=== PATIENT | male | born 1960 | race African-American/Black ===

== ENCOUNTER 2018-07-14 10:05 | Inpatient (IN) | payer MEDICAID ==
[2018-07-14] VITALS: BP 113/48
[~2018-07-14] VITALS: Ht 182.9 cm; Wt 83.9 kg
[~2018-07-14 10:05] MED LIST: AMIN30LI2 GT; ATEN25TA GT; DOCU100C36 GT; FOLI0.8T23 GT; NUT.237L67 GT; TRAM50TA2 GT
--- NOTE | 2018-07-14 10:16 | NUR ---
SOB ONSET 30 MINUTES INTO HEMO DIALYSIS. PT NON VERBAL, EYES OPEN, TROUBLE BREATHING & USING ACCESSORY MUSCLES. PT SEEN & EVAL'D BY DR. DE LEON. CONNECTED TO VENT RIGHT AWAY BY RT. PLACED ON UNDERWEAR FINISHER, ST & WILL CONT TO MONITOR.
[2018-07-14 10:28] LABS: BASOPHILS # (AUTO) 0.1 /CMM (0.0-0.2); BASOPHILS % (AUTO) 0.3 % (0.0-2.0); HEMATOCRIT 30 % (39-51); HEMOGLOBIN 9.4 g/dL (13.5-17.5); LYMPHOCYTES # (AUTO) 0.7 /CMM (0.8-4.8); LYMPHOCYTES % (AUTO) 2.3 % (20.0-44.0); MEAN CORPUSCULAR HGB CONC 31 g/dl (31.0-36.0); MEAN CORPUSCULAR VOLUME 93 fL (80-96); MONOCYTES # (AUTO) 3.1 /CMM (0.1-1.30); MONOCYTES % (AUTO) 10.6 % (2.0-12.0); NEUTROPHILS # (AUTO) 25.4 /CMM (1.8-8.9); NEUTROPHILS % (AUTO) 86.8 % (43.0-81.0); PLATELET COUNT (AUTO) 362 /CMM (150-450); RED BLOOD CELL COUNT(AUTO) 3.24 MIL/uL (4.5-6.0); WHITE BLOOD COUNT (AUTO) 29.3 K/uL (4.3-11.0)
[2018-07-14] MEDS ORDERED: VANCOMYCIN 1 GM in IV D5W 250 ML IV ONE (10:30)
[2018-07-14] MEDS ORDERED: ACETAMINOPHEN 650 MG/SUPP.RECT RC ONE ×2 (10:30)
[2018-07-14] MEDS ORDERED: PIPERACILLIN /TAZOBACTAM 3.375 G in IV D5W 50 ML IV ONE (10:30)
[2018-07-14] MEDS ORDERED: ALBUTEROL FS 2.5 MG/3 ML VIAL.NEB CONTNEB ONE (10:30)
[2018-07-14] MEDS ORDERED: BENZOIN COMPOUND TINCT 60 ML BOTTLE ONE (10:32)
[2018-07-14 10:35] LABS: CALCIUM, SERUM 8.6 mg/dL (8.5-10.1); CARBON DIOXIDE 21 mmol/L (21-32); CHLORIDE 99 mmol/L (98-107); CREATININE 5.2 mg/dL (0.6-1.3); GLUCOSE 122 mg/dL (74-106); SODIUM SERUM 133 mmol/L (136-145); UREA NITROGEN, BLOOD 76 mg/dL (7-18)
[2018-07-14 10:39] VITALS: BP 129/67
[2018-07-14 10:42] LABS: ALANINE AMINOTRANSFERASE 40 U/L (12-78); ALBUMIN 2.4 g/dL (3.4-5.0); ALKALINE PHOSPHATASE 103 U/L (46-116); ASPARTATE AMINOTRANSFERASE 24 U/L (15-37); BILIRUBIN,DIRECT 0.1 mg/dL (0.0-0.2); BILIRUBIN,TOTAL 0.4 mg/dL (0.2-1.0); TOTAL PROTEIN, SERUM 7.7 g/dL (6.4-8.2)
--- NOTE | 2018-07-14 10:42 | NUR ---
PT REC'D TRACHED VIA PORTEX 8 ON BVM @ 15LPM, [facility] ON NOTED SETTINGS PER TRANSPORT RT. NO RESP DISTRESS OR SOB NOTED. SX'D FOR SCANT AMT OF CLEAR SECRETIONS. TRACH PATENT AND SECURED. ALARMS ARE SET AND AUDIBLE. VENT PLUGGED INTO RED OUTLET. AMBU BAG BEDSIDE. WILL CONTINUE TO MONITOR Addendum: 07/14/18 at 1046 by EFRAIN PATTERSON RT Amended: Links added.
--- NOTE | 2018-07-14 10:45 | NUR ---
PT GETTING BREATHING TX, PT HAYDEE WELL. NO RESP DISTRESS NOTED @ THIS TIME.
[2018-07-14] MEDS ORDERED: ALBUTEROL FS 2.5 MG/3 ML VIAL.NEB ONE (10:47)
--- NOTE | 2018-07-14 10:48 | NUR ---
XRAY AT BEDSIDE
--- NOTE | 2018-07-14 11:01 | NUR ---
PAGED RUBENS [phone]
--- NOTE | 2018-07-14 11:03 | NUR ---
DR DE LEON ON PHONE WITH DR ART FOR ADMISSION
--- NOTE | 2018-07-14 11:19 | NUR ---
PT GETTING TREATED FOR C. DIFF, NO DIARRHEA @ THIS TIME.
--- NOTE | 2018-07-14 11:26 | NUR ---
RM 118-1 TELE
[2018-07-14 11:35] VITALS: BP 120/72
[2018-07-14] MEDS ORDERED: BLOO-668 IN (11:37)
[2018-07-14] MEDS ORDERED: OMEP40CA37 GT (11:37)
[2018-07-14] MEDS ORDERED: SEVE0.8P3 GT (11:37)
[2018-07-14] MEDS ORDERED: SUCR1ORA GT (11:37)
[2018-07-14] MEDS ORDERED: POTA20LI4 GT (11:37)
[2018-07-14] MEDS ORDERED: HYDR-4075 PO (11:37)
[2018-07-14] MEDS ORDERED: IPRA3AMP23 IH ×2 (11:37)
[2018-07-14] MEDS ORDERED: ACET-868 GT (11:37)
[2018-07-14] MEDS ORDERED: ACID1TAB12 GT (11:37)
[2018-07-14] MEDS ORDERED: METO5SOL GT (11:37)
[2018-07-14] MEDS ORDERED: INSU100V3 SQ (11:37)
--- NOTE | 2018-07-14 11:47 | NUR ---
PT RESTING COMFORTABLY, RR EVEN & UNLABORED, NO RESP DISTRESS NOTED @ THIS TIME. WILL CONT TO MONITOR.
--- NOTE | 2018-07-14 12:12 | NUR ---
PAGED DR ART, DR LÓPEZ NURSE SUBSTANCE ABUSE
--- NOTE | 2018-07-14 12:30 | NUR ---
REPORT GIVEN TO LON SANDERS FOR CONT OF CARE.
[2018-07-14] MEDS ORDERED: FEE PK DOSING 1 MIN EA MC ONE (13:24)
[2018-07-14 13:30] VITALS: BP 105/60
--- NOTE | 2018-07-14 13:30 | NUR ---
RN NOTE PT ARRIVED TO [facility] ON BED, ON MECH VENT, ON TELEMETRY SINUS TACHYCARDIA, 98, NO VERBAL RESPONSE, OPENS EYES, DOES NOT TRACK, ABLE SQUEEZE WITH RIGHT HAND, LEFT SIDE IS FLACCID, TRACH PORTEX 8, IN PLACE, ON MECH VENT, G TUBE INTACT, R CHEST WALL HD CATHETER, IV IN R HAND, INTACT, CLEAN AND DRY. PT HAS WOUND ON SACRUM, AND L LATERAL FOOT DTI, SAFETY MEASURES AND ISOLATION PRECAUTIONS IN PLACE, CALL LIGHT WITHIN REACH, VS STABLE EXCEPT FOR FEVER 100.5. COOLING MEASURES INITIATED.
[2018-07-14] MEDS ORDERED: NEPRO 1,000 ML BOTTLE GT PRN (14:30)
[2018-07-14] MEDS ORDERED: IPRATROPIUM NEB FS 0.5 MG/2.5 ML AMPUL.NEB NEB PRN (15:00)
[2018-07-14] MEDS: VIT B CMPLX 3/FA/VIT C/BIOTIN 1 TAB TABLET GT SCH (15:14)
[2018-07-14] MEDS: ACETAMINOPHEN 650 MG/20.3 ML UDC GT PRN (15:14)
[2018-07-14 16:00] VITALS: BP 101/63
[2018-07-14] MEDS: ATENOLOL 25 MG TABLET GT SCH (17:00)
[2018-07-14] MEDS: DOCUSATE SODIUM LIQ 100 MG/10 ML UDC GT SCH (17:24)
[2018-07-14] MEDS: SEVELAMER CARBONATE 0.8 GM POWD.PACK GT SCH (17:24)
[2018-07-14] MEDS: TRAMADOL HCL 50 MG TABLET GT SCH (17:24)
[2018-07-14] MEDS: BLOOD SUGAR DIAGNOSTIC 1 EACH STRIP IN SCH (17:25)
[2018-07-14] MEDS: NEPRO 1,000 ML BOTTLE GT PRN (17:25)
[2018-07-14] MEDS: PROSTAT (PYXIS) 30 ML UDC GT SCH (17:30)
[2018-07-14] MEDS ORDERED: ALBUTEROL 2.5 MG/3 ML NEB PRN (19:30)
[2018-07-14 20:00] VITALS: BP 100/54
[2018-07-14] MEDS: IPRATROPIUM NEB FS 0.5 MG/2.5 ML AMPUL.NEB NEB SCH (20:31)
[2018-07-14] MEDS: ALBUTEROL FS 2.5 MG/3 ML VIAL.NEB NEB SCH (20:31)
[2018-07-14] MEDS ORDERED: PIPERACILLIN /TAZOBACTAM 2.25 G in IV D5W 50 ML IV SCH (21:00)
[2018-07-14] MEDS ORDERED: METOCLOPRAMIDE HCL 5 MG/5 ML UDC GT SCH (21:00)
--- NOTE | 2018-07-14 22:00 | NUR ---
sylvia rn notes pts was turned and reposition , routined care rendered , suction secretion done and prn will continue to monitor pts..
[2018-07-14] MEDS: ACIDOPHILUS/BULGARICUS 1 EACH TAB.CHEW GT SCH (22:12)
[2018-07-14] MEDS: SUCRALFATE 1 G/10 ML UDC GT SCH (22:12)
[2018-07-14] MEDS: MEROPENEM 500 MG in IV NS 0.9% 50 ML IV SCH (22:12)
[2018-07-14] MEDS: METRONIDAZOLE 500 MG TABLET PO SCH (22:13)
[2018-07-14] MEDS: PANTOPRAZOLE 40 MG/PACK PACK GT SCH (22:13)
[2018-07-14] MEDS ORDERED: METOCLOPRAMIDE HCL 10 MG/10 ML UDC ONE (22:41)
--- NOTE | 2018-07-14 22:51 | NUR ---
reglan 5mg unable to scan d/t reglan 5mg/5ml is out of stock in the onnicel override reglan 10mg/10ml , waste 5mg
[2018-07-15] VITALS: BP 113/48
--- NOTE | 2018-07-15 | NUR ---
sylvia rn notes blood sugar for 12mn is 112mg /dl no coverage given per sliding scale.
[2018-07-15] MEDS: BLOOD SUGAR DIAGNOSTIC 1 EACH STRIP IN SCH ×4 (00:21→22:57)
[2018-07-15] MEDS: INSULIN REGULAR, HUMAN 100 UNIT/ML 3 ML VIAL SQ PRN ×3 (00:23→12:49)
[2018-07-15] MEDS: ACETAMINOPHEN 650 MG/20.3 ML UDC GT PRN ×4 (01:34→22:41)
[2018-07-15] MEDS: IPRATROPIUM NEB FS 0.5 MG/2.5 ML AMPUL.NEB NEB SCH ×5 (02:03→19:57)
[2018-07-15] MEDS: ALBUTEROL FS 2.5 MG/3 ML VIAL.NEB NEB SCH ×5 (02:03→19:57)
--- NOTE | 2018-07-15 03:12 | NUR ---
sylvia rn notes received pts in bed with eye opening , on vent dependent with ac setting will tolerated , hob elevated for aspiration precaution .suction secretion done q 2hrs and prn no sob no distress noted , breathing even and unlabored, v/s stable afebrile ,due meds given as ordered , with gt feeding nephro at 50cc/hr no residual noted at this time, all due meds given as ordered, turned and repositioned q 2 hrs and prn v/s stable and afebrile. will continue to monitor -pts. kept pts clean dry and comfortable.
[2018-07-15 04:00] VITALS: BP 107/54
[2018-07-15] MEDS: METRONIDAZOLE 500 MG TABLET PO SCH ×3 (05:05→21:10)
--- NOTE | 2018-07-15 06:00 | NUR ---
sylvia rn notes blood sugar for 6am is 86mg/dl no coverage given per sliding scale.
--- NOTE | 2018-07-15 06:37 | NUR ---
sylvia rn notes pts in bed responsive remains on vent AC settings well tolerated by pts no sob no distress noted gt feeding well tolerated no residual noted v/s stable afebrile will endorse to rn day shift for continuity of care v/s stable afebrile pts is currenty on dialysis tx, hd nurse at bedside.
--- NOTE | 2018-07-15 07:15 | NUR ---
RIMMA RN AM NOTES PT IN BED, WITH PORTEX 8 TO MECHANICAL VENTILATION, SETTINGS ORDERED, O2 SAT 100%, BREATHING EVEN AND UNLABORED, ST WITH HR 114 ON MONITOR, NO SIGNS OF PAIN OR DISCOMFORT AT THIS TIME, RIGHT HAND G22 AND RIGHT CHEST LEILANI CATH, CDI DRESSING, BOTH SITES CLEAR, ONGOING HD, WITH NEPHRO 65ML/HR, GT PLACEMENT CHECKED, 0 RESIDUAL, BEDBOUND, NEEDS ASSIST IN TURNING AND REPOSITIONING Q2HRS, SEE NURSING FLOW SHEET FOR SKIN ISSUES, CALL LIGHT WITHIN REACH, BED LOCKED AND LOW, SRUX2, WILL CONTINUE TO MONITOR.
[2018-07-15 07:31] LABS: BASOPHILS % (AUTO) 0.2 % (0.0-2.0); HEMATOCRIT 28 % (39-51); HEMOGLOBIN 8.7 g/dL (13.5-17.5); LYMPHOCYTES % (AUTO) 4.1 % (20.0-44.0); MEAN CORPUSCULAR HGB CONC 32 g/dl (31.0-36.0); MEAN CORPUSCULAR VOLUME 91 fL (80-96); MONOCYTES # (AUTO) 3.4 /CMM (0.1-1.30); MONOCYTES % (AUTO) 13.5 % (2.0-12.0); NEUTROPHILS # (AUTO) 20.8 /CMM (1.8-8.9); NEUTROPHILS % (AUTO) 82.2 % (43.0-81.0); PLATELET COUNT (AUTO) 323 /CMM (150-450); RED BLOOD CELL COUNT(AUTO) 3.01 MIL/uL (4.5-6.0); WHITE BLOOD COUNT (AUTO) 25.2 K/uL (4.3-11.0)
[2018-07-15 08:00] VITALS: BP 112/59
[2018-07-15 08:02] LABS: CREATININE 5.3 mg/dL (0.6-1.3); POTASSIUM 3.6 mmol/L (3.5-5.1)
--- NOTE | 2018-07-15 08:10 | NUR ---
RT NOTE: RESPIRATORY TREATMENT DEFERRED DUE TO ELEVATED HR.
[2018-07-15] MEDS: SEVELAMER CARBONATE 0.8 GM POWD.PACK GT SCH ×3 (08:39→17:38)
[2018-07-15] MEDS: DOCUSATE SODIUM LIQ 100 MG/10 ML UDC GT SCH ×2 (08:39→17:00)
[2018-07-15] MEDS: ACIDOPHILUS/BULGARICUS 1 EACH TAB.CHEW GT SCH ×2 (08:39→21:09)
[2018-07-15] MEDS: MEROPENEM 500 MG in IV NS 0.9% 50 ML IV SCH ×2 (08:39→20:09)
[2018-07-15] MEDS: SUCRALFATE 1 G/10 ML UDC GT SCH ×2 (08:39→21:09)
[2018-07-15] MEDS: TRAMADOL HCL 50 MG TABLET GT SCH ×2 (08:40→17:38)
[2018-07-15] MEDS: PANTOPRAZOLE 40 MG/PACK PACK GT SCH ×2 (08:40→21:10)
[2018-07-15] MEDS ORDERED: METOCLOPRAMIDE HCL 10 MG/10 ML UDC GT SCH (09:00)
[2018-07-15] MEDS: PROSTAT (PYXIS) 30 ML UDC GT SCH ×2 (10:19→17:41)
[2018-07-15] MEDS: METOCLOPRAMIDE HCL 10 MG/10 ML UDC GT SCH ×2 (10:46→21:10)
--- NOTE | 2018-07-15 11:07 | NUR ---
RIMMA RN NOTES DR. RUTLEDGE NOTIFIED ABOUT BLOOD CULTURE POSITIVE FOR GRAM NEGATIVE RODS. ALSO ABOUT ELEVATED TEMPERATURE AT 102 DEG. PER MD TO APPLY COOLING MEASURES.
--- NOTE | 2018-07-15 11:30 | NUR ---
RIMMA RN NOTES ACCUCHECK DONE. BS 145 MG/DL, 2UNITS HUM R GIVEN PER SS.
[2018-07-15 12:00] VITALS: BP 91/49
[2018-07-15] MEDS ORDERED: IV NS 0.9% 250 ML BAG IV ONE (12:00)
[2018-07-15] MEDS ORDERED: DEXTROSE 50%-WATER 50 ML DISP.SYRIN IV PRN (12:30)
[2018-07-15] MEDS ORDERED: VANCOMYCIN 1 GM in IV D5W 250 ML IV ONE (13:00)
[2018-07-15] MEDS: POTASSIUM CHLORIDE 20 MEQ POWDER PACKET GT SCH (13:14)
[2018-07-15] MEDS: VIT B CMPLX 3/FA/VIT C/BIOTIN 1 TAB TABLET GT SCH (13:15)
[2018-07-15] MEDS: DAKINS QUARTER STRENGTH (0.125%) 480 ML BOTTLE TOP SCH ×2 (14:40→21:10)
[2018-07-15 16:00] VITALS: BP_SYST 108; BP_SYST 91; BP_DIAS 51; BP_DIAS 71
[2018-07-15] MEDS ORDERED: VANCOMYCIN 500 MG in IV D5W 100 ML IV PRN (16:00)
[2018-07-15] MEDS ORDERED: IV NS 0.9% 500 ML IV ONE (16:30)
[2018-07-15] MEDS: ATENOLOL 25 MG TABLET GT SCH (17:00)
--- NOTE | 2018-07-15 17:14 | NUR ---
[facility]IMMA RN NOTES ACCUCHECK DONE, BS 129 MG/DL, NO INSULIN COVERAGE GIVEN.
[2018-07-15] MEDS ORDERED: BLOOD SUGAR DIAGNOSTIC 1 EACH STRIP IN SCH ×2 (17:30→22:00)
--- NOTE | 2018-07-15 17:40 | NUR ---
PT RECEIVED ON MECHANICAL VENT. NO RESP DISTRESS OR SOB NOTED AT THIS TIME. SUCTIONED PT: MOD THICK SOMMER SECRETIONS. BREATHING TX GIVEN, NO ADVERSE REACTIONS NOTED. VENT IS PLUGGED INTO RED OUTLET. VENT ALARMS ARE ON AND AUDIBLE. AMBU BAG IS AT BEDSIDE. WILL CONT TO MONITOR PT. Addendum: 07/15/18 at 1741 by MICHELLE BLANCO RT Amended: Links added.
--- NOTE | 2018-07-15 18:43 | NUR ---
[facility] RN CLOSING NOTES PT IN BED, WITH PORTEX 8 TO MECHANICAL VENTILATION, SETTINGS ORDERED, O2 SAT 100%, BREATHING EVEN AND UNLABORED, ST WITH HR 106 ON MONITOR, NO SIGNS OF PAIN OR DISCOMFORT AT THIS TIME, RIGHT HAND G22 AND RIGHT CHEST LEILANI CATH, CDI DRESSING, BOTH SITES CLEAR, ONGOING HD, WITH NEPHRO 65ML/HR, GT PLACEMENT CHECKED, 0 RESIDUAL, BEDBOUND, TURNED AND REPOSITIONED Q2HRS, PM CARE DONE, CALL LIGHT WITHIN REACH, BED LOCKED AND LOW, SRUX2, WILL ENDORSE TO NEXT SHIFT FOR DENNIS.
--- NOTE | 2018-07-15 19:45 | NUR ---
RIMMA/TECHNICAL ARCHITECT RECEIVED REPORT FROM DAY NURSE. SEE FLOWSHEET FOR ASSESSMENT AND SKIN ISSUES WHICH ARE ADDRESSED HERE ALONG WITH THE INTERVENTIONS AND EXPECTED OUTCOMES. PT WAS TURNED AND REPOSITIONED FOR COMFORT AND CARE, WILL CONTINUE TO MONITOR THIS PT. NO ACUTE DISTRESS SEEN AT THIS TIME.
[2018-07-15 20:00] VITALS: BP 106/53
--- NOTE | 2018-07-15 22:00 | NUR ---
[facility]MA/ECONOMIC ANALYST FLACC SCALE RATED PAIN AT 4/10, GAVE TYLENOL VIA G/TUBE. PT WAS TURNED AND REPOSITIONED FOR COMFORT AND CARE. WILL CONTINUE TO MONITOR THIS PT.
[2018-07-15] MEDS: NEPRO 1,000 ML BOTTLE GT PRN (22:57)
--- NOTE | 2018-07-15 23:20 | NUR ---
[facility]/METAL PAINTER PT'S BLOOD SUGAR IS 112, THERE IS NO COVERAGE FOR THIS PER SLIDING SCALE AND MD ORDERS. WILL CONTINUE TO MONITOR THE SUGARS ORDERED BY MD. PT WAS THEN TURNED AND REPOSITIONED FOR COMFORT AND CARE. WILL CONTINUE TO MONITOR THIS PT.
[2018-07-16] VITALS: BP_SYST 111; BP_SYST 113; BP_DIAS 57; BP_DIAS 65
[2018-07-16] MEDS: ALBUTEROL FS 2.5 MG/3 ML VIAL.NEB NEB SCH ×4 (00:47→19:27)
[2018-07-16] MEDS: IPRATROPIUM NEB FS 0.5 MG/2.5 ML AMPUL.NEB NEB SCH ×4 (00:48→19:27)
--- NOTE | 2018-07-16 02:00 | NUR ---
[facility]/LEAD GENERATION REPRESENTATIVE PT WAS GIVEN AM CARE AT THIS TIME ALONG WITH ORAL CARE. PT REMAINS ON CURRENT VENT SETTINGS WITH SATURATION AT 98-100%. PT WAS TURNED AND REPOSITIONED FOR COMFORT AND CARE. WILL CONTINUE TO MONITOR THIS PT. PT APPEARS TO BE RESTING COMFORTABLE WITH NO ACUTE DISTRESS SEEN AT THIS TIME.
[2018-07-16 04:00] VITALS: BP 109/56
[2018-07-16] MEDS: METRONIDAZOLE 500 MG TABLET PO SCH ×3 (04:29→20:31)
[2018-07-16] MEDS: BLOOD SUGAR DIAGNOSTIC 1 EACH STRIP IN SCH ×4 (05:10→23:54)
--- NOTE | 2018-07-16 05:17 | NUR ---
[facility]/SALES AND MERCHANDISING ASSOCIATE PT'S BLOOD SUGAR IS 91, THERE IS NO COVERAGE GOT THIS PER SLIDING SCALE AND MD ORDERS. WILL CONTINUE TO MONITOR THE SUGARS ORDERED BY MD. PT WAS THEN TURNED AND REPOSITIONED FOR COMFORT AND CARE.
[2018-07-16] MEDS: ACETAMINOPHEN 650 MG/20.3 ML UDC GT PRN (06:44)
--- NOTE | 2018-07-16 06:45 | NUR ---
[facility]/INSURANCE MANAGER FLACC SCALE RATED PAIN AT 4/10, GAVE TYLENOL VIA G/TUBE. ALSO PT'S AM LABS WERE DRAWN, AWAIT FOR ANY ABNORMAL RESULTS. PT WAS TURNED AND REPOSITIONED FOR COMFORT AND CARE.
[2018-07-16 07:26] LABS: BASOPHILS % (AUTO) 0.1 % (0.0-2.0); EOSINOPHILS % (AUTO) 0.3 % (0.0-6.0); HEMATOCRIT 25 % (39-51); LYMPHOCYTES # (AUTO) 1.1 /CMM (0.8-4.8); LYMPHOCYTES % (AUTO) 5.5 % (20.0-44.0); MEAN CORPUSCULAR HGB CONC 32 g/dl (31.0-36.0); MEAN CORPUSCULAR VOLUME 92 fL (80-96); MONOCYTES % (AUTO) 15.2 % (2.0-12.0); NEUTROPHILS # (AUTO) 15.5 /CMM (1.8-8.9); NEUTROPHILS % (AUTO) 78.9 % (43.0-81.0); PLATELET COUNT (AUTO) 328 /CMM (150-450); RED BLOOD CELL COUNT(AUTO) 2.76 MIL/uL (4.5-6.0); WHITE BLOOD COUNT (AUTO) 19.6 K/uL (4.3-11.0)
--- NOTE | 2018-07-16 07:30 | NUR ---
[facility]IMMA RN AM NOTES PT IN BED, WITH PORTEX 8 TO MECHANICAL VENTILATION, SETTINGS ORDERED, O2 SAT 100%, BREATHING EVEN AND UNLABORED, ST WITH HR 114 ON MONITOR, NO SIGNS OF PAIN OR DISCOMFORT AT THIS TIME, RIGHT HAND G22 AND RIGHT CHEST LEILANI CATH, CDI DRESSING, BOTH SITES CLEAR, ONGOING HD, WITH NEPHRO 65ML/HR, GT PLACEMENT CHECKED, 0 RESIDUAL, BEDBOUND, NEEDS ASSIST IN TURNING AND REPOSITIONING Q2HRS, SEE NURSING FLOW SHEET FOR SKIN ISSUES, CALL LIGHT WITHIN REACH, BED LOCKED AND LOW, SRUX2, WILL CONTINUE TO MONITOR. Addendum: 07/16/18 at 0956 by LUCILA PATEL RN SR WITH HR 98 ON MONITOR, NEPRO AT 50 ML/HR.
[2018-07-16 07:33] LABS: ALBUMIN 2.1 g/dL (3.4-5.0); BILIRUBIN,TOTAL 0.4 mg/dL (0.2-1.0); CALCIUM, SERUM 9.2 mg/dL (8.5-10.1); CREATININE 6.1 mg/dL (0.6-1.3); MAGNESIUM 2.9 mg/dL (1.8-2.4); PHOSPHORUS 2.4 mg/dL (2.5-4.9); POTASSIUM 3.8 mmol/L (3.5-5.1); TOTAL PROTEIN, SERUM 7.3 g/dL (6.4-8.2)
[2018-07-16 08:00] VITALS: BP 98/59
[2018-07-16] MEDS: MEROPENEM 500 MG in IV NS 0.9% 50 ML IV SCH ×2 (08:15→23:10)
[2018-07-16] MEDS: SUCRALFATE 1 G/10 ML UDC GT SCH ×2 (08:38→20:31)
[2018-07-16] MEDS: METOCLOPRAMIDE HCL 10 MG/10 ML UDC GT SCH ×2 (08:38→20:31)
[2018-07-16] MEDS: PANTOPRAZOLE 40 MG/PACK PACK GT SCH ×2 (08:39→20:31)
[2018-07-16] MEDS: ACIDOPHILUS/BULGARICUS 1 EACH TAB.CHEW GT SCH ×2 (08:39→20:31)
[2018-07-16] MEDS: SEVELAMER CARBONATE 0.8 GM POWD.PACK GT SCH ×3 (08:39→16:46)
[2018-07-16] MEDS: TRAMADOL HCL 50 MG TABLET GT SCH ×2 (08:39→16:46)
[2018-07-16] MEDS: DOCUSATE SODIUM LIQ 100 MG/10 ML UDC GT SCH ×2 (08:39→16:51)
[2018-07-16] MEDS: PROSTAT (PYXIS) 30 ML UDC GT SCH ×2 (08:43→16:51)
[2018-07-16] MEDS: DAKINS QUARTER STRENGTH (0.125%) 480 ML BOTTLE TOP SCH ×2 (08:45→23:11)
--- NOTE | 2018-07-16 09:30 | NUR ---
RN NOTES DUE MEDS GIVEN. DR. RUTLEDGE AWARE OF BUN LEVEL 86. NNO. BP REMAINS TO BE FLUCTUATING AND LOW AT 98/59.
[2018-07-16 09:54] LABS: LYMPHOCYTES % (MANUAL) 7 % (16-48); MONOCYTES % (MANUAL) 11 % (0-11.0); NEUTROPHILS % (MANUAL) 82 (42-76)
[2018-07-16 12:00] VITALS: BP 92/63
[2018-07-16] MEDS ORDERED: EPOETIN ALFA (10,000 UNIT) 10,000 UNIT/ML VIAL IV ONE (12:00)
--- NOTE | 2018-07-16 12:00 | NUR ---
RIMMA RN NOTES ACCUCHECK DONE, BS 111 MG/DL, NO INSULIN COVERAGE GIVEN.
[2018-07-16] MEDS: VIT B CMPLX 3/FA/VIT C/BIOTIN 1 TAB TABLET GT SCH (13:07)
[2018-07-16] MEDS: POTASSIUM CHLORIDE 20 MEQ POWDER PACKET GT SCH (13:07)
[2018-07-16] MEDS ORDERED: NEUTRA PHOS 1 POWD.PACKET PO ONE (15:30)
[2018-07-16 16:00] VITALS: BP_SYST 105; BP_SYST 92; BP_DIAS 63; BP_DIAS 66
[2018-07-16] MEDS: ATENOLOL 25 MG TABLET GT SCH (16:46)
[2018-07-16] MEDS: NEPRO 1,000 ML BOTTLE GT PRN (16:50)
--- NOTE | 2018-07-16 17:02 | NUR ---
[facility] RN NOTES ACCUCHECK DONE, BS 114 MG/DL, NO INSULIN COVERAGE GIVEN.
--- NOTE | 2018-07-16 17:46 | NUR ---
RIMMA RN NOTES DR. RAMOS INFORMED THAT DR. MCFARLANE SPOKE WITH THE PT'S SON SIXTO EARLIER RE J TUBE PLACEMENT. HOWEVER, PATIENT'S SON STILL WISHES TO SPEAK TO HER. CASE MANAGEMENT CORAZON NEGRO AWARE THAT PT'S SON SPOKE WITH DR. MCFARLANE.
--- NOTE | 2018-07-16 18:39 | NUR ---
RIMMA RN CLOSING NOTES PT IN BED, WITH PORTEX 8 TO MECHANICAL VENTILATION, SETTINGS ORDERED, O2 SAT 100%, BREATHING EVEN AND UNLABORED, SR TO ST. ON MONITOR, NO SIGNS OF PAIN OR DISCOMFORT AT THIS TIME, RIGHT HAND G22 AND RIGHT CHEST LEILANI CATH, CDI DRESSING, BOTH SITES CLEAR, ONGOING HD, WITH NEPHRO 50ML/HR, GT PLACEMENT CHECKED, 0 RESIDUAL, BEDBOUND, TURNED AND REPOSITIONED Q2HRS, PM CARE AND PRESCRIBED WOUND TREATMENT DONE, FLEXISEAL IN PLACE. CALL LIGHT WITHIN REACH, BED LOCKED AND LOW, SRUX2, WILL ENDORSE TO NEXT SHIFT FOR DENNIS.
--- NOTE | 2018-07-16 19:10 | NUR ---
TD/RN INITIAL NOTES RECEIVED PT IN BED, OBTUNDED. WITH INTACT PORTEX #8, TOLERATING VENT SETTINGS: AC 14; TV 550, FIO2 40, PEEP 5. NO SOB NOTED. SR HR 90S ON TELEMONITOR. GTUBE INTACT AND IN PLACED, WITH ONGOING GTF NEPRO AT 50 ML/HR, TOLERATING WELL. HOB ELEVATED. (R)CHEST WALL HD CATH INTACT AND PATENT. (+) LAV SHUNT. WITH INTACT AND PATENT G22 HEPLOCK. FLEXISEAL IN PLACED. HD NURSE ON FLOOR, PER DEE DEE (HD NURSE) PT IS FOR HD TONIGHT. SAFETY MEASURES IN PLACED. WILL CONT TO MONITOR
[2018-07-16 20:00] VITALS: BP 126/74
--- NOTE | 2018-07-16 20:30 | NUR ---
RN NOTES PT ON HD, HD NURSE DEE DEE AT BEDSIDE. DUE 1999 MERREM WILL BE ADMINISTERED AFTER HD
--- NOTE | 2018-07-16 20:59 | NUR ---
RT NOTE RECEIVED PATIENT TRACH ON PB 840 WITH NOTED VENT SETTINGS.INLINE HHN TREATMENT WAS GIVEN, NO ADVERSE REACTION NOTED.PRN SUCTION WAS DONE.TRACH TUBE PATENT AND SECURED. ALARMS ON AND AUDIBLE. WILL CONTINUE TO MONITOR PATIENT. Addendum: 07/16/18 at 2101 by SOHAIL BAUTISTA RT Amended: Links added.
[2018-07-16 22:17] LABS: OCCULT BLOOD STOOL NEGATIVE (NEGATIVE)
[2018-07-16] MEDS ORDERED: VANCOMYCIN 1 GM VIAL ONE (23:56)
[2018-07-17] VITALS: BP 118/71
[2018-07-17] MEDS: ALBUTEROL FS 2.5 MG/3 ML VIAL.NEB NEB SCH ×4 (01:24→19:22)
[2018-07-17] MEDS: IPRATROPIUM NEB FS 0.5 MG/2.5 ML AMPUL.NEB NEB SCH ×4 (01:24→19:22)
[2018-07-17 04:00] VITALS: BP 119/73
[2018-07-17] MEDS: METRONIDAZOLE 500 MG TABLET PO SCH ×3 (05:11→20:19)
[2018-07-17] MEDS: BLOOD SUGAR DIAGNOSTIC 1 EACH STRIP IN SCH ×4 (06:31→23:19)
[2018-07-17 06:35] LABS: BASOPHILS % (AUTO) 0.4 % (0.0-2.0); EOSINOPHILS % (AUTO) 0.8 % (0.0-6.0); HEMATOCRIT 29 % (39-51); HEMOGLOBIN 8.9 g/dL (13.5-17.5); LYMPHOCYTES # (AUTO) 1.2 /CMM (0.8-4.8); LYMPHOCYTES % (AUTO) 9.9 % (20.0-44.0); MEAN CORPUSCULAR HGB CONC 31 g/dl (31.0-36.0); MEAN CORPUSCULAR VOLUME 91 fL (80-96); MONOCYTES # (AUTO) 1.6 /CMM (0.1-1.30); MONOCYTES % (AUTO) 13.7 % (2.0-12.0); NEUTROPHILS # (AUTO) 8.9 /CMM (1.8-8.9); NEUTROPHILS % (AUTO) 75.2 % (43.0-81.0); PLATELET COUNT (AUTO) 362 /CMM (150-450); RED BLOOD CELL COUNT(AUTO) 3.15 MIL/uL (4.5-6.0); WHITE BLOOD COUNT (AUTO) 11.8 K/uL (4.3-11.0)
[2018-07-17 06:51] LABS: CALCIUM, SERUM 9.2 mg/dL (8.5-10.1); POTASSIUM 4.1 mmol/L (3.5-5.1)
--- NOTE | 2018-07-17 07:05 | NUR ---
RN NOTES RECEIVED PT ON BED, OBTUNDED. VENT/ TRACH DEPENDENT , TOLERATING CURRENT VENT SETTING WELL, NO DISTRESS NOTED, PORTEX #8, TOLERATING VENT SETTINGS: AC 14; TV 550, FIO2 40, PEEP 5. ON TELE, ST HR IN 110' , FLEXISEAL DRAINING TO GRAVITY WITH LIGHT BROWN LOOSE STOOL , GTUBE INTACT AND IN PLACED, WITH ONGOING GTF NEPRO AT 50 ML/HR, TOLERATING WELL. HOB ELEVATED. (R)CHEST WALL HD CATH INTACT AND PATENT. L ARM AVS WITH (+) THRILL AND BRUIT, R HAND IV SITE G 22 CLEAN, DRY AND INTACT, SR UP X3, CALL LIGHT WITHIN EASY REACH, BED LOCKED AND IN LOWEST POSITION , SAFETY MEASURES IN PLACE. CONTINUE TO MONITOR.
--- NOTE | 2018-07-17 07:09 | NUR ---
RN NOTES PT IN STABLE CONDITION. NO ACUTE CHANGES THROUGHOUT SHIFT. NO SEIZURE EPISODE NOTED. SAFETY MEASURES AND ASPIRATION PRECAUTION MAINTAINED. ALL NEEDS ANTICIPATED. ENDORSED TO AM SHIFT RN FOR DENNIS
--- NOTE | 2018-07-17 07:45 | NUR ---
RN NOTES CALL RECEIVED FOR LAB REGRADING VANCO TROUGH 55 , PHARMACY NOTIFED .
--- NOTE | 2018-07-17 07:58 | NUR ---
RT NOTE RECEIVED PT MECHANICALLY VENTILATED VIA CUFFED PORTEX 8 TRACHEOSTOMY TUBE. CUFF INFLATED. TRACH TUBE MIDLINE AND SECURE. VENTILATOR SETTINGS PRESCRIBED. ALARMS SET PER PROTOCOL AND AUDIBLE. VENT PLUGGED IN TO RED OUTLET. AMBU BAG AT BED SIDE. NO DISTRESS NOTED. Addendum: 07/17/18 at 0800 by RADHA BAUTISTA RT Amended: Links added.
[2018-07-17 08:00] VITALS: BP 125/87
[2018-07-17] MEDS: MEROPENEM 500 MG in IV NS 0.9% 50 ML IV SCH ×2 (08:35→20:19)
[2018-07-17] MEDS: ACIDOPHILUS/BULGARICUS 1 EACH TAB.CHEW GT SCH ×2 (08:36→20:19)
[2018-07-17] MEDS: PANTOPRAZOLE 40 MG/PACK PACK GT SCH ×2 (08:36→20:19)
[2018-07-17] MEDS: SUCRALFATE 1 G/10 ML UDC GT SCH ×2 (08:36→20:19)
[2018-07-17] MEDS: TRAMADOL HCL 50 MG TABLET GT SCH ×2 (08:37→17:33)
[2018-07-17] MEDS: SEVELAMER CARBONATE 0.8 GM POWD.PACK GT SCH ×3 (08:37→17:33)
[2018-07-17] MEDS: DOCUSATE SODIUM LIQ 100 MG/10 ML UDC GT SCH ×3 (08:38→17:33)
[2018-07-17] MEDS: METOCLOPRAMIDE HCL 10 MG/10 ML UDC GT SCH ×2 (08:38→20:19)
[2018-07-17] MEDS: PROSTAT (PYXIS) 30 ML UDC GT SCH (08:42)
[2018-07-17] MEDS: DAKINS QUARTER STRENGTH (0.125%) 480 ML BOTTLE TOP SCH ×2 (08:43→20:21)
--- NOTE | 2018-07-17 08:48 | NUR ---
WOUND CARE CONSULT WOUND CARE RECEIVED CONSULT FOR SACRAL OPEN DEEP WOUND. WOUND CARE WILL DEFER CONSULT AND TREATMENT PLANS TO PLASTIC SURGICAL TEAM WHO ARE CURRENTLY FOLLOWING THIS PATIENT. PATIENT WITH LAMONTE AT 11, ALL PRESSURE ULCER PREVENTION MEASURES ARE NOTED TO BE IN PLACE. WILL SEE PRN.
[2018-07-17] MEDS ORDERED: EPOETIN ALFA (10,000 UNIT) 10,000 UNIT/ML VIAL IV SCH (10:30)
[2018-07-17 12:00] VITALS: BP 137/83
[2018-07-17] MEDS ORDERED: DOSE PER PHARMACY (MD SPECIFY MEDICATION) 1 EA XX PRN (12:00)
--- NOTE | 2018-07-17 12:00 | NUR ---
RN NOTES DR ART NOTIFED REGARDING VANCO TROUGH 49 , AND POSITIVE C-DIFF , NEW ORDER RECEIVED .
[2018-07-17] MEDS: VANCOMYCIN HCL 125 MG/2.5 ML ORAL.SUSP GT SCH ×3 (13:21→20:21)
[2018-07-17] MEDS ORDERED: VANCOMYCIN 1 GM in IV NS 0.9% 250 ML IV PRN (14:00)
[2018-07-17] MEDS: POTASSIUM CHLORIDE 20 MEQ POWDER PACKET GT SCH (14:14)
[2018-07-17] MEDS: VIT B CMPLX 3/FA/VIT C/BIOTIN 1 TAB TABLET GT SCH (14:15)
[2018-07-17 16:00] VITALS: BP 141/76
[2018-07-17] MEDS: ATENOLOL 25 MG TABLET GT SCH (17:32)
[2018-07-17] MEDS: NEPRO 1,000 ML BOTTLE GT PRN (17:50)
--- NOTE | 2018-07-17 18:00 | NUR ---
RN NOTES PT STABLE , TOLERATING TF WELL, NO SIGNIFICANT CHANGES NOTED ON THIS SHIFT, WILL ENDOSE TO SPANISH INTERPRETER/TRANSLATOR NURSE FOR CONTINUITY OF CARE.
--- NOTE | 2018-07-17 19:29 | NUR ---
RT PT RECEIVED TRACHED ON [facility] VENT ON CHARTED SETTINGS. NO SIGNS OF RESP DISTRESS NOTED AT THIS TIME. SITE LEASING AGENT CHECKED. PT SUCTIONED. PT GIVEN HHN TX. NO ADVERSE REACTIONS. ALARMS SET AND AUDIBLE. AMBUBAG AND BACK UP TRACH AT BEDSIDE. VENT CONNECTED TO RED OUTLET. WILL CONT TO MONITOR. Addendum: 07/17/18 at 1932 by KATIE ALEXANDER RT Amended: Links added.
[2018-07-17 20:00] VITALS: BP 103/58
--- NOTE | 2018-07-17 21:49 | NUR ---
TD RN NOTES RECEIVED PT ON BED. A/O X 1. ON MECH VENT SETTING SATURATING WELL. ON TELE MONITOR ST 100. ON FLEXISEAL DRAINING WELL. GTUBE FEEDING RUNNING @ 50CC/HR NO RESIDUAL NOTED. HEAD OF BED ELEVATED. SIDE RAILS UP. CALL LIGHT WITHIN REACH. BED ALARM ON. WILL CONTINUE TO MONITOR PT CLOSELY.
[2018-07-18] VITALS (7 sets, daily range): BP systolic 98–116; BP diastolic 58–74
[2018-07-18] MEDS: ALBUTEROL FS 2.5 MG/3 ML VIAL.NEB NEB SCH ×4 (02:02→19:18)
[2018-07-18] MEDS: IPRATROPIUM NEB FS 0.5 MG/2.5 ML AMPUL.NEB NEB SCH ×4 (02:03→19:18)
[2018-07-18] MEDS: BLOOD SUGAR DIAGNOSTIC 1 EACH STRIP IN SCH ×3 (05:19→18:21)
[2018-07-18] MEDS: METRONIDAZOLE 500 MG TABLET PO SCH ×3 (05:19→20:09)
[2018-07-18 06:45] LABS: CALCIUM, SERUM 9.5 mg/dL (8.5-10.1); CREATININE 4.9 mg/dL (0.6-1.3); POTASSIUM 4.7 mmol/L (3.5-5.1)
--- NOTE | 2018-07-18 07:08 | NUR ---
TD RN NOTES NO ACUTE CHANGES NOTED THROUGHOUT THE SHIFT. PROVIDED COMFORT AND SAFETY. DUE MEDS GIVEN. WILL ENDORSE TO THE AM NURSE FOR CONTINUITY OF CARE.
--- NOTE | 2018-07-18 07:45 | NUR ---
RIMMA RN NOTES PT IN BED, TRACH WITH VENT SETTING ORDERED, PT ALERTX1 OPENS EYES WHEN YOU CALL HIS NAME, ON TELE MONITOR SR WITH HR 90, PT HAS FLEXISEAL RECTAL TUBE WITH BROWN LIQUID STOOL NOTED, PT HAS GTUBE FEEDING AT 50CC PER HR, KEEP HOB ELEVATED, RCW LEILANI CATH IN PLACE, DEBBIE AV SHUNT WITH BRUIT SOUND, RH IV HEPLOCK INTACT, TRACH SUCTIONED, AMBUBAG AT BEDSIDE, BED LOCKED IN LOW POSITION, CALL LIGHT WITHIN REACH, WILL CONTINUE TO MONITOR.
[2018-07-18] MEDS: SEVELAMER CARBONATE 0.8 GM POWD.PACK GT SCH ×3 (08:46→17:50)
[2018-07-18] MEDS: SUCRALFATE 1 G/10 ML UDC GT SCH ×2 (08:46→20:09)
[2018-07-18] MEDS: METOCLOPRAMIDE HCL 10 MG/10 ML UDC GT SCH ×2 (08:46→20:08)
[2018-07-18] MEDS: MEROPENEM 500 MG in IV NS 0.9% 50 ML IV SCH ×2 (08:47→20:08)
[2018-07-18] MEDS: PANTOPRAZOLE 40 MG/PACK PACK GT SCH ×2 (08:47→20:11)
[2018-07-18] MEDS: VANCOMYCIN HCL 125 MG/2.5 ML ORAL.SUSP GT SCH ×4 (08:47→20:08)
[2018-07-18] MEDS: PROSOURCE / PROSTAT (PYXIS) 30 ML UDC GT SCH ×2 (08:53→17:27)
[2018-07-18] MEDS: DAKINS QUARTER STRENGTH (0.125%) 480 ML BOTTLE TOP SCH ×2 (09:01→20:09)
[2018-07-18] MEDS: TRAMADOL HCL 50 MG TABLET GT SCH ×2 (09:01→17:50)
[2018-07-18] MEDS: ACIDOPHILUS/BULGARICUS 1 EACH TAB.CHEW GT SCH ×2 (09:01→20:08)
--- NOTE | 2018-07-18 09:13 | NUR ---
sylvia rn note dr santos at bedside aware that patient still has trach secretion, will f\u
--- NOTE | 2018-07-18 09:31 | NUR ---
RIMMA RN NOTES HOLD COLACE AT THIS TIME PT HAS LOOSE STOOL
--- NOTE | 2018-07-18 11:24 | NUR ---
CHARGE NOTES TRANSFER TO TELE PER DR. CHILDERS
--- NOTE | 2018-07-18 12:12 | NUR ---
DRY ROOM ATTENDANT NOTES RT AT BEDSIDE, TX DONE, CHECKED AND FLUSHED FLEXISEAL RECTAL TUBE, HD WILL BE SOON
[2018-07-18] MEDS: POTASSIUM CHLORIDE 20 MEQ POWDER PACKET GT SCH (13:21)
[2018-07-18] MEDS: VIT B CMPLX 3/FA/VIT C/BIOTIN 1 TAB TABLET GT SCH (13:54)
--- NOTE | 2018-07-18 15:25 | NUR ---
HULL BUILDER NOTES DIALYSIS NURSE AT BEDSIDE, HD STARTED.
[2018-07-18] MEDS: DOCUSATE SODIUM LIQ 100 MG/10 ML UDC GT SCH (17:00)
[2018-07-18] MEDS: ATENOLOL 25 MG TABLET GT SCH (17:49)
--- NOTE | 2018-07-18 18:19 | NUR ---
TELE RNNNOTE HD COMPLETED 1LOF FLUIDS REMOVED BP 115/62 HR 93
--- NOTE | 2018-07-18 18:43 | NUR ---
PERSONAL COUNSELOR NOTES CONTINUE ON GTUBE FEEDING, CONTINUE TRACH VENT SETTING, TRACH SUCTION DONE, WILL CONTINUE TO MONITOR CLOSELY.
[2018-07-18] MEDS: NEPRO 1,000 ML BOTTLE GT PRN (18:46)
[2018-07-18] MEDS ORDERED: VANCOMYCIN 500 MG in IV D5W 100 ML IV PRN (20:00)
--- NOTE | 2018-07-18 21:18 | NUR ---
RT PATIENT REC'D TRACHED ON [facility] VENT WITH ORDERED SETTINGS HAYDEE WELL. VENT ALARMS CHECKED + AUDIBLE. CUFF PRESSURE CHECKED HEAT TREATMENT TECHNICIAN. TRACH SECURE AND IN PROPER POSITION. PATIENT AIRWAY SUCTIONED AND PATENT. SMALL AMT OF SOMMER SEMITHICK SECRETIONS. B/S DIM COARSE. AMBU BAG AT [facility]. Addendum: 07/18/18 at 2118 by RICARDO PHELPS RT Amended: Links added.
[2018-07-19] VITALS (9 sets, daily range): BP systolic 96–126; BP diastolic 61–75
[2018-07-19] MEDS: BLOOD SUGAR DIAGNOSTIC 1 EACH STRIP IN SCH ×5 (00:55→23:27)
[2018-07-19] MEDS: ALBUTEROL FS 2.5 MG/3 ML VIAL.NEB NEB SCH ×4 (01:12→19:50)
[2018-07-19] MEDS: IPRATROPIUM NEB FS 0.5 MG/2.5 ML AMPUL.NEB NEB SCH ×4 (01:12→19:50)
[2018-07-19] MEDS: METRONIDAZOLE 500 MG TABLET PO SCH ×3 (05:29→20:36)
--- NOTE | 2018-07-19 07:20 | NUR ---
report received from Manolo RN; pt remains on mechanical ventilator via trache with occasional , nonpurposeful movement of Right upper extremity; non-interactive and not following commands; TF ongoing; appears calm and comfortable
[2018-07-19 07:47] LABS: CALCIUM, SERUM 9.5 mg/dL (8.5-10.1); CREATININE 5.4 mg/dL (0.6-1.3); POTASSIUM 4.5 mmol/L (3.5-5.1)
[2018-07-19] MEDS: MEROPENEM 500 MG in IV NS 0.9% 50 ML IV SCH ×2 (08:33→19:46)
[2018-07-19] MEDS: ACIDOPHILUS/BULGARICUS 1 EACH TAB.CHEW GT SCH ×2 (08:33→20:36)
[2018-07-19] MEDS: DOCUSATE SODIUM LIQ 100 MG/10 ML UDC GT SCH ×2 (08:33→16:25)
[2018-07-19] MEDS: TRAMADOL HCL 50 MG TABLET GT SCH ×2 (08:33→16:26)
[2018-07-19] MEDS: VANCOMYCIN HCL 125 MG/2.5 ML ORAL.SUSP GT SCH ×4 (08:34→21:16)
[2018-07-19] MEDS: METOCLOPRAMIDE HCL 10 MG/10 ML UDC GT SCH ×2 (08:34→20:36)
[2018-07-19] MEDS: SEVELAMER CARBONATE 0.8 GM POWD.PACK GT SCH ×3 (08:34→16:24)
[2018-07-19] MEDS: PANTOPRAZOLE 40 MG/PACK PACK GT SCH ×2 (08:34→20:36)
[2018-07-19] MEDS: PROSOURCE / PROSTAT (PYXIS) 30 ML UDC GT SCH ×2 (08:35→16:27)
[2018-07-19] MEDS: DAKINS QUARTER STRENGTH (0.125%) 480 ML BOTTLE TOP SCH ×2 (08:35→20:37)
[2018-07-19] MEDS: SUCRALFATE 1 G/10 ML UDC GT SCH ×2 (08:36→20:36)
[2018-07-19] MEDS: VIT B CMPLX 3/FA/VIT C/BIOTIN 1 TAB TABLET GT SCH (13:13)
[2018-07-19] MEDS: POTASSIUM CHLORIDE 20 MEQ POWDER PACKET GT SCH (13:16)
[2018-07-19] MEDS: ATENOLOL 25 MG TABLET GT SCH (16:27)
--- NOTE | 2018-07-19 19:09 | NUR ---
report given to Estefany FORREST
--- NOTE | 2018-07-19 19:30 | NUR ---
RECEIVED PATIENT IN BED. PATIENT IS OBTUNDENT - MIKHAIL ORIENTATION, VENT DEPENDENT NO DISTRESS NOTED SATURATION 100%. VSS, AFEBRILE. PATIENT IS TURNED AND REPOSITIONED AT THIS TIME. CONTINUE TO MONITOR
[2018-07-19] MEDS: INSULIN REGULAR, HUMAN 100 UNIT/ML 3 ML VIAL SQ PRN (23:28)
[2018-07-20] VITALS (8 sets, daily range): BP systolic 90–110; BP diastolic 55–74
[2018-07-20] MEDS: IPRATROPIUM NEB FS 0.5 MG/2.5 ML AMPUL.NEB NEB SCH ×4 (01:37→19:56)
[2018-07-20] MEDS: ALBUTEROL FS 2.5 MG/3 ML VIAL.NEB NEB SCH ×4 (01:37→19:56)
[2018-07-20] MEDS: METRONIDAZOLE 500 MG TABLET PO SCH ×3 (05:46→20:12)
[2018-07-20] MEDS: BLOOD SUGAR DIAGNOSTIC 1 EACH STRIP IN SCH ×4 (05:49→23:17)
[2018-07-20] MEDS: INSULIN REGULAR, HUMAN 100 UNIT/ML 3 ML VIAL SQ PRN (05:49)
[2018-07-20 07:06] LABS: CALCIUM, SERUM 9.5 mg/dL (8.5-10.1); CREATININE 6.7 mg/dL (0.6-1.3); POTASSIUM 4.6 mmol/L (3.5-5.1)
--- NOTE | 2018-07-20 08:00 | NUR ---
telecom engineer note received patient in bed obtunded with trach to vent setting as ordered, on hd at this time , Ambu bag at hon at all time,on tele monitor sr ,on g tube feeding as ordered ,keep hob elevated at all time , no residual noted , rt hand iv hl intact venancio av fistula in place, bed in lowest and locked ,positing. will cont to monitor closely
[2018-07-20] MEDS: DOCUSATE SODIUM LIQ 100 MG/10 ML UDC GT SCH ×2 (09:00→17:00)
[2018-07-20] MEDS: METOCLOPRAMIDE HCL 10 MG/10 ML UDC GT SCH ×2 (09:27→20:13)
[2018-07-20] MEDS: ACIDOPHILUS/BULGARICUS 1 EACH TAB.CHEW GT SCH ×2 (09:27→20:12)
[2018-07-20] MEDS: SUCRALFATE 1 G/10 ML UDC GT SCH ×2 (09:27→20:11)
[2018-07-20] MEDS: TRAMADOL HCL 50 MG TABLET GT SCH ×2 (09:28→17:03)
[2018-07-20] MEDS: PANTOPRAZOLE 40 MG/PACK PACK GT SCH ×2 (09:28→20:11)
[2018-07-20] MEDS: SEVELAMER CARBONATE 0.8 GM POWD.PACK GT SCH ×3 (09:28→17:02)
[2018-07-20] MEDS: VANCOMYCIN HCL 125 MG/2.5 ML ORAL.SUSP GT SCH ×4 (09:29→20:12)
[2018-07-20] MEDS: MEROPENEM 500 MG in IV NS 0.9% 50 ML IV SCH ×2 (09:30→20:13)
[2018-07-20] MEDS: DAKINS QUARTER STRENGTH (0.125%) 480 ML BOTTLE TOP SCH ×2 (09:41→20:13)
[2018-07-20] MEDS: PROSOURCE / PROSTAT (PYXIS) 30 ML UDC GT SCH ×2 (09:53→17:02)
--- NOTE | 2018-07-20 09:53 | NUR ---
ENGINEERING PROGRAMMER NOTE HD COMPLETED NO FLUIDS OUT, BP 1066 ALSO ,REPORTED TO DR SEWELL PATIENT STILL HAS LOOSE STOOL OK TO HOLD COLACE AT THIS TIME, WILL CONT TO MONITOR
--- NOTE | 2018-07-20 10:42 | NUR ---
CHAIRMAN & CHIEF EXECUTIVE OFFICER NOTE ENDORSED CARE TO SKYLER FORREST
[2018-07-20] MEDS: POTASSIUM CHLORIDE 20 MEQ POWDER PACKET GT SCH (13:23)
[2018-07-20] MEDS: VIT B CMPLX 3/FA/VIT C/BIOTIN 1 TAB TABLET GT SCH (13:23)
[2018-07-20] MEDS: ATENOLOL 25 MG TABLET GT SCH (17:00)
[2018-07-20] MEDS: NEPRO 1,000 ML BOTTLE GT PRN (17:20)
--- NOTE | 2018-07-20 18:31 | NUR ---
RN Note: PATIENT REMANS OBTUNDED. ON VENT-TRAC, SETTINGS TOLERATING WELL. NO BREATHING DISTRESS NOTED. ASPIRATION PRECAUTIONS OBSERVED. G-TUBE FEEDING TOLERATING WELL. NO RESIDUAL NOTED. HD DONE TODAY, TOLERATED WELL. CONTINUE TO TURN & REPOSITION Q2H. WOUND CARE DONE ORDERED. NO SIGNIFICANT CHANGES NOTED DURING SHIFT. HD CATH FROM RIGHT CHEST WALL REMOVED BY DR. PRYOR AT BEDSIDE. PRESSURE DRESSING APPLIED. NO BLEEDING NOTED. LEFT UPPER ARM FISTULA IN USE FOR HD. CONTINUE TO MONITOR.
--- NOTE | 2018-07-20 19:30 | NUR ---
COMBAT SYSTEMS OPERATOR MINE WARFARE NOTE PT RECEIVED ASLEEP. ON MECH VENT WITH SETTINGS WELL TOLERATED AND SATURATING WELL. HOB ELEVATED AND ON ASPIRATION PRECAUTIONS. ISOLATION PRECAUTIONS OBSERVED. GT FEEDING WELL TOLERATED AND NO RESIDUALS NOTED. DEBBIE AV FISTULA IN PLACE, WRAPPED WITH NO BLEEDING NOTED. WILL MONITOR.
[2018-07-21] VITALS: BP 109/62
--- NOTE | 2018-07-21 00:15 | NUR ---
RN INITIAL NOTE RECEIVED PT FROM MARK NEVES. ON MECH VENT WITH SETTINGS WELL TOLERATED AND SATURATING WELL. HOB ELEVATED AND ON ASPIRATION PRECAUTIONS. ISOLATION PRECAUTIONS OBSERVED. GT FEEDING WELL TOLERATED AND NO RESIDUALS NOTED. DEBBIE AV FISTULA IN PLACE, WRAPPED WITH NO BLEEDING NOTED. WILL CONT TO MONITOR.
--- NOTE | 2018-07-21 00:42 | NUR ---
HOISTING MACHINE OPERATOR NOTE REPORT GIVEN TO SHELLIE FORREST FOR CONTINUITY OF CARE
[2018-07-21] MEDS: IPRATROPIUM NEB FS 0.5 MG/2.5 ML AMPUL.NEB NEB SCH ×4 (01:37→19:30)
[2018-07-21] MEDS: ALBUTEROL FS 2.5 MG/3 ML VIAL.NEB NEB SCH ×4 (01:37→19:30)
[2018-07-21 04:00] VITALS: BP 110/62
[2018-07-21] MEDS: BLOOD SUGAR DIAGNOSTIC 1 EACH STRIP IN SCH ×3 (05:35→17:48)
[2018-07-21] MEDS: METRONIDAZOLE 500 MG TABLET PO SCH ×2 (05:37→12:35)
--- NOTE | 2018-07-21 07:12 | NUR ---
RN CLOSING Note: NO SIGNIFICANT CHANGES NOTED DURING SHIFT. PATIENT REMANS OBTUNDED. ON VENT-TRAC, SETTINGS TOLERATING WELL. NO BREATHING DISTRESS NOTED. ASPIRATION PRECAUTIONS OBSERVED. G-TUBE FEEDING TOLERATING WELL. NO RESIDUAL NOTED. CONTINUE TO TURN & REPOSITION Q2H. WOUND CARE DONE ORDERED.WILL ENDORSE TO AM RN.
[2018-07-21 07:25] LABS: CALCIUM, SERUM 9.5 mg/dL (8.5-10.1); CREATININE 6.1 mg/dL (0.6-1.3); POTASSIUM 4.8 mmol/L (3.5-5.1)
[2018-07-21 08:00] VITALS: BP 108/64
[2018-07-21] MEDS: METOCLOPRAMIDE HCL 10 MG/10 ML UDC GT SCH ×2 (09:15→20:42)
[2018-07-21] MEDS: SUCRALFATE 1 G/10 ML UDC GT SCH ×2 (09:15→20:42)
[2018-07-21] MEDS: TRAMADOL HCL 50 MG TABLET GT SCH ×2 (09:16→17:47)
[2018-07-21] MEDS: SEVELAMER CARBONATE 0.8 GM POWD.PACK GT SCH ×3 (09:16→17:47)
[2018-07-21] MEDS: ACIDOPHILUS/BULGARICUS 1 EACH TAB.CHEW GT SCH ×2 (09:16→20:42)
[2018-07-21] MEDS: PANTOPRAZOLE 40 MG/PACK PACK GT SCH ×2 (09:16→20:42)
[2018-07-21] MEDS: VANCOMYCIN HCL 125 MG/2.5 ML ORAL.SUSP GT SCH ×4 (09:17→20:43)
[2018-07-21] MEDS: PROSOURCE / PROSTAT (PYXIS) 30 ML UDC GT SCH ×2 (09:18→17:47)
[2018-07-21] MEDS: DAKINS QUARTER STRENGTH (0.125%) 480 ML BOTTLE TOP SCH ×2 (09:19→20:43)
[2018-07-21] MEDS: MEROPENEM 500 MG in IV NS 0.9% 50 ML IV SCH (10:02)
[2018-07-21] MEDS: DOCUSATE SODIUM LIQ 100 MG/10 ML UDC GT SCH ×2 (10:02→17:47)
[2018-07-21 12:00] VITALS: BP 122/71
[2018-07-21] MEDS: POTASSIUM CHLORIDE 20 MEQ POWDER PACKET GT SCH (13:30)
[2018-07-21] MEDS: VIT B CMPLX 3/FA/VIT C/BIOTIN 1 TAB TABLET GT SCH (13:31)
[2018-07-21] MEDS: NEPRO 1,000 ML BOTTLE GT PRN (13:44)
[2018-07-21 16:00] VITALS: BP 118/71
[2018-07-21] MEDS: ATENOLOL 25 MG TABLET GT SCH (17:48)
--- NOTE | 2018-07-21 19:12 | NUR ---
rn note pt is to be discharged at 2030 today, discharge papers ready, signed, discharge instructions provided, exit care done, pictures taken. Report given to [facility] nurse Nicki, . iv to keep in place. according to records pt refuses pna vaccine. will endorse to shift boss nurse. safety measures in place.
--- NOTE | 2018-07-21 19:43 | NUR ---
RT PT RECEIVED TRACHED ON [facility] VENT ON CHARTED SETTINGS. NO SIGNS OF RESP DISTRESS NOTED AT THIS TIME. MUSCULOSKELETAL PHYSIOTHERAPIST CHECKED. PT SUCTIONED. PT GIVEN HHN TX. NO ADVERSE REACTIONS. ALARMS SET AND AUDIBLE. AMBUBAG AND BACK UP TRACH AT BEDSIDE. VENT CONNECTED TO RED OUTLET. WILL CONT TO MONITOR. Addendum: 07/21/18 at 1944 by KATIE ALEXANDER RT Amended: Links added.
[2018-07-21 20:00] VITALS: BP 130/70
--- NOTE | 2018-07-21 21:05 | NUR ---
RN NOTES Aleshia is here to transfer the patient to [facility]. Report given to [facility] nurse Nicki, . iv to keep in place for cont. of iv abx. wrist bend and landscape manager removed. patient is stable condition, B/P is 124/72, HR 86, spo2 100%, RR 18, no signs of distress or any pain at this time. patient left with Aleshia at 2105, all paperwork has been provided to Aleshia personal.
== END 2018-07-21 21:05 | DRG 711 ==
LOC: ER 10:06 → TELE-TD 11:28 → TELE1 07-18 11:05
PROVIDERS: ADMIT Internal Medicine Nephrology; ATTEND Internal Medicine Nephrology
PROC: 5A1955Z Respiratory Ventilation, Greater than 96 Consecutive Hours (ICD-10-PCS; principal; 2018-07-14)
PROC: 5A1D70Z Performance of Urinary Filtration, Intermittent, Less than 6 Hours Per Day (ICD-10-PCS; 2018-07-15)
PROC: 5A1D70Z Performance of Urinary Filtration, Intermittent, Less than 6 Hours Per Day (ICD-10-PCS; 2018-07-16)
PROC: 5A1D70Z Performance of Urinary Filtration, Intermittent, Less than 6 Hours Per Day (ICD-10-PCS; 2018-07-17)
PROC: 0QB10ZZ Excision of Sacrum, Open Approach (ICD-10-PCS; 2018-07-17)
PROC: 5A1D70Z Performance of Urinary Filtration, Intermittent, Less than 6 Hours Per Day (ICD-10-PCS; 2018-07-18)
PROC: 05PYX3Z Removal of Infusion Device from Upper Vein, External Approach (ICD-10-PCS; 2018-07-20)
PROC: 5A1D70Z Performance of Urinary Filtration, Intermittent, Less than 6 Hours Per Day (ICD-10-PCS; 2018-07-20)
PROC: 5A1D70Z Performance of Urinary Filtration, Intermittent, Less than 6 Hours Per Day (ICD-10-PCS; 2018-07-21)
DX: T80.211A Bloodstream infection due to central venous catheter, initial encounter (principal); A41.59 Other Gram-negative sepsis; G93.40 Encephalopathy, unspecified; J18.9 Pneumonia, unspecified organism; Z99.11 Dependence on respirator [ventilator] status; J96.11 Chronic respiratory failure with hypoxia; A04.71 Enterocolitis due to Clostridium difficile, recurrent; L89.154 Pressure ulcer of sacral region, stage 4; E11.22 Type 2 diabetes mellitus with diabetic chronic kidney disease; J44.0 Chronic obstructive pulmonary disease with (acute) lower respiratory infection; E87.2 Acidosis; I12.0 Hypertensive chronic kidney disease with stage 5 chronic kidney disease or end stage renal disease; N18.6 End stage renal disease; Y84.8 Other medical procedures as the cause of abnormal reaction of the patient, or of later complication, without mention of misadventure at the time of the procedure; Y92.129 Unspecified place in nursing home as the place of occurrence of the external cause; N40.0 Benign prostatic hyperplasia without lower urinary tract symptoms; I69.354 Hemiplegia and hemiparesis following cerebral infarction affecting left non-dominant side; D63.1 Anemia in chronic kidney disease; Z86.19 Personal history of other infectious and parasitic diseases; B96.1 Klebsiella pneumoniae [K. pneumoniae] as the cause of diseases classified elsewhere; Z16.12 Extended spectrum beta lactamase (ESBL) resistance; R13.10 Dysphagia, unspecified; Z99.2 Dependence on renal dialysis; Z86.718 Personal history of other venous thrombosis and embolism; Z86.711 Personal history of pulmonary embolism; Z93.1 Gastrostomy status
CPT/HCPCS: 31720; 36415; 71045-TC; 80048-TC; 80053-TC; 80076-TC; 80202-TC; 82272-TC; 82728-TC; 82962-TC; 83540-TC; 83605-TC; 83735-TC; 84100-TC; 84484-TC; 85025-TC; 85730-TC; 87040-TC; 87081-TC; 87186-TC; 90935-TC; 94002-TC; 94003-TC; 94760-TC; 94762-TC; 99082-TC; A4216; A6253; A6402; A6403; C1751; G0378; J0885; J1815; J2185; J2543; J3370; J7040; J7050; J7060; J8597

== ENCOUNTER 2019-02-12 13:57 | Inpatient (IN) | payer MEDICAID ==
[~2019-02-12] VITALS: Ht 182.9 cm; Wt 81.2 kg
[2019-02-12] VITALS: BP 102/71
[~2019-02-12 13:57] MED LIST changes: +ACET-868 GT; +ACID1TAB12 GT; +BLOO-668 IN; +INSU100V3 SQ; +IPRA3AMP23 IH; +METO5SOL GT; +OMEP40CA37 GT; +POTA20LI5 GT; +SEVE0.8P3 GT; +SUCR1ORA GT
--- NOTE | 2019-02-12 14:05 | NUR ---
JONATHAN, FROM [facility], CAME IN DUE TO TACHYCARDIA AND HIGH BP AFTER DIALYSIS. TO ER BED 5, HOOKED TO MONITOR, BP OF 128/76 HR OF 114 UPON ARRIVAL IN ED. RT AT BEDSIDE. PLACED ON VENT WITH SETTINGS OF AC 14 VT 550 O2 40% PEEP 5.0. DR BAUTISTA AT BEDSIDE.
[2019-02-12 14:32] LABS: BASOPHILS # (AUTO) 0.1 /CMM (0.0-0.2); BASOPHILS % (AUTO) 0.4 % (0.0-2.0); EOSINOPHILS % (AUTO) 1.5 % (0.0-6.0); HEMATOCRIT 34 % (39-51); HEMOGLOBIN 10.8 g/dL (13.5-17.5); LYMPHOCYTES % (AUTO) 7.3 % (20.0-44.0); MEAN CORPUSCULAR HGB CONC 32 g/dl (31.0-36.0); MEAN CORPUSCULAR VOLUME 88 fL (80-96); MONOCYTES # (AUTO) 1.9 /CMM (0.1-1.30); MONOCYTES % (AUTO) 13.7 % (2.0-12.0); NEUTROPHILS # (AUTO) 10.6 /CMM (1.8-8.9); NEUTROPHILS % (AUTO) 77.1 % (43.0-81.0); PLATELET COUNT (AUTO) 294 /CMM (150-450); RED BLOOD CELL COUNT(AUTO) 3.86 MIL/uL (4.5-6.0); WHITE BLOOD COUNT (AUTO) 13.7 K/uL (4.3-11.0)
[2019-02-12 14:39] LABS: CALCIUM, SERUM 8.9 mg/dL (8.5-10.1); CARBON DIOXIDE 25 mmol/L (21-32); CHLORIDE 103 mmol/L (98-107); CREATININE 4.5 mg/dL (0.6-1.3); GLUCOSE 113 mg/dL (74-106); POTASSIUM 3.6 mmol/L (3.5-5.1); SODIUM SERUM 139 mmol/L (136-145); UREA NITROGEN, BLOOD 32 mg/dL (7-18)
[2019-02-12 14:44] LABS: ALANINE AMINOTRANSFERASE 51 U/L (12-78); ALBUMIN 3.1 g/dL (3.4-5.0); ALKALINE PHOSPHATASE 157 U/L (46-116); ASPARTATE AMINOTRANSFERASE 42 U/L (15-37); BILIRUBIN,DIRECT 0.2 mg/dL (0.0-0.2); BILIRUBIN,TOTAL 0.6 mg/dL (0.2-1.0); TOTAL PROTEIN, SERUM 8.3 g/dL (6.4-8.2)
--- NOTE | 2019-02-12 15:44 | NUR ---
SUNITHA RT UNIT ETA 1707
--- NOTE | 2019-02-12 15:53 | NUR ---
REPORT GIVEN TO SAAD SPAR FINISHER OF [facility]
[2019-02-12] MEDS ORDERED: IV NS 0.9% 500 ML BAG IV ONE (16:00)
--- NOTE | 2019-02-12 16:50 | NUR ---
INFORMED DR BAUTISTA OF LATEST VS OF PATIENT, WILL BE ADMITTING PATIENT
[2019-02-12] MEDS ORDERED: CEFTRIAXONE 1GM BAG (ER ONLY) 50 ML IV ONE ×2 (17:07→17:30)
--- NOTE | 2019-02-12 17:19 | NUR ---
CALLED [facility] GURJ[facility] ART PAGED
--- NOTE | 2019-02-12 17:37 | NUR ---
CALLED NURSING SUP FOR TELE BED
--- NOTE | 2019-02-12 17:46 | NUR ---
CALLED [facility] GUR[facility] RUTLEDGE PAGED
[2019-02-12 18:45] LABS: APPEARANCE,URINE Slightly Cloudy (CLEAR); BILIRUBIN,URINE Negative (NEGATIVE); BLOOD, URINE Moderate Ery/uL (NEGATIVE); COLOR,URINE Orange (YELLOW); KETONES,URINE Negative (NEGATIVE); LEUKOCYTE ESTERASE ,URINE Small (NEGATIVE); NITRITE, URINE Negative (NEGATIVE); PH,URINE 5.5 (5.0-8.0); PROTEIN,URINE 100 mg/dl (NEGATIVE); UGLUCOSE Negative (NEGATIVE); UROBILINOGEN,URINE 0.2 EU/dL (0.2)
[2019-02-12 19:07] LABS: BACTERIA,URINE Few /HPF (None Seen); RBC,URINE 21-50 /HPF (0-2); SQUAMOUS EPITHELIAL CELL,UR Few /HPF (None Seen); URINE AMORPHOUS URATE Moderate /HPF (None Seen)
[2019-02-12 19:08] LABS: MUCUS,URINE Few /LPF (None Seen)
--- NOTE | 2019-02-12 19:20 | NUR ---
REPORT GIVEN TO SABINE FORREST FOR DENNIS
[2019-02-12] MEDS ORDERED: SUCR1ORA4 GT (19:45)
--- NOTE | 2019-02-12 19:58 | NUR ---
report given to radha arboleda for steve; pt will be transported to 1st floor via acls protocol
[2019-02-12 20:00] VITALS: BP 124/90
[2019-02-12 20:25] VITALS: BP 124/90
--- NOTE | 2019-02-12 20:30 | NUR ---
HAND TOOL FILER NOTES, AT 2024 RECEIVED 58 YEAR OLD MALE ADMITTED FROM EMERGENCY DEPARTMENT VIA STRETCHER IN COMPANY OF 2 NURSES AND RT, UNDER MEDICAL SERVICES OF DR GRULLON, WITH DX SEPSIS, VDRF WITH TRACH, TOLERATED SETTINGS WELL, A/O TO SELF, MOUNT WORDS, ON MECHANICAL VENTILATOR, NO SOB/ACUTE DISTRESS NOTED AT THIS TIME, H/O CVA WITH LEFT SIDED WEAKNESS, HTN, DYSPHAGIA WITH PEG, DM, OLD AV SHUNT, CONTRACTURES, WITH WOUND IN RIGHT FOOT, WITH RIGHT AC, LEFT HAND AND RFA IV ACCESS ALL PATENT AND INTACT, [facility] HD CATHETER IN PLACED, INTACT AND CLEAN, PATIENT TRANSFERRED FROM HD CENTER FOR TACHYCARDIA AND HIGH BLOOD PRESSURE, BED BATH AND TREATMENT FOR WOUNDS DONE UPON ADMISSION, PATIENT DRY AND CLEAN, BED LOCKED AND IN LOW POSITION, CALL LIGHT W/I REACH, WILL CONTINUE TO MONITOR CLOSELY, AND F/U WITH DR HDZ FOR ORDERS. VS 129/90, 18, 100, 100%, 97.6, 0/10.
[2019-02-12] MEDS ORDERED: MAG HYDROX/AL HYDROX/SIMETH 30 ML UDC PO PRN (22:00)
[2019-02-12] MEDS ORDERED: Z GUARD REMEDY 2 OZ OINT TP PRN (22:00)
[2019-02-12] MEDS ORDERED: ACETAMINOPHEN 325 MG TABLET PO PRN ×2 (22:00)
[2019-02-12] MEDS ORDERED: ZOLPIDEM TARTRATE 5 MG TABLET PO PRN (22:00)
[2019-02-12] MEDS ORDERED: Medication Not On Formulary EA (Ipratropium/Albuterol Sulfate (Duoneb 2.5-0.5 Mg/3 Ml So IH PRN (22:00)
[2019-02-12] MEDS ORDERED: DEXTROSE 50%-WATER 50 ML DISP.SYRIN IV PRN (22:00)
[2019-02-12] MEDS ORDERED: ONDANSETRON HCL/PF 4 MG/2 ML VIAL IVP PRN (22:00)
[2019-02-12] MEDS: NEPRO 1,000 ML BOTTLE GT PRN (22:29)
[2019-02-12] MEDS ORDERED: ALBUTEROL FS 2.5 MG/0.5 ML VIAL.NEB NEB PRN (22:30)
[2019-02-12] MEDS ORDERED: IPRATROPIUM NEB FS 0.5 MG/2.5 ML AMPUL.NEB IH PRN (22:30)
[2019-02-13] VITALS (7 sets, daily range): BP systolic 21–122; BP diastolic 63–100
[2019-02-13] MEDS ORDERED: BLOOD SUGAR DIAGNOSTIC 1 EACH STRIP IN SCH
[2019-02-13] MEDS: BLOOD SUGAR DIAGNOSTIC 1 EACH STRIP IN SCH ×5 (00:36→23:11)
[2019-02-13] MEDS: INSULIN REGULAR, HUMAN 100 UNIT/ML 3 ML VIAL SQ PRN (00:36)
[2019-02-13] MEDS: IPRATROPIUM NEB FS 0.5 MG/2.5 ML AMPUL.NEB IH SCH ×4 (01:24→19:51)
[2019-02-13] MEDS: ALBUTEROL FS 2.5 MG/0.5 ML VIAL.NEB NEB SCH ×4 (01:24→19:51)
[2019-02-13] MEDS ORDERED: Medication Not On Formulary EA (Ipratropium/Albuterol Sulfate (Duoneb 2.5-0.5 Mg/3 Ml So IH SCH (01:30)
--- NOTE | 2019-02-13 06:41 | NUR ---
RN NOTES, PATIENT WITH STABLE VITAL SIGNS, ON MECHANICAL VENTILATOR, TOLERATED SETTINGS WELL, NO SOB/ACUTE DISTRESS NOTED, DR RUTLEDGE AT THIS TIME ASSESSING PATIENT, WILL ENDORSE CONTINUITY OF CARE TO ONCOMING NURSE.
[2019-02-13 06:54] LABS: BASOPHILS # (AUTO) 0.1 /CMM (0.0-0.2); BASOPHILS % (AUTO) 0.7 % (0.0-2.0); EOSINOPHILS % (AUTO) 2.7 % (0.0-6.0); HEMATOCRIT 32 % (39-51); HEMOGLOBIN 10.1 g/dL (13.5-17.5); LYMPHOCYTES # (AUTO) 1.5 /CMM (0.8-4.8); LYMPHOCYTES % (AUTO) 11.5 % (20.0-44.0); MEAN CORPUSCULAR HGB CONC 32 g/dl (31.0-36.0); MEAN CORPUSCULAR VOLUME 88 fL (80-96); MONOCYTES # (AUTO) 1.8 /CMM (0.1-1.30); MONOCYTES % (AUTO) 13.3 % (2.0-12.0); NEUTROPHILS # (AUTO) 9.6 /CMM (1.8-8.9); NEUTROPHILS % (AUTO) 71.8 % (43.0-81.0); PLATELET COUNT (AUTO) 292 /CMM (150-450); RED BLOOD CELL COUNT(AUTO) 3.61 MIL/uL (4.5-6.0); WHITE BLOOD COUNT (AUTO) 13.4 K/uL (4.3-11.0)
[2019-02-13 07:19] LABS: CREATININE 5.9 mg/dL (0.6-1.3); MAGNESIUM 2.5 mg/dL (1.8-2.4); PHOSPHORUS 4.6 mg/dL (2.5-4.9); POTASSIUM 3.5 mmol/L (3.5-5.1)
--- NOTE | 2019-02-13 07:30 | NUR ---
ACCESS ANALYST NOTES RECEIVED PT IN BED. A/O X1. ON PORTEX 8 AC 14 TV 550 FIO2 40% PEEP 5, BREATHING EVEN AND UNLABORED, SR HR 97 ON TELE MONITOR. RUCHEST WALL HD CATH ACCESS, RT AC G 20 LEFT HAND G 20 FRA G 24 ALL FLUSHES WELL, ALL SITES CLEAR, GTUBE FEEDING ONGOING AT 60 ML/HR, NO RESIDUAL NOTED. HEAD OF BED ELEVATED. SIDE RAILS UP. SEE NURSING FLOWSHEET FOR SKIN ISSUES. CALL LIGHT WITHIN REACH, BED ALARM ON. WILL CONTINUE TO MONITOR PT CLOSELY.
--- NOTE | 2019-02-13 09:30 | NUR ---
STRESS TEST TECHNICIAN NOTES DUE MEDS GIVEN
[2019-02-13] MEDS: SUCRALFATE 1 G/10 ML UDC GT SCH ×2 (09:35→20:18)
[2019-02-13] MEDS: ACIDOPHILUS/BULGARICUS 1 EACH TAB.CHEW GT SCH ×2 (09:35→20:18)
[2019-02-13] MEDS: SEVELAMER CARBONATE 0.8 GM POWD.PACK GT SCH ×3 (09:35→17:15)
[2019-02-13] MEDS: DOCUSATE SODIUM 100 MG CAPSULE PO SCH ×2 (09:36→17:16)
[2019-02-13] MEDS: TRAMADOL HCL 50 MG TABLET GT SCH ×2 (09:36→17:16)
[2019-02-13] MEDS: PANTOPRAZOLE 40 MG/PACK PACK GT SCH ×2 (09:36→20:18)
[2019-02-13] MEDS: HYDROGEL DRESSING 90 GM TUBE TP SCH (17:14)
[2019-02-13] MEDS: ATENOLOL 25 MG TABLET GT SCH (17:17)
[2019-02-13] MEDS: CEFTRIAXONE 1 G in IV D5W 50 ML IV SCH ×2 (17:17→17:28)
[2019-02-13] MEDS: NEPRO 1,000 ML BOTTLE GT PRN (17:26)
--- NOTE | 2019-02-13 19:30 | NUR ---
MS RN NOTES ALL NEEDS MET. TURNED AND REPOSITIONED Q 2HOURS. PRESCRIBED WOUND TREATMENT DONE. PM CARE DONE. FOR WOUND DEBRIDEMENT TOMORROW. RT FOOT BY DR. BROWN. SACRUM BY KAMARI. ALL CONSENTS SIGNED. ENDORSED TO NEXT SHIFT FOR DENNIS.
--- NOTE | 2019-02-13 19:48 | NUR ---
MEAT BUTCHER NOTES RECEIVED PT ON BED. A/O X1. ON TELE MONITOR ST 110. [facility] SATUR[facility] WELL, NO RESPIRATORY DISTRESS NOTED. GTUBE FEEDING NO RESIDUAL NOTED. IV ACCESS ON RAC AND LEFT HAND G20 PATENT AND INTACT. HEAD OF BED ELEVATED. SIDE RAILS UP. CALL LIGHT WITHIN REACH, BED ALARM ON. WILL CONTINUE TO MONITOR PT CLOSELY.
[2019-02-14] VITALS: BP 118/74
[2019-02-14] MEDS: ALBUTEROL FS 2.5 MG/0.5 ML VIAL.NEB NEB SCH ×4 (01:54→19:42)
[2019-02-14] MEDS: IPRATROPIUM NEB FS 0.5 MG/2.5 ML AMPUL.NEB IH SCH ×4 (01:54→19:42)
[2019-02-14 04:00] VITALS: BP 117/81
[2019-02-14] MEDS: BLOOD SUGAR DIAGNOSTIC 1 EACH STRIP IN SCH ×4 (05:14→23:56)
--- NOTE | 2019-02-14 06:32 | NUR ---
PEDIATRIC DENTIST NOTES NO ACUTE CHANGES NOTED DURING THE SHIFT. PROVIDED COMFORT AND SAFETY. WILL ENDORSE TO THE AM NURSE FOR CONTINUITY OF CARE
[2019-02-14 07:20] LABS: BASOPHILS # (AUTO) 0.1 /CMM (0.0-0.2); EOSINOPHILS % (AUTO) 4.7 % (0.0-6.0); HEMATOCRIT 31 % (39-51); HEMOGLOBIN 9.7 g/dL (13.5-17.5); LYMPHOCYTES # (AUTO) 1.5 /CMM (0.8-4.8); LYMPHOCYTES % (AUTO) 12.8 % (20.0-44.0); MEAN CORPUSCULAR HGB CONC 31 g/dl (31.0-36.0); MEAN CORPUSCULAR VOLUME 88 fL (80-96); MONOCYTES # (AUTO) 1.5 /CMM (0.1-1.30); MONOCYTES % (AUTO) 12.7 % (2.0-12.0); NEUTROPHILS # (AUTO) 8.2 /CMM (1.8-8.9); NEUTROPHILS % (AUTO) 68.8 % (43.0-81.0); PLATELET COUNT (AUTO) 324 /CMM (150-450); RED BLOOD CELL COUNT(AUTO) 3.54 MIL/uL (4.5-6.0); WHITE BLOOD COUNT (AUTO) 11.9 K/uL (4.3-11.0)
--- NOTE | 2019-02-14 07:20 | NUR ---
TELE/RN OPENING NOTES RECEIVED PATIENT IN BED SLEEPING COMFORTABLY. PATIENT ABLE TO RESPOND TO TACTILE STIMULI. PATIENT IS ALERT AND ORIENTED X1. NO FACIAL GRIMACING OR ACUTE DISTRESS AT THIS TIME. RESPIRATION EVEN AND UNLABORED. SKIN IS DRY WARM TO TOUCH. PATIENT ON TELE WITH HR OF 78 AT THIS TIME. CONTINUES ON CURRENT MECHANICAL VENT SETTING SATURATING WELL. GTUBE FEEDING NO RESIDUAL NOTED. HOB ELEVATED AT ALL TIMES. IV ACCESS ON RAC AND LEFT HAND G20 PATENT AND INTACT. ALL NEEDS ANTICIPATED. CALL LIGHT WITHIN REACHED. SIDE RAILS UP. CALL LIGHT WITHIN REACH, BED ALARM ON. WILL CONTINUE TO MONITOR PT CLOSELY.
[2019-02-14 07:53] LABS: ALBUMIN 2.8 g/dL (3.4-5.0); BILIRUBIN,TOTAL 0.3 mg/dL (0.2-1.0); CALCIUM, SERUM 9.5 mg/dL (8.5-10.1); MAGNESIUM 2.9 mg/dL (1.8-2.4); POTASSIUM 3.5 mmol/L (3.5-5.1); TOTAL PROTEIN, SERUM 7.5 g/dL (6.4-8.2)
[2019-02-14 08:00] VITALS: BP 107/69
[2019-02-14 08:03] LABS: CREATININE 7.8 mg/dL (0.6-1.3)
[2019-02-14] MEDS: SUCRALFATE 1 G/10 ML UDC GT SCH ×2 (09:04→20:22)
[2019-02-14] MEDS: DOCUSATE SODIUM 100 MG CAPSULE PO SCH ×2 (09:04→16:52)
[2019-02-14] MEDS: ACIDOPHILUS/BULGARICUS 1 EACH TAB.CHEW GT SCH ×2 (09:05→20:22)
[2019-02-14] MEDS: SEVELAMER CARBONATE 0.8 GM POWD.PACK GT SCH ×3 (09:05→16:52)
[2019-02-14] MEDS: TRAMADOL HCL 50 MG TABLET GT SCH ×2 (09:05→16:52)
[2019-02-14] MEDS: PANTOPRAZOLE 40 MG/PACK PACK GT SCH ×2 (09:05→20:22)
[2019-02-14] MEDS: HYDROGEL DRESSING 90 GM TUBE TP SCH (09:09)
[2019-02-14] MEDS: DAKINS HALF STRENGTH (0.25%) 480 ML BOTTLE TOP SCH (09:09)
--- NOTE | 2019-02-14 12:05 | NUR ---
WOUND CARE CONSULT WOUND CARE RECEIVED CONSULT FOR RIGHT FOOT WOUND. WOUND CARE WILL DEFER CONSULT AND TREATMENT PLANS TO PLASTIC SURGICAL TEAM INCLUDING DPGisela BROWN WHO ARE ALL CURRENTLY FOLLOWING THIS PATIENT. PATIENT WITH LAMONTE AT12, ALL PRESSURE ULCER PREVENTION MEASURES ARE NOTED TO BE IN PLACE. WILL SEE PRN.
[2019-02-14] MEDS: NEPRO 1,000 ML BOTTLE GT PRN (13:30)
[2019-02-14 16:00] VITALS: BP 109/68
[2019-02-14] MEDS: ATENOLOL 25 MG TABLET GT SCH (16:47)
--- NOTE | 2019-02-14 16:48 | NUR ---
TELE/RN NOTES MEDICATION ATENOLOL WAS NOT GIVEN DUE TO B/P OF 109/68. PATIENT REMAINS IN STABLE CONDITION. WILL CONTINUE TO MONITOR CLOSELY.
[2019-02-14] MEDS: EPOETIN ALFA (10,000 UNIT) 10,000 UNIT/ML VIAL IV SCH (18:18)
--- NOTE | 2019-02-14 18:20 | NUR ---
TELE/RN NOTES MEDICATION EPOGEN WAS GIVEN TO DIALYSIS NURSE AUGUSTA TO BE GIVEN WITH HEMODIALYSIS. PATIENT CONTINUES TO REMAIN IN STABLE CONDITION. WILL CONTINUE TO MONITOR.
--- NOTE | 2019-02-14 18:36 | NUR ---
ADDENDUM TO IVPB ROCEPHIN IV GIVEN YESTERDAY,PRIMARY RN SCANNED ROCEPHIN TWICE BUT ACTUALLY GAVE ONE DOSE OF ROCEPHIN ANTIBIOTIC YESTERDAY,DISCUSSED WITH PHARMACIST ELISA MCLAIN CATCH UP WITH TIME FOR TODAYS DOSE.IMKHAIL ROGERS RN MADE AWARE.
--- NOTE | 2019-02-14 18:37 | NUR ---
TELE/RN NOTES PATIENT ON HEMODIALYSIS AT THE MOMENT. WILL ENDORSE TO NEXT SHIFT TO GIVE ROCEPHIN ATB DOSE AFTER THE HEMODIALYSIS.
--- NOTE | 2019-02-14 19:29 | NUR ---
TELE/RN CLOSING NOTES PATIENT CONTINUES TO REMAIN IN STABLE CONDITION. PROVIDED COMFORT AND SAFETY THROUGHOUT THE SHIFT. HEMODIALYSIS ON GOING AT THE MOMENT. NO FACIAL GRIMACING OR ACUTE DISTRESS AT THIS TIME. RESPIRATION EVEN AND UNLABORED. SKIN IS DRY WARM TO TOUCH. PATIENT ON TELE WITH HR OF 85 AT THIS TIME. CONTINUES ON CURRENT MECHANICAL VENT SETTING SATURATING WELL. GTUBE FEEDING NO RESIDUAL NOTED. HOB ELEVATED AT ALL TIMES. IV ACCESS ON RAC AND LEFT HAND G20 PATENT AND INTACT. ALL NEEDS ANTICIPATED. ENDORSED TO PM NURSE TO GIVE ROCEPHIN AFTER HEMODIALYSIS. CALL LIGHT WITHIN REACHED. SIDE RAILS UP. CALL LIGHT WITHIN REACH, BED ALARM ON. WILL CONTINUE TO MONITOR PT CLOSELY. ENDORSED TO PM NURSE FOR DENNIS.
[2019-02-14 20:00] VITALS: BP 110/73
[2019-02-14] MEDS ORDERED: CEFTRIAXONE 1 G in IV D5W 50 ML IV ONE (20:00)
--- NOTE | 2019-02-14 21:30 | NUR ---
POLISH COMPOUNDER NOTE: RECEIVED PT ON BED WITH NO APPARENT DISTRESS NOTED. ONGOING HD AT THIS TIME. NO FACIAL GRIMACING OR ANY SIGNS OF PAIN NOTED. [facility], SETTINGS ORDERED. SATURATING WELL. NO SOB NOTED. SINUS RHYTHM ON TELE MONITOR HR 91BPM. GT INTACT AND PATENT WITH NEPRO RUNNING AT 60ML/HR, NO RESIDUAL NOTED AT THIS TIME. KEPT CLEAN, DRY AND COMFORTABLE. SAFETY AND FALL PRECAUTIONS OBSERVED AND MAINTAINED. WILL CONTINUE TO MONITOR.
[2019-02-15] VITALS: BP 115/66
[2019-02-15] MEDS: ALBUTEROL FS 2.5 MG/0.5 ML VIAL.NEB NEB SCH ×4 (01:34→19:57)
[2019-02-15] MEDS: IPRATROPIUM NEB FS 0.5 MG/2.5 ML AMPUL.NEB IH SCH ×4 (01:34→19:57)
[2019-02-15 04:00] VITALS: BP 112/70
[2019-02-15] MEDS: NEPRO 1,000 ML BOTTLE GT PRN (05:53)
[2019-02-15] MEDS: BLOOD SUGAR DIAGNOSTIC 1 EACH STRIP IN SCH ×3 (06:06→17:00)
--- NOTE | 2019-02-15 06:36 | NUR ---
SOCIAL WORK FACULTY MEMBER NOTE: NO CHANGES NOTED THROUGHOUT THE SHIFT. NO APPARENT DISTRESS NOTED. NO FACIAL GRIMACING OR ANY SIGNS OF PAIN NOTED. ON [facility] VENT, SETTINGS ORDERED. ON TELE MONITOR SINUS RHYTHM HR 89BPM. GT INTACT AND PATENT, NO RESIDUAL NOTED. KEPT CLEAN, DRY AND COMFORTABLE. SAFETY AND FALL PRECAUTIONS OBSERVED AND MAINTAINED. WILL ENDORSE TO DAY SHIFT RN FOR CONTINUITY OF CARE.
[2019-02-15 06:53] LABS: BASOPHILS # (AUTO) 0.1 /CMM (0.0-0.2); BASOPHILS % (AUTO) 0.7 % (0.0-2.0); HEMATOCRIT 31 % (39-51); HEMOGLOBIN 9.9 g/dL (13.5-17.5); LYMPHOCYTES # (AUTO) 1.2 /CMM (0.8-4.8); LYMPHOCYTES % (AUTO) 8.7 % (20.0-44.0); MEAN CORPUSCULAR HGB CONC 32 g/dl (31.0-36.0); MEAN CORPUSCULAR VOLUME 87 fL (80-96); MONOCYTES # (AUTO) 1.5 /CMM (0.1-1.30); MONOCYTES % (AUTO) 10.7 % (2.0-12.0); NEUTROPHILS # (AUTO) 10.4 /CMM (1.8-8.9); NEUTROPHILS % (AUTO) 75.9 % (43.0-81.0); PLATELET COUNT (AUTO) 313 /CMM (150-450); RED BLOOD CELL COUNT(AUTO) 3.58 MIL/uL (4.5-6.0); WHITE BLOOD COUNT (AUTO) 13.7 K/uL (4.3-11.0)
[2019-02-15 07:05] LABS: ALBUMIN 2.8 g/dL (3.4-5.0); BILIRUBIN,TOTAL 0.3 mg/dL (0.2-1.0); CALCIUM, SERUM 9.3 mg/dL (8.5-10.1); CREATININE 5.7 mg/dL (0.6-1.3); MAGNESIUM 2.5 mg/dL (1.8-2.4); PHOSPHORUS 3.6 mg/dL (2.5-4.9); TOTAL PROTEIN, SERUM 7.5 g/dL (6.4-8.2)
[2019-02-15 08:00] VITALS: BP 113/74
[2019-02-15] MEDS: SUCRALFATE 1 G/10 ML UDC GT SCH ×2 (08:12→20:58)
[2019-02-15] MEDS: ACIDOPHILUS/BULGARICUS 1 EACH TAB.CHEW GT SCH ×2 (08:12→20:58)
[2019-02-15] MEDS: DOCUSATE SODIUM 100 MG CAPSULE PO SCH ×2 (08:12→16:17)
[2019-02-15] MEDS: HYDROGEL DRESSING 90 GM TUBE TP SCH (08:13)
[2019-02-15] MEDS: TRAMADOL HCL 50 MG TABLET GT SCH ×2 (08:13→16:17)
[2019-02-15] MEDS: DAKINS HALF STRENGTH (0.25%) 480 ML BOTTLE TOP SCH (08:13)
[2019-02-15] MEDS: PANTOPRAZOLE 40 MG/PACK PACK GT SCH ×2 (08:13→20:58)
[2019-02-15] MEDS: SEVELAMER CARBONATE 0.8 GM POWD.PACK GT SCH ×3 (08:13→16:16)
[2019-02-15 12:00] VITALS: BP 98/74
[2019-02-15 12:10] LABS: *SPE A/G RATIO 0.9 (0.7-1.7); *SPE ALBUMIN 3.1 g/dL (2.9-4.4); *SPE ALPHA-1-GLOBULIN 0.4 g/dL (0.0-0.4); *SPE ALPHA-2-GLOBULIN 0.8 g/dL (0.4-1.0); *SPE BETA GLOBULIN 0.9 g/dL (0.7-1.3); *SPE GLOBULIN, TOTAL 3.6 g/dL (2.2-3.9); *SPE M-SPIKE Not Observed g/dL (Not Observed); *SPEGAMMA GLOBULIN 1.4 g/dL (0.4-1.8)
[2019-02-15] MEDS ORDERED: FEE PK DOSING 1 MIN EA MC ONE (12:58)
[2019-02-15 14:07] LABS: PTH, INTACT 15 pg/mL (15-65)
[2019-02-15] MEDS ORDERED: VANCOMYCIN 1 GM in IV D5W 250 ML IV PRN (15:00)
[2019-02-15] MEDS: CEFEPIME 1 GM in IV D5W 50 ML IV SCH (15:51)
[2019-02-15 16:00] VITALS: BP 109/64
[2019-02-15] MEDS: ATENOLOL 25 MG TABLET GT SCH (16:17)
[2019-02-15 20:00] VITALS: BP 114/64
--- NOTE | 2019-02-15 20:00 | NUR ---
RN INITIAL NOTES RECEIVED PATIENT IN BED SLEEPING COMFORTABLY. PATIENT IS ALERT AND ORIENTED X1. NO FACIAL GRIMACING OR ACUTE DISTRESS AT THIS TIME. RESPIRATION EVEN AND UNLABORED. SKIN IS DRY WARM TO TOUCH. PATIENT ON TELE WITH HR OF 78 AT THIS TIME. CONTINUES ON CURRENT MECHANICAL VENT SETTING SATURATING WELL. GTUBE FEEDING NO RESIDUAL NOTED. HOB ELEVATED AT ALL TIMES. IV ACCESS ON RAC AND LEFT HAND G20 PATENT AND INTACT. ALL NEEDS ANTICIPATED. CALL LIGHT WITHIN REACHED. SIDE RAILS UP. CALL LIGHT WITHIN REACH, BED ALARM ON. WILL CONTINUE TO MONITOR PT CLOSELY.
[2019-02-16] VITALS: BP 107/66
[2019-02-16] MEDS: BLOOD SUGAR DIAGNOSTIC 1 EACH STRIP IN SCH ×4 (01:16→19:22)
[2019-02-16] MEDS: ALBUTEROL FS 2.5 MG/0.5 ML VIAL.NEB NEB SCH ×4 (01:19→19:23)
[2019-02-16] MEDS: IPRATROPIUM NEB FS 0.5 MG/2.5 ML AMPUL.NEB IH SCH ×4 (01:19→19:23)
[2019-02-16 04:00] VITALS: BP 100/71
--- NOTE | 2019-02-16 06:47 | NUR ---
RN CLOSING NOTES PATIENT CONTINUES TO REMAIN IN STABLE CONDITION. PROVIDED COMFORT AND SAFETY THROUGHOUT THE SHIFT. PATIENT ON TELE WITH HR OF 85 AT THIS TIME. CONTINUES ON CURRENT MECHANICAL VENT SETTING SATURATING WELL. G TUBE FEEDING NO RESIDUAL NOTED. HOB ELEVATED AT ALL TIMES. IV ACCESS ON RAC AND LEFT HAND G20 PATENT AND INTACT S/L. ALL NEEDS ANTICIPATED. CALL LIGHT WITHIN REACHED. SIDE RAILS UP. CALL LIGHT WITHIN REACH, BED ALARM ON. WILL CONTINUE TO MONITOR PT CLOSELY.WILL ENDORSE TO AM NURSE FOR DENNIS.
--- NOTE | 2019-02-16 07:25 | NUR ---
RN OPENING NOTES PT IS ASLEEP IN BED WITH G-TUBE FEEDING RUNNING AT 60ML/HR. PT APPEARS TO BE TOLERATING VENT SETTINGS. PT IS OBTUNDED AND DOES NOT ANSWER. A&OX1. REPORT RECEIVED FROM REGISTERED ROUTE ASSOCIATE RN. BED IS LOCKED AND IN LOWEST POSITION BED ALARM IS ON WILL CONTINUE TO MONITOR.
[2019-02-16 08:00] VITALS: BP 114/70
[2019-02-16 08:01] LABS: BASOPHILS # (AUTO) 0.1 /CMM (0.0-0.2); BASOPHILS % (AUTO) 0.5 % (0.0-2.0); EOSINOPHILS % (AUTO) 4.5 % (0.0-6.0); HEMATOCRIT 29 % (39-51); HEMOGLOBIN 9.5 g/dL (13.5-17.5); LYMPHOCYTES # (AUTO) 1.7 /CMM (0.8-4.8); LYMPHOCYTES % (AUTO) 12.7 % (20.0-44.0); MEAN CORPUSCULAR HGB CONC 32 g/dl (31.0-36.0); MEAN CORPUSCULAR VOLUME 86 fL (80-96); MONOCYTES # (AUTO) 1.4 /CMM (0.1-1.30); MONOCYTES % (AUTO) 10.7 % (2.0-12.0); NEUTROPHILS # (AUTO) 9.6 /CMM (1.8-8.9); NEUTROPHILS % (AUTO) 71.6 % (43.0-81.0); PLATELET COUNT (AUTO) 320 /CMM (150-450); RED BLOOD CELL COUNT(AUTO) 3.41 MIL/uL (4.5-6.0); WHITE BLOOD COUNT (AUTO) 13.3 K/uL (4.3-11.0)
[2019-02-16 08:47] LABS: ALBUMIN 2.7 g/dL (3.4-5.0); BILIRUBIN,TOTAL 0.4 mg/dL (0.2-1.0); CALCIUM, SERUM 9.5 mg/dL (8.5-10.1); MAGNESIUM 2.8 mg/dL (1.8-2.4); PHOSPHORUS 3.8 mg/dL (2.5-4.9); POTASSIUM 3.1 mmol/L (3.5-5.1); TOTAL PROTEIN, SERUM 7.3 g/dL (6.4-8.2)
[2019-02-16 08:51] LABS: CREATININE 7.5 mg/dL (0.6-1.3)
[2019-02-16] MEDS: ACIDOPHILUS/BULGARICUS 1 EACH TAB.CHEW GT SCH ×2 (09:17→21:39)
[2019-02-16] MEDS: SUCRALFATE 1 G/10 ML UDC GT SCH ×2 (09:17→21:39)
[2019-02-16] MEDS: SEVELAMER CARBONATE 0.8 GM POWD.PACK GT SCH ×3 (09:17→16:34)
[2019-02-16] MEDS: TRAMADOL HCL 50 MG TABLET GT SCH ×2 (09:18→16:34)
[2019-02-16] MEDS: PANTOPRAZOLE 40 MG/PACK PACK GT SCH ×2 (09:18→21:39)
[2019-02-16] MEDS: DAKINS HALF STRENGTH (0.25%) 480 ML BOTTLE TOP SCH (09:18)
[2019-02-16] MEDS: DOCUSATE SODIUM 100 MG CAPSULE PO SCH (09:18)
[2019-02-16] MEDS: HYDROGEL DRESSING 90 GM TUBE TP SCH (09:19)
[2019-02-16] MEDS: EPOETIN ALFA (10,000 UNIT) 10,000 UNIT/ML VIAL IV SCH (11:50)
[2019-02-16 12:00] VITALS: BP 119/65
[2019-02-16] MEDS ORDERED: VANCOMYCIN 500 MG in IV D5W 100 ML IV PRN (13:00)
[2019-02-16] MEDS ORDERED: VANCOMYCIN 1 GM in IV NS 0.9% 250 ML IV ONE (13:00)
[2019-02-16] MEDS: CEFEPIME 1 GM in IV D5W 50 ML IV SCH (14:32)
[2019-02-16 16:00] VITALS: BP 105/69
[2019-02-16] MEDS: DOCUSATE SODIUM LIQ 100 MG/10 ML UDC GT SCH (16:35)
[2019-02-16] MEDS: PROSOURCE / PROSTAT (PYXIS) 30 ML UDC GT SCH (16:35)
[2019-02-16] MEDS: ATENOLOL 25 MG TABLET GT SCH (16:36)
--- NOTE | 2019-02-16 19:15 | NUR ---
PATROL COMMANDER OPENING NOTES PATIENT IN BED, AWAKE, NONVERBAL. ON TELE MONITOR SR WITH HR 90S. ON MECHANICAL VENT TRACH SETTINGS ORDERED, NO SOB NOTED, RR EVEN AND UNLABORED, SATURATING 99%. PATIENT HAS RIGHT SOFT WRIST RESTRAINT NOTED, PER REPORT PATIENT TRIES TO REMOVE LINES, WILL CHECK PT PER PROTOCOL. G-TUBE NOTED, FEEDING RUNNING AT 60ML/HR, FLUSHING AND PATENT, NO RESIDUAL NOTED. IV SITE RIGHT AC 20G, FLUSHING AND PATENT, S/L. SAFETY MEASURES IN PLACE; BED IS LOCKED AND IN LOWEST POSITION, BED ALARM ON, SIDE RAILS UP X2, HOB ELEVATED AT ALL TIMES. WILL CONTINUE TO MONITOR PATIENT.
--- NOTE | 2019-02-16 19:33 | NUR ---
RN CLOSING NOTES PT IN BED SLEEPING PT VOMITED X2 DURING THE DAY. PT IS TOLERATING VENT SETTINGS. PT HAD ONE BOWEL MOVEMENT AND HAD DIALYSIS TODAY WITH 1000 ML OUTPUT. PT IS NOT ALERT. BED IS LOCKED AND IN LOWEST POSITION. ENDORSED CONTINUITY OF CARE TO MULTIGRAPHER RN.
[2019-02-16 20:00] VITALS: BP 119/77
[2019-02-17] VITALS: BP 106/69
[2019-02-17] MEDS: NEPRO 1,000 ML BOTTLE GT PRN ×2 (00:23→17:13)
[2019-02-17] MEDS: BLOOD SUGAR DIAGNOSTIC 1 EACH STRIP IN SCH ×4 (00:29→17:52)
[2019-02-17] MEDS: IPRATROPIUM NEB FS 0.5 MG/2.5 ML AMPUL.NEB IH SCH ×4 (01:33→19:55)
[2019-02-17] MEDS: ALBUTEROL FS 2.5 MG/0.5 ML VIAL.NEB NEB SCH ×4 (01:33→19:55)
[2019-02-17 04:00] VITALS: BP 114/74
--- NOTE | 2019-02-17 06:56 | NUR ---
MIDDLE SCHOOL PRINCIPAL CLOSING NOTES PATIENT IN BED, SLEEPING, BUT EASY TO AROUSE. PATIENT NONVERBAL, OPENS EYES. ON TELE MONITOR SR WITH HR 90S. ON MECHANICAL VENT TRACH SETTINGS ORDERED, NO SOB NOTED, RR EVEN AND UNLABORED, SATURATING 100%. PATIENT HAS RIGHT SOFT WRIST RESTRAINT FOR PATIENT SAFETY. CHECKED PULSES PER PROTOCOL. G-TUBE NOTED, FEEDING RUNNING AT 60ML/HR, FLUSHING AND PATENT, NO RESIDUAL NOTED. IV SITE RIGHT AC 20G, FLUSHING AND PATENT, S/L. SAFETY MEASURES IN PLACE; BED IS LOCKED AND IN LOWEST POSITION, BED ALARM ON, SIDE RAILS UP X2, HOB ELEVATED AT ALL TIMES. WILL CONTINUE TO MONITOR PATIENT. WILL ENDORSE TO AM RN FOR DENNIS.
--- NOTE | 2019-02-17 07:15 | NUR ---
RN INITIAL NOTE PATIENT IN BED, AWAKE OPENS EYES. NON VERBAL. ON TELE MONITOR, SR AT 90s. LAST HD 02/16 1000 OUT. HAS RIGHT SOFT WRIST RESTRAINT TO BE RENEWED TONIGHT AT 2300. ON NEPRO AT 60ML/HR. HAS RIGHT AC #20 SALINE LOCKED. AND RIGHT CW HD CATH. NO SIGNS OF ANY PAIN NOR SOB AT THIS TIME. BED LOCKED AND IN LOWEST POSITION. CALL LIGHT WITHIN REACH, WILL CONT TO MONITOR
[2019-02-17 08:00] VITALS: BP 118/68
[2019-02-17] MEDS: ACIDOPHILUS/BULGARICUS 1 EACH TAB.CHEW GT SCH ×2 (08:29→21:28)
[2019-02-17] MEDS: SEVELAMER CARBONATE 0.8 GM POWD.PACK GT SCH ×3 (08:29→16:58)
[2019-02-17] MEDS: SUCRALFATE 1 G/10 ML UDC GT SCH ×2 (08:30→21:27)
[2019-02-17] MEDS: DOCUSATE SODIUM LIQ 100 MG/10 ML UDC GT SCH ×2 (08:30→16:57)
[2019-02-17] MEDS: PANTOPRAZOLE 40 MG/PACK PACK GT SCH ×2 (08:30→21:27)
[2019-02-17] MEDS: TRAMADOL HCL 50 MG TABLET GT SCH ×2 (08:30→16:58)
[2019-02-17] MEDS: PROSOURCE / PROSTAT (PYXIS) 30 ML UDC GT SCH ×2 (09:04→17:12)
[2019-02-17] MEDS: DAKINS HALF STRENGTH (0.25%) 480 ML BOTTLE TOP SCH (09:06)
[2019-02-17 10:31] LABS: BASOPHILS # (AUTO) 0.1 /CMM (0.0-0.2); BASOPHILS % (AUTO) 0.6 % (0.0-2.0); EOSINOPHILS % (AUTO) 3.6 % (0.0-6.0); HEMATOCRIT 28 % (39-51); HEMOGLOBIN 9.1 g/dL (13.5-17.5); LYMPHOCYTES # (AUTO) 1.4 /CMM (0.8-4.8); LYMPHOCYTES % (AUTO) 8.9 % (20.0-44.0); MEAN CORPUSCULAR HGB CONC 32 g/dl (31.0-36.0); MEAN CORPUSCULAR VOLUME 87 fL (80-96); MONOCYTES # (AUTO) 2.1 /CMM (0.1-1.30); MONOCYTES % (AUTO) 13.3 % (2.0-12.0); NEUTROPHILS # (AUTO) 11.5 /CMM (1.8-8.9); NEUTROPHILS % (AUTO) 73.6 % (43.0-81.0); PLATELET COUNT (AUTO) 315 /CMM (150-450); RED BLOOD CELL COUNT(AUTO) 3.27 MIL/uL (4.5-6.0); WHITE BLOOD COUNT (AUTO) 15.6 K/uL (4.3-11.0)
[2019-02-17 10:46] LABS: ALBUMIN 2.5 g/dL (3.4-5.0); BILIRUBIN,TOTAL 0.4 mg/dL (0.2-1.0); CALCIUM, SERUM 9.3 mg/dL (8.5-10.1); CREATININE 6.3 mg/dL (0.6-1.3); MAGNESIUM 2.8 mg/dL (1.8-2.4); PHOSPHORUS 2.6 mg/dL (2.5-4.9); POTASSIUM 3.4 mmol/L (3.5-5.1)
[2019-02-17] MEDS: HYDROGEL DRESSING 90 GM TUBE TP SCH (11:58)
--- NOTE | 2019-02-17 11:58 | NUR ---
RN NOTE CALLED PHARMACY FOR A NEW CURASOL GEL. SCANNED LATE
[2019-02-17 12:00] VITALS: BP 110/64
[2019-02-17] MEDS: CEFEPIME 1 GM in IV D5W 50 ML IV SCH (14:18)
[2019-02-17 16:00] VITALS: BP 106/67
[2019-02-17] MEDS: ATENOLOL 25 MG TABLET GT SCH (16:58)
[2019-02-17] MEDS: MEROPENEM 500 MG in IV NS 0.9% 50 ML IV SCH (18:14)
--- NOTE | 2019-02-17 18:51 | NUR ---
RN CLOSING NOTE PATIENT IN BED, ON VENT SATING WELL 100%. NON VERBAL OPENS EYES. ON TELE MONITOR, SR. HAS RIGHT FOOT OPEN WOUNDS, AND SACRAL STAGE 4. WOUND CARE DONE. RIGHT SOFT WRIST RESTRAINT, TO BE RENEWED AT 2300. NEPRO RUNNING AT 60ML/HR. RIGHT AC #20 SL AND RIGHT CW HD CATH. NO INSULIN COVERAGE GIVEN. PER ID, CHANGE CEFEPIME TO MEROPENEM DUE TO INCREASE WBC. CONT OF CARE PER PRIMARY MD. BED LOCKED AND IN LOWEST POSITION. WILL ENDORSE TO NOC SHIFT FOR DENNIS
--- NOTE | 2019-02-17 19:45 | NUR ---
RN CLOSING NOTE PATIENT IN BED, ON VENT SATING WELL 100%. NON VERBAL OPENS EYES. ON TELE MONITOR, SR. HAS RIGHT FOOT OPEN WOUNDS, AND SACRAL STAGE 4. RIGHT SOFT WRIST RESTRAINT, TO BE RENEWED AT 2300. NEPRO RUNNING AT 60ML/HR. RIGHT AC #20 SL AND RIGHT CW HD CATH. BED LOCKED AND IN LOWEST POSITION. WILL CONTINUE TO MONITOR
[2019-02-17 20:00] VITALS: BP 106/71
[2019-02-18] VITALS: BP 109/69
[2019-02-18] MEDS: BLOOD SUGAR DIAGNOSTIC 1 EACH STRIP IN SCH ×5 (00:03→23:46)
[2019-02-18] MEDS: IPRATROPIUM NEB FS 0.5 MG/2.5 ML AMPUL.NEB IH SCH ×4 (01:30→19:10)
[2019-02-18] MEDS: ALBUTEROL FS 2.5 MG/0.5 ML VIAL.NEB NEB SCH ×4 (01:30→19:10)
[2019-02-18 04:00] VITALS: BP 136/88
--- NOTE | 2019-02-18 06:50 | NUR ---
SENIOR QA AUTOMATION ENGINEER NOTE, DUE TO DIALYSIS AT THIS TIME AND THE REQUEST OF VARNISH MAKER HELPER THE MEROPENEM WAS NOT ADMITTED UNTIL AFTER END OF DIALYSIS
[2019-02-18] MEDS: MEROPENEM 500 MG in IV NS 0.9% 50 ML IV SCH ×2 (06:51→18:14)
--- NOTE | 2019-02-18 07:26 | NUR ---
RN CLOSING NOTE PATIENT IN BED, ON VENT SATING WELL 100%. NON VERBAL OPENS EYES. ON TELE MONITOR, SR. HAS RIGHT FOOT OPEN WOUNDS, AND SACRAL STAGE 4. RIGHT SOFT WRIST RESTRAINT, RENEWED AT 2300. NEPRO RUNNING AT 60ML/HR. RIGHT AC #20 SL AND RIGHT CW HD CATH. BED LOCKED AND IN LOWEST POSITION. WILL ENDORSE TO AM RN FOR DENNIS.
[2019-02-18 07:34] LABS: BASOPHILS # (AUTO) 0.1 /CMM (0.0-0.2); BASOPHILS % (AUTO) 0.4 % (0.0-2.0); EOSINOPHILS % (AUTO) 2.9 % (0.0-6.0); HEMATOCRIT 30 % (39-51); HEMOGLOBIN 9.4 g/dL (13.5-17.5); LYMPHOCYTES # (AUTO) 1.4 /CMM (0.8-4.8); LYMPHOCYTES % (AUTO) 10.4 % (20.0-44.0); MEAN CORPUSCULAR HGB CONC 32 g/dl (31.0-36.0); MEAN CORPUSCULAR VOLUME 87 fL (80-96); MONOCYTES % (AUTO) 7.2 % (2.0-12.0); NEUTROPHILS # (AUTO) 10.6 /CMM (1.8-8.9); NEUTROPHILS % (AUTO) 79.1 % (43.0-81.0); PLATELET COUNT (AUTO) 317 /CMM (150-450); RED BLOOD CELL COUNT(AUTO) 3.43 MIL/uL (4.5-6.0); WHITE BLOOD COUNT (AUTO) 13.4 K/uL (4.3-11.0)
--- NOTE | 2019-02-18 07:50 | NUR ---
RN OPENING NOTES PATIENT IS RESTING IN BED COMFORTABLY AND IS RECEIVING HD. HE DOES NO SHOW S/SX OF DISTRESS AT THIS TIME. PATIENT IS ON VENT, PORTEX #8, AC 14, TV 550, FIO2 40%. HE IS NON-VERBAL BUT OPENS HIS EYES. HE HAS A R AC 20 G SL AND R CHEST WALL CATH. HE HAS NEPRO INFUSING AT 60 ML/HR, NO RESIDUAL AT THIS TIME. SOFT WRIST RESTRAINT ON R WRIST IS APPLIED, WILL REMOVE AND ASSESS ROUTINELY. SAFETY MEASURES HAVE BEEN IMPLEMENTED, CALL LIGHT IS WITHIN REACH, BED IN LOWEST AND LOCKED POSITION, SIDE RAILS UP X2, WILL MONITOR FOR ANY CHANGES.
[2019-02-18 08:00] VITALS: BP 166/84
[2019-02-18 08:12] LABS: ALBUMIN 2.7 g/dL (3.4-5.0); BILIRUBIN,TOTAL 0.4 mg/dL (0.2-1.0); CALCIUM, SERUM 9.7 mg/dL (8.5-10.1); CREATININE 5.8 mg/dL (0.6-1.3); MAGNESIUM 2.7 mg/dL (1.8-2.4); PHOSPHORUS 2.8 mg/dL (2.5-4.9); POTASSIUM 3.1 mmol/L (3.5-5.1); TOTAL PROTEIN, SERUM 7.5 g/dL (6.4-8.2)
[2019-02-18] MEDS: TRAMADOL HCL 50 MG TABLET GT SCH ×3 (09:14→17:24)
[2019-02-18] MEDS: SEVELAMER CARBONATE 0.8 GM POWD.PACK GT SCH ×3 (09:14→17:32)
[2019-02-18] MEDS: ACIDOPHILUS/BULGARICUS 1 EACH TAB.CHEW GT SCH ×2 (09:14→20:51)
[2019-02-18] MEDS: DOCUSATE SODIUM LIQ 100 MG/10 ML UDC GT SCH ×2 (09:14→17:24)
[2019-02-18] MEDS: SUCRALFATE 1 G/10 ML UDC GT SCH ×2 (09:14→20:51)
[2019-02-18] MEDS: PANTOPRAZOLE 40 MG/PACK PACK GT SCH ×2 (09:15→20:51)
[2019-02-18] MEDS: PROSOURCE / PROSTAT (PYXIS) 30 ML UDC GT SCH ×2 (09:16→17:32)
[2019-02-18] MEDS: DAKINS HALF STRENGTH (0.25%) 480 ML BOTTLE TOP SCH (09:17)
[2019-02-18] MEDS: HYDROGEL DRESSING 90 GM TUBE TP SCH (09:17)
[2019-02-18] MEDS ORDERED: EPOETIN ALFA (10,000 UNIT) 10,000 UNIT/ML VIAL IV SCH (10:00)
--- NOTE | 2019-02-18 11:11 | NUR ---
RECEIVED RESULTS FOR WOUND CULTURE OF RIGHT FOOT. PATIENT TESTED POSITIVE FOR MRSA, REPORT RECEIVED FROM TODD. WILL NOTIFY
[2019-02-18 12:00] VITALS: BP 105/69
[2019-02-18] MEDS: INSULIN REGULAR, HUMAN 100 UNIT/ML 3 ML VIAL SQ PRN (12:34)
[2019-02-18] MEDS: NEPRO 1,000 ML BOTTLE GT PRN (15:19)
[2019-02-18 16:00] VITALS: BP 123/78
[2019-02-18] MEDS: ATENOLOL 25 MG TABLET GT SCH (17:00)
--- NOTE | 2019-02-18 17:48 | NUR ---
WAITING FOR PHARMACY TO DELIVER VANCOMYCIN PRN POST HD.
--- NOTE | 2019-02-18 19:05 | NUR ---
RN CLOSING NOTES PATIENT IS RESTING IN BED COMFORTABLY, TOLERATING VENT SETTINGS WELL. PATIENT'S NEEDS HAVE BEEN MET. SAFETY MEASURES HAVE BEEN IMPLEMENTED, CALL LIGHT IS WITHIN REACH, BED IN LOWEST AND LOCKED POSITION, SIDE RAILS UP X2. PATIENT HAS BEEN ENDORSED TO NIGHTSHIFT NURSE
--- NOTE | 2019-02-18 19:15 | NUR ---
LOCKSTITCH COAT JOINER OPENING NOTES RECEIVED PATIENT IS BED SLEEPING, TOLERATING VENT SETTINGS WELL. NO SOB OR ACUTE DISTRESS NOTED AT THIS TIME. SAFETY MEASURES HAVE BEEN IMPLEMENTED, CALL LIGHT IS WITHIN REACH, BED IN LOWEST AND LOCKED POSITION, SIDE RAILS UP X2. WILL CONTINUE TO MONITOR.
[2019-02-18 20:00] VITALS: BP 116/78
[2019-02-19] VITALS: BP 120/66
[2019-02-19] MEDS: ALBUTEROL FS 2.5 MG/0.5 ML VIAL.NEB NEB SCH ×4 (01:15→19:46)
[2019-02-19] MEDS: IPRATROPIUM NEB FS 0.5 MG/2.5 ML AMPUL.NEB IH SCH ×4 (01:15→19:46)
[2019-02-19 04:00] VITALS: BP 110/61
[2019-02-19] MEDS: BLOOD SUGAR DIAGNOSTIC 1 EACH STRIP IN SCH ×3 (06:07→18:13)
[2019-02-19] MEDS: MEROPENEM 500 MG in IV NS 0.9% 50 ML IV SCH ×2 (06:09→17:02)
--- NOTE | 2019-02-19 07:11 | NUR ---
CAR VARNISHER CLOSING NOTES PATIENT IS BED SLEEPING, TOLERATING VENT SETTINGS WELL. NO SOB OR ACUTE DISTRESS NOTED AT THIS TIME. SAFETY MEASURES HAVE BEEN IMPLEMENTED, CALL LIGHT IS WITHIN REACH, BED IN LOWEST AND LOCKED POSITION, SIDE RAILS UP X2. WILL ENDORSE PATIENT TO AM RN FOR DENNIS.
--- NOTE | 2019-02-19 07:20 | NUR ---
RN OPENING NOTES RECEIVED REPORT AT BEDSIDE. PATIENT IS RESTING IN BED COMFORTABLY, A/OX1, NON VERBAL BUT OPEN HIS EYES WHEN CALLED BY HIS NAME. . NO SIGN OF RESPIRATORY DISTRESS OR SOB NOTED. PATIENT IS ON VENT, PORTEX #8, AC 14, TV 550, FIO2 40%. R AC 20 G TKO 3 ML/HR AND R CHEST WALL HD CATH. G-TUBE FEEDING NEPRO INFUSING AT 60 ML/HR, NO RESIDUAL AT THIS TIME. SOFT WRIST RESTRAINT ON R WRIST IS APPLIED, WILL REMOVE AND ASSESS ROUTINELY. SAFETY MEASURES HAVE BEEN IMPLEMENTED, CALL LIGHT IS WITHIN REACH, BED IN LOWEST AND LOCKED POSITION, SIDE RAILS UP X2, WILL MONITOR FOR ANY CHANGES.
[2019-02-19 08:00] VITALS: BP 124/80
[2019-02-19 08:07] LABS: CREATININE 6.7 mg/dL (0.6-1.3); POTASSIUM 3.2 mmol/L (3.5-5.1)
[2019-02-19] MEDS: DOCUSATE SODIUM LIQ 100 MG/10 ML UDC GT SCH ×2 (08:34→17:02)
[2019-02-19] MEDS: PANTOPRAZOLE 40 MG/PACK PACK GT SCH ×2 (08:34→21:08)
[2019-02-19] MEDS: SEVELAMER CARBONATE 0.8 GM POWD.PACK GT SCH ×3 (08:34→17:02)
[2019-02-19] MEDS: SUCRALFATE 1 G/10 ML UDC GT SCH ×2 (08:34→21:08)
[2019-02-19] MEDS: TRAMADOL HCL 50 MG TABLET GT SCH ×2 (08:36→09:36)
[2019-02-19] MEDS: ACIDOPHILUS/BULGARICUS 1 EACH TAB.CHEW GT SCH ×2 (08:36→21:08)
[2019-02-19] MEDS: DAKINS HALF STRENGTH (0.25%) 480 ML BOTTLE TOP SCH (08:38)
[2019-02-19] MEDS: HYDROGEL DRESSING 90 GM TUBE TP SCH (08:39)
[2019-02-19] MEDS: PROSOURCE / PROSTAT (PYXIS) 30 ML UDC GT SCH ×2 (08:40→17:04)
[2019-02-19 12:00] VITALS: BP_SYST 125; BP_SYST 126; BP_DIAS 85; BP_DIAS 88
[2019-02-19] MEDS ORDERED: POTASSIUM CHLORIDE 20 MEQ TAB.PRT.SR PO ONE (12:30)
[2019-02-19 16:00] VITALS: BP 126/88
--- NOTE | 2019-02-19 16:43 | NUR ---
PIGMENT PROCESSOR NOTE PUT THE FOLLOWING ORDER REQUESTED ON INTERVENTION AND LAB MADE AWARE: "SENSIS OF THE ACINETOBACTER TO MERREM AND FINAL SENSIS OF THE MRSA WELL ENTEROCOCCUS 1. ACINETOBACTER BAUMANNII/HAEMOL 2. E. COLI ESBL"
[2019-02-19] MEDS: ATENOLOL 25 MG TABLET GT SCH (17:03)
--- NOTE | 2019-02-19 19:26 | NUR ---
OCCUPATIONAL THERAPIST'S ASSISTANT CLOSING NOTE PATIENT IS RESTING IN BED COMFORTABLY, TOLERATING VENT SETTINGS WELL. NO SIGN OF RESPIRATORY/CARDIAC DISTRESS OR SOB NOTED AT THIS TIME. NO SIGNIFICANT CHANGE DURING THE SHIFT NOTED. ALL NEEDS ATTENDED. WOUND CARE DONE PER ORDER. SAFETY ANS ASPIRATION MEASURES HAVE BEEN IMPLEMENTED, CALL LIGHT IS WITHIN REACH, BED IN LOWEST AND LOCKED POSITION, SIDE RAILS UP X3, HOB ELEVATED. ENDORSED TO THE AIR ANALYST NURSE FOR DENNIS.
--- NOTE | 2019-02-19 19:30 | NUR ---
LAND LEASING EXAMINER OPENING NOTES RECEIVED PATIENT IS BED SLEEPING, TOLERATING VENT SETTINGS WELL. NO SOB OR ACUTE DISTRESS NOTED AT THIS TIME. HOB ELEVATED. SAFETY MEASURES HAVE BEEN IMPLEMENTED, CALL LIGHT IS WITHIN REACH, BED IN LOWEST AND LOCKED POSITION, SIDE RAILS UP X2. WILL CONTINUE TO MONITOR.
[2019-02-19 20:00] VITALS: BP 117/73
[2019-02-20] VITALS (8 sets, daily range): BP systolic 100–128; BP diastolic 64–88
[2019-02-20] MEDS: BLOOD SUGAR DIAGNOSTIC 1 EACH STRIP IN SCH ×4 (00:10→17:50)
[2019-02-20] MEDS: ALBUTEROL FS 2.5 MG/0.5 ML VIAL.NEB NEB SCH ×4 (01:52→19:16)
[2019-02-20] MEDS: IPRATROPIUM NEB FS 0.5 MG/2.5 ML AMPUL.NEB IH SCH ×4 (01:53→19:16)
[2019-02-20] MEDS: MEROPENEM 500 MG in IV NS 0.9% 50 ML IV SCH ×2 (05:16→17:50)
[2019-02-20 07:04] LABS: BASOPHILS # (AUTO) 0.2 /CMM (0.0-0.2); BASOPHILS % (AUTO) 1.2 % (0.0-2.0); EOSINOPHILS % (AUTO) 4.7 % (0.0-6.0); HEMATOCRIT 30 % (39-51); HEMOGLOBIN 9.4 g/dL (13.5-17.5); LYMPHOCYTES # (AUTO) 1.6 /CMM (0.8-4.8); LYMPHOCYTES % (AUTO) 11.5 % (20.0-44.0); MEAN CORPUSCULAR HGB CONC 31 g/dl (31.0-36.0); MEAN CORPUSCULAR VOLUME 87 fL (80-96); MONOCYTES # (AUTO) 1.8 /CMM (0.1-1.30); MONOCYTES % (AUTO) 12.6 % (2.0-12.0); NEUTROPHILS # (AUTO) 9.7 /CMM (1.8-8.9); PLATELET COUNT (AUTO) 333 /CMM (150-450); RED BLOOD CELL COUNT(AUTO) 3.47 MIL/uL (4.5-6.0); WHITE BLOOD COUNT (AUTO) 13.9 K/uL (4.3-11.0)
[2019-02-20 07:19] LABS: CALCIUM, SERUM 10.2 mg/dL (8.5-10.1); MAGNESIUM 3.3 mg/dL (1.8-2.4); PHOSPHORUS 2.7 mg/dL (2.5-4.9)
--- NOTE | 2019-02-20 07:25 | NUR ---
MARKETING SERVICES MANAGER CLOSING NOTE PATIENT IS RESTING IN BED COMFORTABLY, TOLERATING VENT SETTINGS WELL. NO SIGN OF RESPIRATORY/CARDIAC DISTRESS OR SOB NOTED AT THIS TIME. NO SIGNIFICANT CHANGE DURING THE SHIFT NOTED. ALL NEEDS ATTENDED. WOUND CARE DONE PER ORDER. SAFETY ANS ASPIRATION MEASURES HAVE BEEN IMPLEMENTED, CALL LIGHT IS WITHIN REACH, BED IN LOWEST AND LOCKED POSITION, SIDE RAILS UP X3, HOB ELEVATED. ENDORSED TO THE AM RN FOR DENNIS.
[2019-02-20 07:27] LABS: CREATININE 8.1 mg/dL (0.6-1.3)
--- NOTE | 2019-02-20 08:00 | NUR ---
RENTAL MANAGEMENT TRAINEE NOTE PATIENT IN BED ,AWAKE OPEN BOTH EYES, NEW HL ON RT HAND INSERTED WITH GOOD BLOOD RETURN, WITH TRACH TO VENT SETTING ORDERED , AMBU BAG AT HOB AT ALL TIME WITH GTUBE FEEDING ORDERED, KEEP HOB ELEVATED AT ALL TIME, NO RESIDUAL NOTED , RT CW HD CATH IN PLACE, BED IN LOWEST AND LOCKED POSITION ON [employer] FOR SKIN MANAGEMENT, WILL CONT TO MONITOR CLOSELY, ON TELE MONITOR SR HR 78,
[2019-02-20] MEDS: DAKINS HALF STRENGTH (0.25%) 480 ML BOTTLE TOP SCH (09:00)
[2019-02-20] MEDS: DOCUSATE SODIUM LIQ 100 MG/10 ML UDC GT SCH ×2 (09:23→16:35)
[2019-02-20] MEDS: PANTOPRAZOLE 40 MG/PACK PACK GT SCH (09:23)
[2019-02-20] MEDS: SUCRALFATE 1 G/10 ML UDC GT SCH (09:23)
[2019-02-20] MEDS: ACIDOPHILUS/BULGARICUS 1 EACH TAB.CHEW GT SCH (09:24)
[2019-02-20] MEDS: SEVELAMER CARBONATE 0.8 GM POWD.PACK GT SCH ×3 (09:25→16:34)
[2019-02-20] MEDS: TRAMADOL HCL 50 MG TABLET GT SCH ×2 (09:25→16:36)
[2019-02-20] MEDS: PROSOURCE / PROSTAT (PYXIS) 30 ML UDC GT SCH ×2 (09:25→16:45)
[2019-02-20] MEDS: HYDROGEL DRESSING 90 GM TUBE TP SCH (09:40)
[2019-02-20] MEDS: NEPRO 1,000 ML BOTTLE GT PRN (09:57)
[2019-02-20] MEDS ORDERED: MERO500V IV (10:40)
[2019-02-20] MEDS ORDERED: RXVAN XX (10:40)
--- NOTE | 2019-02-20 10:44 | NUR ---
SPECIAL DELIVERY MESSENGER NOTE CALLED TO PHARMACY X2 TO BRING DAKIN SOLUTION STATED THAT WILL BRING
--- NOTE | 2019-02-20 11:00 | NUR ---
telephone switchboard operator note spoke with daughter ,telephone consent obtained for picc line also aware that patient will be discharge to snf
--- NOTE | 2019-02-20 12:00 | NUR ---
tele grout sewer line repairer note on hd as ordered
--- NOTE | 2019-02-20 14:45 | NUR ---
teletypewriter installer note hd completed ,no fluids out [id number]
--- NOTE | 2019-02-20 15:45 | NUR ---
telemarketer note called to [facility] spoke with Noreen, report given
[2019-02-20] MEDS: ATENOLOL 25 MG TABLET GT SCH (16:38)
--- NOTE | 2019-02-20 18:21 | NUR ---
MACHINE LAY OUT WORKER NOTES PT IS ASLEEP COMFORTABLE NO SIGNS OF LABORED BREATHING. PICC LINE INTACT. PER DR ORDER NO CHEST X RAY NEEDED. ORAL CARE AND SUCTION PERFORMED. PT ACU CHECK DONE 109 MG/ DL. ALL SAFETY MEASURES DONE. PT BED IN LOWEST POSITION. SIDE RAILS UP X2.
--- NOTE | 2019-02-20 19:24 | NUR ---
TELE/RN NOTES RECEIVED PATIENT IN BED, RESTING COMFORTABLY AT THIS TIME, NO S/S OF ACUTE DISTRESS NOTED, RESPIRATION EVEN AND UNLABORED, NO SOB NOTED, PATIENT AWAKE, OPEN EYES, NO S/S OF PAIN NOTED AT THIS TIME, TRACH INTACT, PATENT, CONNECTED TO VENT WITH PRESCRIBED SETTINGS, G- TUBE IN PLACE, PATENT, CONNECTED TO FEEDING ORDERED, NO RESIDUAL NOTED AT THIS TIME. HOB ELEVATED, RIGHT AC [address], PATENT, LEFT ARM PICC LINE IN PLACE, NO S/S OF INFECTION NOTED AT THE SITES. SAFETY MAINTAINED, BED AT THE LOWEST, LOCKED POSITIONED. KEPT CLEAN AND DRY. BILATERAL SOFT WRIST RESTRAINT IN PLACE. CALL LIGHT WITHIN REACH. PATIENT IS PENDING DISCHARGE, WAITING FOR TRANSPORTATION, WILL CONTINUE TO MONITOR PATIENT CONDITION PER PLAN OF CARE.
--- NOTE | 2019-02-20 21:40 | NUR ---
PATIENT LEFT THE FACILITY IN STABLE CONDITION, ACCOMPANIED BY 2 EMT'S AND RT. NO S/S OF ACUTE DISTRESS NOTED UPON DISCHARGE, NO S/S OF PAIN NOTED, TRACH INTACT, PATENT, CONNECTED TO VENT WITH PRESCRIBED SETTINGS, PATIENT TOLERATING WELL, O2 SATURATION 98%. G-TUBE IN PLACE, CLAMPED AT THIS TIME. EWA WATTS MADE AWARE.
== END 2019-02-20 22:21 | DRG 710 ==
LOC: ER 14:01 → TELE1 19:43
PROVIDERS: ADMIT Internal Medicine; ATTEND Internal Medicine
PROC: 5A1955Z Respiratory Ventilation, Greater than 96 Consecutive Hours (ICD-10-PCS; 2019-02-12)
PROC: 0KBP0ZZ Excision of Left Hip Muscle, Open Approach (ICD-10-PCS; principal; 2019-02-14)
PROC: 0JBQ0ZZ Excision of Right Foot Subcutaneous Tissue and Fascia, Open Approach (ICD-10-PCS; principal; 2019-02-14)
PROC: 0QBL0ZZ Excision of Right Tarsal, Open Approach (ICD-10-PCS; principal; 2019-02-14)
PROC: 0KBN0ZZ Excision of Right Hip Muscle, Open Approach (ICD-10-PCS; principal; 2019-02-14)
PROC: 5A1D70Z Performance of Urinary Filtration, Intermittent, Less than 6 Hours Per Day (ICD-10-PCS; principal; 2019-02-14)
PROC: 02HV33Z Insertion of Infusion Device into Superior Vena Cava, Percutaneous Approach (ICD-10-PCS; 2019-02-20)
PROC: B548ZZA Ultrasonography of Superior Vena Cava, Guidance (ICD-10-PCS; 2019-02-20)
DX: A41.9 Sepsis, unspecified organism (principal); Z99.11 Dependence on respirator [ventilator] status; G93.40 Encephalopathy, unspecified; J96.10 Chronic respiratory failure, unspecified whether with hypoxia or hypercapnia; L89.154 Pressure ulcer of sacral region, stage 4; A04.72 Enterocolitis due to Clostridium difficile, not specified as recurrent; L89.894 Pressure ulcer of other site, stage 4; L89.893 Pressure ulcer of other site, stage 3; E11.22 Type 2 diabetes mellitus with diabetic chronic kidney disease; N18.6 End stage renal disease; E44.1 Mild protein-calorie malnutrition; R13.10 Dysphagia, unspecified; I69.354 Hemiplegia and hemiparesis following cerebral infarction affecting left non-dominant side; N39.0 Urinary tract infection, site not specified; Z99.2 Dependence on renal dialysis; M24.561 Contracture, right knee; M24.562 Contracture, left knee; Z74.01 Bed confinement status; N40.0 Benign prostatic hyperplasia without lower urinary tract symptoms; Z79.4 Long term (current) use of insulin; I12.0 Hypertensive chronic kidney disease with stage 5 chronic kidney disease or end stage renal disease; Z93.1 Gastrostomy status; Z68.24 Body mass index [BMI] 24.0-24.9, adult; E11.69 Type 2 diabetes mellitus with other specified complication; M86.8X7 Other osteomyelitis, ankle and foot; L98.8 Other specified disorders of the skin and subcutaneous tissue; D50.0 Iron deficiency anemia secondary to blood loss (chronic)
CPT/HCPCS: 31720; 36415; 36569; 36600; 71045-TC; 73630-TC; 80048-TC; 80053-TC; 80061-TC; 80076-TC; 80202-TC; 81000-TC; 82803-TC; 82962-TC; 83605-TC; 83735-TC; 83970; 84100-TC; 84155; 84165; 84484-TC; 85025-TC; 85652-TC; 86706; 87040-TC; 87070-TC; 87081-TC; 87086-TC; 87186-TC; 87340; 90935-TC; 94003-TC; 94760-TC; 94762-TC; A4216; A4217; A4623; A6248; A6253; A6403; C1751; G0378; J0692; J0696; J0885; J1815; J2185; J3370; J7040; J7050; J7060

== ENCOUNTER 2019-02-25 12:27 | Inpatient (IN) | payer MEDICAID ==
[~2019-02-25] VITALS: Ht 165.1 cm; Wt 83.5 kg
[~2019-02-25 12:27] MED LIST changes: +MERO500V IV; -METO5SOL GT; -POTA20LI5 GT; +RXVAN XX; -SUCR1ORA GT; +SUCR1ORA4 GT
--- NOTE | 2019-02-25 12:34 | NUR ---
RT PT CAME IN FOR SEPSIS RECD PT TRACHED ON PORTEX 8 WITH AC 14 550 40% +5 SX MODERATE PALE THICK BAG AND MASK AT HOB PLUGGED IN RED OUTLET WILL CONT TO MONITOR Addendum: 02/25/19 at 1405 by SIENA GARRETT RT Amended: Links added.
--- NOTE | 2019-02-25 12:41 | NUR ---
"[facility]ulance unit 41 From [facility] "trach/vent w/Coffee ground emesis x1 today. R Foot MRSA-Contact iso" PT AAOX0, OBTUNDED, PT ON MONITOR, MD AT BEDSIDE FOR EVAL
[2019-02-25] MEDS ORDERED: ONDANSETRON HCL/PF 4 MG/2 ML VIAL IV ONE (13:00)
[2019-02-25] MEDS ORDERED: ONDANSETRON HCL/PF 4 MG/2 ML VIAL ONE (13:00)
[2019-02-25 13:10] LABS: BASOPHILS # (AUTO) 0.1 /CMM (0.0-0.2); BASOPHILS % (AUTO) 0.4 % (0.0-2.0); EOSINOPHILS % (AUTO) 0.4 % (0.0-6.0); HEMATOCRIT 34 % (39-51); HEMOGLOBIN 10.5 g/dL (13.5-17.5); LYMPHOCYTES # (AUTO) 1.5 /CMM (0.8-4.8); LYMPHOCYTES % (AUTO) 6.7 % (20.0-44.0); MEAN CORPUSCULAR HGB CONC 31 g/dl (31.0-36.0); MEAN CORPUSCULAR VOLUME 88 fL (80-96); MONOCYTES # (AUTO) 1.6 /CMM (0.1-1.30); MONOCYTES % (AUTO) 7.3 % (2.0-12.0); NEUTROPHILS # (AUTO) 18.5 /CMM (1.8-8.9); NEUTROPHILS % (AUTO) 85.2 % (43.0-81.0); PLATELET COUNT (AUTO) 318 /CMM (150-450); RED BLOOD CELL COUNT(AUTO) 3.89 MIL/uL (4.5-6.0); WHITE BLOOD COUNT (AUTO) 21.7 K/uL (4.3-11.0)
[2019-02-25] MEDS ORDERED: PANTOPRAZOLE 40 MG VIAL ONE (13:14)
[2019-02-25 13:16] LABS: APPEARANCE,URINE Cloudy (CLEAR); BILIRUBIN,URINE MODERATE (NEGATIVE); BLOOD, URINE Trace-lysed Ery/uL (NEGATIVE); COLOR,URINE Dark (YELLOW); KETONES,URINE 15 (NEGATIVE); LEUKOCYTE ESTERASE ,URINE Trace (NEGATIVE); NITRITE, URINE Negative (NEGATIVE); PH,URINE 5.5 (5.0-8.0); PROTEIN,URINE 100 mg/dl (NEGATIVE); UGLUCOSE Negative (NEGATIVE); UROBILINOGEN,URINE 0.2 EU/dL (0.2)
[2019-02-25] MEDS ORDERED: CHLO473M5 MM (13:18)
[2019-02-25] MEDS ORDERED: ACET-868 PO (13:18)
[2019-02-25] MEDS ORDERED: MAGN400O6 PO (13:18)
[2019-02-25] MEDS ORDERED: NUT.237L67 GT (13:18)
[2019-02-25] MEDS ORDERED: ONDA4TAB5 GT (13:18)
[2019-02-25] MEDS ORDERED: BISA10SU11 RC (13:18)
[2019-02-25] MEDS ORDERED: NA P133E RC (13:18)
[2019-02-25 13:20] LABS: CALCIUM, SERUM 10.3 mg/dL (8.5-10.1); CARBON DIOXIDE 27 mmol/L (21-32); CHLORIDE 107 mmol/L (98-107); CREATININE 7.4 mg/dL (0.6-1.3); GLUCOSE 101 mg/dL (74-106); POTASSIUM 3.4 mmol/L (3.5-5.1); SODIUM SERUM 146 mmol/L (136-145); UREA NITROGEN, BLOOD 43 mg/dL (7-18)
[2019-02-25 13:24] LABS: ALANINE AMINOTRANSFERASE 24 U/L (12-78); ALBUMIN 2.9 g/dL (3.4-5.0); ALKALINE PHOSPHATASE 121 U/L (46-116); ASPARTATE AMINOTRANSFERASE 18 U/L (15-37); BILIRUBIN,DIRECT 0.1 mg/dL (0.0-0.2); BILIRUBIN,TOTAL 0.6 mg/dL (0.2-1.0); TOTAL PROTEIN, SERUM 7.8 g/dL (6.4-8.2)
[2019-02-25] MEDS ORDERED: PIPERACILLIN /TAZOBACTAM 3.375 G in IV D5W 50 ML IV ONE (13:30)
[2019-02-25] MEDS ORDERED: PANTOPRAZOLE 40 MG VIAL IV ONE (13:30)
[2019-02-25] MEDS ORDERED: VANCOMYCIN 1.25 GM in IV D5W 500 ML IV ONE (13:30)
[2019-02-25] MEDS ORDERED: IV NS 0.9% 500 ML BAG IV ONE (13:30)
[2019-02-25] MEDS ORDERED: VANCOMYCIN 1 GM in IV D5W 250 ML IV ONE (13:30)
[2019-02-25 13:35] LABS: BACTERIA,URINE 1+ /HPF (None Seen); SQUAMOUS EPITHELIAL CELL,UR Few /HPF (None Seen)
--- NOTE | 2019-02-25 13:36 | NUR ---
CALLED DR RUTLEDGE'S OFFICE REQUESTING A DR TO DR SOLOMON. AWAITING CALL BACK
--- NOTE | 2019-02-25 13:53 | NUR ---
CALLED HOUSE SUP FOR [facility]
--- NOTE | 2019-02-25 13:57 | NUR ---
[facility] BED 120-1 GIVEN
--- NOTE | 2019-02-25 14:47 | NUR ---
REPORT GIVEN TO TAWANA FORREST FOR DENNIS, PT WILL BE TRANSPORTED TO [facility] 1ST FLOOR VIA ACLS PROTOCL
[2019-02-25 14:55] VITALS: BP 110/72
--- NOTE | 2019-02-25 14:55 | NUR ---
[facility] RN NOTES RECEIVED PT FROM ER, DX GI BLEED BY DR. MASSIMO LÓPEZ, OBTUNDED, WITH PROTEX 8 TO MECHANICAL VENT, SETTINGS ORDERED, BREATHING EVEN AND UNLABORED, SR HR 77 ON TELE MONITOR, NO SIGNS OF PAIN OR DISCOMFORT, LEFT UPPER ARM PICC LINE 2 LUMEN, IN PLACE, ONLY 1 PORT WORKING, CDI DRESSING, GT IN PLACE, CLAMPED, NPO EXCEPT MEDS PER DR. LÓPEZ. PHOTOS OF SKIN ISSUES TAKEN AND PLACED INSIDE THE CHART, PATIENT MADE COMFORTABLE. DR. LÓPEZ AWRE OF ADMISSION, ALL ADMIT ORDERS CARRIED OUT. ISOLATION PRECAUTION OBSERVED, BED LOW LOCKED, CALL LIGHT WITHIN REACH. WILL CONT TO MONITOR.
[2019-02-25] MEDS ORDERED: FEE PK DOSING 1 MIN EA MC ONE (15:48)
[2019-02-25] MEDS ORDERED: DEXTROSE 50%-WATER 50 ML DISP.SYRIN IV PRN (16:00)
[2019-02-25] MEDS ORDERED: ONDANSETRON HCL/PF 4 MG/2 ML VIAL IV PRN (16:00)
[2019-02-25] MEDS ORDERED: BISACODYL SUPP (10 MG) 10 MG/SUPP.RECT SUPP.RECT RC PRN (16:30)
[2019-02-25] MEDS ORDERED: NA PHOS,M-B/NA PHOS,DI-BA 1 EA ENEMA RC PRN (16:30)
[2019-02-25] MEDS ORDERED: ACETAMINOPHEN 325 MG TABLET PO PRN (16:30)
[2019-02-25] MEDS ORDERED: MAGNESIUM HYDROXIDE 30 ML UDC PO PRN (16:30)
[2019-02-25] MEDS ORDERED: ALBUTEROL FS 2.5 MG/0.5 ML VIAL.NEB NEB PRN (16:30)
[2019-02-25] MEDS ORDERED: IV D5/ 0.9% NACL 1,000 ML IV SCH (17:00)
[2019-02-25] MEDS: COLISTIMETHATE SODIUM 100 MG in IV NS 0.9% 50 ML IV SCH (17:14)
[2019-02-25] MEDS: NEXIUM 40 MG VIAL IV SCH (17:15)
[2019-02-25] MEDS: DOCUSATE SODIUM LIQ 100 MG/10 ML UDC GT SCH (17:15)
[2019-02-25] MEDS: TRAMADOL HCL 50 MG TABLET GT SCH (17:15)
[2019-02-25] MEDS: BLOOD SUGAR DIAGNOSTIC 1 EACH STRIP IN SCH ×2 (17:20)
[2019-02-25] MEDS: ATENOLOL 25 MG TABLET GT SCH (17:23)
[2019-02-25] MEDS: MEROPENEM 500 MG in IV NS 0.9% 50 ML IV SCH (18:09)
[2019-02-25 18:40] LABS: HEMOGLOBIN 9.7 g/dL (13.5-17.5)
[2019-02-25] MEDS ORDERED: IPRATROPIUM NEB FS 0.5 MG/2.5 ML AMPUL.NEB NEB PRN (19:30)
--- NOTE | 2019-02-25 19:35 | NUR ---
[facility] RN NOTES ALL NEEDS MET. NO OTHER SIGNIFICANT CHANGE IN CONDITION. NOT IN ANY DISTRESS. RESTING COMFORTABLY. ENDORSED TO NEXT SHIFT FOR DENNIS.
[2019-02-25] MEDS: ALBUTEROL FS 2.5 MG/0.5 ML VIAL.NEB NEB SCH (19:37)
[2019-02-25] MEDS: IPRATROPIUM NEB FS 0.5 MG/2.5 ML AMPUL.NEB NEB SCH (19:38)
--- NOTE | 2019-02-25 19:38 | NUR ---
RT Notes Received PT trached on [facility] vent on charted settings. No signs of resp distress/SOB noted at this time. BUSINESS TRAINER done. HHN tx given. PT suctioned. Alarms set and audible. Vent connected to red outlet. Will cont to monitor. Addendum: 02/25/19 at 2039 by KATIE ALEXANDER RT Amended: Links added.
[2019-02-25] MEDS: ACIDOPHILUS/BULGARICUS 1 EACH TAB.CHEW GT SCH (21:17)
[2019-02-25] MEDS: SUCRALFATE 1 G/10 ML UDC GT SCH (21:17)
[2019-02-25] MEDS: METRONIDAZOLE 500 MG TABLET PO SCH (21:17)
[2019-02-26] VITALS: BP 105/68
[2019-02-26] MEDS: ALBUTEROL FS 2.5 MG/0.5 ML VIAL.NEB NEB SCH ×4 (00:56→19:18)
[2019-02-26] MEDS: IPRATROPIUM NEB FS 0.5 MG/2.5 ML AMPUL.NEB NEB SCH ×4 (00:56→19:18)
[2019-02-26 00:59] LABS: HEMOGLOBIN 9.7 g/dL (13.5-17.5)
[2019-02-26] MEDS: INSULIN REGULAR, HUMAN 100 UNIT/ML 3 ML VIAL SQ PRN ×4 (01:14→05:40)
[2019-02-26 04:00] VITALS: BP 115/70
[2019-02-26] MEDS: METRONIDAZOLE 500 MG TABLET PO SCH ×3 (05:38→21:27)
[2019-02-26] MEDS: BLOOD SUGAR DIAGNOSTIC 1 EACH STRIP IN SCH ×6 (05:38→18:46)
--- NOTE | 2019-02-26 06:42 | NUR ---
RN NOTES IN BED, WITH NO APPARENT DISTRESS. BREATHING EVEN AND UNLABORED. VENT SETTING WELL TOLERATED. NO SIGNIFICANT CHANGE OF CONDITION. NO PHYSICAL MANIFESTATION OF PAIN OR DISCOMFORT. KEPT CLEAN AND DRY. WILL ENDORSE TO NEXT SHIFT FOR CONTINUITY OF CARE.
[2019-02-26 07:25] LABS: CALCIUM, SERUM 9.8 mg/dL (8.5-10.1); PHOSPHORUS 4.4 mg/dL (2.5-4.9); POTASSIUM 3.6 mmol/L (3.5-5.1)
[2019-02-26 07:34] LABS: BASOPHILS # (AUTO) 0.1 /CMM (0.0-0.2); BASOPHILS % (AUTO) 0.9 % (0.0-2.0); EOSINOPHILS % (AUTO) 2.7 % (0.0-6.0); HEMATOCRIT 33 % (39-51); HEMOGLOBIN 10.1 g/dL (13.5-17.5); LYMPHOCYTES # (AUTO) 1.6 /CMM (0.8-4.8); MEAN CORPUSCULAR HGB CONC 31 g/dl (31.0-36.0); MEAN CORPUSCULAR VOLUME 88 fL (80-96); MONOCYTES # (AUTO) 1.6 /CMM (0.1-1.30); MONOCYTES % (AUTO) 10.6 % (2.0-12.0); NEUTROPHILS % (AUTO) 74.8 % (43.0-81.0); PLATELET COUNT (AUTO) 335 /CMM (150-450); RED BLOOD CELL COUNT(AUTO) 3.74 MIL/uL (4.5-6.0); WHITE BLOOD COUNT (AUTO) 14.7 K/uL (4.3-11.0)
--- NOTE | 2019-02-26 07:35 | NUR ---
RN NOTE: RECEIVED PATIENT IN BED AWAKE, CAN SPONTANEOUSLY OPEN HIS EYES AND NONVERBAL. RESPIRATION EVEN AND UNLABORED SATURATING 100% WITH CURRENT VENT SETTING. 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 TRACH CARE WAS PROVIDED. DRESSING WAS CHANGED. ON HARD METALS HAND ENGRAVER SR HR= 75. HOB ELEVATED. BED ALARMED AND LOCKED AT ALL TIMES. BED ON LOWEST POSITION. NPO EXCEPT MEDICATIONS. GT CLAMPED AND NO GASTRIC RESIDUAL NOTED. (L) UPPER ARM PICC LINE WITH 2 PORTS INTACT AND PATENT INFUSING D5NS @30ML/HR. CALL LIGHT WITHIN REACH. NEEDS ANTICIPATED. AWAITING FOR GI CONSULT FOR TODAY. NO COFFEE GROUND EMESIS NOTED.
--- NOTE | 2019-02-26 07:50 | NUR ---
RN NOTE: INFORMED CONSENT FOR HEMODIALYSIS WAS SIGNED BY DR. RUTLEDGE. PATIENT AGREED TO RECEIVE HD. ABLE TO NOD AND ANSWER SIMPLE QUESTION BY NODDING. (R) CHEST WALL PERMACATH WAS NOTED WITH DRY DRESSING IN PLACED. DRESSING INTACT AND DRY.
[2019-02-26 07:53] LABS: CREATININE 8.5 mg/dL (0.6-1.3)
[2019-02-26 08:00] VITALS: BP 101/62
[2019-02-26] MEDS: COLISTIMETHATE SODIUM 100 MG in IV NS 0.9% 50 ML IV SCH (08:29)
[2019-02-26] MEDS: SUCRALFATE 1 G/10 ML UDC GT SCH ×2 (08:29→21:27)
[2019-02-26] MEDS: NEXIUM 40 MG VIAL IV SCH ×2 (08:29→17:11)
[2019-02-26] MEDS: DOCUSATE SODIUM LIQ 100 MG/10 ML UDC GT SCH ×2 (08:29→17:10)
[2019-02-26] MEDS: ACIDOPHILUS/BULGARICUS 1 EACH TAB.CHEW GT SCH ×2 (08:30→21:27)
[2019-02-26] MEDS: TRAMADOL HCL 50 MG TABLET GT SCH ×2 (08:30→17:11)
[2019-02-26] MEDS: CHLORHEXIDINE GLUCONATE 15 ML UDC MM SCH (08:30)
--- NOTE | 2019-02-26 08:34 | NUR ---
RT Notes Received PT trached on [facility] vent on charted settings. No signs of respiratory distress/SOB noted at this time. MATERIAL LOADER done. HHN tx given. PT suctioned. Alarms set and audible. Vent connected to red outlet. Will continue to monitor. Addendum: 02/26/19 at 0835 by HAIM GODWIN RT Amended: Links added.
[2019-02-26] MEDS ORDERED: NEXIUM 40 MG VIAL IV SCH (09:00)
[2019-02-26] MEDS ORDERED: ALTEPLASE CATHFLO 2 MG/VIAL IV ONE (11:30)
[2019-02-26 12:00] VITALS: BP 95/64
[2019-02-26 12:46] LABS: HEMOGLOBIN 9.2 g/dL (13.5-17.5)
--- NOTE | 2019-02-26 14:11 | NUR ---
RN NOTE: DR. MCFARLANE (GI) ASSESSED THE PATIENT AND MADE HIM AWARE THAT PATIENT HAS NO EPISODE OF COFFEE GROUND EMESIS AT THIS TIME, BUT ON SERIAL H/H BLOOD DRAW. PER DR. MCFARLANE, OK TO START THE GT FEEDING FOR THE PATIENT. DR. RUTLEDGE WAS INFORMED ABOUT IT AND WITH ORDERS TO RESUME GT FEEDING AND DC THE D5NS IVF. ORDER NOTED AND CARRIED OUT.
[2019-02-26] MEDS: NEPRO 1,000 ML BOTTLE GT SCH (15:30)
[2019-02-26 16:00] VITALS: BP 104/67
[2019-02-26] MEDS: MEROPENEM 500 MG in IV NS 0.9% 50 ML IV SCH (17:11)
[2019-02-26] MEDS: Z GUARD REMEDY 2 OZ OINT TP SCH ×2 (17:12→21:27)
[2019-02-26] MEDS: ATENOLOL 25 MG TABLET GT SCH (18:00)
[2019-02-26 19:19] LABS: HEMOGLOBIN 9.2 g/dL (13.5-17.5)
--- NOTE | 2019-02-26 19:45 | NUR ---
RN NOTE: BEDSIDE REPORT WAS GIVEN TO PM SHIFT NURSE FOR CONTINUITY OF CARE. PATIENT REMAINED ON CONTACT ISOLATION FOR MRSA OF THE (R) FOOT WOUND. GT FEEDING OF NEPHRO @60ML/HR WITH NO GASTRIC RESIDUAL NOTED.
--- NOTE | 2019-02-26 19:46 | NUR ---
PT RECEIVED ON [facility] VENT ON THE FOLLOWING NOTED SETTINGS: AC 14, 550, 40%, +5. PT SX'D. NO RESP DISTRESS OR SOB NOTED AT THIS TIME. PT'S TRACH IS PATENT AND SECURE. BREATHING TX GIVEN, NO ADVERSE REACTIONS NOTED. VENT IS PLUGGED INTO RED OUTLET AND ALARMS ARE ON AND AUDIBLE. AMBU BAG AND SPARE TRACH ARE AT BEDSIDE. WILL CONT TO MONITOR PT. Addendum: 02/26/19 at 1947 by PAOLA LYONS RT Amended: Links added.
[2019-02-26 20:00] VITALS: BP 97/56
[2019-02-27] VITALS: BP 101/61
[2019-02-27 00:13] LABS: HEMOGLOBIN 9.1 g/dL (13.5-17.5)
[2019-02-27] MEDS: BLOOD SUGAR DIAGNOSTIC 1 EACH STRIP IN SCH ×4 (00:48→17:27)
[2019-02-27] MEDS: IPRATROPIUM NEB FS 0.5 MG/2.5 ML AMPUL.NEB NEB SCH ×4 (01:01→20:24)
[2019-02-27] MEDS: ALBUTEROL FS 2.5 MG/0.5 ML VIAL.NEB NEB SCH ×4 (01:01→20:24)
[2019-02-27 04:00] VITALS: BP 91/55
[2019-02-27] MEDS: METRONIDAZOLE 500 MG TABLET PO SCH ×3 (05:57→21:54)
--- NOTE | 2019-02-27 07:05 | NUR ---
RN NOTES RECEIVED PT ON BED, OPENS AT TIMES , NONVERBAL , VENT/TRACH DEPENDENT, ON TELE SR HR IN 70'S , NEPRO AT 60CC/ HR RUNNING VIA GT , TOLERATING WELL, NO RESIDUAL NOTED,LEFT UPPER CHEST WALL HD CATH SITE AND L UPPER ARM PICC LINE SITE , CLEAN, DRY AND INTACT, SR UP x3, CALL LIGHT WITHIN EASY REACH, BED LOCKED AND IN LOWEST POSITION, CONTINUE TO MONITOR
[2019-02-27 07:21] LABS: BASOPHILS # (AUTO) 0.1 /CMM (0.0-0.2); BASOPHILS % (AUTO) 0.6 % (0.0-2.0); HEMATOCRIT 28 % (39-51); HEMOGLOBIN 8.7 g/dL (13.5-17.5); LYMPHOCYTES # (AUTO) 1.4 /CMM (0.8-4.8); LYMPHOCYTES % (AUTO) 8.2 % (20.0-44.0); MEAN CORPUSCULAR HGB CONC 32 g/dl (31.0-36.0); MEAN CORPUSCULAR VOLUME 88 fL (80-96); MONOCYTES # (AUTO) 1.7 /CMM (0.1-1.30); MONOCYTES % (AUTO) 9.9 % (2.0-12.0); NEUTROPHILS # (AUTO) 13.4 /CMM (1.8-8.9); NEUTROPHILS % (AUTO) 78.3 % (43.0-81.0); PLATELET COUNT (AUTO) 288 /CMM (150-450); RED BLOOD CELL COUNT(AUTO) 3.15 MIL/uL (4.5-6.0); WHITE BLOOD COUNT (AUTO) 17.1 K/uL (4.3-11.0)
[2019-02-27 07:37] LABS: ALBUMIN 2.4 g/dL (3.4-5.0); BILIRUBIN,TOTAL 0.6 mg/dL (0.2-1.0); CALCIUM, SERUM 9.2 mg/dL (8.5-10.1); MAGNESIUM 2.6 mg/dL (1.8-2.4); PHOSPHORUS 4.2 mg/dL (2.5-4.9); POTASSIUM 3.4 mmol/L (3.5-5.1); TOTAL PROTEIN, SERUM 6.6 g/dL (6.4-8.2)
[2019-02-27 07:43] LABS: CREATININE 8.5 mg/dL (0.6-1.3)
[2019-02-27 08:00] VITALS: BP 95/54
[2019-02-27] MEDS: SUCRALFATE 1 G/10 ML UDC GT SCH ×2 (08:35→21:54)
[2019-02-27] MEDS: ACIDOPHILUS/BULGARICUS 1 EACH TAB.CHEW GT SCH ×2 (08:36→21:54)
[2019-02-27] MEDS: TRAMADOL HCL 50 MG TABLET GT SCH ×2 (08:36→17:22)
[2019-02-27] MEDS: DOCUSATE SODIUM LIQ 100 MG/10 ML UDC GT SCH ×2 (08:36→17:21)
[2019-02-27] MEDS: CHLORHEXIDINE GLUCONATE 15 ML UDC MM SCH (08:36)
[2019-02-27] MEDS: NEXIUM 40 MG VIAL IV SCH ×2 (08:39→17:22)
[2019-02-27] MEDS: Z GUARD REMEDY 2 OZ OINT TP SCH ×2 (08:42→21:56)
[2019-02-27] MEDS: COLISTIMETHATE SODIUM 100 MG in IV NS 0.9% 50 ML IV SCH (09:26)
[2019-02-27 12:00] VITALS: BP 95/48
--- NOTE | 2019-02-27 12:00 | NUR ---
RN NOTES VSS STABLE, TRACH CARE AND SUCTIONING DONE , TOLERATING TF AT 60 CC/HR WELL, CONTINUE TO MONITOR.
[2019-02-27] MEDS: NEPRO 1,000 ML BOTTLE GT SCH (12:14)
[2019-02-27 12:46] LABS: HEMOGLOBIN 8.8 g/dL (13.5-17.5)
[2019-02-27 16:00] VITALS: BP 96/63
[2019-02-27] MEDS: PROSOURCE / PROSTAT (PYXIS) 30 ML UDC GT SCH (17:22)
[2019-02-27] MEDS: ATENOLOL 25 MG TABLET GT SCH (17:23)
--- NOTE | 2019-02-27 18:00 | NUR ---
RN NOTES NO SIGNIFICANT CHANGES NOTED ON THIS SHIFT, LEE WILKERSON TO GONZALO SHIFT NURSE FOR CONTINUITY OF CARE .
[2019-02-27 18:21] LABS: HEMOGLOBIN 9.5 g/dL (13.5-17.5)
[2019-02-27 20:00] VITALS: BP_SYST 94; BP_SYST 95; BP_DIAS 59
--- NOTE | 2019-02-27 20:00 | NUR ---
EQUIPMENT HIRE MANAGER NOTE PT IN BED WITH EYES CLOSED. RESPONDS TO TACTTILE STIMULATION. ON VENT/TRACH TOLERATING THE SETTINGS WELL. KEPT HOB ELEVATED. NO DISTRESS OR DISCOMFORT NOTED. NO S/S OF PAIN NOTED. ON TELE SR HR 83. GTF NEPRO INFUSING AT 60 ML/HR, O ML RESIDUAL NOTED. NO S/S OF HYPO OR HYPERGLYCEMIA NOTED. KEPT HIM DRY AND CLEAN. REPOSITION HIM FOR SKIN MANAGEMENT. SIDE RAILS UP X 3 AND CALL LIGHT WITHIN REACH. VSS. CONTINUE TO MONITOR HIM.
[2019-02-28] VITALS: BP 94/56
[2019-02-28] MEDS: IPRATROPIUM NEB FS 0.5 MG/2.5 ML AMPUL.NEB NEB SCH ×4 (01:37→19:38)
[2019-02-28] MEDS: ALBUTEROL FS 2.5 MG/0.5 ML VIAL.NEB NEB SCH ×4 (01:37→19:38)
[2019-02-28 04:00] VITALS: BP 96/62
[2019-02-28] MEDS: METRONIDAZOLE 500 MG TABLET PO SCH ×3 (05:30→21:09)
[2019-02-28] MEDS: BLOOD SUGAR DIAGNOSTIC 1 EACH STRIP IN SCH ×4 (05:58→16:27)
--- NOTE | 2019-02-28 06:40 | NUR ---
HYBRID DERIVATIVES TRADER NOTE PT IN BED ASLEEP, AROUSABLE. NO DISTRESS OR DISCOMFORT NOTED. NO S/S OF PAIN NOTED. JPICC LINE INTACT AND PATENT. RT CW HD CATH INTACT. ON TELE SR .SIDE RAILS UP X 3 AND CALL LIGHT WITHIN REACH. WILL ENDORSE TO DAY SHIFT NURSE FOR CONTINUE TO CARE.
[2019-02-28 07:17] LABS: BASOPHILS # (AUTO) 0.1 /CMM (0.0-0.2); BASOPHILS % (AUTO) 0.8 % (0.0-2.0); EOSINOPHILS % (AUTO) 4.8 % (0.0-6.0); HEMATOCRIT 28 % (39-51); HEMOGLOBIN 8.7 g/dL (13.5-17.5); LYMPHOCYTES # (AUTO) 1.3 /CMM (0.8-4.8); LYMPHOCYTES % (AUTO) 9.8 % (20.0-44.0); MEAN CORPUSCULAR HGB CONC 32 g/dl (31.0-36.0); MEAN CORPUSCULAR VOLUME 88 fL (80-96); MONOCYTES # (AUTO) 1.8 /CMM (0.1-1.30); MONOCYTES % (AUTO) 13.5 % (2.0-12.0); NEUTROPHILS # (AUTO) 9.5 /CMM (1.8-8.9); NEUTROPHILS % (AUTO) 71.1 % (43.0-81.0); PLATELET COUNT (AUTO) 223 /CMM (150-450); RED BLOOD CELL COUNT(AUTO) 3.14 MIL/uL (4.5-6.0); WHITE BLOOD COUNT (AUTO) 13.4 K/uL (4.3-11.0)
[2019-02-28 07:36] LABS: ALBUMIN 2.2 g/dL (3.4-5.0); BILIRUBIN,TOTAL 0.5 mg/dL (0.2-1.0); CALCIUM, SERUM 8.9 mg/dL (8.5-10.1); MAGNESIUM 2.5 mg/dL (1.8-2.4); PHOSPHORUS 4.1 mg/dL (2.5-4.9); POTASSIUM 3.2 mmol/L (3.5-5.1); TOTAL PROTEIN, SERUM 6.2 g/dL (6.4-8.2)
[2019-02-28 07:39] LABS: CREATININE 7.6 mg/dL (0.6-1.3)
[2019-02-28 08:00] VITALS: BP 92/60
[2019-02-28] MEDS: DOCUSATE SODIUM LIQ 100 MG/10 ML UDC GT SCH ×2 (08:33→16:25)
[2019-02-28] MEDS: SUCRALFATE 1 G/10 ML UDC GT SCH ×2 (08:33→21:09)
[2019-02-28] MEDS: CHLORHEXIDINE GLUCONATE 15 ML UDC MM SCH (08:33)
[2019-02-28] MEDS: ACIDOPHILUS/BULGARICUS 1 EACH TAB.CHEW GT SCH ×2 (08:33→21:09)
[2019-02-28] MEDS: TRAMADOL HCL 50 MG TABLET GT SCH ×2 (08:34→16:25)
[2019-02-28] MEDS: DAKINS QUARTER STRENGTH (0.125%) 480 ML BOTTLE TOP SCH (08:34)
[2019-02-28] MEDS: PROSOURCE / PROSTAT (PYXIS) 30 ML UDC GT SCH ×3 (08:34→16:25)
[2019-02-28] MEDS: NEXIUM 40 MG VIAL IV SCH ×2 (09:00→16:25)
[2019-02-28] MEDS: COLISTIMETHATE SODIUM 100 MG in IV NS 0.9% 50 ML IV SCH (09:00)
[2019-02-28] MEDS: Z GUARD REMEDY 2 OZ OINT TP SCH ×2 (09:01→21:09)
--- NOTE | 2019-02-28 11:31 | NUR ---
non-verbal, secondary to trach, on vent. No sign of distress. Daughter, Ganga Silva, called, and informed of the procedure by Dr Chaudhry R FOOT SERIAL DEBRIDMENT, consent signed, in the presence of another witness, a rn on the floor.
[2019-02-28 12:00] VITALS: BP 91/55
[2019-02-28] MEDS ORDERED: EPOETIN ALFA (10,000 UNIT) 10,000 UNIT/ML VIAL IV SCH (15:00)
--- NOTE | 2019-02-28 15:17 | NUR ---
contracted, stiff, total care. Right lateral foot, and medial , dressing done today by wound care. No visitor noted during the shift.
[2019-02-28 16:00] VITALS: BP 83/60
[2019-02-28] MEDS: ATENOLOL 25 MG TABLET GT SCH (16:26)
--- NOTE | 2019-02-28 16:43 | NUR ---
bp at baseline all shifts, except , the one obtained at 5pm, in the 80's 83/60, with HR 93. Took liberties to hold ATENOLOL this evening, after discussing with on charge on rounds
--- NOTE | 2019-02-28 19:10 | NUR ---
FLOWER ARRANGER OPENING NOTES RECEIVED PATIENT IN BED, OPENS EYES/RESPONDS TO TACTILE STIMULATION. ON MECHANICAL VENT/TRACH TOLERATING THE SETTINGS WELL, SATURATION 100%. KEPT HOB ELEVATED. NO DISTRESS OR DISCOMFORT NOTED. ON TELE MONITOR SR-ST WITH HR 90S-100. GTF NEPRO INFUSING AT 60 ML/HR, O ML RESIDUAL NOTED. WILL KEEP PATIENT CLEAN AND DRY. SAFETY MEASURES IN PLACE; SIDE RAILS UPX3, BED LOCKED AND IN LOWEST POSITION, CALL LIGHT WITHIN REACH, SUCTION EQUIPMENTS AT BEDSIDE. WILL CONTINUE TO MONITOR PT. Addendum: 03/01/19 at 0733 by TEDDY SOMMER RN PER AM NURSE, NEW GTUBE FEEDING BOTTLE WAS HUNG BY HER BEFORE SHIFT CHANGE.
[2019-02-28 20:00] VITALS: BP 110/62
[2019-03-01] VITALS (7 sets, daily range): BP systolic 91–117; BP diastolic 53–73
[2019-03-01] MEDS: BLOOD SUGAR DIAGNOSTIC 1 EACH STRIP IN SCH ×5 (00:39→23:19)
[2019-03-01] MEDS: IPRATROPIUM NEB FS 0.5 MG/2.5 ML AMPUL.NEB NEB SCH ×4 (01:41→19:23)
[2019-03-01] MEDS: ALBUTEROL FS 2.5 MG/0.5 ML VIAL.NEB NEB SCH ×4 (01:41→19:23)
[2019-03-01] MEDS: METRONIDAZOLE 500 MG TABLET PO SCH ×3 (05:41→20:49)
--- NOTE | 2019-03-01 07:10 | NUR ---
HEMODIALYSIS RN OPENING RECEIVED PATIENT WITH EYES OPEN, UNABLE TO FOLLOW COMMAND. ATTACHED TO [facility] VENT, PULSE OX ATTACHED, ALARM AUDIBLE. NO ACUTE DISTRESS OR SOB NOTED. TELE MONITOR ATTACHED, SINUS RHYTHM 89. NO VOMITING AT THIS TIME, HEAD OF BED ELEVATED. L UA PICC C/D/I, PATENT. R CW HD CATH C/D/I, NO S/S BLEEDING NOTED. BED LOCKED, LOW, SIDE RAILS UPX2, BED ALARM ON, CALL LIGHT WITHIN REACH, WILL CONTINUE TO MONITOR.
[2019-03-01 07:23] LABS: CALCIUM, SERUM 9.2 mg/dL (8.5-10.1); POTASSIUM 3.8 mmol/L (3.5-5.1)
[2019-03-01 07:29] LABS: CREATININE 9.5 mg/dL (0.6-1.3)
--- NOTE | 2019-03-01 07:30 | NUR ---
SHEETER HELPER CLOSING NOTES PATIENT SLEEPING IN BED, BUT EASY TO AROUSE, OPENS EYES/RESPONDS TO TACTILE STIMULATION. ON MECHANICAL VENT/TRACH TOLERATING SETTINGS WELL, SATURATION 98%. KEPT HOB ELEVATED. NO DISTRESS OR DISCOMFORT NOTED. ON TELE MONITOR SR-ST WITH HR 90S-100. GT FLUSHING AND PATENT, MINIMAL RESIDUAL NOTED, SITE C/D/I, CLAMPED. KEPT PATIENT CLEAN AND DRY. REPOSITIONED Q2H. SAFETY MEASURES IN PLACE; SIDE RAILS UPX3, BED LOCKED AND IN LOWEST POSITION, CALL LIGHT WITHIN REACH, SUCTION EQUIPMENT AT BEDSIDE. ENDORSED TO AM RN FOR DENNIS.
--- NOTE | 2019-03-01 07:31 | NUR ---
RECEIVED CRITICAL RESULT FROM ELISA @LAB CREATININE
--- NOTE | 2019-03-01 08:00 | NUR ---
PATIENT SEEN BY DR. SEWELL. AWARE OF CRIT CREATININE LEVEL, NO DIALYSIS ORDERED. AWARE OF TEMP 100.1. ORDERS RECEIVED
[2019-03-01 09:44] LABS: BASOPHILS # (AUTO) 0.1 /CMM (0.0-0.2); BASOPHILS % (AUTO) 0.9 % (0.0-2.0); EOSINOPHILS % (AUTO) 5.3 % (0.0-6.0); HEMATOCRIT 30 % (39-51); HEMOGLOBIN 9.5 g/dL (13.5-17.5); LYMPHOCYTES # (AUTO) 1.4 /CMM (0.8-4.8); LYMPHOCYTES % (AUTO) 8.5 % (20.0-44.0); MEAN CORPUSCULAR HGB CONC 32 g/dl (31.0-36.0); MEAN CORPUSCULAR VOLUME 87 fL (80-96); MONOCYTES % (AUTO) 12.1 % (2.0-12.0); NEUTROPHILS % (AUTO) 73.2 % (43.0-81.0); PLATELET COUNT (AUTO) 279 /CMM (150-450); RED BLOOD CELL COUNT(AUTO) 3.47 MIL/uL (4.5-6.0); WHITE BLOOD COUNT (AUTO) 16.4 K/uL (4.3-11.0)
--- NOTE | 2019-03-01 09:51 | NUR ---
RESULTS FOR CXR - PICC LINE NURSE AND PODIATRY ASSISTANT CONTACTED, DR. SEWELL AWARE + ORDER OBTAINED, CONSENT RECEIVED VIA PHONE BY PATIENTS DAUGHTER FOR PICC LINE INSERTION
[2019-03-01] MEDS: PROSOURCE / PROSTAT (PYXIS) 30 ML UDC GT SCH ×3 (09:53→18:27)
[2019-03-01] MEDS: TRAMADOL HCL 50 MG TABLET GT SCH ×2 (09:53→18:21)
[2019-03-01] MEDS: CHLORHEXIDINE GLUCONATE 15 ML UDC MM SCH (09:53)
[2019-03-01] MEDS: DOCUSATE SODIUM LIQ 100 MG/10 ML UDC GT SCH ×2 (09:53→18:21)
[2019-03-01] MEDS: SUCRALFATE 1 G/10 ML UDC GT SCH ×2 (09:53→20:49)
[2019-03-01] MEDS: ACIDOPHILUS/BULGARICUS 1 EACH TAB.CHEW GT SCH ×2 (09:54→20:49)
[2019-03-01] MEDS: NEXIUM 40 MG VIAL IV SCH ×2 (09:54→18:20)
[2019-03-01] MEDS: DAKINS QUARTER STRENGTH (0.125%) 480 ML BOTTLE TOP SCH (09:55)
[2019-03-01] MEDS: ACETAMINOPHEN 325 MG TABLET PO PRN (09:56)
--- NOTE | 2019-03-01 11:10 | NUR ---
WOUND CARE CONSULT WOUND CARE RECEIVED CONSULT FOR R FOOT AND SACRUM WOUND. WOUND CARE WILL DEFER CONSULT AND TREATMENT PLANS TO PLASTIC SURGICAL TEAM WHO ARE CURRENTLY FOLLOWING THIS PATIENT. PATIENT WITH LAMONTE AT 11, ALL PRESSURE ULCER PREVENTION MEASURES ARE NOTED TO BE IN PLACE AT THIS TIME. WILL SEE PRN.
[2019-03-01] MEDS: COLISTIMETHATE SODIUM 100 MG in IV NS 0.9% 50 ML IV SCH (11:27)
[2019-03-01] MEDS: NEPRO 1,000 ML BOTTLE GT SCH (11:27)
[2019-03-01] MEDS: Z GUARD REMEDY 2 OZ OINT TP SCH ×2 (11:28→20:54)
[2019-03-01 11:51] LABS: OCCULT BLOOD STOOL NEGATIVE (NEGATIVE)
--- NOTE | 2019-03-01 13:20 | NUR ---
PICC LINE DIGITAL RESEARCH ANALYST AT BEDSIDE
[2019-03-01] MEDS: ATENOLOL 25 MG TABLET GT SCH (18:00)
--- NOTE | 2019-03-01 18:58 | NUR ---
RIG SITE ENGINEER CLOSING NO ACUTE DISTRESS OR SOB NOTED. ATTACHED TO TELE + PULSE OX. TEMP @1600 WNL. WOUND CARE COMPLETED. MEDS GIVEN ORDERED. WILL ENDORSE TO NOC RN FOR DENNIS
--- NOTE | 2019-03-01 20:00 | NUR ---
RN INITIAL NOTES RECEIVED REPORT FROM EVAN. RECEIVED PATIENT IN BED, A&OX1, OPENS EYES. ON [facility] VENT TOLERATING SETTINGS ORDERED. NO ACUTE DISTRESS OR SOB NOTED. SINUS RHYTHM 94 0N TELE. HEAD OF BED ELEVATED. L UA PICC C/D/I, PATENT, S/P PICC LINE REPLACED TODAY. R CW HD CATH C/D/I, NO S/S BLEEDING NOTED. BED LOCKED, LOW, SIDE RAILS UPX2, BED ALARM ON, CALL LIGHT WITHIN REACH, WILL CONTINUE TO MONITOR.
[2019-03-02] VITALS: BP 107/67
[2019-03-02] MEDS: ALBUTEROL FS 2.5 MG/0.5 ML VIAL.NEB NEB SCH ×4 (01:34→19:37)
[2019-03-02] MEDS: IPRATROPIUM NEB FS 0.5 MG/2.5 ML AMPUL.NEB NEB SCH ×4 (01:34→19:37)
[2019-03-02 04:00] VITALS: BP 107/71
[2019-03-02] MEDS: METRONIDAZOLE 500 MG TABLET PO SCH ×3 (05:19→20:46)
[2019-03-02] MEDS: BLOOD SUGAR DIAGNOSTIC 1 EACH STRIP IN SCH ×4 (05:21→23:48)
--- NOTE | 2019-03-02 07:25 | NUR ---
ICING MACHINE OPERATOR INITIAL NOTES RECEIVED REPORT AT BEDSIDE. A&OX1, OPENS EYES. ON [facility] V[facility] TOLERATING SETTINGS ORDERED. NO ACUTE DISTRESS OR SOB NOTED. ON CATHEAD WORKER SINUS RHYTHM 98. HEAD OF BED ELEVATED. ASPIRATION PRECAUTION MAINTAINED. WALL SUCTION SET UP. L UA PICC PATENT, INTACT, FLUSHED WELL. R CW HD NO S/S BLEEDING NOTED. BED LOCKED, LOW, SIDE RAILS UPX2, BED ALARM ON, CALL LIGHT WITHIN REACH, WILL CONTINUE TO MONITOR.
--- NOTE | 2019-03-02 07:28 | NUR ---
RN CLOSING NOTES NO SIGNIFICANT CHANGE IN PATIENT CONDITION. ALL NEEDS ANTICIPATED AND MET. WILL ENDORSE TO AM RN FOR DENNIS
[2019-03-02 08:00] VITALS: BP 99/66
[2019-03-02 08:13] LABS: ALBUMIN 2.3 g/dL (3.4-5.0); BILIRUBIN,TOTAL 0.5 mg/dL (0.2-1.0); CALCIUM, SERUM 9.5 mg/dL (8.5-10.1); MAGNESIUM 2.9 mg/dL (1.8-2.4); PHOSPHORUS 4.8 mg/dL (2.5-4.9); POTASSIUM 4.3 mmol/L (3.5-5.1); TOTAL PROTEIN, SERUM 6.6 g/dL (6.4-8.2)
[2019-03-02 08:15] LABS: CREATININE 11.4 mg/dL (0.6-1.3)
[2019-03-02] MEDS: DOCUSATE SODIUM LIQ 100 MG/10 ML UDC GT SCH ×2 (08:37→17:49)
[2019-03-02] MEDS: CHLORHEXIDINE GLUCONATE 15 ML UDC MM SCH (08:37)
[2019-03-02] MEDS: PROSOURCE / PROSTAT (PYXIS) 30 ML UDC GT SCH ×3 (08:37→17:50)
[2019-03-02] MEDS: SUCRALFATE 1 G/10 ML UDC GT SCH ×2 (08:37→20:46)
[2019-03-02] MEDS: ACIDOPHILUS/BULGARICUS 1 EACH TAB.CHEW GT SCH ×2 (08:37→20:46)
[2019-03-02] MEDS: NEXIUM 40 MG VIAL IV SCH ×2 (08:38→17:49)
[2019-03-02] MEDS: TRAMADOL HCL 50 MG TABLET GT SCH ×2 (08:38→17:49)
[2019-03-02] MEDS: DAKINS QUARTER STRENGTH (0.125%) 480 ML BOTTLE TOP SCH (08:39)
[2019-03-02] MEDS: Z GUARD REMEDY 2 OZ OINT TP SCH ×2 (08:40→20:47)
[2019-03-02 08:44] LABS: BASOPHILS # (AUTO) 0.1 /CMM (0.0-0.2); BASOPHILS % (AUTO) 0.5 % (0.0-2.0); EOSINOPHILS % (AUTO) 6.4 % (0.0-6.0); HEMATOCRIT 30 % (39-51); HEMOGLOBIN 9.1 g/dL (13.5-17.5); LYMPHOCYTES # (AUTO) 1.4 /CMM (0.8-4.8); LYMPHOCYTES % (AUTO) 9.5 % (20.0-44.0); MEAN CORPUSCULAR HGB CONC 31 g/dl (31.0-36.0); MEAN CORPUSCULAR VOLUME 88 fL (80-96); MONOCYTES # (AUTO) 1.9 /CMM (0.1-1.30); MONOCYTES % (AUTO) 12.6 % (2.0-12.0); NEUTROPHILS # (AUTO) 10.6 /CMM (1.8-8.9); PLATELET COUNT (AUTO) 258 /CMM (150-450); RED BLOOD CELL COUNT(AUTO) 3.36 MIL/uL (4.5-6.0); WHITE BLOOD COUNT (AUTO) 14.9 K/uL (4.3-11.0)
[2019-03-02] MEDS: COLISTIMETHATE SODIUM 100 MG in IV NS 0.9% 50 ML IV SCH (08:56)
--- NOTE | 2019-03-02 09:04 | NUR ---
RT PT RECEIVED ON TRACH'D WITH PORTEX #8 CUFFED ON [facility] VENT WITH SETTINGS PER MD ORDER. PERFORMANCE IMPROVEMENT DIRECTOR DONE. ALARMS ON AND AUDIBLE. SPARE TRACH AND AMBU BAG PLACED AT BEDSIDE. SUCTIONED SMALL AMOUNTS OF THICK, PALE YELLOW SECRETIONS. VENT PLUGGED INTO RED OUTLET. TX GIVEN ORDERED. NO ADVERSE REACTIONS OBSERVED. NO SOB OR SIGNS OF DISTRESS NOTED AT THIS TIME. WILL CONTINUE TO MONITOR CLOSELY. Addendum: 03/02/19 at 0959 by JAVID HART RT Amended: Links added.
[2019-03-02 12:00] VITALS: BP 99/70
--- NOTE | 2019-03-02 13:00 | NUR ---
PIN MACHINE OPERATOR NOTE HEMODIALYSIS DONE. 0 OUTPUT.
--- NOTE | 2019-03-02 13:30 | NUR ---
DIGITAL LEARNING PLATFORMS MANAGER NOTE HAD A CALL FROM LAB. PATIENT IS GRAM + COOCI IN CULTURE. DR. RUTLEDGE MADE AWARE.
[2019-03-02] MEDS: NEPRO 1,000 ML BOTTLE GT SCH (13:53)
[2019-03-02 16:00] VITALS: BP 113/69
[2019-03-02] MEDS: ATENOLOL 25 MG TABLET GT SCH (17:50)
--- NOTE | 2019-03-02 19:17 | NUR ---
RN CLOSING NOTES NO SIGNIFICANT CHANGE IN PATIENT CONDITION. PT RESTING COMFORTABLY. ON TAXI TRUCK DRIVER SR WITH HR 100. ALL NEEDS ATTENDANT AND MET. WILL ENDORSE TO PM RN FOR DENNIS
--- NOTE | 2019-03-02 19:25 | NUR ---
MICA PLATE LAYER HAND NOTE PATIENT IN BED SEMI FOWLERS OBTUNDED. PATIENT OPENS EYES TO PAINFUL STIMULI BUT NOT TO NAME OR LIGHT TOUCH, PATIENT BREATHING EVEN AND UNLABORED, TRACH MIDLINE. PATIENT TOLERATING VENT SETTINGS. PATIENT SR ON THE MONITOR. PATIENT TURNED AND REPOSITIONED. 40 ML RESIDUAL NOTED ON GTUBE FEEDING. RN WILL CONTINUE TO MONITOR FOR CHANGES. SAFETY AND ISOLATION PRECAUTIONS IN PLACE AND FOLLOWED. BED IN LOWEST LOCKED POSITION SIDE RAILS UP X 2.
--- NOTE | 2019-03-02 19:56 | NUR ---
RT NOTE PT RECEIVED ON [facility] VENT ON THE FOLLOWING NOTED SETTINGS. PT SX'D. NO RESP DISTRESS NOTED. BREATHING TX GIVEN, NO ADVERSE REACTIONS NOTED. VENT PLUGGED INTO RED OUTLET. ALARMS ARE ON AND AUDIBLE. AMBU BAG AND SPARE TRACH ARE AT BEDSIDE. WILL CONT TO MONITOR PT. Addendum: 03/02/19 at 1958 by PAOLA LYONS RT Amended: Links added.
[2019-03-02 20:00] VITALS: BP 93/58
[2019-03-03] VITALS: BP 79/46
--- NOTE | 2019-03-03 00:14 | NUR ---
PUMP ROOM OPERATOR NOTE PATIENT HYPOTENSIVE AND HR SLIGHTLY ELEVATED, PAGED AWAITING ORDERS, TUBE FEEDING STOPPED, HOB LOWERED FROM 30 TO 2O AND FEET ELEVATED TO PROMOTE VENOUS RETURN. PATIENT SKIN WARM AND DRY, APPEARS ASYMPTOMATIC AT THIS TIME. Addendum: 03/03/19 at 0020 by MICHAEL AMEZQUITA RN Amended: Links added.
--- NOTE | 2019-03-03 00:30 | NUR ---
BRANCH SPECIALIST NOTE AFTER POSITION CHANGES BP 95/56 MAP 67, ELEVATED HOB BACK TO 30 DEGREES TURNED ON FEEDING, KEEPING FEET ELEVATED NO MD CALL BACK OF YET. PATIENT BP STABLE ASYMPTOMATIC
[2019-03-03] MEDS: ALBUTEROL FS 2.5 MG/0.5 ML VIAL.NEB NEB SCH ×4 (01:07→19:23)
[2019-03-03] MEDS: IPRATROPIUM NEB FS 0.5 MG/2.5 ML AMPUL.NEB NEB SCH ×4 (01:08→19:23)
[2019-03-03 04:00] VITALS: BP 106/69
[2019-03-03] MEDS: METRONIDAZOLE 500 MG TABLET PO SCH ×3 (05:52→20:35)
[2019-03-03] MEDS: BLOOD SUGAR DIAGNOSTIC 1 EACH STRIP IN SCH ×4 (05:52→23:51)
[2019-03-03 06:45] LABS: BASOPHILS # (AUTO) 0.1 /CMM (0.0-0.2); BASOPHILS % (AUTO) 0.4 % (0.0-2.0); EOSINOPHILS % (AUTO) 5.7 % (0.0-6.0); HEMATOCRIT 29 % (39-51); HEMOGLOBIN 8.9 g/dL (13.5-17.5); LYMPHOCYTES # (AUTO) 1.7 /CMM (0.8-4.8); LYMPHOCYTES % (AUTO) 9.4 % (20.0-44.0); MEAN CORPUSCULAR HGB CONC 31 g/dl (31.0-36.0); MEAN CORPUSCULAR VOLUME 86 fL (80-96); MONOCYTES # (AUTO) 2.4 /CMM (0.1-1.30); MONOCYTES % (AUTO) 13.4 % (2.0-12.0); NEUTROPHILS # (AUTO) 12.6 /CMM (1.8-8.9); NEUTROPHILS % (AUTO) 71.1 % (43.0-81.0); PLATELET COUNT (AUTO) 193 /CMM (150-450); WHITE BLOOD COUNT (AUTO) 17.7 K/uL (4.3-11.0)
--- NOTE | 2019-03-03 07:10 | NUR ---
RN NOTE RECEIVED PT ON BED, OBTUNDED. PATIENT OPENS EYES TO PAINFUL STIMULI BUT NOT TO NAME OR LIGHT TOUCH, VENT/ TRACH DEPENDENT, TRACH SUCTIONING DONE, NO DISTRESS NOTED, TOLERATING VENT SETTING WELL, ON TELE SR HR IN 90'S , L UPPER ARM PICC LINE SITE CLEAN,DRY AND INTACT , PATIENT TURNED AND REPOSITIONED. . SAFETY AND ISOLATION PRECAUTIONS IN PLACE AND FOLLOWED. BED IN LOWEST LOCKED POSITION SIDE RAILS UP X3 , CONTINUE TO MONITOR .
[2019-03-03 07:13] LABS: CALCIUM, SERUM 9.4 mg/dL (8.5-10.1); POTASSIUM 3.8 mmol/L (3.5-5.1)
[2019-03-03 07:16] LABS: CREATININE 9.4 mg/dL (0.6-1.3)
--- NOTE | 2019-03-03 07:33 | NUR ---
STRINGED INSTRUMENT TUNER NOTE PATIENT TOLERATED THE REST OF THE NIGHT. NO MORE EPISODES OF HYPOTENSION NOTED. WOUND CARE GIVEN ORDERED. PATIENT TURNED Q 2 HOURS. PATIENT TOLERATING VENT SETTINGS NO S/S OF RESP DISTRESS. PATIENT SR ON THE MONITOR HR 87. RN ENDORSED POC TO AM FOR DENNIS.
[2019-03-03 08:00] VITALS: BP 100/67
[2019-03-03] MEDS: CHLORHEXIDINE GLUCONATE 15 ML UDC MM SCH (08:42)
[2019-03-03] MEDS: DOCUSATE SODIUM LIQ 100 MG/10 ML UDC GT SCH ×2 (08:42→16:48)
[2019-03-03] MEDS: ACIDOPHILUS/BULGARICUS 1 EACH TAB.CHEW GT SCH ×2 (08:42→20:35)
[2019-03-03] MEDS: SUCRALFATE 1 G/10 ML UDC GT SCH ×2 (08:42→20:35)
[2019-03-03] MEDS: COLISTIMETHATE SODIUM 100 MG in IV NS 0.9% 50 ML IV SCH (08:43)
[2019-03-03] MEDS: TRAMADOL HCL 50 MG TABLET GT SCH ×2 (08:43→16:48)
[2019-03-03] MEDS: NEXIUM 40 MG VIAL IV SCH ×2 (08:45→16:51)
[2019-03-03] MEDS: PROSOURCE / PROSTAT (PYXIS) 30 ML UDC GT SCH ×3 (08:45→16:48)
[2019-03-03] MEDS: DAKINS QUARTER STRENGTH (0.125%) 480 ML BOTTLE TOP SCH (08:46)
[2019-03-03] MEDS: Z GUARD REMEDY 2 OZ OINT TP SCH ×2 (08:47→20:35)
--- NOTE | 2019-03-03 11:00 | NUR ---
RN NOTES CALL RECEIVED FROM LAB REGARDING GRAM POSITIVE COCCI IN CLUSTERS IN THE , DR RUTLEDGE NOTIFED .
[2019-03-03 12:00] VITALS: BP_SYST 102; BP_SYST 105; BP_DIAS 41; BP_DIAS 59
[2019-03-03] MEDS: NEPRO 1,000 ML BOTTLE GT SCH (13:18)
--- NOTE | 2019-03-03 15:30 | NUR ---
PT RECEIVED TRACHED ON MECHANICAL VENT W/ NOTED SETTINGS. VENT IN RED OUTLET, AMBUBAG AT BEDSIDE, VENT ALARMS CHECKED AND AUDIBLE. PT SX'ED AND LAVAGED PRN. BREATH SOUNDS EQUAL, DIMINISHED. HHN MEDS GIVEN INLINE W/ NO ADVERSE REACTIONS. TRACH TUBE SECURED, CLEAN, DRY, PATENT. NO RESP DISTRESS NOTED. PLAN IS TO CONTINUE CARE UNDER CURRENT MD ORDERS AND MONITOR FOR CHANGES. Addendum: 03/03/19 at 1532 by MELIA LANG RT Amended: Links added.
[2019-03-03 16:00] VITALS: BP_SYST 126; BP_SYST 95; BP_DIAS 54; BP_DIAS 56
[2019-03-03] MEDS: ATENOLOL 25 MG TABLET GT SCH (17:15)
--- NOTE | 2019-03-03 18:00 | NUR ---
RN NOTES PT STABLE, NO SIGNIFICANT CHANGES NOTED ON THIS SHIFT, WILL ENDOSE TO MILANESE KNITTING MACHINE OPERATOR NURSE FOR CONTINUITY OF CARE .
[2019-03-03 20:00] VITALS: BP 119/79
[2019-03-04] VITALS: BP 115/73
[2019-03-04] MEDS: ALBUTEROL FS 2.5 MG/0.5 ML VIAL.NEB NEB SCH ×4 (01:09→19:35)
[2019-03-04] MEDS: IPRATROPIUM NEB FS 0.5 MG/2.5 ML AMPUL.NEB NEB SCH ×4 (01:09→19:35)
[2019-03-04 04:00] VITALS: BP 133/53
--- NOTE | 2019-03-04 04:38 | NUR ---
RT NOTES TRACH TUBE IN PLACE, PATENT, AND SECURED WITH TRACH TIE. ALARMS ON AND AUDIBLE. VENT PLUGGED INTO RED OUTLET. BACK UP TRACH AND AMBU BAG BY THE BEDSIDE. PT TOLERATE TX WELL. SX MODERATE THICK PALE YELLOW SECRETIONS. NO SIGNS OF ANY DISTRESS AT THIS TIME. Addendum: 03/04/19 at 0438 by JULIEN GOMEZ RT Amended: Links added.
[2019-03-04] MEDS: BLOOD SUGAR DIAGNOSTIC 1 EACH STRIP IN SCH ×3 (05:05→17:50)
[2019-03-04] MEDS: METRONIDAZOLE 500 MG TABLET PO SCH ×3 (05:07→21:20)
--- NOTE | 2019-03-04 07:30 | NUR ---
RN NOTE RECEIVED PT ON BED, OBTUNDED. PATIENT OPENS EYES TO PAINFUL STIMULI , VENT/ TRACH DEPENDENT, TRACH SUCTIONING DONE, NO DISTRESS NOTED, TOLERATING VENT SETTING WELL, ON TELE SR , L UPPER ARM PICC LINE SITE CLEAN,DRY AND INTACT , PATIENT TURNED AND REPOSITIONED. SAFETY AND ISOLATION PRECAUTIONS IN PLACE AND FOLLOWED. BED IN LOWEST LOCKED POSITION SIDE RAILS UP X3 , CONTINUE TO MONITOR .
[2019-03-04 08:00] VITALS: BP_SYST 91; BP_SYST 95; BP_DIAS 59; BP_DIAS 64
[2019-03-04] MEDS: COLISTIMETHATE SODIUM 100 MG in IV NS 0.9% 50 ML IV SCH (08:47)
[2019-03-04] MEDS: TRAMADOL HCL 50 MG TABLET GT SCH ×2 (08:48→16:06)
[2019-03-04] MEDS: CHLORHEXIDINE GLUCONATE 15 ML UDC MM SCH (08:48)
[2019-03-04] MEDS: DOCUSATE SODIUM LIQ 100 MG/10 ML UDC GT SCH ×2 (08:48→16:06)
[2019-03-04] MEDS: ACIDOPHILUS/BULGARICUS 1 EACH TAB.CHEW GT SCH ×2 (08:48→21:20)
[2019-03-04] MEDS: NEXIUM 40 MG VIAL IV SCH ×2 (08:50→16:06)
[2019-03-04] MEDS: SUCRALFATE 1 G/10 ML UDC GT SCH ×2 (08:50→21:20)
[2019-03-04] MEDS: Z GUARD REMEDY 2 OZ OINT TP SCH ×2 (08:51→21:20)
[2019-03-04] MEDS: DAKINS QUARTER STRENGTH (0.125%) 480 ML BOTTLE TOP SCH (08:52)
[2019-03-04] MEDS: PROSOURCE / PROSTAT (PYXIS) 30 ML UDC GT SCH ×3 (09:13→16:29)
[2019-03-04] MEDS ORDERED: EPOETIN ALFA (10,000 UNIT) 10,000 UNIT/ML VIAL IV SCH (10:00)
[2019-03-04 12:00] VITALS: BP 113/64
[2019-03-04] MEDS ORDERED: EPOETIN ALFA (10,000 UNIT) 10,000 UNIT/ML VIAL IV ONE (12:00)
[2019-03-04] MEDS: NEPRO 1,000 ML BOTTLE GT SCH (13:42)
--- NOTE | 2019-03-04 14:00 | NUR ---
RN NOTES TRACH CARE DONE , TOLERATING TF WELL, VSS STABLE , CONTINUE TO MONITOR .
[2019-03-04 16:00] VITALS: BP 109/60
[2019-03-04] MEDS: VORICONAZOLE 200 MG TABLET PO SCH ×2 (16:06→21:20)
[2019-03-04] MEDS: ATENOLOL 25 MG TABLET GT SCH (17:49)
--- NOTE | 2019-03-04 18:00 | NUR ---
RN NOTE NO SIGNIFICANT CHANGES NOTED ON THIS SHIFT, WILL ENDORSE TO MARKETING RESEARCH ANALYST NURSE FOR CONTINUITY OF CARE.
[2019-03-04 20:00] VITALS: BP_SYST 156; BP_SYST 97; BP_DIAS 56; BP_DIAS 73
[2019-03-05] VITALS: BP 102/53
[2019-03-05] MEDS: BLOOD SUGAR DIAGNOSTIC 1 EACH STRIP IN SCH ×5 (00:51→23:55)
--- NOTE | 2019-03-05 00:55 | NUR ---
RN NOTES, UPON CHECKING ON PATIENT NOTED THAT HE HAD REMOVED THE TIDE THAT HOLD THE TRACH TUBE FROM THE RIGHT SIDE AND ALMOST EXTUBATE HIMSELF, AND ALSO NOTED THAT HE REMOVED THE DRESSING FOR THE RCW HD CATHETER AND HE WAS TRYING TO PULL IT, REDIRECTION OF BEHAVIOR PROVIDED, AND REPORTED TO MD SALT LIFTER, AND RECEIVED A NEW ORDER FOR BILATERAL SOFT WRIST RESTRAINS, WILL CONTINUE TO MONITOR CLOSELY AND DO FREQUENT CIRCULATION CHECKS.
[2019-03-05] MEDS: ALBUTEROL FS 2.5 MG/0.5 ML VIAL.NEB NEB SCH ×4 (01:52→19:46)
[2019-03-05] MEDS: IPRATROPIUM NEB FS 0.5 MG/2.5 ML AMPUL.NEB NEB SCH ×4 (01:52→19:46)
[2019-03-05 04:00] VITALS: BP 129/41
[2019-03-05] MEDS: METRONIDAZOLE 500 MG TABLET PO SCH ×3 (05:07→21:10)
[2019-03-05 06:17] LABS: BASOPHILS # (AUTO) 0.1 /CMM (0.0-0.2); BASOPHILS % (AUTO) 0.8 % (0.0-2.0); EOSINOPHILS % (AUTO) 7.2 % (0.0-6.0); HEMATOCRIT 28 % (39-51); HEMOGLOBIN 8.8 g/dL (13.5-17.5); LYMPHOCYTES # (AUTO) 1.6 /CMM (0.8-4.8); LYMPHOCYTES % (AUTO) 10.9 % (20.0-44.0); MEAN CORPUSCULAR HGB CONC 32 g/dl (31.0-36.0); MEAN CORPUSCULAR VOLUME 86 fL (80-96); MONOCYTES # (AUTO) 1.9 /CMM (0.1-1.30); NEUTROPHILS # (AUTO) 9.7 /CMM (1.8-8.9); NEUTROPHILS % (AUTO) 68.1 % (43.0-81.0); PLATELET COUNT (AUTO) 224 /CMM (150-450); RED BLOOD CELL COUNT(AUTO) 3.28 MIL/uL (4.5-6.0); WHITE BLOOD COUNT (AUTO) 14.3 K/uL (4.3-11.0)
[2019-03-05 06:39] LABS: ALBUMIN 2.2 g/dL (3.4-5.0); BILIRUBIN,TOTAL 0.4 mg/dL (0.2-1.0); CALCIUM, SERUM 9.6 mg/dL (8.5-10.1); MAGNESIUM 2.5 mg/dL (1.8-2.4); PHOSPHORUS 3.1 mg/dL (2.5-4.9); POTASSIUM 3.8 mmol/L (3.5-5.1); TOTAL PROTEIN, SERUM 6.5 g/dL (6.4-8.2)
--- NOTE | 2019-03-05 07:02 | NUR ---
RN NOTES, PATIENT SLEEPING AT THIS TIME, BUT OPEN EYES TO VERBAL STIMULI, NO SIGNIFICANT CHANGE IN CONDITION DURING THE NIGHT, PATIENT REMAINED STABLE THROUGHOUT THE NIGHT,SINUS RHYTHM IN THE TELE MONITOR WITH HR IN 90-100S MOSTLY DURING THE NIGHT, ON MECHANICAL VENTILATOR TOLERATED SETTINGS WELL, GTF TOTAL DOSE DONE AT THIS TIME, REPOSITIONED Q2HRS AND PRN, TREATMENT DONE ORDERED, KEPT DRY AND CLEAN, CALL LIGHT W/I REACH, PICC LINE IN DEBBIE AND RCW HD CATH IN PLACED, INTACT, NO ABNORMALITY NOTED, WILL ENDORSE CONTINUITY OF CARE TO ONCOMING NURSE.
--- NOTE | 2019-03-05 07:30 | NUR ---
PSYCHOLOGISTS AM NOTES RECEIVED PT IN BED, OBTUNDED, WITH PORTEX 8 TO MECHANICAL VENT, SETTINGS ORDERED, BREATHING EVEN AND UNLABORED, SR HR 91 ON TELE MONITOR, NO SIGNS OF PAIN OR DISCOMFORT, LEFT UPPER ARM PICC LINE, FLUSHES WELL, CDI DRESSING, GT IN PLACE, CLAMPED AT THIS TIME, NEPRO AT 60 ML/HR ON AT 1400 OFF 0700. SEE NURSING FLOWSHEET FOR SKIN ISSUES. PATIENT MADE COMFORTABLE. ISOLATION PRECAUTION OBSERVED, BED LOW LOCKED, CALL LIGHT WITHIN REACH. WILL TURN AND REPOSITION Q 2HOURS. RESTRAINT IN PLACE, CHECKED FOR CIRCULATION AND PULSE.WILL CONT TO MONITOR.
[2019-03-05 08:00] VITALS: BP 101/64
--- NOTE | 2019-03-05 09:30 | NUR ---
STORE LOSS PREVENTION MANAGER NOTES DUE MEDS GIVEN
--- NOTE | 2019-03-05 09:45 | NUR ---
SUBWAREHOUSE SUPERVISOR NOTES KAMARI AT BEDSIDE EARLIER. WOUND CARE DONE TO RIGHT FOOT.
[2019-03-05] MEDS: DOCUSATE SODIUM LIQ 100 MG/10 ML UDC GT SCH ×2 (09:47→17:31)
[2019-03-05] MEDS: NEXIUM 40 MG VIAL IV SCH ×2 (09:47→17:31)
[2019-03-05] MEDS: CHLORHEXIDINE GLUCONATE 15 ML UDC MM SCH (09:47)
[2019-03-05] MEDS: TRAMADOL HCL 50 MG TABLET GT SCH ×2 (09:48→17:31)
[2019-03-05] MEDS: SUCRALFATE 1 G/10 ML UDC GT SCH ×2 (09:48→21:09)
[2019-03-05] MEDS: VORICONAZOLE 200 MG TABLET PO SCH ×2 (09:48→21:10)
[2019-03-05] MEDS: ACIDOPHILUS/BULGARICUS 1 EACH TAB.CHEW GT SCH ×2 (09:48→21:10)
[2019-03-05] MEDS: PROSOURCE / PROSTAT (PYXIS) 30 ML UDC GT SCH ×3 (09:49→17:22)
[2019-03-05] MEDS: COLISTIMETHATE SODIUM 100 MG in IV NS 0.9% 50 ML IV SCH (09:49)
[2019-03-05] MEDS: Z GUARD REMEDY 2 OZ OINT TP SCH ×2 (09:50→21:10)
[2019-03-05] MEDS: DAKINS QUARTER STRENGTH (0.125%) 480 ML BOTTLE TOP SCH (10:21)
[2019-03-05 12:00] VITALS: BP 95/62
--- NOTE | 2019-03-05 12:30 | NUR ---
PATTERNMAKER NOTES ACCUCHECK DONE. BS 70 MG/DL NO INSULIN COVERAGE GIVEN
[2019-03-05] MEDS: NEPRO 1,000 ML BOTTLE GT SCH (15:33)
[2019-03-05 16:00] VITALS: BP 97/64
--- NOTE | 2019-03-05 17:22 | NUR ---
CONSTRUCTION SUPERVISOR NOTES ACCUCHECK DONE. BS 83 MG/DL NO INSULIN COVERAGE GIVEN
[2019-03-05] MEDS: ATENOLOL 25 MG TABLET GT SCH (17:26)
--- NOTE | 2019-03-05 18:49 | NUR ---
ASSET MANAGEMENT LEAD NOTES ALL NEEDS MET. NO OTHER SIGNIFICANT CHANGE IN CONDITION. NOT IN ANY DISTRESS. RESTING COMFORTABLY. ENDORSED TO NEXT SHIFT FOR DENNIS.
[2019-03-05 20:00] VITALS: BP 118/66
[2019-03-06] VITALS: BP 111/68
[2019-03-06] MEDS: ALBUTEROL FS 2.5 MG/0.5 ML VIAL.NEB NEB SCH ×4 (00:54→19:20)
[2019-03-06] MEDS: IPRATROPIUM NEB FS 0.5 MG/2.5 ML AMPUL.NEB NEB SCH ×4 (00:54→19:20)
[2019-03-06 04:00] VITALS: BP 103/64
[2019-03-06] MEDS: METRONIDAZOLE 500 MG TABLET PO SCH ×3 (04:56→20:10)
[2019-03-06] MEDS: BLOOD SUGAR DIAGNOSTIC 1 EACH STRIP IN SCH ×3 (05:34→18:07)
[2019-03-06 06:58] LABS: BASOPHILS # (AUTO) 0.1 /CMM (0.0-0.2); BASOPHILS % (AUTO) 0.8 % (0.0-2.0); EOSINOPHILS % (AUTO) 7.8 % (0.0-6.0); HEMATOCRIT 28 % (39-51); HEMOGLOBIN 8.7 g/dL (13.5-17.5); LYMPHOCYTES # (AUTO) 1.6 /CMM (0.8-4.8); LYMPHOCYTES % (AUTO) 10.8 % (20.0-44.0); MEAN CORPUSCULAR HGB CONC 31 g/dl (31.0-36.0); MEAN CORPUSCULAR VOLUME 86 fL (80-96); MONOCYTES # (AUTO) 1.9 /CMM (0.1-1.30); MONOCYTES % (AUTO) 12.5 % (2.0-12.0); NEUTROPHILS # (AUTO) 10.4 /CMM (1.8-8.9); NEUTROPHILS % (AUTO) 68.1 % (43.0-81.0); PLATELET COUNT (AUTO) 262 /CMM (150-450); RED BLOOD CELL COUNT(AUTO) 3.25 MIL/uL (4.5-6.0); WHITE BLOOD COUNT (AUTO) 15.3 K/uL (4.3-11.0)
--- NOTE | 2019-03-06 06:59 | NUR ---
RN NOTES, PATIENT SLEEPING AT THIS TIME, BUT OPEN EYES TO VERBAL STIMULI, NO SIGNIFICANT CHANGE IN CONDITION DURING THE NIGHT, PATIENT REMAINED STABLE THROUGHOUT THE NIGHT,SINUS RHYTHM IN THE TELE MONITOR WITH HR IN 80-90S DURING THE NIGHT, ON MECHANICAL VENTILATOR TOLERATED SETTINGS WELL, REPOSITIONED Q2HRS AND PRN, TREATMENT DONE ORDERED, KEPT DRY AND CLEAN, BED LOCKED AND IN LOW POSITION WITH S/R UP, CALL LIGHT W/I REACH, WILL ENDORSE CONTINUITY OF CARE TO ONCOMING NURSE.
[2019-03-06 07:27] LABS: CALCIUM, SERUM 10.2 mg/dL (8.5-10.1); MAGNESIUM 2.9 mg/dL (1.8-2.4); PHOSPHORUS 3.7 mg/dL (2.5-4.9)
[2019-03-06 07:29] LABS: CREATININE 9.2 mg/dL (0.6-1.3)
--- NOTE | 2019-03-06 07:35 | NUR ---
RN NOTE: RECEIVED PATIENT IN BED ASLEEP, AROUSABLE WITH TACTILE STIMULI AND VERBAL CUES, BUT NONVERBAL. RESPIRATION EVEN AND UNLABORED SATURATING 100% WITH CURRENT VENT SETTING. 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 DIFF. TRACH CARE WAS PROVIDED. DRESSING WAS CHANGED. (R) CHEST PERMACATH WAS NOTED IN PLACED WITH TRANSPARENT DRESSING. ON METAL FABRICATOR SR HR= 80. HOB ELEVATED. BED ALARMED AND LOCKED AT ALL TIMES. BED ON LOWEST POSITION. RECEIVED PATIENT ON (B) SOFT WRIST RESTRAINTS FOR SAFETY PRECAUTION. PATIENT WAS NOTED PULLING HIS (R) CHEST PERMACATH AND TRACHEOSTOMY. PATIENT WAS RECEIVING GT FEEDING OF NEPHRO @60ML/HR WITH NO RESIDUAL. (L) UPPER ARM PICC LINE WITH 2 PORTS INTACT AND PATENT WITH TRANSPARENT DRESSING NOTED. CALL LIGHT WITHIN REACH. NEEDS ANTICIPATED. NO COFFEE GROUND EMESIS NOTED. PENDING HEMODIALYSIS FOR TODAY.
--- NOTE | 2019-03-06 07:58 | NUR ---
RT PATIENT REC'D TRACHED ON [facility] VENT WITH ORDERED SETTINGS. TRACH SECURE + IN PROPER POSITION. PATIENT SUCTIONED WITH SMALL AMT OF PALE SEMITHICK SECRETIONS. VENT ALARMS CHECKED + AUDIBLE. AMBU BAG AT [facility]. PATIENT APPEARS COMFORTABLE AND IN NO DISTRESS. Addendum: 03/06/19 at 0835 by SUKUMAR BERRY RT Amended: Links added.
[2019-03-06 08:00] VITALS: BP 91/55
[2019-03-06] MEDS: NEXIUM 40 MG VIAL IV SCH (08:43)
[2019-03-06] MEDS: PROSOURCE / PROSTAT (PYXIS) 30 ML UDC GT SCH ×3 (08:44→16:31)
[2019-03-06] MEDS: ACIDOPHILUS/BULGARICUS 1 EACH TAB.CHEW GT SCH ×2 (08:50→20:10)
[2019-03-06] MEDS: VORICONAZOLE 200 MG TABLET PO SCH ×2 (08:50→20:10)
[2019-03-06] MEDS: DOCUSATE SODIUM LIQ 100 MG/10 ML UDC GT SCH ×2 (08:50→16:31)
[2019-03-06] MEDS: SUCRALFATE 1 G/10 ML UDC GT SCH ×2 (08:50→20:10)
[2019-03-06] MEDS: CHLORHEXIDINE GLUCONATE 15 ML UDC MM SCH (08:51)
[2019-03-06] MEDS: TRAMADOL HCL 50 MG TABLET GT SCH ×2 (08:51→16:32)
[2019-03-06] MEDS: Z GUARD REMEDY 2 OZ OINT TP SCH ×2 (08:53→20:11)
[2019-03-06] MEDS: DAKINS QUARTER STRENGTH (0.125%) 480 ML BOTTLE TOP SCH (08:53)
[2019-03-06] MEDS: COLISTIMETHATE SODIUM 100 MG in IV NS 0.9% 50 ML IV SCH (09:11)
[2019-03-06 12:00] VITALS: BP 92/64
--- NOTE | 2019-03-06 12:10 | NUR ---
RN NOTE: PATIENT'S SON WAS VISITED THE PATIENT AND WAS GIVEN AN UPDATE REGARDING THE PATIENT'S CURRENT CONDITION. PATIENT WAS CURRENTLY RECEIVING HEMODIALYSIS AT THIS TIME.
--- NOTE | 2019-03-06 14:18 | NUR ---
RN NOTE: PATIENT WAS DIALYZED TODAY BY ZOHREH BASKET MENDER AND NO FLUID WAS REMOVED ONLY ULTRA FILTRATION. (R) CHEST PERMA CATH DRESSING WAS CHANGED BY HD NURSE.
[2019-03-06] MEDS: NEPRO 1,000 ML BOTTLE GT SCH (15:19)
[2019-03-06 16:00] VITALS: BP 112/57
[2019-03-06] MEDS: PANTOPRAZOLE 40 MG VIAL IV SCH (16:32)
[2019-03-06] MEDS: ATENOLOL 25 MG TABLET GT SCH (18:13)
--- NOTE | 2019-03-06 19:23 | NUR ---
RN NOTE: BEDSIDE REPORT WAS GIVEN TO PM SHIFT NURSE FOR CONTINUITY OF CARE. PATIENT REMAINED ON CONTACT ISOLATION FOR MRSA OF THE (R) FOOT WOUND AND HX OF C. DIFF. PROPER HANDWASHING WAS OBSERVED. BED ALARMED AND LOCKED AT ALL TIMES.
[2019-03-06 20:00] VITALS: BP 99/62
[2019-03-07] VITALS: BP 103/62
[2019-03-07] MEDS: ALBUTEROL FS 2.5 MG/0.5 ML VIAL.NEB NEB SCH ×4 (00:58→19:50)
[2019-03-07] MEDS: IPRATROPIUM NEB FS 0.5 MG/2.5 ML AMPUL.NEB NEB SCH ×4 (00:58→19:50)
[2019-03-07] MEDS: BLOOD SUGAR DIAGNOSTIC 1 EACH STRIP IN SCH ×4 (01:13→17:42)
[2019-03-07 04:00] VITALS: BP 106/70
[2019-03-07] MEDS: NEPRO 1,000 ML BOTTLE GT SCH (05:00)
[2019-03-07] MEDS: METRONIDAZOLE 500 MG TABLET PO SCH ×3 (05:20→21:13)
--- NOTE | 2019-03-07 07:50 | NUR ---
RN NOTE: RECEIVED PATIENT IN BED ASLEEP, AROUSABLE WITH TACTILE STIMULI AND VERBAL CUES, BUT NONVERBAL AND DROWSY. RESPIRATION EVEN AND UNLABORED SATURATING 100% WITH CURRENT VENT SETTING. 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 DIFF. TRACH CARE WAS PROVIDED. DRESSING WAS CHANGED. AFEBRILE. SKIN WARM TO TOUCH. (R) CHEST PERMACATH WAS NOTED IN PLACED WITH TRANSPARENT DRESSING. ON PARTS PULLER SR HR= 86. HOB ELEVATED. BED ALARMED AND LOCKED AT ALL TIMES. BED ON LOWEST POSITION. PATIENT WAS RECEIVING GT FEEDING OF NEPHRO @50ML/HR WITH NO RESIDUAL. (L) UPPER ARM PICC LINE WITH 2 PORTS INTACT AND PATENT WITH TRANSPARENT DRESSING NOTED, BUT NO BLOOD RETURN WAS NOTED. CALL LIGHT WITHIN REACH. NEEDS ANTICIPATED. NO COFFEE GROUND EMESIS NOTED.
[2019-03-07 08:00] VITALS: BP 87/57
[2019-03-07] MEDS: SUCRALFATE 1 G/10 ML UDC GT SCH ×2 (08:29→21:13)
[2019-03-07] MEDS: ACIDOPHILUS/BULGARICUS 1 EACH TAB.CHEW GT SCH ×2 (08:29→21:13)
[2019-03-07] MEDS: VORICONAZOLE 200 MG TABLET PO SCH ×2 (08:29→21:13)
[2019-03-07] MEDS: CHLORHEXIDINE GLUCONATE 15 ML UDC MM SCH (08:29)
[2019-03-07] MEDS: TRAMADOL HCL 50 MG TABLET GT SCH ×2 (08:29→16:54)
[2019-03-07] MEDS: PROSOURCE / PROSTAT (PYXIS) 30 ML UDC GT SCH ×3 (08:30→16:54)
[2019-03-07] MEDS: DOCUSATE SODIUM LIQ 100 MG/10 ML UDC GT SCH ×2 (08:31→16:50)
[2019-03-07] MEDS: Z GUARD REMEDY 2 OZ OINT TP SCH ×2 (08:31→21:24)
[2019-03-07] MEDS: DAKINS QUARTER STRENGTH (0.125%) 480 ML BOTTLE TOP SCH (08:31)
[2019-03-07] MEDS: PANTOPRAZOLE 40 MG VIAL IV SCH ×2 (08:34→16:54)
[2019-03-07] MEDS ORDERED: PANTOPRAZOLE 40 MG VIAL IV SCH (09:00)
[2019-03-07] MEDS: COLISTIMETHATE SODIUM 100 MG in IV NS 0.9% 50 ML IV SCH (09:41)
[2019-03-07 12:00] VITALS: BP 99/59
--- NOTE | 2019-03-07 12:33 | NUR ---
RN NOTE: CLARIFIED WITH DR. Jigna ART REGARDING THE ORDER FOR BLOOD CULTURE WITH HD TODAY FOR THE PATIENT. MD WAS INFORMED THAT PATIENT HAD A BLOOD CULTURE YESTERDAY AFTER HD. PER MD, HE STILL WANTED TO REPEAT THE BLOOD CULTURE BY TOMORROW WITH THE PATIENT'S HEMODIALYSIS.
[2019-03-07 16:00] VITALS: BP 90/48
[2019-03-07] MEDS: ATENOLOL 25 MG TABLET GT SCH (17:06)
--- NOTE | 2019-03-07 19:55 | NUR ---
RN NOTE: BEDSIDE REPORT WAS GIVEN TO LON DERAS FOR CONTINUITY OF CARE. PATIENT STILL ON CONTACT ISOLATION FOR MRSA OF THE (R) FOOT WOUND AND HX OF C. DIFF. GOOD HANDWASHING WAS OBSERVED. BED ALARMED AND LOCKED AT ALL TIMES. ENDORSED TO PM SHIFT NURSE TO ENDORSE TOMORROW ABOUT THE BLOOD CULTURES THAT NEEDED TO BE COLLECTED WITH HEMODIALYSIS PER DR. Jigna ART.
[2019-03-07 20:00] VITALS: BP 104/60
--- NOTE | 2019-03-07 20:00 | NUR ---
RN INITIAL TELE NOTE: RECEIVED PATIENT, AWAKE NONVERBAL. RESPIRATION EVEN AND UNLABORED SATURATING 100% WITH CURRENT VENT SETTING, NO OF DISTRESS. 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 DIFF, VS STABLE. SKIN WARM TO TOUCH. (R) CHEST PERMACATH WAS NOTED IN PLACED WITH TRANSPARENT DRESSING. ON PEDIATRIC DERMATOLOGIST SR, ST. HOB ELEVATED, FOR ASP' PRECAUTION.GT FEEDING OF NEPHRO @50ML/HR WITH NO RESIDUAL. (L) UPPER ARM PICC LINE WITH 2 PORTS INTACT AND PATENT WITH TRANSPARENT DRESSING NOTED, BUT NO BLOOD RETURN PER AM RN. CALL LIGHT WITHIN REACH. NEEDS ANTICIPATED. NO EPISODE OF COFFEE GROUND EMESIS NOTED.
--- NOTE | 2019-03-07 23:20 | NUR ---
PT RCVD TRACH'D ON MECHANICAL VENT WITH CHARTED SETTINGS. SX DONE. PT HAYDEE TX WELL. PT TRACH IS PATENT AND SECURE. VENT PLUGGED INTO RED OUTLET. VENT ALARMS ARE ON AND AUDIBLE. AMBU BAG AT BEDSIDE. Addendum: 03/07/19 at 2323 by PANKAJ NASH RT Amended: Links added.
[2019-03-08] VITALS (7 sets, daily range): BP systolic 91–115; BP diastolic 54–67
[2019-03-08] MEDS: BLOOD SUGAR DIAGNOSTIC 1 EACH STRIP IN SCH ×5 (00:20→23:12)
[2019-03-08] MEDS: IPRATROPIUM NEB FS 0.5 MG/2.5 ML AMPUL.NEB NEB SCH ×4 (00:53→19:57)
[2019-03-08] MEDS: ALBUTEROL FS 2.5 MG/0.5 ML VIAL.NEB NEB SCH ×4 (00:54→19:57)
[2019-03-08] MEDS: NEPRO 1,000 ML BOTTLE GT SCH (03:16)
[2019-03-08] MEDS: METRONIDAZOLE 500 MG TABLET PO SCH ×3 (05:36→20:52)
--- NOTE | 2019-03-08 06:26 | NUR ---
BEE RAISER CLOSING NOTE ENDORSED PT TO AM RN, ON VENT, NO EPISODE OF DISTRESS, WOUND CARE DONE ORDERED, KEPT CLEAN AND DRY, HD TODAY BLOOD CX WITH DIALYSIS.
[2019-03-08 06:48] LABS: BASOPHILS # (AUTO) 0.1 /CMM (0.0-0.2); BASOPHILS % (AUTO) 0.5 % (0.0-2.0); EOSINOPHILS % (AUTO) 5.7 % (0.0-6.0); HEMATOCRIT 25 % (39-51); HEMOGLOBIN 7.9 g/dL (13.5-17.5); LYMPHOCYTES # (AUTO) 1.8 /CMM (0.8-4.8); LYMPHOCYTES % (AUTO) 10.8 % (20.0-44.0); MEAN CORPUSCULAR HGB CONC 31 g/dl (31.0-36.0); MEAN CORPUSCULAR VOLUME 86 fL (80-96); MONOCYTES # (AUTO) 2.3 /CMM (0.1-1.30); MONOCYTES % (AUTO) 13.2 % (2.0-12.0); NEUTROPHILS # (AUTO) 11.9 /CMM (1.8-8.9); NEUTROPHILS % (AUTO) 69.8 % (43.0-81.0); PLATELET COUNT (AUTO) 311 /CMM (150-450); RED BLOOD CELL COUNT(AUTO) 2.95 MIL/uL (4.5-6.0)
[2019-03-08 06:59] LABS: CALCIUM, SERUM 10.2 mg/dL (8.5-10.1); PHOSPHORUS 4.7 mg/dL (2.5-4.9); POTASSIUM 4.1 mmol/L (3.5-5.1)
--- NOTE | 2019-03-08 07:30 | NUR ---
CLOTH PICKER INITIAL NOTE RECEIVED PATIENT, NON-VERBAL VENT DEPENDENT, OPENS EYES. NO S/S OF PAIN OR DISCOMFORT. NO RESPIRATORY DISTRESS NOTED. TOLERATING CURRENT VENT SETTINGS. NO TELE MONITOR SR. WITH PICC LINE PATENT, INTACT, TKO. ISOLATION PRECAUTIONS OBSERVED. HOB ELEVATED. TURNED AND REPOSITIONED. SIDE RAILS UP AND LOCKED. BED KEPT AT LOWEST POSITION. CALL LIGHT KEPT WITHIN EASY REACH. WILL CONTINUE TO MONITOR.
[2019-03-08] MEDS: SUCRALFATE 1 G/10 ML UDC GT SCH ×2 (09:00→20:50)
[2019-03-08] MEDS: PANTOPRAZOLE 40 MG VIAL IV SCH ×2 (09:00→18:11)
[2019-03-08] MEDS: DOCUSATE SODIUM LIQ 100 MG/10 ML UDC GT SCH ×2 (09:00→17:00)
[2019-03-08] MEDS: TRAMADOL HCL 50 MG TABLET GT SCH ×2 (09:00→17:00)
[2019-03-08] MEDS: ACIDOPHILUS/BULGARICUS 1 EACH TAB.CHEW GT SCH ×2 (09:00→20:51)
[2019-03-08] MEDS: CHLORHEXIDINE GLUCONATE 15 ML UDC MM SCH (09:00)
[2019-03-08] MEDS: COLISTIMETHATE SODIUM 100 MG in IV NS 0.9% 50 ML IV SCH (09:00)
[2019-03-08] MEDS: PROSOURCE / PROSTAT (PYXIS) 30 ML UDC GT SCH ×3 (09:01→18:11)
--- NOTE | 2019-03-08 09:04 | NUR ---
PT PIO ROBERTS'D ON MECHANICAL VENT WITH CHARTED SETTINGS. PT ARMANDO IS PATENT AND SECURE. VENT PLUGGED INTO RED OUTLET. VENT ALARMS ARE ON AND AUDIBLE. AMBU BAG AT BEDSIDE. WILL CONTINUE TO MONITOR. Addendum: 03/08/19 at 0905 by HAIM GODWIN RT Amended: Links added.
[2019-03-08] MEDS: DAKINS QUARTER STRENGTH (0.125%) 480 ML BOTTLE TOP SCH (09:08)
[2019-03-08] MEDS: Z GUARD REMEDY 2 OZ OINT TP SCH ×2 (09:09→20:56)
[2019-03-08] MEDS: VORICONAZOLE 200 MG TABLET PO SCH ×2 (09:37→20:51)
[2019-03-08] MEDS ORDERED: ALBUMIN 25% 12.5 GM in PREMIX 1 EA IV PRN (14:00)
[2019-03-08] MEDS ORDERED: ALBUMIN 25% 25 GM in PREMIX 1 EA IV PRN (14:00)
--- NOTE | 2019-03-08 14:30 | NUR ---
DENTAL HYGIENIST NOTE PATIENT COMPLETED HD, DID NOT TOLERATE. PER HD NURSE PATIENT HYPOTENSIVE, REQUESTED FOR ALBUMIN. WENT TO PHARMACY TO TOOLS ADMINISTRATOR ALBUMIN, BUT WHEN I RETURNED HD NURSE DID NOT NEED IT AND WAS PACKING UP. PER HD NURSE SHE DID NOT COLLECT BLOOD CULTURE, THEY CAN COLLECT IT NEXT TIME.
--- NOTE | 2019-03-08 15:30 | NUR ---
BOTTLE WASHING MACHINE OPERATOR NOTE INFORMED DR ART REGARDING BLOOD CULTURE NOT BEING COLLECTED BY HD NURSE. PER OK TO DRAW BLOOD CULTURE PERIPHERALLY. CLINICAL EDITOR INFORMED.
[2019-03-08] MEDS: ATENOLOL 25 MG TABLET GT SCH (18:00)
--- NOTE | 2019-03-08 19:25 | NUR ---
TELE/ RN NOTES PATIENT RECEIVED IN BED, RESTING COMFORTABLY AT THIS TIME, NO S/S OF ACUTE DISTRESS NOTED, RESPIRATION EVEN AND UNLABORED, NO SOB NOTED, TRACH INTACT, PATENT, CONNECTED TO VENT WITH PRESCRIBED SETTINGS, G-TUBE IN PLACE, PATENT CONNECTED TO FEEDING ORDERED, NO RESIDUAL NOTED AT THIS TIME. HOB ELEVATED AT ALL THE TIME, DEBBIE PICC LINE SITE NOTED WITH NO S/S OF INFECTION, DRESSING INTACT, RCW HD CATH SITE WITH NO S/S OF INFECTION, INTACT, PATIENT ON TELE MONITORING WITH SR. ISOLATION PRECAUTION MAINTAINED AND STRICTLY OBSERVED, KEPT CLEAN AND DRY. SAFETY MAINTAINED, BED AT THE LOWEST LOCKED POSITION, WILL CONTINUE TO MONITOR PER PLAN OF CARE.
--- NOTE | 2019-03-08 19:44 | NUR ---
STONE SANDBLASTER CLOSING NOTE NO SIGNIFICANT CHANGES NOTED. NO RESPIRATORY DISTRESS NOTED. TOLERATED GTF. KEPT CLEAN AND DRY. WOUND TX PROVIDED. HOB ELEVATED. SIDE RAILS UP AND LOCKED. BED KEPT AT LOWEST POSITION. CONTINUITY OF CARE ENDORSED TO PM NURSE.
[2019-03-09] VITALS (7 sets, daily range): BP systolic 95–111; BP diastolic 52–63
[2019-03-09] MEDS: NEPRO 1,000 ML BOTTLE GT SCH (00:03)
[2019-03-09] MEDS: ALBUTEROL FS 2.5 MG/0.5 ML VIAL.NEB NEB SCH ×5 (01:55→20:04)
[2019-03-09] MEDS: IPRATROPIUM NEB FS 0.5 MG/2.5 ML AMPUL.NEB NEB SCH ×5 (01:55→20:04)
--- NOTE | 2019-03-09 04:00 | NUR ---
BAGEL MAKER NOTE RECEIVED PATIENT FROM RN FOR DENNIS. PATIENT IS ALERT AND ORIENTED X1 IN A STABLE CONDITION. PATIENT IS ON TRACH AND TOLERATING WELL. TRACH IS PORTEX #8, AC 17, TV 550, [id number]% AND PEEP 5. NO SIGNS OF SOB. PATIENT HAS PICC LINE ON DEBBIE WITH TKO RUNNING AND A RIGHT CHEST WALL HD CATH. PATIENT HAS A G-TUBE WITH NEPRO RUNNING AT 50ML/HR AND NO SIGNS OF OCCLUSION. ALL SAFETY PRECAUTION ARE APPLIED BED ON LOW POSITION, SIDE RAILS UP X2, AND CALL LIGHT IN REACH. WILL CONTINUE TO MONITOR.
--- NOTE | 2019-03-09 04:02 | NUR ---
REPORT GIVEN TO ALLYSSA FOR DENNIS. PATIENT REMAINED IN STABLE CONDITION, NO SIGNIFICANT CHANGE IN CONDITION NOTED. NO S/S OF ACUTE DISTRESS NOTED, BREATHING EVEN AND UNLABORED.
[2019-03-09] MEDS: METRONIDAZOLE 500 MG TABLET PO SCH ×3 (05:04→20:18)
--- NOTE | 2019-03-09 05:30 | NUR ---
STUDIO DIRECTOR NOTE PATIENTS BLOOD SUGAR WAS 67 AND PROVIDED SUGAR WATER. WILL RE-CHECK BLOOD SUGAR IN 30MIN
[2019-03-09] MEDS: BLOOD SUGAR DIAGNOSTIC 1 EACH STRIP IN SCH ×3 (06:14→17:30)
--- NOTE | 2019-03-09 07:30 | NUR ---
ARTIFICIAL BREEDING TECHNICIAN OPENING NOTE PATIENT STABLE TOLERATING TRACH AND G-TUBE FEEDINGS. WITH NO SIGNS OF DISTRESS. ALL SAFETY PRECAUTIONS ARE APPLIED. ENDORSED PATIENT TO AM NURSE.
--- NOTE | 2019-03-09 07:30 | NUR ---
DISMANTLER INITIAL NOTES RECEIVED PT IN BED, ON VENT SETTINGS TO TRACH PER MD ORDER. VS STABLE. DEBBIE PICC LINE PATENT/FLUSHED NO S/SX OF INFECTION. PT IN RELAXED POSITION. ABLE TO FOLLOW COMMANDS. ON TELE SR. BLE OFFLOADED. SAFETY MEASURES MAINTAINED. CALL LIGHT IN REACH. WILL CONT TO MONITOR.
[2019-03-09] MEDS: CHLORHEXIDINE GLUCONATE 15 ML UDC MM SCH (08:18)
[2019-03-09] MEDS: ACIDOPHILUS/BULGARICUS 1 EACH TAB.CHEW GT SCH ×2 (08:18→20:18)
[2019-03-09] MEDS: SUCRALFATE 1 G/10 ML UDC GT SCH ×2 (08:18→20:18)
[2019-03-09] MEDS: VORICONAZOLE 200 MG TABLET PO SCH ×2 (08:18→20:18)
[2019-03-09] MEDS: DOCUSATE SODIUM LIQ 100 MG/10 ML UDC GT SCH ×2 (08:18→16:34)
[2019-03-09] MEDS: TRAMADOL HCL 50 MG TABLET GT SCH ×2 (08:19→16:34)
[2019-03-09] MEDS: PROSOURCE / PROSTAT (PYXIS) 30 ML UDC GT SCH ×3 (08:20→16:34)
[2019-03-09] MEDS: PANTOPRAZOLE 40 MG VIAL IV SCH ×2 (08:20→16:34)
[2019-03-09] MEDS: DAKINS QUARTER STRENGTH (0.125%) 480 ML BOTTLE TOP SCH (08:26)
[2019-03-09] MEDS: Z GUARD REMEDY 2 OZ OINT TP SCH ×2 (08:27→20:18)
--- NOTE | 2019-03-09 09:00 | NUR ---
CLINICAL LABORATORY MANAGER NOTES PER HD NURSE, HOLD COLISMETHATE UNTIL AFTER HD.
[2019-03-09] MEDS: COLISTIMETHATE SODIUM 100 MG in IV NS 0.9% 50 ML IV SCH ×2 (10:30→12:39)
[2019-03-09] MEDS: ATENOLOL 25 MG TABLET GT SCH (17:19)
--- NOTE | 2019-03-09 17:20 | NUR ---
RT Pt rc'd trach'd and on vent on ordered settings. Pt is stable. No respiratory distress noted t/o shift. Addendum: 03/09/19 at 1730 by DORITA CROSS RT Amended: Links added.
--- NOTE | 2019-03-09 18:39 | NUR ---
AUTO PORTER END OF SHIFT NOTES PT IN BED ASLEEP BUT EASILY AROUSABLE. IN RELAXED POSITION. VENT SETTINGS TO TRACH PER MD ORDER. PT TOLERATED TREATMENTS WELL. VS STABLE. SAFETY AND ISOLATION PRECAUTIONS MAINTAINED THROUGHOUT SHIFT. PT REMAINS AFEBRILE. WILL ENDORSE TO PM NURSE FOR DENNIS.
--- NOTE | 2019-03-09 23:40 | NUR ---
PATIENT NOTED WITH SHALLOW BREATHING, BREATHING AT THE RATE OF 27, TAKING SMALL BREATHS, PATIENT HARDLY AROUSABLE, OPEN EYES WITH STIMULATION, PUPIL EQUAL, RESPONSIVE TO LIGHT, VITAL SIGNS, BP141/81, HR77, R27, TEMP97.0, O2 SATURATION 98% ON 2LPM VIA NC. CALLED DR EVAN LANE AT THIS TIME, LEFT MESSAGE. Addendum: 03/10/19 at 0028 by BRIANDA VILLARREAL RN PLEASE DISREGARD CHARTED ON WRONG PATIENT
--- NOTE | 2019-03-09 23:45 | NUR ---
DR EVAN LANE CALLED BACK AT THIS TIME, RELAYED PATIENT CONDITION, AND VITAL SIGNS TO DR GORDON WITH NEW ORDER TO DO STAT ABG'S. NOTED AND CARRIED OUT. Addendum: 03/10/19 at 0029 by BRIANDA VILLARREAL RN PLEASE DISREGARD, CHARTED ON WRONG PATIENT
[2019-03-10] VITALS: BP 111/67
--- NOTE | 2019-03-10 00:11 | NUR ---
ABG'S RESULTS CAME BACK AT THIS TIME, PATIENT CO2 LEVELS NOTED ELEVATED, CALLED DR GORDON AT THIS TIME, RELAYED ABG'S RESULTS TO , WITH ORDER TO PUT PATIENT ON BIPAP WITH PRESCRIBED SETTINGS. ABG'S IN 2 HOURS. NOTED AND CARRIED OUT. Addendum: 03/10/19 at 0029 by BRIANDA VILLARREAL RN PLEASE DISREGARD, CHARTED ON WRONG PATIENT
[2019-03-10] MEDS: BLOOD SUGAR DIAGNOSTIC 1 EACH STRIP IN SCH ×5 (00:39→23:39)
[2019-03-10] MEDS: ALBUTEROL FS 2.5 MG/0.5 ML VIAL.NEB NEB SCH ×4 (01:53→19:27)
[2019-03-10] MEDS: IPRATROPIUM NEB FS 0.5 MG/2.5 ML AMPUL.NEB NEB SCH ×4 (01:53→19:27)
[2019-03-10] MEDS: NEPRO 1,000 ML BOTTLE GT SCH (03:25)
[2019-03-10 04:00] VITALS: BP 108/66
[2019-03-10] MEDS: METRONIDAZOLE 500 MG TABLET PO SCH ×3 (04:25→21:18)
[2019-03-10 07:07] LABS: BASOPHILS # (AUTO) 0.1 /CMM (0.0-0.2); BASOPHILS % (AUTO) 0.6 % (0.0-2.0); EOSINOPHILS % (AUTO) 8.4 % (0.0-6.0); HEMATOCRIT 23 % (39-51); HEMOGLOBIN 7.2 g/dL (13.5-17.5); LYMPHOCYTES # (AUTO) 1.8 /CMM (0.8-4.8); LYMPHOCYTES % (AUTO) 14.4 % (20.0-44.0); MEAN CORPUSCULAR HGB CONC 31 g/dl (31.0-36.0); MEAN CORPUSCULAR VOLUME 85 fL (80-96); MONOCYTES # (AUTO) 1.6 /CMM (0.1-1.30); MONOCYTES % (AUTO) 12.3 % (2.0-12.0); NEUTROPHILS # (AUTO) 8.1 /CMM (1.8-8.9); NEUTROPHILS % (AUTO) 64.3 % (43.0-81.0); PLATELET COUNT (AUTO) 295 /CMM (150-450); RED BLOOD CELL COUNT(AUTO) 2.72 MIL/uL (4.5-6.0); WHITE BLOOD COUNT (AUTO) 12.7 K/uL (4.3-11.0)
--- NOTE | 2019-03-10 07:07 | NUR ---
NO SIGNIFICANT CHANGE IN CONDITION NOTED, NO S/S OF ACUTE DISTRESS NOTED. KEPT CLEAN AND DRY. ALL DUE MEDS GIVEN ORDERED. TOLERATED WELL. SAFETY MAINTAINED, WILL ENDORSE TO AM SHIFT NURSE FOR DENNIS.
[2019-03-10 07:27] LABS: CALCIUM, SERUM 9.7 mg/dL (8.5-10.1); MAGNESIUM 2.6 mg/dL (1.8-2.4); PHOSPHORUS 3.5 mg/dL (2.5-4.9); POTASSIUM 4.1 mmol/L (3.5-5.1)
--- NOTE | 2019-03-10 07:30 | NUR ---
[employer] INITIAL NOTES RECEIVED PT IN BED, OPENS EYES. NON VERBAL ON VENT TO TRACH. SETTINGS MD ORDERED. NO S/SX OF RESP DISTRESS. ON TELE SR. RCW HD CATH IN PLACE. DEBBIE PICC LINE FLUSHED/PATENT/WITH BLOOD RETURN. NEPRO RUNNING AT 50CC/HR WITH NO RESIDUAL. VS STABLE. ACTIVE BOWEL SOUNDS. LUNG SOUNDS CLEAR. SAFETY/ISOLATION PRECAUTIONS MAINTAINED. CALL LIGHT IN REACH. WILL CONT TO MONITOR.
[2019-03-10 08:00] VITALS: BP 94/53
[2019-03-10] MEDS: CHLORHEXIDINE GLUCONATE 15 ML UDC MM SCH (08:34)
[2019-03-10] MEDS: SUCRALFATE 1 G/10 ML UDC GT SCH ×2 (08:34→21:18)
[2019-03-10] MEDS: ACIDOPHILUS/BULGARICUS 1 EACH TAB.CHEW GT SCH ×2 (08:34→21:18)
[2019-03-10] MEDS: DOCUSATE SODIUM LIQ 100 MG/10 ML UDC GT SCH ×2 (08:34→16:16)
[2019-03-10] MEDS: TRAMADOL HCL 50 MG TABLET GT SCH ×2 (08:35→16:21)
[2019-03-10] MEDS: VORICONAZOLE 200 MG TABLET PO SCH ×2 (08:35→21:18)
[2019-03-10] MEDS: PANTOPRAZOLE 40 MG VIAL IV SCH ×2 (08:35→16:20)
[2019-03-10] MEDS: PROSOURCE / PROSTAT (PYXIS) 30 ML UDC GT SCH ×3 (08:39→16:20)
[2019-03-10] MEDS: DAKINS QUARTER STRENGTH (0.125%) 480 ML BOTTLE TOP SCH (08:43)
[2019-03-10] MEDS: Z GUARD REMEDY 2 OZ OINT TP SCH ×2 (08:44→21:15)
[2019-03-10] MEDS: COLISTIMETHATE SODIUM 100 MG in IV NS 0.9% 50 ML IV SCH (10:21)
[2019-03-10 12:00] VITALS: BP 99/61
[2019-03-10 16:00] VITALS: BP 96/63
[2019-03-10] MEDS: ATENOLOL 25 MG TABLET GT SCH (17:50)
--- NOTE | 2019-03-10 18:51 | NUR ---
SKIVER HAND END OF SHIFT NOTES PT IN BED, EYES OPEN AND RESPONSIVE. STABLE ON VENTILATOR; TOLERATING SETTINGS WELL. ON TELE ST. PT TOLERATED PROCEDURES WELL; STABLE VS POST HD. SAFETY MEASURES IN PLACE. WILL ENDORSE TO PM NURSE FOR DENNIS.
[2019-03-10] MEDS: VANCOMYCIN 500 MG in IV D5W 100 ML IV PRN (19:01)
[2019-03-10 20:00] VITALS: BP 107/68
[2019-03-11] VITALS: BP 96/61
[2019-03-11] MEDS: NEPRO 1,000 ML BOTTLE GT SCH (01:18)
[2019-03-11] MEDS: IPRATROPIUM NEB FS 0.5 MG/2.5 ML AMPUL.NEB NEB SCH ×4 (01:54→19:48)
[2019-03-11] MEDS: ALBUTEROL FS 2.5 MG/0.5 ML VIAL.NEB NEB SCH ×4 (01:54→19:48)
[2019-03-11 04:00] VITALS: BP 97/61
[2019-03-11] MEDS: BLOOD SUGAR DIAGNOSTIC 1 EACH STRIP IN SCH ×3 (05:08→18:11)
[2019-03-11] MEDS: METRONIDAZOLE 500 MG TABLET PO SCH ×3 (05:09→20:18)
--- NOTE | 2019-03-11 05:39 | NUR ---
RT PATIENT WAS RECEIVED ON CONTINUOUS VENT SUPPORT ON NOTED VENT SETTINGS.PATIENT STABLE T/O THE SHIFT. AIRWAY PATENT AND SECURED. WILL CONTINUE TO MONITOR. Addendum: 03/11/19 at 0541 by SOHAIL BAUTISTA RT Amended: Links added.
--- NOTE | 2019-03-11 07:40 | NUR ---
RN NOTE: RECEIVED PATIENT IN BED ASLEEP, AROUSABLE WITH TACTILE STIMULI AND VERBAL CUES, BUT NONVERBAL. RESPIRATION EVEN AND UNLABORED SATURATING 100% WITH CURRENT VENT SETTING. 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 TRACH CARE WAS PROVIDED. DRESSING WAS CHANGED. AFEBRILE. SKIN WARM TOUCH. (R) CHEST PERMACATH WAS NOTED IN PLACED WITH TRANSPARENT DRESSING. ON OPEN END SPINNING OPERATOR ST HR= 103. HOB ELEVATED. BED ALARMED AND LOCKED AT ALL TIMES. BED ON LOWEST POSITION. PATIENT WAS RECEIVING GT FEEDING OF NEPHRO @50ML/HR WITH NO RESIDUAL. (L) UPPER ARM PICC LINE WITH 2 PORTS INTACT AND PATENT WITH TRANSPARENT DRESSING NOTED. CALL LIGHT WITHIN REACH. NEEDS ANTICIPATED. NO COFFEE GROUND EMESIS NOTED. PENDING HEMODIALYSIS FOR TODAY.
[2019-03-11 07:49] LABS: BASOPHILS # (AUTO) 0.2 /CMM (0.0-0.2); BASOPHILS % (AUTO) 1.5 % (0.0-2.0); EOSINOPHILS % (AUTO) 6.8 % (0.0-6.0); HEMATOCRIT 27 % (39-51); HEMOGLOBIN 8.4 g/dL (13.5-17.5); LYMPHOCYTES # (AUTO) 1.6 /CMM (0.8-4.8); LYMPHOCYTES % (AUTO) 10.2 % (20.0-44.0); MEAN CORPUSCULAR HGB CONC 31 g/dl (31.0-36.0); MEAN CORPUSCULAR VOLUME 86 fL (80-96); MONOCYTES # (AUTO) 1.2 /CMM (0.1-1.30); NEUTROPHILS # (AUTO) 11.3 /CMM (1.8-8.9); NEUTROPHILS % (AUTO) 73.5 % (43.0-81.0); PLATELET COUNT (AUTO) 289 /CMM (150-450); RED BLOOD CELL COUNT(AUTO) 3.13 MIL/uL (4.5-6.0); WHITE BLOOD COUNT (AUTO) 15.3 K/uL (4.3-11.0)
[2019-03-11 07:57] LABS: CALCIUM, SERUM 10.3 mg/dL (8.5-10.1); CREATININE 6.5 mg/dL (0.6-1.3); MAGNESIUM 2.7 mg/dL (1.8-2.4); PHOSPHORUS 3.3 mg/dL (2.5-4.9); POTASSIUM 4.8 mmol/L (3.5-5.1)
[2019-03-11 08:00] VITALS: BP 94/66
[2019-03-11] MEDS: VORICONAZOLE 200 MG TABLET PO SCH ×2 (08:37→20:18)
[2019-03-11] MEDS: COLISTIMETHATE SODIUM 100 MG in IV NS 0.9% 50 ML IV SCH (08:37)
[2019-03-11] MEDS: ACIDOPHILUS/BULGARICUS 1 EACH TAB.CHEW GT SCH ×2 (08:37→20:18)
[2019-03-11] MEDS: SUCRALFATE 1 G/10 ML UDC GT SCH ×2 (08:38→20:18)
[2019-03-11] MEDS: CHLORHEXIDINE GLUCONATE 15 ML UDC MM SCH (08:38)
[2019-03-11] MEDS: TRAMADOL HCL 50 MG TABLET GT SCH ×2 (08:38→16:28)
[2019-03-11] MEDS: PANTOPRAZOLE 40 MG VIAL IV SCH ×2 (08:39→16:28)
[2019-03-11] MEDS: Z GUARD REMEDY 2 OZ OINT TP SCH ×2 (08:59→20:19)
[2019-03-11] MEDS: DOCUSATE SODIUM LIQ 100 MG/10 ML UDC GT SCH ×2 (09:00→16:28)
[2019-03-11] MEDS: DAKINS QUARTER STRENGTH (0.125%) 480 ML BOTTLE TOP SCH (09:00)
[2019-03-11] MEDS: PROSOURCE / PROSTAT (PYXIS) 30 ML UDC GT SCH ×3 (09:26→16:28)
[2019-03-11 12:00] VITALS: BP 99/68
--- NOTE | 2019-03-11 14:00 | NUR ---
RN NOTE: DR. MASSIMO LÓPEZ WAS IN THE ROOM AND PER MD, SHE WILL ORDER HD FOR TODAY AND BLOOD CULTURES WITH HD. WILL INFORM HEMODIALYSIS NURSE ZOHREH.
[2019-03-11 16:00] VITALS: BP 98/65
[2019-03-11] MEDS: ATENOLOL 25 MG TABLET GT SCH (18:00)
--- NOTE | 2019-03-11 19:27 | NUR ---
RN NOTE: BEDSIDE REPORT GIVEN TO PM SHIFT NURSE FOR CONTINUITY OF CARE. PATIENT ON CONTINUOUS GT FEEDING OF NEPHRO @ 50ML/HR WITH NO RESIDUAL NOTED. PATIENT HAD 2 LOOSE BOWEL MOVEMENTS. PATIENT REMAINED ON CONTACT ISOLATION FOR MRSA OF THE (R) FOOT WOUND.
[2019-03-11 20:00] VITALS: BP 110/55
[2019-03-12] VITALS: BP 112/64
[2019-03-12] MEDS: BLOOD SUGAR DIAGNOSTIC 1 EACH STRIP IN SCH ×4 (00:47→18:08)
[2019-03-12] MEDS: ALBUTEROL FS 2.5 MG/0.5 ML VIAL.NEB NEB SCH ×4 (02:05→19:43)
[2019-03-12] MEDS: IPRATROPIUM NEB FS 0.5 MG/2.5 ML AMPUL.NEB NEB SCH ×4 (02:05→19:43)
[2019-03-12 04:00] VITALS: BP 111/60
[2019-03-12] MEDS: METRONIDAZOLE 500 MG TABLET PO SCH ×3 (05:58→21:38)
[2019-03-12] MEDS: NEPRO 1,000 ML BOTTLE GT SCH (05:59)
[2019-03-12 06:35] LABS: CALCIUM, SERUM 9.9 mg/dL (8.5-10.1); CREATININE 5.9 mg/dL (0.6-1.3); MAGNESIUM 2.5 mg/dL (1.8-2.4); PHOSPHORUS 3.4 mg/dL (2.5-4.9); POTASSIUM 4.4 mmol/L (3.5-5.1)
[2019-03-12 06:46] LABS: BASOPHILS # (AUTO) 0.2 /CMM (0.0-0.2); BASOPHILS % (AUTO) 1.2 % (0.0-2.0); EOSINOPHILS % (AUTO) 8.2 % (0.0-6.0); HEMATOCRIT 24 % (39-51); HEMOGLOBIN 7.5 g/dL (13.5-17.5); LYMPHOCYTES # (AUTO) 1.5 /CMM (0.8-4.8); MEAN CORPUSCULAR HGB CONC 31 g/dl (31.0-36.0); MEAN CORPUSCULAR VOLUME 84 fL (80-96); MONOCYTES # (AUTO) 1.7 /CMM (0.1-1.30); MONOCYTES % (AUTO) 12.1 % (2.0-12.0); NEUTROPHILS # (AUTO) 9.4 /CMM (1.8-8.9); NEUTROPHILS % (AUTO) 67.5 % (43.0-81.0); PLATELET COUNT (AUTO) 288 /CMM (150-450); RED BLOOD CELL COUNT(AUTO) 2.87 MIL/uL (4.5-6.0)
--- NOTE | 2019-03-12 07:30 | NUR ---
FUNERAL LOCATION MANAGER INITIAL NOTES RECEIVED PT IN BED, OPENS EYES. NON VERBAL ON VENT TO TRACH. SETTINGS MD ORDERED. NO S/SX OF RESP DISTRESS. ON TELE SR. RIGHT CHEST HD CATH IN PLACE. DEBBIE PICC LINE FLUSHED/PATENT/WITH BLOOD RETURN. NEPRO RUNNING AT 50CC/HR WITH NO RESIDUAL. VS STABLE. ACTIVE BOWEL SOUNDS. LUNG SOUNDS CLEAR. SAFETY/ISOLATION PRECAUTIONS MAINTAINED. CALL LIGHT IN REACH. WILL CONT TO MONITOR.
[2019-03-12 08:00] VITALS: BP 93/67
[2019-03-12] MEDS: DOCUSATE SODIUM LIQ 100 MG/10 ML UDC GT SCH ×2 (09:00→16:11)
[2019-03-12] MEDS: CHLORHEXIDINE GLUCONATE 15 ML UDC MM SCH (09:34)
[2019-03-12] MEDS: ACIDOPHILUS/BULGARICUS 1 EACH TAB.CHEW GT SCH ×2 (09:34→21:38)
[2019-03-12] MEDS: PROSOURCE / PROSTAT (PYXIS) 30 ML UDC GT SCH ×3 (09:35→17:18)
[2019-03-12] MEDS: SUCRALFATE 1 G/10 ML UDC GT SCH ×2 (09:35→21:38)
[2019-03-12] MEDS: VORICONAZOLE 200 MG TABLET PO SCH (09:35)
[2019-03-12] MEDS: TRAMADOL HCL 50 MG TABLET GT SCH ×2 (09:35→17:18)
[2019-03-12] MEDS: COLISTIMETHATE SODIUM 100 MG in IV NS 0.9% 50 ML IV SCH (09:37)
[2019-03-12] MEDS: DAKINS QUARTER STRENGTH (0.125%) 480 ML BOTTLE TOP SCH (09:38)
[2019-03-12] MEDS: Z GUARD REMEDY 2 OZ OINT TP SCH ×2 (09:38→21:38)
[2019-03-12] MEDS: PANTOPRAZOLE 40 MG VIAL IV SCH ×2 (10:13→17:18)
[2019-03-12 12:00] VITALS: BP 100/64
[2019-03-12 16:00] VITALS: BP 110/69
[2019-03-12] MEDS: VANCOMYCIN 500 MG in IV D5W 100 ML IV PRN (16:11)
[2019-03-12] MEDS: ATENOLOL 25 MG TABLET GT SCH (17:19)
--- NOTE | 2019-03-12 18:38 | NUR ---
RT END OF THE SHIFT REPORT, PT. 59 Y OLD MALE PT. RECEIVED @0700 AM TRACH'D PORTEX # 8 ON [facility]. VENT WITH NOTED AC MODE. NO VENT CHANGES DONE T/O DAY PT. REMAIN STABLE. PT SUX'D MINIMAL SOMMER SECRETIONS. B/S RHONCHI/ RALES BILATERALLY, EQUAL CHEST RISE NOTED. VENT IS PLUGGED INTO RED OUTLET. ALARMS ARE SET AND FUNCTIONAL. HME CHANGED, AMBU BAG AT BEDSIDE. TRACH CARE DONE, EXTRA TRACH AT THE BEDSIDE, WILL CONTINUE TO MONITOR. REPORT WILL PASS TO PM SHIFT. Addendum: 03/12/19 at 1838 by SHIRLEY REID RT Amended: Links added.
--- NOTE | 2019-03-12 19:40 | NUR ---
MANAGER OF FINANCIAL REPORTING INITIAL NOTES PT IN BED, OPENS EYES. NON VERBAL ON VENT TO TRACH. SETTINGS MD ORDERED. NO S/SX OF RESP DISTRESS. ON TELE SR. RCW HD CATH IN PLACE. DEBBIE PICC LINE FLUSHED/PATENT/WITH BLOOD RETURN. NEPRO RUNNING AT 50CC/HR WITH NO RESIDUAL. VS STABLE. ACTIVE BOWEL SOUNDS. LUNG SOUNDS CLEAR. SAFETY/ISOLATION PRECAUTIONS MAINTAINED. CALL LIGHT IN REACH.ENDORSED TO NEXT SHIFT FOR CONTINUITY OF CARE
--- NOTE | 2019-03-12 19:43 | NUR ---
RT NOTE: RECEIVED TRACH PT ON [facility] VENT ON NOTED SETTINGS PER MD ORDERS. TRACH IS PATENT AND SECURED. FAGOT MAKER DONE. Q6 BREATHING TX GIVEN WITH NO ADVERSE REACTION NOTED. SX DONE PRN. VENT PLUGGED INTO RED OUTLET. ALARMS ON AND AUDIBLE. RICKY BAG @ BEDSIDE. NO RESP DISTRESS AT THIS TIME. WILL CONT TO MONITOR PT. Addendum: 03/13/19 at 0630 by LULU ESTES RT Amended: Links added.
[2019-03-12 20:00] VITALS: BP 106/66
--- NOTE | 2019-03-12 20:15 | NUR ---
TRAIN INSPECTOR OPENING NOTES RECEIVED REPORT FROM AM RN. PATIENT A/A/O X1 TO NAME, NON-VERBAL BUT RESPONSIVE TO VERBAL & TACTILE STIMULI. BREATHING EVEN & UNLABORED W/ TRACH INTACT & TOLERATING VENT SETTINGS AC 16, TV 500, FIO2 30%, PEEP 5. NO RESPIRATORY DISTRESS NOTED. ON TELE W/ SINUS TACH, HR 120S. LEFT UPPER ARM PICC LINE INTACT & PATENT W/ DRESSING CDI, TKO. RIGHT CHEST WALL HD CATH W/ NO COMPLICATIONS NOTED. G-TUBE PATENT & FLUSHING WELL, NEPRO RUNNING @ 50 ML/HR. NO RESIDUAL NOTED @ THIS TIME. NO S/S OF PAIN OR DISCOMFORT @ THIS TIME. SAFETY MEASURES IN PLACE W/ SIDE RAILS UP & BED ALARM ON. HOB ELEVATED FOR ASPIRATION PRECAUTIONS. TURNED & REPOSITIONED FOR COMFORT. WILL CONTINUE TO MONITOR.
[2019-03-13] VITALS: BP 105/63
[2019-03-13] MEDS: IPRATROPIUM NEB FS 0.5 MG/2.5 ML AMPUL.NEB NEB SCH ×3 (00:58→15:43)
[2019-03-13] MEDS: ALBUTEROL FS 2.5 MG/0.5 ML VIAL.NEB NEB SCH ×3 (00:59→15:43)
[2019-03-13 04:00] VITALS: BP 114/77
--- NOTE | 2019-03-13 07:30 | NUR ---
radiotelegraphist initial notes received pt in bed, a/ox1 opens eyes, able to follow some commands. on tele pt st 116. trach to vent with settings as md ordered; tolerating. picc line tko. hd cath noted on rcw. gtube infusing at 50ml/hr. no residual noted. extremities offloaded. safety/isolation precautions in place. will cont to monitor.
[2019-03-13] MEDS: METRONIDAZOLE 500 MG TABLET PO SCH ×2 (07:39→13:47)
[2019-03-13] MEDS ORDERED: COLI150V12 IJ (07:52)
[2019-03-13] MEDS ORDERED: VANC500F2 IV (07:52)
[2019-03-13] MEDS ORDERED: METR500T PO (07:52)
[2019-03-13] MEDS ORDERED: RXVAN XX (07:52)
[2019-03-13 08:00] VITALS: BP 105/66
[2019-03-13] MEDS: PANTOPRAZOLE 40 MG VIAL IV SCH ×2 (08:22→18:17)
[2019-03-13] MEDS: ACIDOPHILUS/BULGARICUS 1 EACH TAB.CHEW GT SCH (08:22)
[2019-03-13] MEDS: DOCUSATE SODIUM LIQ 100 MG/10 ML UDC GT SCH ×2 (08:22→18:17)
[2019-03-13] MEDS: SUCRALFATE 1 G/10 ML UDC GT SCH (08:22)
[2019-03-13] MEDS: CHLORHEXIDINE GLUCONATE 15 ML UDC MM SCH (08:22)
[2019-03-13] MEDS: TRAMADOL HCL 50 MG TABLET GT SCH ×3 (08:23→17:30)
[2019-03-13] MEDS: PROSOURCE / PROSTAT (PYXIS) 30 ML UDC GT SCH ×3 (08:24→18:17)
[2019-03-13] MEDS: NEPRO 1,000 ML BOTTLE GT SCH (09:11)
[2019-03-13] MEDS: BLOOD SUGAR DIAGNOSTIC 1 EACH STRIP IN SCH ×4 (09:11→18:29)
[2019-03-13] MEDS: Z GUARD REMEDY 2 OZ OINT TP SCH (09:12)
[2019-03-13] MEDS: COLISTIMETHATE SODIUM 100 MG in IV NS 0.9% 50 ML IV SCH (10:47)
[2019-03-13] MEDS: DAKINS QUARTER STRENGTH (0.125%) 480 ML BOTTLE TOP SCH (10:48)
--- NOTE | 2019-03-13 11:50 | NUR ---
satellite television installer notes report given to tonie arboleda at [facility]
[2019-03-13 12:00] VITALS: BP 110/65
[2019-03-13 16:00] VITALS: BP 119/57
[2019-03-13 17:20] VITALS: BP 119/57
[2019-03-13] MEDS: ATENOLOL 25 MG TABLET GT SCH (17:20)
[2019-03-13] MEDS: ACETAMINOPHEN 325 MG TABLET PO PRN (18:20)
--- NOTE | 2019-03-13 18:45 | NUR ---
PRODUCTION WELDING SUPERVISOR NOTES PT LEFT WITH AMBULANCE. HR 106. BP TEMP WNL. MIGUEL ANGEL AND SAAD FORREST AT [facility] ACCEPTED PT WITH THIS HR. PT TRANSPORTED WITH RT ACCOMPANYING ON VENT. TELE BOX REMOVED. PICC LINE IN PLACE; DISCHARGE INSTRUCTIONS GIVEN TO AMBULANCE CREW. ALL NEEDS ATTENDED TO.
== END 2019-03-13 18:59 | DRG 711 ==
LOC: ER 12:30 → TELE-TD 14:11 → TELE1 02-27 11:00
PROVIDERS: ADMIT Internal Medicine; ATTEND Internal Medicine
DX: T80.211A Bloodstream infection due to central venous catheter, initial encounter (principal); Z99.11 Dependence on respirator [ventilator] status; G93.49 Other encephalopathy; J96.10 Chronic respiratory failure, unspecified whether with hypoxia or hypercapnia; L89.154 Pressure ulcer of sacral region, stage 4; E46 Unspecified protein-calorie malnutrition; A41.9 Sepsis, unspecified organism; L89.894 Pressure ulcer of other site, stage 4; L89.893 Pressure ulcer of other site, stage 3; E11.22 Type 2 diabetes mellitus with diabetic chronic kidney disease; Z93.0 Tracheostomy status; K92.2 Gastrointestinal hemorrhage, unspecified; I12.0 Hypertensive chronic kidney disease with stage 5 chronic kidney disease or end stage renal disease; I69.354 Hemiplegia and hemiparesis following cerebral infarction affecting left non-dominant side; N18.6 End stage renal disease; K21.9 Gastro-esophageal reflux disease without esophagitis; M24.561 Contracture, right knee; M24.562 Contracture, left knee; N40.0 Benign prostatic hyperplasia without lower urinary tract symptoms; L03.115 Cellulitis of right lower limb; R13.10 Dysphagia, unspecified; Y84.8 Other medical procedures as the cause of abnormal reaction of the patient, or of later complication, without mention of misadventure at the time of the procedure; Z74.01 Bed confinement status; Z93.1 Gastrostomy status; D64.9 Anemia, unspecified; B37.49 Other urogenital candidiasis; Z99.2 Dependence on renal dialysis; Y92.129 Unspecified place in nursing home as the place of occurrence of the external cause; Z86.19 Personal history of other infectious and parasitic diseases; M24.542 Contracture, left hand; M24.541 Contracture, right hand; Z68.30 Body mass index [BMI] 30.0-30.9, adult; Z79.4 Long term (current) use of insulin
CPT/HCPCS: 31720; 36415; 36569; 71045-TC; 80048-TC; 80053-TC; 80076-TC; 80202-TC; 81000-TC; 82272-TC; 82728-TC; 82962-TC; 83540-TC; 83605-TC; 83735-TC; 84100-TC; 84484-TC; 85025-TC; 85027-TC; 85730-TC; 86704; 86706; 87040-TC; 87070-TC; 87081-TC; 87086-TC; 87186-TC; 87340; 90935-TC; 94002-TC; 94003-TC; 94640-TC; 94760-TC; 94762-TC; 94799-TC; 99082-TC; A4216; A4217; A4623; A6253; A6403; A7526; C1751; C9113; G0378; J0770; J0885; J1815; J2185; J2405; J2543; J2997; J3370; J7042; J7050; J7060; P9047

== ENCOUNTER 2019-03-17 17:15 | Emergency (ER) | payer MEDICAID ==
[~2019-03-17] VITALS: Ht 175.3 cm; Wt 88.0 kg
[~2019-03-17 17:15] MED LIST changes: +ACET-868 PO; -AMIN30LI2 GT; +BISA10SU11 RC; +CHLO473M5 MM; +COLI150V12 IJ; -FOLI0.8T23 GT; +MAGN400O6 PO; -MERO500V IV; +METR500T PO; +NA P133E RC; -SEVE0.8P3 GT; +VANC500F2 IV
--- NOTE | 2019-03-17 17:34 | NUR ---
RT Pt brought into ER by ambulance, pt received with a portex 8 trached on mechanical ventilation. Pt switched over to hospital ventilator with noted settings by transport RT. Alarms are set and audible with BVM by bedside. MANAGER CAR cuff pressure noted. Vent is plugged into red outlet. No respiratory distress noted at this time. Addendum: 03/17/19 at 1827 by TYRESE ROWE RT Amended: Links added.
--- NOTE | 2019-03-17 17:51 | NUR ---
PT REC'D TO ER VIA EMS FROM [facility] HERE FOR PICC LINE INSERTION ON VENT TRACH RECTAL TEMP 98.1 LEGS CONTRACTED . PT RESPOND S TO STIMUITIAWAITING EVALUATION BY ER PROVIDER.
--- NOTE | 2019-03-17 18:01 | NUR ---
VENT 50% AC 14, PEEP 5.0 PEAK 18
--- NOTE | 2019-03-17 18:04 | NUR ---
SHIRLEY AT BEDSIDE . SHE WANTS TO TAKE ALL HER PILLS TO HOMELESS
--- NOTE | 2019-03-17 18:06 | NUR ---
PICC LINE ON LEFT ARM NOT WORKING
--- NOTE | 2019-03-17 18:53 | NUR ---
PT REPOSITIONED FOR COMFORT CONT TO MONITOR
--- NOTE | 2019-03-17 20:11 | NUR ---
PICC LINE NURSE WILL ARRIVE AT 2300
--- NOTE | 2019-03-17 20:40 | NUR ---
Patient is resting comfortably in bed with eyes closed. VSS. RR EVEN & UNLABORED. AWAITING PICC LINE RN. WILL CONT TO MONITOR.
--- NOTE | 2019-03-17 22:20 | NUR ---
Patient is resting comfortably in bed with eyes closed. VSS. RR EVEN & UNLABORED. AWAITING PICC LINE RN. WILL CONT TO MONITOR.
--- NOTE | 2019-03-18 00:54 | NUR ---
Aleshia called for RT transport. ETA 2-3 hrs. Trip#[id number]
--- NOTE | 2019-03-18 03:56 | NUR ---
Aleshia at bedside for transport.
[2019-03-18 03:58] VITALS: BP 101/68
[2019-03-26] MEDS ORDERED: RXGEN XX (12:43)
[2019-03-26] MEDS ORDERED: RXVAN XX (12:43)
[2019-03-26] MEDS ORDERED: MERO500V IV (12:43)
== END 2019-03-18 03:59 ==
LOC: ER 17:15
DX: Z45.2 Encounter for adjustment and management of vascular access device (principal); E11.22 Type 2 diabetes mellitus with diabetic chronic kidney disease; I12.0 Hypertensive chronic kidney disease with stage 5 chronic kidney disease or end stage renal disease; N18.6 End stage renal disease; K21.9 Gastro-esophageal reflux disease without esophagitis; R00.0 Tachycardia, unspecified; Z99.11 Dependence on respirator [ventilator] status; Z86.73 Personal history of transient ischemic attack (TIA), and cerebral infarction without residual deficits; Z98.890 Other specified postprocedural states; Z79.4 Long term (current) use of insulin
CPT/HCPCS: 31720; 71045-TC

== ENCOUNTER 2019-03-21 11:31 | Inpatient (IN) | payer MEDICAID ==
[~2019-03-21] VITALS: Ht 175.3 cm; Wt 86.2 kg
[2019-03-21] VITALS (26 sets, daily range): BP systolic 71–107; BP diastolic 40–76
[~2019-03-21 11:31] MED LIST changes: +OMEP40CA13 GT; -OMEP40CA37 GT
--- NOTE | 2019-03-21 11:32 | NUR ---
[id number], FROM HD, BECOME TACHYCARDIA DURING DIALYSIS PER EMS, TO ER BED 8, NOTED W MOIST SKIN, HOT TO TOUCH. HOOKED TO LABOR RELATIONS REPRESENTATIVE, TACHYCARDIC. RT AT BEDSIDE. PLACED IN VENT WITH SETTINGS OF: VT 550, A/C 14, O2 40% AND PEEP 5.0. DR LO AT BEDSIDE
[2019-03-21] MEDS ORDERED: PIPERACILLIN /TAZOBACTAM 3.375 G in IV D5W 50 ML IV ONE (12:00)
[2019-03-21] MEDS ORDERED: IV NS 0.9% 1,000 ML BAG IV ONE (12:00)
[2019-03-21] MEDS ORDERED: VANCOMYCIN 1 GM in IV D5W 250 ML IV ONE ×2 (12:00→20:00)
[2019-03-21] MEDS ORDERED: PIPERACILLIN /TAZOBACTAM 3.375 G VIAL IV ONE (12:04)
[2019-03-21] MEDS ORDERED: VANCOMYCIN 1 GM VIAL ONE (12:04)
[2019-03-21] MEDS ORDERED: ASCO500T9 GT (12:05)
[2019-03-21] MEDS ORDERED: ZINC220C8 GT (12:05)
[2019-03-21 12:39] LABS: CALCIUM, SERUM 9.5 mg/dL (8.5-10.1); CARBON DIOXIDE 26 mmol/L (21-32); CHLORIDE 97 mmol/L (98-107); CREATININE 5.2 mg/dL (0.6-1.3); GLUCOSE 82 mg/dL (74-106); POTASSIUM 3.9 mmol/L (3.5-5.1); SODIUM SERUM 136 mmol/L (136-145); UREA NITROGEN, BLOOD 46 mg/dL (7-18)
[2019-03-21 12:50] LABS: ALANINE AMINOTRANSFERASE 18 U/L (12-78); ALBUMIN 2.5 g/dL (3.4-5.0); ALKALINE PHOSPHATASE 94 U/L (46-116); ASPARTATE AMINOTRANSFERASE 38 U/L (15-37); BILIRUBIN,DIRECT 0.2 mg/dL (0.0-0.2); BILIRUBIN,TOTAL 0.6 mg/dL (0.2-1.0); TOTAL PROTEIN, SERUM 8.3 g/dL (6.4-8.2)
--- NOTE | 2019-03-21 13:40 | NUR ---
CALLED DR CARPIO OFFICE. CUSTOMER EXPERIENCE CONSULTANT WAS PAGED.
[2019-03-21 13:49] LABS: BASOPHILS # (AUTO) 0.3 /CMM (0.0-0.2); HEMATOCRIT 26 % (39-51); HEMOGLOBIN 8.1 g/dL (13.5-17.5); LYMPHOCYTES % (AUTO) 7.4 % (20.0-44.0); MEAN CORPUSCULAR HGB CONC 31 g/dl (31.0-36.0); MEAN CORPUSCULAR VOLUME 84 fL (80-96); MONOCYTES # (AUTO) 3.3 /CMM (0.1-1.30); MONOCYTES % (AUTO) 12.1 % (2.0-12.0); NEUTROPHILS # (AUTO) 20.9 /CMM (1.8-8.9); NEUTROPHILS % (AUTO) 76.5 % (43.0-81.0); PLATELET COUNT (AUTO) 439 /CMM (150-450); WHITE BLOOD COUNT (AUTO) 27.3 K/uL (4.3-11.0)
--- NOTE | 2019-03-21 14:10 | NUR ---
REPORT GIVEN TO GUSTAVO FORREST OF TELE UNIT
--- NOTE | 2019-03-21 14:28 | NUR ---
CALLED DR CARPIO OFFICE FOR FOLLOW UP. MUSHROOM CUTTER WAS PAGED
[2019-03-21] MEDS ORDERED: ACETAMINOPHEN 650 MG/SUPP.RECT RC ONE ×2 (14:30→14:43)
--- NOTE | 2019-03-21 14:51 | NUR ---
CALLED HOUSE SUP TO HAVE BED UPGRADED TO [facility]
--- NOTE | 2019-03-21 15:14 | NUR ---
CALLED DR PRINCE
--- NOTE | 2019-03-21 15:20 | NUR ---
PATIENT NOT ABLE TO SIGN FOR PICC LINE CONSENT, SIGNED BY URSZULA ADAN MD
--- NOTE | 2019-03-21 15:25 | NUR ---
PICC LINE NURSE AT BEDSIDE
--- NOTE | 2019-03-21 16:06 | NUR ---
REMOVED DEBBIE PICC LINE ASEPTICALLY, PATIENT TOLERATED REMOVAL WELL. PRESSURE AT SITE AFTER REMOVAL, NO NOTED BLEEDING.
--- NOTE | 2019-03-21 16:10 | NUR ---
TRANSFERRED TO [facility] WITH RT AND TECH.
--- NOTE | 2019-03-21 16:10 | NUR ---
CATHETER TIP SENT TO LAB.
--- NOTE | 2019-03-21 16:30 | NUR ---
RN NOTE: RECEIVED PATIENT FROM ER TRANSPORTED VIA GURNEY TO ROOM 114-1. PATIENT WAS OBTUNDED ON CHRONIC VENT-TRACH DEPENDENT SATURATING 100%. ATTACHED TO INSTRUCTIONAL MATERIALS DIRECTOR SR HR= 96. AFEBRILE. SKIN WARM TO TOUCH. COMPLETE BODY ASSESSMENT WAS DONE. TOOK PICTURES OF THE PATIENT'S SKIN ISSUES AND FILED TO PATIENT'S CHART. V/S WAS TAKEN AND PATIENT WAS NOTED HYPOTENSIVE WITH SBP ON THE 80'S. CALLED MARTHA NICOLAS AND RECHECKED PATIENT'S BP ON ALL EXTREMITIES WITH THE SAME BP. PAGED DR. GORDON ABOUT THE PATIENT'S BP AND THE 1L NS BOLUS GIVEN AT ER. AWAITING FOR MD'S RESPONSE. PM CARE WAS RENDERED TO THE PATIENT. NO BM NOTED. PATIENT WAS PLACED ON CONTACT ISOLATION FOR MRSA OF THE (R) FOOT WOUND AND HX OF C. DIFF. (R) UA PICC LINE WITH 3 PORTS NOTED INTACT AND PATENT WITH TRANSPARENT DRESSING. (R) CHEST WALL HD CATHETER WAS ALSO IN PLACED WITH CLEAN AND DRY DRESSING. GT WAS INTACT AND CLAMPED AT THIS TIME. BED ALARMED AND LOCKED AT ALL TIMES. CALL LIGHT WITHIN REACH. AWAITING FOR DR. GORDON'S RESPONSE.
--- NOTE | 2019-03-21 16:52 | NUR ---
PATIENT RECEIVED FROM ER SBP ON 80'S,DR. GORDON MADE AWARE ,WILL TRANSFER TO ICU FOR PRESSOR,NURSING SUP MADE AWARE,AWAITS ICU BED.
--- NOTE | 2019-03-21 16:56 | NUR ---
PER DR. GORDON HE WILL PUT IN ADMISSION ORDERS.
[2019-03-21] MEDS ORDERED: NOREPINEPHRINE 16 MG in IV D5W 500 ML IV PRN (17:00)
--- NOTE | 2019-03-21 17:07 | NUR ---
RN NOTE: CALLED AND SPOKE WITH MAC MCNEIL, DAUGHTER AND ACCORDING TO HER SHE AND HER BROTHER KAREY WERE DECIDING FULL CODE FOR THE PATIENT. PER NEFTALYI'S REQUEST, SHE WILL GATHER AND TALK TO THE REST OF HER FAMILY AND WILL CALL BACK IF THEY WILL HAVE ANY CHANGES ON THE CODE STATUS. DR. GORDON MADE AWARE.
[2019-03-21 17:12] LABS: APPEARANCE,URINE Cloudy (CLEAR); BILIRUBIN,URINE Negative (NEGATIVE); BLOOD, URINE Moderate Ery/uL (NEGATIVE); COLOR,URINE Yellow (YELLOW); KETONES,URINE Negative (NEGATIVE); LEUKOCYTE ESTERASE ,URINE Large (NEGATIVE); NITRITE, URINE Positive (NEGATIVE); PH,URINE 8.5 (5.0-8.0); PROTEIN,URINE >=300 mg/dl (NEGATIVE); UGLUCOSE Negative (NEGATIVE); UROBILINOGEN,URINE 0.2 EU/dL (0.2)
[2019-03-21 17:25] LABS: BACTERIA,URINE Many /HPF (None Seen); RBC,URINE TOO NUMEROUS TO COUN /HPF (0-2); SQUAMOUS EPITHELIAL CELL,UR Rare /HPF (None Seen); URINE AMORPHOUS URATE Moderate /HPF (None Seen); WBC,URINE TOO NUMEROUS TO COUN /HPF (0-3)
[2019-03-21] MEDS ORDERED: ACETAMINOPHEN 325 MG TABLET MC PRN (17:30)
[2019-03-21] MEDS ORDERED: BISACODYL SUPP (10 MG) 10 MG/SUPP.RECT SUPP.RECT RC PRN (17:30)
[2019-03-21] MEDS ORDERED: NEPRO VAN 237 ML CAN GT SCH (17:30)
[2019-03-21] MEDS ORDERED: FEE PK DOSING 1 MIN EA MC ONE ×3 (17:56→19:17)
[2019-03-21] MEDS ORDERED: DEXTROSE 50%-WATER 50 ML DISP.SYRIN IV PRN ×2 (18:00→19:00)
[2019-03-21] MEDS ORDERED: ZOLPIDEM TARTRATE 5 MG TABLET PO PRN (18:00)
[2019-03-21] MEDS ORDERED: *INSULIN REGULAR(HUMULIN R)HUM 100 UNIT/ML VIAL SQ PRN (18:00)
[2019-03-21] MEDS ORDERED: ONDANSETRON HCL/PF 4 MG/2 ML VIAL IVP PRN (18:00)
[2019-03-21] MEDS ORDERED: MAG HYDROX/AL HYDROX/SIMETH 30 ML UDC PO PRN (18:00)
[2019-03-21] MEDS ORDERED: MAGNESIUM HYDROXIDE 30 ML UDC PO PRN (18:00)
[2019-03-21] MEDS: IPRATROPIUM NEB FS 0.5 MG/2.5 ML AMPUL.NEB NEB SCH ×3 (18:00→22:46)
[2019-03-21] MEDS ORDERED: INSULIN REGULAR, HUMAN 100 UNIT/ML 3 ML VIAL SQ PRN (18:00)
[2019-03-21] MEDS: CHLORHEXIDINE GLUCONATE 15 ML UDC MM SCH (18:40)
--- NOTE | 2019-03-21 19:04 | NUR ---
RN NOTE: SEEN BY GRETCHEN RODRIGUEZ (INFECTIOUS DISEASE) AND SHE GAVE VERBAL ORDER TO DRAW BLOOD CULTURES X2 FROM THE HD CATHETER DURING HEMODIALYSIS. ORDER, NOTED AND CARRIED OUT. WILL RELAY THE MESSAGE TO THE PM SHIFT NURSE.
[2019-03-21] MEDS: ALBUTEROL FS 2.5 MG/0.5 ML VIAL.NEB NEB SCH ×2 (19:29→22:46)
--- NOTE | 2019-03-21 19:30 | NUR ---
RECEIVED PT TRACH PORTEX 8 ON VENT WITH NOTED SETTINGS. PT IS OBTUNDED. Q4 BREATHING TX GIVEN ORDERED. NO ADVERSE REACTION NOTED. SUCTION DONE. VENT ALARMS SET AND AUDIBLE. AMBU BAG AT BEDSIDE. WILL CONTINUE TO MONITOR.
--- NOTE | 2019-03-21 19:30 | NUR ---
RN NOTE: BEDSIDE REPORT WAS GIVEN TO PM SHIFT NURSE FOR CONTINUITY OF CARE. PATIENT REMAINED ON LEVOPHED 12MCG/MIN GIVEN THROUGH THE (R) UA PICC LINE. PATIENT REMAINED ON SUPINE POSITION. NO BM NOTED WITHIN THE SHIFT. RELAYED THE MESSAGE FROM GRETCHEN RODRIGUEZ (ID) REGARDING THE BLOOD CULTURES X2 TO BE DRAWN AT THE HD CATHETER IF PATIENT WILL GET HD. PATIENT ON CONTACT ISOLATION FOR MRSA (R) FOOT WOUND AND HX OF C. DIFF.
[2019-03-21] MEDS: BLOOD SUGAR DIAGNOSTIC 1 EACH STRIP IN SCH (19:59)
[2019-03-21] MEDS ORDERED: FLUCONAZOLE (100 MG) 100 MG TABLET PO SCH (20:00)
[2019-03-21] MEDS ORDERED: MEROPENEM 500 MG in IV NS 0.9% 50 ML IV ONE (20:00)
[2019-03-21] MEDS: ACETAMINOPHEN 325 MG TABLET PO PRN (20:03)
[2019-03-21] MEDS: ACIDOPHILUS/BULGARICUS 1 EACH TAB.CHEW GT SCH (20:03)
[2019-03-21] MEDS: SUCRALFATE 1 G/10 ML UDC GT SCH (20:04)
--- NOTE | 2019-03-21 20:50 | NUR ---
RN NOTE RECEIVED BEDSIDE REPORT FROM A NURSE, PATIENT IS OBTUNDED, LETHARGIC, DOES NOT FOLLOW COMMANDS, NO RESPIRATORY DISTRESS NOTED, IN FLAT POSITION DUE TO DECREASED BLOOD PRESSURE, ON CONTINUOUS LEVOPHED DRIPS, NO PAIN OR DISCOMFORT NOTED, TEMPERATURE OF 100.4F NOTED, COOLING MEASURES APPLIED, RIGHT UPPER ARM PICC LINE NOTED, NO S/S OF INFECTION/INFILTRATION NOTED, WILL CONTINUE TO MONITOR PATIENT
[2019-03-21] MEDS ORDERED: GENTAMICIN 100 MG in IV D5W 100 ML IV ONE (21:00)
[2019-03-21] MEDS ORDERED: PIPERACILLIN /TAZOBACTAM 2.25 G in IV D5W 50 ML IV SCH (21:00)
[2019-03-21] MEDS ORDERED: BLOOD SUGAR DIAGNOSTIC 1 EACH STRIP VI SCH (22:00)
[2019-03-22] VITALS (96 sets, daily range): BP systolic 77–121; BP diastolic 18–83
[2019-03-22] MEDS: BLOOD SUGAR DIAGNOSTIC 1 EACH STRIP IN SCH ×5 (00:02→23:50)
[2019-03-22] MEDS: ACETAMINOPHEN 325 MG TABLET PO PRN (02:57)
[2019-03-22] MEDS: IPRATROPIUM NEB FS 0.5 MG/2.5 ML AMPUL.NEB NEB SCH ×6 (03:22→23:52)
[2019-03-22] MEDS: ALBUTEROL FS 2.5 MG/0.5 ML VIAL.NEB NEB SCH ×6 (03:22→23:52)
[2019-03-22 04:23] LABS: BASOPHILS # (AUTO) 0.3 /CMM (0.0-0.2); BASOPHILS % (AUTO) 0.9 % (0.0-2.0); HEMATOCRIT 23 % (39-51); LYMPHOCYTES # (AUTO) 2.3 /CMM (0.8-4.8); LYMPHOCYTES % (AUTO) 7.8 % (20.0-44.0); MEAN CORPUSCULAR HGB CONC 31 g/dl (31.0-36.0); MEAN CORPUSCULAR VOLUME 84 fL (80-96); MONOCYTES # (AUTO) 3.8 /CMM (0.1-1.30); MONOCYTES % (AUTO) 13.1 % (2.0-12.0); NEUTROPHILS # (AUTO) 21.3 /CMM (1.8-8.9); NEUTROPHILS % (AUTO) 73.2 % (43.0-81.0); PLATELET COUNT (AUTO) 424 /CMM (150-450); RED BLOOD CELL COUNT(AUTO) 2.72 MIL/uL (4.5-6.0); WHITE BLOOD COUNT (AUTO) 29.1 K/uL (4.3-11.0)
[2019-03-22 04:40] LABS: CALCIUM, SERUM 8.8 mg/dL (8.5-10.1); CREATININE 5.9 mg/dL (0.6-1.3); MAGNESIUM 2.1 mg/dL (1.8-2.4); POTASSIUM 3.8 mmol/L (3.5-5.1)
[2019-03-22 05:18] LABS: EOSINOPHILS % (MANUAL) 4 % (0-4); LYMPHOCYTES % (MANUAL) 8 % (16-48); MONOCYTES % (MANUAL) 9 % (0-11.0); NEUTROPHILS % (MANUAL) 79 (42-76)
--- NOTE | 2019-03-22 05:45 | NUR ---
RN NOTE RECEIVED CALL FROM LAB, HEMOGLOBIN OF 6.6 AND PLATELETS 33, NOTIFIED DR TYLER, ORDER OF 1 UNIT OF PRBC GIVEN, LAB IS AWARE, PER PURA LAB TECHICIAN WILL BE READY IN 1 HOUR Addendum: 03/22/19 at 0639 by BRIGITTE SILVA RN WRONG PATIENT
--- NOTE | 2019-03-22 07:30 | NUR ---
TRIMMING MACHINE SET UP OPERATOR INITIAL NOTE RECEIVED PATIENT NON-VERBAL, VENT DEPENDENT. NO S/S OF PAIN OR DISCOMFORT. NO RESPIRATORY DISTRESS NOTED, WITH VENT SETTING AC 14, TV 550, FIO2 40%, PEEP 0. TRACH C/D/I. ON TELE MONITOR SR. GT PATENT, INTACT, IN PLACE, CLAMPED. ALEX PICC LINE PATENT AND INTACT WITH LEVO RUNNING. HOB ELEVATED. SIDE RAILS UP AND LOCKED. BED KEPT AT LOWEST POSITION. ISOLATION PRECAUTIONS. WILL CONTINUE TO MONITOR.
[2019-03-22] MEDS: CHLORHEXIDINE GLUCONATE 15 ML UDC MM SCH ×2 (08:56→17:58)
[2019-03-22] MEDS: ASCORBIC ACID 500 MG TABLET GT SCH ×2 (08:56→17:58)
[2019-03-22] MEDS: SUCRALFATE 1 G/10 ML UDC GT SCH ×2 (08:56→20:40)
[2019-03-22] MEDS: DOCUSATE SODIUM 100 MG CAPSULE PO SCH ×2 (08:56→17:58)
[2019-03-22] MEDS: TRAMADOL HCL 50 MG TABLET GT SCH ×2 (08:58→17:58)
[2019-03-22] MEDS: ACIDOPHILUS/BULGARICUS 1 EACH TAB.CHEW GT SCH ×2 (08:58→20:40)
[2019-03-22] MEDS: MEROPENEM 500 MG in IV NS 0.9% 50 ML IV SCH ×2 (08:58→19:47)
[2019-03-22] MEDS ORDERED: PANTOPRAZOLE 40 MG/PACK PACK GT SCH (09:00)
[2019-03-22] MEDS: ZINC SULFATE 220 MG CAPSULE GT SCH ×2 (09:18→18:12)
[2019-03-22] MEDS: ESOMEPRAZOLE MAGNESIUM 40 MG SUSPDR.PKT GT SCH (09:32)
[2019-03-22] MEDS ORDERED: NEPRO 1,000 ML BOTTLE GT PRN (10:00)
[2019-03-22] MEDS ORDERED: NOREPINEPHRINE 16 MG in IV D5W 500 ML IV PRN (11:00)
[2019-03-22] MEDS: NOREPINEPHRINE 16 MG in IV D5W 500 ML IV PRN (11:21)
--- NOTE | 2019-03-22 11:49 | NUR ---
CREATIVE ASSISTANT NOTE PATIENT COMPLETED DIALYSIS WITH NO COMPLICATIONS, ONE LITER WAS TAKEN OUT. NOTED.
[2019-03-22] MEDS ORDERED: EPOETIN ALFA (10,000 UNIT) 10,000 UNIT/ML VIAL IV ONE ×2 (12:00→15:00)
[2019-03-22] MEDS: GENTAMICIN 100 MG in IV D5W 50 ML IV PRN (12:35)
--- NOTE | 2019-03-22 17:34 | NUR ---
curriculum coach note s/p right foot wound debridement with no complications. dressing dry and intact. will continue to monitor.
[2019-03-22] MEDS ORDERED: VANCOMYCIN 500 MG in IV D5W 100 ML IV PRN (18:00)
[2019-03-22] MEDS: HYDROGEL DRESSING 90 GM TUBE TP SCH (18:14)
--- NOTE | 2019-03-22 18:22 | NUR ---
PRESETTER OPERATOR NOTE INFORMED DR. GORDON REGARDING POSITIVE MRSA CULTURE WITH ORDER FOR BACTROBAN NA BID FOR 5 DAYS. NOTED AND CARRIED OUT.
--- NOTE | 2019-03-22 19:30 | NUR ---
ENGAGEMENT MGR NOTE RECEIVED PT AWAKE AND ALERT. ABLE TO FOLLOW SOME COMMANDS. ON MECHANICAL VENT WITH SETTINGS WELL TOLERATED. ASPIRATION PRECAUTIONS AND HOB ELEVATED. ISOLATION PRECAUTIONS MAINTAINED. ON LEVO 6MCG/MIN. TELE- SINUS RHYTHM. WILL MONITOR.
--- NOTE | 2019-03-22 19:30 | NUR ---
INDUSTRIAL TRAINER NOTE NO SIGNIFICANT CHANGES OVERNIGHT. ISOLATION PRECAUTION FOR MRSA NARES. NO RESPIRATORY DISTRESS NOTED. TOLERATING VENT SETTINGS. TOLERATING GTF AT 20ML/HR, NO RESIDUAL NOTED ALEX PICC LINE PATENT AND INTACT, LEVO RUNNING AT 6MCG/KG/MIN. HOB ELEVATED. SIDE RAILS UP AND LOCKED. TURNED AND REPOSITIONED Q2 AND PRN. CONTINUITY OF CARE ENDORSED TO PM NURSE.
[2019-03-22] MEDS: MUPIROCIN OINT 2% 22 GM TUBE SCH (20:40)
[2019-03-23] VITALS (72 sets, daily range): BP systolic 98–129; BP diastolic 43–85
[2019-03-23] MEDS: IPRATROPIUM NEB FS 0.5 MG/2.5 ML AMPUL.NEB NEB SCH ×6 (02:48→23:25)
[2019-03-23] MEDS: ALBUTEROL FS 2.5 MG/0.5 ML VIAL.NEB NEB SCH ×6 (02:48→23:25)
[2019-03-23 04:46] LABS: CREATININE 5.4 mg/dL (0.6-1.3); POTASSIUM 3.8 mmol/L (3.5-5.1)
[2019-03-23] MEDS: BLOOD SUGAR DIAGNOSTIC 1 EACH STRIP IN SCH ×4 (06:18→23:33)
--- NOTE | 2019-03-23 07:05 | NUR ---
RN LATE ENTRY NOTE FOR 03/21/19: ADMITTED PATIENT AT [facility] ON 03/21/19 @1630 ROOM 114-1. PATIENT'S WOUNDS WERE UNABLE TO BE MEASURE UPON ADMISSION BECAUSE PATIENT WAS HEMODYNAMICALLY UNSTABLE. PATIENT WAS TRANSFERRED TO ICU ROOM [address] GORDON'S ORDER.
[2019-03-23 07:06] LABS: BASOPHILS # (AUTO) 0.1 /CMM (0.0-0.2); BASOPHILS % (AUTO) 0.5 % (0.0-2.0); EOSINOPHILS % (AUTO) 6.9 % (0.0-6.0); LYMPHOCYTES # (AUTO) 1.7 /CMM (0.8-4.8); LYMPHOCYTES % (AUTO) 9.9 % (20.0-44.0); MEAN CORPUSCULAR HGB CONC 31 g/dl (31.0-36.0); MEAN CORPUSCULAR VOLUME 83 fL (80-96); MONOCYTES # (AUTO) 2.5 /CMM (0.1-1.30); MONOCYTES % (AUTO) 14.3 % (2.0-12.0); NEUTROPHILS # (AUTO) 11.9 /CMM (1.8-8.9); NEUTROPHILS % (AUTO) 68.4 % (43.0-81.0); PLATELET COUNT (AUTO) 360 /CMM (150-450); RED BLOOD CELL COUNT(AUTO) 2.43 MIL/uL (4.5-6.0); WHITE BLOOD COUNT (AUTO) 17.4 K/uL (4.3-11.0)
[2019-03-23 07:09] LABS: HEMATOCRIT 20 % (39-51); HEMOGLOBIN 6.3 g/dL (13.5-17.5)
--- NOTE | 2019-03-23 07:22 | NUR ---
RADIOLOGY TECHNICIAN NOTE PT REMAINED STABLE DURING SHIFT. NO ACUTE DISTRESS NOTED. VENT SETTINGS WELL TOLERATED. ISOLATION PRECAUTIONS OBSERVED. ALL NEEDS ATTENDED TO PROMPTLY. CRITICAL LAB RECEIVED FOR H/H 6.09/13. WILL NOTIFY MD. WILL ENDORSE TO NEXT SHIFT FOR CONTINUITY OF CARE.
--- NOTE | 2019-03-23 07:30 | NUR ---
RN NOTES RECEIVED PATIENT IN BED, ASLEEP BUT EASILY AROUSED BY TACTILE STIMULI, OPENS EYES SPONTANEOUSLY BUT NONVERBAL, ABLE TO TRACK. TRACH AND VENT DEPENDENT, TOLERATING CURRENT VENT SETTINGS, BREATHING UNLABORED. NO INDICATION OF PAIN OR DISCOMFORT NOTED AT THIS TIME. PATIENT SINUS RHYTHM ON THE TELEMONITOR WITH HR ON THE 90'S. HD CATETHER NOTED ON THE R CHEST WALL, DRESSING C/D/I. PICC LINE ON THE ALEX IN PLACE AND INTACT, DRESSING IN PLACE, NO SIGNS OF INFECTION NOTED. WITH ONGOING LEVOPHED AT 6MCG/MIN. GTF OF NEPRO AT 20CC/HR- PENDING DIET CONSULT) GT PLACEMENT CONFIRMED BY ASPIRATING GASTRIC RESIDUAL, NO RESIDUAL TAKEN AT THIS TIME. HOB KEPT ELEVATED. SAFETY MEASURES OBSERVED AND MAINTAINED. CALL LIGHT PLACE WITHIN REACH. WILL CONTINUE TO MONITOR PATIENT AND ANTICIPATE NEEDS
[2019-03-23 07:47] LABS: BAND % (MANUAL) 1 % (0.0-5.0); EOSINOPHILS % (MANUAL) 7 % (0-4); LYMPHOCYTES % (MANUAL) 6 % (16-48); MONOCYTES % (MANUAL) 13 % (0-11.0); NEUTROPHILS % (MANUAL) 73 (42-76)
[2019-03-23] MEDS: ACIDOPHILUS/BULGARICUS 1 EACH TAB.CHEW GT SCH ×2 (08:48→20:19)
[2019-03-23] MEDS: ASCORBIC ACID 500 MG TABLET GT SCH ×2 (08:48→16:27)
[2019-03-23] MEDS: MEROPENEM 500 MG in IV NS 0.9% 50 ML IV SCH ×2 (08:48→20:19)
[2019-03-23] MEDS: ZINC SULFATE 220 MG CAPSULE GT SCH ×2 (08:48→16:27)
[2019-03-23] MEDS: SUCRALFATE 1 G/10 ML UDC GT SCH ×2 (08:48→20:19)
[2019-03-23] MEDS: TRAMADOL HCL 50 MG TABLET GT SCH ×2 (08:49→16:28)
[2019-03-23] MEDS: DOCUSATE SODIUM 100 MG CAPSULE PO SCH ×2 (08:49→16:27)
[2019-03-23] MEDS: MUPIROCIN OINT 2% 22 GM TUBE SCH ×2 (08:49→20:20)
[2019-03-23] MEDS: CHLORHEXIDINE GLUCONATE 15 ML UDC MM SCH ×2 (08:49→16:27)
[2019-03-23] MEDS: DAKINS QUARTER STRENGTH (0.125%) 480 ML BOTTLE TOP SCH ×2 (08:50)
[2019-03-23] MEDS: ESOMEPRAZOLE MAGNESIUM 40 MG SUSPDR.PKT GT SCH (08:50)
[2019-03-23] MEDS: HYDROGEL DRESSING 90 GM TUBE TP SCH (08:51)
[2019-03-23 09:02] LABS: ABG BASE EXCESS 4.5 mmol/L; ABG OXYGEN SATURATION 96.8 % (92.0-98.5); ABG PCO2 38.9 mmHg (35.0-45.0); ABG PH 7.481 (7.350-7.450); ABG PO2 95.4 mmHg (75.0-100.0); AaDO2 145.1 mmHg; COHb 0.5 % (0.5-1.5); MetHb 0.8 % (0.0-1.5); O2Hb 95.5 % (94.0-97.0); SITE, ABG Left Radial; VENT MODE, BG AC 14 550 40% +0
--- NOTE | 2019-03-23 10:30 | NUR ---
WOUND CARE CONSULT WOUND CARE RECEIVED CONSULT FOR MULTIPLE WOUNDS. WOUND CARE WILL DEFER CONSULT AND ALL TREATMENT PLANS TO PLASTIC SURGICAL TEAM INCLUDING DPM. PATIENT WITH LAMONTE AT 8, ALL PRESSURE ULCER PREVENTION MEASURES ARE NOTED TO BE IN PLACE AT THIS TIME. WILL SEE PRN. 1ST STEP LOW AIRLOSS MATTRESS IN PLACE.
--- NOTE | 2019-03-23 11:28 | NUR ---
RN NOTES CALLED SON BUT PHONE NUMBER IS NOT ACTIVE. CALLED MAC MCNEIL (DAUGHTER ) WAS ABLE TO OBTAINED CONSENT FOR BLOOD TRANSFUSION AFTER EXPLAINING THE SITUATION. CONSENT VERIFIED WITH LON MENDIOLA.
--- NOTE | 2019-03-23 13:45 | NUR ---
RN NOTES ENDORSED PATIENT TO LON HARRELL FOR CONTINUITY OF CARE. PATIENT NOT ON ANY FORM OF DISTRESS. BLOOD TRANSFUSION STILL ONGOING. HAND OFF
[2019-03-23] MEDS: NOREPINEPHRINE 16 MG in IV D5W 500 ML IV PRN (14:39)
--- NOTE | 2019-03-23 14:48 | NUR ---
RN NOTES 1400-ASSUMED CARE FROM RN. PATIENT OPENS EYES TO VOICE, FOLLOWS SIMPLE COMMANDS. LEVOPHED ONGOING FOR BP SUPPORT, BLOOD TRANSFUSION ONGOING WELL, NO IMMEDIATE ADVERSE REACTIONS NOTED.
--- NOTE | 2019-03-23 15:51 | NUR ---
rn notes 1535-blood transfusion completed, no immediate adverse reactions noted. patient remains on levophed drip for bp support.continue monitoring.
--- NOTE | 2019-03-23 19:05 | NUR ---
rn notes patient resting on bed.no sign of pain. report given to rn for further care
--- NOTE | 2019-03-23 19:31 | NUR ---
KELP OR SEAGRASS GATHERER OPENING NOTES RECEIVED REPORT FROM SHARRI FORREST. PATIENT A/A/O X1 TO NAME, NON-VERBAL BUT RESPONSIVE TO VERBAL & TACTILE STIMULI. UNABLE TO MAKE NEEDS KNOWN. BREATHING EVEN & UNLABORED W/ TRACH INTACT & TOLERATING VENT SETTINGS AC 14, TV 550, FIO2 40%, PEEP 0. NO S/S OF RESPIRATORY DISTRESS NOTED. ON TELE W/ SINUS RHYTHM, HR 90S. RIGHT UPPER ARM PICC LINE INTACT & PATENT W/ DRESSING CDI & LEVOPHED INFUSING WELL @ 4MCG/MIN FOR BP SUPPORT. RIGHT CHEST WALL HD CATH W/ NO COMPLICATIONS NOTED. G-TUBE PATENT & FLUSHING WELL, GTF NEPRO RUNNING @ 30ML/HR. NO RESIDUAL NOTED @ THIS TIME. NO S/S OF PAIN OR DISCOMFORT @ THIS TIME. SAFETY MEASURES IN PLACE W/ SIDE RAILS UP & BED ALARM ON. HOB ELEVATED FOR ASPIRATION PRECAUTIONS. WILL CONTINUE TO MONITOR CLOSELY.
[2019-03-23] MEDS: PROSOURCE / PROSTAT (PYXIS) 30 ML UDC GT SCH (20:20)
[2019-03-23] MEDS: INSULIN REGULAR, HUMAN 100 UNIT/ML 3 ML VIAL SQ PRN (23:34)
[2019-03-24] VITALS (82 sets, daily range): BP systolic 82–136; BP diastolic 53–89
[2019-03-24] MEDS: ALBUTEROL FS 2.5 MG/0.5 ML VIAL.NEB NEB SCH ×6 (03:34→23:42)
[2019-03-24] MEDS: IPRATROPIUM NEB FS 0.5 MG/2.5 ML AMPUL.NEB NEB SCH ×6 (03:34→23:42)
[2019-03-24 05:17] LABS: BASOPHILS # (AUTO) 0.1 /CMM (0.0-0.2); BASOPHILS % (AUTO) 0.9 % (0.0-2.0); EOSINOPHILS % (AUTO) 9.3 % (0.0-6.0); HEMATOCRIT 23 % (39-51); HEMOGLOBIN 7.5 g/dL (13.5-17.5); LYMPHOCYTES # (AUTO) 1.5 /CMM (0.8-4.8); LYMPHOCYTES % (AUTO) 11.2 % (20.0-44.0); MEAN CORPUSCULAR HGB CONC 32 g/dl (31.0-36.0); MEAN CORPUSCULAR VOLUME 81 fL (80-96); MONOCYTES # (AUTO) 1.9 /CMM (0.1-1.30); MONOCYTES % (AUTO) 14.5 % (2.0-12.0); NEUTROPHILS # (AUTO) 8.6 /CMM (1.8-8.9); NEUTROPHILS % (AUTO) 64.1 % (43.0-81.0); PLATELET COUNT (AUTO) 380 /CMM (150-450); RED BLOOD CELL COUNT(AUTO) 2.86 MIL/uL (4.5-6.0); WHITE BLOOD COUNT (AUTO) 13.4 K/uL (4.3-11.0)
--- NOTE | 2019-03-24 05:30 | NUR ---
SAUSAGE MACHINE OPERATOR NOTES PATIENT'S BP = 136/89, HR 101. DECREASED LEVOPHED FROM 4MCG TO 3MCG/MIN PER TITRATION PROTOCOL.
[2019-03-24] MEDS: PROSOURCE / PROSTAT (PYXIS) 30 ML UDC GT SCH ×3 (05:42→20:48)
[2019-03-24] MEDS: NEPRO 1,000 ML BOTTLE GT PRN (05:42)
[2019-03-24] MEDS: INSULIN REGULAR, HUMAN 100 UNIT/ML 3 ML VIAL SQ PRN ×3 (05:42→17:32)
[2019-03-24] MEDS: BLOOD SUGAR DIAGNOSTIC 1 EACH STRIP IN SCH ×3 (05:42→17:32)
[2019-03-24 05:49] LABS: CALCIUM, SERUM 9.6 mg/dL (8.5-10.1); CREATININE 6.9 mg/dL (0.6-1.3); POTASSIUM 4.5 mmol/L (3.5-5.1)
--- NOTE | 2019-03-24 06:58 | NUR ---
CONVEYOR BELT INSTALLER CLOSING NOTES PATIENT RESTING COMFORTABLY IN BED. PATIENT CARE DONE & ALL DUE MEDS GIVEN. NO SIGNIFICANT CHANGES THROUGHOUT THE NIGHT. STILL ON LEVOPHED DRIP @ 3 MCG/MIN. WILL ENDORSE DENNIS TO AM NURSE.
--- NOTE | 2019-03-24 07:12 | NUR ---
OFFSHORE WIND OPERATIONS MANAGER INITIAL NOTES Rec'd pt on bed, not in any distress, awake. On MV via trach, sating at 100%. SR on telemonitor. Has ALEX PICC line w/ Levophed drip x 3 mcg infusing well. Has GT w/ Nepro x 40 cc/hr infusing well, no high gastric residual upon checking. Has RCW HD cath in place. Safety precaution in place w/ bed in lowest & locked pos. Call light w/in reach but unable to utilize d/t condition - frequent rounding done. Will cont to monitor & attend pt needs.
[2019-03-24] MEDS: MEROPENEM 500 MG in IV NS 0.9% 50 ML IV SCH ×2 (07:49→19:55)
[2019-03-24] MEDS: CHLORHEXIDINE GLUCONATE 15 ML UDC MM SCH ×2 (08:34→16:21)
[2019-03-24] MEDS: ASCORBIC ACID 500 MG TABLET GT SCH ×2 (08:34→16:21)
[2019-03-24] MEDS: ESOMEPRAZOLE MAGNESIUM 40 MG SUSPDR.PKT GT SCH (08:35)
[2019-03-24] MEDS: DAKINS QUARTER STRENGTH (0.125%) 480 ML BOTTLE TOP SCH ×2 (08:35→08:36)
[2019-03-24] MEDS: MUPIROCIN OINT 2% 22 GM TUBE SCH ×2 (08:35→20:48)
[2019-03-24] MEDS: SUCRALFATE 1 G/10 ML UDC GT SCH ×2 (08:35→20:47)
[2019-03-24] MEDS: DOCUSATE SODIUM 100 MG CAPSULE PO SCH ×2 (08:35→16:21)
[2019-03-24] MEDS: ACIDOPHILUS/BULGARICUS 1 EACH TAB.CHEW GT SCH ×2 (08:35→20:47)
[2019-03-24] MEDS: HYDROGEL DRESSING 90 GM TUBE TP SCH (08:36)
[2019-03-24] MEDS: ZINC SULFATE 220 MG CAPSULE GT SCH ×2 (08:37→16:21)
[2019-03-24] MEDS: TRAMADOL HCL 50 MG TABLET GT SCH ×2 (08:37→16:21)
[2019-03-24] MEDS: Z GUARD REMEDY 2 OZ OINT TP PRN (08:37)
--- NOTE | 2019-03-24 08:45 | NUR ---
Pt seen & examined by Dr. Mathew, updated about pt condition.
--- NOTE | 2019-03-24 09:00 | NUR ---
Pt seen & examined by Dr. Crump.
[2019-03-24 11:34] LABS: GENTAMICIN,RANDOM 4.3 ug/ml (4.0-8.0)
[2019-03-24] MEDS: GENTAMICIN 100 MG in IV D5W 50 ML IV PRN (18:37)
--- NOTE | 2019-03-24 18:50 | NUR ---
[place] MARSHAL CLOSING NOTES Pt resting comfortably on bed, not in distress. Tolerated MV settings via trach, sating at 100%. Remains SR on telemonitor. ALEX PICC line kept patent & intact w/ no s/sx of infection/infiltration noted. GT in place tolerating Nepro x 50 cc/hr infusing well, no high gastric residual w/in shift. RCW HD cath kept in place - s/p HD c/o Ahmed w/ no fluids taken. Safety precaution kept in place w/ bed in lowest & locked pos. Call light w/in reach but unable to utilize d/t condition - frequent rounding done. Will endorse to PM RN for DENNIS. 1600 Called pharmacy, spoke w/ Sendy re: Gentamin level, post HD today. Per pharmacist, okay to give IV Abx.
--- NOTE | 2019-03-24 19:15 | NUR ---
WINE CONSULTANT NOTE PATIENT IN BED AWAKE AND ORIENTED X1. PATIENT ABLE TO TRACK WITH EYES AND FOLLOWS COMMANDS. ASKED PATIENT TO RAISE HIS RIGHT HAND IF HE IS IN PAIN. PATIENT ABLE TO RAISE HAND. PATIENT BREATHING EVEN AND UNLABORED NO S/S OF RESP DISTRESS. PATIENT REPOSITIONED. IV SITES PATENT AND INTACT NO S/S OF INFECTION OR INFILTRATION. CALL LIGHT WITHIN REACH. SAFETY PRECAUTIONS IN PLACE. PATIENT SR ON THE MACHINE. BED IN LOWEST LOCKED POSITION RN WILL CONTINUE TO MONITOR.
[2019-03-24] MEDS: ACETAMINOPHEN 325 MG TABLET PO PRN (20:47)
[2019-03-25] VITALS (35 sets, daily range): BP systolic 92–132; BP diastolic 50–104
--- NOTE | 2019-03-25 | NUR ---
WELT STITCH CLEANER NOTEE PATIENT REMAINS STABLE OFF THE LEVO RN WILL CONTINUE TO MONITOR.
[2019-03-25] MEDS: BLOOD SUGAR DIAGNOSTIC 1 EACH STRIP IN SCH ×4 (00:24→17:40)
[2019-03-25] MEDS: ALBUTEROL FS 2.5 MG/0.5 ML VIAL.NEB NEB SCH ×6 (02:47→22:53)
[2019-03-25] MEDS: IPRATROPIUM NEB FS 0.5 MG/2.5 ML AMPUL.NEB NEB SCH ×6 (02:47→22:53)
--- NOTE | 2019-03-25 04:00 | NUR ---
PER ASSESSMENT NURSE NOTE PATIENT GIVEN BED BATH AND COMPLETE LINEN CHANGE DONE.
[2019-03-25] MEDS: PROSOURCE / PROSTAT (PYXIS) 30 ML UDC GT SCH ×3 (05:01→21:52)
[2019-03-25 05:34] LABS: BASOPHILS # (AUTO) 0.1 /CMM (0.0-0.2); BASOPHILS % (AUTO) 1.2 % (0.0-2.0); EOSINOPHILS % (AUTO) 11.8 % (0.0-6.0); HEMATOCRIT 23 % (39-51); HEMOGLOBIN 7.4 g/dL (13.5-17.5); LYMPHOCYTES # (AUTO) 1.1 /CMM (0.8-4.8); MEAN CORPUSCULAR HGB CONC 33 g/dl (31.0-36.0); MEAN CORPUSCULAR VOLUME 83 fL (80-96); MONOCYTES # (AUTO) 1.5 /CMM (0.1-1.30); MONOCYTES % (AUTO) 16.1 % (2.0-12.0); NEUTROPHILS # (AUTO) 5.5 /CMM (1.8-8.9); NEUTROPHILS % (AUTO) 58.9 % (43.0-81.0); PLATELET COUNT (AUTO) 339 /CMM (150-450); RED BLOOD CELL COUNT(AUTO) 2.74 MIL/uL (4.5-6.0); WHITE BLOOD COUNT (AUTO) 9.4 K/uL (4.3-11.0)
[2019-03-25 05:44] LABS: CALCIUM, SERUM 9.2 mg/dL (8.5-10.1); POTASSIUM 3.9 mmol/L (3.5-5.1)
[2019-03-25] MEDS: NEPRO 1,000 ML BOTTLE GT PRN (06:17)
[2019-03-25] MEDS: MEROPENEM 500 MG in IV NS 0.9% 50 ML IV SCH ×2 (07:00→20:16)
--- NOTE | 2019-03-25 07:15 | NUR ---
AOC AADC OPERATIONS STAFF OFFICER INITIAL NOTES Rec'd pt on bed, not in any distress, awake. On MV via trach, sating at 100%. SR on telemonitor. Has ALEX PICC line patent & intact w/ no s/sx of infection/infiltration noted. Has GT w/ Nepro x 50 cc/hr infusing well, no high gastric residual upon checking. Has RCW HD cath in place. Safety precaution in place w/ bed in lowest & locked pos. Call light w/in reach but unable to utilize d/t condition - will do frequent rounding. Will cont to monitor & attend pt needs.
--- NOTE | 2019-03-25 08:29 | NUR ---
Pt seen & examined by Dr. Zuñiga, updated about pt status. Per MD may downgrade pt to either [facility] or Tele.
[2019-03-25] MEDS: ESOMEPRAZOLE MAGNESIUM 40 MG SUSPDR.PKT GT SCH (08:33)
[2019-03-25] MEDS: DOCUSATE SODIUM 100 MG CAPSULE PO SCH ×2 (08:33→17:14)
[2019-03-25] MEDS: SUCRALFATE 1 G/10 ML UDC GT SCH ×2 (08:33→20:51)
[2019-03-25] MEDS: CHLORHEXIDINE GLUCONATE 15 ML UDC MM SCH ×2 (08:33→17:14)
[2019-03-25] MEDS: TRAMADOL HCL 50 MG TABLET GT SCH ×2 (08:33→17:14)
[2019-03-25] MEDS: ACIDOPHILUS/BULGARICUS 1 EACH TAB.CHEW GT SCH ×2 (08:33→20:52)
[2019-03-25] MEDS: ZINC SULFATE 220 MG CAPSULE GT SCH ×2 (08:33→17:14)
[2019-03-25] MEDS: DAKINS QUARTER STRENGTH (0.125%) 480 ML BOTTLE TOP SCH ×2 (08:34)
[2019-03-25] MEDS: MUPIROCIN OINT 2% 22 GM TUBE SCH ×2 (08:34→20:53)
[2019-03-25] MEDS: HYDROGEL DRESSING 90 GM TUBE TP SCH (08:34)
[2019-03-25] MEDS: ASCORBIC ACID 500 MG TABLET GT SCH ×2 (08:34→17:14)
[2019-03-25] MEDS: Z GUARD REMEDY 2 OZ OINT TP PRN (08:35)
[2019-03-25] MEDS: INSULIN REGULAR, HUMAN 100 UNIT/ML 3 ML VIAL SQ PRN (12:12)
--- NOTE | 2019-03-25 13:30 | NUR ---
CONFIGURATION TECHNICIAN RECEIVED PATIENT ABLE TO OPEN EYES TO NAME AND FOLLOW COMMAND. TRACH/VENT, NO RESPIRATORY DISTRESS NOTED, TOLERATING SETTINGS WELL. TELE MONITOR ATTACHED, SINUS TACHY HR 101. GTF RUNNING@50mL/HR. NO S/S BLEEDING NOTED, NO RESIDUAL ASPIRATED. ALEX PICC LINE C/D/I, PATENT. RCW HD CATH. VSS, SEE DOCUMENTATION. PATIENT UNABLE TO MAKE NEEDS KNOWN. WILL CONT TO MONITOR
--- NOTE | 2019-03-25 13:45 | NUR ---
ICU TRANSFER NOTES: Pt transferred to Tele as ordered. Transferred via bed via ACLS protocol. Pt not in any distress. VS stable. Tolerating MV setting via trach, no SOB. Secretions suctioned prior to transfer. GT kept patent & intact, tolerating GTF well w/ no high gastric residuals. Bed bath & wound care done. All belongings sent w/ pt including IP meds. Safety precaution observed during transfer. No concerns/issues identified. Report given to Lorie FORREST for DENNIS.
--- NOTE | 2019-03-25 19:40 | NUR ---
BUCKET PUSHER OPENING NOTES, RECEIVED PATIENT SLEEPING, ABLE TO OPEN EYES TO NAME AND FOLLOW COMMAND. TRACH/VENT, NO RESPIRATORY DISTRESS NOTED, TOLERATING SETTINGS WELL. TELE MONITOR ATTACHED, SINUS TACHY HR 93. GTF RUNNING@50mL/HR. NO S/S BLEEDING NOTED, NO RESIDUAL ASPIRATED. ALEX PICC LINE C/D/I, PATENT. PATIENT UNABLE TO MAKE NEEDS KNOWN. BE LOW/ LOCKED. HOB ELEVATED. WILL CONT TO MONITOR
[2019-03-26 00:07] VITALS: BP 124/84
[2019-03-26] MEDS: BLOOD SUGAR DIAGNOSTIC 1 EACH STRIP IN SCH ×3 (01:41→11:52)
[2019-03-26] MEDS: NEPRO 1,000 ML BOTTLE GT PRN (01:42)
[2019-03-26 04:00] VITALS: BP 129/88
[2019-03-26] MEDS: ALBUTEROL FS 2.5 MG/0.5 ML VIAL.NEB NEB SCH ×4 (04:06→15:08)
[2019-03-26] MEDS: IPRATROPIUM NEB FS 0.5 MG/2.5 ML AMPUL.NEB NEB SCH ×4 (04:07→15:08)
[2019-03-26] MEDS: PROSOURCE / PROSTAT (PYXIS) 30 ML UDC GT SCH ×2 (05:32→12:55)
--- NOTE | 2019-03-26 07:14 | NUR ---
PAPER BAG MAKING MACHINIST CLOSING NOTES, PATIENT SLEEPING, ABLE TO OPEN EYES TO NAME AND FOLLOW COMMAND. TRACH/VENT, NO RESPIRATORY DISTRESS NOTED, TOLERATING SETTINGS WELL. TELE MONITOR ATTACHED, SINUS TACHY HR 93. GTF RUNNING@50mL/HR. NO S/S BLEEDING NOTED, NO RESIDUAL ASPIRATED. ALEX PICC LINE C/D/I, PATENT. PATIENT UNABLE TO MAKE NEEDS KNOWN. BED LOW/ LOCKED. HOB ELEVATED. WILL ENDORSE TO AM RN FOR DENNIS.
--- NOTE | 2019-03-26 07:41 | NUR ---
RN OPENING NOTES RECEIVED PATIENT AWAKE AND RESTING IN BED, TRACES WITH EYES. HE IS AOX0, NONVERBAL, AND BEDBOUND. HE IS ON A VENTILATORY, TOLERATING SETTINGS WELL. MODERATE AMOUNTS OF SPUTUM WAS SUCTIONED. HE DOES NOT SHOW ANY S/SX OF DISTRESS OR PAIN. HE HAS EDEMA ON UPPER EXTREMITIES. HE IS RECEIVING NEPRO AT 50 ML/HR, TOLERATING WELL, NO RESIDUAL NOTED. HE HAS A ALEX PICC LINE, PATENT, AND A R CHEST WALL HD CATH (TO BE DIALYZED TODAY) HE HAS MULTIPLE PRESSURE INJURIES, WILL PROVIDE WOUND CARE ORDERED. SAFETY MEASURES HAVE BEEN IMPLEMENTED, CALL LIGHT IS WITHIN REACH, BED IS IN LOWEST AND LOCKED POSITION, SIDE RIALS UP X2, WILL CONTINUE TO MONITOR FOR ANY CHANGES.
[2019-03-26 07:56] LABS: CREATININE 7.2 mg/dL (0.6-1.3); POTASSIUM 4.3 mmol/L (3.5-5.1)
[2019-03-26 08:00] VITALS: BP 123/82
[2019-03-26] MEDS: DOCUSATE SODIUM 100 MG CAPSULE PO SCH (08:04)
[2019-03-26] MEDS: MEROPENEM 500 MG in IV NS 0.9% 50 ML IV SCH (08:04)
[2019-03-26] MEDS: TRAMADOL HCL 50 MG TABLET GT SCH (08:04)
[2019-03-26] MEDS: CHLORHEXIDINE GLUCONATE 15 ML UDC MM SCH (08:04)
[2019-03-26] MEDS: ZINC SULFATE 220 MG CAPSULE GT SCH (08:04)
[2019-03-26] MEDS: ASCORBIC ACID 500 MG TABLET GT SCH (08:04)
[2019-03-26] MEDS: SUCRALFATE 1 G/10 ML UDC GT SCH (08:05)
[2019-03-26] MEDS: ACIDOPHILUS/BULGARICUS 1 EACH TAB.CHEW GT SCH (08:05)
[2019-03-26 08:28] LABS: BASOPHILS # (AUTO) 0.1 /CMM (0.0-0.2); EOSINOPHILS % (AUTO) 9.3 % (0.0-6.0); HEMATOCRIT 27 % (39-51); HEMOGLOBIN 8.5 g/dL (13.5-17.5); LYMPHOCYTES # (AUTO) 1.4 /CMM (0.8-4.8); LYMPHOCYTES % (AUTO) 13.1 % (20.0-44.0); MEAN CORPUSCULAR HGB CONC 32 g/dl (31.0-36.0); MEAN CORPUSCULAR VOLUME 84 fL (80-96); MONOCYTES # (AUTO) 1.3 /CMM (0.1-1.30); MONOCYTES % (AUTO) 12.2 % (2.0-12.0); NEUTROPHILS % (AUTO) 64.4 % (43.0-81.0); PLATELET COUNT (AUTO) 408 /CMM (150-450); RED BLOOD CELL COUNT(AUTO) 3.21 MIL/uL (4.5-6.0); WHITE BLOOD COUNT (AUTO) 10.8 K/uL (4.3-11.0)
[2019-03-26] MEDS: DAKINS QUARTER STRENGTH (0.125%) 480 ML BOTTLE TOP SCH ×2 (09:00→13:54)
[2019-03-26] MEDS: ESOMEPRAZOLE MAGNESIUM 40 MG SUSPDR.PKT GT SCH (09:53)
--- NOTE | 2019-03-26 10:59 | NUR ---
PT HAS BEEN DILAYZED, 1,200 ML OF FLUID WAS REMOVED. PT IS STABLE. SPOKE WITH PHARMACY REGARDING VANCOMYCIN AND GENTAMICIN POST HD, WAS TOLD TO NOT ADMIN VANCO BECAUSE TROUGH WAS TOO HIGH. WILL F/U ABOUT THE GENTAMICIN.
--- NOTE | 2019-03-26 11:33 | NUR ---
GENTAMICIN TROUGH AND RANDOM VANCOMYCIN RESULTS CAME BACK. SPOKE WITH PHARMACY AND BOTH MEDS ARE BEING HELD, WILL CONTINUE TO MONITOR
[2019-03-26 12:00] VITALS: BP 120/80
[2019-03-26] MEDS ORDERED: MERO500V21 IV (12:43)
[2019-03-26] MEDS ORDERED: RXVAN XX (12:43)
[2019-03-26] MEDS ORDERED: RXGEN XX (12:43)
[2019-03-26] MEDS: HYDROGEL DRESSING 90 GM TUBE TP SCH (13:54)
[2019-03-26] MEDS: MUPIROCIN OINT 2% 22 GM TUBE SCH (13:54)
--- NOTE | 2019-03-26 16:31 | NUR ---
PATIENT HAS BEEN DISCHARGED. HE LEFT THE UNIT VIA GURNEY WITH TERMITE TREATER HELPER AND RT FOR VENT SUPPORT. PT DRESSINGS WERE CHANGED PRIOR TO HIS DEPARTURE. TUBE FEEDING WAS HELD TO PREVENT ASPIRATION. EXIT CARE INSTRUCTIONS WERE PROVIDED TO THE melter supervisor electric arc furnace BECAUSE PT IS UNABLE TO COMPREHEND. PICC LINE WAS NOT REMOVED. NO PERIPHERAL IV SITES. PICTURES OF THE WOUNDS WERE TAKEN PRIOR TO DC. LAST SET OF VITALS WERE STABLE
--- NOTE | 2019-03-26 16:33 | NUR ---
TRANSFER REPORT GIVEN TO SAAD
[2019-05-01] MEDS ORDERED: IPRA0.2S9 NEB (07:52)
[2019-05-01] MEDS ORDERED: Hydrogel Dressing TP (07:52)
[2019-05-01] MEDS ORDERED: AMIK250V13 IJ (07:52)
[2019-05-01] MEDS ORDERED: SODI473S8 TOP (07:52)
[2019-05-01] MEDS ORDERED: Silver Sulfadiazine Cream TP (07:52)
[2019-05-01] MEDS ORDERED: SULF10VI2 IV (07:52)
[2019-05-01] MEDS ORDERED: ALLA266C2 TP (07:52)
== END 2019-03-26 16:20 | DRG 711 ==
LOC: ER 11:34 → TELE1 14:43 → ICU 17:23 → TELE1 03-25 13:25
PROVIDERS: ADMIT Internal Medicine; ATTEND Internal Medicine
PROC: B548ZZA Ultrasonography of Superior Vena Cava, Guidance (ICD-10-PCS; 2019-03-21)
PROC: 5A1955Z Respiratory Ventilation, Greater than 96 Consecutive Hours (ICD-10-PCS; 2019-03-21)
PROC: 02HV33Z Insertion of Infusion Device into Superior Vena Cava, Percutaneous Approach (ICD-10-PCS; 2019-03-21)
PROC: 0JBQ0ZZ Excision of Right Foot Subcutaneous Tissue and Fascia, Open Approach (ICD-10-PCS; principal; 2019-03-22)
PROC: 5A1D70Z Performance of Urinary Filtration, Intermittent, Less than 6 Hours Per Day (ICD-10-PCS; principal; 2019-03-22)
PROC: 0JB90ZZ Excision of Buttock Subcutaneous Tissue and Fascia, Open Approach (ICD-10-PCS; 2019-03-23)
PROC: 30233N1 Transfusion of Nonautologous Red Blood Cells into Peripheral Vein, Percutaneous Approach (ICD-10-PCS; 2019-03-23)
PROC: 0QB10ZZ Excision of Sacrum, Open Approach (ICD-10-PCS; 2019-03-23)
DX: T80.211A Bloodstream infection due to central venous catheter, initial encounter (principal); R65.21 Severe sepsis with septic shock; J96.21 Acute and chronic respiratory failure with hypoxia; E43 Unspecified severe protein-calorie malnutrition; G93.40 Encephalopathy, unspecified; Z99.11 Dependence on respirator [ventilator] status; A41.9 Sepsis, unspecified organism; L89.154 Pressure ulcer of sacral region, stage 4; R40.3 Persistent vegetative state; L89.893 Pressure ulcer of other site, stage 3; Y84.8 Other medical procedures as the cause of abnormal reaction of the patient, or of later complication, without mention of misadventure at the time of the procedure; D68.59 Other primary thrombophilia; L89.323 Pressure ulcer of left buttock, stage 3; L89.894 Pressure ulcer of other site, stage 4; E11.22 Type 2 diabetes mellitus with diabetic chronic kidney disease; R53.2 Functional quadriplegia; N39.0 Urinary tract infection, site not specified; N18.6 End stage renal disease; E11.621 Type 2 diabetes mellitus with foot ulcer; I12.0 Hypertensive chronic kidney disease with stage 5 chronic kidney disease or end stage renal disease; D63.8 Anemia in other chronic diseases classified elsewhere; E87.2 Acidosis; M24.562 Contracture, left knee; M24.561 Contracture, right knee; Z87.440 Personal history of urinary (tract) infections; Z86.73 Personal history of transient ischemic attack (TIA), and cerebral infarction without residual deficits; Z93.1 Gastrostomy status; Z93.0 Tracheostomy status; Z99.2 Dependence on renal dialysis; E11.69 Type 2 diabetes mellitus with other specified complication; M86.8X7 Other osteomyelitis, ankle and foot; E88.09 Other disorders of plasma-protein metabolism, not elsewhere classified; Z68.28 Body mass index [BMI] 28.0-28.9, adult; S90.821A Blister (nonthermal), right foot, initial encounter; X58.XXXA Exposure to other specified factors, initial encounter; Y93.9 Activity, unspecified; Y92.129 Unspecified place in nursing home as the place of occurrence of the external cause; E83.9 Disorder of mineral metabolism, unspecified; K21.9 Gastro-esophageal reflux disease without esophagitis; R13.10 Dysphagia, unspecified; Z79.4 Long term (current) use of insulin; Z86.19 Personal history of other infectious and parasitic diseases; N40.1 Benign prostatic hyperplasia with lower urinary tract symptoms
CPT/HCPCS: 31720; 36415; 36569; 36600; 71045-TC; 73630-TC; 80048-TC; 80076-TC; 80170-TC; 80202-TC; 81000-TC; 82803-TC; 82962-TC; 83605-TC; 83735-TC; 84100-TC; 84484-TC; 85025-TC; 85730-TC; 86706; 86850-TC; 86921-TC; 87040-TC; 87070-TC; 87081-TC; 87086-TC; 87186-TC; 87340; 90935-TC; 94002-TC; 94003-TC; 94760-TC; 94762-TC; 99082-TC; A4216; A4623; A6248; A6253; A6403; C1751; G0378; J0885; J1580; J1815; J2185; J2543; J3370; J7030; J7050; J7060; P9016-BL

== ENCOUNTER 2019-04-03 12:08 | Inpatient (IN) | payer MEDICAID ==
[2019-04-03] VITALS (17 sets, daily range): BP systolic 76–128; BP diastolic 45–81
[~2019-04-03] VITALS: Ht 167.6 cm; Wt 89.4 kg
[~2019-04-03 12:08] MED LIST changes: -ACET-868 PO; +ASCO500T9 GT; +MERO500V21 IV; -METR500T PO; +RXGEN XX; +ZINC220C8 GT
--- NOTE | 2019-04-03 12:15 | NUR ---
"LATOYA MARTINEZ [facility] FOR ELEVATED TEMPERATURE." PT VENT TRACHE DEPENDENT, PT [id number], PT ON MONITOR, PT TO BED 5, PENDING MD COPE
[2019-04-03] MEDS ORDERED: ACETAMINOPHEN 650 MG/SUPP.RECT RC ONE (12:30)
[2019-04-03] MEDS ORDERED: IV NS 0.9% 1,000 ML BAG IV ONE (12:30)
--- NOTE | 2019-04-03 12:32 | NUR ---
EPIC ON-CALL PAGED AGAIN
[2019-04-03] MEDS ORDERED: NA P133E RC (12:40)
[2019-04-03] MEDS ORDERED: VIT1TABL46 PO (12:40)
[2019-04-03] MEDS ORDERED: PROT946L GT (12:40)
[2019-04-03] MEDS ORDERED: VANC1PLA9 IV (12:40)
[2019-04-03] MEDS ORDERED: ARGI1POW13 PO (12:40)
[2019-04-03] MEDS ORDERED: ACET-73 PO (12:40)
[2019-04-03 12:45] LABS: BASOPHILS # (AUTO) 0.2 /CMM (0.0-0.2); BASOPHILS % (AUTO) 0.8 % (0.0-2.0); HEMATOCRIT 26 % (39-51); HEMOGLOBIN 7.9 g/dL (13.5-17.5); LYMPHOCYTES # (AUTO) 1.7 /CMM (0.8-4.8); LYMPHOCYTES % (AUTO) 7.5 % (20.0-44.0); MEAN CORPUSCULAR HGB CONC 31 g/dl (31.0-36.0); MEAN CORPUSCULAR VOLUME 82 fL (80-96); MONOCYTES # (AUTO) 3.3 /CMM (0.1-1.30); MONOCYTES % (AUTO) 14.4 % (2.0-12.0); NEUTROPHILS # (AUTO) 17.4 /CMM (1.8-8.9); NEUTROPHILS % (AUTO) 75.3 % (43.0-81.0); PLATELET COUNT (AUTO) 520 /CMM (150-450); RED BLOOD CELL COUNT(AUTO) 3.14 MIL/uL (4.5-6.0); WHITE BLOOD COUNT (AUTO) 23.1 K/uL (4.3-11.0)
[2019-04-03 12:55] LABS: CALCIUM, SERUM 9.8 mg/dL (8.5-10.1); POTASSIUM 3.9 mmol/L (3.5-5.1)
--- NOTE | 2019-04-03 13:01 | NUR ---
PAGED DR. ALICEA.
[2019-04-03 13:08] LABS: ALBUMIN 2.2 g/dL (3.4-5.0); BILIRUBIN,DIRECT 0.2 mg/dL (0.0-0.2); BILIRUBIN,TOTAL 0.6 mg/dL (0.2-1.0); TOTAL PROTEIN, SERUM 7.8 g/dL (6.4-8.2)
--- NOTE | 2019-04-03 13:11 | NUR ---
room 258
[2019-04-03 13:22] LABS: APPEARANCE,URINE Clear (CLEAR); BILIRUBIN,URINE SMALL (NEGATIVE); BLOOD, URINE Negative Ery/uL (NEGATIVE); COLOR,URINE Amber (YELLOW); KETONES,URINE Negative (NEGATIVE); LEUKOCYTE ESTERASE ,URINE Negative (NEGATIVE); NITRITE, URINE Negative (NEGATIVE); PH,URINE 7.5 (5.0-8.0); PROTEIN,URINE >=300 mg/dl (NEGATIVE); UGLUCOSE Negative (NEGATIVE); UROBILINOGEN,URINE 0.2 EU/dL (0.2)
[2019-04-03] MEDS ORDERED: VANCOMYCIN 1 GM in IV D5W 250 ML IV ONE (13:30)
[2019-04-03] MEDS ORDERED: PIPERACILLIN /TAZOBACTAM 3.375 G in IV D5W 50 ML IV ONE (13:30)
--- NOTE | 2019-04-03 13:55 | NUR ---
REPORT GIVEN TO CHARLIE FORREST FOR DENNIS PT [facility] BE [facility]
--- NOTE | 2019-04-03 14:25 | NUR ---
ICU/RN ADMITTING NOTES: PT TRANSFERRED TO 258 FROM ER VIA GURNEY. PT TRACH TO VENT WITH SETTINGS ORDERED BY MD. PORTEX #8 AC 14, TV 550, 40%, PEEP 5, TOLERATING WELL, NO DISTRESS NOTED. SINUS RHYTHM ON TELE/SINUS TACH. GTUBE IN PLACE, WILL START TUBE FEEDING PER MD ORDERS. RIGHT UPPER ARM PICC LINE, INTACT, ONE PORT NOT WORKING, RIGHT CHEST WALL PHONG CATH. PT ANURIC. ALL NEEDS WILL BE ATTENDED TO, SAFETY MEASURES TAKEN, BED IN LOW POSITION, SIDE RAILS UP, CALL LIGHT WITHIN REACH.
[2019-04-03] MEDS ORDERED: MAG HYDROX/AL HYDROX/SIMETH 30 ML UDC PO PRN (15:00)
[2019-04-03] MEDS ORDERED: NEPRO VAN 237 ML CAN GT SCH (15:00)
[2019-04-03] MEDS ORDERED: INSULIN REGULAR, HUMAN 100 UNIT/ML 3 ML VIAL SQ PRN (15:00)
[2019-04-03] MEDS ORDERED: ZOLPIDEM TARTRATE 5 MG TABLET PO PRN (15:00)
[2019-04-03] MEDS ORDERED: BISACODYL SUPP (10 MG) 10 MG/SUPP.RECT SUPP.RECT RC PRN (15:00)
[2019-04-03] MEDS ORDERED: NA PHOS,M-B/NA PHOS,DI-BA 1 EA ENEMA RC PRN ×2 (15:00)
[2019-04-03] MEDS ORDERED: MAGNESIUM HYDROXIDE 30 ML UDC PO PRN (15:00)
[2019-04-03] MEDS ORDERED: FEE PK DOSING 1 MIN EA MC ONE (15:20)
[2019-04-03] MEDS ORDERED: IPRATROPIUM NEB FS 0.5 MG/2.5 ML AMPUL.NEB NEB PRN (15:30)
[2019-04-03] MEDS: CHLORHEXIDINE GLUCONATE 15 ML UDC MM SCH ×2 (16:19→17:03)
[2019-04-03] MEDS: ZINC SULFATE 220 MG CAPSULE GT SCH (16:20)
[2019-04-03] MEDS: CEFEPIME 1 GM in IV D5W 50 ML IV SCH (16:20)
[2019-04-03] MEDS: TRAMADOL HCL 50 MG TABLET GT SCH (16:20)
[2019-04-03] MEDS: ASCORBIC ACID 500 MG TABLET GT SCH (16:20)
[2019-04-03] MEDS: DOCUSATE SODIUM 100 MG CAPSULE PO SCH (16:20)
--- NOTE | 2019-04-03 17:10 | NUR ---
ICU/RN: HEMODIALYSIS STARTED. VSS. WILL CONTINUE TO MONITOR AND ASSESS.
[2019-04-03] MEDS: ATENOLOL 25 MG TABLET GT SCH (17:32)
[2019-04-03] MEDS: BLOOD SUGAR DIAGNOSTIC 1 EACH STRIP IN SCH (17:33)
[2019-04-03] MEDS: ALBUMIN 25% 25 GM in PREMIX 1 EA IV PRN (18:04)
--- NOTE | 2019-04-03 18:34 | NUR ---
RT END OF THE SHIFT REPORT, PT. REC IN ER@1215 59 Y OLD MALE NON RESPONSIVE TRACH'D PORTEX # 8 PLACED ON VENT WITH NOTED ( AC 14, 550, 40% +5 )SETTINGS. PER TRANSPORT TEAM EQUAL CHEST RISE NOTED B/S BILATERALLY RALES SUX'D FOR MOD. AMT OF YELLOW THICK SECRETIONS, NO CHANGES NOR DISTRESS NOTED T/O DAY. TRANSFERRED TO ICU ROOM 258 HME, ROSA [place] CHANGED DELIVERY LEAD DONE. TRACH CARE DONE. PT. VENT PLUGGED INTO RED OUT LET. AMBU BAG/EXTRA TRACH AT BEDSIDE. WILL CONTINUE TO MONITOR. REPORT WILL PASS TO PM SHIFT. Addendum: 04/03/19 at 1837 by SHIRLEY REID RT Amended: Links added.
--- NOTE | 2019-04-03 19:08 | NUR ---
ICU/RN ENDING NOTES,AM REPORT ENDORSED TO NIGHT NURSE. HEMODIALYSIS ONGOING. VSS, ALL NEEDS ATTENDED TO, SAFETY MEASURES TAKEN. PT TRACH TO VENT, WITH SETTINGS ORDERED, NO DISTRESS. BED IN LOW POSITION, SIDE RAILS UP, CALL LIGHT WITHIN REACH, DENNIS.
--- NOTE | 2019-04-03 19:15 | NUR ---
RN OPENING NOTES, RECEIVED PATIENT IN BED, HEMODIALYSIS IN PROGRESS. VSS, PATIENT IS ON MECHANICAL VENT, WITH SETTINGS ORDERED, NO DISTRESS NOTED AT THIS TIME. BED IN LOW/LOCKED POSITION, SIDE RAILS UP, CALL LIGHT WITHIN REACH, WILL CONTINUE TO MONITOR.
[2019-04-03] MEDS ORDERED: ALBUTEROL FS 2.5 MG/0.5 ML VIAL.NEB NEB PRN (19:30)
--- NOTE | 2019-04-03 19:30 | NUR ---
RN NOTE, HEMODIALYSIS COMPLETED AT 1920. ULTRAFILTRATION ONLY. VSS. NO DISTRESS NOTED. WILL CONTINUE TO MONITOR.
[2019-04-03] MEDS: ACETAMINOPHEN 325 MG TABLET PO PRN (20:42)
--- NOTE | 2019-04-03 20:45 | NUR ---
RN NOTE, PATIENTS TEMP IS 103.2. PRN TYLENOL ADMINISTERED AND COOLING BLANKET APPLIED, VS WNL. WILL CONTINUE TO MONITOR.
[2019-04-03] MEDS: SUCRALFATE 1 G/10 ML UDC GT SCH (21:26)
--- NOTE | 2019-04-03 22:40 | NUR ---
RN NOTES, 2240 CALL PLACED TO [facility] REGARDING PATIENTS LOW BP, 76/47, ELISA MIGUEL DNP, WILL CALL BACK
--- NOTE | 2019-04-03 22:45 | NUR ---
RN NOTE, PATIENT WAS LEFT IN SUPINE POSITION DUE TO LOW BP
[2019-04-03] MEDS ORDERED: NOREPINEPHRINE 4 MG/4 ML AMPUL IV ONE (22:46)
[2019-04-03] MEDS ORDERED: IV NS 0.9% 500 ML BAG IV ONE (23:00)
--- NOTE | 2019-04-03 23:00 | NUR ---
RN NOTES, LOW BP, LEVO INCREASED BY 1-2 MCG/MIN EVERY 15 MIN UNTIL MIDNIGHT, SEE VS SHEET.
--- NOTE | 2019-04-03 23:00 | NUR ---
RN NOTE, ORDERS GIVEN BY ELISA MIGUEL AND CARRIED ON. NS 500 ML GIVEN BOLUS AT 250ML/HR. LEVOPHED DOUBLE STRENGTH STARTED 2 MCG/MIN. WILL CONTINUE TO MONITOR
[2019-04-03] MEDS: NOREPINEPHRINE 16 MG in IV D5W 500 ML IV PRN (23:03)
[2019-04-04] VITALS (77 sets, daily range): BP systolic 76–174; BP diastolic 49–108
--- NOTE | 2019-04-04 00:25 | NUR ---
RN NOTES, BS 56, CALLED ELISA MIGUEL DNP, D 50% 1 AMP GIVEN ORDERED. WILL CONTINUE TO MONITOR.
[2019-04-04] MEDS: BLOOD SUGAR DIAGNOSTIC 1 EACH STRIP IN SCH ×4 (00:30→18:12)
[2019-04-04] MEDS ORDERED: DEXTROSE 50%-WATER 50 ML DISP.SYRIN ONE (00:33)
[2019-04-04] MEDS ORDERED: DEXTROSE 50%-WATER 50 ML DISP.SYRIN IVP ONE (01:00)
--- NOTE | 2019-04-04 01:05 | NUR ---
RN NOTE, PATENT'S BS 104 AT 0105. WILL CONTINUE TO MONITOR.
--- NOTE | 2019-04-04 01:21 | NUR ---
RN NOTE, PATIENTS TEMP IS 102.2 PATIENT IS ON COOLING MEASURE INITIATED, WILL CONTINUE TO MONITOR.
[2019-04-04] MEDS: ACETAMINOPHEN 325 MG TABLET PO PRN ×2 (02:43→08:57)
--- NOTE | 2019-04-04 03:35 | NUR ---
RN NOTES, BP IS LOW AGAIN, LEVO INCREASED BY 1 MCG/MIN AT 0300 AND INCREASED BY 2 MCG/MIN AT 0330. WILL CONTINUE TO MONITOR. SEE VS SHEET.
--- NOTE | 2019-04-04 04:33 | NUR ---
RN NOTES, BP IS LOW 76/54, LEVO INCREASED BY 2 MCG/MIN AT 0430. WILL CONTINUE TO MONITOR. SEE VS SHEET.
--- NOTE | 2019-04-04 04:45 | NUR ---
RN NOTES, BP IS LOW, LEVO INCREASED BY 2 MCG/MIN AT 0445. SEE VS SHEET. WILL CONTINUE TO MONITOR. .
[2019-04-04 05:10] LABS: CALCIUM, SERUM 8.9 mg/dL (8.5-10.1); MAGNESIUM 2.1 mg/dL (1.8-2.4); PHOSPHORUS 3.2 mg/dL (2.5-4.9); POTASSIUM 4.2 mmol/L (3.5-5.1)
[2019-04-04 06:36] LABS: BASOPHILS # (AUTO) 0.2 /CMM (0.0-0.2); BASOPHILS % (AUTO) 0.7 % (0.0-2.0); EOSINOPHILS % (AUTO) 0.4 % (0.0-6.0); HEMATOCRIT 22 % (39-51); MEAN CORPUSCULAR HGB CONC 31 g/dl (31.0-36.0); MEAN CORPUSCULAR VOLUME 81 fL (80-96); MONOCYTES # (AUTO) 3.3 /CMM (0.1-1.30); MONOCYTES % (AUTO) 13.5 % (2.0-12.0); NEUTROPHILS # (AUTO) 19.8 /CMM (1.8-8.9); NEUTROPHILS % (AUTO) 81.4 % (43.0-81.0); PLATELET COUNT (AUTO) 343 /CMM (150-450); RED BLOOD CELL COUNT(AUTO) 2.66 MIL/uL (4.5-6.0); WHITE BLOOD COUNT (AUTO) 24.3 K/uL (4.3-11.0)
[2019-04-04 06:55] LABS: HEMOGLOBIN 6.7 g/dL (13.5-17.5)
--- NOTE | 2019-04-04 07:00 | NUR ---
RN NOTE, RECEIVED CRITICAL LAB VALUE FROM LAB, HGB 6.7, AND HCT 21.5. DR LÓPEZ MULLING MACHINE OPERATOR FOR DR RUTLEDGE AND WILL CALL PER EXCHANGE. PATIENT REMAINS ON LEVOPHED DRIP OF 15 MCG/MIN. BP 99/74. WILL ENDORSE TO AM RN FOR DENNIS.
--- NOTE | 2019-04-04 07:25 | NUR ---
CURRICULUM AND INSTRUCTION DIRECTOR OPENING NOTES RECEIVED REPORT FROM PM NURSE.PATIENT IN BED RESPONDS TO TACTILE STIMULI,OPEN EYES. VSS. ON MECHANICAL VENT.TOLERATING SETTINGS ORDERED. NO DISTRESS NOTED AT THIS TIME.ALEX PICCLINE WITH LEVO @15CMCG ONGOING.TEMP NOTED 100.3. BED IS IN LOW/LOCKED POSITION, SIDE RAILS UPX3. CALL LIGHT WITHIN REACH.BED ALARM ON. LOW H/H.WAITING FOR BLOOD TRANSFUSION.WILL CONTINUE TO MONITOR.
[2019-04-04 07:55] LABS: BAND % (MANUAL) 5 % (0.0-5.0); EOSINOPHILS % (MANUAL) 3 % (0-4); LYMPHOCYTES % (MANUAL) 4 % (16-48); MONOCYTES % (MANUAL) 14 % (0-11.0); NEUTROPHILS % (MANUAL) 74 (42-76)
[2019-04-04] MEDS: LACTOBACILLUS RHAMNOSUS GG 1 EACH CAP.SPRINK GT SCH ×2 (08:57→16:35)
[2019-04-04] MEDS: CHLORHEXIDINE GLUCONATE 15 ML UDC MM SCH ×2 (08:57→16:35)
[2019-04-04] MEDS: TRAMADOL HCL 50 MG TABLET GT SCH ×2 (08:57→16:36)
[2019-04-04] MEDS: DOCUSATE SODIUM 100 MG CAPSULE PO SCH ×2 (08:57→16:36)
[2019-04-04] MEDS: SUCRALFATE 1 G/10 ML UDC GT SCH ×2 (08:57→21:52)
[2019-04-04] MEDS: VIT B CMPLX 3/FA/VIT C/BIOTIN 1 TAB TABLET PO SCH (08:57)
[2019-04-04] MEDS: ZINC SULFATE 220 MG CAPSULE GT SCH ×2 (08:57→16:36)
[2019-04-04] MEDS: ASCORBIC ACID 500 MG TABLET GT SCH ×2 (08:57→16:36)
[2019-04-04] MEDS: PANTOPRAZOLE 40 MG/PACK PACK GT SCH (08:57)
--- NOTE | 2019-04-04 09:26 | NUR ---
REAL ESTATE BROKER NOTE SEEN BY UPDATED ABOUT PATIENT CONDITION WITH ELEVATED TEMP.GOT NEW ORDER FOR ID CONSULT.OK TO START FEEDING AFTER DIETARY CONSULT.
--- NOTE | 2019-04-04 10:50 | NUR ---
MUSHROOM CUTTER NOTE MADE AWARE THAT BLOOD IS READY BUT PATIENT TEMP STILL ELEVATED.HE TOLD TO HOLD BLOOD TRANSFUSION UNTIL TEMP GET STABILIZED.WILL CONTINUE TO MONITOR.
[2019-04-04] MEDS: NEPRO 1,000 ML BOTTLE GT PRN (13:59)
[2019-04-04] MEDS: PROSOURCE / PROSTAT (PYXIS) 30 ML UDC GT SCH ×2 (13:59→16:33)
--- NOTE | 2019-04-04 14:09 | NUR ---
POWER ENGINEER NOTE SEEN BY ,UPDATED ABOUT PATIENT CONDITION WITH ELEVATED TEMP.MADE AWARE PER HOLDING BLOOD TRANSFUSION BECAUSE OF ELEVATED TEMP. PER OK TO GIVE BLOOD TRANSFUSION,TO GIVE TYLENOL AND TRANSFUSE BLOOD.MADE AWARE CURRENT TEMP IS 101.5WILL CONTINUE TO MONITOR.
[2019-04-04] MEDS ORDERED: ACETAMINOPHEN 650 MG/20.3 ML UDC GT ONE (14:30)
[2019-04-04] MEDS ORDERED: DOSING PER PHARMACY-AMIKACI IV XX PRN (16:00)
[2019-04-04] MEDS ORDERED: FEE PK DOSING 1 MIN EA MC ONE (16:05)
[2019-04-04] MEDS: CEFEPIME 1 GM in IV D5W 50 ML IV SCH (16:33)
[2019-04-04] MEDS: NOREPINEPHRINE 16 MG in IV D5W 500 ML IV PRN (16:35)
[2019-04-04] MEDS ORDERED: AMIKACIN 450 MG in IV D5W 100 ML IV ONE (17:00)
[2019-04-04] MEDS: ATENOLOL 25 MG TABLET GT SCH (18:00)
[2019-04-04] MEDS: HYDROGEL DRESSING 90 GM TUBE TP SCH (18:11)
[2019-04-04] MEDS: DAKINS QUARTER STRENGTH (0.125%) 480 ML BOTTLE TOP SCH (18:11)
[2019-04-04] MEDS: ACETAMINOPHEN 650 MG/20.3 ML UDC GT PRN (18:17)
--- NOTE | 2019-04-04 18:29 | NUR ---
ETHANOL MAINTENANCE MECHANIC NOTE GOT CONSENT FOR SACRAL WOUND DEBRIDEMENT FROM DAUGHTER CLASSI.VERIFIED WITH 2 RN.HOLD BP MEDS.
--- NOTE | 2019-04-04 19:54 | NUR ---
PT RCVD TRACH PORTEX 8 ON VENT WITH NOTED SETTINGS. PT IS OBTUNDED. SUCTIONED SMALL AMOUNT OF WHITE THIN SECRETIONS . VENT ALARMS ARE SET AND AUDIBLE. AMBU BAG AT BEDSIDE. VENT PLUGGED INTO RED OUTLET. CUFF INFLATED. NO RESPIRATORY DISTRESS NOTED AT THIS TIME . WILL CONTINUE TO MONITOR THE PT FOR ANY CHANGES.
--- NOTE | 2019-04-04 20:18 | NUR ---
GRILL CHEF. INITIAL ASSESSMENT. RECEIVED THE PT REST ON THE BED. TRACH TO VENT CONNECTED. PT IS OBTUNDED. LOWER EXTREMITIES CONTRACTED, TRACH PORTEX#8.AC 14,TV 550,FIO2 40%, PEEP 5. SAT 98%. NO ACUTE DISTRESS NOTED, NIGHT CLERK SHOWING S TACH. AFEBRILE. COOLING BLANKET ON. HOB ELEVATED, GT INTACT, NEPHRO 50ML/H. IV RT UPPER ARM ICC LINE LEVOPHED 16MCG/MIN, MULTIPLE WOUND. RT CHEST WALL HD CATH. WILL CONTINUE TO MONITOR VITALS.
[2019-04-05] VITALS (83 sets, daily range): BP systolic 73–136; BP diastolic 48–87
[2019-04-05 04:03] LABS: BASOPHILS # (AUTO) 0.1 /CMM (0.0-0.2); BASOPHILS % (AUTO) 0.3 % (0.0-2.0); EOSINOPHILS % (AUTO) 0.6 % (0.0-6.0); HEMATOCRIT 25 % (39-51); LYMPHOCYTES # (AUTO) 0.8 /CMM (0.8-4.8); LYMPHOCYTES % (AUTO) 3.1 % (20.0-44.0); MEAN CORPUSCULAR HGB CONC 31 g/dl (31.0-36.0); MEAN CORPUSCULAR VOLUME 81 fL (80-96); MONOCYTES # (AUTO) 2.4 /CMM (0.1-1.30); MONOCYTES % (AUTO) 9.4 % (2.0-12.0); NEUTROPHILS # (AUTO) 22.5 /CMM (1.8-8.9); NEUTROPHILS % (AUTO) 86.6 % (43.0-81.0); PLATELET COUNT (AUTO) 310 /CMM (150-450); RED BLOOD CELL COUNT(AUTO) 3.16 MIL/uL (4.5-6.0)
--- NOTE | 2019-04-05 04:12 | NUR ---
HOME HEALTH ASSISTANT. AM CARE. ORAL CARE, BED BATH GIVEN. LINEN CHANGED REMAINING SAME VENT SETTING AND GT FEEDING TOLERATED WELL. SAT 98%, NO ACUTE DISTRESS NOTED, IGNITER ASSEMBLER SHOWING S TACH, TEMPERATURE AT THIS TIME 99.5, HOB ELEVATED, GT FEEDING TOLERATED WELL. LEVOPHED 20MCG/MIN. WOUND DRESSING DONE. TURN AND REPOSITION Q2H. WILL CONTINUE TO MONITOR VITALS.
[2019-04-05 04:18] LABS: CALCIUM, SERUM 9.1 mg/dL (8.5-10.1); CREATININE 6.4 mg/dL (0.6-1.3); MAGNESIUM 2.4 mg/dL (1.8-2.4); PHOSPHORUS 3.8 mg/dL (2.5-4.9); POTASSIUM 4.8 mmol/L (3.5-5.1)
[2019-04-05] MEDS: NOREPINEPHRINE 16 MG in IV D5W 500 ML IV PRN ×2 (04:58→16:58)
[2019-04-05] MEDS: BLOOD SUGAR DIAGNOSTIC 1 EACH STRIP IN SCH ×5 (06:00→23:27)
--- NOTE | 2019-04-05 08:10 | NUR ---
RN NOTE: PATIENT RECEIVED OBTUNDED, OPEN EYES TO PAINFUL & VERBAL TACTILE. ON VENT-TRAC, SETTINGS TOLERATING WELL. TUBE FEEDING RUNNING ORDERED, NO RESIDUAL NOTED. ASPIRATION PRECAUTIONS OBSERVED. S/P HD DONE TODAY, TOLERATED WELL WITH NO OUTPUT. BLOOD CULTURES DONE WITH HD. CONTINUE WITH LEVO GTT ORDERED. SAFETY MEASURES OBSERVED. CONTACT ISOLATION MAINTAINED ORDERED. CONTINUE TO MONITOR.
--- NOTE | 2019-04-05 08:30 | NUR ---
WOUND CARE CONSULT WOUND CARE RECEIVED CONSULT FOR PRESSURE ULCERS SACRAL AND BILATERAL FEET. WOUND CARE WILL DEFER CONSULT AND ALL TREATMENT PLANS TO PLASTIC SURGICAL TEAM INCLUDING DPGisela THAKKAR WHO ARE ALL CURRENTLY FOLLOWING THIS PATIENT. PATIENT WITH LAMONTE AT 6. ALL PRESSURE ULCER PREVENTION MEASURES ARE NOTED TO BE IN PLACE AT THIS TIME. WILL SEE PRN.
[2019-04-05] MEDS: DOCUSATE SODIUM 100 MG CAPSULE PO SCH ×2 (09:00→17:00)
[2019-04-05] MEDS: ZINC SULFATE 220 MG CAPSULE GT SCH ×2 (09:24→18:00)
[2019-04-05] MEDS: LACTOBACILLUS RHAMNOSUS GG 1 EACH CAP.SPRINK GT SCH ×2 (09:24→18:01)
[2019-04-05] MEDS: ASCORBIC ACID 500 MG TABLET GT SCH ×2 (09:24→18:00)
[2019-04-05] MEDS: TRAMADOL HCL 50 MG TABLET GT SCH ×2 (09:24→18:01)
[2019-04-05] MEDS: PANTOPRAZOLE 40 MG/PACK PACK GT SCH (09:25)
[2019-04-05] MEDS: VIT B CMPLX 3/FA/VIT C/BIOTIN 1 TAB TABLET PO SCH (09:25)
[2019-04-05] MEDS: SUCRALFATE 1 G/10 ML UDC GT SCH ×2 (09:25→21:00)
[2019-04-05] MEDS: CHLORHEXIDINE GLUCONATE 15 ML UDC MM SCH ×2 (09:25→18:00)
[2019-04-05] MEDS: SILVER SULFADIAZINE CREAM 25 GM TUBE TP SCH (09:26)
[2019-04-05] MEDS: HYDROGEL DRESSING 90 GM TUBE TP SCH (09:26)
[2019-04-05] MEDS: DAKINS QUARTER STRENGTH (0.125%) 480 ML BOTTLE TOP SCH (09:26)
[2019-04-05] MEDS: PROSOURCE / PROSTAT (PYXIS) 30 ML UDC GT SCH ×3 (09:27→18:01)
[2019-04-05] MEDS: ALBUMIN 25% 25 GM in PREMIX 1 EA IV PRN (09:43)
[2019-04-05 11:27] LABS: ABG OXYGEN SATURATION 97.9 % (92.0-98.5); ABG PCO2 39.7 mmHg (35.0-45.0); ABG PH 7.453 (7.350-7.450); ABG PO2 117.9 mmHg (75.0-100.0); AaDO2 121.6 mmHg; COHb 0.4 % (0.5-1.5); MetHb 0.9 % (0.0-1.5); O2Hb 96.6 % (94.0-97.0); SITE, ABG Right Radial
[2019-04-05] MEDS: NEPRO 1,000 ML BOTTLE GT PRN (12:31)
[2019-04-05] MEDS: CEFEPIME 1 GM in IV D5W 50 ML IV SCH (15:54)
[2019-04-05] MEDS: ATENOLOL 25 MG TABLET GT SCH (18:00)
--- NOTE | 2019-04-05 19:30 | NUR ---
Received report from day shift RN.Patient resting open eyes to verbal and tactile stimuli. Obtunded and nonverbal.Appears comfortable.ST 105 per tele monitoring.With Levophed gtt infusing for BP support and will titrate accordingly.Chronic VDRF tolerating prescribed vent settings well.SPO2 100%.GT feeding in progress no residual noted.HOB elevated. Will turn and reposition Q 2 hrs.Contact isolation precaution maintained.
[2019-04-05] MEDS: MUPIROCIN OINT 2% 22 GM TUBE SCH (21:00)
[2019-04-06] VITALS (95 sets, daily range): BP systolic 79–134; BP diastolic 45–90
[2019-04-06 05:05] LABS: CALCIUM, SERUM 9.3 mg/dL (8.5-10.1); CREATININE 5.7 mg/dL (0.6-1.3); POTASSIUM 3.8 mmol/L (3.5-5.1)
[2019-04-06] MEDS: BLOOD SUGAR DIAGNOSTIC 1 EACH STRIP IN SCH ×3 (05:55→18:18)
--- NOTE | 2019-04-06 06:20 | NUR ---
Patient resting no acute distress noted.SR/ST per monitor.Remains hemodynamically unstable with Levophed gtt infusing and titrated accordingly.Tolerating gt feeding. AM care done.Oral care and wound care done.Turned and repositioned.Anuric for HD today.FSBS WNL.Will endorse to next shift for steve.
--- NOTE | 2019-04-06 07:53 | NUR ---
AIRCONDITIONING PLANT OPERATOR: pt.is obtunded, no grimacing, rest, ST 100-120, on Levophed gtt 6mcg/m, continue titrate, SBP over 90 now, O2sat. over 95%, no SOB, suctioned well, anuric, GTF residual WNL, plan HD today
[2019-04-06] MEDS: PANTOPRAZOLE 40 MG/PACK PACK GT SCH (08:18)
[2019-04-06] MEDS: ASCORBIC ACID 500 MG TABLET GT SCH ×2 (08:18→16:48)
[2019-04-06] MEDS: ZINC SULFATE 220 MG CAPSULE GT SCH ×2 (08:18→16:48)
[2019-04-06] MEDS: DOCUSATE SODIUM 100 MG CAPSULE PO SCH ×2 (08:18→16:48)
[2019-04-06] MEDS: LACTOBACILLUS RHAMNOSUS GG 1 EACH CAP.SPRINK GT SCH ×2 (08:18→16:48)
[2019-04-06] MEDS: VIT B CMPLX 3/FA/VIT C/BIOTIN 1 TAB TABLET PO SCH (08:18)
[2019-04-06] MEDS: TRAMADOL HCL 50 MG TABLET GT SCH ×2 (08:19→16:47)
[2019-04-06] MEDS: SUCRALFATE 1 G/10 ML UDC GT SCH ×2 (08:19→21:02)
[2019-04-06] MEDS: CHLORHEXIDINE GLUCONATE 15 ML UDC MM SCH ×2 (08:19→16:50)
[2019-04-06] MEDS: DAKINS QUARTER STRENGTH (0.125%) 480 ML BOTTLE TOP SCH (08:20)
[2019-04-06] MEDS: HYDROGEL DRESSING 90 GM TUBE TP SCH (08:20)
[2019-04-06] MEDS: MUPIROCIN OINT 2% 22 GM TUBE SCH ×2 (08:21→21:03)
[2019-04-06] MEDS: Z GUARD REMEDY 2 OZ OINT TP PRN (08:21)
[2019-04-06] MEDS: PROSOURCE / PROSTAT (PYXIS) 30 ML UDC GT SCH ×3 (08:22→16:47)
[2019-04-06] MEDS: SILVER SULFADIAZINE CREAM 25 GM TUBE TP SCH (08:24)
[2019-04-06] MEDS: NOREPINEPHRINE 16 MG in IV D5W 500 ML IV PRN (08:26)
[2019-04-06] MEDS: ACETAMINOPHEN 650 MG/20.3 ML UDC GT PRN ×2 (08:38→18:01)
[2019-04-06] MEDS: NEPRO 1,000 ML BOTTLE GT PRN (08:51)
--- NOTE | 2019-04-06 09:30 | NUR ---
MANUFACTURING MAINTENANCE MANAGER: d/jolie HD today, HD tomorrow, pharmacy notified
--- NOTE | 2019-04-06 10:00 | NUR ---
SEROLOGY TEACHER: updated with pt.current condition, VS, O2sat., Levophed gtt, suction amount
--- NOTE | 2019-04-06 14:00 | NUR ---
SENIOR MERCHANDISER: continue titrate Levophed gtt, T below 99.0, PM/skin/wounds care done, DPM were in room before/checked wounds, see new orders
[2019-04-06] MEDS: HYDROCORTISONE SOD SUCCINATE 100 MG/2 ML VIAL IV SCH ×2 (15:04→20:00)
[2019-04-06] MEDS: CEFEPIME 1 GM in IV D5W 50 ML IV SCH (16:32)
[2019-04-06] MEDS: IV NS 0.9% 250 ML IV PRN (16:47)
--- NOTE | 2019-04-06 17:00 | NUR ---
WATER QUALITY TESTER: SEE Arguello STATION INSPECTOR is in room, updated with pt.current condition, VS, suction amount, Levophed gtt/unable to remove PICC now d/t pressor, said: repeat BC with next HD
--- NOTE | 2019-04-06 17:45 | NUR ---
SUPERINTENDENT CONCRETE MIXING PLANT: ST now 130-140, T 102.0 now, hypothermic measures implemented, pt.is diaphoretic, got Tylenol
[2019-04-06] MEDS: ATENOLOL 25 MG TABLET GT SCH (18:00)
--- NOTE | 2019-04-06 19:30 | NUR ---
Received patient open eyes spontaneously otherwise obtunded.Non verbal non interactive. Feverish and sweating and cooling blanket in place.Kept clean and dry.ST per monitor.Levophed gtt infusing for BP support and will titrate accordingly.Patient chronic VDRF with trach to vent with prescribed settings and well tolerated.GT feeding in progress no residual noted.HOB elevated. Will turn and reposition Q 2 hrs.Maintained on KCI mattress.No distress noted.Continue monitoring.
[2019-04-07] VITALS (72 sets, daily range): BP systolic 80–156; BP diastolic 51–96
[2019-04-07] MEDS: BLOOD SUGAR DIAGNOSTIC 1 EACH STRIP IN SCH ×5 (00:01→23:41)
--- NOTE | 2019-04-07 04:00 | NUR ---
Patient BP WNL.Levophed gtt titrated off.Afebrile.SR per monitor.Bathed and complete linens changed.Oral care done.Trach care done.Wound care done.Tolerating gt feeding.Turned and repositioned offloading pressure points.No distress noted.
[2019-04-07 05:20] LABS: BASOPHILS # (AUTO) 0.1 /CMM (0.0-0.2); BASOPHILS % (AUTO) 0.5 % (0.0-2.0); EOSINOPHILS % (AUTO) 0.1 % (0.0-6.0); HEMATOCRIT 22 % (39-51); LYMPHOCYTES # (AUTO) 0.9 /CMM (0.8-4.8); LYMPHOCYTES % (AUTO) 6.5 % (20.0-44.0); MEAN CORPUSCULAR HGB CONC 32 g/dl (31.0-36.0); MEAN CORPUSCULAR VOLUME 81 fL (80-96); MONOCYTES # (AUTO) 0.4 /CMM (0.1-1.30); MONOCYTES % (AUTO) 2.8 % (2.0-12.0); NEUTROPHILS # (AUTO) 12.3 /CMM (1.8-8.9); NEUTROPHILS % (AUTO) 90.1 % (43.0-81.0); PLATELET COUNT (AUTO) 218 /CMM (150-450); RED BLOOD CELL COUNT(AUTO) 2.71 MIL/uL (4.5-6.0); WHITE BLOOD COUNT (AUTO) 13.7 K/uL (4.3-11.0)
[2019-04-07 05:39] LABS: CALCIUM, SERUM 9.3 mg/dL (8.5-10.1); CREATININE 7.1 mg/dL (0.6-1.3); MAGNESIUM 2.8 mg/dL (1.8-2.4); PHOSPHORUS 1.3 mg/dL (2.5-4.9); POTASSIUM 4.1 mmol/L (3.5-5.1)
--- NOTE | 2019-04-07 07:10 | NUR ---
Patient resting in no acute distress.VSS.SR.AM labs resulted H/H 01/15.Paged Pat DACOSTA.Not responded yet.Endorsed to Roger Fernández RN for continuity of care.
--- NOTE | 2019-04-07 07:57 | NUR ---
MANAGER ASSURANCE: pt.is obtunded, rest, no SOB, O2sat. over 95%, suctioned well, SR/ST, Levophed is off since 399, GTF residual WNL, anuric, plan: HD today, added orders for Amikacin, Vanco level V before HD, H/H 7.0, MD was paged by night nurse, no ISS in eMAR/will s/w pharmacy,, Saundra AHUMADA wants to d/c PICC/will s/w her after HD, also order for BC with HD, no external bleeding events by report, WBC downs, T WNL
[2019-04-07] MEDS: SUCRALFATE 1 G/10 ML UDC GT SCH ×2 (08:16→21:12)
[2019-04-07] MEDS: VIT B CMPLX 3/FA/VIT C/BIOTIN 1 TAB TABLET PO SCH (08:16)
[2019-04-07] MEDS: LACTOBACILLUS RHAMNOSUS GG 1 EACH CAP.SPRINK GT SCH ×2 (08:16→16:46)
[2019-04-07] MEDS: PANTOPRAZOLE 40 MG/PACK PACK GT SCH (08:16)
[2019-04-07] MEDS: CHLORHEXIDINE GLUCONATE 15 ML UDC MM SCH ×2 (08:16→16:45)
[2019-04-07] MEDS: DOCUSATE SODIUM 100 MG CAPSULE PO SCH ×2 (08:17→16:46)
[2019-04-07] MEDS: HYDROCORTISONE SOD SUCCINATE 100 MG/2 ML VIAL IV SCH ×3 (08:17→16:46)
[2019-04-07] MEDS: ASCORBIC ACID 500 MG TABLET GT SCH ×2 (08:17→16:46)
[2019-04-07] MEDS: TRAMADOL HCL 50 MG TABLET GT SCH ×2 (08:17→16:46)
[2019-04-07] MEDS: ZINC SULFATE 220 MG CAPSULE GT SCH ×2 (08:17→16:46)
[2019-04-07] MEDS: NEPRO 1,000 ML BOTTLE GT PRN (08:46)
[2019-04-07] MEDS: PROSOURCE / PROSTAT (PYXIS) 30 ML UDC GT SCH ×3 (08:46→16:47)
[2019-04-07] MEDS: HYDROGEL DRESSING 90 GM TUBE TP SCH (08:48)
[2019-04-07] MEDS: DAKINS QUARTER STRENGTH (0.125%) 480 ML BOTTLE TOP SCH (08:48)
[2019-04-07] MEDS: MUPIROCIN OINT 2% 22 GM TUBE SCH ×2 (08:49→21:12)
[2019-04-07] MEDS: SILVER SULFADIAZINE CREAM 25 GM TUBE TP SCH (08:49)
[2019-04-07] MEDS: Z GUARD REMEDY 2 OZ OINT TP PRN (08:49)
--- NOTE | 2019-04-07 09:42 | NUR ---
YARD COORDINATOR: HD nurse updated with pt.VS, pressor off, labs, order for HD cath Cx, plan: remove PICC after HD if Levophed off and place new midline/PICC as needed, charge nurse is aware
[2019-04-07] MEDS ORDERED: DEXTROSE 50%-WATER 50 ML DISP.SYRIN IV PRN (11:30)
--- NOTE | 2019-04-07 11:30 | NUR ---
MACHINE QUILT STUFFER: is in room, updated with pt.current condition, HD is in process, VS, pressor off since 399, H/H, BS, Saundra, PERSONAL COMPUTER SPECIALIST order to remove PICC, ordered: transfuse one PRBC unit after HD over 3hrs, start mild ISS, ask Nera to be agreed to remove PICC, send tip for Cx and place new PICC/midline before removal d/t risk by restart pressor or wait
--- NOTE | 2019-04-07 11:45 | NUR ---
HELMET HAT BRIM CUTTER: HD is in process, SR/ST max 110, MAP 63-68, HD nurse is aware and ok, going to give Albumin
[2019-04-07] MEDS: ALBUMIN 25% 25 GM in PREMIX 1 EA IV PRN (11:57)
--- NOTE | 2019-04-07 12:00 | NUR ---
CREW TEAM MEMBER: Saundra was paged/answered: ok to remove old PICC with Tip Cx and place in new PICC/midline
--- NOTE | 2019-04-07 14:00 | NUR ---
MANUFACTURING COORDINATOR: R.PICC removed, no c/o, sent tip for cx, new L.PICC placed in by GRETCHEN Lazaro, ok to use
[2019-04-07] MEDS: CEFEPIME 1 GM in IV D5W 50 ML IV SCH (16:45)
[2019-04-07] MEDS: ATENOLOL 25 MG TABLET GT SCH (18:05)
[2019-04-07] MEDS: INSULIN REGULAR, HUMAN 100 UNIT/ML 3 ML VIAL SQ PRN (18:12)
--- NOTE | 2019-04-07 18:26 | NUR ---
KICKBOXING INSTRUCTOR: pt. is rest, obtunded, no SOB, SR, SBP over 100, O2sat. WNL, GTF residual WNL, suctioned well, PM/skin/all wounds care done, tolerated well for blood transfusion
[2019-04-07] MEDS: AMIKACIN 500 MG in IV D5W 100 ML IV PRN (19:16)
[2019-04-07] MEDS: IV NS 0.9% 250 ML IV PRN (19:52)
--- NOTE | 2019-04-07 20:00 | NUR ---
Received patient obtunded and nonverbal.Open eyes spontaneously but not following commands.Maintained on prescribed vent support.Settings well tolerated.SPO2 100%. H/H 7.0/22 1 UNIT PRBC transfused without adverse reaction noted.VSS.GT feeding infusing no residual noted.HOB elevated.Anuric patient on HD.Perma cath in place. PICC line to DEBBIE in place with good blood returned.Turned and repositioned.Continue monitoring.
[2019-04-08] VITALS (24 sets, daily range): BP systolic 105–149; BP diastolic 62–90
--- NOTE | 2019-04-08 01:30 | NUR ---
Patient complaining of bed very uncomfortable.Bed changed with low air loss mattress. Bathed and linens changed.Verbalized comfort.Placed on BIPAP by WILFREDO QUEZADA. Addendum: 04/08/19 at 0623 by WALE MARTÍNEZ RN please disregard above notes.Wrong entry.
[2019-04-08 04:57] LABS: BASOPHILS % (AUTO) 0.1 % (0.0-2.0); EOSINOPHILS % (AUTO) 0.1 % (0.0-6.0); HEMATOCRIT 24 % (39-51); HEMOGLOBIN 7.4 g/dL (13.5-17.5); LYMPHOCYTES # (AUTO) 1.1 /CMM (0.8-4.8); LYMPHOCYTES % (AUTO) 5.4 % (20.0-44.0); MEAN CORPUSCULAR HGB CONC 31 g/dl (31.0-36.0); MEAN CORPUSCULAR VOLUME 82 fL (80-96); MONOCYTES # (AUTO) 1.4 /CMM (0.1-1.30); MONOCYTES % (AUTO) 6.8 % (2.0-12.0); NEUTROPHILS # (AUTO) 17.4 /CMM (1.8-8.9); NEUTROPHILS % (AUTO) 87.6 % (43.0-81.0); PLATELET COUNT (AUTO) 210 /CMM (150-450); RED BLOOD CELL COUNT(AUTO) 2.89 MIL/uL (4.5-6.0); WHITE BLOOD COUNT (AUTO) 19.9 K/uL (4.3-11.0)
[2019-04-08 04:59] LABS: CALCIUM, SERUM 9.3 mg/dL (8.5-10.1); CREATININE 5.8 mg/dL (0.6-1.3); MAGNESIUM 2.9 mg/dL (1.8-2.4); PHOSPHORUS 1.3 mg/dL (2.5-4.9)
[2019-04-08] MEDS: BLOOD SUGAR DIAGNOSTIC 1 EACH STRIP IN SCH ×4 (05:37→23:58)
--- NOTE | 2019-04-08 06:00 | NUR ---
Patient status unchanged.VSS.SR per monitor.GT feeding well tolerated.AM care done. Wound care done.Mouth care and trach care done.Blood culture 2 sets preliminary results with Gram Negative Rods.Called to Brandon DACOSTA.No new orders received.No distress noted. Will endorse to day shift for steve.
--- NOTE | 2019-04-08 07:35 | NUR ---
RN NOTE: RECEIVED PATIENT, NONVERBAL AND CAN SPONTANEOUSLY OPEN HIS EYES. ON CHRONIC VENT/TRACH DEPENDENT SATURATING 97-100% WITH CURRENT VENT SETTING. (L) UA PICC LINE TRIPLE LUMEN WAS NOTED, INFUSING A NS @5ML/HR TKO. ALL 3 PORTS WERE FLUSHING WELL WITH GOOD BLOOD RETURN. HOB ELEVATED. GT FEEDING OF NEPHRO @ 50ML/HR WITH NO RESIDUAL NOTED. ON CONTACT ISOLATION FOR MRSA NARES. AFEBRILE. SKIN WARM TO TOUCH. (R) CHEST WALL HD CATHETER WAS NOTED INTACT AND WITH DRY DRESSING. BED ALARMED AND LOCKED AT ALL TIMES. BED ON LOWEST POSITION. NEEDS ANTICIPATED.
[2019-04-08] MEDS: NEPRO 1,000 ML BOTTLE GT PRN (08:18)
[2019-04-08] MEDS: VIT B CMPLX 3/FA/VIT C/BIOTIN 1 TAB TABLET PO SCH (09:25)
[2019-04-08] MEDS: DOCUSATE SODIUM 100 MG CAPSULE PO SCH ×2 (09:25→17:00)
[2019-04-08] MEDS: PANTOPRAZOLE 40 MG/PACK PACK GT SCH (09:25)
[2019-04-08] MEDS: SUCRALFATE 1 G/10 ML UDC GT SCH ×2 (09:26→22:16)
[2019-04-08] MEDS: PROSOURCE / PROSTAT (PYXIS) 30 ML UDC GT SCH ×3 (09:26→17:53)
[2019-04-08] MEDS: HYDROCORTISONE SOD SUCCINATE 100 MG/2 ML VIAL IV SCH ×3 (09:26→17:52)
[2019-04-08] MEDS: ASCORBIC ACID 500 MG TABLET GT SCH ×2 (09:26→17:52)
[2019-04-08] MEDS: ZINC SULFATE 220 MG CAPSULE GT SCH ×2 (09:26→17:52)
[2019-04-08] MEDS: LACTOBACILLUS RHAMNOSUS GG 1 EACH CAP.SPRINK GT SCH ×2 (09:26→17:52)
[2019-04-08] MEDS: TRAMADOL HCL 50 MG TABLET GT SCH ×2 (09:26→17:52)
[2019-04-08] MEDS: CHLORHEXIDINE GLUCONATE 15 ML UDC MM SCH ×2 (09:26→17:53)
[2019-04-08] MEDS: MUPIROCIN OINT 2% 22 GM TUBE SCH ×2 (09:39→22:17)
[2019-04-08] MEDS: SILVER SULFADIAZINE CREAM 25 GM TUBE TP SCH (09:40)
[2019-04-08] MEDS: HYDROGEL DRESSING 90 GM TUBE TP SCH (09:40)
[2019-04-08] MEDS: DAKINS QUARTER STRENGTH (0.125%) 480 ML BOTTLE TOP SCH (09:41)
[2019-04-08 09:52] LABS: ABG BASE EXCESS 1.5 mmol/L; ABG OXYGEN SATURATION 96.7 % (92.0-98.5); ABG PCO2 39.8 mmHg (35.0-45.0); ABG PH 7.431 (7.350-7.450); ABG PO2 94.3 mmHg (75.0-100.0); AaDO2 145.1 mmHg; MetHb 0.7 % (0.0-1.5); PEEP,BG 0 cm H2O; SITE, ABG Right Radial
[2019-04-08] MEDS ORDERED: NEUTRA PHOS 1 POWD.PACKET GT ONE (11:00)
--- NOTE | 2019-04-08 12:30 | NUR ---
RN NOTE: DR. MASSIMO LÓPEZ WAS IN THE UNIT AND WAS INFORMED OF THE CRE KLEBSIELLA PNEUMONIAE OF THE SACRAL WOUND. MD WITH NO NEW ORDER AT THIS TIME. INFECTIOUS DISEASE MD ON THE CASE ALREADY.
[2019-04-08] MEDS: CEFEPIME 1 GM in IV D5W 50 ML IV SCH (15:22)
[2019-04-08] MEDS: VANCOMYCIN 500 MG in IV D5W 100 ML IV PRN (15:33)
[2019-04-08] MEDS: ATENOLOL 25 MG TABLET GT SCH (18:40)
--- NOTE | 2019-04-08 19:27 | NUR ---
RN NOTE: BEDSIDE REPORT WAS GIVEN TO PM SHIFT NURSE FOR CONTINUITY OF CARE. PATIENT REMAINED ON CONTACT ISOLATION FOR MRSA NARES. VANCOMYCIN POST HD WAS ADMINISTERED.
--- NOTE | 2019-04-08 19:35 | NUR ---
TITLE I TEACHER, INITIAL ASSESSMENT. RECEIVED THE PT REST ON THE BED, NONVERBAL. OPEN EYES, DOES NOT FOLLOW COMMANDS. TRACH TO VENT CONNECTED, PORTEX#8,AC 14,TV 550,FIO2 40%. SAT 98%, NO ACUTE DISTRESS NOTED, CASHIER CREDIT SHOWING NSR, IV LT UPPER ARM PICC LINE RT CHEST WALL HD CATH. GT INTACT. NEPHRO 40ML/H. A FEBRILE. HOB ELEVATED. MULTIPLE WOUND. WILL CONTINUE TO MONITOR VITALS.
--- NOTE | 2019-04-08 20:19 | NUR ---
INCIDENT RESPONSE CONSULTANT. REPORT GIVEN TO PEDRO FORREST . TRANSFER THE PATIENT TO ROOM 120 BED #1, PT IS STABLE.
--- NOTE | 2019-04-08 20:35 | NUR ---
ESTHETICIAN/SKIN THERAPIST NOE REPORT RECEIVED FROM [facility] ICU NURSE REGARDING PT WHO CAME IN VIA BED FROM ICU. PT IS OBTUNDED. ON VENT/TRACH PORTEX #8 AC 14 TV 550 FIO2 40 PEEP O. PT TOLERATING THE SETTINGS WELL. NO DISTRESS OR DISCOMFORT NOTED. NO S/S OF PAIN NOTED. ON TELE MONITOR SR WITH INVERTED T WAVE HR 87. GTF NEPRO INFUSING AT 50 ML/HR, 0 ML RESIDUAL NOTED. BILATERAL FEET WITH WOUND DRESSING I/C/D. DEBBIE WITH NON FUNCTIONING AV SHUNT, RT SUBCLAVIAN HD CATH INTACT. KEPT HOB ELEVATED. SIDE RAILS UP X 3 AND CALL LIGHT WITHIN REACH. VSS REPOSITION HIM FOR SKIN MANAGEMENT. FLEX SEAL INTACT AND PATENT NO OUT PUT NOTED. CONTINUE TO MONITOR HIM.
[2019-04-08] MEDS: IV NS 0.9% 250 ML IV PRN (22:27)
[2019-04-08] MEDS: INSULIN REGULAR, HUMAN 100 UNIT/ML 3 ML VIAL SQ PRN (23:59)
[2019-04-09] VITALS: BP 131/77
--- NOTE | 2019-04-09 | NUR ---
TELE1 RN NOTE WOUND ASSESSMENT DONE. PICTURES TAKEN AND TX GIVEN ORDERED.
[2019-04-09 04:00] VITALS: BP 111/63
[2019-04-09] MEDS: NEPRO 1,000 ML BOTTLE GT PRN (06:30)
[2019-04-09] MEDS: BLOOD SUGAR DIAGNOSTIC 1 EACH STRIP IN SCH ×3 (06:42→17:42)
--- NOTE | 2019-04-09 06:52 | NUR ---
TELE 1 RN NOTE HD IN PROGRESS CIRAO T AND ALEX T LAB ORDERS RECEIVED. PT IN NO DISTRESS OR DISCOMFORT. NO S/S OF PAIN NOTED. GTF INFUSING WELL, FLEX SEAL INTACT AND PATENT DRAINING YELLOWISH LIQUIDY STOOL. ALL NEEDS ATTENDED. VSS. SIDE RAILS UP X 3 AND CALL LIGHT WITHIN REACH. WILL ENDORSE TO DAY SHIFT NURSE FOR CONTINUE TO CARE.
--- NOTE | 2019-04-09 07:10 | NUR ---
FLIGHT SURVEYOR OPENING NOTES RECEIVED PT LYING ON BED.OBTUNDED,CAN OPEN EYES.ON TELE HR IS 90 WITH NSR.MECHANICAL VENT AND TRACH DEPEND WITH AC 14,TV550 GAP297% PEEP0 AND WITH PORTEX #8.TOLERATING WELL.NO SOB AND ACUTE DISTRESS NOTED.HEMODIALYSIS IS GOING ON.G TUBE IS IN PLACE WITH NEPRO @50CC/HR IS RUNNING.MINIMAL GASTRIC RESIDUAL NOTED. IV LINE IS ON LEFT UA PICC LINE,RIGHT SUBCLAVIAN HD CATH PRESENT.SITE IS CLEAN DRY AND INTACT.NO INFILTRATION NOTED.SAFETY IS MAINTAINED AT ALL TIMES.BED IS IN LOW POSITION AND LOCKED.CALL LIGHT IS WITHIN REACH.WILL CONTINUE TO MONITOR THE PT CLOSELY.
[2019-04-09 07:33] LABS: BASOPHILS # (AUTO) 0.1 /CMM (0.0-0.2); BASOPHILS % (AUTO) 0.6 % (0.0-2.0); HEMATOCRIT 23 % (39-51); HEMOGLOBIN 7.4 g/dL (13.5-17.5); LYMPHOCYTES # (AUTO) 1.2 /CMM (0.8-4.8); LYMPHOCYTES % (AUTO) 5.2 % (20.0-44.0); MEAN CORPUSCULAR HGB CONC 32 g/dl (31.0-36.0); MEAN CORPUSCULAR VOLUME 81 fL (80-96); MONOCYTES # (AUTO) 1.7 /CMM (0.1-1.30); MONOCYTES % (AUTO) 7.5 % (2.0-12.0); NEUTROPHILS # (AUTO) 19.9 /CMM (1.8-8.9); NEUTROPHILS % (AUTO) 86.7 % (43.0-81.0); PLATELET COUNT (AUTO) 226 /CMM (150-450); RED BLOOD CELL COUNT(AUTO) 2.84 MIL/uL (4.5-6.0)
[2019-04-09 07:56] LABS: CREATININE 5.4 mg/dL (0.6-1.3); MAGNESIUM 2.6 mg/dL (1.8-2.4); PHOSPHORUS 1.2 mg/dL (2.5-4.9); POTASSIUM 3.7 mmol/L (3.5-5.1)
[2019-04-09 08:00] VITALS: BP 128/64
[2019-04-09] MEDS: SILVER SULFADIAZINE CREAM 25 GM TUBE TP SCH (09:15)
[2019-04-09] MEDS: DAKINS QUARTER STRENGTH (0.125%) 480 ML BOTTLE TOP SCH (09:15)
[2019-04-09] MEDS: HYDROGEL DRESSING 90 GM TUBE TP SCH (09:15)
[2019-04-09] MEDS: MUPIROCIN OINT 2% 22 GM TUBE SCH ×2 (09:16→21:34)
[2019-04-09] MEDS: VANCOMYCIN 500 MG in IV D5W 100 ML IV PRN (09:20)
[2019-04-09] MEDS: AMIKACIN 500 MG in IV D5W 100 ML IV PRN (09:20)
[2019-04-09] MEDS: HYDROCORTISONE SOD SUCCINATE 100 MG/2 ML VIAL IV SCH ×3 (09:21→17:12)
[2019-04-09] MEDS: DOCUSATE SODIUM 100 MG CAPSULE PO SCH ×2 (09:21→17:12)
[2019-04-09] MEDS: ZINC SULFATE 220 MG CAPSULE GT SCH ×2 (09:21→17:12)
[2019-04-09] MEDS: LACTOBACILLUS RHAMNOSUS GG 1 EACH CAP.SPRINK GT SCH ×2 (09:21→17:13)
[2019-04-09] MEDS: PANTOPRAZOLE 40 MG/PACK PACK GT SCH (09:21)
[2019-04-09] MEDS: TRAMADOL HCL 50 MG TABLET GT SCH ×2 (09:21→17:12)
[2019-04-09] MEDS: ASCORBIC ACID 500 MG TABLET GT SCH ×2 (09:22→17:12)
[2019-04-09] MEDS: SUCRALFATE 1 G/10 ML UDC GT SCH ×2 (09:22→21:33)
[2019-04-09] MEDS: CHLORHEXIDINE GLUCONATE 15 ML UDC MM SCH ×2 (09:22→17:12)
[2019-04-09] MEDS: VIT B CMPLX 3/FA/VIT C/BIOTIN 1 TAB TABLET PO SCH (09:27)
[2019-04-09] MEDS: PROSOURCE / PROSTAT (PYXIS) 30 ML UDC GT SCH ×3 (09:28→17:14)
--- NOTE | 2019-04-09 10:00 | NUR ---
CAMPUS SAFETY OFFICER NOTES HEMODIALYSIS HAS DONE AND 2L FLUID OUT.PT TOLERATED WELL
[2019-04-09] MEDS ORDERED: NEUTRA PHOS 1 POWD.PACKET NG ONE (11:00)
[2019-04-09 12:00] VITALS: BP 122/71
[2019-04-09] MEDS: INSULIN REGULAR, HUMAN 100 UNIT/ML 3 ML VIAL SQ PRN ×2 (12:05→17:42)
[2019-04-09] MEDS ORDERED: LIDOCAINE 1%-EPI 1:200,000 SDV 10 ML VIAL IJ STA (14:45)
[2019-04-09 16:00] VITALS: BP 126/64
[2019-04-09] MEDS: CEFEPIME 1 GM in IV D5W 50 ML IV SCH (17:00)
[2019-04-09] MEDS: ATENOLOL 25 MG TABLET GT SCH (17:13)
--- NOTE | 2019-04-09 18:43 | NUR ---
CABLEWAY OPERATOR CLOSING NOTES. PATIENT LYING ON BED, VENTILATOR AND TRACH DEPENDENT. PATIENT TOLERATING WELL. NO SOB, NO ACUTE DISTRESS NOTED. GTUBE IN PLACE. WITH FORMULA RUNNING. RESPIRATIONS EVEN AND UNLABORED. NORMAL SINUS RHYTHM. PICC LINE IN PLACE. NO SIGNIFICANT CHANGES NOTED IN THE SHIFT. WILL ENDORSE TO THE INCOMING SHIFT RN FOR EDNNIS.
[2019-04-09] MEDS ORDERED: FEE PK DOSING 1 MIN EA MC ONE (18:53)
[2019-04-09] MEDS ORDERED: GENTAMICIN 140 MG in IV D5W 50 ML IV ONE (19:00)
[2019-04-09 20:00] VITALS: BP 144/79
[2019-04-09] MEDS ORDERED: D5W IV ONE (20:00)
[2019-04-09] MEDS ORDERED: GENTAMICIN IV ONE (20:00)
--- NOTE | 2019-04-09 20:00 | NUR ---
RN OPENING NOTES RECEIVED PT RESTING IN BED COMFORTABLY, SHOWS NO S/SX OF RESP DISTRESS OR SOB, OBTUNDED, OPENS EYES, AND BED RIDDEN. PT HAS A PORTEX 8 TRACH AND IS CONNECTED TO VENTILATOR, TOLERATING SETTINGS WELL. HE IS RECEIVING NEPRO AT 50 ML/HR, TOLERATING WELL, NO RESIDUAL. RECTAL TUBE IS INTACT, DRAINING STOOL. PT HAS DEBBIE PICC LINE AND R SUBCLAVIAN HD CATH, INTACT. SAFETY MEASURES HAVE BEEN IMPLEMENTED, CALL LIGHT IS WITHIN REACH, BED IS IN LOWEST AND LOCKED POSITION, SIDE RAILS ARE UP X2, WILL ENDORSE TO AM RN FOR CUSTOMER EXPERIENCE RETAIL CLERK.
[2019-04-09] MEDS: LEVOFLOXACIN (250MG) 250 MG TABLET PO SCH (21:33)
[2019-04-09] MEDS: LINEZOLID 600 MG TABLET PO SCH (21:33)
[2019-04-10] VITALS (8 sets, daily range): BP systolic 124–136; BP diastolic 68–87
[2019-04-10] MEDS: BLOOD SUGAR DIAGNOSTIC 1 EACH STRIP IN SCH ×4 (06:08→18:13)
--- NOTE | 2019-04-10 07:16 | NUR ---
RN OPENING NOTES RECEIVED PT RESTING IN BED COMFORTABLY, SHOWS NO S/SX OF RESP DISTRESS OR SOB. HE IS OBTUNDED, OPENS EYES, AND IS BED RIDDEN. HE HAS A PORTEX 8 TRACH AND IS CONNECTED TO VENTILATOR, TOLERATING SETTINGS WELL. HE IS RECEIVING NEPRO AT 50 ML/HR, TOLERATING WELL, NO RESIDUAL. RECTAL TUBE IS INTACT, DRAINING STOOL. PT HAS DEBBIE PICC LINE AND R SUBCLAVIAN HD CATH, INTACT. EDEMA ON UPPER EXTREMITIES, LOWER EXTREMITIES CONTRACTED. SAFETY MEASURES HAVE BEEN IMPLEMENTED, CALL LIGHT IS WITHIN REACH, BED IS IN LOWEST AND LOCKED POSITION, SIDE RAILS ARE UP X2, WILL CONTINUE TO MONITOR FOR ANY CHANGES.
[2019-04-10 07:37] LABS: CALCIUM, SERUM 9.4 mg/dL (8.5-10.1); CREATININE 6.8 mg/dL (0.6-1.3); POTASSIUM 3.6 mmol/L (3.5-5.1)
[2019-04-10] MEDS: SUCRALFATE 1 G/10 ML UDC GT SCH ×2 (08:24→21:22)
[2019-04-10] MEDS: CHLORHEXIDINE GLUCONATE 15 ML UDC MM SCH ×2 (08:24→17:00)
[2019-04-10] MEDS: TRAMADOL HCL 50 MG TABLET GT SCH ×2 (08:28→17:00)
[2019-04-10] MEDS: VIT B CMPLX 3/FA/VIT C/BIOTIN 1 TAB TABLET PO SCH (08:28)
[2019-04-10] MEDS: LINEZOLID 600 MG TABLET PO SCH ×2 (08:29→21:22)
[2019-04-10] MEDS: ZINC SULFATE 220 MG CAPSULE GT SCH ×2 (08:29→17:00)
[2019-04-10] MEDS: DOCUSATE SODIUM 100 MG CAPSULE PO SCH ×2 (08:29→17:00)
[2019-04-10] MEDS: ASCORBIC ACID 500 MG TABLET GT SCH ×2 (08:30→17:00)
[2019-04-10] MEDS: LACTOBACILLUS RHAMNOSUS GG 1 EACH CAP.SPRINK GT SCH ×2 (08:30→17:00)
[2019-04-10] MEDS: MUPIROCIN OINT 2% 22 GM TUBE SCH ×2 (08:30→21:23)
[2019-04-10] MEDS: PROSOURCE / PROSTAT (PYXIS) 30 ML UDC GT SCH ×3 (08:30→17:00)
[2019-04-10] MEDS: HYDROCORTISONE SOD SUCCINATE 100 MG/2 ML VIAL IV SCH ×3 (08:30→17:00)
[2019-04-10] MEDS: SILVER SULFADIAZINE CREAM 25 GM TUBE TP SCH (08:32)
[2019-04-10] MEDS: PANTOPRAZOLE 40 MG/PACK PACK GT SCH (08:33)
--- NOTE | 2019-04-10 09:15 | NUR ---
PT IS NPO FOR REMOVAL OF HD CHEST CATH AND PLACEMENT OF TEMPORARY CATHETER, PER DR. EMMA BRIGHT
[2019-04-10] MEDS: DAKINS QUARTER STRENGTH (0.125%) 480 ML BOTTLE TOP SCH (09:23)
--- NOTE | 2019-04-10 10:55 | NUR ---
ATTEMPTED TO OBTAIN CONSENT FORM FROM PT DAUGHTER, PT WOULD LIKE TO SPEAK WITH DR EMMA QUICK. WILL FU WITH
[2019-04-10] MEDS ORDERED: FENTANYL PF 100MCG/2ML AMPUL ONE (14:46)
[2019-04-10] MEDS ORDERED: FAMOTIDINE/PF INJ 20 MG/2 ML VIAL IV ONE (14:46)
--- NOTE | 2019-04-10 14:50 | NUR ---
UNABLE TO CONTACT FAMILY TO OBTAIN CONSENT FOR PROCEDURE
--- NOTE | 2019-04-10 15:44 | NUR ---
PT HD SESSION HAS FINISHED. 2L REMOVED, VITALS STABLE. BP: 123/73 HR: 90 SPOKE WITH LORNA FORREST IN THE OR, CONSENT FORM HAS BEEN SIGNED BY THE DAUGHTER OVER THE PHONE.
[2019-04-10] MEDS ORDERED: HEPARIN SODIUM, PORCINE 1,000 UNIT/ML VIAL ONE (15:58)
[2019-04-10] MEDS ORDERED: LIDOCAINE HCL/PF 1% 30 ML SDV ONE (15:58)
--- NOTE | 2019-04-10 16:20 | NUR ---
PT HAS BEEN TRANSFERRED TO THE OR
--- NOTE | 2019-04-10 17:14 | NUR ---
UNABLE TO ADMIN 1700 MEDS, PT IS IN OR
--- NOTE | 2019-04-10 17:30 | NUR ---
PT RETURNED FROM OR IN STABLE CONDITION, CONTINUE PRE OP ORDERS
--- NOTE | 2019-04-10 17:32 | NUR ---
RT END OF THE SHIFT REPORT, PT. REC @0700 AM 59 Y OLD MALE NON RESPONSIVE TRACH'D PORTEX # 8 ON VENT WITH NOTED ( AC 14, 550, 40% +5 ) SETTINGS. EQUAL CHEST RISE NOTED B/S BILATERALLY RALES SUX'D FOR SMALL AMT OF WHITE THICK SECRETIONS, NO CHANGES NOR DISTRESS NOTED T/O DAY. TRANSFERRED TO OR AND BACK TO ROOM 101. PLACED ON SAME SETTINGS AND PT. STABLE. HME, CHIEF LIBRARIAN BRANCH OR DEPARTMENT DONE. TRACH CARE DONE. PT. VENT PLUGGED INTO RED OUT LET. AMBU BAG/EXTRA TRACH AT BEDSIDE. WILL CONTINUE TO MONITOR. REPORT WILL PASS TO PM SHIFT. Addendum: 04/10/19 at 1734 by SHIRLEY REID RT Amended: Links added.
[2019-04-10] MEDS: ATENOLOL 25 MG TABLET GT SCH (18:09)
--- NOTE | 2019-04-10 19:30 | NUR ---
PT, SUPINE, AWAKE, DAZED, BREATHING W TRACH/VENT, HEART RATE REGULAR, ANURIC, RECTAL TUBE DRAINING DARK GREEN LIQUID STOOL MINIMAL, G-TUBE W CONTINUOUS FEEDING, R NECK HD CATH SITE CLEAN AND DRY, DEBBIE PICC CLEAN, DRY, PATENT. PT W BILATERAL HEELS WOUND DRESSING, MINIMAL DRAINAGE NOTED. PT STABLE, DENIES PAIN. BED LOW, LOCKED POSITION W 2RAILS UP. REPOSITION PT FOR COMFORT, SKIN CARE PROVIDED.
--- NOTE | 2019-04-10 19:43 | NUR ---
RN CLOSING NOTES PT IS STABLE POST NEW HD CATH PLACEMENT. HE IS RESTING IN BED COMFORTABLY AT THIS TIME. NO ACUTE CHANGES OCCURRED THROUGHOUT THE SHIFT, VITAL SIGNS ARE STABLE, PT NEEDS HAVE BEEN MET. SAFETY MEASURES HAVE BEEN IMPLEMENTED, CALL LIGHT IS WITHIN REACH, BED IS IN LOWEST AND LOCKED POSITION, SIDE RAILS UP X2, PT HAS BEEN ENDORSED TO NIGHTSHIFT RN FOR CONTINUITY OF CARE.
[2019-04-11] VITALS (8 sets, daily range): BP systolic 122–144; BP diastolic 74–82
[2019-04-11] MEDS: BLOOD SUGAR DIAGNOSTIC 1 EACH STRIP IN SCH ×5 (00:29→23:03)
--- NOTE | 2019-04-11 06:45 | NUR ---
PT LAYING QUIETLY, CONTRACTURED IN ARMS AND LEGS, POSITION CHANGED FOR PRESSURE RELIEF. G-TUBE FEEDING CONTINUOUS, INTAKE WORKER ON, VENT SUPPORT PT RESPIRATION, PT TOLERATING WELL. RECTAL TUBE OUTPUT DARK BROWN PASTY STOOL COLLECTED. PT STABLE, NAD, DENIES PAIN. ORAL CARE DONE, BACK RUB PROVIDED, NEW LINEN AND GOWN APPLIED. PT RESTING QUIETLY, VS AT BASELINE.
[2019-04-11 06:59] LABS: CALCIUM, SERUM 9.2 mg/dL (8.5-10.1); CREATININE 5.4 mg/dL (0.6-1.3); POTASSIUM 3.4 mmol/L (3.5-5.1)
--- NOTE | 2019-04-11 07:18 | NUR ---
RN OPENING NOTES RECEIVED PATIENT RESTING IN BED COMFORTABLY, SHOWS NO S/SX OF RESP DISTRESS OR SOB. HE IS OBTUNDED, OPENS EYES, AND IS BED RIDDEN. HE IS ON MECHANICAL VENT WITH PORTEX 8 TRACH, TOLERATING VENT SETTINGS WELL. RECTAL TUBE IS INTACT AND DRAINING STOOL. PATIENT HAS MULTIPLE WOUNDS THROUGHOUT THE BODY, WILL ADDRESS ACCORDING TO WOUND CARE. NEPRO IS RUNNING AT 50 ML/HR, TOLERATING WELL, NO RESIDUAL. DEBBIE PICC LINE HAS BEEN FLUSHED AND IS PATENT, NEWLY PLACED TEMP HD CATH IS INTACT. SAFETY MEASURES HAVE BEEN IMPLEMENTED, SIDE RAILS UP X2, CALL LIGHT WITHIN REACH, BED IS IN LOWEST AND LOCKED POSITION, WILL CONTINUE TO MONITOR FOR ANY CHANGES
[2019-04-11] MEDS: LACTOBACILLUS RHAMNOSUS GG 1 EACH CAP.SPRINK GT SCH ×2 (08:21→16:30)
[2019-04-11] MEDS: SUCRALFATE 1 G/10 ML UDC GT SCH ×2 (08:22→20:00)
[2019-04-11] MEDS: ASCORBIC ACID 500 MG TABLET GT SCH ×2 (08:22→16:30)
[2019-04-11] MEDS: CHLORHEXIDINE GLUCONATE 15 ML UDC MM SCH ×2 (08:22→16:31)
[2019-04-11] MEDS: ZINC SULFATE 220 MG CAPSULE GT SCH ×2 (08:22→16:30)
[2019-04-11] MEDS: PANTOPRAZOLE 40 MG/PACK PACK GT SCH (08:22)
[2019-04-11] MEDS: VIT B CMPLX 3/FA/VIT C/BIOTIN 1 TAB TABLET PO SCH (08:22)
[2019-04-11] MEDS: LINEZOLID 600 MG TABLET PO SCH ×2 (08:22→20:00)
[2019-04-11] MEDS: SILVER SULFADIAZINE CREAM 25 GM TUBE TP SCH (08:23)
[2019-04-11] MEDS: TRAMADOL HCL 50 MG TABLET GT SCH ×3 (08:23→17:29)
[2019-04-11] MEDS: HYDROCORTISONE SOD SUCCINATE 100 MG/2 ML VIAL IV SCH ×3 (08:23→16:30)
[2019-04-11] MEDS: DAKINS QUARTER STRENGTH (0.125%) 480 ML BOTTLE TOP SCH (08:23)
[2019-04-11] MEDS: MUPIROCIN OINT 2% 22 GM TUBE SCH ×2 (08:24→20:00)
[2019-04-11] MEDS: PROSOURCE / PROSTAT (PYXIS) 30 ML UDC GT SCH ×3 (08:24→16:31)
[2019-04-11] MEDS: DOCUSATE SODIUM 100 MG CAPSULE PO SCH ×2 (08:24→16:30)
--- NOTE | 2019-04-11 11:50 | NUR ---
POTASSIUM LEVEL OF 3.4, SPOKE WITH DR. RUTLEDGE AND HE DOES NOT WANT TO REPLACE. NOTIFIED PHARMACY
[2019-04-11] MEDS: ATENOLOL 25 MG TABLET GT SCH (17:57)
[2019-04-11] MEDS: INSULIN REGULAR, HUMAN 100 UNIT/ML 3 ML VIAL SQ PRN (18:12)
--- NOTE | 2019-04-11 19:15 | NUR ---
RN CLOSING NOTES PATIENT IS RESTING IN BED COMFORTABLY AT THIS TIME. DOES NO SHOW ANY S/SX OF RESP DISTRESS OR PAIN. TOLERATING VENT SETTINGS WELL. NO ACUTE CHANGES OCCURRED THROUGHOUT THE DAY, VITAL SIGNS ARE STABLE, PT NEEDS HAVE BEEN MET. SAFETY MEASURES HAVE BEEN IMPLEMENTED, CALL LIGHT IS WITHIN REACH, BED IS IN LOWEST AND LOCKED POSITION, SIDE RAILS UP X2, PT HAS BEEN ENDORSED TO NIGHTSHIFT RN FOR CONTINUITY OF CARE.
--- NOTE | 2019-04-11 19:25 | NUR ---
TELE/RN notes, Patient in bed, resting comfortably at this time, No S/S of acute distress noted, respiration even and unlabored, No SOB noted. Trach intact, patent, connected to vent with prescribed settings, O2 saturation 98%. G-tube in place, patent connected to feeding as ordered, HOB elevated at all the time, No residual at this time, IV sites with no S/S of infections, Infiltrations. HD site with no s/s of bleeding/ infection, dressing intact. Rectal tube in place, Draining well. Kept clean and dry. Safety maintained, bed at the lowest locked position, Isolation precautions maintained, patient on tele monitoring with Sinus rhythm. Call light within Reach. Will continue to monitor patient as per plan of care.
[2019-04-11] MEDS: LEVOFLOXACIN (250MG) 250 MG TABLET PO SCH (19:59)
--- NOTE | 2019-04-11 20:19 | NUR ---
PT RECEIVED TRACH PORTEX 8 ON MECH VENT WITH NOTED SETTINGS. PT IS NON RESPONSIVE . SX'D AND LAVAGED NEEDED. INFRASTRUCTURE ADMINISTRATOR DONE. VENT ALARMS SET AND AUDIBLE. AMBU BAG AT BEDSIDE. TRACH SECURE. WILL CONTINUE TO MONITOR.
[2019-04-12] VITALS: BP 143/78
[2019-04-12 04:00] VITALS: BP 136/78
[2019-04-12] MEDS: BLOOD SUGAR DIAGNOSTIC 1 EACH STRIP IN SCH ×4 (05:38→23:36)
[2019-04-12 06:43] LABS: CALCIUM, SERUM 9.3 mg/dL (8.5-10.1); POTASSIUM 3.7 mmol/L (3.5-5.1)
[2019-04-12 06:50] LABS: GENTAMICIN,TROUGH 2.5 ug/ml (0.2-2.0)
--- NOTE | 2019-04-12 06:50 | NUR ---
LABS CALLED AT THIS TIME, RELAYED THAT PATIENT BUN IS CRITICALLY HIGH 144 AND GENTAMICIN TROUGH 2.5. CALLED BOO GARCIA, LEFT MESSAGE, WILL ENDORSE AM SHIFT NURSE TO FOLLOW UP. PATIENT IN NO ACUTE DISTRESS, PENDING HEMODIALYSIS,
--- NOTE | 2019-04-12 07:20 | NUR ---
TELE/RN OPENING NOTES RECEIVED PATIENT IN BED RESTING COMFORTABLY. NO PAIN OR ACUTE DISTRESS AT THIS TIME. RESPIRATION EVEN AND UNLABORED. PATIENT ABLE TO TOLERATE CURRENT VENT SETTINGS WELL. SKIN IS DRY WARM TO TOUCH. NOTED WITH RECTAL TUBE IS INTACT AND DRAINING STOOL. NEPRO IS RUNNING AT 50 ML/HR, TOLERATING WELL, NO RESIDUAL. DEBBIE PICC LINE HAS BEEN FLUSHED AND IS PATENT. NO S/S OF INFECTION OR INFILTRATION. HOB ELEVATED AT ALL TIMES. ALL NEEDS ANTICIPATED. CALL LIGHT WITHIN REACHED. SAFETY MAINTAINED. BED LOCKED AND IN LOWEST POSITION. REPOSITIONED Q2HRS. WILL CONTINUE TO MONITOR CLOSELY.
[2019-04-12 08:00] VITALS: BP 142/86
[2019-04-12] MEDS: CHLORHEXIDINE GLUCONATE 15 ML UDC MM SCH ×2 (08:08→17:03)
[2019-04-12] MEDS: HYDROCORTISONE SOD SUCCINATE 100 MG/2 ML VIAL IV SCH ×2 (08:08→17:03)
[2019-04-12] MEDS: SUCRALFATE 1 G/10 ML UDC GT SCH ×2 (08:08→20:56)
[2019-04-12] MEDS: ZINC SULFATE 220 MG CAPSULE GT SCH ×2 (08:08→17:03)
[2019-04-12] MEDS: DOCUSATE SODIUM 100 MG CAPSULE PO SCH ×2 (08:08→17:03)
[2019-04-12] MEDS: VIT B CMPLX 3/FA/VIT C/BIOTIN 1 TAB TABLET PO SCH (08:08)
[2019-04-12] MEDS: TRAMADOL HCL 50 MG TABLET GT SCH ×2 (08:09→17:04)
[2019-04-12] MEDS: PANTOPRAZOLE 40 MG/PACK PACK GT SCH (08:09)
[2019-04-12] MEDS: PROSOURCE / PROSTAT (PYXIS) 30 ML UDC GT SCH ×3 (08:09→17:04)
[2019-04-12] MEDS: LACTOBACILLUS RHAMNOSUS GG 1 EACH CAP.SPRINK GT SCH ×2 (08:09→17:03)
[2019-04-12] MEDS: LINEZOLID 600 MG TABLET PO SCH ×2 (08:09→20:56)
[2019-04-12] MEDS: ASCORBIC ACID 500 MG TABLET GT SCH ×2 (08:09→17:03)
[2019-04-12] MEDS: SILVER SULFADIAZINE CREAM 25 GM TUBE TP SCH (08:14)
[2019-04-12] MEDS: MUPIROCIN OINT 2% 22 GM TUBE SCH ×2 (08:15→20:56)
[2019-04-12] MEDS: DAKINS QUARTER STRENGTH (0.125%) 480 ML BOTTLE TOP SCH (08:16)
[2019-04-12] MEDS: IV NS 0.9% 250 ML IV PRN (08:49)
--- NOTE | 2019-04-12 10:41 | NUR ---
TELE/RN NOTES INFORMED DIALYSIS NURSE ON THE FLOOR IF PATIENT IS GOING TO HAVE DIALYSIS TODAY. ACCORDING TO HIM HE WILL FOLLOW UP WITH DR. SEWELL AND WILL LET ME KNOW SOON HE GETS A WORK FROM HIM. PATIENT CONTINUES TO REMAIN IN STABLE CONDITION. WILL CONTINUE TO MONITOR CLOSELY.
--- NOTE | 2019-04-12 11:14 | NUR ---
TELE/RN NOTES ACCORDING TO DIALYSIS NURSE DR. SEWELL IS AWARE OF THE CRITICAL LABS AND HE IS STILL DECIDING IF THE PATIENT WILL HAVE DIALYSIS TODAY. AWAITING FOR THE DECISION BEFORE ADMINISTERING GENTAMICIN. PATIENT CONTINUES TO REMAIN IN STABLE CONDITION. WILL CONTINUE TO MONITOR CLOSELY.
[2019-04-12 12:00] VITALS: BP 139/83
--- NOTE | 2019-04-12 13:21 | NUR ---
TELE/RN NOTES DR. SEWELL DECIDED PATIENT IS NOT GOING TO HAVE DIALYSIS TODAY. PATIENT CONTINUES TO REMAIN IN STABLE CONDITION WILL CONTINUE TO MONITOR CLOSELY.
--- NOTE | 2019-04-12 13:22 | NUR ---
TELE/RN NOTES CONFIRMED WITH PHARMACIST, PATIENT IS NOT GETTING GENTAMICIN TODAY. PATIENT CONTINUES TO REMAIN IN STABLE CONDITION. WILL CONTINUE TO MONITOR CLOSELY.
--- NOTE | 2019-04-12 14:05 | NUR ---
TELE/RN NOTES SPOKE TO [facility] PHARMACIST, ACCORDING TO HIM GIVE THE GENTAMICIN ORDER FOR TODAY. RECEIVED THE DOSE FROM [facility]. WILL ADMINISTER NOW.
[2019-04-12] MEDS: GENTAMICIN 80 MG in IV D5W 50 ML IV PRN (14:07)
[2019-04-12 16:00] VITALS: BP 121/73
[2019-04-12] MEDS: ATENOLOL 25 MG TABLET GT SCH (17:15)
--- NOTE | 2019-04-12 19:06 | NUR ---
TELE/RN CLOSING NOTES PATIENT CONTINUES TO REMAIN IN STABLE CONDITION THROUGHOUT THE SHIFT. PROVIDED COMFORT AND SAFETY. NO ACUTE DISTRESS AT THIS TIME. RESPIRATION EVEN AND UNLABORED. DEBBIE PICC LINE HAS BEEN FLUSHED AND IS PATENT. NO S/S OF INFECTION OR INFILTRATION. ALL TX WOUND TREATMENT WAS DONE. HOB ELEVATED AT ALL TIMES. ALL NEEDS ANTICIPATED. CALL LIGHT WITHIN REACHED. SAFETY MAINTAINED. BED LOCKED AND IN LOWEST POSITION. REPOSITIONED Q2HRS. WILL CONTINUE TO MONITOR CLOSELY. ENDORSED TO PM NURSE FOR DENNIS.
--- NOTE | 2019-04-12 19:25 | NUR ---
TELE/RN NOTES PATIENT IN BED, RESTING COMFORTABLY AT THIS TIME, NO S/S OF ACUTE DISTRESS NOTED, RESPIRATION EVEN AND UNLABORED, NO SOB NOTED, TRACH INTACT, PATENT, CONNECTED TO VENT WITH PRESCRIBED SETTINGS. G-TUBE IN PLACE, PATENT CONNECTED TO FEEDING ORDERED, HOB ELEVATED AT ALL THE TIME, NO RESIDUAL AT THIS TIME. DEBBIE PICC LINE, SITE WITH NO S/S OF INFECTION, INFILTRATION, DRESSING INTACT. RECTAL TUBE IN PLACE, PATENT, DRAINING WITH BROWN COLOR STOOLS. PATIENT ON TELE MONITORING WITH SINUS RHYTHM. SAFETY MAINTAINED, BED AT THE LOWEST LOCKED POSITION, ISOLATION PRECAUTIONS MAINTAINED. WILL CONTINUE TO MONITOR PATIENT PER PLAN OF CARE.
[2019-04-12] MEDS: NEPRO 1,000 ML BOTTLE GT PRN (19:38)
[2019-04-12 20:00] VITALS: BP 144/85
--- NOTE | 2019-04-12 20:28 | NUR ---
PT RECEIVED TRACH PORTEX 8 ON MECH VENT WITH NOTED SETTINGS. PT IS NON RESPONSIVE . SX'D AND LAVAGED NEEDED. LOADER MACHINE DONE. VENT ALARMS SET AND AUDIBLE. AMBU BAG AT BEDSIDE. TRACH SECURE. WILL CONTINUE TO MONITOR.
[2019-04-12] MEDS: INSULIN REGULAR, HUMAN 100 UNIT/ML 3 ML VIAL SQ PRN (23:46)
[2019-04-13] VITALS: BP 136/78
[2019-04-13 04:00] VITALS: BP 139/79
--- NOTE | 2019-04-13 05:30 | NUR ---
report given to [employer] for DENNIS.
[2019-04-13] MEDS: BLOOD SUGAR DIAGNOSTIC 1 EACH STRIP IN SCH ×4 (06:51→23:44)
--- NOTE | 2019-04-13 06:52 | NUR ---
TELE/RN NOTES PATIENT REMAINED IN BED, RESTING COMFORTABLY AT THIS TIME, NO S/S OF ACUTE DISTRESS NOTED, RESPIRATION EVEN AND UNLABORED, NO SOB NOTED, TRACH INTACT, PATENT, CONNECTED TO VENT WITH PRESCRIBED SETTINGS. G-TUBE IN PLACE, PATENT CONNECTED TO FEEDING ORDERED, HOB ELEVATED AT ALL THE TIME, NO RESIDUAL AT THIS TIME. DEBBIE PICC LINE, SITE WITH NO S/S OF INFECTION, INFILTRATION, DRESSING INTACT. RECTAL TUBE IN PLACE, PATENT, DRAINING WITH BROWN COLOR STOOLS. PATIENT ON TELE MONITORING WITH SINUS RHYTHM. ALL DUE MEDS GIVEN ORDERED, TREATMENTS RENDERED, PATIENT TOLERATED WELL. SAFETY MAINTAINED, BED AT THE LOWEST LOCKED POSITION, ISOLATION PRECAUTIONS MAINTAINED. WILL ENDORSE TO AM SHIFT NURSE FOR DENNIS
[2019-04-13 07:48] LABS: CALCIUM, SERUM 9.3 mg/dL (8.5-10.1); POTASSIUM 3.2 mmol/L (3.5-5.1)
[2019-04-13 08:00] VITALS: BP 134/82
[2019-04-13 08:01] LABS: CREATININE 8.2 mg/dL (0.6-1.3)
[2019-04-13] MEDS: SUCRALFATE 1 G/10 ML UDC GT SCH ×2 (09:14→20:29)
[2019-04-13] MEDS: PROSOURCE / PROSTAT (PYXIS) 30 ML UDC GT SCH ×3 (09:14→17:30)
[2019-04-13] MEDS: DOCUSATE SODIUM 100 MG CAPSULE PO SCH ×2 (09:14→17:30)
[2019-04-13] MEDS: VIT B CMPLX 3/FA/VIT C/BIOTIN 1 TAB TABLET PO SCH (09:14)
[2019-04-13] MEDS: LACTOBACILLUS RHAMNOSUS GG 1 EACH CAP.SPRINK GT SCH ×2 (09:14→17:30)
[2019-04-13] MEDS: ZINC SULFATE 220 MG CAPSULE GT SCH ×2 (09:14→17:30)
[2019-04-13] MEDS: PANTOPRAZOLE 40 MG/PACK PACK GT SCH (09:14)
[2019-04-13] MEDS: TRAMADOL HCL 50 MG TABLET GT SCH ×2 (09:15→17:27)
[2019-04-13] MEDS: ASCORBIC ACID 500 MG TABLET GT SCH ×2 (09:15→17:30)
[2019-04-13] MEDS: LINEZOLID 600 MG TABLET PO SCH ×2 (09:15→20:29)
[2019-04-13] MEDS: CHLORHEXIDINE GLUCONATE 15 ML UDC MM SCH ×2 (09:17→17:30)
[2019-04-13] MEDS: HYDROCORTISONE SOD SUCCINATE 100 MG/2 ML VIAL IV SCH ×2 (09:17→17:26)
[2019-04-13] MEDS: SILVER SULFADIAZINE CREAM 25 GM TUBE TP SCH (09:17)
[2019-04-13] MEDS: DAKINS QUARTER STRENGTH (0.125%) 480 ML BOTTLE TOP SCH (09:18)
[2019-04-13 12:00] VITALS: BP 145/91
[2019-04-13 16:00] VITALS: BP 124/76
[2019-04-13] MEDS: NEPRO 1,000 ML BOTTLE GT PRN (17:24)
[2019-04-13] MEDS: GENTAMICIN 80 MG in IV D5W 50 ML IV PRN (17:24)
[2019-04-13] MEDS: ATENOLOL 25 MG TABLET GT SCH (17:30)
--- NOTE | 2019-04-13 19:25 | NUR ---
TELE/RN NOTES PATIENT IN BED, RESTING COMFORTABLY AT THIS TIME, NO S/S OF ACUTE DISTRESS NOTED, RESPIRATION EVEN AND UNLABORED, NO SOB NOTED, TRACH INTACT, PATENT, CONNECTED TO VENT WITH PRESCRIBED SETTINGS. G-TUBE IN PLACE, PATENT CONNECTED TO FEEDING ORDERED, HOB ELEVATED AT ALL THE TIME, 20CC RESIDUAL AT THIS TIME. DEBBIE PICC LINE, SITE WITH NO S/S OF INFECTION, INFILTRATION, DRESSING INTACT. HD SITE ON RIGHT IJ AND OLD HD SITE ON RIGHT CHEST WALL WITH NO S/S OF INFECTION, DRESSING INTACT. RECTAL TUBE IN PLACE, PATENT, DRAINING WITH BROWN COLOR STOOLS. PATIENT ON TELE MONITORING WITH SINUS RHYTHM. PATIENT S/P HD TODAY WITH 2600CC OUT. SAFETY MAINTAINED, BED AT THE LOWEST LOCKED POSITION, ISOLATION PRECAUTIONS MAINTAINED. WILL CONTINUE TO MONITOR PATIENT PER PLAN OF CARE.
[2019-04-13 20:00] VITALS: BP_SYST 142; BP_DIAS 82; BP_DIAS 84
[2019-04-13] MEDS: LEVOFLOXACIN (250MG) 250 MG TABLET PO SCH (20:29)
[2019-04-13] MEDS: INSULIN REGULAR, HUMAN 100 UNIT/ML 3 ML VIAL SQ PRN (23:45)
[2019-04-14] VITALS: BP 128/77
[2019-04-14 04:00] VITALS: BP_SYST 136; BP_SYST 142; BP_DIAS 70
[2019-04-14] MEDS: BLOOD SUGAR DIAGNOSTIC 1 EACH STRIP IN SCH ×3 (05:48→18:52)
--- NOTE | 2019-04-14 06:45 | NUR ---
TELE/RN NOTES PATIENT REMAINED IN BED, RESTING COMFORTABLY AT THIS TIME, NO S/S OF ACUTE DISTRESS NOTED, RESPIRATION EVEN AND UNLABORED, NO SOB NOTED, TRACH INTACT, PATENT, CONNECTED TO VENT WITH PRESCRIBED SETTINGS. G-TUBE IN PLACE, PATENT CONNECTED TO FEEDING ORDERED, HOB ELEVATED AT ALL THE TIME, NO RESIDUAL AT THIS TIME. DEBBIE PICC LINE, SITE WITH NO S/S OF INFECTION, INFILTRATION, DRESSING INTACT. RECTAL TUBE IN PLACE, PATENT, DRAINING WITH BROWN COLOR STOOLS. PATIENT ON TELE MONITORING WITH SINUS RHYTHM. ALL DUE MEDS GIVEN ORDERED, TREATMENTS RENDERED, PATIENT TOLERATED WELL. SAFETY MAINTAINED, BED AT THE LOWEST LOCKED POSITION, ISOLATION PRECAUTIONS MAINTAINED. KEPT CLEAN AND DRY. WILL ENDORSE TO AM SHIFT NURSE FOR DENNIS
[2019-04-14 06:54] LABS: BASOPHILS # (AUTO) 0.1 /CMM (0.0-0.2); BASOPHILS % (AUTO) 0.3 % (0.0-2.0); EOSINOPHILS % (AUTO) 0.1 % (0.0-6.0); HEMATOCRIT 27 % (39-51); HEMOGLOBIN 8.4 g/dL (13.5-17.5); LYMPHOCYTES # (AUTO) 1.5 /CMM (0.8-4.8); MEAN CORPUSCULAR HGB CONC 32 g/dl (31.0-36.0); MEAN CORPUSCULAR VOLUME 83 fL (80-96); MONOCYTES # (AUTO) 1.4 /CMM (0.1-1.30); MONOCYTES % (AUTO) 5.4 % (2.0-12.0); NEUTROPHILS # (AUTO) 22.6 /CMM (1.8-8.9); NEUTROPHILS % (AUTO) 88.2 % (43.0-81.0); PLATELET COUNT (AUTO) 308 /CMM (150-450); WHITE BLOOD COUNT (AUTO) 25.6 K/uL (4.3-11.0)
--- NOTE | 2019-04-14 07:00 | NUR ---
TELE/RN OPENING NOTES RECEIVED REPORT AT BEDSIDE. PATIENT IN BED, RESTING COMFORTABLY AT THIS TIME, NO S/S OF ACUTE DISTRESS NOTED, RESPIRATION EVEN AND UNLABORED, NO SOB NOTED, TRACH INTACT, PATENT, CONNECTED TO VENT WITH PRESCRIBED SETTINGS. G-TUBE IN PLACE, PATENT CONNECTED TO FEEDING RUNNING 50 ML/HR, HOB ELEVATED. DEBBIE PICC LINE, SITE WITH NO S/S OF INFECTION, INFILTRATION, DRESSING INTACT. RIGHT IJ HD CATH. RECTAL TUBE IN PLACE, PATENT, DRAINING WITH BROWN COLOR STOOLS. PATIENT ON TELE MONITORING WITH SINUS RHYTHM HR 89. SAFETY MAINTAINED, BED AT THE LOWEST LOCKED POSITION, ISOLATION PRECAUTIONS MAINTAINED. WILL CONTINUE TO MONITOR PATIENT PER PLAN OF CARE.
[2019-04-14 07:24] LABS: ALBUMIN 2.3 g/dL (3.4-5.0); BILIRUBIN,TOTAL 0.4 mg/dL (0.2-1.0); CALCIUM, SERUM 8.5 mg/dL (8.5-10.1); CREATININE 6.5 mg/dL (0.6-1.3); MAGNESIUM 2.4 mg/dL (1.8-2.4); PHOSPHORUS 4.7 mg/dL (2.5-4.9); POTASSIUM 3.5 mmol/L (3.5-5.1); TOTAL PROTEIN, SERUM 5.9 g/dL (6.4-8.2)
--- NOTE | 2019-04-14 07:40 | NUR ---
RT Pt received trached on mechanical ventilation with noted settings. Pt is awake and responds to stimuli when suctioned. Vent is plugged into red outlet. No SOB or respiratory distress noted at this time. Addendum: 04/14/19 at 1043 by TYRESE ROWE RT Amended: Links added.
[2019-04-14 08:00] VITALS: BP 130/79
[2019-04-14] MEDS: ZINC SULFATE 220 MG CAPSULE GT SCH ×2 (08:32→17:34)
[2019-04-14] MEDS: TRAMADOL HCL 50 MG TABLET GT SCH ×2 (08:32→17:35)
[2019-04-14] MEDS: VIT B CMPLX 3/FA/VIT C/BIOTIN 1 TAB TABLET PO SCH (08:32)
[2019-04-14] MEDS: CHLORHEXIDINE GLUCONATE 15 ML UDC MM SCH ×2 (08:32→17:34)
[2019-04-14] MEDS: SUCRALFATE 1 G/10 ML UDC GT SCH ×2 (08:32→20:16)
[2019-04-14] MEDS: ASCORBIC ACID 500 MG TABLET GT SCH ×2 (08:33→17:35)
[2019-04-14] MEDS: LINEZOLID 600 MG TABLET PO SCH ×2 (08:33→20:16)
[2019-04-14] MEDS: PANTOPRAZOLE 40 MG/PACK PACK GT SCH (08:33)
[2019-04-14] MEDS: HYDROCORTISONE SOD SUCCINATE 100 MG/2 ML VIAL IV SCH ×2 (08:33→17:34)
[2019-04-14] MEDS: LACTOBACILLUS RHAMNOSUS GG 1 EACH CAP.SPRINK GT SCH ×2 (08:33→17:35)
[2019-04-14] MEDS: DOCUSATE SODIUM 100 MG CAPSULE PO SCH ×2 (08:33→17:34)
[2019-04-14] MEDS: DAKINS QUARTER STRENGTH (0.125%) 480 ML BOTTLE TOP SCH (08:34)
[2019-04-14] MEDS: SILVER SULFADIAZINE CREAM 25 GM TUBE TP SCH (08:34)
[2019-04-14] MEDS: PROSOURCE / PROSTAT (PYXIS) 30 ML UDC GT SCH ×3 (08:35→17:35)
--- NOTE | 2019-04-14 10:36 | NUR ---
FUDGER NOTE PER DR. ART PT WILL GET HD TOMORROW 04/15/19.
[2019-04-14 12:00] VITALS: BP 129/74
[2019-04-14 16:00] VITALS: BP 119/77
[2019-04-14] MEDS: ATENOLOL 25 MG TABLET GT SCH (17:35)
--- NOTE | 2019-04-14 19:24 | NUR ---
TELE/RN CLOSING NOTES PATIENT REMAINED IN BED, RESTING COMFORTABLY AT THIS TIME, NO S/S OF ACUTE DISTRESS NOTED, RESPIRATION EVEN AND UNLABORED, NO SOB NOTED, TRACH INTACT, PATENT, CONNECTED TO VENT WITH PRESCRIBED SETTINGS. G-TUBE IN PLACE, PATENT CONNECTED TO FEEDING ORDERED, NO RESIDUAL VOLUME. HOB ELEVATED AT ALL THE TIME. RECTAL TUBE IN PLACE, PATENT, DRAINING WITH BROWN COLOR STOOLS. PATIENT ON TELE MONITORING WITH SINUS RHYTHM. ALL DUE MEDS GIVEN ORDERED, WOUND TREATMENTS DONE. SAFETY MAINTAINED, BED AT THE LOWEST LOCKED POSITION, ISOLATION PRECAUTIONS MAINTAINED. KEPT CLEAN AND DRY. ENDORSED TO PM SHIFT NURSE FOR DENNIS
--- NOTE | 2019-04-14 19:25 | NUR ---
rn initial notes: received report from lor arboleda. pt on isolation, mrsa nares esbl wound, urine. ppe utilized. pt mech vent trache dependent, ambu bag at bed side, clinical alarms checked and audible. vent setting as follows: portex #8, ac 14, tv 550, fio2 40% peep 0. pt is obtunded, open eys spontaneously. pt has peg tube in placed. left upper arm picc line. right ij temporary hd access. s/p hd on 04/13 with 2600ml output. pt has rectal tube in placed. noted to be contracted ble. ble and bue offloaded on pillows. on tele monitoring sr hr 80. safety precautions for fall initiated, call light in reach, will continue monitoring pt.
--- NOTE | 2019-04-14 19:57 | NUR ---
rn notes/gtube: abdomen soft to touch, with active bowel sound heard upon auscultation. pt has gtube in placed, no residual obtained.above feeding completed, will administer a new feeding bag. aspiration precaution initiated, kept hob 30 degree. picc line: pt received with katty picc line with tlc. all port patent and flushing well, with good blood return noted. placed on hl. Addendum: 04/14/19 at 2000 by DEVONTE VÁZQUEZ RN correction of entry for picc line: left upper arm picc line, not katty picc line
[2019-04-14 20:00] VITALS: BP 147/83
--- NOTE | 2019-04-14 20:09 | NUR ---
RT PT RECEIVED ON [facility] VENT WITH NOTED SETTING. PT TOLERATING SETTING WELL. TRACH PATENT AND SECURE. NO SOB OR DISTRESS NOTED. VENT TO RED OUTLET. ALARMS SET AND AUDIBLE. DISCONNECT ALARM VERIFIED. CONTINUE CURRENT CARE PLAN AND MONITOR PT FOR ANY CHANGES. Addendum: 04/14/19 at 2012 by DELMA PATEL RT Amended: Links added.
[2019-04-14] MEDS: NEPRO 1,000 ML BOTTLE GT PRN (20:16)
[2019-04-15] VITALS: BP 145/82
[2019-04-15] MEDS: BLOOD SUGAR DIAGNOSTIC 1 EACH STRIP IN SCH ×4 (00:19→17:02)
[2019-04-15] MEDS: INSULIN REGULAR, HUMAN 100 UNIT/ML 3 ML VIAL SQ PRN ×2 (00:20→05:44)
[2019-04-15 04:00] VITALS: BP 141/81
--- NOTE | 2019-04-15 05:00 | NUR ---
RN NOTES: ASSISTED BLEACH PLANT OPERATOR IN PROVIDING BED BATH TO PT, ALL LINENS COMPLETELY CHANGE, WOUND CARE PERFORMED ORDERED
[2019-04-15 06:42] LABS: CALCIUM, SERUM 8.6 mg/dL (8.5-10.1); POTASSIUM 3.2 mmol/L (3.5-5.1)
--- NOTE | 2019-04-15 06:45 | NUR ---
RN CLOSING NOTES: PT IN BED, REMAINS OBTUNDED, TOLERATED VENT SETTING WELL. CLINICAL ALARMS REMAINS AUDIBLE. G-TUBE FEEDING REMAINS INFUSING WITH NEPHRO AT 50ML/HR. LEFT UPPER ARM PICC LINE REMAINS PATENT AND FLUSHING WELL, ON HL. ALL PORTS WITH GOOD BLOOD RETURN. FLEXI-SEAL REMAINS IN PLACED. VS REMAINS STABLE, NEEDS ATTENDED. PPE UTILIZED FOR ISOLATION. SAFETY PRECAUTIONS FOR FALL REMAINS ENGAGED, CALL LIGHT IN REACH, WILL ENDORSE TO DAY RN FOR CONTINUITY OF CARE.
[2019-04-15 06:52] LABS: CREATININE 7.7 mg/dL (0.6-1.3)
--- NOTE | 2019-04-15 07:52 | NUR ---
RT Pt rec'd trached on mechanical ventilation with charted settings. Pt is awake and responds to stimuli when suctioned. Vent is plugged into red outlet. bvm at [facility]. No SOB or respiratory distress noted at this time. will continue to monitor. Addendum: 04/15/19 at 0753 by HAIM GODWIN RT Amended: Links added.
[2019-04-15 08:00] VITALS: BP 139/80
[2019-04-15] MEDS: SILVER SULFADIAZINE CREAM 25 GM TUBE TP SCH (09:00)
[2019-04-15] MEDS: DAKINS QUARTER STRENGTH (0.125%) 480 ML BOTTLE TOP SCH (09:00)
[2019-04-15] MEDS: CHLORHEXIDINE GLUCONATE 15 ML UDC MM SCH ×2 (09:00→16:57)
[2019-04-15] MEDS: ASCORBIC ACID 500 MG TABLET GT SCH ×2 (11:51→16:56)
[2019-04-15] MEDS: LINEZOLID 600 MG TABLET PO SCH ×2 (11:51→20:55)
[2019-04-15] MEDS: VIT B CMPLX 3/FA/VIT C/BIOTIN 1 TAB TABLET PO SCH (11:51)
[2019-04-15] MEDS: LACTOBACILLUS RHAMNOSUS GG 1 EACH CAP.SPRINK GT SCH ×2 (11:52→16:56)
[2019-04-15] MEDS: SUCRALFATE 1 G/10 ML UDC GT SCH ×2 (11:52→20:54)
[2019-04-15] MEDS: ZINC SULFATE 220 MG CAPSULE GT SCH ×2 (11:52→16:55)
[2019-04-15] MEDS: DOCUSATE SODIUM 100 MG CAPSULE PO SCH ×2 (11:52→16:56)
[2019-04-15] MEDS: HYDROCORTISONE SOD SUCCINATE 100 MG/2 ML VIAL IV SCH ×2 (11:52→16:57)
[2019-04-15] MEDS: TRAMADOL HCL 50 MG TABLET GT SCH ×2 (11:52→16:56)
[2019-04-15] MEDS: PANTOPRAZOLE 40 MG/PACK PACK GT SCH (11:53)
[2019-04-15] MEDS: PROSOURCE / PROSTAT (PYXIS) 30 ML UDC GT SCH ×3 (11:54→16:55)
[2019-04-15 12:00] VITALS: BP 112/71
--- NOTE | 2019-04-15 12:00 | NUR ---
rn note morning meds given late because pt was having HD.
[2019-04-15 16:00] VITALS: BP 144/79
[2019-04-15] MEDS: NEPRO 1,000 ML BOTTLE GT PRN (16:57)
[2019-04-15] MEDS: ATENOLOL 25 MG TABLET GT SCH (17:00)
--- NOTE | 2019-04-15 18:42 | NUR ---
rn note gentamicin level 5.2, hold off dose for today. pt had HD today, 2L out, tolerated well.
--- NOTE | 2019-04-15 19:30 | NUR ---
CHEMICAL MILLING PROCESSOR OPENING NOTES RECEIVED PATIENT WITH NO DISTRESS AT THIS MOMENT. PATIENT IS ON VENT TOLERATING WELL. AC AT 14, TV 550, FI02 40% WITH NO PEEP. PATIENT HAS A LT PICC LINE. PATIENT WITH GTUBE ON NEPRO RUNNING AT 50ML/HR TOLERATING WELL. PATIENT HAS A RIGHT IJ HD CATHETER WITH NO SIGN OF COMPLICATIONS AT THE MOMENT. PATIENT HAS MULTIPLE WOUNDS WILL APPLY WOUND CARE. PATIENT NON NON VERBAL NON AMBULATORY. ALL SAFETY PRECAUTIONS ADMINISTERED. BED LOCKED IN LOW POSITION, SIDE RAILS UP X3 AND VENT OUTLETS PLUGGED IN RED OUTLETS. WILL CONTINUE TO MONITOR.
[2019-04-15 20:00] VITALS: BP 141/83
[2019-04-15] MEDS: LEVOFLOXACIN (250MG) 250 MG TABLET PO SCH (20:55)
[2019-04-16] VITALS: BP 120/78
[2019-04-16] MEDS: BLOOD SUGAR DIAGNOSTIC 1 EACH STRIP IN SCH ×5 (00:07→23:31)
[2019-04-16 04:00] VITALS: BP 135/77
--- NOTE | 2019-04-16 07:23 | NUR ---
HYDRAULIC MODELING ENGINEER CLOSING NOTE PATIENT IN BED WITH NO SIGNS OF DISTRESS, TOLERATION VENT WELL, AND GTUBE WITH LITTLE TO NO RESIDUAL. WOUND CARE HAS BEEN APPLIED. AND ALL SAFETY PRECAUTIONS APPLIED. ENDORSED PATIENT TO MORNING NURSE BOAZ.
--- NOTE | 2019-04-16 07:55 | NUR ---
RN OPENING NOTES PT TOLERATING VENT SETTINGS WELL. REPORT RECEIVED FROM BRAKE ADJUSTER RN. BED IS LOCKED AND IN LOWEST POSITION WITH HOB ELEVATED. G-TUBEW FEEDING RUNNING ORDERED. WILL CONTINUE TO MONITOR.
[2019-04-16 08:00] VITALS: BP 137/81
[2019-04-16] MEDS: LINEZOLID 600 MG TABLET PO SCH ×2 (09:36→22:03)
[2019-04-16] MEDS: VIT B CMPLX 3/FA/VIT C/BIOTIN 1 TAB TABLET PO SCH (09:36)
[2019-04-16] MEDS: SUCRALFATE 1 G/10 ML UDC GT SCH ×2 (09:36→22:03)
[2019-04-16] MEDS: HYDROCORTISONE SOD SUCCINATE 100 MG/2 ML VIAL IV SCH ×2 (09:36→16:54)
[2019-04-16] MEDS: LACTOBACILLUS RHAMNOSUS GG 1 EACH CAP.SPRINK GT SCH ×2 (09:36→16:54)
[2019-04-16] MEDS: TRAMADOL HCL 50 MG TABLET GT SCH ×2 (09:36→16:55)
[2019-04-16] MEDS: PANTOPRAZOLE 40 MG/PACK PACK GT SCH (09:36)
[2019-04-16] MEDS: DOCUSATE SODIUM 100 MG CAPSULE PO SCH ×2 (09:36→16:54)
[2019-04-16] MEDS: CHLORHEXIDINE GLUCONATE 15 ML UDC MM SCH ×2 (09:36→16:54)
[2019-04-16] MEDS: ZINC SULFATE 220 MG CAPSULE GT SCH ×2 (09:36→16:54)
[2019-04-16] MEDS: ASCORBIC ACID 500 MG TABLET GT SCH ×2 (09:36→16:54)
[2019-04-16] MEDS: PROSOURCE / PROSTAT (PYXIS) 30 ML UDC GT SCH ×3 (09:39→16:55)
[2019-04-16] MEDS: SILVER SULFADIAZINE CREAM 25 GM TUBE TP SCH (09:39)
[2019-04-16] MEDS: DAKINS QUARTER STRENGTH (0.125%) 480 ML BOTTLE TOP SCH (09:39)
[2019-04-16 12:00] VITALS: BP 120/66
[2019-04-16 16:00] VITALS: BP 131/77
[2019-04-16] MEDS: GENTAMICIN 80 MG in IV D5W 50 ML IV PRN (16:55)
[2019-04-16] MEDS: ATENOLOL 25 MG TABLET GT SCH (18:10)
[2019-04-16] MEDS: NEPRO 1,000 ML BOTTLE GT PRN (18:45)
--- NOTE | 2019-04-16 19:13 | NUR ---
RN CLOSING NOTES PT TOLERATING VENT SETTINGS WELL. REPORT GIVEN TO DROSS PULLER RN. BED IS LOCKED AND IN LOWEST POSITION WITH HOB ELEVATED. G-TUBE FEEDING RUNNING ORDERED NEPRO AT 50 MLS/HR NO RESIDUAL. WOUND TX DONE DURING SHIFT. WILL ENDORSE CONTINUATION OF CARE TO DROSS PULLER RN.
[2019-04-16 20:00] VITALS: BP 110/69
[2019-04-17] VITALS (8 sets, daily range): BP systolic 116–137; BP diastolic 68–77
--- NOTE | 2019-04-17 01:26 | NUR ---
RT Pt trach remains on [facility] vent t/o the night. No resp distress noted. Trach secure and patent. Addendum: 04/17/19 at 0128 by RICHY MADRIGAL RT Amended: Links added.
[2019-04-17] MEDS: BLOOD SUGAR DIAGNOSTIC 1 EACH STRIP IN SCH ×4 (06:17→23:49)
[2019-04-17 06:30] LABS: CALCIUM, SERUM 8.5 mg/dL (8.5-10.1); MAGNESIUM 2.2 mg/dL (1.8-2.4); PHOSPHORUS 4.8 mg/dL (2.5-4.9); POTASSIUM 3.5 mmol/L (3.5-5.1)
--- NOTE | 2019-04-17 07:30 | NUR ---
RN OPENING NOTES RECEIVED PATIENT IN BED RESTING. PATIENT IS OBTUNDED, VENT DEPENDENT, MAINTAINED VENT SETTINGS ORDERED. NOT IN NAY FORM OF DISTRESS. NO SOB. NO S/S OF PAIN OR DISCOMFORT AT THIS TIME.IV ACCESS INTACT AND PATENT. R IJ HD CATH NOTED WITH C/D/I DRESSING. GTUBE IN PLACE, FEEDING @ 50ML/HR. NOTED WITH FLEXISEAL, BROWN LIQUID STOOL. NEEDS ATTENDED. KEPT PATIENT SAFE AND COMFORTABLE. BED IN LOW/LOCKED POSTION SIDERAILS UP, BED ALARM ON. WILL MONIOTR ACCORDINGLY.
[2019-04-17 07:58] LABS: BASOPHILS # (AUTO) 0.1 /CMM (0.0-0.2); BASOPHILS % (AUTO) 0.4 % (0.0-2.0); EOSINOPHILS % (AUTO) 0.3 % (0.0-6.0); HEMATOCRIT 26 % (39-51); HEMOGLOBIN 7.8 g/dL (13.5-17.5); LYMPHOCYTES % (AUTO) 2.9 % (20.0-44.0); MEAN CORPUSCULAR HGB CONC 30 g/dl (31.0-36.0); MEAN CORPUSCULAR VOLUME 84 fL (80-96); NEUTROPHILS # (AUTO) 30.2 /CMM (1.8-8.9); NEUTROPHILS % (AUTO) 90.4 % (43.0-81.0); PLATELET COUNT (AUTO) 229 /CMM (150-450); RED BLOOD CELL COUNT(AUTO) 3.03 MIL/uL (4.5-6.0)
[2019-04-17 08:01] LABS: WHITE BLOOD COUNT (AUTO) 33.3 K/uL (4.3-11.0)
--- NOTE | 2019-04-17 08:24 | NUR ---
RN NOTES: WBC CRITICAL LAB RESULT WBC=33.3. DR RUTLEDGE MADE AWARE.
[2019-04-17] MEDS: TRAMADOL HCL 50 MG TABLET GT SCH ×2 (08:38→16:08)
[2019-04-17] MEDS: LACTOBACILLUS RHAMNOSUS GG 1 EACH CAP.SPRINK GT SCH ×2 (08:38→16:08)
[2019-04-17] MEDS: DOCUSATE SODIUM 100 MG CAPSULE PO SCH ×3 (08:39→17:00)
[2019-04-17] MEDS: ZINC SULFATE 220 MG CAPSULE GT SCH ×2 (08:39→16:08)
[2019-04-17] MEDS: VIT B CMPLX 3/FA/VIT C/BIOTIN 1 TAB TABLET PO SCH (08:39)
[2019-04-17] MEDS: ASCORBIC ACID 500 MG TABLET GT SCH ×2 (08:39→16:08)
[2019-04-17] MEDS: CHLORHEXIDINE GLUCONATE 15 ML UDC MM SCH ×2 (08:40→16:09)
[2019-04-17] MEDS: PANTOPRAZOLE 40 MG/PACK PACK GT SCH (08:40)
[2019-04-17] MEDS: SUCRALFATE 1 G/10 ML UDC GT SCH ×2 (08:40→20:14)
[2019-04-17] MEDS: LINEZOLID 600 MG TABLET PO SCH ×2 (08:40→20:14)
[2019-04-17] MEDS: HYDROCORTISONE SOD SUCCINATE 100 MG/2 ML VIAL IV SCH (08:41)
[2019-04-17] MEDS: PROSOURCE / PROSTAT (PYXIS) 30 ML UDC GT SCH ×3 (08:42→16:07)
[2019-04-17] MEDS: SILVER SULFADIAZINE CREAM 25 GM TUBE TP SCH (09:00)
[2019-04-17] MEDS: DAKINS QUARTER STRENGTH (0.125%) 480 ML BOTTLE TOP SCH (09:00)
[2019-04-17 09:15] LABS: LYMPHOCYTES % (MANUAL) 4 % (16-48); MONOCYTES % (MANUAL) 5 % (0-11.0); NEUTROPHILS % (MANUAL) 91 (42-76)
[2019-04-17] MEDS: ATENOLOL 25 MG TABLET GT SCH (17:09)
--- NOTE | 2019-04-17 18:35 | NUR ---
RT END OF THE SHIFT REPORT, PT. REC @0700 AM 59 Y OLD MALE NON RESPONSIVE TRACH'D PORTEX # 8 ON VENT WITH NOTED SETTINGS. EQUAL CHEST RISE NOTED B/S BILATERALLY RALES SUX'D FOR MINIMAL AMT OF WHITE THICK SECRETIONS, NO CHANGES T/O DAY. HME, COMMUNICATIONS REPRESENTATIVE DONE. TRACH CARE DONE. PT. VENT PLUGGED INTO RED OUT LET. AMBU BAG/EXTRA TRACH AT BEDSIDE. WILL CONTINUE TO MONITOR. REPORT WILL PASS TO PM SHIFT. Addendum: 04/17/19 at 1835 by SHIRLEY REID RT Amended: Links added.
--- NOTE | 2019-04-17 19:18 | NUR ---
RN CLOSING NOTES PATIENT IN STABLE CONDITION. ALL NEEDS ATTENDED AND PROVIDED. ALL DUE MEDS GIVEN ORDERED. TURNED AND REPOSITIONED PATIENT EVERY 2HRS NEEDED. WOUND CARE RENDERED. KEPT PATIENT SAFE AND COMFORTABLE. BED IN LOW/LOCKED POSITION, SIDERAILS UP, CALL LIGHT IN REACH. ENDORSED TO NIGHT RN FOR DENNIS.
--- NOTE | 2019-04-17 19:30 | NUR ---
CHIPPING MACHINE OPERATOR OPENING NOTES RECEIVED PATIENT A/O X1 OBTUNDED AND NON VERBAL. PATIENT IS ON VENT TOLERATING WELL. PORTEX #8, AC 14, TV 550, FI02 40% WITH NO PEEP. O2 SAT AT 100%. PATIENT IN THE MONITOR WITH SINUS RHYTHM HR OD 94. PATIENT HAS GTUBE PATENT WITH NEPRO RUNNING AT 50ML/HR WITH LITTLE TO NO RESIDUAL. PATIENT IS ANURIC WITH A RECTAL FELX SEAL WITH 100ML REPORTED IN BAG BEG OF SHIFT. PATIENT HAS , MULTIPLE WOUNDS AND WILL APPLY WOUND CARE ORDERED. PATIENT HAS A DEBBIE PICC LINE H/L AND A TEMPORARY IJ HD CATH. PATIENT IS RESTED IN BED NO SIGNS OF ANY DISTRESS. ALL SAFETY PRECAUTIONS APPLIED. BED LOCKED IN LOW POSITION, SIDE RAILS UP X2, AND VENT PLUGGED IN TO RED OUTLET. WILL CONTINUE TO MONITOR
[2019-04-17] MEDS: LEVOFLOXACIN (250MG) 250 MG TABLET PO SCH (20:14)
--- NOTE | 2019-04-17 20:14 | NUR ---
RT PT RECEIVED ON [facility] VENT WITH NOTED SETTING. PT TOLERATING SETTING WELL. NO SOB OR DISTRESS NOTED THIS TIME. TRACH PATENT AND SECURE. VENT TO RED OUTLET. ALARMS SET AND AUDIBLE. RICKY BHAKTA AT [facility]. WILL CONTINUE TO MONITOR. Addendum: 04/17/19 at 2016 by DELMA PATEL RT Amended: Links added.
[2019-04-17] MEDS: NEPRO 1,000 ML BOTTLE GT PRN (21:36)
[2019-04-18] VITALS: BP 115/70
[2019-04-18 04:00] VITALS: BP_SYST 115; BP_SYST 148; BP_SYST 98; BP_DIAS 69; BP_DIAS 70
[2019-04-18 06:53] LABS: BASOPHILS % (AUTO) 0.2 % (0.0-2.0); EOSINOPHILS % (AUTO) 2.9 % (0.0-6.0); HEMATOCRIT 24 % (39-51); HEMOGLOBIN 7.3 g/dL (13.5-17.5); LYMPHOCYTES # (AUTO) 1.3 /CMM (0.8-4.8); LYMPHOCYTES % (AUTO) 5.6 % (20.0-44.0); MEAN CORPUSCULAR HGB CONC 31 g/dl (31.0-36.0); MEAN CORPUSCULAR VOLUME 84 fL (80-96); MONOCYTES # (AUTO) 2.1 /CMM (0.1-1.30); MONOCYTES % (AUTO) 8.9 % (2.0-12.0); NEUTROPHILS # (AUTO) 19.6 /CMM (1.8-8.9); NEUTROPHILS % (AUTO) 82.4 % (43.0-81.0); PLATELET COUNT (AUTO) 219 /CMM (150-450); RED BLOOD CELL COUNT(AUTO) 2.83 MIL/uL (4.5-6.0); WHITE BLOOD COUNT (AUTO) 23.8 K/uL (4.3-11.0)
--- NOTE | 2019-04-18 07:15 | NUR ---
RN INITIAL NOTE PATIENT IN BED, OBTUNDED. ON VENT, SATING WELL AT 100%. ON TELE MONITOR, SR. HAS FLEXISEAL. ON NEPRO AT 50 ML/HR. HAS A LEFT UA PICC AND RIGHT IJ TEMPORARY CATH FOR HD. NO SIGNS OF ANY PAIN NOR SOB AT THIS TIME. BED LOCKED AND IN LOW POSITION. WILL CONTINUE TO MONITOR
[2019-04-18] MEDS: BLOOD SUGAR DIAGNOSTIC 1 EACH STRIP IN SCH ×3 (07:37→17:56)
--- NOTE | 2019-04-18 07:39 | NUR ---
RT Pt received trached on the vent with noted settings. Pt is awake and responds to stimuli when suctioned. Vent is plugged into red outlet. No SOB or respiratory distress noted at this time. Addendum: 04/18/19 at 0907 by TYRESE ROWE RT Amended: Links added.
--- NOTE | 2019-04-18 07:40 | NUR ---
TRANSITIONS MANAGER NOTE PATIENT ON VENT TOLERATING WELL, GTUBE FEEDINGS WITH NEPRO AT 50ML/CC WITH NO RESIDUAL. FLEXI SEAL INTACT. ALL SAFETY PRECAUTIONS APPLIED. VENT CONNECTED TO RED OUTLET. ENDORSED PATIENT TO MORNING SHIFT NURSE.
[2019-04-18 08:00] VITALS: BP 114/61
[2019-04-18] MEDS: LINEZOLID 600 MG TABLET PO SCH ×2 (08:19→21:47)
[2019-04-18] MEDS: VIT B CMPLX 3/FA/VIT C/BIOTIN 1 TAB TABLET PO SCH (08:19)
[2019-04-18] MEDS: LACTOBACILLUS RHAMNOSUS GG 1 EACH CAP.SPRINK GT SCH ×2 (08:19→17:34)
[2019-04-18] MEDS: ASCORBIC ACID 500 MG TABLET GT SCH ×2 (08:20→17:39)
[2019-04-18] MEDS: ZINC SULFATE 220 MG CAPSULE GT SCH ×2 (08:20→17:39)
[2019-04-18] MEDS: SUCRALFATE 1 G/10 ML UDC GT SCH ×2 (08:20→21:47)
[2019-04-18] MEDS: PROSOURCE / PROSTAT (PYXIS) 30 ML UDC GT SCH ×3 (08:20→17:40)
[2019-04-18] MEDS: TRAMADOL HCL 50 MG TABLET GT SCH ×2 (08:20→17:35)
[2019-04-18] MEDS: PANTOPRAZOLE 40 MG/PACK PACK GT SCH (08:20)
[2019-04-18] MEDS: DOCUSATE SODIUM 100 MG CAPSULE PO SCH ×2 (08:20→17:34)
[2019-04-18] MEDS: CHLORHEXIDINE GLUCONATE 15 ML UDC MM SCH ×2 (08:20→17:32)
[2019-04-18 09:15] LABS: CALCIUM, SERUM 8.6 mg/dL (8.5-10.1)
[2019-04-18 09:16] LABS: CREATININE 7.6 mg/dL (0.6-1.3)
[2019-04-18] MEDS: DAKINS QUARTER STRENGTH (0.125%) 480 ML BOTTLE TOP SCH (09:32)
[2019-04-18] MEDS: SILVER SULFADIAZINE CREAM 25 GM TUBE TP SCH (09:33)
[2019-04-18 12:00] VITALS: BP 125/72
--- NOTE | 2019-04-18 14:46 | NUR ---
RN NOTE PER PHARMACY, ADMINISTER GENTAMICIN AFTER HD. HD DONE, NO FLUIDS OUT. GENTAMICIN RANDOM LEVEL IS 5. OK TO ADMINISTER
[2019-04-18] MEDS: GENTAMICIN 80 MG in IV D5W 50 ML IV PRN (14:49)
[2019-04-18] MEDS: HYDROGEL DRESSING 90 GM TUBE TP SCH (14:50)
[2019-04-18 16:00] VITALS: BP 132/75
[2019-04-18] MEDS: ATENOLOL 25 MG TABLET GT SCH (17:34)
--- NOTE | 2019-04-18 19:03 | NUR ---
RN CLOSING NOTE PATIENT IN BED, OBTUNDED. ON VENT, SATING WELL AT 100%. ON TELE MONITOR, SR. HAS FLEXISEAL. HD TODAY NO FLUIDS OUT. ON NEPRO AT 50 ML/HR. NO RESIDUAL. HAS A LEFT UA PICC TKO. WOUND TX DONE. ALL MEDS GIVEN. ALL NEEDS MET. BED LOCKED AND IN LOWEST POSITION. WILL ENDORSE TO NOC SHIFT FOR DENNIS
--- NOTE | 2019-04-18 20:01 | NUR ---
RADIATION PHYSICIST INITIAL NOTE PATIENT OBTUNDED AND NON VERBAL. VDRF. P #8, AC 14, TV 550, FI02 40% WITH NO PEEP. O2 SAT AT 100%. SR-ST 119 [address] R[address]ING. GT IN PLACE, NEPRO @ 50ML/HR NO RESIDUAL. -GI ANURIC WITH A RECTAL FELX SEAL. SKIN ON GOING TX FOR MULTIPLE WOUNDS . IV SITE- DEBBIE PICC LINE H/L AND A TEMPORARY IJ HD CATH. ALL SAFETY PRECAUTIONS APPLIED. BED LOCKED IN LOW POSITION, SIDE RAILS UP X2, AND VENT PLUGGED IN TO RED OUTLET. WILL CONTINUE TO MONITOR
[2019-04-18 20:11] VITALS: BP 112/57
--- NOTE | 2019-04-18 21:01 | NUR ---
PT RCVD ARMANDO'D ON MECHANICAL VENT WITH CHARTED SETTINGS. SX DONE. PT ARMANDO IS PATENT AND SECURE. VENT ALARMS APPEAR TO BE FUNCTIONING PROPERLY. VENT PLUGGED INTO RED OUTLET. AMBU BAG AT BEDSIDE. Addendum: 04/18/19 at 2103 by PANKAJ NASH RT Amended: Links added.
[2019-04-18] MEDS: NEPRO 1,000 ML BOTTLE GT PRN (21:49)
[2019-04-19] MEDS: BLOOD SUGAR DIAGNOSTIC 1 EACH STRIP IN SCH ×4 (00:02→18:37)
[2019-04-19 00:03] VITALS: BP 110/58
[2019-04-19 04:32] VITALS: BP 136/58
--- NOTE | 2019-04-19 06:49 | NUR ---
ROLLWAY MAN CLOSING NOTE PATIENT OBTUNDED AND NON VERBAL. VDRF. P #8, AC 14, TV 550, FI02 40% WITH NO PEEP. O2 SAT AT 100%. SR-ST 119 AT ROUNDING. GT IN PLACE, NEPRO @ 50ML/HR NO RESIDUAL. -GI ANURIC WITH A RECTAL FELX SEAL. SKIN ON GOING TX FOR MULTIPLE WOUNDS . IV SITE- DEBBIE PICC LINE H/L AND A TEMPORARY IJ HD CATH. ALL SAFETY PRECAUTIONS APPLIED. BED LOCKED IN LOW POSITION, SIDE RAILS UP X2, AND VENT PLUGGED IN TO RED OUTLET. HD IN AM WILL CONTINUE TO MONITOR
[2019-04-19 06:55] LABS: CALCIUM, SERUM 8.1 mg/dL (8.5-10.1); CREATININE 5.6 mg/dL (0.6-1.3); POTASSIUM 3.8 mmol/L (3.5-5.1)
--- NOTE | 2019-04-19 07:15 | NUR ---
MS RN NOTES RECEIVED PT IN BED SLEEPING ABUSABLE WITH TOUCH AND NAME CALLED. NO SIGNS OF SOB AND DISCOMFORT NOTED. NO RESIDUAL NOTED AT THIS TIME FROM GT. BED LOCKED AT THE LOWEST POSITION, CALL LIGHT WITHIN REACH. WILL CONTINUE TO MONITOR PT.
[2019-04-19 08:00] VITALS: BP 109/53
[2019-04-19] MEDS: PROSOURCE / PROSTAT (PYXIS) 30 ML UDC GT SCH ×3 (10:06→17:15)
[2019-04-19] MEDS: SUCRALFATE 1 G/10 ML UDC GT SCH ×2 (10:09→20:00)
[2019-04-19] MEDS: CHLORHEXIDINE GLUCONATE 15 ML UDC MM SCH ×2 (10:31→17:15)
[2019-04-19] MEDS: VIT B CMPLX 3/FA/VIT C/BIOTIN 1 TAB TABLET PO SCH (10:31)
[2019-04-19] MEDS: DOCUSATE SODIUM LIQ 100 MG/10 ML UDC GT SCH ×2 (10:31→17:15)
[2019-04-19] MEDS: ZINC SULFATE 220 MG CAPSULE GT SCH ×2 (10:31→17:14)
[2019-04-19] MEDS: LINEZOLID 600 MG TABLET PO SCH ×2 (10:31→19:59)
[2019-04-19] MEDS: LACTOBACILLUS RHAMNOSUS GG 1 EACH CAP.SPRINK GT SCH ×2 (10:32→17:13)
[2019-04-19] MEDS: PANTOPRAZOLE 40 MG/PACK PACK GT SCH (10:32)
[2019-04-19] MEDS: TRAMADOL HCL 50 MG TABLET GT SCH ×2 (10:32→17:15)
[2019-04-19] MEDS: ASCORBIC ACID 500 MG TABLET GT SCH ×2 (10:32→17:14)
[2019-04-19] MEDS: DAKINS QUARTER STRENGTH (0.125%) 480 ML BOTTLE TOP SCH (10:46)
[2019-04-19] MEDS: SILVER SULFADIAZINE CREAM 25 GM TUBE TP SCH (10:46)
[2019-04-19] MEDS: HYDROGEL DRESSING 90 GM TUBE TP SCH (10:46)
--- NOTE | 2019-04-19 11:10 | NUR ---
MS TELE NOTES DIALYSIS NURSE IS AT THE BED SIDE AND PATIENT IS HAVING DIALYSIS.
[2019-04-19 12:00] VITALS: BP 119/55
--- NOTE | 2019-04-19 12:12 | NUR ---
MS TELE NOTES PATIENT COMPLETED THE DIALYSIS AND NO OUTPUT WAS NOTED BY DIALYSIS NURSE. PT IS STABLE.
[2019-04-19] MEDS: ACETAMINOPHEN 650 MG/20.3 ML UDC GT PRN (14:59)
[2019-04-19 16:00] VITALS: BP 107/63
[2019-04-19] MEDS: ATENOLOL 25 MG TABLET GT SCH (17:30)
[2019-04-19] MEDS ORDERED: FEE PK DOSING 1 MIN EA MC ONE (17:30)
[2019-04-19] MEDS ORDERED: DOSING PER PHARMACY-AMIKACI IV XX PRN (17:30)
[2019-04-19] MEDS ORDERED: AMIKACIN 450 MG in IV D5W 100 ML IV ONE (18:00)
--- NOTE | 2019-04-19 19:05 | NUR ---
CASKET ASSEMBLER METAL NOTES CLOSING PATIENT IN BED ABUSABLE WHEN NAME CALLED. ALL NEEDED ATTENDED. PATIENT`S TEMP IS WNL OF 99.8 F. NO SIGNS OF DISCOMFORT NOTED AT THIS TIME. SAFETY MEASURE IMPLEMENTED BED AT THE LOWEST POSITION AND LOCKED, CALL LIGHT WITHIN REACH. ENDORSED TO CAMPAIGN COORDINATOR NURSE FOR DENNIS.
--- NOTE | 2019-04-19 19:25 | NUR ---
patient blood pressure noted 83/42 at this time, other vitals pulse 101, Respiration 16, Temperature 97.8, o2 saturation 98% on prescribed vent settings. Patient awake, open eyes. Called Charles Watters at this time, Left message via [employer]. Waiting for call back.
--- NOTE | 2019-04-19 19:37 | NUR ---
Dr. Soto called back at this time, relayed patient current condition Vital signs to with new order to give patient IV NS 0.9% bolus x1 and monitor. Order noted and read back
[2019-04-19 20:00] VITALS: BP 93/49
[2019-04-19] MEDS: LEVOFLOXACIN (250MG) 250 MG TABLET PO SCH (20:00)
[2019-04-19] MEDS ORDERED: IV NS 0.9% 500 ML BAG IV ONE (20:00)
--- NOTE | 2019-04-19 20:05 | NUR ---
RT PT RECEIVED ON [facility] VENT WITH NOTED SETTING. PT TOLERATING SETTING WELL. NO SOB OR DISTRESS NOTED THIS TIME. TRACH PATENT AND SECURE. VENT TO RED OUTLET. ALARMS SET AND AUDIBLE. RICKY BHAKTA AT [facility]. WILL CONTINUE TO MONITOR. Addendum: 04/19/19 at 2004 by DELMA PATEL RT Amended: Links added.
[2019-04-19] MEDS: NEPRO 1,000 ML BOTTLE GT PRN (20:14)
[2019-04-20] VITALS: BP 96/52
[2019-04-20] MEDS: BLOOD SUGAR DIAGNOSTIC 1 EACH STRIP IN SCH ×5 (00:45→23:18)
[2019-04-20 04:00] VITALS: BP_SYST 102; BP_SYST 104; BP_DIAS 48; BP_DIAS 56
--- NOTE | 2019-04-20 07:25 | NUR ---
Tele/RN notes Patient remained in bed, trach to vent, in no acute distress, breathing even and unlabored on prescribed vent settings, no s/s of pain at this time. All due meds given as ordered, treatments rendered, tolerated well. Kept clean and dry. Safety maintained, bed at the lowest locked position, Isolation precautions maintained and strictly observed. Will endorse to am shift nurse for steve.
[2019-04-20 07:29] LABS: CALCIUM, SERUM 7.6 mg/dL (8.5-10.1); CREATININE 5.2 mg/dL (0.6-1.3); POTASSIUM 3.4 mmol/L (3.5-5.1)
[2019-04-20 08:00] VITALS: BP 90/48
[2019-04-20] MEDS: ACETAMINOPHEN 650 MG/20.3 ML UDC GT PRN ×2 (08:22→17:13)
[2019-04-20] MEDS: ZINC SULFATE 220 MG CAPSULE GT SCH ×2 (08:23→17:13)
[2019-04-20] MEDS: PANTOPRAZOLE 40 MG/PACK PACK GT SCH (08:23)
[2019-04-20] MEDS: LACTOBACILLUS RHAMNOSUS GG 1 EACH CAP.SPRINK GT SCH ×2 (08:23→17:13)
[2019-04-20] MEDS: LINEZOLID 600 MG TABLET PO SCH ×2 (08:23→20:17)
[2019-04-20] MEDS: DOCUSATE SODIUM LIQ 100 MG/10 ML UDC GT SCH ×2 (08:23→17:13)
[2019-04-20] MEDS: ASCORBIC ACID 500 MG TABLET GT SCH ×2 (08:23→17:13)
[2019-04-20] MEDS: CHLORHEXIDINE GLUCONATE 15 ML UDC MM SCH ×2 (08:23→17:13)
[2019-04-20] MEDS: SUCRALFATE 1 G/10 ML UDC GT SCH ×2 (08:23→20:17)
[2019-04-20] MEDS: VIT B CMPLX 3/FA/VIT C/BIOTIN 1 TAB TABLET PO SCH (08:23)
[2019-04-20] MEDS: PROSOURCE / PROSTAT (PYXIS) 30 ML UDC GT SCH ×3 (08:24→17:18)
[2019-04-20] MEDS: HYDROGEL DRESSING 90 GM TUBE TP SCH (08:25)
[2019-04-20] MEDS: DAKINS QUARTER STRENGTH (0.125%) 480 ML BOTTLE TOP SCH (08:25)
[2019-04-20] MEDS: SILVER SULFADIAZINE CREAM 25 GM TUBE TP SCH (08:25)
[2019-04-20] MEDS: TRAMADOL HCL 50 MG TABLET GT SCH ×2 (09:00→17:13)
[2019-04-20] MEDS: ALBUMIN 25% 25 GM in PREMIX 1 EA IV PRN (10:30)
[2019-04-20 12:00] VITALS: BP 99/52
--- NOTE | 2019-04-20 14:39 | NUR ---
RT NOTE Pt received trach and on [facility] vent on ordered settings. Vent is plugged into the red outlet w bmv and spare trach at hob. Airway is secure and patent. Pt sx'd w no adverse reactions. Pt is stable. Will pass on report to night shift manager. Addendum: 04/20/19 at 1542 by DORITA CROSS RT Amended: Links added.
[2019-04-20 16:00] VITALS: BP 102/69
[2019-04-20] MEDS: ATENOLOL 25 MG TABLET GT SCH (17:14)
--- NOTE | 2019-04-20 19:30 | NUR ---
REFRACTORY GRINDER OPERATOR NOTE: RECEIVED PT ON BED, OBTUNDED. NO APPARENT DISTRESS NOTED. NO FACIAL GRIMACING OR ANY SIGNS OF PAIN NOTED. [facility], SETTINGS ORDERED. NO SOB NOTED, SATURATING WELL. TEMP 100.1, COOLING BLANKET PROVIDED. SINUS TACHY ON TELE MONITOR HR 110 BPM. GT INTACT AND PATENT, NO RESIDUAL NOTED AT THIS TIME. FLEXISEAL INTACT AND DRAINING WELL. KEPT CLEAN, DRY AND COMFORTABLE. SAFETY AND FALL PRECAUTIONS OBSERVED AND MAINTAINED. WILL CONTINUE TO MONITOR PT.
[2019-04-20 20:00] VITALS: BP 94/53
--- NOTE | 2019-04-20 21:21 | NUR ---
RECEIVED PT TRACHED ON VENT. NO RESP DISTRESS. PT TOLERATING VENT SETTINGS. SX'D FOR MOD AMT OF THICK WHITE SECRETIONS. TRACH SECURE, CUFF PRE PLANNING ADVISOR. CONTINUE [facility] VENT SUPPORT. Addendum: 04/20/19 at 2123 by KYA JUAN RT Amended: Links added.
[2019-04-21] VITALS (16 sets, daily range): BP systolic 78–112; BP diastolic 49–71
[2019-04-21] MEDS: BLOOD SUGAR DIAGNOSTIC 1 EACH STRIP IN SCH ×3 (05:43→17:48)
[2019-04-21] MEDS: NEPRO 1,000 ML BOTTLE GT PRN (05:58)
--- NOTE | 2019-04-21 06:41 | NUR ---
HALL CLEANER NOTE: NO CHANGES NOTED THROUGHOUT THE SHIFT. NO APPARENT DISTRESS NOTED. NO FACIAL GRIMACING OR ANY SIGNS OF PAIN NOTED. SINUS RHYTHM ON TELE MONITOR HR 97 BPM. RIGHT UPPER ARM MIDLINE INTACT AND PATENT, FLUSHING WELL. FLEXISEAL INTACT, DRAINED 200 ML. KEPT CLEAN, DRY AND COMFORTABLE. SAFETY AND FALL PRECAUTIONS OBSERVED AND MAINTAINED. WILL ENDORSE TO DAY SHIFT RN FOR CONTINUITY OF CARE.
[2019-04-21 06:45] LABS: BASOPHILS # (AUTO) 0.1 /CMM (0.0-0.2); BASOPHILS % (AUTO) 0.3 % (0.0-2.0); EOSINOPHILS % (AUTO) 2.2 % (0.0-6.0); LYMPHOCYTES # (AUTO) 0.8 /CMM (0.8-4.8); MEAN CORPUSCULAR HGB CONC 31 g/dl (31.0-36.0); MEAN CORPUSCULAR VOLUME 85 fL (80-96); MONOCYTES # (AUTO) 2.6 /CMM (0.1-1.30); MONOCYTES % (AUTO) 15.9 % (2.0-12.0); NEUTROPHILS # (AUTO) 12.5 /CMM (1.8-8.9); NEUTROPHILS % (AUTO) 76.6 % (43.0-81.0); PLATELET COUNT (AUTO) 118 /CMM (150-450); WHITE BLOOD COUNT (AUTO) 16.3 K/uL (4.3-11.0)
[2019-04-21 06:56] LABS: CALCIUM, SERUM 8.7 mg/dL (8.5-10.1); HEMATOCRIT 19 % (39-51); HEMOGLOBIN 5.8 g/dL (13.5-17.5); MAGNESIUM 2.2 mg/dL (1.8-2.4); PHOSPHORUS 3.9 mg/dL (2.5-4.9); POTASSIUM 3.6 mmol/L (3.5-5.1)
--- NOTE | 2019-04-21 07:20 | NUR ---
TELE/RN OPENING NOTES RECEIVED PATIENT IN BED RESTING COMFORTABLY. NO PAIN OR ACUTE DISTRESS AT THIS TIME. RESPIRATION EVEN AND UNLABORED. SKIN IS DRY WARM TO TOUCH. [facility], TOLERATING CURRENT VENT SETTINGS WELL. ON TELE MONITORING, SINUS TACHY ON TELE MONITOR HR 105 BPM. PATIENT NOTED WITH GT INTACT AND PATENT, NO RESIDUAL NOTED AT THIS TIME. FLEXISEAL INTACT AND DRAINING WELL. ALL NEEDS ANTICIPATED. CALL LIGHT WITHIN REACHED. BED LOCKED AND IN LOWEST POSITION. SAFETY MAINTAINED. REPOSITIONED Q2HRS. WILL CONTINUE TO MONITOR CLOSELY.
[2019-04-21] MEDS: TRAMADOL HCL 50 MG TABLET GT SCH ×2 (08:33→16:37)
[2019-04-21] MEDS: VIT B CMPLX 3/FA/VIT C/BIOTIN 1 TAB TABLET PO SCH (08:33)
[2019-04-21] MEDS: PANTOPRAZOLE 40 MG/PACK PACK GT SCH (08:33)
[2019-04-21] MEDS: LACTOBACILLUS RHAMNOSUS GG 1 EACH CAP.SPRINK GT SCH ×2 (08:33→16:37)
[2019-04-21] MEDS: ASCORBIC ACID 500 MG TABLET GT SCH ×2 (08:33→16:37)
[2019-04-21] MEDS: LINEZOLID 600 MG TABLET PO SCH ×2 (08:33→21:18)
[2019-04-21] MEDS: SUCRALFATE 1 G/10 ML UDC GT SCH ×2 (08:33→21:17)
[2019-04-21] MEDS: CHLORHEXIDINE GLUCONATE 15 ML UDC MM SCH ×2 (08:33→16:37)
[2019-04-21] MEDS: ZINC SULFATE 220 MG CAPSULE GT SCH ×2 (08:33→16:37)
[2019-04-21] MEDS: DOCUSATE SODIUM LIQ 100 MG/10 ML UDC GT SCH ×2 (08:33→16:37)
[2019-04-21] MEDS: PROSOURCE / PROSTAT (PYXIS) 30 ML UDC GT SCH ×3 (08:34→16:37)
[2019-04-21] MEDS: HYDROGEL DRESSING 90 GM TUBE TP SCH (08:36)
[2019-04-21] MEDS: DAKINS QUARTER STRENGTH (0.125%) 480 ML BOTTLE TOP SCH (08:37)
[2019-04-21] MEDS: SILVER SULFADIAZINE CREAM 25 GM TUBE TP SCH (08:37)
[2019-04-21 09:26] LABS: EOSINOPHILS % (MANUAL) 1 % (0-4); LYMPHOCYTES % (MANUAL) 1 % (16-48); MONOCYTES % (MANUAL) 15 % (0-11.0); NEUTROPHILS % (MANUAL) 83 (42-76)
--- NOTE | 2019-04-21 11:46 | NUR ---
TEL NURSE. Left message to [phone] RE; HGB 5.8 HCT 19 waiting for returning call back
--- NOTE | 2019-04-21 11:59 | NUR ---
TEL NURSE , called back and orders given and carried out
--- NOTE | 2019-04-21 12:14 | NUR ---
TELE/RN NOTES RECEIVED ORDERS FROM DR. LÓPEZ ACCORDING TO CHARGE NURSE TO TRANSFUSE 2 UNITS OF BLOOD. HGB IS 5.8. NO ACTIVE BLEEDING. PATIENT CONTINUES TO REMAIN IN STABLE CONDITION. WILL CONTINUE TO MONITOR CLOSELY.
[2019-04-21] MEDS: ATENOLOL 25 MG TABLET GT SCH (18:00)
--- NOTE | 2019-04-21 18:10 | NUR ---
TELE/RN NOTES MEDICATION TENORMIN NOT GIVEN DUE TO LOW BP OF 94/58. PATIENT CONTINUES TO REMAIN IN STABLE CONDITION. WILL CONTINUE TO MONITOR CLOSELY.
--- NOTE | 2019-04-21 19:07 | NUR ---
TELE/RN CLOSING NOTES PATIENT CONTINUES TO REMAIN IN STABLE CONDITION THROUGHOUT THE SHIFT. PROVIDED COMFORT AND SAFETY. [facility], TOLERATING CURRENT VENT SETTINGS WELL. ON TELE MONITORING, SINUS T[place]Y ON TELE MONITOR HR 90 BPM. PATIENT NOTED WITH GT INTACT AND PATENT, NO RESIDUAL NOTED AT THIS TIME. FLEXISEAL INTACT AND DRAINING WELL. ALL NEEDS ANTICIPATED. CALL LIGHT WITHIN REACHED. BED LOCKED AND IN LOWEST POSITION. SAFETY MAINTAINED. REPOSITIONED Q2HRS. ENDORSED TO PM NURSE FOR DENNIS.
--- NOTE | 2019-04-21 19:30 | NUR ---
FINANCIAL ADVISOR NOTE: RECEIVED PT ON BED, OBTUNDED. NO APPARENT DISTRESS NOTED. NO FACIAL GRIMACING OR ANY SIGNS OF PAIN NOTED. ON [facility] VENT, SETTINGS ORDERED. NO SOB NOTED, SATURATING WELL. SINUS RHYTHM ON TELE MONITOR HR 93 BPM. GT INTACT AND PATENT, NO RESIDUAL NOTED AT THIS TIME. FLEXISEAL INTACT AND DRAINING WELL. KEPT CLEAN, DRY AND COMFORTABLE. SAFETY AND FALL PRECAUTIONS OBSERVED AND MAINTAINED. WILL CONTINUE TO MONITOR PT.
[2019-04-21] MEDS: LEVOFLOXACIN (250MG) 250 MG TABLET PO SCH (21:17)
[2019-04-22] VITALS: BP 104/67
[2019-04-22] MEDS: BLOOD SUGAR DIAGNOSTIC 1 EACH STRIP IN SCH ×4 (00:06→17:15)
[2019-04-22 04:00] VITALS: BP 111/69
[2019-04-22] MEDS: NEPRO 1,000 ML BOTTLE GT PRN (04:32)
--- NOTE | 2019-04-22 05:50 | NUR ---
RT Patient was received on continuous vent support on noted vent settings. Trach is patent and secured. Patient stable throughout the shift.Will continue to monitor. Addendum: 04/22/19 at 0553 by SOHAIL BAUTISTA RT Amended: Links added.
[2019-04-22 06:35] LABS: BASOPHILS # (AUTO) 0.1 /CMM (0.0-0.2); BASOPHILS % (AUTO) 0.5 % (0.0-2.0); EOSINOPHILS % (AUTO) 4.6 % (0.0-6.0); HEMATOCRIT 26 % (39-51); HEMOGLOBIN 8.3 g/dL (13.5-17.5); LYMPHOCYTES % (AUTO) 7.9 % (20.0-44.0); MEAN CORPUSCULAR HGB CONC 32 g/dl (31.0-36.0); MEAN CORPUSCULAR VOLUME 83 fL (80-96); MONOCYTES # (AUTO) 1.5 /CMM (0.1-1.30); MONOCYTES % (AUTO) 11.4 % (2.0-12.0); NEUTROPHILS # (AUTO) 9.9 /CMM (1.8-8.9); NEUTROPHILS % (AUTO) 75.6 % (43.0-81.0); PLATELET COUNT (AUTO) 124 /CMM (150-450); RED BLOOD CELL COUNT(AUTO) 3.12 MIL/uL (4.5-6.0)
--- NOTE | 2019-04-22 06:42 | NUR ---
SCREENER PERFUMER NOTE: NO CHANGES NOTED THROUGHOUT THE SHIFT. NO APPARENT DISTRESS NOTED. NO FACIAL GRIMACING OR ANY SIGNS OF PAIN NOTED. NO FEVER. SINUS RHYTHM ON TELE MONITOR HR 95 BPM. RIGHT UPPER ARM MIDLINE INTACT AND PATENT, FLUSHING WELL. FLEXISEAL INTACT, DRAINED 100 ML. KEPT CLEAN, DRY AND COMFORTABLE. SAFETY AND FALL PRECAUTIONS OBSERVED AND MAINTAINED. WILL ENDORSE TO DAY SHIFT RN FOR CONTINUITY OF CARE.
[2019-04-22 06:47] LABS: IRON, SERUM 80 ug/dl (50-175); TOTAL IRON BINDING CAPACITY 124 ug/dl (250-450)
--- NOTE | 2019-04-22 07:26 | NUR ---
TANKROOM TENDER NOTE: RECEIVED PT ON BED, OBTUNDED. NO APPARENT DISTRESS NOTED. NO FACIAL GRIMACING OR ANY SIGNS OF PAIN NOTED. WITH TRACH ON [facility] VENT, SETTINGS ORDERED. NO SOB NOTED, SATURATING WELL. SINUS RHYTHM ON TELE MONITOR GT INTACT AND PATENT, NO RESIDUAL NOTED AT THIS TIME. FLEXISEAL INTACT AND DRAINING WELL. KEPT CLEAN, DRY AND COMFORTABLE. SAFETY AND FALL PRECAUTIONS OBSERVED AND MAINTAINED. WILL CONTINUE TO MONITOR PT. RT UPPER ARM MID LINE IN PLACE ,BED IN LOWEST AND LOCKED POSITION
[2019-04-22 07:28] LABS: CALCIUM, SERUM 8.8 mg/dL (8.5-10.1); CREATININE 6.1 mg/dL (0.6-1.3); POTASSIUM 3.7 mmol/L (3.5-5.1)
[2019-04-22 08:00] VITALS: BP 97/64
[2019-04-22] MEDS: SUCRALFATE 1 G/10 ML UDC GT SCH ×2 (09:13→21:18)
[2019-04-22] MEDS: CHLORHEXIDINE GLUCONATE 15 ML UDC MM SCH ×2 (09:13→16:03)
[2019-04-22] MEDS: LACTOBACILLUS RHAMNOSUS GG 1 EACH CAP.SPRINK GT SCH ×2 (09:13→16:02)
[2019-04-22] MEDS: ASCORBIC ACID 500 MG TABLET GT SCH ×2 (09:13→16:02)
[2019-04-22] MEDS: DOCUSATE SODIUM LIQ 100 MG/10 ML UDC GT SCH ×2 (09:13→16:02)
[2019-04-22] MEDS: ZINC SULFATE 220 MG CAPSULE GT SCH ×2 (09:13→16:03)
[2019-04-22] MEDS: VIT B CMPLX 3/FA/VIT C/BIOTIN 1 TAB TABLET PO SCH (09:13)
[2019-04-22] MEDS: PANTOPRAZOLE 40 MG/PACK PACK GT SCH (09:13)
[2019-04-22] MEDS: LINEZOLID 600 MG TABLET PO SCH ×2 (09:14→21:18)
[2019-04-22] MEDS: TRAMADOL HCL 50 MG TABLET GT SCH ×2 (09:14→16:03)
[2019-04-22] MEDS: DAKINS QUARTER STRENGTH (0.125%) 480 ML BOTTLE TOP SCH (09:14)
[2019-04-22] MEDS: SILVER SULFADIAZINE CREAM 25 GM TUBE TP SCH (09:15)
[2019-04-22] MEDS: HYDROGEL DRESSING 90 GM TUBE TP SCH (09:15)
[2019-04-22] MEDS: PROSOURCE / PROSTAT (PYXIS) 30 ML UDC GT SCH ×3 (09:20→16:03)
--- NOTE | 2019-04-22 11:27 | NUR ---
mental telepathist note trach suction done , mod amt of white thick secretion obtained, will monitor
[2019-04-22 12:00] VITALS: BP 95/69
--- NOTE | 2019-04-22 14:22 | NUR ---
WOOD GLUER NOTE ON G TUBE FEEDING ORDERED WITH TRACH TO SUCTION ORDERED PRN ,KEEP CLEAN DRY
--- NOTE | 2019-04-22 15:34 | NUR ---
DOPE WORKER NOTE STOOL FOR OB COLLECTED ORDERED, KEEP CLEAN DRY
[2019-04-22 16:00] VITALS: BP 114/71
[2019-04-22] MEDS: ATENOLOL 25 MG TABLET GT SCH (17:15)
--- NOTE | 2019-04-22 18:19 | NUR ---
IOS ARCHITECT NOTE CONT ON G TUBE FEEDING ORDERED KEEP HOB ELEVATED AT ALL TIME ,NOT IN DISTRESS, WITH TRACH TO VENT SETTING , BED IN LOWEST AND LOCKED POSITION , WILL CONT TO MONITOR CLOSELY
[2019-04-22 18:23] LABS: OCCULT BLOOD STOOL NEGATIVE (NEGATIVE)
--- NOTE | 2019-04-22 18:57 | NUR ---
COMMUNICATION MANAGER NOTE SPOKE WITH NEIL RN OPERATING ROOM REGISTERED NURSE ID NOTIFIED THAT PRELIMINARY REPORT BLOOD CX GRAM NEGATIVE [place]
--- NOTE | 2019-04-22 19:30 | NUR ---
CATALOGUE LIBRARIAN OPENING NOTE RECEIVED PATIENT A/O X1. PATIENT IS VENT AND TOLERATING WELL. PATIENT IS OBTUNDED WITH MULTIPLE WOUNDS. HAS GTUBE FEEDINGS OF NEPRO RUNNING AT 50ML/HR. PATIENT IS SINUS RHYTHM ON THE MONITOR WITH NO ELEVATED TEMP. ALL SAFETY PRECAUTION APPLIED WILL CONTINUE TO MONITOR PATIENT.
[2019-04-22 20:00] VITALS: BP 121/77
--- NOTE | 2019-04-22 20:32 | NUR ---
patient recieved from another rn for further continued care
--- NOTE | 2019-04-22 20:35 | NUR ---
PROM BURN OFF OPERATOR NOTE ENDORSED PATIENT TO ANOTHER NURSE FOR DENNIS. PATIENT IN BED WITH NO SIGNS OF ANY DISTRESS.
[2019-04-23] VITALS: BP 118/76
[2019-04-23] MEDS: BLOOD SUGAR DIAGNOSTIC 1 EACH STRIP IN SCH ×4 (00:01→17:52)
--- NOTE | 2019-04-23 02:16 | NUR ---
picturess taken and dressing mto the wounds done as ordered, cleaned and kept dry.
[2019-04-23 04:00] VITALS: BP 137/87
--- NOTE | 2019-04-23 05:39 | NUR ---
RECEIVED PT TRACHED ON VENT. NO RESP DISTRESS THRU OUT THE NIGHT. SX'D AND LAVAGE FOR SML AMT OF THIN WHITE SECRETIONS. TRACH SECURE, CUFF HOTEL GENERAL MANAGER. VENT ALARMS SET AND AUDIBLE. AMBU BAG AT BEDSIDE. CONTINUE [facility] VENT SUPPORT. Addendum: 04/23/19 at 0541 by KYA JUAN RT Amended: Links added.
[2019-04-23 06:18] LABS: BASOPHILS # (AUTO) 0.1 /CMM (0.0-0.2); BASOPHILS % (AUTO) 0.6 % (0.0-2.0); EOSINOPHILS % (AUTO) 4.6 % (0.0-6.0); HEMATOCRIT 24 % (39-51); HEMOGLOBIN 7.8 g/dL (13.5-17.5); MEAN CORPUSCULAR HGB CONC 33 g/dl (31.0-36.0); MEAN CORPUSCULAR VOLUME 83 fL (80-96); MONOCYTES % (AUTO) 9.9 % (2.0-12.0); NEUTROPHILS % (AUTO) 75.9 % (43.0-81.0); PLATELET COUNT (AUTO) 129 /CMM (150-450); RED BLOOD CELL COUNT(AUTO) 2.83 MIL/uL (4.5-6.0); WHITE BLOOD COUNT (AUTO) 10.6 K/uL (4.3-11.0)
[2019-04-23 06:45] LABS: CALCIUM, SERUM 8.8 mg/dL (8.5-10.1); MAGNESIUM 2.5 mg/dL (1.8-2.4); PHOSPHORUS 3.7 mg/dL (2.5-4.9); POTASSIUM 3.9 mmol/L (3.5-5.1)
[2019-04-23 06:48] LABS: CREATININE 7.5 mg/dL (0.6-1.3)
[2019-04-23 08:00] VITALS: BP 103/56
--- NOTE | 2019-04-23 08:00 | NUR ---
TELE1/RN AM SHIFT INITIAL NOTES RECEIVED PT ASLEEP IN BED, PT OBTUNDED, OCCASIONALLY OPEN EYES, NO ACUTE DISTRESS, GRIMACING OR CHANGE OF CONDITION NOTED. ON VENTILATOR RATES SET PRESCRIBED, SATURATING @ 100%, RESPIRATIONS EVEN & UNLABORED, LUNG SOUNDS CLEAR, SUCTIONED FOR AIRWAY CLEARANCE. ON TELE MONITORING, SINUS RHYTHM, HR 84. PICC LINE ON TKO, PATENT WITH NO S/S OF INFECTION. GT FEEDING ON GOING @ 50CC/HR, NO GASTRIC RESIDUAL NOTED, FLUSHED, PATENT. RECTAL TUBE INTACT NOTED WITH BROWN LIQUID FECAL OUTPUT. PT IS COMFORTABLE, SCHEDULED AM MEDS TO BE GIVEN. CL WITHIN REACHED, SAFETY MAINTAINED AND ISOLATION OBSERVED. ON GOING MONITORING.
[2019-04-23] MEDS: PANTOPRAZOLE 40 MG/PACK PACK GT SCH (08:49)
[2019-04-23] MEDS: LACTOBACILLUS RHAMNOSUS GG 1 EACH CAP.SPRINK GT SCH ×2 (08:49→18:03)
[2019-04-23] MEDS: DOCUSATE SODIUM LIQ 100 MG/10 ML UDC GT SCH ×2 (08:49→18:03)
[2019-04-23] MEDS: CHLORHEXIDINE GLUCONATE 15 ML UDC MM SCH ×2 (08:49→18:02)
[2019-04-23] MEDS: LINEZOLID 600 MG TABLET PO SCH (08:49)
[2019-04-23] MEDS: SUCRALFATE 1 G/10 ML UDC GT SCH ×2 (08:49→20:50)
[2019-04-23] MEDS: TRAMADOL HCL 50 MG TABLET GT SCH ×2 (08:50→18:03)
[2019-04-23] MEDS: VIT B CMPLX 3/FA/VIT C/BIOTIN 1 TAB TABLET PO SCH (08:50)
[2019-04-23] MEDS: ASCORBIC ACID 500 MG TABLET GT SCH ×2 (08:50→18:03)
[2019-04-23] MEDS: ZINC SULFATE 220 MG CAPSULE GT SCH ×2 (08:51→18:03)
[2019-04-23] MEDS: HYDROGEL DRESSING 90 GM TUBE TP SCH (08:57)
[2019-04-23] MEDS: DAKINS QUARTER STRENGTH (0.125%) 480 ML BOTTLE TOP SCH (08:57)
[2019-04-23] MEDS: SILVER SULFADIAZINE CREAM 25 GM TUBE TP SCH (08:58)
--- NOTE | 2019-04-23 09:45 | NUR ---
TELE1/DYE PADDER OPERATOR DEBRIDEMENT PT SEEN BY EDUARD MARTINEZ. DEBRIDED LEFT BUTTOCK AND SACRAL WOUNDS. PT TOLERATED PROCEDURE. MONITORING CONTINUED.
[2019-04-23] MEDS: PROSOURCE / PROSTAT (PYXIS) 30 ML UDC GT SCH ×3 (11:32→18:02)
[2019-04-23 12:00] VITALS: BP 118/67
[2019-04-23 16:00] VITALS: BP 125/81
[2019-04-23] MEDS: ATENOLOL 25 MG TABLET GT SCH (18:03)
--- NOTE | 2019-04-23 19:30 | NUR ---
TELE1/RN AM SHIFT END NOTES ALL NEEDS MET. NO ACUTE CHANGE OF CONDITION NOTED DURING THE SHIFT. PT ENDORSED TO PM NURSE TO CONTINUE CARE. CL WITHIN REACHED, SAFETY MAINTAINED AND ISOLATION OBSERVED.
--- NOTE | 2019-04-23 19:48 | NUR ---
IT SECURITY SPECIALIST OPENING NOTE RECEIVED PATIENT A/O X 1. PATIENT IS NON-VERBAL AND OBTUNDED. ON VENT AND TOLERATING WELL. PORTEX #8, AC 14, TV550, FIO2 40%, WITH NO PEEP. IV ACCESS ON T MIDLINE S/L. PATIENT HAS A FLEXI SEAL PATENT WITH NO LEAKAGE. PATIENT HAS MULTIPLE WOUNDS WILL CONTINUE WITH WOUND CARE. PATIENT ON THE MONITOR SHOWN SINUS RHYTHM. MONITORING TEMP THROUGH RECTAL, TEMP IS WNL. ALL SAFETY PRECAUTIONS APPLIED. VENT EQUIPMENT PLUGGED INTO RED OUTLET. WILL CONTINUE TO MONITOR PATIENT.
[2019-04-23 20:00] VITALS: BP 137/85
[2019-04-23] MEDS: LEVOFLOXACIN (250MG) 250 MG TABLET PO SCH (20:50)
[2019-04-24] VITALS: BP 129/77
[2019-04-24] MEDS: NEPRO 1,000 ML BOTTLE GT PRN (00:13)
[2019-04-24] MEDS: BLOOD SUGAR DIAGNOSTIC 1 EACH STRIP IN SCH ×4 (00:21→18:37)
[2019-04-24 04:00] VITALS: BP 125/67
[2019-04-24] MEDS: IV NS 0.9% 250 ML IV PRN (05:22)
--- NOTE | 2019-04-24 07:17 | NUR ---
ADHESIVE BONDING MACHINE OPERATOR CLOSING PATIENT IN BED TOLERATING VENT WELL. NO SIGNS OF OBSTRUCTIONS. ALL SAFETY PRECAUTIONS APPLIED. ENDORSED PATIENT TO MORNING SHIFT NURSE
[2019-04-24 08:00] VITALS: BP_SYST 136; BP_DIAS 50; BP_DIAS 90
--- NOTE | 2019-04-24 08:00 | NUR ---
TELE1/RN AM SHIFT INITIAL NOTES RECEIVED PT ASLEEP IN BED, PT OBTUNDED, OCCASIONALLY OPEN EYES, NO GRIMACING OR CHANGE OF CONDITION NOTED. ON VENTILATOR RATES SET PRESCRIBED, SATURATING @ 100%, RESPIRATIONS EVEN & UNLABORED, LUNG SOUNDS CLEAR, SUCTIONED FOR AIRWAY CLEARANCE. ON TELE MONITORING, SINUS RHYTHM, HR 95. MID-LINE ON TKO, PATENT WITH NO S/S OF INFECTION. GT FEEDING ON GOING @ 50CC/HR, NO GASTRIC RESIDUAL NOTED, FLUSHED, PATENT. RECTAL TUBE INTACT NOTED WITH BROWN LIQUID FECAL OUTPUT. PT IS COMFORTABLE, SCHEDULED AM MEDS TO BE GIVEN. CL WITHIN REACHED, SAFETY MAINTAINED AND ISOLATION OBSERVED. ON GOING MONITORING.
[2019-04-24] MEDS: CHLORHEXIDINE GLUCONATE 15 ML UDC MM SCH ×2 (08:48→16:15)
[2019-04-24] MEDS: DOCUSATE SODIUM LIQ 100 MG/10 ML UDC GT SCH ×2 (08:48→16:15)
[2019-04-24] MEDS: PROSOURCE / PROSTAT (PYXIS) 30 ML UDC GT SCH ×3 (08:48→16:14)
[2019-04-24] MEDS: VIT B CMPLX 3/FA/VIT C/BIOTIN 1 TAB TABLET PO SCH (08:48)
[2019-04-24] MEDS: ZINC SULFATE 220 MG CAPSULE GT SCH ×2 (08:48→16:15)
[2019-04-24] MEDS: LACTOBACILLUS RHAMNOSUS GG 1 EACH CAP.SPRINK GT SCH ×2 (08:48→16:15)
[2019-04-24] MEDS: SUCRALFATE 1 G/10 ML UDC GT SCH ×2 (08:48→21:40)
[2019-04-24] MEDS: ASCORBIC ACID 500 MG TABLET GT SCH ×2 (08:49→16:15)
[2019-04-24] MEDS: PANTOPRAZOLE 40 MG/PACK PACK GT SCH (08:49)
[2019-04-24] MEDS: TRAMADOL HCL 50 MG TABLET GT SCH ×2 (08:49→16:15)
[2019-04-24] MEDS: HYDROGEL DRESSING 90 GM TUBE TP SCH (08:50)
[2019-04-24] MEDS: DAKINS QUARTER STRENGTH (0.125%) 480 ML BOTTLE TOP SCH (08:50)
[2019-04-24] MEDS: SILVER SULFADIAZINE CREAM 25 GM TUBE TP SCH (08:50)
[2019-04-24 12:00] VITALS: BP 138/82
--- NOTE | 2019-04-24 12:00 | NUR ---
TELE1/RN NOON ROUNDS NO CHANGE OF CONDITION. MONITORING CONTINUED.
[2019-04-24 16:00] VITALS: BP 99/72
[2019-04-24] MEDS: ATENOLOL 25 MG TABLET GT SCH (18:00)
--- NOTE | 2019-04-24 19:00 | NUR ---
RECEIVED PATIENT WITH TRACHEOSTOMY TO THE VENTILATOR ON AC MODE,OPENS EYES,WITHDRAWS/GRIMACES TO PAIN ,CONTRACTED EXTREMITIES.WITH MULTIPLE WOUNDS.FEEDING VIA G TUBE,TOLERATING GOAL .COMFORT CARE /PULMONARY TOILETING DONE.
--- NOTE | 2019-04-24 19:30 | NUR ---
TELE1/RN AM SHIFT END NOTES ALL NEEDS MET. NO CHANGE OF CONDITION NOTED DURING THE SHIFT. PT ENDORSED TO PM NURSE TO CONTINUE CARE. CL WITHIN REACHED, SAFETY MAINTAINED AND ISOLATION OBSERVED.
[2019-04-24 20:00] VITALS: BP 122/76
[2019-04-25] VITALS: BP 123/73
--- NOTE | 2019-04-25 | NUR ---
Status unchanged,stable,not in any distress.Continue comfort care, turn q 2 hrs.Pulmonary toileting.
[2019-04-25] MEDS: BLOOD SUGAR DIAGNOSTIC 1 EACH STRIP IN SCH ×5 (00:15→23:57)
[2019-04-25 04:00] VITALS: BP 139/76
--- NOTE | 2019-04-25 04:00 | NUR ---
Remains stable,wound care /AM bath done.
[2019-04-25] MEDS: NEPRO 1,000 ML BOTTLE GT PRN (05:46)
[2019-04-25 06:56] LABS: EOSINOPHILS % (AUTO) 5.9 % (0.0-6.0); HEMATOCRIT 23 % (39-51); HEMOGLOBIN 7.5 g/dL (13.5-17.5); LYMPHOCYTES % (AUTO) 9.9 % (20.0-44.0); MEAN CORPUSCULAR HGB CONC 33 g/dl (31.0-36.0); MEAN CORPUSCULAR VOLUME 84 fL (80-96); MONOCYTES % (AUTO) 8.7 % (2.0-12.0); NEUTROPHILS % (AUTO) 74.5 % (43.0-81.0); PLATELET COUNT (AUTO) 141 /CMM (150-450); RED BLOOD CELL COUNT(AUTO) 2.74 MIL/uL (4.5-6.0); WHITE BLOOD COUNT (AUTO) 10.3 K/uL (4.3-11.0)
[2019-04-25 06:57] LABS: BASOPHILS # (AUTO) 0.1 /CMM (0.0-0.2); MONOCYTES # (AUTO) 0.9 /CMM (0.1-1.30); NEUTROPHILS # (AUTO) 7.7 /CMM (1.8-8.9)
--- NOTE | 2019-04-25 07:00 | NUR ---
STABLE ALL NIGHT,NOT IN ANY DISTRESS.REPORT GIVEN TO SAM FORREST.
[2019-04-25 07:31] LABS: ALBUMIN 2.1 g/dL (3.4-5.0); BILIRUBIN,TOTAL 0.4 mg/dL (0.2-1.0); MAGNESIUM 2.9 mg/dL (1.8-2.4); PHOSPHORUS 3.6 mg/dL (2.5-4.9); POTASSIUM 4.3 mmol/L (3.5-5.1); TOTAL PROTEIN, SERUM 5.8 g/dL (6.4-8.2)
[2019-04-25 07:39] LABS: CREATININE 9.8 mg/dL (0.6-1.3)
[2019-04-25 08:00] VITALS: BP 126/80
[2019-04-25] MEDS: ZINC SULFATE 220 MG CAPSULE GT SCH ×2 (08:15→19:10)
[2019-04-25] MEDS: DOCUSATE SODIUM LIQ 100 MG/10 ML UDC GT SCH ×2 (08:16→19:11)
[2019-04-25] MEDS: VIT B CMPLX 3/FA/VIT C/BIOTIN 1 TAB TABLET PO SCH (08:16)
[2019-04-25] MEDS: PROSOURCE / PROSTAT (PYXIS) 30 ML UDC GT SCH ×3 (08:16→19:35)
[2019-04-25] MEDS: PANTOPRAZOLE 40 MG/PACK PACK GT SCH (08:16)
[2019-04-25] MEDS: SUCRALFATE 1 G/10 ML UDC GT SCH ×2 (08:16→21:44)
[2019-04-25] MEDS: CHLORHEXIDINE GLUCONATE 15 ML UDC MM SCH ×2 (08:16→19:11)
[2019-04-25] MEDS: ASCORBIC ACID 500 MG TABLET GT SCH ×2 (08:17→19:13)
[2019-04-25] MEDS: TRAMADOL HCL 50 MG TABLET GT SCH ×2 (08:17→19:11)
[2019-04-25] MEDS: HYDROGEL DRESSING 90 GM TUBE TP SCH (08:18)
[2019-04-25] MEDS: LACTOBACILLUS RHAMNOSUS GG 1 EACH CAP.SPRINK GT SCH ×2 (08:18→19:11)
[2019-04-25] MEDS: SILVER SULFADIAZINE CREAM 25 GM TUBE TP SCH (08:18)
[2019-04-25] MEDS: DAKINS QUARTER STRENGTH (0.125%) 480 ML BOTTLE TOP SCH (08:19)
--- NOTE | 2019-04-25 08:37 | NUR ---
TELE1/BENCH SCIENTIST OF CARE PT IN STABLE CONDITION. PT ENDORSED TO NURSE HEBER TO CONTINUE CARE.
--- NOTE | 2019-04-25 08:37 | NUR ---
HUMAN SERVICES SUPERVISOR NOTE RECEIVED PT IN BED A/OX1 ABLE TO OPEN EYES WHEN NAME CALLED. NO RESIDUAL NOTED @GT. CALLED DAUGHTER CLASSI TO OBTAIN CONSENT FOR NEW HEMODIALYSIS CATHETER INSERTION AND OBTAINED THE CONSENT. BED LOCKED AT THE LOWEST POSITION LOCKED CALL LIGHT WITHIN REACH. WILL CONTINUE TO MONITOR.
[2019-04-25 12:00] VITALS: BP 128/81
[2019-04-25] MEDS: INSULIN REGULAR, HUMAN 100 UNIT/ML 3 ML VIAL SQ PRN (12:20)
[2019-04-25 16:00] VITALS: BP 135/84
--- NOTE | 2019-04-25 19:00 | NUR ---
BROOM STITCHER NOTES PATIENT IN BED RESTING COMFORTABLY. RECTAL TUBE IS OUT AND PT HAS 50 ML STOOL OUT. NO SOB AND DISTRESS NOTED AT THIS TIME. ALL NEEDS ATTENDED, NO SIGNIFICANT CHANGES NOTED DURING DAY. CALL LIGHT WITHIN REACH , BED LOCKED AT THE LOWEST POSITION. IV SITE PATENT . WILL ENDORSE TO 1ST GRADE TEACHER NURSE FOR DENNIS.
[2019-04-25] MEDS: ATENOLOL 25 MG TABLET GT SCH (19:13)
[2019-04-25] MEDS: LEVOFLOXACIN (250MG) 250 MG TABLET PO SCH (20:32)
[2019-04-25 21:00] VITALS: BP 122/81
--- NOTE | 2019-04-25 21:25 | NUR ---
NEGATIVE RETOUCHER OF CARE 2124 RECEIVED PATIENT FROM LON BOLAND. PATIENT ON ISOLATION, MRSA NARES, ESBL WOUND, URINE. PPE UTILIZED. PATIENT IS MECHANICAL VENT DEPENDENT, AMBU BAG AT BED SIDE, CLINICAL ALARMS CHECKED AND AUDIBLE. PATIENT IS OBTUNDED, OPEN EYES SPONTANEOUSLY. PATIENT HAS GTUBE PLACED. LEFT UPPER ARM MIDLINE. NOTED TO BE CONTRACTED BLE. BLE AND BUE OFFLOADED ON PILLOWS. ON TELE MONITORING SR. SAFETY PRECAUTIONS FOR FALL IMPLEMENTED; CALL LIGHT WITHIN REACH, BED LOWEST POSITION, BED LOCKED, BILATERAL UPPER SIDE RAILS UP. WILL CONTINUE TO MONITOR PATIENT.
[2019-04-26] VITALS (12 sets, daily range): BP systolic 107–143; BP diastolic 70–82
--- NOTE | 2019-04-26 03:27 | NUR ---
RT Pt trach remains on [facility] vent on ordered settings. No resp distress noted. Trach secure and patent. Addendum: 04/26/19 at 0328 by RICHY MADRIGAL RT Amended: Links added.
[2019-04-26] MEDS: NEPRO 1,000 ML BOTTLE GT PRN (04:03)
[2019-04-26] MEDS: BLOOD SUGAR DIAGNOSTIC 1 EACH STRIP IN SCH ×3 (05:36→16:47)
--- NOTE | 2019-04-26 06:21 | NUR ---
RN CLOSING NOTES PATIENT IS IN BED, REMAINS OBTUNDED. TOLERATED VENT SETTINGS WELL. CLINICAL ALARMS REMAINS AUDIBLE. G-TUBE STILL PLACED NO RESIDUAL OBTAINED, SOUND HEARD UPON AUSCULTATION. LEFT UPPER ARM MIDLINE REMAINS PATENT AND FLUSHING WELL, RUNNING TKO 5ML/HR. ALL PORTS WITH GOOD BLOOD RETURN. VS REMAIN STABLE, NEEDS ATTENDED TO. ASSISTED BOX SEALING MACHINE OPERATOR IN PROVIDING BED BATH TO PT, ALL LINENS COMPLETELY CHANGED, WOUND CARE DONE ORDERED. PPE UTILIZED FOR ISOLATION. PATIENT TURNED EVERY 2 HOURS. SAFETY PRECAUTIONS FOR FALLS IMPLEMENTED; CALL LIGHT WITHIN REACH, BED LOWEST POSITION, BED LOCKED, BILATERAL UPPER SIDE RAILS UP. WILL ENDORSE TO DAYSHIFT NURSE FOR CONTINUITY OF CARE.
--- NOTE | 2019-04-26 08:00 | NUR ---
rn notes Received patient in the bed trachea/vent dependent. isolation. Patient has no acute respiratory distress, v/s wnl, G-tube intact residual, and placement checked infusing nephro 50 ml/hr intact, administered scheduled medication via g-tube, keep hob elevated for aspiration precaution. patient has a rectal thermometer T-98.4, incontinent using diaper, patient has a multiple wounds dressing changed, assist turn and reposition q 2 hr. vernon light within to reach, get call for critical lab hemoglobin 6.9, notified dr Ontiveros and get order for one unit transfusion, consent forms signed by daughter, cosign with co worker LON Phan. continued monitoring.
[2019-04-26 08:45] LABS: BASOPHILS # (AUTO) 0.1 /CMM (0.0-0.2); BASOPHILS % (AUTO) 0.6 % (0.0-2.0); EOSINOPHILS % (AUTO) 7.3 % (0.0-6.0); HEMATOCRIT 21 % (39-51); LYMPHOCYTES # (AUTO) 1.1 /CMM (0.8-4.8); MEAN CORPUSCULAR HGB CONC 33 g/dl (31.0-36.0); MEAN CORPUSCULAR VOLUME 84 fL (80-96); MONOCYTES # (AUTO) 0.7 /CMM (0.1-1.30); MONOCYTES % (AUTO) 8.5 % (2.0-12.0); NEUTROPHILS # (AUTO) 6.3 /CMM (1.8-8.9); NEUTROPHILS % (AUTO) 71.6 % (43.0-81.0); PLATELET COUNT (AUTO) 151 /CMM (150-450); RED BLOOD CELL COUNT(AUTO) 2.51 MIL/uL (4.5-6.0); WHITE BLOOD COUNT (AUTO) 8.8 K/uL (4.3-11.0)
--- NOTE | 2019-04-26 08:50 | NUR ---
RT NOTE RECEIVED PT MECHANICALLY VENTILATED VIA CUFFED TRACHEOSTOMY TUBE. CUFF INFLATED. TRACH TUBE MIDLINE AND SECURE. VENTILATOR SETTINGS PRESCRIBED. ALARMS SET PER PROTOCOL AND AUDIBLE. VENT PLUGGED IN TO RED OUTLET. AMBU BAG AND BACK UP TRACH AT BED SIDE. NO DISTRESS NOTED AT MOMENT. Addendum: 04/26/19 at 0853 by RADHA BAUTISTA RT Amended: Links added.
[2019-04-26 09:04] LABS: BILIRUBIN,TOTAL 0.4 mg/dL (0.2-1.0); CALCIUM, SERUM 9.2 mg/dL (8.5-10.1); POTASSIUM 4.3 mmol/L (3.5-5.1); TOTAL PROTEIN, SERUM 5.7 g/dL (6.4-8.2)
[2019-04-26 09:29] LABS: HEMOGLOBIN 6.9 g/dL (13.5-17.5)
[2019-04-26 09:59] LABS: EOSINOPHILS % (MANUAL) 5 % (0-4); LYMPHOCYTES % (MANUAL) 9 % (16-48); MONOCYTES % (MANUAL) 9 % (0-11.0); NEUTROPHILS % (MANUAL) 77 (42-76)
[2019-04-26] MEDS: CHLORHEXIDINE GLUCONATE 15 ML UDC MM SCH ×2 (10:49→17:02)
[2019-04-26] MEDS: DOCUSATE SODIUM LIQ 100 MG/10 ML UDC GT SCH ×2 (10:49→16:59)
[2019-04-26] MEDS: SUCRALFATE 1 G/10 ML UDC GT SCH ×2 (10:49→22:42)
[2019-04-26] MEDS: ZINC SULFATE 220 MG CAPSULE GT SCH ×2 (10:50→16:59)
[2019-04-26] MEDS: TRAMADOL HCL 50 MG TABLET GT SCH ×2 (10:50→17:00)
[2019-04-26] MEDS: LACTOBACILLUS RHAMNOSUS GG 1 EACH CAP.SPRINK GT SCH ×2 (10:50→16:59)
[2019-04-26] MEDS: PANTOPRAZOLE 40 MG/PACK PACK GT SCH (10:50)
[2019-04-26] MEDS: VIT B CMPLX 3/FA/VIT C/BIOTIN 1 TAB TABLET PO SCH (10:50)
[2019-04-26] MEDS: ASCORBIC ACID 500 MG TABLET GT SCH ×2 (10:50→17:00)
[2019-04-26] MEDS: DAKINS QUARTER STRENGTH (0.125%) 480 ML BOTTLE TOP SCH (10:51)
[2019-04-26] MEDS: PROSOURCE / PROSTAT (PYXIS) 30 ML UDC GT SCH ×3 (10:51→17:02)
[2019-04-26] MEDS: HYDROGEL DRESSING 90 GM TUBE TP SCH (10:52)
[2019-04-26] MEDS: SILVER SULFADIAZINE CREAM 25 GM TUBE TP SCH (10:53)
--- NOTE | 2019-04-26 12:00 | NUR ---
RN NOTES BS-82 MG/DL, STABLE TURN AND REPOSTION Q 2 HR, HOB KEEP ELEVATED, CALL LIGHT WITHIN TO REACH, PATIENT ON AIR MATTRESS. CONTINUED MONITORING.
[2019-04-26] MEDS: Z GUARD REMEDY 2 OZ OINT TP PRN (13:39)
--- NOTE | 2019-04-26 16:20 | NUR ---
rn notes started blood transfusion at this time one unit 289 ml. Patient stable v/s taken bp- 120/73, p-87, r-16, t-98.2, o2-100 trachea /vent patient. Patient has no acute respiratory distress, unlabored, no complaining of pain at this time. keep hob elevated on aspiration precaution, call light within to reach, safety precaution maintained all the time.
--- NOTE | 2019-04-26 16:40 | NUR ---
RN Notes Patient stable no s/s of bleed reaction, no acute respiratory distress, v/s taken bp-120/72, p-79, r-16, t-98, 02-100. increased infusion 75 ml/hr continued monitoring.
[2019-04-26] MEDS: ATENOLOL 25 MG TABLET GT SCH (17:11)
--- NOTE | 2019-04-26 17:30 | NUR ---
rn notes patient stable bs-97 mg/dl, no acute respiratory distress, no complaining of pain, administered scheduled medication via g-tube, no s/s of reaction. t-98 rectally, p-83, r-16, bp -125/78, o2-100, increase blood infusing 125 ml/hr intact, assist turn and reposition q 2 hr, call light within to reach. continued monitoring.
--- NOTE | 2019-04-26 18:30 | NUR ---
RN NOTES PATIENT STABLE V/S WNL T-98.2, P-87, R-16, BP-119/78, 02-100. CONTINUED INFUSION OF BLOOD NO S/S OF PAIN, NO PAIN. ASSIST TURN AND REPOSITION Q 2 HR, NO RESPIRATORY DISTRESS. CALL LIGHT WITHIN TO REACH. ENDORSED ONCOMING NURSE FOLLOW PLAN OF CARE.
--- NOTE | 2019-04-26 20:37 | NUR ---
TRAY DRIER OPERATOR INITIAL NOTE RECEIVED PATIENT IS NON-VERBAL AND OBTUNDED. ON VENT AND TOLERATING WELL. PORTEX #8, AC 14, TV550, FIO2 40%, WITH NO PEEP. IV ACCESS ON T MIDLINE S/L. PATIENT HAS A FLEXI SEAL PATENT WITH NO LEAKAGE. PATIENT HAS MULTIPLE WOUNDS WILL CONTINUE WITH WOUND CARE. PATIENT ON THE MONITOR SHOWN SINUS RHYTHM. MONITORING TEMP THROUGH RECTAL, TEMP IS WNL, S/P 1 UNIT PRBC, NO A/R NOTED. ALL SAFETY PRECAUTIONS APPLIED. VENT EQUIPMENT PLUGGED INTO RED OUTLET. WILL CONTINUE TO MONITOR PATIENT.
[2019-04-27] VITALS: BP 128/84
[2019-04-27] MEDS: BLOOD SUGAR DIAGNOSTIC 1 EACH STRIP IN SCH ×6 (01:06→23:43)
[2019-04-27] MEDS: NEPRO 1,000 ML BOTTLE GT PRN (03:08)
[2019-04-27 04:23] VITALS: BP 125/79
[2019-04-27 06:23] LABS: BASOPHILS % (AUTO) 0.3 % (0.0-2.0); EOSINOPHILS % (AUTO) 6.4 % (0.0-6.0); HEMATOCRIT 25 % (39-51); HEMOGLOBIN 8.2 g/dL (13.5-17.5); LYMPHOCYTES # (AUTO) 0.6 /CMM (0.8-4.8); LYMPHOCYTES % (AUTO) 6.6 % (20.0-44.0); MEAN CORPUSCULAR HGB CONC 33 g/dl (31.0-36.0); MEAN CORPUSCULAR VOLUME 85 fL (80-96); MONOCYTES # (AUTO) 0.8 /CMM (0.1-1.30); MONOCYTES % (AUTO) 8.1 % (2.0-12.0); NEUTROPHILS # (AUTO) 7.7 /CMM (1.8-8.9); NEUTROPHILS % (AUTO) 78.6 % (43.0-81.0); PLATELET COUNT (AUTO) 164 /CMM (150-450); RED BLOOD CELL COUNT(AUTO) 2.96 MIL/uL (4.5-6.0); WHITE BLOOD COUNT (AUTO) 9.7 K/uL (4.3-11.0)
--- NOTE | 2019-04-27 06:27 | NUR ---
ELECTROMECHANICAL TECHNOLOGIST CLOSING NOTE PATIENT IS NON-VERBAL AND OBTUNDED. ON VENT AND TOLERATING WELL. PORTEX #8, AC 14, TV550, FIO2 40%, WITH NO PEEP. IV ACCESS ON T MIDLINE S/L. PATIENT HAS MULTIPLE WOUNDS WILL CONTINUE WITH WOUND CARE. PATIENT ON THE MONITOR SHOWN SINUS RHYTHM. MONITORING TEMP THROUGH RECTAL, TEMP IS WNL, S/P 1 UNIT PRBC, NO A/R NOTED. ALL SAFETY PRECAUTIONS APPLIED. VENT EQUIPMENT PLUGGED INTO RED OUTLET, PT NPO FOR PER MACATH PLACEMENT, CONSENT DONE. WILL CONTINUE TO MONITOR PATIENT.
[2019-04-27 06:45] LABS: ALBUMIN 2.2 g/dL (3.4-5.0); BILIRUBIN,TOTAL 0.4 mg/dL (0.2-1.0); CALCIUM, SERUM 9.2 mg/dL (8.5-10.1); MAGNESIUM 3.1 mg/dL (1.8-2.4); PHOSPHORUS 4.3 mg/dL (2.5-4.9); POTASSIUM 4.6 mmol/L (3.5-5.1); TOTAL PROTEIN, SERUM 6.1 g/dL (6.4-8.2)
[2019-04-27 06:48] LABS: CREATININE 11.5 mg/dL (0.6-1.3)
--- NOTE | 2019-04-27 07:10 | NUR ---
DREDGE MASTER OPENING NOTE RECEIVED REPORT FROM [facility] SHIFT NURSE. PATIENT IS NON-VERBAL AND OBTUNDED. TOLERATING VENT SETTINGS WELL. IV ACCESS ON RIGHT UPPER ARM MIDLINE PATENT, INTACT. ON OPEN HEARTH FURNACE LABORER SINUS RHYTHM. MONITORING TEMP THROUGH RECTAL, TEMP IS WNL. BED IN LOW POSITION, LOCKED, CALL LIGHT WITHIN REACH. NPO STATUS IN PLACE FOR UPCOMING PROCEDURE, CONSENT SIGNED.
[2019-04-27 08:00] VITALS: BP 131/80
[2019-04-27] MEDS: CHLORHEXIDINE GLUCONATE 15 ML UDC MM SCH ×3 (08:29→17:49)
[2019-04-27] MEDS: VIT B CMPLX 3/FA/VIT C/BIOTIN 1 TAB TABLET PO SCH (08:30)
[2019-04-27] MEDS: ZINC SULFATE 220 MG CAPSULE GT SCH ×3 (08:30→17:51)
[2019-04-27] MEDS: TRAMADOL HCL 50 MG TABLET GT SCH ×3 (08:30→17:50)
[2019-04-27] MEDS: LACTOBACILLUS RHAMNOSUS GG 1 EACH CAP.SPRINK GT SCH ×3 (08:30→17:50)
[2019-04-27] MEDS: ASCORBIC ACID 500 MG TABLET GT SCH ×3 (08:30→17:50)
[2019-04-27] MEDS: HYDROGEL DRESSING 90 GM TUBE TP SCH (08:31)
[2019-04-27] MEDS: DAKINS QUARTER STRENGTH (0.125%) 480 ML BOTTLE TOP SCH (08:31)
[2019-04-27] MEDS: SILVER SULFADIAZINE CREAM 25 GM TUBE TP SCH (08:31)
[2019-04-27] MEDS: PANTOPRAZOLE 40 MG/PACK PACK GT SCH (08:33)
[2019-04-27] MEDS: SUCRALFATE 1 G/10 ML UDC GT SCH ×2 (08:33→22:41)
[2019-04-27] MEDS: DOCUSATE SODIUM LIQ 100 MG/10 ML UDC GT SCH ×3 (08:33→17:50)
[2019-04-27] MEDS: PROSOURCE / PROSTAT (PYXIS) 30 ML UDC GT SCH ×3 (09:00→17:00)
--- NOTE | 2019-04-27 11:37 | NUR ---
RT RECEIVED PT TRACH'D ON [facility] VENT WITH SETTINGS PER MD ORDER. DYNAMIC ETCHING PROCESSOR DONE. SPARE TRACH AND AMBU BAG AT HEAD OF BED. VENT PLUGGED INTO RED OUTLET. ALARMS ON AND FUNCTIONING PROPERLY. SUCTIONS SMALL AMOUNTS OF THICK, YELLOW SECRETIONS. NO SOB NOTED AT THIS TIME. WILL CONTINUE TO MONITOR THE PT FOR ANY CHANGES. Addendum: 04/27/19 at 1724 by JAVID HART RT Amended: Links added.
[2019-04-27] MEDS: ACETAMINOPHEN 650 MG/20.3 ML UDC GT PRN (11:49)
[2019-04-27 12:00] VITALS: BP 124/78
[2019-04-27] MEDS ORDERED: HEPARIN SODIUM, PORCINE 1,000 UNIT/ML VIAL ONE (14:53)
[2019-04-27] MEDS ORDERED: LIDOCAINE HCL/PF 1% 30 ML SDV ONE (14:53)
--- NOTE | 2019-04-27 15:45 | NUR ---
PT TAKEN TO SURGERY VIA GURNEY IN STABLE CONDITION
[2019-04-27 16:00] VITALS: BP 123/80
[2019-04-27] MEDS ORDERED: FENTANYL PF 100MCG/2ML AMPUL ONE ×2 (16:14→16:19)
[2019-04-27] MEDS ORDERED: IOHEXOL 240MG/ML 50 ML IV ONE (16:27)
--- NOTE | 2019-04-27 17:35 | NUR ---
pt returned from surgery in stable condition
[2019-04-27] MEDS: ATENOLOL 25 MG TABLET GT SCH (17:49)
--- NOTE | 2019-04-27 19:12 | NUR ---
RT NOTES: PT RECEIVED TRACHED ON [facility] VENT ON CHARTED SETTINGS. NO SIGNS OF RESP DISTRESS/SOB NOTED. AIRWAY AND SECURED. ADVANCED PRACTICE NURSE DONE. PT SUCTIONED. ALARMS SET AND AUDIBLE. AMBUBAG AND SPARE TRACH AT BEDSIDE. WILL CONT TO MONITOR. Addendum: 04/27/19 at 1959 by KATIE ALEXANDER RT Amended: Links added.
[2019-04-27 20:00] VITALS: BP 120/75
[2019-04-27] MEDS: SULFAMETHOXAZOLE/TRIMETHOPRIM 5 ML in IV D5W 250 ML IV SCH (22:42)
[2019-04-28] VITALS: BP 106/76
--- NOTE | 2019-04-28 00:10 | NUR ---
CONTINUOUS IMPROVEMENT DIRECTOR NOTE: RECEIVED BEDSIDE REPORT FROM LON BENNETT. PT OBTUNDED WITH NO ACUTE DISTRESS NOTED. NO FACIAL GRIMACING OR ANY SIGNS OF PAIN NOTED. ON [facility] VENT, SETTINGS ORDERED, SATURATING WELL. SINUS RHYTHM ON TELE MONITOR HR 77 BPM. RIGHT UPPER ARM MIDLINE INTACT AND PATENT, FLUSHING WELL. GT INTACT, NO RESIDUAL NOTED AT THIS TIME. KEPT CLEAN, DRY AND COMFORTABLE. SAFETY AND FALL PRECAUTIONS OBSERVED AND MAINTAINED. WILL CONTINUE TO MONITOR PT.
--- NOTE | 2019-04-28 00:10 | NUR ---
TICKETER NOTE: RECEIVED BEDSIDE REPORT FROM SABRINA FOURNIER RN. PT IS ALERT AND ORIENTED X3. ABLE TO MAKE NEEDS KNOWN. NO APPARENT DISTRESS NOTED. ON 2LPM NASAL CANNULA, NO SOB NOTED AT THIS TIME. DENIES PAIN AND DISCOMFORT. SINUS RHYTHM ON TELE MONITOR HR 63BPM. PER LON BENNETT INSULIN LANTUS AND SLIDING SCALE INSULIN NOT GIVEN DUE TO PATIENT'S HYPLOGYCEMIA EPISODE IN AM. VILLARREAL CATH INTACT AND DRAINING WELL. KEPT CLEAN, DRY AND COMFORTABLE. SAFETY AND FALL PRECAUTIONS OBSERVED AND MAINTAINED. WILL CONTINUE TO MONITOR PT. Addendum: 04/28/19 at 0105 by REMBERTO OBRIEN RN WRONG PT DOCUMENTATION
[2019-04-28 05:00] VITALS: BP 125/81
[2019-04-28] MEDS: SULFAMETHOXAZOLE/TRIMETHOPRIM 5 ML in IV D5W 250 ML IV SCH ×3 (05:47→20:42)
[2019-04-28] MEDS: BLOOD SUGAR DIAGNOSTIC 1 EACH STRIP IN SCH ×3 (05:48→17:32)
[2019-04-28] MEDS: NEPRO 1,000 ML BOTTLE GT PRN (05:48)
--- NOTE | 2019-04-28 06:54 | NUR ---
SUPERINTENDENT NOTE: NO CHANGES NOTED THROUGHOUT THE SHIFT. NO APPARENT DISTRESS NOTED. NO FACIAL GRIMACING OR ANY SIGNS OF PAIN NOTED. ON [facility] VENT, SETTINGS ORDERED. SATURATING WELL. GT INTACT AND PATENT, NO RESIDUAL NOTED AT THIS TIME. ON TELE MONITOR SINUS RHYTHM HR 89 BPM. RIGHT UPPER ARM MIDLINE INTACT AND PATENT, FLUSHING WELL. KEPT CLEAN, DRY AND COMFORTABLE. SAFETY AND FALL PRECAUTIONS OBSERVED AND MAINTAINED. WILL ENDORSE TO DAY SHIFT RN FOR CONTINUITY OF CARE
[2019-04-28 08:00] VITALS: BP 141/83
--- NOTE | 2019-04-28 08:18 | NUR ---
RN OPENING NOTES PT IN BED TOLERATING VENT. NO SIGNS OF SOB OR PAIN NOTED AT PRESENT TIME. REPORT RECEIVED FROM BUSINESS OPERATIONS DIRECTOR RN. WILL CONTINUE TO MONITOR.
[2019-04-28] MEDS: CHLORHEXIDINE GLUCONATE 15 ML UDC MM SCH ×2 (09:09→17:14)
[2019-04-28] MEDS: LACTOBACILLUS RHAMNOSUS GG 1 EACH CAP.SPRINK GT SCH ×2 (09:10→17:14)
[2019-04-28] MEDS: ASCORBIC ACID 500 MG TABLET GT SCH ×2 (09:10→17:14)
[2019-04-28] MEDS: ZINC SULFATE 220 MG CAPSULE GT SCH ×2 (09:10→17:14)
[2019-04-28] MEDS: VIT B CMPLX 3/FA/VIT C/BIOTIN 1 TAB TABLET PO SCH (09:10)
[2019-04-28] MEDS: TRAMADOL HCL 50 MG TABLET GT SCH ×3 (09:10→18:19)
[2019-04-28] MEDS: SUCRALFATE 1 G/10 ML UDC GT SCH ×2 (09:10→20:46)
[2019-04-28] MEDS: PANTOPRAZOLE 40 MG/PACK PACK GT SCH (09:10)
[2019-04-28] MEDS: DOCUSATE SODIUM LIQ 100 MG/10 ML UDC GT SCH ×2 (09:11→17:14)
[2019-04-28] MEDS: DAKINS QUARTER STRENGTH (0.125%) 480 ML BOTTLE TOP SCH (09:11)
[2019-04-28] MEDS: PROSOURCE / PROSTAT (PYXIS) 30 ML UDC GT SCH ×3 (09:11→17:16)
[2019-04-28] MEDS: HYDROGEL DRESSING 90 GM TUBE TP SCH (09:12)
[2019-04-28] MEDS: SILVER SULFADIAZINE CREAM 25 GM TUBE TP SCH (09:12)
--- NOTE | 2019-04-28 09:57 | NUR ---
PT HD. AMIKACIN RANDOM ORDERED AND OBTAINED FROM PT.
[2019-04-28 12:00] VITALS: BP 141/79
[2019-04-28 16:00] VITALS: BP 136/77
[2019-04-28] MEDS: ATENOLOL 25 MG TABLET GT SCH (17:15)
--- NOTE | 2019-04-28 18:23 | NUR ---
RT END OF THE SHIFT REPORT, PT. REC @0700 AM 59 Y OLD MALE NON RESPONSIVE TRACH'D PORTEX # 8 ON VENT WITH NOTED SETTINGS. EQUAL CHEST RISE NOTED B/S BILATERALLY RALES SUX'D FOR MINIMAL AMT OF WHITE THICK SECRETIONS, NO CHANGES T/O DAY. HME, MICROFILM MACHINE OPERATOR DONE. TRACH CARE DONE. PT. VENT PLUGGED INTO RED OUT LET. AMBU BAG/EXTRA TRACH AT BEDSIDE. WILL CONTINUE TO MONITOR. REPORT WILL PASS TO PM SHIFT. Addendum: 04/28/19 at 1824 by SHIRLEY REID RT Amended: Links added.
--- NOTE | 2019-04-28 18:41 | NUR ---
FOLLOWED UP WITH PENDING AMIKACIN LEVEL SPOKE WITH INFUSION NURSE WHO SAID SHE WILL FOLLOW UP WITH LAB Book&Table.
--- NOTE | 2019-04-28 18:43 | NUR ---
RN CLOSING NOTES PT IN BED TOLERATING VENT SETTINGS. PT TOLERATING G-TUBE FEDING AT 50 MLS/HR NO RESIDUAL. PT WOUND CARE DONE PER WOUND TX PLAN. PT REPOSITIONED Q2HRS. HOB ELEVATED. HD DONE 2.5 L OUTPUT PT SCHEDULED FOR HD TOMORROW WELL. BED IS LOCKED AND IN LOWEST POSITION. WILL ENDORSE DENNIS TO FLOATER OPERATOR NURSE.
[2019-04-28 20:00] VITALS: BP 132/84
[2019-04-28] MEDS: AMIKACIN 500 MG in IV D5W 100 ML IV PRN (20:06)
[2019-04-29] VITALS: BP 134/83
[2019-04-29] MEDS: BLOOD SUGAR DIAGNOSTIC 1 EACH STRIP IN SCH ×5 (00:40→23:39)
[2019-04-29] MEDS: NEPRO 1,000 ML BOTTLE GT PRN (03:49)
[2019-04-29 04:00] VITALS: BP 111/73
--- NOTE | 2019-04-29 05:40 | NUR ---
TELE-1/MAINTENANCE MACHINIST COMPLETE BED BATH GIVEN. PT HAD LARGE BM, NOTED WITH [place]MAN RED BLOOD. PHAM CARE RENDERED. ALL WOUND DRESSINGS CHANGED ORDERED. ALL LINENS CHANGED. WILL ENDORSE TO MONRNING SHIFT.
[2019-04-29] MEDS: SULFAMETHOXAZOLE/TRIMETHOPRIM 5 ML in IV D5W 250 ML IV SCH ×3 (05:45→21:07)
[2019-04-29 08:00] VITALS: BP 118/68
[2019-04-29] MEDS: CHLORHEXIDINE GLUCONATE 15 ML UDC MM SCH ×2 (08:53→17:29)
[2019-04-29] MEDS: PANTOPRAZOLE 40 MG/PACK PACK GT SCH (08:53)
[2019-04-29] MEDS: ZINC SULFATE 220 MG CAPSULE GT SCH ×2 (08:53→17:28)
[2019-04-29] MEDS: ASCORBIC ACID 500 MG TABLET GT SCH ×2 (08:53→17:28)
[2019-04-29] MEDS: VIT B CMPLX 3/FA/VIT C/BIOTIN 1 TAB TABLET PO SCH (08:54)
[2019-04-29] MEDS: LACTOBACILLUS RHAMNOSUS GG 1 EACH CAP.SPRINK GT SCH ×2 (08:55→17:28)
[2019-04-29] MEDS: TRAMADOL HCL 50 MG TABLET GT SCH ×2 (08:55→17:27)
[2019-04-29] MEDS: DOCUSATE SODIUM LIQ 100 MG/10 ML UDC GT SCH ×2 (08:57→17:28)
[2019-04-29] MEDS: PROSOURCE / PROSTAT (PYXIS) 30 ML UDC GT SCH ×3 (08:57→17:25)
[2019-04-29] MEDS: SUCRALFATE 1 G/10 ML UDC GT SCH ×2 (08:57→21:07)
[2019-04-29] MEDS: SILVER SULFADIAZINE CREAM 25 GM TUBE TP SCH (09:15)
[2019-04-29] MEDS: DAKINS QUARTER STRENGTH (0.125%) 480 ML BOTTLE TOP SCH (09:15)
[2019-04-29] MEDS: HYDROGEL DRESSING 90 GM TUBE TP SCH (09:16)
--- NOTE | 2019-04-29 10:13 | NUR ---
HEART SURGEON NOTES OPENING PATIENT IN BED NON VERBAL OPEN EYES WHEN NAME CALLED. NO SOB OR DISCOMFORT NOTED AT THIS TIME. NO RESIDUAL NOTED FROM GT. PT ON NEPHRO @50ML/H. BED AT THE LOWEST POSITION AND LOCKED , CALL LIGHT WITHIN REACH.
[2019-04-29 11:06] LABS: BASOPHILS # (AUTO) 0.1 /CMM (0.0-0.2); BASOPHILS % (AUTO) 0.9 % (0.0-2.0); EOSINOPHILS % (AUTO) 10.9 % (0.0-6.0); HEMATOCRIT 26 % (39-51); HEMOGLOBIN 8.2 g/dL (13.5-17.5); LYMPHOCYTES # (AUTO) 0.8 /CMM (0.8-4.8); LYMPHOCYTES % (AUTO) 9.8 % (20.0-44.0); MEAN CORPUSCULAR HGB CONC 32 g/dl (31.0-36.0); MEAN CORPUSCULAR VOLUME 86 fL (80-96); MONOCYTES # (AUTO) 0.9 /CMM (0.1-1.30); MONOCYTES % (AUTO) 10.9 % (2.0-12.0); NEUTROPHILS # (AUTO) 5.6 /CMM (1.8-8.9); NEUTROPHILS % (AUTO) 67.5 % (43.0-81.0); PLATELET COUNT (AUTO) 169 /CMM (150-450); RED BLOOD CELL COUNT(AUTO) 2.96 MIL/uL (4.5-6.0); WHITE BLOOD COUNT (AUTO) 8.2 K/uL (4.3-11.0)
[2019-04-29 12:00] VITALS: BP 127/80
[2019-04-29 12:10] LABS: ALBUMIN 2.3 g/dL (3.4-5.0); BILIRUBIN,TOTAL 0.3 mg/dL (0.2-1.0); MAGNESIUM 2.9 mg/dL (1.8-2.4); PHOSPHORUS 4.7 mg/dL (2.5-4.9); POTASSIUM 4.5 mmol/L (3.5-5.1); TOTAL PROTEIN, SERUM 6.5 g/dL (6.4-8.2)
[2019-04-29 12:13] LABS: CREATININE 9.5 mg/dL (0.6-1.3)
[2019-04-29 16:00] VITALS: BP 118/72
[2019-04-29] MEDS: ATENOLOL 25 MG TABLET GT SCH (17:28)
--- NOTE | 2019-04-29 17:31 | NUR ---
RT END OF THE SHIFT REPORT, PT. REC @0700 AM 59 Y OLD MALE NON RESPONSIVE TRACH'D PORTEX # 8 ON VENT WITH NOTED SETTINGS. EQUAL CHEST RISE NOTED B/S BILATERALLY RALES SUX'D FOR MINIMAL AMT OF WHITE THICK SECRETIONS, NO CHANGES T/O DAY. HME, CIRCUS RIDER DONE. INNER CANNULA CHANGED TRACH CARE DONE. PT. VENT PLUGGED INTO RED OUT LET. AMBU BAG/EXTRA TRACH AT BEDSIDE. WILL CONTINUE TO MONITOR. REPORT WILL PASS TO PM SHIFT. Addendum: 04/29/19 at 1733 by SHIRLEY REID RT Amended: Links added.
--- NOTE | 2019-04-29 19:05 | NUR ---
PHOTOGEOLOGIST NOTES PATIENT IN BED A/OX1 NON VERBAL, OPEN EYES WHEN NAME IS CALLED. NO MAJOR CHANGES DURING DAY. ALL NEEDS ATTENDED. BED AT THE LOWEST POSITION LOCKED, CALL LIGHT WITHIN REACH. THERE IS A SKIN TEAR ON LOWER BACK OF THE PATIENT , DOCUMENTED, WILL ORDER WOUND CONSULT, INFORMED THERAPEUTIC SPECIALIST NURSE FOR DENNIS.
--- NOTE | 2019-04-29 19:42 | NUR ---
report given by the day shift rn that the patient is supposed for discharge to a SNF today but held due to bloody stool last night, no bm this day shift, will collect stool sampkle for stool ob,and follow up labs in am
[2019-04-29 20:00] VITALS: BP_SYST 121; BP_SYST 126; BP_DIAS 85
[2019-04-30] VITALS (7 sets, daily range): BP systolic 108–144; BP diastolic 67–82
[2019-04-30] MEDS: SULFAMETHOXAZOLE/TRIMETHOPRIM 5 ML in IV D5W 250 ML IV SCH ×3 (04:26→23:16)
--- NOTE | 2019-04-30 04:35 | NUR ---
noted patient vomited a large amount of stomach content. feeding temporarily off and head ob bed elevated 45 degrees, will continue to minitor. no bm noted,
[2019-04-30] MEDS: IV NS 0.9% 250 ML IV PRN (04:38)
[2019-04-30] MEDS: NEPRO 1,000 ML BOTTLE GT PRN (04:48)
[2019-04-30] MEDS: BLOOD SUGAR DIAGNOSTIC 1 EACH STRIP IN SCH ×3 (06:13→18:24)
[2019-04-30 07:04] LABS: BASOPHILS # (AUTO) 0.1 /CMM (0.0-0.2); BASOPHILS % (AUTO) 0.6 % (0.0-2.0); EOSINOPHILS % (AUTO) 9.2 % (0.0-6.0); HEMATOCRIT 27 % (39-51); HEMOGLOBIN 8.7 g/dL (13.5-17.5); LYMPHOCYTES % (AUTO) 10.3 % (20.0-44.0); MEAN CORPUSCULAR HGB CONC 33 g/dl (31.0-36.0); MEAN CORPUSCULAR VOLUME 86 fL (80-96); MONOCYTES % (AUTO) 10.5 % (2.0-12.0); NEUTROPHILS # (AUTO) 6.7 /CMM (1.8-8.9); NEUTROPHILS % (AUTO) 69.4 % (43.0-81.0); PLATELET COUNT (AUTO) 172 /CMM (150-450); WHITE BLOOD COUNT (AUTO) 9.6 K/uL (4.3-11.0)
[2019-04-30 07:25] LABS: ALBUMIN 2.2 g/dL (3.4-5.0); BILIRUBIN,TOTAL 0.3 mg/dL (0.2-1.0); MAGNESIUM 2.9 mg/dL (1.8-2.4); PHOSPHORUS 4.6 mg/dL (2.5-4.9); POTASSIUM 4.3 mmol/L (3.5-5.1); TOTAL PROTEIN, SERUM 6.5 g/dL (6.4-8.2)
[2019-04-30 07:28] LABS: CREATININE 10.5 mg/dL (0.6-1.3)
--- NOTE | 2019-04-30 07:39 | NUR ---
RN OPENING NOTES RECEIVED PATIENT RESTING IN BED COMFORTABLY AT THIS TIME, SHOWS NO S/SX OF RESP DISTRESS OR PAIN. HE IS OBTUNDED, OPENS EYES, NON-VERBAL, BEDBOUND. HE HAS PORTEX 8 TRACH AND IS ON MECHANICAL VENTILATION, TOLERATING SETTINGS WELL. TELE MONITOR SHOWING SR. PT HAS GENERALIZED EDEMA. MULTIPLE SKIN WOUNDS THROUGHOUT BODY, WILL CHANGE DRESSINGS ACCORDING TO WOUND PLAN. HE IS RECEIVING NEPRO AT 50 CC/HR, TOLERATING WELL. ALEX MIDLINE IS INTACT, L CHEST WALL HD CATH IS INTACT. SAFETY MEASURES HAVE BEEN IMPLEMENTED, CALL LIGHT IS WITHIN REACH, BED IS IN LOWEST AND LOCKED POSITION, SIDE RIALS UP X2, WILL CONTINUE TO MONITOR FOR ANY CHANGES.
--- NOTE | 2019-04-30 07:39 | NUR ---
RT Pt received trached on mechanical ventilation with noted settings. Pt is awake and responds to stimuli when suctioned. Vent is plugged into red outlet. No SOB or respiratory distress noted at this time. Addendum: 04/30/19 at 0757 by TYRESE ROWE RT Amended: Links added.
[2019-04-30] MEDS: DOCUSATE SODIUM LIQ 100 MG/10 ML UDC GT SCH ×2 (09:00→16:31)
[2019-04-30] MEDS: VIT B CMPLX 3/FA/VIT C/BIOTIN 1 TAB TABLET PO SCH (09:38)
[2019-04-30] MEDS: CHLORHEXIDINE GLUCONATE 15 ML UDC MM SCH ×2 (09:38→16:31)
[2019-04-30] MEDS: ASCORBIC ACID 500 MG TABLET GT SCH ×2 (09:38→16:31)
[2019-04-30] MEDS: SUCRALFATE 1 G/10 ML UDC GT SCH ×2 (09:38→20:28)
[2019-04-30] MEDS: TRAMADOL HCL 50 MG TABLET GT SCH ×2 (09:38→16:31)
[2019-04-30] MEDS: PANTOPRAZOLE 40 MG/PACK PACK GT SCH (09:38)
[2019-04-30] MEDS: PROSOURCE / PROSTAT (PYXIS) 30 ML UDC GT SCH ×3 (09:38→16:32)
[2019-04-30] MEDS: ZINC SULFATE 220 MG CAPSULE GT SCH ×2 (09:38→16:31)
[2019-04-30] MEDS: LACTOBACILLUS RHAMNOSUS GG 1 EACH CAP.SPRINK GT SCH ×2 (09:38→16:31)
[2019-04-30] MEDS: SILVER SULFADIAZINE CREAM 25 GM TUBE TP SCH (09:48)
[2019-04-30] MEDS: HYDROGEL DRESSING 90 GM TUBE TP SCH (09:48)
[2019-04-30] MEDS: DAKINS QUARTER STRENGTH (0.125%) 480 ML BOTTLE TOP SCH (09:48)
--- NOTE | 2019-04-30 14:30 | NUR ---
PT TOLERATED HD WELL, VITAL SIGNS ARE STABLE. 2L WAS REMOVED. WAITING FOR AMIKACIN TROUGH TO ADMIN POST HD, WILL CONTINUE TO MONITOR
[2019-04-30] MEDS: ONDANSETRON HCL/PF 4 MG/2 ML VIAL IVP PRN (18:19)
[2019-04-30] MEDS: ATENOLOL 25 MG TABLET GT SCH (18:19)
--- NOTE | 2019-04-30 19:22 | NUR ---
RN CLOSING NOTES PATIENT IS RESTING COMFORTABLY IN BED AT THIS TIME, SHOWS NO S/SX OF RESP DISTRESS OR SOB. PT NEEDS HAVE BEEN MET, VITAL SIGNS ARE STABLE, NO ACUTE CHANGES OCCURRED THROUGHOUT THE SHIFT. PT TOLERATED HD WELL. SAFETY MEASURES HAVE BEEN IMPLEMENTED, CALL LIGHT IS WITHIN REACH, BED IS IN LOWEST AND LOCKED POSITION, SIDE RAILS UP X2, PT HAS BEEN ENDORSED TO NIGHTSHIFT RN FOR CONTINUITY OF CARE.
--- NOTE | 2019-04-30 19:53 | NUR ---
LEAN SIX SIGMA SENIOR SPECIALIST OPENING NOTE RECEIVED PATIENT WITH NO SIGNS OF ANY DISTRESS. PATIENT IS ON VENTILATOR AND TOLERATION WELL. PORTEX #8, AC 14, TV 550, FIO2 30%, AND NO PEEP. NO SIGNS OF OBSTRUCTION OF ANY SOB. PATIENT IS ON GTUBE FEEDINGS WERE HELD WHEN ARRIVED DUE TO SOME VOMITING. NO RESIDUAL IN GTUBE AND BEGAN THE NEPRO FEEDINGS AT 50ML/HR. PATIENT HAS MULTIPLE WOUNDS WILL APPLY WOUND CARE ORDERED. PATIENT HAS A ALEX MIDLINE PATENT AND FLUSHING WELL. ALL SAFETY PRECAUTIONS HAVE BEEN APPLIED. VENTILATOR IS PLUGGED IN RED OUTLET. BED IS IN LOCKED POSITION, SIDE RAILS UP X3. WILL CONTINUE TO MONITOR.
[2019-05-01] VITALS: BP 130/85
[2019-05-01] MEDS: BLOOD SUGAR DIAGNOSTIC 1 EACH STRIP IN SCH ×5 (00:29→23:07)
[2019-05-01] MEDS: ONDANSETRON HCL/PF 4 MG/2 ML VIAL IVP PRN ×2 (00:30→10:39)
[2019-05-01] MEDS: ACETAMINOPHEN 650 MG/20.3 ML UDC GT PRN (00:30)
[2019-05-01 04:00] VITALS: BP 122/77
[2019-05-01 06:39] LABS: CALCIUM, SERUM 8.5 mg/dL (8.5-10.1)
[2019-05-01 06:42] LABS: CREATININE 8.8 mg/dL (0.6-1.3)
--- NOTE | 2019-05-01 07:36 | NUR ---
WOUND CARE CONSULT: PT SEEN FOR RT SIDE OF NECK SLIGHT SKIN IRRITATION UNDER TRACH TIE. NO DRAINAGE OR REDNESS NOTED. NECK ASSESSED WITH RESPIRATORY THERAPIST AND TRACH TIE CHANGED, MEPILEX APPLIED TO AREA OF SKIN IRRITATION BY Annmarie WILL DISCUSS WITH SURGICAL TEAM CURRENTLY ON CASE. DEFER TO SURGICAL TEAM FOR WOUND TREATMENT PLAN. WILL SEE PRN. ALL SKIN PROTECTION MEASURES IN PLACE AND DISCUSSED WITH NURSING STAFF. Addendum: 05/01/19 at 0739 by ERLINDA ROBLERO WNDNU Amended: Links added.
--- NOTE | 2019-05-01 07:45 | NUR ---
RT RECEIVED PT TRACH'D ON [facility] VENT WITH SETTINGS PER MD ORDER. APPLICATION INTERNSHIP DONE. SPARE TRACH AND AMBU BAG AT BEDSIDE. VENT PLUGGED INTO RED OUTLET. SUCTIONED SMALL AMOUNTS OF THICK, YELLOW SECRETIONS. NO SOB NOTED AT THIS TIME. TRACH CARE DONE WITH ERLINDA (WOUND CARE NURSE AT BEDSIDE TO ASSIST). WILL CONTINUE TO MONITOR THE PT FOR ANY CHANGES. Addendum: 05/01/19 at 1705 by JAVID HART RT Amended: Links added.
--- NOTE | 2019-05-01 07:50 | NUR ---
RN OPENING NOTES RECEIVED REPORT FROM FILLER IN RN. PT IS IN BED TOLERATING VENT SETTINGS WELL. PT SHOWS NO SIGNS OF SOB OR PAIN AT PRESENT MOMENT. G-TUBE FEEDING RUNNING AT 40MLS/HR. PER REPORT PT HAD 1 EPISODE OF VOMITING. BED IS LOCKED AND IN LOWEST POSITION WITH SAFETY MEASURES IN PLACE. WILL CONTINUE TO MONITOR.
[2019-05-01] MEDS ORDERED: SULF10VI2 IV (07:52)
[2019-05-01] MEDS ORDERED: ALLA266C2 TP (07:52)
[2019-05-01] MEDS ORDERED: SODI473S8 TOP (07:52)
[2019-05-01] MEDS ORDERED: Hydrogel Dressing TP (07:52)
[2019-05-01] MEDS ORDERED: Silver Sulfadiazine Cream TP (07:52)
[2019-05-01] MEDS ORDERED: AMIK250V13 IJ (07:52)
[2019-05-01] MEDS ORDERED: IPRA0.2S9 NEB (07:52)
[2019-05-01 08:00] VITALS: BP 139/77
[2019-05-01] MEDS: SULFAMETHOXAZOLE/TRIMETHOPRIM 5 ML in IV D5W 250 ML IV SCH ×3 (08:08→22:30)
[2019-05-01] MEDS: VIT B CMPLX 3/FA/VIT C/BIOTIN 1 TAB TABLET PO SCH (08:39)
[2019-05-01] MEDS: SUCRALFATE 1 G/10 ML UDC GT SCH ×2 (08:39→21:23)
[2019-05-01] MEDS: LACTOBACILLUS RHAMNOSUS GG 1 EACH CAP.SPRINK GT SCH ×2 (08:39→17:06)
[2019-05-01] MEDS: ASCORBIC ACID 500 MG TABLET GT SCH ×2 (08:39→17:06)
[2019-05-01] MEDS: CHLORHEXIDINE GLUCONATE 15 ML UDC MM SCH ×2 (08:39→17:05)
[2019-05-01] MEDS: ZINC SULFATE 220 MG CAPSULE GT SCH ×2 (08:39→17:06)
[2019-05-01] MEDS: DOCUSATE SODIUM LIQ 100 MG/10 ML UDC GT SCH ×2 (08:39→17:05)
[2019-05-01] MEDS: TRAMADOL HCL 50 MG TABLET GT SCH ×2 (08:40→17:06)
[2019-05-01] MEDS: DAKINS QUARTER STRENGTH (0.125%) 480 ML BOTTLE TOP SCH (08:40)
[2019-05-01] MEDS: PANTOPRAZOLE 40 MG/PACK PACK GT SCH (08:40)
[2019-05-01] MEDS: HYDROGEL DRESSING 90 GM TUBE TP SCH (08:41)
[2019-05-01] MEDS: SILVER SULFADIAZINE CREAM 25 GM TUBE TP SCH (08:41)
[2019-05-01] MEDS: PROSOURCE / PROSTAT (PYXIS) 30 ML UDC GT SCH ×3 (09:14→17:06)
[2019-05-01] MEDS: NEPRO 1,000 ML BOTTLE GT PRN (10:21)
[2019-05-01 12:00] VITALS: BP_SYST 124; BP_SYST 138; BP_DIAS 73; BP_DIAS 78
[2019-05-01 16:00] VITALS: BP 124/78
--- NOTE | 2019-05-01 16:08 | NUR ---
DISCHARGE ORDERS WRITTEN. PT WAS NOT ABLE TO GO BACK TO [facility]ENTER [facility] DUE TO NO ISOLATION BED. CM AWARE AND LOOKING INTO DIFFERENT FACILITIES.
[2019-05-01] MEDS: ATENOLOL 25 MG TABLET GT SCH (17:05)
--- NOTE | 2019-05-01 19:08 | NUR ---
RN CLOSING NOTES REPORT GIVEN TO DISTRIBUTION CENTER ADMINISTRATOR RN. PT STABLE. REPORT GIVEN TO DISTRIBUTION CENTER ADMINISTRATOR RN FOR DENNIS.
--- NOTE | 2019-05-01 19:30 | NUR ---
BASEBALL SEWER HAND OPENING NOTES RECEIVED PATIENT OBTUNDED. PATIENT IS OBTUNDED AND VENTILATOR DEPENDENT. NO SIGNS OF ANY DISTRESS AND TOLERATING VENT WELL. PATIENT VENT PORTEX #8, AC 14, TV 550, FIO2 30%, AND NO PEEP. PATIENT ON THE MONITOR IS SINUS RHYTHM AND HR IN THE 90"S. PATIENT HAS ALEX MIDLINE PATENT AND FLUSHING WELL AND A LT IJ HS CATH WITH NO SIGNS OF COMPLICATIONS. GTUBE SITE HAS NO COMPLICATIONS WITH GTUBE FEEDING OF NEPRO OF 40ML/HR WITH LITTLE RESIDUAL. PATIENT WAS MULTIPLE WOUNDS WILL APPLY WOUND CARE ORDERED. ALL SAFETY PRECAUTIONS HAVE BEEN APPLIED. WILL CONTINUE TO MONITOR PATIENT.
--- NOTE | 2019-05-01 19:42 | NUR ---
PT RECEIVED TRACH PORTEX [facility] WITH NOTED SETTINGS. PT IS AWAKE, NON VERBAL, RESPONDS TO STIMULI WHEN SUCTIONED . SX'D AND LAVAGED NEEDED. WINDMILL MECHANIC DONE. VENT ALARMS SET AND AUDIBLE. AMBU BAG AT BEDSIDE. TRACH SECURE. WILL CONTINUE TO MONITOR.
[2019-05-01 20:00] VITALS: BP 116/76
[2019-05-02] VITALS: BP_SYST 112; BP_DIAS 65; BP_DIAS 80
[2019-05-02 04:00] VITALS: BP 135/67
[2019-05-02] MEDS: IV NS 0.9% 250 ML IV PRN (04:40)
[2019-05-02] MEDS: BLOOD SUGAR DIAGNOSTIC 1 EACH STRIP IN SCH ×3 (05:49→18:32)
--- NOTE | 2019-05-02 07:03 | NUR ---
TALENT ADVISOR CLOSING NOTES PATIENT IN BED NO SIGNS OF DISCOMFORT. TOLERATING VENT WELL. ALL SAFETY PRECAUTIONS APPLIED. VENT PLUGGED IN RED OUTLET. ENDORSED PATIENT TO MORNING SHIFT NURSE TO [facility].
[2019-05-02 07:07] LABS: CALCIUM, SERUM 8.6 mg/dL (8.5-10.1); POTASSIUM 4.2 mmol/L (3.5-5.1)
[2019-05-02 07:08] LABS: CREATININE 10.1 mg/dL (0.6-1.3)
--- NOTE | 2019-05-02 07:28 | NUR ---
RN OPENING NOTES RECEIVED PATIENT RESTING IN BED COMFORTABLY AT THIS TIME , SHOWS NO S/SX OF RESP DISTRESS OR SOB. HE IS OBTUNDED, NON-VERBAL, AND BED BOUND. HE HAS PORTEX 8 TRACH ON MECHANICAL VENTILATION, TOLERATING SETTINGS WELLS, CHEST RISES AND FALLS EVENLY. TELE MONITOR SHOWING SR, HR IN THE 80'S. SKIN IS NOT INTACT, WILL ADDRESS WOUNDS ACCORDING TO WOUND PLAN. HE IS RECEIVING NEPRO AT 45 ML/HR VIA GTUBE, NO RESIDUAL NOTED. ALEX MIDLINE IS INTACT, LEFT IJ HD CATH IS INTACT. SAFETY MEASURES HAVE BEEN IMPLEMENTED, CALL LIGHT IS WITHIN REACH, BED IS IN LOWEST AND LOCKED POSITION, SIDE RAILS UP X2, WILL CONTINUE TO MONITOR FOR ANY CHANGES.
--- NOTE | 2019-05-02 07:33 | NUR ---
RT Pt received trached on the vent with noted settings. Vent is plugged into red outlet. Pt is awake and responds to stimuli when suctioned. No SOB or respiratory distress ntoed. Addendum: 05/02/19 at 1132 by TYRESE ROWE RT Amended: Links added.
[2019-05-02 08:00] VITALS: BP 114/70
[2019-05-02] MEDS: PROSOURCE / PROSTAT (PYXIS) 30 ML UDC GT SCH ×3 (08:09→16:23)
[2019-05-02] MEDS: LACTOBACILLUS RHAMNOSUS GG 1 EACH CAP.SPRINK GT SCH ×2 (08:10→16:20)
[2019-05-02] MEDS: PANTOPRAZOLE 40 MG/PACK PACK GT SCH (08:10)
[2019-05-02] MEDS: DOCUSATE SODIUM LIQ 100 MG/10 ML UDC GT SCH ×2 (08:10→16:21)
[2019-05-02] MEDS: TRAMADOL HCL 50 MG TABLET GT SCH ×2 (08:10→16:21)
[2019-05-02] MEDS: SULFAMETHOXAZOLE/TRIMETHOPRIM 5 ML in IV D5W 250 ML IV SCH ×2 (08:10→15:17)
[2019-05-02] MEDS: SUCRALFATE 1 G/10 ML UDC GT SCH ×2 (08:10→22:36)
[2019-05-02] MEDS: HYDROGEL DRESSING 90 GM TUBE TP SCH (08:11)
[2019-05-02] MEDS: DAKINS QUARTER STRENGTH (0.125%) 480 ML BOTTLE TOP SCH (08:11)
[2019-05-02] MEDS: ZINC SULFATE 220 MG CAPSULE GT SCH ×2 (08:11→16:20)
[2019-05-02] MEDS: ASCORBIC ACID 500 MG TABLET GT SCH ×2 (08:11→16:20)
[2019-05-02] MEDS: CHLORHEXIDINE GLUCONATE 15 ML UDC MM SCH ×2 (08:11→16:20)
[2019-05-02] MEDS: VIT B CMPLX 3/FA/VIT C/BIOTIN 1 TAB TABLET PO SCH (08:11)
[2019-05-02] MEDS: SILVER SULFADIAZINE CREAM 25 GM TUBE TP SCH (08:12)
[2019-05-02 12:00] VITALS: BP 126/71
--- NOTE | 2019-05-02 12:48 | NUR ---
PT TOLERATED HD WELL, 2L REMOVED. VITAL SIGNS ARE STABLE.
[2019-05-02 16:00] VITALS: BP 125/66
[2019-05-02] MEDS: ATENOLOL 25 MG TABLET GT SCH (17:09)
[2019-05-02] MEDS: AMIKACIN 500 MG in IV D5W 100 ML IV PRN (17:09)
[2019-05-02] MEDS: NEPRO 1,000 ML BOTTLE GT PRN (17:10)
--- NOTE | 2019-05-02 18:56 | NUR ---
RN CLOSING NOTES PATIENT IS RESTING COMFORTABLY IN BED, SHOWS NO S/SX OF RESP DISTRESS OR SOB. NO ACUTE CHANGES OCCURRED THROUGHOUT THE SHIFT, VITAL SIGNS ARE STABLE, PT NEEDS HAVE BEEN MET. PT WAS DIALYZED TODAY, TOLERATED WELL. DC IS PENDING, WAITING FOR PLACEMENT. SAFETY MEASURES HAVE BEEN IMPLEMENTED, CALL LIGHT IS WITHIN REACH, BED IS IN LOWEST AND LOCKED POSITION, SIDE RAILS UP X2, WILL ENDORSE TO NIGHTSHIFT RN FOR CONTINUITY OF CARE.
[2019-05-02 20:00] VITALS: BP 135/78
--- NOTE | 2019-05-02 20:04 | NUR ---
MACHINE TESTER INITIAL NOTES RECEIVED PATIENT RESTING IN BED COMFORTABLY AT THIS TIME , SHOWS NO S/SX OF RESP DISTRESS OR SOB. HE IS OBTUNDED, NON-VERBAL, AND BED BOUND. HE HAS PORTEX 8 TRACH ON MECHANICAL VENTILATION, TOLERATING SETTINGS WELL. TELE MONITOR SR, HR IN THE 90'S. SKIN ISSUES, WILL ADDRESS WOUNDS ACCORDING TO WOUND PLAN. ON NEPRO AT 45 ML/HR VIA GTUBE, NO RESIDUAL NOTED. ALXE MIDLINE IS INTACT, LEFT IJ HD CATH IS INTACT. SAFETY MEASURES IN PLACE , CALL LIGHT IS WITHIN REACH, BED IS IN LOWEST AND LOCKED POSITION, SIDE RAILS UP X2, WILL CONTINUE TO MONITOR FOR ANY CHANGES.
[2019-05-03 00:15] VITALS: BP 125/78
[2019-05-03] MEDS: BLOOD SUGAR DIAGNOSTIC 1 EACH STRIP IN SCH ×5 (00:55→23:24)
[2019-05-03] MEDS: SULFAMETHOXAZOLE/TRIMETHOPRIM 5 ML in IV D5W 250 ML IV SCH ×4 (00:57→23:36)
[2019-05-03 04:00] VITALS: BP 111/75
--- NOTE | 2019-05-03 06:34 | NUR ---
ELECTRONIC WARFARE TECHNICIAN CLOSING NOTES PATIENT RESTING IN BED COMFORTABLY AT THIS TIME , SHOWS NO S/SX OF RESP DISTRESS OR SOB. HE IS OBTUNDED, NON-VERBAL, AND BED BOUND. HE HAS PORTEX 8 TRACH ON MECHANICAL VENTILATION, TOLERATING SETTINGS WELL. TELE MONITOR SR, HR IN THE 90'S. SKIN ISSUES, WILL ADDRESS WOUNDS ACCORDING TO WOUND PLAN. ON NEPRO AT 45 ML/HR VIA GTUBE, NO RESIDUAL NOTED. ALEX MIDLINE IS INTACT, LEFT IJ HD CATH IS INTACT. SAFETY MEASURES IN PLACE , CALL LIGHT IS WITHIN REACH, BED IS IN LOWEST AND LOCKED POSITION, SIDE RAILS UP X2, WILL CONTINUE TO MONITOR FOR ANY CHANGES.
[2019-05-03 06:57] LABS: CALCIUM, SERUM 8.4 mg/dL (8.5-10.1)
[2019-05-03 06:59] LABS: CREATININE 8.3 mg/dL (0.6-1.3)
--- NOTE | 2019-05-03 07:00 | NUR ---
RN NOTES RECEIVED PT ON BED,VENT/TRACH DEPENDENT, [place] VENT SETTING WELL, OBTUNDENT, NON VERBAL, TRACH CARE DONE, ON TELE SR HR IN 80' , NEPRO AT 50CC/HR RUNNING VIA GT ,TOLERATING WELL, NO RESIDUAL NOTED, R UPPER ARM MIDLINE SITE , CLEAN, DRY AND INTACT, SR UP x3, CALL LIGHT WITHIN EASY REACH, BED LOCKED AND IN LOWEST POSITION, CONTINUE TO MONITOR.
[2019-05-03 08:00] VITALS: BP 131/79
[2019-05-03] MEDS: DOCUSATE SODIUM LIQ 100 MG/10 ML UDC GT SCH ×2 (08:49→16:55)
[2019-05-03] MEDS: SUCRALFATE 1 G/10 ML UDC GT SCH ×2 (08:49→21:16)
[2019-05-03] MEDS: CHLORHEXIDINE GLUCONATE 15 ML UDC MM SCH ×2 (08:49→16:56)
[2019-05-03] MEDS: PANTOPRAZOLE 40 MG/PACK PACK GT SCH (08:50)
[2019-05-03] MEDS: VIT B CMPLX 3/FA/VIT C/BIOTIN 1 TAB TABLET PO SCH (08:50)
[2019-05-03] MEDS: TRAMADOL HCL 50 MG TABLET GT SCH ×2 (08:50→16:56)
[2019-05-03] MEDS: ZINC SULFATE 220 MG CAPSULE GT SCH ×2 (08:50→16:56)
[2019-05-03] MEDS: LACTOBACILLUS RHAMNOSUS GG 1 EACH CAP.SPRINK GT SCH ×2 (08:50→16:56)
[2019-05-03] MEDS: ASCORBIC ACID 500 MG TABLET GT SCH ×2 (08:50→16:56)
[2019-05-03] MEDS: DAKINS QUARTER STRENGTH (0.125%) 480 ML BOTTLE TOP SCH (08:51)
[2019-05-03] MEDS: SILVER SULFADIAZINE CREAM 25 GM TUBE TP SCH (08:51)
[2019-05-03] MEDS: HYDROGEL DRESSING 90 GM TUBE TP SCH (08:53)
[2019-05-03] MEDS: PROSOURCE / PROSTAT (PYXIS) 30 ML UDC GT SCH ×3 (08:55→17:53)
[2019-05-03 12:00] VITALS: BP 129/72
--- NOTE | 2019-05-03 12:00 | NUR ---
RN NOTES PT STABLE, TRACH SUCTIONING DONE , TOLERATING TF WELL, CONTINUE TO MONITOR.
[2019-05-03] MEDS: NEPRO 1,000 ML BOTTLE GT PRN (13:55)
[2019-05-03 16:00] VITALS: BP 132/80
[2019-05-03] MEDS: ATENOLOL 25 MG TABLET GT SCH (17:53)
--- NOTE | 2019-05-03 18:00 | NUR ---
RN NOTES NO SIGNIFICANT CHANGES NOTED ON THIS SHIFT, VSS STABLE, SR UPx3, CALL LIGHT WITHIN EASY REACH , WILL ENDOSE TO DOCTOR OF PODIATRIC MEDICINE NURSE FOR CONTINUITY OF CARE .
--- NOTE | 2019-05-03 19:47 | NUR ---
HOME HEALTH NURSE LICENSED PRACTICAL INITIAL NOTES RECEIVED PATIENT RESTING IN BED COMFORTABLY AT THIS TIME , SHOWS NO S/SX OF RESP DISTRESS OR SOB. HE IS OBTUNDED, NON-VERBAL, AND BED BOUND. HE HAS PORTEX 8 TRACH ON MECHANICAL VENTILATION, TOLERATING SETTINGS WELL. TELE MONITOR SR, HR IN THE 90'S. SKIN ISSUES, WILL ADDRESS WOUNDS ACCORDING TO WOUND PLAN. ON NEPRO AT 45 ML/HR VIA GTUBE, NO RESIDUAL NOTED. ALEX MIDLINE IS INTACT, LEFT IJ HD CATH IS INTACT. SAFETY MEASURES IN PLACE , CALL LIGHT IS WITHIN REACH, BED IS IN LOWEST AND LOCKED POSITION, SIDE RAILS UP X2, WILL CONTINUE TO MONITOR FOR ANY CHANGES.
[2019-05-03 20:00] VITALS: BP 131/78
--- NOTE | 2019-05-04 00:06 | NUR ---
RT NOTE Pt rec'd trached on [facility] vent on AC Mode. No resp distress or sob noted. Trach is patent and Secured. Sx'd for thick mod amt of pale yellow secretions. Alarms are set and audible. Vent plugged into red outlet. Ambu bag bedside. Will continue to monitor. Addendum: 05/04/19 at 0008 by EFRAIN PATTERSON RT Amended: Links added.
[2019-05-04 00:10] VITALS: BP 137/85
[2019-05-04 04:00] VITALS: BP 140/77
[2019-05-04] MEDS: BLOOD SUGAR DIAGNOSTIC 1 EACH STRIP IN SCH ×4 (06:04→23:41)
[2019-05-04 06:51] LABS: CALCIUM, SERUM 8.5 mg/dL (8.5-10.1); POTASSIUM 4.2 mmol/L (3.5-5.1)
[2019-05-04 06:52] LABS: CREATININE 9.1 mg/dL (0.6-1.3)
--- NOTE | 2019-05-04 07:10 | NUR ---
SAP ARIBA CONSULTANT OPENING NOTE: RECEIVED PATIENT IN BED. AWAKE, ABLE TO OPEN EYES. ON MECHANICAL VENTILATION WITH PORTEX 8 AND SETTINGS OF AC:14. TV:550, FIO2: 30, PEEP:5. NO SOB NOT ACUTE DISTRESS NOTED. TOLERATING SETTINGS WELL. ON CARDIAC MONITORING WITH SINUS RHYTHM OF 85 NOTED. GTUBE GTUBE, PATENT AND IN PLACE WITH NEPRO @ 50CC/HR AND TOLERATING WELL. LEFT HD CATHETER IN PLACE, DRESSING DRY, INTACT AND CLEAN. IV SITE IN ALEX MIDLINE PATENT, DRESSING DRY AND INTACT. MULTIPLE WOUND SITES NOTED. BED LOCKED, IN LOW POSITION, SEMI-FOWLERS. CALL LIGHT IN REACH. WILL CONTINUE TO MONITOR.
[2019-05-04 08:00] VITALS: BP 132/83
[2019-05-04] MEDS: SULFAMETHOXAZOLE/TRIMETHOPRIM 5 ML in IV D5W 250 ML IV SCH ×3 (08:50→23:40)
[2019-05-04] MEDS: CHLORHEXIDINE GLUCONATE 15 ML UDC MM SCH ×2 (08:50→16:28)
[2019-05-04] MEDS: SUCRALFATE 1 G/10 ML UDC GT SCH ×2 (08:50→20:57)
[2019-05-04] MEDS: DOCUSATE SODIUM LIQ 100 MG/10 ML UDC GT SCH ×2 (08:50→16:28)
[2019-05-04] MEDS: PANTOPRAZOLE 40 MG/PACK PACK GT SCH (08:51)
[2019-05-04] MEDS: TRAMADOL HCL 50 MG TABLET GT SCH ×2 (08:51→16:29)
[2019-05-04] MEDS: VIT B CMPLX 3/FA/VIT C/BIOTIN 1 TAB TABLET PO SCH (08:51)
[2019-05-04] MEDS: ZINC SULFATE 220 MG CAPSULE GT SCH ×2 (08:51→16:28)
[2019-05-04] MEDS: LACTOBACILLUS RHAMNOSUS GG 1 EACH CAP.SPRINK GT SCH ×2 (08:51→16:28)
[2019-05-04] MEDS: ASCORBIC ACID 500 MG TABLET GT SCH ×2 (08:51→16:28)
[2019-05-04] MEDS: PROSOURCE / PROSTAT (PYXIS) 30 ML UDC GT SCH ×3 (09:11→16:28)
[2019-05-04] MEDS: ONDANSETRON HCL/PF 4 MG/2 ML VIAL IVP PRN (11:57)
[2019-05-04 12:00] VITALS: BP 120/85
[2019-05-04] MEDS: DAKINS QUARTER STRENGTH (0.125%) 480 ML BOTTLE TOP SCH (15:56)
[2019-05-04] MEDS: HYDROGEL DRESSING 90 GM TUBE TP SCH (15:56)
[2019-05-04] MEDS: SILVER SULFADIAZINE CREAM 25 GM TUBE TP SCH (15:57)
[2019-05-04 16:00] VITALS: BP 145/83
[2019-05-04] MEDS: ATENOLOL 25 MG TABLET GT SCH (18:32)
--- NOTE | 2019-05-04 18:51 | NUR ---
WASTEWATER PROJECT ENGINEER CLOSING NOTE: PATIENT IN BED. AWAKE WITH EYE TRACKING. APPEARS COMFORTABLE, NO SOB, NO DISTRESS NOTED. TOLERATING MECHANICAL VENTILATION WELL. IV SITE AT ALEX MIDLINE PATENT, DRESSING CLEAN AND INTACT. GTUBE CONNECTED AND PATENT, CURRENTLY TOLERATING GTUBE FEEDING OF NEPRO AT 40CC/HR. NO CHANGES NOTED ON SHIFT. SAFETY ENSURED AND OBSERVED. BED IN LOCKED, LOW AND SEMI-PEÑA'S POSITION. WILL ENDORSE TO ONCOMING NURSE FOR CONTINUITY OF CARE.
[2019-05-04 20:12] VITALS: BP 128/78
--- NOTE | 2019-05-04 21:21 | NUR ---
RT NOTE PT RECEIVED TRACHED ON MECHANICAL VENTILATION. PORTEX [address] AMBU BAG/BACK UP TRACH @ BEDSIDE. SX DONE, TRACH SECURED AND PATENT. ALARMS ON AND AUDIBLE. VENT PLUGGED TO RED OUTLET. NO SOB NOTED AT THIS TIME. WILL MONITOR T/O SHIFT. CONT. PULSE OX CONNECTED. Addendum: 05/04/19 at 2121 by USAMA JOHSNON RT Amended: Links added.
[2019-05-05] VITALS (7 sets, daily range): BP systolic 118–144; BP diastolic 60–86
[2019-05-05] MEDS: BLOOD SUGAR DIAGNOSTIC 1 EACH STRIP IN SCH ×4 (05:40→23:52)
--- NOTE | 2019-05-05 06:21 | NUR ---
RN CLOSING NOTE PT DENNIS, FOR PENDING DC, AWAITING PLACEMENT.
--- NOTE | 2019-05-05 07:10 | NUR ---
RN INITIAL NOTE PATIENT IN BED, AWAKE ONLY OPENS EYES. ON VENT, SATING 100%. ON GTF, NEPRO AT 50 ML/HR ORDERED. ON TELE MONITOR, SR. HAS A RIGHT UA MIDLINE, TKO. HAS LEFT HD CATH. NO SIGNS OF ANY PAIN NOR SOB AT THIS TIME. BED LOCKED AND IN LOWEST POSITION. WILL CONTINUE TO MONITOR. PATIENT IS PENDING SNF PLACEMENT.
[2019-05-05 07:12] LABS: CALCIUM, SERUM 8.3 mg/dL (8.5-10.1); POTASSIUM 3.8 mmol/L (3.5-5.1)
[2019-05-05 07:24] LABS: CREATININE 7.6 mg/dL (0.6-1.3)
[2019-05-05] MEDS: SULFAMETHOXAZOLE/TRIMETHOPRIM 5 ML in IV D5W 250 ML IV SCH ×3 (08:20→23:33)
[2019-05-05] MEDS: PROSOURCE / PROSTAT (PYXIS) 30 ML UDC GT SCH ×3 (08:24→16:03)
[2019-05-05] MEDS: ZINC SULFATE 220 MG CAPSULE GT SCH ×2 (08:24→16:03)
[2019-05-05] MEDS: ASCORBIC ACID 500 MG TABLET GT SCH ×2 (08:24→16:03)
[2019-05-05] MEDS: LACTOBACILLUS RHAMNOSUS GG 1 EACH CAP.SPRINK GT SCH ×2 (08:24→16:03)
[2019-05-05] MEDS: DOCUSATE SODIUM LIQ 100 MG/10 ML UDC GT SCH ×2 (08:24→16:03)
[2019-05-05] MEDS: VIT B CMPLX 3/FA/VIT C/BIOTIN 1 TAB TABLET PO SCH (08:24)
[2019-05-05] MEDS: CHLORHEXIDINE GLUCONATE 15 ML UDC MM SCH ×2 (08:24→16:03)
[2019-05-05] MEDS: TRAMADOL HCL 50 MG TABLET GT SCH ×2 (08:24→16:03)
[2019-05-05] MEDS: SUCRALFATE 1 G/10 ML UDC GT SCH ×2 (08:24→20:36)
[2019-05-05] MEDS: PANTOPRAZOLE 40 MG/PACK PACK GT SCH (08:24)
[2019-05-05] MEDS: DAKINS QUARTER STRENGTH (0.125%) 480 ML BOTTLE TOP SCH (08:36)
[2019-05-05] MEDS: HYDROGEL DRESSING 90 GM TUBE TP SCH (08:37)
[2019-05-05] MEDS: SILVER SULFADIAZINE CREAM 25 GM TUBE TP SCH (08:37)
[2019-05-05] MEDS: NEPRO 1,000 ML BOTTLE GT PRN (10:42)
[2019-05-05] MEDS: ATENOLOL 25 MG TABLET GT SCH (18:17)
--- NOTE | 2019-05-05 18:50 | NUR ---
RN CLOSING NOTE PATIENT IN BED, AWAKE AND ALERTX1, NON VERBAL. ALL MEDS GIVEN, ALL NEEDS MET. WOUND TX ORDERED. REPOSITIONED PER PROTOCOL. PATIENT HAS NO SIGNS OF ANY DISTRESS NOR PAIN AT THIS TIME. PENDING SNF PLACEMENT. HD SCHEDULED FOR TOMORROW. BED LOCKED AND IN LOWEST POSITION. WILL ENDORSE TO NOC SHIFT FOR DENNIS
--- NOTE | 2019-05-05 19:40 | NUR ---
RN NOTES RECEIVED PATIENT IN BED, AWAKE ONLY OPENS EYES. ON VENT, SATING 100%. ON GTF, NEPRO AT 50 ML/HR ORDERED. ON TELE MONITOR, SR. HAS A RIGHT UA MIDLINE, TKO. HAS LEFT HD CATH. NO SIGNS OF ANY PAIN NOR SOB AT THIS TIME.NO FACIAL GRIMACING NOTED. SAFETY MEASURES IN PLACED, BED LOCKED AND IN LOWEST POSITION. WILL CONTINUE TO MONITOR ACCORDINGLY. PATIENT IS PENDING SNF PLACEMENT.
--- NOTE | 2019-05-05 22:35 | NUR ---
RN NOTES ALL NEEDS ATTENDED, SAFETY MEASURES IN PLACED, VENT SETTINGS TOLERATING WELL, GT INTACT AND PATENT, FEEDING TOLERATING WELL, ENDORSED TO LON LIMA, FOR CONTINUITY OF CARE.
--- NOTE | 2019-05-05 22:35 | NUR ---
RN NOTES RECEIVED PATIENT FROM LON HANNAH FOR CONTINUATION OF CARE, PATIENT IN BED ASLEEP, BUT OPEN EYES SPONTANEOUSLY, ON MECHANICAL VENTILATOR, WITH 100% O2 SAT LEVEL, NO SOB/ACUTE DISTRESS NOTED AT THIS TIME, GT IN PLACED, ON GTF NEPRO AT 50 ML/HR INFUSING WELL AND PATIENT TOLERATED WELL NSR ON THE TELE MONITOR AT THIS TIME WITH HR IN 80S, RIGHT UA MIDLINE TKO, LEFT HD CATH IN PLACED, SAFETY MEASURES IN PLACED, BED LOCKED AND IN LOWEST POSITION, WILL CONTINUE TO MONITOR CLOSELY.
[2019-05-05] MEDS: INSULIN REGULAR, HUMAN 100 UNIT/ML 3 ML VIAL SQ PRN (23:52)
[2019-05-06] VITALS: BP 148/89
[2019-05-06 04:00] VITALS: BP 148/93
--- NOTE | 2019-05-06 05:23 | NUR ---
RT NOTE PT RECEIVED ON [facility] VENT ON THE FOLLOWING SETTINGS: AC 14, 550, 40%, +0. PT SX'D. NO RESP DISTRESS OR SOB NOTED AT THIS TIME. NO BREATHING TX SCHEDULED. VENT IS PLUGGED INTO RED OUTLET AND ALARMS ARE ON AND AUDIBLE. SPARE TRACH AND AMBU BAG ARE AT BEDSIDE. WILL CONT TO MONITOR PT THROUGH OUT SHIFT. Addendum: 05/06/19 at 0525 by PAOLA LYONS RT Amended: Links added.
[2019-05-06] MEDS: INSULIN REGULAR, HUMAN 100 UNIT/ML 3 ML VIAL SQ PRN (06:05)
[2019-05-06] MEDS: BLOOD SUGAR DIAGNOSTIC 1 EACH STRIP IN SCH ×3 (06:05→17:28)
[2019-05-06 06:24] LABS: BASOPHILS # (AUTO) 0.1 /CMM (0.0-0.2); BASOPHILS % (AUTO) 0.8 % (0.0-2.0); EOSINOPHILS % (AUTO) 7.3 % (0.0-6.0); HEMATOCRIT 22 % (39-51); HEMOGLOBIN 7.2 g/dL (13.5-17.5); LYMPHOCYTES # (AUTO) 1.1 /CMM (0.8-4.8); LYMPHOCYTES % (AUTO) 13.3 % (20.0-44.0); MEAN CORPUSCULAR HGB CONC 33 g/dl (31.0-36.0); MEAN CORPUSCULAR VOLUME 86 fL (80-96); MONOCYTES # (AUTO) 1.1 /CMM (0.1-1.30); MONOCYTES % (AUTO) 14.4 % (2.0-12.0); NEUTROPHILS # (AUTO) 5.1 /CMM (1.8-8.9); NEUTROPHILS % (AUTO) 64.2 % (43.0-81.0); PLATELET COUNT (AUTO) 295 /CMM (150-450); RED BLOOD CELL COUNT(AUTO) 2.56 MIL/uL (4.5-6.0); WHITE BLOOD COUNT (AUTO) 7.9 K/uL (4.3-11.0)
[2019-05-06 06:39] LABS: CALCIUM, SERUM 8.7 mg/dL (8.5-10.1); MAGNESIUM 2.5 mg/dL (1.8-2.4); PHOSPHORUS 4.4 mg/dL (2.5-4.9); POTASSIUM 4.3 mmol/L (3.5-5.1)
[2019-05-06 06:42] LABS: CREATININE 8.5 mg/dL (0.6-1.3)
--- NOTE | 2019-05-06 06:58 | NUR ---
RN NOTES RECEIVED PATIENT IN BED ASLEEP, BUT OPEN EYES SPONTANEOUSLY, ON MECHANICAL VENTILATOR, WITH 97-100% O2 SAT LEVEL, NO SOB/ACUTE DISTRESS NOTED AT THIS TIME DURING THE NIGHT, NSR IN TELE MONITOR WITH HR 80S AT THIS TIME, , GT IN PLACED, ON GTF NEPRO AT 50 ML/HR INFUSING WELL AND PATIENT TOLERATED WELL, RIGHT UA MIDLINE TKO, LEFT HD CATH IN PLACED, WOUND TREATMENT DONE, AND ALL MEDS DUE GIVEN, SAFETY MEASURES IN PLACED, BED LOCKED AND IN LOWEST POSITION, NO SIGNIFICANT CHANGE IN CONDITION DURING THE NIGHT, WILL ENDORSE CONTINUITY OF CARE TO ONCOMING NURSE.
--- NOTE | 2019-05-06 07:50 | NUR ---
RAFTER CUTTING MACHINE OPERATOR NOTES RECEIVED PATIENT IN BED ASLEEP, BUT OPEN EYES SPONTANEOUSLY, ON MECHANICAL VENTILATOR, WITH 97-100% O2 SAT LEVEL, NO SOB/ACUTE DISTRESS AT THIS TIME NOTED AT THIS TIME , , GT IN PLACED, ON GTF NEPRO AT 50 ML/HR INFUSING WELL AND PATIENT TOLERATED WELL, RIGHT UA MIDLINE TKO, LEFT HD CATH IN PLACED, ,SAFETY MEASURES IN PLACED, BED LOCKED AND IN LOWEST POSITION, WITH TRACH TO VENT SETTING ORDERED ,AMBU BAG AT HON AT ALL TIME , BOTH ARM WITH EDEMA KEEP ELEVATED ON PILLOW TOLERATED , WILL MONITOR
[2019-05-06 08:00] VITALS: BP 124/75
[2019-05-06] MEDS: SUCRALFATE 1 G/10 ML UDC GT SCH ×2 (08:08→21:12)
[2019-05-06] MEDS: PANTOPRAZOLE 40 MG/PACK PACK GT SCH (08:08)
[2019-05-06] MEDS: ASCORBIC ACID 500 MG TABLET GT SCH ×2 (08:09→16:35)
[2019-05-06] MEDS: LACTOBACILLUS RHAMNOSUS GG 1 EACH CAP.SPRINK GT SCH ×2 (08:09→16:35)
[2019-05-06] MEDS: DOCUSATE SODIUM LIQ 100 MG/10 ML UDC GT SCH ×2 (08:09→16:35)
[2019-05-06] MEDS: VIT B CMPLX 3/FA/VIT C/BIOTIN 1 TAB TABLET PO SCH (08:09)
[2019-05-06] MEDS: ZINC SULFATE 220 MG CAPSULE GT SCH ×2 (08:09→16:35)
[2019-05-06] MEDS: TRAMADOL HCL 50 MG TABLET GT SCH ×2 (08:09→16:35)
[2019-05-06] MEDS: DAKINS QUARTER STRENGTH (0.125%) 480 ML BOTTLE TOP SCH (08:10)
[2019-05-06] MEDS: PROSOURCE / PROSTAT (PYXIS) 30 ML UDC GT SCH ×3 (08:10→16:35)
[2019-05-06] MEDS: CHLORHEXIDINE GLUCONATE 15 ML UDC MM SCH ×2 (08:10→16:34)
[2019-05-06] MEDS: HYDROGEL DRESSING 90 GM TUBE TP SCH (08:11)
[2019-05-06] MEDS: SILVER SULFADIAZINE CREAM 25 GM TUBE TP SCH (08:11)
[2019-05-06] MEDS: NEPRO 1,000 ML BOTTLE GT PRN (08:21)
[2019-05-06] MEDS: SULFAMETHOXAZOLE/TRIMETHOPRIM 5 ML in IV D5W 250 ML IV SCH ×2 (08:31→16:25)
--- NOTE | 2019-05-06 10:43 | NUR ---
television agent note hd started as ordered, turn reposition done as ordered, keep clean dry
[2019-05-06 12:00] VITALS: BP 145/75
--- NOTE | 2019-05-06 12:54 | NUR ---
director telemetry note hd completed .2l of fluids removed [id number] p 82
--- NOTE | 2019-05-06 13:13 | NUR ---
MOTOR VEHICLES SUPERVISOR NOTE AMIKACIN LEVEL 10.7 OK TO HOLD DOSE FOR NOW SPOKE WITH PHARMACIST ELISA
[2019-05-06] MEDS ORDERED: EPOETIN ALFA (10,000 UNIT) 10,000 UNIT/ML VIAL SQ ONE (15:00)
[2019-05-06 16:00] VITALS: BP 131/70
[2019-05-06] MEDS: ATENOLOL 25 MG TABLET GT SCH (17:28)
--- NOTE | 2019-05-06 18:36 | NUR ---
E COMMERCE MERCHANT NOTE ALL NEEDS ATTENDED, WITH TRACH TO VENT SETTING ORDERED ,KEEP CLEAN DRY TURN REPOSITION , ON G TUBE FEEDING ORDERED, WILL CONT TO MONITOR
--- NOTE | 2019-05-06 19:30 | NUR ---
RN NOTES RECEIVED PATIENT IN BED ASLEEP, BUT OPEN EYES SPONTANEOUSLY, ON MECHANICAL VENTILATOR, WITH 100% O2 SAT LEVEL AT THIS TIME, NO SOB/ACUTE DISTRESS NOTED AT THIS TIME, NSR IN TELE MONITOR WITH HR 80S AT THIS TIME, , GT IN PLACED, ON GTF NEPRO AT 50 ML/HR INFUSING WELL AND PATIENT TOLERATED WELL, RIGHT UA MIDLINE TKO, LEFT HD CATH IN PLACED, SAFETY MEASURES IN PLACED, BED LOCKED AND IN LOWEST POSITION, ON CONTACT ISOLATION, WILL CONTINUE TO MONITOR CLOSELY.
--- NOTE | 2019-05-06 19:40 | NUR ---
RN NOTES, ENDORSED PATIENT IN STABLE CONDITION TO LON RAMIREZ FOR CONTINUATION OF CARE.
[2019-05-06 20:00] VITALS: BP 131/74
[2019-05-07] VITALS: BP_SYST 111; BP_SYST 131; BP_DIAS 69; BP_DIAS 74
[2019-05-07] MEDS: SULFAMETHOXAZOLE/TRIMETHOPRIM 5 ML in IV D5W 250 ML IV SCH ×2 (00:28→09:09)
[2019-05-07] MEDS: INSULIN REGULAR, HUMAN 100 UNIT/ML 3 ML VIAL SQ PRN ×2 (00:48→06:29)
[2019-05-07] MEDS: BLOOD SUGAR DIAGNOSTIC 1 EACH STRIP IN SCH ×3 (00:49→12:12)
[2019-05-07 04:00] VITALS: BP 112/77
--- NOTE | 2019-05-07 07:15 | NUR ---
RN INITIAL NOTE PATIENT ASLEEP, BUT EASILY AROUSABLE TO NAME AND TOUCH. ALERT AND ORIENTED X1. NON VERBAL. ON VENT, SATING WELL AT 100%. ON TELE MONITOR, SR. ON GTF NEPRO AT 50 ML/HR. HAS A RIGHT UA MIDLINE, TKO. STILL PENDING SNF PLACEMENT. NO COMPLAINS OF ANY PAIN NOR SOB AT THIS TIME. PATIENT ON A SCHEDULED ULTRAM. BED LOCKED AND IN LOWEST POSITION. WILL CONTINUE TO MONITOR
[2019-05-07 08:00] VITALS: BP 131/74
[2019-05-07] MEDS: CHLORHEXIDINE GLUCONATE 15 ML UDC MM SCH (08:13)
[2019-05-07] MEDS: PANTOPRAZOLE 40 MG/PACK PACK GT SCH (08:13)
[2019-05-07] MEDS: LACTOBACILLUS RHAMNOSUS GG 1 EACH CAP.SPRINK GT SCH (08:13)
[2019-05-07] MEDS: SUCRALFATE 1 G/10 ML UDC GT SCH (08:13)
[2019-05-07] MEDS: ASCORBIC ACID 500 MG TABLET GT SCH (08:13)
[2019-05-07] MEDS: DOCUSATE SODIUM LIQ 100 MG/10 ML UDC GT SCH (08:13)
[2019-05-07] MEDS: ZINC SULFATE 220 MG CAPSULE GT SCH (08:13)
[2019-05-07] MEDS: VIT B CMPLX 3/FA/VIT C/BIOTIN 1 TAB TABLET PO SCH (08:13)
[2019-05-07] MEDS: TRAMADOL HCL 50 MG TABLET GT SCH (08:14)
[2019-05-07] MEDS: PROSOURCE / PROSTAT (PYXIS) 30 ML UDC GT SCH ×2 (08:15→12:16)
[2019-05-07] MEDS: Z GUARD REMEDY 2 OZ OINT TP PRN (08:28)
[2019-05-07] MEDS: SILVER SULFADIAZINE CREAM 25 GM TUBE TP SCH (08:28)
[2019-05-07 08:48] LABS: ALBUMIN 1.9 g/dL (3.4-5.0); BILIRUBIN,TOTAL 0.2 mg/dL (0.2-1.0); CALCIUM, SERUM 8.3 mg/dL (8.5-10.1); MAGNESIUM 2.4 mg/dL (1.8-2.4); PHOSPHORUS 3.9 mg/dL (2.5-4.9); POTASSIUM 3.9 mmol/L (3.5-5.1); TOTAL PROTEIN, SERUM 5.6 g/dL (6.4-8.2)
[2019-05-07 08:49] LABS: CREATININE 7.5 mg/dL (0.6-1.3)
[2019-05-07] MEDS: HYDROGEL DRESSING 90 GM TUBE TP SCH (09:09)
[2019-05-07 09:35] LABS: BASOPHILS # (AUTO) 0.1 /CMM (0.0-0.2); EOSINOPHILS % (AUTO) 5.9 % (0.0-6.0); HEMATOCRIT 23 % (39-51); HEMOGLOBIN 7.3 g/dL (13.5-17.5); LYMPHOCYTES # (AUTO) 0.9 /CMM (0.8-4.8); LYMPHOCYTES % (AUTO) 11.1 % (20.0-44.0); MEAN CORPUSCULAR HGB CONC 33 g/dl (31.0-36.0); MEAN CORPUSCULAR VOLUME 87 fL (80-96); MONOCYTES # (AUTO) 1.2 /CMM (0.1-1.30); NEUTROPHILS # (AUTO) 5.3 /CMM (1.8-8.9); PLATELET COUNT (AUTO) 263 /CMM (150-450); RED BLOOD CELL COUNT(AUTO) 2.59 MIL/uL (4.5-6.0); WHITE BLOOD COUNT (AUTO) 7.9 K/uL (4.3-11.0)
--- NOTE | 2019-05-07 11:28 | NUR ---
RN NOTE REPORT GIVEN TO KENNY, TALKED TO PAU FORREST FOR DENNIS AT THE SNF. WINDOW MAKER TIME AT 1300 PER DIGITAL AD TRAFFICKER
--- NOTE | 2019-05-07 11:31 | NUR ---
RN NOTE TRIED CALLING PATIENT'S SON RONALD, NO ANSWER. CALLED THE PATIENT'S DAUGHTER MAC. SHE ANSWERED AND IS AWARE OF THE PATIENT'S DISCHARGE TODAY AT 1300
[2019-05-07 12:00] VITALS: BP 140/71
--- NOTE | 2019-05-07 15:45 | NUR ---
RN NOTES RECEIVED HAND OFF REPORT FROM NATALIA FORREST, FOR CONTINUITY OF CARE.
--- NOTE | 2019-05-07 16:06 | NUR ---
PATIENT HAS BEEN DISCHARGED TO [facility]. EXIT CARE WAS UTILIZED DURING DC. TRANSFER REPORT GIVEN TO PAU FORREST. FAMILY MADE AWARE.
== END 2019-05-07 16:05 | DRG 711 ==
LOC: ER 12:13 → ICU 14:08 → TELE1 04-08 20:29
PROVIDERS: ADMIT Internal Medicine; ATTEND Internal Medicine
PROC: 5A1955Z Respiratory Ventilation, Greater than 96 Consecutive Hours (ICD-10-PCS; 2019-04-03)
PROC: 5A1D70Z Performance of Urinary Filtration, Intermittent, Less than 6 Hours Per Day (ICD-10-PCS; 2019-04-03)
PROC: 30233N1 Transfusion of Nonautologous Red Blood Cells into Peripheral Vein, Percutaneous Approach (ICD-10-PCS; principal; 2019-04-04)
PROC: 0QB10ZZ Excision of Sacrum, Open Approach (ICD-10-PCS; principal; 2019-04-04)
PROC: B548ZZA Ultrasonography of Superior Vena Cava, Guidance (ICD-10-PCS; 2019-04-07)
PROC: 02HV33Z Insertion of Infusion Device into Superior Vena Cava, Percutaneous Approach (ICD-10-PCS; 2019-04-07)
PROC: 0JB90ZZ Excision of Buttock Subcutaneous Tissue and Fascia, Open Approach (ICD-10-PCS; 2019-04-09)
PROC: 0QB10ZZ Excision of Sacrum, Open Approach (ICD-10-PCS; 2019-04-09)
PROC: B518YZA Fluoroscopy of Superior Vena Cava using Other Contrast, Guidance (ICD-10-PCS; 2019-04-10)
PROC: 02HV33Z Insertion of Infusion Device into Superior Vena Cava, Percutaneous Approach (ICD-10-PCS; 2019-04-10)
PROC: 05PYX3Z Removal of Infusion Device from Upper Vein, External Approach (ICD-10-PCS; 2019-04-10)
PROC: 0JB90ZZ Excision of Buttock Subcutaneous Tissue and Fascia, Open Approach (ICD-10-PCS; 2019-04-11)
PROC: B546ZZA Ultrasonography of Right Subclavian Vein, Guidance (ICD-10-PCS; 2019-04-20)
PROC: 05H533Z Insertion of Infusion Device into Right Subclavian Vein, Percutaneous Approach (ICD-10-PCS; 2019-04-20)
PROC: 0QB10ZZ Excision of Sacrum, Open Approach (ICD-10-PCS; 2019-04-23)
PROC: 0JB90ZZ Excision of Buttock Subcutaneous Tissue and Fascia, Open Approach (ICD-10-PCS; 2019-04-23)
PROC: B518YZA Fluoroscopy of Superior Vena Cava using Other Contrast, Guidance (ICD-10-PCS; 2019-04-27)
PROC: 02HV33Z Insertion of Infusion Device into Superior Vena Cava, Percutaneous Approach (ICD-10-PCS; 2019-04-27)
PROC: 0QB10ZZ Excision of Sacrum, Open Approach (ICD-10-PCS; 2019-05-01)
PROC: 0JB90ZZ Excision of Buttock Subcutaneous Tissue and Fascia, Open Approach (ICD-10-PCS; 2019-05-01)
DX: T80.211A Bloodstream infection due to central venous catheter, initial encounter (principal); R65.21 Severe sepsis with septic shock; E43 Unspecified severe protein-calorie malnutrition; G93.49 Other encephalopathy; Z99.11 Dependence on respirator [ventilator] status; J18.9 Pneumonia, unspecified organism; R40.3 Persistent vegetative state; L89.154 Pressure ulcer of sacral region, stage 4; A41.9 Sepsis, unspecified organism; J96.10 Chronic respiratory failure, unspecified whether with hypoxia or hypercapnia; L89.894 Pressure ulcer of other site, stage 4; L89.323 Pressure ulcer of left buttock, stage 3; R53.2 Functional quadriplegia; I12.0 Hypertensive chronic kidney disease with stage 5 chronic kidney disease or end stage renal disease; N18.6 End stage renal disease; Z99.2 Dependence on renal dialysis; Y84.8 Other medical procedures as the cause of abnormal reaction of the patient, or of later complication, without mention of misadventure at the time of the procedure; E11.22 Type 2 diabetes mellitus with diabetic chronic kidney disease; B96.89 Other specified bacterial agents as the cause of diseases classified elsewhere; M24.562 Contracture, left knee; M24.561 Contracture, right knee; R13.10 Dysphagia, unspecified; Z74.01 Bed confinement status; D63.8 Anemia in other chronic diseases classified elsewhere; E27.40 Unspecified adrenocortical insufficiency; Z22.322 Carrier or suspected carrier of Methicillin resistant Staphylococcus aureus; E11.69 Type 2 diabetes mellitus with other specified complication; M86.8X7 Other osteomyelitis, ankle and foot; K21.9 Gastro-esophageal reflux disease without esophagitis; E88.09 Other disorders of plasma-protein metabolism, not elsewhere classified; L89.612 Pressure ulcer of right heel, stage 2; Z93.1 Gastrostomy status; M24.542 Contracture, left hand; M24.541 Contracture, right hand; S90.821A Blister (nonthermal), right foot, initial encounter; X58.XXXA Exposure to other specified factors, initial encounter; Y93.9 Activity, unspecified; Y92.129 Unspecified place in nursing home as the place of occurrence of the external cause; Z93.0 Tracheostomy status; Q78.9 Osteochondrodysplasia, unspecified; Z68.30 Body mass index [BMI] 30.0-30.9, adult; B96.1 Klebsiella pneumoniae [K. pneumoniae] as the cause of diseases classified elsewhere; I69.354 Hemiplegia and hemiparesis following cerebral infarction affecting left non-dominant side; Z79.4 Long term (current) use of insulin; Z87.01 Personal history of pneumonia (recurrent); K62.5 Hemorrhage of anus and rectum; S31.010A Laceration without foreign body of lower back and pelvis without penetration into retroperitoneum, initial encounter
CPT/HCPCS: 31720; 36415; 36569; 36600; 71045-TC; 73630-TC; 80048-TC; 80053-TC; 80061-TC; 80074; 80076-TC; 80150; 80170-TC; 80202-TC; 81000-TC; 82272-TC; 82533; 82803-TC; 82962-TC; 83540-TC; 83605-TC; 83735-TC; 84100-TC; 84484-TC; 85025-TC; 85610-TC; 85730-TC; 86706; 86850-TC; 86921-TC; 87040-TC; 87070-TC; 87081-TC; 87086-TC; 87186-TC; 87340; 90935-TC; 94002-TC; 94003-TC; 94760-TC; 94762-TC; 94799-TC; 99082-TC; A4216; A4217; A4623; A6248; A6253; A6403; A7526; C1750; C1751; C1769; G0378; J0278; J0690; J0692; J0885; J1580; J1644; J1720; J1815; J2405; J2543; J2704; J2765; J3010; J3370; J3490; J7040; J7050; J7060; P9016-BL; P9047; Q9966

== ENCOUNTER 2019-05-18 23:36 | Emergency (ER) | payer MEDICAID ==
[~2019-05-18] VITALS: Ht 175.3 cm; Wt 88.9 kg
[~2019-05-18 23:36] MED LIST changes: +ALLA266C2 TP; +AMIK250V13 IJ; +ARGI1POW13 PO; -COLI150V12 IJ; +Hydrogel Dressing TP; +IPRA0.2S9 NEB; -MAGN400O6 PO; -MERO500V21 IV; -NA P133E RC; +PROT946L GT; -RXGEN XX; -RXVAN XX; +SODI473S8 TOP; +SULF10VI2 IV; +Silver Sulfadiazine Cream TP; -TRAM50TA2 GT; -VANC500F2 IV; +VIT1TABL46 PO
--- NOTE | 2019-05-18 23:50 | NUR ---
BIB PRIVATE AMBULANCE. WAS TOLD PT NEEDED PICC LINE REINSERTION. ALSO, PT MISSED HIS SANTIAGO SULFATE DOSE @2100. PLACED ON MONITOR AND PULSE OX. NO ACUTE DISTESS NOTED.
--- NOTE | 2019-05-19 00:25 | NUR ---
CALLED MAC MCNEIL (DAUGHTER) [phone], VOICEMAIL LEFT.
--- NOTE | 2019-05-19 00:25 | NUR ---
RT AT BEDSIDE
--- NOTE | 2019-05-19 00:25 | NUR ---
Yovany martinez in ED - 05/19/19 at 0035 by ANUJ SPOKE TO MAC MCNEIL (DAUGHTER) [phone], VOICEPETROS [place].
--- NOTE | 2019-05-19 00:34 | NUR ---
CALLED MAC MCNEIL (DAUGHTER) [phone], VOICEMAIL LEFT.
--- NOTE | 2019-05-19 00:40 | NUR ---
PICC LINE NURSE AT BEDSIDE
--- NOTE | 2019-05-19 00:44 | NUR ---
SPOKE TO DAUGHTER MAC MCNEIL, VERBAL CONSENT TO INSERT PICC INSERTION. VERIFIED BY 2ND CARPET TECHNICIAN.
--- NOTE | 2019-05-19 02:12 | NUR ---
CALLED [facility] FOR TRANSPORT AND WAS TOLD THERE ARE NO RT'S ARE AVAILABLE AT THIS TIME AND TO CALL BACK AT 6:30 FOR TRANSPORT ETA.
--- NOTE | 2019-05-19 06:32 | NUR ---
CALLED [facility] [phone], SPOKE TO EUGENE, AVAILABLE RT FOR TRANSPORT WILL BE AFTER 11:30AM.
--- NOTE | 2019-05-19 06:40 | NUR ---
[facility] [phone] SPOKE TO [facility]/ BLS TRANSPORT ETA 9:45AM TRIP [phone]
--- NOTE | 2019-05-19 07:06 | NUR ---
REPORT GIVEN TO LON ZARCO FOR CONTINUITY OF CARE.
--- NOTE | 2019-05-19 07:19 | NUR ---
NEW ETA FOR BED 5 1105H.
--- NOTE | 2019-05-19 08:39 | NUR ---
REPORT GIVEN TO EMT FOR PT TRANSFER BACK TO FACILITY.
--- NOTE | 2019-05-19 08:40 | NUR ---
Patient discharged to home in stable condition. Written and verbal after care instructions given to EMT verbalizes understanding of instruction.
[2019-05-19 08:42] VITALS: BP 138/71
== END 2019-05-19 08:42 ==
LOC: ER 23:38
DX: Z45.2 Encounter for adjustment and management of vascular access device (principal); K21.9 Gastro-esophageal reflux disease without esophagitis; E11.22 Type 2 diabetes mellitus with diabetic chronic kidney disease; I12.0 Hypertensive chronic kidney disease with stage 5 chronic kidney disease or end stage renal disease; N18.6 End stage renal disease; Z86.73 Personal history of transient ischemic attack (TIA), and cerebral infarction without residual deficits; Z98.890 Other specified postprocedural states; Z79.899 Other long term (current) drug therapy; Z79.4 Long term (current) use of insulin
CPT/HCPCS: 36569; 99285; C1751

== ENCOUNTER 2019-05-22 19:13 | Emergency (ER) | payer MEDICAID ==
[~2019-05-22] VITALS: Ht 172.7 cm; Wt 84.4 kg
--- NOTE | 2019-05-22 19:30 | NUR ---
PT IS VENT DEP. PORTEX 8 TV 550 PEEP 0 AC 14 FIO2-30
--- NOTE | 2019-05-22 19:30 | NUR ---
PT AAOX3. bib pa [facility] for accidental picc line dislodgement. placed on awake overnight monitor and pulse ox. md at bedside. pt non verbal.
--- NOTE | 2019-05-22 19:35 | NUR ---
RT AT BEDSIDE
--- NOTE | 2019-05-22 20:24 | NUR ---
CALLED MAC MCNEIL (DAUGHTER OF PT) FOR VERBAL CONSENT. TELEPHONE CONSENT GIVEN.
--- NOTE | 2019-05-22 20:35 | NUR ---
Patient is resting comfortably in bed. Easily aroused. VSS
--- NOTE | 2019-05-22 21:49 | NUR ---
AT BEDSIDE FOR PICCLINE INSERTION
--- NOTE | 2019-05-22 22:11 | NUR ---
CALLED [facility] FOR RT BLS TRANSPORT. 3HRS ETA TRIP#[id number]
--- NOTE | 2019-05-22 22:31 | NUR ---
Patient is resting comfortably in bed. Easily aroused. VSS.
--- NOTE | 2019-05-22 23:05 | NUR ---
Patient is resting comfortably in bed. Easily aroused. VSS.
--- NOTE | 2019-05-23 00:45 | NUR ---
[facility] ETA [id number]
--- NOTE | 2019-05-23 00:53 | NUR ---
Patient is resting comfortably in bed with eyes closed. Easily aroused. VSS.
--- NOTE | 2019-05-23 02:25 | NUR ---
PT RESTING COMFORTABLLY. VSS
--- NOTE | 2019-05-23 03:41 | NUR ---
Patient is resting comfortably in bed. Easily aroused. vss
--- NOTE | 2019-05-23 04:17 | NUR ---
PT AWAKE BLANKETS PROVIDED.
--- NOTE | 2019-05-23 05:49 | NUR ---
Pt resting comfortably. vss
--- NOTE | 2019-05-23 07:22 | NUR ---
GAVE REPORT TO SOPHY TREVINO FROM [facility].
--- NOTE | 2019-05-23 07:27 | NUR ---
CALLED FACILITY TO LET THEM KNOW PT IS COMING AND HAD PICC LINE INSERTED.
--- NOTE | 2019-05-23 07:39 | NUR ---
PT being transfered to facility. Patient discharged to in stable condition. Written and verbal after care instructions given.
[2019-05-23 07:40] VITALS: BP 115/73
== END 2019-05-23 07:41 | disposition home or self-care (01) ==
LOC: ER 19:14
DX: T82.524A Displacement of infusion catheter, initial encounter (principal); E11.22 Type 2 diabetes mellitus with diabetic chronic kidney disease; I12.0 Hypertensive chronic kidney disease with stage 5 chronic kidney disease or end stage renal disease; N18.6 End stage renal disease; K21.9 Gastro-esophageal reflux disease without esophagitis; Z99.2 Dependence on renal dialysis; Z86.73 Personal history of transient ischemic attack (TIA), and cerebral infarction without residual deficits; Z93.0 Tracheostomy status; Z93.1 Gastrostomy status; Z98.890 Other specified postprocedural states; Z79.899 Other long term (current) drug therapy
CPT/HCPCS: 36569; 71045; 99285; C1751

== ENCOUNTER 2019-07-05 18:32 | Inpatient (IN) | payer MEDICAID ==
[~2019-07-05] VITALS: Ht 180.3 cm; Wt 77.6 kg
[~2019-07-05 18:32] MED LIST changes: +ARGI1POW13 GT; -ARGI1POW13 PO; +VIT1TABL46 GT; -VIT1TABL46 PO; +ZINC1CAP3 GT; -ZINC220C8 GT
--- NOTE | 2019-07-05 18:40 | NUR ---
LATOYA PHAM FROM [facility]IS [facility] AFTER COMPLETING HIS TREATMENT FOR ZK=510. PATIENT NON-VERBAL, EXTREMITIES CONTRACTED. ON MECHANICAL VENT TOLERATING CURRENT SETTINGS. PATIENT FEELS WARM TO TOUCH, ATTACHED TO THE MILLING MACHINIST.
[2019-07-05] MEDS ORDERED: CEFEPIME 1 GM in IV NS 0.9% 50 ML IV STA (18:41)
[2019-07-05] MEDS ORDERED: VANCOMYCIN 1 GM in IV D5W 250 ML IV STA (18:41)
[2019-07-05 19:00] LABS: BASOPHILS # (AUTO) 0.1 /CMM (0.0-0.2); BASOPHILS % (AUTO) 0.6 % (0.0-2.0); HEMATOCRIT 29 % (39-51); HEMOGLOBIN 8.9 g/dL (13.5-17.5); MEAN CORPUSCULAR HGB CONC 31 g/dl (31.0-36.0); MEAN CORPUSCULAR VOLUME 89 fL (80-96); MONOCYTES % (AUTO) 6.2 % (2.0-12.0); NEUTROPHILS % (AUTO) 85.2 % (43.0-81.0); PLATELET COUNT (AUTO) 323 /CMM (150-450); RED BLOOD CELL COUNT(AUTO) 3.27 MIL/uL (4.5-6.0); WHITE BLOOD COUNT (AUTO) 16.4 K/uL (4.3-11.0)
[2019-07-05] MEDS ORDERED: IV NS 0.9% 1,000 ML BAG IV ONE ×2 (19:00→19:30)
--- NOTE | 2019-07-05 19:00 | NUR ---
CLARIFIED WITH RE: FLUIDS, PATIENT IS A HEMODIALYSIS PATIENT. PER MD CANCEL 2,400ML, AND GAVE ORDER TO GIVE 1L OF NS ONLY. ORDER NOTED AND CARRIED OUT.
[2019-07-05 19:13] LABS: ALANINE AMINOTRANSFERASE 151 U/L (12-78); ALBUMIN 2.7 g/dL (3.4-5.0); ALKALINE PHOSPHATASE 112 U/L (46-116); ASPARTATE AMINOTRANSFERASE 92 U/L (15-37); BILIRUBIN,DIRECT 0.1 mg/dL (0.0-0.2); BILIRUBIN,TOTAL 0.4 mg/dL (0.2-1.0); CARBON DIOXIDE 34 mmol/L (21-32); CHLORIDE 97 mmol/L (98-107); CREATININE 3.6 mg/dL (0.6-1.3); GLUCOSE 97 mg/dL (74-106); SODIUM SERUM 142 mmol/L (136-145); TOTAL PROTEIN, SERUM 8.2 g/dL (6.4-8.2); UREA NITROGEN, BLOOD 27 mg/dL (7-18)
[2019-07-05 19:17] LABS: POTASSIUM 2.7 mmol/L (3.5-5.1)
[2019-07-05 19:23] LABS: APPEARANCE,URINE Cloudy (CLEAR); BILIRUBIN,URINE SMALL (NEGATIVE); BLOOD, URINE Small Ery/uL (NEGATIVE); COLOR,URINE Yellow (YELLOW); KETONES,URINE Negative (NEGATIVE); LEUKOCYTE ESTERASE ,URINE Moderate (NEGATIVE); NITRITE, URINE Negative (NEGATIVE); PH,URINE 8.5 (5.0-8.0); PROTEIN,URINE >=300 mg/dl (NEGATIVE); UGLUCOSE Negative (NEGATIVE); UROBILINOGEN,URINE 0.2 EU/dL (0.2)
--- NOTE | 2019-07-05 19:23 | NUR ---
URINE SAMPLE OBTAINED VIA STRAIGHT CATHETER AND SENT TO LAB.
--- NOTE | 2019-07-05 19:25 | NUR ---
ENDORSED TO JOSÉ ANTONIO CARBALLO FOR DENNIS
--- NOTE | 2019-07-05 19:25 | NUR ---
PT APPEARS TO BE RESTING COMFORTABLY WITH WITH NO S/S OF PAIN OR DISTRESS. PT HAS A TRACH AND IS VENTED WITH THE FOLLOWING SETTINGS: AC14, TV 550, FIO2 40%, PEEP 5.
[2019-07-05] MEDS ORDERED: SULF1TAB48 GT (19:26)
[2019-07-05] MEDS ORDERED: ACET-2605 GT (19:26)
[2019-07-05] MEDS ORDERED: ONDA4TAB5 GT (19:26)
[2019-07-05] MEDS ORDERED: NA P133E RC (19:26)
[2019-07-05] MEDS ORDERED: AMIN30LI2 GT (19:26)
[2019-07-05] MEDS ORDERED: TRAM50TA2 GT (19:26)
[2019-07-05] MEDS ORDERED: ACET-868 GT (19:26)
[2019-07-05] MEDS ORDERED: MAGN400O6 GT (19:26)
[2019-07-05 19:38] LABS: BACTERIA,URINE 2+ /HPF (None Seen); MUCUS,URINE Moderate /LPF (None Seen); WBC,URINE 21-50 /HPF (0-3)
--- NOTE | 2019-07-05 19:55 | NUR ---
Dr Levin paged per Dr Steel.
--- NOTE | 2019-07-05 20:35 | NUR ---
PT IS GOING TO TELE 116-2
--- NOTE | 2019-07-05 20:36 | NUR ---
REPORT GIVEN TO LON RICK
--- NOTE | 2019-07-05 21:36 | NUR ---
CALLED RT FOR TRANSPORT.
[2019-07-05 21:48] VITALS: BP 109/73
--- NOTE | 2019-07-05 21:48 | NUR ---
PSYCHIATRIC TECHNICIAN ASSISTANT ADMITTING NOTES RECEIVED PT FROM ER VIA [facility] IN STABLE CONDITION. PT NON VERBAL. RESPIRATIONS EVEN AND UNLABORED WITH NO S/S OF ACUTE DISTRESS OR SOB NOTED. NO S/S OF PAIN AT THIS TIME. PT NOTED WITH GTUBE, PATENT AND INTACT. PT ALSO NOTED WITH LHAND @20G PATENT AND INTACT AND SL. PT NOTED WITH LUCHEST JOSE CATH. PT NOTED WITH WOUNDS ON FEET, HEELS, SACRUM, LBUTTOCKS, AND SCROTUM. PT ON VENT TOLERATING WELL. PT ON TELE MONITORING WITH SR 90S. SAFETY MEASURES IN PLACE WITH BED IN LOWEST LOCKED POSITION WITH SIDE RAILS UP X2. CALL LIGHT WITHIN REACH. WILL CONTINUE TO MONITOR.
[2019-07-05] MEDS ORDERED: NEPRO 1,000 ML BOTTLE GT PRN (22:00)
[2019-07-05] MEDS ORDERED: POTASSIUM CHLORIDE 20 MEQ POWDER PACKET GT ONE (23:00)
[2019-07-06] VITALS: BP 102/60
[2019-07-06 04:00] VITALS: BP 101/64
[2019-07-06] MEDS ORDERED: DEXTROSE 50%-WATER 50 ML DISP.SYRIN IV PRN (07:00)
[2019-07-06] MEDS ORDERED: BISACODYL SUPP (10 MG) 10 MG/SUPP.RECT SUPP.RECT RC PRN (07:00)
--- NOTE | 2019-07-06 07:04 | NUR ---
DELI BAKERY CLERK NOTES PT IN BED RESTING COMFORTABLY. PT NON VERBAL. RESPIRATIONS EVEN AND UNLABORED WITH NO S/S OF ACUTE DISTRESS OR SOB NOTED THROUGHOUT SHIFT. NO S/S OF PAIN AT THIS TIME. PT NOTED WITH GTUBE, PATENT AND INTACT INFUSING NEPRO 50CC/HR. PT ALSO NOTED WITH LHAND @20G PATENT AND INTACT AND SL. PT NOTED WITH LUCHEST JOSE CATH. PT NOTED WITH WOUNDS ON FEET, HEELS, SACRUM, LBUTTOCKS, AND SCROTUM. PT ON VENT TOLERATING WELL. PT ON TELE MONITORING WITH SR 90S. PT KEPT CLEAN, DRY, AND COMFORTABLE. PT TURNED Q2 HOURS THROUGHOUT SHIFT. SAFETY MEASURES IN PLACE WITH BED IN LOWEST LOCKED POSITION WITH SIDE RAILS UP X2. CALL LIGHT WITHIN REACH. WILL ENDORSE TO ONCOMING NURSE FOR DENNIS.
[2019-07-06 07:06] LABS: BASOPHILS # (AUTO) 0.1 /CMM (0.0-0.2); BASOPHILS % (AUTO) 0.4 % (0.0-2.0); EOSINOPHILS % (AUTO) 2.7 % (0.0-6.0); HEMATOCRIT 24 % (39-51); HEMOGLOBIN 7.6 g/dL (13.5-17.5); LYMPHOCYTES # (AUTO) 1.6 /CMM (0.8-4.8); LYMPHOCYTES % (AUTO) 9.8 % (20.0-44.0); MEAN CORPUSCULAR HGB CONC 32 g/dl (31.0-36.0); MEAN CORPUSCULAR VOLUME 88 fL (80-96); MONOCYTES # (AUTO) 1.4 /CMM (0.1-1.30); MONOCYTES % (AUTO) 8.4 % (2.0-12.0); NEUTROPHILS # (AUTO) 13.1 /CMM (1.8-8.9); NEUTROPHILS % (AUTO) 78.7 % (43.0-81.0); PLATELET COUNT (AUTO) 311 /CMM (150-450); RED BLOOD CELL COUNT(AUTO) 2.72 MIL/uL (4.5-6.0); WHITE BLOOD COUNT (AUTO) 16.7 K/uL (4.3-11.0)
[2019-07-06 07:28] LABS: ALBUMIN 2.3 g/dL (3.4-5.0); BILIRUBIN,TOTAL 0.3 mg/dL (0.2-1.0); CALCIUM, SERUM 9.6 mg/dL (8.5-10.1); CREATININE 4.6 mg/dL (0.6-1.3); MAGNESIUM 2.2 mg/dL (1.8-2.4); PHOSPHORUS 2.1 mg/dL (2.5-4.9); POTASSIUM 3.4 mmol/L (3.5-5.1); TOTAL PROTEIN, SERUM 6.9 g/dL (6.4-8.2)
--- NOTE | 2019-07-06 07:36 | NUR ---
INITIAL PT IN BED RESTING COMFORTABLY. PT NON VERBAL. RESPIRATIONS EVEN AND UNLABORED WITH NO S/S OF ACUTE DISTRESS OR SOB NOTED THROUGHOUT SHIFT. NO S/S OF PAIN AT THIS TIME. PT NOTED WITH G-TUBE, PATENT AND INTACT INFUSING NEPRO 50CC/HR. PT ALSO NOTED WITH LEFT HAND @20G PATENT AND INTACT AND SL. PT NOTED WITH COMPA CHEST JOSE CATH. PT NOTED WITH WOUNDS ON FEET, HEELS, SACRUM, LEFT BUTTOCKS, AND SCROTUM. PT ON VENT TOLERATING WELL. PT ON TELE MONITORING WITH ST 101. PT KEPT CLEAN, DRY, AND COMFORTABLE. PT TURNED Q2 HOURS THROUGHOUT SHIFT. WILL CONTINUE TO MONITOR
[2019-07-06] MEDS ORDERED: FEE PK DOSING 1 MIN EA MC ONE (07:50)
[2019-07-06] MEDS ORDERED: VANCOMYCIN 500 MG in IV D5W 100 ML IV PRN (08:00)
[2019-07-06] MEDS: VIT B CMPLX 3/FA/VIT C/BIOTIN 1 TAB TABLET GT SCH (09:29)
[2019-07-06] MEDS: ZINC SULFATE 220 MG CAPSULE GT SCH (09:29)
[2019-07-06] MEDS: ASCORBIC ACID 500 MG TABLET GT SCH (09:29)
[2019-07-06] MEDS: PANTOPRAZOLE 40 MG/PACK PACK GT SCH (09:30)
[2019-07-06] MEDS: ATENOLOL 25 MG TABLET GT SCH (09:30)
[2019-07-06] MEDS: ACIDOPHILUS/BULGARICUS 1 EACH TAB.CHEW GT SCH ×2 (09:30→21:18)
--- NOTE | 2019-07-06 10:40 | NUR ---
WOUND CARE CONSULT: PT FOLLOWED BY PLASTIC SURGERY AND PODIATRY TEAMS FOR WOUNDS. DEFER TO SURGICAL TEAMS FOR WOUND TREATMENT PLAN. WILL SEE PRN. DISCUSSED SKIN PROTECTION WITH NURSING STAFF. CURRENT LAMONTE SCORE IS 10. PT ON ABELARDO ISOFLEX LOW AIRLOSS BED.
--- NOTE | 2019-07-06 11:21 | NUR ---
CONSENT OBTAINED TELEPHONE CONSENT FROM DAUGHTER JIMBO FOR SERIAL DEBRIDEMENT OF SCROTUM AND LEFT BUTTOCKS TURNED OFF FEEDINGS ZERO RESIDUAL
[2019-07-06] MEDS ORDERED: LIDOCAINE 1%-EPI 1:100,000 20 ML VIAL TP STA (12:07)
[2019-07-06] MEDS: BLOOD SUGAR DIAGNOSTIC 1 EACH STRIP IN SCH ×2 (12:22→18:11)
[2019-07-06] MEDS: INSULIN REGULAR, HUMAN 100 UNIT/ML 3 ML VIAL SQ PRN ×2 (12:22→18:11)
[2019-07-06] MEDS ORDERED: SILVER NITRATE APPLICATOR 1 EA BOX TP ONE (12:30)
[2019-07-06] MEDS ORDERED: NEUTRA PHOS 1 POWD.PACKET GT ONE (14:00)
--- NOTE | 2019-07-06 14:01 | NUR ---
CULTURE WOUND CULTURE SENT TO LAB AFTER DEBRIDEMENT
[2019-07-06] MEDS: ALBUTEROL FS 2.5 MG/0.5 ML VIAL.NEB NEB SCH ×2 (14:20→20:30)
[2019-07-06] MEDS: IPRATROPIUM NEB FS 0.5 MG/2.5 ML AMPUL.NEB NEB SCH ×2 (14:20→20:30)
[2019-07-06] MEDS ORDERED: EPOETIN ALFA (10,000 UNIT) 10,000 UNIT/ML VIAL IV ONE (15:00)
--- NOTE | 2019-07-06 15:24 | NUR ---
MD MD KEBEDE TEXTED BACK WANTS MD PEACOCK CONTACTED. TEXTED MADONNA WAITING FOR RESPONSE.
[2019-07-06] MEDS ORDERED: CEFEPIME 1 GM VIAL IM SCH (17:00)
--- NOTE | 2019-07-06 17:25 | NUR ---
Patient is trach/vent dependent, resides at Center @ [facility] [phone]. He is totally dependent with adl's and bedfast. Receives hemodialysis every MWF 8:45am @ [facility] [phone] transportation provided by [employer]. Current dc plan is to return to [facility] with bedhold x7days. Addendum: 07/06/19 at 1726 by WALE HUANG RN Amended: Links added.
[2019-07-06] MEDS: DAKINS QUARTER STRENGTH (0.125%) 480 ML BOTTLE TOP SCH (18:10)
[2019-07-06] MEDS: HYDROGEL DRESSING 90 GM TUBE TP SCH (18:11)
[2019-07-06] MEDS: ACETAMINOPHEN 650 MG/20.3 ML UDC GT PRN (18:17)
--- NOTE | 2019-07-06 18:29 | NUR ---
CLOSING PT REMAINS ON VENTILATOR WITH G-TUBE FEEDINGS STOPPED AT 12 NOON TO RESTART AT MID-NIGHT PT GIVEN ALL MEDICATIONS. WILL GIVE REPORT TO PM SHIFT RN FOR CONTINUITY OF CARE.ALL MEDICATIONS GIVEN
[2019-07-06 20:00] VITALS: BP 104/67
--- NOTE | 2019-07-06 21:03 | NUR ---
PT RECEIVE STABLE ON MV, SETTINGS ARE AC 14 550 +5 @ 40% FIO2, TRACH PATENT AND SECURED, AMBU BAG IS AT BEDSIDE, VENT IS PLUG IN AT RED OUTLET, ALARMS ARE ON AND AUDIBLE, WILL CONTINUE O MONITOR Addendum: 07/06/19 at 2105 by RICHY BARTLETT RT Amended: Links added.
[2019-07-06] MEDS: CEFEPIME 1 GM in IV D5W 50 ML IV SCH (21:18)
[2019-07-07] MEDS: INSULIN REGULAR, HUMAN 100 UNIT/ML 3 ML VIAL SQ PRN ×2 (00:24→06:08)
--- NOTE | 2019-07-07 00:25 | NUR ---
BLOOD SUGAR FINGERSTICK=97, NO INSULIN GIVEN PER SLIDING SCALE. G-TUBE FEEDING NEPRO STARTED WITH NEW TUBING SET.
[2019-07-07 01:25] VITALS: BP 109/61
[2019-07-07] MEDS: ALBUTEROL FS 2.5 MG/0.5 ML VIAL.NEB NEB SCH ×4 (02:07→18:50)
[2019-07-07] MEDS: IPRATROPIUM NEB FS 0.5 MG/2.5 ML AMPUL.NEB NEB SCH ×4 (02:07→18:50)
[2019-07-07 04:51] VITALS: BP 102/61
[2019-07-07] MEDS: BLOOD SUGAR DIAGNOSTIC 1 EACH STRIP IN SCH ×4 (06:00→18:00)
--- NOTE | 2019-07-07 06:14 | NUR ---
RN CLOSING NOTES: PATIENT IN BED. OPEN EYES WHEN CALLED HIS NAME. NO ACUTE EVENTS OVERNIGHT. BLOOD SUGAR FINGERSTICK THIS MORNING IS 104, NO INSULIN COVERAGE GIVEN. VITALS STABLE. GOOD O2 SAT. TOLERATING G-TUBE FEEDING RUNNING AT 50ML/HR, NO RESIDUAL. HOB ELEVATED AT ALL TIMES. G- TUBE SITE IS CLEAN AND DRY,AND NO SKIN REDNESS NOTED ON THE G-TUBE SITE. BED ALARM ON. BED IN LOWEST AND LOCKED POSITION. ISOLATION PRECAUTION OBSERVED.
[2019-07-07 06:53] LABS: BASOPHILS # (AUTO) 0.1 /CMM (0.0-0.2); BASOPHILS % (AUTO) 0.4 % (0.0-2.0); EOSINOPHILS % (AUTO) 1.2 % (0.0-6.0); HEMATOCRIT 24 % (39-51); HEMOGLOBIN 7.5 g/dL (13.5-17.5); LYMPHOCYTES # (AUTO) 1.5 /CMM (0.8-4.8); MEAN CORPUSCULAR HGB CONC 32 g/dl (31.0-36.0); MEAN CORPUSCULAR VOLUME 90 fL (80-96); MONOCYTES # (AUTO) 1.5 /CMM (0.1-1.30); NEUTROPHILS % (AUTO) 82.4 % (43.0-81.0); PLATELET COUNT (AUTO) 283 /CMM (150-450); RED BLOOD CELL COUNT(AUTO) 2.65 MIL/uL (4.5-6.0); WHITE BLOOD COUNT (AUTO) 19.4 K/uL (4.3-11.0)
[2019-07-07 06:57] LABS: ALBUMIN 2.3 g/dL (3.4-5.0); BILIRUBIN,TOTAL 0.4 mg/dL (0.2-1.0); CALCIUM, SERUM 9.9 mg/dL (8.5-10.1); CREATININE 5.2 mg/dL (0.6-1.3); MAGNESIUM 2.4 mg/dL (1.8-2.4); PHOSPHORUS 2.2 mg/dL (2.5-4.9); POTASSIUM 3.3 mmol/L (3.5-5.1)
--- NOTE | 2019-07-07 07:10 | NUR ---
WAREHOUSE SUPERVISOR 3RD SHIFT NOTES RECEIVED PATIENT IN BED A/OX1 NONVERBAL ABLE TO OPEN EYES WHEN NAME CALLED. ON NEPHRO 50ML/H. NO RESIDUAL NOTED FROM GTUBE. ON ISOLATION MRSA WOUND. CALL LIGHT WITHIN REACH. BED AT THE LOWEST POSITION LOCKED. WILL CONTINUE TO MONITOR PATIENT.
--- NOTE | 2019-07-07 07:27 | NUR ---
PATIENT HAD BM, YELLOWISH, MODERATE AMOUNT, SOFT, PATIENT CLEANED AND CHANGED DIAPER,BED BATH GIVEN AND KEPT DRY. DRESSINGS ON THE SACRAL AND LEFT BUTTOCK AND SCROTAL AREAS SMEARED WITH FEW STOOL,CHANGED. HOB ELEVATED AND FEEDING RESUMED. PATIENT TOLERATED. DRESSINGS ON THE TRACH SITE AND G-TUBE SITE CHANGED.
[2019-07-07 08:00] VITALS: BP 94/57
[2019-07-07] MEDS: ATENOLOL 25 MG TABLET GT SCH (09:00)
[2019-07-07] MEDS: DAKINS QUARTER STRENGTH (0.125%) 480 ML BOTTLE TOP SCH (09:46)
[2019-07-07] MEDS: VIT B CMPLX 3/FA/VIT C/BIOTIN 1 TAB TABLET GT SCH (09:47)
[2019-07-07] MEDS: ASCORBIC ACID 500 MG TABLET GT SCH (09:47)
[2019-07-07] MEDS: PANTOPRAZOLE 40 MG/PACK PACK GT SCH (09:47)
[2019-07-07] MEDS: ZINC SULFATE 220 MG CAPSULE GT SCH (09:47)
[2019-07-07] MEDS: ACIDOPHILUS/BULGARICUS 1 EACH TAB.CHEW GT SCH ×2 (09:47→20:33)
--- NOTE | 2019-07-07 09:48 | NUR ---
ROLAND FORREST NOTES ATENOLOL NOT ADMINISTRATED DUE TO LOW BP 94/57 HR 86. Addendum: 07/07/19 at 1004 by HEBER NAYLOR RN medication was crushed, wasted in bin.
[2019-07-07] MEDS: HYDROGEL DRESSING 90 GM TUBE TP SCH ×2 (09:50)
[2019-07-07] MEDS: SILVER SULFADIAZINE 50 GM JAR TP SCH (09:51)
--- NOTE | 2019-07-07 10:27 | NUR ---
SPREADER BOX OPERATOR NOTES RECEIVED A CALL FROM THE PHARMACY REGARDING LOW POTASSIUM OF 3.3. THEY STATED THEY CANT REPLACE THE K BECAUSE PATIENT IS A DIALYSIS PATIENT. INFORM DR RUTLEDGE.
[2019-07-07 12:00] VITALS: BP 136/73
--- NOTE | 2019-07-07 12:23 | NUR ---
WINDER HELPER NOTES BLOOD GLUCOSE LEVEL 109MG/DL NO INSULIN GIVEN.
--- NOTE | 2019-07-07 14:37 | NUR ---
KNIFE CHANGER NOTES RECEIVED A CALL FROM LAB OF POSITIVE MRSA.
--- NOTE | 2019-07-07 15:00 | NUR ---
PORT DRIER NOTES GTUBE FEEDING STOPPED AT 1500 PER MD ORDER.
[2019-07-07] MEDS ORDERED: VANCOMYCIN 1 GM in IV D5W 250ml IV ONE (18:00)
--- NOTE | 2019-07-07 18:02 | NUR ---
ACCOUNT MANAGEMENT ASSISTANT NOTES BLOOD GLUCOSE LEVEL 106 MG/DL NO INSULIN GIVEN PER SLIDING SCALE.
--- NOTE | 2019-07-07 19:15 | NUR ---
RN OPENING NOTES Received patient A/O x1, non-verbal, opens eyes to stimuli. On Vent with setting noted, no respiratory distress noted at this time. No s/sx of discomfort noted at this time. On contact isolation for MRSA wound, observe by all HCPs. With GTF, PEG in place, to resume feeding at midnight as scheduled. Kept on bed clean, dry and comfortable. On fall and aspiration precautions. Will continue to monitor accordingly.
--- NOTE | 2019-07-07 19:16 | NUR ---
RN NOTES On tele monitor with NSR noted.
--- NOTE | 2019-07-07 19:34 | NUR ---
SENIOR TRAINING SPECIALIST NOTES PATIENT IN BED A/OX1, ABLE TO OPEN EYES WHEN NAME CALLED. ALL NEEDS ATTENDED, MEDICATIONS ADMINISTRATED. PATIENT TEMPERATURE WAS ELEVATED TO 100.1 , ICE PACK PROVIDED FOR PATIENT AND RECHECKED THE TEMPERATURE AND IT WENT DOWN TO 98.1F. NO SOB OR DISCOMFORT NOTED AT THIS TIME. CALL LIGHT WITHIN REACH, BED AT THE LOWEST POSITION LOCKED. ENDORSED TO MOBILE PLANT OPERATORS NURSE FOR DENNIS.
[2019-07-07 20:00] VITALS: BP 110/72
[2019-07-07] MEDS: CEFEPIME 1 GM in IV D5W 50 ML IV SCH (20:33)
[2019-07-08] VITALS (10 sets, daily range): BP systolic 105–121; BP diastolic 59–75
[2019-07-08] MEDS: BLOOD SUGAR DIAGNOSTIC 1 EACH STRIP IN SCH ×5 (00:08→23:51)
[2019-07-08] MEDS: INSULIN REGULAR, HUMAN 100 UNIT/ML 3 ML VIAL SQ PRN (00:09)
[2019-07-08] MEDS: ALBUTEROL FS 2.5 MG/0.5 ML VIAL.NEB NEB SCH ×4 (00:37→19:25)
[2019-07-08] MEDS: IPRATROPIUM NEB FS 0.5 MG/2.5 ML AMPUL.NEB NEB SCH ×4 (00:37→19:25)
--- NOTE | 2019-07-08 03:52 | NUR ---
PATIENT RECEIVED ON TRACH TO VENT WITH SETTINGS OF AC 14, 550 VT, 40%, +5. SUCTIONED WITH LAVAGE FOR MINIMAL, THIN, WHITE SECRETIONS. GIVEN IN-LINE TREATMENTS WITH NO ADVERSE REACTIONS. AMBU BAG AT BEDSIDE. VENT AND PULSE OXIMETER ALARMS AUDIBLE AND VISIBLE. VENT PLUGGED INTO RED OUTLET. INNER CANNULA CHANGED. Addendum: 07/08/19 at 0354 by STACI DOYLE RT Amended: Links added.
[2019-07-08] MEDS ORDERED: VANCOMYCIN 500 MG in IV D5W 100 ML IV PRN (06:00)
--- NOTE | 2019-07-08 06:18 | NUR ---
RN CLOSING NOTES Patient on bed on vent, setting noted. No respiratory distress noted. All due meds given as ordered. No new unusualities noted. Kept on bed clean, dry and comfortable. Endorsed to the next shift.
[2019-07-08] MEDS: PANTOPRAZOLE 40 MG/PACK PACK GT SCH (08:39)
[2019-07-08] MEDS: VIT B CMPLX 3/FA/VIT C/BIOTIN 1 TAB TABLET GT SCH (08:39)
[2019-07-08] MEDS: ACIDOPHILUS/BULGARICUS 1 EACH TAB.CHEW GT SCH ×2 (08:39→21:18)
[2019-07-08] MEDS: ASCORBIC ACID 500 MG TABLET GT SCH (08:39)
[2019-07-08] MEDS: ZINC SULFATE 220 MG CAPSULE GT SCH (08:39)
[2019-07-08] MEDS: ATENOLOL 25 MG TABLET GT SCH (08:40)
[2019-07-08] MEDS: DAKINS QUARTER STRENGTH (0.125%) 480 ML BOTTLE TOP SCH (09:00)
[2019-07-08] MEDS: HYDROGEL DRESSING 90 GM TUBE TP SCH ×2 (09:00)
[2019-07-08] MEDS: MUPIROCIN OINT 2% 22 GM TUBE SCH ×2 (09:00→21:18)
[2019-07-08] MEDS: SILVER SULFADIAZINE 50 GM JAR TP SCH (09:00)
[2019-07-08 12:55] LABS: ALBUMIN 2.1 g/dL (3.4-5.0); BILIRUBIN,TOTAL 0.3 mg/dL (0.2-1.0); MAGNESIUM 2.1 mg/dL (1.8-2.4); PHOSPHORUS 1.3 mg/dL (2.5-4.9); POTASSIUM 3.3 mmol/L (3.5-5.1); TOTAL PROTEIN, SERUM 6.7 g/dL (6.4-8.2)
[2019-07-08 12:59] LABS: BASOPHILS # (AUTO) 0.2 /CMM (0.0-0.2); BASOPHILS % (AUTO) 1.2 % (0.0-2.0); EOSINOPHILS % (AUTO) 1.7 % (0.0-6.0); HEMATOCRIT 22 % (39-51); LYMPHOCYTES # (AUTO) 1.4 /CMM (0.8-4.8); MEAN CORPUSCULAR HGB CONC 31 g/dl (31.0-36.0); MEAN CORPUSCULAR VOLUME 89 fL (80-96); MONOCYTES # (AUTO) 1.8 /CMM (0.1-1.30); MONOCYTES % (AUTO) 8.9 % (2.0-12.0); NEUTROPHILS # (AUTO) 16.3 /CMM (1.8-8.9); NEUTROPHILS % (AUTO) 81.2 % (43.0-81.0); PLATELET COUNT (AUTO) 282 /CMM (150-450); RED BLOOD CELL COUNT(AUTO) 2.51 MIL/uL (4.5-6.0); WHITE BLOOD COUNT (AUTO) 20.1 K/uL (4.3-11.0)
[2019-07-08 13:51] LABS: EOSINOPHILS % (MANUAL) 1 % (0-4); LYMPHOCYTES % (MANUAL) 10 % (16-48); MONOCYTES % (MANUAL) 9 % (0-11.0); NEUTROPHILS % (MANUAL) 80 (42-76)
[2019-07-08 17:43] LABS: VANCOMYCIN,RANDOM 13 ug/ml (18-26); VANCOMYCIN,TROUGH 13 ug/ml (12-20)
[2019-07-08] MEDS: MEROPENEM 500 MG in IV NS 0.9% 50 ML IV SCH (17:43)
[2019-07-08] MEDS ORDERED: VANCOMYCIN 1 GM in IV D5W 250ml IV ONE (18:00)
[2019-07-08] MEDS ORDERED: NEPRO 1,000 ML BOTTLE GT PRN (18:27)
--- NOTE | 2019-07-08 19:16 | NUR ---
FOLDER OPERATOR CLOSING Patient opened eyes and tracked this shift, able to nod yes or no to questions. Attached to [facility] vent, tolerating settings, no SOB or distress throughout shift. Tele monitor attached, sinus rhythm, HR WNL. Dialyzed today. Wound care completed. R FA IV & HD site C/D/I. Dr. Grace notified of Hgb level. Endorsed to NOC RN
--- NOTE | 2019-07-08 19:40 | NUR ---
CENTER MAKER HAND NOTE: PATIENT RESTING IN BED, NO ACUTE DISTRESS NOTED. BREATHING EVEN AND UNLABORED, NO SOB NOTE. VENT SETTING IN PLACE. IV TO RFA IN PLACE. LEFT CHEST PERMACATH IN PLACE, NO BLEEDING NOTED. TELE READING SR 74. ISOLATION PRECAUTIONS OBSERVED. BED LOCKED AND IN LOWEST POSITION, CALL LIGHT IN REACH WILL CONTINUE TO MONITOR.
--- NOTE | 2019-07-08 23:52 | NUR ---
CONSUMER RELATIONS COMPLAINT CLERK NOTE: PATIENT BLOOD SUGAR LEVEL 84MG/DL, NO INSULIN NEEDED. TO START PATIENT ON G-TUBE FEEDING OF NEPHRO AT 50ML/HR. HOB ELEVATED. WILL CONTINUE TO MONITOR.
[2019-07-09 00:20] VITALS: BP 108/64
[2019-07-09] MEDS: IPRATROPIUM NEB FS 0.5 MG/2.5 ML AMPUL.NEB NEB SCH ×4 (01:26→20:31)
[2019-07-09] MEDS: ALBUTEROL FS 2.5 MG/0.5 ML VIAL.NEB NEB SCH ×4 (01:27→20:31)
[2019-07-09 04:10] VITALS: BP 107/65
[2019-07-09] MEDS: MEROPENEM 500 MG in IV NS 0.9% 50 ML IV SCH ×2 (04:37→17:12)
[2019-07-09] MEDS: BLOOD SUGAR DIAGNOSTIC 1 EACH STRIP IN SCH ×4 (06:15→23:30)
--- NOTE | 2019-07-09 06:20 | NUR ---
BODS DEVELOPER NOTE: PATIENT RESTING IN BED, NO ACUTE DISTRESS NOTED. BREATHING EVEN AND UNLABORED, NO SOB NOTE. VENT SETTING IN PLACE. IV TO RFA IN PLACE. LEFT CHEST PERMACATH IN PLACE, NO BLEEDING NOTED. TELE READING SR 70. ISOLATION PRECAUTIONS OBSERVED. BED LOCKED AND IN LOWEST POSITION, CALL LIGHT IN REACH. WILL ENDORSE TO DAY NURSE TO CONTINUE WITH PLAN OF CARE.
[2019-07-09] MEDS ORDERED: LIDOCAINE 1%-EPI 1:100,000 20 ML VIAL TP ONE (07:00)
--- NOTE | 2019-07-09 07:30 | NUR ---
BURNING SUPERVISOR OPENING NOTES RECEIVED PATIENT RESTING IN BED, NO ACUTE DISTRESS NOTED. PATIENT IS NON VERBAL, OPENS EYES. PATIENT IS ON VENTILATOR. TOLERATING SETTINGS WELL, NO SOB NOTED. BREATHING IS EVEN AND UNLABORED. ON TELE MONITOR, SINUS RHYTHM AT 83BPM. PATIENT HAS AN IV ON RFA #22 GAUGE, PATENT, INTACT, AND FLUSHED WELL. ISOLATION PRECAUTION OBSERVED. SAFETY MAINTAINED. CALL LIGHT WITHIN REACH. WILL CONTINUE TO MONITOR.
[2019-07-09 08:00] VITALS: BP 110/59
[2019-07-09] MEDS: ACIDOPHILUS/BULGARICUS 1 EACH TAB.CHEW GT SCH ×2 (09:42→20:48)
[2019-07-09] MEDS: PANTOPRAZOLE 40 MG/PACK PACK GT SCH (09:42)
[2019-07-09] MEDS: ZINC SULFATE 220 MG CAPSULE GT SCH (09:42)
[2019-07-09] MEDS: ASCORBIC ACID 500 MG TABLET GT SCH (09:42)
[2019-07-09] MEDS: VIT B CMPLX 3/FA/VIT C/BIOTIN 1 TAB TABLET GT SCH (09:42)
[2019-07-09] MEDS: ATENOLOL 25 MG TABLET GT SCH (09:43)
[2019-07-09] MEDS: MUPIROCIN OINT 2% 22 GM TUBE SCH ×2 (09:50→20:53)
[2019-07-09] MEDS: HYDROGEL DRESSING 90 GM TUBE TP SCH ×2 (09:50→09:51)
[2019-07-09] MEDS: DAKINS QUARTER STRENGTH (0.125%) 480 ML BOTTLE TOP SCH (09:51)
[2019-07-09] MEDS: SILVER SULFADIAZINE 50 GM JAR TP SCH (09:51)
[2019-07-09 12:00] VITALS: BP 108/64
[2019-07-09 16:00] VITALS: BP 116/64
[2019-07-09] MEDS: PROSOURCE / PROSTAT (PYXIS) 30 ML UDC GT SCH (17:00)
--- NOTE | 2019-07-09 18:17 | NUR ---
SALES ROUTE DRIVER HELPER NOTE CALLED KITCHEN 3X TIMES REGARDING PROSTAT AVAILABILITY ON THE FLOOR, GOT NO ANSWER. UNABLE TO ADMINISTER PROSTAT 30ML BECAUSE IT IS NOT AVAILABLE
--- NOTE | 2019-07-09 19:15 | NUR ---
RN OPENING NOTE RECEIVED PATIENT IN BED WITH HOB ELEVATED. OBTUNDED. ON VENT. ON GTF. IN NO APPARENT DISTRESS NOTED AT THIS TIME. WILL CONTINUE TO MONITOR.
--- NOTE | 2019-07-09 19:18 | NUR ---
MIXING SUPERVISOR CLOSING NOTES NO ACUTE CHANGE TO PATIENT CONDITION DURING MY SHIFT. PATIENT IN STABLE CONDITION. ALL NEEDS MET. PATIENT IS ON G TUBE FEEDING RUNNING AT 50MLS/HR X 24HRS. NO RESIDUAL NOTED DURING MY SHIFT. TOLERATING DIET WELL. PATIENT KEPT CLEAN AND DRY. SAFETY WAS MAINTAINED. CALL LIGHT WITHIN REACH. ENDORSED TO CLOTH CLASSER NURSE TO CONTINUE CARE.
[2019-07-09 20:00] VITALS: BP 113/66
[2019-07-10] VITALS: BP 123/78
[2019-07-10] MEDS: NEPRO 1,000 ML BOTTLE GT PRN ×2 (00:44→21:02)
[2019-07-10] MEDS: IPRATROPIUM NEB FS 0.5 MG/2.5 ML AMPUL.NEB NEB SCH ×4 (00:58→20:09)
[2019-07-10] MEDS: ALBUTEROL FS 2.5 MG/0.5 ML VIAL.NEB NEB SCH ×4 (00:58→20:09)
[2019-07-10 04:00] VITALS: BP 113/74
[2019-07-10] MEDS: MEROPENEM 500 MG in IV NS 0.9% 50 ML IV SCH ×2 (04:17→17:38)
[2019-07-10] MEDS: BLOOD SUGAR DIAGNOSTIC 1 EACH STRIP IN SCH ×3 (06:29→17:38)
--- NOTE | 2019-07-10 07:06 | NUR ---
RN CLOSING NOTE PATIENT IS IN BED RESTING WITH HOB ELEVATED. OBTUNDED, ON VENT, ON GTF. GTF ON RUNNING AND KEPT PATENT. ALL DUE MEDS GIVEN AND TOLERATED WELL. IN NO APPARENT DISTRESS NOTED AT THIS TIME. PATIENT IS KEPT CLEAN, DRY, AND COMFORTABLE. WILL ENDORSE TO AM SHIFT RN.
--- NOTE | 2019-07-10 07:30 | NUR ---
HOIST CYLINDER LOADER OPENING NOTE RECEIVED PATIENT FROM ASSISTANT ASSOCIATE PROFESSOR NURSE. PATIENT IS RESTING COMFORTABLY IN BED, NO ACUTE DISTRESS NOTED. PATIENT IS NON VERBAL. OPENS EYES TO STIMULI. ON MECHANICAL VENTILATOR, TOLERATING SETTINGS WELL. NO SOB NOTED, BREATHING IS EVEN AND UNLABORED. SINUS RHYTHM ON THE MONITOR AT 84BPM. IV ON RFA #22, INTACT, PATENT, AND FLUSHED WELL. NO SIGNS AND SYMPTOMS OF INFECTION NOTED. ISOLATION PRECAUTION IS OBSERVED. G TUBE FEEDING CONTINUOS @50 MLS/HR. TOLERATING WELL NO RESIDUAL NOTED. SAFETY MAINTAINED. CALL LIGHT WITHIN REACH. WILL CONTINUE TO MONITOR.
[2019-07-10 08:00] VITALS: BP 120/79
[2019-07-10] MEDS: ZINC SULFATE 220 MG CAPSULE GT SCH (08:13)
[2019-07-10] MEDS: ACIDOPHILUS/BULGARICUS 1 EACH TAB.CHEW GT SCH ×2 (08:14→20:41)
[2019-07-10] MEDS: ATENOLOL 25 MG TABLET GT SCH (08:14)
[2019-07-10] MEDS: PANTOPRAZOLE 40 MG/PACK PACK GT SCH (08:14)
[2019-07-10] MEDS: VIT B CMPLX 3/FA/VIT C/BIOTIN 1 TAB TABLET GT SCH (08:14)
[2019-07-10] MEDS: ASCORBIC ACID 500 MG TABLET GT SCH (08:14)
[2019-07-10] MEDS: MUPIROCIN OINT 2% 22 GM TUBE SCH ×2 (08:24→20:50)
[2019-07-10] MEDS: DAKINS QUARTER STRENGTH (0.125%) 480 ML BOTTLE TOP SCH (08:24)
[2019-07-10] MEDS: HYDROGEL DRESSING 90 GM TUBE TP SCH ×2 (08:24)
[2019-07-10] MEDS: SILVER SULFADIAZINE 50 GM JAR TP SCH (08:25)
[2019-07-10] MEDS: PROSOURCE / PROSTAT (PYXIS) 30 ML UDC GT SCH ×3 (10:43→17:38)
[2019-07-10 12:00] VITALS: BP 108/70
--- NOTE | 2019-07-10 15:00 | NUR ---
ROUNDED WITH ABDIRASHID. DEBRIDEMENT DONE OF THE WOUND ON THE BUTTOCK. LIDOCAINE WAS ADMINISTERED BY ABDIRASHID. ASSISTED WITH THE PROCEDURE.
[2019-07-10 16:00] VITALS: BP 97/62
--- NOTE | 2019-07-10 17:39 | NUR ---
RT REPORT, Pt. rec. IN RIMMA nonverbal 59 year old male trach portex # 8 on ventilator with noted settings. Vent alarms are set and audible with Ambu bag by bedside. MITIGATION SUPERVISOR cuff pressure done, Vent is plugged into red outlet. bilaterally rales B/S noted and sux'd for minimal amount of white secretions, q6 inline tx's given no adverse reaction noted. Equal chest rise noted. pt. stable and continue to monitor. Report will pass to PM shift. Addendum: 07/10/19 at 1742 by SHIRLEY REID RT Amended: Links added.
--- NOTE | 2019-07-10 19:30 | NUR ---
EXTRACTION SUPERVISOR CLOSING NOTES PT IN STABLE CONDITION. NO ACUTE CHANGES TO PT CONDITION DURING MY SHIFT. OBTUNDED, ON VENT TOLERATING SETTINGS WELL, NO DISTRESS NOTED, NO SOB. CONTINUOUS G TUBE FEEDING RUNNING ORDERED, TOLERATING WELL, NO RESIDUAL. IN NO APPARENT DISTRESS, KEPT CLEAN AND DRY. SAFETY MAINTAINED. CALL LIGHT WITHIN REACH. ENDORSED TO HYDROELECTRIC PLANT ELECTRICIAN NURSE TO CONTINUE CARE.
[2019-07-10 20:00] VITALS: BP 87/57
--- NOTE | 2019-07-10 20:00 | NUR ---
TELE/RN OPENING NOTES PATIENT HOB ELEVATED, ASLEEP BUT AROUSES, SKIN WARM TO TOUCH, ON MECHANICAL AMBAR WITH PRESCRIBED SETTING, OBTUNDED WITH MULTIPLE SKIN ISSUES, KEPT COMFORTABLE, SUCTION NEEDED, GTUBE AT 50 CC/HR. AT SINU SRTHYM, IV ON RFA GAUGE 22 PATENT AND WITH LEFT CHEST WALL PORTHA CATH.
--- NOTE | 2019-07-10 20:00 | NUR ---
TELE/RN OPENING NOTES TELE RYTHM AT WITH MECHANICAL VENT ON PRESCRIBED SETTING, ON GTUBE FEEDING, OBTUNDED, NON VERBAL, INCONTINENT, EXTENSIVE ASSISTANCE WITH MULTIPLE WOUNFD WILL MONITOR, BED LOCKED,
--- NOTE | 2019-07-10 20:25 | NUR ---
RT NOTE Pt rec[facility] on AC mode. No resp distress or sob noted. Pt sx'd for thick mod amt of pale yellow secretions. Trach is patent and secured. Alarms are set and audible. Vent plugged into red outlet. Ambu bag bedside. Will continue to monitor. Addendum: 07/10/19 at 2025 by EFRAIN PATTERSON RT Amended: Links added.
[2019-07-11] VITALS: BP 99/64
[2019-07-11] MEDS: BLOOD SUGAR DIAGNOSTIC 1 EACH STRIP IN SCH ×4 (00:12→18:06)
[2019-07-11] MEDS: ALBUTEROL FS 2.5 MG/0.5 ML VIAL.NEB NEB SCH ×4 (02:03→20:22)
[2019-07-11] MEDS: IPRATROPIUM NEB FS 0.5 MG/2.5 ML AMPUL.NEB NEB SCH ×4 (02:03→20:22)
[2019-07-11] MEDS: MEROPENEM 500 MG in IV NS 0.9% 50 ML IV SCH ×2 (04:28→16:24)
[2019-07-11 06:00] VITALS: BP 98/62
[2019-07-11 07:11] LABS: BASOPHILS # (AUTO) 0.1 /CMM (0.0-0.2); BASOPHILS % (AUTO) 0.7 % (0.0-2.0); EOSINOPHILS % (AUTO) 2.1 % (0.0-6.0); HEMATOCRIT 23 % (39-51); HEMOGLOBIN 7.1 g/dL (13.5-17.5); LYMPHOCYTES # (AUTO) 1.8 /CMM (0.8-4.8); LYMPHOCYTES % (AUTO) 12.6 % (20.0-44.0); MEAN CORPUSCULAR HGB CONC 31 g/dl (31.0-36.0); MEAN CORPUSCULAR VOLUME 90 fL (80-96); MONOCYTES # (AUTO) 1.4 /CMM (0.1-1.30); MONOCYTES % (AUTO) 10.1 % (2.0-12.0); NEUTROPHILS # (AUTO) 10.5 /CMM (1.8-8.9); NEUTROPHILS % (AUTO) 74.5 % (43.0-81.0); PLATELET COUNT (AUTO) 285 /CMM (150-450); RED BLOOD CELL COUNT(AUTO) 2.51 MIL/uL (4.5-6.0); WHITE BLOOD COUNT (AUTO) 14.1 K/uL (4.3-11.0)
--- NOTE | 2019-07-11 07:38 | NUR ---
TELE/RN CLOSING NOTES HOB ELEVATED, ALL NEEDS ATTENDED, ENDORSE TO AM RN FOR DENNIS.
[2019-07-11 07:40] LABS: ALBUMIN 2.1 g/dL (3.4-5.0); BILIRUBIN,TOTAL 0.3 mg/dL (0.2-1.0); CALCIUM, SERUM 9.7 mg/dL (8.5-10.1); MAGNESIUM 2.5 mg/dL (1.8-2.4); PHOSPHORUS 2.5 mg/dL (2.5-4.9); POTASSIUM 3.9 mmol/L (3.5-5.1); TOTAL PROTEIN, SERUM 6.6 g/dL (6.4-8.2)
[2019-07-11 07:42] LABS: CREATININE 7.6 mg/dL (0.6-1.3)
[2019-07-11 08:00] VITALS: BP 109/66
[2019-07-11] MEDS: PANTOPRAZOLE 40 MG/PACK PACK GT SCH (09:08)
[2019-07-11] MEDS: ASCORBIC ACID 500 MG TABLET GT SCH (09:08)
[2019-07-11] MEDS: ACIDOPHILUS/BULGARICUS 1 EACH TAB.CHEW GT SCH ×2 (09:08→21:46)
[2019-07-11] MEDS: VIT B CMPLX 3/FA/VIT C/BIOTIN 1 TAB TABLET GT SCH (09:08)
[2019-07-11] MEDS: ZINC SULFATE 220 MG CAPSULE GT SCH (09:08)
[2019-07-11] MEDS: ATENOLOL 25 MG TABLET GT SCH (09:09)
[2019-07-11] MEDS: SILVER SULFADIAZINE CREAM 25 GM TUBE TP SCH (09:11)
[2019-07-11] MEDS: HYDROGEL DRESSING 90 GM TUBE TP SCH ×2 (09:11→09:12)
[2019-07-11] MEDS: DAKINS QUARTER STRENGTH (0.125%) 480 ML BOTTLE TOP SCH (09:11)
[2019-07-11] MEDS: PROSOURCE / PROSTAT (PYXIS) 30 ML UDC GT SCH ×3 (09:11→17:00)
[2019-07-11] MEDS: MUPIROCIN OINT 2% 22 GM TUBE SCH ×2 (09:11→22:02)
[2019-07-11 12:00] VITALS: BP 103/72
[2019-07-11 16:00] VITALS: BP 114/72
--- NOTE | 2019-07-11 19:30 | NUR ---
RN OPENING NOTES: PATIENT ON VENT TRACH, TOLERATING WELL. NO RESPIRATORY DISTRESS. NO S/S OF PAIN. ON SENIOR PROJECT CONTROLS SPECIALIST, SINUS RHYTHM. HD CATH ON LEFT UPPER CHEST INTACT. ON GTF, NEPRO AT 50 MLS/HR, TOLERATING WELL WITH NO RESIDUALS. HOB ELEVATED. SAFETY PRECAUTIONS IMPLEMENTED. BED LOCKED, ALARM ON, AND IN LOWEST POSITION. CALL LIGHT PLACED WITHIN REACH. WILL CONT. TO MONITOR FOR CHANGES.
[2019-07-11 20:00] VITALS: BP 109/70
--- NOTE | 2019-07-11 23:00 | NUR ---
RN NOTE: IV ACCESS ON (R) FA G22 LEAKING. REMOVED OLD IV LINE. NEW IV LINE INSERTED BY CHARGE NURSE. INTACT, PATENT, AND FLUSHING WELL WITH GOOD BLOOD RETURN.
[2019-07-12] VITALS: BP 131/70
[2019-07-12] MEDS: BLOOD SUGAR DIAGNOSTIC 1 EACH STRIP IN SCH ×4 (00:50→18:14)
[2019-07-12] MEDS: ALBUTEROL FS 2.5 MG/0.5 ML VIAL.NEB NEB SCH ×4 (01:37→19:57)
[2019-07-12] MEDS: IPRATROPIUM NEB FS 0.5 MG/2.5 ML AMPUL.NEB NEB SCH ×4 (01:37→19:57)
[2019-07-12 04:00] VITALS: BP 126/70
[2019-07-12] MEDS: MEROPENEM 500 MG in IV NS 0.9% 50 ML IV SCH ×2 (05:14→17:42)
--- NOTE | 2019-07-12 07:25 | NUR ---
RN CLOSING NOTES: PATIENT IN BED, ASLEEP, BUT RESPONSIVE TO TACTILE AND VERBAL STIMULI WITH EYES OPEN. ON VENT TRACH, TOLERATING WELL. NO RESPIRATORY DISTRESS. PATIENT IN STABLE CONDITION THROUGHOUT THE SHIFT. NO ACTIVE BLEEDING. SAFETY PRECAUTIONS HAVE BEEN IMPLEMENTED. BED LOCKED, ALARM ON, AND IN LOWEST POSITION. CALL LIGHT PLACED WITHIN REACH. ENDORSED TO AM SHIFT NURSE FOR CONTINUITY OF CARE.
--- NOTE | 2019-07-12 07:53 | NUR ---
EDUCATION TEACHER NOTES RECEIVED PATIENT IN BED A/OX 1 , OPEN EYES WHEN NAME CALLED. ON NEPRO GTUBE FEEDING, NO RESIDUAL NOTED AT THIS TIME. PATIENT ON MRSA WOUND ISOLATION. NO SOB OR DISTRESS NOTED AT THIS TIME. CALL LIGHT WITHIN REACH, BED AT THE LOWEST POSITION LOCKED. WILL CONTINUE TO MONITOR PATIENT.
[2019-07-12 08:00] VITALS: BP 117/69
[2019-07-12] MEDS: PANTOPRAZOLE 40 MG/PACK PACK GT SCH ×2 (09:00→14:13)
[2019-07-12] MEDS: ACIDOPHILUS/BULGARICUS 1 EACH TAB.CHEW GT SCH ×3 (09:00→20:39)
[2019-07-12] MEDS: VIT B CMPLX 3/FA/VIT C/BIOTIN 1 TAB TABLET GT SCH ×2 (09:00→14:12)
[2019-07-12] MEDS: ZINC SULFATE 220 MG CAPSULE GT SCH ×2 (09:00→14:12)
[2019-07-12] MEDS: ASCORBIC ACID 500 MG TABLET GT SCH ×2 (09:00→14:12)
[2019-07-12] MEDS: ATENOLOL 25 MG TABLET GT SCH ×2 (09:00→14:13)
[2019-07-12] MEDS: HYDROGEL DRESSING 90 GM TUBE TP SCH ×2 (09:59)
[2019-07-12] MEDS: MUPIROCIN OINT 2% 22 GM TUBE SCH ×2 (10:13→20:40)
[2019-07-12] MEDS: SILVER SULFADIAZINE CREAM 25 GM TUBE TP SCH (10:14)
[2019-07-12] MEDS: DAKINS QUARTER STRENGTH (0.125%) 480 ML BOTTLE TOP SCH (10:14)
--- NOTE | 2019-07-12 10:25 | NUR ---
VIDEO PHOTOGRAPHER NOTES HELD AM MEDS DUE TO DIALYSIS.
[2019-07-12 12:00] VITALS: BP 137/73
[2019-07-12] MEDS: PROSOURCE / PROSTAT (PYXIS) 30 ML UDC GT SCH ×3 (14:13→17:40)
[2019-07-12] MEDS: NEPRO 1,000 ML BOTTLE GT PRN (14:16)
[2019-07-12 16:00] VITALS: BP 137/73
[2019-07-12] MEDS: Z GUARD REMEDY 2 OZ OINT TP SCH ×2 (17:41→20:41)
--- NOTE | 2019-07-12 19:30 | NUR ---
RN OPEN NOTES RECEIVED PATIENT RESTING COMFORTABLY IN BED. OBTUNDED. NO SIGNS OF DISTRESS OR DISCOMFORT. BREATHING EVEN AND UNLABORED. ON MECH VENT WITH SETTINGS ORDERED. ON TELE MONITORING WITH SR 100 NOTED. IV ACCESS IN RFA, PATENT AND INTACT, NO SIGNS OF REDNESS OR INFILTRATION. HAS GTUBE INTACT WITH FEEDING RUNNING, PATIENT TOLERATING WELL. BED IN LOW LOCKED POSITION WITH SIDE RAILS X2. CALL LIGHT WITHIN REACH. WILL CONTINUE TO MONITOR.
[2019-07-12 20:00] VITALS: BP 139/71
[2019-07-12] MEDS: ACETAMINOPHEN 650 MG/20.3 ML UDC GT PRN (20:39)
--- NOTE | 2019-07-12 20:57 | NUR ---
PT RCVD TRACH'D ON MECHANICAL VENT WITH CHARTED SETTINGS. PT HAYDEE TX WELL. SX DONE. PT TRACH IS PATENT AND SECURE. VENT ALARMS APPEAR TO BE FUNCTIONING PROPERLY. VENT PLUGGED INTO RED OUTLET. AMBU BAG AT BEDSIDE. NO SOB NOTED. Addendum: 07/12/19 at 2057 by PANKAJ NASH RT Amended: Links added.
[2019-07-13] VITALS: BP 118/72
[2019-07-13] MEDS: BLOOD SUGAR DIAGNOSTIC 1 EACH STRIP IN SCH ×3 (01:11→12:32)
[2019-07-13] MEDS: IPRATROPIUM NEB FS 0.5 MG/2.5 ML AMPUL.NEB NEB SCH ×3 (01:31→13:50)
[2019-07-13] MEDS: ALBUTEROL FS 2.5 MG/0.5 ML VIAL.NEB NEB SCH ×3 (01:31→13:50)
[2019-07-13 04:00] VITALS: BP 132/71
[2019-07-13] MEDS: MEROPENEM 500 MG in IV NS 0.9% 50 ML IV SCH ×2 (05:47→17:10)
--- NOTE | 2019-07-13 06:46 | NUR ---
RN CLOSING NOTES PATIENT RESTING COMFORTABLY IN BED. OBTUNDED. NO SIGNS OF DISTRESS OR DISCOMFORT. BREATHING EVEN AND UNLABORED. [facility] WITH SETTINGS ORDERED. ON TELE MONITORING WITH SR 84 NOTED. IV ACCESS IN RFA, PATENT AND INTACT, NO SIGNS OF REDNESS OR INFILTRATION. HAS GTUBE INTACT WITH FEEDING RUNNING, PATIENT TOLERATING WELL, WITH NO RESIDUAL NOTED THROUGHOUT SHIFT. DRESSING C/D/I. PATIENT KEPT CLEAN DRY AND COMFORTABLE. REPOSITIONED Q2H. NO SIGNIFICANT CHANGES THROUGH THE NIGHT. BED IN LOW LOCKED POSITION WITH SIDE RAILS X2. CALL LIGHT WITHIN REACH. WILL ENDORSE TO AM SHIFT FOR DENNIS.
[2019-07-13 08:00] VITALS: BP 130/72
[2019-07-13] MEDS: ASCORBIC ACID 500 MG TABLET GT SCH (08:38)
[2019-07-13] MEDS: PANTOPRAZOLE 40 MG/PACK PACK GT SCH (08:39)
[2019-07-13] MEDS: ZINC SULFATE 220 MG CAPSULE GT SCH (08:39)
[2019-07-13] MEDS: ATENOLOL 25 MG TABLET GT SCH (08:39)
[2019-07-13] MEDS: HYDROGEL DRESSING 90 GM TUBE TP SCH ×2 (08:39→08:44)
[2019-07-13] MEDS: ACIDOPHILUS/BULGARICUS 1 EACH TAB.CHEW GT SCH (08:39)
[2019-07-13] MEDS: VIT B CMPLX 3/FA/VIT C/BIOTIN 1 TAB TABLET GT SCH (08:39)
[2019-07-13] MEDS: DAKINS QUARTER STRENGTH (0.125%) 480 ML BOTTLE TOP SCH (08:41)
[2019-07-13] MEDS: SILVER SULFADIAZINE CREAM 25 GM TUBE TP SCH (08:42)
[2019-07-13] MEDS: MUPIROCIN OINT 2% 22 GM TUBE SCH (08:42)
[2019-07-13] MEDS: PROSOURCE / PROSTAT (PYXIS) 30 ML UDC GT SCH ×3 (08:44→17:25)
[2019-07-13] MEDS: NEPRO 1,000 ML BOTTLE GT PRN (08:44)
[2019-07-13] MEDS: Z GUARD REMEDY 2 OZ OINT TP SCH (08:44)
--- NOTE | 2019-07-13 10:30 | NUR ---
Wound care as ordered and dressing changed , d/c pictures taken
[2019-07-13 12:00] VITALS: BP 130/72
--- NOTE | 2019-07-13 13:50 | NUR ---
Report called to Ann FORREST ( [facility] )
[2019-07-13 16:00] VITALS: BP 120/70
--- NOTE | 2019-07-13 17:53 | NUR ---
Patient cleared for d/c to SNF by MD. All needs attended prior discharge. Patient vent depended with stable VS at baseline and BS 108, obtunded. non-verbal. HD access to the Left chest , dressing clean and intact , changed yesterday after HD. IV line removed. Patient on tube feeding with no residual. Multiple wounds and d/c pictures taken and placed in the chart. Med recon provided for facility. Wound care instructions provided for facility. D/C papers sighed by 2 nurses due to patient's condition. Patient has no belongings. Patient picked up by ambulance.
== END 2019-07-13 17:55 | DRG 710 ==
LOC: ER 18:35 → TELE1 21:15
PROVIDERS: ADMIT Internal Medicine; ATTEND Internal Medicine Nephrology
PROC: 5A1955Z Respiratory Ventilation, Greater than 96 Consecutive Hours (ICD-10-PCS; 2019-07-05)
PROC: 0KBN0ZZ Excision of Right Hip Muscle, Open Approach (ICD-10-PCS; principal; 2019-07-06)
PROC: 5A1D70Z Performance of Urinary Filtration, Intermittent, Less than 6 Hours Per Day (ICD-10-PCS; principal; 2019-07-06)
PROC: 0KBP0ZZ Excision of Left Hip Muscle, Open Approach (ICD-10-PCS; principal; 2019-07-06)
PROC: 0KBP0ZZ Excision of Left Hip Muscle, Open Approach (ICD-10-PCS; 2019-07-10)
DX: A41.9 Sepsis, unspecified organism (principal); Z99.11 Dependence on respirator [ventilator] status; G93.40 Encephalopathy, unspecified; L89.154 Pressure ulcer of sacral region, stage 4; J96.10 Chronic respiratory failure, unspecified whether with hypoxia or hypercapnia; E46 Unspecified protein-calorie malnutrition; R40.3 Persistent vegetative state; L89.324 Pressure ulcer of left buttock, stage 4; E11.22 Type 2 diabetes mellitus with diabetic chronic kidney disease; R53.2 Functional quadriplegia; E11.51 Type 2 diabetes mellitus with diabetic peripheral angiopathy without gangrene; I12.0 Hypertensive chronic kidney disease with stage 5 chronic kidney disease or end stage renal disease; N18.6 End stage renal disease; Z99.2 Dependence on renal dialysis; E11.621 Type 2 diabetes mellitus with foot ulcer; L97.419 Non-pressure chronic ulcer of right heel and midfoot with unspecified severity; N39.0 Urinary tract infection, site not specified; I69.354 Hemiplegia and hemiparesis following cerebral infarction affecting left non-dominant side; M24.542 Contracture, left hand; M24.541 Contracture, right hand; M24.562 Contracture, left knee; M24.561 Contracture, right knee; L97.429 Non-pressure chronic ulcer of left heel and midfoot with unspecified severity; D64.9 Anemia, unspecified; S31.30XA Unspecified open wound of scrotum and testes, initial encounter; X58.XXXA Exposure to other specified factors, initial encounter; Y93.9 Activity, unspecified; Z79.4 Long term (current) use of insulin; Z93.0 Tracheostomy status; Z93.1 Gastrostomy status; Z22.322 Carrier or suspected carrier of Methicillin resistant Staphylococcus aureus; Z68.23 Body mass index [BMI] 23.0-23.9, adult; Y92.129 Unspecified place in nursing home as the place of occurrence of the external cause; N25.0 Renal osteodystrophy
CPT/HCPCS: 31720; 36415; 71045-TC; 76700-TC; 80048-TC; 80053-TC; 80076-TC; 80202-TC; 81000-TC; 82962-TC; 83605-TC; 83735-TC; 84100-TC; 84484-TC; 85025-TC; 85730-TC; 86706; 87040-TC; 87070-TC; 87081-TC; 87086-TC; 87186-TC; 87340; 90935-TC; 94002-TC; 94003-TC; 94760-TC; 94762-TC; 94799-TC; 99082-TC; A4216; A4623; A6248; A6253; A6403; G0378; J0692; J0885; J1815; J2185; J3370; J3490; J7030; J7060

== ENCOUNTER 2019-08-07 14:28 | Inpatient (IN) | payer MEDICAID ==
[~2019-08-07] VITALS: Ht 172.7 cm; Wt 75.7 kg
[2019-08-07] VITALS (17 sets, daily range): BP systolic 71–101; BP diastolic 45–63
[~2019-08-07 14:28] MED LIST changes: +ACET-2605 GT; -ALLA266C2 TP; -AMIK250V13 IJ; +AMIN30LI2 GT; -IPRA0.2S9 NEB; +MAGN400O6 GT; +NA P133E RC; +ONDA4TAB5 GT; -PROT946L GT; -SUCR1ORA4 GT; -SULF10VI2 IV; +SULF1TAB48 GT; +TRAM50TA2 GT
--- NOTE | 2019-08-07 14:32 | NUR ---
PT HAS LEFT CHEST DIALYSIS CATH AND G TUBE.
--- NOTE | 2019-08-07 14:32 | NUR ---
PT FEET CONTRACTED.
--- NOTE | 2019-08-07 14:32 | NUR ---
PT BIB PA FROM DIALYSIS CENTER, UNABLE TO DO TREATMENT DUE TO LOW BP (SBP=80"S) PER PA BP WAS 89/59 AND HR 95 AT DIALYSIS.
--- NOTE | 2019-08-07 14:43 | NUR ---
RT AT BEDSIDE 14 550 40%
--- NOTE | 2019-08-07 14:55 | NUR ---
LINE ESTABLISHED. LABS COLLECTED
--- NOTE | 2019-08-07 14:55 | NUR ---
HR 90 109/67 100 O2
--- NOTE | 2019-08-07 14:56 | NUR ---
RT REPORT, PT. 59 Y OLD MALE REC. IN ER FOR HYPOTENSION AWAKE, BUT NOT VERBAL @1450 PM PLACED ON VENT WITH NOTES SETTINGS TRACH PORTEX # 8 ,ALARMS ARE SET AND FUNCTIONAL. EQUAL CHEST RISE NOTED AND BILATERALLY RHONCHI B/S AND SUX'D FOR SMALL AMT OF WHITE SECRETIONS, NO DISTRESS NOTED PT. REMAIN STABLE. VENT PLUGGED INTO RED OUT LET & AMBU BAG AT THE BEDSIDE. CONTINUE TO MONITOR. Addendum: 08/07/19 at 1500 by SHIRLEY REID RT Amended: Links added.
--- NOTE | 2019-08-07 15:10 | NUR ---
EMT AT BEDSIDE FOR ECG
[2019-08-07] MEDS ORDERED: ZINC1CAP2 GT (15:21)
[2019-08-07] MEDS ORDERED: IPRA3AMP23 IH (15:21)
--- NOTE | 2019-08-07 15:24 | NUR ---
PIC LINE CONSENT SIGNED
[2019-08-07 15:30] LABS: BASOPHILS # (AUTO) 0.1 /CMM (0.0-0.2); BASOPHILS % (AUTO) 0.8 % (0.0-2.0); HEMATOCRIT 24 % (39-51); HEMOGLOBIN 7.7 g/dL (13.5-17.5); LYMPHOCYTES # (AUTO) 1.9 /CMM (0.8-4.8); LYMPHOCYTES % (AUTO) 12.4 % (20.0-44.0); MEAN CORPUSCULAR HGB CONC 32 g/dl (31.0-36.0); MEAN CORPUSCULAR VOLUME 93 fL (80-96); MONOCYTES # (AUTO) 1.7 /CMM (0.1-1.30); NEUTROPHILS # (AUTO) 11.1 /CMM (1.8-8.9); NEUTROPHILS % (AUTO) 73.8 % (43.0-81.0); PLATELET COUNT (AUTO) 395 /CMM (150-450); RED BLOOD CELL COUNT(AUTO) 2.64 MIL/uL (4.5-6.0); WHITE BLOOD COUNT (AUTO) 15.1 K/uL (4.3-11.0)
--- NOTE | 2019-08-07 15:30 | NUR ---
PIC LINE NURSE AT BEDSIDE
[2019-08-07 15:36] LABS: APPEARANCE,URINE Slightly Cloudy (CLEAR); BILIRUBIN,URINE SMALL (NEGATIVE); BLOOD, URINE Small Ery/uL (NEGATIVE); COLOR,URINE Dark (YELLOW); KETONES,URINE Negative (NEGATIVE); LEUKOCYTE ESTERASE ,URINE Small (NEGATIVE); NITRITE, URINE Positive (NEGATIVE); PH,URINE 8.5 (5.0-8.0); PROTEIN,URINE >=300 mg/dl (NEGATIVE); UGLUCOSE Negative (NEGATIVE); UROBILINOGEN,URINE 0.2 EU/dL (0.2)
[2019-08-07 15:37] LABS: ABG OXYGEN SATURATION 98.2 % (92.0-98.5); ABG PCO2 32.8 mmHg (35.0-45.0); ABG PH 7.557 (7.350-7.450); ABG PO2 117.6 mmHg (75.0-100.0); AaDO2 129.9 mmHg; COHb 0.2 % (0.5-1.5); MetHb 0.4 % (0.0-1.5); O2Hb 97.6 % (94.0-97.0); PEEP,BG 5 cm H2O; SITE, ABG Left Radial; VT, ABG 550 mL
--- NOTE | 2019-08-07 15:40 | NUR ---
MOVE SHEET SUBMITTED AND CALLED FOR BED
--- NOTE | 2019-08-07 15:43 | NUR ---
OK TO STAY PER ADMITTING
--- NOTE | 2019-08-07 15:45 | NUR ---
VENT CHANGES DONE POST ABG PER ER Gisela ZIEGLER ORDER Addendum: 08/07/19 at 1546 by SHIRLEY REID RT Amended: Links added.
[2019-08-07 15:49] LABS: ALANINE AMINOTRANSFERASE 44 U/L (12-78); ALBUMIN 2.7 g/dL (3.4-5.0); ALKALINE PHOSPHATASE 127 U/L (46-116); ASPARTATE AMINOTRANSFERASE 29 U/L (15-37); BILIRUBIN,DIRECT 0.1 mg/dL (0.0-0.2); BILIRUBIN,TOTAL 0.5 mg/dL (0.2-1.0); CALCIUM, SERUM 10.4 mg/dL (8.5-10.1); CARBON DIOXIDE 32 mmol/L (21-32); CHLORIDE 97 mmol/L (98-107); GLUCOSE 104 mg/dL (74-106); POTASSIUM 3.3 mmol/L (3.5-5.1); SODIUM SERUM 142 mmol/L (136-145); TOTAL PROTEIN, SERUM 7.9 g/dL (6.4-8.2)
[2019-08-07 15:50] LABS: UREA NITROGEN, BLOOD 91 mg/dL (7-18)
[2019-08-07 15:51] LABS: CREATININE 9.6 mg/dL (0.6-1.3)
[2019-08-07 15:54] LABS: BACTERIA,URINE Moderate /HPF (None Seen); SQUAMOUS EPITHELIAL CELL,UR Few /HPF (None Seen)
[2019-08-07] MEDS ORDERED: PIPERACILLIN /TAZOBACTAM 2.25 G in IV D5W 50 ML IV ONE (16:00)
[2019-08-07] MEDS ORDERED: VANCOMYCIN 1 GM in IV D5W 250 ML IV ONE (16:00)
--- NOTE | 2019-08-07 16:10 | NUR ---
CALLED [facility]
--- NOTE | 2019-08-07 16:10 | NUR ---
PIC LINE NURSE UNABLE TO INSERT PIC LINE DUE TO PT HAVING CHEST DIALYSIS CATH. AWARE.
--- NOTE | 2019-08-07 16:27 | NUR ---
PIC CATH IN MIDLINE 14CM R BRACHIAL
[2019-08-07] MEDS ORDERED: IPRATROPIUM NEB FS 0.5 MG/2.5 ML AMPUL.NEB ONE (16:40)
[2019-08-07] MEDS: IPRATROPIUM NEB FS 0.5 MG/2.5 ML AMPUL.NEB NEB SCH ×2 (16:45→20:22)
--- NOTE | 2019-08-07 16:49 | NUR ---
RT AT BEDSIDE FOR BREATHING TREATMENT
--- NOTE | 2019-08-07 16:49 | NUR ---
PER RT VENT SETTING CHANGED AC 12 VT 500 02 40 PEEP 0
[2019-08-07] MEDS ORDERED: IV D5/ 0.9% NACL 1,000 ML IV ONE (17:00)
--- NOTE | 2019-08-07 17:07 | NUR ---
PICC LINE NURSE AT BEDSIDE FOR FEMORAL LINE
--- NOTE | 2019-08-07 18:01 | NUR ---
R FEMORAL PIC LINE INSERTED. DULL LUMEN 40CM IVC
[2019-08-07 18:02] LABS: ABG BASE EXCESS 4.1 mmol/L; ABG PCO2 38.5 mmHg (35.0-45.0); ABG PH 7.478 (7.350-7.450); ABG PO2 125.9 mmHg (75.0-100.0); COHb 0.5 % (0.5-1.5); MetHb 0.6 % (0.0-1.5); O2Hb 96.9 % (94.0-97.0); PEEP,BG 0 cm H2O; SITE, ABG Left Radial; VT, ABG 500 mL
--- NOTE | 2019-08-07 19:18 | NUR ---
REPORT GIVEN TO ANA FORREST FOR DENNIS
--- NOTE | 2019-08-07 19:38 | NUR ---
PT TRANSFERED PER ACLS PROTOCOL
--- NOTE | 2019-08-07 19:40 | NUR ---
TRANSITIONAL LIVING SPECIALIST: RECEIVED PT FROM ED FOR SEPSIS/HYPOTENSION. VENT DEPENDENT WT SETTINGS ORDERED. ALERT AND AWAKE, ABLE TO FOLLOW SIMPLE COMMANDS SUCH BLINKING OF EYES AND OPENING OF MOUTH WHEN TOLD TO DO SO. NO ACUTE DISTRESS, NO EVIDENCE OF DISCOMFORT. SR WT OCCASIONAL PVCs ON AXMINSTER RUG SETTER. AFEBRILE. BODY ASSESSMENT DONE WT MULTIPLE WOUNDS. ALEX MIDLINE, RIGHT FEMORAL DOUBLE LUMEN CATH. AND LEFT SUBCLAV. HD CATH INTACT WT NO S/S OF COMPLICATIONS. HOB AT 35 DEGREES, BED IN LOWEST POSITION AND LOCKED, SIDE RAILS UP X3. AWAITING ADMISSION ORDERS.
--- NOTE | 2019-08-07 20:45 | NUR ---
LOADING UNIT OPERATOR SEATING: CALLED AND NOTIFIED DR. OLIVARES FOR ADMISSION ORDERS AND SAID HE'S WORKING ON IT.
[2019-08-07] MEDS ORDERED: NEPRO VAN 237 ML CAN GT SCH (21:30)
[2019-08-07] MEDS ORDERED: BISACODYL SUPP (10 MG) 10 MG/SUPP.RECT SUPP.RECT RC PRN (21:30)
[2019-08-07] MEDS ORDERED: Medication Not On Formulary EA (Ipratropium/Albuterol Sulfate (Duoneb 2.5-0.5 Mg/3 Ml So IH PRN (21:30)
[2019-08-07] MEDS ORDERED: IV NS 0.9% 1,000 ML BAG IV ONE (22:00)
[2019-08-07] MEDS ORDERED: DEXTROSE 50%-WATER 50 ML DISP.SYRIN IV PRN (22:00)
[2019-08-07] MEDS: ENOXAPARIN SODIUM 30 MG/0.3 ML DISP.SYRIN SQ SCH (22:30)
[2019-08-07] MEDS ORDERED: ALBUTEROL FS 2.5 MG/3 ML VIAL.NEB NEB PRN (22:30)
[2019-08-07] MEDS ORDERED: IPRATROPIUM NEB FS 0.5 MG/2.5 ML AMPUL.NEB NEB PRN (22:30)
--- NOTE | 2019-08-07 23:20 | NUR ---
C D AREA SUPERVISOR: NS BOLUS 1L ADMINISTERED. WILL CONTINUE TO MONITOR BP AND WILL START LEVOPHED NEEDED.
[2019-08-08] VITALS (88 sets, daily range): BP systolic 82–129; BP diastolic 59–89
[2019-08-08] MEDS ORDERED: Medication Not On Formulary EA (Ipratropium/Albuterol Sulfate (Duoneb 2.5-0.5 Mg/3 Ml So IH SCH
[2019-08-08] MEDS: BLOOD SUGAR DIAGNOSTIC 1 EACH STRIP IN SCH ×5 (00:17→23:43)
[2019-08-08] MEDS ORDERED: NEPRO 1,000 ML BOTTLE GT PRN ×2 (00:30)
[2019-08-08] MEDS ORDERED: NOREPINEPHRINE 4 MG/4 ML AMPUL IV ONE (01:10)
[2019-08-08] MEDS: IPRATROPIUM NEB FS 0.5 MG/2.5 ML AMPUL.NEB NEB SCH ×4 (01:22→19:44)
[2019-08-08] MEDS: ALBUTEROL FS 2.5 MG/3 ML VIAL.NEB NEB SCH ×4 (01:22→19:44)
[2019-08-08] MEDS: NOREPINEPHRINE 16 MG in IV D5W 500 ML IV PRN ×2 (03:38→15:07)
--- NOTE | 2019-08-08 03:40 | NUR ---
SHEET METAL TECHNICIAN: LEVOPHED STARTED FOR BP SUPPORT. PT REMAINS AWAKE. ABLE TO FOLLOW SIMPLE COMMANDS. NO ACUTE DISTRESS. NO EVIDENCE OF DISCOMFORT. WILL CONTINUE TO MONITOR.
--- NOTE | 2019-08-08 06:50 | NUR ---
BRAND PLANNER: GTF TOLERATING WELL WT NO RESIDUAL. STILL ON LEVOPHED AT 3MCG/MIN FOR BP SUPPORT. WILL CONTINUE TO MONITOR.
--- NOTE | 2019-08-08 07:30 | NUR ---
RN NOTE: Received patient in bed, asleep, but arousable to name and tactile stimuli. Respiration even and unlabored saturating 100% with current ventilator setting. HOB elevated. 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 GT feeding of Nephro @50ml/hr with 5 ml of residual noted. Patient was warm to touch. Bed on lowest position and locked at all times. awaiting for wound, dietitian and podiatry consult. Needs anticipated.
--- NOTE | 2019-08-08 07:35 | NUR ---
RT RECEIVED PT TRACH'D ON [facility] VENT WITH SETTINGS PER MD ORDER. CLINICAL APPLICATION MANAGER DONE. SPARE TRACH AND AMBU BAG AT BEDSIDE. VENT ALARMS ON AND WORKING PROPERLY. SUCTIONED SMALL AMOUNTS OF PALE YELLOW SECRETIONS. TX GIVEN ORDERED. NO ADVERSE REACTIONS OBSERVED. NO SIGNS OF DISTRESS NOTED. WILL CONTINUE TO MONITOR FOR ANY CHANGES. Addendum: 08/08/19 at 1715 by JAVID HART RT Amended: Links added.
[2019-08-08 08:05] LABS: BASOPHILS # (AUTO) 0.1 /CMM (0.0-0.2); BASOPHILS % (AUTO) 0.7 % (0.0-2.0); EOSINOPHILS % (AUTO) 2.8 % (0.0-6.0); HEMATOCRIT 21 % (39-51); LYMPHOCYTES # (AUTO) 1.6 /CMM (0.8-4.8); LYMPHOCYTES % (AUTO) 13.8 % (20.0-44.0); MEAN CORPUSCULAR HGB CONC 31 g/dl (31.0-36.0); MEAN CORPUSCULAR VOLUME 93 fL (80-96); MONOCYTES # (AUTO) 1.1 /CMM (0.1-1.30); MONOCYTES % (AUTO) 9.5 % (2.0-12.0); NEUTROPHILS # (AUTO) 8.4 /CMM (1.8-8.9); NEUTROPHILS % (AUTO) 73.2 % (43.0-81.0); PLATELET COUNT (AUTO) 330 /CMM (150-450); RED BLOOD CELL COUNT(AUTO) 2.25 MIL/uL (4.5-6.0); WHITE BLOOD COUNT (AUTO) 11.5 K/uL (4.3-11.0)
[2019-08-08 08:25] LABS: HEMOGLOBIN 6.5 g/dL (13.5-17.5)
[2019-08-08] MEDS: CHLORHEXIDINE GLUCONATE 15 ML UDC MM SCH ×2 (08:48→21:08)
[2019-08-08] MEDS: DOCUSATE SODIUM 100 MG CAPSULE PO SCH ×2 (08:48→16:42)
[2019-08-08] MEDS: ZINC SULFATE 220 MG CAPSULE GT SCH (08:48)
[2019-08-08] MEDS: VIT B CMPLX 3/FA/VIT C/BIOTIN 1 TAB TABLET GT SCH (08:49)
[2019-08-08] MEDS: ASCORBIC ACID 500 MG TABLET GT SCH (08:49)
[2019-08-08 08:50] LABS: CALCIUM, SERUM 9.6 mg/dL (8.5-10.1); MAGNESIUM 3.2 mg/dL (1.8-2.4); POTASSIUM 3.1 mmol/L (3.5-5.1)
--- NOTE | 2019-08-08 08:52 | NUR ---
RN NOTE: Reported to Dr. Mathew the H/H of 6.5 and he gave order, noted and carried out.
[2019-08-08] MEDS ORDERED: CHLORHEXIDINE GLUCONATE 473 ML BOTTLE MM SCH (09:00)
[2019-08-08] MEDS ORDERED: PREVACID (NF) 30 MG TAB GT SCH (09:00)
[2019-08-08 09:01] LABS: LYMPHOCYTES % (MANUAL) 13 % (16-48); MONOCYTES % (MANUAL) 7 % (0-11.0); MYELOCYTES % 1 % (0-0); NEUTROPHILS % (MANUAL) 79 (42-76)
--- NOTE | 2019-08-08 09:05 | NUR ---
RN NOTE: Telephone consent for blood tranfusion and hemodialysis was provided by Ricardo Schuler, daughter.
[2019-08-08] MEDS: PANTOPRAZOLE 40 MG/PACK PACK GT SCH (09:15)
[2019-08-08] MEDS ORDERED: LIDOCAINE 1%-EPI 1:100,000 20 ML VIAL TP ONE (10:30)
[2019-08-08] MEDS ORDERED: SILVER NITRATE APPLICATOR 1 EA BOX TP SCH (10:30)
--- NOTE | 2019-08-08 10:55 | NUR ---
RN NOTE: Patient was dialyzed today and HD nurse José removed 1L of fluid. Still pending with the blood from blood bank. 1 unit PRBC was still unavailable at this time.
--- NOTE | 2019-08-08 10:55 | NUR ---
RN NOTE: Telephone consent was provided by Ricardo Schuler, daughter regarding the serial debridement of (L) buttock and sacrum. Signed and filed on patient's chart.
[2019-08-08] MEDS: INSULIN REGULAR, HUMAN 100 UNIT/ML 3 ML VIAL SQ PRN ×2 (12:10→18:37)
[2019-08-08] MEDS: NEPRO 1,000 ML BOTTLE GT PRN (12:41)
[2019-08-08] MEDS: ACETAMINOPHEN 650 MG/20.3 ML UDC GT PRN (12:43)
[2019-08-08] MEDS: HYDROGEL DRESSING 90 GM TUBE TP SCH (15:11)
[2019-08-08] MEDS: DAKINS QUARTER STRENGTH (0.125%) 480 ML BOTTLE TOP SCH (15:12)
[2019-08-08 17:34] LABS: OCCULT BLOOD STOOL NEGATIVE (NEGATIVE)
--- NOTE | 2019-08-08 19:20 | NUR ---
ICU/RN NOTES PATIENT RECEIVED IN BED, AWAKE, ALERT AND ORIENTED X 1. IN NO ACUTE DISTRESS. BREATHING EVEN AND UNLABORED. NO SHORTNESS OF BREATH NOTED. NO S/S OF PAIN NOTED. NO FACIAL GRIMACING. TRACH TO VENT WITH PRESCRIBED SETTINGS. TRACH INTACT, PATENT. G-TUBE IN PLACE, PATENT, CONNECTED TO FEEDING ORDERED, WITH NO RESIDUAL. LCW HD CATH IN PLACE, ALEX PICC LINE, AND RIGHT FEMORAL DOUBLE LUMEN IN PLACE, PATENT, DRESSING INTACT. LEVOPHED RUNNING AT 3MCG/MIN. BLOOD PRESSURE STABLE. SINUS RHYTHM ON THE MONITOR. SAFETY MAINTAINED. BED AT THE LOWEST LOCKED POSITION. CALL LIGHT WITHIN REACH. ISOLATION PRECAUTIONS MAINTAINED. GOOD HAND WASHING DONE. WILL CONTINUE TO MONITOR PER PLAN OF CARE.
--- NOTE | 2019-08-08 19:39 | NUR ---
RN NOTE: Bedside report was given to LON Edwards for continuity of care. Patient on GT feeding of Nephro @55ml/hr tolerated well. HOB elevated. 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 HD was done today with 1L of fluid removed. Patient remained on Levophed 3mcg/min to keep SBP >90mmHg. Cooling measures were provided.
--- NOTE | 2019-08-08 19:44 | NUR ---
RECEIVED PT TRACH'D PORTEX 8 ON [facility] VENT WITH NOTED SETTINGS PER MD ORDER. FINANCIAL COMPLIANCE OFFICER DONE. SPARE TRACH AND AMBU BAG AT BEDSIDE. VENT ALARMS ON AND AUDIBLE. SUCTIONED DONE PRN. BREATHING TX GIVEN ORDERED. NO ADVERSE REACTIONS NOTED. NO RESPIRATORY DISTRESS NOTED AT THIS TIME. WILL CONTINUE TO MONITOR THE PT T/O SHIFT
[2019-08-08] MEDS: ENOXAPARIN SODIUM 30 MG/0.3 ML DISP.SYRIN SQ SCH (20:41)
--- NOTE | 2019-08-08 20:42 | NUR ---
Patient HGB was 6.5, HCT was 21 today, patient was given 1 unit of PRBC. Patient has Lovenox 30mg order for 2099. Called [facility], relayed the situation with new order to Hold the dose for today. Noted and carried out
[2019-08-09] VITALS (62 sets, daily range): BP systolic 83–123; BP diastolic 58–87
[2019-08-09] MEDS: IPRATROPIUM NEB FS 0.5 MG/2.5 ML AMPUL.NEB NEB SCH ×4 (00:57→19:57)
[2019-08-09] MEDS: ALBUTEROL FS 2.5 MG/3 ML VIAL.NEB NEB SCH ×4 (00:57→19:57)
[2019-08-09 04:30] LABS: BASOPHILS # (AUTO) 0.1 /CMM (0.0-0.2); BASOPHILS % (AUTO) 0.6 % (0.0-2.0); EOSINOPHILS % (AUTO) 3.3 % (0.0-6.0); HEMATOCRIT 25 % (39-51); HEMOGLOBIN 7.9 g/dL (13.5-17.5); LYMPHOCYTES # (AUTO) 1.6 /CMM (0.8-4.8); LYMPHOCYTES % (AUTO) 12.5 % (20.0-44.0); MEAN CORPUSCULAR HGB CONC 32 g/dl (31.0-36.0); MEAN CORPUSCULAR VOLUME 93 fL (80-96); MONOCYTES # (AUTO) 1.5 /CMM (0.1-1.30); MONOCYTES % (AUTO) 11.7 % (2.0-12.0); NEUTROPHILS # (AUTO) 9.1 /CMM (1.8-8.9); NEUTROPHILS % (AUTO) 71.9 % (43.0-81.0); PLATELET COUNT (AUTO) 343 /CMM (150-450); RED BLOOD CELL COUNT(AUTO) 2.66 MIL/uL (4.5-6.0); WHITE BLOOD COUNT (AUTO) 12.6 K/uL (4.3-11.0)
[2019-08-09 04:47] LABS: CALCIUM, SERUM 9.7 mg/dL (8.5-10.1); CREATININE 7.4 mg/dL (0.6-1.3); MAGNESIUM 2.9 mg/dL (1.8-2.4); PHOSPHORUS 3.3 mg/dL (2.5-4.9)
[2019-08-09] MEDS: BLOOD SUGAR DIAGNOSTIC 1 EACH STRIP IN SCH ×3 (06:08→17:42)
--- NOTE | 2019-08-09 07:14 | NUR ---
ICU/RN NOTES PATIENT REMAINED IN BED, AWAKE, ALERT AND ORIENTED X 1. IN NO ACUTE DISTRESS. BREATHING EVEN AND UNLABORED. NO SHORTNESS OF BREATH NOTED. NO S/S OF PAIN NOTED. NO FACIAL GRIMACING. TRACH TO VENT WITH PRESCRIBED SETTINGS. TRACH INTACT, PATENT. G-TUBE IN PLACE, PATENT, CONNECTED TO FEEDING ORDERED, WITH NO RESIDUAL. LCW HD CATH IN PLACE, ALEX PICC LINE, AND RIGHT FEMORAL DOUBLE LUMEN IN PLACE, PATENT, DRESSING INTACT. LEVOPHED RUNNING AT 5MCG/MIN. BLOOD PRESSURE STABLE. SINUS RHYTHM ON THE MONITOR. DUE MEDS GIVEN ORDERED. TOLERATED WELL. TREATMENT RENDERED. SAFETY MAINTAINED. BED AT THE LOWEST LOCKED POSITION. CALL LIGHT WITHIN REACH. ISOLATION PRECAUTIONS MAINTAINED. GOOD HAND WASHING DONE. ENDORSE TO AM SHIFT NURSE FOR DENNIS.
[2019-08-09] MEDS: CHLORHEXIDINE GLUCONATE 15 ML UDC MM SCH ×2 (08:38→21:15)
[2019-08-09] MEDS: ASCORBIC ACID 500 MG TABLET GT SCH (08:38)
[2019-08-09] MEDS: VIT B CMPLX 3/FA/VIT C/BIOTIN 1 TAB TABLET GT SCH (08:38)
[2019-08-09] MEDS: ZINC SULFATE 220 MG CAPSULE GT SCH (08:38)
[2019-08-09] MEDS: PANTOPRAZOLE 40 MG/PACK PACK GT SCH (08:38)
[2019-08-09] MEDS: DOCUSATE SODIUM 100 MG CAPSULE PO SCH (08:38)
[2019-08-09] MEDS: HYDROGEL DRESSING 90 GM TUBE TP SCH (08:39)
[2019-08-09] MEDS: DAKINS QUARTER STRENGTH (0.125%) 480 ML BOTTLE TOP SCH ×2 (08:39→08:40)
[2019-08-09] MEDS: SILVER SULFADIAZINE 50 GM JAR TP SCH (08:59)
--- NOTE | 2019-08-09 09:00 | NUR ---
ICU/RN: Discussed abn labs with Dr Dimas. For HD tomorrow. Will replace electrolytes as ordered.
[2019-08-09] MEDS ORDERED: POTASSIUM CHLORIDE 10 MEQ TABLET.SA PO ONE (09:30)
[2019-08-09] MEDS ORDERED: POTASSIUM CHLORIDE 20 MEQ POWDER PACKET GT ONE (10:30)
--- NOTE | 2019-08-09 13:00 | NUR ---
ICU/RN: S/P R heel debridement, pt tolerated well. Foot dressings changed by DPM.
[2019-08-09] MEDS: NOREPINEPHRINE 16 MG in IV D5W 500 ML IV PRN (14:19)
[2019-08-09] MEDS: NEPRO 1,000 ML BOTTLE GT PRN (14:19)
--- NOTE | 2019-08-09 15:45 | NUR ---
ICU/RN: Followed up cortisol levels drawn on 08/[address] Conte. Per lab, test is a send out and the results are still pending. Lab to call once results are available.
--- NOTE | 2019-08-09 16:00 | NUR ---
ICU/RN: Bed bath, wound care rendered. KCI mattress applied. No bleeding noted from R heel s/p debridement. Tolerated well.
[2019-08-09] MEDS: DOCUSATE SODIUM LIQ 100 MG/10 ML UDC GT SCH (17:42)
[2019-08-09] MEDS: HYDROCORTISONE SOD SUCCINATE 100 MG/2 ML VIAL IV SCH (17:42)
--- NOTE | 2019-08-09 18:00 | NUR ---
ICU/RN: Unable to titrate levophed dose throughout the day; pt with SBP in 80's from 100's during titration.
--- NOTE | 2019-08-09 19:30 | NUR ---
SENIOR HRIS ANALYST RCD PT W/DX SEPSIS; PT IS AWAKE BUT DOES NOT FOLLOW COMMANDS. NSR ON MONITOR. LEVOPHED AT 5 MCG/MIN TO MAINTAIN SBP >90. PORTEX 8 W/VENT SETTINGS AC 12 500 40%; RENDERED ORAL CARE. NEPRO @ 55 ML/HR NO RESIDUAL AT THIS TIME. CONTINUE TO MONITOR.
[2019-08-09] MEDS: ENOXAPARIN SODIUM 30 MG/0.3 ML DISP.SYRIN SQ SCH (21:15)
[2019-08-10] VITALS (77 sets, daily range): BP systolic 85–114; BP diastolic 56–80
[2019-08-10] MEDS: BLOOD SUGAR DIAGNOSTIC 1 EACH STRIP IN SCH ×5 (00:33→23:49)
[2019-08-10] MEDS: INSULIN REGULAR, HUMAN 100 UNIT/ML 3 ML VIAL SQ PRN ×3 (01:00→23:59)
[2019-08-10] MEDS: ALBUTEROL FS 2.5 MG/3 ML VIAL.NEB NEB SCH ×4 (01:45→19:20)
[2019-08-10] MEDS: IPRATROPIUM NEB FS 0.5 MG/2.5 ML AMPUL.NEB NEB SCH ×4 (01:45→19:20)
[2019-08-10 04:42] LABS: BASOPHILS % (AUTO) 0.4 % (0.0-2.0); HEMATOCRIT 25 % (39-51); HEMOGLOBIN 7.8 g/dL (13.5-17.5); LYMPHOCYTES # (AUTO) 1.2 /CMM (0.8-4.8); LYMPHOCYTES % (AUTO) 9.3 % (20.0-44.0); MEAN CORPUSCULAR HGB CONC 32 g/dl (31.0-36.0); MEAN CORPUSCULAR VOLUME 93 fL (80-96); MONOCYTES # (AUTO) 0.7 /CMM (0.1-1.30); MONOCYTES % (AUTO) 5.5 % (2.0-12.0); NEUTROPHILS # (AUTO) 10.8 /CMM (1.8-8.9); NEUTROPHILS % (AUTO) 84.8 % (43.0-81.0); PLATELET COUNT (AUTO) 391 /CMM (150-450); RED BLOOD CELL COUNT(AUTO) 2.65 MIL/uL (4.5-6.0); WHITE BLOOD COUNT (AUTO) 12.8 K/uL (4.3-11.0)
[2019-08-10 04:54] LABS: CALCIUM, SERUM 10.4 mg/dL (8.5-10.1); MAGNESIUM 3.5 mg/dL (1.8-2.4); PHOSPHORUS 2.6 mg/dL (2.5-4.9); POTASSIUM 3.8 mmol/L (3.5-5.1)
[2019-08-10 04:55] LABS: CREATININE 9.1 mg/dL (0.6-1.3)
--- NOTE | 2019-08-10 06:00 | NUR ---
PERMIT REVIEW ASSISTANT TITRATED LEVOPHED TO 1 MCG/MIN; CONTINUE TO MONITOR SBP.
--- NOTE | 2019-08-10 07:41 | NUR ---
DELIVER DRIVER: pt.is obtunded, with open eyes, rest, no grimacing, no eyes contact, unable to follow commands, L.weakness/s/p CVA, legs are rigid, R.arm activity+, SR, On LEvophed gtt, 1 mcg/m now, continue titrate, SBP over 90 now, HD today, O2sat, over 95%, no SOB, GTF residual 10ml, keep HOB over 40, w/c done by report, no critical labs values, suctioned well, T 97.8
[2019-08-10] MEDS: DAKINS QUARTER STRENGTH (0.125%) 480 ML BOTTLE TOP SCH ×2 (07:57→07:59)
[2019-08-10] MEDS: SILVER SULFADIAZINE 50 GM JAR TP SCH (07:57)
[2019-08-10] MEDS: HYDROGEL DRESSING 90 GM TUBE TP SCH (07:59)
[2019-08-10] MEDS: VIT B CMPLX 3/FA/VIT C/BIOTIN 1 TAB TABLET GT SCH (08:04)
[2019-08-10] MEDS: ASCORBIC ACID 500 MG TABLET GT SCH (08:04)
[2019-08-10] MEDS: HYDROCORTISONE SOD SUCCINATE 100 MG/2 ML VIAL IV SCH ×3 (08:04→17:33)
[2019-08-10] MEDS: ZINC SULFATE 220 MG CAPSULE GT SCH (08:04)
[2019-08-10] MEDS: CHLORHEXIDINE GLUCONATE 15 ML UDC MM SCH ×2 (08:04→21:42)
[2019-08-10] MEDS: PANTOPRAZOLE 40 MG/PACK PACK GT SCH (08:04)
[2019-08-10] MEDS: DOCUSATE SODIUM LIQ 100 MG/10 ML UDC GT SCH ×2 (08:04→17:33)
--- NOTE | 2019-08-10 08:45 | NUR ---
SALES SOLUTIONS ASSOCIATE: , were in room, updated with pt.current condition, VS, Levophed gtt(low dose now), HD today, I/O, GTF, H/H, labs, suction amount, was updated before by charge nurse
--- NOTE | 2019-08-10 08:51 | NUR ---
EMBEDDED SOFTWARE PROGRAMMER: SBP 100-110, MAP over 70, SR, stopped Levophed gtt
--- NOTE | 2019-08-10 12:00 | NUR ---
INTERIOR DESIGN PROGRAM CHAIR: sacral, R.hip wounds debridement done by MICHELLE Antonio, see new order, all wounds care done, dressings are changed
--- NOTE | 2019-08-10 12:30 | NUR ---
ADMINISTRATIVE FELLOW: HD nurse updated with pt.VS, labs
--- NOTE | 2019-08-10 13:00 | NUR ---
PRACTICING DERMATOLOGIST: SBP 85-90 now, SR, getting HD, Levophed gtt restarted
[2019-08-10] MEDS: NEPRO 1,000 ML BOTTLE GT PRN (13:55)
--- NOTE | 2019-08-10 19:15 | NUR ---
AUTOMOTIVE FLEET SUPERVISOR RCD PT W/DX SEPSIS; PT IS AWAKE BUT DOES NOT FOLLOW COMMANDS. NSR ON MONITOR. PORTEX 8 W/VENT SETTINGS AC 12 500 40%; RENDERED ORAL CARE. NEPRO @ 55 ML/HR NO RESIDUAL AT THIS TIME. CONTINUE TO MONITOR.
--- NOTE | 2019-08-10 19:20 | NUR ---
RECEIVED PT ARMANDO'D PORTEX 8 ON [facility] VENT WITH NOTED SETTINGS PER MD ORDER. MOLASSES COLORING OPERATOR DONE. AMBU BAG AT BEDSIDE. VENT ALARMS ON AND AUDIBLE. SUCTIONED DONE PRN. BREATHING TX GIVEN ORDERED. NO ADVERSE REACTIONS NOTED. NO RESPIRATORY DISTRESS NOTED AT THIS TIME. WILL CONTINUE TO MONITOR THE PT T/O SHIFT
[2019-08-10] MEDS: ENOXAPARIN SODIUM 30 MG/0.3 ML DISP.SYRIN SQ SCH (21:42)
[2019-08-10] MEDS: ACETAMINOPHEN 650 MG/20.3 ML UDC GT PRN (23:49)
[2019-08-11] VITALS (29 sets, daily range): BP systolic 84–123; BP diastolic 54–83
--- NOTE | 2019-08-11 | NUR ---
GLASS CUTTER HELPER TEMP 100.1 RENDERED COOLING MEASURES AND ADMINISTERED TYLENOL. CONTINUE TO MONITOR.
[2019-08-11] MEDS: ALBUTEROL FS 2.5 MG/3 ML VIAL.NEB NEB SCH ×4 (01:37→20:11)
[2019-08-11] MEDS: IPRATROPIUM NEB FS 0.5 MG/2.5 ML AMPUL.NEB NEB SCH ×4 (01:37→20:11)
--- NOTE | 2019-08-11 02:00 | NUR ---
BOTANY PROFESSOR RENDERED COMPLETE BED BATH AND ORAL CARE. ECG LEADS REPLACED. PT HAD LARGE LOOSE BROWN BOWEL MOVEMENT. WOUND TREATMENT DONE. PT TOLERATED WELL. CONTINUE TO MONITOR.
[2019-08-11 04:53] LABS: BASOPHILS % (AUTO) 0.1 % (0.0-2.0); HEMATOCRIT 24 % (39-51); HEMOGLOBIN 7.5 g/dL (13.5-17.5); LYMPHOCYTES # (AUTO) 1.8 /CMM (0.8-4.8); LYMPHOCYTES % (AUTO) 10.6 % (20.0-44.0); MEAN CORPUSCULAR HGB CONC 31 g/dl (31.0-36.0); MEAN CORPUSCULAR VOLUME 93 fL (80-96); MONOCYTES # (AUTO) 1.3 /CMM (0.1-1.30); MONOCYTES % (AUTO) 7.8 % (2.0-12.0); NEUTROPHILS # (AUTO) 13.6 /CMM (1.8-8.9); NEUTROPHILS % (AUTO) 81.5 % (43.0-81.0); PLATELET COUNT (AUTO) 353 /CMM (150-450); RED BLOOD CELL COUNT(AUTO) 2.58 MIL/uL (4.5-6.0); WHITE BLOOD COUNT (AUTO) 16.7 K/uL (4.3-11.0)
[2019-08-11 05:07] LABS: CALCIUM, SERUM 10.5 mg/dL (8.5-10.1); POTASSIUM 4.2 mmol/L (3.5-5.1)
[2019-08-11 05:16] LABS: CREATININE 10.7 mg/dL (0.6-1.3)
[2019-08-11] MEDS: BLOOD SUGAR DIAGNOSTIC 1 EACH STRIP IN SCH ×4 (05:51→23:13)
--- NOTE | 2019-08-11 06:25 | NUR ---
MAINTAINER CENTRAL OFFICE PT REMAINED OFF PRESSORS. CONTINUE TO MONITOR.
--- NOTE | 2019-08-11 08:10 | NUR ---
HOG ROOM SUPERVISOR: pt is obtunded, can open eyes by touch, rest, short eyes contact, no tracking, unable to follow commands, no grimacing, contacted. L.site weakness, R.arm activity+, SR, Levophed is off, O2sat. over 94%, suctioned well, no SOB, wounds care done by report, GTF residual WNL, Tmax 100.1 over night, , are in unit/updated, see new orders
[2019-08-11] MEDS: CHLORHEXIDINE GLUCONATE 15 ML UDC MM SCH ×2 (08:39→20:02)
[2019-08-11] MEDS: DAKINS QUARTER STRENGTH (0.125%) 480 ML BOTTLE TOP SCH (08:39)
[2019-08-11] MEDS: ASCORBIC ACID 500 MG TABLET GT SCH (08:39)
[2019-08-11] MEDS: HYDROCORTISONE SOD SUCCINATE 100 MG/2 ML VIAL IV SCH ×3 (08:39→16:47)
[2019-08-11] MEDS: DOCUSATE SODIUM LIQ 100 MG/10 ML UDC GT SCH ×2 (08:39→16:46)
[2019-08-11] MEDS: PANTOPRAZOLE 40 MG/PACK PACK GT SCH (08:39)
[2019-08-11] MEDS: VIT B CMPLX 3/FA/VIT C/BIOTIN 1 TAB TABLET GT SCH (08:39)
[2019-08-11] MEDS: ZINC SULFATE 220 MG CAPSULE GT SCH (08:39)
[2019-08-11] MEDS: HYDROGEL DRESSING 90 GM TUBE TP SCH (08:40)
[2019-08-11] MEDS: SILVER SULFADIAZINE 50 GM JAR TP SCH (08:41)
[2019-08-11] MEDS: NEPRO 1,000 ML BOTTLE GT PRN (11:42)
--- NOTE | 2019-08-11 15:00 | NUR ---
SOAP DRIER OPERATOR: all wounds/PM/Skin care done
--- NOTE | 2019-08-11 15:43 | NUR ---
PERINATAL TECH: pt is transferred to MS, full report was given for LON King included isolation info, standing order
--- NOTE | 2019-08-11 15:45 | NUR ---
MS/RN NOTES RECEIVED REPORT FROM ICU.
--- NOTE | 2019-08-11 18:14 | NUR ---
MS/RN NOTES BS 123MG/DL 0 COVERAGE
--- NOTE | 2019-08-11 18:31 | NUR ---
pt. transferred from 308-1 to 314-1. pt. used same mech vent, connected to emergency outlet with ambubag@ bedside. Addendum: 08/11/19 at 1832 by EDYTA CLEVELAND RT Amended: Links added.
--- NOTE | 2019-08-11 19:05 | NUR ---
locks inspector opening notes Pt is resting in bed comfortably, obtunded, and able to open eyes. Respiration is normal in [facility]. vent. No SOB. No S/S of distress noted. R upperarm midline is clean, intact and SL. R femoral double lumen cath is clean, intact and patent. L subclavian HD cath is clean, intact amd patent. G-tube feeding is clean, intact and running nephro 1.8 vernon at 55 ml/hr with 0 residual. Tele monitor showed SR HR at 88. Safety precautions is maintained. Bed at low position, brakes locked, side rails upX3 and call light is within reach. Will continue to monitor.
--- NOTE | 2019-08-11 19:18 | NUR ---
MS/RN CLOSING NOTES pt is obtunded, can open eyes by touch, rest, short eyes contact, no tracking, unable to follow commands, no grimacing, contacted. L.site weakness, O2sat. over 94%, suctioned well, no SOB, will endorsed to shift production associate.
[2019-08-11] MEDS: ENOXAPARIN SODIUM 30 MG/0.3 ML DISP.SYRIN SQ SCH (20:04)
[2019-08-11] MEDS: INSULIN REGULAR, HUMAN 100 UNIT/ML 3 ML VIAL SQ PRN (23:16)
[2019-08-12] VITALS: BP 101/69
[2019-08-12] MEDS: ALBUTEROL FS 2.5 MG/3 ML VIAL.NEB NEB SCH ×4 (01:59→19:13)
[2019-08-12] MEDS: IPRATROPIUM NEB FS 0.5 MG/2.5 ML AMPUL.NEB NEB SCH ×4 (01:59→19:13)
--- NOTE | 2019-08-12 03:00 | NUR ---
datawarehouse developer notes Ski care and wound care provided as ordered. Pt tolerated activity well. Addendum: 08/12/19 at 0337 by ASHLEY FERNANDEZ RN Skin care
[2019-08-12 04:00] VITALS: BP_SYST 108; BP_SYST 109; BP_DIAS 61; BP_DIAS 69
[2019-08-12] MEDS: BLOOD SUGAR DIAGNOSTIC 1 EACH STRIP IN SCH ×4 (05:08→23:12)
[2019-08-12] MEDS: NEPRO 1,000 ML BOTTLE GT PRN (05:22)
[2019-08-12 06:26] LABS: BASOPHILS % (AUTO) 0.1 % (0.0-2.0); HEMATOCRIT 24 % (39-51); HEMOGLOBIN 7.5 g/dL (13.5-17.5); LYMPHOCYTES % (AUTO) 13.4 % (20.0-44.0); MEAN CORPUSCULAR HGB CONC 32 g/dl (31.0-36.0); MEAN CORPUSCULAR VOLUME 92 fL (80-96); MONOCYTES # (AUTO) 1.1 /CMM (0.1-1.30); NEUTROPHILS % (AUTO) 79.5 % (43.0-81.0); PLATELET COUNT (AUTO) 371 /CMM (150-450); RED BLOOD CELL COUNT(AUTO) 2.59 MIL/uL (4.5-6.0); WHITE BLOOD COUNT (AUTO) 15.1 K/uL (4.3-11.0)
--- NOTE | 2019-08-12 06:43 | NUR ---
printing machine mechanic closing notes Pt is resting in bed comfortably. Respiration is normal in [facility].ventilator. No SOB. No S/S of distress noted. R upperarm midline is clean, intact and SL. R femoral double lumen cath is clean, intact and patent. L subclavian HD cath is clean, intact and patent. G-tube feeding is clean, intact and running nephro 1.8 vernon at 55 ml/hr with 5 ml residual. Tele monitor showed SR HR at 93. Wound care and skin care provided as ordered. Routine meds were given as ordered. Suctioned well. Turned and repositioned Q 2 hr. Safety precautions is maintained. Bed at low position, brakes locked, side rails upX3 and call light is within reach. Will endorse to morning nurse for DENNIS.
[2019-08-12 06:44] LABS: CALCIUM, SERUM 10.2 mg/dL (8.5-10.1); POTASSIUM 3.9 mmol/L (3.5-5.1)
--- NOTE | 2019-08-12 07:02 | NUR ---
financial aid coordinator notes Received a phone call from Bibi negron regarding critical lab: BUN 123, CREATININE 11.5. Will endorse to morning nurse.
[2019-08-12 07:03] LABS: CREATININE 11.5 mg/dL (0.6-1.3)
[2019-08-12 08:00] VITALS: BP 112/65
--- NOTE | 2019-08-12 08:00 | NUR ---
CAUL PULLER OPENING NOTES Received Patient asleep and resting in bed. Obtunded. VS stable with no acute distress. Breathing even and unlabored on trachea and vent with no respiratory distress. No signs and symptoms of pain. Telemonitor in place and patent reading SR with HR-84. ALEX Midline clean, intact, patent and flushing well. Right Femoral Double Lumen clean and intact. Left Chest Subclavian HD Cath clean and intact. Gtube in place and patent with Nephro infusing at 55ml/hr. Safety precautions in place. Bed locked and set to lowest position with side rails x 2 up. All needs rendered at this time. Call light within reach. Will continue to monitor.
--- NOTE | 2019-08-12 08:14 | NUR ---
SUPERVISOR TAN ROOM NOTES Notified Rama GARCIA of critical lab results. BUN-143 Creat-11.5. Per , he will order hemodialysis for today. Otherwise NNO at this time. Patient in stable condition. Will continue to monitor.
[2019-08-12] MEDS: ASCORBIC ACID 500 MG TABLET GT SCH (09:56)
[2019-08-12] MEDS: PANTOPRAZOLE 40 MG/PACK PACK GT SCH (09:56)
[2019-08-12] MEDS: DOCUSATE SODIUM LIQ 100 MG/10 ML UDC GT SCH ×2 (09:56→16:42)
[2019-08-12] MEDS: VIT B CMPLX 3/FA/VIT C/BIOTIN 1 TAB TABLET GT SCH (09:56)
[2019-08-12] MEDS: ZINC SULFATE 220 MG CAPSULE GT SCH (09:58)
[2019-08-12] MEDS: CHLORHEXIDINE GLUCONATE 15 ML UDC MM SCH ×2 (09:58→20:47)
[2019-08-12] MEDS: HYDROCORTISONE SOD SUCCINATE 100 MG/2 ML VIAL IV SCH ×3 (09:58→16:42)
[2019-08-12] MEDS: DAKINS QUARTER STRENGTH (0.125%) 480 ML BOTTLE TOP SCH (10:23)
[2019-08-12] MEDS: SILVER SULFADIAZINE 50 GM JAR TP SCH (10:24)
[2019-08-12] MEDS: HYDROGEL DRESSING 90 GM TUBE TP SCH (10:24)
[2019-08-12 16:00] VITALS: BP 104/67
--- NOTE | 2019-08-12 19:04 | NUR ---
DOWEL POINTER CLOSING NOTES Patient asleep and resting in bed. Obtunded. VS stable with no acute distress. Breathing even and unlabored on trachea and vent with no respiratory distress. No signs and symptoms of pain. Telemonitor in place and patent reading SR with HR-79. ALEX Midline clean, intact, patent and flushing well. Right Femoral Double Lumen clean and intact. Left Chest Subclavian HD Cath clean and intact. Gtube in place and patent with Nephro infusing at 55ml/hr. Safety precautions in place. Bed locked and set to lowest position with side rails x 2 up. All needs rendered at this time. Call light within reach. Will endorse plan of care to oncoming shift.
--- NOTE | 2019-08-12 19:10 | NUR ---
dry cleaning supervisor opening notes Received Pt from morning nurse. Pt is resting in bed comfortably, obtunded, and able to open eyes. Respiration is normal in [facility]. vent. No SOB. No S/S of distress noted. R upperarm midline is clean, intact and SL. R femoral double lumen cath is clean, intact and patent. L subclavian HD cath is clean, intact and patent. G-tube feeding is intact, patent and running nephro 1.8 veronn at 55 ml/hr. Tele monitor showed SR HR at 76. Safety precautions is maintained. Contact precautions is maintained. Bed at low position, brakes locked, side rails upX3 and call light is within reach. Will continue to monitor.
[2019-08-12 20:00] VITALS: BP 130/79
[2019-08-12] MEDS: ENOXAPARIN SODIUM 30 MG/0.3 ML DISP.SYRIN SQ SCH (20:51)
[2019-08-13] VITALS: BP 124/82
[2019-08-13] MEDS: ALBUTEROL FS 2.5 MG/3 ML VIAL.NEB NEB SCH ×3 (00:51→14:30)
[2019-08-13] MEDS: IPRATROPIUM NEB FS 0.5 MG/2.5 ML AMPUL.NEB NEB SCH ×3 (00:52→14:30)
[2019-08-13 04:00] VITALS: BP 138/84
[2019-08-13] MEDS: NEPRO 1,000 ML BOTTLE GT PRN (05:17)
[2019-08-13] MEDS: BLOOD SUGAR DIAGNOSTIC 1 EACH STRIP IN SCH ×3 (05:36→17:45)
--- NOTE | 2019-08-13 07:00 | NUR ---
cash grain farmer closing notes Pt is resting in bed comfortably. Respiration is normal in [facility].ventilator. No SOB. No S/S of distress noted. VS is table. R upperarm midline is clean, intact and SL. R femoral double lumen cath is clean, intact and patent. L subclavian HD cath is clean, intact and patent. G-tube feeding is clean, intact and running nephro 1.8 vernon at 55 ml/hr. Tele monitor showed SR HR at 96. Wound care and skin care provided as ordered. Routine meds were given as ordered. Suctioned well. Turned and repositioned Q 2 hr. Safety precautions is maintained. Bed at low position, brakes locked, side rails upX3 and call light is within reach. Will endorse to morning nurse for DENNIS.
[2019-08-13 07:55] VITALS: BP 127/81
--- NOTE | 2019-08-13 08:00 | NUR ---
SHOP FIRER/FIREMAN OPENING NOTES RECEIVED PT IN BED, ASLEEP. RESTING COMFORTABLY IN BED. NO CARDIAC OR RESPIRATORY DISTRESS NOTED. RESP EVEN AND UNLABORED. PT O MECH VENT. FI02 40%, OPORTEX 8, PEEP 0.0, VENT SETTING 500ML. O2 SAT AT 99%. ON CARDIAC TELE MONITORING. WITH NSR. PT IS ON HEMODIALYSIS Q T--S. LAST DIALYSIS DONE WAS YESTERDAY PER NIGHT NURSE. PT ON GTUBE FEEDING ON NEPHRO 1.78 AT 55ML/HR. GTUBE INTACT AND PATENT. FLUSHING WELL. NO GASTRIC RESIDUAL NOTED. PICC LINE NOTED ON R UPPER ARM AND L FEMORAL WITH A L SUBCLAVIAN A HD PORT. NO S/S OF INFECTION ON CENTRAL LINES NOTED. NO BLEEDING NOTED. DRESSING INTACT. PICC LINES ARE PATENT AND FLUSHING WELL. SAFETY PRECAUTIONS IN PLACE. BED LOCKED AND IN LOW POSITION. CALL LIGHT WITHIN REACH. SIDE RAILS UP. WILL COPNTINUE TO MONITOR.
[2019-08-13] MEDS: CHLORHEXIDINE GLUCONATE 15 ML UDC MM SCH (08:10)
[2019-08-13] MEDS: ASCORBIC ACID 500 MG TABLET GT SCH (08:11)
[2019-08-13] MEDS: ZINC SULFATE 220 MG CAPSULE GT SCH (08:11)
[2019-08-13] MEDS: PANTOPRAZOLE 40 MG/PACK PACK GT SCH (08:11)
[2019-08-13] MEDS: HYDROCORTISONE SOD SUCCINATE 100 MG/2 ML VIAL IV SCH (08:11)
[2019-08-13] MEDS: VIT B CMPLX 3/FA/VIT C/BIOTIN 1 TAB TABLET GT SCH (08:11)
[2019-08-13] MEDS: DOCUSATE SODIUM LIQ 100 MG/10 ML UDC GT SCH ×2 (08:11→16:31)
[2019-08-13] MEDS: DAKINS QUARTER STRENGTH (0.125%) 480 ML BOTTLE TOP SCH (08:12)
[2019-08-13] MEDS: SILVER SULFADIAZINE 50 GM JAR TP SCH (08:14)
[2019-08-13] MEDS: HYDROGEL DRESSING 90 GM TUBE TP SCH (08:14)
[2019-08-13 08:19] LABS: BASOPHILS % (AUTO) 0.2 % (0.0-2.0); EOSINOPHILS % (AUTO) 0.3 % (0.0-6.0); HEMATOCRIT 25 % (39-51); HEMOGLOBIN 7.7 g/dL (13.5-17.5); LYMPHOCYTES # (AUTO) 2.3 /CMM (0.8-4.8); LYMPHOCYTES % (AUTO) 15.3 % (20.0-44.0); MEAN CORPUSCULAR HGB CONC 31 g/dl (31.0-36.0); MEAN CORPUSCULAR VOLUME 93 fL (80-96); MONOCYTES # (AUTO) 1.5 /CMM (0.1-1.30); MONOCYTES % (AUTO) 10.1 % (2.0-12.0); NEUTROPHILS # (AUTO) 11.2 /CMM (1.8-8.9); NEUTROPHILS % (AUTO) 74.1 % (43.0-81.0); PLATELET COUNT (AUTO) 363 /CMM (150-450); RED BLOOD CELL COUNT(AUTO) 2.65 MIL/uL (4.5-6.0); WHITE BLOOD COUNT (AUTO) 15.1 K/uL (4.3-11.0)
[2019-08-13 08:35] LABS: CALCIUM, SERUM 10.3 mg/dL (8.5-10.1); POTASSIUM 3.8 mmol/L (3.5-5.1)
[2019-08-13 08:39] LABS: CREATININE 8.8 mg/dL (0.6-1.3)
--- NOTE | 2019-08-13 12:30 | NUR ---
REPORT GIVEN TO SNF RN REPORT GIVEN TO SNF RN SAAD.
[2019-08-13] MEDS ORDERED: HYDROCORTISONE SOD SUCCINATE 100 MG/2 ML VIAL IV SCH ×2 (16:00→17:00)
--- NOTE | 2019-08-13 17:48 | NUR ---
PENDING D/C AMBULANCE CALLED US AND STATED THAT THEY ARE RUNNING LATE.
--- NOTE | 2019-08-13 18:23 | NUR ---
D/C TO APRIL CAMPUZANO PT PICKED UP BY 2 PLACEMENT SPECIALIST AND AN RT IN STABLE CONDITION. R UPPER ARM PICC AND R FEMORAL PICC REMOVED. PT WILL NOT BE ON ANY IVS AT THE SNF/SUBACUTE. R FEMORAL 40CM IN LENGTH. R BRACHIAL. 14 CM IN LENTH REMOVED. PRESSURE DRESSING APPLIED. PT LEFT IN STABLE CONDITION. REPORT WAS ALREADY GIVEN TO SNF TO SAAD FORREST. WOUND TX WERE DONE. REPORT WAS ALSO GIVEN TO EMT AND RT.
[2019-08-13] MEDS ORDERED: HEPARIN SODIUM, PORCINE 5000 UNITS/1 ML VIAL SQ SCH (21:00)
== END 2019-08-13 18:30 | DRG 710 ==
LOC: ER 14:36 → ICU 18:42 → TELE 08-11 16:06
PROVIDERS: ADMIT Internal Medicine; ATTEND Internal Medicine
PROC: 5A1955Z Respiratory Ventilation, Greater than 96 Consecutive Hours (ICD-10-PCS; principal; 2019-08-07)
PROC: 06H033Z Insertion of Infusion Device into Inferior Vena Cava, Percutaneous Approach (ICD-10-PCS; principal; 2019-08-07)
PROC: 05HY33Z Insertion of Infusion Device into Upper Vein, Percutaneous Approach (ICD-10-PCS; principal; 2019-08-07)
PROC: B549ZZA Ultrasonography of Inferior Vena Cava, Guidance (ICD-10-PCS; principal; 2019-08-07)
PROC: 30233N1 Transfusion of Nonautologous Red Blood Cells into Peripheral Vein, Percutaneous Approach (ICD-10-PCS; 2019-08-08)
PROC: 5A1D70Z Performance of Urinary Filtration, Intermittent, Less than 6 Hours Per Day (ICD-10-PCS; 2019-08-08)
PROC: 0LBV0ZZ Excision of Right Foot Tendon, Open Approach (ICD-10-PCS; 2019-08-09)
PROC: 0QBL0ZZ Excision of Right Tarsal, Open Approach (ICD-10-PCS; 2019-08-09)
PROC: 0QB10ZZ Excision of Sacrum, Open Approach (ICD-10-PCS; 2019-08-10)
PROC: 0KBP0ZZ Excision of Left Hip Muscle, Open Approach (ICD-10-PCS; 2019-08-10)
DX: A41.9 Sepsis, unspecified organism (principal); J96.21 Acute and chronic respiratory failure with hypoxia; Z99.11 Dependence on respirator [ventilator] status; E43 Unspecified severe protein-calorie malnutrition; G93.41 Metabolic encephalopathy; R65.21 Severe sepsis with septic shock; R57.1 Hypovolemic shock; L89.154 Pressure ulcer of sacral region, stage 4; D68.69 Other thrombophilia; Z93.0 Tracheostomy status; L89.324 Pressure ulcer of left buttock, stage 4; E11.22 Type 2 diabetes mellitus with diabetic chronic kidney disease; E83.52 Hypercalcemia; N18.6 End stage renal disease; F03.90 Unspecified dementia, unspecified severity, without behavioral disturbance, psychotic disturbance, mood disturbance, and anxiety; R53.2 Functional quadriplegia; D63.8 Anemia in other chronic diseases classified elsewhere; I69.354 Hemiplegia and hemiparesis following cerebral infarction affecting left non-dominant side; Z99.2 Dependence on renal dialysis; Z79.4 Long term (current) use of insulin; Z93.1 Gastrostomy status; E88.09 Other disorders of plasma-protein metabolism, not elsewhere classified; Z68.25 Body mass index [BMI] 25.0-25.9, adult; M24.562 Contracture, left knee; M24.561 Contracture, right knee; M24.542 Contracture, left hand; M24.541 Contracture, right hand; S31.30XA Unspecified open wound of scrotum and testes, initial encounter; S31.819A Unspecified open wound of right buttock, initial encounter; X58.XXXA Exposure to other specified factors, initial encounter; Y93.9 Activity, unspecified; Y92.129 Unspecified place in nursing home as the place of occurrence of the external cause; E11.621 Type 2 diabetes mellitus with foot ulcer; L97.419 Non-pressure chronic ulcer of right heel and midfoot with unspecified severity; L97.429 Non-pressure chronic ulcer of left heel and midfoot with unspecified severity; E11.51 Type 2 diabetes mellitus with diabetic peripheral angiopathy without gangrene; I12.0 Hypertensive chronic kidney disease with stage 5 chronic kidney disease or end stage renal disease; R13.10 Dysphagia, unspecified
CPT/HCPCS: 31720; 36410; 36415; 36569; 36600; 71045-TC; 74018; 80048-TC; 80076-TC; 81000-TC; 82272-TC; 82533; 82803-TC; 82962-TC; 83605-TC; 83735-TC; 84100-TC; 84484-TC; 85025-TC; 85730-TC; 86706; 86850-TC; 86921-TC; 87040-TC; 87081-TC; 87086-TC; 87340; 90935-TC; 94003-TC; 94762-TC; A4217; A4623; A6248; A6253; A6403; C1751; G0378; J1650; J1720; J1815; J2543; J3370; J3490; J7030; J7040; J7042; J7050; J7060; P9016-BL

== ENCOUNTER 2019-08-21 15:55 | Inpatient (IN) | payer MEDICAID ==
[~2019-08-21] VITALS: Ht 165.1 cm; Wt 77.1 kg
[~2019-08-21 15:55] MED LIST changes: -ARGI1POW13 GT; -Hydrogel Dressing TP; -ONDA4TAB5 GT; -SODI473S8 TOP; -SULF1TAB48 GT; -Silver Sulfadiazine Cream TP; -TRAM50TA2 GT; +ZINC1CAP2 GT; -ZINC1CAP3 GT
--- NOTE | 2019-08-21 16:23 | NUR ---
PT BIB PA FROM [facility], C/O LOW BP AFTER DIALYSIS, PT IS AAOX0, ON VENT VIA TRACH, HOOKED TO NUT SIFTER, KEPT RESTED AND COMFORTABLE, WILL CONTINUE TO MONITOR.
--- NOTE | 2019-08-21 16:30 | NUR ---
RT REPORT, PT. 59 Y OLD MALE REC. IN ER @ 1624 PT. AWAKE, BUT NONE VERBAL CC LOW B/P PT. TRACH'D PORTEX # 8 ON PLACED ON VENT WITH NOTED SETTINGS, ALARMS ARE SET AND FUNCTIONAL, B/S BILATERALLY RALES SUX'S FOR SMALL AMT CLEAR THIN SECRETIONS, BUSINESS UNIT LEADER DONE NO DISTRESS EQUAL CHEST RISE NOTED, AMBU BAG AT THE BEDSIDE. VENT PLUGGED INTO RED OUTLET. CONTINUE TO MONITOR CLOSELY. Addendum: 08/21/19 at 1641 by SHIRLEY REID RT Amended: Links added.
--- NOTE | 2019-08-21 16:30 | NUR ---
PT SEEN AND EXAMINED BY .
--- NOTE | 2019-08-21 16:50 | NUR ---
ER PHLEB AT BEDSIDE FOR BLOOD DRAW.
--- NOTE | 2019-08-21 16:57 | NUR ---
MATERIALS BUYER AT BEDSIDE FOR XRAY.
[2019-08-21 16:58] LABS: BASOPHILS # (AUTO) 0.1 /CMM (0.0-0.2); BASOPHILS % (AUTO) 0.8 % (0.0-2.0); EOSINOPHILS % (AUTO) 1.7 % (0.0-6.0); HEMATOCRIT 30 % (39-51); HEMOGLOBIN 9.5 g/dL (13.5-17.5); LYMPHOCYTES # (AUTO) 1.2 /CMM (0.8-4.8); LYMPHOCYTES % (AUTO) 8.4 % (20.0-44.0); MEAN CORPUSCULAR HGB CONC 32 g/dl (31.0-36.0); MEAN CORPUSCULAR VOLUME 92 fL (80-96); MONOCYTES # (AUTO) 1.8 /CMM (0.1-1.30); NEUTROPHILS # (AUTO) 10.9 /CMM (1.8-8.9); NEUTROPHILS % (AUTO) 76.1 % (43.0-81.0); PLATELET COUNT (AUTO) 278 /CMM (150-450); RED BLOOD CELL COUNT(AUTO) 3.26 MIL/uL (4.5-6.0); WHITE BLOOD COUNT (AUTO) 14.3 K/uL (4.3-11.0)
--- NOTE | 2019-08-21 17:00 | NUR ---
UNABLE TO ESTABLISHED, IV LINE, AWARE. PER PT NEEDS PICC LINE.
[2019-08-21 17:03] LABS: CALCIUM, SERUM 8.3 mg/dL (8.5-10.1); CARBON DIOXIDE 31 mmol/L (21-32); CHLORIDE 96 mmol/L (98-107); CREATININE 3.4 mg/dL (0.6-1.3); GLUCOSE 100 mg/dL (74-106); POTASSIUM 3.4 mmol/L (3.5-5.1); SODIUM SERUM 135 mmol/L (136-145); UREA NITROGEN, BLOOD 25 mg/dL (7-18)
[2019-08-21 17:16] LABS: ALANINE AMINOTRANSFERASE 45 U/L (12-78); ALBUMIN 2.3 g/dL (3.4-5.0); ALKALINE PHOSPHATASE 107 U/L (46-116); ASPARTATE AMINOTRANSFERASE 52 U/L (15-37); BILIRUBIN,DIRECT 0.1 mg/dL (0.0-0.2); BILIRUBIN,TOTAL 0.6 mg/dL (0.2-1.0); TOTAL PROTEIN, SERUM 7.2 g/dL (6.4-8.2)
[2019-08-21] MEDS ORDERED: MULT-447 GT (17:28)
[2019-08-21] MEDS ORDERED: ARGI1PAC GT (17:28)
--- NOTE | 2019-08-21 18:10 | NUR ---
PICC LINE NURSE AT BEDSIDE FOR EVAL
--- NOTE | 2019-08-21 19:13 | NUR ---
REPORT GIVEN TO LON TRAN FOR DENNIS.
[2019-08-21 19:52] LABS: APPEARANCE,URINE TURBID (CLEAR); COLOR,URINE YELLOW (YELLOW); LEUKOCYTE ESTERASE ,URINE 3+ (NEGATIVE)
[2019-08-21 19:53] LABS: NITRITE, URINE NEGATIVE (NEGATIVE); UGLUCOSE NEGATIVE (NEGATIVE); UROBILINOGEN,URINE 0.2 EU/dL (0.2)
[2019-08-21 19:54] LABS: BILIRUBIN,URINE SMALL (NEGATIVE); KETONES,URINE NEGATIVE (NEGATIVE); PH,URINE 7.5 (5.0-8.0)
[2019-08-21 19:55] LABS: BLOOD, URINE 3+ Ery/uL (NEGATIVE); PROTEIN,URINE 3+ mg/dl (NEGATIVE)
[2019-08-21 20:02] LABS: BACTERIA,URINE 2+ /HPF (None Seen); MUCUS,URINE Many /LPF (None Seen); RBC,URINE TOO NUMEROUS TO COUN /HPF (0-2); SQUAMOUS EPITHELIAL CELL,UR None Seen /HPF (None Seen); WBC,URINE TOO NUMEROUS TO COUN /HPF (0-3)
[2019-08-21] MEDS ORDERED: MEROPENEM 500 MG in IV NS 0.9% 50 ML IV ONE (20:30)
--- NOTE | 2019-08-21 20:31 | NUR ---
BED ASSIGNMENT 322-2
[2019-08-21] MEDS ORDERED: MEROPENEM 500 MG VIAL IV ONE (20:32)
--- NOTE | 2019-08-21 21:10 | NUR ---
REPORT GIVEN TO EHSAN FORREST FOR DENNIS.
[2019-08-21 21:20] VITALS: BP 101/68
--- NOTE | 2019-08-21 21:20 | NUR ---
DAMPPROOFER ADMISSION OPENING NOTES RECEIVED PATIENT FROM ER WITH RT PRESENT, SAFELY TRANSFERRED TO BED, MECHANICAL VENTILATOR DONE BY RT ORDERED, PLUGGED INTO RED EMERGENCY PLUG , AMBU BAG AT BEDSIDE, ALARMS AUDILE, SUCTION EQUIPMENT IN PLACE. PATIENT OBTUNDED, EYES OPEN. TRACH IN PLACE WITH NECK COLLAR, DRESSING CHANGED, CONTINUOUS PULSE OX AT BEDSIDE O2 SAT WNL. PLACED ON JIRA DEVELOPER SR 67. GTUBE IN PLACE. NO RESIDUALS, AUSCULTATED GTUBE GURGLING SOUND AUDIBLE. DRESSING CHANGED, MULTIPLE PRESSURE ULCERS NOTED, ALL SITES CLEANSED AND COVERED WITH NEW DRESSING, PENDING WOUND CARE CONSULT, VILLARREAL CATHETER INTACT URINE YELLOW/PITO COLOR, HEAD OF BED ELEVATED FOR ASPIRATION PRECAUTIONS, LEFT CHEST HD SITE, DRESSING IS CLEAN AND INTACT, RIGHT FEMORAL PICC LINE CLEAN DRY AND INTACT. BELONGINGS LIST DONE, ALL NEEDS ATTENDED WILL CONTINUE TO MONITOR AND FOLLOW MD ORDERS, AT THIS TIME REMAINS COMFORTABLE.
--- NOTE | 2019-08-21 22:25 | NUR ---
pattern weaver notes called and spoke to dr. clemente for admitting orders. per md will put input orders into system.will await.
[2019-08-21] MEDS ORDERED: MAG HYDROX/AL HYDROX/SIMETH 30 ML UDC PO PRN (23:00)
[2019-08-21] MEDS ORDERED: ONDANSETRON HCL/PF 4 MG/2 ML VIAL IVP PRN (23:00)
[2019-08-21] MEDS ORDERED: NEPRO VAN 237 ML CAN GT SCH (23:00)
[2019-08-21] MEDS ORDERED: HYDROCODONE/APAP 5/325MG 1 EACH TABLET PO PRN (23:00)
[2019-08-21] MEDS ORDERED: Z GUARD REMEDY 2 OZ OINT TP PRN (23:00)
[2019-08-21] MEDS ORDERED: Medication Not On Formulary EA (Ipratropium/Albuterol Sulfate (Duoneb 2.5-0.5 Mg/3 Ml So IH PRN (23:00)
[2019-08-21] MEDS ORDERED: MAGNESIUM HYDROXIDE 30 ML UDC PO PRN (23:00)
[2019-08-21] MEDS ORDERED: BISACODYL SUPP (10 MG) 10 MG/SUPP.RECT SUPP.RECT RC PRN (23:00)
[2019-08-21] MEDS ORDERED: ZOLPIDEM TARTRATE 5 MG TABLET PO PRN (23:00)
--- NOTE | 2019-08-21 23:20 | NUR ---
RT NOTES PT RECEIVED TRACHED ON [facility] VENT ON CHARTED SETTINGS. NO SIGNS OF DISTRESS. AIRWAY PATENT AND SECURED. PROGRAM OR PROJECT ADMINISTRATOR DONE. PT SUCTIONED. ALARMS SET AND AUDIBLE. AMBUBAG AND SPARE TRACH AT BEDSIDE. VENT CONNECTED TO RED OUTLET. WILL CONT TO MONITOR. Addendum: 08/22/19 at 0554 by KATIE ALEXANDER RT Amended: Links added.
[2019-08-21] MEDS ORDERED: VANCOMYCIN 1.5 GM in IV D5W 500ml IV ONE (23:30)
[2019-08-21] MEDS ORDERED: ALBUTEROL FS 2.5 MG/3 ML VIAL.NEB NEB PRN (23:30)
[2019-08-21] MEDS ORDERED: IPRATROPIUM NEB FS 0.5 MG/2.5 ML AMPUL.NEB NEB PRN (23:30)
[2019-08-22] VITALS (7 sets, daily range): BP systolic 94–140; BP diastolic 59–75
[2019-08-22] MEDS ORDERED: Medication Not On Formulary EA (Ipratropium/Albuterol Sulfate (Duoneb 2.5-0.5 Mg/3 Ml So IH SCH
[2019-08-22] MEDS ORDERED: NEPRO 1,000 ML BOTTLE GT SCH (00:30)
[2019-08-22] MEDS ORDERED: VANCOMYCIN 500 MG VIAL ONE (00:39)
[2019-08-22] MEDS ORDERED: VANCOMYCIN 1 GM VIAL ONE (00:57)
[2019-08-22] MEDS: ALBUTEROL FS 2.5 MG/3 ML VIAL.NEB NEB SCH ×4 (02:00→19:52)
[2019-08-22] MEDS: IPRATROPIUM NEB FS 0.5 MG/2.5 ML AMPUL.NEB NEB SCH ×4 (02:00→19:52)
--- NOTE | 2019-08-22 06:43 | NUR ---
HIGH SCHOOL PROFESSIONAL CLOSING NOTES PATIENT IN BED MECHANICAL VENTILATOR ORDERED, SUCTION EQUIPMENT IN PLACE. PATIENT OBTUNDED, EYES OPEN. TRACH IN PLACE WITH NECK COLLAR, DRESSING REMAINS CLEAN, CONTINUOUS PULSE OX AT BEDSIDE O2 SAT WNL 100%. ON SEAFOOD SERVICE TEAM MEMBER SR 95. GTUBE IN PLACE. NO RESIDUALS, TOLERATING FEEDING WELL MULTIPLE PRESSURE ULCERS NOTED, ALL SITES CLEANSED AND COVERED WITH NEW DRESSING, PENDING WOUND CARE CONSULT, VILLARREAL CATHETER INTACT URINE YELLOW/PITO COLOR, TOTAL OUTPUT 10ML,HEAD OF BED ELEVATED FOR ASPIRATION PRECAUTIONS, LEFT CHEST HD SITE, DRESSING IS CLEAN AND INTACT, RIGHT FEMORAL PICC LINE CLEAN DRY AND INTACT. ALL NEEDS ATTENDED AT THIS TIME. REMAINS CLEAN , REPOSITIONING DONE Q2HR TO OFFLOAD AFFECTED SITES. LOW AIR LOSS MATTRESS ORDER PENDING, CENTRAL SUPPLY AWARE PER STAFF REQUEST WAS MADE MOST LIKELY TO DELIVER THIS AM.NO FURTHER CHANGES NOTED SINCE ADMISSION, ALL DUE MEDS GIVEN NO ADVERSE REACTIONS, AT THIS TIME REMAINS COMFORTABLE WILL ENDORSE TO NEXT SHIFT FOR CONTINUITY OF CARE.REMAINS STABLE
[2019-08-22 07:09] LABS: BASOPHILS % (AUTO) 0.4 % (0.0-2.0); EOSINOPHILS % (AUTO) 1.7 % (0.0-6.0); HEMATOCRIT 27 % (39-51); HEMOGLOBIN 8.5 g/dL (13.5-17.5); LYMPHOCYTES # (AUTO) 1.1 /CMM (0.8-4.8); MEAN CORPUSCULAR HGB CONC 31 g/dl (31.0-36.0); MEAN CORPUSCULAR VOLUME 92 fL (80-96); MONOCYTES # (AUTO) 1.7 /CMM (0.1-1.30); MONOCYTES % (AUTO) 13.4 % (2.0-12.0); NEUTROPHILS # (AUTO) 9.4 /CMM (1.8-8.9); NEUTROPHILS % (AUTO) 75.5 % (43.0-81.0); PLATELET COUNT (AUTO) 333 /CMM (150-450); RED BLOOD CELL COUNT(AUTO) 2.94 MIL/uL (4.5-6.0); WHITE BLOOD COUNT (AUTO) 12.4 K/uL (4.3-11.0)
--- NOTE | 2019-08-22 07:22 | NUR ---
STUDENT ADMISSIONS CLERK OPENING NOTES RECEIVED PT IN BED IN NO ACUTE SIGNS OF DISTRESS. HOB ELEVATED. OBTUNDED AND EYES OPEN. PT WITH TRACH CONNECTED TO VENT AT PRESCRIBED PARAMETERS, TOLERATING SETTINGS WELL WITH NO SOB NOTED, SP02 100% AT THIS TIME. ON TELE MONITOR WITH CURRENT READING OF SR WITH OCCASIONAL PVC'S AND HR ON THE 90'S. TRIPLE LUMEN RIGHT FEMORAL PICC LINE C/D/I. G-TUBE IN PLACE WITH FEEDING OF NEPRO @ 50 ML/HR IN PROGRESS, TOLERATING WELL. ASPIRATION PRECAUTIONS MAINTAINED. VILLARREAL CATHETER IN PLACE AND NOTED WITH SMALL AMOUNT OF CLEAR YELLOWISH URINE. SAFETY MEASURES IN PLACE: BED IN LOWEST LOCKED POSITION WITH SR UP X3. CALL LIGHT WITHIN REACH. WILL CONTINUE TO MONITOR.
[2019-08-22] MEDS: ZINC SULFATE 220 MG CAPSULE GT SCH (08:25)
[2019-08-22] MEDS: DOCUSATE SODIUM 100 MG CAPSULE PO SCH ×2 (08:25→16:44)
[2019-08-22] MEDS: VIT B CMPLX 3/FA/VIT C/BIOTIN 1 TAB TABLET GT SCH (08:25)
[2019-08-22] MEDS: PANTOPRAZOLE 40 MG TABLET.DR PO SCH ×2 (08:25→16:44)
[2019-08-22] MEDS: CHLORHEXIDINE GLUCONATE 15 ML UDC MM SCH ×2 (08:25→20:55)
[2019-08-22] MEDS ORDERED: VANCOMYCIN 500 MG in IV D5W 100 ML IV PRN (08:30)
[2019-08-22 08:32] LABS: CREATININE 4.7 mg/dL (0.6-1.3); MAGNESIUM 2.5 mg/dL (1.8-2.4); PHOSPHORUS 3.6 mg/dL (2.5-4.9); POTASSIUM 2.9 mmol/L (3.5-5.1)
[2019-08-22] MEDS ORDERED: FEE PK DOSING 1 MIN EA MC ONE (08:34)
[2019-08-22] MEDS ORDERED: MEROPENEM 500 MG in IV NS 0.9% 50 ML IV SCH (09:00)
[2019-08-22] MEDS: BLOOD SUGAR DIAGNOSTIC 1 EACH STRIP IN SCH ×2 (09:19→20:55)
[2019-08-22] MEDS: MEROPENEM 500 MG in IV NS 0.9% 50 ML IV SCH ×2 (09:22→20:55)
[2019-08-22 09:48] LABS: ABG BASE EXCESS 6.5 mmol/L; ABG OXYGEN SATURATION 95.3 % (92.0-98.5); ABG PCO2 38.5 mmHg (35.0-45.0); ABG PH 7.509 (7.350-7.450); ABG PO2 77.9 mmHg (75.0-100.0); COHb 0.5 % (0.5-1.5); MetHb 0.6 % (0.0-1.5); O2Hb 94.3 % (94.0-97.0); PEEP,BG 5 cm H2O; SITE, ABG Right Radial; VT, ABG 550 mL
--- NOTE | 2019-08-22 11:20 | NUR ---
RN NOTES ABG RESULTS SHOWS ELEVATED PH 7.509 [address] PEACOCK MADE AWARE WITH ORDER TO DECREASE TIDAL VOLUME TO 500. RT CAME AND LOWER DOWN TV TO 500 IN THE VENT MACHINE. WILL CONTINUE TO MONITOR
[2019-08-22] MEDS ORDERED: SILVER NITRATE APPLICATOR 1 EA BOX TP ONE (11:30)
[2019-08-22] MEDS ORDERED: LIDOCAINE 1%-EPI 1:100,000 20 ML VIAL TP ONE (11:30)
[2019-08-22] MEDS ORDERED: SILVER SULFADIAZINE 50 GM JAR TP SCH (12:23)
--- NOTE | 2019-08-22 12:23 | NUR ---
RN NOTES PT ON ONGOING HEMODIALYSIS RIGHT NOW. PRE-HD V/S: BP 106/63, HR 63, R 18 AND T 99F. WILL CONTINUE TO MONITOR
--- NOTE | 2019-08-22 12:25 | NUR ---
RN NOTES PT SEEN AND EVALUATED FOR HIS WOUNDS BY GRETCHEN LEE AND PODIATRY CONSULT BY DR LAM. SERIAL DEBRIDEMENT OF SACRUM, LEFT BUTTOCK AND B/L FOOT WOUNDS. CALLED DAUGHTER MAC MCNEIL AT [facility] # [phone] AND OBTAINED CONSENTS. CONSENTS SIGNED AND FILED IN PT'S CHART. WILL CONTINUE TO MONITOR.
--- NOTE | 2019-08-22 13:41 | NUR ---
RN NOTES HEMO-DIALYSIS JUST FINISHED WITH OUTPUT OF 1000ML. S/P HD V/S : BP 104/63, P 99. R 18 AND T 98.7F. DRESSING TO LEFT UPPER CHEST HD CATH C/D/I. WILL CONTINUE TO MONITOR.
[2019-08-22] MEDS: DAKINS QUARTER STRENGTH (0.125%) 480 ML BOTTLE TOP SCH ×2 (14:59→15:00)
[2019-08-22] MEDS: HYDROGEL DRESSING 90 GM TUBE TP SCH (15:00)
--- NOTE | 2019-08-22 15:32 | NUR ---
RN NOTES CALLED DR ART OFFICE, SPOKE TO SENIOR STAFF PSYCHOLOGIST AND LEFT MESSAGE REGARDING PT'S LOW LEVEL POTASSIUM 2.9 TODAY. AWAITING FOR RESPONSE.
--- NOTE | 2019-08-22 17:10 | NUR ---
RT NOTE Pt received trach'd and on [facility] vent. Vent is plugged into red outlet w [facility] @ [facility]. Alarms are set and audible. Pt is stable. No resp distress noted t/o shift. Addendum: 08/22/19 at 1823 by DORITA CROSS RT Amended: Links added.
--- NOTE | 2019-08-22 18:47 | NUR ---
RECONNAISSANCE CREWMEMBER CLOSING NOTES PT IN BED LYING AT MODERATE HIGH BACKREST POSITION,.OBTUNDED AND EYES OPEN. PT WITH TRACH CONNECTED TO VENT AT PRESCRIBED PARAMETERS, TOLERATING SETTINGS WELL WITH NO SOB NOTED . ON TELE MONITOR WITH CURRENT READING OF SR WITH OCCASIONAL PVC'S AND HR OF 100-110 AT THIS TIME. TRIPLE LUMEN RIGHT FEMORAL PICC LINE IN PLACE WITH DRESSING C/D/I. G-TUBE IN PLACE WITH FEEDING OF NEPRO @ 50 ML/HR IN PROGRESS, TOLERATING WELL. ASPIRATION PRECAUTIONS MAINTAINED. VILLARREAL CATHETER IN PLACE AND NOTED WITH 10 ML DARK YELLOWISH URINE OUTPUT THIS SHIFT. VILLARREAL CARE DONE. PT TURNED AND REPOSITIONED Q 2HRS AND PRN. WOUND TREATMENTS DONE ORDERED., ALL DRESSINGS C/D/I. SAFETY MEASURES IN PLACE: BED IN LOWEST LOCKED POSITION WITH SR UP X3. CALL LIGHT WITHIN REACH. ALL NEEDS AND CARE PROVIDED WELL. WILL ENDORSE TO CREDIT COLLECTIONS ANALYST NURSE FOR DENNIS.
--- NOTE | 2019-08-22 19:53 | NUR ---
RT NOTE PT RECEIVED IN STABLE CONDITION ON MECHANICAL VENT. PATIENT IS TOLERATING CURRENT ORDERED SETTINGS. NO SIGNS OF RESPIRATORY DISTRESS NOTED. TRACH IS PATIENT AND SECURE. ALARMS ARE SET AND AUDIBLE. EMERGENCY EQUIPMENT AT BEDSIDE. WILL CONTINUE TO MONITOR. Addendum: 08/22/19 at 2015 by SIERRA LIZAMA RT Amended: Links added.
[2019-08-22] MEDS: ACETAMINOPHEN 325 MG TABLET PO PRN (20:55)
[2019-08-23] VITALS: BP 118/76
[2019-08-23] MEDS: ALBUTEROL FS 2.5 MG/3 ML VIAL.NEB NEB SCH ×4 (00:33→19:35)
[2019-08-23] MEDS: IPRATROPIUM NEB FS 0.5 MG/2.5 ML AMPUL.NEB NEB SCH ×4 (00:33→19:35)
[2019-08-23 04:00] VITALS: BP 135/59
[2019-08-23] MEDS: NEPRO 1,000 ML BOTTLE GT SCH (04:51)
--- NOTE | 2019-08-23 06:16 | NUR ---
NIGHT ORDER SELECTOR NOTES AWAKE & ALERT. NON VERBAL WITH SAME VENT SETTINGS. NOT IN ANY DISTRESS. NO SOB NOTED. NO S/SX OF ANY PAIN OR DISCOMFORT AT THIS TIME. ON TELE ST @ 107 WITH IV-HL PATENT & INTACT. WITH GTF INFUSING WELL. AM CARE DONE. MONITORED ACCORDINGLY. CALL LIGHT WITHIN REACH. BED IN LOWEST POSITION. SR UP X 3 WITH BED ALARM ON FOR SAFETY. WILL ENDORSE TO NEXT SHIFT.
--- NOTE | 2019-08-23 06:26 | NUR ---
WOUND CARE CONSULT WOUND CARE RECEIVED CONSULT FOR MULTIPLE PRESSURE ULCERS. WOUND CARE WILL DEFER CONSULT AND TREATMENT PLANS TO PLASTIC SURGICAL TEAM INCLUDING DPGisela LAM WHO ARE ALL CURRENTLY FOLLOWING THIS PATIENT. PATIENT WITH LAMONTE AT 11, ALL PRESSURE ULCER PREVENTION MEASURES ARE NOTED TO BE IN PLACE. PATIENT ON ABELARDO ISOFLEX JANNA SPECIALTY BED. WILL SEE PRN.
--- NOTE | 2019-08-23 07:35 | NUR ---
rn opening notes Patient received on a ventilator, portex 8. No sob noted, shows no s/s of pain at this time. Franco cath present and is draining at this time. Nepro @ 50 ml per hour. R femoral PICC line and L CW perma cath present. Bed at the lowest setting, call light within reach, side rails up x2.
[2019-08-23 08:00] VITALS: BP 110/63
[2019-08-23] MEDS: CHLORHEXIDINE GLUCONATE 15 ML UDC MM SCH ×2 (08:02→21:20)
[2019-08-23] MEDS: HYDROGEL DRESSING 90 GM TUBE TP SCH (08:02)
[2019-08-23] MEDS: ZINC SULFATE 220 MG CAPSULE GT SCH (08:02)
[2019-08-23] MEDS: DAKINS QUARTER STRENGTH (0.125%) 480 ML BOTTLE TOP SCH ×2 (08:02)
[2019-08-23] MEDS: BLOOD SUGAR DIAGNOSTIC 1 EACH STRIP IN SCH ×2 (08:02→21:11)
[2019-08-23] MEDS: DOCUSATE SODIUM 100 MG CAPSULE PO SCH ×2 (08:02→16:35)
[2019-08-23] MEDS: VIT B CMPLX 3/FA/VIT C/BIOTIN 1 TAB TABLET GT SCH (08:02)
[2019-08-23] MEDS: PANTOPRAZOLE 40 MG TABLET.DR PO SCH ×2 (08:02→16:35)
[2019-08-23] MEDS: MEROPENEM 500 MG in IV NS 0.9% 50 ML IV SCH ×2 (08:02→21:10)
[2019-08-23] MEDS: SILVER SULFADIAZINE CREAM 25 GM TUBE TP SCH ×2 (08:03)
[2019-08-23 08:13] LABS: BASOPHILS # (AUTO) 0.1 /CMM (0.0-0.2); BASOPHILS % (AUTO) 0.4 % (0.0-2.0); EOSINOPHILS % (AUTO) 1.8 % (0.0-6.0); HEMATOCRIT 25 % (39-51); LYMPHOCYTES # (AUTO) 0.9 /CMM (0.8-4.8); LYMPHOCYTES % (AUTO) 6.3 % (20.0-44.0); MEAN CORPUSCULAR HGB CONC 32 g/dl (31.0-36.0); MEAN CORPUSCULAR VOLUME 92 fL (80-96); MONOCYTES # (AUTO) 1.7 /CMM (0.1-1.30); MONOCYTES % (AUTO) 12.1 % (2.0-12.0); NEUTROPHILS # (AUTO) 11.2 /CMM (1.8-8.9); NEUTROPHILS % (AUTO) 79.4 % (43.0-81.0); PLATELET COUNT (AUTO) 314 /CMM (150-450); RED BLOOD CELL COUNT(AUTO) 2.74 MIL/uL (4.5-6.0); WHITE BLOOD COUNT (AUTO) 14.1 K/uL (4.3-11.0)
[2019-08-23 08:22] LABS: CALCIUM, SERUM 9.2 mg/dL (8.5-10.1); MAGNESIUM 2.5 mg/dL (1.8-2.4); PHOSPHORUS 3.6 mg/dL (2.5-4.9); POTASSIUM 3.4 mmol/L (3.5-5.1)
[2019-08-23] MEDS ORDERED: DAKINS QUARTER STRENGTH (0.125%) 480 ML BOTTLE TOP SCH (09:00)
[2019-08-23] MEDS ORDERED: SILVER SULFADIAZINE 50 GM JAR TP SCH (09:00)
--- NOTE | 2019-08-23 15:12 | NUR ---
rn notes Dietary called and is asking for an order for the GTUBE feeding to be at 24 hours and a BID prostat. Dr Hung Chacon made aware via text.
[2019-08-23 16:00] VITALS: BP 115/70
--- NOTE | 2019-08-23 16:33 | NUR ---
rn notes feeding to be increased to [address] Chacon aware and is agreeing with the order.
[2019-08-23] MEDS: PROSOURCE / PROSTAT (PYXIS) 30 ML UDC GT SCH (17:00)
--- NOTE | 2019-08-23 17:42 | NUR ---
rn closing notes Patient remains on a ventilator, no sob noted, patient shows no s/s of pain at this time. Franco cath remains in place and is draining. Nepro @ 50 ml per hour to be run for 24 hours. Minimal residuals noted. MD aware of the changes and is agreeing. HD scheduled tomorrow. Bed at the lowest setting, call light within reach, side rails up x2. Will give report to RUBEN RN for DENNIS bedside.
[2019-08-23 20:29] VITALS: BP 110/69
[2019-08-24] VITALS: BP 114/70
[2019-08-24] MEDS: ALBUTEROL FS 2.5 MG/3 ML VIAL.NEB NEB SCH ×4 (00:57→19:09)
[2019-08-24] MEDS: IPRATROPIUM NEB FS 0.5 MG/2.5 ML AMPUL.NEB NEB SCH ×4 (00:57→19:09)
[2019-08-24 04:27] VITALS: BP 108/70
[2019-08-24] MEDS: NEPRO 1,000 ML BOTTLE GT SCH (06:03)
--- NOTE | 2019-08-24 06:28 | NUR ---
SALES REPRESENTATIVE BUSINESS COURSES NOTES AWAKE & ALERT. NON VERBAL WITH SAME VENT SETTINGS. NOT IN ANY DISTRESS. NO SOB NOTED. NO S/SX OF ANY PAIN OR DISCOMFORT AT THIS TIME. ON TELE SR @ 98 WITH IV-HL PATENT & INTACT. WITH GTF INFUSING WELL. AM CARE DONE. MONITORED ACCORDINGLY. CALL LIGHT WITHIN REACH. BED IN LOWEST POSITION. SR UP X 3 WITH BED ALARM ON FOR SAFETY. WILL ENDORSE TO NEXT SHIFT.
--- NOTE | 2019-08-24 07:28 | NUR ---
SWIMMING POOL INSTALLER NOTES RECEIVED PATIENT IN BED RESTING COMFORTABLY IN MODERATE HIGH BACK REST. NON VERBAL WITH SAME VENT SETTINGS. NOT IN ANY DISTRESS NOTED AT THIS TIME. ON TELE MONITORING WITH CURRENT READING OF SR @ 90'S WITH IV-HL PATENT & INTACT. NOTED WITH GTF OF NEPHRO @50ML/HR, INFUSING WELL. CURRENTLY DOING HD, DIALYSIS NURSE AT BED SIDE. SAFETY MEASURES IN PLACE. CALL LIGHT WITHIN REACH. BED IN LOWEST POSITION. SR UP X 3 WITH BED ALARM ON FOR SAFETY. WILL CONTINUE TO MONITOR.
[2019-08-24] MEDS: ZINC SULFATE 220 MG CAPSULE GT SCH (09:16)
[2019-08-24] MEDS: CHLORHEXIDINE GLUCONATE 15 ML UDC MM SCH ×2 (09:16→21:03)
[2019-08-24] MEDS: PROSOURCE / PROSTAT (PYXIS) 30 ML UDC GT SCH ×2 (09:16→16:14)
[2019-08-24] MEDS: DOCUSATE SODIUM 100 MG CAPSULE PO SCH ×2 (09:16→16:14)
[2019-08-24] MEDS: VIT B CMPLX 3/FA/VIT C/BIOTIN 1 TAB TABLET GT SCH (09:16)
[2019-08-24] MEDS: MEROPENEM 500 MG in IV NS 0.9% 50 ML IV SCH ×2 (09:16→21:03)
[2019-08-24] MEDS: PANTOPRAZOLE 40 MG TABLET.DR PO SCH ×2 (09:16→16:14)
[2019-08-24] MEDS: SILVER SULFADIAZINE CREAM 25 GM TUBE TP SCH ×2 (09:21→09:23)
[2019-08-24] MEDS: HYDROGEL DRESSING 90 GM TUBE TP SCH (09:21)
[2019-08-24] MEDS: DAKINS QUARTER STRENGTH (0.125%) 480 ML BOTTLE TOP SCH ×2 (09:21→09:23)
--- NOTE | 2019-08-24 09:30 | NUR ---
RN NOTES S/P HD, 1L OUTPUT. NO SIGNS OF DISTRESS NOTED. WILL CONTINUE TO MONITOR.
[2019-08-24] MEDS: BLOOD SUGAR DIAGNOSTIC 1 EACH STRIP IN SCH ×2 (09:48→21:04)
--- NOTE | 2019-08-24 13:40 | NUR ---
RN NOTES SEEN AND EXAMINED BY MARILY LAM. S/P DEBRIDEMENT ON RIGHT FOOT. WOUND CARE DONE. WILL CONTINUE TO MONITOR.
[2019-08-24 16:00] VITALS: BP 108/72
--- NOTE | 2019-08-24 17:22 | NUR ---
RT NOTE RECEIVED PATIENT ON MECHANICAL VENT WITH ORDERED SETTINGS. ALARMS ON AND AUDIBLE WITH VENT PLUGGED IN TO RED OUTLET. AMBU BAG AND BACK UP TRACH BY THE BEDSIDE. TRACH TUBE IN PLACE, PATENT, AND SECURED WITH TRACH TIE. NO DISTRESS AT THIS TIME.
--- NOTE | 2019-08-24 18:37 | NUR ---
COOK HOUSE SUPERVISOR NOTES PATIENT IN BED RESTING COMFORTABLY IN MODERATE HIGH BACK REST. NON VERBAL WITH SAME VENT SETTINGS. NOT IN ANY DISTRESs. ON TELE MONITORING WITH CURRENT READING OF SR @ 90'S WITH IV-HL PATENT & INTACT. NOTED WITH GTF OF NEPHRO @50ML/HR, INFUSING WELL. SAFETY MEASURES IN PLACE. CALL LIGHT WITHIN REACH. BED IN LOWEST POSITION. SR UP X 3 WITH BED ALARM ON FOR SAFETY. WILL ENDORSE TO HEALTH INSURANCE ADJUSTER NURSE FOR DENNIS.
--- NOTE | 2019-08-24 19:14 | NUR ---
STOCK DIGGER NOTES PATIENT IN BED, NONVERBAL, RESTING COMFORTABLE. VENT SETTING PORTEX 8 TV 500 FIO2 40 AND PEEP 0. TELE MONITOR SR/ ST WITH PVC. FC IS CLEAN, DRY AND INTACT. RUNNING CLEAR YELLOW URINE. HD TODAY 1L OUT. GT RUNNING NEPRO 50ML/HR, GT IS FLUSHING WELL AND INTACT. R FEMORAL PICC CLEAN DRY AND INTACT. SHOWS NO SIGNS OF INFILTRATION, NO REDNESS. SAFETY PRECAUTIONS IN PLACE. BED IN LOWEST POSITION, LOCKED, AND CALL LIGHT KEPT WITHIN REACH. WILL CONTINUE TO MONITOR.
[2019-08-24 20:06] VITALS: BP 104/66
[2019-08-24 20:25] VITALS: BP 104/66
[2019-08-25 00:41] VITALS: BP 100/59
[2019-08-25] MEDS: ALBUTEROL FS 2.5 MG/3 ML VIAL.NEB NEB SCH ×4 (00:41→19:30)
[2019-08-25] MEDS: IPRATROPIUM NEB FS 0.5 MG/2.5 ML AMPUL.NEB NEB SCH ×5 (00:42→19:30)
[2019-08-25 04:00] VITALS: BP 100/61
--- NOTE | 2019-08-25 06:42 | NUR ---
DIRECTOR ALUMNI RELATIONS NOTES PATIENT IN BED, NONVERBAL, RESTING COMFORTABLE. VENT SETTING PORTEX 8 TV 500 FIO2 40 AND PEEP 0. TELE MONITOR SR/ ST WITH PVC. FC IS CLEAN, DRY AND INTACT. RUNNING CLEAR YELLOW URINE. RUNNING NEPRO 50ML/HR, GT IS FLUSHING WELL AND INTACT. R FEMORAL PICC CLEAN DRY AND INTACT. SHOWS NO SIGNS OF INFILTRATION, NO REDNESS. ALL DUE MEDICATIONS GIVEN. SAFETY PRECAUTIONS IN PLACE. BED IN LOWEST POSITION, LOCKED, AND CALL LIGHT KEPT WITHIN REACH. WILL ENDORSE TO ONCOMING NURSE.
--- NOTE | 2019-08-25 07:10 | NUR ---
KENNEL HAND NOTES RECEIVED PATIENT IN BED, ASLEEP. RESPONSIVE TO VERBAL AND TACTILE STIMULI. HOB ELEVATED. NO SOB OBSERVED HAYDEE MECHANICAL VENTILATION WELL ORDERED. NO EVIDENCE OF PAIN NOR DISCOMFORT AT THIS TIME. GT INTACT AND PATENT HAYDEE FEEDING WELL OF NEPRO @ 50ML/HR. NO RESIDUAL NOTED. LEFT FEMORAL TRIPLE LUMEN IV ACCES INTACT AND PATENT. BED IN LOWEST POSITION, LOCKED. BED ALARM ON. CALL LIGHT WITHIN REACH, TV ON FOR STIMULATION.
[2019-08-25 08:00] VITALS: BP 103/63
[2019-08-25] MEDS: CHLORHEXIDINE GLUCONATE 15 ML UDC MM SCH ×2 (08:56→21:16)
[2019-08-25] MEDS: ZINC SULFATE 220 MG CAPSULE GT SCH (08:56)
[2019-08-25] MEDS: DOCUSATE SODIUM 100 MG CAPSULE PO SCH ×2 (08:56→16:51)
[2019-08-25] MEDS: PROSOURCE / PROSTAT (PYXIS) 30 ML UDC GT SCH ×2 (08:57→16:51)
[2019-08-25] MEDS: PANTOPRAZOLE 40 MG TABLET.DR PO SCH ×2 (08:57→16:51)
[2019-08-25] MEDS: VIT B CMPLX 3/FA/VIT C/BIOTIN 1 TAB TABLET GT SCH (08:58)
[2019-08-25] MEDS: MEROPENEM 500 MG in IV NS 0.9% 50 ML IV SCH ×2 (08:58→21:16)
[2019-08-25] MEDS: DAKINS QUARTER STRENGTH (0.125%) 480 ML BOTTLE TOP SCH ×2 (08:58→08:59)
[2019-08-25] MEDS: HYDROGEL DRESSING 90 GM TUBE TP SCH (08:59)
[2019-08-25] MEDS: SILVER SULFADIAZINE CREAM 25 GM TUBE TP SCH ×2 (09:00)
[2019-08-25] MEDS: BLOOD SUGAR DIAGNOSTIC 1 EACH STRIP IN SCH ×2 (09:00→21:16)
[2019-08-25] MEDS: NEPRO 1,000 ML BOTTLE GT SCH ×2 (12:56→23:42)
[2019-08-25 16:00] VITALS: BP 102/63
--- NOTE | 2019-08-25 16:51 | NUR ---
PARAMEDIC SUPERVISOR NOTES HELD COLACE, PATIENT WITH LOOSE BM
--- NOTE | 2019-08-25 18:53 | NUR ---
ANDROID FRAMEWORK DEVELOPER NOTES PATIENT RESTING COMFORTABLY IN BED. HOB ELEVATED. NO S/S OF RESPIRATORY DISTRESS. HAYDEE MECHANICAL VENTILATION WELL ORDERED AC 12, TV 500, FIO2 OF 40% WITH PORTEX # 8 INTACT. SUCTIONED PATIENT AND OBTAINED SMALL THIN AMOUNT OF SECRETIONS. WOUND CARE DONE HAYDEE WELL. NO EVIDENCE OF PAIN NOR DISCOMFORT AT THIS TIME. GT INTACT AND PATENT HAYDEE FEEDING WELL, NEPRO @ 50ML/HR, NO RESIDUAL NOTED. LEFT FEMORAL TRIPLE LUMEN IV ACCES INTACT AND PATENT. LEFT UPPER CHEST PERMACATH INTACT WITH DRESSING INTACT. BED IN LOWEST POSITION, LOCKED. BED ALARM ON. CALL LIGHT WITHIN REACH. IN NO APPARENT DISTRESS.
--- NOTE | 2019-08-25 20:20 | NUR ---
MS/RN PATIENT APPEARS SLEEPING, APPEAR COMFORTABLE, NO SIGNS OF DISTRESS NOTE, MECH VENT WORKING WELL, G TUBE FEEDING INFUSING, NO RESIDUAL NOTED, HOB ELEVATED, WILL MONITOR.
[2019-08-25 20:24] VITALS: BP 129/83
[2019-08-26] VITALS: BP 108/72
[2019-08-26] MEDS: IPRATROPIUM NEB FS 0.5 MG/2.5 ML AMPUL.NEB NEB SCH ×4 (01:28→19:21)
[2019-08-26] MEDS: ALBUTEROL FS 2.5 MG/3 ML VIAL.NEB NEB SCH ×4 (01:29→19:21)
[2019-08-26 04:00] VITALS: BP 103/62
--- NOTE | 2019-08-26 04:56 | NUR ---
MS/RN MORNING CARE DONE, LARGE BM NOTED, SACRA/BUTTOCKS DRESSING WAS CHANGED IT GOT DIRTY WITH STOOL, TRACH DRESSING WAS CHANGED USING ASEPTIC TECHNIQUE, PATIENT TOLERATED WELL, BED BATH DONE, REPOSITIONED TO COMFORT. HOB ELEVATED, WILL CONTINUE TO MONITOR.
--- NOTE | 2019-08-26 06:37 | NUR ---
MS/RN PATIENT IS SLEEPING, APPEAR COMFORTABLE, NO DISTRESS NOTED, HOB ELEVATED, GT FEEDING INFUSING, MECH VENT WORKING WELL, ALL NEEDS ATTENDED AT TIS TIME, WILL CONTINUE TO MONITOR.
--- NOTE | 2019-08-26 07:40 | NUR ---
TELE/RN OPENING NOTES RECEIVED PATIENT SLEEPING ON BED COMFORTABLY. NO SOB NOTED. NO RESPIRATORY DISTRESS NOTED. PATIENT IS ON VENT AC 12 FIO2 40% TV 500 . TELE MONITOR IN PLACED SINUS TACHY 111. HP RIGHT GROIN PICC LINE, LEFT HDCATH PATENT AND INTACT. WILL CONTINUE TO MONITOR.
[2019-08-26 07:58] LABS: CALCIUM, SERUM 9.1 mg/dL (8.5-10.1); POTASSIUM 3.3 mmol/L (3.5-5.1)
[2019-08-26 08:00] VITALS: BP 102/69
[2019-08-26 08:12] LABS: CREATININE 7.6 mg/dL (0.6-1.3)
[2019-08-26] MEDS: CHLORHEXIDINE GLUCONATE 15 ML UDC MM SCH ×2 (08:22→20:31)
[2019-08-26] MEDS: DOCUSATE SODIUM 100 MG CAPSULE PO SCH (08:22)
[2019-08-26] MEDS: PANTOPRAZOLE 40 MG TABLET.DR PO SCH ×2 (08:22→16:35)
[2019-08-26] MEDS: ZINC SULFATE 220 MG CAPSULE GT SCH (08:22)
[2019-08-26] MEDS: VIT B CMPLX 3/FA/VIT C/BIOTIN 1 TAB TABLET GT SCH (08:22)
[2019-08-26] MEDS: DAKINS QUARTER STRENGTH (0.125%) 480 ML BOTTLE TOP SCH ×2 (08:31→09:41)
[2019-08-26] MEDS: MEROPENEM 500 MG in IV NS 0.9% 50 ML IV SCH ×2 (08:32→20:31)
[2019-08-26] MEDS: SILVER SULFADIAZINE CREAM 25 GM TUBE TP SCH ×2 (08:33→09:41)
[2019-08-26] MEDS: HYDROGEL DRESSING 90 GM TUBE TP SCH (08:34)
[2019-08-26] MEDS: PROSOURCE / PROSTAT (PYXIS) 30 ML UDC GT SCH ×2 (09:30→16:35)
[2019-08-26] MEDS: BLOOD SUGAR DIAGNOSTIC 1 EACH STRIP IN SCH ×2 (09:30→20:33)
--- NOTE | 2019-08-26 09:47 | NUR ---
TELE/RN NOTES CREATININE 7.6 MD AND CHARGE NURSE IS AWARE. WILL CONTINUE MONITOR.
[2019-08-26 12:00] VITALS: BP 115/57
--- NOTE | 2019-08-26 12:35 | NUR ---
TELE/RN NOTES HEMODIALYSIS WAS DONE 1L OF WATER REMOVED. BP 115/57 P 115 RR 12 T 99 O2SAT 100%. WILL CONTINUE TO MONITOR.
[2019-08-26] MEDS ORDERED: VANCOMYCIN 1 GM in IV D5W 250 ML IV ONE (13:00)
--- NOTE | 2019-08-26 13:30 | NUR ---
TELE/RN NOTED POTASSIUM 3.3 MD IS AWARE.
--- NOTE | 2019-08-26 13:50 | NUR ---
TELE/RN NOTES CALLED THE PHARMACY THIS MORNING ASKING IF THEY CAN REPLACE THE POTASSIUM 3.3 BUT SAID STILL WORKING ON IT. FOLLOW UP AFTER 1HOUR STILL WORKING ON IT. AT 1340 FOLLOW UP AGAIN PHARMACY SAID THEY CANNOT REPLACED IT BECAUSE ITS A HEMODIALYSIS PATIENT AND NEED TO RELAY THE RESULT TO MD.
[2019-08-26] MEDS: NEPRO 1,000 ML BOTTLE GT SCH ×2 (15:47→21:52)
[2019-08-26 16:00] VITALS: BP 121/73
[2019-08-26] MEDS: DOCUSATE SODIUM LIQ 100 MG/10 ML UDC PO SCH (16:36)
--- NOTE | 2019-08-26 18:34 | NUR ---
TELE/RN CLOSING NOTES PATIENT IS LYING ON THE BED COMFORTABLY ALERT AND ORIENTED X1. DENIES PAIN AT THIS TIME. NO RESPIRATORY DISTRESS AND NO SOB NOTED. STILL ON TELE MONITOR SINUS RHYTHM 92B/MIN. PATIENT IS ON VENT PORTEX #8 AC 12 FIO2 240% TV 500. HEMODIALYSIS WAS DONE AND REMOVED 1L OF WATER.SEEN AND EXAMINED BY MD WITH ORDER MADE AND CARRIED OUT. ALL DUE MEDS WAS ADMINISTERED. KEPT PATIENT DRY AND COMFORTABLE THE WHOLE SHIFT. TURNED AND REPOSITION PATIENT EVERY 2 HOURS. SAFETY PRECAUTION WAS IN PLACE BED IN LOWEST POSITION, SIDE RAILS UP X2. CALL LIGHT WITHIN REACH. WILL ENDORSED TO FOOD SAFETY SCIENTIST FOR DENNIS.
--- NOTE | 2019-08-26 19:28 | NUR ---
TELE/RN OPENING NOTES RECEIVED PATIENT IN BED, RESTING IN BED, ON VENTILATOR WITH PRESCRIBED SETTING WITH PEEP AT 0, TV AT 500, R- 12, 40% OXYGENATION . RT PROVIDING BREATHING TREATMENT, SUCTIONING NEEDS, WITH MULTIPLE SKIN ISSUES ON SACRAL AREA AND RIGHT FOOT. WITH SKIN TREATMENT ORDER, RECEIVED ENDORSEMENT FROM AM RN FOR DENNIS, PATIENT CAN OPEN EYES, NON VERBAL, ON VILLARREAL DRAINING SOME URINE, HAD HEMODIALYSIS TODAY, ON ANTIBIOTIC THERAPY, AND ON CONTACT ISOLATION FOR ESBL WOUND AND MRSA OF BLOOD. ON TUBE FEEDING OF NEPHRO AT 50 ML /HR, WITH RIGHT GROIN PICC LINE AND LCW HD CATHETER, BED LOCKED, CALL LIGHTS WITHIN REACH. WILL MONITOR.
--- NOTE | 2019-08-26 19:45 | NUR ---
PT RECEIVED TRACHED ON [facility] VENT ON CHARTED SETTINGS. NO SIGNS OF RESP DISTRESS NOTED AT THIS TIME. AIRWAY PATENT AND SECURED. LABORER MINE DONE. PT SUCTIONED. ALARMS SET AND AUDIBLE. AMBUBAG AND SPARE TRACH AT BEDSIDE. VENT CONNECTED TO RED OUTLET. WILL CONT TO MONITOR. Addendum: 08/26/19 at 1946 by JOSE GONZALEZ RT Amended: Links added.
[2019-08-26 20:00] VITALS: BP 114/57
--- NOTE | 2019-08-26 22:30 | NUR ---
TELE/RN NOTES MONITORED AND SUCTIONED NEEDED, OFF LOAD AND REPOSITIONED. WOUND TREATMENT PROVIDED, TOLERATED PROCEDURE,
[2019-08-27] VITALS (10 sets, daily range): BP systolic 98–138; BP diastolic 56–94
[2019-08-27] MEDS: IPRATROPIUM NEB FS 0.5 MG/2.5 ML AMPUL.NEB NEB SCH ×4 (00:45→20:17)
[2019-08-27] MEDS: ALBUTEROL FS 2.5 MG/3 ML VIAL.NEB NEB SCH ×4 (00:45→20:17)
--- NOTE | 2019-08-27 04:28 | NUR ---
TELE/RN NOTES PATIENT RESPIRATION GOES HIGH TO 36 AND BASELINE AT 26 RT WAS CONTACTED. ON TELE AT ST OF 102.
[2019-08-27] MEDS: ACETAMINOPHEN 325 MG TABLET PO PRN (04:35)
--- NOTE | 2019-08-27 04:35 | NUR ---
TELE/RN NOTES TYKENOL 650 VIA GTUBE ADMINISTERED.
--- NOTE | 2019-08-27 05:07 | NUR ---
TELE/RN NOTES RECHECKED RESPIRATION AT 19 AFTER TYLENOL 650 MG VIA GTUBE GIVEN.
--- NOTE | 2019-08-27 06:22 | NUR ---
322-2 TELE/RN CLOSING NOTES PATIENT ABLE TO SLEEP DURING THE NIGHT, WITH NEEDED SUCTION AND BREATHING THEAPY. WOUND CARE PROVIDED, LEPT DRESSING DRY AND INTACT, REPOSITIONED AND OFF LOAD. BED LOCKED. MONITORED FOR ANY CHANGES, IV ANTIBIOTIC INFUSED WITH NO S/S OF ADVERSE REACTION. WILL ENDORSE TO AM RN FOR DENNIS.
[2019-08-27 06:37] LABS: BASOPHILS # (AUTO) 0.1 /CMM (0.0-0.2); BASOPHILS % (AUTO) 0.9 % (0.0-2.0); EOSINOPHILS % (AUTO) 4.4 % (0.0-6.0); HEMATOCRIT 21 % (39-51); LYMPHOCYTES # (AUTO) 1.3 /CMM (0.8-4.8); MEAN CORPUSCULAR HGB CONC 32 g/dl (31.0-36.0); MEAN CORPUSCULAR VOLUME 91 fL (80-96); MONOCYTES # (AUTO) 1.1 /CMM (0.1-1.30); MONOCYTES % (AUTO) 12.3 % (2.0-12.0); NEUTROPHILS # (AUTO) 6.1 /CMM (1.8-8.9); NEUTROPHILS % (AUTO) 68.4 % (43.0-81.0); PLATELET COUNT (AUTO) 281 /CMM (150-450); RED BLOOD CELL COUNT(AUTO) 2.34 MIL/uL (4.5-6.0); WHITE BLOOD COUNT (AUTO) 8.9 K/uL (4.3-11.0)
[2019-08-27 06:49] LABS: HEMOGLOBIN 6.9 g/dL (13.5-17.5)
--- NOTE | 2019-08-27 06:53 | NUR ---
TELE/RN NOTES RECEIVED CRITICAL HGB LEVEL FROM LATEST LAB DRAW AT 6.9. MD HDZ MADE AWARE AND REPORTED WILL DO ORDER WITH DIALYSIS AND MADE AWARE ABOUT CRITICAL LAB LEVEL.
[2019-08-27 07:09] LABS: CALCIUM, SERUM 9.4 mg/dL (8.5-10.1); CREATININE 6.2 mg/dL (0.6-1.3); MAGNESIUM 2.6 mg/dL (1.8-2.4); PHOSPHORUS 3.6 mg/dL (2.5-4.9); POTASSIUM 3.4 mmol/L (3.5-5.1)
[2019-08-27 07:10] LABS: EOSINOPHILS % (MANUAL) 5 % (0-4); LYMPHOCYTES % (MANUAL) 13 % (16-48); MONOCYTES % (MANUAL) 12 % (0-11.0); NEUTROPHILS % (MANUAL) 70 (42-76)
--- NOTE | 2019-08-27 07:26 | NUR ---
TELE/RN NOTES PATIENT FAMILY WAS CONTACTED/LEFT MESSAGE FOR SOME NEEDED PROCEDURE AND REQUIRE CONSENT FOR HGB CRITICAL LAB CONTACTED NO [phone]. LEFT MESSAGE AND LEFT 3WEST CONTACT NO.TO ENDORSE TO AM RN FOR DENNIS.
--- NOTE | 2019-08-27 07:37 | NUR ---
DRAFTING LAYOUT WORKER OPENING NOTES RECEIVED PT IN BED IN NO ACUTE SIGNS OF DISTRESS. HOB ELEVATED. OBTUNDED AND EYES OPEN. PT WITH TRACH CONNECTED TO VENT AT PRESCRIBED PARAMETERS, TOLERATING SETTINGS WELL WITH NO SOB NOTED, SP02 100% AT THIS TIME. ON TELE MONITOR WITH CURRENT READING OF ST WITH HR OF 102. TRIPLE LUMEN RIGHT FEMORAL PICC LINE C/D/I. G-TUBE IN PLACE WITH FEEDING OF NEPRO @ 50 ML/HR IN PROGRESS, TOLERATING WELL. ASPIRATION PRECAUTIONS MAINTAINED. VILLARREAL CATHETER IN PLACE AND NOTED WITH SMALL AMOUNT OF CLEAR DARK YELLOWISH URINE OUTPUT. SAFETY MEASURES IN PLACE: BED IN LOWEST LOCKED POSITION WITH SR UP X3. CALL LIGHT WITHIN REACH. WILL CONTINUE TO MONITOR.
[2019-08-27] MEDS: DOCUSATE SODIUM LIQ 100 MG/10 ML UDC PO SCH ×2 (08:36→16:36)
[2019-08-27] MEDS: ZINC SULFATE 220 MG CAPSULE GT SCH (08:36)
[2019-08-27] MEDS: VIT B CMPLX 3/FA/VIT C/BIOTIN 1 TAB TABLET GT SCH (08:36)
[2019-08-27] MEDS: PANTOPRAZOLE 40 MG TABLET.DR PO SCH ×2 (08:36→16:37)
[2019-08-27] MEDS: PROSOURCE / PROSTAT (PYXIS) 30 ML UDC GT SCH ×2 (08:36→16:37)
[2019-08-27] MEDS: CHLORHEXIDINE GLUCONATE 15 ML UDC MM SCH ×2 (08:36→21:44)
[2019-08-27] MEDS: BLOOD SUGAR DIAGNOSTIC 1 EACH STRIP IN SCH ×2 (09:15→21:49)
[2019-08-27] MEDS: DAKINS QUARTER STRENGTH (0.125%) 480 ML BOTTLE TOP SCH ×2 (09:20→09:22)
[2019-08-27] MEDS: SILVER SULFADIAZINE CREAM 25 GM TUBE TP SCH ×2 (09:21)
[2019-08-27] MEDS: HYDROGEL DRESSING 90 GM TUBE TP SCH (09:23)
[2019-08-27] MEDS: MEROPENEM 500 MG in IV NS 0.9% 50 ML IV SCH ×2 (09:49→21:01)
--- NOTE | 2019-08-27 10:39 | NUR ---
RN NOTES PT FOR BLOOD TRANSFUSION TODAY DUE TO LOW HGB 6.9. CALLED FAMILY ( DAUGHTER AND SON) 2X BUT NO ANSWER AND LEFT MESSAGE. DR LOPEZ ON UNIT AND MADE AWARE. HE SIGNED BLOOD TRANSFUSION CONSENT TOGETHER WITH DIRECTOR OF CARDIOLOGY SERVICE LINE CLAUDIA MOBLEY. AFTER SIGNED CONSENT, RECEIVED CALL FROM PT'S DAUGHTER MAC MCNEIL AND OBTAINED CONSENT FOR BLOOD TRANSFUSION WELL AND VERIFIED BY ANOTHER RN ([facility]).
--- NOTE | 2019-08-27 10:43 | NUR ---
RN NOTES PT STARTED ON HEMODIALYSIS TOGETHER WITH BLOOD TRANSFUSION X1 BAG. V/S CHECKED; BP 105/65, RP 107, R 16, T 98.3F. WILL CONTINUE TO MONITOR
--- NOTE | 2019-08-27 11:00 | NUR ---
RN NOTES PT ON ONGOING HD AND BLOOD TRANSFUSION TOGETHER. NO ALLERGIC REACTIONS NOTED AFTER 15 MINUTES OF BLOOD TRANSFUSION. WILL CONTINUE TO MONITOR.
--- NOTE | 2019-08-27 12:05 | NUR ---
RN NOTES PT JUST FINISHED BLOOD TRANSFUSION AND HD WITH NO OUTPUT NOTED. NO ALLERGIC/ADVERSE REACTIONS NOTED. S/P HD VITAL SIGNS BP 116/56, P 104, RR 16, T 98.1f. WILL CONTINUE TO MONITOR
--- NOTE | 2019-08-27 14:38 | NUR ---
RN NOTES PT HAD HEMODIALYSIS TODAY. VANCOMYCIN RANDOM NOTED AT 22. CALLED POP OF PHARMACY AND SAID NOT TO ADMINISTER VANCOMYCIN IV PRN POST DIALYSIS. WILL CONTINUE TO MONITOR.
[2019-08-27] MEDS: NEPRO 1,000 ML BOTTLE GT SCH (17:50)
--- NOTE | 2019-08-27 18:48 | NUR ---
PT RCVD TRACH'D ON MECHANICAL VENT WITH CHARTED SETTINGS. PT HAYDEE TX WELL. SX DONE. PT TRACH IS PATENT AND SECURE. VENT ALARMS ARE SET, ON, AND AUDIBLE. VENT PLUGGED INTO RED OUTLET. AMBU BAG AT BEDSIDE. NO SOB NOTED. Addendum: 08/27/19 at 1849 by PANKAJ NASH RT Amended: Links added.
--- NOTE | 2019-08-27 19:04 | NUR ---
MACHINE DYER CLOSING NOTES PT IN BED LYING AT MODERATE HIGH BACKREST POSITION,.OBTUNDED AND EYES OPEN. PT WITH TRACH CONNECTED TO VENT AT PRESCRIBED PARAMETERS, TOLERATING SETTINGS WELL WITH NO SOB NOTED . ON TELE MONITOR WITH CURRENT READING OF SR WITH OCCASIONAL PVC'S AND HR OF 100-110 AT THIS TIME. TRIPLE LUMEN RIGHT FEMORAL PICC LINE IN PLACE WITH DRESSING C/D/I. G-TUBE IN PLACE WITH FEEDING OF NEPRO @ 50 ML/HR IN PROGRESS, TOLERATING WELL. ASPIRATION PRECAUTIONS MAINTAINED. VILLARREAL CATHETER IN PLACE AND NOTED WITH 10 ML DARK YELLOWISH URINE OUTPUT THIS SHIFT. VILLARREAL CARE DONE. PT TURNED AND REPOSITIONED Q 2HRS AND PRN. WOUND TREATMENTS DONE ORDERED., ALL DRESSINGS C/D/I. SAFETY MEASURES IN PLACE: BED IN LOWEST LOCKED POSITION WITH SR UP X3. CALL LIGHT WITHIN REACH. ALL NEEDS AND CARE PROVIDED WELL. WILL ENDORSE TO SHELTER ADVOCATE NURSE FOR DENNIS. Addendum: 08/27/19 at 1905 by MARY JO SPICER RN CORRECTIONS; TELEMONITOR READING IS ST WITH HR ON 100-105 AT THIS TIME AND NOT SR WITH OCCASIONAL PVC'S.
--- NOTE | 2019-08-27 19:20 | NUR ---
MERGERS AND ACQUISITIONS CONSULTANT NOTES: RECEIVED PATIENT Patient in bed, eyes closed, non verbal. Sinus Tach in the Tele monitor, Trach intact, on Mechanical vent. Gtube feeding at 50ml/hr, Aspiration precaution. Hgb 6.9 s/p blood transfusion 1 unit PRBC today per report. Contact isolation, PPE utilized. Maintained safety.
[2019-08-28] VITALS (7 sets, daily range): BP systolic 106–118; BP diastolic 54–71
[2019-08-28] MEDS: ALBUTEROL FS 2.5 MG/3 ML VIAL.NEB NEB SCH ×4 (01:44→20:05)
[2019-08-28] MEDS: IPRATROPIUM NEB FS 0.5 MG/2.5 ML AMPUL.NEB NEB SCH ×4 (01:44→20:05)
--- NOTE | 2019-08-28 06:21 | NUR ---
MACHINE CHOCOLATE MOLDER NOTES: END OF SHIFT REPORT Patient in bed, vent settings remains the same. Sinus rhythm in the Tele monitor. IV antibiotic, afebrile overnight. Dressing changed to wounds: sacrum, michelle buttocks, left foot, left heel, right heel. Repositioned with 2 person assist. Contact isolation, PPE utilized.
--- NOTE | 2019-08-28 07:30 | NUR ---
rn opening notes Patient received on ventilaotr, no sob noted, portex 8 placement and is in place. Bilateral breath sounds, ventilator plugged in the wall. SR rhythm at this time, duncan in place and is draining. NEPRO 50 ml per hour to be run for 24 hours. L subcalvian perma cath present, R femoral triple lumen present as well.
[2019-08-28 07:34] LABS: CALCIUM, SERUM 9.4 mg/dL (8.5-10.1); CREATININE 5.4 mg/dL (0.6-1.3); POTASSIUM 3.5 mmol/L (3.5-5.1)
[2019-08-28] MEDS: PROSOURCE / PROSTAT (PYXIS) 30 ML UDC GT SCH ×2 (08:36→16:38)
[2019-08-28] MEDS: PANTOPRAZOLE 40 MG TABLET.DR PO SCH ×2 (08:36→16:37)
[2019-08-28] MEDS: ZINC SULFATE 220 MG CAPSULE GT SCH (08:36)
[2019-08-28] MEDS: VIT B CMPLX 3/FA/VIT C/BIOTIN 1 TAB TABLET GT SCH (08:36)
[2019-08-28] MEDS: DOCUSATE SODIUM LIQ 100 MG/10 ML UDC PO SCH ×2 (08:36→16:38)
[2019-08-28] MEDS: CHLORHEXIDINE GLUCONATE 15 ML UDC MM SCH ×2 (08:36→21:50)
[2019-08-28] MEDS: DAKINS QUARTER STRENGTH (0.125%) 480 ML BOTTLE TOP SCH ×2 (08:37)
[2019-08-28] MEDS: SILVER SULFADIAZINE CREAM 25 GM TUBE TP SCH ×2 (08:37→08:38)
[2019-08-28] MEDS: HYDROGEL DRESSING 90 GM TUBE TP SCH (08:38)
[2019-08-28] MEDS: MEROPENEM 500 MG in IV NS 0.9% 50 ML IV SCH ×2 (09:28→21:51)
[2019-08-28] MEDS: BLOOD SUGAR DIAGNOSTIC 1 EACH STRIP IN SCH ×2 (09:57→21:51)
[2019-08-28 10:47] LABS: BASOPHILS # (AUTO) 0.1 /CMM (0.0-0.2); BASOPHILS % (AUTO) 0.6 % (0.0-2.0); EOSINOPHILS % (AUTO) 3.7 % (0.0-6.0); HEMATOCRIT 25 % (39-51); HEMOGLOBIN 7.6 g/dL (13.5-17.5); LYMPHOCYTES # (AUTO) 1.1 /CMM (0.8-4.8); LYMPHOCYTES % (AUTO) 10.1 % (20.0-44.0); MEAN CORPUSCULAR HGB CONC 31 g/dl (31.0-36.0); MEAN CORPUSCULAR VOLUME 91 fL (80-96); MONOCYTES # (AUTO) 1.3 /CMM (0.1-1.30); MONOCYTES % (AUTO) 11.3 % (2.0-12.0); NEUTROPHILS # (AUTO) 8.3 /CMM (1.8-8.9); NEUTROPHILS % (AUTO) 74.3 % (43.0-81.0); PLATELET COUNT (AUTO) 263 /CMM (150-450); RED BLOOD CELL COUNT(AUTO) 2.72 MIL/uL (4.5-6.0); WHITE BLOOD COUNT (AUTO) 11.2 K/uL (4.3-11.0)
[2019-08-28 10:54] LABS: MAGNESIUM 2.6 mg/dL (1.8-2.4); PHOSPHORUS 3.8 mg/dL (2.5-4.9)
--- NOTE | 2019-08-28 14:35 | NUR ---
PT RECEIVED TRACHED ON MECHANICAL VENT W/ NOTED SETTINGS PER MD. VENT ALARMS CHECKED, VENT IN RED OUTLET, AMBUBAG AT BEDSIDE; PT SX'ED AND LAVAGED PRN TO SMALL AMOUNTS OF WHITE THICK SECRETIONS; TRACH TUBE SECURED, CLEAN AND PATENT; MEDS GIVEN INLINE PER MD ORDER. Addendum: 08/28/19 at 1442 by MELIA LANG RT Amended: Links added.
--- NOTE | 2019-08-28 18:10 | NUR ---
rn closing notes Patient remains on ventilator, no sob noted, Franco remains in place and is getting NEPRO 50 ml per hour to be on for 24 hours. Remains to be on ventilator. Bed at the lowest setting, call light within reach, side rails up x2. Will continue to monitor patient.
--- NOTE | 2019-08-28 20:00 | NUR ---
RN NOTES RECEIVED PATIENT ALERT AND AWAKE, NON VERBAL, VENTILATOR DEPENDENT, NO SOB, SPO2 100%, TACHYCARDIA, GT INFUSING WELL, NO N/V, ABDOMEN SOFT AND NON TENDER, VILLARREAL CATHETER DRAINING OF YELLOW URINE, CHANGED DIAPER, SOFT, YELLOW STOOL, WOUND CARE PERFORMED, REINFORCED DRESSING OF BILATERAL FOOT WOUND, ASPIRATION PRECAUTION, CONTACT ISOLATION MAINTAINED, WILL CONTINUE TO MONITOR
[2019-08-28] MEDS: NEPRO 1,000 ML BOTTLE GT SCH (21:51)
[2019-08-29] VITALS: BP 125/75
[2019-08-29 00:28] VITALS: BP 125/75
[2019-08-29] MEDS: ALBUTEROL FS 2.5 MG/3 ML VIAL.NEB NEB SCH ×4 (01:11→19:25)
[2019-08-29] MEDS: IPRATROPIUM NEB FS 0.5 MG/2.5 ML AMPUL.NEB NEB SCH ×4 (01:11→19:25)
[2019-08-29 04:00] VITALS: BP 106/63
[2019-08-29 06:49] LABS: BASOPHILS # (AUTO) 0.1 /CMM (0.0-0.2); BASOPHILS % (AUTO) 0.8 % (0.0-2.0); EOSINOPHILS % (AUTO) 4.7 % (0.0-6.0); HEMATOCRIT 26 % (39-51); HEMOGLOBIN 8.2 g/dL (13.5-17.5); LYMPHOCYTES # (AUTO) 1.4 /CMM (0.8-4.8); MEAN CORPUSCULAR HGB CONC 32 g/dl (31.0-36.0); MEAN CORPUSCULAR VOLUME 89 fL (80-96); MONOCYTES # (AUTO) 1.1 /CMM (0.1-1.30); MONOCYTES % (AUTO) 10.4 % (2.0-12.0); NEUTROPHILS # (AUTO) 7.5 /CMM (1.8-8.9); NEUTROPHILS % (AUTO) 71.1 % (43.0-81.0); PLATELET COUNT (AUTO) 301 /CMM (150-450); RED BLOOD CELL COUNT(AUTO) 2.86 MIL/uL (4.5-6.0); WHITE BLOOD COUNT (AUTO) 10.5 K/uL (4.3-11.0)
[2019-08-29 07:05] LABS: CALCIUM, SERUM 9.9 mg/dL (8.5-10.1); CREATININE 6.9 mg/dL (0.6-1.3); POTASSIUM 3.4 mmol/L (3.5-5.1)
--- NOTE | 2019-08-29 07:18 | NUR ---
RN NOTES AWAKE, NON VERBAL, TRACH DEPENDENT, NO SOB, NO PAIN, NO RESTLESSNESS, WOUND CARE PERFORMED, TURNING AND REPOSITIONING, CONTINUE WOUND CARE, SUPPORTIVE CARE, MERREM Q12 HOURS, VANCO PRN AFTER HD
[2019-08-29 08:00] VITALS: BP 108/64
--- NOTE | 2019-08-29 08:00 | NUR ---
ms rn received on bed, awake,vent dependent w/ g tube feeding.not in any form of distress, respirations even and unlabored,no sob noted,all needs attended.
[2019-08-29] MEDS: SILVER SULFADIAZINE CREAM 25 GM TUBE TP SCH ×3 (09:00→19:03)
[2019-08-29] MEDS: DAKINS QUARTER STRENGTH (0.125%) 480 ML BOTTLE TOP SCH ×2 (09:00→19:02)
--- NOTE | 2019-08-29 09:40 | NUR ---
ms nkechi due meds given via g tube,tolerated well.
[2019-08-29] MEDS: PANTOPRAZOLE 40 MG TABLET.DR PO SCH ×2 (09:56→18:28)
[2019-08-29] MEDS: DOCUSATE SODIUM LIQ 100 MG/10 ML UDC PO SCH ×2 (09:56→18:28)
[2019-08-29] MEDS: ZINC SULFATE 220 MG CAPSULE GT SCH (09:56)
[2019-08-29] MEDS: VIT B CMPLX 3/FA/VIT C/BIOTIN 1 TAB TABLET GT SCH (09:56)
[2019-08-29] MEDS: CHLORHEXIDINE GLUCONATE 15 ML UDC MM SCH ×2 (09:56→21:55)
[2019-08-29] MEDS: BLOOD SUGAR DIAGNOSTIC 1 EACH STRIP IN SCH ×2 (09:57→21:53)
[2019-08-29] MEDS: MEROPENEM 500 MG in IV NS 0.9% 50 ML IV SCH ×2 (09:59→21:57)
[2019-08-29] MEDS: PROSOURCE / PROSTAT (PYXIS) 30 ML UDC GT SCH ×2 (09:59→18:29)
[2019-08-29] MEDS ORDERED: RXVAN IV (15:00)
[2019-08-29] MEDS ORDERED: MERO500V21 IV (15:00)
[2019-08-29] MEDS ORDERED: VANC500F2 IV (15:00)
--- NOTE | 2019-08-29 15:00 | NUR ---
ms rn, on bed, no distress noted.
[2019-08-29 16:00] VITALS: BP 127/74
--- NOTE | 2019-08-29 17:00 | NUR ---
ms rn finished dialysis w/1 liter out.
--- NOTE | 2019-08-29 17:28 | NUR ---
ms rn for d/c today.
[2019-08-29] MEDS: HYDROGEL DRESSING 90 GM TUBE TP SCH (19:01)
[2019-08-29 20:00] VITALS: BP 135/85
--- NOTE | 2019-08-29 20:00 | NUR ---
tele advertising executive initial notes received report from am nurse Shayla and seen pt in bed resting at this time with g-tube feeding at 50ml/hr no aspiration noted ,flushed with some water and noted patent and intact. wound dressing dry and intact done by am shift and photo taken as well. Pt on bed with ventilator set up by RT as ordered. No signs of any acute distress noted. kept him warm and comfortable at all times. Tele sinus tach per monitor. Called Ronan and gave report to nurse Peraza . Patient chart copied . will continue monitoring.
--- NOTE | 2019-08-29 22:00 | NUR ---
ms md urologist closing notes pt pickling grader by [facility]. gave report and hand held copy of pt charts. pt awake not in any acute distress noted.
== END 2019-08-29 22:20 | DRG 951 ==
LOC: ER 16:00 → TELE 20:41
PROVIDERS: ADMIT Internal Medicine; ATTEND Internal Medicine
PROC: 06H033Z Insertion of Infusion Device into Inferior Vena Cava, Percutaneous Approach (ICD-10-PCS; 2019-08-21)
PROC: B549ZZA Ultrasonography of Inferior Vena Cava, Guidance (ICD-10-PCS; 2019-08-21)
PROC: 5A1955Z Respiratory Ventilation, Greater than 96 Consecutive Hours (ICD-10-PCS; 2019-08-21)
PROC: 5A1D70Z Performance of Urinary Filtration, Intermittent, Less than 6 Hours Per Day (ICD-10-PCS; 2019-08-22)
PROC: 0QB10ZZ Excision of Sacrum, Open Approach (ICD-10-PCS; 2019-08-23)
PROC: 0KBN0ZZ Excision of Right Hip Muscle, Open Approach (ICD-10-PCS; 2019-08-23)
PROC: 0KBP0ZZ Excision of Left Hip Muscle, Open Approach (ICD-10-PCS; 2019-08-23)
PROC: 0KBV0ZZ Excision of Right Foot Muscle, Open Approach (ICD-10-PCS; principal; 2019-08-24)
PROC: 0LBV0ZZ Excision of Right Foot Tendon, Open Approach (ICD-10-PCS; principal; 2019-08-24)
PROC: 30233N1 Transfusion of Nonautologous Red Blood Cells into Peripheral Vein, Percutaneous Approach (ICD-10-PCS; 2019-08-27)
DX: T85.71XA Infection and inflammatory reaction due to peritoneal dialysis catheter, initial encounter (principal); A41.9 Sepsis, unspecified organism; G93.40 Encephalopathy, unspecified; Z99.11 Dependence on respirator [ventilator] status; J96.11 Chronic respiratory failure with hypoxia; E46 Unspecified protein-calorie malnutrition; L89.154 Pressure ulcer of sacral region, stage 4; L89.324 Pressure ulcer of left buttock, stage 4; E11.22 Type 2 diabetes mellitus with diabetic chronic kidney disease; L89.310 Pressure ulcer of right buttock, unstageable; R53.2 Functional quadriplegia; I12.0 Hypertensive chronic kidney disease with stage 5 chronic kidney disease or end stage renal disease; N18.6 End stage renal disease; E11.621 Type 2 diabetes mellitus with foot ulcer; E11.51 Type 2 diabetes mellitus with diabetic peripheral angiopathy without gangrene; R13.10 Dysphagia, unspecified; Z79.4 Long term (current) use of insulin; Z87.440 Personal history of urinary (tract) infections; Z93.1 Gastrostomy status; Z99.2 Dependence on renal dialysis; I69.354 Hemiplegia and hemiparesis following cerebral infarction affecting left non-dominant side; F03.90 Unspecified dementia, unspecified severity, without behavioral disturbance, psychotic disturbance, mood disturbance, and anxiety; M24.562 Contracture, left knee; M24.561 Contracture, right knee; M24.542 Contracture, left hand; M24.541 Contracture, right hand; S31.30XA Unspecified open wound of scrotum and testes, initial encounter; X58.XXXA Exposure to other specified factors, initial encounter; Y93.9 Activity, unspecified; Y92.129 Unspecified place in nursing home as the place of occurrence of the external cause; L97.429 Non-pressure chronic ulcer of left heel and midfoot with unspecified severity; L97.419 Non-pressure chronic ulcer of right heel and midfoot with unspecified severity; B37.49 Other urogenital candidiasis; D50.0 Iron deficiency anemia secondary to blood loss (chronic); Z95.828 Presence of other vascular implants and grafts
CPT/HCPCS: 31720; 36415; 36569; 36600; 38221; 71045-TC; 74018; 80048-TC; 80061-TC; 80076-TC; 80202-TC; 81000-TC; 82803-TC; 82962-TC; 83605-TC; 83735-TC; 84100-TC; 84484-TC; 85025-TC; 85730-TC; 86850-TC; 86921-TC; 87040-TC; 87070-TC; 87086-TC; 87186-TC; 90935-TC; 94003-TC; 94760-TC; 94762-TC; 94799-TC; A4216; A4623; A6248; A6253; A6403; A6407; A7526; G0378; J2185; J3370; J3490; J7030; J7050; J7060; P9016-BL

== ENCOUNTER 2019-10-27 13:42 | Inpatient (IN) | payer MEDICAID ==
[~2019-10-27] VITALS: Ht 165.1 cm; Wt 87.5 kg
[~2019-10-27 13:42] MED LIST changes: +ARGI1PAC GT; +ASCO-352 GT; -ASCO500T9 GT; +MERO500V21 IV; +MULT-447 GT; +RXVAN IV; +VANC500F2 IV
--- NOTE | 2019-10-27 14:18 | NUR ---
PT REC'D TO ER VIA EMS FROM SNF WAS GONNA GET DIALYSIS AND BP LOW . ARRIVED PUT ON MONITORS 103/65 . RT A T BEDSIDE . PT TRACH AND VENT . GTUBE PTRESENT AWAITING EVALUATION BY ER PROVIDER.
--- NOTE | 2019-10-27 15:07 | NUR ---
IV STARTED 20 RT AC LABS AND CULTURES
[2019-10-27 15:14] LABS: BASOPHILS # (AUTO) 0.2 /CMM (0.0-0.2); BASOPHILS % (AUTO) 1.2 % (0.0-2.0); EOSINOPHILS % (AUTO) 2.2 % (0.0-6.0); HEMATOCRIT 33 % (39-51); HEMOGLOBIN 10.1 g/dL (13.5-17.5); LYMPHOCYTES # (AUTO) 1.7 /CMM (0.8-4.8); MEAN CORPUSCULAR HGB CONC 30 g/dl (31.0-36.0); MEAN CORPUSCULAR VOLUME 91 fL (80-96); MONOCYTES # (AUTO) 1.6 /CMM (0.1-1.30); MONOCYTES % (AUTO) 10.2 % (2.0-12.0); NEUTROPHILS # (AUTO) 11.8 /CMM (1.8-8.9); NEUTROPHILS % (AUTO) 75.4 % (43.0-81.0); PLATELET COUNT (AUTO) 294 /CMM (150-450); RED BLOOD CELL COUNT(AUTO) 3.68 MIL/uL (4.5-6.0); WHITE BLOOD COUNT (AUTO) 15.7 K/uL (4.3-11.0)
[2019-10-27 15:20] LABS: CALCIUM, SERUM 9.8 mg/dL (8.5-10.1); CARBON DIOXIDE 25 mmol/L (21-32); CHLORIDE 99 mmol/L (98-107); GLUCOSE 100 mg/dL (74-106); POTASSIUM 3.5 mmol/L (3.5-5.1); SODIUM SERUM 137 mmol/L (136-145)
[2019-10-27 15:21] LABS: UREA NITROGEN, BLOOD 80 mg/dL (7-18)
[2019-10-27 15:22] LABS: CREATININE 8.1 mg/dL (0.6-1.3)
[2019-10-27 15:28] LABS: ALANINE AMINOTRANSFERASE 72 U/L (12-78); ALBUMIN 2.7 g/dL (3.4-5.0); ALKALINE PHOSPHATASE 147 U/L (46-116); ASPARTATE AMINOTRANSFERASE 25 U/L (15-37); BILIRUBIN,DIRECT 0.1 mg/dL (0.0-0.2); BILIRUBIN,TOTAL 0.4 mg/dL (0.2-1.0); TOTAL PROTEIN, SERUM 7.5 g/dL (6.4-8.2)
[2019-10-27] MEDS ORDERED: PIPERACILLIN /TAZOBACTAM 3.375 G in IV D5W 50 ML IV ONE (16:00)
[2019-10-27] MEDS ORDERED: VANCOMYCIN HCL 1 GM in IV D5W 260 ML IV ONE (16:00)
--- NOTE | 2019-10-27 16:15 | NUR ---
ZOYSN GIVEN PER MD ORDER
--- NOTE | 2019-10-27 16:26 | NUR ---
CIRAO GIVEN NOW 1GM END TIME 1736
--- NOTE | 2019-10-27 16:44 | NUR ---
PAGED VIP NEPHRO
[2019-10-27] MEDS ORDERED: IV NS 0.9% 500 ML BAG IV ONE (17:00)
--- NOTE | 2019-10-27 18:07 | NUR ---
COVID TEST DONE MRSA DONE MEDS GIVEN PER MD ORDER RT AT BEDSIDE
--- NOTE | 2019-10-27 18:55 | NUR ---
RN NOTES CALLED PHARMACY AND SPOKE TO POP, VERIFIED THEY RECEIVED ORDER FAXED BY DR. MASSIMO LÓPEZ. WILL ENDORSE TO INCOMING NIGHT NURSE WELL.
--- NOTE | 2019-10-27 18:57 | NUR ---
RN NOTES RECEIVED PT FROM ER VIA MATTHEW WITH RN AND 2RTS AT BEDSIDE, ARRIVED AT THE UNIT AT 1850. PT AWAKE. PT HAS TRACH PORTEX 8, CURRENT VENT SETTING WITH SATURATION OF 100%. VS BP 101/68, T 99.0, RR16. HOOKED TO TELEMONITORING WITH NSR HR OF 77. LCW HD ACCESS NOTED WELL. PIV TO RFA G20, FLUSHED WITH NS, INTACT AND OPERATIONAL. FC IN PLACE WITH URINE IN THE BAG. HOB ELEVATED. PT KEPT COMFORTABLE IN BED. PT'S IN LOWEST, LOCKED, POSITION WITH SR X3. WILL ENDORSED TO INCOMING NIGHT NURSE FOR DENNIS.
[2019-10-27] MEDS ORDERED: FEE PK DOSING 1 MIN EA MC ONE (19:06)
[2019-10-27] MEDS ORDERED: INSULIN REGULAR, HUMAN 100 UNIT/ML 3 ML VIAL SQ PRN (19:30)
[2019-10-27] MEDS ORDERED: DEXTROSE 50%-WATER 50 ML DISP.SYRIN IV PRN (19:30)
[2019-10-27] MEDS: NEPRO 1,000 ML BOTTLE GT PRN ×2 (19:59→20:02)
[2019-10-27 20:00] VITALS: BP 103/66
[2019-10-27] MEDS: IV NS 0.9% 1,000 ML IV PRN (20:07)
[2019-10-28] VITALS (8 sets, daily range): BP systolic 95–145; BP diastolic 50–85
[2019-10-28] MEDS: BLOOD SUGAR DIAGNOSTIC 1 EACH STRIP IN SCH ×4 (00:14→18:04)
[2019-10-28] MEDS: PIPERACILLIN /TAZOBACTAM 2.25 G in IV D5W 50 ML IV SCH ×3 (00:26→16:05)
[2019-10-28 06:38] LABS: BASOPHILS # (AUTO) 0.1 /CMM (0.0-0.2); BASOPHILS % (AUTO) 0.7 % (0.0-2.0); EOSINOPHILS % (AUTO) 2.9 % (0.0-6.0); HEMATOCRIT 30 % (39-51); HEMOGLOBIN 9.2 g/dL (13.5-17.5); LYMPHOCYTES # (AUTO) 1.3 /CMM (0.8-4.8); LYMPHOCYTES % (AUTO) 11.8 % (20.0-44.0); MEAN CORPUSCULAR HGB CONC 31 g/dl (31.0-36.0); MEAN CORPUSCULAR VOLUME 89 fL (80-96); MONOCYTES # (AUTO) 1.2 /CMM (0.1-1.30); MONOCYTES % (AUTO) 10.8 % (2.0-12.0); NEUTROPHILS # (AUTO) 8.4 /CMM (1.8-8.9); NEUTROPHILS % (AUTO) 73.8 % (43.0-81.0); PLATELET COUNT (AUTO) 274 /CMM (150-450); RED BLOOD CELL COUNT(AUTO) 3.31 MIL/uL (4.5-6.0); WHITE BLOOD COUNT (AUTO) 11.4 K/uL (4.3-11.0)
[2019-10-28 06:54] LABS: CALCIUM, SERUM 9.2 mg/dL (8.5-10.1); MAGNESIUM 3.3 mg/dL (1.8-2.4); PHOSPHORUS 5.5 mg/dL (2.5-4.9); POTASSIUM 3.5 mmol/L (3.5-5.1)
--- NOTE | 2019-10-28 07:04 | NUR ---
RN CLOSING NOTE NO ACUTE CHANGES OBSERVED OVERNIGHT. PT ON MECHANICAL VENTILATOR AND TOLERATING SETTINGS WELL. CALL LIGHT WITHIN REACH, SAFETY MEASURES IN PLACE, WILL ENDORSE TO MORNING RN FOR CONTINUATION OF CARE.
[2019-10-28] MEDS ORDERED: DEXTROSE 50%-WATER 50 ML DISP.SYRIN IV PRN (07:30)
[2019-10-28] MEDS ORDERED: BISACODYL SUPP (10 MG) 10 MG/SUPP.RECT SUPP.RECT RC PRN (07:30)
--- NOTE | 2019-10-28 08:00 | NUR ---
RN OPENING NOTE RECEIVED PATIENT IN BED. PT. WITH A TRACHEOSTOMY, VENT SETTING ORDERED. OPEN EYES, BUT NOT FOLLOW ANY COMMAND. SKIN WARM AND DRY TO TOUCH. LOWER EXTREMITIES SEVERELY CONTRACTED. G TUBE FEEDING AT 50CC PER HOUR RUNNING, KEEP HOB ELEVATED, NO RESIDUAL NOTED. ON TELE MONITOR, SR NOTED. PT. HAS R FOREARM HEPLOCK INTACT, FLUSHED WELL, ON IV FLUID ORDERED. VILLARREAL CATHETER, NO URINE OUTPUT NOTED. PT. BED LOCKED, AND IN LOWEST POSITION. PLAN OF CARE DISCUSSED WITH PATIENT. ON ISOLATION TO RULE OUT COVID PER HOSPITAL PROTOCOL. WILL CONTINUE TO MONITOR.
[2019-10-28] MEDS: PANTOPRAZOLE 40 MG/PACK PACK GT SCH (09:31)
[2019-10-28] MEDS: VIT B CMPLX 3/FA/VIT C/BIOTIN 1 TAB TABLET GT SCH (09:31)
[2019-10-28] MEDS: ACIDOPHILUS/BULGARICUS 1 EACH TAB.CHEW GT SCH ×2 (09:31→21:58)
[2019-10-28] MEDS: ASCORBIC ACID 500 MG TABLET GT SCH (09:31)
[2019-10-28] MEDS: ZINC SULFATE 220 MG CAPSULE GT SCH (09:31)
[2019-10-28] MEDS: CHLORHEXIDINE GLUCONATE 15 ML UDC MM SCH ×2 (09:32→21:59)
[2019-10-28] MEDS: DOCUSATE SODIUM 100 MG CAPSULE PO SCH ×2 (09:32→16:05)
[2019-10-28] MEDS: MULTIVITAMINS,THERAGRAN 1 UDTAB TABLET GT SCH (09:32)
--- NOTE | 2019-10-28 12:00 | NUR ---
telesales manager note per tariq ok to get ua and remove duncan cath order carried out
--- NOTE | 2019-10-28 13:26 | NUR ---
outbound telemarketing representative note ua collected and Franco cath is removed as ordered
--- NOTE | 2019-10-28 14:00 | NUR ---
INTERNATIONAL ACCOUNT REPRESENTATIVE NOTE HD COMPLETED 1L OF FLUID OUT
[2019-10-28] MEDS: VANCOMYCIN 500 MG in IV D5W 100 ML IV PRN (16:47)
[2019-10-28 17:36] LABS: APPEARANCE,URINE CLOUDY (CLEAR); BILIRUBIN,URINE SMALL (NEGATIVE); BLOOD, URINE SMALL Ery/uL (NEGATIVE); COLOR,URINE BROWN (YELLOW); KETONES,URINE NEGATIVE (NEGATIVE); LEUKOCYTE ESTERASE ,URINE LARGE (NEGATIVE); NITRITE, URINE POSITIVE (NEGATIVE); PH,URINE 8.5 (5.0-8.0); PROTEIN,URINE >=300 mg/dl (NEGATIVE); UGLUCOSE NEGATIVE (NEGATIVE); UROBILINOGEN,URINE 0.2 EU/dL (0.2)
[2019-10-28 17:54] LABS: BACTERIA,URINE 4+ /HPF (None Seen); SQUAMOUS EPITHELIAL CELL,UR 0-2 /HPF (None Seen); TRIPLE PHOSPHATE CRYSTAL,UR Few /HPF (None Seen)
[2019-10-28 17:55] LABS: URINE AMORPHOUS PHOSPHATES Many /HPF (None Seen)
--- NOTE | 2019-10-28 18:25 | NUR ---
RN NOTE CALLED DR. SEWELL. NOTIFIED THAT BLOOD SUGAR WENT FROM 86 THIS AFTERNOON TO 76 AT 1800. ORDERED D5W AT 20CC/HR. ORDER CARRIED OUT. Addendum: 10/28/19 at 1839 by KEITH ORTIZ RN CORRECTION. D10W AT 20CC/HR
[2019-10-28] MEDS ORDERED: DEXTROSE 10% IN WATER 250 ML BAG IV PRN (19:00)
[2019-10-28] MEDS: IV NS 0.9% 1,000 ML IV PRN (22:02)
[2019-10-29] VITALS: BP 141/83
[2019-10-29] MEDS: BLOOD SUGAR DIAGNOSTIC 1 EACH STRIP IN SCH ×4 (01:22→17:32)
[2019-10-29] MEDS: INSULIN REGULAR, HUMAN 100 UNIT/ML 3 ML VIAL SQ PRN (01:23)
[2019-10-29] MEDS: PIPERACILLIN /TAZOBACTAM 2.25 G in IV D5W 50 ML IV SCH ×4 (01:24→23:44)
[2019-10-29 04:00] VITALS: BP 91/57
--- NOTE | 2019-10-29 05:21 | NUR ---
RT NOTES PT RECEIVED TRACHED ON [facility] VENT ON CHARTED SETTINGS. NO SIGNS OF RESP DISTRESS NOTED THROUGHOUT SHIFT. AIRWAY PATENT AND SECURED. MACHINERY MECHANIC DONE. PT SUCTIONED. HME CHANGED. ALARMS SET AND AUDIBLE. VENT PLUGGED INTO TO RED OUTLET. AMBUBAG AT BEDSIDE. Addendum: 10/29/19 at 0528 by KATIE ALEXANDER RT Amended: Links added.
[2019-10-29 07:01] LABS: BASOPHILS # (AUTO) 0.1 /CMM (0.0-0.2); BASOPHILS % (AUTO) 1.2 % (0.0-2.0); EOSINOPHILS % (AUTO) 4.2 % (0.0-6.0); HEMATOCRIT 31 % (39-51); HEMOGLOBIN 9.9 g/dL (13.5-17.5); LYMPHOCYTES # (AUTO) 1.2 /CMM (0.8-4.8); LYMPHOCYTES % (AUTO) 12.5 % (20.0-44.0); MEAN CORPUSCULAR HGB CONC 32 g/dl (31.0-36.0); MEAN CORPUSCULAR VOLUME 90 fL (80-96); MONOCYTES # (AUTO) 1.2 /CMM (0.1-1.30); MONOCYTES % (AUTO) 12.1 % (2.0-12.0); NEUTROPHILS # (AUTO) 6.9 /CMM (1.8-8.9); PLATELET COUNT (AUTO) 279 /CMM (150-450); RED BLOOD CELL COUNT(AUTO) 3.42 MIL/uL (4.5-6.0); WHITE BLOOD COUNT (AUTO) 9.8 K/uL (4.3-11.0)
[2019-10-29 07:11] LABS: ALBUMIN 2.4 g/dL (3.4-5.0); BILIRUBIN,TOTAL 0.5 mg/dL (0.2-1.0); CALCIUM, SERUM 9.1 mg/dL (8.5-10.1); CREATININE 7.2 mg/dL (0.6-1.3); MAGNESIUM 2.9 mg/dL (1.8-2.4); PHOSPHORUS 4.2 mg/dL (2.5-4.9); POTASSIUM 3.2 mmol/L (3.5-5.1); TOTAL PROTEIN, SERUM 6.7 g/dL (6.4-8.2)
[2019-10-29 08:00] VITALS: BP 102/43
[2019-10-29] MEDS: MULTIVITAMINS,THERAGRAN 1 UDTAB TABLET GT SCH (08:36)
[2019-10-29] MEDS: ZINC SULFATE 220 MG CAPSULE GT SCH (08:36)
[2019-10-29] MEDS: ACIDOPHILUS/BULGARICUS 1 EACH TAB.CHEW GT SCH ×2 (08:36→22:17)
[2019-10-29] MEDS: VIT B CMPLX 3/FA/VIT C/BIOTIN 1 TAB TABLET GT SCH (08:36)
[2019-10-29] MEDS: PANTOPRAZOLE 40 MG/PACK PACK GT SCH (08:36)
[2019-10-29] MEDS: CHLORHEXIDINE GLUCONATE 15 ML UDC MM SCH ×2 (08:36→22:17)
[2019-10-29] MEDS: DOCUSATE SODIUM 100 MG CAPSULE PO SCH ×2 (08:36→16:46)
[2019-10-29] MEDS: ASCORBIC ACID 500 MG TABLET GT SCH (08:36)
[2019-10-29 12:00] VITALS: BP 88/57
[2019-10-29] MEDS ORDERED: POTASSIUM CHLORIDE 20 MEQ POWDER PACKET NG SCH (12:30)
[2019-10-29] MEDS: POTASSIUM CHLORIDE 20 MEQ POWDER PACKET GT SCH (14:02)
[2019-10-29 16:00] VITALS: BP 78/55
[2019-10-29] MEDS: DAKINS QUARTER STRENGTH (0.125%) 480 ML BOTTLE TOP SCH (18:56)
--- NOTE | 2019-10-29 19:42 | NUR ---
Handoff with night team, LON Ribeiro. John Gamble RN
[2019-10-29 20:00] VITALS: BP_SYST 102; BP_SYST 94; BP_DIAS 55
[2019-10-29] MEDS: IV NS 0.9% 1,000 ML IV PRN (22:12)
[2019-10-30] VITALS (8 sets, daily range): BP systolic 94–125; BP diastolic 49–78
[2019-10-30] MEDS: BLOOD SUGAR DIAGNOSTIC 1 EACH STRIP IN SCH ×4 (00:22→17:04)
[2019-10-30] MEDS: INSULIN REGULAR, HUMAN 100 UNIT/ML 3 ML VIAL SQ PRN ×2 (00:23→07:07)
[2019-10-30 07:39] LABS: CALCIUM, SERUM 9.2 mg/dL (8.5-10.1); POTASSIUM 3.8 mmol/L (3.5-5.1)
[2019-10-30 07:49] LABS: CREATININE 8.2 mg/dL (0.6-1.3)
--- NOTE | 2019-10-30 08:00 | NUR ---
Tele/RN - Assessment Patient is obtunded, open eyes spontaneously, on vent dependent, setting as follows: AC 14, TV 500, FiO2 40% PEEP 0, no s/s of pain, tele shows SR. Patient just had HD treatment today 1.5 liters removed, RIJ HD cath intact. GTF Nepro at 50 ml/hr tolerated well, no residual seen. IVF NS at 50 ml/hr infusing well on the right leg with no signs of infiltration. Patient has multiple skin breakdown, will do wound care as ordered. Fall and aspiration precautions maintained. Contact precautions for MRSA nares initiated. Will continue with current medical management.
[2019-10-30] MEDS: PIPERACILLIN /TAZOBACTAM 2.25 G in IV D5W 50 ML IV SCH ×2 (08:01→16:10)
[2019-10-30] MEDS: ZINC SULFATE 220 MG CAPSULE GT SCH (08:12)
[2019-10-30] MEDS: CHLORHEXIDINE GLUCONATE 15 ML UDC MM SCH ×2 (08:12→21:56)
[2019-10-30] MEDS: MULTIVITAMINS,THERAGRAN 1 UDTAB TABLET GT SCH (08:12)
[2019-10-30] MEDS: ASCORBIC ACID 500 MG TABLET GT SCH (08:12)
[2019-10-30] MEDS: POTASSIUM CHLORIDE 20 MEQ POWDER PACKET GT SCH (08:12)
[2019-10-30] MEDS: VIT B CMPLX 3/FA/VIT C/BIOTIN 1 TAB TABLET GT SCH (08:13)
[2019-10-30] MEDS: PANTOPRAZOLE 40 MG/PACK PACK GT SCH (08:13)
[2019-10-30] MEDS: ACIDOPHILUS/BULGARICUS 1 EACH TAB.CHEW GT SCH ×2 (08:13→21:56)
[2019-10-30] MEDS: DOCUSATE SODIUM 100 MG CAPSULE PO SCH ×2 (08:13→16:09)
[2019-10-30] MEDS: MUPIROCIN OINT 2% 22 GM TUBE SCH ×2 (09:49→21:56)
[2019-10-30] MEDS: DAKINS QUARTER STRENGTH (0.125%) 480 ML BOTTLE TOP SCH (09:51)
[2019-10-30] MEDS: SILVER SULFADIAZINE 50 GM JAR TP SCH (09:53)
--- NOTE | 2019-10-30 09:55 | NUR ---
WOUND CARE CONSULT: PT FOLLOWED BY SURGICAL AND PODIATRY TEAMS FOR WOUND CARE. DEFER TO SURGICAL TEAMS FOR WOUND TREATMENT PLAN. PT ON FIRST STEP LOW AIRLOSS MATTRESS. ALL SKIN PROTECTION MEASURES IN PLACE AND DISCUSSED WITH NURSING STAFF. WILL SEE PRN.
[2019-10-30] MEDS ORDERED: Z GUARD REMEDY 2 OZ OINT TP PRN (10:00)
[2019-10-30] MEDS: Z GUARD REMEDY 2 OZ OINT TP SCH (10:26)
[2019-10-30] MEDS: VANCOMYCIN 500 MG in IV D5W 100 ML IV PRN (12:25)
[2019-10-30] MEDS: IV NS 0.9% 1,000 ML IV PRN (17:59)
--- NOTE | 2019-10-30 18:25 | NUR ---
Tele/RN - End of shift summary No significant change in condition, remain afebrile, without distress on the ventilator, tolerating tube feeding well, no residual noted. Will endorse to night RN accordingly.
[2019-10-30] MEDS: NEPRO 1,000 ML BOTTLE GT PRN (18:40)
[2019-10-31] VITALS: BP 105/71
[2019-10-31] MEDS: PIPERACILLIN /TAZOBACTAM 2.25 G in IV D5W 50 ML IV SCH ×4 (00:59→23:34)
[2019-10-31] MEDS: BLOOD SUGAR DIAGNOSTIC 1 EACH STRIP IN SCH ×5 (00:59→23:33)
--- NOTE | 2019-10-31 03:24 | NUR ---
RT NOTE Pt rec'd trached on [facility] vent on AC mode. Pt shows no signs of resp distress or sob. Trach is patent and secured. Sx'd for thick mod amt of pale yellow secretions. Alarms are set and audible . Vent Plugged into red outlet. Ambu bag bedside. Will continue to monitor. Addendum: 10/31/19 at 0325 by EFRAIN PATTERSON RT Amended: Links added.
[2019-10-31 04:00] VITALS: BP 106/71
--- NOTE | 2019-10-31 05:34 | NUR ---
REPORT GIVEN TO JOSE FORREST IN [facility] PATIENT TO BE TRANSFERRED TO RM. 319 WITH RESPIRATORY THERAPIST.
--- NOTE | 2019-10-31 06:00 | NUR ---
TELE/RN NOTES: BS FOR 0600 IS 95. NO INSULIN GIVEN PER SLIDING SCALE.
--- NOTE | 2019-10-31 06:10 | NUR ---
TELE/RN NOTES: REPORT GIVEN BY YAKOV FORREST. PATIENT WAS A TRANSFER FROM [facility] TO ROOM 319. ARRIVED TO THE UNIT AT 0610 VIA GURNEY WITH ACLS PROTOCOL. HE IS NON VERBAL, OBTUNDED AND OPEN EYES. NO SOB NOTED. BREATHING EVEN AND UNLABORED. ON VENT SETTINGS, PORTEX 8, AC/SIMV:14, TV:500. FIO2:40%. SATURATING AT 100%. INITIAL VITAL TAKEN. WNL. BP: 103/69. HR:110. TEMP:98.4 ON GTUBE FEEDING NEPRO RUNNING AT 50MLS/HR. IV ON THE RIGHT LEG #20G, AND RIGHT FA #20G WITH NS RUNNING AT 50MLS/HR. WOUND TREATMENT DONE. PER DIMENSION SPECIFICATION INSPECTOR RN YAKOV, THERE IS A WOUND ON THE PENIS DUE TO LONG USE OF VILLARREAL CATH. PICTURE NEEDS TO BE TAKEN. ENDORSED TO DAY SHIFT TO TAKE A PICTURE. BELONGINGS CHECKED. SAFETY MEASURES IN PLACE. BED IN LOW, LOCKED POSITION WITH SR UP X2. WILL ENDORSE TO DAY SHIFT FOR DENNIS.
[2019-10-31] MEDS: INSULIN REGULAR, HUMAN 100 UNIT/ML 3 ML VIAL SQ PRN ×2 (06:30→17:57)
[2019-10-31 06:46] LABS: CALCIUM, SERUM 9.4 mg/dL (8.5-10.1); POTASSIUM 3.9 mmol/L (3.5-5.1)
[2019-10-31 07:00] LABS: CREATININE 7.7 mg/dL (0.6-1.3)
--- NOTE | 2019-10-31 07:56 | NUR ---
TELE/RN OPENING NOTES RECEIVED PATIENT ON BED. PATIENT IS NON VERBAL, OBTUNDED AND OPEN EYES. NO SOB NOTED. BREATHING EVEN AND UNLABORED. ON VENT SETTINGS, PORTEX 8, AC/SIMV:14, TV:500. FIO2:40%. SATURATING AT 100%. PATIENT IS ON GTUBE FEEDING NEPRO RUNNING AT 50MLS/HR. IV ON THE RIGHT LEG #20G, AND RIGHT FA #20G WITH NS RUNNING AT 50MLS/HR. SAFETY MEASURES IN PLACE. BED IN LOW, LOCKED POSITION WITH SR UP X2. CALL LIGHT WITHIN REACH. WILL CONTINUE TO MONITOR.
[2019-10-31 08:00] VITALS: BP 111/75
[2019-10-31] MEDS: PANTOPRAZOLE 40 MG/PACK PACK GT SCH (09:09)
[2019-10-31] MEDS: VIT B CMPLX 3/FA/VIT C/BIOTIN 1 TAB TABLET GT SCH (09:10)
[2019-10-31] MEDS: ASCORBIC ACID 500 MG TABLET GT SCH (09:11)
[2019-10-31] MEDS: MULTIVITAMINS,THERAGRAN 1 UDTAB TABLET GT SCH (09:15)
[2019-10-31] MEDS: ZINC SULFATE 220 MG CAPSULE GT SCH (09:15)
[2019-10-31] MEDS: DOCUSATE SODIUM 100 MG CAPSULE PO SCH ×2 (09:16→16:30)
[2019-10-31] MEDS: POTASSIUM CHLORIDE 20 MEQ POWDER PACKET GT SCH (09:16)
[2019-10-31] MEDS: CHLORHEXIDINE GLUCONATE 15 ML UDC MM SCH ×2 (09:31→20:48)
[2019-10-31] MEDS: SILVER SULFADIAZINE 50 GM JAR TP SCH (09:32)
[2019-10-31] MEDS: Z GUARD REMEDY 2 OZ OINT TP SCH (09:32)
[2019-10-31] MEDS: ACIDOPHILUS/BULGARICUS 1 EACH TAB.CHEW GT SCH ×2 (09:32→20:48)
[2019-10-31] MEDS: MUPIROCIN OINT 2% 22 GM TUBE SCH ×2 (09:33→20:51)
[2019-10-31] MEDS: DAKINS QUARTER STRENGTH (0.125%) 480 ML BOTTLE TOP SCH (09:33)
[2019-10-31] MEDS: HYDROCORTISONE SOD SUCCINATE 100 MG/2 ML VIAL IV SCH ×3 (09:53→16:30)
--- NOTE | 2019-10-31 11:48 | NUR ---
TELE/RN NOTES BS 89 MG/DL 0 COVERAGE
[2019-10-31 16:00] VITALS: BP 103/71
[2019-10-31] MEDS: IV NS 0.9% 1,000 ML IV PRN (16:31)
[2019-10-31] MEDS: PROSOURCE / PROSTAT (PYXIS) 30 ML UDC GT SCH (16:32)
[2019-10-31] MEDS: NEPRO 1,000 ML BOTTLE GT PRN (18:22)
--- NOTE | 2019-10-31 19:20 | NUR ---
TELE/RN OPENING NOTE WRITTEN REPORT RECIEVED FROM KRYSTAL FORREST. PATIENT IS SCHEDULED FOR SERIAL DEBRIDEMENT OF BILATERAL BUTOCKS AND CONSENT IS NEEDED. PATIENT IS OBTUNDED, NON VERBAL AND OPEN EYES TO TOUCH. NO APPARENT RESPIRATORY DISTRESS NOTED. PATIENT IS ON VENTILATOR AT THE PRESCRIBED SETTING WITH A RATE OF 14. IV ACCESS RIGHT FOREARM # 20G PATENT AND INTACT. IVF OF NSRUNNING AT 50 ML/HR ON AND INFUSING NO S/S OF INFILTRATION. PATIENT IN NO APPARENT PAIN OR DISCOMFORT. PATIENT ON AIR MATTRESS AND SKIN PROTECTION PROTOCOL TO BE TURNED EVERY 2 HOURS. BED LOWEST POSITION AND LOCKED. CALL LIGHT PLACED WITH IN REACH, ALL ALARMS CHECKED AND FUNCTIONAL TELE MONITORING HEART AT 100 ST. NEPRO INFUSING AT 50 ML PER HOUR ORDERED. WILL CONT TO MONITOR.
--- NOTE | 2019-10-31 19:38 | NUR ---
TELE/RN CLOSING NOTES PATIENT IS ON BED. PATIENT IS OBTUNDED, NON VERBAL AND OPEN EYES. NO APPARENT RESPIRATORY DISTRESS NOTED. PATIENT IS ON VENTILATOR AT THE PRESCRIBED SETTING. IV ACCESS RIGHT FOREARM # 20G PATENT AND INTACT. IVF OF NS 1L AT 50 ML/HR ON AND INFUSING WELL. NO S/S OF PAIN/DISCOMFORT AT THIS TIME. SEEN AND EXAMINED BY MD WITH ORDERS AND NOTED. ALL DUE MEDS WAS GIVEN. KEPT PATIENT CLEAN AND DRY THE WHOLE SHIFT. CHECKED AND TURNED PATIENT EVERY 2 HOURS. BED LOWEST POSITION AND LOCKED. CALL LIGHT WITHIN REACH. WILL ENDORSED TO PLANT ENGINEERING SUPERVISOR FOR DENNIS.
[2019-10-31 20:00] VITALS: BP 118/85
--- NOTE | 2019-10-31 20:10 | NUR ---
CONSENT FOR DEBRIDEMENT OF BILATERAL BUTTOCKS SPOKE WITH CLASSI MCNEIL PTS DAUGHTER REGUARDING DOCTORS INTENTION TO PERFORM SERIAL DEBRIDEMNT OF WOUNDS BILATERAL BUTTOCKS WITH FOTIADIS CONSENT GIVEN. CONSENT CONFIRMED WITH NURSE RAYMOND CARBALLO.
[2019-11-01] VITALS: BP 126/72
[2019-11-01 04:00] VITALS: BP 127/82
--- NOTE | 2019-11-01 06:30 | NUR ---
rn pm closing note pt still in no apparent distress. vs stable wnl. bed down locked. pat still on mech vent. bed down locked wound care rendered as ordered. tube feeding runing at 50 ml per hour no residual noted. alll alarms audible spo2 reading 100% cardiac cath lab radiology technologist reads. 106.
[2019-11-01] MEDS: BLOOD SUGAR DIAGNOSTIC 1 EACH STRIP IN SCH ×3 (06:58→17:33)
[2019-11-01] MEDS: INSULIN REGULAR, HUMAN 100 UNIT/ML 3 ML VIAL SQ PRN (06:59)
[2019-11-01 08:00] VITALS: BP 124/80
[2019-11-01] MEDS: DOCUSATE SODIUM 100 MG CAPSULE PO SCH ×2 (08:23→16:02)
[2019-11-01] MEDS: CHLORHEXIDINE GLUCONATE 15 ML UDC MM SCH ×2 (08:23→21:19)
[2019-11-01] MEDS: MULTIVITAMINS,THERAGRAN 1 UDTAB TABLET GT SCH (08:23)
[2019-11-01] MEDS: ASCORBIC ACID 500 MG TABLET GT SCH (08:23)
[2019-11-01] MEDS: POTASSIUM CHLORIDE 20 MEQ POWDER PACKET GT SCH (08:23)
[2019-11-01] MEDS: PANTOPRAZOLE 40 MG/PACK PACK GT SCH (08:23)
[2019-11-01] MEDS: ACIDOPHILUS/BULGARICUS 1 EACH TAB.CHEW GT SCH ×2 (08:23→10:28)
[2019-11-01] MEDS: ZINC SULFATE 220 MG CAPSULE GT SCH (08:23)
[2019-11-01] MEDS: HYDROCORTISONE SOD SUCCINATE 100 MG/2 ML VIAL IV SCH ×3 (08:23→16:02)
[2019-11-01] MEDS: PIPERACILLIN /TAZOBACTAM 2.25 G in IV D5W 50 ML IV SCH (08:24)
[2019-11-01] MEDS: DAKINS QUARTER STRENGTH (0.125%) 480 ML BOTTLE TOP SCH (08:25)
[2019-11-01] MEDS: SILVER SULFADIAZINE 50 GM JAR TP SCH (08:25)
[2019-11-01] MEDS: Z GUARD REMEDY 2 OZ OINT TP SCH (08:26)
[2019-11-01] MEDS: PROSOURCE / PROSTAT (PYXIS) 30 ML UDC GT SCH ×3 (08:26→16:03)
[2019-11-01] MEDS: MUPIROCIN OINT 2% 22 GM TUBE SCH ×2 (08:26→21:19)
[2019-11-01] MEDS: VIT B CMPLX 3/FA/VIT C/BIOTIN 1 TAB TABLET GT SCH (09:00)
--- NOTE | 2019-11-01 09:38 | NUR ---
RN NOTES PT RECEIVING HD. PRE-DIALYSIS VANCO TROUGH AT 22. NO VANCOMYCIN TO BE GIVEN FOLLOWING HD.
[2019-11-01 10:27] LABS: CALCIUM, SERUM 9.2 mg/dL (8.5-10.1); CREATININE 7.4 mg/dL (0.6-1.3); POTASSIUM 3.9 mmol/L (3.5-5.1)
[2019-11-01 12:00] VITALS: BP 128/88
[2019-11-01] MEDS ORDERED: CEFEPIME 1 GM in IV D5W 50 ML IV SCH (15:00)
[2019-11-01 16:00] VITALS: BP 131/83
--- NOTE | 2019-11-01 19:30 | NUR ---
TOW BAR DRIVER OPENING NOTE RECEIVED PATIENT IN BED. NONVERBAL, OPENS EYES. ON MECHANICAL VENTILATOR, PORTEX 8, AC 14, TV 400 FIO2 40%. NO S/S PAIN AT THIS ITME. EXTERNAL TELE READS SR HR 93. IN NO APPARENT DISTRESS. IV ACCESS IN LFA #20 RUNNING NS50ML/HR. LEFT SUBCLAVIAN HD CATH NOTED. GTUBE IS PRESENT, RESIDUAL 10ML, FLUSHED WITH 60ML NO RESISTANCE, TUBE FEEDING RUNNING NEPRO @50ML/HR. BED IS LOW AND LOCKED, HOB ELEVATED IN SEMI FOWLERS, SIDE RAILS UP X2, ON KCI MATTRASS, EXTREMETIES OFFLOADED, DAIN LIGHT WITHIN REACH. WILL CONTINUE TO MONITOR.
[2019-11-01 20:00] VITALS: BP 124/50
[2019-11-01] MEDS: VANCOMYCIN 500 MG in IV D5W 100 ML IV PRN (21:16)
[2019-11-01] MEDS: NEPRO 1,000 ML BOTTLE GT PRN (21:17)
[2019-11-01] MEDS: IV NS 0.9% 1,000 ML IV PRN (21:17)
--- NOTE | 2019-11-01 21:29 | NUR ---
RESTAURANT FRONT MANAGER NOTE ADMINISTERED VANCO DOSE PER PHARMACY D/T HD DONE TODAY.
[2019-11-02] VITALS: BP 141/78
--- NOTE | 2019-11-02 00:05 | NUR ---
RT NOTE PT RECEIVED TRACHED ON MECHANICAL VENTILATION. CUFF CHECKED VIA CARTON MAKER. SX DONE, TRACH SECURED AND PATENT. ALARMS ON AND AUDIBLE. VENT PLUGGED TO RED OUTLET. PT CONNECTED TO CONT. PULSE OX. NO DISTRESS NOTED. WILL MONITOR T/O SHIFT. Addendum: 11/02/19 at 0006 by USAMA JOHNSON RT Amended: Links added.
[2019-11-02] MEDS: BLOOD SUGAR DIAGNOSTIC 1 EACH STRIP IN SCH ×4 (00:20→17:50)
[2019-11-02 03:46] VITALS: BP 140/91
--- NOTE | 2019-11-02 06:44 | NUR ---
BLANKET FOLDER CLOSING NOTE PATIENT IN BED. NONVERBAL, OPENS EYES. ON MECHANICAL VENTILATOR, PORTEX 8, AC 14, TV 400 FIO2 40%. NO S/S PAIN. EXTERNAL TELE READS SR HR 93. NO DISTRESS NOTED. IV ACCESS MAINTAINED IN LFA #20 RUNNING NS50ML/HR. LEFT SUBCLAVIAN HD CATH NOTED. GTUBE IS MAINTAINED RUNNING NEPRO @50ML/HR. BED REMAINS LOW AND LOCKED, HOB ELEVATED IN SEMI FOWLERS, SIDE RAILS UP X2, ON KCI MATTRESS, EXTREMITIES OFFLOADED, CALL LIGHT WITHIN REACH. WILL ENDORSE TO NEXT SHIFT
--- NOTE | 2019-11-02 07:30 | NUR ---
Tele/RN Opening note Received patient in bed, non verbal, obtunded, able to responds physical stimuli. Pt does no appears pain or any discomfort. Skin is warm to touch, kept clean/dry, intact IV site. Pt on ventilator, no respiratory distress observed, respiratory even and unlabored. Keep low position of the bed with locked wheel and head of bed for secure airway. Call light within reach, will continue to monitor.
[2019-11-02 08:00] VITALS: BP 121/74
[2019-11-02] MEDS: CHLORHEXIDINE GLUCONATE 15 ML UDC MM SCH ×2 (08:10→22:30)
[2019-11-02] MEDS: ACIDOPHILUS/BULGARICUS 1 EACH TAB.CHEW GT SCH ×2 (08:10→22:30)
[2019-11-02] MEDS: DOCUSATE SODIUM 100 MG CAPSULE PO SCH ×2 (08:10→17:50)
[2019-11-02] MEDS: ASCORBIC ACID 500 MG TABLET GT SCH (08:10)
[2019-11-02] MEDS: PROSOURCE / PROSTAT (PYXIS) 30 ML UDC GT SCH ×3 (08:10→17:50)
[2019-11-02] MEDS: VIT B CMPLX 3/FA/VIT C/BIOTIN 1 TAB TABLET GT SCH (08:11)
[2019-11-02] MEDS: POTASSIUM CHLORIDE 20 MEQ POWDER PACKET GT SCH (08:11)
[2019-11-02] MEDS: HYDROCORTISONE SOD SUCCINATE 100 MG/2 ML VIAL IV SCH ×3 (08:11→17:50)
[2019-11-02] MEDS: ZINC SULFATE 220 MG CAPSULE GT SCH (08:11)
[2019-11-02] MEDS: MULTIVITAMINS,THERAGRAN 1 UDTAB TABLET GT SCH (08:11)
[2019-11-02] MEDS: PANTOPRAZOLE 40 MG/PACK PACK GT SCH (08:11)
[2019-11-02] MEDS: Z GUARD REMEDY 2 OZ OINT TP SCH (08:12)
[2019-11-02] MEDS: MUPIROCIN OINT 2% 22 GM TUBE SCH ×2 (08:12→22:30)
[2019-11-02] MEDS: SILVER SULFADIAZINE 50 GM JAR TP SCH (08:13)
[2019-11-02] MEDS: DAKINS QUARTER STRENGTH (0.125%) 480 ML BOTTLE TOP SCH (08:13)
[2019-11-02 08:15] LABS: CALCIUM, SERUM 9.5 mg/dL (8.5-10.1); CREATININE 7.3 mg/dL (0.6-1.3); POTASSIUM 4.3 mmol/L (3.5-5.1)
[2019-11-02 12:00] VITALS: BP 128/78
--- NOTE | 2019-11-02 12:00 | NUR ---
Right foot wound debridement done by Dr. Harper.
--- NOTE | 2019-11-02 13:33 | NUR ---
RT NOTE PT RCVD TRACH'D ON MECHANICAL VENT WITH CHARTED SETTINGS. SX DONE. PT TRACH IS PATENT AND SECURE. VENT ALARMS ARE ON AND AUDIBLE. VENT PLUGGED INTO RED OUTLET. AMBU BAG AT BEDSIDE. NO SOB NOTED. Addendum: 11/02/19 at 1334 by PANKAJ NASH RT Amended: Links added.
[2019-11-02] MEDS: NEPRO 1,000 ML BOTTLE GT PRN (14:27)
[2019-11-02 16:00] VITALS: BP 127/81
[2019-11-02] MEDS: CEFEPIME 0.5 GM in IV D5W 50 ML IV SCH (16:35)
--- NOTE | 2019-11-02 18:30 | NUR ---
MS/RN Closing note Patient is on bed, comfortably, does no appears pain or any discomfort. Skin is warm to touch, kept clean/dry, intact new IV site, dressing change provided. Respiratory even and unlabored on vent machine, no distress observed. Keep low position of the bed with locked wheel and elevated HOB for secure airway. Call light within reach, will continue to monitor.
[2019-11-02 20:00] VITALS: BP 122/76
[2019-11-02] MEDS: IV NS 0.9% 1,000 ML IV PRN (21:24)
--- NOTE | 2019-11-02 22:59 | NUR ---
RT NOTE PT RECEIVED TRACHED ON MECHANICAL VENTILATION. CUFF CHECKED VIA PET COUNSELOR. SX DONE, TRACH SECURED AND PATENT. ALARMS ON AND AUDIBLE. VENT PLUGGED TO RED OUTLET. PT CONNECTED TO CONT. PULSE OX. NO DISTRESS NOTED. WILL MONITOR T/O SHIFT. Addendum: 11/02/19 at 2300 by USAMA JOHNSON RT Amended: Links added.
[2019-11-03 00:08] VITALS: BP 138/78
[2019-11-03] MEDS: BLOOD SUGAR DIAGNOSTIC 1 EACH STRIP IN SCH ×4 (00:19→17:35)
[2019-11-03 04:01] VITALS: BP 109/66
--- NOTE | 2019-11-03 05:46 | NUR ---
MS/TELE/RN MORNING CARE WAS DONE, TOTAL LINEN CHANGE RENDERED, ORAL CARE, WOUND CARE OF THE SACRUM AND RT. BUTTOCK WOUNDS WERE PROVIDED, REPOSITIONED TO COMFORT, HOB ELEVATED, WILL CONTINUE TO MONITOR.
--- NOTE | 2019-11-03 06:19 | NUR ---
MS/TELE/RN PATIENT APPEAR SLEEPING, APPEAR COMFORTABLE, NO DISTRESS NOTED, HOB ELEVATED,GT FEEDING INFUSING, ALL NEEDS ATTENDED AT THIS TIME, WILL CONTINUE TO MONITOR.
--- NOTE | 2019-11-03 07:30 | NUR ---
PT RECEIVED RESTING COMFORTABLY IN BED WITH EYES CLOSED. NO S/S OR C/O PAIN OR DISTRESS NOTED. SIDE RAILS UP X2, CALL LIGHT LEFT WITHIN REACH. WILL CONTINUE PLAN OF CARE.
[2019-11-03 08:00] VITALS: BP 131/71
[2019-11-03] MEDS: VIT B CMPLX 3/FA/VIT C/BIOTIN 1 TAB TABLET GT SCH (09:00)
[2019-11-03] MEDS: POTASSIUM CHLORIDE 20 MEQ POWDER PACKET GT SCH (09:00)
[2019-11-03] MEDS: DOCUSATE SODIUM 100 MG CAPSULE PO SCH ×2 (09:00→17:35)
[2019-11-03] MEDS: PANTOPRAZOLE 40 MG/PACK PACK GT SCH (09:00)
[2019-11-03] MEDS: ASCORBIC ACID 500 MG TABLET GT SCH (09:00)
[2019-11-03] MEDS: CHLORHEXIDINE GLUCONATE 15 ML UDC MM SCH ×2 (09:00→21:56)
[2019-11-03] MEDS: MULTIVITAMINS,THERAGRAN 1 UDTAB TABLET GT SCH (09:00)
[2019-11-03] MEDS: ACIDOPHILUS/BULGARICUS 1 EACH TAB.CHEW GT SCH ×2 (09:00→21:57)
[2019-11-03] MEDS: ZINC SULFATE 220 MG CAPSULE GT SCH (09:00)
[2019-11-03] MEDS: HYDROCORTISONE SOD SUCCINATE 100 MG/2 ML VIAL IV SCH ×3 (09:01→17:35)
[2019-11-03] MEDS: PROSOURCE / PROSTAT (PYXIS) 30 ML UDC GT SCH ×3 (09:16→17:35)
[2019-11-03] MEDS: MUPIROCIN OINT 2% 22 GM TUBE SCH ×2 (09:16→22:05)
[2019-11-03] MEDS: DAKINS QUARTER STRENGTH (0.125%) 480 ML BOTTLE TOP SCH (09:16)
[2019-11-03] MEDS: Z GUARD REMEDY 2 OZ OINT TP SCH (09:16)
[2019-11-03] MEDS: SILVER SULFADIAZINE 50 GM JAR TP SCH (09:17)
[2019-11-03] MEDS: CEFEPIME 0.5 GM in IV D5W 50 ML IV SCH (15:36)
[2019-11-03 16:00] VITALS: BP 137/82
--- NOTE | 2019-11-03 18:50 | NUR ---
CHANGE OF SHIFT REPORT PT RESTING COMFORTABLY IN BED. NO S/S OR C/O PAIN OR DISTRESS NOTED. SIDE RAILS UP X2, CALL LIGHT LEFT WITHIN REACH. PT KEPT CLEAN, DRY, AND COMFORTABLE. NO SIGNIFICANT CHANGES SINCE PREVIOUS SHIFT. WILL GIVE REPORT TO RUBEN FORREST.
[2019-11-03] MEDS: IV NS 0.9% 1,000 ML IV PRN (19:38)
--- NOTE | 2019-11-03 19:45 | NUR ---
RT NOTE PT RECEIVED TRACHED ON MECHANICAL VENTILATION. CUFF CHECKED VIA ICE GUARD INSPECTOR. AMBU BAG @ BEDSIDE. SX DONE, TRACH SECURED AND PATENT. ALARMS ON AND AUDIBLE. NO DISTRESS NOTED. WILL MONITOR T/O SHIFT. Addendum: 11/03/19 at 1945 by JOSE GONZALEZ RT Amended: Links added.
--- NOTE | 2019-11-03 19:59 | NUR ---
MS/TELE/RN PATIENT IS AWAKE, NON VERBAL, MECHANICAL VENTILATOR WORKING WELL, IVF/GT FEEDING INFUSING WELL, HOB ELEVATED, CALL LIGHT IN REACH. WILL MONITOR.
[2019-11-03 20:37] VITALS: BP 140/86
[2019-11-03] MEDS: VANCOMYCIN 500 MG in IV D5W 100 ML IV PRN (21:46)
[2019-11-04] VITALS: BP 97/50
[2019-11-04] MEDS: BLOOD SUGAR DIAGNOSTIC 1 EACH STRIP IN SCH ×4 (00:41→17:21)
[2019-11-04 04:03] VITALS: BP 118/57
--- NOTE | 2019-11-04 05:13 | NUR ---
MS/YONI/RN MORNING CARE WAS DONE, WOUND CARE WAS DONE ORDERED, TOTAL LINEN CHANGED RENDERED. REPOSITIONED TO COMFORT, HOB ELEVATED. WILL CONTINUE TO MONITOR.
--- NOTE | 2019-11-04 06:28 | NUR ---
MS/TELE/RN PATIENT IS AWAKE, COMFORTABLE, NO SIGNS OF DISTRESS NOTED, HOB ELEVATED, GTUBE FEEDING INFUSING, MECH VENT WORKING WELL, ALL NEEDS ATTENDED AT THIS TIME, WILL CONTINUE TO MONITOR.
--- NOTE | 2019-11-04 07:30 | NUR ---
WATER FILTER CLEANER NOTES PT IN BED, AWAKE, NON VERBAL, NO SIGN OF PAIN, NOT IN DISTRESS, IV FLUIDS INFUSING WELL, KEPT WARM AND COMFORTABLE IN BED.
[2019-11-04 08:00] VITALS: BP 145/89
[2019-11-04] MEDS: MUPIROCIN OINT 2% 22 GM TUBE SCH ×2 (08:52→21:14)
[2019-11-04] MEDS: PROSOURCE / PROSTAT (PYXIS) 30 ML UDC GT SCH ×3 (08:52→16:03)
[2019-11-04] MEDS: CHLORHEXIDINE GLUCONATE 15 ML UDC MM SCH ×2 (08:52→21:08)
[2019-11-04] MEDS: PANTOPRAZOLE 40 MG/PACK PACK GT SCH (08:52)
[2019-11-04] MEDS: ZINC SULFATE 220 MG CAPSULE GT SCH (08:53)
[2019-11-04] MEDS: ASCORBIC ACID 500 MG TABLET GT SCH (08:53)
[2019-11-04] MEDS: POTASSIUM CHLORIDE 20 MEQ POWDER PACKET GT SCH (08:53)
[2019-11-04] MEDS: ACIDOPHILUS/BULGARICUS 1 EACH TAB.CHEW GT SCH ×2 (08:53→21:08)
[2019-11-04] MEDS: MULTIVITAMINS,THERAGRAN 1 UDTAB TABLET GT SCH (08:53)
[2019-11-04] MEDS: HYDROCORTISONE SOD SUCCINATE 100 MG/2 ML VIAL IV SCH ×3 (08:53→16:03)
[2019-11-04] MEDS: VIT B CMPLX 3/FA/VIT C/BIOTIN 1 TAB TABLET GT SCH (08:53)
[2019-11-04] MEDS: DOCUSATE SODIUM 100 MG CAPSULE PO SCH ×2 (08:53→16:03)
[2019-11-04] MEDS: DAKINS QUARTER STRENGTH (0.125%) 480 ML BOTTLE TOP SCH (08:54)
[2019-11-04] MEDS: Z GUARD REMEDY 2 OZ OINT TP SCH (08:54)
[2019-11-04] MEDS: SILVER SULFADIAZINE 50 GM JAR TP SCH (08:56)
[2019-11-04] MEDS: NEPRO 1,000 ML BOTTLE GT PRN (11:13)
[2019-11-04 12:00] VITALS: BP 138/86
--- NOTE | 2019-11-04 12:41 | NUR ---
LINEN ROOM WORKER NOTES PT IN BED, RESTING, NO SIGN OF PAIN, NOT IN DISTRESS, GT FEEDING INFUSING, TOLERATING WELL, DUE MEDS GIVEN, SEEN BY DR. PEACOCK.
[2019-11-04] MEDS: CEFEPIME 0.5 GM in IV D5W 50 ML IV SCH (14:02)
[2019-11-04 16:00] VITALS: BP 146/87
[2019-11-04] MEDS: IV NS 0.9% 1,000 ML IV PRN (17:30)
--- NOTE | 2019-11-04 18:37 | NUR ---
FITNESS SUPERVISOR NOTES PT IN BED, RESTING, NON VERBAL, NO SIGN OF PAIN, NO FACIAL GRIMACING, NOT IN DISTRESS, GT FEEDING INFUSING WELL, TURNED AND REPOSITIONED FOR COMFORT, WOUND TREATMENTS AND DRESSING CHANGE DONE, PM CARE PROVIDED, PM MEDS GIVEN.
[2019-11-05 00:10] VITALS: BP 139/82
[2019-11-05] MEDS: BLOOD SUGAR DIAGNOSTIC 1 EACH STRIP IN SCH ×4 (00:51→17:37)
[2019-11-05 04:00] VITALS: BP 152/93
--- NOTE | 2019-11-05 07:00 | NUR ---
BASIN FINISH OPERATOR TIG WELDER OPENING NOTE RECEIVED PT IN BED WITH HOB ELEVATED TO SEMI FOWLERS POSITION. NONVERBAL, OPENS EYES. PT ON MECHANICAL VENTILATOR, PORTEX 8, AC 14, TV 500 FIO2 40%. NO S/S PAIN AT THIS TIME. EXTERNAL TELEMETRY MEAT INSPECTOR READS SR HR 77. NO S/S OF ANY APPARENT DISTRESS NOTED. IV ACCESS IN LHAND G#22, INTACT, PATENT AND RUNNING NS @50ML/HR. LEFT SUBCLAVIAN HD CATH NOTED. G-TUBE IN PLACE, NO RESIDUAL NOTED, G-TUBE FEEDING RUNNING NEPRO @50ML/HR. PT ON KCI MATTRESS, EXTREMITIES OFF-LOADED. BED IN LOWEST LOCKED POSITION, BED ALARM ON, SIDE RAILS UP, , CALL LIGHT WITHIN REACH. WILL CONTINUE TO MONITOR.
--- NOTE | 2019-11-05 07:28 | NUR ---
JEWELSMITH CLOSING NOTES PT IN BED, RESTING, NON VERBAL, NO SIGN OF PAIN, NO FACIAL GRIMACING, NOT IN DISTRESS, GT FEEDING INFUSING WELL AT 50 ML PER HOUR, TURNED AND REPOSITIONED PER PROTOCOL WOUND TREATMENTS AND DRESSING CHANGE DONE AND NEW PICTURES TAKEN, PM CARE PROVIDED WILL ENDORSE TO ONCOMING SHIFT. TELE SR, VENT SETTINGS ORDERED PT IN NO APPARENT DISTRESS. SAT 99%
[2019-11-05] MEDS: PROSOURCE / PROSTAT (PYXIS) 30 ML UDC GT SCH ×3 (07:48→16:55)
[2019-11-05 08:24] VITALS: BP 138/74
[2019-11-05] MEDS: HYDROCORTISONE SOD SUCCINATE 100 MG/2 ML VIAL IV SCH ×3 (09:26→16:55)
[2019-11-05] MEDS: ASCORBIC ACID 500 MG TABLET GT SCH (09:27)
[2019-11-05] MEDS: ACIDOPHILUS/BULGARICUS 1 EACH TAB.CHEW GT SCH (09:27)
[2019-11-05] MEDS: ZINC SULFATE 220 MG CAPSULE GT SCH (09:27)
[2019-11-05] MEDS: DOCUSATE SODIUM 100 MG CAPSULE PO SCH ×2 (09:27→16:55)
[2019-11-05] MEDS: VIT B CMPLX 3/FA/VIT C/BIOTIN 1 TAB TABLET GT SCH (09:27)
[2019-11-05] MEDS: PANTOPRAZOLE 40 MG/PACK PACK GT SCH (09:27)
[2019-11-05] MEDS: CHLORHEXIDINE GLUCONATE 15 ML UDC MM SCH (09:27)
[2019-11-05] MEDS: POTASSIUM CHLORIDE 20 MEQ POWDER PACKET GT SCH (09:27)
[2019-11-05] MEDS: MULTIVITAMINS,THERAGRAN 1 UDTAB TABLET GT SCH (09:27)
[2019-11-05] MEDS: DAKINS QUARTER STRENGTH (0.125%) 480 ML BOTTLE TOP SCH (09:28)
[2019-11-05] MEDS: Z GUARD REMEDY 2 OZ OINT TP SCH (09:30)
[2019-11-05] MEDS: SILVER SULFADIAZINE 50 GM JAR TP SCH (09:31)
[2019-11-05] MEDS: MUPIROCIN OINT 2% 22 GM TUBE SCH (09:32)
--- NOTE | 2019-11-05 09:57 | NUR ---
RT NOTE PT RCVD TRACH'D ON MECHANICAL VENT WITH CHARTED SETTINGS. SX DONE. PT TRACH IS PATENT AND SECURE. VENT ALARMS ARE ON AND AUDIBLE. VENT PLUGGED INTO RED OUTLET. AMBU BAG AT BEDSIDE. NO SOB NOTED. Addendum: 11/05/19 at 0957 by PANKAJ NASH RT Amended: Links added.
[2019-11-05] MEDS ORDERED: ALLA266C2 TP (12:06)
[2019-11-05] MEDS ORDERED: Silver Sulfadiazine TP (12:06)
[2019-11-05] MEDS ORDERED: CEFE1PIG3 IV (12:06)
[2019-11-05] MEDS ORDERED: METH4TAB17 PO (12:06)
[2019-11-05] MEDS: CEFEPIME 0.5 GM in IV D5W 50 ML IV SCH (14:37)
[2019-11-05 16:10] VITALS: BP 137/48
--- NOTE | 2019-11-05 19:00 | NUR ---
CUSTOMER BUSINESS MANAGER CLOSING NOTE PT IN BED WITH HOB ELEVATED TO SEMI FOWLERS POSITION. NONVERBAL, OPENS EYES. PT REMAINED STABLE THROUGHOUT SHIFT. HEMODIALYSIS DONE TODAY WITH 2L OUTPUT. NO S/S PAIN AT THIS TIME. NO S/S OF ANY APPARENT DISTRESS NOTED. IV ACCESS IN LHAND G#22, INTACT, PATENT AND RUNNING NS @50ML/HR. LEFT SUBCLAVIAN HD CATH NOTED. G-TUBE IN PLACE, NO RESIDUAL NOTED, G-TUBE FEEDING RUNNING NEPRO @50ML/HR. SUCTIONING DONE NEEDED. WOUND CARE TREATMENT DONE PER ORDER. PT KEPT CLEAN AND DRY. PT ON KCI MATTRESS, EXTREMITIES OFF-LOADED. ALL NEEDS ATTENDED TO ANTICIPATED. BED IN LOWEST LOCKED POSITION, BED ALARM ON, SIDE RAILS UP, , CALL LIGHT WITHIN REACH. WILL CONTINUE TO MONITOR.
--- NOTE | 2019-11-05 19:46 | NUR ---
RN NOTES RECEIVED PATIENT WITH TATIANNA EMT AT BEDSIDE, DISCHARGE PAPER WORK ALL PREPARED BY AM NURSE. ALL NEEDS ATTENDED. IV ACCESS KEPT TO CONTINUE ANTIBIOTIC TREATMENT TO CENTER AT [facility]. ALL NEEDS ATTENDED. PATIENT LEFT THE UNIT AT 1930 IN A STABLE CONDITION. CHARGE NURSE AWARE OF DISCHARGE.
== END 2019-11-05 19:40 | DRG 711 ==
LOC: ER 13:46 → TELE1 18:01 → TELE-TD 10-28 01:11 → TELE1 10-28 07:46 → TELE-TD 10-28 18:24 → TELE1 10-29 07:54 → TELE 10-31 06:00
PROVIDERS: ADMIT Internal Medicine Nephrology; ATTEND Internal Medicine
DX: T80.211A Bloodstream infection due to central venous catheter, initial encounter (principal); R65.21 Severe sepsis with septic shock; G93.40 Encephalopathy, unspecified; L89.154 Pressure ulcer of sacral region, stage 4; Z99.11 Dependence on respirator [ventilator] status; A41.9 Sepsis, unspecified organism; J96.10 Chronic respiratory failure, unspecified whether with hypoxia or hypercapnia; L89.314 Pressure ulcer of right buttock, stage 4; L89.324 Pressure ulcer of left buttock, stage 4; E11.22 Type 2 diabetes mellitus with diabetic chronic kidney disease; I95.3 Hypotension of hemodialysis; R53.2 Functional quadriplegia; Z93.0 Tracheostomy status; E11.51 Type 2 diabetes mellitus with diabetic peripheral angiopathy without gangrene; I12.0 Hypertensive chronic kidney disease with stage 5 chronic kidney disease or end stage renal disease; R13.10 Dysphagia, unspecified; I69.354 Hemiplegia and hemiparesis following cerebral infarction affecting left non-dominant side; N18.6 End stage renal disease; N39.0 Urinary tract infection, site not specified; Z99.2 Dependence on renal dialysis; Z93.1 Gastrostomy status; Z79.4 Long term (current) use of insulin; K21.9 Gastro-esophageal reflux disease without esophagitis; Z79.51 Long term (current) use of inhaled steroids; Z79.899 Other long term (current) drug therapy; F03.90 Unspecified dementia, unspecified severity, without behavioral disturbance, psychotic disturbance, mood disturbance, and anxiety; E11.622 Type 2 diabetes mellitus with other skin ulcer; E11.621 Type 2 diabetes mellitus with foot ulcer; D64.9 Anemia, unspecified; E11.69 Type 2 diabetes mellitus with other specified complication; M86.671 Other chronic osteomyelitis, right ankle and foot; L97.419 Non-pressure chronic ulcer of right heel and midfoot with unspecified severity; L97.429 Non-pressure chronic ulcer of left heel and midfoot with unspecified severity; N48.5 Ulcer of penis; L98.9 Disorder of the skin and subcutaneous tissue, unspecified; Z74.09 Other reduced mobility; Y95 Nosocomial condition; S70.312A Abrasion, left thigh, initial encounter; X58.XXXA Exposure to other specified factors, initial encounter; Y92.9 Unspecified place or not applicable; M62.462 Contracture of muscle, left lower leg; M62.461 Contracture of muscle, right lower leg
CPT/HCPCS: 31720; 36415; 71045-TC; 80048-TC; 80053-TC; 80076-TC; 80202-TC; 81000-TC; 82533; 82962-TC; 83605-TC; 83735-TC; 84100-TC; 84484-TC; 85025-TC; 85730-TC; 86706; 87040-TC; 87081-TC; 87086-TC; 87186-TC; 87340; 90935-TC; 94003-TC; 94760-TC; 94762-TC; A4217; A6253; A6403; A6407; G0378; J0692; J1720; J1815; J2543; J3370; J3490; J7030; J7040; J7050; J7060

== ENCOUNTER 2019-12-13 12:48 | Inpatient (IN) | payer MEDICAID ==
[~2019-12-13] VITALS: Ht 172.7 cm; Wt 70.3 kg
[~2019-12-13 12:48] MED LIST changes: -ACET-2605 GT; +ALLA266C2 TP; -ATEN25TA GT; +CEFE1PIG3 IV; -MERO500V21 IV; +METH4TAB17 PO; +Silver Sulfadiazine TP
--- NOTE | 2019-12-13 12:48 | NUR ---
PT JONATHAN FROM [facility] FOR LOW BP AROUND 90S, PT IS AAOX0, ON MECHANICAL VENT VIA TRACH, HOOKED TO ACADEMIC SUPPORT ASSISTANT, KEPT RESTED AND COMFORTABLE, WILL CONTINUE TO MONITOR.
--- NOTE | 2019-12-13 12:50 | NUR ---
IV LINE ESTABLISHED BLOOD DRAWN AND SENT TO LAB.
--- NOTE | 2019-12-13 13:00 | NUR ---
RT AT BEDSIDE FOR VENT SET UP.
--- NOTE | 2019-12-13 13:06 | NUR ---
AT BEDSIDE FOR EVAL.
[2019-12-13 13:21] LABS: BASOPHILS # (AUTO) 0.1 /CMM (0.0-0.2); BASOPHILS % (AUTO) 0.8 % (0.0-2.0); EOSINOPHILS % (AUTO) 0.6 % (0.0-6.0); HEMATOCRIT 44 % (39-51); HEMOGLOBIN 13.7 g/dL (13.5-17.5); LYMPHOCYTES # (AUTO) 1.4 /CMM (0.8-4.8); LYMPHOCYTES % (AUTO) 8.5 % (20.0-44.0); MEAN CORPUSCULAR HGB CONC 31 g/dl (31.0-36.0); MEAN CORPUSCULAR VOLUME 94 fL (80-96); MONOCYTES # (AUTO) 1.9 /CMM (0.1-1.30); MONOCYTES % (AUTO) 11.2 % (2.0-12.0); NEUTROPHILS # (AUTO) 13.1 /CMM (1.8-8.9); NEUTROPHILS % (AUTO) 78.9 % (43.0-81.0); PLATELET COUNT (AUTO) 276 /CMM (150-450); RED BLOOD CELL COUNT(AUTO) 4.69 MIL/uL (4.5-6.0); WHITE BLOOD COUNT (AUTO) 16.6 K/uL (4.3-11.0)
[2019-12-13] MEDS ORDERED: IV NS 0.9% 500 ML BAG IV ONE (13:30)
[2019-12-13] MEDS ORDERED: ATEN25TA GT (13:37)
[2019-12-13] MEDS ORDERED: MIDO10TA PO (13:37)
[2019-12-13] MEDS ORDERED: TYL2T GT (13:37)
[2019-12-13] MEDS ORDERED: METH4TAB17 GT (13:37)
[2019-12-13] MEDS ORDERED: ACET-2605 GT (13:37)
[2019-12-13] MEDS ORDERED: ACET-868 GT (13:37)
--- NOTE | 2019-12-13 13:44 | NUR ---
CALLED MAIN LAB FOR COVID SWAB KIT.
[2019-12-13] MEDS ORDERED: ACETAMINOPHEN 650 MG/SUPP.RECT RC ONE ×2 (13:47→14:00)
--- NOTE | 2019-12-13 13:48 | NUR ---
rt note pt rec'd on mechanical vent, setting per transport RT from facility. pt awake and unable to follow commands, trach tube patent and secure. bvm at [facility]. no respiratory distress noted at this time. vent alarms on and audible. vent plugged in red outlet. will continue to monitor. Addendum: 12/13/19 at 1350 by HAIM GODWIN RT Amended: Links added.
[2019-12-13 13:53] LABS: ALANINE AMINOTRANSFERASE 227 U/L (12-78); ALBUMIN 3.1 g/dL (3.4-5.0); ALKALINE PHOSPHATASE 184 U/L (46-116); ASPARTATE AMINOTRANSFERASE 81 U/L (15-37); BILIRUBIN,DIRECT 0.1 mg/dL (0.0-0.2); BILIRUBIN,TOTAL 0.4 mg/dL (0.2-1.0); CALCIUM, SERUM 9.8 mg/dL (8.5-10.1); CARBON DIOXIDE 22 mmol/L (21-32); CHLORIDE 98 mmol/L (98-107); GLUCOSE 105 mg/dL (74-106); POTASSIUM 3.6 mmol/L (3.5-5.1); SODIUM SERUM 137 mmol/L (136-145)
[2019-12-13 13:55] LABS: CREATININE 9.5 mg/dL (0.6-1.3); UREA NITROGEN, BLOOD 120 mg/dL (7-18)
--- NOTE | 2019-12-13 13:55 | NUR ---
COVID SWAB DONE AND SENT TO LAB
[2019-12-13] MEDS ORDERED: CEFTRIAXONE 1GM BAG (ER ONLY) 50 ML IV ONE ×2 (13:58→14:00)
--- NOTE | 2019-12-13 13:59 | NUR ---
NURSING SUP GAVE TELE BED 106.
--- NOTE | 2019-12-13 14:02 | NUR ---
CORRECTION, PT WILL MAGGI GOING TO ROOM 116-1 PER NURSING SUP.
--- NOTE | 2019-12-13 14:10 | NUR ---
REPORT GIVEN TO LON PARKER FOR DENNIS.
[2019-12-13] MEDS ORDERED: MAG HYDROX/AL HYDROX/SIMETH 30 ML UDC PO PRN (14:30)
[2019-12-13] MEDS ORDERED: ONDANSETRON HCL/PF 4 MG/2 ML VIAL IVP PRN (14:30)
[2019-12-13] MEDS ORDERED: ZOLPIDEM TARTRATE 5 MG TABLET PO PRN (14:30)
[2019-12-13] MEDS ORDERED: MAGNESIUM HYDROXIDE 30 ML UDC PO PRN (14:30)
[2019-12-13] MEDS ORDERED: ACETAMINOPHEN 325 MG TABLET PO PRN ×2 (14:30→15:00)
[2019-12-13 15:00] VITALS: BP 107/77
[2019-12-13] MEDS ORDERED: BISACODYL SUPP (10 MG) 10 MG/SUPP.RECT SUPP.RECT RC PRN (15:00)
[2019-12-13] MEDS ORDERED: MIDODRINE HCL (5MG) 5 MG TABLET PO PRN (15:00)
[2019-12-13] MEDS ORDERED: Medication Not On Formulary EA (Ipratropium/Albuterol Sulfate (Duoneb 2.5-0.5 Mg/3 Ml So IH PRN (15:00)
[2019-12-13] MEDS ORDERED: DEXTROSE 50%-WATER 50 ML DISP.SYRIN IV PRN (15:00)
[2019-12-13] MEDS ORDERED: MAGNESIUM HYDROXIDE 30 ML UDC GT PRN (15:15)
[2019-12-13] MEDS ORDERED: ZOLPIDEM TARTRATE 5 MG TABLET GT PRN (15:30)
[2019-12-13] MEDS ORDERED: MIDODRINE HCL (5MG) 5 MG TABLET GT PRN (15:30)
[2019-12-13] MEDS ORDERED: IPRATROPIUM NEB FS 0.5 MG/2.5 ML AMPUL.NEB NEB PRN (15:30)
[2019-12-13] MEDS ORDERED: MAG HYDROX/AL HYDROX/SIMETH 30 ML UDC GT PRN (15:30)
[2019-12-13] MEDS ORDERED: ALBUTEROL FS 2.5 MG/0.5 ML VIAL.NEB NEB PRN (15:30)
[2019-12-13] MEDS ORDERED: DOCUSATE SODIUM 100 MG CAPSULE PO SCH (17:00)
[2019-12-13 17:44] VITALS: BP 107/77
[2019-12-13] MEDS: BLOOD SUGAR DIAGNOSTIC 1 EACH STRIP IN SCH ×2 (18:00→23:56)
[2019-12-13] MEDS ORDERED: Medication Not On Formulary EA (Ipratropium/Albuterol Sulfate (Duoneb 2.5-0.5 Mg/3 Ml So IH SCH (18:00)
[2019-12-13] MEDS: DOCUSATE SODIUM LIQ 100 MG/10 ML UDC GT SCH (18:29)
[2019-12-13] MEDS: PIPERACILLIN /TAZOBACTAM 2.25 G in IV D5W 50 ML IV SCH (18:30)
--- NOTE | 2019-12-13 19:00 | NUR ---
RN CLOSING NOTES PT. IN BED. PT. A&OX1, AROUSABLE TO TOUCH. PT. ON MECHANICAL VENT, TV OF 500, FIO2 40%, PEEP OF 5. PT. ON TELE MONITOR, SR NOTED. PT. G-TUBE IN PLACE, INTACT, PATENT. PT. R. AC #18, INTACT, PATENT, FLUSHED WELL. PT. SAFETY MAINTAINED. CALL LIGHT WITHIN REACH. WILL ENDORSE PLAN OF CARE TO ONCOMING NURSE
[2019-12-13] MEDS ORDERED: IPRATROPIUM NEB FS 0.5 MG/2.5 ML AMPUL.NEB NEB SCH (19:30)
[2019-12-13] MEDS ORDERED: ALBUTEROL FS 2.5 MG/0.5 ML VIAL.NEB NEB SCH (19:30)
[2019-12-13] MEDS: NEPRO 1,000 ML BOTTLE GT PRN (19:44)
[2019-12-13 19:55] VITALS: BP 112/72
[2019-12-13 20:00] VITALS: BP 112/72
--- NOTE | 2019-12-13 20:04 | NUR ---
RT NOTE PT RECEIVED TRACHED ON MECHANICAL VENTILATION. CUFF CHECKED VIA CARPET CLEANER. PORTEX [address] TX NOT GIVEN DUE TO CDC GUIDELINES, PENDING RESULTS. RN JEWEL AWARE TO CHANGE TX TO MDI. SX DONE, TRACH SECURED AND PATENT. ALARMS ON AND AUDIBLE. NO DISTRESS NOTED AT THIS TIME. VENT PLUGGED TO RED OUTLET. WILL MONITOR T/O SHIFT. Addendum: 12/13/19 at 2005 by USAMA JOHNSON RT Amended: Links added.
[2019-12-13] MEDS ORDERED: IPRATROPIUM BROMIDE 14 GM INHALER (or 12.9 GM) INH SCH (20:22)
[2019-12-13] MEDS ORDERED: ALBUTEROL SULFATE 8 GM HFA.AER.AD IH PRN ×2 (20:30→21:30)
[2019-12-13] MEDS: ALBUTEROL SULFATE 8 GM HFA.AER.AD IH SCH (21:18)
[2019-12-13] MEDS: VIT B CMPLX 3/FA/VIT C/BIOTIN 1 TAB TABLET GT SCH (21:18)
[2019-12-13] MEDS: IPRATROPIUM BROMIDE 14 GM INHALER (or 12.9 GM) INH SCH (21:18)
[2019-12-13] MEDS ORDERED: IPRATROPIUM BROMIDE 14 GM INHALER (or 12.9 GM) IH PRN (21:30)
[2019-12-14] VITALS (8 sets, daily range): BP systolic 94–124; BP diastolic 41–86
[2019-12-14] MEDS: PIPERACILLIN /TAZOBACTAM 2.25 G in IV D5W 50 ML IV SCH ×2 (01:23→10:00)
[2019-12-14] MEDS: IPRATROPIUM BROMIDE 14 GM INHALER (or 12.9 GM) INH SCH ×3 (01:24→19:45)
[2019-12-14] MEDS: ALBUTEROL SULFATE 8 GM HFA.AER.AD IH SCH ×3 (01:24→19:45)
--- NOTE | 2019-12-14 05:00 | NUR ---
RN NOTE PT NOTED TO HAVE VOMITED ABOUT 50ML OF EMESIS. NOTED WITH 20ML OF GASTRIC RESIDUAL. TUBE FEEDING PAUSED.
[2019-12-14] MEDS: BLOOD SUGAR DIAGNOSTIC 1 EACH STRIP IN SCH ×3 (05:49→17:40)
--- NOTE | 2019-12-14 06:00 | NUR ---
RN NOTE TUBE FEEDING RESUMED AND LOWERED TO 25ML/ HOUR. WILL MONITOR TOLERANCE.
[2019-12-14 06:14] LABS: BASOPHILS % (AUTO) 0.2 % (0.0-2.0); EOSINOPHILS % (AUTO) 0.2 % (0.0-6.0); HEMATOCRIT 46 % (39-51); HEMOGLOBIN 14.4 g/dL (13.5-17.5); LYMPHOCYTES % (AUTO) 4.5 % (20.0-44.0); MEAN CORPUSCULAR HGB CONC 32 g/dl (31.0-36.0); MEAN CORPUSCULAR VOLUME 92 fL (80-96); MONOCYTES % (AUTO) 8.7 % (2.0-12.0); NEUTROPHILS # (AUTO) 19.7 /CMM (1.8-8.9); NEUTROPHILS % (AUTO) 86.4 % (43.0-81.0); PLATELET COUNT (AUTO) 266 /CMM (150-450); RED BLOOD CELL COUNT(AUTO) 4.94 MIL/uL (4.5-6.0); WHITE BLOOD COUNT (AUTO) 22.8 K/uL (4.3-11.0)
[2019-12-14 06:26] LABS: PHOSPHORUS 5.2 mg/dL (2.5-4.9)
[2019-12-14 06:30] LABS: ALBUMIN 3.1 g/dL (3.4-5.0); BILIRUBIN,TOTAL 0.5 mg/dL (0.2-1.0); POTASSIUM 3.5 mmol/L (3.5-5.1); TOTAL PROTEIN, SERUM 8.2 g/dL (6.4-8.2)
[2019-12-14 06:33] LABS: CREATININE 10.7 mg/dL (0.6-1.3)
[2019-12-14 06:34] LABS: MAGNESIUM 4.1 mg/dL (1.8-2.4)
--- NOTE | 2019-12-14 06:41 | NUR ---
RN NOTE RECEIVED ALERTS FOR CRITICAL LABS: BUN 131. CREATININE 10.7. AND MAGNESIUM 4.1. NOTIFIED DR. RUTLEDGE AT BEDSIDE.
[2019-12-14] MEDS: Z GUARD REMEDY 2 OZ OINT TP SCH (08:08)
[2019-12-14] MEDS: methylPREDNISolone (4MG) 4 MG TABLET GT SCH (08:08)
[2019-12-14] MEDS: ASCORBIC ACID 500 MG TABLET GT SCH (08:08)
[2019-12-14] MEDS: DOCUSATE SODIUM LIQ 100 MG/10 ML UDC GT SCH ×2 (08:08→17:40)
[2019-12-14] MEDS: PANTOPRAZOLE 40 MG/PACK PACK GT SCH (08:08)
[2019-12-14] MEDS: ATENOLOL 25 MG TABLET GT SCH (08:10)
--- NOTE | 2019-12-14 18:17 | NUR ---
RT NOTE RECEIVED PATIENT ON VENT WITH ORDERED SETTINGS. ALARMS ON AND AUDIBLE. VENT PLUGGED IN TO RED OUTLET. TRACH TUBE IN PLACE, PATENT, AND SECURED WITH TRACH TIE. AMBU BAG BY THE BEDSIDE. PEEP TO 0 PER MD ORDERS, TITRATE O2 TO KEEP SPO2 ABOVE 94%.
--- NOTE | 2019-12-14 19:30 | NUR ---
RN OPENING NOTES Received the patient resting in bed. Patient is on ventilator. VS WNL. The patient is on external telemonitor. SR, HR 79. the patient has a FC, draining well. Gastric tube running on nepro at 40 cc/hr. IV site flushing well, RAC. wounds on sacral, B- buttocks, B- feet. Will provide wound care as ordered.All safety mechanisms are in place at this time. Bed locked in the lowest position, call light within reach. Will continue to monitor.
[2019-12-14] MEDS: DAKINS QUARTER STRENGTH (0.125%) 480 ML BOTTLE TOP SCH (20:42)
--- NOTE | 2019-12-14 21:16 | NUR ---
called the next to kin to get consent for wound debridement at 9:10pm, there was no response. Will call back later if possible.
--- NOTE | 2019-12-14 21:45 | NUR ---
consent for wound debridement has been provided by Ricardo Schuler ( Daughter of the patient).
--- NOTE | 2019-12-14 22:00 | NUR ---
Before giving Heparin to the patient the charge nurse was asked if it would be okay to give if the patient will probably have wound debridement the next shift, Charge nurse Roopa suggest to give the heparin dose.
[2019-12-14] MEDS: VIT B CMPLX 3/FA/VIT C/BIOTIN 1 TAB TABLET GT SCH (22:15)
[2019-12-14] MEDS: CEFEPIME 1 GM in IV D5W 50 ML IV SCH (22:15)
[2019-12-14] MEDS: HEPARIN SODIUM, PORCINE 5000 UNITS/1 ML VIAL SQ SCH (22:46)
[2019-12-14] MEDS: NEPRO 1,000 ML BOTTLE GT PRN (23:59)
[2019-12-15] VITALS: BP 104/64
[2019-12-15] MEDS: BLOOD SUGAR DIAGNOSTIC 1 EACH STRIP IN SCH ×4 (00:06→18:09)
[2019-12-15] MEDS: ALBUTEROL SULFATE 8 GM HFA.AER.AD IH SCH ×4 (01:28→19:33)
[2019-12-15] MEDS: IPRATROPIUM BROMIDE 14 GM INHALER (or 12.9 GM) INH SCH ×4 (01:28→19:33)
--- NOTE | 2019-12-15 01:30 | NUR ---
wound care performed as indicated by instructions. B buttocks; B feet, and Sacral.
[2019-12-15 04:00] VITALS: BP 98/65
[2019-12-15 05:14] LABS: APPEARANCE,URINE CLOUDY (CLEAR); BILIRUBIN,URINE NEGATIVE (NEGATIVE); BLOOD, URINE LARGE Ery/uL (NEGATIVE); COLOR,URINE YELLOW (YELLOW); KETONES,URINE NEGATIVE (NEGATIVE); LEUKOCYTE ESTERASE ,URINE LARGE (NEGATIVE); NITRITE, URINE NEGATIVE (NEGATIVE); PROTEIN,URINE >=300 mg/dl (NEGATIVE); UGLUCOSE NEGATIVE (NEGATIVE); UROBILINOGEN,URINE 0.2 EU/dL (0.2)
[2019-12-15 05:20] LABS: BACTERIA,URINE Many /HPF (None Seen); RBC,URINE 21-50 /HPF (0-2); SQUAMOUS EPITHELIAL CELL,UR Rare /HPF (None Seen); WBC,URINE 51-80 /HPF (0-3)
--- NOTE | 2019-12-15 06:50 | NUR ---
RN CLOSING Patient is on ventilator. VS WNL. The patient is on external telemonitor. SR, HR 79. the patient has a FC, draining well. Gastric tube running on Nepro at 40 cc/hr. IV site flushing well, RAC. wounds on sacral, B- buttocks, B- feet. Wound care was performed according to order. All safety mechanisms are in place at this time. Bed locked in the lowest position, call light within reach. Will endorse the incoming shift.
--- NOTE | 2019-12-15 07:09 | NUR ---
RN NOTES RECEIVED PT ON BED, TRACH/ VENT DEPENDENT, TOLERATING CURRENT VENT SETTING WELL, PT IS NONVERBAL, EYES ARE OPEN, DOES NOT FOLLOW COMMAND, ON TELE SR HR IN 80'S NEPRO AT 40CC/ HR VIA GT , NO RESIDUAL NOTED, R AC IV SITE CLEAN, DRY AND INTACT, SR UP x3, CALL LIGHT WITHIN EASY REACH, BED LOCKED AND IN LOWEST POSITION, CONTINUE TO MONITOR .
[2019-12-15 08:00] VITALS: BP 90/64
[2019-12-15] MEDS: ATENOLOL 25 MG TABLET GT SCH (08:25)
[2019-12-15] MEDS: methylPREDNISolone (4MG) 4 MG TABLET GT SCH (08:26)
[2019-12-15] MEDS: DOCUSATE SODIUM LIQ 100 MG/10 ML UDC GT SCH ×2 (08:26→17:03)
[2019-12-15] MEDS: PANTOPRAZOLE 40 MG/PACK PACK GT SCH (08:26)
[2019-12-15] MEDS: ASCORBIC ACID 500 MG TABLET GT SCH (08:26)
[2019-12-15] MEDS: HEPARIN SODIUM, PORCINE 5000 UNITS/1 ML VIAL SQ SCH ×2 (08:28→21:18)
[2019-12-15] MEDS: DAKINS QUARTER STRENGTH (0.125%) 480 ML BOTTLE TOP SCH (08:29)
[2019-12-15] MEDS: Z GUARD REMEDY 2 OZ OINT TP SCH (08:29)
[2019-12-15] MEDS: SILVER SULFADIAZINE 50 GM JAR TP SCH (08:30)
[2019-12-15 12:00] VITALS: BP_SYST 99; BP_DIAS 65; BP_DIAS 66
--- NOTE | 2019-12-15 12:00 | NUR ---
RN NOTES TRACH SUCTIONING DONE , CONTINUE TO MONITOR.
[2019-12-15 16:00] VITALS: BP_SYST 84; BP_SYST 91; BP_DIAS 68; BP_DIAS 89
--- NOTE | 2019-12-15 18:18 | NUR ---
RN NOTES TRACH CARE DONE, PT STABLE, NO SIGNIFICANT CHANGES NOTED ON THIS SHIFT, TF AT 40CC/HR RUNNING , NO RESIDUAL NOTED, SR UP x3, CALL LIGHT WITHIN EASY REACH, BED LOCKED AND IN LOWEST POSITION, WILL ENDOSE TO BURLING AND JOINING SUPERVISOR NURSE FOR CONTINUITY OF CARE .
[2019-12-15 20:00] VITALS: BP 98/70
[2019-12-15] MEDS: CEFEPIME 1 GM in IV D5W 50 ML IV SCH (21:11)
[2019-12-15] MEDS: VIT B CMPLX 3/FA/VIT C/BIOTIN 1 TAB TABLET GT SCH (21:25)
--- NOTE | 2019-12-15 22:12 | NUR ---
Found the patient with a IV line pulled out. A new IV line has been inserted on the LFA 22G.
--- NOTE | 2019-12-15 23:51 | NUR ---
RN OPENING NOTES Received the patient resting in bed. Patient is on ventilator. VS WNL. The patient is on external telemonitor. SR, HR 70'S. the patient has a FC, draining well. Gastric tube running on nepro at 40 cc/hr. IV site flushing well, LFA. Wounds on sacral, B- buttocks, B- feet. Will provide wound care as ordered.All safety mechanisms are in place at this time. Bed locked in the lowest position, call light within reach. Will continue to monitor
[2019-12-16] VITALS: BP_SYST 104; BP_DIAS 48; BP_DIAS 66
[2019-12-16] MEDS: BLOOD SUGAR DIAGNOSTIC 1 EACH STRIP IN SCH ×4 (00:39→17:47)
[2019-12-16] MEDS: ALBUTEROL SULFATE 8 GM HFA.AER.AD IH SCH ×4 (01:19→19:28)
[2019-12-16] MEDS: IPRATROPIUM BROMIDE 14 GM INHALER (or 12.9 GM) INH SCH ×4 (01:19→19:29)
[2019-12-16] MEDS: NEPRO 1,000 ML BOTTLE GT PRN (01:54)
[2019-12-16 04:00] VITALS: BP 104/69
[2019-12-16 06:29] LABS: BASOPHILS % (AUTO) 0.3 % (0.0-2.0); EOSINOPHILS % (AUTO) 1.8 % (0.0-6.0); HEMATOCRIT 40 % (39-51); HEMOGLOBIN 12.6 g/dL (13.5-17.5); LYMPHOCYTES # (AUTO) 1.3 /CMM (0.8-4.8); LYMPHOCYTES % (AUTO) 8.7 % (20.0-44.0); MEAN CORPUSCULAR HGB CONC 31 g/dl (31.0-36.0); MEAN CORPUSCULAR VOLUME 94 fL (80-96); MONOCYTES # (AUTO) 1.9 /CMM (0.1-1.30); NEUTROPHILS % (AUTO) 76.2 % (43.0-81.0); PLATELET COUNT (AUTO) 194 /CMM (150-450); RED BLOOD CELL COUNT(AUTO) 4.26 MIL/uL (4.5-6.0); WHITE BLOOD COUNT (AUTO) 14.4 K/uL (4.3-11.0)
--- NOTE | 2019-12-16 06:37 | NUR ---
RN CLOSING NOTES Patient resting in bed. Patient is on ventilator. VS WNL. The patient is on external telemonitor. SR, HR 70'S. the patient has a FC, draining well. Gastric tube running on nepro at 40 cc/hr. IV site flushing well, LFA. Wounds on sacral, B- buttocks, B- feet. Will provide wound care as ordered.All safety mechanisms are in place at this time. Bed locked in the lowest position, call light within reach. Will endorse the next shift..
--- NOTE | 2019-12-16 07:30 | NUR ---
rn notes received patient asleep, awaken by touch. non verbal, trach tube in midline, on mechanical vent. tolerating current vent settings. sating fine with breathing unlabored. not on any form of distress. no indication of pain noted. sinus rhythm on the monitor with hr on the 60s. iv access on the r hand, in place with clean and dry dressing, saline locked. patient looked comfortable in bed at this time. with gtf infusing at desired rate, no residual taken at this time. gt placement confirmed by aspiration and auscultation. hob kept elevated. safety measures observed and maintained. srx2 raised. bed in low and lock position. will continue to monitor patient accordingly
[2019-12-16 08:00] VITALS: BP 133/78
[2019-12-16] MEDS: PANTOPRAZOLE 40 MG/PACK PACK GT SCH (09:07)
[2019-12-16] MEDS: methylPREDNISolone (4MG) 4 MG TABLET GT SCH (09:07)
[2019-12-16] MEDS: DOCUSATE SODIUM LIQ 100 MG/10 ML UDC GT SCH ×2 (09:07→17:47)
[2019-12-16] MEDS: ATENOLOL 25 MG TABLET GT SCH (09:08)
[2019-12-16] MEDS: ASCORBIC ACID 500 MG TABLET GT SCH (09:08)
[2019-12-16] MEDS: HEPARIN SODIUM, PORCINE 5000 UNITS/1 ML VIAL SQ SCH ×2 (09:10→21:15)
[2019-12-16] MEDS: Z GUARD REMEDY 2 OZ OINT TP SCH (09:11)
[2019-12-16] MEDS: DAKINS QUARTER STRENGTH (0.125%) 480 ML BOTTLE TOP SCH (09:11)
[2019-12-16] MEDS: SILVER SULFADIAZINE 50 GM JAR TP SCH (09:11)
[2019-12-16 12:00] VITALS: BP 100/67
--- NOTE | 2019-12-16 13:30 | NUR ---
rn notes dialysis done at this time. 500ml off the patient. patient able to tolerate the procedure well
[2019-12-16 16:00] VITALS: BP 118/72
[2019-12-16 20:00] VITALS: BP 137/95
[2019-12-16] MEDS: VIT B CMPLX 3/FA/VIT C/BIOTIN 1 TAB TABLET GT SCH (21:14)
[2019-12-16] MEDS: CEFEPIME 1 GM in IV D5W 50 ML IV SCH (21:14)
[2019-12-17] VITALS (7 sets, daily range): BP systolic 98–148; BP diastolic 62–89
[2019-12-17] MEDS: BLOOD SUGAR DIAGNOSTIC 1 EACH STRIP IN SCH ×4 (00:36→17:51)
[2019-12-17] MEDS: IPRATROPIUM BROMIDE 14 GM INHALER (or 12.9 GM) INH SCH ×4 (02:05→19:40)
[2019-12-17] MEDS: ALBUTEROL SULFATE 8 GM HFA.AER.AD IH SCH ×4 (02:05→19:40)
[2019-12-17 06:28] LABS: BASOPHILS % (AUTO) 0.3 % (0.0-2.0); EOSINOPHILS % (AUTO) 1.2 % (0.0-6.0); HEMATOCRIT 43 % (39-51); HEMOGLOBIN 13.2 g/dL (13.5-17.5); LYMPHOCYTES % (AUTO) 7.1 % (20.0-44.0); MEAN CORPUSCULAR HGB CONC 31 g/dl (31.0-36.0); MEAN CORPUSCULAR VOLUME 96 fL (80-96); MONOCYTES # (AUTO) 1.6 /CMM (0.1-1.30); MONOCYTES % (AUTO) 11.1 % (2.0-12.0); NEUTROPHILS # (AUTO) 11.5 /CMM (1.8-8.9); NEUTROPHILS % (AUTO) 80.3 % (43.0-81.0); PLATELET COUNT (AUTO) 174 /CMM (150-450); WHITE BLOOD COUNT (AUTO) 14.3 K/uL (4.3-11.0)
--- NOTE | 2019-12-17 07:30 | NUR ---
CONFERENCE SERVICES MANAGER AM NOTES RECEIVED PT IN BED, OBTUNDED, WITH PORTEX 8 TO MECHANICAL VENT, SETTINGS ORDERED, BREATHING EVEN AND UNLABORED, SR HR 90 ON TELE MONITOR, NO SIGNS OF PAIN OR DISCOMFORT, LEFT HAND G 22, FLUSHES WELL, LEFT SUBCLAVIAN PERMACATH CDI DRESSINGS., GT IN PLACE, NEPRO AT 40 ML/HR, 0 RSIDUAL. SEE NURSING FLOWSHEET FOR SKIN ISSUES. PATIENT MADE COMFORTABLE. BED LOW LOCKED, CALL LIGHT WITHIN REACH. WILL TURN AND REPOSITION Q 2HOURS. WILL PERFORM PRESCRIBED WOUND TREATMENT PRERNA FEW, WILL CONT TO MONITOR.
--- NOTE | 2019-12-17 09:15 | NUR ---
WOUND CARE CONSULT: PT FOLLOWED BY SURGICAL AND PODIATRY TEAMS FOR MULTIPLE WOUNDS, PRESENT ON ADMISSION. RECOMMENDATIONS MADE FOR SKIN PROTECTION. DISCUSSED WITH NURSING STAFF. DEFER TO SURGICAL TEAMS FOR WOUND TREATMENT PLAN. PT IS ON ABELARDO ISOFLEX LOW AIRLOSS BED. WILL SEE PRN.
[2019-12-17] MEDS: PANTOPRAZOLE 40 MG/PACK PACK GT SCH (09:20)
[2019-12-17] MEDS: methylPREDNISolone (4MG) 4 MG TABLET GT SCH (09:20)
[2019-12-17] MEDS: ASCORBIC ACID 500 MG TABLET GT SCH (09:20)
[2019-12-17] MEDS: DOCUSATE SODIUM LIQ 100 MG/10 ML UDC GT SCH ×2 (09:20→16:30)
[2019-12-17] MEDS: ATENOLOL 25 MG TABLET GT SCH (09:21)
[2019-12-17] MEDS: HEPARIN SODIUM, PORCINE 5000 UNITS/1 ML VIAL SQ SCH ×2 (09:21→21:52)
[2019-12-17] MEDS: DAKINS QUARTER STRENGTH (0.125%) 480 ML BOTTLE TOP SCH (09:22)
[2019-12-17] MEDS: SILVER SULFADIAZINE 50 GM JAR TP SCH (09:22)
[2019-12-17] MEDS: Z GUARD REMEDY 2 OZ OINT TP SCH (09:22)
--- NOTE | 2019-12-17 09:30 | NUR ---
ENERGY ANALYST NOTES DUE MEDS GIVEN
--- NOTE | 2019-12-17 12:18 | NUR ---
RECEIVED PATIENT FROM LUCILA PATEL
[2019-12-17] MEDS: PROSOURCE / PROSTAT (PYXIS) 30 ML UDC GT SCH ×2 (12:33→16:30)
--- NOTE | 2019-12-17 14:01 | NUR ---
1230 Wound Consult done by Marisela debridement done tolerated well.
[2019-12-17] MEDS: HYDROGEL DRESSING 90 GM TUBE TP SCH (17:39)
--- NOTE | 2019-12-17 19:25 | NUR ---
RN CLOSING NOTE Patient in bed calm and relaxed. On vent no signs of distress. All due meds given. Vital signs within normal limits. No signs of pain or discomfort. Cont on hospitalization. Kept clean and dry wound dressing done. Assisted with hygiene. GT feeding tolerating well. Safety measures reinforced. Call light within reach. Bed locked and on lowest position. Endorsed to shiftman nurse for steve.
--- NOTE | 2019-12-17 19:45 | NUR ---
RN OPENING NOTE Received the patient resting in bed, non verbal. Patient is on ventilator. VS WNL. The patient is on external telemonitor. SR, HR 88. Noted FC connected to urine bag, intach and draining to a clear yellow urine. Gastric tube running on nepro at 40 cc/hr. IV site noted at left hand, patent and flushing well. Noted left subclavian permacath, no sign of infection. Safety measures implemented per protocol. Bed alarm on, HOB elevated, bed locked, and at lowest position, with side rails upx2, call light within reach of patient. Will continue to monitor and reassess for any change in condition.
[2019-12-17] MEDS: CEFEPIME 1 GM in IV D5W 50 ML IV SCH (21:48)
[2019-12-17] MEDS: VIT B CMPLX 3/FA/VIT C/BIOTIN 1 TAB TABLET GT SCH (21:48)
[2019-12-18] VITALS (7 sets, daily range): BP systolic 102–135; BP diastolic 58–84
[2019-12-18] MEDS: INSULIN REGULAR, HUMAN 100 UNIT/ML 3 ML VIAL SQ PRN ×2 (00:25→05:58)
[2019-12-18] MEDS: BLOOD SUGAR DIAGNOSTIC 1 EACH STRIP IN SCH ×4 (00:25→18:26)
[2019-12-18] MEDS: ALBUTEROL SULFATE 8 GM HFA.AER.AD IH SCH ×4 (01:33→20:01)
[2019-12-18] MEDS: IPRATROPIUM BROMIDE 14 GM INHALER (or 12.9 GM) INH SCH ×4 (01:33→20:01)
--- NOTE | 2019-12-18 06:40 | NUR ---
RN NOTES VILLARREAL CATHETER CHANGED ASEPTICALLY PER ORDER FROM DR JOSE ON 12/17/2019 0705.
--- NOTE | 2019-12-18 06:55 | NUR ---
RN CLOSING NOTE PATIENT REMAINS IN ROOM. NO SIGNS OF RESPIRATORY DISTRESS. SAFETY MEASURES IMPLEMENTED PER PROTOCOL, BED IN LOWEST POSITION, LOCKED, SIDE RAILS UP, CALL LIGHT WITHIN REACH. ENDORSED TO INCOMING SHIFT RN FOR CONTINUITY OF CARE.
--- NOTE | 2019-12-18 07:15 | NUR ---
DIRECTOR BUSINESS INTELLIGENCE NOTES PATIENT IN BED OBTUNDED. NO ISOLATION ON VILLARREAL , NO URINE NOTED AT THE VILLARREAL. NO RESIDUAL NOTED AT THE GTUBE SITE. IV SITE PATENT. WILL CONTINUE TO MONITOR THE PATIENT.
[2019-12-18 07:32] LABS: BASOPHILS # (AUTO) 0.1 /CMM (0.0-0.2); BASOPHILS % (AUTO) 0.5 % (0.0-2.0); EOSINOPHILS % (AUTO) 2.7 % (0.0-6.0); HEMATOCRIT 44 % (39-51); HEMOGLOBIN 13.5 g/dL (13.5-17.5); LYMPHOCYTES # (AUTO) 1.7 /CMM (0.8-4.8); LYMPHOCYTES % (AUTO) 10.7 % (20.0-44.0); MEAN CORPUSCULAR HGB CONC 31 g/dl (31.0-36.0); MEAN CORPUSCULAR VOLUME 96 fL (80-96); MONOCYTES # (AUTO) 2.1 /CMM (0.1-1.30); MONOCYTES % (AUTO) 13.4 % (2.0-12.0); NEUTROPHILS # (AUTO) 11.3 /CMM (1.8-8.9); NEUTROPHILS % (AUTO) 72.7 % (43.0-81.0); WHITE BLOOD COUNT (AUTO) 15.5 K/uL (4.3-11.0)
[2019-12-18 07:48] LABS: CALCIUM, SERUM 10.2 mg/dL (8.5-10.1)
--- NOTE | 2019-12-18 08:15 | NUR ---
EDUCATIONAL RESOURCE CENTER TEACHER NOTES RECEIVED A CRITICAL LAB FROM LAB BUN 98 AND CR 10.0 INFORMED GRETCHEN JACK.
[2019-12-18 08:19] LABS: PLATELET COUNT (AUTO) 216 /CMM (150-450)
[2019-12-18] MEDS: ATENOLOL 25 MG TABLET GT SCH (08:47)
[2019-12-18] MEDS: ASCORBIC ACID 500 MG TABLET GT SCH (08:47)
[2019-12-18] MEDS: DOCUSATE SODIUM LIQ 100 MG/10 ML UDC GT SCH ×2 (08:48→17:22)
[2019-12-18] MEDS: PANTOPRAZOLE 40 MG/PACK PACK GT SCH (08:48)
[2019-12-18] MEDS: ACETAMINOPHEN 650 MG/20.3 ML UDC GT PRN (08:48)
[2019-12-18] MEDS: HEPARIN SODIUM, PORCINE 5000 UNITS/1 ML VIAL SQ SCH ×2 (08:51→21:24)
[2019-12-18] MEDS: methylPREDNISolone (4MG) 4 MG TABLET GT SCH (08:53)
[2019-12-18] MEDS: PROSOURCE / PROSTAT (PYXIS) 30 ML UDC GT SCH ×3 (08:53→17:23)
[2019-12-18] MEDS: DAKINS QUARTER STRENGTH (0.125%) 480 ML BOTTLE TOP SCH (08:53)
[2019-12-18] MEDS: Z GUARD REMEDY 2 OZ OINT TP SCH (08:54)
[2019-12-18] MEDS: SILVER SULFADIAZINE 50 GM JAR TP SCH (08:54)
[2019-12-18] MEDS: HYDROGEL DRESSING 90 GM TUBE TP SCH (08:54)
[2019-12-18 09:03] LABS: EOSINOPHILS % (MANUAL) 6 % (0-4); LYMPHOCYTES % (MANUAL) 9 % (16-48); MONOCYTES % (MANUAL) 8 % (0-11.0); NEUTROPHILS % (MANUAL) 77 (42-76)
--- NOTE | 2019-12-18 09:11 | NUR ---
WEB UI DESIGNER NOTES APPLIED COOLING MEASURES FOR TEMPERATURE OF 100.6 TYLENOL GIVEN. NOTED RED FRESH BLOOD ON PT VILLARREAL CATHETER.
--- NOTE | 2019-12-18 10:30 | NUR ---
BLISTER RUST ERADICATOR NOTES DIALYSIS NURSE AT BED SIDE, COMPLETED HEMODIALYSIS AND 2 L OUT.
[2019-12-18] MEDS: NEPRO 1,000 ML BOTTLE GT PRN (11:10)
--- NOTE | 2019-12-18 11:57 | NUR ---
CENTERLESS GRINDING MACHINE ADJUSTER NOTES NO INSULIN WAS ADMINISTRATED PER SLIDING SCALE. 128MG/DL.
--- NOTE | 2019-12-18 13:45 | NUR ---
QA AUTOMATION DEVELOPER NOTES PER HOSPITALIST GUERO IT IS OK TO REMOVE THE VILLARREAL CATHETER.
--- NOTE | 2019-12-18 14:48 | NUR ---
TAXICAB DISPATCHER NOTES PATIENT`S VILLARREAL REMOVED AND NOTED BLOOD CLOTH AND BLEEDING FROM THE PENIS. 50 ML. THE DRAINAGE IS BRIGHT RED.
--- NOTE | 2019-12-18 14:56 | NUR ---
BASKET MENDER NOTES RECEIVED CRITICAL BLOOD PLASMA REPORT FROM LAB FOR PROCALCITONIN 2.16 INFORMED HOSPITALIST GUERO.
[2019-12-18] MEDS ORDERED: DOSING PER PHARMACY-AMIKACI IV XX PRN (16:00)
[2019-12-18] MEDS ORDERED: FEE PK DOSING 1 MIN EA MC ONE (16:16)
[2019-12-18] MEDS: CEFTRIAXONE 1 G in IV D5W 50 ML IV SCH (17:22)
--- NOTE | 2019-12-18 17:49 | NUR ---
AGED OR DISABLED CARER NOTES no insulin administrated per sliding scalae bg 106 mg/dl.
--- NOTE | 2019-12-18 19:25 | NUR ---
NDT INSPECTOR NOTES PATIENT IN BED. NO SOB OR DISCOMFORT NOTED AT THIS TIME. NO RESIDUAL FROM GTUBE SITE PATIENT IS TOLERATING THE FEEDING WELL. CALL LIGHT WITHIN REACH. ALL INTERVENTION ATTENDED. REPORT GIVEN TO LINE DANCER NURSE FOR DENNIS.
[2019-12-18] MEDS: VIT B CMPLX 3/FA/VIT C/BIOTIN 1 TAB TABLET GT SCH (21:25)
[2019-12-19] VITALS (7 sets, daily range): BP systolic 93–131; BP diastolic 47–78
[2019-12-19] MEDS: BLOOD SUGAR DIAGNOSTIC 1 EACH STRIP IN SCH ×4 (00:41→18:37)
[2019-12-19] MEDS: IPRATROPIUM BROMIDE 14 GM INHALER (or 12.9 GM) INH SCH ×4 (01:50→19:39)
[2019-12-19] MEDS: ALBUTEROL SULFATE 8 GM HFA.AER.AD IH SCH ×4 (01:50→19:40)
[2019-12-19 06:43] LABS: CALCIUM, SERUM 9.6 mg/dL (8.5-10.1); POTASSIUM 3.7 mmol/L (3.5-5.1)
[2019-12-19 06:44] LABS: CREATININE 7.8 mg/dL (0.6-1.3)
--- NOTE | 2019-12-19 07:20 | NUR ---
RN opening note: Received patient in bed and obtunded. No pain noted on patient. On mechanical ventilation and tolerating settings well. Saturation @ 100%, no SOB and no respiratory distress. IV site clean, dry, patent and intact. No pain noted. GTube patent and in place with Nepro @ 40mls/hr being tolerated well. Call light in reach. Bed locked, low and at semi-dunn's position. Side rails up x3. Safety ensured and observed. Will continue to monitor.
[2019-12-19] MEDS: PANTOPRAZOLE 40 MG/PACK PACK GT SCH (09:28)
[2019-12-19] MEDS: ASCORBIC ACID 500 MG TABLET GT SCH (09:28)
[2019-12-19] MEDS: methylPREDNISolone (4MG) 4 MG TABLET GT SCH (09:28)
[2019-12-19] MEDS: DOCUSATE SODIUM LIQ 100 MG/10 ML UDC GT SCH ×2 (09:28→18:37)
[2019-12-19] MEDS: HYDROGEL DRESSING 90 GM TUBE TP SCH (09:29)
[2019-12-19] MEDS: Z GUARD REMEDY 2 OZ OINT TP SCH (09:29)
[2019-12-19] MEDS: DAKINS QUARTER STRENGTH (0.125%) 480 ML BOTTLE TOP SCH (09:29)
[2019-12-19] MEDS: PROSOURCE / PROSTAT (PYXIS) 30 ML UDC GT SCH ×3 (09:29→18:37)
[2019-12-19] MEDS: SILVER SULFADIAZINE 50 GM JAR TP SCH (09:30)
[2019-12-19] MEDS: ATENOLOL 25 MG TABLET GT SCH (09:51)
[2019-12-19] MEDS: HEPARIN SODIUM, PORCINE 5000 UNITS/1 ML VIAL SQ SCH ×2 (09:53→21:17)
[2019-12-19] MEDS: AMIKACIN 450 MG in IV D5W 100 ML IV PRN (14:00)
[2019-12-19] MEDS: NEPRO 1,000 ML BOTTLE GT PRN (18:36)
[2019-12-19] MEDS: CEFTRIAXONE 1 G in IV D5W 50 ML IV SCH (18:37)
--- NOTE | 2019-12-19 19:23 | NUR ---
RN closing note: No acute changes noted on shift. Patient remains in bed and obtunded. No pain noted on patient. On mechanical ventilation and tolerating settings well. Saturation @ 100%, no SOB and no respiratory distress. IV site clean, dry, patent and intact. No pain noted. GTube patent and in place with Nepro @ 40mls/hr being tolerated well. Isolation precaution in place for CRE urine. Was seen by Stella Loza DNP earlier on shift. Call light in reach. Bed locked, low and at semi-dunn's position. Side rails up x3. Safety ensured and observed. Due medications given. Treatment given as ordered.
--- NOTE | 2019-12-19 21:09 | NUR ---
RT NOTE PT RECEIVED TRACHED ON MECHANICAL VENTILATION. CUFF CHECKED VIA SCRAPER OPERATOR. AMBU BAG @ HOB. PORTEX [address] MDI TX GIVEN, NO ADVERSE REACTIONS NOTED. SX DONE, TRACH SECURED AND PATENT. ALARMS ON AND AUDIBLE. VENT PLUGGED TO RED OUTLET. NO DISTRESS NOTED. CONT. PULSE OX CONNECTED. WILL CONTINUE TO MONITOR CLOSELY. Addendum: 12/19/19 at 2109 by USAMA JOHNSON RT Amended: Links added.
[2019-12-19] MEDS: VIT B CMPLX 3/FA/VIT C/BIOTIN 1 TAB TABLET GT SCH (21:17)
[2019-12-20] VITALS (7 sets, daily range): BP systolic 105–132; BP diastolic 70–80
[2019-12-20] MEDS: BLOOD SUGAR DIAGNOSTIC 1 EACH STRIP IN SCH ×5 (00:14→23:35)
[2019-12-20] MEDS: ALBUTEROL SULFATE 8 GM HFA.AER.AD IH SCH ×3 (01:02→19:53)
[2019-12-20] MEDS: IPRATROPIUM BROMIDE 14 GM INHALER (or 12.9 GM) INH SCH ×3 (01:03→19:55)
[2019-12-20 06:30] LABS: BASOPHILS # (AUTO) 0.1 /CMM (0.0-0.2); BASOPHILS % (AUTO) 0.6 % (0.0-2.0); EOSINOPHILS % (AUTO) 1.5 % (0.0-6.0); HEMATOCRIT 41 % (39-51); LYMPHOCYTES # (AUTO) 1.9 /CMM (0.8-4.8); LYMPHOCYTES % (AUTO) 13.3 % (20.0-44.0); MEAN CORPUSCULAR HGB CONC 30 g/dl (31.0-36.0); MEAN CORPUSCULAR VOLUME 99 fL (80-96); MONOCYTES # (AUTO) 1.6 /CMM (0.1-1.30); MONOCYTES % (AUTO) 10.9 % (2.0-12.0); NEUTROPHILS # (AUTO) 10.6 /CMM (1.8-8.9); NEUTROPHILS % (AUTO) 73.7 % (43.0-81.0); PLATELET COUNT (AUTO) 218 /CMM (150-450); RED BLOOD CELL COUNT(AUTO) 4.11 MIL/uL (4.5-6.0); WHITE BLOOD COUNT (AUTO) 14.4 K/uL (4.3-11.0)
[2019-12-20 07:17] LABS: POTASSIUM 3.9 mmol/L (3.5-5.1)
--- NOTE | 2019-12-20 07:30 | NUR ---
RN OPENING NOTE Patient is in bed, obtunded, showing no signs of acute distress or SOB, stable on mechanical vent TV 500 FiO2 40% AC 14 PEEP 0. Tele monitor SR 90s. IV line in the left hand #24g is clean and patent s/l. left subclavian perma-cath noted. G-tube feeding noted with 20cc residual, flushign well, running Nephro @40cc/hr. Bed is in lowest position, side rails x3 in upright position, fall safety and aspiration precautions enforced. Will continue with plan of care.
[2019-12-20 07:35] LABS: CREATININE 9.9 mg/dL (0.6-1.3)
[2019-12-20] MEDS: methylPREDNISolone (4MG) 4 MG TABLET GT SCH (08:33)
[2019-12-20] MEDS: PANTOPRAZOLE 40 MG/PACK PACK GT SCH (08:33)
[2019-12-20] MEDS: DOCUSATE SODIUM LIQ 100 MG/10 ML UDC GT SCH ×2 (08:33→16:17)
[2019-12-20] MEDS: ATENOLOL 25 MG TABLET GT SCH (08:34)
[2019-12-20] MEDS: ASCORBIC ACID 500 MG TABLET GT SCH (08:34)
[2019-12-20] MEDS: HEPARIN SODIUM, PORCINE 5000 UNITS/1 ML VIAL SQ SCH ×2 (08:36→20:56)
[2019-12-20] MEDS: DAKINS QUARTER STRENGTH (0.125%) 480 ML BOTTLE TOP SCH (08:42)
[2019-12-20] MEDS: SILVER SULFADIAZINE 50 GM JAR TP SCH (08:42)
[2019-12-20] MEDS: Z GUARD REMEDY 2 OZ OINT TP SCH (08:43)
[2019-12-20] MEDS: HYDROGEL DRESSING 90 GM TUBE TP SCH (08:43)
[2019-12-20] MEDS: PROSOURCE / PROSTAT (PYXIS) 30 ML UDC GT SCH ×3 (11:43→16:17)
[2019-12-20] MEDS: INSULIN REGULAR, HUMAN 100 UNIT/ML 3 ML VIAL SQ PRN ×3 (12:29→23:34)
--- NOTE | 2019-12-20 12:29 | NUR ---
RN NOTE NON-ADMIN insulin per sliding scale. BS 114.
--- NOTE | 2019-12-20 14:39 | NUR ---
RN NOTE Ok per pharmacy to hold Amikacin today due to trough level of 22.5
[2019-12-20] MEDS: CEFTRIAXONE 1 G in IV D5W 50 ML IV SCH (16:17)
[2019-12-20] MEDS: NEPRO 1,000 ML BOTTLE GT PRN (16:29)
--- NOTE | 2019-12-20 17:32 | NUR ---
RN NOTE NON-ADMIN insulin per sliding scale. BS 116.
--- NOTE | 2019-12-20 17:41 | NUR ---
RN NOTE HD completed 1000cc out. Patient remains stable. VS stable.
--- NOTE | 2019-12-20 18:41 | NUR ---
RN CLOSING NOTE Patient is in bed, obtunded, showing no signs of acute distress or SOB, stable on mechanical vent TV 500 FiO2 40% AC 14 PEEP 0. Tele monitor SR 80s-90s. IV line in the left hand #24g is clean and patent running TKO. left subclavian perma-cath noted. G-tube feeding noted with 10cc residual, flushing well, running Nephro @40cc/hr. All patient needs met, all due medications given, patient kept clean and dry throughout shift. Wound care done as ordered, patient turned [id number]. Bed is in lowest position, side rails x3 in upright position, fall safety and aspiration precautions enforced. Will endorse to cage shift manager.
[2019-12-20] MEDS: VIT B CMPLX 3/FA/VIT C/BIOTIN 1 TAB TABLET GT SCH (21:22)
--- NOTE | 2019-12-20 22:59 | NUR ---
RN opening note: Received patient in bed and obtunded. On mechanical ventilation and Ac setting well tolerated, Sating @ 100%, no SOB and no respiratory distress. IV site clean, dry, patent and intact. No pain noted. GTube patent and in place with Nepro @ 40mls/hr being tolerated well.no residual noted, turned and repositioned.suction secretion prn. all due meds given as ordered v/s stable afebrile . Call light in reach. Bed locked, low and at semi-dunn's position. Side rails up x3. Safety ensured and observed. Will continue to monitor.
--- NOTE | 2019-12-20 23:37 | NUR ---
telephone operator notes blood sugar for 12mn is 94mg/dl no coverage given per sliding scale pts on gt feeding will check blood sugar again in am.
[2019-12-21] VITALS (7 sets, daily range): BP systolic 95–129; BP diastolic 58–76
--- NOTE | 2019-12-21 00:30 | NUR ---
RN OPENING NOTE RECEIVED PATIENT IN BED RESTING CONFUSED NONVERBAL ON VENERATOR,HEMODIALYSIS, ON G-TUBE FEEDING,NO SOB NOT ACUTE DISTRESS NOTED,CONTINUE TO MONITOR
--- NOTE | 2019-12-21 00:56 | NUR ---
rn notes Report given to jessica for continuity of care.
[2019-12-21] MEDS: IPRATROPIUM BROMIDE 14 GM INHALER (or 12.9 GM) INH SCH ×4 (02:17→19:34)
[2019-12-21] MEDS: ALBUTEROL SULFATE 8 GM HFA.AER.AD IH SCH ×4 (02:18→19:34)
[2019-12-21] MEDS: BLOOD SUGAR DIAGNOSTIC 1 EACH STRIP IN SCH ×3 (05:55→17:40)
[2019-12-21 06:49] LABS: BASOPHILS # (AUTO) 0.1 /CMM (0.0-0.2); BASOPHILS % (AUTO) 0.6 % (0.0-2.0); EOSINOPHILS % (AUTO) 1.8 % (0.0-6.0); HEMATOCRIT 41 % (39-51); HEMOGLOBIN 12.3 g/dL (13.5-17.5); LYMPHOCYTES # (AUTO) 1.9 /CMM (0.8-4.8); LYMPHOCYTES % (AUTO) 15.3 % (20.0-44.0); MEAN CORPUSCULAR HGB CONC 30 g/dl (31.0-36.0); MEAN CORPUSCULAR VOLUME 100 fL (80-96); MONOCYTES # (AUTO) 1.2 /CMM (0.1-1.30); MONOCYTES % (AUTO) 9.4 % (2.0-12.0); NEUTROPHILS # (AUTO) 9.1 /CMM (1.8-8.9); NEUTROPHILS % (AUTO) 72.9 % (43.0-81.0); PLATELET COUNT (AUTO) 197 /CMM (150-450); RED BLOOD CELL COUNT(AUTO) 4.16 MIL/uL (4.5-6.0); WHITE BLOOD COUNT (AUTO) 12.5 K/uL (4.3-11.0)
[2019-12-21 07:04] LABS: CALCIUM, SERUM 9.8 mg/dL (8.5-10.1); POTASSIUM 4.4 mmol/L (3.5-5.1)
--- NOTE | 2019-12-21 07:06 | NUR ---
RN CLOSING NOTE PATIENT REMAINS IN STABLE CONDITION,NO PAIN NO DISCOMFORT NOTED,ALL DUE MEDS GIVEN VIA G-TUBE FEEDING,HE TOLERATED WELL,KEPT CLEAN AND DRY ALL THE TIME,ENDORSE NEXT SHIFT FOR CONTINUATION OF CARE.
[2019-12-21 07:16] LABS: CREATININE 9.6 mg/dL (0.6-1.3)
--- NOTE | 2019-12-21 07:20 | NUR ---
RN OPENING NOTE RECEIVED PATIENT IN BED RESTING. PATIENT NONVERBAL AND COONFUSED. PATIENT ON VENTILATOR. PATIENT RECEIVING HEMODIALYSIS, ON G-TUBE FEEDING,NO SOB NOT ACUTE DISTRESS NOTED,CONTINUE TO MONITOR
[2019-12-21] MEDS: DOCUSATE SODIUM LIQ 100 MG/10 ML UDC GT SCH ×2 (09:45→16:03)
[2019-12-21] MEDS: PANTOPRAZOLE 40 MG/PACK PACK GT SCH (09:46)
[2019-12-21] MEDS: ASCORBIC ACID 500 MG TABLET GT SCH (09:46)
[2019-12-21] MEDS: methylPREDNISolone (4MG) 4 MG TABLET GT SCH (09:47)
[2019-12-21] MEDS: HEPARIN SODIUM, PORCINE 5000 UNITS/1 ML VIAL SQ SCH (09:49)
[2019-12-21] MEDS: PROSOURCE / PROSTAT (PYXIS) 30 ML UDC GT SCH ×3 (09:55→16:00)
[2019-12-21] MEDS: ATENOLOL 25 MG TABLET GT SCH (09:55)
[2019-12-21] MEDS: Z GUARD REMEDY 2 OZ OINT TP SCH (09:56)
[2019-12-21] MEDS: DAKINS QUARTER STRENGTH (0.125%) 480 ML BOTTLE TOP SCH (09:56)
[2019-12-21] MEDS: HYDROGEL DRESSING 90 GM TUBE TP SCH (09:56)
[2019-12-21] MEDS: SILVER SULFADIAZINE 50 GM JAR TP SCH (09:58)
[2019-12-21] MEDS: CEFTRIAXONE 1 G in IV D5W 50 ML IV SCH (16:01)
--- NOTE | 2019-12-21 16:25 | NUR ---
RN NOTES RANDOM AMIKACIN LEVEL IS 13.3 PRIOR TO HD THIS AM. AMIKACIN DOSE POST HD HAS BEEN HELD BC RANDOM AMIKACIN LEVEL IS GREATER THAN 10
--- NOTE | 2019-12-21 19:10 | NUR ---
STRAINER TENDER OPENING NOTES: RECEIVED PATIENT IN BED, NO SOB NOTED, NOT IN PAIN. HOB ELEVATED AT 35 DEGREES AT ALL TIMES. PATIENT IS OBTUNDED.NON-VERBAL. WITH GT NEPHRO FEEDING RUNNING AT 40ML/HOUR. BED ALARM ON. BED IN LOWEST AND LOCKED POSITION. WITH O2 SAT AT 100%.
--- NOTE | 2019-12-21 19:21 | NUR ---
RN CLOSING NOTE WILL ENDORSE TO PM NURSE.PT IS IN BED COMFORTABLE. NO SIGNS OF RESPIRATORY DISTRESS. SAFETY MEASURES IMPLEMENTED, BED IN LOWEST POSITION, LOCKED, SIDE RAILS UP, CALL LIGHT WITHIN REACH. ALL NEEDS AND ORDERS ADDRESSED DURING THE SHIFT.
[2019-12-21] MEDS: VIT B CMPLX 3/FA/VIT C/BIOTIN 1 TAB TABLET GT SCH (22:40)
--- NOTE | 2019-12-21 22:59 | NUR ---
NO GT RESIDUAL NOTED. GT DRESSING CHANGED. NO SKIN IRRITATIONS NOTED. NO LEAKING.
[2019-12-22] MEDS: ACETAMINOPHEN 650 MG/20.3 ML UDC GT PRN (00:20)
--- NOTE | 2019-12-22 00:42 | NUR ---
BLOOD SUGAR FINGERSTICK=81,NO INSULIN GIVEN.
--- NOTE | 2019-12-22 00:54 | NUR ---
RIGHT HAND G24 INSERTED BY MARTHA SPIVEY. LEFT HAND G24 INFILTRATED, REMOVED WITH TIP INTACT,NO BLEEDING NOTED.
[2019-12-22] MEDS: ALBUTEROL SULFATE 8 GM HFA.AER.AD IH SCH ×4 (01:21→19:32)
[2019-12-22] MEDS: IPRATROPIUM BROMIDE 14 GM INHALER (or 12.9 GM) INH SCH ×4 (01:22→19:32)
[2019-12-22 04:00] VITALS: BP 99/61
[2019-12-22] MEDS: DAKINS QUARTER STRENGTH (0.125%) 480 ML BOTTLE TOP SCH (05:50)
[2019-12-22] MEDS: BLOOD SUGAR DIAGNOSTIC 1 EACH STRIP IN SCH ×6 (06:00→23:38)
--- NOTE | 2019-12-22 06:00 | NUR ---
MINING HELPER CLOSING NOTES: PATIENT IN BED, AWAKE, OBTUNDED, NON- VERBAL. HOB ELEVATED AT ALL TIMES. BED IN LOWEST AND LOCKED POSITION. BED ALARM ON. CONTRACTED. WOUND TREATMENTS DONE, SACRAL AREA- CLEANSED WITH NS AND PAT DRIED, PACKED WITH DAKIN'S SOLUTION WITH MOISTENED KERLIX AND COVERED WITH MEPILEX DRESSING. ON THE LEFT BUTTOCK WOUND- CLEANSED WITH NS AND PAT DRIED, AND APPLIED HYDROGEL TO THE WOUND BED AND COVERED WITH MEPILEX DRESSING. ON THE RIGHT BUTTOCK WOUND- CLEANSED WITH NS AND PAT DRIED, AND PACKED WITH 1/2 INCH IODOFORM PACKING STRIPS AND COVERED WITH MEPILEX DRESSING. BOTH HEELS OFFLOADED, TURNED TO SIDES DURING THE SHIFT.
--- NOTE | 2019-12-22 06:33 | NUR ---
BLOOD SUGAR FINGERSTICK= 71, NO INSULIN GIVEN.
[2019-12-22 07:05] LABS: CALCIUM, SERUM 9.7 mg/dL (8.5-10.1); POTASSIUM 4.2 mmol/L (3.5-5.1)
[2019-12-22 07:06] LABS: CREATININE 7.7 mg/dL (0.6-1.3)
--- NOTE | 2019-12-22 07:17 | NUR ---
RN OPENING NOTES RECEIVED PATIENT SLEEPING IN BED COMFORTABLY, AWAKENS TO PHYSICAL STIMULI. PT IS OBTUNDED, NON-VERBAL, AND BEDBOUND. HE IS ON MECH VENT, VIA PORTEX 8 TRACH, TOLERATING SETTINGS WELL. TELE MONITOR SHOWING SR. MULTIPLE WOUNDS PRESENT THROUGHOUT, WILL ADDRESS PER WOUND CARE PLAN. IV SITE ON RHAND 24 G IS PATENT AND INTACT, L SUBCLAVIAN PERMA CATH IS PATENT AND INTACT. GTUBE PATENT AND INTACT, INFUSING NEPRO AT 40 ML/HR, NO RESIDUAL. SAFETY MEASURES HAVE BEEN IMPLEMENTED, CALL LIGHT IS WITHIN REACH, BED IS IN LOWEST AND LOCKED POSITION, SIDE RAILS UP X2, WILL CONTINUE TO MONITOR FOR ANY CHANGES
[2019-12-22 08:00] VITALS: BP 99/71
[2019-12-22] MEDS: PANTOPRAZOLE 40 MG/PACK PACK GT SCH (08:29)
[2019-12-22] MEDS: DOCUSATE SODIUM LIQ 100 MG/10 ML UDC GT SCH ×2 (08:29→17:42)
[2019-12-22] MEDS: ASCORBIC ACID 500 MG TABLET GT SCH (08:29)
[2019-12-22] MEDS: methylPREDNISolone (4MG) 4 MG TABLET GT SCH (08:29)
[2019-12-22] MEDS: PROSOURCE / PROSTAT (PYXIS) 30 ML UDC GT SCH ×3 (08:30→17:41)
[2019-12-22] MEDS: ATENOLOL 25 MG TABLET GT SCH (08:30)
[2019-12-22] MEDS: HYDROGEL DRESSING 90 GM TUBE TP SCH (08:32)
[2019-12-22] MEDS: Z GUARD REMEDY 2 OZ OINT TP SCH (08:33)
[2019-12-22] MEDS: SILVER SULFADIAZINE 50 GM JAR TP SCH (08:34)
[2019-12-22] MEDS: NEPRO 1,000 ML BOTTLE GT PRN (08:44)
[2019-12-22 12:00] VITALS: BP 112/64
--- NOTE | 2019-12-22 13:45 | NUR ---
RECEIVED PT TRANSFER FROM RIMMA AND RECEIVED REPORT FROM,LON WRAY. RECEIVED PATIENT SLEEPING IN BED COMFORTABLY, AWAKENS TO PHYSICAL STIMULI. PT IS OBTUNDED, NON-VERBAL, AND BEDBOUND. HE IS ON MECH VENT, VIA PORTEX 8 TRACH, TOLERATING SETTINGS WELL. TELE MONITOR SHOWING SR. MULTIPLE WOUNDS PRESENT BILATERAL FEET, SACRAL, BILATERAL BUTTOCKS WITH TX ORDERS DONE ORDERED. IV SITE ON RHAND 24 G IS PATENT AND INTACT, L SUBCLAVIAN PERMA CATH IS PATENT AND INTACT. GTUBE PATENT AND INTACT, INFUSING NEPRO AT 40 ML/HR, NO RESIDUAL. SAFETY MEASURES HAVE BEEN IMPLEMENTED, CALL LIGHT IS WITHIN REACH, BED IS IN LOWEST AND LOCKED POSITION, SIDE RAILS UP X2, WILL CONTINUE TO MONITOR FOR ANY CHANGES
--- NOTE | 2019-12-22 13:49 | NUR ---
LON NOTES PT TRANFERRED TO ROOM 313-1, REPORT GIVEN TO LUANNE FORREST FOR DENNIS Addendum: 12/22/19 at 1350 by BAUDILIO JAMESON RN ENDORSED TO RN TO ADMIN AMIKACIN PER RX.
--- NOTE | 2019-12-22 14:25 | NUR ---
NOTIFIED PHARMACIST,PHIL THAT PT HAS NO HEMODIALYSIS TODAY AND PHIL STATED ITS OK TO ADMINISTER THE AMIKACIN SINCE THE PT HASN'T RECEIVED IT YESTERDAY POST HD.AMIKACIN LEVEL TODAY IS 7.2 AND THE AMIKACIN LEVEL YESTERDAY WAS 13 WHICH IS THE REASON WHY RIMMA WRAY RN HELD IN ADMINISTERING THE AMIKACIN IV POST HD YESTERDAY EXPLAINED BY RIMMA WRAY RN.
[2019-12-22] MEDS: AMIKACIN 450 MG in IV D5W 100 ML IV PRN (15:38)
--- NOTE | 2019-12-22 15:39 | NUR ---
ADMINISTERED AMIKACIN IV .AMIKACIN LEVEL IS 7.2 LEVEL.
[2019-12-22 16:00] VITALS: BP 105/67
[2019-12-22] MEDS: CEFTRIAXONE 1 G in IV D5W 50 ML IV SCH (17:42)
--- NOTE | 2019-12-22 19:30 | NUR ---
TELE/RN NOTES RECEIVED PATIENT SLEEPING IN BED COMFORTABLY, AWAKENS TO PHYSICAL STIMULI. PT IS OBTUNDED, NON-VERBAL, AND BEDBOUND. PATIENT ON MECH VENT, VIA PORTEX 8 TRACH, TOLERATING SETTINGS WELL. TELE MONITOR SHOWING SR 80. IV SITE ON RIGHT HAND #24 G IS PATENT AND INTACT FLUSHING WITH NO RESISTANT, LEFT SUBCLAVIAN PERMA CATH IS PATENT AND INTACT. PATINETS G-TUBE IS PATENT AND INTACT, DRESSING CLEAN AND DRY, INFUSING NEPRO AT 40 ML/HR, NO RESIDUAL NOTED. SAFETY MEASURES ARE IN PLACE, CALL LIGHT IS WITHIN REACH, BED IS IN LOWEST AND LOCKED POSITION, SIDE RAILS UP X2, WILL CONTINUE TO MONITOR THROUGHOUT SHIFT.
--- NOTE | 2019-12-22 19:32 | NUR ---
PT RESTING IN BED WITH HOB ELEVATED WITH ONGOING GT FEEDING NEPRO AT 40 ML/HR.NO S/S OF HYPO/HYPERGLYCEMIA. NO S/S OF PAIN OR DISTRESS.TURNED EVERY TWO HRS.NEEDS ANTICIPATED AND ATTENDED.
[2019-12-22 20:16] VITALS: BP 105/68
[2019-12-22] MEDS: VIT B CMPLX 3/FA/VIT C/BIOTIN 1 TAB TABLET GT SCH (21:07)
[2019-12-23] VITALS: BP 110/71
[2019-12-23] MEDS: IPRATROPIUM BROMIDE 14 GM INHALER (or 12.9 GM) INH SCH ×4 (01:38→19:01)
[2019-12-23] MEDS: ALBUTEROL SULFATE 8 GM HFA.AER.AD IH SCH ×4 (01:38→19:01)
[2019-12-23 04:40] VITALS: BP 110/72
[2019-12-23] MEDS: BLOOD SUGAR DIAGNOSTIC 1 EACH STRIP IN SCH ×3 (05:56→17:08)
--- NOTE | 2019-12-23 06:30 | NUR ---
TELE/RN CLOSING NOTES PATIENT IS SLEEPING IN BED. PATIENT IS ALERT AND ORIENTED X 1, OBTUNDED, NON-VERBAL. PATIENT ON MECH VENT, VIA PORTEX 8 TRACH, TOLERATING SETTINGS WELL. TELE MONITOR SHOWING SR 80-81. IV SITE ON RIGHT HAND #24 G IS PATENT AND INTACT FLUSHING WITH NO RESISTANT, LEFT SUBCLAVIAN PERMA CATH IS PATENT AND INTACT.G-TUBE IS PATENT AND INTACT, DRESSING CLEAN AND DRY, INFUSING NEPRO AT 40 ML/HR, NO RESIDUAL NOTED. SAFETY MEASURES ARE IN PLACE, CALL LIGHT IS WITHIN REACH, BED IS IN LOWEST AND LOCKED POSITION, SIDE RAILS UP X3, WILL ENDORSE CARE OF PATIENT TO DAY SHIFT.
[2019-12-23 06:46] LABS: CALCIUM, SERUM 8.9 mg/dL (8.5-10.1); POTASSIUM 4.2 mmol/L (3.5-5.1)
[2019-12-23 06:51] LABS: CREATININE 9.2 mg/dL (0.6-1.3)
--- NOTE | 2019-12-23 07:43 | NUR ---
OFFSET PRESS OPERATOR HELPER OPENING NOTE PATIENT IN BED RESTING COMFORTABLY.PATIENT ON MECHANICAL VENT AND TOLERATING VENT SETTINGS WELL. PATIENT IS ALERT AND ORIENTED X1, NONVERBAL, AND OBTUNDED. PATIENT IN NO ACUTE DISTRESS. NO SOB NOTED. PATIENT BREATHING IS EVEN AND UNLABORED. PATIENT ON CARDIAC MONITORING READING SINUS RHYTHM HR 79. PATIENT GTUBE PATENT AND INTACT. PATIENT BED ALARM IS ON. PATIENT SAFETY PRECAUTIONS IN PLACE. PATIENT BED IS LOCKED AND IN LOWEST POSITION. CALL LIGHT WITHIN REACH. WILL CONTINUE TO MONITOR.
[2019-12-23 08:00] VITALS: BP 96/63
[2019-12-23] MEDS: ATENOLOL 25 MG TABLET GT SCH (09:00)
[2019-12-23] MEDS: DOCUSATE SODIUM LIQ 100 MG/10 ML UDC GT SCH ×2 (09:17→16:04)
[2019-12-23] MEDS: ASCORBIC ACID 500 MG TABLET GT SCH (09:18)
[2019-12-23] MEDS: PANTOPRAZOLE 40 MG/PACK PACK GT SCH (09:18)
[2019-12-23] MEDS: methylPREDNISolone (4MG) 4 MG TABLET GT SCH (09:18)
[2019-12-23] MEDS: DAKINS QUARTER STRENGTH (0.125%) 480 ML BOTTLE TOP SCH (09:19)
[2019-12-23] MEDS: HYDROGEL DRESSING 90 GM TUBE TP SCH (09:19)
[2019-12-23] MEDS: Z GUARD REMEDY 2 OZ OINT TP SCH (09:19)
[2019-12-23] MEDS: SILVER SULFADIAZINE 50 GM JAR TP SCH (09:20)
[2019-12-23] MEDS: PROSOURCE / PROSTAT (PYXIS) 30 ML UDC GT SCH ×3 (09:21→16:04)
--- NOTE | 2019-12-23 12:23 | NUR ---
ENGLISH PROFESSOR NOTE PATIENT BLOOD SUGAR IS 89. NO INSULIN COVERAGE NEEDED PER PROTOCOL.
--- NOTE | 2019-12-23 15:16 | NUR ---
SALESPERSON TOY TRAINS AND ACCESSORIES NOTE ORDER FOR KLEBSIELLA IN URINE TO BE TESTED AGAINST COLISTIN, DORIPENEM, AVYCAZ, ZERBAXA. CALLED TO [facility] AND SPOKE WITH KAMALA. PER KAMALA PRIOR URINE THAT WAS SENT FOR TESTING HAS BEEN THROWN AWAY SINCE IT HAD BEEN A WEEK SINCE ORDERED. PER KAMALA PROVIDE NEW SPECIMEN AND SEND TO LAB. URINE WAS PROVIDED BY STRAIGHT CATHETER. ONLY MINIMAL URINE WAS PROVIDED DURING CATHETERIZATION AND SENT TO LAB.
[2019-12-23] MEDS: NEPRO 1,000 ML BOTTLE GT PRN (15:24)
[2019-12-23 16:00] VITALS: BP 97/66
[2019-12-23] MEDS: CEFTRIAXONE 1 G in IV D5W 50 ML IV SCH (16:04)
--- NOTE | 2019-12-23 17:08 | NUR ---
SENIOR WEB SERVICES DEVELOPER NOTE PATIENT BLOOD SUGAR IS 102. NO INSULIN COVERAGE NEEDED PER PROTOCOL.
--- NOTE | 2019-12-23 18:00 | NUR ---
PLASTICS FITTER NOTE PATIENT HAD DIALYSIS IN THE AFTERNOON. AFTER COMPLETION OF DIALYSIS I MADE AWARE TO POP IN PHARMACY TO OBTAIN AMIKACIN IV BAG DOSE FOR POST DIALYSIS DOSE ORDERED. PER POP HE HAD TO OBTAIN AMIKACIN LEVEL BEFORE ADMINISTRATION. PER LAB AMIKACIN LEVEL WAS SENT OUT TO LAB [facility] FOR REVIEW AND WILL NOT BE RESULTED TODAY. I INFORMED POP AMIKACIN LEVEL WILL NOT BE AVAILABLE TODAY FOR RESULTS. PER POP FROM PHARMACY WILL NOT BE ABLE TO GIVE AMIKACIN IV BAG DOSE TODAY WITHOUT LEVEL. PER POP IT IS OKAY NOT TO ADMINISTER DOSE TODAY.
[2019-12-23] MEDS: AMIKACIN 450 MG in IV D5W 100 ML IV PRN (18:29)
--- NOTE | 2019-12-23 18:30 | NUR ---
SURVEILLANCE OFFICER NOTE PATIENT ON CARDIAC MONITORING READING SINUS RHYTHM HR 85.
--- NOTE | 2019-12-23 18:52 | NUR ---
HOSPICE SUPERINTENDENT CLOSING NOTE PATIENT IN BED RESTING COMFORTABLY. PATIENT ON MECHANICAL VENT, TOLERATING VENT SETTINGS WELL. PATIENT IN NO ACUTE DISTRESS. NO SOB NOTED. PATIENT BREATHING IS EVEN AND UNLABORED. PATIENT KEPT CLEAN, DRY, AND COMFORTABLE THROUGHOUT SHIFT. PATIENT NEEDS AND CONCERNS ADDRESSED. WOUND CARE PROVIDED ORDERED. PATIENT TURNED AND REPOSITIONED Q2H. GTUBE PATENT AND INTACT. PATIENT BED ALARM IS ON. SAFETY PRECAUTIONS IN PLACE. PATIENT BED IS LOCKED AND IN LOWEST POSITION. CALL LIGHT WITHIN REACH. WILL ENDORSE CARE TO PM SHIFT FOR DENNIS.
[2019-12-23 20:00] VITALS: BP 102/69
--- NOTE | 2019-12-23 20:00 | NUR ---
FLIGHT DECK OFFICER OPENING NOTE: Received patient in bed, sleeping comfortably. Patient shows no signs of pain or discomfort. Patient is in no acute distress. Patient on mechanical ventilator and tolerating settings; O2 sat 100. No SOB. IV site on right hand, 22 gauge. IV site patent, no redness or infiltration. Patient on cardiac monitoring; normal sinus rhythm with HR at 83. Safety precaution is in place; bed alarm on, bed in lowest position, side rails x2 are up, bed is locked, and call light is within reach.
[2019-12-23] MEDS: VIT B CMPLX 3/FA/VIT C/BIOTIN 1 TAB TABLET GT SCH (23:08)
[2019-12-24] VITALS: BP 96/63
[2019-12-24] MEDS: BLOOD SUGAR DIAGNOSTIC 1 EACH STRIP IN SCH ×4 (00:21→17:18)
[2019-12-24] MEDS: ALBUTEROL SULFATE 8 GM HFA.AER.AD IH SCH ×4 (01:19→20:06)
[2019-12-24] MEDS: IPRATROPIUM BROMIDE 14 GM INHALER (or 12.9 GM) INH SCH ×4 (01:19→20:06)
[2019-12-24 04:00] VITALS: BP 104/65
--- NOTE | 2019-12-24 05:34 | NUR ---
PATIENT RECEIVED ON TRACH TO VENT WITH SETTINGS OF AC 14, 500 Vt, 40%, +0. SUCTIONED FOR MINIMAL, THIN, WHITE SECRETIONS. GIVEN MDI TREATMENTS WITH NO ADVERSE REACTIONS. AMBU BAG AT BEDSIDE. VENT AND PULSE OXIMETER ALARMS AUDIBLE AND VISIBLE. VENT PLUGGED INTO RED OUTLET. Addendum: 12/24/19 at 0534 by STACI DOYLE RT Amended: Links added.
[2019-12-24] MEDS: INSULIN REGULAR, HUMAN 100 UNIT/ML 3 ML VIAL SQ PRN (05:38)
--- NOTE | 2019-12-24 06:40 | NUR ---
FARMER VEGETABLE CLOSING NOTE: Patient in bed sleeping comfortably. Patient shows no signs of pain or discomfort. Patient is in no acute distress. Patient on mechanical ventilator and tolerating settings; O2 sat 100. No SOB. Patient on cardiac monitoring; normal sinus rhythim with HR at 89. Safety precaution is in place; bed alarm on, bed in lowest pisition, side rails x2 are up, bed is locked, and call light is within reach. Will endorse to next shift.
[2019-12-24 07:17] LABS: BASOPHILS # (AUTO) 0.1 /CMM (0.0-0.2); BASOPHILS % (AUTO) 0.5 % (0.0-2.0); EOSINOPHILS % (AUTO) 2.8 % (0.0-6.0); HEMATOCRIT 35 % (39-51); HEMOGLOBIN 10.7 g/dL (13.5-17.5); LYMPHOCYTES # (AUTO) 1.7 /CMM (0.8-4.8); LYMPHOCYTES % (AUTO) 12.4 % (20.0-44.0); MEAN CORPUSCULAR HGB CONC 31 g/dl (31.0-36.0); MEAN CORPUSCULAR VOLUME 97 fL (80-96); MONOCYTES # (AUTO) 1.2 /CMM (0.1-1.30); MONOCYTES % (AUTO) 8.8 % (2.0-12.0); NEUTROPHILS # (AUTO) 10.4 /CMM (1.8-8.9); NEUTROPHILS % (AUTO) 75.5 % (43.0-81.0); PLATELET COUNT (AUTO) 169 /CMM (150-450); RED BLOOD CELL COUNT(AUTO) 3.63 MIL/uL (4.5-6.0); WHITE BLOOD COUNT (AUTO) 13.8 K/uL (4.3-11.0)
[2019-12-24 07:19] LABS: IRON, SERUM 86 ug/dl (50-175); TOTAL IRON BINDING CAPACITY 128 ug/dl (250-450)
--- NOTE | 2019-12-24 07:25 | NUR ---
RN OPENING NOTES PATIENT IN BED RESTING COMFORTABLY.PATIENT ON MECHANICAL VENT AND TOLERATING VENT SETTINGS WELL. PATIENT IS NONVERBAL, AND OBTUNDED. NO S/S OF PAIN OR DISCOMFORT AT THIS TIME. PATIENT IN NO ACUTE DISTRESS. NO SOB NOTED. PATIENT BREATHING IS EVEN AND UNLABORED. PATIENT ON CARDIAC MONITORING READING SINUS RHYTHM HR 86. PATIENT GTUBE PATENT AND INTACT. PATIENT BED ALARM IS ON. PATIENT SAFETY PRECAUTIONS IN PLACE. PATIENT BED IS LOCKED AND IN LOWEST POSITION. CALL LIGHT WITHIN REACH. WILL CONTINUE TO MONITOR ACCORDINGLY.
[2019-12-24 07:30] VITALS: BP 101/67
[2019-12-24 07:36] LABS: CALCIUM, SERUM 9.5 mg/dL (8.5-10.1); CREATININE 7.2 mg/dL (0.6-1.3); POTASSIUM 4.8 mmol/L (3.5-5.1)
[2019-12-24 08:09] LABS: FERRITIN 2930 ng/mL (8-388)
[2019-12-24] MEDS: DOCUSATE SODIUM LIQ 100 MG/10 ML UDC GT SCH ×2 (08:48→17:17)
[2019-12-24] MEDS: ASCORBIC ACID 500 MG TABLET GT SCH (08:49)
[2019-12-24] MEDS: methylPREDNISolone (4MG) 4 MG TABLET GT SCH (08:49)
[2019-12-24] MEDS: ATENOLOL 25 MG TABLET GT SCH (09:00)
[2019-12-24] MEDS: PROSOURCE / PROSTAT (PYXIS) 30 ML UDC GT SCH ×3 (09:06→17:18)
[2019-12-24] MEDS: PANTOPRAZOLE 40 MG/PACK PACK GT SCH (09:06)
[2019-12-24] MEDS: DAKINS QUARTER STRENGTH (0.125%) 480 ML BOTTLE TOP SCH (09:08)
[2019-12-24] MEDS: HYDROGEL DRESSING 90 GM TUBE TP SCH (09:08)
[2019-12-24] MEDS: Z GUARD REMEDY 2 OZ OINT TP SCH (09:09)
[2019-12-24] MEDS: SILVER SULFADIAZINE 50 GM JAR TP SCH (09:10)
[2019-12-24 12:00] VITALS: BP 114/73
[2019-12-24] MEDS: CEFTRIAXONE 1 G in IV D5W 50 ML IV SCH (17:19)
--- NOTE | 2019-12-24 18:49 | NUR ---
RN CLOSING NOTES PATIENT IN STABLE CONDITION. ALL NEEDS ATTENDED AND PROVIDED. ALL DUE MEDS GIVEN ORDERED. TURNED AND REPOSITIONED PATIENT EVERY 2HRS AND NEEDED. WOUND CARE RENDERED. KEPT PATIENT SAFE AND COMFORTABLE. BED IN LOW/LOCKED POSITION. SIDERAILS UP, CALL LIGHT IN REACH. WILL ENDORSE TO NIGHT RN ACCORDINGLY.
--- NOTE | 2019-12-24 19:16 | NUR ---
telephoner opening note received patient on isolation for vre urine. patient in bed. patient is obtunded. on mechanical ventilator. respirations are even and unlabored. no s/s sob noted. no resp distress noted. no s/s pain at this time. external tele monitor reads sinus rhythm hr 89. in no apparent distress. iv access in right hand#24 patent and saline locked. left subclavian permacath noted. gtube is present, residual, flushed with no resistance, running nepro@40ml/hr. . bed is low and locked, hob elevated in semi fowlers. side rial sup x2, call light within reach.w ill continue to monitor.
[2019-12-24 20:00] VITALS: BP 104/64
[2019-12-24] MEDS: NEPRO 1,000 ML BOTTLE GT PRN (21:45)
[2019-12-24] MEDS: VIT B CMPLX 3/FA/VIT C/BIOTIN 1 TAB TABLET GT SCH (21:45)
[2019-12-25] VITALS: BP 110/76
[2019-12-25] MEDS: BLOOD SUGAR DIAGNOSTIC 1 EACH STRIP IN SCH ×5 (00:07→23:51)
[2019-12-25] MEDS: INSULIN REGULAR, HUMAN 100 UNIT/ML 3 ML VIAL SQ PRN (00:14)
[2019-12-25] MEDS: ALBUTEROL SULFATE 8 GM HFA.AER.AD IH SCH ×4 (01:00→20:26)
[2019-12-25] MEDS: IPRATROPIUM BROMIDE 14 GM INHALER (or 12.9 GM) INH SCH ×4 (01:00→20:27)
[2019-12-25 04:00] VITALS: BP 109/71
[2019-12-25 05:07] LABS: OCCULT BLOOD STOOL NEGATIVE (NEGATIVE)
--- NOTE | 2019-12-25 06:08 | NUR ---
telephoto installer closing note on isolation for vre urine. patient in bed, obtunded. on mechanical ventilator: portex#8, ac 14, tv 500, fio2 40%, peep 0. respirations are even and unlabored. no sob noted. no resp distress noted. no pain noted. external tele monitor reads sinus rhythm. no distress noted. iv access maintained in right hand#24 patent and saline locked. left subclavian permacath maintained. gtube is running nepro@40ml/hr. bed remains low and locked, hob elevated in semi fowlers, side rial sup x2, call light within reach. will endorse to next shift.
[2019-12-25 08:00] VITALS: BP 110/72
--- NOTE | 2019-12-25 08:00 | NUR ---
SOFTWARE ENGINEER SALES OPENING NOTES RECEIVED PATIENT IN BED RESTING COMFORTABLY. NON VERBAL. BUT OPENS EYES HOWEVER, UNABLE TO FOLLOW SIMPLE COMMANDS. NO CARDIAC OR RESPIRATORY DISTRESS NOTED. NO SOB NOTED. SATURATING AT 96%. PATIENT ON MECHANICAL VENT, VENT SETTINGS FOLLOWS: PORTEX 8, AC 14, TV 500, FIO2 40%, PEEP 0. TOLERATING VENT SETTINGS WELL. NO S/S OF PAIN OR DISCOMFORT AT THIS TIME. PATIENT BREATHING IS EVEN AND UNLABORED. PATIENT ON CARDIAC MONITORING READING SINUS RHYTHM HR 90. GTUBE PATENT AND INTACT. FLUSHED WITH H20. AUSCULTATED. NO GASTRIC RESIDUALS NOTED. IV ACCESS NOTED ON R HAND G24. INTACT AND PATENT AND FLUSHING WELL. NO S/S OF INFECTION OF INFILTRATION NOTED. PT ALSO HAS A L SUBCLAVIAN PERMACATH FO DIALYSIS. PER REPORT, PT WAS LAST DIALYZED ON 12/22. SAFETY PRECAUTIONS IN PLACE. BED LOCKED AND IN LOW POSITION. SIDE RAILS UP X2. BED ALALRM ON. CALL LIGHT WITHIN REACH. WILL CONT TO MONITOR.
[2019-12-25] MEDS: PANTOPRAZOLE 40 MG/PACK PACK GT SCH (08:54)
[2019-12-25] MEDS: ASCORBIC ACID 500 MG TABLET GT SCH (08:54)
[2019-12-25] MEDS: DOCUSATE SODIUM LIQ 100 MG/10 ML UDC GT SCH ×2 (08:54→17:25)
[2019-12-25] MEDS: PROSOURCE / PROSTAT (PYXIS) 30 ML UDC GT SCH ×3 (08:55→17:25)
[2019-12-25] MEDS: ATENOLOL 25 MG TABLET GT SCH (08:55)
[2019-12-25] MEDS: Z GUARD REMEDY 2 OZ OINT TP SCH (08:55)
[2019-12-25] MEDS: methylPREDNISolone (4MG) 4 MG TABLET GT SCH (08:57)
[2019-12-25] MEDS: DAKINS QUARTER STRENGTH (0.125%) 480 ML BOTTLE TOP SCH (09:00)
[2019-12-25] MEDS: HYDROGEL DRESSING 90 GM TUBE TP SCH (09:00)
--- NOTE | 2019-12-25 09:00 | NUR ---
DIALYSIS DIALYSIS NURSE CURRENT BY BEDSIDE PT GETTING DIALYZED AT THIS TIME.
[2019-12-25] MEDS: SILVER SULFADIAZINE 50 GM JAR TP SCH (09:01)
--- NOTE | 2019-12-25 12:00 | NUR ---
S/P DIALYSIS PT DIALYZED TODAY. 2L WAS TAKEN OUT.
[2019-12-25 16:00] VITALS: BP 108/73
--- NOTE | 2019-12-25 18:00 | NUR ---
IV RE-INSERTION IV RE-INSERTED ON THE L HAND G24. INTACT AND PATENT AND FLUSHING WELL. NO S/S OF INFILTRATION NOTED.
--- NOTE | 2019-12-25 18:41 | NUR ---
COMPUTER ENGINEERING TECHNICIAN CLOSING NOTES PATIENT IN BED RESTING COMFORTABLY. ASLEEP. NON VERBAL. BUT OPENS EYES HOWEVER, UNABLE TO FOLLOW SIMPLE COMMANDS. NO CARDIAC OR RESPIRATORY DISTRESS NOTED. NO SOB NOTED. SATURATING AT 96%. PATIENT ON MECHANICAL VENT, VENT SETTINGS FOLLOWS: PORTEX 8, AC 14, TV 500, FIO2 40%, PEEP 0. TOLERATING VENT SETTINGS WELL. NO S/S OF PAIN OR DISCOMFORT AT THIS TIME. PT WAS DIALYZED TODAY, 2L WAS TAKEN OUT. WOUND CARE TX DONE. ON CARDIAC MONITORING READING SINUS RHYTHM HR 90. GTUBE PATENT AND INTACT. FLUSHED WITH H20. AUSCULTATED. NO GASTRIC RESIDUALS NOTED. IV ACCESS RE-INSERTED ON THE L HAND G24. INTACT AND PATENT AND FLUSHING WELL. NO S/S OF INFECTION OF INFILTRATION NOTED. PT ALSO HAS A L SUBCLAVIAN PERMACATH FOR DIALYSIS. PER REPORT, PT WAS LAST DIALYZED ON 12/22. SAFETY PRECAUTIONS IN PLACE. BED LOCKED AND IN LOW POSITION. SIDE RAILS UP X2. BED ALARM ON. CALL LIGHT WITHIN REACH. WILL ENDORSE TO NEXT SHIFT
--- NOTE | 2019-12-25 19:32 | NUR ---
PRODUCTION HARDENER OPENING NOTES PATIENT OBTUNDED AND VENT DEPENDENT. TOLERATING VENT SETTINGS WELL; SPO2 100%; BREATHING IS EVEN AND UNLABORED. TELE MONITOR READING NSR, HEART RATE 83. G-TUBE FEEDING PRESENT WITH NEPHRO RUNNING AT 40 ML/HR; TOLERATING WELL. IV PRESENT ON LEFT HAND, SIZE 24, INTACT AND PATENT, HEP LOCKED. CONTACT PRECAUTIONS IN PLACE FOR VRE URINE. SAFETY MEASURES IN PLACE AND PATIENT'S NEEDS MET. BED LOCKED, ALARM ON, SIDE RAILS X3, HOB ELEVATED. WILL CONTINUE TO MONITOR.
[2019-12-25 20:00] VITALS: BP 104/72
[2019-12-25] MEDS: VIT B CMPLX 3/FA/VIT C/BIOTIN 1 TAB TABLET GT SCH (22:02)
[2019-12-26] VITALS: BP 135/77
--- NOTE | 2019-12-26 00:13 | NUR ---
RT NOTE Pt rec'd trached on [facility] vent on AC mode. Pt shows no signs of resp distress or sob. trach is patent and secured. pt sx'd for thick mod amt of pale yellow secretions. Alarms are set and audible. Vent plugged into red outlet. Ambu bag bedside. Will continue to monitor. Addendum: 12/26/19 at 0015 by EFRAIN PATTERSON RT Amended: Links added.
[2019-12-26] MEDS: IPRATROPIUM BROMIDE 14 GM INHALER (or 12.9 GM) INH SCH ×4 (02:11→20:08)
[2019-12-26] MEDS: ALBUTEROL SULFATE 8 GM HFA.AER.AD IH SCH ×4 (02:11→20:08)
[2019-12-26 03:52] VITALS: BP 117/71
[2019-12-26] MEDS: ACETAMINOPHEN 650 MG/20.3 ML UDC GT PRN (03:53)
--- NOTE | 2019-12-26 03:53 | NUR ---
SECTION LEADER AND MACHINE SETTER NOTES PATIENT'S TEMP 100.7. PROVIDED COOLING MEASURES AND ADMINISTERED PRN TYLENOL 650 MG VIA GTUBE. TELE MONITOR READING NSR, HEART RATE 89. WILL CONTINUE TO MONITOR.
[2019-12-26 04:00] VITALS: BP 117/71
--- NOTE | 2019-12-26 04:57 | NUR ---
TRANSFER OPERATOR NOTES WOUND CARE TREATMENT PROVIDED
[2019-12-26] MEDS: BLOOD SUGAR DIAGNOSTIC 1 EACH STRIP IN SCH ×4 (06:02→23:40)
--- NOTE | 2019-12-26 06:04 | NUR ---
MS RN NOTES PATIENT'S TEMP 99.3
--- NOTE | 2019-12-26 06:31 | NUR ---
EDGE POLISHER CLOSING NOTES PATIENT SLEEPING; OBTUNDED AND VENT DEPENDENT; TOLERATING VENT SETTINGS WELL; ABLE TO OPEN EYES. TELE MONITOR READING NSR, HEART RATE 86. G-TUBE FEEDING WITH NEPHRO RUNNING AT 40 ML/HR; TOLERATING WELL; NO RESIDUALS NOTED. IV PRESENT ON LEFT HAND, SIZE 24, INTACT AND PATENT, HEP LOCKED. SAFETY MEASURES IN PLACE AND PATIENT'S NEEDS MET. BED LOCKED, ALARM ON, SIDE RAILS X3, HOB ELEVATED. WILL ENDORSE TO DAY SHIFT NURSE PLAN OF CARE.
[2019-12-26] MEDS: Z GUARD REMEDY 2 OZ OINT TP SCH (08:00)
--- NOTE | 2019-12-26 08:00 | NUR ---
Tele/RN - Assessment Patient is obtunded, no s/s of pain, afebrile, not in any form of distress, trached and vent dependent with Portex 8 secured and intact, tolerating vent settings AC14, TV500, FiO2 40%, PEEP 5. Tele shows SR. GTF Nepro at 40 ml/hr, tolerating it well, no residual seen. Patient with multiple wounds, will do treatment as ordered, repositioned per protocol. No labs today. Contact precautions maintained. Patient was accepted at [facility], awaiting [place] from insurance. Will continue with current medical management.
[2019-12-26] MEDS: ATENOLOL 25 MG TABLET GT SCH (08:03)
[2019-12-26] MEDS: PANTOPRAZOLE 40 MG/PACK PACK GT SCH (08:03)
[2019-12-26] MEDS: methylPREDNISolone (4MG) 4 MG TABLET GT SCH (08:03)
[2019-12-26] MEDS: ASCORBIC ACID 500 MG TABLET GT SCH (08:03)
[2019-12-26] MEDS: DOCUSATE SODIUM LIQ 100 MG/10 ML UDC GT SCH ×2 (08:03→17:43)
[2019-12-26] MEDS: HYDROGEL DRESSING 90 GM TUBE TP SCH (08:07)
[2019-12-26] MEDS: SILVER SULFADIAZINE 50 GM JAR TP SCH (08:08)
[2019-12-26] MEDS: DAKINS QUARTER STRENGTH (0.125%) 480 ML BOTTLE TOP SCH (08:08)
[2019-12-26] MEDS: PROSOURCE / PROSTAT (PYXIS) 30 ML UDC GT SCH ×3 (08:09→17:43)
[2019-12-26 08:21] VITALS: BP 121/74
[2019-12-26 16:09] VITALS: BP 103/69
--- NOTE | 2019-12-26 18:35 | NUR ---
MS RN CLOSING NOTES Patient is obtunded. No signs of pain. Heart sound S1S2. Breath sounds diminished. No SOB or distress. Afebrile. Trached and vent dependent. Vent settings: AC 14, PEEP 5, TV 500, Portex 8, FiO2 40%. Normal sinus rhythm. GTF @ 40 ml/hr. Patient tolerating well, no residuals. Mepilex dressing changed on right and left buttock and sacrum. Contact precautions maintained.
[2019-12-26] MEDS: NEPRO 1,000 ML BOTTLE GT PRN (19:15)
--- NOTE | 2019-12-26 19:30 | NUR ---
TELE/RN OPENING NOTES RECEIVED PATIENT IS BED RESTING ALERT AND ORIENTED X 1, OBTUNDED. PATIENT SHOWS NO SIGNS OF DISTRESS AT THE MOMENT. TRACH AND VENT DEPENDENT, VENT SETTING: AC 14, PEEP 5, TV 500, PORTEX 8, FiO2 40%. TELE MONIOTR READ NORMAL SR 81-82 BPM. G- TUBE FEEDING RUNNING AT 40ML/HR TOLERATING WELL, NO RESIDUAL. HD CATH LEFT CHEST PERMA CATH INTACT, AND LEFT HAND #24 G INTACT SL. SAFTEY MEASURES ARE IN PLACE, BED LOCKED AND IN LOW POSITION, SIDE RAILS UP X 3. WILL CONTINUE TO MONITOR PATIENT THROUGH OUT SHIFT. Addendum: 12/27/19 at 0317 by GALEN LEMON RN PATIENT VENT SETTING IS A PEEP 0.
[2019-12-26 20:00] VITALS: BP 132/64
[2019-12-26] MEDS: VIT B CMPLX 3/FA/VIT C/BIOTIN 1 TAB TABLET GT SCH (21:38)
[2019-12-27] VITALS: BP 102/71
[2019-12-27] MEDS: ALBUTEROL SULFATE 8 GM HFA.AER.AD IH SCH ×4 (01:18→19:20)
[2019-12-27] MEDS: IPRATROPIUM BROMIDE 14 GM INHALER (or 12.9 GM) INH SCH ×4 (01:18→19:21)
[2019-12-27 04:00] VITALS: BP 106/65
--- NOTE | 2019-12-27 06:05 | NUR ---
TELE/RN CLOSING NOTES NOTES RECEIVED PATIENT IS BED RESTING ALERT AND ORIENTED X 1, OBTUNDED. PATIENT SHOWS NO SIGNS OF DISTRESS AT THE MOMENT. TRACH AND VENT DEPENDENT, VENT SETTING: AC 14, PEEP 0, TV 500, PORTEX 8, FiO2 40%. TELE MONITOR READING NORMAL SR 82 BPM. G- TUBE FEEDING RUNNING AT 40ML/HR TOLERATING WELL, NO RESIDUAL. HD CATH LEFT CHEST PERMA CATH INTACT, AND LEFT HAND #24 G INTACT SL. PATIENTS DRESSING ON SACRUM, BUTTOCKS AND RIGHT FOOT HAVE BEEN CLEANED AND CHANGED. SAFETY MEASURES ARE IN PLACE, BED LOCKED AND IN LOW POSITION, SIDE RAILS UP X 3. WILL ENDORSE CARE TO DAY SHIFT NURSE.
[2019-12-27] MEDS: BLOOD SUGAR DIAGNOSTIC 1 EACH STRIP IN SCH ×3 (06:17→17:09)
[2019-12-27 08:00] VITALS: BP 124/80
--- NOTE | 2019-12-27 08:00 | NUR ---
BRUSH SANDER OPENING NOTE Patient is obtund. No signs of SOB or distress. VSS. No JVD. Heart sounds S1S2. Pulses 2+. No edema. Trach and vent dependent. Vent settings: AC 14, TV 500, Portex 8, FiO2 40%. Normal sinus rhythm, rate in 80s. GTF @ 40 ml/hr. Patient tolerated well, no residual. Left chest permacath clean, dry, intact. IV site LH 24g is patent and intact, no signs of infiltration. Bed in low position, wheels locked, side rails up x2, call light within reach.
[2019-12-27] MEDS: DOCUSATE SODIUM LIQ 100 MG/10 ML UDC GT SCH ×2 (09:20→16:09)
[2019-12-27] MEDS: PANTOPRAZOLE 40 MG/PACK PACK GT SCH (09:21)
[2019-12-27] MEDS: ATENOLOL 25 MG TABLET GT SCH (09:21)
[2019-12-27] MEDS: ASCORBIC ACID 500 MG TABLET GT SCH (09:21)
[2019-12-27] MEDS: methylPREDNISolone (4MG) 4 MG TABLET GT SCH (09:40)
[2019-12-27] MEDS: PROSOURCE / PROSTAT (PYXIS) 30 ML UDC GT SCH ×3 (09:40→16:09)
[2019-12-27] MEDS: DAKINS QUARTER STRENGTH (0.125%) 480 ML BOTTLE TOP SCH (09:45)
[2019-12-27] MEDS: HYDROGEL DRESSING 90 GM TUBE TP SCH (09:45)
[2019-12-27] MEDS: Z GUARD REMEDY 2 OZ OINT TP PRN (09:48)
[2019-12-27] MEDS: SILVER SULFADIAZINE 50 GM JAR TP SCH (09:48)
[2019-12-27] MEDS: Z GUARD REMEDY 2 OZ OINT TP SCH (09:57)
[2019-12-27 10:17] VITALS: BP 124/80
[2019-12-27 16:00] VITALS: BP 100/64
[2019-12-27] MEDS: NEPRO 1,000 ML BOTTLE GT PRN (17:10)
--- NOTE | 2019-12-27 18:16 | NUR ---
MACHINE I CUTTER CLOSING NOTE Patient asleep in bed. Obtund with eyes open to stimuli. No respiratory distress or SOB. Pt is trach and vent dependent. Vent settings: AC 14, PEEP 0, TV 500, PORTEX 8, FiO2 40%. Normal sinus rhythm. GTF @ 40ml/hr. Pt tolerating well with no residuals. Bed in low position, wheels locked, side rails up x2, call light within reach.
--- NOTE | 2019-12-27 19:23 | NUR ---
RT NOTE Pt rec'd trached on [facility] vent on AC mode. Pt shows no signs of resp distress or sob. trach is patent and secured. pt sx'd for thick mod amt of pale yellow secretions. Alarms are set and audible. Vent plugged into red outlet. Ambu bag bedside. Will continue to monitor. Addendum: 12/27/19 at 1923 by JOSE GONZALEZ RT Amended: Links added.
--- NOTE | 2019-12-27 19:30 | NUR ---
TELE/RN OPENING NOTES NOTES RECEIVED PATIENT IS BED RESTING ALERT AND ORIENTED X 1, OBTUNDED. PATIENT SHOWS NO SIGNS OF DISTRESS AT THE MOMENT. TRACH AND VENT DEPENDENT, VENT SETTING: AC 14, PEEP 0, TV 500, PORTEX 8, FiO2 40%. TELE MONITOR READING NORMAL SR 80 BPM. G- TUBE FEEDING RUNNING AT 40ML/HR TOLERATING WELL, NO RESIDUAL. HD CATH LEFT CHEST PERMA CATH INTACT, AND LEFT HAND #24 G INTACT SL. SAFETY MEASURES ARE IN PLACE, BED LOCKED AND IN LOW POSITION, SIDE RAILS UP X 3. WILL CONTINUE TO MONITOR DURING SHIFT.
[2019-12-27 20:00] VITALS: BP 105/61
[2019-12-27] MEDS: ACETAMINOPHEN 650 MG/20.3 ML UDC GT PRN (22:07)
[2019-12-27] MEDS: VIT B CMPLX 3/FA/VIT C/BIOTIN 1 TAB TABLET GT SCH (22:07)
--- NOTE | 2019-12-27 22:10 | NUR ---
TELE/RN NOTES PATIENT TEMP AT 99.8, TYLENOL 650 SUSP. WAS GIVEN VIA G-TUBE. WILL CONTINUE TO MONITOR PATIENT.
--- NOTE | 2019-12-27 23:10 | NUR ---
TELE/RN NOTES PATIENT TEMP IS TRENDING DOWN, TEMP AT 98.3. WILL CONTINUE TO MONITOR.
[2019-12-28] VITALS: BP 102/55
[2019-12-28] MEDS: IPRATROPIUM BROMIDE 14 GM INHALER (or 12.9 GM) INH SCH ×4 (00:37→19:55)
[2019-12-28] MEDS: ALBUTEROL SULFATE 8 GM HFA.AER.AD IH SCH ×4 (00:38→19:55)
[2019-12-28] MEDS: BLOOD SUGAR DIAGNOSTIC 1 EACH STRIP IN SCH ×4 (00:53→17:18)
[2019-12-28 04:00] VITALS: BP 121/70
--- NOTE | 2019-12-28 06:35 | NUR ---
TELE/RN CLOSING NOTES NOTES PATIENT IN BED RESTING ALERT AND ORIENTED X 1, OBTUNDED. PATIENT SHOWS NO SIGNS OF DISTRESS. TRACH AND VENT DEPENDENT, VENT SETTING: AC 14, PEEP 0, TV 500, PORTEX 8, FiO2 40%. TELE MONITOR READING NORMAL SR 81 BPM. PATIENT SACRAL AND BUTTOCKS DRESSING HAVE BEEN CHANGED, LOWER EXTREMITY DRESSING STILL INTACT. G-TUBE FEEDING RUNNING AT 40ML/HR TOLERATING WELL, NO RESIDUAL. HD CATH LEFT CHEST PERMA CATH INTACT, AND LEFT HAND #24 G INTACT SL. METS NEEDS HAVE BEEN MET DURING SHIFT. SAFETY MEASURES ARE IN PLACE, BED LOCKED AND IN LOW POSITION, SIDE RAILS UP X 3.
--- NOTE | 2019-12-28 08:00 | NUR ---
NON DESTRUCTIVE TESTING SUPERVISOR OPENING NOTE Patient asleep in bed. Obtund, eyes open with stimuli. Breath sounds diminished, even, unlabored. Tele monitor normal sinus rhythm. No signs of SOB or acute distress. No JVD. Wound dressing to sacrum, left and right buttock intact. Wound dressing on bilateral heels dry, intact. Skin color appropriate for ethnicity, warm and dry. IV site LH 24g SL patent. No signs of infiltration. Bowel sounds normoactive. Bed in low position, wheels locked, side rails up x2, call light within reach.
[2019-12-28 08:14] VITALS: BP 113/68
[2019-12-28] MEDS: DOCUSATE SODIUM LIQ 100 MG/10 ML UDC GT SCH ×2 (09:36→17:13)
[2019-12-28] MEDS: ATENOLOL 25 MG TABLET GT SCH (09:36)
[2019-12-28] MEDS: PANTOPRAZOLE 40 MG/PACK PACK GT SCH (09:36)
[2019-12-28] MEDS: ASCORBIC ACID 500 MG TABLET GT SCH (09:36)
[2019-12-28] MEDS: PROSOURCE / PROSTAT (PYXIS) 30 ML UDC GT SCH ×3 (09:37→17:13)
[2019-12-28] MEDS: methylPREDNISolone (4MG) 4 MG TABLET GT SCH (09:38)
[2019-12-28] MEDS: DAKINS QUARTER STRENGTH (0.125%) 480 ML BOTTLE TOP SCH (09:53)
[2019-12-28] MEDS: Z GUARD REMEDY 2 OZ OINT TP PRN (09:53)
[2019-12-28] MEDS: SILVER SULFADIAZINE 50 GM JAR TP SCH (09:54)
[2019-12-28] MEDS: Z GUARD REMEDY 2 OZ OINT TP SCH (09:55)
[2019-12-28] MEDS: HYDROGEL DRESSING 90 GM TUBE TP SCH (09:55)
[2019-12-28 10:09] VITALS: BP 113/68
[2019-12-28 16:16] VITALS: BP 106/52
--- NOTE | 2019-12-28 17:32 | NUR ---
RT NOTE: RECEIVED TRACH PT ON ORDERED NOTED VENT SETTINGS. NO RESPIRATORY DISTRESS NOTED. TRACH CHECKED SECURE AND PATENT. SXD AND LAVAGE Q ROUND AND NEEDED. MDI'S GIVEN WITH NO ADVERSE EFFECTS NOTED. TRACH CARE DONE. EMERGENCY EQUIPMENT @ BEDSIDE. ALARMS ON CHECKED AND AUDIBLE. VENT PLUGGED INTO RED OUTLET.
--- NOTE | 2019-12-28 17:58 | NUR ---
TEACHER KINDERGARTEN CLOSING NOTE Pt is awake in bed. Obtund with eyes open to stimuli. Skin warm, pink, and dry. No signs of SOB or acute distress. No N/V/C. Vent settings: TV 500, Portex 8, AC 14, FiO2 40%. Wound dressing changed on BL foot and sacrum. GTF @ 40 ml/hour. Pt tolerating well, no residual. Left chest permacath intact. IV site left hand 24g patent and intact, SL. Bed in low position, wheels locked, side rails up x2, call light within reach. Will endorse to night nurse.
--- NOTE | 2019-12-28 19:05 | NUR ---
VETERINARY TECHNICIAN INSTRUCTOR CLOSING NOTE Pt in bed resting. pt obtund, eyes open to stimuli. No signs of SOB or acute distress. Pt with Vent settings: TV 500, Portex 8, AC 14, FiO2 40%. Pt with GTF @ 40 ml/hour. Pt tolerating well, no residual. Pt with Left chest permacath intact. IV site left hand 24g patent and intact, SL. Safety measures in place with bed in lowest locked position with side rails up x2. call light within reach. will continue to monitor. Addendum: 12/28/19 at 2357 by MERLINE BEASLEY RN OPENING NOTE
[2019-12-28 20:00] VITALS: BP 124/74
[2019-12-28] MEDS: VIT B CMPLX 3/FA/VIT C/BIOTIN 1 TAB TABLET GT SCH (21:05)
--- NOTE | 2019-12-28 21:30 | NUR ---
RT NOTE PT RECEIVED TRACHED ON MECHANICAL VENTILATION. AMBU BAG @ BEDSIDE. MDI TX GIVEN, NO ADVERSE REACTIONS NOTED. SX DONE, TRACH SECURED AND PATENT. ALARMS ON AND AUDIBLE. NO DISTRESS NOTED. CONT. PULSE OX CONNECTED. WILL MONITOR T/O SHIFT. Addendum: 12/28/19 at 2130 by USAMA JOHNSON RT Amended: Links added.
[2019-12-29] VITALS: BP 123/74
--- NOTE | 2019-12-29 | NUR ---
rn notes: received report form anna arboleda. pt on mech vent trache dependent. ambu bag at bed side, clinical alarms check and audible. peg in placed, receiving nepro at 40ml/hr. pt connected to continuos pulse oximetry, suction set up secured. iv access patent and flushing well, on hl. ble offloaded, on kci mattress. aspiration precaution followed. safety precautions for fall engaged, call light in reach, will continue monitoring pt.
[2019-12-29 00:05] VITALS: BP 123/74
[2019-12-29] MEDS: NEPRO 1,000 ML BOTTLE GT PRN (00:23)
[2019-12-29] MEDS: INSULIN REGULAR, HUMAN 100 UNIT/ML 3 ML VIAL SQ PRN ×2 (00:31→05:48)
[2019-12-29] MEDS: BLOOD SUGAR DIAGNOSTIC 1 EACH STRIP IN SCH ×4 (00:31→17:13)
[2019-12-29] MEDS: ALBUTEROL SULFATE 8 GM HFA.AER.AD IH SCH ×4 (00:43→19:55)
[2019-12-29] MEDS: IPRATROPIUM BROMIDE 14 GM INHALER (or 12.9 GM) INH SCH ×4 (00:43→19:55)
[2019-12-29 04:00] VITALS: BP 103/69
--- NOTE | 2019-12-29 05:49 | NUR ---
accu check 72: blood glucose check performed result is 72, pt on gtube feeding nepro at 40ml/hr.
--- NOTE | 2019-12-29 06:50 | NUR ---
end of shift report: pt tolerated [facility] vent settings well. iv access remains patent and flushing well, on hl, no s/s of iv infiltration noted. remains on gtube feeding, nepro at 40ml/hr. wound care, am care and complete linen change provided to pt. ble kept offloaded. PLAN OF CARE: Pending placement. vs remains stable, needs attended. safety precautions for fall remains engaged, call light in reach, will endorse to day rn for continuity of care.
--- NOTE | 2019-12-29 07:30 | NUR ---
LAW FIRM CONSULTANT OPENING NOTES RECEIVED PATIENT IN BED RESTING COMFORTABLY. NON VERBAL. BUT OPENS EYES HOWEVER, UNABLE TO FOLLOW SIMPLE COMMANDS. NO CARDIAC OR RESPIRATORY DISTRESS NOTED. NO SOB NOTED. SATURATING AT 100%. PATIENT ON MECHANICAL VENT, VENT SETTINGS FOLLOWS: PORTEX 8, AC 14, TV 500, FIO2 40%, PEEP 0. TOLERATING VENT SETTINGS WELL. NO S/S OF PAIN OR DISCOMFORT AT THIS TIME. PATIENT BREATHING IS EVEN AND UNLABORED. PATIENT ON CARDIAC MONITORING READING SINUS RHYTHM HR 86. GTUBE IS PATENT AND INTACT. FLUSHED WITH H20. AUSCULTATED. NO GASTRIC RESIDUALS NOTED. IV ACCESS NOTED ON L HAND G24. INTACT AND PATENT AND FLUSHING WELL. NO S/S OF INFECTION OF INFILTRATION NOTED. PT ALSO HAS A L SUBCLAVIAN PERMACATH FOR DIALYSIS. SAFETY PRECAUTIONS IN PLACE. BED LOCKED AND IN LOW POSITION. SIDE RAILS UP X2. BED ALARM ON. CALL LIGHT WITHIN REACH. WILL CONT TO MONITOR.
[2019-12-29] MEDS: methylPREDNISolone (4MG) 4 MG TABLET GT SCH (08:14)
[2019-12-29] MEDS: DOCUSATE SODIUM LIQ 100 MG/10 ML UDC GT SCH ×2 (08:14→17:12)
[2019-12-29] MEDS: ATENOLOL 25 MG TABLET GT SCH (08:15)
[2019-12-29] MEDS: PROSOURCE / PROSTAT (PYXIS) 30 ML UDC GT SCH ×3 (08:15→17:13)
[2019-12-29] MEDS: PANTOPRAZOLE 40 MG/PACK PACK GT SCH (08:15)
[2019-12-29] MEDS: Z GUARD REMEDY 2 OZ OINT TP SCH (08:15)
[2019-12-29] MEDS: ASCORBIC ACID 500 MG TABLET GT SCH (08:15)
[2019-12-29 08:16] VITALS: BP 109/70
[2019-12-29] MEDS: HYDROGEL DRESSING 90 GM TUBE TP SCH (08:19)
[2019-12-29] MEDS: SILVER SULFADIAZINE 50 GM JAR TP SCH (08:19)
[2019-12-29] MEDS: DAKINS QUARTER STRENGTH (0.125%) 480 ML BOTTLE TOP SCH (08:20)
--- NOTE | 2019-12-29 14:30 | NUR ---
DIALYSIS DIALYSIS NURSE CURRENTLY IN PTS ROOM. PT BEING DIALYZED AT THIS MOMENT.
[2019-12-29 16:00] VITALS: BP 100/66
--- NOTE | 2019-12-29 17:00 | NUR ---
DIALYSIS PT IS S/P HEMODIALYSIS TODAY, PER DIALYSIS NURSE TOOK OUT 1600ML. TOLERATED PROCEDURE WELL.
--- NOTE | 2019-12-29 18:28 | NUR ---
RETAIL INVENTORY CONTROL CLERK CLOSING NOTES PATIENT IN BED RESTING COMFORTABLY. NON VERBAL. BUT OPENS EYES HOWEVER, UNABLE TO FOLLOW SIMPLE COMMANDS. NO CARDIAC OR RESPIRATORY DISTRESS NOTED. NO SOB NOTED. SATURATING AT 100%. PT S/P HEMODIALYSIS TODAY. TOOK OUT 1600ML PER DIALYSIS NURSE. WOUND CARE TX DONE. TOLERATED WELL. PATIENT ON MECHANICAL VENT, VENT SETTINGS FOLLOWS: PORTEX 8, AC 14, TV 500, FIO2 40%, PEEP 0. TOLERATING VENT SETTINGS WELL. NO S/S OF PAIN OR DISCOMFORT AT THIS TIME. PATIENT BREATHING IS EVEN AND UNLABORED. PATIENT ON CARDIAC MONITORING READING SINUS RHYTHM HR 80S. GTUBE IS PATENT AND INTACT. FLUSHED WITH H20. AUSCULTATED. NO GASTRIC RESIDUALS NOTED. IV ACCESS NOTED ON L HAND G24. INTACT AND PATENT AND FLUSHING WELL. NO S/S OF INFECTION OF INFILTRATION NOTED. PT ALSO HAS A L SUBCLAVIAN PERMACATH FOR DIALYSIS. SAFETY PRECAUTIONS IN PLACE. BED LOCKED AND IN LOW POSITION. SIDE RAILS UP X2. BED ALARM ON. CALL LIGHT WITHIN REACH. WILL ENDORSE TO NEXT SHIFT
[2019-12-29 20:45] VITALS: BP 102/69
[2019-12-29] MEDS: VIT B CMPLX 3/FA/VIT C/BIOTIN 1 TAB TABLET GT SCH (21:18)
[2019-12-30] VITALS: BP 105/69
[2019-12-30] MEDS: IPRATROPIUM BROMIDE 14 GM INHALER (or 12.9 GM) INH SCH ×4 (01:59→19:30)
[2019-12-30] MEDS: ALBUTEROL SULFATE 8 GM HFA.AER.AD IH SCH ×4 (01:59→19:30)
[2019-12-30 04:00] VITALS: BP 102/62
[2019-12-30] MEDS: BLOOD SUGAR DIAGNOSTIC 1 EACH STRIP IN SCH ×6 (05:14→23:29)
[2019-12-30 06:27] LABS: BASOPHILS # (AUTO) 0.1 /CMM (0.0-0.2); BASOPHILS % (AUTO) 0.7 % (0.0-2.0); EOSINOPHILS % (AUTO) 4.2 % (0.0-6.0); HEMATOCRIT 30 % (39-51); HEMOGLOBIN 9.3 g/dL (13.5-17.5); LYMPHOCYTES # (AUTO) 1.3 /CMM (0.8-4.8); MEAN CORPUSCULAR HGB CONC 31 g/dl (31.0-36.0); MEAN CORPUSCULAR VOLUME 97 fL (80-96); MONOCYTES # (AUTO) 1.4 /CMM (0.1-1.30); MONOCYTES % (AUTO) 15.1 % (2.0-12.0); NEUTROPHILS # (AUTO) 6.1 /CMM (1.8-8.9); PLATELET COUNT (AUTO) 277 /CMM (150-450); RED BLOOD CELL COUNT(AUTO) 3.11 MIL/uL (4.5-6.0); WHITE BLOOD COUNT (AUTO) 9.3 K/uL (4.3-11.0)
--- NOTE | 2019-12-30 06:30 | NUR ---
MS RN NOTES AWAKE & NON VERBAL. NOT IN ANY DISTRESS. NO SOB NOTED. NO S/SX OF ANY PAIN OR DISCOMFORT AT THIS TIME. WITH SAME VENT SETTINGS. WITH GTF INFUSING WELL. WITH IV-HL PATENT & INTACT. AM CARE DONE. MONITORED ACCORDINGLY. CALL LIGHT WITHIN REACH. BED IN LOWEST POSITION. SR UP X 3 WITH BED ALARM ON FOR SAFETY. WILL ENDORSE TO NEXT SHIFT. Addendum: 12/30/19 at 0714 by MATTIE TOLEDO RN ON TELE SR @ 80
[2019-12-30 06:55] LABS: CREATININE 6.5 mg/dL (0.6-1.3); MAGNESIUM 3.1 mg/dL (1.8-2.4); PHOSPHORUS 4.6 mg/dL (2.5-4.9); POTASSIUM 4.6 mmol/L (3.5-5.1)
--- NOTE | 2019-12-30 07:50 | NUR ---
DIE SET UP WORKER OPENING NOTES RECEIVED PT ON BED, OBTUNDED, ON MECHANICAL VENTILATOR. NOT IN ACUTE RESPIRATORY DISTRESS. NO S/SX OF PAIN AND DISCOMFORT. SKIN WARM TO TOUCH AND DRY. ABD SOFT AND NON DISTENDED WITH ACTIVE BOWEL SOUNDS. ON ISOLATION DUE TO VRE WOUNDS. IV SITE AT LEFT HAND #24 H/L PATENT IN FLUSHING.L, LEFT CHEST PERMA CATH DRESSING CLEAN AND DRY. ON NEPHRO @40 ML/HR X 24 HOURS, G-TUBE FLUSHING, IN PLACE PER AUSCULTATION, RESIDUAL 5 ML, HOB KEPT ELEVATED. ON TELE MONITOR SINUS RHYTHM 81. BED IN LOW LOCKED POSITION, [id number] FOR SAFETY, NEAR NURSING STATION.WILL CONTINUE PLAN OF CARE.
[2019-12-30 08:00] VITALS: BP 98/65
[2019-12-30 08:00] LABS: EOSINOPHILS % (MANUAL) 5 % (0-4); LYMPHOCYTES % (MANUAL) 15 % (16-48); MONOCYTES % (MANUAL) 17 % (0-11.0); NEUTROPHILS % (MANUAL) 63 (42-76)
[2019-12-30] MEDS: PROSOURCE / PROSTAT (PYXIS) 30 ML UDC GT SCH ×3 (08:50→16:47)
[2019-12-30] MEDS: NEPRO 1,000 ML BOTTLE GT PRN (08:50)
[2019-12-30] MEDS: DOCUSATE SODIUM LIQ 100 MG/10 ML UDC GT SCH ×2 (08:50→16:47)
[2019-12-30] MEDS: methylPREDNISolone (4MG) 4 MG TABLET GT SCH (08:50)
[2019-12-30] MEDS: ASCORBIC ACID 500 MG TABLET GT SCH (08:50)
[2019-12-30] MEDS: PANTOPRAZOLE 40 MG/PACK PACK GT SCH (08:50)
[2019-12-30] MEDS: ATENOLOL 25 MG TABLET GT SCH (08:51)
--- NOTE | 2019-12-30 08:51 | NUR ---
TRACTOR DRILL OPERATOR NOTES ATENOLOL 25 MG TAB PO AT 89AM DUE TO GIVEN DUE TO LOW BP. 1ST CHECKED: BP 98/65, HR 83, 2ND CHECKED BP 95/58, HR 94, 3RD CHECKED BP 102/63 HR 92, 4TH CHECKED BP 97/66 HR 90
[2019-12-30] MEDS: DAKINS QUARTER STRENGTH (0.125%) 480 ML BOTTLE TOP SCH (08:57)
[2019-12-30] MEDS: Z GUARD REMEDY 2 OZ OINT TP SCH (08:57)
[2019-12-30] MEDS: HYDROGEL DRESSING 90 GM TUBE TP SCH (08:57)
[2019-12-30] MEDS: SILVER SULFADIAZINE 50 GM JAR TP SCH (08:58)
--- NOTE | 2019-12-30 11:04 | NUR ---
KOSHER BUTCHER NOTES PT SEEN AND EVALUATED BY BOO QUEZADA DNP, NO NEW ORDERS. WAITING FOR PLACEMENT
[2019-12-30 12:00] VITALS: BP 86/57
[2019-12-30 16:00] VITALS: BP 92/57
--- NOTE | 2019-12-30 16:30 | NUR ---
INSPECTOR CANNED FOOD RECONDITIONING NOTES BED BATH PROVIDED. WOUND TREATMENT RENDERED ORDERED, HAYDEE WELL.
--- NOTE | 2019-12-30 18:27 | NUR ---
SKILL TRAINING PROGRAM COORDINATOR CLOSING NOTES PT OBTUNDED, ONLY OPEN EYES, ON MECHANICAL VENTILATOR WITH NO ACUTE RESPIRATORY DISTRESS. NO S/SX OF PAIN AND DISCOMFORT. SKIN WARM TO TOUCH AND DRY. ABD SOFT AND NON DISTENDED, NO BM TODAY. ON ISOLATION DUE TO VRE WOUNDS/CRE URINE. IV SITE AT LEFT HAND #24 H/L PATENT IN FLUSHING.L, LEFT CHEST PERMA CATH DRESSING CLEAN AND DRY. ON NEPHRO @40 ML/HR X 24 HOURS, HAYDEE WELL. G-TUBE REMAINED INTACT, IN PLACE PER AUSCULTATION, RESIDUAL 5 ML SHIFT, HOB KEPT ELEVATED. ON TELE MONITOR SINUS RHYTHM 74. BED IN LOW LOCKED POSITION, [id number] FOR SAFETY. DC PLANNING ALREADY, AWAITING FOR PLACEMENT. ENDORSED PT CARE TO NEXT SHIFT
--- NOTE | 2019-12-30 19:30 | NUR ---
SURVEILLANCE SYSTEM MONITOR OPENING NOTE RECEIVED PATIENT IN BED. PATIENT IS OBTUNDED. ON MECHANICAL VENTILATOR SETTINGS INCLUDE PORTEX #8, AC 14, TV 500 FIO2 40% PEEP 0. NO S/S RESPIRATORY DISTRESS. NO S/S PAIN AT THIS TIME. EXTERNAL TELE MONITOR READS SINUS RHYTHM HR 76. IN NO APPARENT DISTRESS. IV ACCESS IN LEFT HAND #24 PATENT AND SALINE LOCKED, GTUBE IS PRESENT, RESIDUAL 0, FLUSHED WITH NO RESISTANCE, FEEDING RUINING NEPRO$@40ML/HR. BED IS LOW AND LOCKED, HOB ELEVATED IN SEMI FOWLERS, SIDE RIALS UP X2. CALL LIGHT WITHIN REACH. WILL CONTINUE TO MONITOR.
[2019-12-30 20:00] VITALS: BP 121/77
[2019-12-30] MEDS: VIT B CMPLX 3/FA/VIT C/BIOTIN 1 TAB TABLET GT SCH (21:17)
[2019-12-31] VITALS: BP 119/79
[2019-12-31] MEDS: ALBUTEROL SULFATE 8 GM HFA.AER.AD IH SCH ×4 (01:30→20:05)
[2019-12-31] MEDS: IPRATROPIUM BROMIDE 14 GM INHALER (or 12.9 GM) INH SCH ×4 (01:30→20:06)
[2019-12-31 04:00] VITALS: BP 117/69
[2019-12-31] MEDS: BLOOD SUGAR DIAGNOSTIC 1 EACH STRIP IN SCH ×3 (05:27→17:44)
--- NOTE | 2019-12-31 06:06 | NUR ---
DISTILLATION OPERATOR HELPER CLOSING NOTE PATIENT IN BED. OBTUNDED. ON MECHANICAL VENTILATOR SETTINGS INCLUDE PORTEX #8, AC 14, TV 500 FIO2 40% PEEP 0. NO RESPIRATORY DISTRESS. NO S/S PAIN NOTED. EXTERNAL TELE MONITOR READS SINUS RHYTHM. NO DISTRESS. IV ACCESS MAINTAINED IN LEFT HAND #24 PATENT AND SALINE LOCKED, GTUBE IS MAINTAINED, FEEDING RUINING NEPRO@40ML/HR. BED REMAINS LOW AND LOCKED, HOB ELEVATED IN SEMI FOWLERS, SIDE RIALS UP X3. CALL LIGHT WITHIN REACH. WILL ENDORSE TO NEXT SHIFT
[2019-12-31 06:57] LABS: BASOPHILS # (AUTO) 0.1 /CMM (0.0-0.2); BASOPHILS % (AUTO) 0.9 % (0.0-2.0); HEMATOCRIT 29 % (39-51); HEMOGLOBIN 9.2 g/dL (13.5-17.5); LYMPHOCYTES # (AUTO) 1.5 /CMM (0.8-4.8); LYMPHOCYTES % (AUTO) 17.1 % (20.0-44.0); MEAN CORPUSCULAR HGB CONC 31 g/dl (31.0-36.0); MEAN CORPUSCULAR VOLUME 96 fL (80-96); MONOCYTES # (AUTO) 1.3 /CMM (0.1-1.30); MONOCYTES % (AUTO) 14.7 % (2.0-12.0); NEUTROPHILS # (AUTO) 5.6 /CMM (1.8-8.9); NEUTROPHILS % (AUTO) 63.3 % (43.0-81.0); PLATELET COUNT (AUTO) 301 /CMM (150-450); RED BLOOD CELL COUNT(AUTO) 3.04 MIL/uL (4.5-6.0); WHITE BLOOD COUNT (AUTO) 8.8 K/uL (4.3-11.0)
--- NOTE | 2019-12-31 07:10 | NUR ---
BUSINESS CHANGE MANAGER OPENING NOTE RECEIVED PATIENT IN BED AT THIS TIME, OBTUNDED. PT IS ON MECHANICAL VENTILATOR, PORTEX #8, AC 14, TV 500 FIO2 40% PEEP 0. NO S/S OF ANY ACUTE DISTRESS NOTED. NO C/O PAIN AT THIS TIME. EXTERNAL TELE MONITOR READS SR 89. IV ACCESS IN LEFT HAND G#24 AND LEFT SUBCLAVIAN PERMACATH, BOTH INTACT AND PATENT. G-TUBE IS PRESENT, NO RESIDUAL NOTED, FLUSHING WELL WITH NO RESISTANCE, FEEDING RUINING NEPRO@40ML/HR. SAFETY PRECAUTIONS IN PLACE. BED IN LOWEST LOCKED POSITION, HOB ELEVATED, SIDE RAILS UP X2, CALL LIGHT WITHIN REACH. WILL CONTINUE TO MONITOR.
[2019-12-31 07:22] LABS: ALBUMIN 2.1 g/dL (3.4-5.0); BILIRUBIN,TOTAL 0.4 mg/dL (0.2-1.0); CALCIUM, SERUM 9.4 mg/dL (8.5-10.1); MAGNESIUM 3.4 mg/dL (1.8-2.4); PHOSPHORUS 5.1 mg/dL (2.5-4.9); POTASSIUM 4.6 mmol/L (3.5-5.1); TOTAL PROTEIN, SERUM 6.7 g/dL (6.4-8.2)
[2019-12-31 07:41] LABS: CREATININE 7.6 mg/dL (0.6-1.3)
--- NOTE | 2019-12-31 07:58 | NUR ---
FARRUKH, VETERINARY LIVESTOCK INSPECTOR REPORTED CRITICAL LAB VALUES. BUN 95, CREATININE 7.6, REPORT READ BACK. OLESYA QUEZADA MADE AWARE. NO NEW ORDERS AT THIS TIME, WILL CONTINUE TO MONITOR
[2019-12-31 08:00] VITALS: BP 116/64
[2019-12-31] MEDS: ATENOLOL 25 MG TABLET GT SCH (09:29)
[2019-12-31] MEDS: PANTOPRAZOLE 40 MG/PACK PACK GT SCH (09:29)
[2019-12-31] MEDS: methylPREDNISolone (4MG) 4 MG TABLET GT SCH (09:29)
[2019-12-31] MEDS: ASCORBIC ACID 500 MG TABLET GT SCH (09:29)
[2019-12-31] MEDS: DOCUSATE SODIUM LIQ 100 MG/10 ML UDC GT SCH ×2 (09:29→16:54)
[2019-12-31] MEDS: PROSOURCE / PROSTAT (PYXIS) 30 ML UDC GT SCH ×3 (09:30→16:54)
[2019-12-31] MEDS: DAKINS QUARTER STRENGTH (0.125%) 480 ML BOTTLE TOP SCH (09:31)
[2019-12-31] MEDS: SILVER SULFADIAZINE 50 GM JAR TP SCH (09:31)
[2019-12-31] MEDS: Z GUARD REMEDY 2 OZ OINT TP SCH (09:31)
[2019-12-31] MEDS: HYDROGEL DRESSING 90 GM TUBE TP SCH (09:32)
[2019-12-31] MEDS: NEPRO 1,000 ML BOTTLE GT PRN (10:20)
[2019-12-31 12:00] VITALS: BP 102/65
[2019-12-31 16:00] VITALS: BP 102/64
--- NOTE | 2019-12-31 19:10 | NUR ---
RN CLOSING NOTES PATIENT IN BED, EYES OPEN AT THIS TIME. PT REMAINED STABLE THROUGHOUT SHIFT. PT KEPT CLEAN AND DRY. ALL CARE, NEEDS, WOUND CARE/TREATMENT AND MEDICATIONS ADMINISTERED ANTICIPATED PER ORDER. PT REPOSITIONED Q2HRS, PRN AND PER PROTOCOL. PATIENT SUCTION PRN AND TOLERATED. TRACH CARE PROVIDED/TRACH TIE CHANGED. ASPIRATION AND SAFETY PRECAUTIONS IN PLACE. BED IN LOWEST LOCKED POSITION, HOB ELEVATED, SIDE RAILS UP X2, CALL LIGHT WITHIN REACH. WILL ENDORSE TO WIRE TEMPERER NURSE FOR DENNIS
--- NOTE | 2019-12-31 19:29 | NUR ---
CALENDAR CONTROL CLERK BLOOD BANK NOTES PATIENT RECEIVED IN BED, RESTING COMFORTABLY. PATIENT RESPONDS TO LIGHT TOUCH, OBTUNDED. PATIENT ON VENTILATOR, TOLERATING SETTINGS WITH SPO2 AT 100%, NO RESPIRATORY DISTRESS AT TIME. ON BRIDGE WORKER APPRENTICE, 80'S. G-TUBE FEEDING INTACT, NO LEAKAGE OR DRAINAGE, NO RESIDUAL. IV ACCESS INTACT AND PATENT. PATIENT PRESENTS NO PAIN OR DISCOMFORT AT THIS TIME. SAFETY PRECAUTIONS IMPLEMENTED WITH BED LOCKED, BED IN THE LOWEST POSITION, BILATERAL SIDE RAILS UP, BED ALARM ON, HEAD OF THE BED ELEVATED AND CALL LIGHT WITHIN EASY REACH OF PATIENT. WILL CONTINUE TO MONITOR PATIENT.
[2019-12-31 20:00] VITALS: BP 120/77
[2019-12-31] MEDS: VIT B CMPLX 3/FA/VIT C/BIOTIN 1 TAB TABLET GT SCH (21:04)
[2020-01-01] MEDS: BLOOD SUGAR DIAGNOSTIC 1 EACH STRIP IN SCH ×4 (00:16→19:34)
[2020-01-01] MEDS: ALBUTEROL SULFATE 8 GM HFA.AER.AD IH SCH ×4 (01:45→20:39)
[2020-01-01] MEDS: IPRATROPIUM BROMIDE 14 GM INHALER (or 12.9 GM) INH SCH ×4 (01:46→20:39)
--- NOTE | 2020-01-01 06:42 | NUR ---
BARLEY STEEPER CLOSING NOTE PATIENT IN BED, RESTING COMFORTABLY. ON MECHANICAL VENTILATOR, TOLERATING SETTINGS WITH SPO2 100%, NO RESPIRATORY DISTRESS AT THIS TIME. PATIENT PRESENTS NO PAIN OR DISCOMFORT. ON PARI MUTUEL CLERK SINUS RHYTHM, 90'S. NO DISTRESS NOTED. IV ACCESS MAINTAINED IN LEFT HAND #24 PATENT AND SALINE LOCKED, G-TUBE IS MAINTAINED, FEEDING RUINING NEPRO@45ml/HR, NO RESIDUAL. ALL NEEDS OF PATIENT'S MET. SAFETY PRECAUTIONS IMPLEMENTED WITH BED LOCKED,BED IN THE LOWEST POSITION, BED ALARM ON, BILATERAL SIDE RAILS UP, AND CALL LIGHT WITHIN EASY REACH OF THE PATIENT. WILL ENDORSE PLAN OF CARE TO UPCOMING DAYSHIFT NURSE.
[2020-01-01] MEDS: NEPRO 1,000 ML BOTTLE GT PRN ×2 (07:21→14:15)
--- NOTE | 2020-01-01 07:30 | NUR ---
RN OPENING NOTES PATIENT IN BED RESTING COMFORTABLY.PATIENT ON MECHANICAL VENT AND TOLERATING VENT SETTINGS WELL. PATIENT IS NONVERBAL, AND OBTUNDED. NO S/S OF PAIN OR DISCOMFORT AT THIS TIME. PATIENT IN NO ACUTE DISTRESS. NO SOB NOTED. PATIENT BREATHING IS EVEN AND UNLABORED. PATIENT ON CARDIAC MONITORING READING SINUS RHYTHM HR 90. PATIENT GTUBE PATENT AND INTACT. PATIENT BED ALARM IS ON. PATIENT SAFETY PRECAUTIONS IN PLACE. PATIENT BED IS LOCKED AND IN LOWEST POSITION. CALL LIGHT WITHIN REACH. WILL CONTINUE TO MONITOR ACCORDINGLY.
[2020-01-01 08:00] VITALS: BP 120/66
[2020-01-01] MEDS: ASCORBIC ACID 500 MG TABLET GT SCH (08:57)
[2020-01-01] MEDS: PANTOPRAZOLE 40 MG/PACK PACK GT SCH (08:59)
[2020-01-01] MEDS: DOCUSATE SODIUM LIQ 100 MG/10 ML UDC GT SCH ×2 (08:59→16:27)
[2020-01-01] MEDS: ATENOLOL 25 MG TABLET GT SCH (08:59)
[2020-01-01] MEDS: PROSOURCE / PROSTAT (PYXIS) 30 ML UDC GT SCH ×3 (09:02→16:27)
[2020-01-01] MEDS: methylPREDNISolone (4MG) 4 MG TABLET GT SCH (09:04)
[2020-01-01] MEDS: HYDROGEL DRESSING 90 GM TUBE TP SCH (09:05)
[2020-01-01] MEDS: DAKINS QUARTER STRENGTH (0.125%) 480 ML BOTTLE TOP SCH (09:05)
[2020-01-01] MEDS: SILVER SULFADIAZINE 50 GM JAR TP SCH (09:06)
[2020-01-01] MEDS: Z GUARD REMEDY 2 OZ OINT TP SCH (09:06)
[2020-01-01 16:00] VITALS: BP 111/70
--- NOTE | 2020-01-01 16:39 | NUR ---
RT NOTE Pt received trach'd on mechanical ventilation. Alarms are set and audible w bvm @ hob. Pt sx'd and MDI txs given w no adverse reactions. Pt is stable. No respiratory distress noted t/o shift. Addendum: 01/01/20 at 1716 by DORITA CROSS RT Amended: Links added.
--- NOTE | 2020-01-01 19:30 | NUR ---
RN CLOSING NOTES PATIENT IN STABLE CONDITION. ALL NEEDS ATTENDED AND PROVIDED. ALL DUE MEDS GIVEN ORDERED. TURNED AND REPOSITIONED PATIENT EVERY 2HRS AND NEEDED. WOUND CARE RENDERED. KEPT PATIENT SAFE AND COMFORTABLE. BED IN LOW/LOCKED POSITION. SIDERAILS UP, CALL LIGHT IN REACH. ENDORSED TO NIGHT RN ACCORDINGLY.
--- NOTE | 2020-01-01 20:00 | NUR ---
LATHING SUPERVISOR NOTES PATIENT RECEIVED FROM NIGHTSHIFT NURSES, ESME. PATIENT IN BED RESTING COMFORTABLY. ON INSURANCE CLAIMS SPECIALIST SINUS RHYTHM, 79. TOLERATING MECHANICAL VENTILATOR SETTINGS WITH SPO2 99%, PATIENT PRESENTS NO RESPIRATORY DISTRESS AT THIS TIME, NON-LABORED BREATHING, AND NO SOB NOTED. IV ACCESS INTACT AND PATENT. TOLERATING G-TUBE FEEDING INFUSING NEPRO AT 45ml/hr, NO RESIDUAL NOTED. SKIN WARM AND DRY TO TOUCH. PATIENT PRESENTS NO SIGNS OF PAIN OR DISCOMFORT. SAFETY PRECAUTIONS IMPLEMENTED WITH BED LOCKED, BED ALARM ON, HOB IN SEMI FOWLERS POSITION, BILATERAL SIDE RAILS UP, AND CALL LIGHT WITHIN EASY REACH OF THE PATIENT. WILL CONTINUE TO MONITOR PATIENT.
[2020-01-01] MEDS: VIT B CMPLX 3/FA/VIT C/BIOTIN 1 TAB TABLET GT SCH (21:13)
[2020-01-02] VITALS: BP 121/77
[2020-01-02] MEDS: BLOOD SUGAR DIAGNOSTIC 1 EACH STRIP IN SCH ×4 (00:28→17:18)
[2020-01-02] MEDS: ALBUTEROL SULFATE 8 GM HFA.AER.AD IH SCH ×4 (02:10→20:06)
[2020-01-02] MEDS: IPRATROPIUM BROMIDE 14 GM INHALER (or 12.9 GM) INH SCH ×4 (02:10→20:06)
--- NOTE | 2020-01-02 06:32 | NUR ---
MS RN NOTES PATIENT IN BED RESTING COMFORTABLY, PRESENTS NO SIGNS OF PAIN OR DISCOMFORT. TOLERATING MECHANICAL VENTILATOR SETTINGS WITH SPO2 100%, NO RESPIRATORY DISTRESS AT THIS TIME AND WITH EVEN NON-LABORED BREATHING. PATIENT SKIN KEPT CLEAN AND DRY. WOUND CARE TREATMENTS DONE ORDERED. IV ACCESS INTACT AND PATENT. G-TUBE FEEDING IN PLACE, INTACT, AND NO LEAKAGE, INFUSING 45ml/hr OF NEPRO. SAFETY PRECAUTIONS IMPLEMENTED WITH BED LOCKED, BED IN THE LOWEST POSITION, BILATERAL SIDE RAILS UP, HEAD OF THE BED ELEVATED, AND CALL LIGHT WITHIN EASY REACH OF PATIENT. WILL ENDORSE PLAN OF CARE TO UPCOMING DAYSHIFT NURSE. Addendum: 01/02/20 at 0636 by DARLENE BAUER RN PASTEURIZING MACHINE OPERATOR NOTES PATIENT ON BUSINESS PROPOSAL REP, SINUS RHYTHM, 78.
--- NOTE | 2020-01-02 07:30 | NUR ---
RN OPENING NOTES PATIENT IN BED RESTING COMFORTABLY.PATIENT ON MECHANICAL VENT AND TOLERATING VENT SETTINGS WELL. PATIENT IS NONVERBAL, AND OBTUNDED. NO S/S OF PAIN OR DISCOMFORT AT THIS TIME. PATIENT IN NO ACUTE DISTRESS. NO SOB NOTED. PATIENT BREATHING IS EVEN AND UNLABORED. PATIENT ON CARDIAC MONITORING READING SINUS RHYTHM HR 79. PATIENT GTUBE IN PLACE RUNNING GTF, TOLERATING WELL. PATIENT BED ALARM IS ON. PATIENT SAFETY PRECAUTIONS IN PLACE. PATIENT BED IS LOCKED AND IN LOWEST POSITION. SEMIFOWLERS POSITION. CALL LIGHT WITHIN REACH. WILL CONTINUE TO MONITOR ACCORDINGLY.
[2020-01-02 08:00] VITALS: BP 114/72
[2020-01-02 08:10] LABS: CALCIUM, SERUM 9.3 mg/dL (8.5-10.1); CREATININE 7.3 mg/dL (0.6-1.3); POTASSIUM 4.7 mmol/L (3.5-5.1)
[2020-01-02 08:25] LABS: BASOPHILS # (AUTO) 0.1 /CMM (0.0-0.2); BASOPHILS % (AUTO) 0.6 % (0.0-2.0); EOSINOPHILS % (AUTO) 3.8 % (0.0-6.0); HEMATOCRIT 29 % (39-51); LYMPHOCYTES # (AUTO) 1.5 /CMM (0.8-4.8); LYMPHOCYTES % (AUTO) 15.8 % (20.0-44.0); MEAN CORPUSCULAR HGB CONC 31 g/dl (31.0-36.0); MEAN CORPUSCULAR VOLUME 98 fL (80-96); MONOCYTES # (AUTO) 1.2 /CMM (0.1-1.30); MONOCYTES % (AUTO) 12.5 % (2.0-12.0); NEUTROPHILS # (AUTO) 6.2 /CMM (1.8-8.9); NEUTROPHILS % (AUTO) 67.3 % (43.0-81.0); PLATELET COUNT (AUTO) 266 /CMM (150-450); RED BLOOD CELL COUNT(AUTO) 2.97 MIL/uL (4.5-6.0); WHITE BLOOD COUNT (AUTO) 9.2 K/uL (4.3-11.0)
[2020-01-02] MEDS: PANTOPRAZOLE 40 MG/PACK PACK GT SCH (08:55)
[2020-01-02] MEDS: ASCORBIC ACID 500 MG TABLET GT SCH (08:55)
[2020-01-02] MEDS: ATENOLOL 25 MG TABLET GT SCH (08:56)
[2020-01-02] MEDS: PROSOURCE / PROSTAT (PYXIS) 30 ML UDC GT SCH ×3 (08:58→17:18)
[2020-01-02] MEDS: methylPREDNISolone (4MG) 4 MG TABLET GT SCH (09:01)
[2020-01-02] MEDS: DOCUSATE SODIUM LIQ 100 MG/10 ML UDC GT SCH ×2 (09:02→17:18)
[2020-01-02] MEDS: DAKINS QUARTER STRENGTH (0.125%) 480 ML BOTTLE TOP SCH (09:11)
[2020-01-02] MEDS: HYDROGEL DRESSING 90 GM TUBE TP SCH (09:12)
[2020-01-02] MEDS: SILVER SULFADIAZINE 50 GM JAR TP SCH (09:12)
[2020-01-02] MEDS: Z GUARD REMEDY 2 OZ OINT TP SCH (09:12)
[2020-01-02 12:00] VITALS: BP 113/72
[2020-01-02] MEDS ORDERED: EPOETIN ALFA (10,000 UNIT) 10,000 UNIT/ML VIAL IV SCH (15:00)
[2020-01-02 16:00] VITALS: BP 113/70
--- NOTE | 2020-01-02 19:40 | NUR ---
tele horticultural agent initial notes received report from am nurse and seen pt in bed awake non-verbal, on mechanical vent portex #8, AC 14, TV 500 ,FI02 40 % and PEEP 0. PT on Tele SR . heart rate 70 on tele monitor. No signs of any acute distress noted. pt also on g-tube feeding at 45 ml./hr. no residual noted at this time. kept pt HOB elevated at all times side rails x2 up and bed in low and lock in position . Kept pt warm and comfortable at al times. will continue monitoring.
[2020-01-02 20:00] VITALS: BP 114/67
[2020-01-02] MEDS: VIT B CMPLX 3/FA/VIT C/BIOTIN 1 TAB TABLET GT SCH (22:33)
--- NOTE | 2020-01-02 22:56 | NUR ---
wireless manager notes routine meds given nathalie GT , no aspiration noted.reposition pt for comfort. will continue monitoring.
[2020-01-03] VITALS (7 sets, daily range): BP systolic 105–121; BP diastolic 67–82
[2020-01-03] MEDS: BLOOD SUGAR DIAGNOSTIC 1 EACH STRIP IN SCH ×4 (00:46→17:11)
[2020-01-03] MEDS: INSULIN REGULAR, HUMAN 100 UNIT/ML 3 ML VIAL SQ PRN ×2 (00:47→05:44)
--- NOTE | 2020-01-03 00:47 | NUR ---
telel domestic housekeeper notes blood sugar checked done, 84, ni insulin due at this time. no signs of hypo glycemia noted. will continue monitoring.
[2020-01-03] MEDS: ALBUTEROL SULFATE 8 GM HFA.AER.AD IH SCH ×4 (01:17→19:18)
[2020-01-03] MEDS: IPRATROPIUM BROMIDE 14 GM INHALER (or 12.9 GM) INH SCH ×4 (01:18→19:18)
[2020-01-03] MEDS: HYDROGEL DRESSING 90 GM TUBE TP SCH ×2 (05:00→09:07)
[2020-01-03] MEDS: Z GUARD REMEDY 2 OZ OINT TP SCH ×2 (05:00→09:08)
[2020-01-03] MEDS: SILVER SULFADIAZINE 50 GM JAR TP SCH ×2 (05:00→09:08)
[2020-01-03] MEDS: DAKINS QUARTER STRENGTH (0.125%) 480 ML BOTTLE TOP SCH ×2 (05:00→09:07)
[2020-01-03] MEDS: NEPRO 1,000 ML BOTTLE GT PRN (06:18)
[2020-01-03 06:28] LABS: BASOPHILS # (AUTO) 0.1 /CMM (0.0-0.2); BASOPHILS % (AUTO) 0.7 % (0.0-2.0); EOSINOPHILS % (AUTO) 2.9 % (0.0-6.0); HEMATOCRIT 30 % (39-51); HEMOGLOBIN 9.2 g/dL (13.5-17.5); LYMPHOCYTES # (AUTO) 1.6 /CMM (0.8-4.8); LYMPHOCYTES % (AUTO) 14.6 % (20.0-44.0); MEAN CORPUSCULAR HGB CONC 31 g/dl (31.0-36.0); MEAN CORPUSCULAR VOLUME 97 fL (80-96); MONOCYTES # (AUTO) 1.5 /CMM (0.1-1.30); MONOCYTES % (AUTO) 13.3 % (2.0-12.0); NEUTROPHILS # (AUTO) 7.7 /CMM (1.8-8.9); NEUTROPHILS % (AUTO) 68.5 % (43.0-81.0); PLATELET COUNT (AUTO) 250 /CMM (150-450); RED BLOOD CELL COUNT(AUTO) 3.03 MIL/uL (4.5-6.0); WHITE BLOOD COUNT (AUTO) 11.3 K/uL (4.3-11.0)
--- NOTE | 2020-01-03 06:41 | NUR ---
tele home performance consultant closing notes pt resting at this time after morning care done as well wound care treatment on his sacrum area. stable throughout the night . G-tube feeding tolerated well no aspiration noted. Sinus Rhythm on tele monitor. all due meds given a. blood sugar checked done 78, apple juice given nathalie g-tube. no signs of hypo glycemia noted. kept him warm and comfortable at all times. will continue monitoring. will endorse to incoming nurse for continuity of care.
[2020-01-03 06:56] LABS: OCCULT BLOOD STOOL NEGATIVE (NEGATIVE)
[2020-01-03 07:16] LABS: IRON, SERUM 80 ug/dl (50-175); TOTAL IRON BINDING CAPACITY 141 ug/dl (250-450)
[2020-01-03 07:42] LABS: FERRITIN 2187 ng/mL (8-388)
[2020-01-03] MEDS: methylPREDNISolone (4MG) 4 MG TABLET GT SCH (09:05)
[2020-01-03] MEDS: PROSOURCE / PROSTAT (PYXIS) 30 ML UDC GT SCH ×3 (09:05→17:11)
[2020-01-03] MEDS: DOCUSATE SODIUM LIQ 100 MG/10 ML UDC GT SCH ×2 (09:05→17:11)
[2020-01-03] MEDS: ATENOLOL 25 MG TABLET GT SCH (09:05)
[2020-01-03] MEDS: PANTOPRAZOLE 40 MG/PACK PACK GT SCH (09:05)
[2020-01-03] MEDS: ASCORBIC ACID 500 MG TABLET GT SCH (09:05)
--- NOTE | 2020-01-03 18:08 | NUR ---
LITIGATION SERVICES MANAGER END OF SHIFT SUMMARY PT IS OBTUNDED, SPONTANEOUS EYE OPENING. CARDIAC MONITORED, NSR. [facility], TOLERATING VENT SETTINGS. NOT IN ANY ACUTE DISTRESS NOTED. ON GTF NEPRO @45CC/HR, TOLERATING WELL W/ NO RESIDUALS. BOWEL SOUNDS ARE PRESENT IN ALL 4 QUADRANTS UPON AUSCULTATION. NO BM DURING SHIFT. PT IS ANURIC. ON HD W/ LEFT SUBCLAVIAN ACCESS. DRESSING CHANGES DONE ORDERED TO SACRAL, BUTTOCKS AND BOTH FEET. PIV TO LEFT HAND INTACT, FLUSHED. DRESSING CDI. REPOSITIONED Q2HRS. SAFETY MEASURES ARE IN PLACE. WILL MONITOR AND CONTINUE POC.
--- NOTE | 2020-01-03 19:40 | NUR ---
RT NOTE Pt received trach'd on mechanical ventilation. Alarms are set and audible w ambubag @ hob. Pt sx'd and MDI txs given w no adverse reactions. Pt is stable. No respiratory distress noted t/o shift. Addendum: 01/03/20 at 1940 by JOSE GONZALEZ RT Amended: Links added.
--- NOTE | 2020-01-03 19:55 | NUR ---
RN OPENING NOTES RECEIVED REPORT FROM DIETER LEWIS RN. FOUND Pt IN BED. Pt IS OBTUNDED, ON [facility] VENT. VENT SETTING AT: TV 500, FIO2 40%, PEEP 0, AC 14. PORTEX #8. ON TELE MONITOR, WITH READING OF SR. GTF WITH NEPRO @45ML/HR, CONTINUOUS. IV ACCESS ON LHAND #24G, SL & L SUBCLAVIAN HD CATH. PER REPORT LAST HD WAS ON 01/01 WITH 1L OUT. SAFETY MEASURES IN PLACE. BED LOW, LOCKED, HOB ELEVATED, SIDE RAILS UP, AND BED ALARM ON FOR SAFETY. WILL CONTINUE TO MONITOR Pt's CONDITION AND SAFETY THROUGHOUT THE NIGHT. Addendum: 01/03/20 at 2023 by NICK SMITH RN PER REPORT Pt IS PENDING DC TO [facility] W/HD.
[2020-01-03] MEDS: VIT B CMPLX 3/FA/VIT C/BIOTIN 1 TAB TABLET GT SCH (21:55)
[2020-01-04] MEDS: BLOOD SUGAR DIAGNOSTIC 1 EACH STRIP IN SCH ×5 (00:49→23:55)
--- NOTE | 2020-01-04 00:52 | NUR ---
RN NOTES ACCUCHECK BG 96. NO INSULIN COVERAGE NEEDED AT THIS TIME. ON CONTINUOUS GTF.
[2020-01-04] MEDS: ALBUTEROL SULFATE 8 GM HFA.AER.AD IH SCH ×4 (01:08→20:04)
[2020-01-04] MEDS: IPRATROPIUM BROMIDE 14 GM INHALER (or 12.9 GM) INH SCH ×4 (01:08→20:04)
[2020-01-04 05:04] VITALS: BP 116/75
--- NOTE | 2020-01-04 05:51 | NUR ---
RN NOTES bg accucheck: 85. no insulin coverage needed at this time. on continuous gtf.
--- NOTE | 2020-01-04 06:39 | NUR ---
RN CLOSING NOTES NO SIGNIFICANT CHANGES IN Pt's CONDITION DURING THE NIGHT. ALL NEEDS MET AND ATTENDED TO. Pt IS RESTING IN BED. NO S/S OF ACUTE DISTRESS OR SOB NOTED. SAFETY MEASURES IN PLACE. TELE READING SR 90s. ON [facility] VENT O2 @98-100%/ WILL ENDORSE TO DAYSHIFT RN FOR Pt's DENNIS.
--- NOTE | 2020-01-04 07:15 | NUR ---
RN NOTES PATIENT IN BED AWAKE. NO ACUTE DISTRESS NOTED. BREATHING UNLABORED. NO SOB NOTED. ON MECHANICAL VENTILATOR SET ON ORDERED SETTING. GTUBE FEEDING INTACT WITH NEPHRO RUNNING AT 45 MLS/HR .IV ACCESS PATENT AND INTACT. NO REDNESS, NO SWELLING NOTED. HEAD OF BED ELEVATED. SAFETY MEASURES IN PLACE. CALL LIGHT WITHIN REACH. DIALYSIS ON GOING AT THIS TIME. WILL CONTINUE TO MONITOR ACCORDINGLY.
[2020-01-04] MEDS: ATENOLOL 25 MG TABLET GT SCH (09:00)
--- NOTE | 2020-01-04 09:08 | NUR ---
TELEPHONE REPAIRER NOTES DIALYSIS DONE BY DIALYSIS NURSE MEGAN, 1 LITER OUT, VITAL SIGNS STABLE , NO ACUTE DISTRESS NOTED . WILL CONTINUE TO MONITOR PATIENT.
[2020-01-04 09:19] VITALS: BP 116/75
[2020-01-04] MEDS: PANTOPRAZOLE 40 MG/PACK PACK GT SCH (09:24)
[2020-01-04] MEDS: ASCORBIC ACID 500 MG TABLET GT SCH (09:24)
[2020-01-04] MEDS: methylPREDNISolone (4MG) 4 MG TABLET GT SCH (09:24)
[2020-01-04] MEDS: DOCUSATE SODIUM LIQ 100 MG/10 ML UDC GT SCH ×2 (09:24→17:39)
[2020-01-04] MEDS: PROSOURCE / PROSTAT (PYXIS) 30 ML UDC GT SCH ×3 (09:25→17:39)
[2020-01-04] MEDS: DAKINS QUARTER STRENGTH (0.125%) 480 ML BOTTLE TOP SCH (09:25)
[2020-01-04] MEDS: SILVER SULFADIAZINE 50 GM JAR TP SCH (09:26)
[2020-01-04] MEDS: HYDROGEL DRESSING 90 GM TUBE TP SCH (09:26)
[2020-01-04] MEDS: Z GUARD REMEDY 2 OZ OINT TP SCH (09:27)
[2020-01-04] MEDS: NEPRO 1,000 ML BOTTLE GT PRN (10:08)
[2020-01-04 17:43] VITALS: BP 112/72
--- NOTE | 2020-01-04 18:46 | NUR ---
RN CLOSING NOTES PATIENT IN BED AWAKE. NO ACUTE DISTRESS NOTED. BREATHING UNLABORED. NO SOB NOTED. ON MECHANICAL VENTILATOR SET ON ORDERED SETTING. GTUBE FEEDING INTACT WITH NEPHRO RUNNING AT 45 MLS/HR .IV ACCESS PATENT AND INTACT. NO REDNESS, NO SWELLING NOTED. HEAD OF BED ELEVATED. NEEDS ATTENDED AND ANTICIPATED. KEPT CLEAN DRY AND COMFORTABLE.SAFETY MEASURES IN PLACE. TURN AND REPOSITION EVERY 2 HOURS AND NEEDED. CALL LIGHT WITHIN REACH. WILL ENDORSE TO NIGHT NURSE FOR CONTINUITY OF CARE.
[2020-01-04 20:00] VITALS: BP 113/68
--- NOTE | 2020-01-04 20:00 | NUR ---
CLASS 1 OWNER OPERATOR OPENING NOTE: Received patient in bed, awake and obtunded. On Mechanical Ventilation with Portex #8; settings TV 500, FiO2 40%, Peep 0, and AC 14. Patient tolerating settings well. O2 Sat 100%. On tele monitoring; reading sinus rhythmn. GT is patent, feeding Nepro at 45ML/hr. Noted right subclavian HD cath. IV access on left hand #24 gauge. IV access flushes well; patent, no redness, no infiltration. Safety precaution in place, bed in lowest positin, brakes are on, alarm is on, side rails x 2 are up, and call light is within reach. Will continue plan of care.
[2020-01-04] MEDS: VIT B CMPLX 3/FA/VIT C/BIOTIN 1 TAB TABLET GT SCH (21:19)
[2020-01-04] MEDS: INSULIN REGULAR, HUMAN 100 UNIT/ML 3 ML VIAL SQ PRN (23:58)
[2020-01-05] VITALS: BP 110/64
[2020-01-05] MEDS: ALBUTEROL SULFATE 8 GM HFA.AER.AD IH SCH ×4 (01:57→19:40)
[2020-01-05] MEDS: IPRATROPIUM BROMIDE 14 GM INHALER (or 12.9 GM) INH SCH ×4 (01:57→19:39)
[2020-01-05 04:00] VITALS: BP 114/71
[2020-01-05] MEDS: BLOOD SUGAR DIAGNOSTIC 1 EACH STRIP IN SCH ×3 (05:14→17:48)
[2020-01-05] MEDS: INSULIN REGULAR, HUMAN 100 UNIT/ML 3 ML VIAL SQ PRN ×2 (05:15→23:58)
--- NOTE | 2020-01-05 06:39 | NUR ---
SADDLE AND HARNESS MAKER CLOSING NOTE: Patient in bed sleeping comfortably. Shows no signs of pain or discomfort. Breathing equal and unlabored. No SOB or distress. Tele monitoring; sinus rhythm. Safety precaution in place, bed in lowest positing, brakes are on, alarm is on, side rails x 2 are up, and call light is within reach. Will endorse to next shift.
--- NOTE | 2020-01-05 07:50 | NUR ---
TELE/MS RN OPENING NOTE: Patient in bed sleeping comfortably. Shows no signs of pain or discomfort. Breathing equal and unlabored on vent support tolerated settings well. No SOB or distress . Tele monitoring; sinus rhythm. GT feeding in place with Nephro at 45 ml /hr tolerated well. Safety precaution in place, bed in lowest positing, brakes are on, alarm is on, side rails x 2 are up, and call light is within reach. Will continue to monitor.
[2020-01-05 08:00] VITALS: BP 112/72
[2020-01-05] MEDS: DOCUSATE SODIUM LIQ 100 MG/10 ML UDC GT SCH ×2 (09:11→16:35)
[2020-01-05] MEDS: methylPREDNISolone (4MG) 4 MG TABLET GT SCH (09:11)
[2020-01-05] MEDS: PANTOPRAZOLE 40 MG/PACK PACK GT SCH (09:11)
[2020-01-05] MEDS: ASCORBIC ACID 500 MG TABLET GT SCH (09:11)
[2020-01-05] MEDS: SILVER SULFADIAZINE 50 GM JAR TP SCH (09:12)
[2020-01-05] MEDS: ATENOLOL 25 MG TABLET GT SCH (09:12)
[2020-01-05] MEDS: DAKINS QUARTER STRENGTH (0.125%) 480 ML BOTTLE TOP SCH (09:16)
[2020-01-05] MEDS: PROSOURCE / PROSTAT (PYXIS) 30 ML UDC GT SCH ×3 (09:19→16:35)
[2020-01-05] MEDS: HYDROGEL DRESSING 90 GM TUBE TP SCH (09:21)
[2020-01-05] MEDS: Z GUARD REMEDY 2 OZ OINT TP SCH (09:22)
[2020-01-05] MEDS: NEPRO 1,000 ML BOTTLE GT PRN (11:52)
[2020-01-05 16:00] VITALS: BP 130/84
--- NOTE | 2020-01-05 17:54 | NUR ---
MS/STRAIGHT KNIFE CUTTER MACHINE CLOSING NOTES PATIENT IN BED AWAKE. NO ACUTE DISTRESS NOTED. BREATHING UNLABORED. NO SOB NOTED. ON MECHANICAL VENTILATOR SET ON AC TV500 14 PEEP 0 FIO2 30% ORDERED . GTUBE FEEDING INTACT WITH NEPHRO RUNNING AT 45 MLS/HR .IV ACCESS PATENT AND INTACT. NO REDNESS, NO SWELLING NOTED. HEAD OF BED ELEVATED. NEEDS ATTENDED AND ANTICIPATED WOUND TX DONE ORDER. KEPT CLEAN DRY AND COMFORTABLE.SAFETY MEASURES IN PLACE. TURN AND REPOSITION EVERY 2 HOURS AND NEEDED. CALL LIGHT WITHIN REACH. WILL ENDORSE TO NIGHT NURSE FOR CONTINUITY OF CARE.
--- NOTE | 2020-01-05 19:05 | NUR ---
RN OPENING NOTES Received patient, nonverbal, on vent, with current settings tolerated well, saturating 98-100%. No s/sx of discomfort/distress noted. With GFT Nephro @ 45ml/hr as ordered, tolerating well, no abdominal distention noted. Kept on bed clean, dry and comfortable. On fall and aspiration precautions. Will continue to monitor accordingly.
[2020-01-05 20:00] VITALS: BP 122/87
[2020-01-05] MEDS: VIT B CMPLX 3/FA/VIT C/BIOTIN 1 TAB TABLET GT SCH (21:50)
[2020-01-06] VITALS: BP 122/79
[2020-01-06] MEDS: BLOOD SUGAR DIAGNOSTIC 1 EACH STRIP IN SCH ×5 (00:02→23:43)
--- NOTE | 2020-01-06 01:04 | NUR ---
RN NOTES Pt endorsed to LON Chavarria for DENNIS.
--- NOTE | 2020-01-06 01:05 | NUR ---
COLLISION REPAIRER NOTES RECEIVED PT FOR DENNIS.
[2020-01-06] MEDS: IPRATROPIUM BROMIDE 14 GM INHALER (or 12.9 GM) INH SCH ×4 (01:57→19:50)
[2020-01-06] MEDS: ALBUTEROL SULFATE 8 GM HFA.AER.AD IH SCH ×4 (01:57→19:49)
[2020-01-06 03:55] VITALS: BP 128/81
--- NOTE | 2020-01-06 06:58 | NUR ---
CUTTING AND SPLICING SUPERVISOR NOTES patient in bed nonverbal, on vent, with current settings tolerated well, saturating 98-100%. No s/sx of discomfort/distress noted throughout shift. With GFT Nephro @ 45ml/hr as ordered, tolerating well, no abdominal distention noted. Pt kept clean, dry, and comfortable. safety measurers in place with bed in lowest locked position with side rails up x2. call light within reach. will endorse to oncoming nurse for steve.
[2020-01-06 08:00] VITALS: BP 120/77
--- NOTE | 2020-01-06 08:15 | NUR ---
RIMMA RN OPENING NOTES PATIENT IS RESTING IN BED. BREATHING UNLABORED. NO SOB NOTED. ON MECHANICAL VENTILATOR SET ON AC TV500 14 PEEP 0 FIO2 30% ORDERED . GTUBE FEEDING INTACT WITH NEPHRO RUNNING AT 45 MLS/HR .IV ACCESS PATENT AND INTACT. NO REDNESS, NO SWELLING NOTED. HEAD OF BED ELEVATED.SAFETY MEASURES IN PLACE. CALL LIGHT WITHIN REACH. WILL CONTINUE TO MONITOR
[2020-01-06] MEDS: ATENOLOL 25 MG TABLET GT SCH (09:38)
[2020-01-06] MEDS: PANTOPRAZOLE 40 MG/PACK PACK GT SCH (09:39)
[2020-01-06] MEDS: DOCUSATE SODIUM LIQ 100 MG/10 ML UDC GT SCH ×2 (09:39→16:10)
[2020-01-06] MEDS: ASCORBIC ACID 500 MG TABLET GT SCH (09:39)
[2020-01-06] MEDS: HYDROGEL DRESSING 90 GM TUBE TP SCH (09:40)
[2020-01-06] MEDS: DAKINS QUARTER STRENGTH (0.125%) 480 ML BOTTLE TOP SCH (09:40)
[2020-01-06] MEDS: SILVER SULFADIAZINE 50 GM JAR TP SCH (09:41)
[2020-01-06] MEDS: Z GUARD REMEDY 2 OZ OINT TP SCH (09:41)
[2020-01-06] MEDS: PROSOURCE / PROSTAT (PYXIS) 30 ML UDC GT SCH ×3 (09:54→16:11)
[2020-01-06] MEDS ORDERED: methylPREDNISolone SOD SUCC 40 MG/ML VIAL ONE (10:31)
[2020-01-06] MEDS: methylPREDNISolone (4MG) 4 MG TABLET GT SCH (10:36)
[2020-01-06] MEDS: NEPRO 1,000 ML BOTTLE GT PRN (11:12)
[2020-01-06 12:00] VITALS: BP 115/77
--- NOTE | 2020-01-06 13:34 | NUR ---
RIMMA RN NOTES DIALYSIS NURSE DEE DEE ON THE BED SITE.
--- NOTE | 2020-01-06 16:03 | NUR ---
RIMMA RN NOTES DIALYSIS IS DONE BY DEE DEE 1000 ML IS OUT. PT TOLERATED WELL. BP IS STABLE
--- NOTE | 2020-01-06 18:29 | NUR ---
RIMMA RN CLOSING NOTES PATIENT IS RESTING IN BED. BREATHING UNLABORED. NO SOB NOTED. ON MECHANICAL VENTILATOR SET ON AC TV500 14 PEEP 0 FIO2 30% ORDERED . GTUBE FEEDING INTACT WITH NEPHRO RUNNING AT 45 MLS/HR .IV ACCESS PATENT AND INTACT. NO REDNESS, NO SWELLING NOTED. HEAD OF BED ELEVATED.SAFETY MEASURES IN PLACE. CALL LIGHT WITHIN REACH. WOUND TREATMENT IS IMPLEMENTED. ALL MEDS ARE GIVEN. PT IS DRY AND CLEAN. WILL ENDORSE TO NIGHTSHIFT NURSE FOR DENNIS.
--- NOTE | 2020-01-06 19:43 | NUR ---
CODING QUALITY ANALYST OPENING NOTES PATIENT RECEIVED RESTING IN BED COMFORTABLY; AWAKE, NON-VERBAL; OPENS EYES; PATIENT TOLERATING CURRENT VENT SETTINGS AT THIS TIME; BREATHING EVEN AND UNLABORED; NO SOB NOTED; TELE MONITOR ATTACHED, READS NSR 83BPM; LFA # 22 INTACT AND PATENT; FLUSHING WELL, NO S/S OF REDNESS OR INFILTRATION NOTED; PATIENT HAS GTUBE IN PLACE, TUBE FEEDING INFUSING NEPHRO @ 45ML/HR, PATIENT TOLERATING FEEDING WELL WITH LOW RESIDUALS; L SUBCLAVIAN HD CATH NOTED FOR HEMODIALYSIS USE; SAFETY PRECAUTIONS IMPLEMENTED; BED LOCKED IN LOW POSITION; SIDE RAILS X2; WILL CONT TO MONITOR
[2020-01-06 20:00] VITALS: BP 139/83
[2020-01-06] MEDS: VIT B CMPLX 3/FA/VIT C/BIOTIN 1 TAB TABLET GT SCH (22:00)
[2020-01-07] VITALS (7 sets, daily range): BP systolic 109–135; BP diastolic 71–78
[2020-01-07] MEDS: ALBUTEROL SULFATE 8 GM HFA.AER.AD IH SCH ×4 (03:17→19:57)
[2020-01-07] MEDS: IPRATROPIUM BROMIDE 14 GM INHALER (or 12.9 GM) INH SCH ×4 (03:18→19:56)
[2020-01-07] MEDS: BLOOD SUGAR DIAGNOSTIC 1 EACH STRIP IN SCH ×3 (06:18→18:43)
[2020-01-07 07:22] LABS: BASOPHILS # (AUTO) 0.1 /CMM (0.0-0.2); BASOPHILS % (AUTO) 0.5 % (0.0-2.0); EOSINOPHILS % (AUTO) 1.1 % (0.0-6.0); HEMATOCRIT 30 % (39-51); LYMPHOCYTES # (AUTO) 1.4 /CMM (0.8-4.8); LYMPHOCYTES % (AUTO) 14.4 % (20.0-44.0); MEAN CORPUSCULAR HGB CONC 30 g/dl (31.0-36.0); MEAN CORPUSCULAR VOLUME 103 fL (80-96); MONOCYTES # (AUTO) 1.2 /CMM (0.1-1.30); MONOCYTES % (AUTO) 11.9 % (2.0-12.0); NEUTROPHILS # (AUTO) 7.2 /CMM (1.8-8.9); NEUTROPHILS % (AUTO) 72.1 % (43.0-81.0); PLATELET COUNT (AUTO) 215 /CMM (150-450); RED BLOOD CELL COUNT(AUTO) 2.92 MIL/uL (4.5-6.0); WHITE BLOOD COUNT (AUTO) 10.1 K/uL (4.3-11.0)
--- NOTE | 2020-01-07 07:39 | NUR ---
PLASTERER SPRAY GUN CLOSING NOTES PATIENT RESTING IN BED COMFORTABLY; BREATHING EVEN AND UNLABORED; NO CHANGES IN VENT SETTINGS AT THIS TIME; PATIENT TOLERATING VENT SETTINGS WELL; TELE MONITOR READS NSR; ALL NEEDS RENDERED; BED LOCKED IN LOW POSITION; SIDE RAILS X2; WILL ENDORSE DENNIS TO ONCOMING SHIFT
--- NOTE | 2020-01-07 07:44 | NUR ---
MS/RN Opening note Patient received from casino cage manager. Non verbal, obtunded, trach to vent. Vent settings: -AC 14 -TV 500 -FIO2 30% Stable on current vent settings, saturation 100%. Vital signs recorded, no fevers noted. GT feeding @45ml/hr, no residual noted. Heplock to left hand flushing well, no signs of infiltration. HDX catheter to left subclavian, dressing dry and intact. Will be turned and repositioned every 2-3 hours to prevent skin breakdown. Will continue to monitor and ensure safety.
[2020-01-07 07:52] LABS: CALCIUM, SERUM 9.3 mg/dL (8.5-10.1); POTASSIUM 4.3 mmol/L (3.5-5.1)
[2020-01-07 07:57] LABS: CREATININE 7.5 mg/dL (0.6-1.3)
[2020-01-07] MEDS: ASCORBIC ACID 500 MG TABLET GT SCH (08:07)
[2020-01-07] MEDS: DOCUSATE SODIUM LIQ 100 MG/10 ML UDC GT SCH ×2 (08:07→16:37)
[2020-01-07] MEDS: PROSOURCE / PROSTAT (PYXIS) 30 ML UDC GT SCH ×3 (08:08→16:37)
[2020-01-07] MEDS: PANTOPRAZOLE 40 MG/PACK PACK GT SCH (08:08)
[2020-01-07] MEDS: methylPREDNISolone (4MG) 4 MG TABLET GT SCH (08:08)
[2020-01-07] MEDS: DAKINS QUARTER STRENGTH (0.125%) 480 ML BOTTLE TOP SCH (08:09)
[2020-01-07] MEDS: ATENOLOL 25 MG TABLET GT SCH (08:10)
[2020-01-07] MEDS: HYDROGEL DRESSING 90 GM TUBE TP SCH (08:10)
--- NOTE | 2020-01-07 08:22 | NUR ---
MS/RN Medications Morning medications administered via GT as ordered.
[2020-01-07] MEDS: Z GUARD REMEDY 2 OZ OINT TP SCH (09:11)
[2020-01-07] MEDS: SILVER SULFADIAZINE 50 GM JAR TP SCH (09:11)
--- NOTE | 2020-01-07 12:00 | NUR ---
MS/RN Blood sugar Blood sugar at noon 103, no coverage needed.
[2020-01-07] MEDS: NEPRO 1,000 ML BOTTLE GT PRN (12:06)
--- NOTE | 2020-01-07 12:55 | NUR ---
MS/child care nurse Wound care as ordered, trach tie changed.
--- NOTE | 2020-01-07 17:57 | NUR ---
MS/RN Trach care Trach care and trach tie changed.
--- NOTE | 2020-01-07 18:08 | NUR ---
Pt received trach'd on mechanical ventilation. Alarms are set and audible w ambubag @ hob. Pt sx'd and MDI txs given w no adverse reactions. Pt is stable. No respiratory distress noted t/o shift. Addendum: 01/07/20 at 1808 by RADHA BAUTISTA RT Amended: Links added.
--- NOTE | 2020-01-07 18:32 | NUR ---
MS/RN End note Patient remains in stable condition, awaiting placement.
--- NOTE | 2020-01-07 19:42 | NUR ---
MANAGER AUDIT OPENING NOTES PATIENT RECEIVED RESTING IN BED COMFORTABLY; NON-VERBAL, TRACH PATIENT; PATIENT TOLERATING CURRENT VENT SETTINGS AT THIS TIME; TELE MONITOR READS NSR; L HAND #24 SL INTACT AND PATENT; L SUBCLAVIAN HD CATH IN PLACE; G TUBE IN PLACE; NEPHRO TUBE FEEDING RUNNING AT 45ML/HR; TOLERATING FEEDING WELL WITH LOW RESIDUALS; SAFETY PRECAUTIONS IMPLEMENTED; BED LOCKED IN LOW POSITION; SIDE RAILS X2; WILL CONT TO MONITOR; PER AM SHIFT, AWAITING D/C TO SNF WHEN BED IS AVAILABLE
[2020-01-07] MEDS: VIT B CMPLX 3/FA/VIT C/BIOTIN 1 TAB TABLET GT SCH (21:29)
[2020-01-08] VITALS: BP 133/78
[2020-01-08] MEDS: BLOOD SUGAR DIAGNOSTIC 1 EACH STRIP IN SCH ×3 (00:02→11:43)
[2020-01-08] MEDS: IPRATROPIUM BROMIDE 14 GM INHALER (or 12.9 GM) INH SCH ×3 (02:04→13:30)
[2020-01-08] MEDS: ALBUTEROL SULFATE 8 GM HFA.AER.AD IH SCH ×3 (02:04→13:30)
[2020-01-08 04:00] VITALS: BP 134/79
[2020-01-08] MEDS: ACETAMINOPHEN 650 MG/20.3 ML UDC GT PRN (04:51)
--- NOTE | 2020-01-08 05:06 | NUR ---
POST OFFICE CLERK NOTES PATIENT 0400 VITAL SIGN TEMP: 99.2F, TYLENOL GIVEN, COOLING MEASURES STARTED; WILL CONT TO MONITOR
--- NOTE | 2020-01-08 06:43 | NUR ---
[facility] HOSPITALIST CLOSING NOTES PATIENT RESTING IN BED COMFORTABLY; BREATHING EVEN AND UNLABORED; NO CHANGES IN VENT SETTINGS AT THIS TIME; PATIENT TOLERATING VENT SETTINGS WELL; TELE MONITOR READS NSR; GTUBE FEEDING RUNNING AT 45ML/HR; PATIENT TOLERATING GTUBE FEEDING WELL WITH LOW RESIDUALS; ALL NEEDS RENDERED; BED LOCKED IN LOW POSITION; SIDE RAILS X2; WILL ENDORSE DENNIS TO ONCOMING SHIFT
--- NOTE | 2020-01-08 07:34 | NUR ---
MS/RN Opening note Patient received from hotel night auditor. Vent to trach, no change to settings, saturation 100%. GT tube feeding infusing at 45ml/hr no residual at this time. Heplock to right arm, no signs of infiltration, flushing well with saline.. Safety measures in place, bed in low setting, side rails X3 in upright position. Will continue to monitor and ensure safety.
[2020-01-08 08:00] VITALS: BP 136/78
[2020-01-08] MEDS: PANTOPRAZOLE 40 MG/PACK PACK GT SCH (08:25)
[2020-01-08] MEDS: ATENOLOL 25 MG TABLET GT SCH (08:25)
[2020-01-08] MEDS: Z GUARD REMEDY 2 OZ OINT TP SCH (08:25)
[2020-01-08] MEDS: DOCUSATE SODIUM LIQ 100 MG/10 ML UDC GT SCH ×2 (08:25→16:51)
[2020-01-08] MEDS: ASCORBIC ACID 500 MG TABLET GT SCH (08:25)
[2020-01-08] MEDS: DAKINS QUARTER STRENGTH (0.125%) 480 ML BOTTLE TOP SCH (08:25)
[2020-01-08] MEDS: SILVER SULFADIAZINE 50 GM JAR TP SCH (08:26)
[2020-01-08] MEDS: HYDROGEL DRESSING 90 GM TUBE TP SCH (08:27)
--- NOTE | 2020-01-08 08:30 | NUR ---
MS/RN Medications Morning medications administered via GT.
[2020-01-08] MEDS: methylPREDNISolone (4MG) 4 MG TABLET GT SCH (08:35)
[2020-01-08] MEDS: PROSOURCE / PROSTAT (PYXIS) 30 ML UDC GT SCH ×3 (09:17→16:51)
--- NOTE | 2020-01-08 09:17 | NUR ---
MS/RN S/B Dr Martinez Seen by MD - no new orders, awaitng placement.
[2020-01-08] MEDS: NEPRO 1,000 ML BOTTLE GT PRN (10:43)
--- NOTE | 2020-01-08 13:00 | NUR ---
MS/RN COVID swab Rapid covid swab colleted as per corrections caseworker. Sub acute willing to take patient back once swab is resulted as negative.
--- NOTE | 2020-01-08 14:31 | NUR ---
MS/RN COVID result COVID swab resulted at negative.
[2020-01-08 16:00] VITALS: BP_SYST 140; BP_DIAS 82; BP_DIAS 92
--- NOTE | 2020-01-08 16:00 | NUR ---
MS/patient care technician instructor Wound care carried out, pictures taken as patient to be discharged to SNF later today.
--- NOTE | 2020-01-08 16:30 | NUR ---
MS/location and measurement technician order Per bilingual patient support caseworker Sandra, patient to be be picked up at 6p, going to [facility]. All medications to be continued.
--- NOTE | 2020-01-08 17:07 | NUR ---
MS/RN Report Report called to Noreen at [facility] , patient will be going to room 7A. fuel system maintenance supervisor arranged for 6p.
--- NOTE | 2020-01-08 19:17 | NUR ---
MS/oil inspector Patient discharged to [facility] in stable condition. Report given to paramedics. GT flushed before clamping, heplock already removed. No personal belongings, tele removed along with name bands.
== END 2020-01-08 19:17 | DRG 710 ==
LOC: ER 12:50 → TELE1 14:36 → TELE 12-22 13:34
PROVIDERS: ADMIT Internal Medicine; ATTEND Internal Medicine
PROC: 5A1955Z Respiratory Ventilation, Greater than 96 Consecutive Hours (ICD-10-PCS; principal; 2019-12-13)
PROC: 5A1D70Z Performance of Urinary Filtration, Intermittent, Less than 6 Hours Per Day (ICD-10-PCS; 2019-12-14)
PROC: 0KBN0ZZ Excision of Right Hip Muscle, Open Approach (ICD-10-PCS; 2019-12-17)
PROC: 0QB10ZZ Excision of Sacrum, Open Approach (ICD-10-PCS; 2019-12-17)
PROC: 0JB90ZZ Excision of Buttock Subcutaneous Tissue and Fascia, Open Approach (ICD-10-PCS; 2019-12-17)
PROC: 0QB10ZZ Excision of Sacrum, Open Approach (ICD-10-PCS; 2019-12-26)
PROC: 0JBM0ZZ Excision of Left Upper Leg Subcutaneous Tissue and Fascia, Open Approach (ICD-10-PCS; 2019-12-26)
PROC: 0KBN0ZZ Excision of Right Hip Muscle, Open Approach (ICD-10-PCS; 2019-12-26)
DX: A41.9 Sepsis, unspecified organism (principal); R65.21 Severe sepsis with septic shock; G93.1 Anoxic brain damage, not elsewhere classified; Z99.11 Dependence on respirator [ventilator] status; G93.40 Encephalopathy, unspecified; J96.10 Chronic respiratory failure, unspecified whether with hypoxia or hypercapnia; B49 Unspecified mycosis; L89.154 Pressure ulcer of sacral region, stage 4; L89.324 Pressure ulcer of left buttock, stage 4; E11.22 Type 2 diabetes mellitus with diabetic chronic kidney disease; L89.314 Pressure ulcer of right buttock, stage 4; Z93.0 Tracheostomy status; J44.9 Chronic obstructive pulmonary disease, unspecified; I12.0 Hypertensive chronic kidney disease with stage 5 chronic kidney disease or end stage renal disease; D63.8 Anemia in other chronic diseases classified elsewhere; Z99.2 Dependence on renal dialysis; Z93.1 Gastrostomy status; N39.0 Urinary tract infection, site not specified; N18.6 End stage renal disease; E11.621 Type 2 diabetes mellitus with foot ulcer; E11.649 Type 2 diabetes mellitus with hypoglycemia without coma; E11.51 Type 2 diabetes mellitus with diabetic peripheral angiopathy without gangrene; F03.90 Unspecified dementia, unspecified severity, without behavioral disturbance, psychotic disturbance, mood disturbance, and anxiety; I69.354 Hemiplegia and hemiparesis following cerebral infarction affecting left non-dominant side; K21.9 Gastro-esophageal reflux disease without esophagitis; R13.10 Dysphagia, unspecified; Z79.4 Long term (current) use of insulin; Z86.14 Personal history of Methicillin resistant Staphylococcus aureus infection; Z79.51 Long term (current) use of inhaled steroids; L97.419 Non-pressure chronic ulcer of right heel and midfoot with unspecified severity; L97.429 Non-pressure chronic ulcer of left heel and midfoot with unspecified severity; Z79.899 Other long term (current) drug therapy; E11.69 Type 2 diabetes mellitus with other specified complication; M86.9 Osteomyelitis, unspecified; N25.0 Renal osteodystrophy; Z74.01 Bed confinement status; E11.622 Type 2 diabetes mellitus with other skin ulcer; D68.59 Other primary thrombophilia; D63.1 Anemia in chronic kidney disease; N48.5 Ulcer of penis; M62.462 Contracture of muscle, left lower leg; M62.461 Contracture of muscle, right lower leg; M62.422 Contracture of muscle, left upper arm; M62.421 Contracture of muscle, right upper arm; B96.89 Other specified bacterial agents as the cause of diseases classified elsewhere; Z74.09 Other reduced mobility; B37.9 Candidiasis, unspecified; M62.40 Contracture of muscle, unspecified site; Z16.24 Resistance to multiple antibiotics
CPT/HCPCS: 31720; 36415; 71045-TC; 80048-TC; 80053-TC; 80061-TC; 80076-TC; 80150; 81000-TC; 82272-TC; 82728-TC; 82962-TC; 83540-TC; 83605-TC; 83735-TC; 84100-TC; 84484-TC; 85025-TC; 85730-TC; 86706; 87040-TC; 87070-TC; 87081-TC; 87086-TC; 87186-TC; 87340; 90935-TC; 94002-TC; 94003-TC; 94640; 94664; 94760-TC; 94762-TC; 94799-TC; A4623; A6248; A6253; A6403; A6407; A7526; G0378; J0278; J0692; J0696; J0885; J1644; J1815; J2405; J2543; J2920; J7030; J7040; J7050; J7060; J7509; U0003-CS

== ENCOUNTER 2020-02-12 14:22 | Inpatient (IN) | payer MEDICAID ==
[~2020-02-12] VITALS: Ht 172.7 cm; Wt 62.6 kg
[~2020-02-12 14:22] MED LIST changes: +ACET-2605 GT; +ATEN25TA GT; -CEFE1PIG3 IV; +METH4TAB17 GT; -METH4TAB17 PO; +MIDO10TA PO; -MULT-447 GT; -RXVAN IV; -Silver Sulfadiazine TP; +TYL2T GT; -VANC500F2 IV; -ZINC1CAP2 GT
--- NOTE | 2020-02-12 14:22 | NUR ---
PT JONATHAN FROM [facility]IS [facility] FOR LOW BP. PT IS AAOX0, ON MECH VENT VIA TRACH, HOOKED TO BLOOD DONOR UNIT ASSISTANT, KEPT RESTED AND COMFORTABLE. WILL CONTINUE TO MONITOR.
--- NOTE | 2020-02-12 14:53 | NUR ---
SEEN AND EXAMINED BY .
[2020-02-12] MEDS ORDERED: PIPERACILLIN /TAZOBACTAM 3.375 G in IV D5W 50 ML IV ONE (15:00)
[2020-02-12] MEDS ORDERED: VANCOMYCIN HCL 1 GM in IV D5W 260 ML IV ONE (15:00)
--- NOTE | 2020-02-12 15:10 | NUR ---
IV LINE ESTABLISHED BLOOD DRAWN AND SENT TO LAB.
--- NOTE | 2020-02-12 15:23 | NUR ---
CALLED PHARMACY FOR IV ANTIBIOTIC.
[2020-02-12 15:25] LABS: BASOPHILS % (AUTO) 0.2 % (0.0-2.0); EOSINOPHILS % (AUTO) 0.1 % (0.0-6.0); HEMATOCRIT 37 % (39-51); HEMOGLOBIN 11.7 g/dL (13.5-17.5); LYMPHOCYTES # (AUTO) 1.3 /CMM (0.8-4.8); MEAN CORPUSCULAR HGB CONC 31 g/dl (31.0-36.0); MEAN CORPUSCULAR VOLUME 104 fL (80-96); MONOCYTES # (AUTO) 2.1 /CMM (0.1-1.30); MONOCYTES % (AUTO) 10.1 % (2.0-12.0); NEUTROPHILS # (AUTO) 17.6 /CMM (1.8-8.9); NEUTROPHILS % (AUTO) 83.6 % (43.0-81.0); PLATELET COUNT (AUTO) 416 /CMM (150-450)
--- NOTE | 2020-02-12 15:25 | NUR ---
CALLED [facility]
[2020-02-12 15:45] LABS: ALBUMIN 2.8 g/dL (3.4-5.0); BILIRUBIN,DIRECT 0.2 mg/dL (0.0-0.2); BILIRUBIN,TOTAL 0.5 mg/dL (0.2-1.0); CALCIUM, SERUM 10.5 mg/dL (8.5-10.1); TOTAL PROTEIN, SERUM 8.9 g/dL (6.4-8.2)
[2020-02-12] MEDS ORDERED: IV NS 0.9% 500 ML BAG IV ONE (16:30)
--- NOTE | 2020-02-12 16:33 | NUR ---
REPORT GIVEN TO WALESKA. PT AWAITING TRANSFER TO FLOOR.
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
[2020-02-12 17:05] VITALS: BP 106/68
--- NOTE | 2020-02-12 18:32 | NUR ---
telegraph mechanic note called to dr reynolds for admission ordered stated that will place soon, will f\u
--- NOTE | 2020-02-12 19:30 | NUR ---
SANIPRACTIC PHYSICIAN OPEN NOTES PATIENT IS SLEEPING IN BED. NONVERBAL. ON VENT TOLERATING WELL, NO SOB/ ACUTE RESPIRATORY DISTRESS NOTED. APPEARS COMFORTABLE, SHOWS NO SIGNS OF PAIN. BED IS IN LOWEST LOCKED POSITION WITH SIDE RAILS UP X3, SEMI FOWLERS. CALL LIGHT IS WITHIN REACH. WILL CONTINUE TO MONITOR.
[2020-02-12] MEDS ORDERED: HYDROCODONE/APAP 5/325MG TABLET PO PRN (20:30)
[2020-02-12] MEDS ORDERED: ZOLPIDEM TARTRATE 5 MG TABLET PO PRN (20:30)
[2020-02-12] MEDS ORDERED: Z GUARD REMEDY 2 OZ OINT TP PRN (20:30)
[2020-02-12] MEDS ORDERED: ONDANSETRON HCL/PF 4 MG/2 ML VIAL IVP PRN (20:30)
[2020-02-12] MEDS ORDERED: BISACODYL SUPP (10 MG) 10 MG/SUPP.RECT SUPP.RECT RC PRN (20:30)
[2020-02-12] MEDS ORDERED: DEXTROSE 50%-WATER 50 ML DISP.SYRIN IV PRN (21:00)
[2020-02-12] MEDS ORDERED: GENTAMICIN 100 MG in IV D5W 100 ML IV ONE (21:00)
[2020-02-12] MEDS ORDERED: GENTAMICIN 80 MG in IV D5W 50 ML IV PRN (21:00)
[2020-02-12] MEDS: VIT B CMPLX 3/FA/VIT C/BIOTIN 1 TAB TABLET GT SCH (21:33)
[2020-02-12] MEDS: ACIDOPHILUS/BULGARICUS 1 EACH TAB.CHEW GT SCH (21:33)
[2020-02-12] MEDS: HYDROCORTISONE SOD SUCCINATE 100 MG/2 ML VIAL IV SCH (21:34)
[2020-02-12] MEDS: NEPRO 1,000 ML BOTTLE GT SCH (21:36)
[2020-02-12] MEDS: HEPARIN SODIUM, PORCINE 5000 UNITS/1 ML VIAL SQ SCH (21:36)
[2020-02-12] MEDS: BLOOD SUGAR DIAGNOSTIC 1 EACH STRIP IN SCH (23:06)
[2020-02-13] MEDS ORDERED: Medication Not On Formulary EA (Ipratropium/Albuterol Sulfate (Duoneb 2.5-0.5 Mg/3 Ml So IH SCH
[2020-02-13] MEDS: ACETAMINOPHEN 325 MG TABLET PO PRN (02:14)
[2020-02-13] MEDS: HYDROCORTISONE SOD SUCCINATE 100 MG/2 ML VIAL IV SCH ×3 (04:48→21:10)
[2020-02-13] MEDS: BLOOD SUGAR DIAGNOSTIC 1 EACH STRIP IN SCH ×3 (05:09→18:12)
[2020-02-13] MEDS: INSULIN REGULAR, HUMAN 100 UNIT/ML 3 ML VIAL SQ PRN ×3 (05:15→18:16)
--- NOTE | 2020-02-13 06:19 | NUR ---
PIN DRAFTING MACHINE OPERATOR CLOSE NOTES PATIENT IS LAYING IN BED. NONVERBAL. ON MECH VENT TOLERATING WELL, NO SOB/ ACUTE RESPIRATORY DISTRESS NOTED. IV IN R HAND #18G IS PATENT AND INTACT. SHOWS NO SIGNS OF PAIN. ALL DUE MEDICATIONS GIVEN. ALL ACCUCHECKS DONE. GTUBE IN PLACE RECEIVING FEEDING @ 60ML/HR. BED IS IN LOWEST LOCKED POSITION WITH SIDE RAILS UP X3, SEMI FOWLERS. CALL LIGHT IS WITHIN REACH. WILL ENDORSE TO AM NURSE.
[2020-02-13 07:10] LABS: HEMATOCRIT 34 % (39-51); HEMOGLOBIN 10.8 g/dL (13.5-17.5); MEAN CORPUSCULAR VOLUME 103 fL (80-96); RED BLOOD CELL COUNT(AUTO) 3.31 MIL/uL (4.5-6.0); WHITE BLOOD COUNT (AUTO) 21.7 K/uL (4.3-11.0)
[2020-02-13 07:11] LABS: BASOPHILS % (AUTO) 0.1 % (0.0-2.0); LYMPHOCYTES # (AUTO) 1.4 /CMM (0.8-4.8); LYMPHOCYTES % (AUTO) 6.2 % (20.0-44.0); MEAN CORPUSCULAR HGB CONC 32 g/dl (31.0-36.0); MONOCYTES # (AUTO) 1.7 /CMM (0.1-1.30); MONOCYTES % (AUTO) 7.9 % (2.0-12.0); NEUTROPHILS # (AUTO) 18.6 /CMM (1.8-8.9); NEUTROPHILS % (AUTO) 85.8 % (43.0-81.0); PLATELET COUNT (AUTO) 380 /CMM (150-450)
[2020-02-13 07:27] LABS: POTASSIUM 4.4 mmol/L (3.5-5.1)
[2020-02-13 07:35] LABS: CREATININE 10.9 mg/dL (0.6-1.3)
[2020-02-13 07:37] LABS: MAGNESIUM 4.1 mg/dL (1.8-2.4)
--- NOTE | 2020-02-13 07:51 | NUR ---
WOUND CARE CONSULT: PT ADMITTED WITH MULTIPLE WOUNDS, PRESENT ON ADMISSION. REVIEWED CHART, NURSING DOCUMENTATION. PT FOLLOWED BY SURGICAL AND PODIATRY TEAMS FOR WOUNDS. DR MARIEE AND DR LAM NOTIFIED OF PT ADMISSION. RECOMMENDATIONS MADE FOR SKIN PROTECTION. DISCUSSED WITH NURSING STAFF. DEFER TO SURGICAL TEAMS FOR WOUND TREATMENT PLAN. PT IS ON ABELARDO ISOFLEX LOW AIRLOSS BED. MD IN AGREEMENT WITH PLAN OF CARE.
--- NOTE | 2020-02-13 08:10 | NUR ---
VP GLOBAL MARKETING [employer]/[facility] OPENING NOTE RECEIVED PT IN BED AWAKE AND ALERT. PT IS NON VERBAL WITH A VENT WITH ORDERED SETTING. RT AT BEDSIDE. NO SOB OR ACUTE DISTRESS NOTED AT THIS TIME. PT IS ON TELE MONITORING WITH ST HR 106 AT THIS TIME. PT HAS A G-TUBE THAT IS INTACT, PATENT WITH NEPHRO @ 60ML/HR. PT HAS A RIGHT FOREARM 22' INTACT AND FLUSHED WELL AND LEFT HD CATH IN PLACE. PT IS IN STABLE CONDITION AT THIS MOMENT. HOB ELEVATED TOLERATED. PT IS CLEAN, DRY AND COMFORTABLE. CALL LIGHT WITHIN REACH AND FUNCTIONING. BED LOCKED AND IN LOWEST POSITION. WILL CONTINUE TO MONITOR AND ASSESS PT.
[2020-02-13] MEDS ORDERED: BLOOD SUGAR DIAGNOSTIC 1 EACH STRIP IN SCH (09:00)
[2020-02-13] MEDS: PANTOPRAZOLE 40 MG/PACK PACK GT SCH (09:09)
[2020-02-13] MEDS: DOCUSATE SODIUM LIQ 100 MG/10 ML UDC GT SCH ×2 (09:09→16:44)
[2020-02-13] MEDS: ASCORBIC ACID 500 MG TABLET GT SCH (09:10)
[2020-02-13] MEDS: ACIDOPHILUS/BULGARICUS 1 EACH TAB.CHEW GT SCH ×2 (09:10→21:10)
[2020-02-13] MEDS: HEPARIN SODIUM, PORCINE 5000 UNITS/1 ML VIAL SQ SCH ×2 (09:20→21:13)
[2020-02-13] MEDS: methylPREDNISolone (4MG) 4 MG TABLET GT SCH (09:21)
[2020-02-13] MEDS: ALBUTEROL SULFATE 8 GM HFA.AER.AD IH SCH ×2 (12:56→17:33)
[2020-02-13] MEDS: IPRATROPIUM BROMIDE 14 GM INHALER (or 12.9 GM) IH SCH ×2 (12:57→17:33)
[2020-02-13] MEDS: VANCOMYCIN 500 MG in IV D5W 100 ML IV PRN (17:31)
[2020-02-13] MEDS: THERAHONEY GEL 1.5 OZ TUBE TP SCH (17:32)
[2020-02-13] MEDS: DAKINS QUARTER STRENGTH (0.125%) 480 ML BOTTLE TOP SCH (17:32)
--- NOTE | 2020-02-13 19:10 | NUR ---
lace burn out tender opening notes received patient in bed head of bed elevated for aspiration precautions, non verbal open eyes, responsive to tactile stimuli, on cardiac tele monitor st 108, no distress present, on mech vent toelrating well, alarms audible, sp02 at bedside, 02 sat 100%, mech vent plugged in to red emergency plug. iv site to right fa #22 g intact and patent, no redness, no infiltration present, lcw hd cath in place, with dsg c/d/i. noted with bilateral lower ext contractures and floated with pillows, all needs attended at this time , remains comfortable will continue to monitor.
--- NOTE | 2020-02-13 19:11 | NUR ---
music industry intern notes tolerating gtube feeding well, residuals 0cc.
--- NOTE | 2020-02-13 19:23 | NUR ---
CHILD LIFE ASSISTANT [facility]/TELE CLOSING NOTE PT IS CURRENTLY IN BED AWAKE AND ALERT. PT IS NON VERBAL. NO ACUTE DISTRESS, SOB, OR FACE GRIMACING NOTED THROUGH OUT SHIFT. PT IS VENT DEPENDENT ON SETTING ORDERED. PT'S G-TUBE INTACT AND PATENT. NO SIGNS OR SYMPTOMS OF INFECTION NOTED OF G-TUBE SITE. PT IS ON TELE MONITORING WITH ST HR 105 NOTED CURRENTLY. PT'S RIGHT FOREARM 22' INTACT AND FLUSHED WELL. ALL SCHEDULED MEDS GIVEN AND TOLERATED WELL. PT RECEIVED DIALYSIS TODAY WITH 1L REMOVED ACCORDING TO DIALYSIS NURSE. PT IS IN STABLE CONDITION. PT TURNED Q2 HOURS. PT KEPT CLEAN, DRY AND COMFORTABLE. BED LOCKED AND IN LOWEST POSITION. WILL ENDORSE TO NEXT SHIFT NURSE FOR DENNIS.
[2020-02-13 20:00] VITALS: BP 96/69
[2020-02-13] MEDS: VIT B CMPLX 3/FA/VIT C/BIOTIN 1 TAB TABLET GT SCH (21:11)
[2020-02-14] MEDS: NEPRO 1,000 ML BOTTLE GT SCH (00:03)
[2020-02-14] MEDS: ALBUTEROL SULFATE 8 GM HFA.AER.AD IH SCH ×4 (00:08→17:34)
[2020-02-14] MEDS: IPRATROPIUM BROMIDE 14 GM INHALER (or 12.9 GM) IH SCH ×4 (00:08→17:34)
--- NOTE | 2020-02-14 00:16 | NUR ---
rn compliance notes upon assessment, provided patient care and attempting to reposition noted facial grimacing noted increase in heart rate 150-160's . noted discomfort norco prn given for pain and prior to wound care. will continue to monitor.
[2020-02-14] MEDS: BLOOD SUGAR DIAGNOSTIC 1 EACH STRIP IN SCH ×4 (00:26→17:47)
[2020-02-14] MEDS: INSULIN REGULAR, HUMAN 100 UNIT/ML 3 ML VIAL SQ PRN ×3 (00:26→12:17)
--- NOTE | 2020-02-14 01:00 | NUR ---
nurse charge rn notes noted norco effective, heart rate decreased to 112. patient tolerated repositioning.
[2020-02-14 01:07] VITALS: BP 107/73
[2020-02-14 04:30] VITALS: BP 90/62
[2020-02-14] MEDS: MIDODRINE HCL (5MG) 5 MG TABLET PO PRN ×2 (04:38→08:22)
--- NOTE | 2020-02-14 04:38 | NUR ---
RETAIL WAREHOUSE ASSOCIATE NOTES MIDODRINE ORN GIVEN FOR DECREASED B/P OF 90/62, HR 106. NO DISTRESS PRESENT REMAINS COMFORTABLE WILL CONTINUE TO MONITOR.
[2020-02-14] MEDS: HYDROCORTISONE SOD SUCCINATE 100 MG/2 ML VIAL IV SCH ×3 (04:41→21:23)
--- NOTE | 2020-02-14 05:28 | NUR ---
psych arnp notes noted bp increase 91/70 no distress present
--- NOTE | 2020-02-14 06:32 | NUR ---
furnace worker closing notes patient in bed head of bed elevated for aspiration precautions, non verbal open eyes, responsive to tactile stimuli, on cardiac tele monitor st 88, no distress present, on mech vent tolerating well, alarms audible, sp02 at bedside, 02 sat 100%, mech vent plugged in to red emergency plug. iv site to right fa #22 g intact and patent, no redness, no infiltration present, lcw hd cath in place, with dsg c/d/i. noted with bilateral lower ext contractures and floated with pillows, wound care done as ordered, all needs attended at this time , remains comfortable will continue to monitor and endorse to next shift, remains comfortable.
[2020-02-14 08:00] VITALS: BP 80/56
--- NOTE | 2020-02-14 08:00 | NUR ---
BATTER DEPOSITOR/[facility] OPENING NOTE RECEIVED PT IN BED SLEEPING . PT IS NON VERBAL WITH A VENT SET UP FOR PORTEX #8 AC OF 14 TV 500 PEEP 5. NO SOB OR ACUTE DISTRESS NOTED AT THIS TIME. PT IS ON TELE MONITORING WITH ST HR 108 AT THIS TIME. PT HAS A G-TUBE WITH NEPHRO @ 60ML/HR. PT HAS A RIGHT FOREARM 22' INTACT AND FLUSHED WELL AND LEFT HD CATH IN PLACE. PT IS IN STABLE CONDITION AT THIS MOMENT. HOB ELEVATED TOLERATED. CALL LIGHT WITHIN REACH. BED LOCKED AND IN LOWEST POSITION. WILL CONTINUE TO MONITOR
[2020-02-14] MEDS: DOCUSATE SODIUM LIQ 100 MG/10 ML UDC GT SCH ×2 (08:21→17:34)
[2020-02-14] MEDS: methylPREDNISolone (4MG) 4 MG TABLET GT SCH (08:22)
[2020-02-14] MEDS: ACIDOPHILUS/BULGARICUS 1 EACH TAB.CHEW GT SCH ×2 (08:22→21:23)
[2020-02-14] MEDS: ASCORBIC ACID 500 MG TABLET GT SCH (08:22)
[2020-02-14] MEDS: PANTOPRAZOLE 40 MG/PACK PACK GT SCH (08:22)
[2020-02-14] MEDS: HEPARIN SODIUM, PORCINE 5000 UNITS/1 ML VIAL SQ SCH ×2 (08:25→21:24)
[2020-02-14] MEDS: SILVER SULFADIAZINE 50 GM JAR TP SCH (08:27)
[2020-02-14] MEDS: THERAHONEY GEL 1.5 OZ TUBE TP SCH (08:27)
[2020-02-14] MEDS: DAKINS QUARTER STRENGTH (0.125%) 480 ML BOTTLE TOP SCH (09:08)
--- NOTE | 2020-02-14 10:30 | NUR ---
[facility] RN NOTES DIALYSIS NURSE MEGAN NEXT TO THE PT BED.NOT DIALYSIS BUT ELECTROLYTE BALANCING
[2020-02-14 12:00] VITALS: BP 94/66
[2020-02-14] MEDS: PROSOURCE / PROSTAT (PYXIS) 30 ML UDC GT SCH ×2 (12:18→17:34)
--- NOTE | 2020-02-14 14:34 | NUR ---
Gentamicin level was 2.7 Pharmacy was notified
--- NOTE | 2020-02-14 15:23 | NUR ---
[facility] CAREER PLACEMENT SPECIALIST NOTES Gentamicin level was 2.7 Pharmacy LEFT ME A NOTE
--- NOTE | 2020-02-14 16:06 | NUR ---
Patient transferred from [facility] reported by Libia RN, Gentamicin level is 2.[address] Ryan.
--- NOTE | 2020-02-14 16:43 | NUR ---
[facility] RN NOTES TRANSFERRED WITH RT BECAUSE PT ON MECHANICAL VENTILATION. TO 307#2 WITH RT, MEGAN, AND GAVE REPORT TO FOREIGN. PT IS IN STABLE CONDITION. PT'S VS WNL. TRANSFERRED TO [facility] [address] FLOOR.
--- NOTE | 2020-02-14 18:40 | NUR ---
RN Closing note Patient in bed does no appears pain or distress, skin is warm to touch, kept clean/dry, intact IV g tube formula running 60ml/hr, no s/s of over fluid observed. Respiratory even and unlabored on room air O2sat 100% with vent machine, provided oral care. Keep bed in locked with elevated HOB for ensure airway and elevated HOB. Call light within reach, will endorse overnight babysitter.
[2020-02-14 20:00] VITALS: BP 105/72
--- NOTE | 2020-02-14 20:00 | NUR ---
RN NOTE RECEIVED PT IN BED. PT OPEN EYES TO TOUCH. PT IS ON VENT SATING 100% VIA TRECH. PT HAS PERMA CATH ON LEFT CHEST. TELE MONITOR SHOWING HR OF 84 SR.22 G IV ON R FOREARM S/L FLUSHES WELL. SAFETY MEASURES IN PLACE BED AT LOWEST POSITION, LOCKED, SIDE RAILS UP X2, CALL LIGHT IN REACH.
[2020-02-14] MEDS: VIT B CMPLX 3/FA/VIT C/BIOTIN 1 TAB TABLET GT SCH (21:22)
--- NOTE | 2020-02-14 22:07 | NUR ---
RT NOTE PT RECEIVED TRACHED ON MECHANICAL VENTILATION. CUFF CHECKED VIA STEEL ESTIMATOR. SX DONE, TRACH SECURED AND PATENT. VENT PLUGGED TO RED OUTLET. ALARMS ON AND AUDIBLE. NO DISTRESS NOTED AT THIS TIME. WILL MONITOR T/O SHIFT. CONT. PULSE OX CONNECTED. Addendum: 02/14/20 at 2208 by USAMA JOHNSON RT Amended: Links added.
[2020-02-15] VITALS: BP 119/76
[2020-02-15] MEDS: BLOOD SUGAR DIAGNOSTIC 1 EACH STRIP IN SCH ×5 (00:08→23:18)
[2020-02-15] MEDS: NEPRO 1,000 ML BOTTLE GT SCH (00:08)
[2020-02-15] MEDS: IPRATROPIUM BROMIDE 14 GM INHALER (or 12.9 GM) IH SCH ×4 (01:14→19:49)
[2020-02-15] MEDS: ALBUTEROL SULFATE 8 GM HFA.AER.AD IH SCH ×4 (01:14→19:50)
[2020-02-15 04:00] VITALS: BP_SYST 114; BP_SYST 75; BP_DIAS 114; BP_DIAS 75
[2020-02-15] MEDS: ACETAMINOPHEN 325 MG TABLET PO PRN (04:12)
[2020-02-15] MEDS: HYDROCORTISONE SOD SUCCINATE 100 MG/2 ML VIAL IV SCH ×3 (06:08→20:53)
[2020-02-15 06:28] LABS: BASOPHILS % (AUTO) 0.2 % (0.0-2.0); HEMATOCRIT 33 % (39-51); HEMOGLOBIN 10.2 g/dL (13.5-17.5); LYMPHOCYTES # (AUTO) 1.3 /CMM (0.8-4.8); LYMPHOCYTES % (AUTO) 6.5 % (20.0-44.0); MEAN CORPUSCULAR HGB CONC 31 g/dl (31.0-36.0); MEAN CORPUSCULAR VOLUME 104 fL (80-96); MONOCYTES # (AUTO) 1.7 /CMM (0.1-1.30); MONOCYTES % (AUTO) 8.6 % (2.0-12.0); NEUTROPHILS # (AUTO) 17.1 /CMM (1.8-8.9); NEUTROPHILS % (AUTO) 84.7 % (43.0-81.0); PLATELET COUNT (AUTO) 322 /CMM (150-450); RED BLOOD CELL COUNT(AUTO) 3.14 MIL/uL (4.5-6.0); WHITE BLOOD COUNT (AUTO) 20.2 K/uL (4.3-11.0)
[2020-02-15 06:33] LABS: ALBUMIN 2.6 g/dL (3.4-5.0); BILIRUBIN,TOTAL 0.4 mg/dL (0.2-1.0); CALCIUM, SERUM 9.8 mg/dL (8.5-10.1); CREATININE 6.3 mg/dL (0.6-1.3); MAGNESIUM 3.2 mg/dL (1.8-2.4); PHOSPHORUS 3.2 mg/dL (2.5-4.9); POTASSIUM 3.9 mmol/L (3.5-5.1); TOTAL PROTEIN, SERUM 7.5 g/dL (6.4-8.2)
--- NOTE | 2020-02-15 07:21 | NUR ---
RN CLOSING NOTE PT REMAINED STABLE. NO ACUTE CHANGES DURING MY SHIFT. REPORT GIVEN TO INCOMING SHIFT FOR DENNIS.
--- NOTE | 2020-02-15 07:30 | NUR ---
RN OPENING NOTE Received patient in bed, non verbal, on ventilator, with settings portex #8 AC of 14, TV 500,PEEP 5,tolerating well with SPO2 of 100%, no SOB, or respiratory distress noted. Tele monitor readings shows SR HR 93. G-Tube noted; running Nephro @ 60cc/hr, intact, flushed and patent, Iv on R FA noted, intact and patent, L HD cath in place, intact,. Safety measures implemented, call light in reach, bed in lowest position, HOB elevated, will cont to monitor closely
[2020-02-15 08:00] VITALS: BP 112/78
[2020-02-15] MEDS: PANTOPRAZOLE 40 MG/PACK PACK GT SCH (08:28)
[2020-02-15] MEDS: ACIDOPHILUS/BULGARICUS 1 EACH TAB.CHEW GT SCH ×2 (08:28→20:53)
[2020-02-15] MEDS: DOCUSATE SODIUM LIQ 100 MG/10 ML UDC GT SCH ×2 (08:28→17:22)
[2020-02-15] MEDS: ASCORBIC ACID 500 MG TABLET GT SCH (08:28)
[2020-02-15] MEDS: DAKINS QUARTER STRENGTH (0.125%) 480 ML BOTTLE TOP SCH (08:29)
[2020-02-15] MEDS: THERAHONEY GEL 1.5 OZ TUBE TP SCH (08:30)
[2020-02-15] MEDS: SILVER SULFADIAZINE 50 GM JAR TP SCH (08:30)
[2020-02-15] MEDS: HEPARIN SODIUM, PORCINE 5000 UNITS/1 ML VIAL SQ SCH ×2 (08:33→20:54)
[2020-02-15] MEDS: PROSOURCE / PROSTAT (PYXIS) 30 ML UDC GT SCH ×3 (08:35→17:22)
[2020-02-15] MEDS: methylPREDNISolone (4MG) 4 MG TABLET GT SCH (08:39)
[2020-02-15] MEDS: INSULIN REGULAR, HUMAN 100 UNIT/ML 3 ML VIAL SQ PRN ×3 (12:08→23:20)
--- NOTE | 2020-02-15 13:39 | NUR ---
RN note Contacted patient daughter Clifford to obtain consent for wound debridement on bilat foots
[2020-02-15 16:00] VITALS: BP 96/68
--- NOTE | 2020-02-15 19:00 | NUR ---
communications director opening notes Received Pt from morning nurse. Pt is resting in bed comfortably, non verbal and able to open eyes. Pt is on [facility] ventilator with O2 sat is 100%. No SOB. No S/s of distress noted. Tele monitor showed Sr Hr at 79 bpm. L upper chest HD cath is in placed, clean, and intact. RFA# 22 is clean, intact and flush without resistance. G-tube is clean and intact. Per am nurse gtube nephro stop at 1800 and will starts again at 0000. Keep Pt clean, dry and comfortable. Safety precautions is maintained. Bed at low position, brakes locked, side rails upX3 and call light is within reach. Will continue to monitor.
--- NOTE | 2020-02-15 19:26 | NUR ---
RN CLOSING NOTES Patient remains in bed, tolerating settings well, no s/sx of resp distress noted, all meds given, comfort need met, IV line intact and patent, safety measures implemented, bed in lowest position, HOB elevated, call light in reach, will endorse to PM shift RN for DENNIS
[2020-02-15 20:00] VITALS: BP 114/72
[2020-02-15] MEDS: VIT B CMPLX 3/FA/VIT C/BIOTIN 1 TAB TABLET GT SCH (21:52)
[2020-02-16] VITALS: BP 129/78
--- NOTE | 2020-02-16 00:02 | NUR ---
pt rec'd trached on [facility] vent on AC mode settings as charted. pt shows no signs of resp distress or sob. pt sx'd for thick mod amt of pale yellow secretions. Trach is patent and secured. Alarms are set and audible. Ambu bag bedside. Vent plugged into red outlet. Will continue to monitor closely. Addendum: 02/16/20 at 0003 by EFRAIN PATTERSON RT Amended: Links added.
[2020-02-16] MEDS: NEPRO 1,000 ML BOTTLE GT SCH (00:20)
[2020-02-16] MEDS: IPRATROPIUM BROMIDE 14 GM INHALER (or 12.9 GM) IH SCH ×4 (01:59→19:50)
[2020-02-16] MEDS: ALBUTEROL SULFATE 8 GM HFA.AER.AD IH SCH ×4 (02:00→19:50)
[2020-02-16 04:00] VITALS: BP 119/73
[2020-02-16] MEDS: HYDROCORTISONE SOD SUCCINATE 100 MG/2 ML VIAL IV SCH (04:01)
[2020-02-16] MEDS: BLOOD SUGAR DIAGNOSTIC 1 EACH STRIP IN SCH ×3 (05:32→17:27)
[2020-02-16] MEDS: INSULIN REGULAR, HUMAN 100 UNIT/ML 3 ML VIAL SQ PRN ×2 (05:41→17:14)
[2020-02-16 06:23] LABS: BASOPHILS % (AUTO) 0.1 % (0.0-2.0); HEMATOCRIT 29 % (39-51); HEMOGLOBIN 9.3 g/dL (13.5-17.5); LYMPHOCYTES # (AUTO) 1.2 /CMM (0.8-4.8); LYMPHOCYTES % (AUTO) 6.7 % (20.0-44.0); MEAN CORPUSCULAR HGB CONC 32 g/dl (31.0-36.0); MEAN CORPUSCULAR VOLUME 103 fL (80-96); MONOCYTES # (AUTO) 1.3 /CMM (0.1-1.30); MONOCYTES % (AUTO) 7.3 % (2.0-12.0); NEUTROPHILS # (AUTO) 14.8 /CMM (1.8-8.9); NEUTROPHILS % (AUTO) 85.9 % (43.0-81.0); PLATELET COUNT (AUTO) 313 /CMM (150-450); RED BLOOD CELL COUNT(AUTO) 2.86 MIL/uL (4.5-6.0); WHITE BLOOD COUNT (AUTO) 17.2 K/uL (4.3-11.0)
[2020-02-16 06:45] LABS: CALCIUM, SERUM 9.6 mg/dL (8.5-10.1)
--- NOTE | 2020-02-16 06:50 | NUR ---
senior clinical data analyst closing notes Pt is resting in bed comfortably, non verbal and able to open eyes. Pt is on [facility] ventilator with O2 sat is 100%. No SOB. No S/S of distress noted. VS is stable. Afebrile. Routine meds were given as ordered. L upper chest HD cath is in placed, clean, and intact. RFA# 22 is clean, intact and flush without resistance. On going Gtube Nephro @ 60 mlx18 hrs. Pt tolerated well. Kept Pt clean, dry and comfortable. Wound care provided as ordered. All needs met and attended. Safety precautions is maintained. Bed at low position, brakes locked, side rails upX3 and call light is within reach. Will endorse to morning nurse for DENNIS.
[2020-02-16 06:51] LABS: CREATININE 7.9 mg/dL (0.6-1.3)
[2020-02-16 07:01] LABS: GENTAMICIN,RANDOM 2.1 ug/ml (4.0-8.0)
[2020-02-16 08:00] VITALS: BP_SYST 102; BP_SYST 116; BP_DIAS 63; BP_DIAS 80
[2020-02-16] MEDS: DOCUSATE SODIUM LIQ 100 MG/10 ML UDC GT SCH ×2 (09:02→16:17)
[2020-02-16] MEDS: methylPREDNISolone (4MG) 4 MG TABLET GT SCH (09:03)
[2020-02-16] MEDS: ACIDOPHILUS/BULGARICUS 1 EACH TAB.CHEW GT SCH ×2 (09:03→21:24)
[2020-02-16] MEDS: PANTOPRAZOLE 40 MG/PACK PACK GT SCH (09:03)
[2020-02-16] MEDS: ASCORBIC ACID 500 MG TABLET GT SCH (09:03)
[2020-02-16] MEDS: HEPARIN SODIUM, PORCINE 5000 UNITS/1 ML VIAL SQ SCH ×2 (09:05→21:25)
[2020-02-16] MEDS: PROSOURCE / PROSTAT (PYXIS) 30 ML UDC GT SCH ×3 (09:06→16:17)
[2020-02-16] MEDS: THERAHONEY GEL 1.5 OZ TUBE TP SCH (09:06)
[2020-02-16] MEDS: DAKINS QUARTER STRENGTH (0.125%) 480 ML BOTTLE TOP SCH (09:06)
[2020-02-16] MEDS: SILVER SULFADIAZINE 50 GM JAR TP SCH (09:06)
--- NOTE | 2020-02-16 09:23 | NUR ---
rn notes patient received on a ventilator, no sob noted, a/o x0 and is obtunded. duncan cath present and is working. L chest HD cath present RFA 22 present. G tube/nephro 60 ml per hour. Plan is to have HD today. Bed at the lowest setting, call light within reach, side rails up x2.
[2020-02-16] MEDS: VANCOMYCIN 500 MG in IV D5W 100 ML IV PRN (14:25)
[2020-02-16 16:00] VITALS: BP 118/79
--- NOTE | 2020-02-16 17:22 | NUR ---
rn notes patient remains on a ventilator, no sob noted, a/o x0 and is obtunded. duncan cath present and is working. L chest HD cath present RFA 22 present. G tube/nephro 60 ml per hour, to be off 2200 and on again at 0600. HD done today. Bed at the lowest setting, call light within reach, side rails up x2.
--- NOTE | 2020-02-16 19:00 | NUR ---
applications intern opening notes received patient in bed head of bed elevated for aspiration precautions, non verbal open eyes, responsive to tactile stimuli, on cardiac tele monitor sr 93, no distress present, on mech vent tolerating well, alarms audible, sp02 at bedside, 02 sat 100%, mech vent plugged in to red emergency plug. iv site to right fa #22 g intact and patent, no redness, no infiltration present, lcw hd cath in place, with dsg c/d/i. noted with bilateral lower ext contractures and floated with pillows, all needs attended at this time , remains comfortable will continue to monitor.
[2020-02-16 20:00] VITALS: BP 130/77
[2020-02-16] MEDS: VIT B CMPLX 3/FA/VIT C/BIOTIN 1 TAB TABLET GT SCH (21:24)
[2020-02-17] VITALS (7 sets, daily range): BP systolic 105–128; BP diastolic 73–85
[2020-02-17] MEDS: ALBUTEROL SULFATE 8 GM HFA.AER.AD IH SCH ×5 (00:11→23:12)
[2020-02-17] MEDS: IPRATROPIUM BROMIDE 14 GM INHALER (or 12.9 GM) IH SCH ×5 (00:11→23:12)
[2020-02-17] MEDS: BLOOD SUGAR DIAGNOSTIC 1 EACH STRIP IN SCH ×5 (00:40→23:55)
[2020-02-17] MEDS: INSULIN REGULAR, HUMAN 100 UNIT/ML 3 ML VIAL SQ PRN ×2 (00:40→05:18)
[2020-02-17] MEDS: NEPRO 1,000 ML BOTTLE GT SCH (04:07)
--- NOTE | 2020-02-17 06:12 | NUR ---
ornamenter closing notes patient in bed head of bed elevated for aspiration precautions, non verbal open eyes, responsive to tactile stimuli, on cardiac tele monitor st103, no distress present, on mech vent tolerating well, alarms audible, sp02 at bedside, 02 sat 100%, mech vent plugged in to red emergency plug. iv site to right fa #22 g intact and patent, no redness, no infiltration present, lcw hd cath in place, with dsg c/d/i. noted with bilateral lower ext contractures with wounds. wound care done as ordered and floated with pillows, all needs attended at this time , remains comfortable will continue to monitor and endorse to next shift, wound care done as ordered and patient repositioned.
[2020-02-17 06:26] LABS: BASOPHILS % (AUTO) 0.1 % (0.0-2.0); EOSINOPHILS % (AUTO) 0.3 % (0.0-6.0); HEMATOCRIT 32 % (39-51); HEMOGLOBIN 9.9 g/dL (13.5-17.5); LYMPHOCYTES # (AUTO) 2.8 /CMM (0.8-4.8); MEAN CORPUSCULAR HGB CONC 31 g/dl (31.0-36.0); MEAN CORPUSCULAR VOLUME 104 fL (80-96); MONOCYTES # (AUTO) 1.5 /CMM (0.1-1.30); MONOCYTES % (AUTO) 8.5 % (2.0-12.0); NEUTROPHILS # (AUTO) 13.1 /CMM (1.8-8.9); NEUTROPHILS % (AUTO) 75.1 % (43.0-81.0); PLATELET COUNT (AUTO) 256 /CMM (150-450); WHITE BLOOD COUNT (AUTO) 17.4 K/uL (4.3-11.0)
[2020-02-17 07:03] LABS: CALCIUM, SERUM 9.6 mg/dL (8.5-10.1); CREATININE 6.4 mg/dL (0.6-1.3); POTASSIUM 3.6 mmol/L (3.5-5.1)
--- NOTE | 2020-02-17 07:49 | NUR ---
rn notes patient received on a ventilator, obtunded, GT nephro running for 18 hours a day. Patient was in and out cath last night with no urine output. Bed at the lowest setting, call light within reach, side rails up x2.
[2020-02-17] MEDS: ASCORBIC ACID 500 MG TABLET GT SCH (08:58)
[2020-02-17] MEDS: DOCUSATE SODIUM LIQ 100 MG/10 ML UDC GT SCH ×2 (08:58→16:41)
[2020-02-17] MEDS: ACIDOPHILUS/BULGARICUS 1 EACH TAB.CHEW GT SCH ×2 (08:58→21:05)
[2020-02-17] MEDS: HYDROCORTISONE SOD SUCCINATE 100 MG/2 ML VIAL IV SCH (08:58)
[2020-02-17] MEDS: PANTOPRAZOLE 40 MG/PACK PACK GT SCH (08:58)
[2020-02-17] MEDS: PROSOURCE / PROSTAT (PYXIS) 30 ML UDC GT SCH ×3 (08:59→16:41)
[2020-02-17] MEDS: THERAHONEY GEL 1.5 OZ TUBE TP SCH (08:59)
[2020-02-17] MEDS: SILVER SULFADIAZINE 50 GM JAR TP SCH (08:59)
[2020-02-17] MEDS: DAKINS QUARTER STRENGTH (0.125%) 480 ML BOTTLE TOP SCH (08:59)
[2020-02-17] MEDS: HEPARIN SODIUM, PORCINE 5000 UNITS/1 ML VIAL SQ SCH ×2 (09:00→21:08)
[2020-02-17] MEDS: methylPREDNISolone (4MG) 4 MG TABLET GT SCH (09:06)
[2020-02-17 12:23] LABS: GENTAMICIN,RANDOM 1.4 ug/ml (4.0-8.0)
[2020-02-17] MEDS ORDERED: AMIKACIN 350 MG in IV D5W 100 ML IV ONE (18:00)
[2020-02-17] MEDS ORDERED: DOSING PER PHARMACY-AMIKACI IV XX PRN (18:00)
[2020-02-17] MEDS ORDERED: AMIKACIN 350 MG in IV D5W 100 ML IV PRN (18:00)
[2020-02-17] MEDS: FLUCONAZOLE (100 MG) 100 MG TABLET PO SCH (18:44)
--- NOTE | 2020-02-17 18:56 | NUR ---
rn notes patient remains on a ventilator, obtunded, GT nephro running for 18 hours a day. Patient was in and out cath last night with no urine output. Bed at the lowest setting, call light within reach, side rails up x2.
[2020-02-17] MEDS: VIT B CMPLX 3/FA/VIT C/BIOTIN 1 TAB TABLET GT SCH (21:05)
--- NOTE | 2020-02-17 21:48 | NUR ---
NO GT RESIDUAL NOTED. DRESSING ON THE GT SITE CLEAN DRY AND INTACT, SKIN IS WNL.HOB ELEVATED AT ALL TIMES. GT FLUSHED WITH WATER.
--- NOTE | 2020-02-17 23:55 | NUR ---
BLOOD SUGAR CHECKED= 110. NO INSULIN GIVEN. GT FEEDING STOPPED AT 2200 TONIGHT.
[2020-02-18] VITALS: BP 114/82
--- NOTE | 2020-02-18 02:45 | NUR ---
GT SITE DRESSING CHANGED, NO EXUDATE NOTED, NO SKIN IRRITATION. HOB ELEVATED AT ALL TIMES.
[2020-02-18] MEDS: NEPRO 1,000 ML BOTTLE GT SCH (03:50)
--- NOTE | 2020-02-18 03:55 | NUR ---
GT FEEDING NEPRO STARTED AT 60ML/HOUR. HOB ELEVATED AT ALL TIMES.
[2020-02-18 04:00] VITALS: BP_SYST 123; BP_SYST 128; BP_DIAS 85
[2020-02-18] MEDS: BLOOD SUGAR DIAGNOSTIC 1 EACH STRIP IN SCH ×4 (06:00→23:08)
--- NOTE | 2020-02-18 06:21 | NUR ---
ALUMINIZER NOTES: PATIENT IN BED, AWAKE, OBTUNDED,NO SOB NOTED. NOT IN PAIN. WITH GT FEEDING AT 60ML/HOUR. HOB ELEVATED AT ALL TIMES. BED IN LOWEST AND LOCKED POSITION. BLOOD SUGAR THIS MORNING IS 95, NO INSULIN GIVEN.
[2020-02-18] MEDS: IPRATROPIUM BROMIDE 14 GM INHALER (or 12.9 GM) IH SCH ×3 (07:31→17:09)
[2020-02-18] MEDS: ALBUTEROL SULFATE 8 GM HFA.AER.AD IH SCH ×3 (07:31→17:08)
[2020-02-18 08:12] VITALS: BP 123/80
[2020-02-18 08:42] LABS: BASOPHILS % (AUTO) 0.2 % (0.0-2.0); EOSINOPHILS % (AUTO) 0.7 % (0.0-6.0); HEMATOCRIT 29 % (39-51); HEMOGLOBIN 9.1 g/dL (13.5-17.5); LYMPHOCYTES # (AUTO) 1.6 /CMM (0.8-4.8); LYMPHOCYTES % (AUTO) 9.2 % (20.0-44.0); MEAN CORPUSCULAR HGB CONC 31 g/dl (31.0-36.0); MEAN CORPUSCULAR VOLUME 104 fL (80-96); MONOCYTES # (AUTO) 1.4 /CMM (0.1-1.30); MONOCYTES % (AUTO) 8.2 % (2.0-12.0); NEUTROPHILS # (AUTO) 14.5 /CMM (1.8-8.9); NEUTROPHILS % (AUTO) 81.7 % (43.0-81.0); PLATELET COUNT (AUTO) 249 /CMM (150-450); RED BLOOD CELL COUNT(AUTO) 2.82 MIL/uL (4.5-6.0); WHITE BLOOD COUNT (AUTO) 17.7 K/uL (4.3-11.0)
[2020-02-18 09:27] LABS: CALCIUM, SERUM 9.5 mg/dL (8.5-10.1)
[2020-02-18] MEDS: DOCUSATE SODIUM LIQ 100 MG/10 ML UDC GT SCH ×2 (09:31→16:34)
[2020-02-18] MEDS: PANTOPRAZOLE 40 MG/PACK PACK GT SCH (09:33)
[2020-02-18] MEDS: ACIDOPHILUS/BULGARICUS 1 EACH TAB.CHEW GT SCH ×2 (09:33→21:30)
[2020-02-18] MEDS: FLUCONAZOLE (100 MG) 100 MG TABLET PO SCH (09:33)
[2020-02-18] MEDS: ASCORBIC ACID 500 MG TABLET GT SCH (09:33)
[2020-02-18] MEDS: HYDROCORTISONE SOD SUCCINATE 100 MG/2 ML VIAL IV SCH (09:33)
[2020-02-18] MEDS: HEPARIN SODIUM, PORCINE 5000 UNITS/1 ML VIAL SQ SCH ×2 (09:34→21:29)
[2020-02-18] MEDS: SILVER SULFADIAZINE 50 GM JAR TP SCH (09:34)
[2020-02-18] MEDS: DAKINS QUARTER STRENGTH (0.125%) 480 ML BOTTLE TOP SCH (09:34)
[2020-02-18] MEDS: methylPREDNISolone (4MG) 4 MG TABLET GT SCH (09:47)
[2020-02-18] MEDS: PROSOURCE / PROSTAT (PYXIS) 30 ML UDC GT SCH ×3 (09:47→16:34)
[2020-02-18] MEDS: THERAHONEY GEL 1.5 OZ TUBE TP SCH (09:57)
[2020-02-18] MEDS: VANCOMYCIN 500 MG in IV D5W 100 ML IV PRN (14:13)
[2020-02-18 16:48] VITALS: BP_SYST 91; BP_SYST 94; BP_DIAS 59; BP_DIAS 62
--- NOTE | 2020-02-18 18:01 | NUR ---
rn notes patient remains on a ventilator, a/o x0 and is obtunded. no sob noted, tolerating the ventilator well. Incontinent, anuric at this time, US bladder was done earlier, zero urine residuals. Addendum: 02/18/20 at 1811 by YAMILKA REAGAN RN patient remains on a ventilator, a/o x0 and is obtunded. no sob noted, tolerating the ventilator well. Incontinent, anuric at this time, US bladder was done earlier, zero urine residuals. Remains on 2L nasal cannula. Blood culture 2 sets pending at this time. bed at the lowest setting, call light within reach, side rails up x2
[2020-02-18 20:00] VITALS: BP 128/65
--- NOTE | 2020-02-18 20:00 | NUR ---
TELE/TN OPENING NOTES RECEIVED PATIENT IN BED, OBTUNDED, NON VERBAL ON MECHANICAL VENT WITH PRESCRIBED SETTING, RT WAS AT BEDSIDE, PATIENT CAN OPEN EYES. SKIN WARM TO KAMRAN. PATIENT WITH MULTIPLE WOUNDS CH, WITH NO URINE, HAD DIALYSIS TODAY REPORTED BY AM RN ON TUBE FEEDING TO END AT 2200 AND START AT 0400, TO CONTINUE CARE, BED LOCKED, MONITORED FOR ANY CHANGES, IV SITE IN RFA GAUGE 22, WITH HD CATHETER/.
[2020-02-18 20:06] VITALS: BP 107/69
[2020-02-18] MEDS: VIT B CMPLX 3/FA/VIT C/BIOTIN 1 TAB TABLET GT SCH (21:30)
[2020-02-19] VITALS (7 sets, daily range): BP systolic 103–138; BP diastolic 70–79
[2020-02-19] MEDS: ALBUTEROL SULFATE 8 GM HFA.AER.AD IH SCH ×5 (00:57→23:45)
[2020-02-19] MEDS: IPRATROPIUM BROMIDE 14 GM INHALER (or 12.9 GM) IH SCH ×5 (00:57→23:46)
[2020-02-19] MEDS: NEPRO 1,000 ML BOTTLE GT SCH (03:20)
--- NOTE | 2020-02-19 03:55 | NUR ---
TELE/RN NOTES PATIENT GTUBE FEEDING STARTED ORDERED WITH NEPHRO AT 60ML, PATENTCY CHECKED. IV SITE PATENT,OFF LOAD EXTREMITIES.
[2020-02-19] MEDS: BLOOD SUGAR DIAGNOSTIC 1 EACH STRIP IN SCH ×3 (05:04→17:38)
--- NOTE | 2020-02-19 05:10 | NUR ---
BLOOD SUGAR CHECK AT 109.
[2020-02-19 06:20] LABS: CALCIUM, SERUM 9.3 mg/dL (8.5-10.1); CREATININE 5.9 mg/dL (0.6-1.3)
[2020-02-19 06:44] LABS: BASOPHILS % (AUTO) 0.1 % (0.0-2.0); EOSINOPHILS % (AUTO) 1.7 % (0.0-6.0); HEMATOCRIT 29 % (39-51); HEMOGLOBIN 8.6 g/dL (13.5-17.5); LYMPHOCYTES # (AUTO) 1.2 /CMM (0.8-4.8); LYMPHOCYTES % (AUTO) 8.6 % (20.0-44.0); MEAN CORPUSCULAR HGB CONC 30 g/dl (31.0-36.0); MEAN CORPUSCULAR VOLUME 110 fL (80-96); MONOCYTES # (AUTO) 1.2 /CMM (0.1-1.30); MONOCYTES % (AUTO) 8.8 % (2.0-12.0); NEUTROPHILS # (AUTO) 10.9 /CMM (1.8-8.9); NEUTROPHILS % (AUTO) 80.8 % (43.0-81.0); PLATELET COUNT (AUTO) 142 /CMM (150-450); RED BLOOD CELL COUNT(AUTO) 2.63 MIL/uL (4.5-6.0); WHITE BLOOD COUNT (AUTO) 13.4 K/uL (4.3-11.0)
--- NOTE | 2020-02-19 07:24 | NUR ---
307-1 TELE/RN NOTES ON SR, OBTUNDED AND NO VERBAL, WITH PRESCRIBED VENT SETTING, GTUBEPATENT, IV SITE ON LEFT HAND PATENT, TUBE FEEDING STARTED AT 4AM, MONITORED HYPO/HYPERGLYCEMIA IN AM, REPOSITIONED AND TURNED, ROUTINE BREATHING TX PROVIDED BY RT. WILL ENDORSE TO AM RN FOR DENNIS, BED LOCKED,
--- NOTE | 2020-02-19 07:30 | NUR ---
FRICTION PAINT MACHINE TENDER NOTES PT IN BED, RESTING, NO SIGN OF PAIN OR DISTRESS, NO FACIAL GRIMACING, GT FEEDING INFUSING WELL, KEPT COMFORTABLE AND ACADEMIC REGISTRAR BED, REPOSITIONED FOR COMFORT.
[2020-02-19] MEDS: HEPARIN SODIUM, PORCINE 5000 UNITS/1 ML VIAL SQ SCH (09:00)
[2020-02-19] MEDS: DOCUSATE SODIUM LIQ 100 MG/10 ML UDC GT SCH ×2 (09:04→16:42)
[2020-02-19] MEDS: HYDROCORTISONE SOD SUCCINATE 100 MG/2 ML VIAL IV SCH (09:06)
[2020-02-19] MEDS: PANTOPRAZOLE 40 MG/PACK PACK GT SCH (09:06)
[2020-02-19] MEDS: ASCORBIC ACID 500 MG TABLET GT SCH (09:06)
[2020-02-19] MEDS: FLUCONAZOLE (100 MG) 100 MG TABLET PO SCH (09:06)
[2020-02-19] MEDS: ACIDOPHILUS/BULGARICUS 1 EACH TAB.CHEW GT SCH ×2 (09:06→21:36)
[2020-02-19] MEDS: SILVER SULFADIAZINE 50 GM JAR TP SCH (09:08)
[2020-02-19] MEDS: THERAHONEY GEL 1.5 OZ TUBE TP SCH (09:08)
[2020-02-19] MEDS: methylPREDNISolone (4MG) 4 MG TABLET GT SCH (09:17)
[2020-02-19] MEDS: PROSOURCE / PROSTAT (PYXIS) 30 ML UDC GT SCH ×3 (09:18→16:42)
[2020-02-19] MEDS: DAKINS QUARTER STRENGTH (0.125%) 480 ML BOTTLE TOP SCH (11:45)
[2020-02-19] MEDS: INSULIN REGULAR, HUMAN 100 UNIT/ML 3 ML VIAL SQ PRN (17:37)
--- NOTE | 2020-02-19 18:10 | NUR ---
HOT CAR OPERATOR NOTES PT IN BED, RESTING, NON VERBAL, NO SIGN OF PAIN OR DISTRESS, PM MEDS GIVEN ORDERED, PM CARE PROVIDED, TURNED AND REPOSITIONED Q2 HOURS, WOUND TREATMENT DONE, ALL NEEDS ATTENDED.
--- NOTE | 2020-02-19 19:35 | NUR ---
TELERN AWAKE, VENT DEPENDENT, NO RESPIRATORY DISTRESS. STABLE FOR OW. GT FEEDINGS TOLERATED NO RESIDUALS. POSITIONED FOR COMFORT
[2020-02-19] MEDS: VIT B CMPLX 3/FA/VIT C/BIOTIN 1 TAB TABLET GT SCH (21:36)
--- NOTE | 2020-02-19 22:45 | NUR ---
HYDROELECTRIC POWERPLANT SUPERVISOR REMAINS SR ON THE MONITOR. BEDBATHED , ANURIC, SMEARS STOOLS ONLY. REPOSITIONED, KEPT DRY CLEAN AND COMFORTABLE. V/S STABLE. FEEDINGS COMPLETED TO BE RESTARTED ROCK AM. DUE MEDS ADMINISTERED.
[2020-02-20] VITALS (9 sets, daily range): BP systolic 112–125; BP diastolic 74–83
--- NOTE | 2020-02-20 07:00 | NUR ---
TELERN REMAINS SR ON THE MONITOR, FEEDINGS TOLERATED, NO RESIDUALS. POSTIONED FOR COMFORT.
[2020-02-20] MEDS: BLOOD SUGAR DIAGNOSTIC 1 EACH STRIP IN SCH ×5 (07:19→23:14)
--- NOTE | 2020-02-20 07:30 | NUR ---
LATHE TURNER NOTES PT IN BED, AWAKE, NON VERBAL, NO SIGN OF PAIN OR DISTRESS, ON VENT/TRACH, GT FEEDING INFUSING WELL, TOLERATING WELL, REPOSITIONED FOR COMFORT, KEPT WARM AND COMFORTABLE IN BED.
[2020-02-20] MEDS: IPRATROPIUM BROMIDE 14 GM INHALER (or 12.9 GM) IH SCH ×3 (07:45→19:42)
[2020-02-20] MEDS: ALBUTEROL SULFATE 8 GM HFA.AER.AD IH SCH ×3 (07:46→19:42)
[2020-02-20] MEDS: ACIDOPHILUS/BULGARICUS 1 EACH TAB.CHEW GT SCH ×2 (08:11→21:03)
[2020-02-20] MEDS: ASCORBIC ACID 500 MG TABLET GT SCH (08:11)
[2020-02-20] MEDS: FLUCONAZOLE (100 MG) 100 MG TABLET PO SCH (08:11)
[2020-02-20] MEDS: DOCUSATE SODIUM LIQ 100 MG/10 ML UDC GT SCH ×2 (08:11→17:08)
[2020-02-20] MEDS: PANTOPRAZOLE 40 MG/PACK PACK GT SCH (08:11)
[2020-02-20] MEDS: PROSOURCE / PROSTAT (PYXIS) 30 ML UDC GT SCH ×3 (08:17→17:08)
[2020-02-20] MEDS: methylPREDNISolone (4MG) 4 MG TABLET GT SCH (08:17)
[2020-02-20] MEDS: SILVER SULFADIAZINE 50 GM JAR TP SCH (08:27)
[2020-02-20] MEDS: THERAHONEY GEL 1.5 OZ TUBE TP SCH (08:27)
[2020-02-20] MEDS: DAKINS QUARTER STRENGTH (0.125%) 480 ML BOTTLE TOP SCH (08:27)
--- NOTE | 2020-02-20 08:45 | NUR ---
PRESSURE DISPATCHER NOTES PT SEEN AND EXAMINED BY DR. GORDON.
[2020-02-20 09:08] LABS: BASOPHILS # (AUTO) 0.1 /CMM (0.0-0.2); BASOPHILS % (AUTO) 0.6 % (0.0-2.0); EOSINOPHILS % (AUTO) 1.4 % (0.0-6.0); HEMATOCRIT 29 % (39-51); HEMOGLOBIN 8.8 g/dL (13.5-17.5); LYMPHOCYTES # (AUTO) 1.3 /CMM (0.8-4.8); LYMPHOCYTES % (AUTO) 9.4 % (20.0-44.0); MEAN CORPUSCULAR HGB CONC 31 g/dl (31.0-36.0); MEAN CORPUSCULAR VOLUME 105 fL (80-96); MONOCYTES # (AUTO) 1.3 /CMM (0.1-1.30); MONOCYTES % (AUTO) 9.7 % (2.0-12.0); NEUTROPHILS # (AUTO) 10.6 /CMM (1.8-8.9); NEUTROPHILS % (AUTO) 78.9 % (43.0-81.0); PLATELET COUNT (AUTO) 212 /CMM (150-450); RED BLOOD CELL COUNT(AUTO) 2.75 MIL/uL (4.5-6.0); WHITE BLOOD COUNT (AUTO) 13.4 K/uL (4.3-11.0)
[2020-02-20 09:14] LABS: CALCIUM, SERUM 9.6 mg/dL (8.5-10.1); CREATININE 7.4 mg/dL (0.6-1.3); POTASSIUM 4.4 mmol/L (3.5-5.1)
[2020-02-20] MEDS: ACETAMINOPHEN 325 MG TABLET PO PRN (12:31)
--- NOTE | 2020-02-20 13:48 | NUR ---
DIGITAL RECRUITER NOTES PT IN BED, NO SIGN OF PAIN OR DISTRESS, GT FEEDING INFUSING WELL, PT WITH ONGOING DIALYSIS.
[2020-02-20] MEDS: VANCOMYCIN 500 MG in IV D5W 100 ML IV PRN (15:40)
--- NOTE | 2020-02-20 18:19 | NUR ---
MANAGER SUPPORT NOTES PT IN BED, ASLEEP, EASY TO AROUSE, NON VERBAL, NO FACIAL GRIMACING OR MOANING, RESPIRATIONS NORMAL, GT FEEDING INFUSING WELL, TOLERATING WELL, PM MEDS GIVEN ORDERED, PM CARE PROVIDED, REPOSITIONED FOR COMFORT, KEPT CLEAN AND DRY.
--- NOTE | 2020-02-20 19:30 | NUR ---
COMPUTER TECHNICAL SPECIALIST OPEN NOTES PATIENT IS LAYING IN BED. OBTUNDED. [facility] TOL[facility]. NO SOB/ ACUTE RESPIRATORY DISTRESS NOTED. RECEIVING TUBE FEEDING @ 60MLS/HR. BED IS IN LOWEST LOCKED POSITION WITH SIDE RAILS UP X3, SEMI FOWLERS. CALL LIGHT IS WITHIN REACH. WILL CONTINUE TO MONITOR.
[2020-02-20] MEDS: NEPRO 1,000 ML BOTTLE GT SCH (21:03)
[2020-02-20] MEDS: VIT B CMPLX 3/FA/VIT C/BIOTIN 1 TAB TABLET GT SCH (21:03)
[2020-02-21] VITALS: BP 121/80
[2020-02-21] MEDS: ALBUTEROL SULFATE 8 GM HFA.AER.AD IH SCH ×3 (00:01→11:46)
[2020-02-21] MEDS: IPRATROPIUM BROMIDE 14 GM INHALER (or 12.9 GM) IH SCH ×3 (00:01→11:46)
[2020-02-21 04:00] VITALS: BP 125/79
[2020-02-21] MEDS: BLOOD SUGAR DIAGNOSTIC 1 EACH STRIP IN SCH ×3 (05:50→17:37)
--- NOTE | 2020-02-21 06:22 | NUR ---
COACH DRIVER CLOSE NOTES PATIENT IS LAYING IN BED. OBTUNDED, ABLE TO OPEN EYES. [facility] V[facility] TOLERATING WELL. NO SOB/ ACUTE RESPIRATORY DISTRESS NOTED. G TUBE IN PLACE, RECEIVING NEPRO @ 60MLS/HR TOLERATING WELL. IV IN LEFT HAND #22G IS PATENT AND INTACT. APPEARS COMFORTABLE/ SHOWS NO SIGNS OF PAIN. BED IS IN LOWEST LOCKED POSITION WITH SIDE RAILS UP X3, SEMI FOWLERS. CALL LIGHT IS WITHIN REACH. WILL ENDORSE TO AM NURSE.
[2020-02-21 06:25] LABS: BASOPHILS # (AUTO) 0.1 /CMM (0.0-0.2); BASOPHILS % (AUTO) 0.5 % (0.0-2.0); EOSINOPHILS % (AUTO) 2.1 % (0.0-6.0); HEMATOCRIT 29 % (39-51); HEMOGLOBIN 8.8 g/dL (13.5-17.5); LYMPHOCYTES # (AUTO) 1.3 /CMM (0.8-4.8); LYMPHOCYTES % (AUTO) 9.3 % (20.0-44.0); MEAN CORPUSCULAR HGB CONC 31 g/dl (31.0-36.0); MEAN CORPUSCULAR VOLUME 106 fL (80-96); MONOCYTES # (AUTO) 1.4 /CMM (0.1-1.30); MONOCYTES % (AUTO) 10.5 % (2.0-12.0); NEUTROPHILS # (AUTO) 10.7 /CMM (1.8-8.9); NEUTROPHILS % (AUTO) 77.6 % (43.0-81.0); PLATELET COUNT (AUTO) 181 /CMM (150-450); WHITE BLOOD COUNT (AUTO) 13.7 K/uL (4.3-11.0)
[2020-02-21 06:53] LABS: CALCIUM, SERUM 9.3 mg/dL (8.5-10.1); CREATININE 5.9 mg/dL (0.6-1.3); POTASSIUM 4.7 mmol/L (3.5-5.1)
--- NOTE | 2020-02-21 07:31 | NUR ---
CLERICAL PROOFREADER OPENING NOTE PATIENT IN BED RESTING COMFORTABLY. PATIENT ON VENT, TOLERATING VENT SETTINGS WELL. PATIENT IN NO ACUTE DISTRESS. NO SOB NOTED. PATIENT BREATHING IS EVEN AND UNLABORED. PATIENT ON CARDIAC MONITORING READING SINUS TACHYCARDIA HR 102. SAFETY PRECAUTIONS IN PLACE. BED ALARM IS ON. HOB IS ELEVATED. PATIENT BED IS LOCKED AND IN LOWEST POSITION. CALL LIGHT WITHIN REACH. WILL CONTINUE TO MONITOR.
[2020-02-21 08:10] VITALS: BP 125/75
[2020-02-21] MEDS: DAKINS QUARTER STRENGTH (0.125%) 480 ML BOTTLE TOP SCH (08:56)
[2020-02-21] MEDS: THERAHONEY GEL 1.5 OZ TUBE TP SCH (08:56)
[2020-02-21] MEDS: SILVER SULFADIAZINE 50 GM JAR TP SCH (08:56)
[2020-02-21] MEDS: PROSOURCE / PROSTAT (PYXIS) 30 ML UDC GT SCH ×3 (08:58→16:55)
[2020-02-21] MEDS: DOCUSATE SODIUM LIQ 100 MG/10 ML UDC GT SCH ×2 (09:00→16:55)
[2020-02-21] MEDS: PANTOPRAZOLE 40 MG/PACK PACK GT SCH (09:00)
[2020-02-21] MEDS: ACIDOPHILUS/BULGARICUS 1 EACH TAB.CHEW GT SCH (09:02)
[2020-02-21] MEDS: FLUCONAZOLE (100 MG) 100 MG TABLET PO SCH (09:02)
[2020-02-21] MEDS: ASCORBIC ACID 500 MG TABLET GT SCH (09:02)
[2020-02-21] MEDS: methylPREDNISolone (4MG) 4 MG TABLET GT SCH (09:03)
--- NOTE | 2020-02-21 12:00 | NUR ---
MS RN NOTE PATIENT BLOOD SUGAR IS 122. NO INSULIN COVERAGE NEEDED PER PROTOCOL.
[2020-02-21 16:00] VITALS: BP 112/77
--- NOTE | 2020-02-21 17:38 | NUR ---
MS RN NOTE PATIENT BLOOD SUGAR IS 96. NO INSULIN COVERAGE NEEDED PER PROTOCOL.
--- NOTE | 2020-02-21 18:55 | NUR ---
NATURAL RESOURCES INSTRUCTOR NOTE PATIENT MEDICALLY STABLE FOR DISCHARGE. PATIENT ON VENT, TOLERATING VENT SETTINGS WELL. PATIENT IN NO ACUTE DISTRESS. NO SOB NOTED. PATIENT BREATHING IS EVEN AND UNLABORED. DC INSTRUCTIONS PROVIDED, PATIENT UNABLE TO COMPREHEND. TWO NURSES SIGNED DC PAPERWORK AND BELONGINGS LIST SIGNED. PATIENT ID BAND REMOVED. PATIENT KEPT CLEAN, DRY, AND COMFORTABLE THROUGHOUT SHIFT. WOUND CARE PROVIDED ORDERED. PATIENT TURNED AND REPOSITIONED Q2H. GTUBE PATENT AND INTACT. ID BAND REMOVED. REPORT GIVE TO [place] FORREST AT [facility]. PATIENT GOING WITH AMBULANCE ALS WITH 2 LINK TRAINER MAINTENANCE MAN AND RT. MD AWARE OF DISCHARGE.
--- NOTE | 2020-02-21 19:16 | NUR ---
HIGH SCHOOL BAND DIRECTOR NOTE PATIENT MEDICALLY STABLE FOR DISCHARGE. PATIENT ON VENT, TOLERATING VENT SETTINGS WELL. PATIENT IN NO ACUTE DISTRESS. NO SOB NOTED. PATIENT BREATHING IS EVEN AND UNLABORED. DC INSTRUCTIONS PROVIDED, PATIENT UNABLE TO COMPREHEND. TWO NURSES SIGNED DC PAPERWORK AND BELONGINGS LIST. PATIENT ID BAND REMOVED. PATIENT KEPT CLEAN, DRY, AND COMFORTABLE THROUGHOUT SHIFT. WOUND CARE PROVIDED ORDERED. PATIENT TURNED AND REPOSITIONED Q2H. GTUBE PATENT AND INTACT. REPORT GIVE TO [place] FORREST AT [facility]. PATIENT GOING WITH AMBULANCE ALS WITH 2 HIDE SORTER AND RT. MD AWARE OF DISCHARGE.
== END 2020-02-21 18:35 | DRG 711 ==
LOC: ER 14:25 → TELE1 16:54 → TELE 02-14 15:56
PROVIDERS: ADMIT Internal Medicine; ATTEND Internal Medicine
PROC: 5A1955Z Respiratory Ventilation, Greater than 96 Consecutive Hours (ICD-10-PCS; principal; 2020-02-12)
PROC: 0LBV0ZZ Excision of Right Foot Tendon, Open Approach (ICD-10-PCS; 2020-02-15)
PROC: 0JBQ0ZZ Excision of Right Foot Subcutaneous Tissue and Fascia, Open Approach (ICD-10-PCS; 2020-02-15)
PROC: 0JBR0ZZ Excision of Left Foot Subcutaneous Tissue and Fascia, Open Approach (ICD-10-PCS; 2020-02-15)
PROC: 0QB10ZZ Excision of Sacrum, Open Approach (ICD-10-PCS; 2020-02-15)
PROC: 0KBQ0ZZ Excision of Right Upper Leg Muscle, Open Approach (ICD-10-PCS; 2020-02-15)
PROC: 0JB90ZZ Excision of Buttock Subcutaneous Tissue and Fascia, Open Approach (ICD-10-PCS; 2020-02-15)
DX: T80.211A Bloodstream infection due to central venous catheter, initial encounter (principal); A41.9 Sepsis, unspecified organism; I12.0 Hypertensive chronic kidney disease with stage 5 chronic kidney disease or end stage renal disease; G93.41 Metabolic encephalopathy; E86.1 Hypovolemia; E11.22 Type 2 diabetes mellitus with diabetic chronic kidney disease; N18.6 End stage renal disease; R65.21 Severe sepsis with septic shock; Z99.11 Dependence on respirator [ventilator] status; Z99.2 Dependence on renal dialysis; Z87.820 Personal history of traumatic brain injury; Z79.4 Long term (current) use of insulin; K21.9 Gastro-esophageal reflux disease without esophagitis; E11.51 Type 2 diabetes mellitus with diabetic peripheral angiopathy without gangrene; E11.621 Type 2 diabetes mellitus with foot ulcer; R13.10 Dysphagia, unspecified; Z93.0 Tracheostomy status; Z93.1 Gastrostomy status; I69.354 Hemiplegia and hemiparesis following cerebral infarction affecting left non-dominant side; Z79.51 Long term (current) use of inhaled steroids; Z79.899 Other long term (current) drug therapy; J96.10 Chronic respiratory failure, unspecified whether with hypoxia or hypercapnia; Z74.01 Bed confinement status; L97.519 Non-pressure chronic ulcer of other part of right foot with unspecified severity; G93.1 Anoxic brain damage, not elsewhere classified; D68.59 Other primary thrombophilia; D64.9 Anemia, unspecified; E83.52 Hypercalcemia; N48.5 Ulcer of penis; M62.40 Contracture of muscle, unspecified site; F09 Unspecified mental disorder due to known physiological condition; Z74.09 Other reduced mobility; L97.429 Non-pressure chronic ulcer of left heel and midfoot with unspecified severity; L97.419 Non-pressure chronic ulcer of right heel and midfoot with unspecified severity; L89.324 Pressure ulcer of left buttock, stage 4; L89.314 Pressure ulcer of right buttock, stage 4; L89.154 Pressure ulcer of sacral region, stage 4; M62.422 Contracture of muscle, left upper arm; M62.421 Contracture of muscle, right upper arm
CPT/HCPCS: 31720; 36415; 71045-TC; 76856-TC; 80048-TC; 80053-TC; 80061-TC; 80076-TC; 80150; 80170-TC; 80202-TC; 82962-TC; 83605-TC; 83735-TC; 84100-TC; 84484-TC; 85025-TC; 87040-TC; 87081-TC; 90935-TC; 94002-TC; 94003-TC; 94640; 94760-TC; 94762-TC; 94799-TC; 99082-TC; A4623; A6253; A6403; A6407; G0378; J0278; J1580; J1644; J1720; J1815; J2543; J3370; J7030; J7040; J7060; J7509; U0003-CS

== ENCOUNTER 2020-05-13 13:03 | Inpatient (IN) | payer MEDICAID ==
[~2020-05-13] VITALS: Ht 170.2 cm; Wt 69.4 kg
[2020-05-13] VITALS (7 sets, daily range): BP systolic 102–123; BP diastolic 57–87
--- NOTE | 2020-05-13 13:20 | NUR ---
JONATHAN, SENT BY PMD FOR RIGHT FOOT EVALUATION, POSSIBLE AMPUTATION. VS CHECKED. RT BY BEDSIDE. PT ON [facility] VENT.
--- NOTE | 2020-05-13 14:08 | NUR ---
RT RECD PT VIA TRANSPORT FOR INFECTED WOUND POSSIBLE SEPSIS TRACHED WITH PORTEX 8 INTACT SECURED ON MECH VENT AC 14 500 +0 40% SX THICK PINK TINGLE YELLOW SECRETIONS BAG MASK AND SPARE TRACH AT HOB NO SOB WILL CONT TO MONITOR Addendum: 05/13/20 at 1413 by SIENA GARRETT RT Amended: Links added.
[2020-05-13] MEDS ORDERED: PIPERACILLIN /TAZOBACTAM 3.375 G in IV D5W 50 ML IV ONE (14:30)
[2020-05-13] MEDS ORDERED: VANCOMYCIN 1 GM in IV D5W 250 ML IV ONE (14:30)
[2020-05-13] MEDS ORDERED: IV NS 0.9% 1,000 ML BAG IV ONE (14:30)
[2020-05-13] MEDS ORDERED: CALC667C6 GT (14:46)
[2020-05-13] MEDS ORDERED: VANC1VIA4 IV (14:46)
[2020-05-13 14:47] LABS: BASOPHILS # (AUTO) 0.1 /CMM (0.0-0.2); BASOPHILS % (AUTO) 0.9 % (0.0-2.0); EOSINOPHILS % (AUTO) 1.1 % (0.0-6.0); HEMATOCRIT 38 % (39-51); HEMOGLOBIN 12.4 g/dL (13.5-17.5); LYMPHOCYTES % (AUTO) 7.3 % (20.0-44.0); MEAN CORPUSCULAR HGB CONC 33 g/dl (31.0-36.0); MEAN CORPUSCULAR VOLUME 98 fL (80-96); MONOCYTES % (AUTO) 7.4 % (2.0-12.0); NEUTROPHILS % (AUTO) 83.3 % (43.0-81.0); PLATELET COUNT (AUTO) 203 /CMM (150-450); RED BLOOD CELL COUNT(AUTO) 3.89 MIL/uL (4.5-6.0); WHITE BLOOD COUNT (AUTO) 13.2 K/uL (4.3-11.0)
--- NOTE | 2020-05-13 15:00 | NUR ---
COVID SWAB DONE SENT TO LAB
[2020-05-13 15:16] LABS: CALCIUM, SERUM 9.5 mg/dL (8.5-10.1); CARBON DIOXIDE 22 mmol/L (21-32); CHLORIDE 94 mmol/L (98-107); CREATININE 6.6 mg/dL (0.6-1.3); GLUCOSE 99 mg/dL (74-106); POTASSIUM 3.8 mmol/L (3.5-5.1); SODIUM SERUM 130 mmol/L (136-145); UREA NITROGEN, BLOOD 71 mg/dL (7-18)
[2020-05-13 15:23] LABS: ALANINE AMINOTRANSFERASE 56 U/L (12-78); ALBUMIN 2.7 g/dL (3.4-5.0); ALKALINE PHOSPHATASE 198 U/L (46-116); ASPARTATE AMINOTRANSFERASE 29 U/L (15-37); BILIRUBIN,DIRECT 0.1 mg/dL (0.0-0.2); BILIRUBIN,TOTAL 0.4 mg/dL (0.2-1.0)
--- NOTE | 2020-05-13 15:49 | NUR ---
CALLED DR. ALICEA
--- NOTE | 2020-05-13 16:30 | NUR ---
REPORT GIVEN TO NICKOLAS FORREST AT ICU
--- NOTE | 2020-05-13 16:45 | NUR ---
PT TRASNFERRED TO ICU IN STABLE CONDITION.
--- NOTE | 2020-05-13 17:00 | NUR ---
ICU/RN PT ADMITTED FROM ER.CHRONIC TRACH ON THE VENT AC MODE.FIO2-40%.SAT O2-100%.V/S STABLE,AFEBRILE.NO PAIN REPORTED AT THIS TIME.LEFT FA IV HL. LEFT CHEST HD CATH.ANURIC ON HD.PT IS POST CVA .LEFT SIDE WEAKNESS.CONTRACTED .G-TUBE CLAMPED.MULTIPLY WOUNDS NOTED ALL OVER THE BODY.PHOTO TAKEN WOUND DRESSING DONE ,WOUND CONSULT ORDERED.[facility]RASS ORDERED.SUCTION PROVIDED.PT HAS PINK SECRETION.REPOSITION FOR COMFORT.CONTINUE MONITORING.
[2020-05-13] MEDS: BLOOD SUGAR DIAGNOSTIC 1 EACH STRIP IN SCH ×2 (17:52→23:19)
[2020-05-13] MEDS ORDERED: INSULIN REGULAR, HUMAN 100 UNIT/ML 3 ML VIAL SQ PRN (18:00)
[2020-05-13] MEDS ORDERED: DEXTROSE 50%-WATER 50 ML DISP.SYRIN IV PRN (18:00)
--- NOTE | 2020-05-13 18:30 | NUR ---
ICU/RN BS-69. MD NOTIFIED.G TUBE FEEDING ORDERED.
--- NOTE | 2020-05-13 19:56 | NUR ---
RT received pt on current vent settings. trached, portex 8. vent plugged in to red outlet. ambu bag at [facility]. alarms on and audible. no sob, no resp distress. small thin pink tinged secrections suctioned via trach. will continue to monitor pt.
[2020-05-13] MEDS: NEPRO 1,000 ML BOTTLE GT PRN (20:00)
--- NOTE | 2020-05-13 20:45 | NUR ---
RN NOTE PT ENDORSED TO PHILIP FORREST FOR DENNIS
--- NOTE | 2020-05-13 22:00 | NUR ---
RN NOTES RECEIVED PATIENT ON BED WITH TRACH PORTEX 8 CONNECTED TO VENT SETTING AC 14 TV 500 FIO2 40% NO PEEP TOLERATED WELL. OPENS EYES ABLE TO FOLLOW COMMAND, PATIENT IS NON VERBAL. NO ACUTE RESPIRATORY DISTRESS. DENIES PAIN. WITH GTF NEPHRO @ 30 ML.HR INTACT AND PATENT WITH NO RESIDUAL. HOB KEPT ELEVATED. IVSITE ON LFA G 18 AND RIGHT FINGER INTACT AND PATENT/ LEFT CHEST HD CATH WITH CLEAN AND DRY DRESSING. MULTIPLE WOUNDS NOTED ON THE BOTH FOOR. PT IS AFEBRILE. TURN AND REPOSITION FOR SKIN SAFETY. KEPT PT CLEAN AND DRY. WILL CONTINUE TO MONITOR.
[2020-05-13] MEDS: Z GUARD REMEDY 2 OZ OINT TP SCH (23:19)
[2020-05-14] VITALS (20 sets, daily range): BP systolic 96–134; BP diastolic 56–76
--- NOTE | 2020-05-14 04:30 | NUR ---
RN NOTES BEDBATH DONE TOLERATED WELL WITH BMX1. TURN AND REPOSITION, WOUND DRESSING CHANGED. PATIENT KEPT CLEAN AND DRY.
[2020-05-14] MEDS: BLOOD SUGAR DIAGNOSTIC 1 EACH STRIP IN SCH ×4 (06:04→23:50)
--- NOTE | 2020-05-14 06:50 | NUR ---
RN NOTES NO SIGNIFICANT CHANGES. TRACH AND VENT SETTING TOLERATED WELL. AFEBRILE. VSS. PATIETN FOLLOWS COMMAND. NO RESPIRATORY DISTRESS. INCONTINENT CARE RENDERED , BEDBATH, TURNING AND REPOSITIONING Q2H AND PRN. KEPT PT CLEAN AND DRY. PATIENT WITH POSS. AMPUTATION PER MD. ENDORSED CONTINUITY OF CARE TO AM NURSE.
--- NOTE | 2020-05-14 07:15 | NUR ---
TYPING SECRETARY NOTES RECEIVED PATIENT OPENS EYES ABLE TO FOLLOW SIMPLE COMMANDS , NOT IN ACUTE DISTRESS ,RESPIRATIONS EVEN AND UNLABORED WITH SPO2 OF 100% VIA MECHANICAL VENTILATOR SETTINGS ORDERED , SR 60 ON BEDSIDE MONITOR , GT PATENT AND INTACT WITH NEPHRO @ 30ML/HR WITH NO RESIDUALS NOTED , LF # 18 PATENT AND INTACT SL ,L CHEST WALL HD CATH CLEAN DRY AND INTACT , ALL NEEDS ATTENDED , WILL CONTINUE TO MONITOR
[2020-05-14] MEDS ORDERED: IV NS 0.9% 1,000 ML IV PRN (08:00)
--- NOTE | 2020-05-14 08:14 | NUR ---
WOUND CARE CONSULT: REVIEWED CHART, NURSING DOCUMENTATION AND PHOTOS WHICH INDICATE MULTIPLE WOUNDS PRESENT ON ADMISSION INCLUDING LOWER EXTREMITIES. RECOMMEND SURGICAL AND DPM CONSULTS. DR MARIEE AND DR LAM NOTIFIED OF CONSULT REQUESTS. RECOMMENDATIONS MADE FOR SKIN PROTECTION. DISCUSSED WITH NURSING STAFF. FIRST STEP LOW AIRLOSS MATTRESS IS ON ORDER. MD IN AGREEMENT WITH PLAN OF CARE.
--- NOTE | 2020-05-14 08:20 | NUR ---
RT PATIENT REC'D TRACHED ON [facility] VENT WITH ORDERED SETTINGS HAYDEE WELL. ALARMS CHECKED + AUDIBLE. TRACH SECURE AND IN PROPER POSITION. AIRWAY CHECKED AND SUCTIONED. PATIENT APPEARS COMFORTABLE AND IN NO DISTRESS. AMBU BAG AT HOB. Addendum: 05/14/20 at 0959 by SUKUMAR BERRY RT Amended: Links added.
[2020-05-14] MEDS: Z GUARD REMEDY 2 OZ OINT TP SCH ×2 (08:39→20:02)
[2020-05-14] MEDS ORDERED: HYDROCODONE/APAP 5/325MG TABLET PO PRN (10:30)
[2020-05-14] MEDS ORDERED: ZOLPIDEM TARTRATE 5 MG TABLET PO PRN (10:30)
[2020-05-14] MEDS ORDERED: ACETAMINOPHEN 325 MG TABLET PO PRN (10:30)
[2020-05-14] MEDS ORDERED: NEPRO VAN 237 ML CAN GT SCH (10:30)
[2020-05-14] MEDS ORDERED: ONDANSETRON HCL/PF 4 MG/2 ML VIAL IVP PRN (10:30)
[2020-05-14] MEDS ORDERED: PIPERACILLIN /TAZOBACTAM 2.25 G in IV D5W 50 ML IV SCH (11:00)
[2020-05-14] MEDS ORDERED: VANCOMYCIN 500 MG in IV D5W 100 ML IV PRN (11:00)
[2020-05-14] MEDS ORDERED: VANCOMYCIN 1 GM in IV D5W 250 ML IV ONE (11:30)
--- NOTE | 2020-05-14 12:11 | NUR ---
ASL INTERPRETER NOTES HD STARTED , PT STABLE AT THIS TIME , WILL CONTINUE TO MONITOR .
[2020-05-14] MEDS: CALCIUM ACETATE 667 MG TABLET PO SCH ×2 (14:44→17:00)
--- NOTE | 2020-05-14 15:00 | NUR ---
HUMAN RESOURCES OPERATIONS SPECIALIST NOTES PT STABLE S/P HD , 1L OUT , VSS , WILL ADMIN VANCO , ZOSYN IV AND PHOSLO GT ,
[2020-05-14] MEDS ORDERED: SILVER SULFADIAZINE CREAM 25 GM TUBE TP PRN (16:30)
[2020-05-14] MEDS: NEPRO 1,000 ML BOTTLE GT PRN (16:58)
--- NOTE | 2020-05-14 17:16 | NUR ---
HOT MILL SHEARER NOTES SACRAL AND RIGHT FOOT WOUND SWABBED FOR CULTURE , LABELED AND SENT TO LAB ,
--- NOTE | 2020-05-14 17:39 | NUR ---
TELECOMMUNICATIONS CLERK NOTES NOTIFIED DR BENITES THAT SACRAL WOUND HAS NO ORDERS , PER MD SHE WILL PUT ORDERS LATER ,
--- NOTE | 2020-05-14 18:14 | NUR ---
patient transported to [facility]. vent alarms checke d+ audible. ambu bag at [facility].
--- NOTE | 2020-05-14 18:15 | NUR ---
RECEIVED PATIENT IN BED. NO ACUTE DISTRESS NOTED. PATIENT OPENS EYES, FOLLOWS COMMAND. PATIENT ON FURNITURE UPHOLSTERER, NORMAL SINUS RHYTHM NOTED. PATIENT ONMECHANICAL VENTILATOR, TOLERATING SETTINGS WELL WITH O2 SATURATION OF 100%. PATIENT G-TUBE IN PLACE, CLOGGED. CALLED CENTRAL FOR DECLOGGER, AWAITING ANSWER. PATIENT RIGHT AC IV ACCESS INTACT, FLUSHED WELL. PATIENT SAFETY MEASURES MAINTAINED. CALL LIGHT WITHIN REACH. WILL CONTINUE TO MONITOR. VITAL SIGNS- TEMPERATURE 98.2, PULSE 66, RESPIRATIONS 16, O2 SATURATION 100%, 120/68 BLOOD PRESSURE
--- NOTE | 2020-05-14 18:15 | NUR ---
FINANCE OFFICER NOTES PATIENT STABLE AT THIS TIME , TRANSFERED PT TO ROOM 102 VIA ACLS PROTOCOL , MONITOR ATTACHED , @1810 PATIENT OPENS EYES ABLE TO FOLLOW SIMPLE COMMANDS , NOT IN ACUTE DISTRESS ,RESPIRATIONS EVEN AND UNLABORED WITH SPO2 OF 100% VIA MECHANICAL VENTILATOR SETTINGS ORDERED , SR 61 TELE MONITOR , GT PATENT AND INTACT WITH NEPHRO @ 30ML/HR WITH NO RESIDUALS NOTED , RAC # 20 PATENT AND INTACT WTIH NS @TKO ,L CHEST WALL HD CATH CLEAN DRY AND INTACT , ALL NEEDS ATTENDED , REPORT GIVEN TO ASHLEY FORREST FOR CONTINUITY OF CARE
--- NOTE | 2020-05-14 18:37 | NUR ---
RN TELE1 PATIENT IN BED, NO S/S OF DISTRESS, TRACH PORTEX 8, AC 14, TV 500, FIO2 40%, PEEP 0 BECAUSE HE WAS EXPERIENCING LOW BLOOD PRESSURE, A/O X1, OPENS EYES/ FOLLOWS COMMANDS, TELE MONITOR IN PLACE SINUS FUNMI WHEN SLEEPING, SINUS RHYTHM WHEN AWAKE, G TUBE RUNNING NEPRO @ 30ML/HR, TOLERATING WELL, ANURIC, DIALYSIS IS SCHEDULED, HD TODAY 1L OUT, NO BOWEL MOVEMENT TODAY, RT AND LEFT HEEL WOUND, SACRAL WOUND, BUTTOCK WOUND, LOWER BACK WOUND, WOUND CARE PROVIDED ORDERED, CLEAN DRY AND INTACT NOW, R FOOT X RAY SHOWS OSTEOMYELITIS, NONE IN LEFT FOOT X RAY, BILATERAL SOFT WRIST RESTRAINTS TO BE RENEWED AT 1500, L CHEST HD CATHETER, R AC #20 GAUGE, L ARM FISTULA WITH NO BRUIT SO IT IS NO LONGER IN USE FOR HEMODIALYSIS, NS RUNNING TKO 10ML/HR IN RAC CLEAN DRY AND INTACT, ACCU CHECK Q6H, LAST BG WAS 83, SACRAL WOUDN AND R FOOT CULTURE PENDING, WOUND CONSULT COMPLETE, VANCOMYCIN TROUGH @ 0600, PLAN FOR POSSIBLE FOOT AMPUTATION DEPENDED ON R FOOT X RAY, BED IN LOWEST LOCKED POSITION, SAFETY MEASURES IN PLACE, WILL ENDORSE TO CAR LUBRICATOR.
--- NOTE | 2020-05-14 19:30 | NUR ---
RN NOTE RECEIVED PATIENT IN BED, A/O X1, OPENS EYES ON TELE MONITOR IN PLACE CURRENTL SINUS RHYTHM. TOLERATING CURRENT VENT SETTINGS, NO S/S OF RESPIRATORY DISTRESS, BREATHING EVEN AND UNLABORED. G TUBE RUNNING NEPRO @ 30ML/HR, PT ANURIC, BILATERAL SOFT WRIST RESTRAINTS IN PLACE. CHEST HD CATHETER INTACT, IV TO RAC #20 GAUG PATENT INTACT AND FLUSHING WELL. L ARM FISTULA WITH NO BRUIT SO IT IS NO LONGER IN USE FOR HEMODIALYSIS, NS RUNNING TKO 10ML /HR, BED LOCKED AND IN THE LOWEST POSITION, SAFETY MEASURES IN PLACE WILL CONT. TO MONITOR PT
[2020-05-14] MEDS: THERAHONEY GEL 1.5 OZ TUBE TP SCH (19:34)
[2020-05-14] MEDS: DAKINS QUARTER STRENGTH (0.125%) 480 ML BOTTLE TOP SCH (19:35)
[2020-05-14] MEDS: PIPERACILLIN /TAZOBACTAM 2.25 G in IV D5W 50 ML IV SCH (20:01)
[2020-05-15] VITALS: BP 122/68
--- NOTE | 2020-05-15 02:01 | NUR ---
RT NOTE Pt rec'd trached on [facility] vent on AC mode. Pt shows no signs of resp distress or sob. Trach is patent and secured. sx'd for thick mod amt of pale yellow secretions. Alarms are set and audible. vent plugged into red outlet. ambu bag bedside. Will continue to monitor closely. Addendum: 05/15/20 at 0203 by EFRAIN PATTERSON RT Amended: Links added.
[2020-05-15 04:00] VITALS: BP 130/73
[2020-05-15] MEDS: PIPERACILLIN /TAZOBACTAM 2.25 G in IV D5W 50 ML IV SCH ×3 (05:06→21:04)
[2020-05-15 06:06] LABS: BASOPHILS # (AUTO) 0.1 /CMM (0.0-0.2); BASOPHILS % (AUTO) 1.3 % (0.0-2.0); CALCIUM, SERUM 8.7 mg/dL (8.5-10.1); CREATININE 6.4 mg/dL (0.6-1.3); EOSINOPHILS % (AUTO) 4.8 % (0.0-6.0); HEMATOCRIT 34 % (39-51); HEMOGLOBIN 11.1 g/dL (13.5-17.5); LYMPHOCYTES # (AUTO) 1.1 /CMM (0.8-4.8); LYMPHOCYTES % (AUTO) 13.5 % (20.0-44.0); MAGNESIUM 3.2 mg/dL (1.8-2.4); MEAN CORPUSCULAR HGB CONC 33 g/dl (31.0-36.0); MEAN CORPUSCULAR VOLUME 98 fL (80-96); MONOCYTES % (AUTO) 11.9 % (2.0-12.0); NEUTROPHILS # (AUTO) 5.8 /CMM (1.8-8.9); NEUTROPHILS % (AUTO) 68.5 % (43.0-81.0); PHOSPHORUS 3.5 mg/dL (2.5-4.9); PLATELET COUNT (AUTO) 198 /CMM (150-450); POTASSIUM 3.7 mmol/L (3.5-5.1); RED BLOOD CELL COUNT(AUTO) 3.42 MIL/uL (4.5-6.0); WHITE BLOOD COUNT (AUTO) 8.4 K/uL (4.3-11.0)
[2020-05-15] MEDS: BLOOD SUGAR DIAGNOSTIC 1 EACH STRIP IN SCH ×3 (06:15→17:33)
[2020-05-15 06:21] LABS: THYROID STIMULATING HORMONE 1.497 uIU/mL (0.358-3.74)
--- NOTE | 2020-05-15 07:00 | NUR ---
LABORER OPERATOR 1 RECEIVED PATIENT IN BED, PATIENT OPEN EYES, NONVERBAL.ON VENTILATOR, PORTEX 8 AC, TV 500, F102 40 %. NO RESPIRATORY DISTRESS NOTED. GTUBE FEEDING NEPRO AT 30ML/HR TOLERATING WELL, MINIMAL RESIDUALS NOTED. HEAD OF THE BED ELEVATED. WITH BILATERAL HAND SOFT RESTRAINTS. NO SIGNS OF SKIN BREAKDOWN NOTED. WITH MULTIPLE WOUNDS, DRESSINGS CLEAN AND DRY. WITH LEFT CHEST HD CATHETER, INTACT. NO BLEEDING NOTED .SIDE RAILS UP X2 BED AT LOWEST POSITION. ALL SAFETY MEASURES IMPLEMENTED PER PROTOCOL.
--- NOTE | 2020-05-15 07:20 | NUR ---
RN NOTE PT REMAIN STABLE NO CHANGES DURING SHIFT. ALL MEDS GIVEN WOUND CARE COMPLETED. = ENDORSED TO AM RN FOR DENNIS
[2020-05-15 08:00] VITALS: BP 124/73
[2020-05-15] MEDS ORDERED: PANTOPRAZOLE 40 MG VIAL IV SCH (09:00)
[2020-05-15] MEDS: CALCIUM ACETATE 667 MG TABLET PO SCH ×3 (09:54→17:32)
[2020-05-15] MEDS: DAKINS QUARTER STRENGTH (0.125%) 480 ML BOTTLE TOP SCH (09:55)
[2020-05-15] MEDS: Z GUARD REMEDY 2 OZ OINT TP SCH ×2 (09:55→21:24)
[2020-05-15] MEDS: THERAHONEY GEL 1.5 OZ TUBE TP SCH (09:55)
[2020-05-15 12:00] VITALS: BP 124/52
[2020-05-15 16:00] VITALS: BP 123/80
--- NOTE | 2020-05-15 18:32 | NUR ---
SUPERINTENDENT CAR CONSTRUCTION 1 PATIENT IN BED, NON VERBAL. OPEN HIS EYES. ON VENTILATOR PORTEX 8 AC TV 500 FI02 40%. NOT IN ANY ACUTE DISTRESS. ON EXTERNAL MONITOR, SR AT THIS TIME. LEFT CHEST DIALYSIS SITE DRY AND INTACT. NO SIGNS OF INFECTION. GTUBE FEEDING OF NEPRO @ 30 ML/HR TOLERATING WELL WITH MINIMAL RESIDUALS. HEAD OF THE BED ELEVATED, NO SIGNS AND SYMPTOMS OF ASPIRATION NOTED. WITH RIGHT AC 20 G PATENT AND INTACT. PATIENT ANURIC, NO BM. LAST HD 05/14 WITH 1L OUT. PATIENT WITH RIGHT AND LEFT HEEL AND SACRUM WOUND, TURN Q2H, WOUND TX COMPLETED. BED LOCKS, LOWEST POSITION. SIDE RAILS UP X2. CALL LIGHT WITHIN REACH, ALL SAFETY MEASURES IMPLEMENTED PER PROTOCOL
--- NOTE | 2020-05-15 19:10 | NUR ---
RN OPENING NOTES RECEIVED PT RESTING IN BED. PT IS ABLE TO OPEN EYES BUT NONVERBAL. PT IS TRACH TO VENT SETTINGS ORDERED. CURRENTLY ON TELE MONITORING NSR AT THIS TIME. HR OF PORTEX 8 AC 14 TV 500 FIO2 40% AND PEEP OF 0. PT TOLERATING WELL NO S/S OF RESP DISTRESS OR SOB OR DIFFICULTY NOTED AT THIS TIME. PT IS STILL ON RESTRAINTS. CIRCULATION CHECKED, SKIN CHECKED WILL CONTINUOUSLY FOLLOW UP WITH RESTRAINT NEED. IV SITE FLUSHED, RIGHT AC #20, PT TENDS TO PULL AWAY FROM CARE. REORIENTATION AND REDIRECTION USED PT RESPONSIVE. GTUBE PRESENT RESIDUAL LESS THAN 10 CC, AUSCULTATED TO CONFIRM PLACEMENT. TUBE FEEDING RUNNING AT 30ML/HR TOLERATING WELL. LINE FLUSHED. PATENT. BED IS LOCKED IN LOWEST POSITION WITH BED ALARM ON. HOB RAISED TO 40 DEGREES. CALL LIGHT WITHIN REACH.
[2020-05-15 20:00] VITALS: BP 138/83
--- NOTE | 2020-05-15 23:15 | NUR ---
OBTAINED TELEPHONE CONSENT VIA CLASSI/DAUGHTER WHO IS PRIMARY CONTACT FOR THIS PT. OBTAINED CONSENT FOR SERIAL DEBRIDEMENT OF THE SACRUM AND BUTTOCKS WITH WITNESS OSBALDO FORREST,
[2020-05-16] VITALS: BP 127/75
[2020-05-16] MEDS: BLOOD SUGAR DIAGNOSTIC 1 EACH STRIP IN SCH ×4 (00:12→17:58)
[2020-05-16] MEDS: NEPRO 1,000 ML BOTTLE GT PRN (00:12)
--- NOTE | 2020-05-16 02:25 | NUR ---
PT IS RESTING ASLEEP, SKIN CIRCULATION CHECKED WILL CONTINUE TO MONITOR. RESTRAINT STILL IN PLACE.
[2020-05-16 04:00] VITALS: BP 104/59
[2020-05-16] MEDS: PIPERACILLIN /TAZOBACTAM 2.25 G in IV D5W 50 ML IV SCH ×3 (05:17→21:03)
--- NOTE | 2020-05-16 05:45 | NUR ---
NEW IV PLACED ON LEFT HAND DUE TO RIGHT AC BEING PULLED OUT
--- NOTE | 2020-05-16 06:42 | NUR ---
RN CLOSING NOTES NO SIGNIFICANT CHANGES. STILL ON VENT SETTINGS ORDERED. NO SHORTNESS OF BREATHING OR RESP DISTRESS NOTED AT THIS TIME. PT SUCTIONED NEEDED. TRACH DRESSING CHANGED WITH RT. PT HAD NO BM. PT HAD NEW IV PLACED. ON LEFT HAND. FLUSHES WELL, TKO RUNNING. RESIDUALS LESS THAN 15CC AT THIS TIME. STILL RECEIVING NEPRO AT 30ML/HR. SAFETY MEASURES IN PLACE. PT BED LOCKED IN LOWEST POSITION WITH BED ALARM ON. HOB ELEVATED. CONSENT SIGNED IN CHART. CALL LIGHT WITHIN REACH. WILL ENDORSE TO AM NURSE FOR DENNIS.
[2020-05-16 06:47] LABS: BASOPHILS % (AUTO) 0.6 % (0.0-2.0); EOSINOPHILS % (AUTO) 5.3 % (0.0-6.0); HEMATOCRIT 36 % (39-51); HEMOGLOBIN 11.6 g/dL (13.5-17.5); LYMPHOCYTES # (AUTO) 1.2 /CMM (0.8-4.8); LYMPHOCYTES % (AUTO) 14.2 % (20.0-44.0); MEAN CORPUSCULAR HGB CONC 32 g/dl (31.0-36.0); MEAN CORPUSCULAR VOLUME 98 fL (80-96); MONOCYTES # (AUTO) 1.1 /CMM (0.1-1.30); MONOCYTES % (AUTO) 12.7 % (2.0-12.0); NEUTROPHILS # (AUTO) 5.7 /CMM (1.8-8.9); NEUTROPHILS % (AUTO) 67.2 % (43.0-81.0); PLATELET COUNT (AUTO) 223 /CMM (150-450); RED BLOOD CELL COUNT(AUTO) 3.64 MIL/uL (4.5-6.0); WHITE BLOOD COUNT (AUTO) 8.5 K/uL (4.3-11.0)
[2020-05-16 07:44] LABS: CALCIUM, SERUM 9.2 mg/dL (8.5-10.1); CREATININE 7.4 mg/dL (0.6-1.3); MAGNESIUM 3.3 mg/dL (1.8-2.4); PHOSPHORUS 3.8 mg/dL (2.5-4.9); POTASSIUM 3.7 mmol/L (3.5-5.1)
[2020-05-16 08:00] VITALS: BP 131/81
[2020-05-16] MEDS: PANTOPRAZOLE 40 MG/PACK PACK GT SCH (09:04)
[2020-05-16] MEDS: DAKINS QUARTER STRENGTH (0.125%) 480 ML BOTTLE TOP SCH (09:04)
[2020-05-16] MEDS: CALCIUM ACETATE 667 MG TABLET PO SCH ×3 (09:04→17:58)
[2020-05-16] MEDS: THERAHONEY GEL 1.5 OZ TUBE TP SCH (09:05)
[2020-05-16] MEDS: Z GUARD REMEDY 2 OZ OINT TP SCH ×2 (09:05→21:04)
[2020-05-16 12:00] VITALS: BP 147/80
[2020-05-16 16:00] VITALS: BP 129/76
--- NOTE | 2020-05-16 18:42 | NUR ---
CANDY CATCHER 1 PATIENT IN BED, NON VERBAL. OPEN HIS EYES. ON VENTILATOR PORTEX 8 AC TV 500 FI02 40%. NOT IN ANY ACUTE DISTRESS. ON EXTERNAL MONITOR, SR AT THIS TIME. LEFT CHEST DIALYSIS SITE DRY AND INTACT. NO SIGNS OF INFECTION. GTUBE FEEDING OF NEPRO @ 30 ML/HR TOLERATING WELL WITH MINIMAL RESIDUALS. HEAD OF THE BED ELEVATED, NO SIGNS AND SYMPTOMS OF ASPIRATION NOTED. WITH RIGHT HAND 20 G PATENT AND INTACT WITH TKO RUNNNG . PATIENT ANURIC, NO BM. LAST HD 05/16 WITH 2400ML OUT. PATIENT WITH RIGHT AND LEFT HEEL AND SACRUM WOUND, TURN Q2H, WOUND TX COMPLETED. BED LOCKS, LOWEST POSITION. SIDE RAILS UP X2. CALL LIGHT WITHIN REACH, ALL SAFETY MEASURES IMPLEMENTED PER PROTOCOL
[2020-05-16 20:00] VITALS: BP 123/73
[2020-05-17] VITALS: BP 125/77
[2020-05-17] MEDS: BLOOD SUGAR DIAGNOSTIC 1 EACH STRIP IN SCH ×5 (00:04→23:30)
[2020-05-17 04:00] VITALS: BP 125/63
[2020-05-17] MEDS: PIPERACILLIN /TAZOBACTAM 2.25 G in IV D5W 50 ML IV SCH ×3 (05:22→21:10)
[2020-05-17 06:48] LABS: BASOPHILS # (AUTO) 0.1 /CMM (0.0-0.2); BASOPHILS % (AUTO) 0.9 % (0.0-2.0); EOSINOPHILS % (AUTO) 5.4 % (0.0-6.0); HEMATOCRIT 34 % (39-51); HEMOGLOBIN 11.1 g/dL (13.5-17.5); LYMPHOCYTES # (AUTO) 1.3 /CMM (0.8-4.8); LYMPHOCYTES % (AUTO) 17.3 % (20.0-44.0); MEAN CORPUSCULAR HGB CONC 32 g/dl (31.0-36.0); MEAN CORPUSCULAR VOLUME 99 fL (80-96); MONOCYTES # (AUTO) 1.1 /CMM (0.1-1.30); MONOCYTES % (AUTO) 14.1 % (2.0-12.0); NEUTROPHILS # (AUTO) 4.8 /CMM (1.8-8.9); NEUTROPHILS % (AUTO) 62.3 % (43.0-81.0); PLATELET COUNT (AUTO) 216 /CMM (150-450); RED BLOOD CELL COUNT(AUTO) 3.47 MIL/uL (4.5-6.0); WHITE BLOOD COUNT (AUTO) 7.7 K/uL (4.3-11.0)
[2020-05-17 07:07] LABS: CALCIUM, SERUM 9.3 mg/dL (8.5-10.1); CREATININE 6.2 mg/dL (0.6-1.3); MAGNESIUM 3.2 mg/dL (1.8-2.4); PHOSPHORUS 3.8 mg/dL (2.5-4.9); POTASSIUM 3.9 mmol/L (3.5-5.1)
--- NOTE | 2020-05-17 07:53 | NUR ---
radio television announcer note patient in bed awake both eyes open able to follow simple command, with trach to vent setting as ordered , on telemonitor sr hr 67, on g tube feeding as ordered ,keep hob elevated at , all time , no residual noted, lt subclavian hd in pace, lt hand hl note hand is swollen , keep elevated at this time, will ask dr to order mod line ,bed in lowest and locked position, will cont to monitor
[2020-05-17 08:00] VITALS: BP 126/78
[2020-05-17] MEDS: CALCIUM ACETATE 667 MG TABLET PO SCH ×3 (08:07→17:09)
[2020-05-17] MEDS: DAKINS QUARTER STRENGTH (0.125%) 480 ML BOTTLE TOP SCH (08:08)
[2020-05-17] MEDS: PANTOPRAZOLE 40 MG/PACK PACK GT SCH (08:08)
[2020-05-17] MEDS: THERAHONEY GEL 1.5 OZ TUBE TP SCH (08:08)
[2020-05-17] MEDS: Z GUARD REMEDY 2 OZ OINT TP PRN ×2 (08:09→21:13)
[2020-05-17] MEDS: Z GUARD REMEDY 2 OZ OINT TP SCH ×2 (08:12→21:00)
--- NOTE | 2020-05-17 11:00 | NUR ---
telecommunications field technician note cont on g tube feeding, not in distress, seen by dr Gupta
[2020-05-17] MEDS: NEPRO 1,000 ML BOTTLE GT PRN (11:51)
[2020-05-17 12:00] VITALS: BP 126/78
--- NOTE | 2020-05-17 13:45 | NUR ---
telephone plant power operator note mid line nurse at bedside inserting mid line will f\u
--- NOTE | 2020-05-17 15:00 | NUR ---
TRAINMASTER NOTE TURN REPOSITION , ALL NEEDS ATTENDED TRACH CARE DONE , WOUND CARE DONE SAFETY MEASURE OBSERVED, WILL CONT TO MONITOR
[2020-05-17 16:00] VITALS: BP 110/47
--- NOTE | 2020-05-17 18:24 | NUR ---
telephone solicitor supervisor note patient in bed ,with trach to vent setting as ordered, with g tube feeding as ordered,keep hob elevated at all time ,not in distress
[2020-05-17 20:00] VITALS: BP 134/73
--- NOTE | 2020-05-17 20:03 | NUR ---
RT pt received on vent with current settings. trached, portex 8, cuffed. vent plugged in to red outlet. alarms on and audible. moderate thick yellow secretions suctioned via trach. no new orders at this time. will continue to monitor
--- NOTE | 2020-05-17 20:30 | NUR ---
RN NOTES: RECEIVED ENDORSEMENT FROM ALLYSSA/LON,PATIENT IS ON VENTILATOR,PORTEX SIZE #8, SPO2-100%,NON VERBAL, WITH LEFT HEMIPLEGIA, ON SR-80'S, VILLARREAL CATH ON SITE, ANURIC, RIGHT BRACHIAL MIDLINE PATENT WITH IVF ON KVO, PEG TUBE INTATC, WITH FEEDING OF NEPHRO ONGOING VIA FEEDING PUMP AT 30 ML/HR, ON CLOSE WATCH, HIS RESTRAIN WAS REMOVE, HE DO NOT PULL TAKE OUT HIS TUBINGS. Addendum: 05/18/20 at 0550 by GALLO BLANKENSHIP RN CORRECTION ON TH ABOVE NOTES: PATIENT IS NOT ON VILLARREAL CATH, WRONG ENTRY OF INFORMATION.
--- NOTE | 2020-05-17 23:31 | NUR ---
RN NOTES: -TURN AND REPOSITIONING DONE, BLOOD SUGAR=68, GIVEN WATER VIA PEG AND SOME ORANGE JUICE,WILL CONTINUE TO MONITOR FOR SIGN OF HYPER/HYPOGLYCEMIA.
[2020-05-18] VITALS: BP 138/68
--- NOTE | 2020-05-18 02:33 | NUR ---
RN NOTES: BED BATH RENDERED, HAD BM, CLEAN AND CHANGE, DRESSING DONE ON SACROCOCCYX AREA. REPOSITIONED, OFF LOADING DONE, FEEDING CONTINUED.
[2020-05-18 04:00] VITALS: BP 130/61
[2020-05-18] MEDS: PIPERACILLIN /TAZOBACTAM 2.25 G in IV D5W 50 ML IV SCH ×3 (04:05→20:12)
[2020-05-18] MEDS: BLOOD SUGAR DIAGNOSTIC 1 EACH STRIP IN SCH ×3 (05:16→17:50)
--- NOTE | 2020-05-18 05:16 | NUR ---
RN NOTES: BLOOD SUGAR CHECKED-61, CN MADE AWARE, GIVEN APPLE JUICE, WILL CONTINUE TO MONITOR FOR ANY SIGN OF HYPOGLYCEMIA, TURNED AND REPOSITION.
[2020-05-18 06:20] LABS: CALCIUM, SERUM 9.5 mg/dL (8.5-10.1); CREATININE 7.4 mg/dL (0.6-1.3)
[2020-05-18 06:23] LABS: BASOPHILS # (AUTO) 0.1 /CMM (0.0-0.2); BASOPHILS % (AUTO) 1.4 % (0.0-2.0); EOSINOPHILS % (AUTO) 5.7 % (0.0-6.0); HEMATOCRIT 32 % (39-51); HEMOGLOBIN 10.7 g/dL (13.5-17.5); LYMPHOCYTES # (AUTO) 1.6 /CMM (0.8-4.8); LYMPHOCYTES % (AUTO) 21.9 % (20.0-44.0); MEAN CORPUSCULAR HGB CONC 33 g/dl (31.0-36.0); MEAN CORPUSCULAR VOLUME 99 fL (80-96); MONOCYTES # (AUTO) 0.9 /CMM (0.1-1.30); MONOCYTES % (AUTO) 11.6 % (2.0-12.0); NEUTROPHILS # (AUTO) 4.4 /CMM (1.8-8.9); NEUTROPHILS % (AUTO) 59.4 % (43.0-81.0); PLATELET COUNT (AUTO) 201 /CMM (150-450); RED BLOOD CELL COUNT(AUTO) 3.28 MIL/uL (4.5-6.0); WHITE BLOOD COUNT (AUTO) 7.5 K/uL (4.3-11.0)
--- NOTE | 2020-05-18 06:50 | NUR ---
RN NOTES: TURNED AND REPOSITION LATEST SPO2-99% W[place]-65, TO RE-CHECK BLOOD SUGAR,LATEST WEIGHT-156, HAD 1 BOWEL MOVEMENT, ANURIA,REMAINS STABLE, NON LABORED BREATHING NO SIGN OF RESPIRATORY DISTRESS, NO RESTLESSNESS NOTED THE ENTIRE SHIFT. ENDORSED FOR CONTINUITY OF CARE.
--- NOTE | 2020-05-18 07:30 | NUR ---
RN OPENING NOTES RECEIVED PATIENT IN BED OBTUNDED WITH PORTEX 8 TO MECHANICAL VENT WITH SETTING ORDERED. AC 14 TV 500 FIO2 40% PEEP 0 , BREATHING EVEN AND UNLABORED. SINUS RHYTHM ON MONITOR. NO SIGNS OF PAIN OR DISCOMFORT, NO GRIMACING. L SUBCLAVIAN HD CATH CDI DRESSING. LEFT HAND 20G AND R BRACHIAL MIDLINE 18G. BOTH FLUSHES WELL AND BOTH SITES CLEAR. SEE NURSING FLOWSHEET FOR SKIN ISSUES. ON GTUBE FEEDING WITH NEPHRO 30ML/HR. 0 RESIDUAL. RESTRAINT REMOVED AT THIS TIME. CIRCULATIONS CHECKED. WILL PERFORM PRESCRIBED WOUND TREATMENT IN WHILE. WILL TURN AND REPOSITION Q 2HOURS. SUCTION PRN, SAFETY MEASURES IN PLACE. CALL LIGHT WITHIN REACH. WILL CONTINUE TO MONITOR.
[2020-05-18 08:00] VITALS: BP 131/54
[2020-05-18] MEDS: PANTOPRAZOLE 40 MG/PACK PACK GT SCH (08:47)
[2020-05-18] MEDS: CALCIUM ACETATE 667 MG TABLET PO SCH ×3 (08:47→17:50)
[2020-05-18] MEDS: DAKINS QUARTER STRENGTH (0.125%) 480 ML BOTTLE TOP SCH (08:51)
[2020-05-18] MEDS: Z GUARD REMEDY 2 OZ OINT TP SCH ×2 (08:51→20:12)
[2020-05-18] MEDS: SILVER SULFADIAZINE CREAM 25 GM TUBE TP SCH (08:52)
[2020-05-18] MEDS: THERAHONEY GEL 1.5 OZ TUBE TP SCH (08:56)
--- NOTE | 2020-05-18 09:30 | NUR ---
RN NOTES DUE MEDS GIVEN.
[2020-05-18 12:00] VITALS: BP 130/75
--- NOTE | 2020-05-18 13:55 | NUR ---
RN OTES PM CARE DONE. PERFORMED PRESCRIBED WOUND TREATMENTS
[2020-05-18] MEDS: NEPRO 1,000 ML BOTTLE GT PRN (15:06)
[2020-05-18 16:00] VITALS: BP 135/69
--- NOTE | 2020-05-18 18:16 | NUR ---
RN CLOSING NOTE PATIENT IN BED RESTING. NONVERBAL. CONTINUES ON VENTILATOR PRTEX 8 AC TV 500 FI02 40% NO S/S OF ACUTE DISTRESS AT THIS TIME. ON EXTERNAL MONITOR, SINUS RHYTHM AT THIS TIME. GTUBE FEEDING OF NEPRO @ 30 ML/HR TOLERATING WELL WITH MINIMAL RESIDUALS. HEAD OF THE BED ELEVATED, NO SIGNS AND SYMPTOMS OF ASPIRATION NOTED. WITH RIGHT HAND 20 G PATENT AND INTACT. PATIENT ANURIC, NO BM. HD DONE TODAY WITH 1000ML OUT. PATIENT WITH RIGHT AND LEFT HEEL AND SACRUM WOUND, TURN Q2H, WOUND TX COMPLETED. BED LOCKS, LOWEST POSITION. SIDE RAILS UP X2. CALL LIGHT WITHIN REACH, ALL SAFETY MEASURES IMPLEMENTED PER PROTOCOL. WILL ENDORSE TO NEXT SHIFT.
[2020-05-18 20:00] VITALS: BP 129/79
--- NOTE | 2020-05-18 20:00 | NUR ---
ms rn opening note received pt in bed. nonverbal. Breathing even and unlabored in mechanical vent. No sob or acute distress noted. Right upper arm midline patent and intact. gtube patent and intact. gtf infusing well. left chest hd cath intact. repositioned. kept clean and dry. all needs rendered. bed in lowest position. call light within reach. will continue to monitor.
[2020-05-19] VITALS: BP 149/85
[2020-05-19] MEDS: BLOOD SUGAR DIAGNOSTIC 1 EACH STRIP IN SCH ×4 (00:06→18:02)
[2020-05-19 04:00] VITALS: BP 150/84
[2020-05-19] MEDS: PIPERACILLIN /TAZOBACTAM 2.25 G in IV D5W 50 ML IV SCH ×2 (04:54→13:13)
[2020-05-19 05:44] LABS: BASOPHILS # (AUTO) 0.1 /CMM (0.0-0.2); EOSINOPHILS % (AUTO) 4.8 % (0.0-6.0); HEMATOCRIT 35 % (39-51); HEMOGLOBIN 11.3 g/dL (13.5-17.5); LYMPHOCYTES # (AUTO) 1.5 /CMM (0.8-4.8); LYMPHOCYTES % (AUTO) 17.1 % (20.0-44.0); MEAN CORPUSCULAR HGB CONC 33 g/dl (31.0-36.0); MEAN CORPUSCULAR VOLUME 99 fL (80-96); MONOCYTES # (AUTO) 0.9 /CMM (0.1-1.30); MONOCYTES % (AUTO) 10.3 % (2.0-12.0); NEUTROPHILS # (AUTO) 5.9 /CMM (1.8-8.9); NEUTROPHILS % (AUTO) 66.8 % (43.0-81.0); PLATELET COUNT (AUTO) 199 /CMM (150-450); RED BLOOD CELL COUNT(AUTO) 3.49 MIL/uL (4.5-6.0); WHITE BLOOD COUNT (AUTO) 8.8 K/uL (4.3-11.0)
[2020-05-19 06:08] LABS: CALCIUM, SERUM 9.4 mg/dL (8.5-10.1); CREATININE 6.3 mg/dL (0.6-1.3); PHOSPHORUS 3.5 mg/dL (2.5-4.9); POTASSIUM 4.2 mmol/L (3.5-5.1)
--- NOTE | 2020-05-19 06:46 | NUR ---
management accounts manager note Pt in bed, breathing even and unlabored with no sob or acute distress noted. No sob or acute distress noted. katty midline patent and intact. Left subaclavian HD cath intact. dressing clean and dry. All needs rendered. Repositioned q2h. Kept clean and dry . Call light within reach.
--- NOTE | 2020-05-19 07:30 | NUR ---
RN OPENING NOTE RECEIVED PATIENT IN BED OBTUNDED WITH PORTEX 8 TO MECHANICAL VENT WITH SETTING ORDERED. AC 14 TV 500 FIO2 40% PEEP 0 , BREATHING EVEN AND UNLABORED. SINUS RHYTHM ON MONITOR. NO SIGNS OF PAIN OR DISCOMFORT, NO GRIMACING. L SUBCLAVIAN HD CATH CDI DRESSING. LEFT HAND 20G AND R BRACHIAL MIDLINE 18G. BOTH FLUSHES WELL AND BOTH SITES CLEAR. ON GTUBE FEEDING WITH NEPHRO 30ML/HR. 0 RESIDUAL. WILL PERFORM PRESCRIBED WOUND TREATMENT IN WHILE. WILL TURN AND REPOSITION Q 2HOURS. SUCTION PRN, SAFETY MEASURES IN PLACE. CALL LIGHT WITHIN REACH. WILL CONTINUE TO MONITOR.
[2020-05-19 08:00] VITALS: BP 125/87
[2020-05-19] MEDS: CALCIUM ACETATE 667 MG TABLET PO SCH ×3 (08:43→17:28)
[2020-05-19] MEDS: PANTOPRAZOLE 40 MG/PACK PACK GT SCH (08:43)
[2020-05-19] MEDS: DAKINS QUARTER STRENGTH (0.125%) 480 ML BOTTLE TOP SCH (08:44)
[2020-05-19] MEDS: Z GUARD REMEDY 2 OZ OINT TP SCH (08:44)
[2020-05-19] MEDS: SILVER SULFADIAZINE CREAM 25 GM TUBE TP SCH (08:44)
[2020-05-19] MEDS: THERAHONEY GEL 1.5 OZ TUBE TP SCH (08:45)
[2020-05-19] MEDS ORDERED: NEPRO 1,000 ML BOTTLE GT PRN (10:30)
--- NOTE | 2020-05-19 10:30 | NUR ---
RN NOTES NEPHRO TUBE FEEDING INCREASED FROM 30 TO 45 ML/HR ORDERED.
[2020-05-19] MEDS: PROSOURCE / PROSTAT (PYXIS) 30 ML UDC GT SCH ×3 (10:50→17:28)
[2020-05-19 12:00] VITALS: BP 142/84
[2020-05-19 16:00] VITALS: BP 140/69
--- NOTE | 2020-05-19 16:55 | NUR ---
RN NOTE CALL PLACED TO [facility], REPORT FOR PATIENT DISCHARGE GIVEN TO NURSE SAAD.
--- NOTE | 2020-05-19 19:02 | NUR ---
RN CLOSING NOTE PATIENT CURRENT IN BED SLEEPING, PENDING DISCHARGE. AMBULANCE RESEARCH NEUROPSYCHOLOGIST SCHEDULED FOR 18:30, HOWEVER, AMBULANCE INFORMED THAT THEY WILL BE 45 MINUTES LATE. PATIENT'S IV REMOVED. NO EXCESSIVE BLEEDING NOTED. ALL DISCHARGE DOCUMENTS COMPLETED. WILL ENDORSE TO DESIGN/ANIMATION INSTRUCTOR FOR DISCHARGE.
[2020-05-19 20:00] VITALS: BP 136/72
--- NOTE | 2020-05-19 20:09 | NUR ---
ms rn opening /discharge note received patient in bed. nonverbal, opens eyes to name. on mechanical vent portex #8, 14, tv 500 fio2 40, no resp distress. no s/s pain noted. external tele monitor reads sinus rhythm/ sinus jazmyne. removed tele monitor. in no apparent distress. no iv access, removed from day shift rn. gtube feeding running nepro @45ml/hr flushed and clamped. exit care given to compensation vice president, report given. patient is leaving to [facility] in stable condition. vs temp 98.5 bp 131/77 hr 68 rr 14 o2 sat 98%.
== END 2020-05-19 20:14 | DRG 710 ==
LOC: ER 13:10 → ICU 15:15 → TELE1 05-14 18:16 → MEDSG1 05-16 09:18 → TELE1 05-16 18:56
PROC: 5A1D70Z Performance of Urinary Filtration, Intermittent, Less than 6 Hours Per Day (ICD-10-PCS; 2020-05-14)
PROC: 5A1955Z Respiratory Ventilation, Greater than 96 Consecutive Hours (ICD-10-PCS; principal; 2020-05-16)
PROC: 0KBP0ZZ Excision of Left Hip Muscle, Open Approach (ICD-10-PCS; 2020-05-16)
PROC: 0KBN0ZZ Excision of Right Hip Muscle, Open Approach (ICD-10-PCS; 2020-05-16)
PROC: 05H533Z Insertion of Infusion Device into Right Subclavian Vein, Percutaneous Approach (ICD-10-PCS; 2020-05-17)
PROC: B546ZZA Ultrasonography of Right Subclavian Vein, Guidance (ICD-10-PCS; 2020-05-17)
DX: A41.9 Sepsis, unspecified organism (principal); J96.10 Chronic respiratory failure, unspecified whether with hypoxia or hypercapnia; N18.6 End stage renal disease; I12.0 Hypertensive chronic kidney disease with stage 5 chronic kidney disease or end stage renal disease; Z79.4 Long term (current) use of insulin; E87.1 Hypo-osmolality and hyponatremia; R40.3 Persistent vegetative state; I69.354 Hemiplegia and hemiparesis following cerebral infarction affecting left non-dominant side; E11.69 Type 2 diabetes mellitus with other specified complication; Z99.2 Dependence on renal dialysis; Z99.11 Dependence on respirator [ventilator] status; E11.621 Type 2 diabetes mellitus with foot ulcer; Z87.440 Personal history of urinary (tract) infections; E11.22 Type 2 diabetes mellitus with diabetic chronic kidney disease; Z93.1 Gastrostomy status; D63.1 Anemia in chronic kidney disease; R13.10 Dysphagia, unspecified; D68.69 Other thrombophilia; L89.216 Pressure-induced deep tissue damage of right hip; L89.324 Pressure ulcer of left buttock, stage 4; L89.314 Pressure ulcer of right buttock, stage 4; L89.154 Pressure ulcer of sacral region, stage 4; M24.562 Contracture, left knee; M24.561 Contracture, right knee; E46 Unspecified protein-calorie malnutrition; Z68.24 Body mass index [BMI] 24.0-24.9, adult; N25.0 Renal osteodystrophy; L97.419 Non-pressure chronic ulcer of right heel and midfoot with unspecified severity; L97.429 Non-pressure chronic ulcer of left heel and midfoot with unspecified severity; E11.51 Type 2 diabetes mellitus with diabetic peripheral angiopathy without gangrene; M86.672 Other chronic osteomyelitis, left ankle and foot; M86.671 Other chronic osteomyelitis, right ankle and foot; T83.091A Other mechanical complication of indwelling urethral catheter, initial encounter; Y84.8 Other medical procedures as the cause of abnormal reaction of the patient, or of later complication, without mention of misadventure at the time of the procedure; Y92.129 Unspecified place in nursing home as the place of occurrence of the external cause; N48.5 Ulcer of penis; Z74.01 Bed confinement status; Z86.14 Personal history of Methicillin resistant Staphylococcus aureus infection; I95.89 Other hypotension; G93.40 Encephalopathy, unspecified; Z93.0 Tracheostomy status
CPT/HCPCS: 31720; 36415; 71045-TC; 80048-TC; 80061-TC; 80076-TC; 80202-TC; 82962-TC; 83605-TC; 83735-TC; 84100-TC; 84443-TC; 84484-TC; 85025-TC; 85730-TC; 86706; 87040-TC; 87070-TC; 87081-TC; 87186-TC; 90935-TC; 93307-TC; 93926-TC; 94002-TC; 94003-TC; 94760-TC; 94762-TC; 94799-TC; 99082-TC; A6253; A6403; C9113; G0378; J1815; J2543; J3370; J7030; J7050; J7060; U0003

== ENCOUNTER 2020-08-02 16:47 | Inpatient (IN) | payer MEDICAID ==
[~2020-08-02] VITALS: Ht 172.7 cm; Wt 68.5 kg
[~2020-08-02 16:47] MED LIST changes: +ACETAMINOPHEN 650 MG/20.3 ML UDC GT PRN; +ACETAMINOPHEN 650 MG/SUPP.RECT RC PRN; -ARGI1PAC GT; -ASCO-352 GT; +CALC667C6 GT; -MAGN400O6 GT; -METH4TAB17 GT
--- NOTE | 2020-08-02 16:50 | NUR ---
JONATHAN FROM DIALYSIS CENTER (PATIENT FROM [facility]) C/O DIALYSIS ACCESS MALFUNCTION. MISSED DIALYSIS TUESDAY AND TODAY. TO ER BED 8, HOOKED TO MONITOR, PATIENT NOTED TO HAVE L UPPER CHEST PERMACATH, WITH TRACHEOSTOMY HOOKED TO VENTILATOR WITH SETTINGS AC 14, VT 500, O2 AT 40% AND PEEP OF 5.0. CHANGED TO HOSP GOWN, WARM BLANKET PROVIDED. PATIENT AAO x 0, PATIENT NOTED TO HAVE BUE AND BLE CONTRACTURES. NAD NOTED. DR CLEMENTE AT BEDSIDE
--- NOTE | 2020-08-02 17:06 | NUR ---
RT Pt brought into ER trached on mechanical ventilation with noted settings. Pt placed on hospital ventilator, alarms are set and audible with BVM by bedside. No SOB or respiratory distress noted. Addendum: 08/02/20 at 1719 by TYRESE ROWE RT Amended: Links added.
[2020-08-02 17:09] LABS: BASOPHILS # (AUTO) 0.1 /CMM (0.0-0.2); BASOPHILS % (AUTO) 0.9 % (0.0-2.0); EOSINOPHILS % (AUTO) 2.3 % (0.0-6.0); HEMATOCRIT 36 % (39-51); HEMOGLOBIN 11.6 g/dL (13.5-17.5); LYMPHOCYTES # (AUTO) 1.8 /CMM (0.8-4.8); LYMPHOCYTES % (AUTO) 11.6 % (20.0-44.0); MEAN CORPUSCULAR HGB CONC 33 g/dl (31.0-36.0); MEAN CORPUSCULAR VOLUME 102 fL (80-96); MONOCYTES # (AUTO) 1.5 /CMM (0.1-1.30); MONOCYTES % (AUTO) 10.2 % (2.0-12.0); NEUTROPHILS # (AUTO) 11.4 /CMM (1.8-8.9); PLATELET COUNT (AUTO) 232 /CMM (150-450); RED BLOOD CELL COUNT(AUTO) 3.49 MIL/uL (4.5-6.0); WHITE BLOOD COUNT (AUTO) 15.2 K/uL (4.3-11.0)
--- NOTE | 2020-08-02 17:17 | NUR ---
COMPOSITOR APPRENTICE AT BEDSIDE FOR XRAY
--- NOTE | 2020-08-02 17:31 | NUR ---
RAPID AND PCR COVID SWAB DONE AND SENT TO LAB
[2020-08-02 17:33] LABS: CALCIUM, SERUM 11.5 mg/dL (8.5-10.1); POTASSIUM 4.3 mmol/L (3.5-5.1)
[2020-08-02 17:36] LABS: CREATININE 12.8 mg/dL (0.6-1.3)
--- NOTE | 2020-08-02 19:03 | NUR ---
REPORT GIVEN TO MIYA FORREST FOR DENNIS
--- NOTE | 2020-08-02 19:19 | NUR ---
PT APPEARS TO BE COMFORTABLE AND NOT IN RESPIRATORY DISTRESS. VSS. PT CONNECTED TO THE MONITOR AND POX. WILL CONTINUE TO MONITOR PT.
--- NOTE | 2020-08-02 20:51 | NUR ---
RT pt received on mechanical vent with current settings. trached, shiley 8 cuffed. vent plugged in to red outlet. trach secure. spare trach at bedside. ambu bag at hob. alarms on and audible. small yellow thick secretions suctioned via trach. no sob, no resp distress at this time. will continue to monitor.
[2020-08-02] MEDS ORDERED: NEPRO VAN 237 ML CAN GT SCH (22:00)
[2020-08-02] MEDS ORDERED: ALBUTEROL SULFATE 8 GM HFA.AER.AD IH PRN (22:00)
[2020-08-02] MEDS ORDERED: BISACODYL SUPP (10 MG) 10 MG/SUPP.RECT SUPP.RECT RC PRN (22:00)
[2020-08-02] MEDS ORDERED: VIT B CMPLX 3/FA/VIT C/BIOTIN 1 TAB TABLET ONE (22:14)
[2020-08-02] MEDS: VIT B CMPLX 3/FA/VIT C/BIOTIN 1 TAB TABLET GT SCH (22:22)
[2020-08-02] MEDS ORDERED: VANCOMYCIN 1 GM in IV D5W 250ml IV ONE (22:30)
--- NOTE | 2020-08-02 23:50 | NUR ---
PT RESTING COMFORTABLY IN BED. VSS. WILL CONTINUE TO MONITOR PT.
[2020-08-02] MEDS ORDERED: ACETAMINOPHEN 325 MG TABLET ONE (23:58)
[2020-08-02] MEDS ORDERED: PIPERACILLIN /TAZOBACTAM 3.375 G VIAL IV ONE (23:59)
[2020-08-03] MEDS ORDERED: PIPERACILLIN /TAZOBACTAM 3.375 G in IV D5W 50 ML IV SCH ×2
[2020-08-03] MEDS ORDERED: ZOSYN IVPB 3.375 G in IV D5W 50ml IV SCH ×2
[2020-08-03] MEDS: BLOOD SUGAR DIAGNOSTIC 1 EACH STRIP IN SCH ×4 (00:11→17:22)
[2020-08-03] MEDS ORDERED: MIDODRINE HCL (5MG) 5 MG TABLET PO PRN (00:30)
--- NOTE | 2020-08-03 03:11 | NUR ---
PT TURNED TO R SIDE FOR COMFORT. WILL CONTINUE TO MONITOR
[2020-08-03 04:17] LABS: BASOPHILS # (AUTO) 0.1 /CMM (0.0-0.2); BASOPHILS % (AUTO) 1.1 % (0.0-2.0); EOSINOPHILS % (AUTO) 2.7 % (0.0-6.0); HEMATOCRIT 34 % (39-51); HEMOGLOBIN 11.3 g/dL (13.5-17.5); LYMPHOCYTES # (AUTO) 1.8 /CMM (0.8-4.8); LYMPHOCYTES % (AUTO) 13.3 % (20.0-44.0); MEAN CORPUSCULAR HGB CONC 33 g/dl (31.0-36.0); MEAN CORPUSCULAR VOLUME 101 fL (80-96); MONOCYTES # (AUTO) 1.3 /CMM (0.1-1.30); NEUTROPHILS # (AUTO) 9.7 /CMM (1.8-8.9); NEUTROPHILS % (AUTO) 72.9 % (43.0-81.0); PLATELET COUNT (AUTO) 219 /CMM (150-450); RED BLOOD CELL COUNT(AUTO) 3.37 MIL/uL (4.5-6.0); WHITE BLOOD COUNT (AUTO) 13.3 K/uL (4.3-11.0)
[2020-08-03 04:45] LABS: ALBUMIN 3.1 g/dL (3.4-5.0); BILIRUBIN,TOTAL 0.6 mg/dL (0.2-1.0); CALCIUM, SERUM 11.1 mg/dL (8.5-10.1); POTASSIUM 4.6 mmol/L (3.5-5.1); TOTAL PROTEIN, SERUM 7.9 g/dL (6.4-8.2)
[2020-08-03 05:03] LABS: CREATININE 13.4 mg/dL (0.6-1.3)
[2020-08-03 05:04] LABS: C-REACTIVE PROTEIN 3.8 mg/dL (0.0-0.9)
[2020-08-03 06:54] LABS: BILIRUBIN,DIRECT 0.2 mg/dL (0.0-0.2)
--- NOTE | 2020-08-03 07:25 | NUR ---
REPORT GIVEN TO LON DAVIS FOR DENNIS
[2020-08-03] MEDS ORDERED: PANTOPRAZOLE 40 MG/PACK PACK ONE (08:03)
[2020-08-03] MEDS ORDERED: DOCUSATE SODIUM LIQ 100 MG/10 ML UDC ONE (08:03)
[2020-08-03] MEDS: PIPERACILLIN /TAZOBACTAM 2.25 G in IV D5W 50 ML IV SCH ×2 (08:15→15:19)
[2020-08-03] MEDS ORDERED: PREVACID (NF) 30 MG TAB GT SCH (09:00)
[2020-08-03] MEDS: ATENOLOL 25 MG TABLET GT SCH (09:00)
[2020-08-03] MEDS: ACIDOPHILUS/BULGARICUS 1 EACH TAB.CHEW GT SCH ×2 (09:05→21:01)
[2020-08-03] MEDS: DOCUSATE SODIUM LIQ 100 MG/10 ML UDC GT SCH ×2 (09:05→17:24)
[2020-08-03] MEDS: CALCIUM ACETATE 667 MG TABLET GT SCH ×3 (09:05→17:24)
[2020-08-03] MEDS: PANTOPRAZOLE 40 MG/PACK PACK GT SCH (09:06)
--- NOTE | 2020-08-03 10:08 | NUR ---
NURSING SUP GAVE 113-1 TELE.
--- NOTE | 2020-08-03 10:26 | NUR ---
REPORT GIVEN TO DANIEL FORREST OF TELE UNIT
--- NOTE | 2020-08-03 11:55 | NUR ---
RECEIVED PATENT FROM ER NURSE AT [address]. PATIENT IS VENT DEPENDENT WITH PORTEX 8, AC 14, TV 500, FIO2 40 %, AND PEEP 5. PATIENT G-TUBE INTACT AND NO RESIDUAL. PATIENT WAS ADMITTED FOR HD CATHETER MALFUNCTION AND DX OF SEPSIS. LAST DIALYSIS WAS Tuesday07-29-20 WITH SCHEDULE OF S. LEFT HAND #20 G INTACT AND PATENT. PATIENT IS BED BOUND WITH BILATERAL HEEL WOUNDS, SACRAL WOUND, AND RIGHT 3RD TOE WOUND. SAFETY PRECAUTIONS IMPLEMENTED, BED LOCKED IN LOWEST POSITION, SIDE RAILS UP X2, CALL LIGHT WITHIN REACH. WILL CONTINUE TO MONITOR AND PROVIDE CARE THROUGHOUT SHIFT.
[2020-08-03 12:00] VITALS: BP 102/68
[2020-08-03 13:00] VITALS: BP 102/68
[2020-08-03 16:00] VITALS: BP 97/66
[2020-08-03 17:00] VITALS: BP 97/66
[2020-08-03] MEDS: NEPRO 1,000 ML BOTTLE GT PRN (17:41)
--- NOTE | 2020-08-03 19:02 | NUR ---
RN CLOSING NOTE PATENT IN BED RESTING COMFORTABLY. PATIENT IS VENT DEPENDENT WITH PORTEX 8, AC 14, TV 500, FIO2 40 %, AND PEEP 5. PATIENT G-TUBE INTACT AND NO RESIDUAL. PATIENT WAS ADMITTED FOR HD CATHETER MALFUNCTION AND DX OF SEPSIS. LAST DIALYSIS WAS Tuesday07-29-20 WITH SCHEDULE OF . LEFT HAND #20 G INTACT AND PATENT. PATIENT IS BED BOUND WITH BILATERAL HEEL WOUNDS, SACRAL WOUND, AND RIGHT 3RD TOE WOUND. SAFETY PRECAUTIONS IMPLEMENTED, BED LOCKED IN LOWEST POSITION, SIDE RAILS UP X2, CALL LIGHT WITHIN REACH. WILL ENDORSE CARE TO UPCOMING SHIFT.
--- NOTE | 2020-08-03 19:40 | NUR ---
RN OPENING NOTES RECEIVED PT IN BED AWAKE, TRACH TO VENT, PORTEX 8 AC 14 TV 500 FIO2 30% PEEP 5. TOLERATING WELL. NO RESP DISTRESS OR SOB AT THIS TIME. PT BREATHING IS EVEN AND UNLABORED. PT ON TELE MONITOR IS NSR. HR 80S. IV SITE FLUSHED. PT IS AFEBRILE AT THIS TIME. ISOLATION PRECAUTIONS IN PLACE. SAFETY MEASURES IN PLACE. HOB ELEVATED TOLERATED. SIDE RAILS UP X2. BED IS LOCKED IN LOWEST POSITION. CALL LIGHT WITHIN REACH. WILL CONT TO MONITOR.
--- NOTE | 2020-08-03 19:52 | NUR ---
RT pt received on mechanical vent with current settings. trached, shiley 8 cuffed. vent plugged in to red outlet. trach secure. airway patent. spare trach at bedside. ambu bag at [facility]. alarms on and audible. small yellow thick secretions suctioned via trach. no sob, no resp distress at this time. will continue to monitor.
[2020-08-03 21:00] VITALS: BP 96/61
[2020-08-03] MEDS: VIT B CMPLX 3/FA/VIT C/BIOTIN 1 TAB TABLET GT SCH (21:02)
--- NOTE | 2020-08-03 22:00 | NUR ---
UPON ROUNDS, PT NOTED TO HAVE PULLED OUT IV. WILL ATTEMPT REINSERTION.
[2020-08-04] VITALS: BP 90/59
[2020-08-04] MEDS: BLOOD SUGAR DIAGNOSTIC 1 EACH STRIP IN SCH ×4 (00:11→18:11)
--- NOTE | 2020-08-04 02:01 | NUR ---
UNABLE TO PLACE NEW IV SITE, MULTIPLE RN WITH MULTIPLE IV ATTEMPTS. NURSING SUP INFORMED. DELINQUENCY PREVENTION SOCIAL WORKER [facility] INFORMED OF LACK OF IV SITE AND PT MISSING [phone] ZOSYN ABX. ORDER FOR MIDLINE PLACED, WILL [id number] TO AM SHIFT. WILL CONT TO MONITOR AT THIS TIME.
[2020-08-04 04:00] VITALS: BP 105/70
[2020-08-04] MEDS: NEPRO 1,000 ML BOTTLE GT PRN (06:12)
--- NOTE | 2020-08-04 07:29 | NUR ---
RN CLOSING NOTES PT REMAINS STABLE, STILL ON SAME ORDERED VENT SETTINGS. NO SOB NO RESP DISTRESS. PT IS AFEBRILE, NO S/S OF PAIN. NO IV ACCESS AWAITING MIDLINE. [employer]AURANT MANAGING PARTNER MADE AWARE, AM SHIFT NURSE MADE AWARE. SAFETY MEASURES IN PLACE. HOB ELEVATED. SIDE RAILS UP X2, BED LOCKED LOWEST POSITION. ENDORSED TO LIZABETH FOR CONTINUATION OF CARE.
--- NOTE | 2020-08-04 07:30 | NUR ---
RN OPENING NOTE PATIENT IS IN BED WITH HOB AT SEMIFOWLER'S POSITION. PATIENT IS NONVERBAL WITH SPONTANEOUS OPENING OF THE EYES. TRACHEOSTOMY IS IN PLACE. RESPIRATIONS ARE UNLABORED. SACRAL ULCER, RIGHT 3RD TOE, R HEEL, L HEEL, AND MULTIPLE DIABETIC ULCERS BILATERALLY ON FEET HAVE BEEN NOTED. L CAR PERMA CATH HAS BEEN NOTED. GTUBE IS IN PLACE. BED IS LOCKED IN THE LOWEST POSITION, CALL COATES WITHIN REACH, 3 GUARD RAILS RAISED, AND ALL HOSPITAL SAFETY PRECAUTIONS ARE BEING FOLLOWED. WILL CONTINUE TO MONITOR THROUGHOUT SHIFT.
[2020-08-04 07:36] LABS: CALCIUM, SERUM 11.5 mg/dL (8.5-10.1); POTASSIUM 4.8 mmol/L (3.5-5.1)
[2020-08-04 08:00] VITALS: BP 99/68
--- NOTE | 2020-08-04 08:00 | NUR ---
FAMILY DAY CARE PROVIDER NOTE PATIENT IS AWAITING MIDLINE INSERTION TODAY AT 1999. NICOLASA ASH.
[2020-08-04 08:04] LABS: CREATININE 14.6 mg/dL (0.6-1.3)
[2020-08-04] MEDS: PANTOPRAZOLE 40 MG/PACK PACK GT SCH (09:00)
[2020-08-04] MEDS: ATENOLOL 25 MG TABLET GT SCH (09:00)
[2020-08-04] MEDS: CALCIUM ACETATE 667 MG TABLET GT SCH ×3 (09:00→16:31)
[2020-08-04] MEDS: ACIDOPHILUS/BULGARICUS 1 EACH TAB.CHEW GT SCH ×2 (09:00→21:06)
[2020-08-04] MEDS: DOCUSATE SODIUM LIQ 100 MG/10 ML UDC GT SCH ×2 (09:00→16:31)
--- NOTE | 2020-08-04 09:02 | NUR ---
SHOP FIRER/FIREMAN NOTE ATENOLOL HELD FOR BP OF 99/68. WILL CONTINUE TO MONITOR.
[2020-08-04 12:00] VITALS: BP 101/72
--- NOTE | 2020-08-04 12:00 | NUR ---
PLUSH DRESSER NOTE TUBE FEEDING HAS BEEN STOPPED. WILL RESUME AGAIN AT 1800.
[2020-08-04 16:00] VITALS: BP 107/75
--- NOTE | 2020-08-04 16:00 | NUR ---
JAIL KEEPER NOTE PATIENT IS AWAITING MIDLINE INSERTION TODAY AT 1999. NICOLASA ASH.
--- NOTE | 2020-08-04 19:20 | NUR ---
RN OPENING NOTE RECEIVED PATIENT IN BED RESTING NONVERBAL OPEN EYES, ON MECHANICAL VENT WITH SETTING TRACH PORTEX #8 AC 14 TV 500 FIO2 30% PEEP 8 O2:100% ON FEEDING TUBE NEPHRO 70CC/HR CHECKED PLACEMENT IN PLACE NO RESIDUAL NOTED,HEAD OF THE BED ELEVATED,NO IV SITE NOTED LEFT PERM-CATH FOR DIALYSIS MALFUNCTIONED,PATIENT HAS MULTIPLIES WOUND ON HEELS AND SACRAL AREA,SAFETY MEASURE IMPLEMENT CONTINUE TO MONITOR.
--- NOTE | 2020-08-04 19:38 | NUR ---
RT pt received on mechanical vent with current settings. trached, shiley 8 cuffed. vent plugged in to red outlet. trach secure. airway patent. spare trach at bedside. ambu bag at [facility]. alarms on and audible. small yellow thick secretions suctioned via trach. no sob, no resp distress at this time. will continue to monitor.
--- NOTE | 2020-08-04 19:46 | NUR ---
RN CLOSING NOTE PATIENT IS IN BED WITH HOB AT SEMI FOWLERS POSITION. PATIENT'S BREATHING PATTERN IS UNLABORED WITH APPROPRIATE O2 SATURATION. PATIENT IS NONVERBAL WITH SPONTANEOUS OPENING OF THE EYES. TRACHEOSTOMY IS IN PLACE. SACRAL ULCER, RIGHT 3RD TOE, R HEEL, L HEEL, AND MULTIPLE DIABETIC ULCERS BILATERALLY ON FEET HAVE BEEN NOTED. GTUBE IS IN PLACE. BED IS LOCKED IN THE LOWEST POSITION, CALL COATES WITHIN REACH, 3 GUARD RAILS RAISED, AND ALL HOSPITAL SAFETY PRECAUTIONS ARE BEING FOLLOWED. ENDORSED TO FOOT PRESS OPERATOR RN MARÍA ELENA FOR CONTINUUM OF CARE.
[2020-08-04 20:00] VITALS: BP 108/66
--- NOTE | 2020-08-04 20:00 | NUR ---
RN NOTE INSERTED MIDLINE ON RIGHT UPPER ARM #18 CONTINUE TO MONITOR.
[2020-08-04] MEDS: PIPERACILLIN /TAZOBACTAM 2.25 G in IV D5W 50 ML IV SCH ×3 (20:18)
[2020-08-04] MEDS: VIT B CMPLX 3/FA/VIT C/BIOTIN 1 TAB TABLET GT SCH (21:08)
[2020-08-05] VITALS (7 sets, daily range): BP systolic 98–125; BP diastolic 67–71
[2020-08-05] MEDS: BLOOD SUGAR DIAGNOSTIC 1 EACH STRIP IN SCH ×5 (00:06→23:50)
[2020-08-05] MEDS: INSULIN REGULAR, HUMAN 100 UNIT/ML 3 ML VIAL SQ PRN ×2 (00:07→23:50)
[2020-08-05] MEDS: PIPERACILLIN /TAZOBACTAM 2.25 G in IV D5W 50 ML IV SCH ×3 (04:10→21:35)
--- NOTE | 2020-08-05 06:46 | NUR ---
RN CLOSING NOTE PATIENT REMAINS ON ALERT NON VERBAL OPEN EYES,ON MECHANICAL VENT SETTING THE SAME NO CHANGES NOTED,NO SOB NO ACUTE DISTRESS NOTED,IV SITE IS ON RIGHT UPPER ARM MIDLINE INTACT PATENT ALL DUE MEDS GIVEN MD ORDERED KEPT CLEAN AND DRY ALL THE TIME,HEAD OF THE BED ELEVATED,ENDORSE NEXT COMING SHIFT FOR CONTINUATION OF CARE.
[2020-08-05 07:46] LABS: BASOPHILS % (AUTO) 0.4 % (0.0-2.0); EOSINOPHILS % (AUTO) 3.5 % (0.0-6.0); HEMATOCRIT 29 % (39-51); HEMOGLOBIN 9.8 g/dL (13.5-17.5); LYMPHOCYTES # (AUTO) 1.7 /CMM (0.8-4.8); LYMPHOCYTES % (AUTO) 14.5 % (20.0-44.0); MEAN CORPUSCULAR HGB CONC 33 g/dl (31.0-36.0); MEAN CORPUSCULAR VOLUME 101 fL (80-96); MONOCYTES # (AUTO) 1.3 /CMM (0.1-1.30); MONOCYTES % (AUTO) 10.7 % (2.0-12.0); NEUTROPHILS # (AUTO) 8.3 /CMM (1.8-8.9); NEUTROPHILS % (AUTO) 70.9 % (43.0-81.0); PLATELET COUNT (AUTO) 184 /CMM (150-450); WHITE BLOOD COUNT (AUTO) 11.7 K/uL (4.3-11.0)
[2020-08-05 08:31] LABS: ALBUMIN 2.7 g/dL (3.4-5.0); BILIRUBIN,TOTAL 0.6 mg/dL (0.2-1.0); CALCIUM, SERUM 11.7 mg/dL (8.5-10.1); PHOSPHORUS 3.1 mg/dL (2.5-4.9); POTASSIUM 4.7 mmol/L (3.5-5.1); TOTAL PROTEIN, SERUM 7.1 g/dL (6.4-8.2)
[2020-08-05] MEDS: DOCUSATE SODIUM LIQ 100 MG/10 ML UDC GT SCH ×2 (09:00→17:00)
[2020-08-05] MEDS: ACIDOPHILUS/BULGARICUS 1 EACH TAB.CHEW GT SCH ×2 (09:00→21:36)
[2020-08-05] MEDS: ATENOLOL 25 MG TABLET GT SCH (09:00)
[2020-08-05] MEDS: CALCIUM ACETATE 667 MG TABLET GT SCH ×3 (09:00→17:00)
[2020-08-05] MEDS: PANTOPRAZOLE 40 MG/PACK PACK GT SCH (09:00)
--- NOTE | 2020-08-05 09:00 | NUR ---
PT TRANSFERRED TO 3W RN ROOM 319
--- NOTE | 2020-08-05 09:00 | NUR ---
UKRAINIAN FOLK ARTS INSTRUCTOR NOTES RECEIVED PT FROM RIMMA LON MUNOZ VIA BED, PT IS AWAKE, NON VERBAL, NO SIGN OF PAIN OR DISTRESS, ON VENT/TRACH, GT IN PLACE, KEPT NPO FOR HD CATH REPLACEMENT TODAY, NSR ON THE MONITOR, KEPT WARM AND COMFORTABLE, VITALS TAKEN AND RECORDED.
[2020-08-05 09:45] LABS: CREATININE 15.8 mg/dL (0.6-1.3); MAGNESIUM 4.9 mg/dL (1.8-2.4)
--- NOTE | 2020-08-05 10:28 | NUR ---
WOUND CARE CONSULT: PT RESTING AT THIS TIME. REVIEWED CHART, NURSING DOCUMENTATION AND PHOTOS WHICH INDICATE NECROTIC SACRAL WOUND AND LOWER EXTREMITY WOUNDS, PRESENT ON ADMISSION. RECOMMEND SURGICAL AND DPM CONSULTS. DR MARIEE AND DR LAM NOTIFIED OF CONSULT REQUESTS. DISCUSSED SKIN PROTECTION WITH NURSING STAFF. MD IN AGREEMENT WITH PLAN OF CARE. PT IS ON [facility]FLEX LOW AIRLOSS BED.
[2020-08-05] MEDS ORDERED: Z GUARD REMEDY 2 OZ OINT TP PRN (10:30)
[2020-08-05] MEDS: Z GUARD REMEDY 2 OZ OINT TP SCH (11:15)
[2020-08-05] MEDS ORDERED: ANESTHESIA TRAY IN PYXIS 1 EA TRAY MC ONE (14:05)
[2020-08-05] MEDS ORDERED: BUPIVACAINE 0.5 % PF 150 MG/30 ML VIAL ONE (16:30)
[2020-08-05] MEDS ORDERED: HEPARIN SODIUM, PORCINE 1,000 UNIT/ML VIAL ONE (16:30)
[2020-08-05] MEDS ORDERED: BUPIVACAINE 0.25% 75 MG/30 ML VIAL ONE (16:30)
[2020-08-05] MEDS ORDERED: LIDOCAINE 1% INJ 50 ML MDV IJ ONE (16:31)
[2020-08-05] MEDS ORDERED: IOHEXOL 240MG/ML 0 ML IV ONE (16:31)
--- NOTE | 2020-08-05 17:15 | NUR ---
PATIENT'S LIBRARIAN NOTES PT PICKED UP BY O.R. STAFF FOR PERMACATH PLACEMENT, VIA BED, NO SIGN OF PAIN OR DISTRESS, FAMILY AWARE, CONSENTS GIVEN.
--- NOTE | 2020-08-05 18:30 | NUR ---
POULTRY HELPER NOTES PT BACK FROM O.R. VIA BED, S/P PERMACATH PLACEMENT BY DR. Laura ART, PT SLEEPY, NOT IN DISTRESS, VITALS STABLE, O.R. NURSE AT BEDSIDE, AWAITING POST OP ORDERS FROM .
--- NOTE | 2020-08-05 19:08 | NUR ---
RN CLOSING NOTE PT IS NONVERBAL, AROUSABLE TO LIGHT PAIN. CURRENTLY ON TRACH WITH NO RESPIRATORY DISTRESS PRESENT. O2 SAT HIGH 90'S TO 100. NORMAL SINUS RHYTHM VIA EXTERNAL MONITOR. PT IS CURRENTLY ON BED REST. ULCERS PRESENT ON FEET BILATERALLY AND ON THE SACRUM. CURRENTLY ON BED REST. G TUBE PRESENT. NEPHRO RUNNING AT 70 CC/HW. MIDLINE PRESENT IN RIGHT UPPER ARM. HD PERMACATH IN L CHEST WALL. SAFETY MEASURES IN PLACE. SIDE RAILS RAISED. BED LOWERED. CALL LIGHT WITHIN REACH. ROUTINE MEDS GIVEN. REPORT GIVEN TO NIGHT NURSE.
[2020-08-05] MEDS: NEPRO 1,000 ML BOTTLE GT PRN (19:28)
--- NOTE | 2020-08-05 20:18 | NUR ---
KNIFE SHARPENER OPENING NOTES PATIENT A/O X0; NONVERBAL; OPENS EYES TO LIGHT TOUCH. ON VENT AND TOLERATING SETTINGS WELL WITH O2SAT 100%. ON EXTERNAL CARDIAC TELE MONITORING; READS SINUS FUNMI AT 59. MIDLINE ON ALEX PATENT AND INTACT. S/P PROCEDURE ON L UPPER CHEST PERMATH REPLACEMENT; PATENT AND INTACT; DRESSING C/D/I. GTUBE PEG PATENT AND INTACT; NEPHRO @ 70 ML/HR; TOLERATING WELL. SAFETY MEASURES IN PLACE; BED IN LOWEST LOCKED POSITION; SIDE RAILS UP X2; CALL LIGHT WITHIN REACH, BED ALARMS ON. WILL CONTINUE PLAN OF CARE.
[2020-08-05] MEDS: VIT B CMPLX 3/FA/VIT C/BIOTIN 1 TAB TABLET GT SCH (21:35)
[2020-08-06] VITALS (7 sets, daily range): BP systolic 108–134; BP diastolic 58–83
--- NOTE | 2020-08-06 01:27 | NUR ---
[employer] WEBSPHERE PORTAL DEVELOPER NOTES RENEWED ACUTE BILATERAL SOFT RESTRAINT ORDERS FOR SAFETY PRECAUTIONS. BILATERAL SOFT RESTRAINT ON; NO SKIN BREAK DOWN; GOOD CIRCULATION NOTED. WILL CONTINUE TO ASSESS PATIENT.
--- NOTE | 2020-08-06 04:29 | NUR ---
RT NOTE Pt rec'd trached on [facility] vent on AC mode settings as charted. pt shows no signs of resp distress or sob. Pt sx'd for small amt of clear secretions. Alarms are set and audible. Vent plugged into red outlet. Ambu bag bedside. Will continue to monitor. Addendum: 08/06/20 at 0431 by EFRAIN PATTERSON RT Amended: Links added.
[2020-08-06] MEDS: PIPERACILLIN /TAZOBACTAM 2.25 G in IV D5W 50 ML IV SCH ×3 (05:42→21:47)
[2020-08-06] MEDS: INSULIN REGULAR, HUMAN 100 UNIT/ML 3 ML VIAL SQ PRN (05:56)
[2020-08-06] MEDS: BLOOD SUGAR DIAGNOSTIC 1 EACH STRIP IN SCH ×4 (05:56→23:27)
--- NOTE | 2020-08-06 07:30 | NUR ---
HEAD KILN OPERATOR NOTES PT IN BED, RESTING, NO SIGN OF PAIN OR DISTRESS, GT FEEDING INFUSING WELL, ON VENT/TRACH, NO SOB, KEPT WARM AND COMFORTABLE IN BED.
--- NOTE | 2020-08-06 07:51 | NUR ---
RAIL DETECTOR CAR OPERATOR CLOSING NOTES PATIENT A/O X0; NONVERBAL; OPENS EYES TO LIGHT TOUCH. ON VENT AND TOLERATING SETTINGS WELL WITH O2SAT 100%. ON EXTERNAL CARDIAC TELE MONITORING; READS SINUS RHYTHM AT 60'S. MIDLINE ON ALEX PATENT AND INTACT. S/P PROCEDURE ON L UPPER CHEST PERMATH REPLACEMENT; PATENT AND INTACT; DRESSING C/D/I. GTUBE PEG PATENT AND INTACT; NEPHRO @ 70 ML/HR; TOLERATING WELL. SAFETY MEASURES IN PLACE; BED IN LOWEST LOCKED POSITION; SIDE RAILS UP X2; CALL LIGHT WITHIN REACH, BED ALARMS ON. ENDORSES DENNIS TO ONCOMING RN
[2020-08-06 08:35] LABS: CALCIUM, SERUM 10.9 mg/dL (8.5-10.1); POTASSIUM 4.8 mmol/L (3.5-5.1)
[2020-08-06] MEDS: ACIDOPHILUS/BULGARICUS 1 EACH TAB.CHEW GT SCH ×2 (08:58→21:45)
[2020-08-06] MEDS: DOCUSATE SODIUM LIQ 100 MG/10 ML UDC GT SCH ×2 (08:58→16:08)
[2020-08-06] MEDS: PANTOPRAZOLE 40 MG/PACK PACK GT SCH (08:59)
[2020-08-06] MEDS: CALCIUM ACETATE 667 MG TABLET GT SCH ×3 (08:59→16:08)
[2020-08-06] MEDS: ATENOLOL 25 MG TABLET GT SCH (08:59)
[2020-08-06] MEDS: Z GUARD REMEDY 2 OZ OINT TP SCH (09:03)
[2020-08-06] MEDS: THERAHONEY GEL 1.5 OZ TUBE TP SCH (09:03)
[2020-08-06] MEDS: NEPRO 1,000 ML BOTTLE GT PRN (09:05)
[2020-08-06] MEDS ORDERED: ALBUMIN 25% 50 GM in PREMIX 1 EA IV PRN (10:00)
[2020-08-06] MEDS: ALBUMIN 25% 25 GM in PREMIX 1 EA IV PRN (10:20)
[2020-08-06] MEDS: VANCOMYCIN 500 MG in IV D5W 100 ML IV PRN (15:31)
--- NOTE | 2020-08-06 16:52 | NUR ---
FIRE HOSE CURER NOTES NOTED WITH BLEEDING ON NEW PERMACATH INSERTION SITE, VINAYAK METAL DRILL OPERATOR FOR DR. KEITH ART INFORMED, DRESSING CHANGE DONE, WILL CONTINUE TO MONITOR.
--- NOTE | 2020-08-06 18:51 | NUR ---
BAND LOG MILL AND CARRIAGE OPERATOR NOTES PT IN BED, RESTING, NO SIGN OF PAIN OR DISTRESS, GT FEEDING INFUSING WELL, STILL WITH BLEEDING TO NEW PERMACATH SITE, DRESSING CHANGE DONE BY VINAYAK MANAGER OF BROADCAST CONTENT, PM CARE PROVIDED, PM MEDS GIVEN ORDERED, COMPLETED HEMODIALYSIS TODAY WITH 900ML OUTPUT, SACRAL AND BILATERAL HEEL WOUND DEBRIDEMENT DONE TODAY, TOLERATED WELL, KEPT STAMP MACHINE SERVICER BED.
--- NOTE | 2020-08-06 19:30 | NUR ---
DREDGE LEVER OPERATOR OPENING NOTES PATIENT A/O X0, NON-VERBAL, OPENS EYES TO LIGHT AND TOUCH. ON VENT AND TOLERATING SETTINGS WELL WITH O2 SAT 100%. ON EXTERNAL CARDIAC TELE MONITORING, READS SR. MIDLINE ON ALEX PATENT AND INTACT. TURNED AND REPOSITIONED FOR WOUND MANAGEMENT. GT PEG PATENT AND INTACT, ON NEPHRO @ 70 ML/HR, TOLERATING WELL. HOB ELEVATED AT ALL TIMES. SAFETY MEASURES IN PLACE, BED IN LOWEST LOCKED POSITION; SIDE RAILS UP X2, CALL LIGHT WITHIN REACH. WILL CONTINUE PLAN OF CARE. Addendum: 08/07/20 at 0235 by PAO PATEL RN STILL NOTED WITH BLEEDING TO NEW PERMA CATH SITE. AMBULETTE DRIVER AWARE
[2020-08-06] MEDS: ONDANSETRON HCL/PF 4 MG/2 ML VIAL IVP PRN (20:02)
--- NOTE | 2020-08-06 20:02 | NUR ---
TELE-RN NOTES: ADMINISTERED ZOFRAN 4MG IV FOR NAUSEA/VOMITING X1. HOB ELEVATED AT ALL TIMES. ORAL CARE RENDERED. WILL CONTINUE TO MONITOR.
[2020-08-06] MEDS: VIT B CMPLX 3/FA/VIT C/BIOTIN 1 TAB TABLET GT SCH (21:45)
[2020-08-07] VITALS: BP 133/76
[2020-08-07 04:00] VITALS: BP 125/75
[2020-08-07] MEDS: PIPERACILLIN /TAZOBACTAM 2.25 G in IV D5W 50 ML IV SCH ×3 (04:00→21:39)
[2020-08-07] MEDS: BLOOD SUGAR DIAGNOSTIC 1 EACH STRIP IN SCH ×3 (05:19→17:32)
--- NOTE | 2020-08-07 06:20 | NUR ---
REMOTE SENSING ANALYST CLOSING NOTES: PATIENT IS A/OX0, NON-VERBAL, OPENS EYES TO TOUCH. ON MECHANICAL VENT TOLERATING WELL. ON EXTERNAL CARDIAC TELE MONITORING, READS SR 80. MIDLINE ON ALEX PATENT AND INTACT. TURNED AND REPOSITIONED FOR WOUND MANAGEMENT. WILL CONTINUE TO MONITOR FOR BLEEDING ON IJ AREA FOR S/P REPLACEMENT OF PERMA CATH. BLEEDING STILL NOTED. DRESSING INTACT, MD AWARE. PEG TUBE PATENT AND INTACT. ON NEPHRO @ 70ML/HR, TOLERATING WELL. HOB ELEVATED AT ALL TIMES. SAFETY MEASURES IN PLACE, BED IN LOWEST POSITION. BRAKES LOCKED, SIDE RAILS UP X2, CALL LIGHT WITHIN REACH. WILL ENDORSE TO DAY SHIFT NURSE FOR CONTINUITY OF CARE.
--- NOTE | 2020-08-07 07:30 | NUR ---
RN OPENING NOTES PATIENT IS NON-VERBAL, OPENS EYES TO TOUCH. ON MECHANICAL VENT TOLERATING WELL. MIDLINE ON ALEX PATENT AND INTACT. WILL CONTINUE TO MONITOR FOR BLEEDING ON LEFT UPPER CHEST AREA FOR S/P REPLACEMENT OF PERMA CATH. BLEEDING STILL NOTED. DRESSING INTACT, MD AWARE. PEG TUBE PATENT AND INTACT. ON NEPHRO @ 70ML/HR, TOLERATING WELL. HOB ELEVATED AT ALL TIMES. SAFETY PRECAUTION IMPLEMENTED. BED LOCKED IN LOWEST POSITION, SIDE RAILS UP X2, CALL LIGHT WITHIN REACH. WILL CONTINUE TO MONITOR AND PROVIDE CARE THROUGHOUT SHIFT.
[2020-08-07] MEDS: NEPRO 1,000 ML BOTTLE GT PRN (07:31)
[2020-08-07 08:02] LABS: BASOPHILS # (AUTO) 0.1 /CMM (0.0-0.2); BASOPHILS % (AUTO) 0.3 % (0.0-2.0); EOSINOPHILS % (AUTO) 2.2 % (0.0-6.0); HEMATOCRIT 27 % (39-51); HEMOGLOBIN 8.9 g/dL (13.5-17.5); LYMPHOCYTES # (AUTO) 1.4 /CMM (0.8-4.8); LYMPHOCYTES % (AUTO) 8.8 % (20.0-44.0); MEAN CORPUSCULAR HGB CONC 33 g/dl (31.0-36.0); MEAN CORPUSCULAR VOLUME 102 fL (80-96); MONOCYTES # (AUTO) 1.1 /CMM (0.1-1.30); NEUTROPHILS # (AUTO) 13.2 /CMM (1.8-8.9); NEUTROPHILS % (AUTO) 81.7 % (43.0-81.0); PLATELET COUNT (AUTO) 171 /CMM (150-450); RED BLOOD CELL COUNT(AUTO) 2.67 MIL/uL (4.5-6.0); WHITE BLOOD COUNT (AUTO) 16.2 K/uL (4.3-11.0)
[2020-08-07 08:29] LABS: ALBUMIN 3.3 g/dL (3.4-5.0); BILIRUBIN,TOTAL 0.7 mg/dL (0.2-1.0); CALCIUM, SERUM 10.6 mg/dL (8.5-10.1); PHOSPHORUS 3.6 mg/dL (2.5-4.9); POTASSIUM 5.1 mmol/L (3.5-5.1); TOTAL PROTEIN, SERUM 7.6 g/dL (6.4-8.2)
[2020-08-07 08:37] VITALS: BP 101/78
[2020-08-07 08:44] LABS: CREATININE 13.4 mg/dL (0.6-1.3)
[2020-08-07 08:45] LABS: MAGNESIUM 4.3 mg/dL (1.8-2.4)
[2020-08-07] MEDS: ATENOLOL 25 MG TABLET GT SCH (09:00)
[2020-08-07] MEDS: THERAHONEY GEL 1.5 OZ TUBE TP SCH (09:00)
[2020-08-07] MEDS: Z GUARD REMEDY 2 OZ OINT TP SCH (09:00)
[2020-08-07] MEDS ORDERED: CELLULOSE,OXIDIZED 1 EA PACK MC ONE (09:50)
[2020-08-07] MEDS: DOCUSATE SODIUM LIQ 100 MG/10 ML UDC GT SCH ×2 (09:59→17:25)
[2020-08-07] MEDS: PANTOPRAZOLE 40 MG/PACK PACK GT SCH (09:59)
[2020-08-07] MEDS: CALCIUM ACETATE 667 MG TABLET GT SCH ×3 (09:59→17:24)
[2020-08-07] MEDS: ACIDOPHILUS/BULGARICUS 1 EACH TAB.CHEW GT SCH ×2 (09:59→21:38)
[2020-08-07] MEDS: ALBUMIN 25% 25 GM in PREMIX 1 EA IV PRN ×2 (10:04→10:21)
[2020-08-07] MEDS ORDERED: POTASSIUM CHLORIDE 20 MEQ POWDER PACKET GT ONE (10:30)
[2020-08-07 16:03] VITALS: BP 114/67
[2020-08-07] MEDS: INSULIN REGULAR, HUMAN 100 UNIT/ML 3 ML VIAL SQ PRN (17:34)
--- NOTE | 2020-08-07 19:32 | NUR ---
RN OPENING NOTES PATIENT RECEIVED BEDSIDE. PATIENT IS ALERT AND ORIENTED X0. PATIENT IS NON-VERBAL, OPENS EYES TO TOUCH. ON MECHANICAL VENT TOLERATING WELL. MIDLINE ON ALEX PATENT AND INTACT. WILL CONTINUE TO MONITOR FOR BLEEDING ON LEFT UPPER CHEST AREA FOR S/P REPLACEMENT OF PERMA CATH. DRESSING INTACT, MD AWARE. DRESSING WAS CHANGED BY SHELF DRIER OPERATOR IN THE MORNING SHIFT. PEG TUBE PATENT AND INTACT. ON NEPHRO @ 70ML/HR, TOLERATING WELL. NEED FOR CONSENT FOR WOUND DEBRIDEMENT IN AM SHIFT TOMORROW. WILL CONTACT FAMILY FOR FOLLOW UP. HOB ELEVATED AT ALL TIMES. SAFETY PRECAUTION IMPLEMENTED. BED LOCKED IN LOWEST POSITION, SIDE RAILS UP X2, CALL LIGHT WITHIN REACH. WILL CONTINUE TO MONITOR AND PROVIDE CARE THROUGHOUT SHIFT.
[2020-08-07 20:00] VITALS: BP 112/54
[2020-08-07] MEDS: VIT B CMPLX 3/FA/VIT C/BIOTIN 1 TAB TABLET GT SCH (21:38)
[2020-08-08] VITALS (10 sets, daily range): BP systolic 105–124; BP diastolic 59–83
[2020-08-08] MEDS: BLOOD SUGAR DIAGNOSTIC 1 EACH STRIP IN SCH ×4 (00:29→18:12)
[2020-08-08] MEDS: DEXTROSE 50%-WATER 50 ML DISP.SYRIN IV PRN ×2 (00:44→07:01)
--- NOTE | 2020-08-08 02:27 | NUR ---
RN NOTE- BLOOD SUGAR PT VOMITED EARLIER IN THE SHIFT AT 0000 BLOOD SUGAR WAS 51. ADMIN DEXTROSE 50% SYRINGE. REASSESSED BLOOD SUGAR WAS 66. ADMIN ORANGE JUICE THROUGH G TUBE. WILL REASSESS BLOOD SUGAR.
[2020-08-08] MEDS: PIPERACILLIN /TAZOBACTAM 2.25 G in IV D5W 50 ML IV SCH ×3 (06:28→21:39)
--- NOTE | 2020-08-08 07:59 | NUR ---
FEDERAL AIR MARSHAL CLOSING NOTE PATIENT IS IN BED RESTING. PATIENT IS IN NO ACUTE DISTRESS. PATIENT IS ON 15L NON-REBREATHER MASK. NO SOB NOTED. PATIENT IS ON TELE MONITOR READING SR 83. SAFETY PRECAUTIONS ARE IN PLACE. BED IN THE LOWEST POSITION, SIDE RAILS ARE UP. CALL LIGHT WITHIN REACH. WILL CONTINUE TO MONITOR CLOSELY. WILL ENDORSE TO UPCOMING SHIFT.
--- NOTE | 2020-08-08 08:00 | NUR ---
WAREHOUSE CLERK OPENING NOTES PATIENT IN BED. NON VERBAL, OPENS EYES. TRACH WITH VENT SETTINGS AC 14 TV 500 FIO2 30% PEEP 6. GTF NEPRO @ 70 ML/HR. IV ACCESS ON ALEX MIDLINE. LCW PERMA CATH. SAFETY MEASURES MAINTAINED. BED IN LOWEST POSITION, BRAKES LOCKED. SIDE RAILS UP X2. CALL LIGHT WITHIN REACH. WILL CONTINUE PLAN OF CARE.
[2020-08-08] MEDS: INSULIN REGULAR, HUMAN 100 UNIT/ML 3 ML VIAL SQ PRN (08:21)
[2020-08-08 08:23] LABS: CALCIUM, SERUM 9.4 mg/dL (8.5-10.1); POTASSIUM 4.4 mmol/L (3.5-5.1)
[2020-08-08 08:25] LABS: CREATININE 9.6 mg/dL (0.6-1.3)
[2020-08-08] MEDS: ATENOLOL 25 MG TABLET GT SCH (09:00)
[2020-08-08 09:08] LABS: ALBUMIN 3.1 g/dL (3.4-5.0); BILIRUBIN,DIRECT 0.2 mg/dL (0.0-0.2); BILIRUBIN,TOTAL 0.7 mg/dL (0.2-1.0); MAGNESIUM 3.2 mg/dL (1.8-2.4); PHOSPHORUS 2.5 mg/dL (2.5-4.9); TOTAL PROTEIN, SERUM 6.3 g/dL (6.4-8.2)
[2020-08-08] MEDS: Z GUARD REMEDY 2 OZ OINT TP SCH (09:51)
[2020-08-08] MEDS: THERAHONEY GEL 1.5 OZ TUBE TP SCH (09:51)
[2020-08-08] MEDS: ACIDOPHILUS/BULGARICUS 1 EACH TAB.CHEW GT SCH ×2 (09:53→21:39)
[2020-08-08] MEDS: CALCIUM ACETATE 667 MG TABLET GT SCH ×3 (09:53→18:10)
[2020-08-08] MEDS: DOCUSATE SODIUM LIQ 100 MG/10 ML UDC GT SCH ×2 (09:53→18:10)
[2020-08-08] MEDS: PANTOPRAZOLE 40 MG/PACK PACK GT SCH (09:53)
[2020-08-08 10:05] LABS: BASOPHILS # (AUTO) 0.1 /CMM (0.0-0.2); BASOPHILS % (AUTO) 0.5 % (0.0-2.0); LYMPHOCYTES # (AUTO) 1.9 /CMM (0.8-4.8); LYMPHOCYTES % (AUTO) 11.2 % (20.0-44.0); MEAN CORPUSCULAR HGB CONC 33 g/dl (31.0-36.0); MEAN CORPUSCULAR VOLUME 102 fL (80-96); MONOCYTES # (AUTO) 1.5 /CMM (0.1-1.30); NEUTROPHILS # (AUTO) 12.8 /CMM (1.8-8.9); NEUTROPHILS % (AUTO) 76.3 % (43.0-81.0); PLATELET COUNT (AUTO) 131 /CMM (150-450); WHITE BLOOD COUNT (AUTO) 16.8 K/uL (4.3-11.0)
[2020-08-08 10:07] LABS: RED BLOOD CELL COUNT(AUTO) 1.73 MIL/uL (4.5-6.0)
--- NOTE | 2020-08-08 10:15 | NUR ---
LAB SCIENTIST NOTES LAB CALLED REGARDING CRITICAL LAB VALUE OF HGB 5.[address] TRISH ART'S NUMBER BUT NO ANSWER, JUST LEFT A VOICE MESSAGE. WILL CONTINUE TO MONITOR AND FOLLOW UP. SPOKE WITH AUGUSTA
[2020-08-08 10:16] LABS: HEMATOCRIT 18 % (39-51); HEMOGLOBIN 5.7 g/dL (13.5-17.5)
--- NOTE | 2020-08-08 11:30 | NUR ---
COMBAT SYSTEMS OFFICER NOTES DID A FOLLOW UP WITH DR ART. HE SAID HE'S DOESN'T HAVE THE PT. VERIFIED WITH THE CHARGE NURSE. SPOKE WITH DR. RUTLEDGE, INFORMED ABOUT THE HGB AND HCT RESULT AND HE ORDERED 2 UNITS OF PRBC.
[2020-08-08 13:09] LABS: EOSINOPHILS % (MANUAL) 1 % (0-4); LYMPHOCYTES % (MANUAL) 11 % (16-48); MONOCYTES % (MANUAL) 4 % (0-11.0); NEUTROPHILS % (MANUAL) 84 (42-76)
[2020-08-08] MEDS: ONDANSETRON HCL/PF 4 MG/2 ML VIAL IVP PRN (13:51)
--- NOTE | 2020-08-08 18:00 | NUR ---
DIRECTOR STUDENT UNION NOTES TRANSFUSION DONE, 2 UNITS OF PRBC GIVEN BY HEMODIALYSIS NURSE. POST VS BP 109/78 TEMP 97.9 IL 86 RR 17. NO TRANSFUSION REACTION.
--- NOTE | 2020-08-08 18:49 | NUR ---
EMT CLOSING NOTES PATIENT IN BED. NON VERBAL, OPENS EYES. TRACH WITH VENT SETTINGS AC 14 TV 500 FIO2 30% PEEP 6. GTF NEPRO @ 70 ML/HR X 18 HRS, ON HOLD FOR NOW. IV ACCESS ON ALEX MIDLINE. LCW PERMA CATH. ROUTINE MEDS WERE GIVEN ORDERED. SAFETY MEASURES MAINTAINED. BED IN LOWEST POSITION, BRAKES LOCKED. SIDE RAILS UP X2. CALL LIGHT WITHIN REACH. WILL ENDORSE TO WASHER REPAIRMAN FOR DENNIS.
[2020-08-08] MEDS: VIT B CMPLX 3/FA/VIT C/BIOTIN 1 TAB TABLET GT SCH (21:39)
[2020-08-09] VITALS: BP_SYST 129; BP_SYST 81; BP_DIAS 52; BP_DIAS 75
[2020-08-09] MEDS: NEPRO 1,000 ML BOTTLE GT PRN ×2 (02:25→16:26)
[2020-08-09 04:00] VITALS: BP_SYST 132; BP_DIAS 70; BP_DIAS 71
[2020-08-09] MEDS: PIPERACILLIN /TAZOBACTAM 2.25 G in IV D5W 50 ML IV SCH ×3 (05:07→21:20)
[2020-08-09] MEDS: BLOOD SUGAR DIAGNOSTIC 1 EACH STRIP IN SCH ×5 (06:13→23:49)
[2020-08-09 07:14] LABS: BASOPHILS # (AUTO) 0.1 /CMM (0.0-0.2); BASOPHILS % (AUTO) 0.5 % (0.0-2.0); EOSINOPHILS % (AUTO) 3.7 % (0.0-6.0); HEMATOCRIT 26 % (39-51); HEMOGLOBIN 8.9 g/dL (13.5-17.5); LYMPHOCYTES # (AUTO) 1.8 /CMM (0.8-4.8); LYMPHOCYTES % (AUTO) 14.1 % (20.0-44.0); MEAN CORPUSCULAR HGB CONC 34 g/dl (31.0-36.0); MEAN CORPUSCULAR VOLUME 98 fL (80-96); MONOCYTES # (AUTO) 1.2 /CMM (0.1-1.30); MONOCYTES % (AUTO) 9.3 % (2.0-12.0); NEUTROPHILS # (AUTO) 9.4 /CMM (1.8-8.9); NEUTROPHILS % (AUTO) 72.4 % (43.0-81.0); PLATELET COUNT (AUTO) 130 /CMM (150-450); RED BLOOD CELL COUNT(AUTO) 2.67 MIL/uL (4.5-6.0)
--- NOTE | 2020-08-09 07:35 | NUR ---
CANVAS SHRINKER OPENING NOTES RECEIVED PATIENT IN BED. NON VERBAL, OPENS EYES. TRACH WITH VENT SETTINGS AC 14 TV 500 FIO2 30% PEEP 6. GTF NEPRO ONGOING @ 70 ML/HR. IV ACCESS ON ALEX MIDLINE. LCW PERMA CATH. SAFETY MEASURES MAINTAINED. BED IN LOWEST POSITION, BRAKES LOCKED. SIDE RAILS UP X2. CALL LIGHT WITHIN REACH. WILL CONTINUE POC.
[2020-08-09 08:00] VITALS: BP 145/85
[2020-08-09] MEDS: CALCIUM ACETATE 667 MG TABLET GT SCH ×3 (09:01→16:12)
[2020-08-09] MEDS: ACIDOPHILUS/BULGARICUS 1 EACH TAB.CHEW GT SCH ×2 (09:01→21:20)
[2020-08-09] MEDS: THERAHONEY GEL 1.5 OZ TUBE TP SCH (09:02)
[2020-08-09] MEDS: ATENOLOL 25 MG TABLET GT SCH (09:02)
[2020-08-09] MEDS: PANTOPRAZOLE 40 MG/PACK PACK GT SCH (09:02)
[2020-08-09] MEDS: Z GUARD REMEDY 2 OZ OINT TP SCH (09:02)
[2020-08-09] MEDS: DOCUSATE SODIUM LIQ 100 MG/10 ML UDC GT SCH ×2 (09:03→16:12)
[2020-08-09 12:21] LABS: ALBUMIN 3.4 g/dL (3.4-5.0); CALCIUM, SERUM 9.6 mg/dL (8.5-10.1); MAGNESIUM 3.1 mg/dL (1.8-2.4); PHOSPHORUS 2.9 mg/dL (2.5-4.9); POTASSIUM 5.1 mmol/L (3.5-5.1); TOTAL PROTEIN, SERUM 7.2 g/dL (6.4-8.2)
[2020-08-09] MEDS: VANCOMYCIN 500 MG in IV D5W 100 ML IV PRN (13:23)
[2020-08-09 16:00] VITALS: BP 111/58
--- NOTE | 2020-08-09 16:10 | NUR ---
BOX STACKER NOTES S/P HD 1.5 L OUT. POST VS BP 111/58 NV 90 RR 16 TEMP 98.2 SAO2 100%
--- NOTE | 2020-08-09 16:36 | NUR ---
CEMENT RUBBER NOTES SUCTIONED NEEDED.
--- NOTE | 2020-08-09 18:07 | NUR ---
CONSULTING BUSINESS DEVELOPER CLOSING NOTES PATIENT IN BED. NON VERBAL, OPENS EYES. TRACH WITH VENT SETTINGS AC 14 TV 500 FIO2 30% PEEP 6. GTF NEPRO ONGOING @ 70 ML/HR. IV ACCESS ON ALEX MIDLINE, INTACT AND PATENT. LCW PERMA CATH. ROUTINE MEDS WERE GIVEN ORDERED. SAFETY MEASURES MAINTAINED. BED IN LOWEST POSITION, BRAKES LOCKED. SIDE RAILS UP X2. CALL LIGHT WITHIN REACH. WILL ENDORSE TO FIELD SERVICES DIRECTOR FOR DENNIS.
[2020-08-09 20:00] VITALS: BP 135/73
--- NOTE | 2020-08-09 20:00 | NUR ---
RN NOTES PATIENT AWAKE, NON VERBAL, MECHANICAL VENTILATOR DEPENDENT, NOTED LEFT CHEST WALL HD CATH DRESSING SOAKED WITH BLOOD, FOUND BLEEDING, WITH BLOOD CLOTS, PRESSURE DRESSING APPLIED, STILL BLEEDING.
[2020-08-09] MEDS: VIT B CMPLX 3/FA/VIT C/BIOTIN 1 TAB TABLET GT SCH (21:20)
--- NOTE | 2020-08-09 21:30 | NUR ---
RN NOTES MONITORING HD CATH BLEEDING, DRESSING SOAKED, BLOOD DRIPPING ON THE SIDES OF THE DRESSING, ICE APPLIED AND SAND BAG, STILL BLEEDING, WILL CONTINUE TO MONITOR.
[2020-08-09] MEDS: INSULIN REGULAR, HUMAN 100 UNIT/ML 3 ML VIAL SQ PRN (23:50)
--- NOTE | 2020-08-09 23:50 | NUR ---
BG 94 mg/dl, no insulin coverage
[2020-08-10] VITALS: BP 124/74
[2020-08-10 04:00] VITALS: BP 125/71
[2020-08-10] MEDS: PIPERACILLIN /TAZOBACTAM 2.25 G in IV D5W 50 ML IV SCH ×3 (05:21→22:01)
[2020-08-10] MEDS: BLOOD SUGAR DIAGNOSTIC 1 EACH STRIP IN SCH ×3 (05:55→17:59)
[2020-08-10] MEDS: INSULIN REGULAR, HUMAN 100 UNIT/ML 3 ML VIAL SQ PRN (05:56)
[2020-08-10 06:05] LABS: BASOPHILS # (AUTO) 0.1 /CMM (0.0-0.2); BASOPHILS % (AUTO) 0.5 % (0.0-2.0); EOSINOPHILS % (AUTO) 3.6 % (0.0-6.0); HEMATOCRIT 25 % (39-51); HEMOGLOBIN 8.1 g/dL (13.5-17.5); LYMPHOCYTES # (AUTO) 1.9 /CMM (0.8-4.8); LYMPHOCYTES % (AUTO) 10.6 % (20.0-44.0); MEAN CORPUSCULAR HGB CONC 33 g/dl (31.0-36.0); MEAN CORPUSCULAR VOLUME 99 fL (80-96); MONOCYTES # (AUTO) 1.7 /CMM (0.1-1.30); MONOCYTES % (AUTO) 9.1 % (2.0-12.0); NEUTROPHILS # (AUTO) 13.8 /CMM (1.8-8.9); NEUTROPHILS % (AUTO) 76.2 % (43.0-81.0); PLATELET COUNT (AUTO) 146 /CMM (150-450); RED BLOOD CELL COUNT(AUTO) 2.49 MIL/uL (4.5-6.0); WHITE BLOOD COUNT (AUTO) 18.2 K/uL (4.3-11.0)
--- NOTE | 2020-08-10 07:42 | NUR ---
RN NOTES AWAKE, OPEN EYES, VENTILATOR DEPENDENT, SPO2 94-99%, NOT IN APPARENT DISTRESS, LEFT CHEST WALL HD CATH BLEEDING, CONTROLLED BY SAND BAG, CBC IN AM SHOWS HGB 8.1, VS STABLE, MONITOR FOR BLEEDING, MONITOR H/H
--- NOTE | 2020-08-10 07:45 | NUR ---
PATTERN CHANGER OPENING NOTES RECEIVED PATIENT IN BED. NON VERBAL, OPENS EYES. TRACH WITH VENT SETTINGS AC 14 TV 500 FIO2 30% PEEP 6. NO S/S OF RESPIRATORY DISTRESS. 97% O2 SATURATION. GTF NEPRO ONGOING @ 70 ML/HR X 18 HRS. IV ACCESS ON ALEX MIDLINE, INTACT. LCW PERMA CATH WITH SIGNS OF BLEEDING, SAND BAG ON THE SITE FOR PRESSURE. SAFETY MEASURES MAINTAINED. BED IN LOWEST POSITION, BRAKES LOCKED. SIDE RAILS UP X2. CALL LIGHT WITHIN REACH. WILL CONTINUE POC.
[2020-08-10 08:00] VITALS: BP 112/64
[2020-08-10] MEDS: DOCUSATE SODIUM LIQ 100 MG/10 ML UDC GT SCH ×2 (08:45→16:14)
[2020-08-10] MEDS: PANTOPRAZOLE 40 MG/PACK PACK GT SCH (08:45)
[2020-08-10] MEDS: CALCIUM ACETATE 667 MG TABLET GT SCH ×3 (08:46→16:14)
[2020-08-10] MEDS: ATENOLOL 25 MG TABLET GT SCH (08:46)
[2020-08-10] MEDS: ACIDOPHILUS/BULGARICUS 1 EACH TAB.CHEW GT SCH ×2 (08:46→22:01)
[2020-08-10] MEDS: THERAHONEY GEL 1.5 OZ TUBE TP SCH (08:46)
[2020-08-10] MEDS: Z GUARD REMEDY 2 OZ OINT TP SCH (08:46)
--- NOTE | 2020-08-10 11:11 | NUR ---
COSTUME RENTAL CLERK NOTES BLEEDING ON LCW PERMA CATH. BP OF 68/49. INFORMED CHARGE NURSE. CALLED HEMODIALYSIS NURSE. ORDERED FOR H&H LEVEL COUNT. WILL CONTINUE TO MONITOR.
--- NOTE | 2020-08-10 11:25 | NUR ---
TIRE BUFFER NOTES HD NURSE CAME TO SEE PATIENT, ADVISED TO CONTINUE PUTTING PRESSURE ON THE HD SITE AND TO CALL DR. RUTLEDGE.
--- NOTE | 2020-08-10 11:44 | NUR ---
new order received from dr. Casillas to apply surgacel dressing to bleeding area.
--- NOTE | 2020-08-10 11:45 | NUR ---
ELECTRIC METER SETTER NOTES RECHECKED BP 75/53. SA02 98% RI 86 WILL CONTINUE TO MONITOR THROUGHOUT THE SHIFT.
[2020-08-10 11:53] VITALS: BP 75/53
[2020-08-10] MEDS ORDERED: CELLULOSE,OXIDIZED 1 EACH EACH MC ONE (12:00)
--- NOTE | 2020-08-10 12:00 | NUR ---
TRADE MARK EXAMINER NOTES RECHECKED BP 81/61
[2020-08-10 12:05] LABS: HEMOGLOBIN 7.6 g/dL (13.5-17.5)
[2020-08-10] MEDS: NEPRO 1,000 ML BOTTLE GT PRN (12:07)
--- NOTE | 2020-08-10 12:25 | NUR ---
FILES SUPERVISOR NOTES CHANGED THE HD DRESSING SITE WITH MARTHA GOMEZ. WILL CONTINUE TO MONITOR THROUGHOUT SHIFT.
[2020-08-10] MEDS ORDERED: GELATIN SPONGE,ABSORBABLE 1 SPONGE SPONGE TP ONE (15:00)
--- NOTE | 2020-08-10 15:13 | NUR ---
FURNITURE REMOVALIST'S ASSISTANT NOTES DR RUTLEDGE ORDERED GELFOAM. HD NURSE CAME TO SEE AND CHECK AGAIN THE PT. PUT A MANUAL PRESSURE ON THE SITE FOR ABOUT 10 MINS. APPLIED GELFOAM AND PRESSURE DRESSING. SO FAR BLEEDING HAS STOP. VS BP 88/64 NE 107 RR 15 TEMP 97.9 SA02 95% WILL CONTINUE TO MONITOR FOR ANY SIGNS OF BLEEDING.
[2020-08-10 16:00] VITALS: BP 88/64
--- NOTE | 2020-08-10 16:43 | NUR ---
LINING STRAP CLOSER NOTES BP 67/45. PROAMATINE GIVEN.
--- NOTE | 2020-08-10 18:20 | NUR ---
FIELD LOGISTICS COORDINATOR NOTES BP IS STILL LOW AFTER GIVING MIDODRINE. BP 72/48 AK 94 RR 15 TEMP 97.8 SA02 95% INFORMED DR. RUTLEDGE ABOUT THE CONDITION OF THE PT.
--- NOTE | 2020-08-10 18:38 | NUR ---
CHANNEL EXECUTIVE CLOSING NOTES PATIENT IN BED. NON VERBAL, OPENS EYES. TRACH WITH VENT SETTINGS AC 14 TV 500 FIO2 30% PEEP 6. IN NO APPARENT DISTRESS. GTF NEPRO ONGOING @ 70 ML/HR X 18 HRS. IV ACCESS ON ALEX MIDLINE, INTACT AND PATENT. LCW PERMA CATH, INTACT, BLEEDING HAS BEEN CONTROLLED. ROUTINE MEDS WERE GIVEN ORDERED. SAFETY MEASURES MAINTAINED. BED IN LOWEST POSITION, BRAKES LOCKED. SIDE RAILS UP X2. CALL LIGHT WITHIN REACH. WILL ENDROSE TO MANAGER ENT FOR DENNIS.
--- NOTE | 2020-08-10 19:30 | NUR ---
TELE/RN OPENING NOTES RECEIVED PATIENT IN BED RESTING. PATIENT IS ALERT AND ORIENTED TO OPEN EYES. PATIENT IS TOLERATING VENT SETTING WELL. PATIENT HAS IV ACCESS RIGHT UA FLUSHING WELL INTACT. LEFT CW HD CATH WITH SURGICAL DRESSING INTACT, CLEAN AND DRY, NO SIGNS OF ACTIVE BLEEDING WILL CONTINUE TO MONITOR SITE. SAFETY MEASURES ARE IN PLACE, BED LOCK, IN LOW POSITION, SIDE RAILS UP X 3, CALL LIGHT WITHIN REACH. WILL CONTINUE TO MONITOR DURING SHIFT. V/S: BP 78/53 HR 101 O2 96%
--- NOTE | 2020-08-10 19:45 | NUR ---
TELE/RN NOTES PATIENT HAD ONE EPISODE OF VOMITING LARGE AMOUNT. ASPIRATION PRECAUTIONS IN PLACE. PATIENT IS STABLE. PATIENT CLEANED. WILL CONTINUE TO MONITOR.
[2020-08-10 20:00] VITALS: BP 81/52
[2020-08-10] MEDS: VIT B CMPLX 3/FA/VIT C/BIOTIN 1 TAB TABLET GT SCH (22:01)
[2020-08-11] VITALS: BP_SYST 92; BP_DIAS 52; BP_DIAS 58
--- NOTE | 2020-08-11 | NUR ---
TELE/RN NOTES PATIENT LEFT CW HD CATH SURGICAL DRESSING INTACT, CLEAN, DRY. NO SIGNS OF ACTIVE BLEEDING NOTED. PATIENT IN NO SIGNS OF DISTRESS. WILL CONTINUE TO MONITOR.
[2020-08-11] MEDS: BLOOD SUGAR DIAGNOSTIC 1 EACH STRIP IN SCH ×5 (00:15→23:06)
[2020-08-11 04:00] VITALS: BP 88/56
[2020-08-11] MEDS: PIPERACILLIN /TAZOBACTAM 2.25 G in IV D5W 50 ML IV SCH ×3 (04:49→22:19)
--- NOTE | 2020-08-11 07:30 | NUR ---
TELE/RN CLOSING NOTES PATIENT IN BED RESTING. PATIENT IS ALERT AND ORIENTED TO OPEN EYES. PATIENT IS TOLERATING VENT SETTING WELL. PATIENT HAS IV ACCESS RIGHT UA FLUSHING WELL INTACT. LEFT CW HD CATH WITH SURGICAL DRESSING INTACT, CLEAN AND DRY, NO SIGNS OF ACTIVE BLEEDING. ALL NEEDS MET. SAFETY MEASURES ARE IN PLACE, BED LOCK, IN LOW POSITION, SIDE RAILS UP X 3, CALL LIGHT WITHIN REACH. WILL ENDORSE TO DAY SHIFT.
[2020-08-11 07:59] VITALS: BP 84/51
--- NOTE | 2020-08-11 08:05 | NUR ---
CHOIR LEADER OPENING NOTE PATIENT IS IN BED RESTING, PATIENT IS IN NO ACUTE DISTRESS. PATIENT IS ON VENT. PATIENT IS ON TELE MONITOR READING SR 84. PATIENT IS ON RESTRAINS. SAFETY PRECAUTIONS ARE ON. BED IN THE LOWEST POSITION. SIDE RAILS ARE UP, CALL LIGHT WITHIN REACH WILL CONTINUE TO MONITOR CLOSELY THROUGH OUT THE SHIFT.
[2020-08-11] MEDS: ATENOLOL 25 MG TABLET GT SCH (08:37)
[2020-08-11] MEDS: ACIDOPHILUS/BULGARICUS 1 EACH TAB.CHEW GT SCH ×2 (08:38→20:48)
[2020-08-11] MEDS: CALCIUM ACETATE 667 MG TABLET GT SCH ×3 (08:38→18:05)
[2020-08-11] MEDS: PANTOPRAZOLE 40 MG/PACK PACK GT SCH (08:38)
[2020-08-11] MEDS: Z GUARD REMEDY 2 OZ OINT TP SCH (08:40)
[2020-08-11] MEDS: THERAHONEY GEL 1.5 OZ TUBE TP SCH (08:40)
[2020-08-11] MEDS: DOCUSATE SODIUM LIQ 100 MG/10 ML UDC GT SCH ×2 (08:40→18:06)
[2020-08-11 12:07] VITALS: BP 82/55
[2020-08-11 12:37] LABS: ALBUMIN 3.7 g/dL (3.4-5.0); BILIRUBIN,TOTAL 1.5 mg/dL (0.2-1.0); MAGNESIUM 3.6 mg/dL (1.8-2.4); PHOSPHORUS 3.6 mg/dL (2.5-4.9); POTASSIUM 5.3 mmol/L (3.5-5.1); TOTAL PROTEIN, SERUM 7.8 g/dL (6.4-8.2)
[2020-08-11 13:10] LABS: CREATININE 8.8 mg/dL (0.6-1.3)
[2020-08-11] MEDS: DEXTROSE 50%-WATER 50 ML DISP.SYRIN IV PRN (18:06)
--- NOTE | 2020-08-11 18:43 | NUR ---
LITHOGRAPH PRINTER NOTE PATIENTS BLOOD SUGAR WAS 51, DEXTROSE 50 WAS GIVEN, AFTER RECHECKING PATIENTS BLOOD SUGAR IT WENT UP TO 170.
--- NOTE | 2020-08-11 19:30 | NUR ---
PROTECTION MGR OPENING NOTE RECEIVED PATIENT IN BED. NONVERBAL, OPENS EYES. ON [facility] VENT AC 15 TV 500 FIO2 30% PEEP 6. REPARATIONS ARE EVEN AND UNLABORED. NO S/S SOB NOTED. NO S/S PAIN AT THIS TIME. EXTERNAL TELE MONITOR READ SINUS RHYTHM HR 85. N NO APPARENT DISTRESS. IV ACCESS IN ALEX MIDLINE PATENT AND SALINE LOCKED. DIRECTOR CLIENT AT BEDSIDE, RIGHT CHEST WALL PERMACATH, NO BLEEDING AT SITE. GTUBE IS PRESENT, NO RESIDUAL, FEEDING RUNNING AT NEPRO @@70ML/HR.BED IS LOW AND LOCKED, HOB ELEVATED IN SEMI FOWLERS, SIDE RAILS UP X3. CALL LIGHT WITHIN REACH. WILL CONTINUE TO MONITOR THROUGHOUT SHIFT. Addendum: 08/11/20 at 2058 by LORI SEXTON RN BILATERAL SOFT RIST RESTRAINTS PRESENT, NO REDNESS NOTED, GOOD CIRCULATION.
[2020-08-11 19:36] LABS: BASOPHILS # (AUTO) 0.1 /CMM (0.0-0.2); BASOPHILS % (AUTO) 0.4 % (0.0-2.0); EOSINOPHILS % (AUTO) 2.8 % (0.0-6.0); LYMPHOCYTES # (AUTO) 1.9 /CMM (0.8-4.8); LYMPHOCYTES % (AUTO) 9.4 % (20.0-44.0); MEAN CORPUSCULAR HGB CONC 33 g/dl (31.0-36.0); MEAN CORPUSCULAR VOLUME 101 fL (80-96); MONOCYTES # (AUTO) 0.9 /CMM (0.1-1.30); MONOCYTES % (AUTO) 4.6 % (2.0-12.0); NEUTROPHILS # (AUTO) 16.9 /CMM (1.8-8.9); NEUTROPHILS % (AUTO) 82.8 % (43.0-81.0); PLATELET COUNT (AUTO) 163 /CMM (150-450); WHITE BLOOD COUNT (AUTO) 20.5 K/uL (4.3-11.0)
[2020-08-11 19:38] LABS: RED BLOOD CELL COUNT(AUTO) 1.55 MIL/uL (4.5-6.0)
[2020-08-11 19:41] LABS: HEMATOCRIT 16 % (39-51); HEMOGLOBIN 5.2 g/dL (13.5-17.5)
--- NOTE | 2020-08-11 19:57 | NUR ---
AUTOMATIC COIL MACHINE OPERATOR CLOSING NOTE PATIENT IS IN BED RESTING, PATIENT IS IN NO ACUTE DISTRESS. PATIENT IS ON VENT SATURATING 96%. PATIENT IS ON TELE MONITOR READING SR 80S. PATIENT IS ON RESTRAINS. SAFETY PRECAUTIONS ARE ON. BED IN THE LOWEST POSITION. SIDE RAILS ARE UP, CALL LIGHT WITHIN REACH. ENDORSE PATIENT TO ULTRASOUND SONOGRAPHER NURSE FOR DENNIS.
[2020-08-11 20:00] VITALS: BP 78/48
[2020-08-11 20:27] LABS: BAND % (MANUAL) 1 % (0.0-5.0); EOSINOPHILS % (MANUAL) 2 % (0-4); LYMPHOCYTES % (MANUAL) 14 % (16-48); MONOCYTES % (MANUAL) 2 % (0-11.0); NEUTROPHILS % (MANUAL) 81 (42-76)
[2020-08-11] MEDS: ALBUMIN 25% 25 GM in PREMIX 1 EA IV PRN (20:30)
[2020-08-11] MEDS: NEPRO 1,000 ML BOTTLE GT PRN (20:48)
[2020-08-11 20:58] LABS: MEAN CORPUSCULAR HGB CONC 33 g/dl (31.0-36.0); MEAN CORPUSCULAR VOLUME 101 fL (80-96); PLATELET COUNT (AUTO) 126 /CMM (150-450); WHITE BLOOD COUNT (AUTO) 18.7 K/uL (4.3-11.0)
[2020-08-11 20:59] LABS: RED BLOOD CELL COUNT(AUTO) 1.42 MIL/uL (4.5-6.0)
[2020-08-11 21:01] LABS: HEMATOCRIT 14 % (39-51); HEMOGLOBIN 4.7 g/dL (13.5-17.5)
[2020-08-11] MEDS: VIT B CMPLX 3/FA/VIT C/BIOTIN 1 TAB TABLET GT SCH (21:08)
--- NOTE | 2020-08-11 21:40 | NUR ---
TRANSFER TABLE OPERATOR NOTE 1942 RECEIVED CRITICAL LAB FOR HBG/HCT 5.08/12. VICE PRESIDENT OF INSTRUCTION INFORMED D/T PATIENT SCHEDULED FOR DISCHARGE. PATIENT HAS HISTORY OF BLEEDING FROM DIALYSIS SITE IN THE PAST FEW DAYS. NO BLEEDING NOTED AT THIS TIME. STAT H/H DRAWN AGAIN. 2101 CRITICAL LAB FOR H/H 4.01/07. DR. HDZ CALLED TELEPHONE ORDERED 2 UNIT PRBC STAT. ALSO INFORMED HIM HD RN NOTIFIED ME BP WENT TO 50S, TELEPHONE ORDER FOR 500 NS BOLUS ONE TIME NOW. ALSO AN ORDER TO OBTAIN CBC AFTER BLOOD TRANSFUSIONS. INFORMED MD PATIENT HAS AN ORDER FOR DC. MD TELEPHONE ORDER HOLD DC. ORDERS READ BACK , NOTED AND CARRIED OUT.
[2020-08-11] MEDS ORDERED: IV NS 0.9% 500 ML BAG IV ONE (22:00)
[2020-08-11] MEDS: VANCOMYCIN 500 MG in IV D5W 100 ML IV PRN (22:59)
[2020-08-12] VITALS (30 sets, daily range): BP systolic 74–103; BP diastolic 42–64
[2020-08-12] MEDS: BLOOD SUGAR DIAGNOSTIC 1 EACH STRIP IN SCH ×4 (06:47→23:52)
[2020-08-12] MEDS: PIPERACILLIN /TAZOBACTAM 2.25 G in IV D5W 50 ML IV SCH ×3 (06:51→21:04)
--- NOTE | 2020-08-12 07:20 | NUR ---
DEBURRING TECHNICIAN OPENING NOTES RECEIVED PATIENT IN BED WITH VS BP 79/54 UT 83 RR 17 SA02 100% NON VERBAL, OPENS EYES. TRACH WITH VENT SETTINGS AC 14 TV 500 FIO2 30% PEEP 6. NO S/S OF RESPIRATORY DISTRESS. BREATHING IS EVEN AND UNLABORED. GTF NEPRO @ 70 ML/HR X 18 HRS. IV ACCESS ON ALEX MIDLINE, INTACT, FLUSHING WELL. LCW PERMA CATH WITH SURGICAL DRESSING, NO SIGNS OF BLEEDING AT THIS TIME. SAFETY MEASURES MAINTAINED. BED IN LOWEST POSITION, BRAKES LOCKED. SIDE RAILS UP X2. CALL LIGHT WITHIN REACH. WILL CONTINUE PLAN OF CARE.
--- NOTE | 2020-08-12 07:53 | NUR ---
FRUIT SORTER CLOSING NOTE PATIENT RESTING IN BED. NONVERBAL. REMAINS ON MECH VENT, NO CHANGES IN SETTING. NO RESP DISTRESS. NO S/S PAIN. TELE MONITOR READ SINUS RHYTHM. NO DISTRESS. IV ACCESS MAINTAINED IN ALEX MIDLINE. NOTHING TAKEN OUT WITH HD. GTUBE IS MAINTAINED RUNNING AT NEPRO @70ML/HR BILATERAL SOFT WRIST MAINTAINED, GOOD CAP REFILL, NO REDNESS NOTED. BED REMAINS LOW AND LOCKED, HOB ELEVATED IN SEMI FOWLERS, SIDE RAILS UP X3. CALL LIGHT WITHIN REACH. WILL ENDORSE TO ONCOMING SHIFT.
[2020-08-12] MEDS: ATENOLOL 25 MG TABLET GT SCH (08:59)
[2020-08-12] MEDS: Z GUARD REMEDY 2 OZ OINT TP SCH (09:00)
[2020-08-12] MEDS: CALCIUM ACETATE 667 MG TABLET GT SCH ×3 (09:00→16:49)
[2020-08-12] MEDS: ACIDOPHILUS/BULGARICUS 1 EACH TAB.CHEW GT SCH ×2 (09:00→21:04)
[2020-08-12] MEDS: THERAHONEY GEL 1.5 OZ TUBE TP SCH (09:00)
[2020-08-12] MEDS: PANTOPRAZOLE 40 MG/PACK PACK GT SCH (09:00)
[2020-08-12] MEDS: DOCUSATE SODIUM LIQ 100 MG/10 ML UDC GT SCH ×2 (09:00→16:49)
[2020-08-12 09:23] LABS: BASOPHILS # (AUTO) 0.1 /CMM (0.0-0.2); BASOPHILS % (AUTO) 0.3 % (0.0-2.0); EOSINOPHILS % (AUTO) 3.4 % (0.0-6.0); HEMATOCRIT 21 % (39-51); LYMPHOCYTES # (AUTO) 1.6 /CMM (0.8-4.8); MEAN CORPUSCULAR HGB CONC 34 g/dl (31.0-36.0); MEAN CORPUSCULAR VOLUME 93 fL (80-96); MONOCYTES # (AUTO) 1.7 /CMM (0.1-1.30); MONOCYTES % (AUTO) 9.6 % (2.0-12.0); NEUTROPHILS # (AUTO) 13.8 /CMM (1.8-8.9); NEUTROPHILS % (AUTO) 77.7 % (43.0-81.0); PLATELET COUNT (AUTO) 124 /CMM (150-450); RED BLOOD CELL COUNT(AUTO) 2.22 MIL/uL (4.5-6.0); WHITE BLOOD COUNT (AUTO) 17.8 K/uL (4.3-11.0)
[2020-08-12 09:40] LABS: BILIRUBIN,TOTAL 0.9 mg/dL (0.2-1.0); CALCIUM, SERUM 9.1 mg/dL (8.5-10.1); PHOSPHORUS 3.2 mg/dL (2.5-4.9); POTASSIUM 4.2 mmol/L (3.5-5.1)
[2020-08-12 09:58] LABS: CREATININE 7.6 mg/dL (0.6-1.3)
[2020-08-12 10:50] LABS: HEMOGLOBIN 6.9 g/dL (13.5-17.5)
--- NOTE | 2020-08-12 10:54 | NUR ---
ASSEMBLER UNIT NOTES LAB CALLED FOR A CRITICAL LAB VALUE H/H 6.03/17. MD RUTLEDGE IS MADE AWARE. ORDERED TO TRANSFUSE 1 UNIT OF [facility].
[2020-08-12] MEDS: NEPRO 1,000 ML BOTTLE GT PRN (12:14)
[2020-08-12] MEDS ORDERED: DESMOPRESSIN 20 MCG in IV NS 0.9% 50 ML IV ONE (15:00)
--- NOTE | 2020-08-12 17:03 | NUR ---
ICE SCULPTOR NOTES 1 UNIT OF [facility] TRANSFUSED. POST V/S BP 92/61 CO 80 TEMP 98.7. NO HEMOLYTIC REACTION.
--- NOTE | 2020-08-12 18:33 | NUR ---
READERS' ADVISORY SERVICE LIBRARIAN CLOSING NOTES PATIENT IN BED. NON VERBAL, OPENS EYES. TRACH WITH VENT SETTINGS AC 14 TV 500 FIO2 30% PEEP 6. NO SOB NOTED. NO S/S OF RESPIRATORY DISTRESS. GTF NEPRO ONGOING @ 70 ML/HR X 18 HRS. IV ACCESS ON ALEX MIDLINE, INTACT AND PATENT, FLUSHING WELL. LCW PERMA CATH, INTACT, NO SIGNS OF BLEEDING NOTED. BOTH WRIST ON SOFT RESTRAINTS, IN PLACE, CHECKED REGULARLY. ROUTINE MEDS WERE GIVEN ORDERED. SAFETY MEASURES MAINTAINED. BED IN LOWEST POSITION, BRAKES LOCKED. SIDE RAILS UP X2. CALL LIGHT WITHIN REACH. WILL ENDORSE TO CHILD ADVOCATE FOR CONTINUITY OF CARE.
--- NOTE | 2020-08-12 19:30 | NUR ---
EXCELLENCE SPECIALIST OPENING NOTE RECEIVED PATIENT IN BED. NONVERBAL, OPENS EYES. ON [facility] VENT AC 15 TV 500 FIO2 30% PEEP 6. REPARATIONS ARE EVEN AND UNLABORED. NO S/S SOB NOTED. NO S/S PAIN AT THIS TIME. EXTERNAL TELE MONITOR READ SINUS RHYTHM HR78. IN NO APPARENT DISTRESS. IV ACCESS IN ALEX MIDLINE PATENT AND SALINE LOCKED. LEFT CHEST WALL PERMA CATH NO BLEEDING NOTED. GTUBE IS PRESENT, NO RESIDUAL, FEEDING RUNNING AT NEPRO @70ML/HR.BILATERAL SOFT WRIST RESTRAINTS PRESENT, NO REDNESS NOTED, GOOD CIRCULATION. BED IS LOW AND LOCKED, HOB ELEVATED IN SEMI FOWLERS, SIDE RAILS UP X3. CALL LIGHT WITHIN REACH. WILL CONTINUE TO MONITOR THROUGHOUT SHIFT.
[2020-08-12] MEDS: VIT B CMPLX 3/FA/VIT C/BIOTIN 1 TAB TABLET GT SCH (21:04)
[2020-08-13] VITALS: BP 92/57
[2020-08-13 00:26] VITALS: BP 92/57
[2020-08-13] MEDS: ONDANSETRON HCL/PF 4 MG/2 ML VIAL IVP PRN (03:04)
[2020-08-13 04:00] VITALS: BP 101/77
[2020-08-13] MEDS: PIPERACILLIN /TAZOBACTAM 2.25 G in IV D5W 50 ML IV SCH ×2 (04:23→12:47)
[2020-08-13 05:00] VITALS: BP 101/77
[2020-08-13] MEDS: BLOOD SUGAR DIAGNOSTIC 1 EACH STRIP IN SCH ×3 (06:21→18:09)
--- NOTE | 2020-08-13 07:10 | NUR ---
SURFACE MOUNT TECHNOLOGY OPERATOR OPENING NOTES RECEIVED PATIENT IN BED. NON VERBAL. VS BP 96/64 KS 75 RR 15 TEMP 98.6 SA02 100% TRACH WITH VENT SETTINGS AC 14 TV 500 FIO2 30% PEEP 6. NO S/S OF RESPIRATORY DISTRESS. BREATHING IS EVEN AND UNLABORED. GTF NEPRO RUNNING @ 70 ML/HR X 18 HRS. IV ACCESS ON ALEX MIDLINE, INTACT AND PATENT, FLUSHING WELL. LCW PERMA CATH WITH SURGICAL DRESSING, INTACT, NO SIGNS OF BLEEDING AT THIS TIME. BILATERAL SOFT RESTRAINT ON THE WRIST, WITH GOOD CIRCULATION. SAFETY MEASURES MAINTAINED. BED IN LOWEST POSITION, BRAKES LOCKED. SIDE RAILS UP X2. CALL LIGHT WITHIN REACH. WILL CONTINUE PLAN OF CARE.
--- NOTE | 2020-08-13 07:12 | NUR ---
[employer] FLATBED TRUCK DRIVER CLOSING NOTE PATIENT RESTING IN BED. NONVERBAL, OPENS EYES. [facility] NO CH[facility] IN SETTINGS. NO RESP DISTRESS NOTED. NO S/S PAIN THROUGHOUT SHIFT. TELE MONITOR READ SINUS RHYTHM. PATIENT DID HAVE AN EPISODE OF EMESIS AFTER CHANGING AND SUCTIONING, ZOFRAN GIVEN, NO OTHER EPISODES. IV ACCESS MAINTAINED IN ALEX MIDLINE. LEFT CHEST WALL PERMA CATH HAS NO SIGNS OF BLEEDING. GTUBE RUNNING AT NEPRO @70ML/HR.BILATERAL SOFT WRIST RESTRAINTS, GOOD CAP REFILL. BED REMAINS LOW AND LOCKED, HOB ELEVATED IN HIGH FOWLERS, SIDE RAILS UP X3. CALL LIGHT WITHIN REACH. WILL ENDORSE TO NEXT SHIFT.
[2020-08-13 08:00] VITALS: BP 100/58
[2020-08-13] MEDS: PANTOPRAZOLE 40 MG/PACK PACK GT SCH (08:43)
[2020-08-13] MEDS: DOCUSATE SODIUM LIQ 100 MG/10 ML UDC GT SCH ×2 (08:43→16:42)
[2020-08-13] MEDS: CALCIUM ACETATE 667 MG TABLET GT SCH ×3 (08:43→16:42)
[2020-08-13] MEDS: ATENOLOL 25 MG TABLET GT SCH (08:44)
[2020-08-13] MEDS: ACIDOPHILUS/BULGARICUS 1 EACH TAB.CHEW GT SCH (08:44)
[2020-08-13] MEDS: Z GUARD REMEDY 2 OZ OINT TP SCH (08:45)
[2020-08-13] MEDS: THERAHONEY GEL 1.5 OZ TUBE TP SCH (08:45)
[2020-08-13] MEDS: NEPRO 1,000 ML BOTTLE GT PRN (08:51)
[2020-08-13 13:07] LABS: BASOPHILS % (AUTO) 0.3 % (0.0-2.0); HEMATOCRIT 23 % (39-51); HEMOGLOBIN 7.7 g/dL (13.5-17.5); LYMPHOCYTES # (AUTO) 0.8 /CMM (0.8-4.8); LYMPHOCYTES % (AUTO) 10.1 % (20.0-44.0); MEAN CORPUSCULAR HGB CONC 34 g/dl (31.0-36.0); MEAN CORPUSCULAR VOLUME 93 fL (80-96); MONOCYTES # (AUTO) 0.4 /CMM (0.1-1.30); MONOCYTES % (AUTO) 4.8 % (2.0-12.0); NEUTROPHILS # (AUTO) 6.4 /CMM (1.8-8.9); NEUTROPHILS % (AUTO) 79.8 % (43.0-81.0); PLATELET COUNT (AUTO) 104 /CMM (150-450); RED BLOOD CELL COUNT(AUTO) 2.41 MIL/uL (4.5-6.0)
[2020-08-13] MEDS ORDERED: VANCOMYCIN 1 GM in IV D5W 250 ML IV ONE (16:00)
--- NOTE | 2020-08-13 18:19 | NUR ---
DIRECTOR PAYMENT CLOSING NOTES PATIENT IN BED. NON VERBAL, OPENS EYES. TRACH WITH VENT SETTINGS AC 14 TV 500 FIO2 30% PEEP 6. NO SOB NOTED. IN NO APPARENT DISTRESS. GTF NEPRO ONGOING @ 70 ML/HR X 18 HRS. IV ACCESS ON ALEX MIDLINE, INTACT AND PATENT, FLUSHING WELL. LCW PERMA CATH, INTACT, NO SIGNS OF BLEEDING NOTED. BOTH WRIST ON SOFT RESTRAINTS, IN PLACE, CHECKED REGULARLY. ROUTINE MEDS WERE GIVEN ORDERED. SAFETY MEASURES MAINTAINED. BED IN LOWEST POSITION, BRAKES LOCKED. SIDE RAILS UP X2. CALL LIGHT WITHIN REACH. PATIENT IS FOR DISCHARGE ON [facility]. WAITING FOR AMBULANCE RESIDENTIAL MONITOR. REPORT GIVEN TO SAAD FROM [facility] @ 3563.
--- NOTE | 2020-08-13 20:10 | NUR ---
FACILITIES SUPERVISOR NOTES PATIENT IS DISCHARGED. ACCOMPANIED BY 3 EMT'S VIA MATTHEW, GAVE REPORT TO LOVE. ALSO CALLED THE SNF AND GAVE REPORT TO SAAD. PATIENT IS STABLE, VS 112/83 CT 86 RR 14 TEMP 97.5 SA02 98% LEFT THE IV ACCESS PER SNF.
[2020-08-14] MEDS ORDERED: VANCOMYCIN 500 MG in IV D5W 100 ML IV PRN (06:00)
== END 2020-08-13 20:10 | DRG 711 ==
LOC: ER 16:50 → TRANSITION 21:41 → TELE1 08-03 10:14 → TELE 08-05 08:35
PROVIDERS: ADMIT Internal Medicine Nephrology; ATTEND Internal Medicine
PROC: 5A1955Z Respiratory Ventilation, Greater than 96 Consecutive Hours (ICD-10-PCS; principal; 2020-08-02)
PROC: 05H533Z Insertion of Infusion Device into Right Subclavian Vein, Percutaneous Approach (ICD-10-PCS; 2020-08-04)
PROC: B546ZZA Ultrasonography of Right Subclavian Vein, Guidance (ICD-10-PCS; 2020-08-04)
PROC: 0J2SXYZ Change Other Device in Head and Neck Subcutaneous Tissue and Fascia, External Approach (ICD-10-PCS; 2020-08-05)
PROC: 0QB10ZZ Excision of Sacrum, Open Approach (ICD-10-PCS; 2020-08-06)
PROC: 0JBQ0ZZ Excision of Right Foot Subcutaneous Tissue and Fascia, Open Approach (ICD-10-PCS; 2020-08-06)
PROC: 0JBR0ZZ Excision of Left Foot Subcutaneous Tissue and Fascia, Open Approach (ICD-10-PCS; 2020-08-06)
PROC: 5A1D70Z Performance of Urinary Filtration, Intermittent, Less than 6 Hours Per Day (ICD-10-PCS; 2020-08-06)
PROC: 30233N1 Transfusion of Nonautologous Red Blood Cells into Peripheral Vein, Percutaneous Approach (ICD-10-PCS; 2020-08-08)
PROC: 0JBQ0ZZ Excision of Right Foot Subcutaneous Tissue and Fascia, Open Approach (ICD-10-PCS; 2020-08-13)
PROC: 0JBR0ZZ Excision of Left Foot Subcutaneous Tissue and Fascia, Open Approach (ICD-10-PCS; 2020-08-13)
DX: T80.211A Bloodstream infection due to central venous catheter, initial encounter (principal); T82.41XA Breakdown (mechanical) of vascular dialysis catheter, initial encounter; A41.9 Sepsis, unspecified organism; I12.0 Hypertensive chronic kidney disease with stage 5 chronic kidney disease or end stage renal disease; G93.1 Anoxic brain damage, not elsewhere classified; J96.10 Chronic respiratory failure, unspecified whether with hypoxia or hypercapnia; Z99.2 Dependence on renal dialysis; Z99.11 Dependence on respirator [ventilator] status; N18.6 End stage renal disease; D68.69 Other thrombophilia; E11.22 Type 2 diabetes mellitus with diabetic chronic kidney disease; D63.8 Anemia in other chronic diseases classified elsewhere; L89.154 Pressure ulcer of sacral region, stage 4; E11.40 Type 2 diabetes mellitus with diabetic neuropathy, unspecified; Y71.2 Prosthetic and other implants, materials and accessory cardiovascular devices associated with adverse incidents; E78.5 Hyperlipidemia, unspecified; E83.52 Hypercalcemia; T82.838A Hemorrhage due to vascular prosthetic devices, implants and grafts, initial encounter; Y84.1 Kidney dialysis as the cause of abnormal reaction of the patient, or of later complication, without mention of misadventure at the time of the procedure; Y84.8 Other medical procedures as the cause of abnormal reaction of the patient, or of later complication, without mention of misadventure at the time of the procedure; Z20.822 Contact with and (suspected) exposure to COVID-19; Z74.01 Bed confinement status; Z79.4 Long term (current) use of insulin; R13.10 Dysphagia, unspecified; I69.354 Hemiplegia and hemiparesis following cerebral infarction affecting left non-dominant side; E11.621 Type 2 diabetes mellitus with foot ulcer; L97.419 Non-pressure chronic ulcer of right heel and midfoot with unspecified severity; L97.519 Non-pressure chronic ulcer of other part of right foot with unspecified severity; L97.429 Non-pressure chronic ulcer of left heel and midfoot with unspecified severity; E11.51 Type 2 diabetes mellitus with diabetic peripheral angiopathy without gangrene; M86.671 Other chronic osteomyelitis, right ankle and foot; E11.69 Type 2 diabetes mellitus with other specified complication; E46 Unspecified protein-calorie malnutrition; Z68.23 Body mass index [BMI] 23.0-23.9, adult; Z93.1 Gastrostomy status
CPT/HCPCS: 31720; 36415; 71045-TC; 80048-TC; 80053-TC; 80076-TC; 80202-TC; 82248-TC; 82306; 82652; 82728-TC; 82962-TC; 83605-TC; 83615-TC; 83735-TC; 83970; 84100-TC; 85025-TC; 85027-TC; 85730-TC; 86140-TC; 86850-TC; 90935-TC; 94003-TC; 94760-TC; 94762-TC; 94799-TC; 99082-TC; A4216; A4217; A4623; A6253; A6403; A6407; A7526; C1750; C9803; G0378; J1644; J2405; J2543; J2597; J3370; J3490; J7030; J7040; J7050; J7060; P9016-BL; P9047; Q9966; U0003

== ENCOUNTER 2020-08-20 16:04 | Inpatient (IN) | payer MEDICAID ==
[~2020-08-20] VITALS: Ht 172.7 cm; Wt 70.8 kg
[~2020-08-20 16:04] MED LIST changes: -ACETAMINOPHEN 650 MG/20.3 ML UDC GT PRN; -ACETAMINOPHEN 650 MG/SUPP.RECT RC PRN
--- NOTE | 2020-08-20 16:13 | NUR ---
called , no answer
--- NOTE | 2020-08-20 16:20 | NUR ---
RT NOTE PT RECEIVED FROM [facility]. PERMACATH WAS REPORTED TO BE DISPLACED. PT IS TRACH'D VIA PORTEX 8 CUFFED. VENT SETTINGS ARE AC 14, 500, 40% +5 GIVEN BY TRANSPORT RT. VENT IS PLUGGED INTO RED OUTLET. ALARMS ARE SET AND AUDIBLE. BMV @ [employer]. ARMANDO IS SECURE AND PATENT. Addendum: 08/20/20 at 1728 by DORITA CROSS RT Amended: Links added.
--- NOTE | 2020-08-20 16:27 | NUR ---
JONATHAN FROM [facility] [place] FOR L CHEST PERMA CATHETER DISLODGEMENT, LAST DIALYSIS WAS YESTERDAY. TO ER BED 8, HOOKED TO MONITOR, CHANGED TO HOSP GOWN, RT AT BEDSIDE, NOTED W TRACHEOSTOMY, W VENT SETTINGS OF AC 14, VT 500, O2 40% AND PEEP OF 5.0. WARM BLANKET PROVIDED, AAO x 0. NAD NOTED. AWAITING MD COPE
--- NOTE | 2020-08-20 17:04 | NUR ---
DR ACKERMAN AT BEDSIDE
[2020-08-20 17:17] LABS: BASOPHILS # (AUTO) 0.1 /CMM (0.0-0.2); EOSINOPHILS % (AUTO) 5.7 % (0.0-6.0); HEMOGLOBIN 7.2 g/dL (13.5-17.5); LYMPHOCYTES # (AUTO) 1.5 /CMM (0.8-4.8); MONOCYTES # (AUTO) 1.2 /CMM (0.1-1.30)
[2020-08-20 17:20] LABS: BASOPHILS % (AUTO) 0.9 % (0.0-2.0); HEMATOCRIT 21 % (39-51); LYMPHOCYTES % (AUTO) 14.3 % (20.0-44.0); MEAN CORPUSCULAR HGB CONC 34 g/dl (31.0-36.0); MEAN CORPUSCULAR VOLUME 99 fL (80-96); MONOCYTES % (AUTO) 11.4 % (2.0-12.0); NEUTROPHILS # (AUTO) 7.2 /CMM (1.8-8.9); NEUTROPHILS % (AUTO) 67.7 % (43.0-81.0); PLATELET COUNT (AUTO) 249 /CMM (150-450); RED BLOOD CELL COUNT(AUTO) 2.13 MIL/uL (4.5-6.0); WHITE BLOOD COUNT (AUTO) 10.6 K/uL (4.3-11.0)
[2020-08-20 17:37] LABS: CALCIUM, SERUM 9.5 mg/dL (8.5-10.1); CARBON DIOXIDE 28 mmol/L (21-32); CHLORIDE 95 mmol/L (98-107); GLUCOSE 83 mg/dL (74-106); POTASSIUM 4.5 mmol/L (3.5-5.1); SODIUM SERUM 133 mmol/L (136-145)
--- NOTE | 2020-08-20 17:37 | NUR ---
ANTIONETTE LO AT BEDSIDE FOR EKG
[2020-08-20 17:41] LABS: CREATININE 9.9 mg/dL (0.6-1.3); UREA NITROGEN, BLOOD 108 mg/dL (7-18)
--- NOTE | 2020-08-20 18:16 | NUR ---
CALLED DR. ALICEA LEFT MSG.
--- NOTE | 2020-08-20 18:48 | NUR ---
RAPID AND PCR COVID SWAB DONE AND SENT TO LAB
--- NOTE | 2020-08-20 19:16 | NUR ---
REPORT GIVEN TO OLIVIER FORREST FOR DENNIS
--- NOTE | 2020-08-20 19:48 | NUR ---
PAGED VIP DR. AAMIR LICONA AUTOMOTIVE POWER ELECTRONICS ENGINEER
--- NOTE | 2020-08-20 19:50 | NUR ---
DR. ACKERMAN SPEAKING WITH DR. RUTLEDGE
--- NOTE | 2020-08-20 20:17 | NUR ---
TELE 102
--- NOTE | 2020-08-20 20:33 | NUR ---
REPORT GIVEN TO RICHARD FORREST FOR DENNIS
--- NOTE | 2020-08-20 20:58 | NUR ---
PT TRANSFERED PER ACLS PROTOCOL
[2020-08-20 21:10] VITALS: BP 111/72
--- NOTE | 2020-08-20 21:33 | NUR ---
RN NOTE PT ARRIVED TO THE UNIT VIA GURNEY, NON VERBAL, ON VENT VIA TRACH FIO2 40%, SATING 100% PT HAS UNLABORED BREATHING, ON TELE MONITOR SHOWING SR HR IN 70s. PT HAS G TUBE CLAMPED CHECKED FOR REPLACEMENT. SAFETY MEASURES IN PLACE.
[2020-08-20] MEDS ORDERED: Medication Not On Formulary EA (Ipratropium/Albuterol Sulfate (Duoneb 2.5-0.5 Mg/3 Ml So IH PRN (23:00)
[2020-08-20] MEDS ORDERED: NA PHOS,M-B/NA PHOS,DI-BA 1 EA ENEMA RC PRN (23:00)
[2020-08-20] MEDS ORDERED: ACETAMINOPHEN 325 MG TABLET PO PRN ×3 (23:00)
[2020-08-20] MEDS ORDERED: Z GUARD REMEDY 2 OZ OINT TP PRN (23:00)
[2020-08-20] MEDS ORDERED: HYDROCODONE/APAP 5/325MG TABLET PO PRN (23:00)
[2020-08-20] MEDS ORDERED: DEXTROSE 50%-WATER 50 ML DISP.SYRIN IV PRN (23:00)
[2020-08-20] MEDS ORDERED: ONDANSETRON HCL/PF 4 MG/2 ML VIAL IVP PRN (23:00)
[2020-08-20] MEDS ORDERED: BISACODYL SUPP (10 MG) 10 MG/SUPP.RECT SUPP.RECT RC PRN (23:00)
[2020-08-20] MEDS ORDERED: NEPRO VAN 237 ML CAN GT SCH (23:00)
[2020-08-20] MEDS ORDERED: ZOLPIDEM TARTRATE 5 MG TABLET PO PRN (23:00)
[2020-08-20] MEDS ORDERED: MISCELLANEOUS MED 1 EA EA GT PRN (23:00)
[2020-08-20] MEDS ORDERED: MIDODRINE HCL (5MG) 5 MG TABLET PO PRN (23:30)
[2020-08-20] MEDS ORDERED: ALBUTEROL FS 2.5 MG/3 ML VIAL.NEB NEB PRN (23:30)
[2020-08-20] MEDS ORDERED: IPRATROPIUM NEB FS 0.5 MG/2.5 ML AMPUL.NEB NEB PRN (23:30)
[2020-08-20] MEDS: NEPRO 1,000 ML BOTTLE GT PRN (23:42)
[2020-08-21] VITALS: BP 112/72
[2020-08-21] MEDS ORDERED: Medication Not On Formulary EA (Ipratropium/Albuterol Sulfate (Duoneb 2.5-0.5 Mg/3 Ml So IH SCH
[2020-08-21] MEDS: BLOOD SUGAR DIAGNOSTIC 1 EACH STRIP IN SCH ×4 (00:04→17:50)
[2020-08-21] MEDS: IPRATROPIUM NEB FS 0.5 MG/2.5 ML AMPUL.NEB NEB SCH ×4 (01:30→19:30)
[2020-08-21] MEDS: ALBUTEROL FS 2.5 MG/3 ML VIAL.NEB NEB SCH ×4 (01:30→19:30)
[2020-08-21 04:00] VITALS: BP 109/69
[2020-08-21 06:40] LABS: BASOPHILS # (AUTO) 0.1 /CMM (0.0-0.2); EOSINOPHILS % (AUTO) 5.9 % (0.0-6.0); HEMATOCRIT 24 % (39-51); HEMOGLOBIN 7.8 g/dL (13.5-17.5); LYMPHOCYTES # (AUTO) 1.3 /CMM (0.8-4.8); LYMPHOCYTES % (AUTO) 14.6 % (20.0-44.0); MEAN CORPUSCULAR HGB CONC 33 g/dl (31.0-36.0); MEAN CORPUSCULAR VOLUME 99 fL (80-96); MONOCYTES % (AUTO) 10.9 % (2.0-12.0); NEUTROPHILS # (AUTO) 6.1 /CMM (1.8-8.9); NEUTROPHILS % (AUTO) 67.6 % (43.0-81.0); PLATELET COUNT (AUTO) 257 /CMM (150-450); RED BLOOD CELL COUNT(AUTO) 2.38 MIL/uL (4.5-6.0)
[2020-08-21 06:52] LABS: CALCIUM, SERUM 9.4 mg/dL (8.5-10.1); MAGNESIUM 3.3 mg/dL (1.8-2.4); PHOSPHORUS 4.2 mg/dL (2.5-4.9); POTASSIUM 4.4 mmol/L (3.5-5.1)
[2020-08-21 06:55] LABS: CREATININE 10.5 mg/dL (0.6-1.3)
--- NOTE | 2020-08-21 07:23 | NUR ---
RN NOTE PT REMAINED STABLE DURING MY SHIFT REPORT GIVEN TO INCOMING NURSE WITH PLAN OF CARE SHIFT FOR DENNIS.
[2020-08-21] MEDS ORDERED: MIDODRINE HCL (5MG) 5 MG TABLET GT PRN (07:51)
[2020-08-21] MEDS ORDERED: HYDROCODONE/APAP 5/325MG TABLET GT PRN (07:52)
[2020-08-21] MEDS ORDERED: ZOLPIDEM TARTRATE 5 MG TABLET GT PRN (07:53)
[2020-08-21 08:00] VITALS: BP 125/68
[2020-08-21] MEDS: DOCUSATE SODIUM LIQ 100 MG/10 ML UDC GT SCH ×2 (08:11→16:41)
[2020-08-21] MEDS: CALCIUM ACETATE 667 MG TABLET GT SCH ×3 (08:11→16:41)
[2020-08-21] MEDS: PANTOPRAZOLE 40 MG/PACK PACK GT SCH (08:11)
[2020-08-21] MEDS: ACIDOPHILUS/BULGARICUS 1 EACH TAB.CHEW GT SCH ×2 (08:11→21:18)
[2020-08-21] MEDS: ATENOLOL 25 MG TABLET GT SCH (08:12)
[2020-08-21] MEDS: FIXODENT DENTURE ADHESIVE TUBE MM SCH ×2 (08:12→21:18)
[2020-08-21] MEDS: INSULIN REGULAR, HUMAN 100 UNIT/ML 3 ML VIAL SQ PRN ×2 (11:56→17:50)
[2020-08-21 12:00] VITALS: BP 106/55
[2020-08-21 16:00] VITALS: BP 110/65
--- NOTE | 2020-08-21 16:18 | NUR ---
RT NOTE PT RECEIVED ON VENTILATOR ON AC 14, VT 500, PEEP 5 40% FIO2. NO RESPIRATORY DISTRESS NOTED AT THIS TIME. VITAL SIGNS STABLE AT THIS TIME, AMBU BAG AT HEAD OF BED, EXTRA TRACH AT BED SIDE. VENT PLUGGED INTO RED OUTLET, ALARMS ON AND AUDIBLE. CONTINUE TO MONITOR PT THROUGHOUT SHIFT. Addendum: 08/21/20 at 1621 by NORMAN CLARK RT Amended: Links added.
--- NOTE | 2020-08-21 19:16 | NUR ---
RN NOTE RECEIVED PT NON VERBAL IN BED BUT RESPONSIVE TO TACTILE STIMULI. IN SEMI PEÑA'S POSITION. WITH TRACH CONNECTED TO VENT AND TOLERATING SETTINGS. TRACH MIDLINE AND IN PLACE, NO SIGNS OF RESPIRATORY DISTRESS, PAIN OR DISCOMFORT, NSR ON THE FITNESS CENTER ATTENDANT, GT PATENT AND IN PLACE VERIFIED BY AUSCULTATION. GT FLUSHED AND CLAMPED AT THIS TIME. TUBE FEEDING TO BE RESUMED AT 0000. RIGHT AC 20G IV PATENT AND WITHOUT COMPLICATIONS NOTED. ALARMS ON AND AUDIBLE, AMBU BAG AT BEDSIDE, VENT PLUGGED INTO RED OUTLET, SAFETY MEASURES IN PLACE PER PROTOCOL, BED LOCKED AND IN LOW POSITION, SIDE RAILS UP X 2, WILL MONITOR PATIENT AND CARRY OUT ACTIVE MD ORDERS.
--- NOTE | 2020-08-21 19:53 | NUR ---
RT pt received on mechanical vent with current settings. trached, portex 8 cuffed. vent plugged in to red outlet. alarms on and audible. ambu bag at hob. spare trach at bedside. thick yellow secretions suctioned via trach. no sob, no resp distress noted. trach secure and patent. neb tx not given at this time due to pending lab results. glenis rn, notified. will continue to monitor.
--- NOTE | 2020-08-21 19:55 | NUR ---
RN NOTE PT NOTED WITH NON FUNCTIONING LEFT SUBCLAVIAN HD PERMACATH. TAPED AND SECURED WITH DRESSING.
[2020-08-21 20:00] VITALS: BP 103/64
[2020-08-21] MEDS: VIT B CMPLX 3/FA/VIT C/BIOTIN 1 TAB TABLET GT SCH (21:18)
[2020-08-22] VITALS: BP 111/69
--- NOTE | 2020-08-22 | NUR ---
RN NOTE RESUMED GT FEEDING AT 70CC.HOUR ORDERED.
[2020-08-22] MEDS: BLOOD SUGAR DIAGNOSTIC 1 EACH STRIP IN SCH ×4 (00:04→17:37)
[2020-08-22] MEDS: NEPRO 1,000 ML BOTTLE GT PRN (01:15)
[2020-08-22] MEDS: ALBUTEROL FS 2.5 MG/3 ML VIAL.NEB NEB SCH ×4 (01:16→19:25)
[2020-08-22] MEDS: IPRATROPIUM NEB FS 0.5 MG/2.5 ML AMPUL.NEB NEB SCH ×4 (01:16→19:25)
--- NOTE | 2020-08-22 02:00 | NUR ---
RN NOTE COMPLETE BED BATH/AM CARE COMPLETED. PT TOLERATED WELL. GT PATENCY CONFIRMED BEFORE RESUMPTION OF TUBE FEEDING ORDERED, WILL CONTINUE TO MONITOR
[2020-08-22 04:00] VITALS: BP 109/70
--- NOTE | 2020-08-22 06:29 | NUR ---
RN NOTE NO ACUTE CHANGES OBSERVED OVERNIGHT. PT REMAINS NON VERBAL IN BED BUT RESPONSIVE TO VERBAL AND TACTILE STIMULI. IN SEMI PEÑA'S POSITION. WITH TRACH CONNECTED TO VENT AND TOLERATING SETTINGS ORDERED. TRACH MIDLINE AND IN PLACE, NO SIGNS OF RESPIRATORY DISTRESS, NO SIGNS OF PAIN OR DISCOMFORT, NSR ON THE LOOM BLOWER, GT PATENT AND IN PLACE VERIFIED BY AUSCULTATION AND ASPIRATION. TUBE FEEDING RUNNING ORDERED WITHOUT RESIDUAL NOTED. RIGHT AC 20G IV PATENT AND WITHOUT COMPLICATIONS NOTED. ALARMS ON AND AUDIBLE, AMBU BAG AT BEDSIDE, VENT PLUGGED INTO RED OUTLET, SPARE TRACH AT BEDSIDE, SAFETY MEASURES IN PLACE PER PROTOCOL, BED LOCKED AND IN LOW POSITION, SIDE RAILS UP X 2, WILL ENDORSE TO MORNING RN FOR DENNIS.
[2020-08-22 07:23] LABS: BASOPHILS # (AUTO) 0.1 /CMM (0.0-0.2); EOSINOPHILS % (AUTO) 5.5 % (0.0-6.0); HEMATOCRIT 23 % (39-51); HEMOGLOBIN 7.5 g/dL (13.5-17.5); LYMPHOCYTES # (AUTO) 1.5 /CMM (0.8-4.8); LYMPHOCYTES % (AUTO) 14.3 % (20.0-44.0); MEAN CORPUSCULAR HGB CONC 34 g/dl (31.0-36.0); MEAN CORPUSCULAR VOLUME 100 fL (80-96); MONOCYTES # (AUTO) 1.2 /CMM (0.1-1.30); MONOCYTES % (AUTO) 11.1 % (2.0-12.0); NEUTROPHILS # (AUTO) 7.2 /CMM (1.8-8.9); NEUTROPHILS % (AUTO) 68.1 % (43.0-81.0); PLATELET COUNT (AUTO) 273 /CMM (150-450); RED BLOOD CELL COUNT(AUTO) 2.25 MIL/uL (4.5-6.0); WHITE BLOOD COUNT (AUTO) 10.6 K/uL (4.3-11.0)
[2020-08-22 07:31] LABS: CALCIUM, SERUM 9.9 mg/dL (8.5-10.1); POTASSIUM 4.8 mmol/L (3.5-5.1)
[2020-08-22 07:33] LABS: CREATININE 12.1 mg/dL (0.6-1.3)
--- NOTE | 2020-08-22 07:56 | NUR ---
WOUND CARE CONSULT: PT FOLLOWED BY SURGICAL AND PODIATRY TEAMS FOR WOUND CARE. DEFER TO SURGICAL TEAMS FOR WOUND TREATMENT PLAN. RECOMMENDATIONS MADE FOR SKIN PROTECTION. DISCUSSED WITH NURSING STAFF. [place] [facility] [place] [facility] B[facility]. IN AGREEMENT WITH PLAN OF CARE.
[2020-08-22 08:00] VITALS: BP 105/59
[2020-08-22] MEDS: CALCIUM ACETATE 667 MG TABLET GT SCH ×3 (08:34→16:48)
[2020-08-22] MEDS: ACIDOPHILUS/BULGARICUS 1 EACH TAB.CHEW GT SCH ×2 (08:34→21:30)
[2020-08-22] MEDS: PANTOPRAZOLE 40 MG/PACK PACK GT SCH (08:34)
[2020-08-22] MEDS: DAKINS QUARTER STRENGTH (0.125%) 480 ML BOTTLE TOP SCH (08:35)
[2020-08-22] MEDS: ATENOLOL 25 MG TABLET GT SCH (08:35)
[2020-08-22] MEDS: DOCUSATE SODIUM LIQ 100 MG/10 ML UDC GT SCH ×2 (08:35→16:48)
[2020-08-22] MEDS: FIXODENT DENTURE ADHESIVE TUBE MM SCH ×2 (08:36→21:30)
[2020-08-22] MEDS: THERAHONEY GEL 1.5 OZ TUBE TP SCH (08:38)
[2020-08-22 12:00] VITALS: BP_SYST 104; BP_SYST 79; BP_DIAS 45; BP_DIAS 62
--- NOTE | 2020-08-22 14:30 | NUR ---
tele dental assistant medical assistant: notes wound tx to michelle heel, left hip, buttock, and sacral done as ordered. turned and repositioned. kept comfortable. hob elevated. pt tolerating g-tube feeding. will continue to monitor.
[2020-08-22 16:00] VITALS: BP 108/70
--- NOTE | 2020-08-22 16:10 | NUR ---
tele retail account representative: notes Obtained consent from daughter (classi) via phone with another nurse as a witnessed for <[employer] Surgical Debridement of left hip stage 3 with surrounding, DTI, right buttock stage 3 pressure ulcer and sacral stage 4 pressure, ulcer.
--- NOTE | 2020-08-22 17:00 | NUR ---
tele english adjunct faculty: notes noted left subclavian permacath completely out with no active bleeding noted. cn made aware. dr. an notified and made aware with no new order. dressing applied to site. will continue to monitor.
--- NOTE | 2020-08-22 18:30 | NUR ---
tele poultry eviscerator: notes dr. zelaya called and aware that his old permacath is out as stated with order to obtain consent for placement of the new dialysis catheter, bmp in am, and npo after midnight.
--- NOTE | 2020-08-22 18:40 | NUR ---
tele agricultural adviser: notes gamal will (daughter) notified and made aware that pt to have a procedure for placement of the new dialysis catheter and provided consents over the phone with another nurse as a witnessed.
--- NOTE | 2020-08-22 19:15 | NUR ---
m/s inside sales manager: notes report given to glenis (rn) for continuity of care.
--- NOTE | 2020-08-22 19:20 | NUR ---
RN NOTE RECEIVED PT NON VERBAL IN BED BUT RESPONSIVE TO VERBAL AND TACTILE STIMULI. IN SEMI PEÑA'S POSITION. WITH TRACH CONNECTED TO VENT AND TOLERATING SETTINGS ORDERED. TRACH MIDLINE AND IN PLACE, NO SIGNS OF RESPIRATORY DISTRESS, NO SIGNS OF PAIN OR DISCOMFORT, NSR ON THE PROFESSOR OF SOCIOLOGY, GT CLAMPED. NPO AFTER MIDNIGHT STATUS MAINTAINED FOR INSERTION OF HEMODIALYSIS CATHETER TOMORROW. NOTED WITH SIGNED CONSENT IN CHART. RIGHT AC 20G IV PATENT AND WITHOUT COMPLICATIONS NOTED. PT PENDING WOUND DEBRIDEMENT TOMORROW. SIGNED CONSENT IN CHART. ALARMS ON AND AUDIBLE, AMBU BAG AT BEDSIDE, VENT PLUGGED INTO RED OUTLET, SPARE TRACH AT BEDSIDE, SAFETY MEASURES IN PLACE PER PROTOCOL, BED LOCKED AND IN LOW POSITION, SIDE RAILS UP X 2, WILL MONITOR PATIENT AND CARRY OUT ACTIVE MD ORDERS.
[2020-08-22 20:00] VITALS: BP 103/61
[2020-08-22] MEDS: VIT B CMPLX 3/FA/VIT C/BIOTIN 1 TAB TABLET GT SCH (21:30)
[2020-08-23] VITALS: BP 96/63
[2020-08-23] MEDS: BLOOD SUGAR DIAGNOSTIC 1 EACH STRIP IN SCH ×4 (00:21→18:21)
[2020-08-23] MEDS: ALBUTEROL FS 2.5 MG/3 ML VIAL.NEB NEB SCH ×4 (01:41→19:34)
[2020-08-23] MEDS: IPRATROPIUM NEB FS 0.5 MG/2.5 ML AMPUL.NEB NEB SCH ×4 (01:41→19:34)
[2020-08-23 04:00] VITALS: BP 102/58
--- NOTE | 2020-08-23 06:34 | NUR ---
RN NOTE NO ACHRECEIVED PT NON VERBAL IN BED BUT RESPONSIVE TO VERBAL AND TACTILE STIMULI. IN SEMI PEÑA'S POSITION. WITH TRACH CONNECTED TO VENT AND TOLERATING SETTINGS ORDERED. TRACH MIDLINE AND IN PLACE, NO SIGNS OF RESPIRATORY DISTRESS, NO SIGNS OF PAIN OR DISCOMFORT, NSR ON THE HIGH PRESSURE CLEANER, GT CLAMPED. NPO AFTER MIDNIGHT STATUS MAINTAINED FOR INSERTION OF HEMODIALYSIS CATHETER TOMORROW. NOTED WITH SIGNED CONSENT IN CHART. RIGHT AC 20G IV PATENT AND WITHOUT COMPLICATIONS NOTED. PT PENDING WOUND DEBRIDEMENT TOMORROW. SIGNED CONSENT IN CHART. ALARMS ON AND AUDIBLE, AMBU BAG AT BEDSIDE, VENT PLUGGED INTO RED OUTLET, SPARE TRACH AT BEDSIDE, SAFETY MEASURES IN PLACE PER PROTOCOL, BED LOCKED AND IN LOW POSITION, SIDE RAILS UP X 2, WILL MONITOR PATIENT AND CARRY OUT ACTIVE MD ORDERS. Addendum: 08/23/20 at 0638 by JEWEL MARIE RN ERROR. NO CHANGES OBSERVED THROUGHOUT SHIFT. PT REMAINS NONVERBAL BUT PHYSICALLY RESPONSIVE TO VERBAL AND TACTILE STIMULI. PT REPOSITIONED FOR COMFORT. IN SEMI PEÑA'S POSITION. TRACH MIDLINE AND IN PLACE, RESPIRATIONS EVEN AND UNLABORED WHILE CURRENT VENT SETTINGS. NO SIGNS OF PAIN OR DISCOMFORT. NSR VIA TELE MONITOR, GT CLAMPED. NPO STATUS MAINTAINED FOR PROCEDURE TODAY. CONSENT SIGNED IN CHART. ALARMS ON AND AUDIBLE, AMBU BAG AT BEDSIDE, VENT PLUGGED INTO RED OUTLET, SPARE TRACH AT BEDSIDE, SAFETY MEASURES IN PLACE, WILL ENDORSE TO MORNING RN FOR DENNIS.
[2020-08-23 06:58] LABS: CALCIUM, SERUM 10.3 mg/dL (8.5-10.1); POTASSIUM 4.8 mmol/L (3.5-5.1)
--- NOTE | 2020-08-23 07:00 | NUR ---
RN OPENING NOTE RECEIVED PT IN BED NON VERBAL. WITH TRACH CONNECTED TO VENT, TOLERATING SETTINGS WELL. NO SOB OR ANY SIGNS OF RESPIRATORY DISTRESS. SATURATING @100%. NO SIGNS OF PAIN OR DISCOMFORT. SR ON TELE MONITOR. GT CLAMPED. NPO SINCE MIDNIGHT. FOR HD CATH INSERTION TODAY. CONSENT SIGNED. IV ACCESS ON RAC #20 INTACT AND PATENT. FOR WOUND DEBRIDEMENT TODAY. CONSENT SIGNED. SAFETY MEASURES IN PLACE. CALL LIGHT WITHIN REACH. BED LOCKED AND IN LOWEST POSITION WITH SIDE RAILS UP X2. WILL CONTINUE TO MONITOR.
[2020-08-23 08:00] VITALS: BP 110/60
[2020-08-23] MEDS: PANTOPRAZOLE 40 MG/PACK PACK GT SCH (09:00)
[2020-08-23] MEDS: DOCUSATE SODIUM LIQ 100 MG/10 ML UDC GT SCH ×2 (09:00→16:32)
[2020-08-23] MEDS: ATENOLOL 25 MG TABLET GT SCH (09:00)
[2020-08-23] MEDS: ACIDOPHILUS/BULGARICUS 1 EACH TAB.CHEW GT SCH ×2 (09:00→21:15)
[2020-08-23] MEDS: CALCIUM ACETATE 667 MG TABLET GT SCH ×3 (09:00→16:32)
[2020-08-23] MEDS: THERAHONEY GEL 1.5 OZ TUBE TP SCH (09:34)
[2020-08-23] MEDS: DAKINS QUARTER STRENGTH (0.125%) 480 ML BOTTLE TOP SCH (09:34)
[2020-08-23] MEDS: FIXODENT DENTURE ADHESIVE TUBE MM SCH ×2 (09:34→21:16)
[2020-08-23] MEDS ORDERED: LIDOCAINE HCL/MPF 1% 30 ML VIAL IJ ONE (09:37)
[2020-08-23] MEDS ORDERED: IOHEXOL 240MG/ML 50 ML IV ONE (09:37)
[2020-08-23] MEDS ORDERED: ANESTHESIA TRAY IN PYXIS 1 EA TRAY MC ONE (09:37)
[2020-08-23] MEDS ORDERED: HEPARIN SODIUM, PORCINE 1,000 UNIT/ML VIAL ONE (09:38)
[2020-08-23] MEDS ORDERED: MINERAL OIL 133 ML (PYXIS) 1 EA ENEMA RC PRN (10:00)
--- NOTE | 2020-08-23 10:45 | NUR ---
RT Pt transported to OR for procedure.
[2020-08-23 12:00] VITALS: BP 110/71
[2020-08-23] MEDS: NEPRO 1,000 ML BOTTLE GT PRN (13:14)
--- NOTE | 2020-08-23 14:30 | NUR ---
RN NOTES PT FOR HD. LEFT CHEST WALL HD IN PLACE. VS STABLE.
[2020-08-23 16:00] VITALS: BP 111/60
--- NOTE | 2020-08-23 16:30 | NUR ---
RN NOTES HD DONE. 1L OUTPUT. BP 101/60
--- NOTE | 2020-08-23 19:11 | NUR ---
RN CLOSING NOTE PT RESTING IN BED NON VERBAL. WITH TRACH CONNECTED TO VENT, TOLERATING SETTINGS WELL. NO SOB OR ANY SIGNS OF RESPIRATORY DISTRESS. SATURATING @100%. NO SIGNS OF PAIN OR DISCOMFORT. SR ON TELE MONITOR. GT FEEDING OF NEPRO @70CC/HR, NO RESIDUAL. IV ACCESS INTACT AND PATENT. LCW HD CATH IN PLACE, HD DONE, 1L OUTPUT. SAFETY MEASURES IN PLACE. CALL LIGHT WITHIN REACH. BED LOCKED AND IN LOWEST POSITION WITH SIDE RAILS UP X2. WILL ENDORSE TO NIGHT NURSE FOR DENNIS.
--- NOTE | 2020-08-23 19:20 | NUR ---
RN NOTE RECEIVED PT NON VERBAL IN BED IN SEMI PEÑA'S POSITION. WITH TRACH CONNECTED TO VENT AND TOLERATING SETTINGS. TRACH MIDLINE AND IN PLACE, NO SIGNS OF RESPIRATORY DISTRESS, NO SIGNS OF PAIN OR DISCOMFORT, NSR ON THE FORK LIFT TECHNICIAN, GT PLACEMENT CONFIRMED. NO RESIDUAL. WITH TUBE FEEDING RUNNING ORDERED AND TOLERATING WELL. PT IS S/P HD CATHETER INSERTION. RIGHT AC 20G IV PATENT AND WITHOUT COMPLICATIONS NOTED. PT PENDING WOUND DEBRIDEMENT. SIGNED CONSENT IN CHART. ALARMS ON AND AUDIBLE, AMBU BAG AT BEDSIDE, VENT PLUGGED INTO RED OUTLET, SPARE TRACH AT BEDSIDE, SAFETY MEASURES IN PLACE PER PROTOCOL, BED LOCKED AND IN LOW POSITION, SIDE RAILS UP X 2, WILL MONITOR PATIENT AND CARRY OUT ACTIVE MD ORDERS.
[2020-08-23 20:00] VITALS: BP 118/72
[2020-08-23] MEDS: VIT B CMPLX 3/FA/VIT C/BIOTIN 1 TAB TABLET GT SCH (21:15)
[2020-08-24] VITALS: BP 121/75
[2020-08-24] MEDS: ALBUTEROL FS 2.5 MG/3 ML VIAL.NEB NEB SCH ×4 (00:57→19:44)
[2020-08-24] MEDS: IPRATROPIUM NEB FS 0.5 MG/2.5 ML AMPUL.NEB NEB SCH ×4 (00:57→19:44)
[2020-08-24] MEDS: BLOOD SUGAR DIAGNOSTIC 1 EACH STRIP IN SCH ×4 (00:59→18:28)
[2020-08-24] MEDS: ACETAMINOPHEN 650 MG/20.3 ML UDC GT PRN ×2 (00:59→11:58)
[2020-08-24 04:00] VITALS: BP 104/56
--- NOTE | 2020-08-24 06:33 | NUR ---
RN NOTE NO ACUTE CHANGES OBSERVED THROUGHOUT THE NIGHT. REMAINS NON VERBAL IN BED IN SEMI PEÑA'S POSITION. TOLERATING VENT SETTINGS WELL. TRACHEA MIDLINE AND IN PLACE, NO SIGNS OF PAIN OR DISCOMFORT, NSR ON THE VP CLINICAL, GT PLACEMENT CONFIRMED VIA AUSCULTATION. NO RESIDUAL. WITH TUBE FEEDING RUNNING ORDERED AND TOLERATING WELL. LEFT CHEST WALL HD CATHETER INTACT WITHOUT BLEEDING NOTED AT SITE. RIGHT AC 20G IV PATENT AND WITHOUT COMPLICATIONS NOTED. PT PENDING WOUND DEBRIDEMENT. SIGNED CONSENT LOCATED IN CHART. ALARMS ON AND AUDIBLE, AMBU BAG AT BEDSIDE, VENT PLUGGED INTO RED OUTLET, SPARE TRACH AT BEDSIDE, SAFETY MEASURES IN PLACE PER PROTOCOL, BED LOCKED AND IN LOW POSITION, SIDE RAILS UP X 2, WILL ENDORSE TO MORNING RN FOR DENNIS.
--- NOTE | 2020-08-24 07:00 | NUR ---
RN OPENING NOTE RECEIVED PT IN BED NON VERBAL. WITH TRACH CONNECTED TO VENT, TOLERATING SETTINGS WELL. NO SOB OR ANY SIGNS OF RESPIRATORY DISTRESS. SATURATING @100%. NO SIGNS OF PAIN OR DISCOMFORT. SR ON TELE MONITOR. GT POSITIVE PLACEMENT CHECKED BY AUSCULTATION. FEEDING OF NEPRO @70CC/HR X18HRS. FEEDING OFF, WILL RESUME @1300. NO RESIDUAL. LCW HD CATH IN PLACE. IV ACCESS ON RAC #20 INTACT AND PATENT. SAFETY MEASURES IN PLACE. CALL LIGHT WITHIN REACH. BED LOCKED AND IN LOWEST POSITION WITH SIDE RAILS UP X2. WILL CONTINUE TO MONITOR.
[2020-08-24 08:00] VITALS: BP 97/63
[2020-08-24] MEDS: PANTOPRAZOLE 40 MG/PACK PACK GT SCH (08:44)
[2020-08-24] MEDS: THERAHONEY GEL 1.5 OZ TUBE TP SCH (08:44)
[2020-08-24] MEDS: DOCUSATE SODIUM LIQ 100 MG/10 ML UDC GT SCH ×2 (08:44→16:21)
[2020-08-24] MEDS: CALCIUM ACETATE 667 MG TABLET GT SCH ×3 (08:44→16:21)
[2020-08-24] MEDS: ACIDOPHILUS/BULGARICUS 1 EACH TAB.CHEW GT SCH (08:44)
[2020-08-24] MEDS: FIXODENT DENTURE ADHESIVE TUBE MM SCH (08:44)
[2020-08-24] MEDS: DAKINS QUARTER STRENGTH (0.125%) 480 ML BOTTLE TOP SCH (08:44)
[2020-08-24] MEDS: ATENOLOL 25 MG TABLET GT SCH (09:00)
--- NOTE | 2020-08-24 09:00 | NUR ---
RN NOTES BP OF 108/60, TENORMIN ON HOLD.
[2020-08-24] MEDS ORDERED: Nepro GT (11:38)
[2020-08-24 12:00] VITALS: BP 111/65
[2020-08-24] MEDS: INSULIN REGULAR, HUMAN 100 UNIT/ML 3 ML VIAL SQ PRN (12:14)
--- NOTE | 2020-08-24 12:14 | NUR ---
RN NOTES BLOOD SUGAR OF 81, NO INSULIN COVERAGE. TEMP OF 99.8, TYLENOL GIVEN. COOLING MEASURES PROVIDED.
[2020-08-24 15:57] VITALS: BP 98/56
[2020-08-24 16:00] VITALS: BP 98/56
[2020-08-24] MEDS: NEPRO 1,000 ML BOTTLE GT PRN (16:21)
--- NOTE | 2020-08-24 18:00 | NUR ---
RN NOTES BS OF 91, NO INSULIN COVERAGE.
--- NOTE | 2020-08-24 18:33 | NUR ---
RN CLOSING NOTES PT FOR DISCHARGE TO [facility]. REPORT GIVEN TO MARIELOS FORREST. WOUND CARE TREATMENT DONE. WOUND PICTURES TAKEN AND PLACED IN THE CHART. VACCINATION RECORD IS UP TO DATE. VS STABLE. PT NOT IN ANY DISTRESS. CHAINSTITCH HEMMER TIME AT 2100. WILL ENDORSE TO NIGHT NURSE.
[2020-08-24] MEDS ORDERED: ALBUMIN 25% 25 GM in PREMIX 1 EA IV SCH (19:30)
--- NOTE | 2020-08-24 20:25 | NUR ---
CRATE REPAIRER NOTE PT IN BED AWAKE. ON VENT/TRACH TOLERATING THE SETTINGS WELL. HD IN PROGRESS VSS. NO DISTRESS OR DISCOMFORT NOTED. NO S/S OF PAIN NOTED. PT IS NON VERBAL. GTF NEPRO INFUSING AT 70 ML/HR. DC'D SL RAC #20 G, SECURED THE SITE WITH 2X2 GAUZE. AMBULANCE PERSONAL ARRIVED TO TRANSFER THE PT TO [facility]. DAY SHIFT GAVE THE REPORT TO [facility] NURSE. REPORT GIVEN TO AMBULANCE PERSONAL. AFTER HD PT IS READY TO BE DISCHARGED. SIDE RAILS UP X 3 AND CALL LIGHT WITHIN REACH. WILL CONTINUE TO FOLLOW UP ONCE HD FINISHED.
--- NOTE | 2020-08-24 20:59 | NUR ---
UMBRELLA REPAIRER NOTE HD FINISHED NO OUTPUT. VSS. NO DISTRESS OR DISCOMFORT NOTED.
--- NOTE | 2020-08-24 21:24 | NUR ---
PLATE PAINTER APPRENTICE NOTE PT LEFT THE ROOM VIA [facility] WITH AMBULANCE PERSONAL. EXIT CARE AND PICTURES WERE DONE BY DAY SHIFT NURSE. PT IN STABLE CONDITION.
== END 2020-08-24 21:25 | DRG 466 ==
LOC: ER 16:12 → TELE1 20:32
PROVIDERS: ADMIT Internal Medicine; ATTEND Internal Medicine
PROC: 5A1955Z Respiratory Ventilation, Greater than 96 Consecutive Hours (ICD-10-PCS; principal; 2020-08-20)
PROC: 0JBR0ZZ Excision of Left Foot Subcutaneous Tissue and Fascia, Open Approach (ICD-10-PCS; 2020-08-22)
PROC: 0JBQ0ZZ Excision of Right Foot Subcutaneous Tissue and Fascia, Open Approach (ICD-10-PCS; 2020-08-22)
PROC: 0JH63XZ Insertion of Tunneled Vascular Access Device into Chest Subcutaneous Tissue and Fascia, Percutaneous Approach (ICD-10-PCS; 2020-08-23)
PROC: 02H633Z Insertion of Infusion Device into Right Atrium, Percutaneous Approach (ICD-10-PCS; 2020-08-23)
PROC: B518YZA Fluoroscopy of Superior Vena Cava using Other Contrast, Guidance (ICD-10-PCS; 2020-08-23)
PROC: 5A1D70Z Performance of Urinary Filtration, Intermittent, Less than 6 Hours Per Day (ICD-10-PCS; 2020-08-23)
DX: T82.42XA Displacement of vascular dialysis catheter, initial encounter (principal); I12.0 Hypertensive chronic kidney disease with stage 5 chronic kidney disease or end stage renal disease; N18.6 End stage renal disease; Z93.0 Tracheostomy status; Z99.11 Dependence on respirator [ventilator] status; G93.1 Anoxic brain damage, not elsewhere classified; J96.10 Chronic respiratory failure, unspecified whether with hypoxia or hypercapnia; L89.223 Pressure ulcer of left hip, stage 3; L89.313 Pressure ulcer of right buttock, stage 3; L89.154 Pressure ulcer of sacral region, stage 4; Y84.8 Other medical procedures as the cause of abnormal reaction of the patient, or of later complication, without mention of misadventure at the time of the procedure; E11.22 Type 2 diabetes mellitus with diabetic chronic kidney disease; E11.40 Type 2 diabetes mellitus with diabetic neuropathy, unspecified; Z99.2 Dependence on renal dialysis; E11.621 Type 2 diabetes mellitus with foot ulcer; K21.9 Gastro-esophageal reflux disease without esophagitis; R13.10 Dysphagia, unspecified; Z93.1 Gastrostomy status; Z79.4 Long term (current) use of insulin; Z20.822 Contact with and (suspected) exposure to COVID-19; L97.418 Non-pressure chronic ulcer of right heel and midfoot with other specified severity; L97.428 Non-pressure chronic ulcer of left heel and midfoot with other specified severity; E11.51 Type 2 diabetes mellitus with diabetic peripheral angiopathy without gangrene; I69.354 Hemiplegia and hemiparesis following cerebral infarction affecting left non-dominant side; D64.9 Anemia, unspecified; Y71.2 Prosthetic and other implants, materials and accessory cardiovascular devices associated with adverse incidents; Y92.129 Unspecified place in nursing home as the place of occurrence of the external cause
CPT/HCPCS: 31720; 36415; 71045-TC; 80048-TC; 80061-TC; 82728-TC; 82962-TC; 83540-TC; 83735-TC; 84100-TC; 84484-TC; 85025-TC; 85730-TC; 86850-TC; 87081-TC; 90935-TC; 94003-TC; 94760-TC; 94762-TC; 94799-TC; 99082-TC; A4216; A4623; A6253; A6403; A7526; C1750; C1757; C1769; C1894; C9803; G0378; J0690; J1644; J1815; J2704; J3490; P9047; Q9966; U0003

== ENCOUNTER 2020-08-29 14:39 | Inpatient (IN) | payer MEDICAID ==
[~2020-08-29] VITALS: Ht 172.7 cm; Wt 70.3 kg
[~2020-08-29 14:39] MED LIST changes: -ALLA266C2 TP; -BLOO-668 IN; -INSU100V3 SQ; +MIDO10TA GT; -MIDO10TA PO; +Nepro GT
--- NOTE | 2020-08-29 14:45 | NUR ---
The patient is BIB PA from SNF for episodes of vomitting (coffee ground). The patient and trach dependent. Not alert or oriented. Patient covered with a warm blanket and made him comfortable. Monitor attached. Will continue to monitor.
[2020-08-29] MEDS ORDERED: PANTOPRAZOLE 40 MG VIAL IV ONE (15:00)
[2020-08-29] MEDS ORDERED: PANTOPRAZOLE 40 MG VIAL ONE (15:15)
[2020-08-29 15:30] LABS: BASOPHILS % (AUTO) 0.1 % (0.0-2.0); EOSINOPHILS % (AUTO) 0.1 % (0.0-6.0); HEMATOCRIT 24 % (39-51); HEMOGLOBIN 7.8 g/dL (13.5-17.5); LYMPHOCYTES # (AUTO) 1.1 /CMM (0.8-4.8); LYMPHOCYTES % (AUTO) 5.8 % (20.0-44.0); MEAN CORPUSCULAR HGB CONC 33 g/dl (31.0-36.0); MEAN CORPUSCULAR VOLUME 99 fL (80-96); MONOCYTES # (AUTO) 1.6 /CMM (0.1-1.30); MONOCYTES % (AUTO) 8.4 % (2.0-12.0); NEUTROPHILS # (AUTO) 15.9 /CMM (1.8-8.9); NEUTROPHILS % (AUTO) 85.6 % (43.0-81.0); PLATELET COUNT (AUTO) 355 /CMM (150-450); RED BLOOD CELL COUNT(AUTO) 2.42 MIL/uL (4.5-6.0); WHITE BLOOD COUNT (AUTO) 18.6 K/uL (4.3-11.0)
--- NOTE | 2020-08-29 15:34 | NUR ---
covid swabs done and taken to the lab.
[2020-08-29 15:53] LABS: ALANINE AMINOTRANSFERASE 9 U/L (12-78); ALBUMIN 3.3 g/dL (3.4-5.0); ALKALINE PHOSPHATASE 120 U/L (46-116); ASPARTATE AMINOTRANSFERASE 34 U/L (15-37); BILIRUBIN,DIRECT 0.3 mg/dL (0.0-0.2); BILIRUBIN,TOTAL 0.9 mg/dL (0.2-1.0); CALCIUM, SERUM 10.1 mg/dL (8.5-10.1); CARBON DIOXIDE 34 mmol/L (21-32); CHLORIDE 98 mmol/L (98-107); CREATININE 7.2 mg/dL (0.6-1.3); GLUCOSE 115 mg/dL (74-106); LIPASE 89 U/L (73-393); POTASSIUM 3.5 mmol/L (3.5-5.1); SODIUM SERUM 142 mmol/L (136-145); TOTAL PROTEIN, SERUM 8.2 g/dL (6.4-8.2); UREA NITROGEN, BLOOD 59 mg/dL (7-18)
[2020-08-29 16:13] LABS: LYMPHOCYTES % (MANUAL) 10 % (16-48); MONOCYTES % (MANUAL) 6 % (0-11.0); NEUTROPHILS % (MANUAL) 84 (42-76)
[2020-08-29] MEDS ORDERED: PIPERACILLIN /TAZOBACTAM 3.375 G in IV D5W 50 ML IV ONE (16:30)
--- NOTE | 2020-08-29 16:30 | NUR ---
RT Received patient in ER from transport RT @3773. Pt placed on AC RR 14/VT 500/+5/35% per MD orders with Portex 8 cuffed trach. Ambu bag and back up trach at bedside. No SOB noted. Will continue to monitor
--- NOTE | 2020-08-29 16:43 | NUR ---
NURSING SUP GAVE RIMMA BED 101.
--- NOTE | 2020-08-29 16:46 | NUR ---
CORRECTION, NURSING SUP GAVE 120 RIMMA.
[2020-08-29] MEDS ORDERED: VANCOMYCIN 1 GM in IV D5W 250 ML IV ONE (17:00)
--- NOTE | 2020-08-29 18:08 | NUR ---
Transfered the patient to room 120-1 per ACLS protocol and with RT. The patient left the ER in stable condition.
[2020-08-29] MEDS ORDERED: Z GUARD REMEDY 2 OZ OINT TP PRN (18:30)
[2020-08-29] MEDS ORDERED: ACETAMINOPHEN 650 MG/SUPP.RECT RC PRN (18:30)
[2020-08-29] MEDS ORDERED: ONDANSETRON HCL/PF 4 MG/2 ML VIAL IVP PRN (18:30)
[2020-08-29] MEDS ORDERED: IV D5/0.45 NACL 1,000 ML IV PRN (18:30)
--- NOTE | 2020-08-29 18:45 | NUR ---
RN NOTES RECEIVED PT FROM ER. REPORT GIVEN BY CRISSY FORREST. PT AWAKE, NON VERBAL. ON MECH VENT, TOLERATING VENT SETTINGS WELL. SR ON TELE MONITOR. SACRAL WOUND AND BOTH HEELS NOTED. IV ACCESS ON ALEX #20 INTACT AND PATENT WITH ONGOING IV VANCO. LCW HD CATH IN PLACE. GT CLAMPED. NPO STATUS. NO BELONGINGS. PLACED IN BED. BED LOCKED AND AT LOWEST POSITION WITH SIDE RAILS UP X2. SAFETY MEASURES MAINTAINED. WILL ENDORSE TO NIGHT NURSE FOR DENNIS.
[2020-08-29] MEDS ORDERED: VANCOMYCIN 500 MG in IV D5W 100 ML IV PRN (19:00)
--- NOTE | 2020-08-29 19:30 | NUR ---
RN OPENING NOTES: RECEIVED NON VERBAL PT IN BED RESTING COMFORTABLY. PATIENT IN NO S/SX OF ACUTE DISTRESS AT THIS TIME. NO SOB NOTED. PATIENT'S BREATHING IS EVEN AND UNLABORED. PATIENT ON TRACH AND ON MECHANICAL VENT SUPPORT ; SETTINGS PRESCRIBED; PT TOLERATED WELL. AMBU BAG AT BED SIDE ALARMS SET PER PROTOCOL AND AUDIBLE. VENT PLUGGED IN TO RED OUTLET. NO DISTRESS NOTED. PATIENT ON TELE MONITORING READING SINUS RHYTHM HR IS @84 AT THE TIME OF RECEIVED. PATIENT HAS G TUBE CLAMPED AT THIS TIME. NO RESIDUAL TAKEN AT THIS TIME; SITE CLEAN DRY. PATIENT ON NPO AT THIS TIME. NOTED IV SITE ON R UA MIDLINE #18;PATENT, INTACT AND FLUSHING WELL; NO S/S OF INFECTION OR INFILTRATION.RIGHT WRIST SOFT RESTRAINTS IN PLACED, ASSESSED PER PROTOCOL. SAFETY MEASURES HAVE BEEN PROVIDED AND IMPLEMENTED. PATIENT BED ALARM IS ON. HEAD OF BED ELEVATED. BED IS LOCKED, IN LOWEST POSITION AND SIDE RAILS UP. CALL LIGHT WITHIN REACH OF THE PATIENT. APPLICABLE ISOLATION PRECAUTIONS IN PLACE. WILL CONTINUE TO MONITOR AND REASSESS FOR ANY CHANGES AND WILL CARRY OUT ANY ADMISSION AND ACTIVE MD ORDER.
[2020-08-29 20:00] VITALS: BP 102/72
[2020-08-29] MEDS ORDERED: CEFEPIME 1 GM in IV D5W 50 ML IV SCH (22:00)
--- NOTE | 2020-08-29 22:00 | NUR ---
RN NOTES REGULAR SUCTIONING AND TURNING DONE, PATIENT TOLERATED WELL. AUTOCAD DETAILER MADE AWARE. WILL CONTINUE TO MONITOR AND ASSESS THROUGHOUT THE SHIFT.
--- NOTE | 2020-08-29 22:45 | NUR ---
RN NOTES CALLED MAC MCNEIL( DAUGHTER OF PATIENT) CONFIRMED FOR CODE STATUS OF PATIENT FULL CODE , ALSO OBTAINED VERBAL CONSENT FOR HEMODIALYSIS OF PATIENT WITNESSED BY BUSINESS PERFORMANCE SPECIALIST. CONSENT SECURED.
--- NOTE | 2020-08-29 23:00 | NUR ---
RN NOTES PATIENT REMAINS IN NO ACUTE RESPIRATORY DISTRESS AT THIS TIME, NO CHANGES TO CONDITION/STATUS. RESTRICTIVE PREPARATION OPERATOR WELL AWARE. WILL CONTINUE TO MONITOR AND REASSESS FOR ANY CHANGES THROUGHOUT THE SHIFT
[2020-08-30 01:00] VITALS: BP 101/59
--- NOTE | 2020-08-30 02:00 | NUR ---
RN NOTES REGULAR SUCTIONING AND TURNING DONE, PATIENT TOLERATED WELL. FUNERAL PRE ARRANGEMENT SPECIALIST MADE AWARE. WILL CONTINUE TO MONITOR AND ASSESS THROUGHOUT THE SHIFT.
--- NOTE | 2020-08-30 03:00 | NUR ---
RN NOTES NO CHANGES IN PATIENT CONDITION AT THIS TIME PATIENT VITALS STABLE, NO SIGNS OF ACUTE RESPIRATORY DISTRESS. PATIENT STILL IN BED SLEEPING COMFORTABLY. NO COMPLAINTS OF PAIN OR ANY DISCOMFORT AT THIS TIME. WILL CONTINUE TO MONITOR AND REASSESS FOR ANY CHANGES THROUGHOUT THE SHIFT.
--- NOTE | 2020-08-30 03:48 | NUR ---
RT NOTE Received Pt on AC RR 14 500 35% +5 per MD orders with Portex 8 cuffed trach. Plugged into red outlet and alarms on and audible Ambu bag and back up trach at bedside. Will continue to monitor t/o shift
[2020-08-30 04:00] VITALS: BP 102/70
--- NOTE | 2020-08-30 06:00 | NUR ---
RN NOTES REGULAR SUCTIONING AND TURNING DONE, PATIENT TOLERATED WELL. COMPUTER SYSTEMS SUPPORT SPECIALIST MADE AWARE. WILL CONTINUE TO MONITOR AND ASSESS THROUGHOUT THE SHIFT.
[2020-08-30 06:56] LABS: BASOPHILS # (AUTO) 0.1 /CMM (0.0-0.2); BASOPHILS % (AUTO) 0.7 % (0.0-2.0); EOSINOPHILS % (AUTO) 1.1 % (0.0-6.0); HEMATOCRIT 25 % (39-51); HEMOGLOBIN 8.2 g/dL (13.5-17.5); LYMPHOCYTES # (AUTO) 1.9 /CMM (0.8-4.8); LYMPHOCYTES % (AUTO) 11.4 % (20.0-44.0); MEAN CORPUSCULAR HGB CONC 33 g/dl (31.0-36.0); MEAN CORPUSCULAR VOLUME 98 fL (80-96); MONOCYTES # (AUTO) 1.9 /CMM (0.1-1.30); MONOCYTES % (AUTO) 11.6 % (2.0-12.0); NEUTROPHILS # (AUTO) 12.4 /CMM (1.8-8.9); NEUTROPHILS % (AUTO) 75.2 % (43.0-81.0); PLATELET COUNT (AUTO) 366 /CMM (150-450); RED BLOOD CELL COUNT(AUTO) 2.56 MIL/uL (4.5-6.0); WHITE BLOOD COUNT (AUTO) 16.5 K/uL (4.3-11.0)
--- NOTE | 2020-08-30 07:00 | NUR ---
RN CLOSING NOTE: PATIENT REMAINS IN ROOM IN NO SIGNS OF RESPIRATORY DISTRESS; STILL ON VENT SETTING PER ORDERED. SAFETY MEASURES IMPLEMENTED, BED IN LOWEST POSITION, LOCKED, SIDE RAILS UP, CALL LIGHT WITHIN REACH. ALL NEEDS AND ORDERS ADDRESSED DURING THE SHIFT. IV ACCESS MAINTAINED INTACT, SECURED AND FLUSHING WELL. SKIN CARE AND WOUND CARE DONE PART OF PATIENT CARE.ALL DUE MEDS GIVEN ORDERED & SCHEDULED ; PATIENT TOLERATED WELL. PATIENT KEPT CLEAN AND COMFORTABLE WITHIN THE SHIFT. PATIENT ENDORSED TO INCOMING SHIFT RN WITH STABLE VITAL SIGN AND FOR CONTINUITY OF CARE.
[2020-08-30 07:28] LABS: CALCIUM, SERUM 9.9 mg/dL (8.5-10.1); MAGNESIUM 2.9 mg/dL (1.8-2.4); PHOSPHORUS 3.6 mg/dL (2.5-4.9); POTASSIUM 3.5 mmol/L (3.5-5.1)
--- NOTE | 2020-08-30 07:30 | NUR ---
RN OPENING NOTE PATIENT PRESENT IN BED, NON-VERBAL, ON VENT SETTINGS, TOLERATING WELL, SPO2 IS 99-100%, NO SOB OR DISTRESS NOTED, NSR ON MONITOR, HD CATH ON L SUBCLAVIAN AREA, RIGHT POSTURE NOTED, NPO STATUS NOTED, G-TUBE PRESENT IN CLUMPED, HYPOACTIVE BOWEL SOUNDS PRESENT IN 4 QUADRANTS,
--- NOTE | 2020-08-30 07:35 | NUR ---
RN OPENING NOTES CONT BED IS LOCKED, SIDE RAILS UP, R UA MIDLINE INTACT AND PATENT, SAFETY MEASURES IMPLEMENTED, WILL CONT TO MONITOR
[2020-08-30 07:40] LABS: CREATININE 8.5 mg/dL (0.6-1.3)
[2020-08-30 08:00] VITALS: BP 106/84
[2020-08-30] MEDS: PANTOPRAZOLE 40 MG VIAL IV SCH (08:30)
[2020-08-30] MEDS ORDERED: COLL30OI TP (08:52)
[2020-08-30] MEDS ORDERED: ONDA4TAB5 GT (08:52)
[2020-08-30] MEDS ORDERED: ZINC1CAP2 GT (08:52)
[2020-08-30] MEDS ORDERED: INSU100V3 SQ (08:52)
[2020-08-30] MEDS ORDERED: ACET-868 GT (08:52)
[2020-08-30 12:00] VITALS: BP 107/71
--- NOTE | 2020-08-30 14:16 | NUR ---
consent for EGD obtained from pt's daughter Classi via phone
[2020-08-30 16:00] VITALS: BP 128/75
--- NOTE | 2020-08-30 17:50 | NUR ---
patient financial specialist at bed site, procedure initiated, BP 117/68, HR 100
--- NOTE | 2020-08-30 18:30 | NUR ---
RN CLOSING NOTES PATIENT MOVED TO [facility], RECEIVING DIALYSES AT THIS MOMENT, NO ACUTE CHANGES THROUGH THE SHIFT IN CONDITION OR SETTINGS, NPO STATUS, EGD WILL BE TOMORROW AT 3PM, CONSENT OBTAINED, COMFORT NEEDS ATTENDED, REPOSITIONING AND WOUND CARE DONE, WILL ENDORSE TO PM SHIFT RN FOR DENNIS
--- NOTE | 2020-08-30 19:10 | NUR ---
RN NOTES: RECEIVED LYING ON BED, SEMI FOWLERS POSITION,ON TELE MONITOR SR-98,NON VERBAL , WITH TRACH#8,AC-14, TV-500 FiO2-35 PEEP-5 O2-SAT-100%, INCONTINENT BOTH BOWEL AND BLADDER, ON NPO, G-TUBE CLUMPED,FOR EGD-08/31/2020 AT 1530, ALEX-MIDLINE G#18 WITH NS@TKO,WHILE DOING ENDORSEMENT, PATIENT WAS ABOUT TO FINISHED DIALYSIS SESSION FOR TUESDAY. PER DIALYSIS NURSE/KHUSHI UNABLE TO DO DIALYSIS, OUTPUT=0 BECAUSE PATIENT HAS PERIODS OF HYPOTENSION BP70/40 NOT TOLERATED, DURING ENDORSEMENT TIME HIS BP IMPROVED A LITTLE BP-115/77.FALL,SAFETY AND ASPIRATION PRECAUTION OBSERVED, HE HAS SOFT RESTRAINT ON THE RIGHT HAND, MONITOR FOR CIRCULATION.NO REDNESS NOR SIGN OF IMPAIRED CIRCULATION.KEPT ON CLOSE WATCH.
[2020-08-30 20:00] VITALS: BP 111/77
--- NOTE | 2020-08-30 20:05 | NUR ---
RN NOTES: -DURING ROUNDS HE WAS ASLEEP, BP-117/77 NJ-100. -CUSTOMER CONTACT REPRESENTATIVE FOR INFECTIOUS DISEASE STEVIE ON HIM, NOTIFIED PATIENT DID NOT HAVE HIS DIALYSIS FOR TODAY DUE TO LOW BP BUT RIGHT NOW HE IS IMPROVING BP-116/74, ON EDGE INKER HEELS.NO NEW ORDER.
[2020-08-30] MEDS ORDERED: MEROPENEM 500 MG VIAL IV ONE (20:56)
--- NOTE | 2020-08-30 20:58 | NUR ---
RN NOTES: -DUE FOR MERREM 500 MG AT 100ML/HR, RN/CHARGE NURSE NOTIFIED, TAKEN FROM [facility],MANUALLY ENTERED BAR CODE.IV/ANTIBIOTIC GIVEN.
[2020-08-30] MEDS ORDERED: MEROPENEM 500 MG in IV NS 0.9% 50 ML IV SCH (21:00)
[2020-08-30] MEDS ORDERED: MEROPENEM 500 MG in IV NS 0.9% 50 ML IV ONE (21:30)
[2020-08-31] VITALS (7 sets, daily range): BP systolic 96–112; BP diastolic 53–74
--- NOTE | 2020-08-31 01:24 | NUR ---
RN NOTES: -BP-95/60, IVF D5%1/2NS AT 50ML/HR STARTED , KEPT ON CLOSE WATCH.IVF TOLERATED.
--- NOTE | 2020-08-31 02:20 | NUR ---
RN NOTES: MORNING CARE DONE, SPONGE BATH RENDERED, DRESSING DONE ON THE RIGHT AND LEFT HEEL, ON THE BUTTOCKS, SACRUM AND BOTH FOOT,KEPT COMFORTABLE IN BED.
--- NOTE | 2020-08-31 05:12 | NUR ---
RN NOTES: TURNING AND REPOSITIONING DONE,OFF LOADING OBSERVED. BP-114/73, NEEDS ATTENDED.
[2020-08-31 05:52] LABS: BASOPHILS # (AUTO) 0.1 /CMM (0.0-0.2); BASOPHILS % (AUTO) 0.6 % (0.0-2.0); EOSINOPHILS % (AUTO) 1.6 % (0.0-6.0); HEMATOCRIT 24 % (39-51); HEMOGLOBIN 7.7 g/dL (13.5-17.5); LYMPHOCYTES # (AUTO) 1.3 /CMM (0.8-4.8); LYMPHOCYTES % (AUTO) 9.3 % (20.0-44.0); MEAN CORPUSCULAR HGB CONC 32 g/dl (31.0-36.0); MEAN CORPUSCULAR VOLUME 101 fL (80-96); MONOCYTES # (AUTO) 1.7 /CMM (0.1-1.30); MONOCYTES % (AUTO) 12.5 % (2.0-12.0); NEUTROPHILS # (AUTO) 10.5 /CMM (1.8-8.9); PLATELET COUNT (AUTO) 318 /CMM (150-450); RED BLOOD CELL COUNT(AUTO) 2.35 MIL/uL (4.5-6.0); WHITE BLOOD COUNT (AUTO) 13.7 K/uL (4.3-11.0)
[2020-08-31] MEDS ORDERED: MEROPENEM 500 MG in IV NS 0.9% 50 ML IV SCH (06:24)
[2020-08-31 06:25] LABS: PHOSPHORUS 4.1 mg/dL (2.5-4.9); POTASSIUM 3.7 mmol/L (3.5-5.1)
[2020-08-31 06:38] LABS: CREATININE 8.7 mg/dL (0.6-1.3)
--- NOTE | 2020-08-31 06:39 | NUR ---
RN NOTES: -HAD LABS IN THE MORNING, KEPT NPO, PEG CLUMPED, FOR EGD THIS AFTERNOON, PRE-OP CHECKLIST STARTED, TO OBTAIN REMAINING CONSENT FOR EGD(BT CONSENT PENDING),ASPIRATION PRECAUTION OBSERVED, MONITORED RIGHT HAND ON SOFT RESTRAINED, LEFT HAND NO RESTRAINT, MORE COOPERATIVE, NOT RESTLESS NOR AGGRESSIVE, NO ATTEMPTS TO PULL OUT HIS IV TUBINGS AND VENTILATOR TUBING.ON CLOSE VISUAL CHECK, LATEST BP-103/72 [place]-88 SPO2-99%, NON LABORED BREATHING.ENDORSED FOR CONTINUITY OF CARE.
[2020-08-31] MEDS: MEROPENEM 500 MG in IV NS 0.9% 50 ML IV SCH ×2 (08:20→20:37)
[2020-08-31] MEDS: PANTOPRAZOLE 40 MG VIAL IV SCH (08:21)
[2020-08-31] MEDS ORDERED: MEROPENEM 500 MG in IV NS 0.9% 100 ML IV SCH (09:00)
[2020-08-31] MEDS ORDERED: MIDAZOLAM HCL 2 MG/2ML VIAL ONE (14:21)
[2020-08-31] MEDS: NEPRO 1,000 ML BOTTLE GT PRN ×2 (17:29→18:33)
[2020-08-31] MEDS ORDERED: Medication Not On Formulary EA (Ipratropium/Albuterol Sulfate (Duoneb 2.5-0.5 Mg/3 Ml So IH PRN (17:30)
[2020-08-31] MEDS ORDERED: BISACODYL SUPP (10 MG) 10 MG/SUPP.RECT SUPP.RECT RC PRN (17:30)
[2020-08-31] MEDS ORDERED: ALBUTEROL FS 2.5 MG/0.5 ML VIAL.NEB NEB PRN (18:00)
[2020-08-31] MEDS ORDERED: MIDODRINE HCL (5MG) 5 MG TABLET GT PRN (18:00)
[2020-08-31] MEDS ORDERED: IPRATROPIUM NEB FS 0.5 MG/2.5 ML AMPUL.NEB NEB PRN (18:00)
--- NOTE | 2020-08-31 19:32 | NUR ---
RN NOTES PATIENT IN BED WITH HEAD OF BED ELEVATED. OBT[facility]DED. [facility], TOLERATING SETTINGS WELL. TELE MONITOR ON, SR 80'S. WITH RIGHT HAND RESTRAINTS, CIRCULATION AND SKIN CHECKED. NO S/S OF SKIN BREAKDOWN. G-TUBE PATENT AND INTACT, RUNNING NEPRO 30ML/HR. IV ACCESS ON LEFT HAND #20 PATENT AND INTACT. BED LOCKED AND IN LOWEST POSITION. SIDE RAILS UP X2. CALL LIGHT WITHIN REACH. WILL CONTINUE TO MONITOR.
--- NOTE | 2020-08-31 20:18 | NUR ---
RT pt received on mechanical vent with current settings. trached portex 8. vent plugged in to red outlet. ambu bag at hob. hob at 45 degrees. small thick white secretions suctioned via trach. no sob, no resp distress at this time. pt alert. will continue to monitor.
[2020-08-31] MEDS: VIT B CMPLX 3/FA/VIT C/BIOTIN 1 TAB TABLET GT SCH (21:05)
[2020-08-31] MEDS: ACIDOPHILUS/BULGARICUS 1 EACH TAB.CHEW GT SCH (21:05)
[2020-09-01] VITALS: BP 99/72
[2020-09-01 04:00] VITALS: BP 93/74
--- NOTE | 2020-09-01 06:47 | NUR ---
RN NOTE PATIENT IN BED WITH HEAD OF BED ELEVATED. OBTUNDED. ON [facility], TOLERATING SETTINGS WELL. TELE MONITOR ON, SR 90'S. WITH RIGHT HAND RESTRAINTS, CIRCULATION AND SKIN CHECKED. NO S/S OF SKIN BREAKDOWN. G-TUBE PATENT AND INTACT, RUNNING NEPRO 40ML/HR, NO RESIDUAL NOTED. IV ACCESS ON LEFT HAND #20 PATENT AND INTACT. KEPT CLEAN AND DRY. ALL DUE MEDS GIVEN ORDERED. BED LOCKED AND IN LOWEST POSITION. SIDE RAILS UP X2. CALL LIGHT WITHIN REACH. WILL ENDORSE TO ONCOMING SHIFT.
[2020-09-01 06:52] LABS: BASOPHILS # (AUTO) 0.1 /CMM (0.0-0.2); EOSINOPHILS % (AUTO) 3.1 % (0.0-6.0); HEMATOCRIT 23 % (39-51); HEMOGLOBIN 7.6 g/dL (13.5-17.5); LYMPHOCYTES # (AUTO) 1.5 /CMM (0.8-4.8); LYMPHOCYTES % (AUTO) 11.4 % (20.0-44.0); MEAN CORPUSCULAR HGB CONC 33 g/dl (31.0-36.0); MEAN CORPUSCULAR VOLUME 100 fL (80-96); MONOCYTES # (AUTO) 1.8 /CMM (0.1-1.30); MONOCYTES % (AUTO) 13.5 % (2.0-12.0); NEUTROPHILS # (AUTO) 9.5 /CMM (1.8-8.9); PLATELET COUNT (AUTO) 329 /CMM (150-450); RED BLOOD CELL COUNT(AUTO) 2.35 MIL/uL (4.5-6.0); WHITE BLOOD COUNT (AUTO) 13.4 K/uL (4.3-11.0)
[2020-09-01 07:07] LABS: CALCIUM, SERUM 10.1 mg/dL (8.5-10.1); MAGNESIUM 3.1 mg/dL (1.8-2.4); PHOSPHORUS 4.8 mg/dL (2.5-4.9); POTASSIUM 3.8 mmol/L (3.5-5.1)
[2020-09-01 07:09] LABS: CREATININE 10.1 mg/dL (0.6-1.3)
--- NOTE | 2020-09-01 07:24 | NUR ---
RECEIVED PATIENT IN BED. NO ACUTE DISTRESS NOTED. PATIENT NONVERBAL, OBTUNDED, BUT PATIENT OPENS EYES. PATIENT TRACH'D, ON MECHANICAL VENTILATOR, TOLERATING SETTINGS WELL. PATIENT ON ENTERPRISE APPLICATION ADMINISTRATOR, NSR NOTED. PATIENT G-TUBE IN PLACE, INTACT, PATENT. PATIENT L HAND IV ACCESS INTACT, PATENT. PATIENT R HAND SOFT WRIST RESTRAINTS IN PLACE. PATIENT SAFETY MEASURES MAINTAINED. WILL CONTINUE TO MONITOR.
[2020-09-01 08:00] VITALS: BP 97/70
[2020-09-01] MEDS: CALCIUM ACETATE 667 MG TABLET GT SCH ×3 (08:48→16:10)
[2020-09-01] MEDS: MEROPENEM 500 MG in IV NS 0.9% 50 ML IV SCH ×2 (08:48→20:39)
[2020-09-01] MEDS: PANTOPRAZOLE 40 MG VIAL IV SCH (08:48)
[2020-09-01] MEDS: ATENOLOL 25 MG TABLET GT SCH (08:49)
[2020-09-01] MEDS: ZINC SULFATE 220 MG CAPSULE GT SCH (08:49)
[2020-09-01] MEDS: ACIDOPHILUS/BULGARICUS 1 EACH TAB.CHEW GT SCH ×2 (08:49→20:39)
[2020-09-01] MEDS: PROSOURCE / PROSTAT (PYXIS) 30 ML UDC GT SCH ×2 (08:50→16:10)
[2020-09-01] MEDS ORDERED: THERAHONEY GEL 1.5 OZ TUBE TP SCH (09:00)
[2020-09-01] MEDS ORDERED: COLLAGENASE 30 GM TUBE TP SCH (09:00)
--- NOTE | 2020-09-01 09:14 | NUR ---
WOUND CARE CONSULT: REVIEWED CHART, NURSING DOCUMENTATION AND PHOTOS WHICH INDICATE MULTIPLE WOUNDS, PRESENT ON ADMISSION. DR MARIEE AND DR LAM NOTIFIED OF SURGICAL AND DPM CONSULT REQUESTS. PT IS ON FIRST STEP [facility] AIRSS MATTRESS. RECOMMENDATIONS MADE FOR SKIN PROTECTION. DISCUSSED WITH NURSING STAFF. MD IN AGREEMENT WITH PLAN OF CARE.
[2020-09-01] MEDS: FIXODENT DENTURE ADHESIVE TUBE MM SCH ×2 (09:21→20:59)
[2020-09-01] MEDS ORDERED: THERAHONEY GEL 1.5 OZ TUBE TP PRN (10:30)
[2020-09-01 12:00] VITALS: BP 107/76
[2020-09-01 16:00] VITALS: BP 126/91
--- NOTE | 2020-09-01 18:44 | NUR ---
PATIENT IN BED. NO ACUTE DISTRESS NOTED. PATIENT NONVERBAL, OBTUNDED, BUT PATIENT OPENS EYES. PATIENT TRACH'D, ON MECHANICAL VENTILATOR, TOLERATING SETTINGS WELL. PATIENT ON COMMISSIONS MANAGER, NSR NOTED. PATIENT G-TUBE IN PLACE, INTACT, PATENT. PATIENT L HAND IV ACCESS INTACT, PATENT. PATIENT R HAND SOFT WRIST RESTRAINTS IN PLACE. PATIENT SAFETY MEASURES MAINTAINED. WILL ENDORSE PLAN OF CARE TO ONCOMING SHIFT
[2020-09-01 20:00] VITALS: BP 124/80
--- NOTE | 2020-09-01 20:35 | NUR ---
RN OPENING NOTE RECEIVED PATIENT IN BED RESTING OBTUNDED NON VERBAL ON MECHANICAL VENT ON SETTING TRACH PORTEX #8 AC 14TV 500 FIO2:35% PEEP 5 O2;100%.ON G-TUBE FEEDING NEPRO 40CC/HR GOAL IS [address] NO RESIDUAL IV SITE IS LEFT UPPER CHEST PERM-CATH AND LEFT HAND INTACT PATENT BED IN LOW POSITON AND LOCKED HEAD OF THE BED ELEVATED,SAFETY MEASURE IMPLEMENT CONTINUE TO MONITOR.
[2020-09-01] MEDS: VIT B CMPLX 3/FA/VIT C/BIOTIN 1 TAB TABLET GT SCH (21:02)
[2020-09-02] VITALS: BP 123/79
[2020-09-02 04:00] VITALS: BP 112/76
--- NOTE | 2020-09-02 06:27 | NUR ---
RN CLOSING NOTE PATIENT REMAINS ON OBTUNDED ON MECHANICAL VENT SETTING TRACH PORTEX #8 AC 14 FIO2:30% PEEP 5 O2:100% IV SITE IS LEFT UPPER CHEST PERM-CATH DRESSING INTACT PATENT,LEFT HAND INTACT PATENT ALL DUE MEDS GIVEN MD ORDERED KEPT CLEAN AND DRY ALL THE TIME,KEPT COMFORTABLE HEAD OF THE BED ELEVATED ALL THE TIME,ON G-TUBE FEEDING,NEPRO 40CC/HR CHECKED PLACEMENT IN PLACE,NO RESIDUAL,SAFETY MEASURE IMPLEMENTED, ALL NEEDS MET ENDORSE NEXT COMING SHIFT FOR CONTINUATION OF CARE
[2020-09-02 06:41] LABS: BASOPHILS # (AUTO) 0.1 /CMM (0.0-0.2); BASOPHILS % (AUTO) 0.8 % (0.0-2.0); EOSINOPHILS % (AUTO) 3.6 % (0.0-6.0); HEMATOCRIT 24 % (39-51); HEMOGLOBIN 7.6 g/dL (13.5-17.5); LYMPHOCYTES # (AUTO) 1.5 /CMM (0.8-4.8); LYMPHOCYTES % (AUTO) 13.2 % (20.0-44.0); MEAN CORPUSCULAR HGB CONC 32 g/dl (31.0-36.0); MEAN CORPUSCULAR VOLUME 101 fL (80-96); MONOCYTES # (AUTO) 1.7 /CMM (0.1-1.30); MONOCYTES % (AUTO) 15.2 % (2.0-12.0); NEUTROPHILS # (AUTO) 7.6 /CMM (1.8-8.9); NEUTROPHILS % (AUTO) 67.2 % (43.0-81.0); PLATELET COUNT (AUTO) 320 /CMM (150-450); RED BLOOD CELL COUNT(AUTO) 2.32 MIL/uL (4.5-6.0); WHITE BLOOD COUNT (AUTO) 11.3 K/uL (4.3-11.0)
[2020-09-02 08:00] VITALS: BP 112/71
--- NOTE | 2020-09-02 08:00 | NUR ---
PATIENT RECEIVED IN BED ON PRESCRIBED VENT/TRACH SETTINGS: PORTEX 8, AC 14, TV 500, FIO2 30%, PEEP 5. NO RESPIRATORY DISTRESS O2 SAT 100%. PATIENT IS OBTUNDED, OPENS EYES SPONTANEOUSLY. PT MONITOR SHOWING SR 80-90. PT HAS RIGHT WRIST IV, APPEARS INFILTRATED. PATIENT HAS G-TUBE RUNNIGN NEPRO AT 40 ML/HR. NO RESIDUALS. ALL SAFETY MEASURES IN PLACE . WILL CONTINUE TO MONITOR CLOSELY
[2020-09-02 08:03] LABS: CALCIUM, SERUM 9.9 mg/dL (8.5-10.1); PHOSPHORUS 4.3 mg/dL (2.5-4.9)
[2020-09-02 08:07] LABS: CREATININE 9.5 mg/dL (0.6-1.3)
[2020-09-02] MEDS: CALCIUM ACETATE 667 MG TABLET GT SCH ×3 (08:17→16:15)
[2020-09-02] MEDS: ACIDOPHILUS/BULGARICUS 1 EACH TAB.CHEW GT SCH ×2 (08:17→20:17)
[2020-09-02] MEDS: PROSOURCE / PROSTAT (PYXIS) 30 ML UDC GT SCH ×2 (08:18→16:15)
[2020-09-02] MEDS: ZINC SULFATE 220 MG CAPSULE GT SCH (08:18)
[2020-09-02] MEDS: ATENOLOL 25 MG TABLET GT SCH (08:18)
[2020-09-02] MEDS: PANTOPRAZOLE 40 MG VIAL IV SCH (08:19)
[2020-09-02 08:39] LABS: MAGNESIUM 2.8 mg/dL (1.8-2.4)
[2020-09-02] MEDS: SILVER SULFADIAZINE CREAM 25 GM TUBE TP SCH (09:41)
[2020-09-02] MEDS: FIXODENT DENTURE ADHESIVE TUBE MM SCH ×2 (09:41→20:18)
[2020-09-02] MEDS: MEROPENEM 500 MG in IV NS 0.9% 50 ML IV SCH ×2 (09:41→20:17)
[2020-09-02 12:00] VITALS: BP 112/64
--- NOTE | 2020-09-02 15:00 | NUR ---
SERIAL DEBRIDEMENT FOR BILATERAL LOWER EXTREMITIES AND SACRAL WOUNDS COMPLETED AT BEDSIDE.
[2020-09-02] MEDS: NEPRO 1,000 ML BOTTLE GT PRN (15:49)
[2020-09-02 16:00] VITALS: BP 117/73
--- NOTE | 2020-09-02 18:29 | NUR ---
PATIENT REMAINS IN BED, NO ACUTE CHANGES BESIDES THE COMPLETED DEBRIDEMENT. ALL SAFETY MEASURES IN PLACE. WILL ENDORSE ALL NEEDS TO ONCOMING RN
[2020-09-02 20:00] VITALS: BP 106/72
[2020-09-02] MEDS: VIT B CMPLX 3/FA/VIT C/BIOTIN 1 TAB TABLET GT SCH (21:12)
[2020-09-03] VITALS: BP 106/66
[2020-09-03 04:00] VITALS: BP 107/67
[2020-09-03 06:51] LABS: BASOPHILS # (AUTO) 0.1 /CMM (0.0-0.2); BASOPHILS % (AUTO) 0.6 % (0.0-2.0); CALCIUM, SERUM 10.2 mg/dL (8.5-10.1); EOSINOPHILS % (AUTO) 3.7 % (0.0-6.0); HEMATOCRIT 24 % (39-51); HEMOGLOBIN 7.7 g/dL (13.5-17.5); LYMPHOCYTES # (AUTO) 1.5 /CMM (0.8-4.8); MEAN CORPUSCULAR HGB CONC 32 g/dl (31.0-36.0); MEAN CORPUSCULAR VOLUME 104 fL (80-96); MONOCYTES # (AUTO) 1.3 /CMM (0.1-1.30); MONOCYTES % (AUTO) 11.9 % (2.0-12.0); NEUTROPHILS # (AUTO) 7.7 /CMM (1.8-8.9); NEUTROPHILS % (AUTO) 69.8 % (43.0-81.0); PHOSPHORUS 4.3 mg/dL (2.5-4.9); PLATELET COUNT (AUTO) 305 /CMM (150-450); POTASSIUM 4.5 mmol/L (3.5-5.1)
[2020-09-03 06:53] LABS: CREATININE 10.8 mg/dL (0.6-1.3)
--- NOTE | 2020-09-03 07:30 | NUR ---
RN OPENING NOTE PATIENT PRESENT IN BED, NON-VERBAL, ON VENT SETTINGS, TOLERATING WELL, SPO2 IS 99-100%, NO SOB OR DISTRESS NOTED, NSR ON MONITOR, HD CATH ON L SUBCLAVIAN AREA, G-TUBE PRESENT no residual noted, running feeding @ 40 cc/hr, tolerating well, flushes well, ACTIVE BOWEL SOUNDS PRESENT IN 4 QUADRANTS, IV line on LHAND PATENT AND INTACT, SAFETY MEASURES IN PLACE, ALARMS IS ON, WILL CONT TO MONITOR
[2020-09-03] MEDS: ZINC SULFATE 220 MG CAPSULE GT SCH (08:17)
[2020-09-03] MEDS: ACIDOPHILUS/BULGARICUS 1 EACH TAB.CHEW GT SCH ×2 (08:17→20:34)
[2020-09-03] MEDS: SILVER SULFADIAZINE CREAM 25 GM TUBE TP SCH (08:17)
[2020-09-03] MEDS: PANTOPRAZOLE 40 MG VIAL IV SCH (08:17)
[2020-09-03] MEDS: CALCIUM ACETATE 667 MG TABLET GT SCH ×3 (08:17→17:13)
[2020-09-03] MEDS: MEROPENEM 500 MG in IV NS 0.9% 50 ML IV SCH ×2 (08:17→20:34)
[2020-09-03] MEDS: PROSOURCE / PROSTAT (PYXIS) 30 ML UDC GT SCH ×2 (08:18→17:13)
[2020-09-03] MEDS: ATENOLOL 25 MG TABLET GT SCH (08:22)
[2020-09-03 11:26] VITALS: BP 108/72
[2020-09-03 12:00] VITALS: BP 106/63
[2020-09-03] MEDS: CHLORHEXIDINE GLUCONATE 15 ML UDC MM SCH ×2 (12:41→20:34)
[2020-09-03 16:00] VITALS: BP 109/68
[2020-09-03] MEDS: NEPRO 1,000 ML BOTTLE GT PRN (17:10)
--- NOTE | 2020-09-03 18:25 | NUR ---
RN CLOSING NOTES NO ACUTE CHANGES THROUGH THE SHIFT IN CONDITION TOLERATING SETTINGS WELL, INCREASED FEEDING TO 50 CC/HR COMFORT NEEDS ATTENDED, REPOSITIONING AND WOUND CARE DONE, WILL ENDORSE TO PM SHIFT RN FOR DENNIS
[2020-09-03 20:13] VITALS: BP 106/65
[2020-09-03] MEDS: VIT B CMPLX 3/FA/VIT C/BIOTIN 1 TAB TABLET GT SCH (21:19)
[2020-09-04] VITALS: BP 107/64
[2020-09-04 04:00] VITALS: BP 110/70
[2020-09-04 06:36] LABS: BASOPHILS # (AUTO) 0.1 /CMM (0.0-0.2); BASOPHILS % (AUTO) 0.5 % (0.0-2.0); EOSINOPHILS % (AUTO) 3.7 % (0.0-6.0); HEMATOCRIT 23 % (39-51); HEMOGLOBIN 7.6 g/dL (13.5-17.5); LYMPHOCYTES # (AUTO) 1.6 /CMM (0.8-4.8); LYMPHOCYTES % (AUTO) 11.1 % (20.0-44.0); MEAN CORPUSCULAR HGB CONC 33 g/dl (31.0-36.0); MEAN CORPUSCULAR VOLUME 102 fL (80-96); MONOCYTES # (AUTO) 1.6 /CMM (0.1-1.30); MONOCYTES % (AUTO) 11.5 % (2.0-12.0); NEUTROPHILS # (AUTO) 10.4 /CMM (1.8-8.9); NEUTROPHILS % (AUTO) 73.2 % (43.0-81.0); PLATELET COUNT (AUTO) 300 /CMM (150-450); RED BLOOD CELL COUNT(AUTO) 2.25 MIL/uL (4.5-6.0); WHITE BLOOD COUNT (AUTO) 14.3 K/uL (4.3-11.0)
[2020-09-04 07:22] LABS: CALCIUM, SERUM 10.6 mg/dL (8.5-10.1); PHOSPHORUS 4.4 mg/dL (2.5-4.9); POTASSIUM 4.5 mmol/L (3.5-5.1)
[2020-09-04 07:26] LABS: CREATININE 11.7 mg/dL (0.6-1.3)
--- NOTE | 2020-09-04 07:30 | NUR ---
RN OPENING NOTE PATIENT PRESENT IN BED, NON-VERBAL, TOLERATING VENT SETTINGS WELL, SPO2 IS 99-100%TRACH DRESSING INTACT, NO SOB OR DISTRESS NOTED, NSR ON MONITOR, HD CATH ON L SUBCLAVIAN AREA, G-TUBE PRESENT G-TUBE IN PLACE, PATENT, FLUSHED, TOLERATING FEEDING WELL, NO RESIDUAL NOTED, ACTIVE BOWEL SOUNDS PRESENT IN 4 QUADRANTS, IV line on L HAND PATENT AND INTACT, BLE HEELS DRESSINGS INTACT, OFFLOADED FOR POSITIONING, HOB ELEVATED, SAFETY MEASURES IN PLACE, ALARMS IS ON, WILL CONT TO MONITOR
[2020-09-04 08:00] VITALS: BP 121/75
--- NOTE | 2020-09-04 08:24 | NUR ---
Patient is scheduled for dialyses today, will hold BP meds, Hospitalist is aware
[2020-09-04] MEDS: ZINC SULFATE 220 MG CAPSULE GT SCH (08:28)
[2020-09-04] MEDS: MEROPENEM 500 MG in IV NS 0.9% 50 ML IV SCH ×2 (08:28→21:04)
[2020-09-04] MEDS: CALCIUM ACETATE 667 MG TABLET GT SCH ×3 (08:28→17:02)
[2020-09-04] MEDS: CHLORHEXIDINE GLUCONATE 15 ML UDC MM SCH ×2 (08:28→21:04)
[2020-09-04] MEDS: ACIDOPHILUS/BULGARICUS 1 EACH TAB.CHEW GT SCH ×2 (08:28→21:03)
[2020-09-04] MEDS: PANTOPRAZOLE 40 MG VIAL IV SCH (08:29)
[2020-09-04] MEDS: ATENOLOL 25 MG TABLET GT SCH (08:29)
[2020-09-04] MEDS: PROSOURCE / PROSTAT (PYXIS) 30 ML UDC GT SCH ×2 (08:30→17:02)
[2020-09-04] MEDS: SILVER SULFADIAZINE CREAM 25 GM TUBE TP SCH (08:59)
--- NOTE | 2020-09-04 10:56 | NUR ---
DIALYSES RN AT BED SITE
[2020-09-04 12:00] VITALS: BP 113/70
--- NOTE | 2020-09-04 15:48 | NUR ---
remains in bed, wound care completed, tolerated well, no acute changes, cont to monitor
[2020-09-04 16:00] VITALS: BP 109/66
[2020-09-04] MEDS: NEPRO 1,000 ML BOTTLE GT PRN (16:56)
--- NOTE | 2020-09-04 18:35 | NUR ---
RN CLOSING NOTES NO ACUTE CHANGES THROUGH THE SHIFT IN CONDITION TOLERATING SETTINGS WELL, INCREASED FEEDING TO 70 CC/HR COMFORT NEEDS ATTENDED, REPOSITIONING AND WOUND CARE DONE, WILL ENDORSE TO PM SHIFT RN FOR DENNIS
[2020-09-04 20:00] VITALS: BP 93/55
--- NOTE | 2020-09-04 20:00 | NUR ---
RN OPENING NOTE PATIENT IN BED, NON-VERBAL, ON VENT SETTINGS, TOLERATING WELL, SPO2 IS 99-100%, NO SOB OR DISTRESS NOTED, NSR ON MONITOR, HD CATH ON L SUBCLAVIAN AREA, G-TUBE PRESENT ,NO RESIDUAL NOTED RATE @ 70cc/hr, TOLERATING WELL ACTIVE BOWEL SOUNDS PRESENT IN 4 QUADRANTS, IV line on LHAND AND LEFT FOREARM PATENT AND INTACT, SAFETY MEASURES IN PLACE, V/S STABLE AFEBRILE, SUCTION SECRETION DONE Q2HRS AND PRN, TURN AND REPOSITION .WILL CONT TO MONITOR.
[2020-09-04] MEDS: VIT B CMPLX 3/FA/VIT C/BIOTIN 1 TAB TABLET GT SCH (21:06)
[2020-09-05] VITALS: BP 97/55
[2020-09-05 04:00] VITALS: BP 105/67
--- NOTE | 2020-09-05 06:24 | NUR ---
RN CLOSING NOTES PTS REMAINS ON VENT ,NO ACUTE CHANGES THROUGH THE SHIFT IN CONDITION TOLERATING SETTINGS WELL, GT FEEDING NEPHRO TO 70CC CC/HR NO RESIDUAL NOTED ,ALL NEEDS ATTENDED, REPOSITIONING AND WOUND CARE DONE, WILL ENDORSE TO RN DAY SHIFT FOR CONTINUITY OF CARE.
--- NOTE | 2020-09-05 07:43 | NUR ---
LAUNDRY SUPERVISOR NOTE PATIENT IN BED OBTUNDED, WITH OPEN BOTH EYES , WITH TRACH TO VENT SETTING ORDERED, ON TELE MONITOR SE HR 70 , WITH G TUBE FEEDING ORDERED ,NO RESIDUAL NOTED , KEEP HOB ELEVATED AT ALL TIME , LT CW HD CATH IN PLACED BED IN LOWEST AND LOCKED POSITION
[2020-09-05 08:00] VITALS: BP 137/62
[2020-09-05] MEDS: ZINC SULFATE 220 MG CAPSULE GT SCH (08:11)
[2020-09-05] MEDS: MEROPENEM 500 MG in IV NS 0.9% 50 ML IV SCH (08:11)
[2020-09-05] MEDS: PANTOPRAZOLE 40 MG VIAL IV SCH (08:11)
[2020-09-05] MEDS: CALCIUM ACETATE 667 MG TABLET GT SCH ×3 (08:11→16:27)
[2020-09-05] MEDS: ATENOLOL 25 MG TABLET GT SCH (08:12)
[2020-09-05] MEDS: ACIDOPHILUS/BULGARICUS 1 EACH TAB.CHEW GT SCH (08:12)
[2020-09-05] MEDS: CHLORHEXIDINE GLUCONATE 15 ML UDC MM SCH (08:12)
[2020-09-05] MEDS: NEPRO 1,000 ML BOTTLE GT PRN ×2 (08:13→08:26)
[2020-09-05] MEDS: PROSOURCE / PROSTAT (PYXIS) 30 ML UDC GT SCH ×2 (08:24→16:27)
[2020-09-05] MEDS: SILVER SULFADIAZINE CREAM 25 GM TUBE TP SCH (08:25)
--- NOTE | 2020-09-05 10:56 | NUR ---
SOLUTION PROFESSIONAL NOTE TURN REPOSITION Q HOUR
[2020-09-05 12:00] VITALS: BP 103/62
--- NOTE | 2020-09-05 13:57 | NUR ---
CORPORATE TRAINING MANAGER NOTE PER TANK DNP OK TO PLACE MID LINE [facility] HAS ATB FOR DISCHARGE TO SNF, CALLED TO SNF FOR REPORT SPOKE WITH BRIDGETTE FORREST, PER TANK FORREST INTERNATIONAL MARKETING EXECUTIVE OK TO D\[facility] ,DAUGHTER KARL NOTIFIED
--- NOTE | 2020-09-05 14:00 | NUR ---
SYRUP SHED SUPERVISOR NOTE WOUND CARE DONE ,ALL NEEDS ATTENDED, KEEP CLEAN DRY ,WILL CONT TO MONITOR, TRACH SUCTION DONE
--- NOTE | 2020-09-05 15:17 | NUR ---
PROFESSOR OF RELIGIOUS STUDIES NOTE PICC LINE AT BEDSIDE MID LINE INSERTED ORDERED ON LT UPPER ARM Addendum: 09/05/20 at 1848 by WALESKA WELLINGTON RN CORRECTION PICC LINE NURSE AT BEDSIDE MID LINE INSERTED ORDERED
[2020-09-05 16:00] VITALS: BP 103/66
--- NOTE | 2020-09-05 16:30 | NUR ---
director telecommunications note called to continuous pillowcase cutter notified that ambulance not arrived yet stated will come at 1730 will f\u
--- NOTE | 2020-09-05 17:00 | NUR ---
PUMP HOUSE TECHNICIAN NOTE BP 97/ MIDODRINE PRN GIVEN , WILL F\U
[2020-09-05 17:02] VITALS: BP 97/59
--- NOTE | 2020-09-05 18:05 | NUR ---
TERMINAL BLOCK ASSEMBLER NOTE BP 125/78 SATURATION 100%, AMBULANCE ARRIVED REPORT GIVEN ,NO BELONGING AT DISCHARGE ,MID LINE AND LT FA HL INTACT AND FLASHED ,WELL OK TO LAVE FOR CONT ATB AT SNF
--- NOTE | 2020-09-05 18:30 | NUR ---
ALCOHOL STILL OPERATOR NOTE AMBULANCE AT BEDSIDE TAKEN PATIENT TO SNF , TELE REMOVED WENT TO SNF WITH STABLE CONDITION
== END 2020-09-05 18:20 | DRG 710 ==
LOC: ER 14:41 → TELE1 17:14 → TELE-TD 20:26 → TELE1 08-30 08:08
PROVIDERS: ADMIT Nurse Practitioner Family; ATTEND Nurse Practitioner Acute Care
PROC: 5A1955Z Respiratory Ventilation, Greater than 96 Consecutive Hours (ICD-10-PCS; principal; 2020-08-29)
PROC: 5A1D70Z Performance of Urinary Filtration, Intermittent, Less than 6 Hours Per Day (ICD-10-PCS; 2020-08-30)
PROC: 0DB58ZX Excision of Esophagus, Via Natural or Artificial Opening Endoscopic, Diagnostic (ICD-10-PCS; 2020-08-31)
PROC: 0JBR0ZZ Excision of Left Foot Subcutaneous Tissue and Fascia, Open Approach (ICD-10-PCS; 2020-09-02)
PROC: 0JBQ0ZZ Excision of Right Foot Subcutaneous Tissue and Fascia, Open Approach (ICD-10-PCS; 2020-09-02)
PROC: 0KBP0ZZ Excision of Left Hip Muscle, Open Approach (ICD-10-PCS; 2020-09-02)
PROC: 0KBN0ZZ Excision of Right Hip Muscle, Open Approach (ICD-10-PCS; 2020-09-02)
PROC: 0JB90ZZ Excision of Buttock Subcutaneous Tissue and Fascia, Open Approach (ICD-10-PCS; 2020-09-02)
PROC: 05H633Z Insertion of Infusion Device into Left Subclavian Vein, Percutaneous Approach (ICD-10-PCS; 2020-09-05)
PROC: B547ZZA Ultrasonography of Left Subclavian Vein, Guidance (ICD-10-PCS; 2020-09-05)
DX: A41.9 Sepsis, unspecified organism (principal); E11.22 Type 2 diabetes mellitus with diabetic chronic kidney disease; I12.0 Hypertensive chronic kidney disease with stage 5 chronic kidney disease or end stage renal disease; G93.40 Encephalopathy, unspecified; J96.10 Chronic respiratory failure, unspecified whether with hypoxia or hypercapnia; K29.70 Gastritis, unspecified, without bleeding; E11.621 Type 2 diabetes mellitus with foot ulcer; I69.354 Hemiplegia and hemiparesis following cerebral infarction affecting left non-dominant side; N18.6 End stage renal disease; Z99.11 Dependence on respirator [ventilator] status; Z93.0 Tracheostomy status; Z93.1 Gastrostomy status; Z99.2 Dependence on renal dialysis; L89.323 Pressure ulcer of left buttock, stage 3; L89.313 Pressure ulcer of right buttock, stage 3; D63.8 Anemia in other chronic diseases classified elsewhere; E11.40 Type 2 diabetes mellitus with diabetic neuropathy, unspecified; E44.1 Mild protein-calorie malnutrition; E11.69 Type 2 diabetes mellitus with other specified complication; M46.28 Osteomyelitis of vertebra, sacral and sacrococcygeal region; L89.154 Pressure ulcer of sacral region, stage 4; L97.419 Non-pressure chronic ulcer of right heel and midfoot with unspecified severity; L97.529 Non-pressure chronic ulcer of other part of left foot with unspecified severity; L97.429 Non-pressure chronic ulcer of left heel and midfoot with unspecified severity; E11.51 Type 2 diabetes mellitus with diabetic peripheral angiopathy without gangrene; Z68.23 Body mass index [BMI] 23.0-23.9, adult; K22.11 Ulcer of esophagus with bleeding; K21.01 Gastro-esophageal reflux disease with esophagitis, with bleeding; Z79.4 Long term (current) use of insulin
CPT/HCPCS: 31720; 36415; 71045-TC; 80048-TC; 80076-TC; 80202-TC; 82962-TC; 83605-TC; 83690-TC; 83735-TC; 84100-TC; 84484-TC; 85025-TC; 85730-TC; 86850-TC; 87040-TC; 87081-TC; 88305-TC; 88312-TC; 90935-TC; 93971-TC; 94002-TC; 94003-TC; 94760-TC; 94762-TC; 94799-TC; A4623; A6253; A6403; A7526; C9113; C9803; G0378; J0692; J2185; J2250; J2543; J2704; J3370; J3490; J7030; J7050; J7060; U0003

== ENCOUNTER 2020-09-09 17:29 | Inpatient (IN) | payer MEDICAID ==
[2020-09-09] VITALS: BP 119/59
[~2020-09-09] VITALS: Ht 167.6 cm; Wt 68.9 kg
[~2020-09-09 17:29] MED LIST changes: +COLL30OI TP; +INSU100V3 SQ; -Nepro GT; +ONDA4TAB5 GT; +ZINC1CAP2 GT
--- NOTE | 2020-09-09 17:32 | NUR ---
JONATHAN FROM [facility] (PATIENT FROM [facility]) , BROUGHT FOR LOW HGB AT 6.7. TO ER BED 11, HOOKED TO MONITOR, WARM BLANKET PROVIDED, RT AT BEDSIDE FOR TRACHEOSTOMY-VENTILATOR WITH SETTINGS OF AC 14, VT 500, PEEP 5.0 AND O2 40%. AWAITING MD COPE
--- NOTE | 2020-09-09 18:04 | NUR ---
DR FOFANA AT BEDSIDE
[2020-09-09 18:26] LABS: BASOPHILS # (AUTO) 0.1 /CMM (0.0-0.2); BASOPHILS % (AUTO) 0.5 % (0.0-2.0); EOSINOPHILS % (AUTO) 0.6 % (0.0-6.0); HEMATOCRIT 21 % (39-51); LYMPHOCYTES # (AUTO) 1.2 /CMM (0.8-4.8); LYMPHOCYTES % (AUTO) 4.6 % (20.0-44.0); MEAN CORPUSCULAR HGB CONC 33 g/dl (31.0-36.0); MEAN CORPUSCULAR VOLUME 103 fL (80-96); MONOCYTES % (AUTO) 7.5 % (2.0-12.0); NEUTROPHILS # (AUTO) 23.4 /CMM (1.8-8.9); NEUTROPHILS % (AUTO) 86.8 % (43.0-81.0); PLATELET COUNT (AUTO) 291 /CMM (150-450); RED BLOOD CELL COUNT(AUTO) 2.01 MIL/uL (4.5-6.0)
[2020-09-09 18:40] LABS: HEMOGLOBIN 6.8 g/dL (13.5-17.5)
--- NOTE | 2020-09-09 19:14 | NUR ---
PCR COVID SWAB DONE AND SENT TO LAB
[2020-09-09 19:17] LABS: CALCIUM, SERUM 9.1 mg/dL (8.5-10.1); CARBON DIOXIDE 24 mmol/L (21-32); CHLORIDE 99 mmol/L (98-107); CREATININE 5.5 mg/dL (0.6-1.3); GLUCOSE 95 mg/dL (74-106); POTASSIUM 3.5 mmol/L (3.5-5.1); SODIUM SERUM 137 mmol/L (136-145); UREA NITROGEN, BLOOD 51 mg/dL (7-18)
[2020-09-09 19:18] LABS: BAND % (MANUAL) 2 % (0.0-5.0); LYMPHOCYTES % (MANUAL) 2 % (16-48); MONOCYTES % (MANUAL) 6 % (0-11.0); NEUTROPHILS % (MANUAL) 90 (42-76)
--- NOTE | 2020-09-09 19:20 | NUR ---
REC'D REPORT FROM LON DAVIS FOR DENNIS. PT RESTING COMFORTABLY IN BED. VITAL SIGNS STABLE. NO ACUTE DISTRESS NOTED AT THIS TIME.
[2020-09-09 19:21] LABS: ALANINE AMINOTRANSFERASE 72 U/L (12-78); ALKALINE PHOSPHATASE 137 U/L (46-116); ASPARTATE AMINOTRANSFERASE 76 U/L (15-37); BILIRUBIN,DIRECT 0.2 mg/dL (0.0-0.2); BILIRUBIN,TOTAL 0.8 mg/dL (0.2-1.0); LIPASE 168 U/L (73-393); TOTAL PROTEIN, SERUM 7.8 g/dL (6.4-8.2)
[2020-09-09] MEDS ORDERED: MEROPENEM 500 MG in IV NS 0.9% 50 ML IV STA (20:04)
--- NOTE | 2020-09-09 20:16 | NUR ---
REPORT GIVEN TO LON ESTEVEZ FOR DENNIS
[2020-09-09] MEDS ORDERED: HYDROCODONE/APAP 10/325MG TABLET GT PRN (20:30)
[2020-09-09] MEDS ORDERED: HYDROCODONE/APAP 5/325MG TABLET PO PRN (20:30)
[2020-09-09] MEDS ORDERED: ACETAMINOPHEN 650 MG/SUPP.RECT RC PRN (20:30)
[2020-09-09] MEDS ORDERED: Z GUARD REMEDY 2 OZ OINT TP PRN (20:30)
[2020-09-09] MEDS ORDERED: ALBUTEROL FS 2.5 MG/3 ML VIAL.NEB NEB PRN (20:30)
[2020-09-09] MEDS ORDERED: ONDANSETRON HCL/PF 4 MG/2 ML VIAL IVP PRN (20:30)
[2020-09-09] MEDS ORDERED: MORPHINE SULFATE INJ 2 MG/ML DISP.SYRIN IV PRN (20:30)
--- NOTE | 2020-09-09 20:38 | NUR ---
VILLARREAL CATH INSERTED, NO URINE OUTPUT. MD OCASIO
--- NOTE | 2020-09-09 20:56 | NUR ---
PT TRANSFERRED PER ACLS PROTOCOL
[2020-09-09] MEDS ORDERED: DEXTROSE 50%-WATER 50 ML DISP.SYRIN IV PRN (21:00)
[2020-09-09] MEDS ORDERED: VANCOMYCIN 500 MG in IV D5W 100 ML IV PRN (21:00)
--- NOTE | 2020-09-09 21:30 | NUR ---
RN NOTE RECEIVED PT FROM ER AT 2054. NO RESP DISTRESS NOTED. PT WITH TRACH ON VENT, RT AT BEDSIDE. ADMITTED FOR LOW HGB AND HCT, PT FOR BLOOD TRANSFUSION. HOOKED UP TO MONITOR, READING SR. ASSESSMENT DONE, WOUNDS NOTED ON SACRUM, RIGHT BUTTOCKS AND BILATERAL HEELS. INITIAL TREATMENT DONE. GT PATENT AND INTACT, NO RESIDUALS NOTED. WITH LFA 20G IV, FLUSHED, NO SIGNS OF INFILTRATION NOTED. WITH HD CATH ON LEFT CHEST, DRESSING CLEAN DRY AND INTACT, NO BLEEDING NOTED. ALL SAFETY MEASURES IMPLEMENTED PER PROTOCOL. BP 95/59 RR 20 P 88 T 98.7 O2SAT 100%. WILL CONTINUE TO MONITOR.
[2020-09-09] MEDS: HEPARIN SODIUM, PORCINE 5000 UNITS/1 ML VIAL SQ SCH (22:00)
[2020-09-09] MEDS: PANTOPRAZOLE 40 MG VIAL IV SCH (22:24)
--- NOTE | 2020-09-09 22:27 | NUR ---
RN NOTE HEPARIN NOT GIVEN DUE TO LOW HGB 6.8
[2020-09-09] MEDS: MEROPENEM 500 MG in IV NS 0.9% 50 ML IV SCH (22:34)
[2020-09-09] MEDS ORDERED: NEPRO 1,000 ML BOTTLE GT PRN (23:30)
[2020-09-10] VITALS (13 sets, daily range): BP systolic 102–128; BP diastolic 37–71
--- NOTE | 2020-09-10 00:46 | NUR ---
RN NOTE BLOOD TRANSFUSION STARTED. VS BP 112/51 HR 74 R 18 T 98.6. WILL CONTINUE TO MONITOR.
[2020-09-10] MEDS: BLOOD SUGAR DIAGNOSTIC 1 EACH STRIP IN SCH ×5 (00:53→23:10)
--- NOTE | 2020-09-10 01:01 | NUR ---
RN NOTE BLOOD TRANSFUSION ONGOING, NO REACTION NOTED. NOT IN ANY DISTRESS. VS STABLE.
[2020-09-10] MEDS: NEPRO 1,000 ML BOTTLE GT PRN (01:05)
--- NOTE | 2020-09-10 04:20 | NUR ---
RN NOTE 1UNIT OF PRBC DONE TRANSFUSING. NO ADVERSE REACTIONS NOTED. NO DISTRESS NOTED. T 98.7 RR 20 HR 82 BP 121/51.
[2020-09-10 06:27] LABS: BASOPHILS # (AUTO) 0.2 /CMM (0.0-0.2); BASOPHILS % (AUTO) 0.9 % (0.0-2.0); EOSINOPHILS % (AUTO) 2.2 % (0.0-6.0); HEMATOCRIT 22 % (39-51); HEMOGLOBIN 7.3 g/dL (13.5-17.5); LYMPHOCYTES # (AUTO) 1.7 /CMM (0.8-4.8); MEAN CORPUSCULAR HGB CONC 33 g/dl (31.0-36.0); MEAN CORPUSCULAR VOLUME 97 fL (80-96); MONOCYTES # (AUTO) 1.9 /CMM (0.1-1.30); MONOCYTES % (AUTO) 9.2 % (2.0-12.0); NEUTROPHILS # (AUTO) 16.7 /CMM (1.8-8.9); NEUTROPHILS % (AUTO) 79.7 % (43.0-81.0); PLATELET COUNT (AUTO) 261 /CMM (150-450); RED BLOOD CELL COUNT(AUTO) 2.29 MIL/uL (4.5-6.0)
[2020-09-10] MEDS: INSULIN REGULAR, HUMAN 100 UNIT/ML 3 ML VIAL SQ PRN ×3 (06:33→18:18)
--- NOTE | 2020-09-10 06:33 | NUR ---
RN NOTE PT REMAIN IN BED, TOLERATING VENT SETTINGS. NO RESP DISTRESS NOTED. SUCTIONED NEEDED. KEPT HOB ELEVATED. PT TOLERATING GT FEEDING OF NEPRO, NO SIGNS OF ASPIRATION NOTED. PT FSBS AT 89. NO INSULIN COVERAGE GIVEN. ALL SAFETY MEASURES MAINTAINED. WILL ENDORSE TO NEXT SHIFT NURSE FOR DENNIS.
[2020-09-10 06:55] LABS: CALCIUM, SERUM 8.7 mg/dL (8.5-10.1); MAGNESIUM 2.7 mg/dL (1.8-2.4); PHOSPHORUS 3.8 mg/dL (2.5-4.9); POTASSIUM 3.8 mmol/L (3.5-5.1)
--- NOTE | 2020-09-10 07:30 | NUR ---
RN OPENING NOTES PATIENT PRESENT IN IN BED, A/OX1. NON-VERBAL, ON MECH VENT WITH TRACH, TOLERATING SETTING WELL, SPO2 100%, NO DISTRESS NOTED, NSR ON TELEMONITOR HR 80, TUBE FEEDING RUNNING @ 70 CC/HR, TOLERATING WELL, NO RESIDUAL NOTED, BOWEL SOUNDS ACTIVE IN 4 QUADRANTS, L FA IV LINE PATENT, AND INTACT, L UPPER CHEST HD CATH IN PLACE, DRESSING INTACT, SAFETY MEASURES IN PLACE, BED IS LOCKED, HOB ELEVATED, BED ALARNM IS ON, WILL CONT TO MONITOR
[2020-09-10] MEDS: HEPARIN SODIUM, PORCINE 5000 UNITS/1 ML VIAL SQ SCH (08:46)
[2020-09-10] MEDS: PANTOPRAZOLE 40 MG VIAL IV SCH ×2 (08:46→20:28)
--- NOTE | 2020-09-10 09:56 | NUR ---
WOUND CARE CONSULT: REVIEWED CHART, NURSING DOCUMENTATION AND PHOTOS WHICH INDICATE MULTIPLE WOUNDS, PRESENT ON ADMISSION. DR MARIEE AND DR LAM NOTIFIED OF SURGICAL AND DPM CONSULTS. RECOMMENDATIONS MADE FOR SKIN PROTECTION. DISCUSSED WITH NURSING STAFF. MD IN AGREEMENT WITH PLAN OF CARE.
--- NOTE | 2020-09-10 12:00 | NUR ---
Report given to Faisal RN for DENNIS
--- NOTE | 2020-09-10 12:15 | NUR ---
Received report from nurse to provide continuity of care. Patient currently in stable condition. HOB kept elevated. Will monitor. Bed is in lowest position.
[2020-09-10] MEDS: MEROPENEM 500 MG in IV NS 0.9% 50 ML IV SCH (20:28)
[2020-09-10] MEDS ORDERED: ACETAMINOPHEN 650 MG/20.3 ML UDC GT PRN (21:00)
[2020-09-11] VITALS: BP 118/63
[2020-09-11 04:00] VITALS: BP 117/78
[2020-09-11] MEDS: BLOOD SUGAR DIAGNOSTIC 1 EACH STRIP IN SCH ×3 (05:46→18:03)
[2020-09-11 06:26] LABS: BASOPHILS # (AUTO) 0.1 /CMM (0.0-0.2); EOSINOPHILS % (AUTO) 4.4 % (0.0-6.0); HEMATOCRIT 24 % (39-51); HEMOGLOBIN 7.5 g/dL (13.5-17.5); LYMPHOCYTES # (AUTO) 1.6 /CMM (0.8-4.8); MEAN CORPUSCULAR HGB CONC 32 g/dl (31.0-36.0); MEAN CORPUSCULAR VOLUME 102 fL (80-96); MONOCYTES # (AUTO) 1.8 /CMM (0.1-1.30); MONOCYTES % (AUTO) 13.4 % (2.0-12.0); NEUTROPHILS # (AUTO) 9.5 /CMM (1.8-8.9); NEUTROPHILS % (AUTO) 69.2 % (43.0-81.0); PLATELET COUNT (AUTO) 221 /CMM (150-450); RED BLOOD CELL COUNT(AUTO) 2.33 MIL/uL (4.5-6.0); WHITE BLOOD COUNT (AUTO) 13.7 K/uL (4.3-11.0)
[2020-09-11 07:05] LABS: CALCIUM, SERUM 9.4 mg/dL (8.5-10.1); CREATININE 6.2 mg/dL (0.6-1.3); MAGNESIUM 2.8 mg/dL (1.8-2.4); PHOSPHORUS 4.3 mg/dL (2.5-4.9); POTASSIUM 4.3 mmol/L (3.5-5.1)
--- NOTE | 2020-09-11 07:39 | NUR ---
MS/RN OPENING NOTES RECEIVED PATIENT ON BED OBTUNDED. PATIENT IS ON TRACHEOSTOMY AND VENT DEPENDENT SATURATION 98%. NO SIGN AND SYMPTOM OF PAIN NOTED AT THIS TIME. TELE MONITOR READING SINUS RHYTHM 73BPM. WILL CONTINUE TO MONITOR.
[2020-09-11 08:00] VITALS: BP 118/61
[2020-09-11] MEDS: PANTOPRAZOLE 40 MG VIAL IV SCH ×2 (08:13→22:23)
[2020-09-11] MEDS: SILVER SULFADIAZINE CREAM 25 GM TUBE MC SCH (08:20)
--- NOTE | 2020-09-11 09:38 | NUR ---
TELE/RN NOTES CALLED ENEDINA DAUGHTER TO GET CONSENT FOR SERIAL SHARP SURGICAL DEBRIDEMENT OF SACRUM, HIP AND BUTTOCK WOUND, NOBODY ANSWER THE CALL, LEAVED THE MESSAGE, WILL FOLLOW UP.
[2020-09-11 12:00] VITALS: BP 135/56
--- NOTE | 2020-09-11 12:44 | NUR ---
TELE/RN NOTES BLOOD SUGAR 68MG/DL AT 1133 ORANGE JUICE 250 ML GTUBE WAS GIVEN. LATEST BLOOD SUGAR 87MG/DL NO COVERAGE. WILL CONTINUE TO MONITOR.
[2020-09-11] MEDS: NEPRO 1,000 ML BOTTLE GT PRN (14:51)
[2020-09-11 16:00] VITALS: BP 110/64
--- NOTE | 2020-09-11 18:45 | NUR ---
TELE/RN CLOSING NOTES PATIENT IS ON BED AWAKE, OBTUNDED OPEN EYES. PATIENT IS ON TRACH AND VENT DEPENDENT AT THE PRESCRIBED SETTINGS SATURATION 100%. NO SIGN AND SYMPTOM OF PAIN NOTED AT THIS TIME. IV ACCESS AT LEFT HAND #22G AND LEFT SUBCLAVIAN HEMODIALYSIS CATHETER PATENT AND INTACT. SEEN AND EXAMINED BY MD WITH ORDERS MADE AND CARRIED OUT. ALL DUE MEDICATIONS WAS GIVEN. SAFETY PRECAUTIONS WAS IN PLACED. LOWEST POSITION AND LOCKED. SIDE RAILS UP X2. WOUND DEBRIDEMENT ON BILATERAL LOWER EXTREMITY WAS DONE BY DR. CLANCY. CONSENT FOR DEBRIDEMENT SACRUM, HIP AND BUTTOCK WOUND WAS SIGNED AND ATTACH TO THE CHART. WILL ENDORSED TO [employer] SPECIALTIES COOK FOR DENNIS.
--- NOTE | 2020-09-11 19:05 | NUR ---
PHARMACY TECHNICIAN INFUSION OPENING NOTES: RECEIVED PATIENT IN BED, OBTUNDED. NO S/S OF DISTRESS NOTED. HOB ELEVATED. BED IN LOWEST AND LOCKED POSITION. BED ALARM ON. WITH GT FEEDING NEPRO AT 70ML/HOUR. WITH TRACH, DRESSING IS CLEAN,DRY AND INTACT, CONNECTED TO THE VENT. WITH AIR MATTRESS ON.
--- NOTE | 2020-09-11 19:55 | NUR ---
RT pt received on mechanical vent with current settings. trached, portex 8 cuffed. vent plugged in to red outlet. alarms on and audible. ambu bag at bedside. spare trach at bedside. minimal clear secretions suctioned via trach. no sob, no resp distress. will continue to monitor
[2020-09-11 20:00] VITALS: BP 119/65
--- NOTE | 2020-09-11 20:11 | NUR ---
GT FEEDING RESIDUAL CHECKED=NONE. FLUSHED GT WITH WATER, NO CLOG.
[2020-09-11] MEDS: MEROPENEM 500 MG in IV NS 0.9% 50 ML IV SCH (21:36)
[2020-09-12] VITALS: BP 114/66
--- NOTE | 2020-09-12 00:14 | NUR ---
BLOOD SUGAR CHECKED=94, NO INSULIN COVERAGE NEEDED.
[2020-09-12 04:00] VITALS: BP 118/64
--- NOTE | 2020-09-12 04:22 | NUR ---
No therahoney gel available,charge nurse made aware,will endorse to nazario RN for follow up with MD.
[2020-09-12] MEDS: BLOOD SUGAR DIAGNOSTIC 1 EACH STRIP IN SCH ×4 (06:00→17:35)
--- NOTE | 2020-09-12 06:39 | NUR ---
blood sugar checked=68, no insulin coverage needed. Addendum: 09/12/20 at 0641 by EDSON SOLIMAN RN blood sugar=62
[2020-09-12 06:59] LABS: BASOPHILS # (AUTO) 0.1 /CMM (0.0-0.2); EOSINOPHILS % (AUTO) 5.3 % (0.0-6.0); HEMATOCRIT 24 % (39-51); LYMPHOCYTES # (AUTO) 1.6 /CMM (0.8-4.8); LYMPHOCYTES % (AUTO) 13.2 % (20.0-44.0); MEAN CORPUSCULAR HGB CONC 33 g/dl (31.0-36.0); MEAN CORPUSCULAR VOLUME 99 fL (80-96); MONOCYTES # (AUTO) 1.7 /CMM (0.1-1.30); MONOCYTES % (AUTO) 13.6 % (2.0-12.0); NEUTROPHILS # (AUTO) 8.2 /CMM (1.8-8.9); NEUTROPHILS % (AUTO) 66.9 % (43.0-81.0); PLATELET COUNT (AUTO) 242 /CMM (150-450); RED BLOOD CELL COUNT(AUTO) 2.46 MIL/uL (4.5-6.0); WHITE BLOOD COUNT (AUTO) 12.2 K/uL (4.3-11.0)
--- NOTE | 2020-09-12 07:04 | NUR ---
blood sugar rechecked=92.
[2020-09-12 07:17] LABS: CALCIUM, SERUM 9.8 mg/dL (8.5-10.1); POTASSIUM 4.1 mmol/L (3.5-5.1)
--- NOTE | 2020-09-12 07:30 | NUR ---
RN OPENING NOTES Patient is responsive to verbal and physical stimuli. Patient did not show any s.s of respiratory distress. Patient on mechanical vent setting AC 14 TV 500 FI02 400 AND PEEP OF 5 with 02 saturation of 98%. Patient noted with g tube feeding of Nepro. Tube patency and placement checked. Head of the bed kept elevated. Will continue to monitor. Call light with in reach.
[2020-09-12 07:51] LABS: CREATININE 7.6 mg/dL (0.6-1.3)
[2020-09-12 08:00] VITALS: BP_SYST 110; BP_SYST 116; BP_DIAS 73; BP_DIAS 78
[2020-09-12] MEDS: PANTOPRAZOLE 40 MG VIAL IV SCH (08:02)
[2020-09-12] MEDS: SILVER SULFADIAZINE CREAM 25 GM TUBE MC SCH (08:03)
[2020-09-12] MEDS ORDERED: NEPRO 1,000 ML BOTTLE GT SCH (09:30)
[2020-09-12] MEDS ORDERED: PROSOURCE / PROSTAT (PYXIS) 30 ML UDC GT SCH (09:30)
[2020-09-12] MEDS: PROSOURCE / PROSTAT (PYXIS) 30 ML UDC GT SCH ×2 (11:29→17:34)
[2020-09-12 12:00] VITALS: BP_SYST 110; BP_SYST 114; BP_DIAS 72; BP_DIAS 78
--- NOTE | 2020-09-12 12:00 | NUR ---
Debridement done of sacral and right buttock by PA
[2020-09-12] MEDS: INSULIN REGULAR, HUMAN 100 UNIT/ML 3 ML VIAL SQ PRN ×2 (12:04→17:35)
[2020-09-12] MEDS ORDERED: ACET650S11 RC (14:57)
[2020-09-12] MEDS ORDERED: Silver Sulfadiazine Cream MC (14:57)
[2020-09-12] MEDS ORDERED: RXVAN XX (14:57)
[2020-09-12] MEDS ORDERED: ACET650S26 GT (14:57)
[2020-09-12] MEDS ORDERED: MERO500V23 IV (14:57)
[2020-09-12] MEDS ORDERED: Nepro GT (14:57)
[2020-09-12] MEDS ORDERED: VANC500F2 IV (14:57)
[2020-09-12] MEDS ORDERED: VANCOMYCIN 1 GM in IV D5W 250ml IV ONE (15:00)
[2020-09-12 16:00] VITALS: BP 108/62
--- NOTE | 2020-09-12 16:00 | NUR ---
Patient had HD done with output of 1 liter , IV vanco given per pharmacy protocol.
--- NOTE | 2020-09-12 19:07 | NUR ---
RN CLOSING NOTES Patient is responsive to verbal and physical stimuli. Patient did not show any s.s of respiratory distress. Patient on mechanical vent setting AC 14 TV 500 FI02 400 AND PEEP OF 5 with 02 saturation of 100%. Patient noted with g tube feeding of Nepro running at 70 cc/hour for 18 hours. Waiting for transportation for discharge to Center [facility]. Report already given to Elle FORREST. Head of the bed kept elevated. Will endorse to next shift to follow up with discharge.
--- NOTE | 2020-09-12 20:00 | NUR ---
rn note Pt discharge back to snf, picked up by 2 resident engineer with rt by [facility]. pt in stable condition. No distress noted.
--- NOTE | 2020-09-12 20:01 | NUR ---
BP 124/71 R18 P78 T98 O2SAT 100 %.
[2020-09-13] MEDS ORDERED: VANCOMYCIN 500 MG in IV D5W 100 ML IV PRN (06:00)
== END 2020-09-12 19:58 | DRG 951 ==
LOC: ER 17:37 → TELE1 19:46
PROVIDERS: ADMIT Nurse Practitioner Acute Care; ATTEND Nurse Practitioner Acute Care
PROC: 5A1945Z Respiratory Ventilation, 24-96 Consecutive Hours (ICD-10-PCS; principal; 2020-09-10)
PROC: 30233N1 Transfusion of Nonautologous Red Blood Cells into Peripheral Vein, Percutaneous Approach (ICD-10-PCS; 2020-09-10)
PROC: 5A1D70Z Performance of Urinary Filtration, Intermittent, Less than 6 Hours Per Day (ICD-10-PCS; 2020-09-10)
PROC: 0JBR0ZZ Excision of Left Foot Subcutaneous Tissue and Fascia, Open Approach (ICD-10-PCS; 2020-09-11)
PROC: 0JBQ0ZZ Excision of Right Foot Subcutaneous Tissue and Fascia, Open Approach (ICD-10-PCS; 2020-09-11)
PROC: 0KBP0ZZ Excision of Left Hip Muscle, Open Approach (ICD-10-PCS; 2020-09-12)
PROC: 0KBN0ZZ Excision of Right Hip Muscle, Open Approach (ICD-10-PCS; 2020-09-12)
PROC: 0JB90ZZ Excision of Buttock Subcutaneous Tissue and Fascia, Open Approach (ICD-10-PCS; 2020-09-12)
DX: I12.0 Hypertensive chronic kidney disease with stage 5 chronic kidney disease or end stage renal disease (principal); E43 Unspecified severe protein-calorie malnutrition; N18.6 End stage renal disease; A41.9 Sepsis, unspecified organism; Z99.11 Dependence on respirator [ventilator] status; Z99.2 Dependence on renal dialysis; J96.20 Acute and chronic respiratory failure, unspecified whether with hypoxia or hypercapnia; K21.00 Gastro-esophageal reflux disease with esophagitis, without bleeding; D63.8 Anemia in other chronic diseases classified elsewhere; Z20.822 Contact with and (suspected) exposure to COVID-19; D68.59 Other primary thrombophilia; Z79.4 Long term (current) use of insulin; E11.22 Type 2 diabetes mellitus with diabetic chronic kidney disease; E11.40 Type 2 diabetes mellitus with diabetic neuropathy, unspecified; E78.5 Hyperlipidemia, unspecified; L89.313 Pressure ulcer of right buttock, stage 3; R13.10 Dysphagia, unspecified; Z74.01 Bed confinement status; E11.69 Type 2 diabetes mellitus with other specified complication; M46.28 Osteomyelitis of vertebra, sacral and sacrococcygeal region; K29.70 Gastritis, unspecified, without bleeding; I69.354 Hemiplegia and hemiparesis following cerebral infarction affecting left non-dominant side; G93.49 Other encephalopathy; E11.621 Type 2 diabetes mellitus with foot ulcer; L97.419 Non-pressure chronic ulcer of right heel and midfoot with unspecified severity; L97.529 Non-pressure chronic ulcer of other part of left foot with unspecified severity; L97.429 Non-pressure chronic ulcer of left heel and midfoot with unspecified severity; L89.154 Pressure ulcer of sacral region, stage 4; L89.223 Pressure ulcer of left hip, stage 3; D63.1 Anemia in chronic kidney disease; Z68.24 Body mass index [BMI] 24.0-24.9, adult; E11.51 Type 2 diabetes mellitus with diabetic peripheral angiopathy without gangrene; D53.9 Nutritional anemia, unspecified
CPT/HCPCS: 31720; 36415; 71045-TC; 80048-TC; 80076-TC; 80202-TC; 82962-TC; 83690-TC; 83735-TC; 84100-TC; 84484-TC; 85025-TC; 85730-TC; 86850-TC; 87040-TC; 87081-TC; 90935-TC; 94002-TC; 94003-TC; 94760-TC; 94762-TC; 94799-TC; 99082-TC; A4623; A6403; A7526; C9113; G0378; J1644; J1815; J2185; J3370; J7050; J7060; P9016-BL; U0003

== ENCOUNTER 2020-10-03 13:56 | Inpatient (IN) | payer MEDICAID ==
[~2020-10-03] VITALS: Ht 165.1 cm; Wt 66.7 kg
--- NOTE | 2020-10-03 03:00 | NUR ---
RN NOTES NO CHANGE IN PATIENT CONDITION AT THIS TIME PATIENT VITALS STABLE, NO SIGNS OF ACUTE RESPIRATORY DISTRESS. HEAT TREAT TECHNICIAN MADE AWARE. WILL CONTINUE TO MONITOR AND REASSESS FOR ANY CHANGES THROUGHOUT THE SHIFT. Addendum: 10/04/20 at 0324 by AMY BOCANEGRA RN CORRECTION WRONG TIME OF ENTRY
[~2020-10-03 13:56] MED LIST changes: -ACET-2605 GT; +ACET650S11 RC; +ACET650S26 GT; +MERO500V23 IV; +Nepro GT; +RXVAN XX; +Silver Sulfadiazine Cream MC; +VANC500F2 IV
--- NOTE | 2020-10-03 14:05 | NUR ---
FIGUEROA from [facility] Coffee ground emesis since yesterday. Patient a/ox0, opens eyes, no distress noted. trache/vent setting tolerating well. Noted with sacral and michelle. heels dry dressing. Dr. King at bedside for eval.
[2020-10-03] MEDS ORDERED: PANTOPRAZOLE 40 MG VIAL IV ONE (14:30)
[2020-10-03] MEDS ORDERED: PANTOPRAZOLE 40 MG VIAL ONE (14:34)
[2020-10-03 14:41] LABS: BASOPHILS # (AUTO) 0.1 /CMM (0.0-0.2); BASOPHILS % (AUTO) 0.7 % (0.0-2.0); EOSINOPHILS % (AUTO) 3.2 % (0.0-6.0); HEMATOCRIT 34 % (39-51); HEMOGLOBIN 10.9 g/dL (13.5-17.5); LYMPHOCYTES # (AUTO) 1.6 /CMM (0.8-4.8); LYMPHOCYTES % (AUTO) 12.3 % (20.0-44.0); MEAN CORPUSCULAR HGB CONC 32 g/dl (31.0-36.0); MEAN CORPUSCULAR VOLUME 97 fL (80-96); MONOCYTES % (AUTO) 15.1 % (2.0-12.0); NEUTROPHILS % (AUTO) 68.7 % (43.0-81.0); PLATELET COUNT (AUTO) 299 /CMM (150-450); RED BLOOD CELL COUNT(AUTO) 3.55 MIL/uL (4.5-6.0); WHITE BLOOD COUNT (AUTO) 13.1 K/uL (4.3-11.0)
[2020-10-03 14:57] LABS: CALCIUM, SERUM 9.9 mg/dL (8.5-10.1); CARBON DIOXIDE 24 mmol/L (21-32); CHLORIDE 101 mmol/L (98-107); CREATININE 7.1 mg/dL (0.6-1.3); GLUCOSE 100 mg/dL (74-106); POTASSIUM 3.6 mmol/L (3.5-5.1); SODIUM SERUM 141 mmol/L (136-145)
--- NOTE | 2020-10-03 15:00 | NUR ---
VILLARREAL CATHETER INSERTED. NO URINE OUTPUT AT THIS TIME.
[2020-10-03 15:02] LABS: ALANINE AMINOTRANSFERASE 86 U/L (12-78); ALBUMIN 3.2 g/dL (3.4-5.0); ALKALINE PHOSPHATASE 196 U/L (46-116); ASPARTATE AMINOTRANSFERASE 50 U/L (15-37); BILIRUBIN,DIRECT 0.2 mg/dL (0.0-0.2); BILIRUBIN,TOTAL 0.5 mg/dL (0.2-1.0); TOTAL PROTEIN, SERUM 8.1 g/dL (6.4-8.2)
[2020-10-03 15:05] LABS: UREA NITROGEN, BLOOD 92 mg/dL (7-18)
--- NOTE | 2020-10-03 15:23 | NUR ---
PAGED DR. NIXON VILLANUEVA.
--- NOTE | 2020-10-03 15:23 | NUR ---
NURSING SUP GAVE RIMMA BED 101.
[2020-10-03 15:35] LABS: OCCULT BLOOD STOOL NEGATIVE (NEGATIVE)
--- NOTE | 2020-10-03 15:45 | NUR ---
TRUCK RENTAL MANAGER NURSE RECEIVED REPORT FROM [facility] ER STAFF FOR THIS PATIENT. COMPLAINT OF COFFEE GROUND EMESIS. DX GI BLEED. REPORT RELAYED TO DANIEL FORREST.
--- NOTE | 2020-10-03 16:00 | NUR ---
REPORT GIVEN TO TAWANA FORREST FOR DENNIS.
[2020-10-03] MEDS ORDERED: HOME MED MISCELLANEOUS XX SCH ×3 (17:00)
[2020-10-03] MEDS ORDERED: BISACODYL SUPP (10 MG) 10 MG/SUPP.RECT SUPP.RECT RC PRN (17:00)
[2020-10-03] MEDS ORDERED: Z GUARD REMEDY 2 OZ OINT TP PRN (17:00)
[2020-10-03] MEDS ORDERED: DEXTROSE 50%-WATER 50 ML DISP.SYRIN IV PRN (17:00)
[2020-10-03] MEDS ORDERED: NA PHOS,M-B/NA PHOS,DI-BA 1 EA ENEMA RC PRN (17:00)
[2020-10-03] MEDS ORDERED: ACETAMINOPHEN 325 MG TABLET MC PRN ×3 (17:00)
[2020-10-03] MEDS ORDERED: ONDANSETRON HCL/PF 4 MG/2 ML VIAL IVP PRN (17:00)
--- NOTE | 2020-10-03 17:23 | NUR ---
RT Received patient on vent settings provided by transport RT (AC 14, Vt 500, +5, 40%). Patient tolerating current settings. Patient has Portex 8 cuffed trach. Suctioned for small amount of thin pink tinged secretions. Backup trach and ambu bag at bedside. Will continue to monitor
[2020-10-03] MEDS ORDERED: ALBUTEROL FS 2.5 MG/0.5 ML VIAL.NEB NEB PRN (18:00)
[2020-10-03] MEDS ORDERED: IPRATROPIUM NEB FS 0.5 MG/2.5 ML AMPUL.NEB NEB PRN (18:00)
[2020-10-03] MEDS: BLOOD SUGAR DIAGNOSTIC 1 EACH STRIP IN SCH (18:00)
[2020-10-03] MEDS: CALCIUM ACETATE 667 MG TABLET GT SCH (18:00)
--- NOTE | 2020-10-03 18:16 | NUR ---
PATIENT TRANSFERRED TO ROOM 101 IN STABLE CONDITION. NO DISTRESS NOTED. ENDORSED TO TAWANA PATEL RN.
[2020-10-03] MEDS: ALBUTEROL FS 2.5 MG/0.5 ML VIAL.NEB NEB SCH (19:30)
[2020-10-03] MEDS: IPRATROPIUM NEB FS 0.5 MG/2.5 ML AMPUL.NEB NEB SCH (19:30)
--- NOTE | 2020-10-03 19:30 | NUR ---
RN OPENING NOTES RECEIVED VENT-TRACH PT IN BED RESTING COMFORTABLY. PATIENT IN NO S/SX OF ACUTE DISTRESS AT THIS TIME. NO SOB NOTED. PATIENT'S BREATHING IS EVEN AND UNLABORED. PATIENT ON MECHANICAL VENT; SETTINGS PRESCRIBED; PT TOLERATED WELL. AMBU BAG AT BED SIDE ALARMS SET PER PROTOCOL AND AUDIBLE. VENT PLUGGED IN TO RED OUTLET. NO DISTRESS NOTED. PATIENT ON TELE MONITORING READING SINUS TACHY HR IS @100S AT THE TIME OF RECEIVED. NOTED G TUBE FLUSHING AND PATENT; SITE CLEAN DRY AND INTACT; NO RESIDUAL NOTED AT THIS TIME; NO SIGNS OF BLEEDING; CLAMPED. PATIENT WILL BE ON TUBE FEEDING (NEPRO @70CC/HR);WILL MONITOR FOR SIGNS OF BLEEDING BEFORE STARTING FEEDING. NOTED IV SITE ON R HAND #20; PATENT, INTACT AND FLUSHING WELL; NO S/S OF INFECTION OR INFILTRATION. PT ALSO HAS L CW PORT A CATH SECURED AND INTACT. VILLARREAL CATH IN PLACE, MINIMAL URINE OUTPUT NOTED. COMPREHENSIVE PHYSICAL ASSESSMENT AND PATIENT CARE DONE. CALL LIGHT WITHIN REACH, SAFETY MEASURES AND ISOLATION PRECAUTION IN PLACE, WILL CONTINUE MONITOR AND ASSESS THROUGHOUT THE SHIFT. WILL CARRY OUT MD ORDERS ACCORDINGLY.
--- NOTE | 2020-10-03 19:38 | NUR ---
RN NOTES RECEIVED CALL FROM DR. MCFARLANE, PROVIDED PERTINENT INFO ABOUT PT, MD SAID START PROTONIX 40MG BID, RN ACKNOWLEDGED. HE ALSO ADDED MAY START FEEDING IF NO NOTED GI BLEEDING UPON ASPIRATION FROM G TUBE AND NO NOTED FECAL BLOOD. RN ACKNOWLEDGED. HE KHOA TO CALL AND INFORM HIM FOR ANY CHANGES AND IF THERES ANY QUESTION. RN ACKNOWLEDGED. WILL CONTINUE TO MONITOR AND ASSESS THROUGHOUT THE SHIFT. MOLD YARD CRANE OPERATOR MADE AWARE.
--- NOTE | 2020-10-03 19:49 | NUR ---
received patient from er. relayed info to upcoming shift for admission. vital signs taken.
[2020-10-03 20:00] VITALS: BP 125/79
--- NOTE | 2020-10-03 20:03 | NUR ---
RN NOTES RT COORDINATED WITH PRIMARY RN THAT BREATHING TX IS ON HOLD PT'S COVID PCR IS STILL PENDING. RN ACKNOWLEDGED. HAZARDOUS WASTE TECHNICIAN MADE AWARE. WILL CONTINUE TO MONITOR AND ASSESS THROUGHOUT THE SHIFT.
--- NOTE | 2020-10-03 20:04 | NUR ---
RT neb tx not given to due to pending covid lab resulte. nkechi block, notified.
[2020-10-03] MEDS: PANTOPRAZOLE 40 MG VIAL IV SCH (20:56)
[2020-10-03] MEDS: CHLORHEXIDINE GLUCONATE 15 ML UDC MM SCH (20:56)
[2020-10-03] MEDS: DOCUSATE SODIUM LIQ 100 MG/10 ML UDC GT SCH (20:56)
[2020-10-03] MEDS: ACIDOPHILUS/BULGARICUS 1 EACH TAB.CHEW GT SCH (20:57)
[2020-10-03] MEDS: VIT B CMPLX 3/FA/VIT C/BIOTIN 1 TAB TABLET GT SCH (21:55)
--- NOTE | 2020-10-03 23:00 | NUR ---
RN NOTES PATIENT REMAINS IN NO ACUTE RESPIRATORY DISTRESS AT THIS TIME, NO CHANGES TO CONDITION/STATUS. SVP WELL AWARE. WILL CONTINUE TO MONITOR AND REASSESS FOR ANY CHANGES THROUGHOUT THE SHIFT
--- NOTE | 2020-10-03 23:39 | NUR ---
RT pt received on mechanical vent. trached, portex 8. vent plugged in to red outlet. trach patent and secure. ambu bag at hob. spare trach at bedside. minimal secretions suctioned via trach. no sob, no resp distress. alarms on and audible. will continue to monitor
[2020-10-04] VITALS (8 sets, daily range): BP systolic 79–118; BP diastolic 50–81
[2020-10-04 00:37] LABS: BASOPHILS # (AUTO) 0.1 /CMM (0.0-0.2); BASOPHILS % (AUTO) 0.8 % (0.0-2.0); EOSINOPHILS % (AUTO) 2.7 % (0.0-6.0); HEMATOCRIT 35 % (39-51); HEMOGLOBIN 10.9 g/dL (13.5-17.5); LYMPHOCYTES # (AUTO) 1.8 /CMM (0.8-4.8); LYMPHOCYTES % (AUTO) 13.5 % (20.0-44.0); MEAN CORPUSCULAR HGB CONC 32 g/dl (31.0-36.0); MEAN CORPUSCULAR VOLUME 98 fL (80-96); MONOCYTES # (AUTO) 1.7 /CMM (0.1-1.30); MONOCYTES % (AUTO) 12.3 % (2.0-12.0); NEUTROPHILS # (AUTO) 9.5 /CMM (1.8-8.9); NEUTROPHILS % (AUTO) 70.7 % (43.0-81.0); PLATELET COUNT (AUTO) 291 /CMM (150-450); RED BLOOD CELL COUNT(AUTO) 3.52 MIL/uL (4.5-6.0); WHITE BLOOD COUNT (AUTO) 13.4 K/uL (4.3-11.0)
[2020-10-04] MEDS: BLOOD SUGAR DIAGNOSTIC 1 EACH STRIP IN SCH ×5 (00:52→23:17)
[2020-10-04] MEDS: INSULIN REGULAR, HUMAN 100 UNIT/ML 3 ML VIAL SQ PRN ×3 (00:53→23:16)
[2020-10-04] MEDS: IPRATROPIUM NEB FS 0.5 MG/2.5 ML AMPUL.NEB NEB SCH ×4 (01:23→19:30)
[2020-10-04] MEDS: ALBUTEROL FS 2.5 MG/0.5 ML VIAL.NEB NEB SCH ×4 (01:23→19:30)
[2020-10-04] MEDS: NEPRO 1,000 ML BOTTLE GT PRN ×2 (02:40→17:18)
--- NOTE | 2020-10-04 02:45 | NUR ---
RN NOTES RN ABOUT TO START FEEDING, SUPPLIES PREPARED. GTUBE PATENCY ASSESSMENT DONE; RESIDUAL TAKEN; 10CC BLOODY COFFEE GROUND. FEEDING POSTPONED, MADE AWARE. WILL ENDORSE TO AM SHIFT RN FOR FOLLOW THROUGH. WILL CONTINUE TO ASSESS AND MONITOR THROUGHOUT THE SHIFT.
--- NOTE | 2020-10-04 03:00 | NUR ---
RN NOTES NO CHANGE IN PATIENT CONDITION AT THIS TIME PATIENT VITALS STABLE, NO SIGNS OF ACUTE RESPIRATORY DISTRESS. LUMBER PILER MADE AWARE. WILL CONTINUE TO MONITOR AND REASSESS FOR ANY CHANGES THROUGHOUT THE SHIFT.
[2020-10-04 06:37] LABS: BASOPHILS # (AUTO) 0.1 /CMM (0.0-0.2); EOSINOPHILS % (AUTO) 2.7 % (0.0-6.0); HEMATOCRIT 33 % (39-51); HEMOGLOBIN 10.4 g/dL (13.5-17.5); LYMPHOCYTES % (AUTO) 13.4 % (20.0-44.0); MEAN CORPUSCULAR HGB CONC 32 g/dl (31.0-36.0); MEAN CORPUSCULAR VOLUME 97 fL (80-96); MONOCYTES # (AUTO) 1.8 /CMM (0.1-1.30); MONOCYTES % (AUTO) 12.2 % (2.0-12.0); NEUTROPHILS # (AUTO) 10.4 /CMM (1.8-8.9); NEUTROPHILS % (AUTO) 70.7 % (43.0-81.0); PLATELET COUNT (AUTO) 302 /CMM (150-450); RED BLOOD CELL COUNT(AUTO) 3.36 MIL/uL (4.5-6.0); WHITE BLOOD COUNT (AUTO) 14.7 K/uL (4.3-11.0)
--- NOTE | 2020-10-04 06:46 | NUR ---
RN CLOSING NOTE: PATIENT REMAINS IN ROOM IN NO SIGNS OF RESPIRATORY DISTRESS; STILL ON VENT SETTING PER ORDERED. SAFETY MEASURES IMPLEMENTED, BED IN LOWEST POSITION, LOCKED, SIDE RAILS UP, CALL LIGHT WITHIN REACH. ALL NEEDS AND ORDERS ADDRESSED DURING THE SHIFT. IV ACCESS MAINTAINED INTACT, SECURED AND FLUSHING WELL. ALL DUE MEDS GIVEN ORDERED & SCHEDULED ; PATIENT TOLERATED WELL. PATIENT KEPT CLEAN AND COMFORTABLE WITHIN THE SHIFT. PATIENT ENDORSED TO INCOMING SHIFT RN WITH STABLE VITAL SIGN AND FOR CONTINUITY OF CARE.
[2020-10-04 07:08] LABS: CALCIUM, SERUM 9.4 mg/dL (8.5-10.1); MAGNESIUM 3.5 mg/dL (1.8-2.4); PHOSPHORUS 6.1 mg/dL (2.5-4.9); POTASSIUM 4.6 mmol/L (3.5-5.1)
[2020-10-04 07:13] LABS: CREATININE 8.4 mg/dL (0.6-1.3)
[2020-10-04] MEDS: CALCIUM ACETATE 667 MG TABLET GT SCH ×3 (08:00→17:51)
[2020-10-04] MEDS: ACIDOPHILUS/BULGARICUS 1 EACH TAB.CHEW GT SCH ×2 (08:29→20:28)
[2020-10-04] MEDS: CHLORHEXIDINE GLUCONATE 15 ML UDC MM SCH ×2 (08:29→20:27)
[2020-10-04] MEDS: PANTOPRAZOLE 40 MG VIAL IV SCH ×2 (08:29→20:26)
[2020-10-04] MEDS: ZINC SULFATE 220 MG CAPSULE GT SCH (08:29)
[2020-10-04] MEDS: ATENOLOL 25 MG TABLET GT SCH (08:30)
[2020-10-04] MEDS: DOCUSATE SODIUM LIQ 100 MG/10 ML UDC GT SCH ×2 (08:30→20:26)
[2020-10-04] MEDS: PROSTAT (PYXIS) 30 ML UDC GT SCH ×2 (08:31→17:00)
[2020-10-04] MEDS: THERAHONEY GEL 1.5 OZ TUBE TP SCH (09:00)
[2020-10-04] MEDS ORDERED: VANCOMYCIN 1 GM in IV D5W 250 ML IV ONE (11:00)
--- NOTE | 2020-10-04 18:19 | NUR ---
RN Note: Pt received awake, open eyes spontaneously. Vent-trac settings, tolerating well. Aspiration precautions observed. G-Tube on hold due to residual red-brownish color. F/C intact with no urine output. Safety measures observed. Continue to monitor. Addendum: 10/04/20 at 1823 by THEO ESPINOZA RN Addendum time 0800. Initial note.
--- NOTE | 2020-10-04 18:23 | NUR ---
RN note: Beginning of HD, noted SBP decreased to 70s, Dr. Ojeda was notified by HD RN. Ok to hold dialysis today. Reassess BP after 30minutes is 95/59. G-Tube feeding started due to no residual noted. Aspiration precautions observed. Safety measures observed. Continue to monitor.
--- NOTE | 2020-10-04 19:48 | NUR ---
RT NOTE TX NOT ADMINISTERED DUE TO PENDING COVID RESULTS. NO DISTRESS NOTED AT THIS TIME. CONT. PULSE OX CONNECTED. WILL MONITOR CLOSELY.
[2020-10-04] MEDS: VIT B CMPLX 3/FA/VIT C/BIOTIN 1 TAB TABLET GT SCH (23:09)
[2020-10-05] VITALS: BP 116/73
[2020-10-05] MEDS: ALBUTEROL FS 2.5 MG/0.5 ML VIAL.NEB NEB SCH ×4 (01:30→19:30)
[2020-10-05] MEDS: IPRATROPIUM NEB FS 0.5 MG/2.5 ML AMPUL.NEB NEB SCH ×4 (01:30→19:30)
[2020-10-05 04:00] VITALS: BP 99/67
[2020-10-05 06:01] LABS: BASOPHILS # (AUTO) 0.1 /CMM (0.0-0.2); BASOPHILS % (AUTO) 0.5 % (0.0-2.0); EOSINOPHILS % (AUTO) 1.2 % (0.0-6.0); HEMATOCRIT 29 % (39-51); HEMOGLOBIN 9.1 g/dL (13.5-17.5); LYMPHOCYTES # (AUTO) 2.5 /CMM (0.8-4.8); LYMPHOCYTES % (AUTO) 11.3 % (20.0-44.0); MEAN CORPUSCULAR HGB CONC 31 g/dl (31.0-36.0); MEAN CORPUSCULAR VOLUME 98 fL (80-96); MONOCYTES # (AUTO) 2.5 /CMM (0.1-1.30); MONOCYTES % (AUTO) 11.2 % (2.0-12.0); NEUTROPHILS # (AUTO) 16.6 /CMM (1.8-8.9); NEUTROPHILS % (AUTO) 75.8 % (43.0-81.0); PLATELET COUNT (AUTO) 341 /CMM (150-450); RED BLOOD CELL COUNT(AUTO) 3.01 MIL/uL (4.5-6.0); WHITE BLOOD COUNT (AUTO) 21.9 K/uL (4.3-11.0)
[2020-10-05 06:08] LABS: CALCIUM, SERUM 9.8 mg/dL (8.5-10.1); POTASSIUM 4.7 mmol/L (3.5-5.1)
[2020-10-05] MEDS: BLOOD SUGAR DIAGNOSTIC 1 EACH STRIP IN SCH ×3 (06:45→17:47)
[2020-10-05] MEDS: INSULIN REGULAR, HUMAN 100 UNIT/ML 3 ML VIAL SQ PRN ×3 (06:46→17:48)
--- NOTE | 2020-10-05 07:03 | NUR ---
RN notes In bed resting comfortably with no respiratory distress, on vent setting well tolerated. No physical manifestation of pain or discomfort. Anuric. No significant change of condition. Vital signs wnl. Kept clean and dry. Will endorse to next shift for continuity of care.
--- NOTE | 2020-10-05 07:15 | NUR ---
RN OPENING NOTES RECEIVED PT IN BED. ON TRACH/MECH VENT, TOLERATING SETTINGS WELL. NO SOB OR ANY SIGNS OF RESPIRATORY DISTRESS. O2 SAT @100%. IV ACCESS AT R HAND #20 INTACT, PATENT AND FLUSHED. GT CHECKED FOR POSITIVE PLACEMENT. TUBE FEEDING RUNNING @70ML/HR TOLERATING FEEDING WELL. NO RESIDUAL. SAFETY MEASURES IMPLEMENTED. CALL LIGHT WITHIN REACH. BED LOCKED AND IN LOWEST POSITION WITH SIDE RAILS UP X2. WILL CONTINUE TO MONITOR.
[2020-10-05 07:40] LABS: CREATININE 10.3 mg/dL (0.6-1.3)
[2020-10-05 08:00] VITALS: BP 90/59
[2020-10-05] MEDS: ZINC SULFATE 220 MG CAPSULE GT SCH (08:52)
[2020-10-05] MEDS: PANTOPRAZOLE 40 MG VIAL IV SCH ×2 (08:52→20:19)
[2020-10-05] MEDS: DOCUSATE SODIUM LIQ 100 MG/10 ML UDC GT SCH ×2 (08:52→20:19)
[2020-10-05] MEDS: ACIDOPHILUS/BULGARICUS 1 EACH TAB.CHEW GT SCH ×2 (08:52→20:19)
[2020-10-05] MEDS: CALCIUM ACETATE 667 MG TABLET GT SCH ×3 (08:52→17:39)
[2020-10-05] MEDS: CHLORHEXIDINE GLUCONATE 15 ML UDC MM SCH ×2 (08:52→20:19)
[2020-10-05] MEDS: ATENOLOL 25 MG TABLET GT SCH (08:53)
[2020-10-05] MEDS: PROSTAT (PYXIS) 30 ML UDC GT SCH ×2 (08:53→16:40)
[2020-10-05] MEDS: THERAHONEY GEL 1.5 OZ TUBE TP SCH (09:00)
--- NOTE | 2020-10-05 09:57 | NUR ---
RN NOTES BP OF 90/59. TENORMIN NOT GIVEN.
[2020-10-05] MEDS: MIDODRINE HCL (5MG) 5 MG TABLET GT PRN ×2 (10:10→15:44)
[2020-10-05] MEDS ORDERED: VANCOMYCIN 500 MG in IV D5W 100 ML IV PRN (11:00)
[2020-10-05 12:00] VITALS: BP 93/60
--- NOTE | 2020-10-05 12:09 | NUR ---
RN NOTES BS OF 104, NO INSULIN COVERAGE.
[2020-10-05] MEDS ORDERED: ALBUMIN 25% 25 GM in PREMIX 1 EA IV PRN (15:00)
[2020-10-05 16:00] VITALS: BP 83/58
--- NOTE | 2020-10-05 17:48 | NUR ---
RN NOTES BS OF 93, NO INSULIN COVERAGE. STARTED HD. VS STABLE. NOT IN DISTRESS.
--- NOTE | 2020-10-05 18:40 | NUR ---
RN CLOSING NOTES NO SIGNIFICANT CHANGES THROUGHOUT THE SHIFT. NOT IN DISTRESS. TOLERATING VENT SETTINGS WELL. ONGOING HD. SAFETY MEASURES STILL IN PLACE. WILL ENDORSE TO NIGHT RN FOR DENNIS.
--- NOTE | 2020-10-05 19:20 | NUR ---
RN OPENING NOTE RECEIVED PATIENT IN BED RESTING OBTUNDED OPEN EYES CONTACTED,ON MECHANICAL VENT O2:100%ON G-TUBE FEEING NEPRO 70CC/HR CHECKED PLACEMENT IN PLACE NO RESIDUAL NOTED,HEAD OF THE BED ELEVATED,HD CATH ON LEFT UPPER CHEST DRESSING INTACT,IV SITE IS ON RIGHT UPPER ARM MIDLINE INTACT PATENT,VILLARREAL CATHETER IN PLACE SMALL AMOUNT OF URINE,YELLOW AND CLEAR,SAFETY MEASURE IMPLEMENT,BED IN LOW POSITION AND LOCKED,CONTINUE TO MONITOR.
--- NOTE | 2020-10-05 19:43 | NUR ---
RT NOTE HHN TX NOT GIVEN DUE TO PENDING COVID RESULTS. NO DISTRESS NOTED AT THIS TIME. WILL MONITOR CLOSELY. CONT. PULSE OX CONNECTED.
[2020-10-05 20:00] VITALS: BP 105/61
[2020-10-05] MEDS: NEPRO 1,000 ML BOTTLE GT PRN (22:01)
[2020-10-05] MEDS: VIT B CMPLX 3/FA/VIT C/BIOTIN 1 TAB TABLET GT SCH (22:03)
[2020-10-06] VITALS: BP 120/76
--- NOTE | 2020-10-06 | NUR ---
RN NOTE BLOOD SUGAR IS 126 INSULIN NOT REQUIRED PER SLIDING SCALE CONTINUE TO MONITOR.
[2020-10-06] MEDS: BLOOD SUGAR DIAGNOSTIC 1 EACH STRIP IN SCH ×5 (00:05→23:53)
[2020-10-06] MEDS: INSULIN REGULAR, HUMAN 100 UNIT/ML 3 ML VIAL SQ PRN ×5 (00:08→23:54)
[2020-10-06] MEDS: IPRATROPIUM NEB FS 0.5 MG/2.5 ML AMPUL.NEB NEB SCH ×4 (01:30→19:52)
[2020-10-06] MEDS: ALBUTEROL FS 2.5 MG/0.5 ML VIAL.NEB NEB SCH ×4 (01:30→19:52)
[2020-10-06 04:00] VITALS: BP 114/40
--- NOTE | 2020-10-06 05:58 | NUR ---
RN NOTE BLOOD SUGAR IS 123 INSULIN NOT REQUIRED PER SLIDING SCALE CONTINUE TO MONITOR.
[2020-10-06 06:15] LABS: ALBUMIN 3.5 g/dL (3.4-5.0); BILIRUBIN,TOTAL 0.6 mg/dL (0.2-1.0); CALCIUM, SERUM 9.5 mg/dL (8.5-10.1); MAGNESIUM 3.7 mg/dL (1.8-2.4); PHOSPHORUS 4.8 mg/dL (2.5-4.9); POTASSIUM 4.2 mmol/L (3.5-5.1); TOTAL PROTEIN, SERUM 7.6 g/dL (6.4-8.2)
[2020-10-06 06:20] LABS: BASOPHILS # (AUTO) 0.1 /CMM (0.0-0.2); BASOPHILS % (AUTO) 0.6 % (0.0-2.0); EOSINOPHILS % (AUTO) 1.6 % (0.0-6.0); HEMATOCRIT 27 % (39-51); HEMOGLOBIN 8.6 g/dL (13.5-17.5); LYMPHOCYTES # (AUTO) 1.8 /CMM (0.8-4.8); LYMPHOCYTES % (AUTO) 8.6 % (20.0-44.0); MEAN CORPUSCULAR HGB CONC 32 g/dl (31.0-36.0); MEAN CORPUSCULAR VOLUME 96 fL (80-96); MONOCYTES # (AUTO) 1.9 /CMM (0.1-1.30); MONOCYTES % (AUTO) 9.2 % (2.0-12.0); NEUTROPHILS # (AUTO) 16.2 /CMM (1.8-8.9); PLATELET COUNT (AUTO) 241 /CMM (150-450); RED BLOOD CELL COUNT(AUTO) 2.81 MIL/uL (4.5-6.0); WHITE BLOOD COUNT (AUTO) 20.3 K/uL (4.3-11.0)
[2020-10-06 06:21] LABS: CREATININE 9.7 mg/dL (0.6-1.3)
--- NOTE | 2020-10-06 06:47 | NUR ---
RN CLOSING NOTE PATIENT REMAINS ON ALERT OBTUNDED CONTRACTED,ON MECHANICAL VENT O2:99% ON G-TUBE FEEDING CHECKED PLACEMENT IN PLACE,VILLARREAL CATHETER IN PLACE,NO URINE,ALL DUE MED GIVEN MD ORDERED WOUND TREATMENT DONE, HEAD OF BED ELEVATED ALL THE TIME,IMPLEMENTED SAFETY MEASURE,KEPT CLEAN AND DRY ALL THE TIME,ALL NEEDS MET.ENDORSE NEXT COMING SHIFT FOR CONTUNUATION FO CARE
--- NOTE | 2020-10-06 07:35 | NUR ---
Received patient with no s/s of respiratory distress. On mechanical vent setting sary well with 02 sat of 98%. Patient on g tube feeding sary well . will continue to monitor. Bed is in lowest and locked position. Call light with in reach.
[2020-10-06 08:00] VITALS: BP 102/43
[2020-10-06] MEDS: PANTOPRAZOLE 40 MG VIAL IV SCH ×2 (08:28→20:11)
[2020-10-06] MEDS: CHLORHEXIDINE GLUCONATE 15 ML UDC MM SCH ×2 (08:28→20:11)
[2020-10-06] MEDS: ZINC SULFATE 220 MG CAPSULE GT SCH (08:28)
[2020-10-06] MEDS: CALCIUM ACETATE 667 MG TABLET GT SCH ×3 (08:28→17:06)
[2020-10-06] MEDS: ATENOLOL 25 MG TABLET GT SCH (08:29)
[2020-10-06] MEDS: DOCUSATE SODIUM LIQ 100 MG/10 ML UDC GT SCH ×2 (08:30→20:11)
[2020-10-06] MEDS: ACIDOPHILUS/BULGARICUS 1 EACH TAB.CHEW GT SCH ×2 (08:30→20:11)
[2020-10-06] MEDS: PROSTAT (PYXIS) 30 ML UDC GT SCH ×2 (08:41→17:00)
--- NOTE | 2020-10-06 10:00 | NUR ---
Patient noted with righter upper arm midline dislodged. Informed MD Kerr. Multiple attempts of peripheral but to no avail. Per MD Peter to insert picc line. Order noted and carrried out.Consent obtained. Nurse aware but she was unable to place picc lline. Mid line placed using 5 s luxembourgish picc line catheter. No s/s of active bleeding.
[2020-10-06] MEDS: THERAHONEY GEL 1.5 OZ TUBE TP SCH (10:04)
[2020-10-06] MEDS ORDERED: THERAHONEY GEL 1.5 OZ TUBE TP PRN (10:30)
--- NOTE | 2020-10-06 10:31 | NUR ---
WOUND CARE CONSULT: REVIEWED CHART, NURSING DOCUMENTATION AND PHOTOS WHICH INDICATE MULTIPLE WOUNDS, PRESENT ON ADMISSION. SURGICAL AND DPM CONSULTS CALLED TO DR MARIEE AND DR LAM. RECOMMENDATIONS MADE FOR SKIN PROTECTION. DISCUSSED WITH NURSING STAFF. FIRST STEP LOW AIRLOSS MATTRESS IS ON ORDER. MD IN AGREEMENT WITH PLAN OF CARE.
[2020-10-06 12:00] VITALS: BP 102/47
[2020-10-06] MEDS: MEROPENEM 500 MG in IV NS 0.9% 50 ML IV SCH (12:11)
[2020-10-06 16:00] VITALS: BP 95/47
--- NOTE | 2020-10-06 18:25 | NUR ---
RN CLOSING NOTES Patient currently in bed and on mechanical vent trach setting at AC 14, TV 500 Fi02 of 40% and Peep of 5. Patient opens eyes to physical stimuli. Breathing even and unlabored. Patient with a new right upper arm mid line , flushed well. Wound care provided as ordered. Turned and repositioned q2h and prn. Gtube's placement noted . Will endorse to next shift for DENNIS. Patient had one small black tarry bm during shift. Bed is in lowest and locked position.
--- NOTE | 2020-10-06 19:30 | NUR ---
RN OPENING NOTE RECEIVED PATIENT IN BED RESTING OBTUNDED CONTACTED,ON MECHANICAL VENT OPEN EYES ON G TUBE FEEDING NEPRO 70CC/HR CHECKED PLACEMENT IN PLACE,NO RESIDUAL,IV SITE IS RIGHT UPPER ARM MIDLINE INTACT PATENT HEAD OF BED ELEVATED,VILLARREAL IN PLACE NO URINE,SAFETY MEASURE IMPLEMENT BED IN LOW POSITION AND LOCKED CONTINUE TO MONITOR.
[2020-10-06 20:00] VITALS: BP 92/60
[2020-10-06] MEDS: VIT B CMPLX 3/FA/VIT C/BIOTIN 1 TAB TABLET GT SCH (21:19)
[2020-10-06] MEDS: METRONIDAZOLE 500 MG TABLET PO SCH (22:03)
[2020-10-06] MEDS: NEPRO 1,000 ML BOTTLE GT PRN (22:14)
[2020-10-06] MEDS: MIDODRINE HCL (5MG) 5 MG TABLET GT PRN (23:43)
--- NOTE | 2020-10-06 23:56 | NUR ---
RN NOTE BLOOD PRESSURE IN 86/46 MIDODRINE 5MG 2 TAB GIVEN FOR LOW BP,ALSO PATIENT IS BLOOD SUGAR IS 109 NOT REQUIRES INSULIN PER SLIDING SCALE,CONTINUE TO MONITOR.
[2020-10-07] VITALS (7 sets, daily range): BP systolic 84–118; BP diastolic 48–71
[2020-10-07] MEDS: IPRATROPIUM NEB FS 0.5 MG/2.5 ML AMPUL.NEB NEB SCH ×4 (01:16→20:34)
[2020-10-07] MEDS: ALBUTEROL FS 2.5 MG/0.5 ML VIAL.NEB NEB SCH ×4 (01:16→20:34)
[2020-10-07] MEDS: METRONIDAZOLE 500 MG TABLET PO SCH ×3 (04:15→21:17)
[2020-10-07] MEDS: MIDODRINE HCL (5MG) 5 MG TABLET GT PRN ×2 (04:15→11:19)
[2020-10-07] MEDS: BLOOD SUGAR DIAGNOSTIC 1 EACH STRIP IN SCH ×4 (06:04→22:11)
[2020-10-07] MEDS: INSULIN REGULAR, HUMAN 100 UNIT/ML 3 ML VIAL SQ PRN (06:06)
--- NOTE | 2020-10-07 06:06 | NUR ---
RN NOTE BLOOD SUGAR IS 97 NOT REQUIRED INSULIN SLIDING SCALE CONTINUE TO MONITOR.
[2020-10-07 06:37] LABS: CALCIUM, SERUM 9.8 mg/dL (8.5-10.1); POTASSIUM 4.3 mmol/L (3.5-5.1)
--- NOTE | 2020-10-07 06:42 | NUR ---
RN NOTE BLOOD PRESSURE IS NOW 96/69 CONTINUE TO MONITOR.
--- NOTE | 2020-10-07 06:49 | NUR ---
RN NOTE RECEIVED CRITICAL LAB RESULTS BUN 167 AND CREATININE 11 PATIENT IS ON DIALYSIS CONTINUE TO MONITOR.
--- NOTE | 2020-10-07 06:51 | NUR ---
RN CLOSING NOTE PATIENT REMAINS ON ALERT OBTUNDED CONTRACTED,ON MECHANICAL VENT ON G-TUBE FEEDING ON VILLARREAL CATHETER NO URINE,BLOOD PRESSURE IS STABLE,ALL DUE MEDS GIVEN MD ORDERED KEPT CLEAN AND DRY ALL THE TIME,KEPT COMFORTABLE,HEAD OF BED ELEVATED,KEPT COMFORTABLE ENDORSE NEXT COMING SHIFT FOR CONTINUATION OF CARE.
--- NOTE | 2020-10-07 07:00 | NUR ---
RN NOTE RECEIVED PATIENT ON BED, VENT/TRACH DEPENDENT, OBTUNDED, CONTRACTED, ON TELE SR HR IN 70'S ,TF AT 70CC/RUNNING , NO RESIDUAL, NOTED, HOB ELEVATED, IV SITE ON RIGHT UPPER ARM MIDLINE INTACT PATENT , VILLARREAL IN PLACE, NO URINE OUTPUT NOTED, SR UP x3, CALL LIGHT WITHIN EASY REACH, BED LOCKED AND IN LOWEST POSITION, CONTINUE TO MONITOR.
--- NOTE | 2020-10-07 08:01 | NUR ---
RT Pt received trached on mechanical ventilation with noted settings. Pt has spare tracheostomy tube and BVM by bedside. Vent is plugged into red, vent alarms are set and audible. No SOB or respiratory distress noted at this time. Addendum: 10/07/20 at 0802 by TYRESE ROWE RT Amended: Links added.
[2020-10-07] MEDS: PANTOPRAZOLE 40 MG VIAL IV SCH ×2 (08:12→21:20)
[2020-10-07] MEDS: ZINC SULFATE 220 MG CAPSULE GT SCH (08:12)
[2020-10-07] MEDS: CHLORHEXIDINE GLUCONATE 15 ML UDC MM SCH ×2 (08:12→21:16)
[2020-10-07] MEDS: FLUCONAZOLE (100 MG) 100 MG TABLET PO SCH (08:12)
[2020-10-07] MEDS: CALCIUM ACETATE 667 MG TABLET GT SCH ×3 (08:12→17:07)
[2020-10-07] MEDS: ACIDOPHILUS/BULGARICUS 1 EACH TAB.CHEW GT SCH ×2 (08:12→21:17)
[2020-10-07] MEDS: DOCUSATE SODIUM LIQ 100 MG/10 ML UDC GT SCH ×2 (08:13→21:16)
[2020-10-07] MEDS: SILVER SULFADIAZINE 50 GM JAR TP SCH (08:29)
[2020-10-07] MEDS: ATENOLOL 25 MG TABLET GT SCH (09:00)
[2020-10-07] MEDS: MEROPENEM 500 MG in IV NS 0.9% 50 ML IV SCH (09:03)
[2020-10-07] MEDS: PROSOURCE / PROSTAT (PYXIS) 30 ML UDC GT SCH ×2 (09:10→16:27)
[2020-10-07 10:11] LABS: BASOPHILS # (AUTO) 0.1 /CMM (0.0-0.2); BASOPHILS % (AUTO) 0.5 % (0.0-2.0); EOSINOPHILS % (AUTO) 1.9 % (0.0-6.0); HEMATOCRIT 28 % (39-51); HEMOGLOBIN 8.6 g/dL (13.5-17.5); LYMPHOCYTES # (AUTO) 2.1 /CMM (0.8-4.8); LYMPHOCYTES % (AUTO) 10.5 % (20.0-44.0); MEAN CORPUSCULAR HGB CONC 31 g/dl (31.0-36.0); MEAN CORPUSCULAR VOLUME 99 fL (80-96); MONOCYTES % (AUTO) 10.3 % (2.0-12.0); NEUTROPHILS # (AUTO) 15.2 /CMM (1.8-8.9); NEUTROPHILS % (AUTO) 76.8 % (43.0-81.0); PLATELET COUNT (AUTO) 235 /CMM (150-450); WHITE BLOOD COUNT (AUTO) 19.8 K/uL (4.3-11.0)
--- NOTE | 2020-10-07 15:00 | NUR ---
RN NOTES PT RECEIVED HD , TOLERATED WELL , CONTINUE TO MONITOR.
[2020-10-07] MEDS: NEPRO 1,000 ML BOTTLE GT PRN (15:14)
--- NOTE | 2020-10-07 18:14 | NUR ---
RN NOTES NO SIGNIFICANT CHANGES NOTED ON THIS SHIFT, VSS STABEL, TRACH CARE DONE NEEDED, TOLERATING TF AT 70CC/HR WELL, SR UP x3, CALL LIGHT WITHIN EASY REACH, BED LOCKED AND IN LOWEST POSITION, WILL ENDORSE TO REAL ESTATE DIRECTOR NURSE FOR CONTINUITY OF CARE.
--- NOTE | 2020-10-07 19:30 | NUR ---
sylvia/artificial flowers dyer received report from day nurse. see flowsheet for assessment.
[2020-10-07] MEDS: VIT B CMPLX 3/FA/VIT C/BIOTIN 1 TAB TABLET GT SCH (21:17)
[2020-10-08] VITALS: BP 111/65
[2020-10-08] MEDS: IPRATROPIUM NEB FS 0.5 MG/2.5 ML AMPUL.NEB NEB SCH ×4 (02:07→19:56)
[2020-10-08] MEDS: ALBUTEROL FS 2.5 MG/0.5 ML VIAL.NEB NEB SCH ×4 (02:07→19:55)
--- NOTE | 2020-10-08 02:21 | NUR ---
RT NOTE Pt rec'd trached on [facility] vent on AC mode settings as charted. pt shows no signs of resp distress or sob. Trach is patent and secured. pt sx'd for small amt of pale yellow secretions. Alarms are set and audible. ambu bag bedside. vent plugged into red outlet. will continue to monitor closely. Addendum: 10/08/20 at 0223 by EFRAIN PATTERSON RT Amended: Links added.
[2020-10-08 04:00] VITALS: BP 114/60
[2020-10-08] MEDS: METRONIDAZOLE 500 MG TABLET PO SCH ×3 (04:13→21:01)
[2020-10-08] MEDS: BLOOD SUGAR DIAGNOSTIC 1 EACH STRIP IN SCH ×3 (05:21→17:10)
[2020-10-08 06:17] LABS: CALCIUM, SERUM 10.1 mg/dL (8.5-10.1); POTASSIUM 4.4 mmol/L (3.5-5.1)
[2020-10-08 06:55] LABS: CREATININE 9.4 mg/dL (0.6-1.3)
--- NOTE | 2020-10-08 07:30 | NUR ---
RN OPENING NOTE PATIENT IS IN BED WITH HOB AT SEMI FOWLERS POSITION. PATIENT IS CURRENTLY ON TRACH/VENT WITH NO SIGNS OF LABORED BREATHING. PATIENT IS OBTUNDED. VILLARREAL CATHETER IS IN PLACE. GTUBE IS IN PLACE. SACRAL AND BILATERAL HEEL WOUNDS ARE NOTED. ALEX MIDLINE IS IN PLACE. BED IS LOCKED IN THE LOWEST POSITION, 3 GUARD RAILS RAISED, AND ALL HOSPITAL SAFETY PRECAUTIONS ARE BEING FOLLOWED. WILL CONTINUE TO MONITOR THROUGHOUT SHIFT.
[2020-10-08 08:00] VITALS: BP 122/49
[2020-10-08] MEDS: FLUCONAZOLE (100 MG) 100 MG TABLET PO SCH (08:53)
[2020-10-08] MEDS: CALCIUM ACETATE 667 MG TABLET GT SCH ×3 (08:54→17:00)
[2020-10-08] MEDS: DOCUSATE SODIUM LIQ 100 MG/10 ML UDC GT SCH ×2 (08:54→21:00)
[2020-10-08] MEDS: ZINC SULFATE 220 MG CAPSULE GT SCH (08:54)
[2020-10-08] MEDS: CHLORHEXIDINE GLUCONATE 15 ML UDC MM SCH ×2 (08:54→21:01)
[2020-10-08] MEDS: ATENOLOL 25 MG TABLET GT SCH (08:54)
[2020-10-08] MEDS: ACIDOPHILUS/BULGARICUS 1 EACH TAB.CHEW GT SCH ×2 (08:54→21:01)
[2020-10-08] MEDS: PANTOPRAZOLE 40 MG VIAL IV SCH ×2 (08:54→21:01)
[2020-10-08] MEDS: PROSOURCE / PROSTAT (PYXIS) 30 ML UDC GT SCH ×2 (09:03→17:00)
[2020-10-08] MEDS: MEROPENEM 500 MG in IV NS 0.9% 50 ML IV SCH (09:04)
[2020-10-08] MEDS: MIDODRINE HCL (5MG) 5 MG TABLET GT PRN (10:53)
[2020-10-08 12:00] VITALS: BP 95/62
[2020-10-08] MEDS: NEPRO 1,000 ML BOTTLE GT PRN (13:12)
[2020-10-08] MEDS: SILVER SULFADIAZINE 50 GM JAR TP SCH (15:40)
[2020-10-08 16:00] VITALS: BP 100/56
--- NOTE | 2020-10-08 18:44 | NUR ---
RN CLOSING NOTE PATIENT IS IN BED WITH HOB AT SEMI FOWLERS POSITION. PATIENT IS CURRENTLY ON TRACH/VENT WITH NO SIGNS OF LABORED BREATHING. PATIENT IS OBTUNDED. VILLARREAL CATHETER IS IN PLACE. GTUBE IS IN PLACE. SACRAL AND BILATERAL HEEL WOUNDS HAD APPROPRIATE WOUND CARE APPLIED DURING SHIFT. ALEX PICC IS IN PLACE. BED IS LOCKED IN THE LOWEST POSITION, 3 GUARD RAILS RAISED, AND ALL HOSPITAL SAFETY PRECAUTIONS ARE BEING FOLLOWED. ALL DUE MEDS WERE GIVEN AND PATIENT REMAINED STABLE THROUGHOUT SHIFT. WILL ENDORSE TO VP CARDIOVASCULAR SERVICE LINE RN.
--- NOTE | 2020-10-08 19:30 | NUR ---
RN OPENING NOTES: RECEIVED VENT-TRACH PT IN BED RESTING COMFORTABLY. PATIENT IN NO S/SX OF ACUTE DISTRESS AT THIS TIME. NO SOB NOTED. PATIENT'S BREATHING IS EVEN AND UNLABORED. PATIENT ON MECHANICAL VENT; SETTINGS PRESCRIBED; PT TOLERATED WELL. AMBU BAG AT BED SIDE ALARMS SET PER PROTOCOL AND AUDIBLE. VENT PLUGGED IN TO RED OUTLET. NO DISTRESS NOTED. PATIENT ON TELE MONITORING READING SINUS RHYTHM HR IS @70s AT THE TIME OF RECEIVED. G TUBE FLUSHING AND PATENT; SITE CLEAN DRY AND INTACT; NO RESIDUAL NOTED; CONNECTED WITH TUBE FEEDING OF NEPRO@70ML/HR; PT TOLERATES WELL. NOTED IV SITE ON R UA PICC LINE; PATENT, INTACT AND FLUSHING WELL; NO S/S OF INFECTION OR INFILTRATION. PT ALSO HAS L CW HD CATH SECURED AND INTACT. WITH IV FLUID VILLARREAL CATH IN PLACE, MINIMAL URINE OUTPUT NOTED . PT HAS R WRIST SOFT WRIST RESTRAINT IN PLACE, ASSESSED PER PROTOCOL. SAFETY MEASURES HAVE BEEN PROVIDED AND IMPLEMENTED. PATIENT BED ALARM IS ON. HEAD OF BED ELEVATED. BED IS LOCKED, IN LOWEST POSITION AND SIDE RAILS UP. CALL LIGHT WITHIN REACH OF THE PATIENT. APPLICABLE ISOLATION PRECAUTIONS IN PLACE. WILL CONTINUE TO MONITOR AND REASSESS FOR ANY CHANGES AND WILL CARRY OUT ANY ONGOING AND ACTIVE MD ORDER.
[2020-10-08 20:00] VITALS: BP 102/65
[2020-10-08] MEDS: VIT B CMPLX 3/FA/VIT C/BIOTIN 1 TAB TABLET GT SCH (21:00)
--- NOTE | 2020-10-08 23:00 | NUR ---
RN NOTES NO CHANGE IN PATIENT CONDITION AT THIS TIME PATIENT VITALS STABLE, NO SIGNS OF ACUTE RESPIRATORY DISTRESS. PAPETERIE TABLE ASSEMBLER MADE AWARE. WILL CONTINUE TO MONITOR AND REASSESS FOR ANY CHANGES THROUGHOUT THE SHIFT.
[2020-10-09] VITALS: BP 110/70
[2020-10-09] MEDS: INSULIN REGULAR, HUMAN 100 UNIT/ML 3 ML VIAL SQ PRN ×2 (00:45→05:49)
[2020-10-09] MEDS: BLOOD SUGAR DIAGNOSTIC 1 EACH STRIP IN SCH ×3 (00:45→11:51)
[2020-10-09] MEDS: ALBUTEROL FS 2.5 MG/0.5 ML VIAL.NEB NEB SCH ×3 (01:03→13:22)
[2020-10-09] MEDS: IPRATROPIUM NEB FS 0.5 MG/2.5 ML AMPUL.NEB NEB SCH ×3 (01:03→13:22)
--- NOTE | 2020-10-09 03:30 | NUR ---
RN NOTES PATIENT REMAINS IN NO ACUTE RESPIRATORY DISTRESS AT THIS TIME, NO CHANGES TO CONDITION/STATUS. AM PATIENT CARE DONE. ROTARY DRUM DYER WELL AWARE. WILL CONTINUE TO MONITOR AND REASSESS FOR ANY CHANGES THROUGHOUT THE SHIFT
[2020-10-09 04:00] VITALS: BP 90/60
[2020-10-09] MEDS: METRONIDAZOLE 500 MG TABLET PO SCH ×2 (05:37→12:17)
[2020-10-09 06:08] LABS: CALCIUM, SERUM 9.9 mg/dL (8.5-10.1); CREATININE 7.1 mg/dL (0.6-1.3); POTASSIUM 4.4 mmol/L (3.5-5.1)
--- NOTE | 2020-10-09 06:54 | NUR ---
RN CLOSING NOTE: PATIENT REMAINS IN ROOM IN NO SIGNS OF RESPIRATORY DISTRESS, PATIENT STILL ON SAME VENT SETTINGS;TOLERATING WELL SATURATING @ >95% SP02. SAFETY MEASURES IMPLEMENTED, BED IN LOWEST POSITION, LOCKED, SIDE RAILS UP, CALL LIGHT WITHIN REACH. ALL NEEDS AND ORDERS ADDRESSED DURING THE SHIFT. IV ACCESS MAINTAINED INTACT, SECURED AND FLUSHING WELL. ALL DUE MEDS GIVEN ORDERED & SCHEDULED ; PATIENT TOLERATED WELL. PATIENT KEPT CLEAN AND COMFORTABLE WITHIN THE SHIFT. PATIENT ENDORSED TO INCOMING SHIFT RN WITH STABLE VITAL SIGN AND FOR CONTINUITY OF CARE.
--- NOTE | 2020-10-09 07:23 | NUR ---
RECEIVED PATIENT IN BED. NO ACUTE DISTRESS NOTED. PATIENT OPENS EYES, UNABLE TO COMMUNICATE. PATIENT TRACH'D ON MECHANICAL VENTILATOR, SATURATING 100%. PATIENT ON FINISHING FRAME RUNNER, NSR NOTED. PATIENT FC INTACT, DRAINING TO GRAVITY. PATIENT ALEX PICC INTACT, PATENT. PATIENT G-TUBE INTACT, PATENT. PATIENT RIGHT SOFT WRIST RESTRAINT IN PLACE. PATIENT SAFETY MEASURES MAINTAINED. WILL CONTINUE TO MONITOR.
[2020-10-09 08:00] VITALS: BP 106/44
[2020-10-09] MEDS: CHLORHEXIDINE GLUCONATE 15 ML UDC MM SCH (08:41)
[2020-10-09] MEDS: DOCUSATE SODIUM LIQ 100 MG/10 ML UDC GT SCH (08:41)
[2020-10-09] MEDS: CALCIUM ACETATE 667 MG TABLET GT SCH ×2 (08:41→12:17)
[2020-10-09] MEDS: PANTOPRAZOLE 40 MG VIAL IV SCH (08:42)
[2020-10-09] MEDS: FLUCONAZOLE (100 MG) 100 MG TABLET PO SCH (08:42)
[2020-10-09] MEDS: ACIDOPHILUS/BULGARICUS 1 EACH TAB.CHEW GT SCH (08:42)
[2020-10-09] MEDS: ATENOLOL 25 MG TABLET GT SCH (08:42)
[2020-10-09] MEDS: SILVER SULFADIAZINE 50 GM JAR TP SCH (08:43)
[2020-10-09] MEDS: ZINC SULFATE 220 MG CAPSULE GT SCH (08:43)
[2020-10-09] MEDS: PROSOURCE / PROSTAT (PYXIS) 30 ML UDC GT SCH (08:43)
[2020-10-09 09:22] LABS: BASOPHILS # (AUTO) 0.1 /CMM (0.0-0.2); BASOPHILS % (AUTO) 0.5 % (0.0-2.0); EOSINOPHILS % (AUTO) 2.6 % (0.0-6.0); HEMATOCRIT 25 % (39-51); HEMOGLOBIN 7.6 g/dL (13.5-17.5); LYMPHOCYTES # (AUTO) 1.3 /CMM (0.8-4.8); LYMPHOCYTES % (AUTO) 11.1 % (20.0-44.0); MEAN CORPUSCULAR HGB CONC 30 g/dl (31.0-36.0); MEAN CORPUSCULAR VOLUME 103 fL (80-96); MONOCYTES # (AUTO) 1.1 /CMM (0.1-1.30); MONOCYTES % (AUTO) 9.5 % (2.0-12.0); NEUTROPHILS # (AUTO) 9.2 /CMM (1.8-8.9); NEUTROPHILS % (AUTO) 76.3 % (43.0-81.0); PLATELET COUNT (AUTO) 183 /CMM (150-450); RED BLOOD CELL COUNT(AUTO) 2.47 MIL/uL (4.5-6.0)
[2020-10-09] MEDS: MEROPENEM 500 MG in IV NS 0.9% 50 ML IV SCH (09:28)
[2020-10-09 12:00] VITALS: BP 109/37
--- NOTE | 2020-10-09 15:17 | NUR ---
PATIENT DISCHARGED IN STABLE CONDITION. PATIENT TAKEN BY AMBULANCE AND STAFF TO [facility]. PATIENT TELEMETRY BOX REMOVED. REPORT GIVEN TO LON BAKER. PATIENT BELONGINGS AND PAPERWORK GIVEN TO AMBULANCE STAFF.
== END 2020-10-09 15:24 | DRG 720 ==
LOC: ER 14:03 → TELE-TD 17:24 → TELE1 10-04 01:03
PROVIDERS: ADMIT Nurse Practitioner Acute Care; ATTEND Internal Medicine
PROC: 5A1955Z Respiratory Ventilation, Greater than 96 Consecutive Hours (ICD-10-PCS; principal; 2020-10-03)
PROC: 5A1D70Z Performance of Urinary Filtration, Intermittent, Less than 6 Hours Per Day (ICD-10-PCS; 2020-10-04)
PROC: 05H533Z Insertion of Infusion Device into Right Subclavian Vein, Percutaneous Approach (ICD-10-PCS; 2020-10-05)
PROC: B546ZZA Ultrasonography of Right Subclavian Vein, Guidance (ICD-10-PCS; 2020-10-05)
PROC: 05H633Z Insertion of Infusion Device into Left Subclavian Vein, Percutaneous Approach (ICD-10-PCS; 2020-10-06)
PROC: B547ZZA Ultrasonography of Left Subclavian Vein, Guidance (ICD-10-PCS; 2020-10-06)
PROC: 0JBR0ZZ Excision of Left Foot Subcutaneous Tissue and Fascia, Open Approach (ICD-10-PCS; 2020-10-07)
PROC: 0JBQ0ZZ Excision of Right Foot Subcutaneous Tissue and Fascia, Open Approach (ICD-10-PCS; 2020-10-07)
DX: A41.9 Sepsis, unspecified organism (principal); J96.21 Acute and chronic respiratory failure with hypoxia; E43 Unspecified severe protein-calorie malnutrition; Z99.11 Dependence on respirator [ventilator] status; G93.41 Metabolic encephalopathy; L89.154 Pressure ulcer of sacral region, stage 4; L89.313 Pressure ulcer of right buttock, stage 3; E11.22 Type 2 diabetes mellitus with diabetic chronic kidney disease; D68.69 Other thrombophilia; K92.2 Gastrointestinal hemorrhage, unspecified; L89.223 Pressure ulcer of left hip, stage 3; E11.69 Type 2 diabetes mellitus with other specified complication; I12.0 Hypertensive chronic kidney disease with stage 5 chronic kidney disease or end stage renal disease; N18.6 End stage renal disease; Z99.2 Dependence on renal dialysis; K21.00 Gastro-esophageal reflux disease with esophagitis, without bleeding; E11.621 Type 2 diabetes mellitus with foot ulcer; D62 Acute posthemorrhagic anemia; M46.28 Osteomyelitis of vertebra, sacral and sacrococcygeal region; E11.40 Type 2 diabetes mellitus with diabetic neuropathy, unspecified; I69.354 Hemiplegia and hemiparesis following cerebral infarction affecting left non-dominant side; L97.419 Non-pressure chronic ulcer of right heel and midfoot with unspecified severity; L97.429 Non-pressure chronic ulcer of left heel and midfoot with unspecified severity; Z74.09 Other reduced mobility; E83.9 Disorder of mineral metabolism, unspecified; Z93.1 Gastrostomy status; L97.519 Non-pressure chronic ulcer of other part of right foot with unspecified severity; L89.226 Pressure-induced deep tissue damage of left hip; R13.10 Dysphagia, unspecified; Z20.822 Contact with and (suspected) exposure to COVID-19; Z74.01 Bed confinement status; Z79.4 Long term (current) use of insulin
CPT/HCPCS: 31720; 36410; 36415; 71045-TC; 80048-TC; 80053-TC; 80076-TC; 80202-TC; 82272-TC; 82962-TC; 83605-TC; 83735-TC; 84100-TC; 84484-TC; 85025-TC; 85730-TC; 86850-TC; 87040-TC; 87070-TC; 87081-TC; 87086-TC; 87186-TC; 90935-TC; 94002-TC; 94003-TC; 94760-TC; 94761-TC; 94762-TC; 94799-TC; A4216; A4217; A6253; A6403; A7526; C1751; C9113; G0378; J1815; J2185; J3370; J7050; J7060; P9047; U0003

== ENCOUNTER 2021-01-06 17:31 | Inpatient (IN) | payer MEDICAID ==
[~2021-01-06] VITALS: Ht 165.1 cm; Wt 76.7 kg
[~2021-01-06 17:31] MED LIST changes: -ACET650S11 RC; -ACET650S26 GT; -MERO500V23 IV; -OMEP40CA13 GT; +OMEP40CA21 GT; -RXVAN XX; -Silver Sulfadiazine Cream MC; -VANC500F2 IV
--- NOTE | 2021-01-06 17:37 | NUR ---
PT [facility] FROM [facility] FOR [facility] ACCESS POSSIBLE MULFUNCTION, PER EMS PT DID FINISHED HIS DIALYSIS TODAY. STABLE VITALS NOTED. NO DISTRESS RAYON TESTER. AWAITING MD COPE.
--- NOTE | 2021-01-06 17:54 | NUR ---
DR FOFANA AT BEDSIDE FOR EVAL.
--- NOTE | 2021-01-06 18:00 | NUR ---
MOVE SHEET SUBMITTED AND CALLED FOR BED.
[2021-01-06] MEDS ORDERED: SEVE0.8P3 GT (18:09)
[2021-01-06] MEDS ORDERED: LACT1CAP61 GT (18:09)
[2021-01-06] MEDS ORDERED: MAGN24002 GT (18:09)
[2021-01-06 18:17] LABS: BASOPHILS # (AUTO) 0.1 K/uL (0.0-0.2); BASOPHILS % (AUTO) 0.7 % (0.0-2.0); EOSINOPHILS % (AUTO) 6.3 % (0.0-6.0); HEMATOCRIT 43 % (39-51); LYMPHOCYTES # (AUTO) 0.7 K/uL (0.8-4.8); LYMPHOCYTES % (AUTO) 8.9 % (20.0-44.0); MEAN CORPUSCULAR HGB CONC 32 g/dl (31.0-36.0); MEAN CORPUSCULAR VOLUME 87 fL (80-96); MONOCYTES # (AUTO) 1.1 K/uL (0.1-1.30); MONOCYTES % (AUTO) 12.7 % (2.0-12.0); NEUTROPHILS # (AUTO) 5.9 K/uL (1.8-8.9); NEUTROPHILS % (AUTO) 71.4 % (43.0-81.0); PLATELET COUNT (AUTO) 122 K/uL (150-450); RED BLOOD CELL COUNT(AUTO) 4.99 MIL/uL (4.5-6.0); WHITE BLOOD COUNT (AUTO) 8.3 K/uL (4.3-11.0)
--- NOTE | 2021-01-06 18:17 | NUR ---
RT NOTE, PT. 60 Y OLD , REC. IN ER @ 1740 TRACH PORT[place] # 8 CUFFED, PLACED ON VENT WITH NOTED VENT SETTINGS, (PER ER MD) ALARMS ARE SET AND FUNCTIONAL, B/S RALES BILATERALLY AND SUCTIONED FOR MINIMAL AMT WHITE SECRETIONS, EQUAL CHEST RISE NOTED, AMBU BAG AT THE BEDSIDE. VENT PLUGGED INTO RED OUTLET. CONTINUE TO MONITOR. PT. STABLE REPORT WILL PASS TO PM SHIFT Addendum: 01/06/21 at 1818 by SHIRLEY REID RT Amended: Links added.
[2021-01-06 18:25] LABS: CALCIUM, SERUM 8.5 mg/dL (8.5-10.1); CREATININE 5.2 mg/dL (0.6-1.3); POTASSIUM 4.9 mmol/L (3.5-5.1)
[2021-01-06] MEDS ORDERED: ALTEPLASE CATHFLO 2 MG/VIAL XX ONE ×2 (19:30→22:00)
[2021-01-06] MEDS ORDERED: WATER FOR INJECTION,STERILE 10 ML ONE (21:35)
--- NOTE | 2021-01-06 21:53 | NUR ---
GOT BED 329
[2021-01-06] MEDS ORDERED: ALTEPLASE CATHFLO 2 MG/VIAL ONE (21:54)
--- NOTE | 2021-01-06 22:11 | NUR ---
pt was seen by anthony ravi np w/ a new order for cathflo activase 2mg per hd cath. called after hour pharmacy a verified the order. recomended dose per pharmacy: 1-2 mg per port. no to exceed 4 mg. medication given with the supervision and a second rn withness. pt remained on continus monitoring.
--- NOTE | 2021-01-06 22:40 | NUR ---
UNABLE TO RE DRAW THE CATHFLO ACTIVASE INSTRUCTED BY MELIDA SUN. ELECTRIC CLOCK MECHANIC MADE AWARE. PER HIM TO WAIT ANOTHER HALF AN HOUR AND REPEAT THE PROCEDURE.
[2021-01-06] MEDS ORDERED: BISACODYL SUPP (10 MG) 10 MG/SUPP.RECT SUPP.RECT RC PRN (23:00)
[2021-01-06] MEDS ORDERED: Z GUARD REMEDY 2 OZ OINT TP PRN (23:00)
[2021-01-06] MEDS ORDERED: ONDANSETRON HCL/PF 4 MG/2 ML VIAL IVP PRN (23:00)
[2021-01-06] MEDS ORDERED: ACETAMINOPHEN 650 MG/20.3 ML UDC GT PRN (23:00)
--- NOTE | 2021-01-06 23:02 | NUR ---
REPORT GIVEN TO OLN ONEILL
--- NOTE | 2021-01-06 23:09 | NUR ---
CATHFLOW ACTIVASE WAS PARTIALY ASPIRATED FROM THE HD CATHETERS. 0.8ML FROM THE BLUE CATH AND 1ML FROM THE RED CATH WAS DRAWN BACK. GRETCHEN MONTEZ MADE AWARE
--- NOTE | 2021-01-06 23:16 | NUR ---
PT WAS TRANSFERRED TO 329 UNDER ACLS
[2021-01-06 23:30] VITALS: BP 139/74
[2021-01-06] MEDS ORDERED: INSULIN REGULAR, HUMAN 100 UNIT/ML 3 ML VIAL SQ PRN (23:30)
[2021-01-07] VITALS: BP 111/72
[2021-01-07] MEDS: BLOOD SUGAR DIAGNOSTIC 1 EACH STRIP IN SCH ×4 (01:06→18:05)
--- NOTE | 2021-01-07 01:53 | NUR ---
Patient arrived to unit at 2315 in stable condition accompanied by EMT, RN and RT. Patient on ventilator, has G-tube, multiple wounds as documented. No signs of pain. Admitted d/t malfunctioning IJ cath. Will have procedure in AM, NPO overnight. BLE paralyzed, LUE paralyzed, able to move RUE. RAC #18G patentt and flushed. DVT machibnes applied, tele monitor applied. Turn q2h and offload bony prominences. Wound care consult and low air loss mattress ordered. Will call facility for consents for procedure in AM.
[2021-01-07 04:00] VITALS: BP 114/78
[2021-01-07] MEDS: DEXTROSE 50%-WATER 50 ML DISP.SYRIN IV PRN ×2 (05:10→12:11)
--- NOTE | 2021-01-07 05:10 | NUR ---
MS RN NOTES Patient BG 61 patient is NPO and will be for several more hours. IV dextrose given as per PRN order. Will reasses BG levels.
[2021-01-07 06:40] LABS: BASOPHILS # (AUTO) 0.1 K/uL (0.0-0.2); BASOPHILS % (AUTO) 0.6 % (0.0-2.0); HEMATOCRIT 41 % (39-51); HEMOGLOBIN 13.4 g/dL (13.5-17.5); LYMPHOCYTES # (AUTO) 1.2 K/uL (0.8-4.8); LYMPHOCYTES % (AUTO) 13.8 % (20.0-44.0); MEAN CORPUSCULAR HGB CONC 33 g/dl (31.0-36.0); MEAN CORPUSCULAR VOLUME 87 fL (80-96); MONOCYTES # (AUTO) 1.2 K/uL (0.1-1.30); MONOCYTES % (AUTO) 12.9 % (2.0-12.0); NEUTROPHILS % (AUTO) 66.7 % (43.0-81.0); PLATELET COUNT (AUTO) 115 K/uL (150-450); RED BLOOD CELL COUNT(AUTO) 4.72 MIL/uL (4.5-6.0)
--- NOTE | 2021-01-07 06:51 | NUR ---
MS RN NOTES Patient is Alert but not oriented, only blinks and moves R hand to scratch head or withdraw from pain. Patient BS was 61 because feeding held due to NPO status for procedure in AM. IV dextrose given with effect. Follow up blood sugar 111. Called daughter who is patients decision maker, confirming that he is still full code as says in his paperwork from dialysis clinic and consent was obtained for insertion of new dialysis catheter. Scheduled for placement later today.
[2021-01-07 07:19] LABS: CALCIUM, SERUM 9.3 mg/dL (8.5-10.1); CREATININE 6.6 mg/dL (0.6-1.3); MAGNESIUM 3.2 mg/dL (1.8-2.4); PHOSPHORUS 4.7 mg/dL (2.5-4.9); POTASSIUM 4.8 mmol/L (3.5-5.1)
--- NOTE | 2021-01-07 07:25 | NUR ---
RN OPENING NOTE RECEIVED PATIENT IN BED. NON VERBAL, OPENS EYES, NODS. ON [facility] VENT WITH SETTING AC 14 TV 500 FI02 40% PEEP 5. NO SOB NOTED. NO S/S OF RESPIRATORY DISTRESS. TELE READING SHOWS SR 71. IV ACCESS ON R AC #18G, INTACT AND PATENT. LCW HD C/D/I. SAFETY MEASURES MAINTAINED. BED IN LOWEST POSITION, BRAKES LOCKED. SIDE RAILS UP X2. CALL LIGHT WITHIN REACH. WILL CONTINUE PLAN OF CARE.
--- NOTE | 2021-01-07 07:58 | NUR ---
WOUND CARE CONSULT: PT PRESENTS WITH MULTIPLE WOUNDS AND SCARS WELL SEVERELY CONTRACTED LOWER EXTREMITIES IN WHICH FEET ARE AGAINST BUTTOCKS, PRESENT ON ADMISSION. DR MARIEE AND DR LAM NOTIFIED OF SURGICAL AND DPM CONSULT REQUESTS. RECOMMENDATIONS MADE FOR SKIN PROTECTION. DISCUSSED WITH NURSING STAFF. PT IS ON ABELARDO ISOFLEX LOW AIRLOSS BED. MD IN AGREEMENT WITH PLAN OF CARE.
[2021-01-07 08:00] VITALS: BP 120/73
[2021-01-07] MEDS: HEPARIN SODIUM, PORCINE 5000 UNITS/1 ML VIAL SQ SCH ×2 (08:52→21:00)
[2021-01-07] MEDS: ATENOLOL 25 MG TABLET GT SCH (08:55)
[2021-01-07] MEDS: ACIDOPHILUS/BULGARICUS 1 EACH TAB.CHEW GT SCH ×2 (08:55→22:32)
[2021-01-07] MEDS: PANTOPRAZOLE 40 MG/PACK PACK GT SCH (08:55)
[2021-01-07] MEDS: CHLORHEXIDINE GLUCONATE 15 ML UDC MM SCH ×2 (08:56→22:32)
[2021-01-07] MEDS: SEVELAMER CARBONATE 800 MG POWD.PACK GT SCH ×3 (08:56→16:19)
[2021-01-07] MEDS: ZINC SULFATE 220 MG CAPSULE GT SCH (08:56)
--- NOTE | 2021-01-07 08:56 | NUR ---
RN NOTE HELD HEPARIN. PATIENT IS SCHEDULED FOR PERMA CATH INSERTION THIS AFTERNOON.
[2021-01-07] MEDS ORDERED: FIXODENT DENTURE ADHESIVE TUBE MM SCH (09:00)
[2021-01-07] MEDS ORDERED: PREVACID (NF) 30 MG TAB GT SCH (09:00)
[2021-01-07] MEDS ORDERED: COLLAGENASE 30 GM TUBE TP SCH (09:00)
[2021-01-07] MEDS ORDERED: Medication Not On Formulary EA (Lactobacillus Acidophilus (Acidophilus) 1 EACH) GT SCH (09:00)
--- NOTE | 2021-01-07 09:45 | NUR ---
RN NOTE OBTAINED TELEPHONE CONSENT FROM [facility] (DTR) FOR ACUTE HEMODIALYSIS. GABRIELLE FORREST, SIGNED A WITNESS.
--- NOTE | 2021-01-07 11:57 | NUR ---
RN NOTE BLOOD SUGAR OF 54. RECHECKED IT AGAIN, RESULT IS 68. INFORMED DR. WATSON AND ORDER DEXTROSE 50 IVP ONCE. ORDER CARRIED OUT.
[2021-01-07 12:00] VITALS: BP 131/72
[2021-01-07] MEDS ORDERED: DEXTROSE 50%-WATER 50 ML DISP.SYRIN IVP ONE (12:00)
--- NOTE | 2021-01-07 12:59 | NUR ---
RN NOTE REASSESSED GLUCOSE AFTER AN HOUR, RESULT IS 113. WILL CONTINUE TO MONITOR THROUGHOUT THE SHIFT.
[2021-01-07] MEDS ORDERED: ANESTHESIA TRAY IN PYXIS 1 EA TRAY MC ONE (15:13)
--- NOTE | 2021-01-07 15:55 | NUR ---
RN NOTE OBTAINED TELEPHONE CONSENT FROM [facility] ([facility]) FOR SERIAL EXCISIONAL WOUND DEBRIDEMENT OF BOTH LOWER EXTREMITIES. NELLI FORREST, SIGNED A WITNESS.
[2021-01-07 16:00] VITALS: BP 102/63
[2021-01-07] MEDS ORDERED: LIDOCAINE 1% INJ 50 ML MDV IJ ONE (16:30)
[2021-01-07] MEDS ORDERED: HEPARIN SODIUM, PORCINE 1,000 UNIT/ML VIAL ONE (16:30)
--- NOTE | 2021-01-07 19:15 | NUR ---
TELE/RN OPENING NOTE RECEIVED PATIENT RESTING IN BED. NON-VERBAL AT BASELINE. ABLE TO NOD HEAD. NO S/SX OF PAIN NOTED. CONTINUES ON MECHANICAL VENT WITH NO S/SX OF RESPIRATORY DISTRESS NOTED. TOLERATING SETTINGS WELL. CONTINUES ON NPO STATUS FOR PLANNED PROCEDURE TODAY. IV ACCESS TO RIGHT AC #18G INTACT, PATENT AND SALINE LOCKED. CALL LIGHT WITHIN REACH. ASPIRATION, FALL AND SAFETY PRECAUTIONS MAINTAINED. WILL CONTINUE TO MONITOR.
[2021-01-07 20:00] VITALS: BP 108/76
[2021-01-07] MEDS ORDERED: MIDAZOLAM HCL 2 MG/2ML VIAL ONE (20:16)
[2021-01-07] MEDS ORDERED: BACITRACIN OPHTH OINT 3.5 GM TUBE ONE (21:00)
--- NOTE | 2021-01-07 21:30 | NUR ---
TELE/RN NOTE PATIENT ARRIVED BACK FROM OR AT APPROX. 21:30. LEFT IJ PERMACATH IN PLACE. DRESSING IS INTACT - SMALL AMOUNT OF BLOODY DRAINAGE NOTED. PRESSURE DRESSING IN PLACE. VS: BP 108/76 HR 77 RR 17 T 98.0 O2 SAT 100% ON MECH. VENT. ORDERS FROM DR. CARTER TO RESUME ALL PRE-OP ORDERS. STAT XR OBTAINED AND TAKEN. PER DR. CARTER OK TO USE NEW IJ LINE FOR DIALYSIS. ORDERS INPUTTED AND CARRIED OUT. CONTINUES ON TELE MONITOR WHICH READS SR. FREQUENT SAFETY CHECKS MADE. ASPIRATION, FALL AND SAFETY PRECAUTIONS MAINTAINED. WILL CONTINUE TO MONITOR.
[2021-01-07] MEDS: VIT B CMPLX 3/FA/VIT C/BIOTIN 1 TAB TABLET GT SCH (22:32)
--- NOTE | 2021-01-07 22:33 | NUR ---
TELE/RN NOTE HOLDING DOSE OF HEPARIN TONIGHT D/T PATIENT POST-SURGERY FOR PLACEMENT OF IJ DIALYSIS CATHETER. SURGICAL SITE WITH SMALL AMOUNT OF BLOODY DRAINAGE. PRESSURE DRESSING INTACT. WILL CONTINUE TO MONITOR.
[2021-01-07] MEDS ORDERED: NEPRO 1,000 ML BOTTLE GT PRN (23:00)
[2021-01-08] VITALS: BP 113/77
[2021-01-08] MEDS: BLOOD SUGAR DIAGNOSTIC 1 EACH STRIP IN SCH ×4 (01:13→17:17)
[2021-01-08 04:00] VITALS: BP 124/79
--- NOTE | 2021-01-08 05:45 | NUR ---
TELE/RN NOTE PATIENT CURRENTLY RECEIVING DIALYSIS.
--- NOTE | 2021-01-08 06:00 | NUR ---
TELE/RN NOTE PATIENTS WEIGHT IS 172 THIS AM. INCREASE OF 8LBS IN 24HRS. PATIENT CURRENTLY RECEIVING DIALYSIS. WILL ENDORSE TO ONCOMING RN.
--- NOTE | 2021-01-08 06:10 | NUR ---
TELE/RN CLOSING NOTE PATIENT CURRENTLY RESTING IN BED. NON-VERBAL AT BASELINE. ABLE TO NOD HEAD. NO S/SX OF PAIN NOTED. CONTINUES ON MECHANICAL VENT WITH NO S/SX OF RESPIRATORY DISTRESS NOTED. TOLERATING SETTINGS WELL. CONTINUES ON GT TUBE FEED WITH NO RESIDUAL NOTED. IV ACCESS TO RIGHT AC #18G INTACT, PATENT AND SALINE LOCKED. PATIENT CURRENTLY RECEIVING DIALYSIS. LEFT IJ SURGICAL SITE DRESSING C/D/I. CALL LIGHT WITHIN REACH. ASPIRATION, FALL AND SAFETY PRECAUTIONS MAINTAINED. WILL ENDORSE PLAN OF CARE TO ONCOMING SHIFT.
[2021-01-08 07:21] LABS: ALBUMIN 3.2 g/dL (3.4-5.0); BILIRUBIN,TOTAL 0.4 mg/dL (0.2-1.0); CALCIUM, SERUM 9.1 mg/dL (8.5-10.1); MAGNESIUM 2.5 mg/dL (1.8-2.4); PHOSPHORUS 3.6 mg/dL (2.5-4.9); POTASSIUM 5.2 mmol/L (3.5-5.1); TOTAL PROTEIN, SERUM 7.6 g/dL (6.4-8.2)
[2021-01-08 08:00] VITALS: BP 118/66
--- NOTE | 2021-01-08 08:00 | NUR ---
RN OPENING NOTE PT IS AWAKE IN BED. ON VENT TRACH. SETTINGS CHECKED. NONVERBAL BUT ABLE TO RESPOND TO QUESTIONS. ON GREY IRON MOLDER. NO EDEMA PRESENT. ON BED REST WITH DIAPER. SKIN PROBLEMS PRESENT AND WOUND CARE ORDERED. G TUBE PRESENT WITH NEPHRO RUNNING AT 20 ML/HR. DIETY CONSULT ORDERED. IV PRESENT ON R AC 18G SL. IJ PERMACATH PRESENT. DIALYSIS DONE TODAY WITH 2.5L REMOVED. LABS AND ORDERS REVIEWED. SAFETY MEASURES IN PLACE. SIDE RAILS RAISED. BED LOWERED. CALL LIGHT WITHIN REACH. WILL CONTINUE TO MONITOR.
[2021-01-08] MEDS: SEVELAMER CARBONATE 800 MG POWD.PACK GT SCH ×3 (09:22→16:25)
[2021-01-08] MEDS: CHLORHEXIDINE GLUCONATE 15 ML UDC MM SCH ×2 (09:23→21:28)
[2021-01-08] MEDS: ACIDOPHILUS/BULGARICUS 1 EACH TAB.CHEW GT SCH ×2 (09:23→21:28)
[2021-01-08] MEDS: ATENOLOL 25 MG TABLET GT SCH (09:23)
[2021-01-08] MEDS: PANTOPRAZOLE 40 MG/PACK PACK GT SCH (09:23)
[2021-01-08] MEDS: ZINC SULFATE 220 MG CAPSULE GT SCH (09:23)
[2021-01-08] MEDS: SILVER SULFADIAZINE 50 GM JAR TP SCH (09:24)
[2021-01-08] MEDS: HEPARIN SODIUM, PORCINE 5000 UNITS/1 ML VIAL SQ SCH ×2 (09:25→21:28)
[2021-01-08 12:00] VITALS: BP 122/77
[2021-01-08 16:00] VITALS: BP 112/77
--- NOTE | 2021-01-08 17:38 | NUR ---
RN CLOSING NOTE PT IS AWAKE IN BED. ON VENT TRACH. SETTINGS CHECKED. NONVERBAL BUT ABLE TO RESPOND TO QUESTIONS. NO S/S OF PAIN OR NAUSEA PRESENT. ON TRANSFER DRIVER. NO EDEMA PRESENT. ON BED REST WITH DIAPER. SKIN PROBLEMS PRESENT AND WOUND CARE ORDERED. G TUBE PRESENT WITH NEPHRO RUNNING AT 35 ML/HR. IV PRESENT ON R AC 18G SL. IJ PERMACATH PRESENT. DIALYSIS DONE TODAY WITH 2.5L REMOVED. LABS AND ORDERS REVIEWED. ROUTINE MEDS GIVEN. SAFETY MEASURES IN PLACE. SIDE RAILS RAISED. BED LOWERED. CALL LIGHT WITHIN REACH. REPORT TO BE GIVEN TO NIGHT NURSE FOR DENNIS.
[2021-01-08 20:00] VITALS: BP 108/74
[2021-01-08] MEDS: VIT B CMPLX 3/FA/VIT C/BIOTIN 1 TAB TABLET GT SCH (21:28)
[2021-01-09] VITALS: BP_SYST 111; BP_DIAS 75; BP_DIAS 78
[2021-01-09] MEDS: BLOOD SUGAR DIAGNOSTIC 1 EACH STRIP IN SCH ×3 (00:19→11:32)
[2021-01-09] MEDS ORDERED: INSULIN REGULAR, HUMAN 100 UNIT/ML 10 ML VIAL ONE (01:47)
[2021-01-09 04:00] VITALS: BP 116/68
--- NOTE | 2021-01-09 06:34 | NUR ---
BRIM CUTTER NOTES PT AWAKE. NON VERBAL. NOT IN ANY DISTRESS. NO SOB NOTED. NO S/SX OF ANY PAIN OR DISCOMFORT AT THIS TIME. WITH SAME VENT SETTINGS. ON TELE SR @ 67 WITH IV-HL PATENT & INTACT. GTF INFUSING TOLERATED WELL. AM CARE DONE. MONITORED ACCORDINGLY. CALL LIGHT WITHIN REACH. BED IN LOWEST POSITION. SR UP X 3 WITH BED ALARM ON FOR SAFETY. WILL ENDORSE TO NEXT SHIFT.
--- NOTE | 2021-01-09 08:00 | NUR ---
tele java support engineer: initial assessment received pt in bed with eyes open, non-verbal. vent dependent. tracheostomy intact and secured at midline. on g-tube feeding, sary. well. hob elevated. no residual obtained. will continue to monitor.
[2021-01-09] MEDS: HEPARIN SODIUM, PORCINE 5000 UNITS/1 ML VIAL SQ SCH (08:36)
[2021-01-09] MEDS: CHLORHEXIDINE GLUCONATE 15 ML UDC MM SCH (08:36)
[2021-01-09 08:37] VITALS: BP 114/76
[2021-01-09] MEDS: ZINC SULFATE 220 MG CAPSULE GT SCH (08:37)
[2021-01-09] MEDS: PANTOPRAZOLE 40 MG/PACK PACK GT SCH (08:37)
[2021-01-09] MEDS: ACIDOPHILUS/BULGARICUS 1 EACH TAB.CHEW GT SCH (08:37)
[2021-01-09] MEDS: SEVELAMER CARBONATE 800 MG POWD.PACK GT SCH (08:37)
[2021-01-09] MEDS: ATENOLOL 25 MG TABLET GT SCH (08:37)
--- NOTE | 2021-01-09 09:00 | NUR ---
tele stubber: md visit seen by dr. WATSON with order to discharge back to [facility]. order acknowledged. cm to make arrangement.
--- NOTE | 2021-01-09 11:15 | NUR ---
tele venue attendant: notes masoud (osbaldo) called and informed me that pt is going back to center at [facility] at 1300. cathy (daughter) notified and made aware, spoke to her over the phone. all questions and concerns answered.
--- NOTE | 2021-01-09 11:45 | NUR ---
tele shoe cutter: notes wound tx done as ordered and photos taken and place them in chart. incontinent care of bowel rendered. kept clean and dry. good pericare rendered. pt unable to sign discharge papers due to cognitive impairment. 2 licensed staff singed all d'c papers. eta at 1300.
--- NOTE | 2021-01-09 12:25 | NUR ---
tele senior tax specialist: keren beltrán (rn) at [facility] notified and report given for continuity of care.
[2021-01-09] MEDS: SILVER SULFADIAZINE 50 GM JAR TP SCH (12:40)
--- NOTE | 2021-01-09 13:00 | NUR ---
tele network internship: notes emt and 1 r.t. here and report given to one of the crew. h/l and tele removed. vss. needs attended.
--- NOTE | 2021-01-09 13:12 | NUR ---
tele finish specialist: notes discharge to snf in stable condition accompanied by 2 emt and 1 r.t. via niko.
== END 2021-01-09 13:15 | DRG 466 ==
LOC: ER 17:40 → MED 22:11 → TELE 23:57
PROVIDERS: ADMIT Nurse Practitioner Family; ATTEND Internal Medicine
PROC: 5A1945Z Respiratory Ventilation, 24-96 Consecutive Hours (ICD-10-PCS; principal; 2021-01-06)
PROC: 02H633Z Insertion of Infusion Device into Right Atrium, Percutaneous Approach (ICD-10-PCS; 2021-01-07)
PROC: 05PY33Z Removal of Infusion Device from Upper Vein, Percutaneous Approach (ICD-10-PCS; 2021-01-07)
PROC: B518YZA Fluoroscopy of Superior Vena Cava using Other Contrast, Guidance (ICD-10-PCS; 2021-01-07)
PROC: 5A1D70Z Performance of Urinary Filtration, Intermittent, Less than 6 Hours Per Day (ICD-10-PCS; 2021-01-07)
PROC: 5A1D70Z Performance of Urinary Filtration, Intermittent, Less than 6 Hours Per Day (ICD-10-PCS; 2021-01-08)
DX: T82.41XA Breakdown (mechanical) of vascular dialysis catheter, initial encounter (principal); I12.0 Hypertensive chronic kidney disease with stage 5 chronic kidney disease or end stage renal disease; Z99.11 Dependence on respirator [ventilator] status; G93.41 Metabolic encephalopathy; G93.49 Other encephalopathy; J96.10 Chronic respiratory failure, unspecified whether with hypoxia or hypercapnia; E46 Unspecified protein-calorie malnutrition; L89.154 Pressure ulcer of sacral region, stage 4; D68.59 Other primary thrombophilia; R13.10 Dysphagia, unspecified; E11.22 Type 2 diabetes mellitus with diabetic chronic kidney disease; N18.6 End stage renal disease; Y71.2 Prosthetic and other implants, materials and accessory cardiovascular devices associated with adverse incidents; Z99.2 Dependence on renal dialysis; Y92.129 Unspecified place in nursing home as the place of occurrence of the external cause; L97.419 Non-pressure chronic ulcer of right heel and midfoot with unspecified severity; L97.429 Non-pressure chronic ulcer of left heel and midfoot with unspecified severity; M89.9 Disorder of bone, unspecified; E11.40 Type 2 diabetes mellitus with diabetic neuropathy, unspecified; E11.51 Type 2 diabetes mellitus with diabetic peripheral angiopathy without gangrene; E11.621 Type 2 diabetes mellitus with foot ulcer; I69.298 Other sequelae of other nontraumatic intracranial hemorrhage; I25.10 Atherosclerotic heart disease of native coronary artery without angina pectoris; I69.354 Hemiplegia and hemiparesis following cerebral infarction affecting left non-dominant side; Z79.4 Long term (current) use of insulin; Z93.1 Gastrostomy status; Z93.0 Tracheostomy status; K21.9 Gastro-esophageal reflux disease without esophagitis; Z20.822 Contact with and (suspected) exposure to COVID-19; Z74.01 Bed confinement status; D64.9 Anemia, unspecified; L89.329 Pressure ulcer of left buttock, unspecified stage; L89.319 Pressure ulcer of right buttock, unspecified stage; M24.562 Contracture, left knee; M24.561 Contracture, right knee
CPT/HCPCS: 31720; 36415; 71045-TC; 80048-TC; 80053-TC; 82962-TC; 83540-TC; 83735-TC; 83970; 84100-TC; 85025-TC; 87081-TC; 90935-TC; 94002-TC; 94003-TC; 94760-TC; 94762-TC; 94799-TC; 99082-TC; A6253; A6403; C1750; C1757; C1769; C1894; C9803; G0378; J0690; J1644; J1815; J2250; J2997; J3490

== ENCOUNTER 2021-01-15 14:53 | Inpatient (IN) | payer MEDICAID ==
[~2021-01-15] VITALS: Ht 177.8 cm; Wt 80.7 kg
[~2021-01-15 14:53] MED LIST changes: -AMIN30LI2 GT; -CALC667C6 GT; +LACT1CAP61 GT; +MAGN24002 GT; -NA P133E RC; -NUT.237L67 GT; +SEVE0.8P3 GT
--- NOTE | 2021-01-15 14:58 | NUR ---
ASSUME PT CARE. IN ED BED 05. [facility] FROM [facility] FOR NOTED HYPOTENSION AND TACHYCARDIA 20 MINS INTO DIALYSIS. PT'S SBP IN THE 70'S CORRECTIONAL LIEUTENANT. VENT PATIENT W/ CURRENT SETTING; AC 14 TV 500 FI02 40% PEEP 5. PLACED ON MONITOR. AWAITING MD COPE.
--- NOTE | 2021-01-15 15:11 | NUR ---
DR BAUTISTA AT BEDSIDE FOR EVAL.
--- NOTE | 2021-01-15 15:17 | NUR ---
RADIOLOGY AT BEDSIDE FOR CHEST XRAY.
[2021-01-15] MEDS ORDERED: IV NS 0.9% 500 ML BAG IV ONE (15:30)
--- NOTE | 2021-01-15 15:44 | NUR ---
IV LINE STARTED BLOOD DRAWN AND SENT TO LAB.
[2021-01-15 16:03] LABS: BASOPHILS # (AUTO) 0.1 K/uL (0.0-0.2); BASOPHILS % (AUTO) 0.3 % (0.0-2.0); EOSINOPHILS % (AUTO) 0.4 % (0.0-6.0); HEMATOCRIT 28 % (39-51); HEMOGLOBIN 8.7 g/dL (13.5-17.5); LYMPHOCYTES % (AUTO) 4.8 % (20.0-44.0); MEAN CORPUSCULAR HGB CONC 31 g/dl (31.0-36.0); MEAN CORPUSCULAR VOLUME 88 fL (80-96); MONOCYTES # (AUTO) 2.8 K/uL (0.1-1.30); MONOCYTES % (AUTO) 12.8 % (2.0-12.0); NEUTROPHILS # (AUTO) 17.6 K/uL (1.8-8.9); NEUTROPHILS % (AUTO) 81.7 % (43.0-81.0); PLATELET COUNT (AUTO) 166 K/uL (150-450); RED BLOOD CELL COUNT(AUTO) 3.16 MIL/uL (4.5-6.0); WHITE BLOOD COUNT (AUTO) 21.5 K/uL (4.3-11.0)
[2021-01-15 16:29] LABS: CALCIUM, SERUM 8.9 mg/dL (8.5-10.1); CARBON DIOXIDE 26 mmol/L (21-32); CHLORIDE 100 mmol/L (98-107); GLUCOSE 134 mg/dL (74-106); POTASSIUM 4.4 mmol/L (3.5-5.1); SODIUM SERUM 140 mmol/L (136-145)
[2021-01-15 16:30] LABS: CREATININE 7.9 mg/dL (0.6-1.3); UREA NITROGEN, BLOOD 151 mg/dL (7-18)
[2021-01-15 16:36] LABS: ALANINE AMINOTRANSFERASE 10 U/L (12-78); ALBUMIN 2.8 g/dL (3.4-5.0); ALKALINE PHOSPHATASE 150 U/L (46-116); ASPARTATE AMINOTRANSFERASE 19 U/L (15-37); BILIRUBIN,DIRECT 0.1 mg/dL (0.0-0.2); BILIRUBIN,TOTAL 0.4 mg/dL (0.2-1.0)
[2021-01-15 16:37] LABS: TOTAL PROTEIN, SERUM 6.6 g/dL (6.4-8.2)
[2021-01-15] MEDS ORDERED: VANCOMYCIN 1 GM in IV D5W 250 ML IV ONE (17:00)
[2021-01-15] MEDS ORDERED: PIPERACILLIN /TAZOBACTAM 3.375 G in IV D5W 50 ML IV ONE (17:00)
--- NOTE | 2021-01-15 19:21 | NUR ---
REPORT TO SATYA FORREST FOR DENNIS.
--- NOTE | 2021-01-15 19:32 | NUR ---
PCR SWAB SENT TO LAB
--- NOTE | 2021-01-15 20:05 | NUR ---
RIMMA 101-1
--- NOTE | 2021-01-15 20:18 | NUR ---
RN NOTES RECEIVED ER ADMISSION REPORT FROM ED,RN. ALL PERTINENT ADMISSION INFO REGARDING PT NOTED. WILL WAIT FOR PT TO BE TRANSFERRED TO UNIT AND ADDRESS NEEDS ACCORDINGLY. UTILIZATION COORDINATOR MADE AWARE.
--- NOTE | 2021-01-15 20:20 | NUR ---
REPORT CALLED TO RIMMA LON JACKSON. WILL TRANSPORT PT VIA ACLS PROTOCOL.
[2021-01-15] MEDS ORDERED: Z GUARD REMEDY 2 OZ OINT TP PRN (20:30)
[2021-01-15] MEDS ORDERED: MAG HYDROX/AL HYDROX/SIMETH 30 ML UDC PO PRN (20:30)
[2021-01-15] MEDS ORDERED: ONDANSETRON HCL/PF 4 MG/2 ML VIAL IVP PRN (20:30)
[2021-01-15] MEDS ORDERED: ENOXAPARIN SODIUM 40 MG/0.4 ML DISP.SYRIN SQ SCH (20:30)
[2021-01-15] MEDS ORDERED: MIDODRINE HCL (5MG) 5 MG TABLET GT PRN (20:30)
[2021-01-15] MEDS ORDERED: ACETAMINOPHEN 325 MG TABLET PO PRN (20:30)
[2021-01-15] MEDS ORDERED: MAGNESIUM HYDROXIDE 30 ML UDC PO PRN (20:30)
[2021-01-15] MEDS ORDERED: BISACODYL SUPP (10 MG) 10 MG/SUPP.RECT SUPP.RECT RC PRN (20:30)
[2021-01-15] MEDS ORDERED: IV NS 0.9% 1,000 ML IV PRN (20:30)
[2021-01-15] MEDS ORDERED: MAGNESIUM HYDROXIDE 30 ML UDC GT PRN (20:30)
--- NOTE | 2021-01-15 20:50 | NUR ---
RN NOTES RECEIVED PT FROM ER VIA BOOMRYELENA ACCOMPANIED BY 1 ER STAFF, 2 RTs AND TRANSFERRED TO BED VIA 2-3 PERSON ASSIST. PT IS NON VERBAL; PT ON MECHANICAL VENT; SETTINGS PRESCRIBED WITH RESPIRATIONS EVEN AND UNLABORED. COMPREHENSIVE PHYSICAL ASSESSMENT AND PATIENT CARE DONE. CALL LIGHT WITHIN REACH, SAFETY MEASURES AND ISOLATION PRECAUTION IN PLACE, WILL CONTINUE MONITOR AND ASSESS THROUGHOUT THE SHIFT. WILL CARRY OUT MD ORDERS ACCORDINGLY. TREE SPECIALIST MADE AWARE.
[2021-01-15 21:00] VITALS: BP 90/62
[2021-01-15] MEDS: ACETAMINOPHEN 325 MG TABLET MC PRN (21:40)
[2021-01-15] MEDS: HEPARIN SODIUM, PORCINE 5000 UNITS/1 ML VIAL SQ SCH (21:40)
--- NOTE | 2021-01-15 22:00 | NUR ---
RN NOTES NOTED PT HEART REATEIS ABOVE 150; SINUS TACH PER MONITOR; TYLENOL PRN GIVEN FOR PAIN. AUBRIE GARCIA INFORMED AND SECURED ORDER FOR 500ML OF NS BOLUS. LOGISTICS SERVICE REPRESENTATIVE MADE AWARE. WILL CARRY OUT ORDER REQUESTED. WILL CONTINUE TO MONITOR.
[2021-01-15] MEDS ORDERED: IV NS 0.9% 500 ML IV ONE (22:30)
[2021-01-15] MEDS: NEPRO 1,000 ML BOTTLE GT PRN (23:41)
[2021-01-16] VITALS: BP 108/57
[2021-01-16] MEDS ORDERED: Medication Not On Formulary EA (Ipratropium/Albuterol Sulfate (Duoneb 2.5-0.5 Mg/3 Ml So IH SCH
[2021-01-16] MEDS: ZOSYN IVPB 2.25 G in IV D5W 50ml IV SCH ×4 (00:13→17:04)
--- NOTE | 2021-01-16 00:28 | NUR ---
RN NOTES CALL KENNY AMADOR @ /[phone],TO CONFIRM AND VERIFY FOR PT'S CODE STATUS AND VERIFY FOR THE FEEDING RATE OF HIS TUBE FEEDING. ROUTED TO AND REQUESTED FOR CALLBACK. SAWDUST DRIER MADE AWARE.
[2021-01-16] MEDS: ALBUTEROL FS 2.5 MG/0.5 ML VIAL.NEB NEB SCH ×4 (01:30→19:30)
[2021-01-16] MEDS: IPRATROPIUM NEB FS 0.5 MG/2.5 ML AMPUL.NEB NEB SCH ×4 (01:30→19:30)
--- NOTE | 2021-01-16 01:47 | NUR ---
RT neb tx not given due to pending covid lab results
[2021-01-16 04:00] VITALS: BP 100/61
--- NOTE | 2021-01-16 04:14 | NUR ---
RN NOTES NO NOTED CHANGES IN PATIENT CONDITION AT THIS TIME; PATIENT VITALS STABLE, NO SIGNS OF ACUTE RESPIRATORY DISTRESS. AM PATIENT CARE RENDERED. INSULATION WORKER MADE AWARE. WILL CONTINUE TO MONITOR AND REASSESS FOR ANY CHANGES THROUGHOUT THE SHIFT.
--- NOTE | 2021-01-16 06:42 | NUR ---
RN CLOSING NOTE: PATIENT REMAINS IN ROOM IN NO SIGNS OF RESPIRATORY DISTRESS, PATIENT STILL ON MECH VENT WITH SETTINGS PRESCRIBED ;TOLERATING WELL SATURATING @ >95% SP02. SAFETY MEASURES IMPLEMENTED, BED IN LOWEST POSITION, LOCKED, SIDE RAILS UP, CALL LIGHT WITHIN REACH. ALL NEEDS AND ORDERS ADDRESSED DURING THE SHIFT. IV ACCESS MAINTAINED INTACT, SECURED AND FLUSHING WELL. ALL DUE MEDS GIVEN ORDERED & SCHEDULED ; PATIENT TOLERATED WELL. PATIENT KEPT CLEAN AND COMFORTABLE WITHIN THE SHIFT. PATIENT ENDORSED TO INCOMING SHIFT RN WITH STABLE VITAL SIGN AND FOR CONTINUITY OF CARE.
--- NOTE | 2021-01-16 07:00 | NUR ---
RN NOTES RECEIVED PT ON BED, VENT/TRACH DEPENDENT, TOLERATING VENT SETTING WELL, TRACH CARE DONE, O2 SAT WNL, ON TELE SR -ST , R HAND IV SITE G 22 CLEAN,DRY AND INTACT, SR UP x3, CALL LIGHT WITHIN EASY REACH, BED LOCKED AND IN LOWEST POSITION , CONTINUE TO MONITOR.
[2021-01-16 08:00] VITALS: BP 92/64
[2021-01-16 08:08] LABS: BASOPHILS # (AUTO) 0.1 K/uL (0.0-0.2); BASOPHILS % (AUTO) 0.5 % (0.0-2.0); EOSINOPHILS % (AUTO) 1.6 % (0.0-6.0); HEMATOCRIT 24 % (39-51); HEMOGLOBIN 7.7 g/dL (13.5-17.5); LYMPHOCYTES # (AUTO) 2.4 K/uL (0.8-4.8); LYMPHOCYTES % (AUTO) 12.2 % (20.0-44.0); MEAN CORPUSCULAR HGB CONC 32 g/dl (31.0-36.0); MEAN CORPUSCULAR VOLUME 89 fL (80-96); MONOCYTES # (AUTO) 2.6 K/uL (0.1-1.30); MONOCYTES % (AUTO) 12.8 % (2.0-12.0); NEUTROPHILS # (AUTO) 14.6 K/uL (1.8-8.9); NEUTROPHILS % (AUTO) 72.9 % (43.0-81.0); RED BLOOD CELL COUNT(AUTO) 2.73 MIL/uL (4.5-6.0)
[2021-01-16] MEDS: PANTOPRAZOLE 40 MG/PACK PACK GT SCH (08:43)
[2021-01-16] MEDS: SEVELAMER CARBONATE 800 MG POWD.PACK GT SCH ×3 (08:43→16:46)
[2021-01-16] MEDS: DOCUSATE SODIUM 100 MG CAPSULE PO SCH ×2 (08:44→16:46)
[2021-01-16] MEDS: THERAHONEY GEL 1.5 OZ TUBE TP SCH (08:46)
[2021-01-16] MEDS ORDERED: Medication Not On Formulary EA (Omeprazole 40 MG) GT SCH (09:00)
[2021-01-16] MEDS ORDERED: COLLAGENASE 30 GM TUBE TP SCH (09:00)
--- NOTE | 2021-01-16 09:18 | NUR ---
WOUND CARE CONSULT: REVIEWED CHART, NURSING DOCUMENTATION AND PHOTOS WHICH INDICATE MULTIPLE WOUNDS, PRESENT ON ADMISSION. DR MARIEE AND DR PRINCE NOTIFIED OF SURGICAL AND DPM CONSULT REQUESTS. FIRST STEP LOW AIRLOSS MATTRESS IS ON ORDER. DISCUSSED SKIN PROTECTION WITH NURSING STAFF. MD IN AGREEMENT WITH PLAN OF CARE.
[2021-01-16 09:19] LABS: MAGNESIUM 3.1 mg/dL (1.8-2.4); PHOSPHORUS 3.9 mg/dL (2.5-4.9); POTASSIUM 5.6 mmol/L (3.5-5.1)
[2021-01-16 09:20] LABS: CREATININE 8.9 mg/dL (0.6-1.3)
[2021-01-16 09:56] LABS: PLATELET COUNT (AUTO) 163 K/uL (150-450)
[2021-01-16] MEDS: HEPARIN SODIUM, PORCINE 5000 UNITS/1 ML VIAL SQ SCH ×2 (10:33→20:56)
--- NOTE | 2021-01-16 11:51 | NUR ---
RN NOTES PT STABLE , REPORT GIVEN TO GLENYS FORREST FOR CONTINUITY OF CARE .
[2021-01-16 13:06] VITALS: BP 92/64
[2021-01-16] MEDS: ACETAMINOPHEN 325 MG TABLET MC PRN (15:43)
--- NOTE | 2021-01-16 16:18 | NUR ---
RN NOTE PATIENT NOTED WITH TEMP 99.0, COOLING MEASURES IMPLEMENTED.
[2021-01-16 16:19] VITALS: BP 110/70
[2021-01-16] MEDS: SILVER SULFADIAZINE CREAM 25 GM TUBE TP SCH (18:00)
--- NOTE | 2021-01-16 18:27 | NUR ---
RN NOTE ORDER FOR ABDIEL ASKED MD IF OKAY TO WAIT TO APPLY TILL NEXT DRESSING CHANGE. MD STATED OKAY. WILL ENDORSE AND CONTINUE TO MONITOR
--- NOTE | 2021-01-16 18:30 | NUR ---
RN CLOSING NOTE PATIENT REMAINS IN ROOM, PATIENT IS IN NO SIGNS OF RESPIRATORY DISTRESS, PATIENT STILL ON MECH VENT WITH SETTINGS PRESCRIBED, TOLERATING WELL SATURATING @ >99% SP02. DOES NOT SHOW SIGNS OF PAIN AT THIS TIME. IV ACCESS MAINTAINED ON R UPPER ARM MIDLINE #18 AND R HAND# 22 PATIENT AND INTACT, SECURED AND FLUSHING WELL. ALL DUE MEDS GIVEN ORDERED & SCHEDULED. WOUND TREATMENT PERFORMED DURING SHIFT, PATIENT TOLERATED WELL. SAFETY MEASURES IMPLEMENTED, BED IN LOWEST POSITION, LOCKED, SIDE RAILS UP, CALL LIGHT WITHIN REACH. PATIENT KEPT CLEAN AND COMFORTABLE WITHIN THE SHIFT. WILL ENDORSE TO ONCOMING SHIFT
--- NOTE | 2021-01-16 19:30 | NUR ---
RN OPENING NOTES: RECEIVED VENT PT IN BED RESTING COMFORTABLY. PATIENT IN NO S/SX OF ACUTE DISTRESS AT THIS TIME. NO SOB NOTED. PATIENT'S BREATHING IS EVEN AND UNLABORED. PATIENT ON MECHANICAL VENT; SETTINGS PRESCRIBED; PT TOLERATED WELL. AMBU BAG AT BED SIDE ALARMS SET PER PROTOCOL AND AUDIBLE. VENT PLUGGED IN TO RED OUTLET. PATIENT ON TELE MONITORING READING SINUS RHYTHM HR IS @90s AT THE TIME OF RECEIVED. PATIENT ON TUBE FEEDING DIET; TOLERATES WELL. WITH G TUBE FLUSHING AND PATENT; SITE CLEAN DRY AND INTACT; NO RESIDUAL NOTED; CONNECTED TO GTUBE FEEDING OF NEPRO RECEIVED @40CC/HR (GOAL @70CC/HR);TOLERATES WELL. NOTED IV SITE @ R HAND #22 AND R UA MIDLINE #18; PATENT, INTACT AND FLUSHING WELL; NO S/S OF INFECTION OR INFILTRATION. PT ALSO HAS L IJ HD CATH SECURED AND INTACT NO SIGNS OF INFECTION. SAFETY MEASURES HAVE BEEN PROVIDED AND IMPLEMENTED. PATIENT BED ALARM IS ON. HEAD OF BED ELEVATED. BED IS LOCKED, IN LOWEST POSITION AND SIDE RAILS UP. CALL LIGHT WITHIN REACH OF THE PATIENT. APPLICABLE ISOLATION PRECAUTIONS IN PLACE. WILL CONTINUE TO MONITOR AND REASSESS FOR ANY CHANGES AND WILL CARRY OUT ANY ONGOING AND ACTIVE MD ORDER.
[2021-01-16 20:00] VITALS: BP 94/59
--- NOTE | 2021-01-16 21:40 | NUR ---
RT HHN TREATMENT WAS NOT GIVEN DUE TO PENDING COVID RESULTS.R Addendum: 01/17/21 at 0136 by SOHAIL BAUTISTA RT Amended: Links added.
--- NOTE | 2021-01-16 23:00 | NUR ---
RN NOTES NO CHANGE IN PATIENT CONDITION AT THIS TIME PATIENT VITALS STABLE, NO SIGNS OF ACUTE RESPIRATORY DISTRESS. UNDERWEAR CUTTER MADE AWARE. WILL CONTINUE TO MONITOR AND REASSESS FOR ANY CHANGES THROUGHOUT THE SHIFT.
[2021-01-17] VITALS (7 sets, daily range): BP systolic 80–107; BP diastolic 50–67
[2021-01-17] MEDS: ZOSYN IVPB 2.25 G in IV D5W 50ml IV SCH ×5 (00:04→23:28)
[2021-01-17] MEDS: ALBUTEROL FS 2.5 MG/0.5 ML VIAL.NEB NEB SCH ×4 (01:30→20:12)
[2021-01-17] MEDS: IPRATROPIUM NEB FS 0.5 MG/2.5 ML AMPUL.NEB NEB SCH ×4 (01:30→20:12)
--- NOTE | 2021-01-17 04:00 | NUR ---
RN NOTES NO NOTED CHANGES IN PATIENT CONDITION AT THIS TIME; PATIENT VITALS STABLE, NO SIGNS OF ACUTE RESPIRATORY DISTRESS. AM PATIENT CARE RENDERED. PIPE STEM ALIGNER MADE AWARE. WILL CONTINUE TO MONITOR AND REASSESS FOR ANY CHANGES THROUGHOUT THE SHIFT.
--- NOTE | 2021-01-17 07:30 | NUR ---
TD RN OPENING NOTES: RECEIVED PT IN BED RESTING COMFORTABLY. PATIENT IN NO S/SX OF ACUTE DISTRESS AT THIS TIME. NO SOB NOTED. PATIENT'S BREATHING IS EVEN AND UNLABORED. PATIENT WITH PORTEX 8 TRACH TO MECHANICAL VENT; SETTINGS ORDERED; PT TOLERATED WELL. AMBU BAG AT BED SIDE ALARMS SET PER PROTOCOL AND AUDIBLE. VENT PLUGGED IN TO RED OUTLET. PATIENT ON TELE MONITORING READING SINUS RHYTHM HR IS @90s AT THE TIME OF RECEIVED. PATIENT ON TUBE FEEDING DIET; TOLERATES WELL. WITH G TUBE FLUSHING AND PATENT; SITE CLEAN DRY AND INTACT; NO RESIDUAL NOTED; ONGOING NEPRO AT 50CC/HR (GOAL @70CC/HR); NOTED IV SITE @ R HAND #22 AND R UA MIDLINE #18; PATENT, INTACT AND FLUSHING WELL; NO S/S OF INFECTION OR INFILTRATION. PT ALSO HAS L IJ HD CATH SECURED AND INTACT NO SIGNS OF INFECTION. SAFETY MEASURES HAVE BEEN PROVIDED AND IMPLEMENTED. PATIENT BED ALARM IS ON. HEAD OF BED ELEVATED. BED IS LOCKED, IN LOWEST POSITION AND SIDE RAILS UP. CALL LIGHT WITHIN REACH OF THE PATIENT. APPLICABLE ISOLATION PRECAUTIONS IN PLACE. WILL CONTINUE TO MONITOR AND REASSESS FOR ANY CHANGES AND WILL CARRY OUT ANY ONGOING AND ACTIVE MD ORDER.
--- NOTE | 2021-01-17 08:11 | NUR ---
HHN TX NOT GIVEN DUE TO PENDING COVID RESULTS. NURSE AWARE. Addendum: 01/17/21 at 0812 by MAY CONNOLLY RT Amended: Links added.
[2021-01-17] MEDS: PANTOPRAZOLE 40 MG/PACK PACK GT SCH (08:19)
[2021-01-17] MEDS: SEVELAMER CARBONATE 800 MG POWD.PACK GT SCH ×3 (08:19→17:02)
[2021-01-17] MEDS: SILVER SULFADIAZINE CREAM 25 GM TUBE TP SCH (08:19)
[2021-01-17] MEDS: DOCUSATE SODIUM 100 MG CAPSULE PO SCH ×2 (08:19→17:02)
[2021-01-17] MEDS: THERAHONEY GEL 1.5 OZ TUBE TP SCH (08:19)
[2021-01-17] MEDS: HEPARIN SODIUM, PORCINE 5000 UNITS/1 ML VIAL SQ SCH ×2 (08:22→21:22)
--- NOTE | 2021-01-17 09:30 | NUR ---
INDUSTRIAL MACHINE SYSTEM TECHNICIAN NOTES DUE MEDS GIVEN
[2021-01-17 11:37] LABS: ALBUMIN 2.5 g/dL (3.4-5.0); BILIRUBIN,TOTAL 0.4 mg/dL (0.2-1.0); CALCIUM, SERUM 9.2 mg/dL (8.5-10.1); POTASSIUM 5.8 mmol/L (3.5-5.1); TOTAL PROTEIN, SERUM 6.6 g/dL (6.4-8.2)
[2021-01-17 11:41] LABS: CREATININE 10.9 mg/dL (0.6-1.3)
[2021-01-17 11:53] LABS: BASOPHILS % (AUTO) 0.3 % (0.0-2.0); EOSINOPHILS % (AUTO) 3.2 % (0.0-6.0); LYMPHOCYTES # (AUTO) 1.8 K/uL (0.8-4.8); LYMPHOCYTES % (AUTO) 13.4 % (20.0-44.0); MEAN CORPUSCULAR HGB CONC 33 g/dl (31.0-36.0); MEAN CORPUSCULAR VOLUME 88 fL (80-96); MONOCYTES # (AUTO) 1.5 K/uL (0.1-1.30); MONOCYTES % (AUTO) 11.4 % (2.0-12.0); NEUTROPHILS # (AUTO) 9.5 K/uL (1.8-8.9); NEUTROPHILS % (AUTO) 71.7 % (43.0-81.0); PLATELET COUNT (AUTO) 175 K/uL (150-450); RED BLOOD CELL COUNT(AUTO) 2.28 MIL/uL (4.5-6.0); WHITE BLOOD COUNT (AUTO) 13.3 K/uL (4.3-11.0)
--- NOTE | 2021-01-17 11:55 | NUR ---
RN NOTES HEMOGLOBIN 6.5 [address] RELAY[address] TO [address] GORDON.
[2021-01-17 11:56] LABS: HEMATOCRIT 20 % (39-51)
[2021-01-17 11:57] LABS: HEMOGLOBIN 6.5 g/dL (13.5-17.5)
[2021-01-17] MEDS: NEPRO 1,000 ML BOTTLE GT PRN (12:30)
[2021-01-17 12:48] LABS: BAND % (MANUAL) 1 % (0.0-5.0); EOSINOPHILS % (MANUAL) 4 % (0-4); LYMPHOCYTES % (MANUAL) 15 % (16-48); MONOCYTES % (MANUAL) 10 % (0-11.0); NEUTROPHILS % (MANUAL) 70 (42-76)
--- NOTE | 2021-01-17 13:35 | NUR ---
HHN TX NOT GIVEN DUE TO PENDING COVID TEST RESULTS. NURSE AWARE. Addendum: 01/17/21 at 1336 by MAY CONNOLLY RT Amended: Links added.
--- NOTE | 2021-01-17 15:41 | NUR ---
RN NOTES BILL HD NURSE AT BEDSIDE. 1 UNIT PRBC GIVEN WITH HD. NO REACTIONS NOTED.
--- NOTE | 2021-01-17 17:02 | NUR ---
RECEIVED PATIENT ON VENT SETTINGS OF AC 14, VT 500, FIO2 40%, PEEP 5. SATURATIONS AT 100%. AIRWAY PATENT AND SECURE. HAS A TRACH PORTEX 8 CUFFED. Q6 HHN TX NOT GIVEN DUE TO PENDING COVID RESULTS. HAS SMALL TO MODERATE AMOUNT OF THICK, YELLOW SECRETIONS. AMBU BAG AT THE BEDSIDE. VENT PLUGGED INTO RED OUTLET. ALARMS SET AND AUDIBLE. EMERGENCY TRACH AT THE BEDSIDE.
[2021-01-17] MEDS ORDERED: VANCOMYCIN 1 GM in IV D5W 250 ML IV ONE (18:00)
--- NOTE | 2021-01-17 18:34 | NUR ---
RN CLOSING NOTE: PATIENT RESTING IN ROOM, NO SIGNS OF RESPIRATORY DISTRESS, REMAIN ON MECH VENT WITH SETTINGS PRESCRIBED ;TOLERATING WELL SATURATING @ >98% TO 100% SP02. SAFETY MEASURES IMPLEMENTED, BED IN LOWEST POSITION, LOCKED, SIDE RAILS UP, CALL LIGHT WITHIN REACH. ALL NEEDS AND ORDERS ADDRESSED DURING THE SHIFT. IV ACCESS MAINTAINED INTACT, SECURED AND FLUSHING WELL. ALL DUE MEDS GIVEN ORDERED & SCHEDULED ; PATIENT TOLERATED WELL. PATIENT KEPT CLEAN AND COMFORTABLE WITHIN THE SHIFT. TURNED AND REPOSITIONED Q 2 HOURS. PM CARE DONE. PATIENT ENDORSED TO INCOMING SHIFT RN WITH STABLE VITAL SIGN AND FOR CONTINUITY OF CARE. HEMODIALYSIS COMPLETED TODAY WITH 1 LITER OUTPUT.
[2021-01-17] MEDS ORDERED: EPOETIN ALFA (20,000 UNIT) 20,000 UNIT/ML VIAL IV ONE (19:30)
--- NOTE | 2021-01-17 20:55 | NUR ---
MED NOTE: EPOGEN 20,000 UNITS IV UNAVAILABLE IN THE NIGHT LOCKER. WILL ENDORSE TO AM SHIFT.
[2021-01-18] VITALS: BP 108/62
[2021-01-18] MEDS: IPRATROPIUM NEB FS 0.5 MG/2.5 ML AMPUL.NEB NEB SCH ×4 (01:36→20:03)
[2021-01-18] MEDS: ALBUTEROL FS 2.5 MG/0.5 ML VIAL.NEB NEB SCH ×4 (01:36→20:03)
[2021-01-18 04:00] VITALS: BP 91/53
[2021-01-18] MEDS: ZOSYN IVPB 2.25 G in IV D5W 50ml IV SCH ×4 (05:01→23:45)
[2021-01-18] MEDS ORDERED: LIDOCAINE 2% JEL UROJET 10 ML MM ONE (05:35)
--- NOTE | 2021-01-18 07:42 | NUR ---
RT Pt received trached on mechanical ventilation with noted settings. Vent alarms are set and audible, vent is plugged into red outlet, BVM and spare trach by bedside. HHN tx given with no adverse reactions. No SOB or respiratory distress noted. Addendum: 01/18/21 at 1435 by TYRESE ROWE RT Amended: Links added.
[2021-01-18 08:12] LABS: BASOPHILS % (AUTO) 0.2 % (0.0-2.0); EOSINOPHILS % (AUTO) 2.2 % (0.0-6.0); HEMATOCRIT 22 % (39-51); HEMOGLOBIN 7.1 g/dL (13.5-17.5); LYMPHOCYTES # (AUTO) 1.2 K/uL (0.8-4.8); LYMPHOCYTES % (AUTO) 9.2 % (20.0-44.0); MEAN CORPUSCULAR HGB CONC 33 g/dl (31.0-36.0); MEAN CORPUSCULAR VOLUME 88 fL (80-96); MONOCYTES # (AUTO) 1.9 K/uL (0.1-1.30); MONOCYTES % (AUTO) 14.4 % (2.0-12.0); NEUTROPHILS # (AUTO) 9.9 K/uL (1.8-8.9); PLATELET COUNT (AUTO) 144 K/uL (150-450); WHITE BLOOD COUNT (AUTO) 13.4 K/uL (4.3-11.0)
[2021-01-18 08:41] VITALS: BP 105/69
[2021-01-18] MEDS: HEPARIN SODIUM, PORCINE 5000 UNITS/1 ML VIAL SQ SCH ×2 (09:00→21:07)
[2021-01-18] MEDS: SEVELAMER CARBONATE 800 MG POWD.PACK GT SCH ×3 (09:01→17:31)
[2021-01-18] MEDS: PANTOPRAZOLE 40 MG/PACK PACK GT SCH (09:01)
[2021-01-18] MEDS: DOCUSATE SODIUM 100 MG CAPSULE PO SCH ×2 (09:01→17:31)
[2021-01-18] MEDS: SILVER SULFADIAZINE CREAM 25 GM TUBE TP SCH (09:06)
[2021-01-18] MEDS: THERAHONEY GEL 1.5 OZ TUBE TP SCH (09:07)
[2021-01-18 09:28] LABS: POTASSIUM 4.7 mmol/L (3.5-5.1)
[2021-01-18] MEDS: NEPRO 1,000 ML BOTTLE GT PRN (13:58)
[2021-01-18 16:00] VITALS: BP 101/60
--- NOTE | 2021-01-18 19:30 | NUR ---
RN NOTE RECEIVED PATIENT IN BED RESTING OBTUNDED,CONTRACTED NON VERBAL ON MECHANICAL VENT SETTING TRACH PORTEX #8 AC 14 TV 500 FIO2:40 PEEP 5 O2:98% TACHYCARDIA 104 HEAD OF THE BED ELEVATED,IV SITE IS ON RIGHT UPPER ARM MIDLINE AND RIGHT UPPER CHEST HD CATH,AND RIGHT HAND INTACT PATENT SAFETY MEASURE IMPLEMENT BED IN LOW POSITION AND LOCKED,INCONTINENT TO BOWEL/BLADDER CONTINUE TO MONITOR
[2021-01-18 20:00] VITALS: BP 103/69
[2021-01-19] VITALS (7 sets, daily range): BP systolic 100–123; BP diastolic 64–75
[2021-01-19] MEDS: ALBUTEROL FS 2.5 MG/0.5 ML VIAL.NEB NEB SCH ×4 (01:10→19:05)
[2021-01-19] MEDS: IPRATROPIUM NEB FS 0.5 MG/2.5 ML AMPUL.NEB NEB SCH ×4 (01:10→19:05)
[2021-01-19] MEDS: ZOSYN IVPB 2.25 G in IV D5W 50ml IV SCH ×3 (05:03→17:18)
[2021-01-19 06:17] LABS: BASOPHILS % (AUTO) 0.2 % (0.0-2.0); EOSINOPHILS % (AUTO) 2.3 % (0.0-6.0); HEMATOCRIT 22 % (39-51); HEMOGLOBIN 7.3 g/dL (13.5-17.5); LYMPHOCYTES # (AUTO) 1.6 K/uL (0.8-4.8); LYMPHOCYTES % (AUTO) 11.8 % (20.0-44.0); MEAN CORPUSCULAR HGB CONC 33 g/dl (31.0-36.0); MEAN CORPUSCULAR VOLUME 87 fL (80-96); MONOCYTES % (AUTO) 14.2 % (2.0-12.0); NEUTROPHILS # (AUTO) 9.9 K/uL (1.8-8.9); NEUTROPHILS % (AUTO) 71.5 % (43.0-81.0); PLATELET COUNT (AUTO) 164 K/uL (150-450); RED BLOOD CELL COUNT(AUTO) 2.55 MIL/uL (4.5-6.0); WHITE BLOOD COUNT (AUTO) 13.9 K/uL (4.3-11.0)
[2021-01-19 06:25] LABS: CALCIUM, SERUM 9.2 mg/dL (8.5-10.1); POTASSIUM 5.1 mmol/L (3.5-5.1)
[2021-01-19 06:47] LABS: CREATININE 9.1 mg/dL (0.6-1.3)
--- NOTE | 2021-01-19 06:55 | NUR ---
RN NOTE PATIENT REMAINS ON OBTUNDED CONTRACTED ON MECHANICAL VENT,ON G-TUBE FEEDING NO RESIDUAL NOTED,HEAD OF THE BED ELEVATED NO SOB NOT ACUTE DISTRESS NOTED,ALL DUE MEDS GIVEN MD ORDERED,KEPT CLEAN AND DRY ALL THE TIME,KEPT COMFORTABLE,ALL NEEDS MET,ENDORSE NEXT COMING SHIFT FOR CONTINUATION OF CARE.
--- NOTE | 2021-01-19 07:30 | NUR ---
RN OPENING NOTES RECEIVED PT IN BED, NO S/SX OF ACUTE DISTRESS AT THIS TIME, TRACH TO MECHANICAL VENT; SETTINGS ORDERED. PT TOLERATED WELL. PATIENT ON TELE MONITORING READING SINUS RHYTHM. GT PATENT, IN PLACE WITH ONGOING FEEDING. IV SITE @ R HAND #22 AND R UA MIDLINE #18; PATENT, INTACT AND FLUSHING WELL; NO S/S OF INFECTION OR INFILTRATION. L IJ HD CATH INTACT NO SIGNS OF INFECTION. SAFETY MEASURES IMPLEMENTED, BED ALARM IS ON, LOCKED BED IN LOWEST POSITION AND SIDE RAILS UP. CALL LIGHT WITHIN REACH. SCHEDULED FOR HEMODIALYSIS TODAY..
[2021-01-19] MEDS: HEPARIN SODIUM, PORCINE 5000 UNITS/1 ML VIAL SQ SCH ×2 (08:21→21:18)
[2021-01-19] MEDS: DOCUSATE SODIUM 100 MG CAPSULE PO SCH ×2 (08:23→17:18)
[2021-01-19] MEDS: SEVELAMER CARBONATE 800 MG POWD.PACK GT SCH ×3 (08:23→17:18)
[2021-01-19] MEDS: PANTOPRAZOLE 40 MG/PACK PACK GT SCH (08:23)
[2021-01-19] MEDS: SILVER SULFADIAZINE CREAM 25 GM TUBE TP SCH (09:24)
[2021-01-19] MEDS: THERAHONEY GEL 1.5 OZ TUBE TP SCH (09:25)
--- NOTE | 2021-01-19 09:30 | NUR ---
RN NOTES DUE MEDS GIVEN.
--- NOTE | 2021-01-19 10:29 | NUR ---
LON NOTES HD COMPLETED WITH 1 LITER OUT Addendum: 01/19/21 at 1908 by LUCILA PATEL RN ADDENDUM SILVERIO POST HD NOT GIVEN DUE TO ELEVATED LEVEL. SILVERIO FELIZ 25
--- NOTE | 2021-01-19 19:12 | NUR ---
RN CLOSING NOTES PATIENT ALERT TO VERBAL AND TACTILE STIMULI. NO SIGNS OF RESPIRATORY DISTRESS, REMAIN ON MECH VENT WITH SETTINGS PRESCRIBED ;TOLERATING WELL SATURATING @ >98% TO 100% SP02. HEMODIALYSIS DONE TODAY 1 LITER OUTPUT, NO BM NOR URINE OUTPUT. WOUND CARE RENDERED. BED BATH GIVEN AND LINEN CHANGE WITH ASSISTANCE OF VP SALES. REPOSITIONED Q2H AND NEEDED, OFFLOADED HEELS. VANCO RANDOM LEVEL ABOVE PARAMETERS, VANCO DOSE HELD PER PX. WILL HAVE ANOTHER LEVEL IN NEXT HD DAY. SAFETY MEASURES IMPLEMENTED, BED IN LOWEST POSITION, LOCKED, SIDE RAILS UP, CALL LIGHT WITHIN REACH. ALL NEEDS AND ORDERS ADDRESSED DURING THE SHIFT.
--- NOTE | 2021-01-19 20:00 | NUR ---
INTERNET MERCHANT NOTE PT IN BED OBTUNDED. ON VENT/TRACH TOLERATING THE SETTINGS. NO DISTRESS OR DISCOMFORT NOTED. NO S/S OF PAIN NOTED. GTF NEPRO INFUSING AT 70 ML/HR, 0 ML RESIDUAL NOTED. ALEX MIDLINE INTACT AND PATENT, TKO. RT HAND SL #22 INTACT AND PATENT. JOAQUIN WITH HD CATH INTACT. ON TELE MONITOR ST HR 117. SIDE RAILS UP X 3 AND CALL LIGHT WITHIN REACH. KEPT HIM DRY AND CLEAN. REPOSITION HIM FOR SKIN MANAGEMENT AND WILL DO Q2H. CALL LIGHT WITHIN REACH. WILL MAKE FREQUENT ROUNDING. VSS. CONTINUE TO MONITOR HIM.
[2021-01-19] MEDS: NEPRO 1,000 ML BOTTLE GT PRN (21:19)
--- NOTE | 2021-01-19 22:46 | NUR ---
KID CLUB ATTENDANT NOTE PT HR KEPT ON GOING UP 160 PLUS AND DROPS BACK TO 140'S, CLAUDIA GODINEZ INFORMED AND RECEIVED NEW ORDER, ORDER NOTED AND CARRIED OUT.
--- NOTE | 2021-01-19 22:58 | NUR ---
COMPOSITE MECHANIC NOTE MORPHINE SULFATE 1 MG IVP GIVEN. HR CAME DOWN TO 122. CLAUDIA GODINEZ ALSO INFORMED. NO FUTHER NEW ORDER GIVEN. .
[2021-01-19] MEDS ORDERED: IPRATROPIUM BROMIDE 14 GM INHALER (or 12.9 GM) IH PRN (23:00)
[2021-01-19] MEDS ORDERED: MORPHINE SULFATE INJ 2 MG/ML DISP.SYRIN IV PRN (23:00)
[2021-01-19] MEDS ORDERED: ALBUTEROL FS 2.5 MG/0.5 ML VIAL.NEB NEB PRN (23:00)
[2021-01-20] VITALS (9 sets, daily range): BP systolic 93–142; BP diastolic 47–82
[2021-01-20] MEDS: ZOSYN IVPB 2.25 G in IV D5W 50ml IV SCH ×2 (00:48→05:58)
[2021-01-20] MEDS: ALBUTEROL FS 2.5 MG/0.5 ML VIAL.NEB NEB SCH ×4 (01:12→19:30)
[2021-01-20] MEDS: IPRATROPIUM NEB FS 0.5 MG/2.5 ML AMPUL.NEB NEB SCH ×4 (01:12→19:30)
--- NOTE | 2021-01-20 06:34 | NUR ---
NYLON MACHINE OPERATOR NOTE PT IN BED IN STABLE CONDITION. NO DISTRESS OR DISCOMFORT NOTED. NO S/S OF PAIN NOTED. ON TELE ST 115. GTF INFUSING WELL, NO RESIDUAL NOTED. KEPT HIM DRY AND CLEAN ALL NEEDS ATTENDED. REPOSITION HIM Q2H, WILL ENDORSE TO DAY SHIFT NURSE FOR CONTINUE TO CARE.
[2021-01-20 06:50] LABS: BASOPHILS % (AUTO) 0.3 % (0.0-2.0); EOSINOPHILS % (AUTO) 3.9 % (0.0-6.0); LYMPHOCYTES # (AUTO) 1.1 K/uL (0.8-4.8); LYMPHOCYTES % (AUTO) 9.2 % (20.0-44.0); MEAN CORPUSCULAR HGB CONC 33 g/dl (31.0-36.0); MEAN CORPUSCULAR VOLUME 88 fL (80-96); MONOCYTES # (AUTO) 1.7 K/uL (0.1-1.30); MONOCYTES % (AUTO) 13.5 % (2.0-12.0); NEUTROPHILS % (AUTO) 73.1 % (43.0-81.0); PLATELET COUNT (AUTO) 169 K/uL (150-450); RED BLOOD CELL COUNT(AUTO) 2.13 MIL/uL (4.5-6.0); WHITE BLOOD COUNT (AUTO) 12.3 K/uL (4.3-11.0)
[2021-01-20 07:06] LABS: HEMOGLOBIN 6.1 g/dL (13.5-17.5)
[2021-01-20 07:07] LABS: HEMATOCRIT 19 % (39-51)
--- NOTE | 2021-01-20 07:16 | NUR ---
LEAD SUPPLY WORKER NOTE [facility] CALLED AND INFORMED ME THAT H/H 6.07/15, INFORMED MD, WAITING FOR THE ORDERS. ENDORSE TO DAY SHIFT NURSE TO FOLLOW UP.
[2021-01-20 07:46] LABS: CALCIUM, SERUM 8.9 mg/dL (8.5-10.1); CREATININE 7.2 mg/dL (0.6-1.3); POTASSIUM 4.5 mmol/L (3.5-5.1)
[2021-01-20] MEDS: SILVER SULFADIAZINE CREAM 25 GM TUBE TP SCH (09:00)
[2021-01-20] MEDS: HEPARIN SODIUM, PORCINE 5000 UNITS/1 ML VIAL SQ SCH (09:00)
[2021-01-20] MEDS: THERAHONEY GEL 1.5 OZ TUBE TP SCH (09:00)
[2021-01-20 10:34] LABS: EOSINOPHILS % (MANUAL) 4 % (0-4); LYMPHOCYTES % (MANUAL) 10 % (16-48); MONOCYTES % (MANUAL) 13 % (0-11.0); NEUTROPHILS % (MANUAL) 73 (42-76)
[2021-01-20] MEDS: SEVELAMER CARBONATE 800 MG POWD.PACK GT SCH ×3 (11:04→16:54)
[2021-01-20] MEDS: PANTOPRAZOLE 40 MG/PACK PACK GT SCH (11:04)
[2021-01-20] MEDS: DOCUSATE SODIUM 100 MG CAPSULE PO SCH ×2 (11:05→16:54)
[2021-01-20] MEDS: MEROPENEM 500 MG in IV NS 0.9% 50 ML IV SCH (11:10)
--- NOTE | 2021-01-20 19:45 | NUR ---
RN OPENING NOTE RECEIVED PT IN BED,OBTUNDED AND RESPONSIVE TO TOUCH AND LIGHT PAIN. NO SOB ON TRACH TO MECHANICAL VENT; SETTINGS ORDERED. NO RESP. DISTRESS NOTED. CURRENTLY TACHYCARDIC DURING HD, ANASTASIA HD RN AWARE WELL CHARGE NURSE; PATIENT ON TELE MONITORING. GT PATENT, IN PLACE WITH ONGOING FEEDING OF NEPRO @ 70 ML/HR X18HRS TO BE STOPPED AT 0800. GTUBE PLACEMENT CONFIRMED BY AUSCULTATION, NO RESIDUAL, FLUSHED. IV SITE @ R HAND #22 DISLODGED AND REMOVED. (R) UA MIDLINE #18; PATENT, INTACT AND FLUSHING WELL. (L) IJ HD CATH INTACT NO SIGNS OF INFECTION, CLEAN DRESSING. SAFETY MEASURES IMPLEMENTED: BED LOCKED IN LOWEST POSITION AND SIDE RAILS UP X3, CALL LIGHT WITHIN REACH. NO ACUTE DISTRESS NOTED AT THIS TIME. WILL MONITOR HR.
--- NOTE | 2021-01-20 22:00 | NUR ---
RN NOTE PT. HR NOW DECREASED TO SR 90'S, NO ACUTE DISTRESS NOTED AT THIS TIME.
[2021-01-21] VITALS (14 sets, daily range): BP systolic 89–119; BP diastolic 45–74
[2021-01-21] MEDS: MEROPENEM 500 MG in IV NS 0.9% 50 ML IV SCH ×3 (00:02→23:59)
[2021-01-21] MEDS: IPRATROPIUM NEB FS 0.5 MG/2.5 ML AMPUL.NEB NEB SCH ×4 (00:57→20:06)
[2021-01-21] MEDS: ALBUTEROL FS 2.5 MG/0.5 ML VIAL.NEB NEB SCH ×4 (00:57→20:06)
--- NOTE | 2021-01-21 06:00 | NUR ---
RN NOTE PT. NOTICED TO BE MILDLY SWEATING. TEMP TAKEN AND IT IS 99.9. HR AND BP BASELINE. PRN TYLENOL GIVEN 325 MG VIA G TUBE ALONG WITH COOLING MEASURES IMPLEMENTED
[2021-01-21] MEDS: ACETAMINOPHEN 325 MG TABLET MC PRN (06:03)
--- NOTE | 2021-01-21 06:31 | NUR ---
RN CLOSING NOTE PATIENT A/O X1, VERBAL AND TACTILE STIMULI. NO SIGNS OF RESPIRATORY DISTRESS, REMAIN ON MECH VENT WITH SETTINGS PRESCRIBED ;TOLERATING WELL SATURATING @ >98% HEMODIALYSIS COMPLETED TODAY 1.1 LITER OUTPUT BY ANASTASIA AGUILAR RN, NO BM THROUGHOUT SHIFT. WOUND CARE COMPLETED ORDERED. HR NOW NORMAL SR 70-80'S. BED BATH GIVEN AND LINEN CHANGE WITH ASSISTANCE OF SALESPERSON MEN'S FURNISHINGS. REPOSITIONED Q2H AND NEEDED, OFFLOADED HEELS. COOLING MEASURES AND TYLENOL GIVEN FOR LOW GRADE FEVER. NEPRO RUNNING THROUGH G-TUBE AT 70ML/ HR X18HRS TO BE STOPPED AT 0800 AND RE-STARTED AT 1400. G-TUBE FLUSHED AND PATENT. (R) UA MIDLINE PATENT AND INTACT. HEMODIALYSIS TO BE COMPLETED LATER TODAY. SAFETY MEASURES IMPLEMENTED, BED IN LOWEST POSITION, LOCKED, SIDE RAILS UP, CALL LIGHT WITHIN REACH. ALL NEEDS AND ORDERS ADDRESSED DURING THE SHIFT. NO ACUTE DISTRESS NOTED AT THIS TIME. WILL ENDORSE CONTINUITY OF CARE TO MORNING SHIFT RN
--- NOTE | 2021-01-21 07:38 | NUR ---
RN NOTE PATIENT IS IN BED WITH HOB AT SEMI FOWLERS POSITION. PATIENT IS ON TRACH/VENT WITH NO SIGNS OF LABORED BREATHING. PATIENT IS OBTUNDED. ALEX MIDLINE IS PATENT AND INTACT. GTUBE IS IN PLACE WITH 0 RESIDUAL NOTED. BED IS LOCKED IN THE LOWEST POSITION, 3 GUARD RAILS RAISED, CALL COATES WITHIN REACH, AND ALL HOSPITAL SAFETY PRECAUTIONS ARE BEING FOLLOWED. WILL CONTINUE TO MONITOR THROUGHOUT SHIFT.
[2021-01-21] MEDS: SILVER SULFADIAZINE CREAM 25 GM TUBE TP SCH (08:15)
[2021-01-21] MEDS: DOCUSATE SODIUM 100 MG CAPSULE PO SCH ×2 (08:15→16:00)
[2021-01-21] MEDS: THERAHONEY GEL 1.5 OZ TUBE TP SCH (08:15)
[2021-01-21] MEDS: PANTOPRAZOLE 40 MG/PACK PACK GT SCH (08:15)
[2021-01-21] MEDS: SEVELAMER CARBONATE 800 MG POWD.PACK GT SCH ×3 (08:15→16:00)
[2021-01-21] MEDS ORDERED: VIT B CMPLX 3/FA/VIT C/BIOTIN 1 TAB TABLET PO SCH (09:00)
[2021-01-21 09:39] LABS: CALCIUM, SERUM 8.8 mg/dL (8.5-10.1); CREATININE 6.2 mg/dL (0.6-1.3); POTASSIUM 4.2 mmol/L (3.5-5.1)
[2021-01-21 12:02] LABS: BASOPHILS # (AUTO) 0.1 K/uL (0.0-0.2); BASOPHILS % (AUTO) 0.5 % (0.0-2.0); EOSINOPHILS % (AUTO) 3.1 % (0.0-6.0); LYMPHOCYTES # (AUTO) 1.5 K/uL (0.8-4.8); LYMPHOCYTES % (AUTO) 10.5 % (20.0-44.0); MEAN CORPUSCULAR HGB CONC 32 g/dl (31.0-36.0); MEAN CORPUSCULAR VOLUME 90 fL (80-96); MONOCYTES % (AUTO) 14.3 % (2.0-12.0); NEUTROPHILS % (AUTO) 71.6 % (43.0-81.0); PLATELET COUNT (AUTO) 152 K/uL (150-450); RED BLOOD CELL COUNT(AUTO) 2.18 MIL/uL (4.5-6.0)
[2021-01-21 12:09] LABS: HEMATOCRIT 20 % (39-51)
[2021-01-21 12:19] LABS: HEMOGLOBIN 6.3 g/dL (13.5-17.5)
--- NOTE | 2021-01-21 12:54 | NUR ---
RN NOTE CONSENT OBTAINED FOR Serial excisional wound debridement of bilateral lower extremities BY DAUGHTER MAC MCNEIL AND PLACED IN CHART.
--- NOTE | 2021-01-21 13:30 | NUR ---
RN NOTE DR. GORDON NOTIFIED FOR HGB 6.3 OKAY TO TRANSFUSE 1 UNIT PRBC.
[2021-01-21 15:08] LABS: EOSINOPHILS % (MANUAL) 3 % (0-4); LYMPHOCYTES % (MANUAL) 10 % (16-48); MONOCYTES % (MANUAL) 13 % (0-11.0); NEUTROPHILS % (MANUAL) 74 (42-76)
[2021-01-21] MEDS: NEPRO 1,000 ML BOTTLE GT PRN (15:40)
[2021-01-21] MEDS: EPOETIN ALFA (4000 UNIT) 4,000 UNIT/ML VIAL IV SCH (15:56)
--- NOTE | 2021-01-21 18:56 | NUR ---
RN NOTE PATIENT IS IN BED WITH HOB AT SEMI FOWLERS POSITION. PATIENT IS ON TRACH/VENT WITH NO SIGNS OF LABORED BREATHING. PATIENT IS OBTUNDED. ALEX MIDLINE IS PATENT AND INTACT. GTUBE IS IN PLACE WITH 0 RESIDUAL NOTED. BED IS LOCKED IN THE LOWEST POSITION, 3 GUARD RAILS RAISED, CALL COATES WITHIN REACH, AND ALL HOSPITAL SAFETY PRECAUTIONS ARE BEING FOLLOWED. ALL DUE MEDS GIVEN AND PATIENT REMAINED STABLE THROUGHOUT SHIFT. WILL ENDORSE TO GRADUATE STUDIES DEAN RN.
[2021-01-21] MEDS ORDERED: ALTEPLASE CATHFLO 2 MG/VIAL IV ONE (19:00)
--- NOTE | 2021-01-21 19:40 | NUR ---
RN NOTE PATIENT IN BED, OBTUNDED AND RESPONSIVE TO TOUCH AND LIGHT PAIN. ON TRACH TO MECHANICAL VENT, SETTINGS ORDERED. NO RESPIRATORY DISTRESS NOTED. PATIENT ON TELE MONITORING. GT PATENT, IN PLACE WITH ONGOING NEPRO @ 70 ML/HR X18HRS, NO RESIDUAL NOTED. ALEX MIDLINE #18; PATENT, INTACT AND FLUSHING WELL. LEFT CHEST WALL HD CATH INTACT NO SIGNS OF INFECTION, CLEAN DRESSING. SAFETY MEASURES IMPLEMENTED: BED LOCKED IN LOWEST POSITION AND SIDE RAILS UP X3. CALL LIGHT WITHIN REACH. Addendum: 01/22/21 at 0640 by STAR PEREZ RN DIALYSIS COMPLETED AT THIS TIME. S/P BLOOD TRANSFUSION, NO ASE REACTION NOTED.
[2021-01-21] MEDS: VANCOMYCIN POST DIALYSIS 500MG IV PRN (20:06)
[2021-01-22] VITALS: BP 96/59
[2021-01-22] MEDS: IPRATROPIUM NEB FS 0.5 MG/2.5 ML AMPUL.NEB NEB SCH ×4 (01:33→20:33)
[2021-01-22] MEDS: ALBUTEROL FS 2.5 MG/0.5 ML VIAL.NEB NEB SCH ×4 (01:34→20:33)
[2021-01-22 04:00] VITALS: BP 106/65
--- NOTE | 2021-01-22 06:40 | NUR ---
RN NOTE PATIENT OBTUNDED AND RESPONSIVE TO TOUCH AND LIGHT PAIN. ON TRACH TO MECHANICAL VENT, SETTINGS ORDERED. NO RESPIRATORY DISTRESS. GT PATENT, IN PLACE WITH ONGOING NEPRO @ 70 ML/HR X18HRS, NO RESIDUAL NOTED. ALEX MIDLINE #18 NOTED. PATENT, INTACT AND FLUSHING WELL. LEFT CHEST WALL HD CATH INTACT NO SIGNS OF INFECTION DRESSING DRY AND INTACT. TURNED AND REPOSITIONED. TOLERATED BED BATH WELL. ORAL CARE DONE. BED LOCKED IN LOWEST POSITION AND SIDE RAILS UP X3. CALL LIGHT WITHIN REACH. WILL ENDORSE TO AM SHIFT.
[2021-01-22 06:56] LABS: BASOPHILS # (AUTO) 0.1 K/uL (0.0-0.2); BASOPHILS % (AUTO) 0.6 % (0.0-2.0); EOSINOPHILS % (AUTO) 4.6 % (0.0-6.0); HEMATOCRIT 22 % (39-51); HEMOGLOBIN 7.5 g/dL (13.5-17.5); LYMPHOCYTES # (AUTO) 1.1 K/uL (0.8-4.8); LYMPHOCYTES % (AUTO) 8.2 % (20.0-44.0); MEAN CORPUSCULAR HGB CONC 34 g/dl (31.0-36.0); MEAN CORPUSCULAR VOLUME 89 fL (80-96); MONOCYTES # (AUTO) 1.4 K/uL (0.1-1.30); MONOCYTES % (AUTO) 10.1 % (2.0-12.0); NEUTROPHILS # (AUTO) 10.6 K/uL (1.8-8.9); NEUTROPHILS % (AUTO) 76.5 % (43.0-81.0); PLATELET COUNT (AUTO) 156 K/uL (150-450); RED BLOOD CELL COUNT(AUTO) 2.49 MIL/uL (4.5-6.0); WHITE BLOOD COUNT (AUTO) 13.8 K/uL (4.3-11.0)
[2021-01-22 07:13] LABS: CALCIUM, SERUM 9.1 mg/dL (8.5-10.1); CREATININE 7.3 mg/dL (0.6-1.3); POTASSIUM 4.1 mmol/L (3.5-5.1)
--- NOTE | 2021-01-22 07:20 | NUR ---
RN NOTE PATIENT OBSERVED ON BED, OBTUNDED, BREATHING EVEN AND UNLABORED, ON TRACHEOTOMY AND MECHANICAL VENTILATOR TOLERATING WELL O2 SAT OF 97%, ON TELE MONITOR SR HR OF 91, PATIENT IS ANURIC, ON HEMO DIALYSIS YESTERDAY 01/21, HD CATH ON LEFT CHEST WALL, WITH ALEX MIDLINE PATENT FLUSHING WELL, ON GT FEEDING, PATENT UPON AUSCULTATION, ON NEPHRO 70CC/HR, BED WHEELS LOCK, CALL LIGHT WITHIN REACH, SAFETY MEASURE OBSERVED, FOR ASPIRATION PRECAUTION HOB ELEVATED >30 DEGREES, WILL CONTINUE TO MONITOR
--- NOTE | 2021-01-22 07:42 | NUR ---
RT Pt received trached on mechanical ventilation with noted settings. Vent is plugged into red outlet, BVM, and spare trach by bedside. No SOB or respiratory distress noted. Addendum: 01/22/21 at 0848 by TYRESE ROWE RT Amended: Links added.
[2021-01-22 08:00] VITALS: BP 105/68
[2021-01-22] MEDS ORDERED: MAGNESIUM HYDROXIDE 30 ML UDC PEG PRN (08:15)
[2021-01-22] MEDS: THERAHONEY GEL 1.5 OZ TUBE TP SCH (08:15)
[2021-01-22] MEDS: SEVELAMER CARBONATE 800 MG POWD.PACK GT SCH (08:15)
[2021-01-22] MEDS ORDERED: MAG HYDROX/AL HYDROX/SIMETH 30 ML UDC PEG PRN (08:15)
[2021-01-22] MEDS: PANTOPRAZOLE 40 MG/PACK PACK GT SCH (08:15)
[2021-01-22] MEDS: SILVER SULFADIAZINE CREAM 25 GM TUBE TP SCH (08:16)
[2021-01-22] MEDS ORDERED: MIDODRINE HCL (5MG) 5 MG TABLET PEG PRN (08:16)
[2021-01-22] MEDS: VIT B CMPLX 3/FA/VIT C/BIOTIN 1 TAB TABLET PEG SCH (08:17)
[2021-01-22] MEDS: DOCUSATE SODIUM LIQ 100 MG/10 ML UDC PEG SCH ×2 (08:18→17:34)
[2021-01-22] MEDS: PANTOPRAZOLE 40 MG/PACK PACK PEG SCH (08:22)
[2021-01-22] MEDS: SEVELAMER CARBONATE 800 MG POWD.PACK PEG SCH ×3 (08:22→17:34)
[2021-01-22 09:00] LABS: BAND % (MANUAL) 1 % (0.0-5.0); EOSINOPHILS % (MANUAL) 7 % (0-4); LYMPHOCYTES % (MANUAL) 7 % (16-48); MONOCYTES % (MANUAL) 11 % (0-11.0); NEUTROPHILS % (MANUAL) 74 (42-76)
[2021-01-22 12:00] VITALS: BP 101/59
[2021-01-22] MEDS: MEROPENEM 500 MG in IV NS 0.9% 50 ML IV SCH ×2 (12:16→15:26)
[2021-01-22 16:00] VITALS: BP 105/66
[2021-01-22] MEDS: PROSOURCE / PROSTAT (PYXIS) 30 ML UDC GT SCH (17:34)
--- NOTE | 2021-01-22 19:05 | NUR ---
RN NOTE PATIENT OBSERVED ON BED, OBTUNDED, BREATHING EVEN AND UNLABORED, ON TRACHEOTOMY AND MECHANICAL VENTILATOR TOLERATING WELL O2 SAT OF 97%, ON TELE MONITOR SINUS TACHYCARDIA HR OF 101, PATIENT IS ANURIC, ON HEMO DIALYSIS TODAY 800CC REMOVED VANCOMYCIN NOT GIVEN PER PHARMACY DOSE WAS ADMINSITERED YESTERDAY, VANCO THROUGH ON AM, HD CATH ON LEFT CHEST WALL, WITH ALEX MIDLINE PATENT FLUSHING WELL, ON GT FEEDING, PATENT UPON AUSCULTATION, ON NEPHRO 70CC/HR, WOUND TREATMENT DONE ORDERED, BED WHEELS LOCK, CALL LIGHT WITHIN REACH, SAFETY MEASURE OBSERVED, FOR ASPIRATION PRECAUTION HOB ELEVATED >30 DEGREES, WILL CONTINUE TO MONITOR. WILL ENDORSE TO NOC SHIFT,
--- NOTE | 2021-01-22 19:45 | NUR ---
RN OPENING NOTE RECEIVED PT IN BED,OBTUNDED AND RESPONSIVE TO TOUCH AND LIGHT PAIN. NO SOB ON TRACH TO MECHANICAL VENT SETTINGS ORDERED. NO RESP. DISTRESS NOTED. PATIENT ON TELE MONITORING; SINUS TACHY. GT PATENT, IN PLACE WITH ONGOING FEEDING OF NEPRO @ 70 ML/HR X18HRS. G-TUBE PLACEMENT CONFIRMED BY AUSCULTATION, NO RESIDUAL, FLUSHED. (R) UA MIDLINE #18; PATENT, INTACT AND FLUSHING WELL. (L) IJ HD CATH INTACT NO SIGNS OF INFECTION, CLEAN DRESSING. SAFETY MEASURES IMPLEMENTED: BED LOCKED IN LOWEST POSITION AND SIDE RAILS UP X3, CALL LIGHT WITHIN REACH. NO ACUTE DISTRESS NOTED AT THIS TIME.
[2021-01-22 22:00] VITALS: BP 105/71
[2021-01-23] VITALS: BP 112/75
--- NOTE | 2021-01-23 | NUR ---
RN NOTE PT. HAS A LOW GRADE FEVER; 99.6. ACETAMINOPHEN 325MG PRN GIVEN VIA G TUBE AND COOLING MEASURES IMPLEMENTED. OTHER VITALS WNL
[2021-01-23] MEDS: ACETAMINOPHEN 325 MG TABLET MC PRN ×2 (00:18→20:37)
[2021-01-23] MEDS: MEROPENEM 500 MG in IV NS 0.9% 50 ML IV SCH ×3 (00:18→23:19)
[2021-01-23] MEDS: ALBUTEROL FS 2.5 MG/0.5 ML VIAL.NEB NEB SCH ×5 (01:30→19:00)
[2021-01-23] MEDS: IPRATROPIUM NEB FS 0.5 MG/2.5 ML AMPUL.NEB NEB SCH ×4 (01:55→19:00)
[2021-01-23 04:00] VITALS: BP 110/69
[2021-01-23] MEDS: NEPRO 1,000 ML BOTTLE PEG PRN (05:06)
--- NOTE | 2021-01-23 06:34 | NUR ---
RN CLOSING NOTE PATIENT A/O X1, VERBAL AND TACTILE STIMULI. NO SIGNS OF RESPIRATORY DISTRESS, REMAIN ON MECH VENT WITH SETTINGS PRESCRIBED ;TOLERATING WELL SATURATING @ >98% HEMODIALYSIS COMPLETED TODAY 800 ML OUTPUT. NO BM THROUGHOUT SHIFT. WOUND CARE COMPLETED ORDERED. ON TELE MONITORING; SINUS TACHYCARDIA 110'S. BED BATH GIVEN AND LINEN CHANGE WITH ASSISTANCE OF PLASTIC TILE LAYER. REPOSITIONED Q2H AND NEEDED, OFFLOADED HEELS. COOLING MEASURES AND TYLENOL GIVEN FOR LOW GRADE FEVER. NEPRO RUNNING THROUGH G-TUBE AT 70ML/ HR X18HRS TO BE STOPPED AT 1000 ND RE-STARTED AT 1600. G-TUBE FLUSHED AND PATENT. (R) UA MIDLINE PATENT AND INTACT. HEMODIALYSIS TO BE COMPLETED LATER TODAY, VANCO TO BE GIVEN THEREAFTER IF TROUGH IS < OR = 20. SAFETY MEASURES IMPLEMENTED, BED IN LOWEST POSITION, LOCKED, BED ALARM ON, SIDE RAILS UP X3, CALL LIGHT WITHIN REACH. ALL NEEDS AND ORDERS ADDRESSED DURING THE SHIFT. NO ACUTE DISTRESS NOTED AT THIS TIME. WILL ENDORSE CONTINUITY OF CARE TO MORNING SHIFT RN
[2021-01-23 06:46] LABS: BASOPHILS # (AUTO) 0.1 K/uL (0.0-0.2); BASOPHILS % (AUTO) 0.4 % (0.0-2.0); EOSINOPHILS % (AUTO) 2.9 % (0.0-6.0); HEMATOCRIT 23 % (39-51); HEMOGLOBIN 7.7 g/dL (13.5-17.5); LYMPHOCYTES # (AUTO) 1.3 K/uL (0.8-4.8); LYMPHOCYTES % (AUTO) 7.6 % (20.0-44.0); MEAN CORPUSCULAR HGB CONC 33 g/dl (31.0-36.0); MEAN CORPUSCULAR VOLUME 91 fL (80-96); MONOCYTES # (AUTO) 2.1 K/uL (0.1-1.30); MONOCYTES % (AUTO) 12.5 % (2.0-12.0); NEUTROPHILS # (AUTO) 12.8 K/uL (1.8-8.9); NEUTROPHILS % (AUTO) 76.6 % (43.0-81.0); PLATELET COUNT (AUTO) 192 K/uL (150-450); RED BLOOD CELL COUNT(AUTO) 2.56 MIL/uL (4.5-6.0); WHITE BLOOD COUNT (AUTO) 16.7 K/uL (4.3-11.0)
[2021-01-23 07:00] LABS: CALCIUM, SERUM 9.2 mg/dL (8.5-10.1); CREATININE 5.4 mg/dL (0.6-1.3); POTASSIUM 4.3 mmol/L (3.5-5.1)
--- NOTE | 2021-01-23 07:30 | NUR ---
PANTOGRAPH ENGRAVER AM NOTES: RECEIVED PT IN BED RESTING COMFORTABLY. PATIENT IN NO S/SX OF ACUTE DISTRESS AT THIS TIME. NO SOB NOTED. PATIENT'S BREATHING IS EVEN AND UNLABORED. PATIENT WITH PORTEX 8 TRACH TO MECHANICAL VENT; SETTINGS ORDERED; PT TOLERATED WELL. AMBU BAG AT BED SIDE ALARMS SET PER PROTOCOL AND AUDIBLE. VENT PLUGGED IN TO RED OUTLET. PATIENT ON TELE MONITORING READING SINUS RHYTHM HR IS @90s AT THE TIME OF RECEIVED. PATIENT ON TUBE FEEDING DIET; TOLERATES WELL. WITH G TUBE FLUSHING AND PATENT; SITE CLEAN DRY AND INTACT; NO RESIDUAL NOTED; ONGOING NEPRO AT 70CC/HR (GOAL @70CC/HR); OFF 1000 ON 1600 NOTED IV SITE @ R UA MIDLINE #18; PATENT, INTACT AND FLUSHING WELL; NO S/S OF INFECTION OR INFILTRATION. PT ALSO HAS L CW HD CATH SECURED AND INTACT NO SIGNS OF INFECTION. SAFETY MEASURES HAVE BEEN PROVIDED AND IMPLEMENTED. PATIENT BED ALARM IS ON. HEAD OF BED ELEVATED. BED IS LOCKED, IN LOWEST POSITION AND SIDE RAILS UP. CALL LIGHT WITHIN REACH OF THE PATIENT. APPLICABLE ISOLATION PRECAUTIONS IN PLACE. WILL CONTINUE TO MONITOR AND REASSESS FOR ANY CHANGES AND WILL CARRY OUT ANY ONGOING AND ACTIVE MD ORDER.
[2021-01-23 08:00] VITALS: BP 121/69
--- NOTE | 2021-01-23 09:30 | NUR ---
RN NOTES DUE MEDS GIVEN
[2021-01-23] MEDS: PROSOURCE / PROSTAT (PYXIS) 30 ML UDC GT SCH ×2 (10:00→17:49)
[2021-01-23] MEDS: PANTOPRAZOLE 40 MG/PACK PACK PEG SCH (10:00)
[2021-01-23] MEDS: VIT B CMPLX 3/FA/VIT C/BIOTIN 1 TAB TABLET PEG SCH (10:00)
[2021-01-23] MEDS: SILVER SULFADIAZINE CREAM 25 GM TUBE TP SCH (10:01)
[2021-01-23] MEDS: DOCUSATE SODIUM LIQ 100 MG/10 ML UDC PEG SCH ×2 (10:01→17:49)
[2021-01-23] MEDS: SEVELAMER CARBONATE 800 MG POWD.PACK PEG SCH ×3 (10:01→17:49)
[2021-01-23] MEDS: THERAHONEY GEL 1.5 OZ TUBE TP SCH (10:02)
[2021-01-23 12:00] VITALS: BP 115/60
[2021-01-23] MEDS: EPOETIN ALFA (4000 UNIT) 4,000 UNIT/ML VIAL IV SCH (15:57)
[2021-01-23 16:00] VITALS: BP 109/61
--- NOTE | 2021-01-23 19:00 | NUR ---
IN-LINE TREATMENTS NOT GIVEN DUE TO HR ABOVE NORMAL LIMITS. RN NOTIFIED. Addendum: 01/23/21 at 1903 by STACI DOYLE RT Amended: Links added.
--- NOTE | 2021-01-23 19:13 | NUR ---
RN NOTES ALL NEEDS MET AT THIS TIME. NO SIGNIFICANT CHANGE IN CONDITION. PATIENT HD NOT DONE, DUE TO CLOGGED, ALTAPLASE GIVEN YESTERDAY, NEXT HD ON 2020. PM CARE DONE. ENDORSED.
--- NOTE | 2021-01-23 19:30 | NUR ---
RN NOTE RECEIVED PATIENT IN BED, OBTUNDED, IN NO S/SX OF ACUTE DISTRESS AT THIS TIME. ON TRACH TO MECHANICAL VENT WITH SETTINGS PRESCRIBED, SATURATION AT 100%, ST ON THE MONITOR, HR IS 119. NOTED HD CATH AT L CHEST WALL, AND ALEX MIDLINE, PATENT AND FLUSHING WELL, NO S/S OF INFECTION. NOTED GTUBE INTACT POSITIVE PLACEMENT NOTED, NO RESIDUAL, WITH TUBE FEEDING OF NEPRO AT 70 ML/HR. SAFETY MEASURES IMPLEMENTED. PATIENT BED ALARM IS ON. HEAD OF BED ELEVATED. BED IS LOCKED, IN LOWEST POSITION AND SIDE RAILS UP. CALL LIGHT WITHIN REACH OF THE PATIENT. WILL CONTINUE TO MONITOR AND REASSESS FOR ANY CHANGES.
[2021-01-23 20:00] VITALS: BP 114/68
--- NOTE | 2021-01-23 22:00 | NUR ---
RN NOTE HD STARTED.
[2021-01-24] VITALS (12 sets, daily range): BP systolic 91–117; BP diastolic 57–72
[2021-01-24] MEDS: ALBUTEROL FS 2.5 MG/0.5 ML VIAL.NEB NEB SCH ×4 (01:16→20:36)
[2021-01-24] MEDS: IPRATROPIUM NEB FS 0.5 MG/2.5 ML AMPUL.NEB NEB SCH ×4 (01:16→20:36)
[2021-01-24] MEDS: VANCOMYCIN POST DIALYSIS 500MG IV PRN (02:09)
--- NOTE | 2021-01-24 03:52 | NUR ---
RN NOTE PT IN STABLE CONDITION, TRANSFERRED TO MS 319-1 VIA ACLS PROTOCOL. REPORT GIVEN TO SAAD FORREST FOR DENNIS.
--- NOTE | 2021-01-24 04:22 | NUR ---
Received at 3 AM from [facility] via bed. Obtundent. Peg feeding at 70 ml hr site clean. max assist needed when repositioned.arms contracted legs contracted. midline flushed right arm w/o a problem. Asp precautions continued
--- NOTE | 2021-01-24 07:30 | NUR ---
RECEIVED PATIENT IN BED, OBTUNDED WITH NO SIGNS AND SYMPTOMS OF ACUTE DISTRESS AT THIS TIME. ON TRACH TO MECHANICAL VENT WITH SETTINGS PRESCRIBED, SATURATION AT 100%, ST ON THE MONITOR, HR IS 120. WITH HD CATH AT L CHEST WALL, AND ALEX MIDLINE, PATENT AND FLUSHING WELL. G-TUBE INTACT POSITIVE PLACEMENT NOTED, NO RESIDUAL, ON TUBE FEEDING OF NEPRO AT 70 ML/HR. SAFETY MEASURES IMPLEMENTED. PATIENT BED ALARM IS ON. HEAD OF BED ELEVATED, BED IS LOCKED, IN LOWEST POSITION AND SIDE RAILS UP. CALL LIGHT WITHIN REACH OF THE PATIENT. WILL CONTINUE TO MONITOR AND REASSESS FOR ANY CHANGES.
[2021-01-24] MEDS: VIT B CMPLX 3/FA/VIT C/BIOTIN 1 TAB TABLET PEG SCH (08:34)
[2021-01-24] MEDS: SEVELAMER CARBONATE 800 MG POWD.PACK PEG SCH ×3 (08:34→17:11)
[2021-01-24] MEDS: PANTOPRAZOLE 40 MG/PACK PACK PEG SCH (08:34)
[2021-01-24] MEDS: DOCUSATE SODIUM LIQ 100 MG/10 ML UDC PEG SCH ×2 (08:34→17:11)
[2021-01-24] MEDS: THERAHONEY GEL 1.5 OZ TUBE TP SCH (08:35)
[2021-01-24] MEDS: SILVER SULFADIAZINE CREAM 25 GM TUBE TP SCH (08:35)
[2021-01-24] MEDS: PROSOURCE / PROSTAT (PYXIS) 30 ML UDC GT SCH ×2 (08:37→17:11)
[2021-01-24 11:32] LABS: BASOPHILS % (AUTO) 0.3 % (0.0-2.0); EOSINOPHILS % (AUTO) 3.6 % (0.0-6.0); LYMPHOCYTES # (AUTO) 1.2 K/uL (0.8-4.8); LYMPHOCYTES % (AUTO) 7.6 % (20.0-44.0); MEAN CORPUSCULAR HGB CONC 33 g/dl (31.0-36.0); MEAN CORPUSCULAR VOLUME 92 fL (80-96); MONOCYTES # (AUTO) 1.8 K/uL (0.1-1.30); MONOCYTES % (AUTO) 11.8 % (2.0-12.0); NEUTROPHILS # (AUTO) 11.7 K/uL (1.8-8.9); NEUTROPHILS % (AUTO) 76.7 % (43.0-81.0); PLATELET COUNT (AUTO) 198 K/uL (150-450); RED BLOOD CELL COUNT(AUTO) 2.07 MIL/uL (4.5-6.0); WHITE BLOOD COUNT (AUTO) 15.2 K/uL (4.3-11.0)
--- NOTE | 2021-01-24 11:50 | NUR ---
HOUSE CALLS NURSE NOTES RECEIVED PT'S LATEST H/H RESULT TO DR. GORDON, ORDERS GIVEN, NOTED AND CARRIED OUT, PT ASLEEP, NO SIGN OF PAIN OR ANY DISCOMFORT, KEPT WARM AND COMFORTABLE IN BED.
[2021-01-24 11:51] LABS: HEMOGLOBIN 6.2 g/dL (13.5-17.5)
[2021-01-24 11:52] LABS: HEMATOCRIT 19 % (39-51)
[2021-01-24 11:53] LABS: CALCIUM, SERUM 8.8 mg/dL (8.5-10.1); CREATININE 4.6 mg/dL (0.6-1.3); POTASSIUM 4.1 mmol/L (3.5-5.1)
[2021-01-24 12:24] LABS: EOSINOPHILS % (MANUAL) 3 % (0-4); LYMPHOCYTES % (MANUAL) 6 % (16-48); MONOCYTES % (MANUAL) 9 % (0-11.0); NEUTROPHILS % (MANUAL) 82 (42-76)
[2021-01-24] MEDS: MEROPENEM 500 MG in IV NS 0.9% 50 ML IV SCH (12:59)
--- NOTE | 2021-01-24 18:31 | NUR ---
SCREEN PRINTER HELPER NOTES STARTED BLOOD TRANSFUSION WITH VITAL SIGNS TAKEN AND RECORDED, AFEBRILE, ORAL TEMP AT 98.3F. WILL MONITOR PATIENT FOR THE FIRST 15MINS.
--- NOTE | 2021-01-24 19:05 | NUR ---
MONORAIL HELPER CLOSING NOTES PATIENT IN BED, OBTUNDED WITH NO SIGNS AND SYMPTOMS OF ACUTE DISTRESS AT THIS TIME. ON TRACH TO MECHANICAL VENT WITH SETTINGS PRESCRIBED, SATURATION AT 100%, ST ON THE MONITOR, HR IS 120. WITH HD CATH AT L CHEST WALL, AND ALEX MIDLINE, PATENT AND FLUSHING WELL WITH ONGOING BLOOD TRANSFUSION. G-TUBE INTACT POSITIVE PLACEMENT NOTED, NO RESIDUAL, ON TUBE FEEDING OF NEPRO AT 70 ML/HR. SAFETY MEASURES IMPLEMENTED. PATIENT BED ALARM IS ON. HEAD OF BED ELEVATED, BED IS LOCKED, IN LOWEST POSITION AND SIDE RAILS UP. CALL LIGHT WITHIN REACH OF THE PATIENT. WILL CONTINUE TO MONITOR AND REASSESS FOR ANY CHANGES
[2021-01-25] VITALS: BP 113/66
[2021-01-25] MEDS: MEROPENEM 500 MG in IV NS 0.9% 50 ML IV SCH ×2 (00:22→12:59)
[2021-01-25] MEDS: ALBUTEROL FS 2.5 MG/0.5 ML VIAL.NEB NEB SCH ×4 (02:11→19:48)
[2021-01-25] MEDS: IPRATROPIUM NEB FS 0.5 MG/2.5 ML AMPUL.NEB NEB SCH ×4 (02:11→19:48)
[2021-01-25 04:00] VITALS: BP 110/66
[2021-01-25] MEDS: NEPRO 1,000 ML BOTTLE PEG PRN (04:00)
[2021-01-25 06:45] LABS: BASOPHILS # (AUTO) 0.1 K/uL (0.0-0.2); BASOPHILS % (AUTO) 0.6 % (0.0-2.0); EOSINOPHILS % (AUTO) 3.9 % (0.0-6.0); HEMATOCRIT 21 % (39-51); LYMPHOCYTES # (AUTO) 1.3 K/uL (0.8-4.8); LYMPHOCYTES % (AUTO) 10.2 % (20.0-44.0); MEAN CORPUSCULAR HGB CONC 33 g/dl (31.0-36.0); MEAN CORPUSCULAR VOLUME 92 fL (80-96); MONOCYTES # (AUTO) 1.6 K/uL (0.1-1.30); MONOCYTES % (AUTO) 12.2 % (2.0-12.0); NEUTROPHILS # (AUTO) 9.6 K/uL (1.8-8.9); NEUTROPHILS % (AUTO) 73.1 % (43.0-81.0); PLATELET COUNT (AUTO) 200 K/uL (150-450); RED BLOOD CELL COUNT(AUTO) 2.28 MIL/uL (4.5-6.0); WHITE BLOOD COUNT (AUTO) 13.2 K/uL (4.3-11.0)
[2021-01-25 06:50] LABS: HEMOGLOBIN 6.9 g/dL (13.5-17.5)
[2021-01-25 07:34] LABS: CALCIUM, SERUM 8.8 mg/dL (8.5-10.1); CREATININE 5.6 mg/dL (0.6-1.3); POTASSIUM 4.2 mmol/L (3.5-5.1)
[2021-01-25 08:00] VITALS: BP 104/58
--- NOTE | 2021-01-25 08:06 | NUR ---
MS RN OPENING NOTE PATIENT IS IN BED RESTING, PATIENT IS IN NO ACUTE DISTRESS. PATIENT IS ON VENT, SATURATING IN 100%, PATIENT IS ON TELE MONITOR READING ST 100s. PATIENT IS BED BOUND. SAFETY PRECAUTIONS ARE ON, BED IS LOCKED INT HE LOWEST POSITION, WITH SIDE RAILS UP, CALL LIGHT WITHIN REACH, WILL CONTINUE TO MONITOR.
[2021-01-25 08:11] LABS: EOSINOPHILS % (MANUAL) 4 % (0-4); LYMPHOCYTES % (MANUAL) 13 % (16-48); MONOCYTES % (MANUAL) 3 % (0-11.0); NEUTROPHILS % (MANUAL) 80 (42-76)
[2021-01-25] MEDS: VIT B CMPLX 3/FA/VIT C/BIOTIN 1 TAB TABLET PEG SCH (09:10)
[2021-01-25] MEDS: DOCUSATE SODIUM LIQ 100 MG/10 ML UDC PEG SCH ×2 (09:10→17:39)
[2021-01-25] MEDS: PANTOPRAZOLE 40 MG/PACK PACK PEG SCH (09:10)
[2021-01-25] MEDS: SEVELAMER CARBONATE 800 MG POWD.PACK PEG SCH ×3 (09:10→17:40)
[2021-01-25] MEDS: PROSOURCE / PROSTAT (PYXIS) 30 ML UDC GT SCH ×2 (09:10→17:40)
[2021-01-25] MEDS: SILVER SULFADIAZINE CREAM 25 GM TUBE TP SCH (09:11)
[2021-01-25] MEDS: THERAHONEY GEL 1.5 OZ TUBE TP SCH (09:11)
[2021-01-25 15:43] VITALS: BP 113/59
--- NOTE | 2021-01-25 15:45 | NUR ---
MS RN NOTE PATIENTS HEMOGLOBIN IS 6.9, DR. GORDON MADE AWARE. ORDERED 1 UNIT OF PRBC. BLOOD TRANFUSION WILL BE ADMINISTERED WITH DIALYSIS.
[2021-01-25 16:00] VITALS: BP_SYST 104; BP_SYST 113; BP_DIAS 57; BP_DIAS 59
--- NOTE | 2021-01-25 16:01 | NUR ---
MS RN NOTE PATIENTS BLOOD TRANSFUSION COMPLETED WITH DIALYSIS, PATIENT TOLERATED WELL.
[2021-01-25] MEDS: VANCOMYCIN POST DIALYSIS 500MG IV PRN (18:10)
--- NOTE | 2021-01-25 18:10 | NUR ---
MS RN NOTE PATIENT HAD DIALYSIS 2L OF FLUIDS REMOVED
--- NOTE | 2021-01-25 18:52 | NUR ---
MS RN CLOSING NOTE PATIENT IS IN BED RESTING, PATIENT IS IN NO ACUTE DISTRESS. PATIENT IS ON VENT, SATURATING IN 100%, PATIENT IS ON TELE MONITOR READING ST 100s. PATIENT IS BED BOUND. PATIENT HAD 1 UNIT OF PRBC TRANSFUSED, AND HEMODIALYSIS REMOVED 2L OF FLUIDS.SAFETY PRECAUTIONS ARE ON, BED IS LOCKED INT HE LOWEST POSITION, WITH SIDE RAILS UP, ENDORSE PATIENT TO DIRECTOR CORPORATE COMMUNICATIONS NURSE FOR DENNIS.
[2021-01-25 20:34] VITALS: BP 121/81
[2021-01-26] VITALS: BP 143/77
[2021-01-26] MEDS: MEROPENEM 500 MG in IV NS 0.9% 50 ML IV SCH ×2 (00:08→12:34)
[2021-01-26] MEDS: NEPRO 1,000 ML BOTTLE PEG PRN (01:41)
[2021-01-26] MEDS: IPRATROPIUM NEB FS 0.5 MG/2.5 ML AMPUL.NEB NEB SCH ×4 (01:45→20:08)
[2021-01-26] MEDS: ALBUTEROL FS 2.5 MG/0.5 ML VIAL.NEB NEB SCH ×4 (01:45→20:08)
[2021-01-26 04:57] VITALS: BP 106/70
--- NOTE | 2021-01-26 05:56 | NUR ---
PATIENT RECEIVED ON TRACH TO VENT WITH SETTINGS OF AC 14, 500 Vt, 40%, +5. SUCTIONED FOR MINIMAL, THICK, WHITE SECRETIONS. GIVEN IN-LINE TREATMENTS WITH NO ADVERSE REACTIONS. AMBU BAG AT BEDSIDE. VENT AND PULSE OXIMETER ALARMS AUDIBLE AND VISIBLE. Addendum: 01/26/21 at 0556 by STACI DOYLE RT Amended: Links added.
[2021-01-26 06:50] LABS: OCCULT BLOOD STOOL POSITIVE (NEGATIVE)
[2021-01-26] MEDS: SEVELAMER CARBONATE 800 MG POWD.PACK PEG SCH ×3 (09:12→17:55)
[2021-01-26] MEDS: PANTOPRAZOLE 40 MG/PACK PACK PEG SCH (09:12)
[2021-01-26] MEDS: PROSOURCE / PROSTAT (PYXIS) 30 ML UDC GT SCH ×2 (09:12→17:55)
[2021-01-26] MEDS: VIT B CMPLX 3/FA/VIT C/BIOTIN 1 TAB TABLET PEG SCH (09:12)
[2021-01-26] MEDS: DOCUSATE SODIUM LIQ 100 MG/10 ML UDC PEG SCH ×2 (09:12→17:55)
[2021-01-26] MEDS: THERAHONEY GEL 1.5 OZ TUBE TP SCH (09:14)
[2021-01-26] MEDS: SILVER SULFADIAZINE CREAM 25 GM TUBE TP SCH (09:14)
[2021-01-26 09:32] VITALS: BP 116/59
[2021-01-26 12:00] VITALS: BP 109/60
[2021-01-26 14:00] VITALS: BP 108/60
[2021-01-26] MEDS: EPOETIN ALFA (4000 UNIT) 4,000 UNIT/ML VIAL IV SCH (16:01)
--- NOTE | 2021-01-26 19:55 | NUR ---
TELERN AWAKE, OBTUNDED. FEEDING VIA GT TOLERATED WELL. POSSIBLE EGD IN AM PER PMD NOTES. NO ORDE YET OF THIS TIME. ST ON THE MONITOR. POSITIONED FOR COMFORT. CONTNUED MONITORING
[2021-01-26 20:00] VITALS: BP 100/62
[2021-01-27] VITALS: BP 109/65
[2021-01-27] MEDS: MEROPENEM 500 MG in IV NS 0.9% 50 ML IV SCH ×2 (00:03→11:13)
--- NOTE | 2021-01-27 01:00 | NUR ---
TELERN FEEDING OFF, FLUSHED WITH 200CC WATER. GT REMAISN PATENT. CONSENTS FOR EGD OBTAINED VIA TELEPHONE FROM DAUGHTER OF PATIENT AT 2034. INQUIRE FROM HOUSESUPER VISOR, NOT SCHEDULED
[2021-01-27] MEDS: IPRATROPIUM NEB FS 0.5 MG/2.5 ML AMPUL.NEB NEB SCH ×3 (01:55→13:50)
[2021-01-27] MEDS: ALBUTEROL FS 2.5 MG/0.5 ML VIAL.NEB NEB SCH ×3 (01:55→13:50)
[2021-01-27 04:00] VITALS: BP 112/66
--- NOTE | 2021-01-27 06:35 | NUR ---
TELERN AM CARE STARTED, LARGE FORMED BM. KEPT NPO, FOR POSS EGD.
[2021-01-27 06:44] LABS: BASOPHILS # (AUTO) 0.1 K/uL (0.0-0.2); BASOPHILS % (AUTO) 0.5 % (0.0-2.0); EOSINOPHILS % (AUTO) 3.5 % (0.0-6.0); HEMATOCRIT 23 % (39-51); HEMOGLOBIN 7.5 g/dL (13.5-17.5); LYMPHOCYTES # (AUTO) 1.5 K/uL (0.8-4.8); LYMPHOCYTES % (AUTO) 11.6 % (20.0-44.0); MEAN CORPUSCULAR HGB CONC 33 g/dl (31.0-36.0); MEAN CORPUSCULAR VOLUME 95 fL (80-96); MONOCYTES # (AUTO) 1.8 K/uL (0.1-1.30); MONOCYTES % (AUTO) 14.4 % (2.0-12.0); NEUTROPHILS # (AUTO) 8.9 K/uL (1.8-8.9); PLATELET COUNT (AUTO) 201 K/uL (150-450); RED BLOOD CELL COUNT(AUTO) 2.39 MIL/uL (4.5-6.0); WHITE BLOOD COUNT (AUTO) 12.8 K/uL (4.3-11.0)
[2021-01-27 07:03] LABS: CALCIUM, SERUM 8.7 mg/dL (8.5-10.1); CREATININE 6.3 mg/dL (0.6-1.3); POTASSIUM 4.5 mmol/L (3.5-5.1)
--- NOTE | 2021-01-27 07:46 | NUR ---
TELE/RN OPENING NOTE RECEIVED PATIENT IN BED RESTING, PATIENT IS IN NO ACUTE DISTRESS. PATIENT IS ON VENT, SATURATING IN 100%, PATIENT IS ON TELE MONITOR READING ST 100s. PATIENT IS BED BOUND. SAFETY PRECAUTIONS ARE ON, BED IS LOCKED ON THE LOWEST POSITION, WITH SIDE RAILS UP X3, CALL LIGHT WITHIN REACH, WILL CONTINUE TO MONITOR.
[2021-01-27 08:00] VITALS: BP 109/77
[2021-01-27] MEDS: SILVER SULFADIAZINE CREAM 25 GM TUBE TP SCH (09:00)
[2021-01-27] MEDS: VIT B CMPLX 3/FA/VIT C/BIOTIN 1 TAB TABLET PEG SCH (09:00)
[2021-01-27] MEDS: PROSOURCE / PROSTAT (PYXIS) 30 ML UDC GT SCH ×2 (09:00→17:06)
[2021-01-27] MEDS: DOCUSATE SODIUM LIQ 100 MG/10 ML UDC PEG SCH ×2 (09:00→17:06)
[2021-01-27] MEDS: THERAHONEY GEL 1.5 OZ TUBE TP SCH (09:00)
[2021-01-27] MEDS: SEVELAMER CARBONATE 800 MG POWD.PACK PEG SCH ×3 (09:00→17:06)
[2021-01-27] MEDS: PANTOPRAZOLE 40 MG/PACK PACK PEG SCH (09:00)
--- NOTE | 2021-01-27 09:00 | NUR ---
TELE/RN NOTES EGD DONE AT BEDSIDE BY DR. REID. CHECKLIST AND CONSENTS ALL IN PLACED.
--- NOTE | 2021-01-27 10:21 | NUR ---
TELE/RN NOTES PATIENT POST-EGD EXAM. ESOPHAGITIS NOTED PER HEADLIGHT ADJUSTER. ALSO COLLECTED TISSUE FOR BIOPSY AND SENT TO THE LABS PER RN. RESUME SCHEDULED GTUBE FEEDING PER DR REID. V/S TAKEN FOLLOWS: 138/67, 110, 18, 99.1 tEMP, O2 SAT AT 100%. WILL CONTINUE TO MONITOR.
[2021-01-27] MEDS: METOCLOPRAMIDE HCL 10 MG/2 ML VIAL IV SCH ×2 (11:12→17:06)
[2021-01-27 12:00] VITALS: BP 106/57
[2021-01-27] MEDS ORDERED: VANC1VIA34 XX (12:58)
[2021-01-27] MEDS ORDERED: Silver Sulfadiazine Cream TP (12:58)
[2021-01-27] MEDS ORDERED: Ipratropium Bromide IH (12:58)
[2021-01-27] MEDS ORDERED: Prosource GT (12:58)
[2021-01-27] MEDS ORDERED: METO5VIA6 IV (12:58)
[2021-01-27] MEDS ORDERED: MERO500V23 IV (12:58)
[2021-01-27] MEDS ORDERED: EPOE40007 IV (12:58)
[2021-01-27] MEDS ORDERED: NEPRO 1,000 ML BOTTLE GT SCH (13:30)
[2021-01-27 16:00] VITALS: BP 93/66
[2021-01-27] MEDS ORDERED: VANCOMYCIN 1 GM in IV D5W 250 ML IV ONE (17:00)
--- NOTE | 2021-01-27 18:45 | NUR ---
TELE/BIOMEDICAL SERVICE ENGINEER NOTES PATIENT IS STABLE AND MD ORDERED DISCHARGE BACK TO SNF. PATIENT WAS PICKED UP BY EMT. MIDLINE ON RIGHT UPPER ARM IS INTACT AND IN PLACED. ALL DISCHARGE PAPERS AND BELONGINGS ACCOUNTED FOR.
[2021-01-28] MEDS ORDERED: EPOETIN ALFA-EPBX 4,000 UNIT/ML VIAL IV SCH (15:00)
== END 2021-01-27 19:30 | DRG 720 ==
LOC: ER 14:56 → TELE-TD 20:02 → TELE1 01-17 07:56 → TELE 01-24 03:39
PROVIDERS: ADMIT Internal Medicine; ATTEND Registered Nurse
PROC: 5A1955Z Respiratory Ventilation, Greater than 96 Consecutive Hours (ICD-10-PCS; principal; 2021-01-15)
PROC: 0DB68ZX Excision of Stomach, Via Natural or Artificial Opening Endoscopic, Diagnostic (ICD-10-PCS; 2021-01-15)
PROC: 5A1D70Z Performance of Urinary Filtration, Intermittent, Less than 6 Hours Per Day (ICD-10-PCS; 2021-01-15)
PROC: 05H533Z Insertion of Infusion Device into Right Subclavian Vein, Percutaneous Approach (ICD-10-PCS; 2021-01-16)
PROC: B546ZZA Ultrasonography of Right Subclavian Vein, Guidance (ICD-10-PCS; 2021-01-16)
PROC: 30233N1 Transfusion of Nonautologous Red Blood Cells into Peripheral Vein, Percutaneous Approach (ICD-10-PCS; 2021-01-17)
PROC: 0JBQ0ZZ Excision of Right Foot Subcutaneous Tissue and Fascia, Open Approach (ICD-10-PCS; 2021-01-22)
DX: A41.9 Sepsis, unspecified organism (principal); Z99.11 Dependence on respirator [ventilator] status; J18.9 Pneumonia, unspecified organism; G93.41 Metabolic encephalopathy; E46 Unspecified protein-calorie malnutrition; J96.10 Chronic respiratory failure, unspecified whether with hypoxia or hypercapnia; L89.154 Pressure ulcer of sacral region, stage 4; Z93.0 Tracheostomy status; I12.0 Hypertensive chronic kidney disease with stage 5 chronic kidney disease or end stage renal disease; E11.22 Type 2 diabetes mellitus with diabetic chronic kidney disease; E88.09 Other disorders of plasma-protein metabolism, not elsewhere classified; I69.354 Hemiplegia and hemiparesis following cerebral infarction affecting left non-dominant side; N18.6 End stage renal disease; Z99.2 Dependence on renal dialysis; Z20.822 Contact with and (suspected) exposure to COVID-19; D63.8 Anemia in other chronic diseases classified elsewhere; Z79.4 Long term (current) use of insulin; R13.10 Dysphagia, unspecified; Z93.1 Gastrostomy status; D68.59 Other primary thrombophilia; E11.40 Type 2 diabetes mellitus with diabetic neuropathy, unspecified; E11.621 Type 2 diabetes mellitus with foot ulcer; K21.00 Gastro-esophageal reflux disease with esophagitis, without bleeding; K29.70 Gastritis, unspecified, without bleeding; Z74.01 Bed confinement status; Z74.09 Other reduced mobility; Z68.25 Body mass index [BMI] 25.0-25.9, adult; L90.5 Scar conditions and fibrosis of skin; L97.418 Non-pressure chronic ulcer of right heel and midfoot with other specified severity; L97.428 Non-pressure chronic ulcer of left heel and midfoot with other specified severity; M24.562 Contracture, left knee; M24.561 Contracture, right knee; M24.522 Contracture, left elbow; M24.521 Contracture, right elbow; E11.51 Type 2 diabetes mellitus with diabetic peripheral angiopathy without gangrene
CPT/HCPCS: 31720; 36410; 36415; 71045-TC; 80048-TC; 80053-TC; 80076-TC; 80202-TC; 82272-TC; 83605-TC; 83735-TC; 83970; 84100-TC; 84484-TC; 85025-TC; 85730-TC; 86850-TC; 87040-TC; 87081-TC; 88305-TC; 88313-TC; 88342; 90935-TC; 94003-TC; 94760-TC; 94762-TC; 94799-TC; 99082-TC; A4623; A6253; A6403; A7526; G0378; J0885; J1644; J2185; J2270; J2543; J2765; J2997; J3370; J3490; J7030; J7040; J7050; J7060; P9016; U0003

== ENCOUNTER 2021-03-12 10:35 | Inpatient (IN) | payer MEDICAID ==
[~2021-03-12] VITALS: Ht 175.3 cm; Wt 72.6 kg
[~2021-03-12 10:35] MED LIST changes: -ATEN25TA GT; +EPOE40007 IV; +Ipratropium Bromide IH; -LACT1CAP61 GT; +MERO500V23 IV; +METO5VIA6 IV; +Prosource GT; +Silver Sulfadiazine Cream TP; +VANC1VIA34 XX
--- NOTE | 2021-03-12 10:48 | NUR ---
Patient transferred from [facility] for episodes of coffee ground emesis x2 this morning. Patient has a trach and is vent dependent. Patient opens eyes spontaneously and unable to communicate needs. IV 18g started on R AC. No episodes of emesis at this time. Will continue to monitor.
[2021-03-12] MEDS ORDERED: PANTOPRAZOLE 40 MG VIAL IV ONE (11:00)
[2021-03-12] MEDS ORDERED: CEFTRIAXONE 1GM BAG (ER ONLY) 1 GM/50 ML PIGGYBACK IV ONE (11:00)
[2021-03-12] MEDS ORDERED: CEFTRIAXONE 1GM BAG (ER ONLY) 50 ML IV ONE (11:10)
[2021-03-12] MEDS ORDERED: PANTOPRAZOLE 40 MG VIAL ONE (11:11)
[2021-03-12] MEDS ORDERED: ASCO500C17 GT (11:18)
[2021-03-12] MEDS ORDERED: FERR325T23 GT (11:18)
[2021-03-12] MEDS ORDERED: EPOE4000 IJ (11:18)
[2021-03-12] MEDS ORDERED: [UNRECOGNIZED DRUG - CODE] GT (11:18)
[2021-03-12] MEDS ORDERED: CYAN500T64 GT (11:18)
[2021-03-12 11:20] LABS: BASOPHILS # (AUTO) 0.2 K/uL (0.0-0.2); HEMOGLOBIN 12.7 g/dL (13.5-17.5)
[2021-03-12 11:23] LABS: EOSINOPHILS % (AUTO) 1.2 % (0.0-6.0); HEMATOCRIT 41 % (39-51); LYMPHOCYTES # (AUTO) 0.9 K/uL (0.8-4.8); LYMPHOCYTES % (AUTO) 4.8 % (20.0-44.0); MEAN CORPUSCULAR HGB CONC 31 g/dl (31.0-36.0); MEAN CORPUSCULAR VOLUME 95 fL (80-96); MONOCYTES # (AUTO) 1.9 K/uL (0.1-1.30); MONOCYTES % (AUTO) 9.7 % (2.0-12.0); NEUTROPHILS % (AUTO) 83.3 % (43.0-81.0); PLATELET COUNT (AUTO) 212 K/uL (150-450); RED BLOOD CELL COUNT(AUTO) 4.31 MIL/uL (4.5-6.0); WHITE BLOOD COUNT (AUTO) 19.3 K/uL (4.3-11.0)
[2021-03-12 11:27] LABS: ALANINE AMINOTRANSFERASE 20 U/L (12-78); ALBUMIN 3.2 g/dL (3.4-5.0); ALKALINE PHOSPHATASE 199 U/L (46-116); ASPARTATE AMINOTRANSFERASE 53 U/L (15-37); BILIRUBIN,DIRECT 0.1 mg/dL (0.0-0.2); BILIRUBIN,TOTAL 0.6 mg/dL (0.2-1.0); CALCIUM, SERUM 9.8 mg/dL (8.5-10.1); CARBON DIOXIDE 34 mmol/L (21-32); CHLORIDE 99 mmol/L (98-107); CREATININE 7.1 mg/dL (0.6-1.3); GLUCOSE 96 mg/dL (74-106); LIPASE 272 U/L (73-393); POTASSIUM 4.5 mmol/L (3.5-5.1); SODIUM SERUM 143 mmol/L (136-145); TOTAL PROTEIN, SERUM 7.9 g/dL (6.4-8.2); UREA NITROGEN, BLOOD 53 mg/dL (7-18)
--- NOTE | 2021-03-12 12:40 | NUR ---
OUT TO CT
--- NOTE | 2021-03-12 12:46 | NUR ---
BACK FROM CT
--- NOTE | 2021-03-12 13:31 | NUR ---
RT Patient received in ER on vent settings provided by transport RT (AC 14/500/+5/40%) on Portex 8 cuffed trach. Pt tolerating current settings well. Ambu bag + back up trach at bedside. Will continue to monitor
--- NOTE | 2021-03-12 13:41 | NUR ---
COVID SWAB DONE AND SENT TO LAB
--- NOTE | 2021-03-12 16:21 | NUR ---
PATIENT CONTINUE TO BE IN STABLE CONDITION. SUCTIONED NEEDED Q2HRS. NO RESPIRATORY DISTRESS OR FACIAL GRIMACING NOTED. NO EPISODE OF COFFEE GROUND EMESIS AT THIS TIME.
[2021-03-12] MEDS ORDERED: BISACODYL SUPP (10 MG) 10 MG/SUPP.RECT SUPP.RECT RC PRN (16:30)
[2021-03-12] MEDS ORDERED: Z GUARD REMEDY 2 OZ OINT TP PRN (17:30)
[2021-03-12] MEDS ORDERED: ACETAMINOPHEN 650 MG/SUPP.RECT RC PRN (17:30)
[2021-03-12] MEDS ORDERED: ONDANSETRON HCL/PF 4 MG/2 ML VIAL IVP PRN (17:30)
--- NOTE | 2021-03-12 17:48 | NUR ---
report given to leonard arboleda.
[2021-03-12] MEDS ORDERED: DEXTROSE 50%-WATER 50 ML DISP.SYRIN IV PRN (18:00)
[2021-03-12] MEDS: BLOOD SUGAR DIAGNOSTIC 1 EACH STRIP IN SCH (18:00)
--- NOTE | 2021-03-12 18:35 | NUR ---
TRANSFERED TO TELE VIA ACLS PROTOCOL WITH NO SIGNS OF DISTRESS.
--- NOTE | 2021-03-12 19:30 | NUR ---
RN NOTE RECEIVED PATIENT IN BED, LETHARGIC, IN NO S/SX OF ACUTE DISTRESS AT THIS TIME. ON TRACH TO MECHANICAL VENT WITH SETTINGS PRESCRIBED, SATURATION AT 100%, SR ON THE MONITOR, HR IS 83. NOTED IV SITE AT R AC 18GG,PATENT AND FLUSHING WELL, NO S/S OF INFECTION OR INFILTRATION. L IJ TUNNELED HD CATH INTACT, NO SIGN OF INFECTION NOTED. NOTED GTUBE INTACT POSITIVE PLACEMENT NOTED, CLAMPED, NPO STATUS MAINTAINED. PATIENT BED ALARM IS ON. HEAD OF BED ELEVATED. BED IS LOCKED, IN LOWEST POSITION AND SIDE RAILS UP. CALL LIGHT WITHIN REACH OF THE PATIENT. WILL CONTINUE TO MONITOR AND REASSESS FOR ANY CHANGES.
[2021-03-12 20:00] VITALS: BP 122/59
[2021-03-12] MEDS: METOCLOPRAMIDE HCL 10 MG/2 ML VIAL IV SCH (20:57)
[2021-03-13] VITALS: BP 104/65
[2021-03-13] MEDS: BLOOD SUGAR DIAGNOSTIC 1 EACH STRIP IN SCH ×4 (00:42→17:52)
[2021-03-13 04:00] VITALS: BP 126/80
[2021-03-13] MEDS: METOCLOPRAMIDE HCL 10 MG/2 ML VIAL IV SCH ×3 (06:04→20:05)
[2021-03-13 06:58] LABS: CALCIUM, SERUM 9.5 mg/dL (8.5-10.1); CREATININE 5.9 mg/dL (0.6-1.3); MAGNESIUM 3.2 mg/dL (1.8-2.4); PHOSPHORUS 5.1 mg/dL (2.5-4.9); POTASSIUM 3.4 mmol/L (3.5-5.1)
[2021-03-13 07:01] LABS: BASOPHILS # (AUTO) 0.1 K/uL (0.0-0.2); BASOPHILS % (AUTO) 0.7 % (0.0-2.0); EOSINOPHILS % (AUTO) 2.7 % (0.0-6.0); HEMATOCRIT 39 % (39-51); HEMOGLOBIN 12.2 g/dL (13.5-17.5); LYMPHOCYTES # (AUTO) 0.9 K/uL (0.8-4.8); LYMPHOCYTES % (AUTO) 8.5 % (20.0-44.0); MEAN CORPUSCULAR HGB CONC 31 g/dl (31.0-36.0); MEAN CORPUSCULAR VOLUME 96 fL (80-96); MONOCYTES # (AUTO) 1.4 K/uL (0.1-1.30); MONOCYTES % (AUTO) 13.2 % (2.0-12.0); NEUTROPHILS # (AUTO) 7.7 K/uL (1.8-8.9); NEUTROPHILS % (AUTO) 74.9 % (43.0-81.0); PLATELET COUNT (AUTO) 176 K/uL (150-450); WHITE BLOOD COUNT (AUTO) 10.3 K/uL (4.3-11.0)
[2021-03-13 08:00] VITALS: BP 121/80
[2021-03-13] MEDS: PANTOPRAZOLE 40 MG VIAL IV SCH ×3 (08:42→17:31)
--- NOTE | 2021-03-13 09:15 | NUR ---
WOUND CARE CONSULT: REVIEWED CHART, NURSING DOCUMENTATION AND PHOTOS WHICH INDICATE MULTIPLE WOUNDS PRESENT ON ADMISSION. DR MARIEE AND DR LAM NOTIFIED OF SURGICAL AND DPM CONSULT REQUESTS. FIRST STEP LOW AIRLOSS MATTRESS IS ON ORDER. RECOMMENDATIONS MADE FOR SKIN PROTECTION. DISCUSSED WITH NURSING STAFF. MD IN AGREEMENT WITH PLAN OF CARE.
[2021-03-13 12:15] VITALS: BP 126/78
[2021-03-13 16:00] VITALS: BP 150/71
[2021-03-13 17:10] LABS: PROSTATE SPECIFIC ANTIGEN SCR 2.28 ng/mL (0.00-4.00); THYROID STIMULATING HORMONE 2.257 uIU/mL (0.358-3.74)
--- NOTE | 2021-03-13 19:28 | NUR ---
STAFF TRAINER CLOSING NOTE PATIENT CURRENTLY LYING IN BED, RESTING. AROUSES TO TOUCH OR SPEECH. NON VERBAL. ON TRACH TO MECHANICAL VENT WITH SETTINGS PRESCRIBED, SATURATION AT 100%, TELE MONITOR READS SR IN THE 80S. IV ACCESS TO RIGHT AC #18 - SALINE LOCKED. L IJ TUNNELED HD CATH INTACT. ON SOFT WRIST RESTRAINT ON THE RIGHT WRIST DUE TO PATIENT ATTEMPTING TO PULL AT TRACH. GTUBE NOTED - CLAMPED DUE TO NPO. WOUND CARE DONE. SAFETY MEASURES IN PLACE. CALL LIGHT WITHIN REACH. REPORT GIVEN TO VARNISH COOKER NURSE FOR DENNIS.
--- NOTE | 2021-03-13 19:30 | NUR ---
RN NOTE RECEIVED PATIENT IN BED, LETHARGIC, IN NO S/SX OF ACUTE DISTRESS AT THIS TIME. ON TRACH TO MECHANICAL VENT WITH SETTINGS PRESCRIBED, SATURATION AT 100%, SR ON THE MONITOR, HR IS 96. NOTED IV SITE AT R AC 18G,PATENT AND FLUSHING WELL, NO S/S OF INFECTION OR INFILTRATION. L IJ TUNNELED HD CATH INTACT, NO SIGN OF INFECTION NOTED. NOTED GTUBE INTACT POSITIVE PLACEMENT NOTED, CLAMPED, NPO STATUS MAINTAINED. PATIENT BED ALARM IS ON. HEAD OF BED ELEVATED. BED IS LOCKED, IN LOWEST POSITION AND SIDE RAILS UP. CALL LIGHT WITHIN REACH OF THE PATIENT. WILL CONTINUE TO MONITOR AND REASSESS FOR ANY CHANGES.
[2021-03-13 20:00] VITALS: BP 142/88
--- NOTE | 2021-03-13 21:00 | NUR ---
RN NOTE TELEPHONE CALL TO PT'S DAUGHTER, MAC MCNEIL AT [phone] TO VERIFY SHE IS CONSENTING FOR EGD PROCEDURE FOR HER FATHER. SHE SAID SHE WANTED TO SPEAK WITH THE MD FIRST THING IN AM BEFORE SHE DECIDES. WILL ENDORSE TO AM SHIFT TO ADDRESS.
[2021-03-14] VITALS: BP 127/84
[2021-03-14] MEDS: BLOOD SUGAR DIAGNOSTIC 1 EACH STRIP IN SCH ×5 (00:36→23:39)
[2021-03-14 04:00] VITALS: BP 150/98
[2021-03-14] MEDS: METOCLOPRAMIDE HCL 10 MG/2 ML VIAL IV SCH ×3 (05:52→20:23)
[2021-03-14 06:45] LABS: EOSINOPHILS % (AUTO) 2.7 % (0.0-6.0); HEMATOCRIT 43 % (39-51); HEMOGLOBIN 13.4 g/dL (13.5-17.5); LYMPHOCYTES % (AUTO) 9.9 % (20.0-44.0); MEAN CORPUSCULAR HGB CONC 31 g/dl (31.0-36.0); MEAN CORPUSCULAR VOLUME 95 fL (80-96); MONOCYTES % (AUTO) 11.9 % (2.0-12.0); NEUTROPHILS % (AUTO) 74.5 % (43.0-81.0); PLATELET COUNT (AUTO) 208 K/uL (150-450); RED BLOOD CELL COUNT(AUTO) 4.53 MIL/uL (4.5-6.0); WHITE BLOOD COUNT (AUTO) 10.2 K/uL (4.3-11.0)
[2021-03-14 06:46] LABS: BASOPHILS # (AUTO) 0.1 K/uL (0.0-0.2); MONOCYTES # (AUTO) 1.2 K/uL (0.1-1.30); NEUTROPHILS # (AUTO) 7.6 K/uL (1.8-8.9)
[2021-03-14 07:09] LABS: CALCIUM, SERUM 9.5 mg/dL (8.5-10.1); MAGNESIUM 3.3 mg/dL (1.8-2.4); PHOSPHORUS 5.8 mg/dL (2.5-4.9); POTASSIUM 3.8 mmol/L (3.5-5.1)
[2021-03-14 07:13] LABS: CREATININE 7.9 mg/dL (0.6-1.3)
--- NOTE | 2021-03-14 07:15 | NUR ---
RN OPENING NOTE Received patient asleep in bed appears calm and relaxed. On Portex 8 AC 14 TV 500 FIO2 40% PEEP 5. Patient obtunded. Tele reading 110 ST. HD will be done today. Noted with R wrist soft wrist restraints. With dressing on both heels and R foot. Has RAC #18 flushes well dressing intact. LIJ HD cath dressing intact. No signs of pain or discomfort. Safety measures maintained. Will cont to monitor.
[2021-03-14 08:00] VITALS: BP 150/97
[2021-03-14] MEDS: PANTOPRAZOLE 40 MG VIAL IV SCH ×2 (08:41→16:06)
[2021-03-14] MEDS: SILVER SULFADIAZINE 50 GM JAR TP SCH (08:42)
[2021-03-14] MEDS ORDERED: MIDAZOLAM HCL 2 MG/2ML VIAL ONE (09:34)
--- NOTE | 2021-03-14 10:06 | NUR ---
PT CURRENTLY ON DIALYSIS, CT ON HOLD PER RN
[2021-03-14 10:07] LABS: IMMUNOGLOBULIN A, SERUM 397 mg/dL (61-437); IMMUNOGLOBULIN G, SERUM 1175 mg/dL (603-1613); IMMUNOGLOBULIN M, SERUM 75 mg/dL (20-172)
--- NOTE | 2021-03-14 10:15 | NUR ---
Consent for EGD from daughter signed by 2 RNs, placed in the chart.
[2021-03-14 12:00] VITALS: BP 158/97
[2021-03-14] MEDS: EPOETIN ALFA (4000 UNIT) 4,000 UNIT/ML VIAL IJ SCH (14:12)
[2021-03-14 16:00] VITALS: BP 145/94
--- NOTE | 2021-03-14 16:49 | NUR ---
Daughter was hesitant to give consent to the CT chest with contrast. she is afraid patient will undergo unnecessary procedure.
--- NOTE | 2021-03-14 17:25 | NUR ---
Blood sugar is 67 started D5 1/2 NS at 60ml/hr. Will cont to monitor.
[2021-03-14] MEDS: IV D5/0.45 NACL 1,000 ML IV PRN (17:41)
--- NOTE | 2021-03-14 18:27 | NUR ---
Blood Sugar now 75 will cont to monitor.
--- NOTE | 2021-03-14 19:10 | NUR ---
RN CLOSING NOTE Patient in bed calm and relaxed. No signs of distress. No change to vent settings. Suction as needed. No signs of pain or discomfort. All due meds given. D5 1/2 NS running at 60ml/hr tolerating well. Report given to lieutenant shift supervisor for steve.
--- NOTE | 2021-03-14 19:30 | NUR ---
RN NOTE RECEIVED PATIENT IN BED OBTUNDED CONTRACTED, EYES OPEN,NON VERBAL ON MECHANICAL VENT O2:98% IV SITE IS ON RIGHT AC INTACT PATENT ON IV HYDRATION D51/2NS @60CC/HR,HEAD OF THE BED ELEVATED,NPO,HOLD FEEDING FOR UPCOMING EGD ON TUESDAY,SAFETY MEASURE IMPLEMENT BED IN LOW POSITON AND LOCKED CONTINUE TO MONITOR.
[2021-03-14 20:00] VITALS: BP 154/99
--- NOTE | 2021-03-14 20:13 | NUR ---
PER RN, UNABLE TO GET CONSENT FOR CT EXAM. THE PATIENTS FAMILY IS REFUSING THE EXAM.
[2021-03-15] VITALS: BP 126/92
[2021-03-15 04:00] VITALS: BP 141/67
[2021-03-15] MEDS: METOCLOPRAMIDE HCL 10 MG/2 ML VIAL IV SCH ×3 (05:33→21:04)
[2021-03-15] MEDS: BLOOD SUGAR DIAGNOSTIC 1 EACH STRIP IN SCH ×3 (05:40→17:44)
--- NOTE | 2021-03-15 06:37 | NUR ---
RN NOTE PATIENT REMAINS ON OBTUNDED CONFUSED ON VENT NO SOB NOT ACUTE DISTRESS NOTED,ON IV HYDRATION D51/2NS 60CC/HR KEPT CLEAN AND DRY ALL THE TIME KEPT COMFORTABLE REPOSITONED EVERY 2 HOURS ENDORSE NEXT COMING SHIFT FOR CONTINUATION OF CARE.
[2021-03-15 06:40] LABS: BASOPHILS # (AUTO) 0.1 K/uL (0.0-0.2); BASOPHILS % (AUTO) 0.9 % (0.0-2.0); EOSINOPHILS % (AUTO) 3.6 % (0.0-6.0); HEMATOCRIT 42 % (39-51); HEMOGLOBIN 13.1 g/dL (13.5-17.5); LYMPHOCYTES # (AUTO) 0.7 K/uL (0.8-4.8); LYMPHOCYTES % (AUTO) 9.9 % (20.0-44.0); MEAN CORPUSCULAR HGB CONC 31 g/dl (31.0-36.0); MEAN CORPUSCULAR VOLUME 95 fL (80-96); MONOCYTES % (AUTO) 13.3 % (2.0-12.0); NEUTROPHILS # (AUTO) 5.5 K/uL (1.8-8.9); NEUTROPHILS % (AUTO) 72.3 % (43.0-81.0); PLATELET COUNT (AUTO) 186 K/uL (150-450); RED BLOOD CELL COUNT(AUTO) 4.37 MIL/uL (4.5-6.0); WHITE BLOOD COUNT (AUTO) 7.6 K/uL (4.3-11.0)
[2021-03-15 07:30] LABS: MAGNESIUM 2.9 mg/dL (1.8-2.4); POTASSIUM 3.8 mmol/L (3.5-5.1)
--- NOTE | 2021-03-15 07:30 | NUR ---
RN OPENING NOTES Patient received in bed and opens eyes to verbal and physical stimuli. Patient is on mechanical vent with saturation of 96%. No grimacing or moaning noted. Patient is NPO for EGD.. Patient noted with right ac 18 gauze, patent and flushes well, running D5/1/2 NORMAL SALINE at 60 cc/hour. HOB kept elevated. Call light with in reach. Will continue to monitor.
[2021-03-15 08:00] VITALS: BP 133/67
[2021-03-15 08:30] LABS: CALCIUM, SERUM 9.2 mg/dL (8.5-10.1)
[2021-03-15] MEDS: PANTOPRAZOLE 40 MG VIAL IV SCH ×2 (08:51→17:45)
[2021-03-15] MEDS: SILVER SULFADIAZINE 50 GM JAR TP SCH (08:51)
[2021-03-15 12:00] VITALS: BP 135/85
[2021-03-15] MEDS: INSULIN REGULAR, HUMAN 100 UNIT/ML 3 ML VIAL SQ PRN ×2 (12:00→17:44)
[2021-03-15] MEDS ORDERED: IV NS 0.9% 250 ML IV ONE (12:19)
[2021-03-15] MEDS ORDERED: IOHEXOL-300 100 ML VIAL IV ONE (12:19)
[2021-03-15] MEDS: IV D5/0.45 NACL 1,000 ML IV PRN (13:05)
[2021-03-15 18:00] VITALS: BP 132/70
--- NOTE | 2021-03-15 18:34 | NUR ---
RN CLOSING NOTES Patient resting in bedand opens eyes to verbal and physical stimuli. Patient is on mechanical vent with saturation of 96%. No grimacing or moaning noted.Patient is NPO and on iv fluids running at 60 cc/hour. No s/s of hypoglycemia during shift.Patient noted with right ac 18 gauze, patent and flushes well. Patient will be having EGD IN AM and hemodialysis to not be done before procedure. HOB kept elevated. Call light with in reach. Will continue to monitor. Will endorse to next shift.
[2021-03-15 20:00] VITALS: BP 151/82
--- NOTE | 2021-03-15 20:00 | NUR ---
LIQUID CHLORINE OPERATOR NOTES RECEIVED PATIENT IN BED, RESTING, RESPONDS TO VERBAL AND PHYSICAL STIMULI. NON VERBAL. BREATHING EVEN AND UNLABORED, NO SOB NOTED. PATIENT ON MECHANICAL VENTILATION WITH O2 SATURATION OF 100 PERCENT. SINUS RHYTHM WITH HR OF 98. SKIN IS WARM AND DRY TO TOUCH. AFEBRILE. NO FACIAL GRIMACING NOTED. NOTED WITH RIGHT ANTECUBITAL IV ACCESS, PATENT, AND LEFT UPPER CHEST HD CATHETER. CURRENTLY ON D5 1/2 NS @ 60 ML/HR. NO BLEEDING NOTED. CALL LIGHT WITHIN REACH.
[2021-03-16] VITALS: BP 156/96
[2021-03-16] MEDS: BLOOD SUGAR DIAGNOSTIC 1 EACH STRIP IN SCH ×4 (00:01→18:26)
[2021-03-16] MEDS: INSULIN REGULAR, HUMAN 100 UNIT/ML 3 ML VIAL SQ PRN (00:56)
[2021-03-16 04:00] VITALS: BP 152/77
[2021-03-16] MEDS: METOCLOPRAMIDE HCL 10 MG/2 ML VIAL IV SCH ×3 (05:29→22:36)
[2021-03-16 06:51] LABS: BASOPHILS # (AUTO) 0.1 K/uL (0.0-0.2); BASOPHILS % (AUTO) 0.7 % (0.0-2.0); EOSINOPHILS % (AUTO) 3.7 % (0.0-6.0); HEMATOCRIT 40 % (39-51); HEMOGLOBIN 12.4 g/dL (13.5-17.5); LYMPHOCYTES # (AUTO) 0.9 K/uL (0.8-4.8); MEAN CORPUSCULAR HGB CONC 31 g/dl (31.0-36.0); MEAN CORPUSCULAR VOLUME 95 fL (80-96); MONOCYTES # (AUTO) 0.9 K/uL (0.1-1.30); MONOCYTES % (AUTO) 10.1 % (2.0-12.0); NEUTROPHILS # (AUTO) 6.9 K/uL (1.8-8.9); NEUTROPHILS % (AUTO) 75.5 % (43.0-81.0); PLATELET COUNT (AUTO) 195 K/uL (150-450); RED BLOOD CELL COUNT(AUTO) 4.19 MIL/uL (4.5-6.0); WHITE BLOOD COUNT (AUTO) 9.1 K/uL (4.3-11.0)
--- NOTE | 2021-03-16 07:05 | NUR ---
SERVICING REP NOTES NO SIGNIFICANT CHANGES OF PATIENT CONDITION DURING SHIFT. PATIENT TOLERATED VENTILATION SETTING WELL. NO DISTRESS OR FACIAL GRIMACING NOTED. OXYGEN SATURATION AT 100 PERCENT. ON TELE MONITORING WITH SINUS RHYTHM, HR OF 62. IV FLUIDS INFUSING. NO SYMPTOMS OF ASPIRATION. REPOSITIONED Q2 HOURS. KEPT DRY AND CLEAN. ALL NEEDS ATTENDED. SIDE RAILS UP. CALL LIGHT WITHIN REACH. ENDORSED TO DAY SHIFT NURSE ACCORDINGLY FOR CONTINUITY OF CARE.
[2021-03-16 07:13] LABS: CALCIUM, SERUM 9.1 mg/dL (8.5-10.1); PHOSPHORUS 5.4 mg/dL (2.5-4.9); POTASSIUM 4.1 mmol/L (3.5-5.1)
--- NOTE | 2021-03-16 07:40 | NUR ---
RN NOTES PT FOUND IN SEMI FOWLERS POSITION DISPLAYING NO S/S OF DISTRESS, FLACC = 0 AND BILATERAL RISE AND FALL OF CHEST ON THE VENT. SR ON THE MONITOR. TRACH CLEANED. PT ON FSM AND TURNED Q2. SAFETY MEASURES IN PLACE, BED LOCKED AND IN LOWEST POSITION, SIDE RAILS UPX2, CALL LIGHT WITHIN REACH, BED ALARM ARMED. RN WILL TREAT AND MONITOR THROUGHOUT SHIFT.
[2021-03-16 07:50] LABS: CREATININE 8.8 mg/dL (0.6-1.3)
[2021-03-16 08:00] VITALS: BP 143/90
[2021-03-16 08:06] LABS: *SPE A/G RATIO 0.9 (0.7-1.7); *SPE ALPHA-1-GLOBULIN 0.4 g/dL (0.0-0.4); *SPE ALPHA-2-GLOBULIN 0.8 g/dL (0.4-1.0); *SPE BETA GLOBULIN 1.3 g/dL (0.7-1.3); *SPE M-SPIKE Not Observed g/dL (Not Observed)
[2021-03-16] MEDS: PANTOPRAZOLE 40 MG VIAL IV SCH ×2 (09:51→18:26)
[2021-03-16] MEDS: SILVER SULFADIAZINE 50 GM JAR TP SCH (09:51)
[2021-03-16] MEDS ORDERED: IV NS 0.9% 250 ML IV ONE (10:53)
[2021-03-16] MEDS ORDERED: IOHEXOL-300 100 ML VIAL IV ONE (10:53)
[2021-03-16] MEDS ORDERED: ANESTHESIA TRAY IN PYXIS 1 EA TRAY MC ONE ×2 (11:13→17:59)
[2021-03-16 12:00] VITALS: BP 115/88
[2021-03-16 16:00] VITALS: BP 158/86
[2021-03-16] MEDS ORDERED: ACETAMINOPHEN 650 MG/20.3 ML UDC GT PRN (16:00)
[2021-03-16] MEDS ORDERED: MAGNESIUM HYDROXIDE 30 ML UDC GT PRN (16:00)
[2021-03-16] MEDS ORDERED: MIDODRINE HCL (5MG) 5 MG TABLET GT PRN (16:30)
[2021-03-16] MEDS: SEVELAMER CARBONATE 800 MG POWD.PACK GT SCH (18:26)
--- NOTE | 2021-03-16 19:10 | NUR ---
RN NOTES PT FOUND IN SEMI FOWLERS POSITION DISPLAYING NO S/S OF DISTRESS, FLACC = 0 AND BILATERAL RISE AND FALL OF CHEST ON THE VENT. SR ON THE MONITOR. PT STILL A&OX0 APHASIC. PT ON FSM AND TURNED Q2. SAFETY MEASURES IN PLACE, SBAR AND REPORT GIVEN TO ENGLISH TEACHER RN. ALL QUESTIONS ANSWERED. PT ENDORSED IN STABLE CONDITION FOR DENNIS.
--- NOTE | 2021-03-16 19:30 | NUR ---
RN NOTES, RECEIVED PATIENT IN BED RECEIVING HD AT THIS TIME, NO DISTRESS NOTED/NO SOB/ PATIENT IN MECHANICAL VENTILATOR, WILL CONTINUE TO MONITOR CLOSELY.
[2021-03-16 20:00] VITALS: BP 160/101
--- NOTE | 2021-03-16 20:04 | NUR ---
RT NOTE PT RECEIVED TRACH'D VIA PORTEX # 8 CUFFED AND ON [facility] VENT ON ORDERED SETTINGS. BMV AND SPARE TRACH @ HOB. ALARMS ARE SET AND AUDIBLE. TRACH IS PATENT AND SECURE. NO RESP DISTRESS NOTED @ THIS TIME. Addendum: 03/16/21 at 2014 by DORITA CROSS RT Amended: Links added.
[2021-03-16] MEDS: NEPRO 1,000 ML BOTTLE GT PRN (22:30)
[2021-03-16] MEDS: VIT B CMPLX 3/FA/VIT C/BIOTIN 1 TAB TABLET GT SCH (22:37)
[2021-03-17] VITALS: BP_SYST 135; BP_SYST 137; BP_DIAS 87; BP_DIAS 89
[2021-03-17] MEDS: BLOOD SUGAR DIAGNOSTIC 1 EACH STRIP IN SCH ×4 (00:47→18:00)
[2021-03-17] MEDS: INSULIN REGULAR, HUMAN 100 UNIT/ML 3 ML VIAL SQ PRN ×2 (00:48→05:37)
[2021-03-17 04:00] VITALS: BP 133/90
[2021-03-17] MEDS: METOCLOPRAMIDE HCL 10 MG/2 ML VIAL IV SCH ×3 (05:18→22:37)
--- NOTE | 2021-03-17 07:15 | NUR ---
RN NOTES, NO CHANGE SIGNIFICANT CHANGE IN CONDITION DURING THE NIGHT, ENDORSED TO YAMIL FORREST FOR CONTINUATION OF CARE, HD LAST NIGHT 1L REMOVED.
[2021-03-17 07:22] LABS: BASOPHILS # (AUTO) 0.1 K/uL (0.0-0.2); BASOPHILS % (AUTO) 0.9 % (0.0-2.0); EOSINOPHILS % (AUTO) 4.1 % (0.0-6.0); HEMATOCRIT 40 % (39-51); HEMOGLOBIN 12.6 g/dL (13.5-17.5); LYMPHOCYTES # (AUTO) 0.8 K/uL (0.8-4.8); LYMPHOCYTES % (AUTO) 9.2 % (20.0-44.0); MEAN CORPUSCULAR HGB CONC 32 g/dl (31.0-36.0); MEAN CORPUSCULAR VOLUME 94 fL (80-96); MONOCYTES # (AUTO) 0.9 K/uL (0.1-1.30); MONOCYTES % (AUTO) 10.3 % (2.0-12.0); NEUTROPHILS # (AUTO) 6.4 K/uL (1.8-8.9); NEUTROPHILS % (AUTO) 75.5 % (43.0-81.0); PLATELET COUNT (AUTO) 168 K/uL (150-450); RED BLOOD CELL COUNT(AUTO) 4.26 MIL/uL (4.5-6.0); WHITE BLOOD COUNT (AUTO) 8.5 K/uL (4.3-11.0)
--- NOTE | 2021-03-17 07:30 | NUR ---
RN NOTES PT FOUND IN SEMI FOWLERS POSITION DISPLAYING NO S/S OF DISTRESS, FLACC = 0 AND BILATERAL RISE AND FALL OF CHEST ON THE VENT. SR ON THE MONITOR. PT STILL A&OX0 APHASIC. PT ON FSM AND TURNED Q2. SAFETY MEASURES IN PLACE, BED LOCKED AND IN LOWEST POSITION, SIDE RAILS UPX2, CALL LIGHT WITHIN REACH, BED ALARM ARMED. RN WILL MONITOR AND TREAT THROUGHOUT SHIFT.
[2021-03-17 08:00] VITALS: BP 127/90
[2021-03-17] MEDS: SEVELAMER CARBONATE 800 MG POWD.PACK GT SCH ×3 (08:42→18:00)
[2021-03-17] MEDS: DOCUSATE SODIUM LIQ 100 MG/10 ML UDC GT SCH (08:42)
[2021-03-17] MEDS: FERROUS SULFATE UDC 300 MG/5 ML UDC GT SCH (08:42)
[2021-03-17] MEDS: ASCORBIC ACID 500 MG TABLET GT SCH (08:42)
[2021-03-17] MEDS: SILVER SULFADIAZINE 50 GM JAR TP SCH (08:43)
[2021-03-17] MEDS: PANTOPRAZOLE 40 MG VIAL IV SCH ×2 (08:43→18:00)
[2021-03-17] MEDS: CYANOCOBALAMIN 500 MCG TABLET GT SCH (08:43)
[2021-03-17 08:44] LABS: MAGNESIUM 2.8 mg/dL (1.8-2.4); PHOSPHORUS 5.2 mg/dL (2.5-4.9); POTASSIUM 3.4 mmol/L (3.5-5.1)
[2021-03-17 12:00] VITALS: BP 146/86
[2021-03-17] MEDS: EPOETIN ALFA (4000 UNIT) 4,000 UNIT/ML VIAL IJ SCH (15:00)
--- NOTE | 2021-03-17 15:25 | NUR ---
RN NOTE EPO NOT GIVEN, PT'S HGB IS 12.6 ABOVE THE CONSTRUCTION ANALYST ORDER OF HOLD IF > 11
[2021-03-17 16:00] VITALS: BP 143/89
[2021-03-17] MEDS: NEPRO 1,000 ML BOTTLE GT PRN (18:41)
--- NOTE | 2021-03-17 19:20 | NUR ---
RN NOTES PT FOUND IN SEMI FOWLERS POSITION DISPLAYING NO S/S OF DISTRESS, FLACC = 0 AND BILATERAL RISE AND FALL OF CHEST ON THE VENT. SR ON THE MONITOR. PT STILL A&OX0 APHASIC. SBAR AND REPORT GIVEN TO BRANCH STORE MANAGER RN. ALL QUESTIONS ANSWERED. PT ENDORSED IN STABLE CONDITION FOR DENNIS
[2021-03-17] MEDS: THERAHONEY GEL 1.5 OZ TUBE TP SCH (19:55)
[2021-03-17 22:00] VITALS: BP 136/87
[2021-03-17] MEDS: VIT B CMPLX 3/FA/VIT C/BIOTIN 1 TAB TABLET GT SCH (22:37)
[2021-03-18] VITALS: BP 135/89
[2021-03-18] MEDS: BLOOD SUGAR DIAGNOSTIC 1 EACH STRIP IN SCH ×4 (00:07→18:20)
[2021-03-18] MEDS: INSULIN REGULAR, HUMAN 100 UNIT/ML 3 ML VIAL SQ PRN ×4 (00:07→18:20)
[2021-03-18 04:00] VITALS: BP 136/90
[2021-03-18] MEDS: METOCLOPRAMIDE HCL 10 MG/2 ML VIAL IV SCH ×3 (05:26→21:44)
[2021-03-18 06:50] LABS: BASOPHILS # (AUTO) 0.1 K/uL (0.0-0.2); BASOPHILS % (AUTO) 0.6 % (0.0-2.0); EOSINOPHILS % (AUTO) 4.8 % (0.0-6.0); HEMATOCRIT 40 % (39-51); HEMOGLOBIN 12.5 g/dL (13.5-17.5); LYMPHOCYTES # (AUTO) 0.8 K/uL (0.8-4.8); LYMPHOCYTES % (AUTO) 8.6 % (20.0-44.0); MEAN CORPUSCULAR HGB CONC 32 g/dl (31.0-36.0); MEAN CORPUSCULAR VOLUME 93 fL (80-96); MONOCYTES % (AUTO) 10.5 % (2.0-12.0); NEUTROPHILS # (AUTO) 7.5 K/uL (1.8-8.9); NEUTROPHILS % (AUTO) 75.5 % (43.0-81.0); PLATELET COUNT (AUTO) 182 K/uL (150-450); RED BLOOD CELL COUNT(AUTO) 4.24 MIL/uL (4.5-6.0); WHITE BLOOD COUNT (AUTO) 9.9 K/uL (4.3-11.0)
--- NOTE | 2021-03-18 07:22 | NUR ---
RN OPENING NOTES; RECEIVED PT IN BED, OBTUNDED. IN SUPINE POS. PT ON TRACH. NO SOB NOTED, NO DISTRESS NOTED EVIDENCE BY PT FACIAL EXPRESSIONS. B HEELS, R LATERAL MID FOOT, SACRAL WOUND NOTED. PT IS ON NEPRO 1.8 @ 71ML/HR. R AC PATENT, WITH NO SIGNS OF INFILTRATION. PT ON ACCUCHECK. PT ON R SOFT RESTRAINT, RENEWED AT 06:30A. SAFETY MEASURES RENDERED, BED IN LOWEST POS. LOCKED, WITH CALL LIGHT WITHIN REACH. WILL CONTINUE TO MONITOR.
[2021-03-18 07:24] LABS: BILIRUBIN,TOTAL 0.5 mg/dL (0.2-1.0); CALCIUM, SERUM 8.9 mg/dL (8.5-10.1); MAGNESIUM 2.9 mg/dL (1.8-2.4); POTASSIUM 3.5 mmol/L (3.5-5.1); TOTAL PROTEIN, SERUM 7.4 g/dL (6.4-8.2)
[2021-03-18 07:34] LABS: CREATININE 8.6 mg/dL (0.6-1.3)
[2021-03-18 08:00] VITALS: BP 142/62
[2021-03-18] MEDS: SILVER SULFADIAZINE 50 GM JAR TP SCH (08:51)
[2021-03-18] MEDS: THERAHONEY GEL 1.5 OZ TUBE TP SCH (08:52)
[2021-03-18] MEDS: SEVELAMER CARBONATE 800 MG POWD.PACK GT SCH ×3 (08:52→16:23)
[2021-03-18] MEDS: PANTOPRAZOLE 40 MG VIAL IV SCH ×2 (08:53→16:23)
[2021-03-18] MEDS: DOCUSATE SODIUM LIQ 100 MG/10 ML UDC GT SCH (08:53)
[2021-03-18] MEDS: CYANOCOBALAMIN 500 MCG TABLET GT SCH (08:53)
[2021-03-18] MEDS: FERROUS SULFATE UDC 300 MG/5 ML UDC GT SCH (08:53)
[2021-03-18] MEDS: ASCORBIC ACID 500 MG TABLET GT SCH (08:55)
[2021-03-18] MEDS: IV D5/0.45 NACL 1,000 ML IV PRN (09:37)
--- NOTE | 2021-03-18 11:13 | NUR ---
RN NOTES BLOOD SUGAR TAKEN RESULTS: 101 NO INSULIN NEEDED PER SLIDING SCALE
[2021-03-18 12:00] VITALS: BP 138/88
[2021-03-18] MEDS: NEPRO 1,000 ML BOTTLE GT PRN (12:16)
[2021-03-18 16:00] VITALS: BP 134/90
--- NOTE | 2021-03-18 18:21 | NUR ---
RN NOTES BLOOD SUGAR TAKEN RESULTS: 89 NO INSULIN NEEDED PER SLIDING SCALE
--- NOTE | 2021-03-18 18:51 | NUR ---
COMMUNITY ASSOCIATE NOTES PT WAITING FOR AMBULANCE TO BE D/C TO [facility]. D/C INSTRUCTIONS GIVEN REPORT TO RN AT SNF. ENDORSED TO FLORIST SUPPLIES SALESPERSON RN
--- NOTE | 2021-03-18 19:37 | NUR ---
193 RECEIVED A CALL FROM CAROLINE OIL BURNER INSTALLER OF [facility] AND PER HER THEY CANNOT ACCEPT PATIENT DUE TO LACK OF STAFF. LUCILA BECK FROM CASE MANAGEMENT MADE AWARE AND SHE SAID CALL [place] TO CANCEL TRANSPORT. CALLED [facility] AND CANCELLED TRANSPORTATION C/O TICO.
[2021-03-18 20:00] VITALS: BP 136/94
[2021-03-18] MEDS: VIT B CMPLX 3/FA/VIT C/BIOTIN 1 TAB TABLET GT SCH (21:44)
--- NOTE | 2021-03-18 22:05 | NUR ---
2205 ARRANGED TRANSPORTATION WITH [facility] C/O [place] FOR 1100 INSERT CUTTER.
[2021-03-19] VITALS: BP 136/94
[2021-03-19] MEDS: BLOOD SUGAR DIAGNOSTIC 1 EACH STRIP IN SCH ×2 (00:14→05:49)
[2021-03-19 04:00] VITALS: BP 140/95
[2021-03-19] MEDS: METOCLOPRAMIDE HCL 10 MG/2 ML VIAL IV SCH (05:48)
[2021-03-19] MEDS: NEPRO 1,000 ML BOTTLE GT PRN (05:48)
--- NOTE | 2021-03-19 07:09 | NUR ---
RN CLOSING NOTE PT WAS STABLE THROUGHOUT SHIFT, REMAINS ON SAME VENT SETTINGS, NO CHANGE. TOLERATING WELL NO DISTRESS NOTED. BED BATH DONE, WOUND CARE DONE, TURNED AND REPOSITIONED. ORAL CARE DONE. WOUND DRESSINGS INTACT. ALL NEEDS ATTENDED, NO S/S OF PAIN. ALL MEDS ADMINISTERED ORDERED. SAFETY MEASURES IN PLACE. HOB ELEVATED. SIDE RAILS UP X2, BED LOCKED IN LOWEST POSITION WITH BED ALARM ON. PT REMAINS WITH IV INTACT. REPORT GIVEN TO DAY SHIFT RN FOR CONTINUATION OF CARE
--- NOTE | 2021-03-19 07:36 | NUR ---
RN OPENING NOTES; PT IS OBTUNDED. IN SUPINE POS. PT ON TRACH G8,14,500,40,5 SAT @ 100%. NO DISTRESS NOTED. B HEELS, R LATERAL MID FOOT, SACRAL WOUND NOTED. PT IS ON NEPRO 1.8 @ 71ML/HR. R AC PATENT, WITH NO SIGNS OF INFILTRATION. PT ON ACCUCHECK. PT ON R SOFT RESTRAINT, RENEWED AT 06:30A. SAFETY MEASURES RENDERED, BED IN LOWEST POS. LOCKED, WITH CALL LIGHT WITHIN REACH. WILL CONTINUE TO MONITOR. PT TO BE DISCHARGED, ALL PAPERWORK DONE, REPORT GIVEN TO SNF. AMBULANCE CARPENTER MATE IS AT 11AM.
[2021-03-19 08:00] VITALS: BP 152/89
[2021-03-19] MEDS: THERAHONEY GEL 1.5 OZ TUBE TP SCH (08:58)
[2021-03-19] MEDS: SILVER SULFADIAZINE 50 GM JAR TP SCH (08:58)
[2021-03-19] MEDS: PANTOPRAZOLE 40 MG VIAL IV SCH (08:59)
[2021-03-19] MEDS: SEVELAMER CARBONATE 800 MG POWD.PACK GT SCH (08:59)
[2021-03-19] MEDS: ASCORBIC ACID 500 MG TABLET GT SCH (08:59)
[2021-03-19] MEDS: FERROUS SULFATE UDC 300 MG/5 ML UDC GT SCH (08:59)
[2021-03-19] MEDS: CYANOCOBALAMIN 500 MCG TABLET GT SCH (08:59)
[2021-03-19] MEDS: DOCUSATE SODIUM LIQ 100 MG/10 ML UDC GT SCH (08:59)
--- NOTE | 2021-03-19 11:46 | NUR ---
STUFFER NOTES; PT DC'D TO SNF IN STABLE CONDITION. DC INSTRUCTIONS GIVEN AND EXPLAINED TO SNF RN. ALL PAPER WORK SIGNED AND COMPLETED. ALL BELONGINGS SENT. PT LEFT WITH AMBULANCE IN STABLE CONDITION.
== END 2021-03-19 11:57 | DRG 952 ==
LOC: ER 10:36 → TRANSITION 17:18 → TELE1 17:37
PROVIDERS: ADMIT Nurse Practitioner Family
PROC: 5A1955Z Respiratory Ventilation, Greater than 96 Consecutive Hours (ICD-10-PCS; principal; 2021-03-12)
PROC: 5A1D70Z Performance of Urinary Filtration, Intermittent, Less than 6 Hours Per Day (ICD-10-PCS; 2021-03-12)
PROC: 0DB68ZX Excision of Stomach, Via Natural or Artificial Opening Endoscopic, Diagnostic (ICD-10-PCS; 2021-03-16)
PROC: 07B13ZX Excision of Right Neck Lymphatic, Percutaneous Approach, Diagnostic (ICD-10-PCS; 2021-03-17)
PROC: 0JBR0ZZ Excision of Left Foot Subcutaneous Tissue and Fascia, Open Approach (ICD-10-PCS; 2021-03-18)
PROC: 0JBQ0ZZ Excision of Right Foot Subcutaneous Tissue and Fascia, Open Approach (ICD-10-PCS; 2021-03-18)
PROC: 0JB70ZZ Excision of Back Subcutaneous Tissue and Fascia, Open Approach (ICD-10-PCS; 2021-03-18)
DX: K92.2 Gastrointestinal hemorrhage, unspecified (principal); G93.41 Metabolic encephalopathy; J96.10 Chronic respiratory failure, unspecified whether with hypoxia or hypercapnia; L89.154 Pressure ulcer of sacral region, stage 4; J90 Pleural effusion, not elsewhere classified; E44.1 Mild protein-calorie malnutrition; I12.0 Hypertensive chronic kidney disease with stage 5 chronic kidney disease or end stage renal disease; L89.319 Pressure ulcer of right buttock, unspecified stage; E11.22 Type 2 diabetes mellitus with diabetic chronic kidney disease; L89.329 Pressure ulcer of left buttock, unspecified stage; E88.09 Other disorders of plasma-protein metabolism, not elsewhere classified; D64.9 Anemia, unspecified; E11.621 Type 2 diabetes mellitus with foot ulcer; N18.6 End stage renal disease; Z93.0 Tracheostomy status; Z93.1 Gastrostomy status; I69.354 Hemiplegia and hemiparesis following cerebral infarction affecting left non-dominant side; E11.40 Type 2 diabetes mellitus with diabetic neuropathy, unspecified; Z99.11 Dependence on respirator [ventilator] status; Z99.2 Dependence on renal dialysis; D72.821 Monocytosis (symptomatic); E11.51 Type 2 diabetes mellitus with diabetic peripheral angiopathy without gangrene; E78.5 Hyperlipidemia, unspecified; Z20.822 Contact with and (suspected) exposure to COVID-19; R13.10 Dysphagia, unspecified; J98.11 Atelectasis; K59.00 Constipation, unspecified; L97.419 Non-pressure chronic ulcer of right heel and midfoot with unspecified severity; L97.429 Non-pressure chronic ulcer of left heel and midfoot with unspecified severity; Z74.01 Bed confinement status; M24.562 Contracture, left knee; M24.561 Contracture, right knee; Z68.23 Body mass index [BMI] 23.0-23.9, adult; N20.0 Calculus of kidney; Z79.4 Long term (current) use of insulin; Z86.718 Personal history of other venous thrombosis and embolism; Z95.820 Peripheral vascular angioplasty status with implants and grafts; D72.829 Elevated white blood cell count, unspecified; R59.1 Generalized enlarged lymph nodes; E11.69 Type 2 diabetes mellitus with other specified complication; M86.671 Other chronic osteomyelitis, right ankle and foot; M24.522 Contracture, left elbow; M24.521 Contracture, right elbow; K29.70 Gastritis, unspecified, without bleeding
CPT/HCPCS: 31720; 36415; 70491-TC; 71045-TC; 71260-TC; 76942-TC; 77075-TC; 80048-TC; 80053-TC; 80076-TC; 82378; 82728-TC; 82784; 82962-TC; 83540-TC; 83690-TC; 83735-TC; 84100-TC; 84153-TC; 84154-TC; 84155; 84165; 84443-TC; 84484-TC; 85025-TC; 85610-TC; 85730-TC; 86334; 86706; 86803; 86850-TC; 87081-TC; 87340; 88104-TC; 88305-TC; 88313-TC; 88333-TC; 88342; 90935-TC; 94002-TC; 94003-TC; 94760-TC; 94762-TC; 94799-TC; 99082-TC; A4623; A6253; A6403; A7526; C9113; G0378; J0696; J0885; J1815; J2250; J2405; J2704; J2765; J3490; J7030; J7050; Q9967; U0003

== ENCOUNTER 2021-05-20 12:26 | Inpatient (IN) | payer MEDICAID ==
[~2021-05-20] VITALS: Ht 182.9 cm; Wt 73.5 kg
[~2021-05-20 12:26] MED LIST changes: -ACID1TAB12 GT; +ASCO500C17 GT; -CHLO473M5 MM; -COLL30OI TP; +CYAN500T64 GT; +EPOE4000 IJ; -EPOE40007 IV; +FERR325T23 GT; -Ipratropium Bromide IH; -MERO500V23 IV; -METO5VIA6 IV; -ONDA4TAB5 GT; -Prosource GT; -Silver Sulfadiazine Cream TP; -VANC1VIA34 XX; -ZINC1CAP2 GT; +[UNRECOGNIZED DRUG - CODE] GT
--- NOTE | 2021-05-20 12:37 | NUR ---
BIB [facility] FOR BLEEDING FROM HIS L [facility] HD CATH DURING HEMODIALYSIS TODAY. AAOX0, NONVERBAL, NONAMBULATORY, EYES OPEN TO SPEECH AND PAIN. ON MONITOR, VS STABLE, POX 100% ON MECHANICAL VENTILATOR. RT CALLED FOR PT. PT HAS G TUBE. PT PLACED TO BED, BLANKETS GIVEN,
--- NOTE | 2021-05-20 12:37 | NUR ---
PT TOLERATING MECH VENT SETTINGS WELL SATTING AT 99%: PEEP: 5.0 TV: 500 FIO2: 50% IE: 1:3.8
--- NOTE | 2021-05-20 12:38 | NUR ---
SPEECH ASSISTANT AT BEDSIDE
--- NOTE | 2021-05-20 12:39 | NUR ---
RT AT BEDSIDE
--- NOTE | 2021-05-20 12:55 | NUR ---
RAC #20G S/L; PATENT AND INTACT
--- NOTE | 2021-05-20 12:55 | NUR ---
STARTED IV LINE, BLOOD SPECIMEN COLLECTED AND SENT TO THE LAB. THE LINE IS SALINE LOCKED.
[2021-05-20 13:08] LABS: BASOPHILS # (AUTO) 0.4 K/uL (0.0-0.2); BASOPHILS % (AUTO) 3.8 % (0.0-2.0); EOSINOPHILS % (AUTO) 6.1 % (0.0-6.0); HEMATOCRIT 31 % (39-51); HEMOGLOBIN 10.1 g/dL (13.5-17.5); LYMPHOCYTES # (AUTO) 0.8 K/uL (0.8-4.8); LYMPHOCYTES % (AUTO) 7.6 % (20.0-44.0); MEAN CORPUSCULAR HGB CONC 33 g/dl (31.0-36.0); MEAN CORPUSCULAR VOLUME 92 fL (80-96); MONOCYTES # (AUTO) 1.4 K/uL (0.1-1.30); MONOCYTES % (AUTO) 13.7 % (2.0-12.0); NEUTROPHILS # (AUTO) 6.8 K/uL (1.8-8.9); NEUTROPHILS % (AUTO) 68.8 % (43.0-81.0); PLATELET COUNT (AUTO) 231 K/uL (150-450); RED BLOOD CELL COUNT(AUTO) 3.39 MIL/uL (4.5-6.0); WHITE BLOOD COUNT (AUTO) 9.9 K/uL (4.3-11.0)
--- NOTE | 2021-05-20 13:10 | NUR ---
COVID SAMPLE OBTAINED AND SENT TO LAB
[2021-05-20 13:20] LABS: CALCIUM, SERUM 9.1 mg/dL (8.5-10.1); CREATININE 5.7 mg/dL (0.6-1.3); POTASSIUM 3.6 mmol/L (3.5-5.1)
--- NOTE | 2021-05-20 13:25 | NUR ---
FIELD STAFF MANAGER AT PT'S BEDSIDE
[2021-05-20 13:31] LABS: ALBUMIN 2.7 g/dL (3.4-5.0); BILIRUBIN,DIRECT 0.2 mg/dL (0.0-0.2); BILIRUBIN,TOTAL 0.4 mg/dL (0.2-1.0); TOTAL PROTEIN, SERUM 7.6 g/dL (6.4-8.2)
--- NOTE | 2021-05-20 13:31 | NUR ---
COVID SWAB COLLECTED AND SENT TO LAB Addendum: 05/20/21 at 1332 by MIRIAM COVID PCR
--- NOTE | 2021-05-20 13:41 | NUR ---
GOT BED 117-2
--- NOTE | 2021-05-20 13:47 | NUR ---
GUNCOTTON PACKER AT PT'S BEDSIDE
--- NOTE | 2021-05-20 13:49 | NUR ---
CALLED [facility] TO GIVE REPORT; AWAITING CALL BACK FROM OXANA FORREST
[2021-05-20] MEDS ORDERED: SIME80TA15 GT (13:53)
[2021-05-20] MEDS ORDERED: NUT.237L67 GT (13:53)
[2021-05-20] MEDS ORDERED: ASCO500T10 GT (13:53)
[2021-05-20] MEDS ORDERED: AMIN30LI2 GT (13:53)
[2021-05-20] MEDS ORDERED: ACET-2605 GT (13:53)
[2021-05-20] MEDS ORDERED: ACET-868 GT (13:53)
[2021-05-20] MEDS ORDERED: MULT-24 GT (13:53)
[2021-05-20] MEDS ORDERED: ONDA4TAB5 GT (13:53)
--- NOTE | 2021-05-20 14:21 | NUR ---
[facility] CALLED ENVELOPE MACHINE OPERATOR PAGED.
--- NOTE | 2021-05-20 14:42 | NUR ---
REPORT GIVEN TO NURSE DAIGLE
--- NOTE | 2021-05-20 15:12 | NUR ---
THE PATIENT IS TRANSFERED TO ROOM 117.
--- NOTE | 2021-05-20 15:31 | NUR ---
RN NOTE PATIENT RECEIVED FROM ER. RECEIVED REPORT FROM CRISSY RN FROM ER. PATIENT NOT IN DISTRESS AT THIS TIME. V/S STABLE. WILL CONTINUE TO MONITOR.
[2021-05-20 16:00] VITALS: BP 127/88
[2021-05-20] MEDS ORDERED: NEPRO 1,000 ML BOTTLE GT PRN (16:00)
[2021-05-20] MEDS ORDERED: SIMETHICONE 80 MG TAB.CHEW GT PRN (16:00)
[2021-05-20] MEDS ORDERED: ONDANSETRON HCL/PF 4 MG/2 ML VIAL IV PRN (16:00)
[2021-05-20] MEDS ORDERED: Z GUARD REMEDY 2 OZ OINT TP PRN (16:30)
[2021-05-20] MEDS ORDERED: ONDANSETRON HCL/PF 4 MG/2 ML VIAL IVP PRN (16:30)
[2021-05-20] MEDS ORDERED: DEXTROSE 50%-WATER 50 ML DISP.SYRIN IV PRN (16:30)
[2021-05-20] MEDS: PROSOURCE / PROSTAT (PYXIS) 30 ML UDC GT SCH (17:00)
[2021-05-20] MEDS ORDERED: MIDODRINE HCL (5MG) 5 MG TABLET GT PRN (17:00)
[2021-05-20] MEDS ORDERED: ACETAMINOPHEN 650 MG/20.3 ML UDC GT PRN (17:30)
[2021-05-20] MEDS: BLOOD SUGAR DIAGNOSTIC 1 EACH STRIP IN SCH (18:24)
--- NOTE | 2021-05-20 18:52 | NUR ---
RN CLOSING NOTE PATIENT IN BED, OBTUNDED, EYES OPEN. PATIENT ON MECHANICAL VENTILATOR WITH FIO2 OF 40%. RIGHT SOFT WRIST RESTRAIN ON, SKIN INTACT AND WARM TO THE TOUCH. G TUBE IN PLACE, PATENT. RIGHT AC 20G IV IN PLACE, PATENT WITH NO SIGNS OF INFILTRATION. BED LOCKED AND IN LOWEST POSITION, CALL LIGHT WITHIN REACH, 3 SIDE RAILS UP. ALL NEEDS ATTENDED TO DURING SHIFT, NO SIGNS OF DISTRESS NOTED AT THIS TIME. WILL ENDORSE TO SHORTAGE WORKER NURSE.
[2021-05-20] MEDS: ALBUTEROL FS 2.5 MG/3 ML VIAL.NEB NEB SCH ×3 (19:30→23:30)
[2021-05-20] MEDS: IPRATROPIUM NEB FS 0.5 MG/2.5 ML AMPUL.NEB NEB SCH ×3 (19:30→23:30)
--- NOTE | 2021-05-20 19:40 | NUR ---
RN NOTE RECEIVED PATIENT IN BED, SLEEPING, EASILY AROUSABLE. NON-VERBAL, ABLE TO OPEN EYES. BREATHING EVEN AND UNLABORED. NO SOB NOTED. PATIENT TOLERATING VENT WITH VENT SETTING: AC:14, TV:500, FIO2:40%, PEEP:5.0. NO COUGH/CONGESTION NOTED. SKIN WARM AND DRY. AFEBRILE. NOTED WITH RIGHT AC PERIPHERAL IV 20G. INTACT. NOTED WITH LEFT UPPER CHEST HD CATH. NO BLEEDING NOTED. NOTED WITH G-TUBE CATHETER. NO BLEEDING NOTED. VERIFIED PLACEMENT VIA AUSCULTATION. MINIMAL RESIDUAL. NO BLEEDING NOTED. HOB ELEVATED 35 DEGREES. PATIENT ON BILATERAL SOFT WRIST RESTRAINTS. CAPILLARY REFILL WNL. 2 FINGER SPACE OBSERVED ON RESTRAINTS. ASSISTED WITH TURNING AND REPOSITIONING. BED LOW, IN LOCKED POSITION, CALL LIGHT WITHIN REACH.
[2021-05-20 20:00] VITALS: BP 127/76
[2021-05-20] MEDS: SEVELAMER CARBONATE 800 MG POWD.PACK GT SCH (22:26)
[2021-05-20] MEDS: DOCUSATE SODIUM LIQ 100 MG/10 ML UDC GT SCH (22:27)
[2021-05-21] VITALS: BP 124/81
--- NOTE | 2021-05-21 01:06 | NUR ---
RN NOTE PATIENT COMPLETED HD WITH LON PARADA. REMOVED 2000 ML. NO BLEEDING ON HD SITE. WILL CONTINUE TO MONITOR.
[2021-05-21] MEDS: BLOOD SUGAR DIAGNOSTIC 1 EACH STRIP IN SCH ×4 (01:58→17:46)
[2021-05-21] MEDS: IPRATROPIUM NEB FS 0.5 MG/2.5 ML AMPUL.NEB NEB SCH ×6 (03:30→23:57)
[2021-05-21] MEDS: ALBUTEROL FS 2.5 MG/3 ML VIAL.NEB NEB SCH ×6 (03:30→23:57)
[2021-05-21 04:00] VITALS: BP 115/75
[2021-05-21] MEDS: SEVELAMER CARBONATE 800 MG POWD.PACK GT SCH ×3 (04:47→21:28)
--- NOTE | 2021-05-21 07:30 | NUR ---
RN OPENING NOTES RECEIVED PT IN BED, NON-VERBAL. OPENS EYES. TOLERATING VENT SETTINGS AC:14, TV:500, FIO2:40% AND PEEP: 5.0. NO SOB OR ANY S/S OF RESPIRATORY DISTRESS NOTED. IV ACCESS AT RAC #20 INTACT, PATENT AND FLUSHED. LEFT UPPER CHEST WALL HD CATH IN PLACE. NO BLEEDING NOTED, DRESSING C/D/I. G-TUBE IN PLACE, POSITIVE PLACEMENT CHECKED VIA AUSCULTATION. NO RESIDUAL. RIGHT HAND SOFT WRIST RESTRAINTS, CHECKED CIRCULATION PER PROTOCOL. SAFETY MEASURES IMPLEMENTED. CALL LIGHT WITHIN REACH. BED LOCKED AND IN LOWEST POSITION WITH SIDE RAILS UP X3. WILL CONTINUE TO MONITOR.
--- NOTE | 2021-05-21 07:34 | NUR ---
RT HHN tx not given due to pending PCR, no SOB or respiratory distress noted. Addendum: 05/21/21 at 1158 by TYRESE ROWE RT Amended: Links added.
[2021-05-21 08:00] VITALS: BP 121/83
[2021-05-21 08:15] LABS: BASOPHILS # (AUTO) 0.1 K/uL (0.0-0.2); BASOPHILS % (AUTO) 0.8 % (0.0-2.0); EOSINOPHILS % (AUTO) 5.6 % (0.0-6.0); HEMATOCRIT 33 % (39-51); HEMOGLOBIN 10.6 g/dL (13.5-17.5); LYMPHOCYTES # (AUTO) 0.7 K/uL (0.8-4.8); LYMPHOCYTES % (AUTO) 10.8 % (20.0-44.0); MEAN CORPUSCULAR HGB CONC 33 g/dl (31.0-36.0); MEAN CORPUSCULAR VOLUME 93 fL (80-96); MONOCYTES % (AUTO) 14.1 % (2.0-12.0); NEUTROPHILS # (AUTO) 4.7 K/uL (1.8-8.9); NEUTROPHILS % (AUTO) 68.7 % (43.0-81.0); PLATELET COUNT (AUTO) 196 K/uL (150-450); RED BLOOD CELL COUNT(AUTO) 3.51 MIL/uL (4.5-6.0); WHITE BLOOD COUNT (AUTO) 6.9 K/uL (4.3-11.0)
[2021-05-21] MEDS: PANTOPRAZOLE 40 MG/PACK PACK GT SCH (08:31)
[2021-05-21] MEDS: ASCORBIC ACID 500 MG TABLET GT SCH (08:32)
[2021-05-21] MEDS: MULTIVITAMINS,THERAGRAN 1 UDTAB TABLET GT SCH (08:32)
[2021-05-21] MEDS: DOCUSATE SODIUM LIQ 100 MG/10 ML UDC GT SCH ×2 (08:32→21:28)
[2021-05-21] MEDS: FERROUS SULFATE (325 MG) 325 MG/TAB TABLET GT SCH (08:32)
[2021-05-21] MEDS: PROSOURCE / PROSTAT (PYXIS) 30 ML UDC GT SCH ×3 (08:32→17:38)
[2021-05-21 08:42] LABS: CALCIUM, SERUM 9.1 mg/dL (8.5-10.1); CREATININE 4.5 mg/dL (0.6-1.3); MAGNESIUM 2.5 mg/dL (1.8-2.4); PHOSPHORUS 3.2 mg/dL (2.5-4.9); POTASSIUM 3.3 mmol/L (3.5-5.1)
[2021-05-21] MEDS ORDERED: NEPRO 1,000 ML BOTTLE GT PRN (09:00)
[2021-05-21 12:00] VITALS: BP 116/81
[2021-05-21] MEDS: INSULIN REGULAR, HUMAN 100 UNIT/ML 3 ML VIAL SQ PRN ×2 (12:20→17:46)
[2021-05-21 16:00] VITALS: BP 117/79
--- NOTE | 2021-05-21 18:59 | NUR ---
RN CLOSING NOTES NO SIGNIFICANT CHANGES THROUGHOUT THE SHIFT. NO SOB OR ANY S/S OF RESPIRATORY DISTRESS NOTED. ALL DUE MEDS GIVEN. NEEDS ATTENDED. SAFETY MEASURES IMPLEMENTED. CALL LIGHT WITHIN REACH. BED LOCKED AND IN LOWEST POSITION WITH SIDE RAILS UP X3. WILL ENDORSE TO NIGHT RN FOR DENNIS.
--- NOTE | 2021-05-21 19:30 | NUR ---
RN NOTE RECEIVED PATIENT IN BED, AWAKE, NON-VERBAL. BREATHING EVEN AND UNLABORED. ON VENT WITH VENT SETTINGS OF AC:14, TV: 500, FIO2: 30%, PEEP: 5.0. NO SOB NOTED. SATURATION OF 100 PERCENT. ON TELEMONITORING WITH HR OF 88 BPM. NO SOB NOTED. SKIN WARM AND DRY. NOTED WITH RIGHT AC 20G. PATENT, NO BLEEDING NOTED. NOTED WITH G-TUBE. NO FEEDING AT THIS TIME. NO BLEEDING NOTED FROM NOTE. NOTED WITH SOFT WRIST RESTRAINT ON RIGHT WRIST. CAPILLARY REFILL WNL. HOB ELEVATED. BED LOW, IN LOCKED POSITION. CALL LIGHT WITHIN REACH.
[2021-05-21 20:00] VITALS: BP 124/85
[2021-05-22] VITALS: BP 102/84
[2021-05-22] MEDS: BLOOD SUGAR DIAGNOSTIC 1 EACH STRIP IN SCH ×3 (00:37→12:09)
--- NOTE | 2021-05-22 01:00 | NUR ---
RN NOTE NEPRO 1000 ML @ 60 CC/HR FEEDING STARTED. MINIMAL RESIDUAL. G-TUBE PLACEMENT VERIFIED VIA AUSCULTATION. WILL CONTINUE TO MONITOR.
[2021-05-22 04:00] VITALS: BP 133/81
[2021-05-22] MEDS: IPRATROPIUM NEB FS 0.5 MG/2.5 ML AMPUL.NEB NEB SCH ×5 (04:14→15:32)
[2021-05-22] MEDS: ALBUTEROL FS 2.5 MG/3 ML VIAL.NEB NEB SCH ×5 (04:14→15:32)
[2021-05-22] MEDS: SEVELAMER CARBONATE 800 MG POWD.PACK GT SCH ×2 (05:10→12:10)
--- NOTE | 2021-05-22 07:21 | NUR ---
RN OPENING NOTE PATIENT RECEIVED IN BED, RESTING, EYES CLOSED. PATIENT ON MECHANICAL VENTILATOR WITH A TRACHEOSTOMY IN PLACE, 30% FIO2 WITH NO SIGNS OF RESPIRATORY DISTRESS AT THIS TIME. RIGHT SOFT WRIST RESTRAIN ON, SKIN INTACT AND WARM. G TUBE IN PLACE, RUNNING NEPRO AT 60CC/HR. RIGHT AC 20G IV IN PLACE. BED LOCKED AND IN LOWEST POSITION, CALL LIGHT WITHIN REACH, 3 SIDE RAILS UP. ALL SAFETY MEASURES IMPLEMENTED. NO SIGNS OF DISTRESS NOTED AT THIS TIME. WILL CONTINUE TO MONITOR.
--- NOTE | 2021-05-22 07:40 | NUR ---
RT HHN tx not given due to pending PCR results, no SOB or respiratory distress noted. Addendum: 05/22/21 at 0824 by TYRESE ROWE RT Amended: Links added.
[2021-05-22 08:00] VITALS: BP 134/85
[2021-05-22] MEDS: MULTIVITAMINS,THERAGRAN 1 UDTAB TABLET GT SCH (08:02)
[2021-05-22] MEDS: DOCUSATE SODIUM LIQ 100 MG/10 ML UDC GT SCH (08:02)
[2021-05-22] MEDS: PANTOPRAZOLE 40 MG/PACK PACK GT SCH (08:02)
[2021-05-22] MEDS: ASCORBIC ACID 500 MG TABLET GT SCH (08:02)
[2021-05-22] MEDS: FERROUS SULFATE (325 MG) 325 MG/TAB TABLET GT SCH (08:04)
[2021-05-22] MEDS: PROSOURCE / PROSTAT (PYXIS) 30 ML UDC GT SCH ×3 (09:00→12:11)
--- NOTE | 2021-05-22 11:50 | NUR ---
PER [facility] PATIENT COVID NEGATIVE PCR.
[2021-05-22 12:00] VITALS: BP 135/86
[2021-05-22] MEDS ORDERED: EPOETIN ALFA-EPBX 4,000 UNIT/ML VIAL SQ SCH (15:00)
[2021-05-22 16:00] VITALS: BP 134/77
--- NOTE | 2021-05-22 17:54 | NUR ---
RN NOTE PATIENT DISCHARGED PER ORDER. PATIENT MEDICALLY STABLE AT TIME OF DISCHARGE. PATIENT LEFT FACILITY BY AMBULANCE. REPORT GIVEN TO [place] [facility] [employer] [facility].
== END 2021-05-22 17:38 | DRG 206 ==
LOC: ER 12:41 → TELE1 15:15
PROVIDERS: ADMIT Nurse Practitioner Acute Care; ATTEND Nurse Practitioner Acute Care
PROC: 5A1D70Z Performance of Urinary Filtration, Intermittent, Less than 6 Hours Per Day (ICD-10-PCS; principal; 2021-05-20)
PROC: 5A1945Z Respiratory Ventilation, 24-96 Consecutive Hours (ICD-10-PCS; 2021-05-20)
DX: T82.838A Hemorrhage due to vascular prosthetic devices, implants and grafts, initial encounter (principal); G93.41 Metabolic encephalopathy; J96.10 Chronic respiratory failure, unspecified whether with hypoxia or hypercapnia; D68.9 Coagulation defect, unspecified; I12.0 Hypertensive chronic kidney disease with stage 5 chronic kidney disease or end stage renal disease; N18.6 End stage renal disease; D63.1 Anemia in chronic kidney disease; E87.1 Hypo-osmolality and hyponatremia; E83.9 Disorder of mineral metabolism, unspecified; E11.22 Type 2 diabetes mellitus with diabetic chronic kidney disease; Z99.2 Dependence on renal dialysis; I25.10 Atherosclerotic heart disease of native coronary artery without angina pectoris; I69.354 Hemiplegia and hemiparesis following cerebral infarction affecting left non-dominant side; K21.9 Gastro-esophageal reflux disease without esophagitis; Z99.11 Dependence on respirator [ventilator] status; Y83.8 Other surgical procedures as the cause of abnormal reaction of the patient, or of later complication, without mention of misadventure at the time of the procedure; Y92.129 Unspecified place in nursing home as the place of occurrence of the external cause; Z93.0 Tracheostomy status; Z93.1 Gastrostomy status; M24.522 Contracture, left elbow; M24.521 Contracture, right elbow; M24.571 Contracture, right ankle; M24.572 Contracture, left ankle; Z20.822 Contact with and (suspected) exposure to COVID-19; L89.90 Pressure ulcer of unspecified site, unspecified stage; Z79.4 Long term (current) use of insulin
CPT/HCPCS: 31720; 36415; 71045-TC; 80048-TC; 80076-TC; 82962-TC; 83690-TC; 83735-TC; 84100-TC; 85025-TC; 85730-TC; 86706; 87081-TC; 87340; 94002-TC; 94003-TC; 94762-TC; 94799-TC; 99082-TC; A4217; A4623; A6253; A7526; C9803; G0378; J0885; J1815; J7030; U0003

== ENCOUNTER 2021-05-26 14:19 | Emergency (ER) | payer MEDICAID ==
[~2021-05-26] VITALS: Ht 182.9 cm; Wt 85.7 kg
[~2021-05-26 14:19] MED LIST changes: +ACET-2605 GT; +AMIN30LI2 GT; -ASCO500C17 GT; +ASCO500T10 GT; -CYAN500T64 GT; +MULT-24 GT; +NUT.237L67 GT; -Nepro GT; +ONDA4TAB5 GT; +SIME80TA15 GT; -VIT1TABL46 GT; -[UNRECOGNIZED DRUG - CODE] GT
--- NOTE | 2021-05-26 15:01 | NUR ---
The patient bibpa, from HD, bleeding HD cath, no dialysis done. No bleeding at this time. The patient is vent/trach depend and sary settings well. GT present. Attached to the monitor.
--- NOTE | 2021-05-26 15:05 | NUR ---
PER LAW MD ORDERS AND RT RECOMMENDATIONS VENT SETTINGS: PEEP 5, AC 14, VT 500, FIO2 40%.
--- NOTE | 2021-05-26 15:30 | NUR ---
IV LINE IS ESTABLISHED, BLOOD SPECIMEN COLLECTED AND SENT TO THE LAB. THE LINE IS SALINE LOCKED.
[2021-05-26 15:48] LABS: BASOPHILS % (AUTO) 0.5 % (0.0-2.0); EOSINOPHILS % (AUTO) 7.9 % (0.0-6.0); HEMATOCRIT 32 % (39-51); HEMOGLOBIN 10.5 g/dL (13.5-17.5); LYMPHOCYTES # (AUTO) 1.2 K/uL (0.8-4.8); LYMPHOCYTES % (AUTO) 14.5 % (20.0-44.0); MEAN CORPUSCULAR HGB CONC 33 g/dl (31.0-36.0); MEAN CORPUSCULAR VOLUME 92 fL (80-96); MONOCYTES # (AUTO) 0.8 K/uL (0.1-1.30); MONOCYTES % (AUTO) 8.9 % (2.0-12.0); NEUTROPHILS # (AUTO) 5.8 K/uL (1.8-8.9); NEUTROPHILS % (AUTO) 68.2 % (43.0-81.0); PLATELET COUNT (AUTO) 218 K/uL (150-450); RED BLOOD CELL COUNT(AUTO) 3.53 MIL/uL (4.5-6.0); WHITE BLOOD COUNT (AUTO) 8.5 K/uL (4.3-11.0)
--- NOTE | 2021-05-26 16:00 | NUR ---
NO BLEEDING FROM HD CATH NOTED. WILL CONTINUE TO MONITOR THE PATIENT
[2021-05-26 16:03] LABS: ALBUMIN 3.1 g/dL (3.4-5.0); BILIRUBIN,DIRECT 0.2 mg/dL (0.0-0.2); BILIRUBIN,TOTAL 0.4 mg/dL (0.2-1.0); CALCIUM, SERUM 9.2 mg/dL (8.5-10.1); POTASSIUM 3.5 mmol/L (3.5-5.1)
[2021-05-26 16:05] LABS: CREATININE 8.3 mg/dL (0.6-1.3)
--- NOTE | 2021-05-26 17:32 | NUR ---
[facility] CALLED FOR TRANSPORT ETA IS [phone]
--- NOTE | 2021-05-26 17:43 | NUR ---
REPORT GIVEN TO NURSE CORTEZ FROM THE FACILITY
[2021-05-26 19:30] VITALS: BP 124/87
--- NOTE | 2021-05-26 19:31 | NUR ---
GAVE REPORT TO EMT VIRGEN FROM [facility]. Patient discharged to SNF in stable condition. Written and verbal after care instructions given TO EMT. EMT verbalizes understanding of instruction. PT DC VIA BLS PROTOCOL. VSS PEEP 5, AC 14, VT 500, FIO2 40%
== END 2021-05-26 19:45 ==
LOC: ER 14:22
DX: T82.838A Hemorrhage due to vascular prosthetic devices, implants and grafts, initial encounter (principal); I12.0 Hypertensive chronic kidney disease with stage 5 chronic kidney disease or end stage renal disease; E11.22 Type 2 diabetes mellitus with diabetic chronic kidney disease; N18.6 End stage renal disease; Z99.2 Dependence on renal dialysis; K21.9 Gastro-esophageal reflux disease without esophagitis; Z86.73 Personal history of transient ischemic attack (TIA), and cerebral infarction without residual deficits; Z93.1 Gastrostomy status; Z79.899 Other long term (current) drug therapy; Z79.4 Long term (current) use of insulin
CPT/HCPCS: 36415; 80048-TC; 80076-TC; 85025-TC; 85730-TC

== ENCOUNTER 2021-06-06 17:36 | Inpatient (IN) | payer MEDICAID ==
[~2021-06-06] VITALS: Ht 182.9 cm; Wt 67.6 kg
--- NOTE | 2021-06-06 17:41 | NUR ---
TO ER BED 8, JONATHAN FROM DIALYSIS CENTER C/O 5 EPISODE OF VOMITING WHILE ONGOING DIALYSIS, CONNECTED TO MONITOR, AWAITING MD ORDERS
--- NOTE | 2021-06-06 17:58 | NUR ---
rt note patient rec'd from dialysis via transport rt. vent settings per home facility. no sob noted at this time. vent plug in red outlet and alarms on and audible. trach tube patent and secure. bvm and back trach bedside. will continue to monitor.
[2021-06-06] MEDS ORDERED: ONDANSETRON HCL/PF 4 MG/2 ML VIAL IV ONE (18:00)
[2021-06-06] MEDS ORDERED: ONDANSETRON HCL/PF 4 MG/2 ML VIAL ONE (18:05)
--- NOTE | 2021-06-06 18:11 | NUR ---
X-RAY AT THE BEDSIDE
[2021-06-06 18:22] LABS: BASOPHILS # (AUTO) 0.2 K/uL (0.0-0.2); BASOPHILS % (AUTO) 1.4 % (0.0-2.0); EOSINOPHILS % (AUTO) 1.3 % (0.0-6.0); HEMATOCRIT 39 % (39-51); HEMOGLOBIN 12.5 g/dL (13.5-17.5); LYMPHOCYTES # (AUTO) 0.8 K/uL (0.8-4.8); LYMPHOCYTES % (AUTO) 5.6 % (20.0-44.0); MEAN CORPUSCULAR HGB CONC 32 g/dl (31.0-36.0); MEAN CORPUSCULAR VOLUME 95 fL (80-96); MONOCYTES # (AUTO) 1.3 K/uL (0.1-1.30); MONOCYTES % (AUTO) 8.9 % (2.0-12.0); NEUTROPHILS # (AUTO) 12.4 K/uL (1.8-8.9); NEUTROPHILS % (AUTO) 82.8 % (43.0-81.0); PLATELET COUNT (AUTO) 258 K/uL (150-450); RED BLOOD CELL COUNT(AUTO) 4.07 MIL/uL (4.5-6.0)
[2021-06-06] MEDS ORDERED: IV NS 0.9% 1,000 ML IV ONE (18:30)
[2021-06-06 18:31] LABS: CALCIUM, SERUM 9.4 mg/dL (8.5-10.1); CARBON DIOXIDE 31 mmol/L (21-32); CHLORIDE 97 mmol/L (98-107); CREATININE 5.6 mg/dL (0.6-1.3); GLUCOSE 106 mg/dL (74-106); POTASSIUM 3.7 mmol/L (3.5-5.1); SODIUM SERUM 138 mmol/L (136-145); UREA NITROGEN, BLOOD 34 mg/dL (7-18)
--- NOTE | 2021-06-06 18:39 | NUR ---
COVID SWAB DONE AND SENT TO LAB
[2021-06-06 18:40] LABS: ALANINE AMINOTRANSFERASE 24 U/L (12-78); ALBUMIN 3.6 g/dL (3.4-5.0); ALKALINE PHOSPHATASE 194 U/L (46-116); ASPARTATE AMINOTRANSFERASE 30 U/L (15-37); BILIRUBIN,DIRECT 0.2 mg/dL (0.0-0.2); BILIRUBIN,TOTAL 0.5 mg/dL (0.2-1.0); LIPASE 154 U/L (73-393); TOTAL PROTEIN, SERUM 9.4 g/dL (6.4-8.2)
--- NOTE | 2021-06-06 18:40 | NUR ---
Yovany martinez in EDM - 06/06/21 at 1922 by ELMER CALLED CINDA BUT NO ANSWER. LEFT VOICEMALE AND PT STATUS
--- NOTE | 2021-06-06 19:12 | NUR ---
REPORT GIVEN TO SATYA MIRANDA RN FOR DENNIS
--- NOTE | 2021-06-06 19:14 | NUR ---
REC'D REPORT FROM LON TIMMONS FOR DENNIS
[2021-06-06] MEDS ORDERED: PIPERACILLIN /TAZOBACTAM 3.375 G VIAL IV ONE (19:53)
[2021-06-06] MEDS ORDERED: PIPERACILLIN /TAZOBACTAM 3.375 G in IV D5W 50 ML IV ONE (20:00)
--- NOTE | 2021-06-06 20:08 | NUR ---
RETURNED FROM CT
--- NOTE | 2021-06-06 20:35 | NUR ---
ATTEMPTED TO GIVE REPORT, RN WILL CALL BACK
--- NOTE | 2021-06-06 21:05 | NUR ---
RN NOTES RECEIVED REPORT FROM ER NURSE SATYA
--- NOTE | 2021-06-06 21:07 | NUR ---
GAVE REPORT TO LON GUPTA FOR DENNIS
[2021-06-06] MEDS ORDERED: BISACODYL SUPP (10 MG) 10 MG/SUPP.RECT SUPP.RECT RC PRN (21:30)
[2021-06-06] MEDS ORDERED: SIMETHICONE 80 MG TAB.CHEW GT PRN (21:30)
[2021-06-06] MEDS ORDERED: Z GUARD REMEDY 2 OZ OINT TP PRN (21:30)
[2021-06-06] MEDS ORDERED: ZOLPIDEM TARTRATE 5 MG TABLET GT PRN (21:30)
[2021-06-06] MEDS ORDERED: ACETAMINOPHEN 325 MG TABLET MC PRN ×3 (21:30)
[2021-06-06] MEDS ORDERED: MAG HYDROX/AL HYDROX/SIMETH 30 ML UDC GT PRN (21:30)
[2021-06-06] MEDS ORDERED: MAGNESIUM HYDROXIDE 30 ML UDC GT PRN ×2 (21:30→22:30)
[2021-06-06] MEDS ORDERED: ACETAMINOPHEN ES 500 MG TABLET GT PRN (21:30)
[2021-06-06] MEDS ORDERED: NEPRO VAN 237 ML CAN GT SCH (21:30)
[2021-06-06] MEDS ORDERED: DEXTROSE 50%-WATER 50 ML DISP.SYRIN IV PRN (21:30)
[2021-06-06 22:00] VITALS: BP 143/90
--- NOTE | 2021-06-06 22:00 | NUR ---
RN NOTES RECEIVED PT FROM ER VIA BOOMRYELENA ACCOMPANIED BY 2 ER STAFF AND TRANSFERRED TO BED VIA 2 PERSON ASSIST. PT IS A/OX1; NON VERBAL; PT ON MECHANICAL VENT; SETTINGS PRESCRIBED WITH RESPIRATIONS EVEN AND UNLABORED. COMPREHENSIVE PHYSICAL ASSESSMENT AND PATIENT CARE DONE. CALL LIGHT WITHIN REACH, SAFETY MEASURES AND ISOLATION PRECAUTION IN PLACE, WILL CONTINUE MONITOR AND ASSESS THROUGHOUT THE SHIFT. WILL CARRY OUT MD ORDERS ACCORDINGLY. DEBURRING AND TOOLING MACHINE OPERATOR MADE AWARE.
[2021-06-06] MEDS ORDERED: MIDODRINE HCL (5MG) 5 MG TABLET GT PRN (22:30)
--- NOTE | 2021-06-06 22:30 | NUR ---
RN NOTES EPISODE OF NAUSEA AND VOMITING NOTED FROM PT. PRN ZOFRAN GIVEN. LEAKAGE TESTER MADE AWARE. WILL CONTINUE TO ASSESS AND MONITOR THROUGHOUT THE SHIFT.
[2021-06-06] MEDS: ONDANSETRON HCL/PF 4 MG/2 ML VIAL IVP PRN (22:36)
[2021-06-06] MEDS ORDERED: VANCOMYCIN 1 GM VIAL ONE (22:46)
[2021-06-06] MEDS ORDERED: VANCOMYCIN 1.5 GM in IV D5W 500ml IV ONE (23:00)
--- NOTE | 2021-06-06 23:05 | NUR ---
RN NOTES SPOKE WITH AUBRIE GARCIA (GRETCHEN LÓPEZ) SECURED ORDER FOR RESTRAINTS AND TUBE FEEDING (NEPRO 1.8 @70CC/HR). ADVISED AUBRIE GARCIA THAT PT HAD EPISODE OF N/V , HOLD FEEDING FOR NOW AND CONTINUE TO MONITOR AND MAY START FEEDING IN AM IF NO EPISODE OF NAUSEA AND VOMITING TIL THE END OF THE SHIFT. WILL ENDORSE TO AM SHIFT. PARAPROFESSIONAL AIDE MADE AWARE.
--- NOTE | 2021-06-06 23:15 | NUR ---
LON NOTES CALLED [facility] [phone], SPOKE WITH ARLEN, VERIFIED THE FOLLOWING INFO: CODE STATUS: FC, COVID VACCINATION STATUS: COMPLETED, FOR 3RD DOSE/BOOSTER (HE WILL CALLBACK FOR THE DATES) ASKED AND ADVISED [employer] TO SEND [facility] AND PROVIDED PRIYANKA SHAKNS'S FAX # . HE ACKNOWLEDGED. PAULETTE FORREST MADE AWARE. Addendum: 06/06/21 at 8041 by AMY BOCANEGRA RN RECEIVED CALLBACK FROM ARLEN, HE SAID POL[facility] HAS BEEN FAXED. HE ALSO SAID 3RD DOSE/BOOSTER FOR COVID VACCINATION WAS LAST 05/11/21 BUT UNABLE TO GIVE DATES FOR THE 1ST AND 2ND DOSE. PAULETTE FORREST MADE AWARE.
--- NOTE | 2021-06-06 23:38 | NUR ---
RT NOTE RECEIVED PT ON [facility] VENT ORDERED VENT SETTINGS AC 14 500 35% +5, PORTEX 8 CUFFED TRACH. PT CURRENTLY, AMBUBAG AND BACKUP TRACH BY BEDSIDE. VENT PLUGGED INTO RED OUTLET, ALARMS ON AND AUDIBLE. CONTINUOUS PULSE OX ATTACHED TO PROBE. NO SOB OR S/S OF ACUTE RESPIRATORY DISTRESS NOTED. WILL CONTINUE TO MONITOR T/O SHIFT.
[2021-06-07] VITALS (7 sets, daily range): BP systolic 116–156; BP diastolic 54–98
[2021-06-07] MEDS: BLOOD SUGAR DIAGNOSTIC 1 EACH STRIP IN SCH ×5 (00:03→23:59)
--- NOTE | 2021-06-07 00:17 | NUR ---
RT NOTE CHANGED PT IN-LINE TRACH SUCTION CATH, ALONG WITH HME AND T-DRAIN.
[2021-06-07] MEDS: IV D5/ 0.9% NACL 1,000 ML IV PRN ×2 (03:28→18:49)
[2021-06-07] MEDS: METOCLOPRAMIDE HCL 10 MG/2 ML VIAL IV SCH ×5 (03:31→23:34)
[2021-06-07] MEDS: SEVELAMER CARBONATE 800 MG POWD.PACK GT SCH ×3 (04:57→21:42)
[2021-06-07] MEDS ORDERED: MEROPENEM 1 G in IV NS 0.9% 100 ML IV SCH (05:00)
[2021-06-07] MEDS ORDERED: MEROPENEM 500 MG in IV NS 0.9% 50 ML IV ONE (05:00)
[2021-06-07] MEDS ORDERED: MEROPENEM 500 MG VIAL IV ONE (05:05)
[2021-06-07] MEDS: INSULIN REGULAR, HUMAN 100 UNIT/ML 3 ML VIAL SQ PRN (05:45)
--- NOTE | 2021-06-07 06:24 | NUR ---
RN NOTES CALLED MAC MCNEIL ([phone]) TO GET CONSENT FOR HD TREATMENT; ROUTED TO AND REQUESTED FOR CALLBACK. WILL ENDORSE TO AM SHIFT TO FOLLOW UP. RESTAURANT MANAGEMENT INTERNSHIP MADE AWARE.
[2021-06-07 06:29] LABS: BASOPHILS % (AUTO) 0.1 % (0.0-2.0); EOSINOPHILS % (AUTO) 0.1 % (0.0-6.0); HEMATOCRIT 38 % (39-51); HEMOGLOBIN 12.5 g/dL (13.5-17.5); LYMPHOCYTES # (AUTO) 0.6 K/uL (0.8-4.8); LYMPHOCYTES % (AUTO) 3.2 % (20.0-44.0); MEAN CORPUSCULAR HGB CONC 33 g/dl (31.0-36.0); MEAN CORPUSCULAR VOLUME 95 fL (80-96); MONOCYTES # (AUTO) 1.1 K/uL (0.1-1.30); MONOCYTES % (AUTO) 5.9 % (2.0-12.0); NEUTROPHILS # (AUTO) 16.5 K/uL (1.8-8.9); NEUTROPHILS % (AUTO) 90.7 % (43.0-81.0); PLATELET COUNT (AUTO) 266 K/uL (150-450); WHITE BLOOD COUNT (AUTO) 18.2 K/uL (4.3-11.0)
[2021-06-07] MEDS ORDERED: VANCOMYCIN 500 MG in IV D5W 100 ML IV PRN (06:30)
--- NOTE | 2021-06-07 06:53 | NUR ---
RN CLOSING NOTE: PATIENT REMAINS IN ROOM IN NO SIGNS OF RESPIRATORY DISTRESS, PATIENT STILL ON MECH VENT; SETTINGS PRESCRIBED;TOLERATING WELL SATURATING @ >95% SP02. SAFETY MEASURES IMPLEMENTED, BED IN LOWEST POSITION, LOCKED, SIDE RAILS UP, CALL LIGHT WITHIN REACH. ALL NEEDS AND ORDERS ADDRESSED DURING THE SHIFT. IV ACCESS MAINTAINED INTACT, SECURED AND FLUSHING WELL. ALL DUE MEDS GIVEN ORDERED & SCHEDULED ; PATIENT TOLERATED WELL. PATIENT KEPT CLEAN AND COMFORTABLE WITHIN THE SHIFT. PATIENT ENDORSED TO INCOMING SHIFT RN WITH STABLE VITAL SIGN AND FOR CONTINUITY OF CARE.
[2021-06-07 07:17] LABS: CALCIUM, SERUM 10.6 mg/dL (8.5-10.1); CREATININE 6.6 mg/dL (0.6-1.3); MAGNESIUM 3.1 mg/dL (1.8-2.4); POTASSIUM 3.7 mmol/L (3.5-5.1)
--- NOTE | 2021-06-07 07:20 | NUR ---
RN OPENING NOTE RECEIVE REPORT FROM OTR VAN CDL TRUCK DRIVER NURSE. PATIENT IN STABLE CONDITION AT TIME OF REPORT. ON VENT: TV 500, FIO2 35% WITH O2 SAT OF 100% AND ABOVE. G-TUBE FEEDING WAS NOT RUNNING LAST NIGHT DUE TO VOMITING. WILL REASSESS PATIENT AND INFORM DOCTOR BEFORE STARTING TUBE FEEDING. WILL FOLLOW UP AM LABS AND DOCTOR ORDERS. PROPER ISOLATION PRECAUTION IN PLACE. ALL SAFETY MEASURE IN PLACE. BED ON LOWEST POSITION WITH HOB ELEVATED. CALL LIGHT WITHIN REACH. WILL CONTINUE TO MONITOR.
[2021-06-07] MEDS ORDERED: Medication Not On Formulary EA (Omeprazole 40 MG) GT SCH (09:00)
[2021-06-07] MEDS: DOCUSATE SODIUM LIQ 100 MG/10 ML UDC GT SCH ×2 (09:27→21:42)
[2021-06-07] MEDS: FERROUS SULFATE (325 MG) 325 MG/TAB TABLET GT SCH (09:27)
[2021-06-07] MEDS: PANTOPRAZOLE 40 MG/PACK PACK GT SCH (09:27)
[2021-06-07] MEDS: MULTIVITAMINS,THERAGRAN 1 UDTAB TABLET GT SCH (09:27)
[2021-06-07] MEDS: ASCORBIC ACID 500 MG TABLET GT SCH (09:27)
[2021-06-07] MEDS: PROSTAT (PYXIS) 30 ML UDC GT SCH ×3 (09:28→17:41)
[2021-06-07] MEDS: ONDANSETRON HCL/PF 4 MG/2 ML VIAL IVP PRN (10:10)
--- NOTE | 2021-06-07 18:07 | NUR ---
RN CLOSING NOTE PATIENT REMAIN IN STABLE CONDITION THROUGH OUT SHIFT. TUBE FEEDING WAS NOT STARTED. PATIENT HAD 2 EMESIS DURING SHIFT. NO ORDER TO START FEEDING. PATIENT WAS TURN AND REPOSITION PER PROTOCOL. DIALYSIS WAS DONE WITH 1.5L TAKEN OUT. VENT SETTING: TRACH #P8, AC 14, TV 500, FIO2 35%, PEEP 5. D5NS IS RUNNING AT 70ML/HR. R AC 18G WAS PULL OUT. PLACE A NEW IV 22G ON RIGHT FOREARM. MIDLINE WAS PLACE ON R UA 18G. PROPER ISOLATION PRECAUTION IN PLACE. ALL SAFETY MEASURE IN PLACE. BED ON LOWEST POSITION WITH HOB ELEVATED AND 3 SIDE RAIL UP. CALL LIGHT WITHIN REACH. WILL CONTINUE TO MONITOR AND GIVE REPORT TO SKIN CARE CONSULTANT NURSE.
--- NOTE | 2021-06-07 20:11 | NUR ---
RN OPENING NOTES RECEIVED CARE OF PATIENT, PATIENT ON BED, A/O X1, UNABLE TO VERBALIZE NEEDS. PATIENT HAD AN EPISODE OF EMESIS, TUBE FEEDING NEPHRO AT 70 ML/HR HAS BEEN STOPPED AT THIS TIME. PATIENT ON A VENTILATOR, VENT SETTING: TRACH #P8, AC 14, TV 500, FIO2 35%, PEEP 5. D5NS IS RUNNING AT 70ML/HR. PATIENT HAS IV ACCESS ON RIGHT FOREARM G#22 AND ALEX MIDLINE G#18, BOTH FLUSHING WELL AND PATENT. PROPER ISOLATION PRECAUTION IN PLACE. ALL SAFETY MEASURE IN PLACE. BED ON LOWEST POSITION WITH WHEELS LOCKED IN PLACE AND 3 SIDE RAIL UP. CALL LIGHT WITHIN REACH. WILL CONTINUE TO MONITOR FOR ANY CHANGES.
[2021-06-07] MEDS: MEROPENEM 500 MG in IV NS 0.9% 50 ML IV SCH (21:42)
[2021-06-07] MEDS ORDERED: MEROPENEM 500 MG in IV NS 0.9% 50 ML IV SCH (22:00)
[2021-06-08] VITALS: BP 132/100
[2021-06-08 04:00] VITALS: BP 132/95
[2021-06-08] MEDS: METOCLOPRAMIDE HCL 10 MG/2 ML VIAL IV SCH ×3 (05:25→17:04)
[2021-06-08] MEDS: SEVELAMER CARBONATE 800 MG POWD.PACK GT SCH ×3 (05:25→20:36)
[2021-06-08] MEDS: BLOOD SUGAR DIAGNOSTIC 1 EACH STRIP IN SCH ×3 (06:00→17:03)
--- NOTE | 2021-06-08 06:00 | NUR ---
RN NOTES BLOOD GLUCOSE IS 119. NO INSULIN COVERAGE PER SLIDING SCALE ORDERS.
[2021-06-08 06:45] LABS: CALCIUM, SERUM 10.1 mg/dL (8.5-10.1); CREATININE 6.7 mg/dL (0.6-1.3); POTASSIUM 3.3 mmol/L (3.5-5.1)
--- NOTE | 2021-06-08 06:53 | NUR ---
RN CLOSING NOTES WILL ENDORSE PATIENT ON BED, A/O X1, UNABLE TO VERBALIZE NEEDS, TUBE FEEDING NEPHRO AT 70 ML/HR HAS BEEN STOPPED AT THIS TIME. PATIENT ON A VENTILATOR, VENT SETTING: TRACH #P8, AC 14, TV 500, FIO2 35%, PEEP 5. D5NS IS RUNNING AT 70ML/HR. PATIENT HAS IV ACCESS ON RIGHT FOREARM G#22 AND ALEX MIDLINE G#18, BOTH FLUSHING WELL AND PATENT. PROPER ISOLATION PRECAUTION IN PLACE. ALL SAFETY MEASURE IN PLACE. BED ON LOWEST POSITION WITH WHEELS LOCKED IN PLACE AND 3 SIDE RAIL UP. CALL LIGHT WITHIN REACH. WILL ENDORSE TO DAY SHIFT NURSE FOR DENNIS.
[2021-06-08 06:59] LABS: BASOPHILS % (AUTO) 0.1 % (0.0-2.0); EOSINOPHILS % (AUTO) 0.5 % (0.0-6.0); HEMATOCRIT 38 % (39-51); HEMOGLOBIN 12.5 g/dL (13.5-17.5); LYMPHOCYTES # (AUTO) 0.8 K/uL (0.8-4.8); LYMPHOCYTES % (AUTO) 4.2 % (20.0-44.0); MEAN CORPUSCULAR HGB CONC 33 g/dl (31.0-36.0); MEAN CORPUSCULAR VOLUME 96 fL (80-96); MONOCYTES % (AUTO) 10.6 % (2.0-12.0); NEUTROPHILS # (AUTO) 15.8 K/uL (1.8-8.9); NEUTROPHILS % (AUTO) 84.6 % (43.0-81.0); PLATELET COUNT (AUTO) 256 K/uL (150-450); WHITE BLOOD COUNT (AUTO) 18.6 K/uL (4.3-11.0)
--- NOTE | 2021-06-08 07:51 | NUR ---
RN OPENING NOTES RECEIVED PT FROM SERVICES CLERK, PT AWAKE, A/O X1 OBTUNDED. RFA AND ALEX INTACT AND PATENT. PT ON GTUBE AND NPO. NO SIGNS OF PAIN OR DISCOMFORT. PT ON VENT WITH SETTINGS ORDERED. SAFETY MEASURES IN PLACE, BED IN LOWEST LOCKED POSITION, SIDE RAILS UP X 3. CALL LIGHT WITHIN REACH. WILL CONTINUE TO MONITOR.
--- NOTE | 2021-06-08 07:56 | NUR ---
WOUND CARE CONSULT: REVIEWED CHART, NURSING DOCUMENTATION AND PHOTOS WHICH INDICATE GENERALIZED SKIN CONDITION, MULTIPLE WOUNDS, SCARS AND SCABS, PRESENT ON ADMISSION. DR MARIEE AND DR LAM CONSULTED FOR SURGICAL AND DPM CONSULTS. RECOMMENDATIONS MADE FOR SKIN PROTECTION. DISCUSSED WITH NURSING STAFF. PT IS ON FIRST STEP [facility]. IN AGREEMENT WITH PLAN OF CARE.
[2021-06-08 08:00] VITALS: BP 130/89
[2021-06-08] MEDS: MULTIVITAMINS,THERAGRAN 1 UDTAB TABLET GT SCH (09:23)
[2021-06-08] MEDS: MEROPENEM 500 MG in IV NS 0.9% 50 ML IV SCH (09:23)
[2021-06-08] MEDS: DOCUSATE SODIUM LIQ 100 MG/10 ML UDC GT SCH ×2 (09:23→20:36)
[2021-06-08] MEDS: FERROUS SULFATE (325 MG) 325 MG/TAB TABLET GT SCH (09:24)
[2021-06-08] MEDS: PANTOPRAZOLE 40 MG/PACK PACK GT SCH (09:24)
[2021-06-08] MEDS: ASCORBIC ACID 500 MG TABLET GT SCH (09:24)
[2021-06-08] MEDS: PROSTAT (PYXIS) 30 ML UDC GT SCH ×3 (09:26→16:07)
--- NOTE | 2021-06-08 10:17 | NUR ---
RN NOTES PHARMACY CALLED TO LET US KNOW OF 3.3 POTASSIUM LEVEL. MD NOTIFIED. NO NEW ORDERS AT THIS TIME.
[2021-06-08] MEDS: INSULIN REGULAR, HUMAN 100 UNIT/ML 3 ML VIAL SQ PRN ×2 (11:36→17:21)
--- NOTE | 2021-06-08 11:37 | NUR ---
RN NOTES PT'S BS IS 113. DID NOT ADMINISTER INSULIN.
[2021-06-08 12:00] VITALS: BP 126/87
[2021-06-08] MEDS ORDERED: CEFEPIME 1 GM VIAL IM SCH (12:30)
[2021-06-08] MEDS: IV D5/ 0.9% NACL 1,000 ML IV PRN ×2 (12:45→23:48)
[2021-06-08] MEDS: CEFEPIME 1 GM in IV D5W 50 ML IV SCH (12:48)
[2021-06-08] MEDS: EPOETIN ALFA (4000 UNIT) 4,000 UNIT/ML VIAL IJ SCH (14:23)
--- NOTE | 2021-06-08 14:23 | NUR ---
RN NOTES EPOGEN NOT GIVEN DUE TO HGB 12.5
--- NOTE | 2021-06-08 14:53 | NUR ---
RN NOTES ATTEMPTED TO PERFORM STRAIGHT CATH FOR URINE CULTURE. UNSUCCESSFUL DUE TO PT CONTRACTURE, CANNOT OPEN LEGS TO ACCESS URETHRA. WILL ENDORSE TO INVESTMENT PROFESSIONAL Addendum: 06/08/21 at 1818 by GI MARQUEZ RN WAS SUCCESSFULLY ABLE TO STRAIGHT CATH PT. NO URINE. PT IS DIAGNOSED ESRD AND ON DIALYSIS.
--- NOTE | 2021-06-08 15:56 | NUR ---
CHARGE NURSE NOTES PT MRSA [+] RT NARE. NOTIFIED.
[2021-06-08 16:00] VITALS: BP 112/81
--- NOTE | 2021-06-08 17:21 | NUR ---
RN NOTES NO INSULIN GIVEN PER SLIDING SCALE. PT BS IS 126.
--- NOTE | 2021-06-08 18:30 | NUR ---
RN CLOSING NOTES PT IN BED, A/O X1, UNABLE TO VERBALIZE NEEDS, D5NS AT 70 ML/HR. PATIENT ON A VENTILATOR, VENT SETTING: TRACH #P8, AC 14, TV 500, FIO2 35%, PEEP 5. PATIENT HAS IV ACCESS ON RIGHT FOREARM G#22 AND ALEX MIDLINE G#18, BOTH FLUSHING WELL AND PATENT. MRSA POSITIVE, PROPER ISOLATION PRECAUTION IN PLACE. ALL SAFETY MEASURE IN PLACE. BED IN LOWEST LOCKED POSITION AND 3 SIDE RAIL UP. CALL LIGHT WITHIN REACH. WILL ENDORSE TO PHYSICALLY IMPAIRED TEACHER NURSE.
--- NOTE | 2021-06-08 19:30 | NUR ---
RN NOTE RECEIVED PATIENT IN BED RESTING OBTUNDED NONVERBAL,CONTRACTED,ON A VENTILATOR, VENT SETTING: TRACH #P8, AC 14, TV 500, FIO2 35%, PEEP 5. IV SITE IS ON RIGHT FOREARM AND RIGHT UPPER ARM MIDLINE INTACT PATENT,ON IV D5NS 70CC/HR,ON G-TUBE,CHECKED PLACEMENT IN PLACE NO RESIDUAL NOTED,SAFETY MEASURE IMPLEMENT HEAD OF THE BED ELEVATED,BED IN LOW POSITION AND LOCKED CONTINUE TO MONITOR.
[2021-06-08 20:00] VITALS: BP 143/85
[2021-06-08] MEDS: MUPIROCIN OINT 2% 22 GM TUBE NS SCH (20:39)
[2021-06-08] MEDS: NEPRO 1,000 ML BOTTLE GT PRN (20:40)
[2021-06-09] VITALS: BP 139/91
--- NOTE | 2021-06-09 | NUR ---
RN NOTE BLOOD SUGAR IS 117 CONTINUE TO MONITOR
--- NOTE | 2021-06-09 | NUR ---
RN NOTE STARTED G-TUBE FEEDING NEPHRO 1.8 20CC/HR IF PATIENT NOT VOMITING WILL INCREASE TO REACH 70CC GOAL,CONTINUE TO MONITOR.
[2021-06-09] MEDS: METOCLOPRAMIDE HCL 10 MG/2 ML VIAL IV SCH ×4 (00:06→17:09)
[2021-06-09] MEDS: BLOOD SUGAR DIAGNOSTIC 1 EACH STRIP IN SCH ×4 (00:07→17:08)
[2021-06-09 04:00] VITALS: BP 135/87
[2021-06-09] MEDS: SEVELAMER CARBONATE 800 MG POWD.PACK GT SCH ×3 (04:21→20:32)
[2021-06-09 06:48] LABS: BASOPHILS # (AUTO) 0.1 K/uL (0.0-0.2); BASOPHILS % (AUTO) 0.4 % (0.0-2.0); EOSINOPHILS % (AUTO) 2.9 % (0.0-6.0); HEMATOCRIT 36 % (39-51); HEMOGLOBIN 11.8 g/dL (13.5-17.5); LYMPHOCYTES # (AUTO) 1.3 K/uL (0.8-4.8); LYMPHOCYTES % (AUTO) 7.4 % (20.0-44.0); MEAN CORPUSCULAR HGB CONC 33 g/dl (31.0-36.0); MEAN CORPUSCULAR VOLUME 96 fL (80-96); MONOCYTES # (AUTO) 2.1 K/uL (0.1-1.30); NEUTROPHILS # (AUTO) 13.4 K/uL (1.8-8.9); NEUTROPHILS % (AUTO) 77.3 % (43.0-81.0); PLATELET COUNT (AUTO) 255 K/uL (150-450); RED BLOOD CELL COUNT(AUTO) 3.76 MIL/uL (4.5-6.0); WHITE BLOOD COUNT (AUTO) 17.3 K/uL (4.3-11.0)
[2021-06-09 06:54] LABS: CALCIUM, SERUM 9.9 mg/dL (8.5-10.1); POTASSIUM 3.3 mmol/L (3.5-5.1)
--- NOTE | 2021-06-09 07:08 | NUR ---
RN NOTE PATIENT REMAINS ON OBTUNDED CONFUSED NON VERBAL ON VENT NO SOB NOT ACUTE DISTRESS NOTED ON D5NS IV HYDRATION 70CC/HR ALL DUE MEDS GIVEN MD ORDERED KEPT CLEAN AND DRY ALL THE TIME,REPOSITONED EVERY 2 HOURS SOFT RIGHT WRIST RESTRAIN IN PLACE CHECKED EVERY 15 MINS FOR SKIN BREAKDOWN AND CIRCULATION,G-TUBE FEEDING IS RUNNING INCREASES TO 40CC/HR ENDORSE NEXT COMING SHIFT FOR CONTINUATION OF CARE.
[2021-06-09 07:14] LABS: CREATININE 8.6 mg/dL (0.6-1.3)
[2021-06-09 08:00] VITALS: BP 130/88
[2021-06-09] MEDS: MULTIVITAMINS,THERAGRAN 1 UDTAB TABLET GT SCH (08:49)
[2021-06-09] MEDS: FERROUS SULFATE (325 MG) 325 MG/TAB TABLET GT SCH (08:49)
[2021-06-09] MEDS: ASCORBIC ACID 500 MG TABLET GT SCH (08:49)
[2021-06-09] MEDS: PANTOPRAZOLE 40 MG/PACK PACK GT SCH (08:49)
[2021-06-09] MEDS: DOCUSATE SODIUM LIQ 100 MG/10 ML UDC GT SCH ×2 (08:49→20:32)
[2021-06-09] MEDS: PROSTAT (PYXIS) 30 ML UDC GT SCH ×3 (08:50→16:31)
[2021-06-09] MEDS: MUPIROCIN OINT 2% 22 GM TUBE NS SCH ×2 (08:50→20:32)
[2021-06-09 12:00] VITALS: BP 110/80
[2021-06-09] MEDS: CEFEPIME 1 GM in IV D5W 50 ML IV SCH (13:10)
[2021-06-09 16:00] VITALS: BP 123/91
[2021-06-09] MEDS: INSULIN REGULAR, HUMAN 100 UNIT/ML 3 ML VIAL SQ PRN (17:25)
--- NOTE | 2021-06-09 17:26 | NUR ---
RN NOTES HELD INSULIN PER SLIDING SCALE. BS 79. WILL CONTINUE TO MONITOR
--- NOTE | 2021-06-09 18:47 | NUR ---
RN CLOSING NOTES PT IN BED, A/O X1, UNABLE TO VERBALIZE NEEDS, NEPRO RUNNING AT 60 CC/HR. GOAL IS 70 CC/ HR PER MD. PATIENT ON A VENTILATOR, VENT SETTING: TRACH #P8, AC 14, TV 500, FIO2 35%, PEEP 5. PATIENT HAS IV ACCESS ON RIGHT FOREARM G#22 AND ALEX MIDLINE G#18, BOTH FLUSHING WELL AND PATENT. MRSA POSITIVE, PROPER ISOLATION PRECAUTION IN PLACE. ALL SAFETY MEASURE IN PLACE. BED IN LOWEST LOCKED POSITION AND 3 SIDE RAIL UP. CALL LIGHT WITHIN REACH. WILL ENDORSE TO COMMERCIAL REPRESENTATIVE NURSE.
--- NOTE | 2021-06-09 19:30 | NUR ---
SUPERINTENDENT SCHOOLS OPENING NOTES: PATIENT OBTUNDED, IN BED, A/O X1, ON MECHANICAL VENTILATION: SETTINGS - TRACH #8, AC: 19, TV: 500, FIO2: 35. PEEP; 5. TELE MONITOR SHOWS NSR. HD CATHETER IN PLACE, 1750 CC REMOVED DURING DAY SHIFT, BED BOUND, R. FA #22 PATENT AND INTACT, ALEX MIDLINE #18 PATENT AND INTACT, G-TUBE FEEDING AT 60 CC/HR. WILL CONTINUE TO MONITOR AND ADMINISTER NURSING INTERVENTIONS NECESSARY. NO SOB OR DISTRESS NOTED.
[2021-06-09 20:00] VITALS: BP 121/69
[2021-06-10] VITALS: BP 124/79
[2021-06-10] MEDS: BLOOD SUGAR DIAGNOSTIC 1 EACH STRIP IN SCH ×4 (00:45→17:57)
[2021-06-10] MEDS: METOCLOPRAMIDE HCL 10 MG/2 ML VIAL IV SCH ×4 (00:59→17:35)
[2021-06-10 04:00] VITALS: BP 112/79
[2021-06-10] MEDS: SEVELAMER CARBONATE 800 MG POWD.PACK GT SCH ×3 (05:02→20:47)
--- NOTE | 2021-06-10 06:16 | NUR ---
ICT PROJECT MANAGER CLOSING NOTES: PATIENT IN BED, A/O X1 OBTUNDED, MECHANICAL VENTILATION TRACH # P8, AC: 19, TV: 500, FIO2: 35. PEEP: 5, O2 SAT 100%, TELE MONITOR SHOWS NSR, G-TUBE RUNNING AT 60 CC PER HOUR, 1000 CC OF FEED TAKEN IN THROUGHOUT SHIFT, R. FA #22 PATENT AND INTACT, ALEX MIDLINE #18 PATENT AND INTACT, BED AT LOWEST POSITION, SIDE RAILS UP X2, CALL LIGHT WITHIN REACH, BRAKES LOCKED AND IN POSITION, WILL CONTINUE TO MONITOR AND ENDORSE TO DAY SHIFT.
--- NOTE | 2021-06-10 07:30 | NUR ---
RN OPENING NOTES: PATIENT OBTUNDED, IN BED, A/O X1, ON MECHANICAL VENTILATION: SETTINGS - TRACH #8, AC: 19, TV: 500, FIO2: 35. PEEP; 5. TELE MONITOR SHOWS NSR. HD CATHETER IN PLACE, , BED BOUND, R. FA #22 PATENT AND INTACT, ALEX MIDLINE #18 PATENT AND INTACT, G-TUBE FEEDING AT 60 CC/HR. WILL CONTINUE TO MONITOR AND ADMINISTER NURSING INTERVENTIONS NECESSARY. NO SOB OR DISTRESS NOTED.
[2021-06-10 08:00] VITALS: BP 124/86
[2021-06-10] MEDS: ASCORBIC ACID 500 MG TABLET GT SCH (08:13)
[2021-06-10] MEDS: PANTOPRAZOLE 40 MG/PACK PACK GT SCH (08:13)
[2021-06-10] MEDS: FERROUS SULFATE (325 MG) 325 MG/TAB TABLET GT SCH (08:13)
[2021-06-10] MEDS: DOCUSATE SODIUM LIQ 100 MG/10 ML UDC GT SCH ×2 (08:13→20:46)
[2021-06-10] MEDS: MULTIVITAMINS,THERAGRAN 1 UDTAB TABLET GT SCH (08:14)
[2021-06-10] MEDS: PROSTAT (PYXIS) 30 ML UDC GT SCH ×3 (08:15→16:36)
[2021-06-10] MEDS: NEPRO 1,000 ML BOTTLE GT PRN (08:16)
[2021-06-10] MEDS: MUPIROCIN OINT 2% 22 GM TUBE NS SCH ×2 (08:48→20:52)
[2021-06-10] MEDS ORDERED: NEPRO 1,000 ML BOTTLE GT SCH (10:00)
[2021-06-10 12:00] VITALS: BP 132/91
[2021-06-10] MEDS: CEFEPIME 1 GM in IV D5W 50 ML IV SCH (12:00)
[2021-06-10] MEDS: EPOETIN ALFA (4000 UNIT) 4,000 UNIT/ML VIAL IJ SCH (15:00)
[2021-06-10 16:00] VITALS: BP 121/82
--- NOTE | 2021-06-10 18:08 | NUR ---
RN NOTES: PATIENT OBTUNDED, IN BED, A/O X1, ON MECHANICAL VENTILATION: SETTINGS - TRACH #8, AC: 19, TV: 500, FIO2: 35. PEEP; 5. TELE MONITOR SHOWS NSR. HD CATHETER IN PLACE, BED BOUND, R. FA #22 PATENT AND INTACT, ALEX MIDLINE #18 PATENT AND INTACT, G-TUBE FEEDING AT 70 CC/HR. DUE MEDICATION GIVEN, WOUND DRESSING CHANGED, NO SOB OR DISTRESS NOTED. SAFETY MEASURES OBSERVED. WILL ENDORSE TO NOC SHIFT
--- NOTE | 2021-06-10 19:10 | NUR ---
RN NOTES RECEIVED REPORT FROM MORNING RN. PATIENT OBTUNDED RESPONSIVE TO TACTILE STIMULI. NO SOB NOT IN DISTRESS AT THIS TIME. WITH TRACH PORTEX #8 CONNECTED TO MV WITH PRESCRIBED SETTINGS. WITH GT INTACT PATENT CONNECTED TO CONTINUOS FEEDING AT 70CC/HR WITH 30 GASTRIC RESIDUAL NOTED. WITH IV ACCESS AT R FA G#22, R UA MIDLINE #18 PATENT FLUSHES WELL. WITH R FEMORAL PERMA CATH INTACT NO REDNESS NOTED DRESSING IN PLACE. VITAL SIGNS TAKEN AND RECORDED. ALL SAFETY MEASURES IN PLACE AT ALL TIMES. HOB ELEVATED. BED ON LOWEST POSITION AND LOCKED. WITH SOFT R WRIST RESTRAINT IN PLACE AT ALL TIMES. CIRCULATION CHECKED. WILL CONTINUE TO MONITOR THE PATIENT
[2021-06-10 20:00] VITALS: BP 120/76
[2021-06-11] VITALS: BP 114/75
[2021-06-11] MEDS: METOCLOPRAMIDE HCL 10 MG/2 ML VIAL IV SCH ×4 (00:12→17:48)
[2021-06-11] MEDS: BLOOD SUGAR DIAGNOSTIC 1 EACH STRIP IN SCH ×4 (00:21→17:46)
--- NOTE | 2021-06-11 00:22 | NUR ---
RN NOTES BS 84MG/DL. NO COVERAGE. WILL CONTINUE TO MONITOR PATIENT ON GT FEEDING GEOFFREY
[2021-06-11 04:00] VITALS: BP 125/89
[2021-06-11] MEDS: SEVELAMER CARBONATE 800 MG POWD.PACK GT SCH ×3 (05:38→20:54)
--- NOTE | 2021-06-11 06:11 | NUR ---
RN NOTES BS 98MG/DL NO COVERAGE WILL CONTINUE TO MONITOR.
--- NOTE | 2021-06-11 06:30 | NUR ---
RN NOTES PATIENT REMAINS STABLE NO CHANGES IN HEALTH CONDITION THIS SHIFT. NO SOB, NO DISTRESS, NO EPISODE OF EMESIS. STILL ON VENT TOLERATING WELL SATING 100%. WITH R GROIN PERMA CATH INTACT. WITH GT ITACT NO RESIDUAL NOTED CONNECTED TO CONTINUOS FEEDING TOLERATING WELL BY THE PATIENT. ALL SAFETY MEASURES IN PLACE, HOB ELEVATED, CALL LIGHT WITHIN REACH. ALL NEEDS ATTENED Addendum: 06/11/21 at 0635 by FARHEEN CHI RN ALL NEEDS ATTENDED. KEPT CLEAN AND DRY AT ALL TIMES. REPOSITION PATIENT Q2H. ENDORSED
[2021-06-11 06:46] LABS: BASOPHILS # (AUTO) 0.1 K/uL (0.0-0.2); BASOPHILS % (AUTO) 0.7 % (0.0-2.0); EOSINOPHILS % (AUTO) 8.3 % (0.0-6.0); HEMATOCRIT 35 % (39-51); HEMOGLOBIN 11.7 g/dL (13.5-17.5); LYMPHOCYTES # (AUTO) 1.4 K/uL (0.8-4.8); LYMPHOCYTES % (AUTO) 10.4 % (20.0-44.0); MEAN CORPUSCULAR HGB CONC 33 g/dl (31.0-36.0); MEAN CORPUSCULAR VOLUME 96 fL (80-96); MONOCYTES # (AUTO) 1.7 K/uL (0.1-1.30); MONOCYTES % (AUTO) 12.4 % (2.0-12.0); NEUTROPHILS # (AUTO) 9.3 K/uL (1.8-8.9); NEUTROPHILS % (AUTO) 68.2 % (43.0-81.0); PLATELET COUNT (AUTO) 231 K/uL (150-450); RED BLOOD CELL COUNT(AUTO) 3.68 MIL/uL (4.5-6.0); WHITE BLOOD COUNT (AUTO) 13.7 K/uL (4.3-11.0)
[2021-06-11 07:25] LABS: POTASSIUM 3.4 mmol/L (3.5-5.1)
--- NOTE | 2021-06-11 07:30 | NUR ---
RN OPENING NOTES: PATIENT RECEIVED OBTUNDED, IN BED, A/O X1, ON MECHANICAL VENTILATION: SETTINGS - TRACH #8, AC: 19, TV: 500, FIO2: 35. PEEP; 5. TELE MONITOR SHOWS NSR. HD CATHETER IN PLACE, , BED BOUND, R. FA #22 PATENT AND INTACT, ALEX MIDLINE #18 PATENT AND INTACT, G-TUBE FEEDING AT 70 CC/HR. WILL CONTINUE TO MONITOR AND ADMINISTER NURSING INTERVENTIONS NECESSARY. NO SOB OR DISTRESS NOTED.
[2021-06-11 08:00] VITALS: BP 121/76
[2021-06-11 08:14] LABS: CREATININE 8.6 mg/dL (0.6-1.3)
[2021-06-11] MEDS: MUPIROCIN OINT 2% 22 GM TUBE NS SCH ×2 (08:50→20:55)
[2021-06-11] MEDS: MULTIVITAMINS,THERAGRAN 1 UDTAB TABLET GT SCH (08:50)
[2021-06-11] MEDS: PROSTAT (PYXIS) 30 ML UDC GT SCH ×3 (08:50→16:39)
[2021-06-11] MEDS: DOCUSATE SODIUM LIQ 100 MG/10 ML UDC GT SCH ×2 (08:50→20:54)
[2021-06-11] MEDS: ASCORBIC ACID 500 MG TABLET GT SCH (08:50)
[2021-06-11] MEDS: FERROUS SULFATE (325 MG) 325 MG/TAB TABLET GT SCH (08:50)
[2021-06-11] MEDS: PANTOPRAZOLE 40 MG/PACK PACK GT SCH (08:50)
[2021-06-11] MEDS ORDERED: VANC500F2 IV (10:07)
[2021-06-11] MEDS ORDERED: CEFE1FRO IV (10:07)
--- NOTE | 2021-06-11 11:06 | NUR ---
RN NOTE REPORT CRITICAL LAB BUN AND CREATININE TO CHARGE NURSE SOON. CONTINUE MONITOR, PT ON HD.
[2021-06-11 12:00] VITALS: BP 123/78
[2021-06-11] MEDS: CEFEPIME 1 GM in IV D5W 50 ML IV SCH (12:42)
[2021-06-11 16:16] VITALS: BP 138/90
--- NOTE | 2021-06-11 18:26 | NUR ---
RN NOTES: PATIENT OBTUNDED, IN BED, A/O X1, ON MECHANICAL VENTILATION: SETTINGS - TRACH #8, AC: 19, TV: 500, FIO2: 35. PEEP; 5. TELE MONITOR SHOWS NSR. HD CATHETER IN PLACE, BED BOUND, R. FA #22 PATENT AND INTACT, ALEX MIDLINE #18 PATENT AND INTACT, G-TUBE FEEDING AT 70 CC/hr. NO RESIDUAL NOTED.DUE MEDICATION GIVEN, WOUND DRESSING CHANGED, NO SOB OR DISTRESS NOTED. SAFETY MEASURES OBSERVED. WILL ENDORSE TO NOC SHIFT.
--- NOTE | 2021-06-11 19:15 | NUR ---
RN NOTES, PATIENT HAVING HD AT THIS TIME, PATIENT WITH SBP IN THE 60S, AND DESATURATING, HD NURSE INFORMED DR CECILE LICONA AND REPLIED WITH ORDERS TO STOP HD AND CONTINUE TO MONITOR AFTER THE SECOND BLOOD PRESSURE READING I IN HIGH 90S.
--- NOTE | 2021-06-11 19:50 | NUR ---
RN NOTES, NO FLUID REMOVED DURING HD.
[2021-06-11 20:00] VITALS: BP 132/93
[2021-06-12] VITALS: BP 121/82
[2021-06-12] MEDS: METOCLOPRAMIDE HCL 10 MG/2 ML VIAL IV SCH ×3 (00:16→12:08)
[2021-06-12] MEDS: BLOOD SUGAR DIAGNOSTIC 1 EACH STRIP IN SCH ×3 (00:22→11:45)
[2021-06-12] MEDS: INSULIN REGULAR, HUMAN 100 UNIT/ML 3 ML VIAL SQ PRN ×2 (00:23→05:40)
[2021-06-12 04:00] VITALS: BP 137/88
[2021-06-12] MEDS: SEVELAMER CARBONATE 800 MG POWD.PACK GT SCH ×2 (05:06→12:07)
--- NOTE | 2021-06-12 06:25 | NUR ---
RN NOTES: PATIENT OBTUNDED, IN BED, A/O X1, CONT ON MECHANICAL VENTILATION, TOLERATED SETTINGS WELL, COULDN'T TOLERATED HD LAST NIGHT, NO FLUID OUT, NO SOB OR DISTRESS NOTED, STABILIZED AFTER STOP HD LAST NIGHT, AFTER THAT NPO SIGNIFICANT CHANGE IN CONDITION, WITH STABLE VITAL SIGNS, SAFETY MEASURES OBSERVED, WILL ENDORSE CONTINUITY OF CARE TO ONCOMING NURSE.
--- NOTE | 2021-06-12 07:26 | NUR ---
RN OPENING NOTE PATIENT RECEIVED IN BED, OBTUNDED. ON MECHANICAL VENT. TRACH #8, AC: 19, TV: 500, FIO2: 35. PEEP; 5. PT IS NSR. HD CATHETER IN PLACE DRESSING DRY AND INTACT, RFA G#22 PATENT AND INTACT, ALEX MIDLINE #18 PATENT AND INTACT, G-TUBE IN PLACE AND PATENT. WILL CONTINUE TO MONITOR. PT NOT IN RESPIRATORY DISTRESS AT THIS TIME.
[2021-06-12 08:00] VITALS: BP 138/88
[2021-06-12] MEDS: MUPIROCIN OINT 2% 22 GM TUBE NS SCH (08:01)
[2021-06-12] MEDS: DOCUSATE SODIUM LIQ 100 MG/10 ML UDC GT SCH (08:02)
[2021-06-12] MEDS: MULTIVITAMINS,THERAGRAN 1 UDTAB TABLET GT SCH (08:03)
[2021-06-12] MEDS: FERROUS SULFATE (325 MG) 325 MG/TAB TABLET GT SCH (08:03)
[2021-06-12] MEDS: ASCORBIC ACID 500 MG TABLET GT SCH (08:03)
[2021-06-12] MEDS: PANTOPRAZOLE 40 MG/PACK PACK GT SCH (08:03)
[2021-06-12] MEDS: PROSTAT (PYXIS) 30 ML UDC GT SCH ×2 (10:28→12:08)
[2021-06-12 12:00] VITALS: BP 120/78
[2021-06-12] MEDS: CEFEPIME 1 GM in IV D5W 50 ML IV SCH (12:08)
--- NOTE | 2021-06-12 14:46 | NUR ---
RN NOTE PT D/C TO SNF. IN STABLE CONDITION, V/S WNL. NOT IN RESPIRATORY DISTRESS. WAS PICKED UP BY 2 AMBULANCE PERSONNEL AND 1 RT AROUND 14:40. ENDORSED TO LON OROPEZA FROM SNF.
== END 2021-06-12 14:40 | DRG 720 ==
LOC: ER 17:42 → TELE1 20:29
PROVIDERS: ADMIT Nurse Practitioner Acute Care; ATTEND Internal Medicine
PROC: 5A1955Z Respiratory Ventilation, Greater than 96 Consecutive Hours (ICD-10-PCS; principal; 2021-06-06)
PROC: 05HA33Z Insertion of Infusion Device into Left Brachial Vein, Percutaneous Approach (ICD-10-PCS; 2021-06-07)
PROC: 5A1D70Z Performance of Urinary Filtration, Intermittent, Less than 6 Hours Per Day (ICD-10-PCS; 2021-06-07)
DX: A41.9 Sepsis, unspecified organism (principal); J96.20 Acute and chronic respiratory failure, unspecified whether with hypoxia or hypercapnia; G93.41 Metabolic encephalopathy; E44.0 Moderate protein-calorie malnutrition; L89.154 Pressure ulcer of sacral region, stage 4; D68.59 Other primary thrombophilia; I12.0 Hypertensive chronic kidney disease with stage 5 chronic kidney disease or end stage renal disease; I69.354 Hemiplegia and hemiparesis following cerebral infarction affecting left non-dominant side; D63.1 Anemia in chronic kidney disease; N18.6 End stage renal disease; Z99.11 Dependence on respirator [ventilator] status; E11.22 Type 2 diabetes mellitus with diabetic chronic kidney disease; K44.9 Diaphragmatic hernia without obstruction or gangrene; I95.1 Orthostatic hypotension; Z99.2 Dependence on renal dialysis; Z93.1 Gastrostomy status; Z20.822 Contact with and (suspected) exposure to COVID-19; K21.00 Gastro-esophageal reflux disease with esophagitis, without bleeding; E11.40 Type 2 diabetes mellitus with diabetic neuropathy, unspecified; E11.622 Type 2 diabetes mellitus with other skin ulcer; L98.499 Non-pressure chronic ulcer of skin of other sites with unspecified severity; R13.10 Dysphagia, unspecified; Z79.4 Long term (current) use of insulin; Z79.51 Long term (current) use of inhaled steroids; Z79.899 Other long term (current) drug therapy; Z93.0 Tracheostomy status; Z74.09 Other reduced mobility; E78.5 Hyperlipidemia, unspecified; I25.10 Atherosclerotic heart disease of native coronary artery without angina pectoris; I95.3 Hypotension of hemodialysis; K29.70 Gastritis, unspecified, without bleeding; K40.90 Unilateral inguinal hernia, without obstruction or gangrene, not specified as recurrent; K76.89 Other specified diseases of liver; M24.561 Contracture, right knee; M24.562 Contracture, left knee; M89.9 Disorder of bone, unspecified; N20.0 Calculus of kidney; J40 Bronchitis, not specified as acute or chronic; L89.229 Pressure ulcer of left hip, unspecified stage; L89.319 Pressure ulcer of right buttock, unspecified stage
CPT/HCPCS: 31720; 36415; 71045-TC; 80048-TC; 80076-TC; 80164-TC; 80202-TC; 82962-TC; 83690-TC; 83735-TC; 84100-TC; 84484-TC; 85025-TC; 85652-TC; 85730-TC; 86140-TC; 86706; 87040-TC; 87081-TC; 87340; 90935-TC; 94002; 94003-TC; 94760-TC; 94762-TC; 94799-TC; 99082-TC; A4217; A4623; A6253; A6403; A7526; G0378; J0692; J0885; J1815; J2185; J2405; J2543; J2765; J3370; J7030; J7040; J7042; J7050; J7060; U0003

== ENCOUNTER 2021-06-28 12:54 | Inpatient (IN) | payer MEDICAID ==
[~2021-06-28] VITALS: Ht 182.9 cm; Wt 67.6 kg
[~2021-06-28 12:54] MED LIST changes: +CEFE1FRO IV; -EPOE4000 IJ; +EPOE4000 SQ; +VANC500F2 IV
--- NOTE | 2021-06-28 12:59 | NUR ---
R FEMORAL HD CATH INTACT. DRESSING KEPT C/D/I
--- NOTE | 2021-06-28 12:59 | NUR ---
TO ER BED 11, JONATHAN FROM [facility] SENT BY PMD FOR ELEVATED WBC, NONVERBAL, CONNECTED TO MONITOR, RESPIRATORY AT BEDSIDE
--- NOTE | 2021-06-28 13:48 | NUR ---
pt. received via gurney placed into mechanical ventilator via trach size #8 portex with cuffed inflated. vent parameters below set per rt Transporter: ac 14, vt 500ml, fio2 40%, peep +5 breath sounds coarse rhonchi bilateral, sxn moderate amnt astudillo semi thick secretions. vent plugged into red outlet with alarms on and functioning. BVM @ bedside. Addendum: 06/28/21 at 1353 by EDYTA C[place] RT Amended: Links added.
--- NOTE | 2021-06-28 13:48 | NUR ---
DEBBIE #20G S/L; PATENT AND INTACT. BLOOD COLLECTED AND SENT TO LAB
[2021-06-28] MEDS ORDERED: CHLO473M5 MM (14:05)
[2021-06-28] MEDS ORDERED: FOLI0.8T2 GT (14:05)
[2021-06-28] MEDS ORDERED: ZINC1CAP3 GT (14:05)
[2021-06-28] MEDS ORDERED: HYDR-500 GT (14:05)
[2021-06-28] MEDS ORDERED: METO-295 GT (14:05)
[2021-06-28] MEDS ORDERED: ACET-868 GT (14:05)
[2021-06-28] MEDS ORDERED: ZINC56.713 TP (14:05)
[2021-06-28] MEDS ORDERED: collagen TD (14:05)
[2021-06-28 14:17] LABS: BASOPHILS # (AUTO) 0.1 K/uL (0.0-0.2); BASOPHILS % (AUTO) 0.4 % (0.0-2.0); EOSINOPHILS % (AUTO) 3.3 % (0.0-6.0); HEMATOCRIT 29 % (39-51); HEMOGLOBIN 9.3 g/dL (13.5-17.5); LYMPHOCYTES % (AUTO) 4.9 % (20.0-44.0); MEAN CORPUSCULAR HGB CONC 32 g/dl (31.0-36.0); MEAN CORPUSCULAR VOLUME 100 fL (80-96); MONOCYTES # (AUTO) 1.7 K/uL (0.1-1.30); MONOCYTES % (AUTO) 8.1 % (2.0-12.0); NEUTROPHILS % (AUTO) 83.3 % (43.0-81.0); PLATELET COUNT (AUTO) 295 K/uL (150-450); RED BLOOD CELL COUNT(AUTO) 2.87 MIL/uL (4.5-6.0); WHITE BLOOD COUNT (AUTO) 20.4 K/uL (4.3-11.0)
[2021-06-28 14:27] LABS: CALCIUM, SERUM 9.1 mg/dL (8.5-10.1); POTASSIUM 3.7 mmol/L (3.5-5.1)
[2021-06-28 14:29] LABS: CREATININE 8.8 mg/dL (0.6-1.3)
[2021-06-28 14:33] LABS: BILIRUBIN,DIRECT 0.1 mg/dL (0.0-0.2); BILIRUBIN,TOTAL 0.4 mg/dL (0.2-1.0); TOTAL PROTEIN, SERUM 8.1 g/dL (6.4-8.2)
--- NOTE | 2021-06-28 14:34 | NUR ---
CRITICAL LABS REPORTED TO BETSY: BUN 101 CR 8.8
--- NOTE | 2021-06-28 15:11 | NUR ---
CRITICAL LAB REPORTED TO BETSY GARCIA: LACTIC ACID 2.5
[2021-06-28] MEDS ORDERED: IV LR 500 ML IV ONE (15:30)
[2021-06-28] MEDS ORDERED: VANCOMYCIN HCL 1.25 GM in IV D5W 260 ML IV ONE (15:30)
[2021-06-28] MEDS ORDERED: PIPERACILLIN /TAZOBACTAM 3.375 G in IV D5W 50 ML IV ONE (15:30)
--- NOTE | 2021-06-28 17:40 | NUR ---
CALLED DR. NIXON RUTLEDGE WILL CALL US BACK.
--- NOTE | 2021-06-28 17:43 | NUR ---
COVID ANTIGEN AND PCR SWAB DONE AND SENT TO LAB
--- NOTE | 2021-06-28 17:57 | NUR ---
CALLED DR. RUTLEDGE [phone]
--- NOTE | 2021-06-28 19:14 | NUR ---
REPORT GIVEN TO TIFFANY FORREST FOR DENNIS
--- NOTE | 2021-06-28 19:21 | NUR ---
BOAT PERSON AT PT'S BEDSIDE
--- NOTE | 2021-06-28 19:35 | NUR ---
RT CALLED TO CHECK VENT SETTINGS
--- NOTE | 2021-06-28 19:45 | NUR ---
RT AT BEDSIDE
--- NOTE | 2021-06-28 19:46 | NUR ---
MRSA SWAB COLLECTED AND SENT TO LAB. PATIENT'S BELONGINGS LIST DONE.
--- NOTE | 2021-06-28 19:50 | NUR ---
CALLED FOR BED
[2021-06-28] MEDS ORDERED: NEPRO VAN 237 ML CAN GT SCH (20:00)
[2021-06-28] MEDS ORDERED: Z GUARD REMEDY 4 OZ OINT TP PRN (20:00)
[2021-06-28] MEDS ORDERED: ACETAMINOPHEN 325 MG TABLET PO PRN (20:00)
[2021-06-28] MEDS ORDERED: DEXTROSE 50%-WATER 50 ML DISP.SYRIN IV PRN (20:00)
[2021-06-28] MEDS ORDERED: Medication Not On Formulary EA (Ipratropium/Albuterol Sulfate (Duoneb 2.5-0.5 Mg/3 Ml So IH PRN (20:00)
[2021-06-28] MEDS ORDERED: ZINC OXIDE 56.7 GM TUBE TP PRN (20:00)
[2021-06-28] MEDS ORDERED: SIMETHICONE 80 MG TAB.CHEW GT PRN (20:00)
[2021-06-28] MEDS ORDERED: ONDANSETRON HCL/PF 4 MG/2 ML VIAL IVP PRN (20:00)
[2021-06-28] MEDS ORDERED: ACETAMINOPHEN ES 500 MG TABLET GT PRN (20:00)
[2021-06-28] MEDS ORDERED: PIPERACILLIN /TAZOBACTAM 2.255 G in IV D5W 50 ML IV SCH (21:00)
--- NOTE | 2021-06-28 21:17 | NUR ---
ASSIGNED TO 117-1
--- NOTE | 2021-06-28 22:13 | NUR ---
report given to Karen arboleda
[2021-06-28] MEDS ORDERED: ALBUTEROL FS 2.5 MG/0.5 ML VIAL.NEB NEB PRN (22:30)
[2021-06-28] MEDS ORDERED: IPRATROPIUM NEB FS 0.5 MG/2.5 ML AMPUL.NEB IH PRN (22:30)
[2021-06-28] MEDS ORDERED: hydrOXYzine HCL SYRUP 10 MG/5 ML UDC GT PRN (22:30)
[2021-06-28] MEDS ORDERED: MIDODRINE HCL (5MG) 5 MG TABLET GT PRN (22:30)
--- NOTE | 2021-06-28 22:30 | NUR ---
pt transported via acls in stable condition.
--- NOTE | 2021-06-28 22:30 | NUR ---
AUTO DESIGN DETAILERWEB MANAGER NOTE PATIENT BROUGHT IN AT THIS TIME BY ER NURSES VIA HOSPITAL BED. PATIENT UNABLE TO COMPREHEND. AROUSABLE TO TOUCH AND STIMULI. NO S/S OF APPARENT DISTRESS-- VENT DEPENDENT. NOT EXHIBITING PAIN VIA FLACC. PATIENT BLE VERY RIGID AND L. SIDE ARM SEVERELY WEAK. CAME IN WITH MITTENS ON. PATIENT RIGHT ARM STRONG AND IS ABLE TO PULL OUT LINES-- WILL NEED RESTRAINTS. G-TUBE IN PLACE -- FLUSHED AND CARED FOR. IV ACCESS ON L. HAND INTACT AND PATENT-- NO FLUIDS RUNNING AT THIS TIME. PATIENT NOTED TO HAVE PRESSURE ULCERS ON SACRUM AND BILATERAL BUTTOCKS -- WILL NEED WOUND CONSULT. PICTURE TAKEN. SAFETY IN PLACE. WILL CARRY OUT DOCTORS ORDERS.
--- NOTE | 2021-06-28 22:54 | NUR ---
transferred to 117 under acls
[2021-06-28] MEDS ORDERED: PIPERACILLIN /TAZOBACTAM 2.25 G VIAL IV ONE (23:17)
[2021-06-28] MEDS: PIPERACILLIN /TAZOBACTAM 2.255 G in IV D5W 50 ML IV SCH (23:41)
[2021-06-28] MEDS: SEVELAMER CARBONATE 800 MG POWD.PACK GT SCH (23:48)
[2021-06-28] MEDS: CHLORHEXIDINE GLUCONATE 15 ML UDC MM SCH (23:48)
[2021-06-28] MEDS: DOCUSATE SODIUM 100 MG CAPSULE PO SCH (23:49)
[2021-06-29] MEDS ORDERED: Medication Not On Formulary EA (Ipratropium/Albuterol Sulfate (Duoneb 2.5-0.5 Mg/3 Ml So IH SCH
--- NOTE | 2021-06-29 | NUR ---
PATIENT CARE TECHNICIAN INSTRUCTOR NOTE BS 73. NO COVERAGE NEEDED.
[2021-06-29 00:45] VITALS: BP 112/65
--- NOTE | 2021-06-29 01:06 | NUR ---
MILKER MACHINE NOTE R. SOFT WRIST RESTRAINTS IN PLACE. PATIENT PULLING OUT TRACH AND UNABLE TO COMPREHEND AFTER MANY INTERVENTIONS. WILL CONTINUE TO MONITOR.
[2021-06-29] MEDS: ALBUTEROL FS 2.5 MG/0.5 ML VIAL.NEB NEB SCH ×4 (01:30→19:30)
[2021-06-29] MEDS: IPRATROPIUM NEB FS 0.5 MG/2.5 ML AMPUL.NEB IH SCH ×4 (01:30→19:30)
[2021-06-29] MEDS: BLOOD SUGAR DIAGNOSTIC 1 EACH STRIP IN SCH ×4 (01:42→17:52)
[2021-06-29] MEDS: INSULIN REGULAR, HUMAN 100 UNIT/ML 3 ML VIAL SQ PRN ×2 (01:43→06:14)
[2021-06-29] MEDS ORDERED: PIPERACILLIN /TAZOBACTAM 2.25 G VIAL IV ONE (04:47)
[2021-06-29] MEDS: PIPERACILLIN /TAZOBACTAM 2.255 G in IV D5W 50 ML IV SCH (04:57)
[2021-06-29] MEDS: SEVELAMER CARBONATE 800 MG POWD.PACK GT SCH ×3 (04:58→21:15)
--- NOTE | 2021-06-29 06:00 | NUR ---
FLOOR ASSEMBLER NOTE BS 71. NO COVERAGE NEEDED.
--- NOTE | 2021-06-29 06:39 | NUR ---
RADIO MESSAGE ROUTER CLOSING NOTE PATIENT SLEEPING COMFORTABLY IN BED, EASY TO AROUSE. NO S/S OF APPARENT DISTRESS-VENT DEPENDENT. NOT EXHIBITING PAIN VIA FLACC. TELE MONITOR READING SINUS FUNMI IN THE 50'S. ALL NEEDS ATTENDED. ALL SCHEDULED MEDICATION ADMINISTERED. WILL ENDORSE TO MORNING SHIFT RN FOR CONTINUITY OF CARE.
--- NOTE | 2021-06-29 07:30 | NUR ---
RT HHN tx not given due to pending PCR, no SOB or respiratory distress noted.
--- NOTE | 2021-06-29 07:30 | NUR ---
GRAIN DRIER OPERATOR OPENING NOTES RECEIVED PATIENT SLEEPING COMFORTABLY IN BED, EASY TO AROUSE. NO S/S OF APPARENT DISTRESS-VENT DEPENDENT. NOT EXHIBITING PAIN VIA FLACC. ON TELE MONITOR READING SINUS RHYTHM AT 71BPM. WITH IV ACCESS AT LEFT UPPER ARM G20, SALINE LOCKED, PATENT AND INTACT. SAFETY MEASURES IN PLACE. CALL LIGHT WITHIN REACH. BED ON LOWEST LOCKED POSITION, SIDE RAILS UP X2. WILL CONTINUE TO MONITOR.
[2021-06-29] MEDS ORDERED: VANCOMYCIN POST DIALYSIS 500MG IV PRN ×2 (08:00)
[2021-06-29 08:42] LABS: MAGNESIUM 3.7 mg/dL (1.8-2.4)
[2021-06-29 08:44] LABS: BASOPHILS # (AUTO) 0.1 K/uL (0.0-0.2); BASOPHILS % (AUTO) 0.5 % (0.0-2.0); HEMATOCRIT 25 % (39-51); LYMPHOCYTES # (AUTO) 1.2 K/uL (0.8-4.8); LYMPHOCYTES % (AUTO) 9.4 % (20.0-44.0); MEAN CORPUSCULAR HGB CONC 33 g/dl (31.0-36.0); MEAN CORPUSCULAR VOLUME 101 fL (80-96); MONOCYTES % (AUTO) 7.6 % (2.0-12.0); NEUTROPHILS # (AUTO) 9.6 K/uL (1.8-8.9); NEUTROPHILS % (AUTO) 75.5 % (43.0-81.0); PLATELET COUNT (AUTO) 229 K/uL (150-450); RED BLOOD CELL COUNT(AUTO) 2.45 MIL/uL (4.5-6.0); WHITE BLOOD COUNT (AUTO) 12.7 K/uL (4.3-11.0)
[2021-06-29 08:47] LABS: CALCIUM, SERUM 9.4 mg/dL (8.5-10.1)
[2021-06-29 08:49] LABS: CREATININE 9.9 mg/dL (0.6-1.3)
[2021-06-29] MEDS ORDERED: PREVACID (NF) 30 MG TAB GT SCH (09:00)
[2021-06-29] MEDS: CHLORHEXIDINE GLUCONATE 15 ML UDC MM SCH ×2 (09:14→21:16)
[2021-06-29] MEDS: EPOETIN ALFA (4000 UNIT) 4,000 UNIT/ML VIAL SQ SCH (09:14)
[2021-06-29] MEDS: ZINC SULFATE 220 MG CAPSULE GT SCH (09:14)
[2021-06-29] MEDS: METOCLOPRAMIDE HCL 10 MG TABLET GT SCH ×2 (09:14→16:45)
[2021-06-29] MEDS: PANTOPRAZOLE 40 MG/PACK PACK GT SCH (09:15)
[2021-06-29] MEDS: DOCUSATE SODIUM 100 MG CAPSULE PO SCH ×2 (09:15→21:20)
[2021-06-29] MEDS: ASCORBIC ACID 500 MG TABLET GT SCH (09:15)
[2021-06-29] MEDS: MULTIVITAMINS,THERAGRAN 1 UDTAB TABLET GT SCH (09:15)
[2021-06-29] MEDS: FERROUS SULFATE (325 MG) 325 MG/TAB TABLET GT SCH (09:15)
[2021-06-29] MEDS: VIT B CMPLX 3/FA/VIT C/BIOTIN 1 TAB TABLET GT SCH (09:15)
--- NOTE | 2021-06-29 10:17 | NUR ---
WOUND CARE CONSULT: REVIEWED CHART, NURSING DOCUMENTATION AND PHOTOS WHICH INDICATE SCARRING TO SACRUM AND BILATERAL BUTTOCKS WITH INCONTINENCE ASSOCIATED SKIN DAMAGE OVER SCARRING WELL MULTIPLE SCARS TO LOWER EXTREMITIES, PRESENT ON ADMISSION. RECOMMENDATIONS MADE FOR SKIN PROTECTION. DISCUSSED WITH NURSING STAFF. FIRST STEP LOW AIRLOSS MATTRESS IS ON ORDER. DR MARIEE AND DR LAM AWARE OF PT READMISSION. MD IN AGREEMENT WITH PLAN OF CARE.
[2021-06-29] MEDS: PIPERACILLIN /TAZOBACTAM 2.25 G in IV D5W 50 ML IV SCH ×2 (12:19→21:15)
--- NOTE | 2021-06-29 19:30 | NUR ---
GEOGRAPHIC INFORMATION SYSTEMS ENGINEER OPENING NOTES: RECEIVED PATIENT FROM DAY SHIFT, PATIENT IN BED, ON VENTILATOR, DEBBIE #20 PATENT AND INTACT, FEMORAL HD CATH, G-TUBE, NO SIGNS OF SOB, NO DISTRESS NOTED, BED AT LOWEST POSITION, BRAKES LOCKED AND IN PLACE, CALL LIGHT WITHIN REACH, SIDE RAILS UP X2, PATIENT SEEMS AGITATED AND IS PULLING OUT TRACHEOSTOMY TUBINGS, WILL CONTINUE TO MONITOR AND ADMINISTER NURSING INTERVENTIONS NEEDED.
--- NOTE | 2021-06-29 19:46 | NUR ---
GLOBAL CMO CLOSING NOTES PATIENT SLEEPING COMFORTABLY IN BED, EASY TO AROUSE. NO S/S OF APPARENT DISTRESS-VENT DEPENDENT. NOT EXHIBITING PAIN VIA FLACC. ON TELE MONITOR READING SINUS RHYTHM AT 74BPM. WITH IV ACCESS AT LEFT UPPER ARM G20, SALINE LOCKED, PATENT AND INTACT. DUE MEDS GIVEN. SAFETY MEASURES IN PLACE. CALL LIGHT WITHIN REACH. BED ON LOWEST LOCKED POSITION, SIDE RAILS UP X2. WILL ENDORSE TO NEXT SHIFT FOR DENNIS.
[2021-06-29] MEDS ORDERED: LORAZEPAM INJ 2 MG/ML VIAL IV PRN (21:00)
--- NOTE | 2021-06-29 21:15 | NUR ---
RT NOTE LATE ENTRY Upon arrival in pt's room, low VT alarms is noted. When applying air into cuff, trached cuff is unable to stay inflated. RN and Charged RN aware of ruptured cuff. New trach tube via Portex 8 cuffed inserted, pt is able to maintain adequate VT. Trach is patent and secured. Pt shows no signs of resp distress or sob. Alarms are set and audible. Ambu bag and emergency spare trach @ bedside. Will continue to monitor closely.
[2021-06-29] MEDS: NEPRO 1,000 ML BOTTLE GT SCH (21:19)
--- NOTE | 2021-06-29 21:20 | NUR ---
MAINTENANCE MECHANIC TECHNICIAN NOTE VENT WAS ALARMING OFTEN, INFORMED THE RT, PER RT TRACH IS WITH BLOWN CUFF. INFORMED PILAR AUTOMATION CONTROLS EXPERT, RECEIVED NEW ORDER, ORDER NOTED AND CARRIED OUT. RT REPLACED THE TRACH. NO FURTHER DISTRESS NOTED.
--- NOTE | 2021-06-30 | NUR ---
WELT CUTTER NOTES: 0000 - BLOOD SUGAR CHECK - 77
[2021-06-30] MEDS: BLOOD SUGAR DIAGNOSTIC 1 EACH STRIP IN SCH ×4 (00:01→17:14)
[2021-06-30] MEDS ORDERED: EPOETIN ALFA (10,000 UNIT) 10,000 UNIT/ML VIAL IV SCH (01:00)
[2021-06-30] MEDS: IPRATROPIUM NEB FS 0.5 MG/2.5 ML AMPUL.NEB IH SCH ×4 (01:30→19:30)
[2021-06-30] MEDS: ALBUTEROL FS 2.5 MG/0.5 ML VIAL.NEB NEB SCH ×4 (01:30→19:30)
[2021-06-30 04:00] VITALS: BP 120/78
[2021-06-30] MEDS: SEVELAMER CARBONATE 800 MG POWD.PACK GT SCH ×3 (05:39→22:02)
[2021-06-30] MEDS: PIPERACILLIN /TAZOBACTAM 2.25 G in IV D5W 50 ML IV SCH ×3 (05:40→22:02)
--- NOTE | 2021-06-30 06:12 | NUR ---
SHIRT LINE OPERATOR NOTES: BLOOD SUGAR 118 AT 0600
--- NOTE | 2021-06-30 06:37 | NUR ---
ENVIRONMENTAL CONSTRUCTION ENGINEER CLOSING NOTES: PATIENT IN BED, PATIENT A/O X0 OBTUNDED, ON VENTILATOR, TELE MONITOR SHOWS SR-SB, EYES OPEN TO STIMULI, R. HAND ON SOFT RESTRAINTS AND MITTEN, PATIENT ATTEMPTS TO REMOVE TRACHEOSTOMY TUBES, DEBBIE #20 SL, PATENT AND INTACT, R. FEMORAL HD CATH, , NO SIGNS OF SOB, NO DISTRESS NOTED, BED AT LOWEST POSITION, BRAKES LOCKED AND IN POSITION, SIDE RAILS UP X2, CALL LIGHT WITHIN REACH, WILL CONTINUE TO MONITOR AND IMPLEMENT NURSING INTERVENTIONS NEEDED. WILL ENDORSE TO DAY SHIFT NURSE.
--- NOTE | 2021-06-30 07:24 | NUR ---
RN OPENING NOTES; PT IN BED IN SUPINE POS. PT IS OBTUNDED. PT RESPONDS TO NAME WITH EYE OPENING. NO C/O PAIN OR DISTRESS AT THIS TIME EVIDENT BY FACIAL EXPRESSION. PT ON R WRIST SOFT RESTRAINTS TO BE RENEWED AT 0100 07/01/21. DEBBIE #20G AND FEMORAL HD CATH NOTED. ALL SAFETY MEASURES RENDERED, BED LOCKED, IN LOWEST POS. SIDERAILS X2, WITH CALL LIGHT WITHIN REACH. WILL CONTINUE TO MONITOR.
[2021-06-30 08:00] VITALS: BP 149/68
[2021-06-30] MEDS: CHLORHEXIDINE GLUCONATE 15 ML UDC MM SCH ×2 (08:36→22:02)
[2021-06-30] MEDS: VIT B CMPLX 3/FA/VIT C/BIOTIN 1 TAB TABLET GT SCH (08:36)
[2021-06-30] MEDS: METOCLOPRAMIDE HCL 10 MG TABLET GT SCH ×2 (08:36→16:38)
[2021-06-30] MEDS: PANTOPRAZOLE 40 MG/PACK PACK GT SCH (08:36)
[2021-06-30] MEDS: FERROUS SULFATE (325 MG) 325 MG/TAB TABLET GT SCH (08:36)
[2021-06-30] MEDS: ZINC SULFATE 220 MG CAPSULE GT SCH (08:36)
[2021-06-30] MEDS: DOCUSATE SODIUM 100 MG CAPSULE PO SCH ×2 (08:36→22:02)
[2021-06-30] MEDS: ASCORBIC ACID 500 MG TABLET GT SCH (08:36)
[2021-06-30] MEDS: MULTIVITAMINS,THERAGRAN 1 UDTAB TABLET GT SCH (08:36)
[2021-06-30 08:39] LABS: CALCIUM, SERUM 9.5 mg/dL (8.5-10.1)
[2021-06-30 09:23] LABS: BASOPHILS # (AUTO) 0.1 K/uL (0.0-0.2); BASOPHILS % (AUTO) 0.9 % (0.0-2.0); EOSINOPHILS % (AUTO) 8.1 % (0.0-6.0); HEMATOCRIT 27 % (39-51); HEMOGLOBIN 8.9 g/dL (13.5-17.5); LYMPHOCYTES # (AUTO) 1.2 K/uL (0.8-4.8); LYMPHOCYTES % (AUTO) 9.8 % (20.0-44.0); MEAN CORPUSCULAR HGB CONC 34 g/dl (31.0-36.0); MEAN CORPUSCULAR VOLUME 100 fL (80-96); MONOCYTES % (AUTO) 8.4 % (2.0-12.0); NEUTROPHILS # (AUTO) 8.9 K/uL (1.8-8.9); NEUTROPHILS % (AUTO) 72.8 % (43.0-81.0); PLATELET COUNT (AUTO) 257 K/uL (150-450); RED BLOOD CELL COUNT(AUTO) 2.64 MIL/uL (4.5-6.0); WHITE BLOOD COUNT (AUTO) 12.2 K/uL (4.3-11.0)
[2021-06-30] MEDS: INSULIN REGULAR, HUMAN 100 UNIT/ML 3 ML VIAL SQ PRN ×2 (11:20→17:15)
--- NOTE | 2021-06-30 11:20 | NUR ---
RN NOTES; B/S TAKEN WITH RESULT OF 101. NO COVERAGE GIVEN PER SLIDING SCALE. WILL CONTINUE TO MONITOR.
[2021-06-30 12:00] VITALS: BP 122/77
[2021-06-30] MEDS: NEPRO 1,000 ML BOTTLE GT SCH (12:41)
[2021-06-30 16:00] VITALS: BP 122/70
--- NOTE | 2021-06-30 17:15 | NUR ---
RN NOTES; B/S TAKEN WITH RESULT OF 99. NO COVERAGE NEEDED PER SLIDING SCALE. WILL CONTINUE TO MONITOR.
[2021-06-30 20:00] VITALS: BP 106/75
[2021-07-01] VITALS: BP 133/69
[2021-07-01] MEDS: BLOOD SUGAR DIAGNOSTIC 1 EACH STRIP IN SCH ×4 (00:30→17:25)
[2021-07-01] MEDS: ALBUTEROL FS 2.5 MG/0.5 ML VIAL.NEB NEB SCH ×4 (01:03→19:30)
[2021-07-01] MEDS: IPRATROPIUM NEB FS 0.5 MG/2.5 ML AMPUL.NEB IH SCH ×4 (01:03→19:30)
[2021-07-01] MEDS: NEPRO 1,000 ML BOTTLE GT SCH ×2 (03:28→16:12)
[2021-07-01 04:00] VITALS: BP 120/76
[2021-07-01] MEDS: PIPERACILLIN /TAZOBACTAM 2.25 G in IV D5W 50 ML IV SCH ×3 (05:43→20:25)
[2021-07-01] MEDS: SEVELAMER CARBONATE 800 MG POWD.PACK GT SCH ×3 (05:43→20:25)
--- NOTE | 2021-07-01 07:04 | NUR ---
RN OPENING NOTES; PT IN BED IN SUPINE POS. PT IS OBTUNDED. PT RESPONDS TO NAME WITH EYE OPENING. NO C/O PAIN OR DISTRESS AT THIS TIME EVIDENT BY FACIAL EXPRESSION. PT ON R WRIST SOFT, NOTED, RELEASED PER PROTOCOL. DEBBIE #20G AND FEMORAL HD CATH NOTED. PT HAD DIALYSIS LAST NIGHT AND WAS ABLE TO REMOVE 1.5L OF FLUID. ALL SAFETY MEASURES RENDERED, BED LOCKED, IN LOWEST POS. SIDERAILS X2, WITH CALL LIGHT WITHIN REACH. WILL CONTINUE TO MONITOR.
[2021-07-01 07:40] LABS: CREATININE 6.5 mg/dL (0.6-1.3); MAGNESIUM 3.1 mg/dL (1.8-2.4); PHOSPHORUS 2.9 mg/dL (2.5-4.9); POTASSIUM 3.7 mmol/L (3.5-5.1)
[2021-07-01 07:43] LABS: BASOPHILS # (AUTO) 0.1 K/uL (0.0-0.2); BASOPHILS % (AUTO) 0.4 % (0.0-2.0); EOSINOPHILS % (AUTO) 3.9 % (0.0-6.0); HEMATOCRIT 24 % (39-51); HEMOGLOBIN 8.2 g/dL (13.5-17.5); LYMPHOCYTES # (AUTO) 0.6 K/uL (0.8-4.8); LYMPHOCYTES % (AUTO) 4.8 % (20.0-44.0); MEAN CORPUSCULAR HGB CONC 33 g/dl (31.0-36.0); MEAN CORPUSCULAR VOLUME 99 fL (80-96); MONOCYTES # (AUTO) 1.7 K/uL (0.1-1.30); MONOCYTES % (AUTO) 13.3 % (2.0-12.0); NEUTROPHILS # (AUTO) 9.8 K/uL (1.8-8.9); NEUTROPHILS % (AUTO) 77.6 % (43.0-81.0); PLATELET COUNT (AUTO) 265 K/uL (150-450); RED BLOOD CELL COUNT(AUTO) 2.46 MIL/uL (4.5-6.0); WHITE BLOOD COUNT (AUTO) 12.6 K/uL (4.3-11.0)
[2021-07-01 08:00] VITALS: BP 124/73
[2021-07-01] MEDS: FERROUS SULFATE (325 MG) 325 MG/TAB TABLET GT SCH (08:33)
[2021-07-01] MEDS: DOCUSATE SODIUM 100 MG CAPSULE PO SCH ×2 (08:33→20:26)
[2021-07-01] MEDS: CHLORHEXIDINE GLUCONATE 15 ML UDC MM SCH ×2 (08:33→20:26)
[2021-07-01] MEDS: PANTOPRAZOLE 40 MG/PACK PACK GT SCH (08:33)
[2021-07-01] MEDS: ZINC SULFATE 220 MG CAPSULE GT SCH (08:33)
[2021-07-01] MEDS: VIT B CMPLX 3/FA/VIT C/BIOTIN 1 TAB TABLET GT SCH (08:33)
[2021-07-01] MEDS: MULTIVITAMINS,THERAGRAN 1 UDTAB TABLET GT SCH (08:33)
[2021-07-01] MEDS: ASCORBIC ACID 500 MG TABLET GT SCH (08:33)
[2021-07-01] MEDS: METOCLOPRAMIDE HCL 10 MG TABLET GT SCH ×2 (08:33→16:11)
[2021-07-01] MEDS: EPOETIN ALFA (4000 UNIT) 4,000 UNIT/ML VIAL SQ SCH (08:34)
[2021-07-01] MEDS: INSULIN REGULAR, HUMAN 100 UNIT/ML 3 ML VIAL SQ PRN ×2 (11:03→17:26)
--- NOTE | 2021-07-01 11:03 | NUR ---
RN NOTES; B/S TAKEN WITH RESULT OF 114. NO COVERAGE NEEDED PER SLIDING SCALE. WILL CONTINUE TO MONITOR.
[2021-07-01 12:55] VITALS: BP 131/84
[2021-07-01 16:00] VITALS: BP 129/79
--- NOTE | 2021-07-01 17:26 | NUR ---
RN NOTES; B/S TAKEN WITH RESULT OF 126. NO COVERAGE GIVEN PER SLIDING SCALE. WILL CONTINUE TO MONITOR.
--- NOTE | 2021-07-01 18:40 | NUR ---
RN CLOSING NOTES; PT IN BED IN SUPINE POS. REPOSITION PER PROTOCOL. PT ON MECH VENT WITH SETTINGS ORDERED. NO SOB, OR DISTRESS NOTED AT THIS TIME. PT ON GTUBE FEEDING NEPRO @75ML/HR, GTUBE FLUSHED, WITH NO RESIDUALS NOTED. PT KEPT CLEAN, DRY, AND COMFORTABLE. SAFETY MEASURES RENDERED, BED IN LOWEST POS. LOCKED, SIDE RAILSX2, WITH CALL LIGHT WITHIN REACH. NO SIGNIFICANT CHANGES TO PT HEALTH STATUS ON SHIFT. WILL ENDORSE TO WELLNESS SPA MANAGER RN. PT IN STABLE CONDITION.
--- NOTE | 2021-07-01 19:20 | NUR ---
RN OPENING NOTES RECEIVED PATIENT ON BED ALERT AND VERBALLY RESPONSIVE. PATIENT IS MECHANICAL VENT TOLERATED WELL , NO SOB NOTED, NO S/S OF DISTRESS NOTED. PATIENT WITH LEFT HAND PERIPHERAL LINE #20. WITH GTUBE FEEDING NEPHRO @ 75 ML/HR, HOB KEPT ELEVATED, INPLACED, INTACT AND INFUSING WELL, NO RESIDUAL NOTED UPON ASPIRATION. ALL DUE MEDS GIEN ORDERED. ALL SAFETY MEASURE IN PLACE. BED ON LOWEST POSITION, LOCKED BED ALARM ARMED. CALL LIGHT WITHIN REACH. WILL CONTINUE TO MONITOR
--- NOTE | 2021-07-01 19:50 | NUR ---
BREATHING TX NOT GIVEN DUE TO PENDING PCR COVID TEST RESULT. NO RESPIRATORY DISTRESS NOTED. SPO2 100%, WILL CONTINUE TO MONITOR T/O SHIFT.
[2021-07-01 20:00] VITALS: BP 115/55
--- NOTE | 2021-07-01 20:25 | NUR ---
RN NOTES PATIENT NOTED WITH FEVER 99.9 FAHRENHEIT, COOLING MEASURE DONE, ACETAMINOPHEN 650MG GIVEN PER MD'S ORDER, ALSO PATIENT NOTED WITH VOMITING X1 MODERATE AMOUNT. ZOFRAN 4MG GIVEN PER MD'S ORDER. WILL CONTINUE TO MONITOR.
[2021-07-02] VITALS: BP 112/66
[2021-07-02] MEDS: BLOOD SUGAR DIAGNOSTIC 1 EACH STRIP IN SCH ×4 (00:47→17:33)
[2021-07-02] MEDS: ALBUTEROL FS 2.5 MG/0.5 ML VIAL.NEB NEB SCH ×4 (01:30→20:26)
[2021-07-02] MEDS: IPRATROPIUM NEB FS 0.5 MG/2.5 ML AMPUL.NEB IH SCH ×4 (01:30→20:26)
[2021-07-02 04:00] VITALS: BP 100/59
[2021-07-02] MEDS: SEVELAMER CARBONATE 800 MG POWD.PACK GT SCH ×3 (05:39→21:47)
[2021-07-02] MEDS: PIPERACILLIN /TAZOBACTAM 2.25 G in IV D5W 50 ML IV SCH ×3 (05:40→21:46)
[2021-07-02 07:14] LABS: BASOPHILS # (AUTO) 0.1 K/uL (0.0-0.2); BASOPHILS % (AUTO) 0.8 % (0.0-2.0); EOSINOPHILS % (AUTO) 5.4 % (0.0-6.0); HEMATOCRIT 24 % (39-51); HEMOGLOBIN 7.8 g/dL (13.5-17.5); LYMPHOCYTES # (AUTO) 1.2 K/uL (0.8-4.8); LYMPHOCYTES % (AUTO) 9.5 % (20.0-44.0); MEAN CORPUSCULAR HGB CONC 33 g/dl (31.0-36.0); MEAN CORPUSCULAR VOLUME 101 fL (80-96); MONOCYTES # (AUTO) 1.7 K/uL (0.1-1.30); MONOCYTES % (AUTO) 14.3 % (2.0-12.0); NEUTROPHILS # (AUTO) 8.5 K/uL (1.8-8.9); PLATELET COUNT (AUTO) 229 K/uL (150-450); RED BLOOD CELL COUNT(AUTO) 2.35 MIL/uL (4.5-6.0); WHITE BLOOD COUNT (AUTO) 12.2 K/uL (4.3-11.0)
--- NOTE | 2021-07-02 07:30 | NUR ---
RN CLOSING NOTES NO SIGNIFICANT CHANGES THROUGH OUT THE SHIFT. PATIENT IS MECHANICAL VENT TOLERATED WELL , NO SOB NOTED, NO S/S OF DISTRESS NOTED. PATIENT WITH LEFT HAND PERIPHERAL LINE #20. WITH GTUBE FEEDING NEPHRO @ 75 ML/HR, HOB KEPT ELEVATED, INPLACED, INTACT AND INFUSING WELL, NO RESIDUAL NOTED UPON ASPIRATION. ALL DUE MEDS GIVEN ORDERED. ALL SAFETY MEASURE IN PLACE. BED ON LOWEST POSITION, LOCKED BED ALARM ARMED. CALL LIGHT WITHIN REACH. WILL CONTINUE TO MONITOR
[2021-07-02 07:38] LABS: CALCIUM, SERUM 8.9 mg/dL (8.5-10.1); MAGNESIUM 3.4 mg/dL (1.8-2.4); PHOSPHORUS 3.4 mg/dL (2.5-4.9); POTASSIUM 3.9 mmol/L (3.5-5.1)
[2021-07-02 07:40] LABS: CREATININE 8.1 mg/dL (0.6-1.3)
--- NOTE | 2021-07-02 07:41 | NUR ---
CONVERTER SKIMMER OPENING NOTES PT IN BED IN SUPINE POS. PT IS OBTUNDED. PT RESPONDS TO NAME WITH EYE OPENING. NO C/O PAIN OR DISTRESS AT THIS TIME EVIDENT BY FACIAL EXPRESSION. DEBBIE #20G AND FEMORAL HD CATH NOTED. PT HAD DIALYSIS AT 06/30/20 NIGHT AND WAS ABLE TO REMOVE 1.5L OF FLUID. ALL SAFETY MEASURES RENDERED, BED LOCKED, IN LOWEST POS. SIDERAILS X2, WITH CALL LIGHT WITHIN REACH. WILL CONTINUE TO MONITOR.
[2021-07-02 08:00] VITALS: BP 96/62
[2021-07-02] MEDS: CHLORHEXIDINE GLUCONATE 15 ML UDC MM SCH ×2 (08:22→21:47)
[2021-07-02] MEDS: METOCLOPRAMIDE HCL 10 MG TABLET GT SCH ×2 (08:23→18:15)
[2021-07-02] MEDS: DOCUSATE SODIUM 100 MG CAPSULE PO SCH ×2 (08:23→21:47)
[2021-07-02] MEDS: MULTIVITAMINS,THERAGRAN 1 UDTAB TABLET GT SCH (08:23)
[2021-07-02] MEDS: VIT B CMPLX 3/FA/VIT C/BIOTIN 1 TAB TABLET GT SCH (08:24)
[2021-07-02] MEDS: PANTOPRAZOLE 40 MG/PACK PACK GT SCH (08:24)
[2021-07-02] MEDS: ZINC SULFATE 220 MG CAPSULE GT SCH (08:24)
[2021-07-02] MEDS: FERROUS SULFATE (325 MG) 325 MG/TAB TABLET GT SCH (08:24)
[2021-07-02] MEDS: ASCORBIC ACID 500 MG TABLET GT SCH (08:25)
[2021-07-02 12:00] VITALS: BP 108/66
[2021-07-02 16:00] VITALS: BP 106/72
--- NOTE | 2021-07-02 18:00 | NUR ---
RN NOTE PATIENT IS READING SCT IN 170S. DR KEBEDE NOTIFIED. EKG STAT ORDERED.
--- NOTE | 2021-07-02 18:41 | NUR ---
WOODS OVERSEER CLOSING NOTES NO SIGNIFICANT CHANGES THROUGH OUT THE SHIFT. PATIENT IS MECHANICAL VENT TOLERATED WELL , NO SOB NOTED, NO S/S OF DISTRESS NOTED. PATIENT WITH LEFT HAND PERIPHERAL LINE #20. WITH GTUBE FEEDING NEPHRO @ 75 ML/HR, HOB KEPT ELEVATED, INPLACED, INTACT AND INFUSING WELL, NO RESIDUAL NOTED UPON ASPIRATION. ALL DUE MEDS GIVEN ORDERED. ALL SAFETY MEASURE IN PLACE. BED ON LOWEST POSITION, LOCKED BED ALARM ARMED. CALL LIGHT WITHIN REACH. WILL ENDORSE TO POCKETS AND PIECES NECKTIE OPERATOR NURSE.
--- NOTE | 2021-07-02 19:10 | NUR ---
RN NOTES RECEIVED REPORT FROM MORNING RN PATIENT IN BED A/O X1 OBTUNDED. NO SIGNS OF DISTRESS. PATIENT ON TRACH CONNECTED TO MV WITH PRESCRIBED SETTINGS. WITH GT INTACT CONNECTED TO CONTINUOS FEEDING AT 75CC/HR TOLERATING WELL. WITH PERMACATH AT FEMORAL INTACT NO BLEEDING NOTED. VITAL SIGNS TAKEN AND RECORDED. PATIENT SUPPOSED TO BE D/C @8PM BUT PATIENT NOTED TO HAVE AN EPISODE OF TACHYCARDIA. D/C HELD BY THE DOCTOR ENDORSED BY MORNING RN. WILL GIVE BOLUS IV OF PNS 500 CC ORDERED. ALL SAFETY MEASURES IN PLACE AT ALL TIMES. HOB ELEVATED, CALL LIGHT WITHIN REACH. BED ON LOWEST POSITION AND LOCKED. PATIENT IS WITH SOFT R WRIST RESTRAINTS IN PLACE. WILL CONTINUE TO MONITOR.
[2021-07-02] MEDS ORDERED: IV NS 0.9% 500 ML IV ONE (19:30)
[2021-07-02] MEDS ORDERED: IV NS 0.9% 500 ML BAG IV ONE (19:30)
[2021-07-02 20:00] VITALS: BP 121/67
--- NOTE | 2021-07-02 20:00 | NUR ---
RN NOTES IV NS OF 500 CC BOLUS GIVEN ORDERED. HR 119. WILL CONTINUE TO MONITOR
[2021-07-03] MEDS: BLOOD SUGAR DIAGNOSTIC 1 EACH STRIP IN SCH ×2 (00:02→05:17)
--- NOTE | 2021-07-03 00:02 | NUR ---
RN NOTES BS 99MG/DL NO COVERAGE. WILL CONTINUE TO MONITOR.
[2021-07-03 00:48] VITALS: BP 99/65
[2021-07-03] MEDS: ALBUTEROL FS 2.5 MG/0.5 ML VIAL.NEB NEB SCH ×2 (01:28→08:03)
[2021-07-03] MEDS: IPRATROPIUM NEB FS 0.5 MG/2.5 ML AMPUL.NEB IH SCH ×2 (01:28→08:03)
[2021-07-03 04:00] VITALS: BP 100/64
[2021-07-03] MEDS: SEVELAMER CARBONATE 800 MG POWD.PACK GT SCH (04:45)
[2021-07-03] MEDS: PIPERACILLIN /TAZOBACTAM 2.25 G in IV D5W 50 ML IV SCH (04:45)
--- NOTE | 2021-07-03 05:19 | NUR ---
RN NOTES BS 128MG/DL NO COVERAGE.PATIENT NOTED WITH LOW GRADE FEVER 100.2 COOLING MEASURE DONE. TYLENOL 1000 MG VIA GT GIVEN WILL CONTINUE TO MONITOR
--- NOTE | 2021-07-03 06:46 | NUR ---
RN NOTES PATIENT ASLEEP ION BED NO SOB NOT IN DISTRESS. PATIENT ON TRACH CONNECTED TO MV WITH PRESCRIBE SETTINGS. GT FEEDING TOLERATED WELL. TEMP WENT DOWN TO 98.5. ALL DUE MEDS GIVEN ORDERED. ALL SAFETY MEASURES IN PLACE AT ALL TIMES. CALL LIGHT WITHIN REACH. HOB ELEVATED. ALL NEEDS ATTENDED. KEPT CLEAN AND DRY AT ALL TIMES. FREQUENT VISUAL MONITORING RENDERED. ENDORSED.
[2021-07-03] MEDS: CHLORHEXIDINE GLUCONATE 15 ML UDC MM SCH (09:53)
[2021-07-03] MEDS: VIT B CMPLX 3/FA/VIT C/BIOTIN 1 TAB TABLET GT SCH (09:53)
[2021-07-03] MEDS: ZINC SULFATE 220 MG CAPSULE GT SCH (09:54)
[2021-07-03] MEDS: ASCORBIC ACID 500 MG TABLET GT SCH (09:54)
[2021-07-03] MEDS: DOCUSATE SODIUM 100 MG CAPSULE PO SCH (09:54)
[2021-07-03] MEDS: FERROUS SULFATE (325 MG) 325 MG/TAB TABLET GT SCH (09:54)
[2021-07-03] MEDS: MULTIVITAMINS,THERAGRAN 1 UDTAB TABLET GT SCH (09:55)
[2021-07-03] MEDS: METOCLOPRAMIDE HCL 10 MG TABLET GT SCH (09:55)
[2021-07-03] MEDS: PANTOPRAZOLE 40 MG/PACK PACK GT SCH (10:03)
--- NOTE | 2021-07-03 12:59 | NUR ---
RN NOTE PT D/C TO SNF, SPOKE WITH LON OROPEZA FOR REPORT. PT V/S STABLE, NOT IN DISTRESS, TOLERATING VENT SETTINGS WELL. PICKED UP BY 2 AMBULANCE PERSONNEL AND 1 RT. D/C INSTRUCTIONS GIVEN AND ENDORSED.
== END 2021-07-03 11:52 | DRG 380 ==
LOC: ER 12:57 → TELE1 21:23
PROVIDERS: ADMIT Family Medicine; ATTEND Student in an Organized Health Care Education/Training Program
PROC: 5A1955Z Respiratory Ventilation, Greater than 96 Consecutive Hours (ICD-10-PCS; principal; 2021-06-28)
PROC: 5A1D70Z Performance of Urinary Filtration, Intermittent, Less than 6 Hours Per Day (ICD-10-PCS; 2021-06-30)
DX: L89.154 Pressure ulcer of sacral region, stage 4 (principal); G93.49 Other encephalopathy; K85.90 Acute pancreatitis without necrosis or infection, unspecified; J96.10 Chronic respiratory failure, unspecified whether with hypoxia or hypercapnia; E44.1 Mild protein-calorie malnutrition; I12.0 Hypertensive chronic kidney disease with stage 5 chronic kidney disease or end stage renal disease; E83.39 Other disorders of phosphorus metabolism; E83.41 Hypermagnesemia; D63.1 Anemia in chronic kidney disease; E87.79 Other fluid overload; L89.322 Pressure ulcer of left buttock, stage 2; N18.6 End stage renal disease; E11.22 Type 2 diabetes mellitus with diabetic chronic kidney disease; I69.354 Hemiplegia and hemiparesis following cerebral infarction affecting left non-dominant side; Z99.2 Dependence on renal dialysis; Z99.11 Dependence on respirator [ventilator] status; Z20.822 Contact with and (suspected) exposure to COVID-19; Z79.4 Long term (current) use of insulin; K21.9 Gastro-esophageal reflux disease without esophagitis; R74.8 Abnormal levels of other serum enzymes; R13.10 Dysphagia, unspecified; E88.09 Other disorders of plasma-protein metabolism, not elsewhere classified; E11.65 Type 2 diabetes mellitus with hyperglycemia; Z93.0 Tracheostomy status; Z93.1 Gastrostomy status; M24.571 Contracture, right ankle; M24.572 Contracture, left ankle; M24.542 Contracture, left hand; M24.541 Contracture, right hand; E83.9 Disorder of mineral metabolism, unspecified; L90.5 Scar conditions and fibrosis of skin; D72.829 Elevated white blood cell count, unspecified
CPT/HCPCS: 31720; 36415; 71045-TC; 76700-TC; 80048-TC; 80061-TC; 80076-TC; 80202-TC; 82962-TC; 83605-TC; 83690-TC; 83735-TC; 84100-TC; 85025-TC; 86706; 87040-TC; 87081-TC; 87340; 90935-TC; 94002-TC; 94003-TC; 94760-TC; 94762-TC; 94799-TC; 99082-TC; C9803; G0378; J0885; J1815; J2060; J2405; J2543; J3370; J7030; J7050; J7060; J7120; J8597; Q0177; U0003

== ENCOUNTER 2021-07-06 16:07 | Emergency (ER) | payer MEDICAID ==
[~2021-07-06] VITALS: Ht 182.9 cm; Wt 85.7 kg
[~2021-07-06 16:07] MED LIST changes: -CEFE1FRO IV; +CHLO473M5 MM; +FOLI0.8T2 GT; +HYDR-500 GT; +METO-295 GT; -VANC500F2 IV; +ZINC1CAP3 GT; +ZINC56.713 TP; +collagen TD
--- NOTE | 2021-07-06 16:10 | NUR ---
LATOYA PHAM FROM [facility] C/O BLEEDING ON THE TRACH SITE / "HE BIT HIS TONGUE AND BLEEDING ALOT." NONAMBULATORY, NONVERBAL. AWAKE. L SIDED PARALYSIS. TRACH. ON MONITOR. VS STABLE.
--- NOTE | 2021-07-06 16:32 | NUR ---
RT AT BEDSIDE
--- NOTE | 2021-07-06 17:10 | NUR ---
CALLED [facility] AND SET UP TRANSPORT WITH RT. ETA [phone]
--- NOTE | 2021-07-06 17:21 | NUR ---
PT LAYING IN BED, NO ACTIVE BLEEDING, VS STABLE
--- NOTE | 2021-07-06 19:28 | NUR ---
REPORT GIVEN TO LON STEVENS FOR DENNIS
--- NOTE | 2021-07-06 20:30 | NUR ---
REPORT GIVEN TO [facility] AT BED SIDE
--- NOTE | 2021-07-06 21:05 | NUR ---
pt picked up by emt.
[2021-07-06 21:06] VITALS: BP 124/68
== END 2021-07-06 21:09 ==
LOC: ER 16:26
DX: S01.512A Laceration without foreign body of oral cavity, initial encounter (principal); J95.01 Hemorrhage from tracheostomy stoma; I10 Essential (primary) hypertension; K21.9 Gastro-esophageal reflux disease without esophagitis; E11.9 Type 2 diabetes mellitus without complications; Z98.890 Other specified postprocedural states; Z86.73 Personal history of transient ischemic attack (TIA), and cerebral infarction without residual deficits; Z79.899 Other long term (current) drug therapy; X58.XXXA Exposure to other specified factors, initial encounter; Y93.89 Activity, other specified; Y92.89 Other specified places as the place of occurrence of the external cause; Y99.8 Other external cause status
CPT/HCPCS: 99283; A4623

== ENCOUNTER 2021-09-15 12:34 | Inpatient (IN) | payer MEDICAID ==
[~2021-09-15] VITALS: Ht 182.9 cm; Wt 64.9 kg
--- NOTE | 2021-09-15 12:35 | NUR ---
[facility] for hypotension at dialysis center 59/40 per ems report, no dialysis today. Patient came with trache attached to vent, with GTUBE on epigastric area, with right femoral HD access. Patient came with multiple skin issues on right lower arm and hand, bilateral lower leg and scratch pond on his chest. Patient is alert x1. Vitals checked. Placed comfortably in bed. Attached to awake overnight monitor with pulse oximeter. RT attached patient to hospital vent.
--- NOTE | 2021-09-15 12:40 | NUR ---
IV LINE IS ESTABLISHED, BLOOD SPECIMEN COLLECTED AND SENT TO THE LAB.
[2021-09-15] MEDS ORDERED: ACET-73 GT (13:30)
[2021-09-15] MEDS ORDERED: CEFEPIME 1 GM in IV D5W 50 ML IV ONE (13:30)
[2021-09-15] MEDS ORDERED: LORA-259 GT (13:30)
[2021-09-15] MEDS ORDERED: IV NS 0.9% 1,000 ML BAG IV ONE (13:30)
[2021-09-15] MEDS ORDERED: VANCOMYCIN 1 GM in IV D5W 250 ML IV ONE (13:30)
--- NOTE | 2021-09-15 13:30 | NUR ---
COVID ANTIGEN SWAB DONE AND SENT TO THE LAB
[2021-09-15 13:32] LABS: CALCIUM, SERUM 9.1 mg/dL (8.5-10.1); CARBON DIOXIDE 24 mmol/L (21-32); CHLORIDE 104 mmol/L (98-107); CREATININE 5.1 mg/dL (0.6-1.3); GLUCOSE 99 mg/dL (74-106); POTASSIUM 4.1 mmol/L (3.5-5.1); SODIUM SERUM 138 mmol/L (136-145); UREA NITROGEN, BLOOD 68 mg/dL (7-18)
[2021-09-15 13:38] LABS: ALANINE AMINOTRANSFERASE 28 U/L (12-78); ALBUMIN 2.1 g/dL (3.4-5.0); ALKALINE PHOSPHATASE 188 U/L (46-116); ASPARTATE AMINOTRANSFERASE 31 U/L (15-37); BILIRUBIN,DIRECT 0.2 mg/dL (0.0-0.2); BILIRUBIN,TOTAL 0.4 mg/dL (0.2-1.0); TOTAL PROTEIN, SERUM 6.7 g/dL (6.4-8.2)
--- NOTE | 2021-09-15 13:40 | NUR ---
NS 1L BOLUS STARTED. MAXIPIME ANTBX STARTED.
[2021-09-15 13:44] LABS: BASOPHILS % (AUTO) 0.2 % (0.0-2.0); HEMATOCRIT 32 % (39-51); HEMOGLOBIN 9.8 g/dL (13.5-17.5); LYMPHOCYTES # (AUTO) 0.9 K/uL (0.8-4.8); LYMPHOCYTES % (AUTO) 7.6 % (20.0-44.0); MEAN CORPUSCULAR HGB CONC 31 g/dl (31.0-36.0); MEAN CORPUSCULAR VOLUME 105 fL (80-96); MONOCYTES # (AUTO) 1.2 K/uL (0.1-1.30); MONOCYTES % (AUTO) 10.4 % (2.0-12.0); NEUTROPHILS % (AUTO) 69.8 % (43.0-81.0); PLATELET COUNT (AUTO) 184 K/uL (150-450); RED BLOOD CELL COUNT(AUTO) 3.01 MIL/uL (4.5-6.0); WHITE BLOOD COUNT (AUTO) 11.4 K/uL (4.3-11.0)
[2021-09-15] MEDS ORDERED: SIMETHICONE 80 MG TAB.CHEW GT PRN (15:00)
[2021-09-15] MEDS ORDERED: Z GUARD REMEDY 4 OZ OINT TP PRN (15:00)
[2021-09-15] MEDS ORDERED: BISACODYL SUPP (10 MG) 10 MG/SUPP.RECT SUPP.RECT RC PRN (15:00)
[2021-09-15] MEDS ORDERED: ACETAMINOPHEN ES 500 MG TABLET GT PRN (15:00)
[2021-09-15] MEDS ORDERED: NEPRO VAN 237 ML CAN GT SCH (15:00)
[2021-09-15] MEDS ORDERED: MIDODRINE HCL (5MG) 5 MG TABLET PO PRN (15:00)
[2021-09-15] MEDS ORDERED: IPRATROPIUM NEB FS 0.5 MG/2.5 ML AMPUL.NEB NEB PRN (15:00)
[2021-09-15] MEDS ORDERED: ALBUTEROL FS 2.5 MG/3 ML VIAL.NEB NEB PRN (15:00)
--- NOTE | 2021-09-15 15:18 | NUR ---
ROOM 111-2
--- NOTE | 2021-09-15 15:23 | NUR ---
RT RECD PT IN ER FOR LOW BP, TRACHED CUFFED PORTEX 8 SECURED PATENT ON MECH VENT AC 15 500 40% +5 SPARE TRACHED AND BAG AT HOB SX THICK WHITE SECRETIONS VENT PLUGGED OIN RED OUTLET WILL CONT TO MONITOR Addendum: 09/15/21 at 1525 by SIENA GARRETT RT Amended: Links added.
--- NOTE | 2021-09-15 15:24 | NUR ---
REPORT GIVEN TO NURSE LITA FOR DENNIS
[2021-09-15] MEDS ORDERED: DEXTROSE 50%-WATER 50 ML DISP.SYRIN IV PRN (15:30)
[2021-09-15 16:00] VITALS: BP 96/60
[2021-09-15] MEDS ORDERED: ZINC OXIDE 30 GM TUBE TP PRN (16:00)
--- NOTE | 2021-09-15 16:00 | NUR ---
Transferred patient to [address] via stretcher with EMT. Patient is vitally stable. Attached to ekg monitor tech and ambubag.
[2021-09-15] MEDS: METOCLOPRAMIDE HCL 10 MG TABLET GT SCH (17:37)
[2021-09-15] MEDS: BLOOD SUGAR DIAGNOSTIC 1 EACH STRIP IN SCH ×2 (17:37→23:16)
[2021-09-15] MEDS: PROSOURCE / PROSTAT (PYXIS) 30 ML UDC GT SCH (17:37)
[2021-09-15] MEDS: MIDODRINE HCL (5MG) 5 MG TABLET GT SCH (19:06)
--- NOTE | 2021-09-15 19:51 | NUR ---
RN CLOSING NOTE PT OBTUNDED ON R WRIST RESTRAINT DUE TO EXCESSIVE GRABBING ON TRACH. PT ON VENT WITH PEEP 5, RATE 15, TV 500, AND FIO2 40%. PT BP 96/60. PER DR. NINA Cortez VERBAL ORDER START ON MIDRRONE 10MG TID. PT GTUBE FLUSHING AND INTACT
[2021-09-15 20:00] VITALS: BP 107/60
[2021-09-15] MEDS: CHLORHEXIDINE GLUCONATE 15 ML UDC MM SCH (20:49)
[2021-09-15] MEDS: SEVELAMER CARBONATE 800 MG POWD.PACK GT SCH (20:49)
[2021-09-15] MEDS: DOCUSATE SODIUM 100 MG CAPSULE PO SCH (20:49)
--- NOTE | 2021-09-15 21:20 | NUR ---
RN NOTES, PATIENT IN BED OBTUNDED, OPEN EYES SPONTANEOUSLY AT TIMES, UNABLE TO FOLLOW COMMANDS, ON MECHANICAL VENTILATOR, TOLERATED WELL, SINUS TACHY IN TELE MONITOR WITH DX HYPOTENSION, BLOOD PRESSURE AT THIS TIME 107/62, AFEBRILE WITH ORDER FOR NEPRO VANILLA 240ML CAN, PER BOO TO SWITCH TO THE NEPRO 1000ML AT 75ML/[id number], ORDER NOTED AND CARRIED OUT, WILL CONTINUE TO MONITOR CLOSELY, ALL NEEDS PROVIDED, S/R OF BED X2 UP, BED LOCKED AND IN LOWEST POSITION.
[2021-09-15] MEDS ORDERED: NEPRO 1,000 ML BOTTLE GT PRN (21:30)
[2021-09-15] MEDS: NEPRO 1,000 ML BOTTLE GT SCH (21:50)
[2021-09-15] MEDS: INSULIN REGULAR, HUMAN 100 UNIT/ML 3 ML VIAL SQ PRN (23:16)
--- NOTE | 2021-09-15 23:17 | NUR ---
blood sugar at this time 81mg/dL no insulin administered per sliding scale.
[2021-09-16] VITALS: BP 112/69
[2021-09-16] MEDS: LORAZEPAM 1 MG TABLET GT PRN (02:13)
--- NOTE | 2021-09-16 02:18 | NUR ---
ATIVAN 1MG VIA GT ADMINISTERED, PATIENT VERY RESTLESSNESS, AND FIGHTING SOFT RESTRAIN IN RIGHT WRIST, HAND WRAPPED WITH DRESSING UNABLE TO ASSESS, IT MAY HAVE SKIN ISSUES IN THE HAND, DRESSING A LITTLE BIT SOILED WITH BLOODY FLUIDS, WILL ENDORSE TO ONCOMING NURSE TO ASSESS HAND, PATIENT UNCOOPERATIVE VERY AGITATED, 3 NURSES TO CLEAN THE PATIENT AT THIS TIME.
[2021-09-16 04:00] VITALS: BP 108/64
[2021-09-16] MEDS: SEVELAMER CARBONATE 800 MG POWD.PACK GT SCH ×3 (05:54→21:52)
[2021-09-16] MEDS: BLOOD SUGAR DIAGNOSTIC 1 EACH STRIP IN SCH ×3 (06:57→17:54)
[2021-09-16] MEDS: INSULIN REGULAR, HUMAN 100 UNIT/ML 3 ML VIAL SQ PRN ×2 (06:58→11:51)
--- NOTE | 2021-09-16 07:10 | NUR ---
RN CLOSING NOTES, PATIENT CONT ON MECHANICAL VENTILATOR, NO SIGNIFICANT CHANGE IN CONDITION, ATIVAN GIVEN FOR AGITATION LAST NIGHT, RIGHT SOFT WRIST RESTRAIN IN PLACE, FREQUENT CHECKS DONE, BED LOCKED AND LOWEST POSITION, CALL LIGHT W/I REACH, S/R OF BED X2 UP, WILL ENDORSE CONTINUITY OF CARE TO ONCOMING NURSE
--- NOTE | 2021-09-16 07:48 | NUR ---
WOUND CARE CONSULT: DIFFICULT ASSESSMENT DUE TO PT AGITATED AT TIMES AND COMBATIVE WITH RT ARM, OTHERWISE RIGID AND RESISTANT TO TURNING/REPOSITIONING IN BED. RECOMMENDATIONS MADE FOR SKIN PROTECTION. DISCUSSED WITH NURSING STAFF. PT NOTED TO HAVE MULTIPLE WOUNDS INCLUDING STAGE 2 ULCER TO RT ELBOW, GENERALIZED EDEMA, STAGE 4 ULCERS TO SACRUM AND LEFT BUTTOCK, SCARRING TO RT HIP AND RT BUTTOCK WELL LOWER EXTREMITY WOUNDS, ALL PRESENT ON ADMISSION. DRESSINGS TO LOWER EXTREMITIES REMAIN DRY AND INTACT. DR MARIEE AND DR LAM TO BE CALLED FOR SURGICAL/DPM CONSULTS. FIRST STEP LOW AIRLOSS MATTTRESS IS ON ORDER. IN AGREEMENT WITH PLAN OF CARE.
[2021-09-16 07:50] LABS: BASOPHILS # (AUTO) 0.1 K/uL (0.0-0.2); BASOPHILS % (AUTO) 0.5 % (0.0-2.0); EOSINOPHILS % (AUTO) 9.6 % (0.0-6.0); HEMATOCRIT 31 % (39-51); HEMOGLOBIN 9.8 g/dL (13.5-17.5); LYMPHOCYTES % (AUTO) 7.3 % (20.0-44.0); MEAN CORPUSCULAR HGB CONC 32 g/dl (31.0-36.0); MEAN CORPUSCULAR VOLUME 103 fL (80-96); MONOCYTES % (AUTO) 7.9 % (2.0-12.0); NEUTROPHILS # (AUTO) 9.8 K/uL (1.8-8.9); NEUTROPHILS % (AUTO) 74.7 % (43.0-81.0); PLATELET COUNT (AUTO) 211 K/uL (150-450); RED BLOOD CELL COUNT(AUTO) 2.97 MIL/uL (4.5-6.0); WHITE BLOOD COUNT (AUTO) 13.1 K/uL (4.3-11.0)
--- NOTE | 2021-09-16 07:57 | NUR ---
RN OPENING NOTES, PATIENT IN BED OBTUNDED, OPEN EYES SPONTANEOUSLY AT TIMES, UNABLE TO FOLLOW COMMANDS, ON MECHANICAL VENTILATOR, TOLERATED WELL, IV ACCESS NOTED ON RIGHT UPPER ARM, LEFT CHEST WALL HD CATH PORT. PATIENT ON RESTRAINTS ONLY RIGHT WRIST. NO CURRENT SIGNS OF DISTRESS OR PAIN. SAFETY MEASURE IN PLACE PATENTS BED IN THE LOWEST POSITION, BED ALARM ACTIVATED, CALL LIGHT WITHIN REACH.
[2021-09-16 08:00] VITALS: BP 106/69
[2021-09-16 08:25] LABS: CALCIUM, SERUM 9.7 mg/dL (8.5-10.1); CREATININE 5.3 mg/dL (0.6-1.3); MAGNESIUM 3.4 mg/dL (1.8-2.4); PHOSPHORUS 3.7 mg/dL (2.5-4.9); POTASSIUM 4.4 mmol/L (3.5-5.1)
[2021-09-16] MEDS: FERROUS SULFATE (325 MG) 325 MG/TAB TABLET GT SCH (08:39)
[2021-09-16] MEDS: CHLORHEXIDINE GLUCONATE 15 ML UDC MM SCH ×2 (08:39→21:51)
[2021-09-16] MEDS: DOCUSATE SODIUM 100 MG CAPSULE PO SCH ×2 (08:39→21:52)
[2021-09-16] MEDS: VIT B CMPLX 3/FA/VIT C/BIOTIN 1 TAB TABLET PO SCH (08:39)
[2021-09-16] MEDS: MIDODRINE HCL (5MG) 5 MG TABLET GT SCH ×3 (08:40→17:52)
[2021-09-16] MEDS: PANTOPRAZOLE 40 MG/PACK PACK GT SCH (08:40)
[2021-09-16] MEDS: METOCLOPRAMIDE HCL 10 MG TABLET GT SCH ×2 (08:40→17:52)
[2021-09-16] MEDS: MULTIVITAMINS,THERAGRAN 1 UDTAB TABLET GT SCH (08:40)
[2021-09-16] MEDS: ASCORBIC ACID 500 MG TABLET GT SCH (08:40)
[2021-09-16] MEDS ORDERED: ACETAMINOPHEN 325 MG TABLET MC SCH (09:00)
[2021-09-16] MEDS: PROSOURCE / PROSTAT (PYXIS) 30 ML UDC GT SCH ×3 (09:59→17:52)
[2021-09-16 12:00] VITALS: BP 112/64
[2021-09-16] MEDS: CEFEPIME 1 GM in IV D5W 50 ML IV SCH (14:36)
[2021-09-16] MEDS: EPOETIN ALFA-EPBX 4,000 UNIT/ML VIAL SQ SCH (14:37)
[2021-09-16] MEDS ORDERED: VANCOMYCIN 500 MG in IV D5W 100 ML IV PRN (15:00)
--- NOTE | 2021-09-16 15:35 | NUR ---
RN NOTE ATTEMPTED TO CONTACT PATIENTS NEXT OF KIN NICOLLE MCNEIL REGARDING CONSENT FOR DEBRIDEMENT. NO ANSWER WILL ATTEMPT TO CONTACT AGAIN.
[2021-09-16 16:00] VITALS: BP 114/73
[2021-09-16] MEDS: HEPARIN SODIUM, PORCINE 5000 UNITS/1 ML VIAL SQ SCH (17:53)
--- NOTE | 2021-09-16 18:59 | NUR ---
RN CLOSING NOTES, PATIENT IN BED OBTUNDED, OPEN EYES SPONTANEOUSLY AT TIMES, UNABLE TO FOLLOW COMMANDS, ON MECHANICAL VENTILATOR, TOLERATED WELL,PENDING MIDLINE INSERTION, LEFT CHEST WALL HD CATH PORT. PATIENT ON RESTRAINTS ONLY RIGHT WRIST. NO CURRENT SIGNS OF DISTRESS OR PAIN. SAFETY MEASURE IN PLACE PATENTS BED IN THE LOWEST POSITION, BED ALARM ACTIVATED, CALL LIGHT WITHIN REACH. WILL ENDORSE TO NIGHT NURSE FOR DENNIS.
--- NOTE | 2021-09-16 19:35 | NUR ---
RN OPENING NOTES, RECEIVED PATIENT IN BED OBTUNDED, OPEN BOTH EYES SPONTANEOUSLY, UNABLE TO FOLLOW COMMANDS, ON TRACH TO MECHANICAL VENTILATOR AND TOLERATED WELL. NO IV ACCESS, STILL WAITING FOR PENDING MIDLINE INSERTION, LEFT CHEST WALL HD CATH PORT INTACT AND PATIENT. ON RESTRAINTS ONLY RIGHT WRIST. NO FACIAL GRIMACING NOTED. NO ACUTE DISTRESS. ALL SAFETY MEASURES IN PLACE. BED IN LOWEST POSITION AND LOCKED, BED ALARM ON, PLACE CALL LIGHT WITHIN REACH. WILL CONTINUE TO MONITOR
--- NOTE | 2021-09-16 19:44 | NUR ---
PT RCVD TRACHED WITH PORTEX 8 ON [facility] VENT WITH THE SETTINGS OF AC 15, VT 500, FIO2 40% PEEP 5. TRACH IS PATENT AND SECURED. PT IS OBTUNDED. SUCTIONED SMALL AMOUNT OF YELLOW THICK SECRETIONS. VENT IS PLUGGED INTO RED WALL OUTLET AND VENT ALARMS ARE ON AND AUDIBLE. NO RESPIRATORY DISTRESS NOTED AT THIS TIME. WILL CONTINUE TO MONITOR T/O SHIFT.
[2021-09-16 20:00] VITALS: BP 117/66
[2021-09-16] MEDS: THERAHONEY GEL 1.5 OZ TUBE TP SCH (21:53)
[2021-09-16] MEDS: HYDROCODONE/APAP 5/325MG TABLET GT PRN (22:56)
[2021-09-16] MEDS: NEPRO 1,000 ML BOTTLE GT SCH (22:58)
--- NOTE | 2021-09-16 23:00 | NUR ---
RN NOTES: PT NOTED WITH FACIAL GRIMACING, MOANING, RESTLESSNESS. NORCO GIVEN VIA GTUBE. PT TOLERATED WELL. WILL CONTINUE TO MONITOR
[2021-09-17] VITALS: BP 133/67
[2021-09-17] MEDS: BLOOD SUGAR DIAGNOSTIC 1 EACH STRIP IN SCH ×4 (00:15→17:57)
[2021-09-17] MEDS: hydrOXYzine PAMOATE 25 MG CAPSULE GT PRN (00:19)
--- NOTE | 2021-09-17 00:25 | NUR ---
RN NOTES: PT'S BLOOD SUGAR 85, NO COVERAGE NEEDED. NO S/S OF HYPER/HYPOGLYCEMIA. WILL CONTINUE TO MONITOR. STILL SHOWING ITCHINESS. VISTARIL 25 MG CAP GIVEN AND PT TOLERATED WELL. WILL CONTINUE TO MONITOR
[2021-09-17 04:00] VITALS: BP 120/62
[2021-09-17] MEDS: SEVELAMER CARBONATE 800 MG POWD.PACK GT SCH ×3 (05:30→21:41)
[2021-09-17 06:50] LABS: BASOPHILS % (AUTO) 0.3 % (0.0-2.0); EOSINOPHILS % (AUTO) 9.8 % (0.0-6.0); HEMATOCRIT 32 % (39-51); HEMOGLOBIN 10.2 g/dL (13.5-17.5); LYMPHOCYTES # (AUTO) 1.4 K/uL (0.8-4.8); LYMPHOCYTES % (AUTO) 11.9 % (20.0-44.0); MEAN CORPUSCULAR HGB CONC 32 g/dl (31.0-36.0); MEAN CORPUSCULAR VOLUME 102 fL (80-96); MONOCYTES # (AUTO) 1.1 K/uL (0.1-1.30); MONOCYTES % (AUTO) 9.6 % (2.0-12.0); NEUTROPHILS # (AUTO) 8.2 K/uL (1.8-8.9); NEUTROPHILS % (AUTO) 68.4 % (43.0-81.0); PLATELET COUNT (AUTO) 257 K/uL (150-450); RED BLOOD CELL COUNT(AUTO) 3.12 MIL/uL (4.5-6.0); WHITE BLOOD COUNT (AUTO) 11.9 K/uL (4.3-11.0)
--- NOTE | 2021-09-17 06:58 | NUR ---
RN CLOSING NOTES, PATIENT IN BED OBTUNDED, OPEN BOTH EYES SPONTANEOUSLY, UNABLE TO FOLLOW COMMANDS, ON TRACH TO MECHANICAL VENTILATOR AND TOLERATED WELL. NEW IV ACCESS INSERTED BY MIDLINE NURSE ON ALEX#18G. NO BLEEDING NOTED. RT FEMORAL HD CATH INTACT AND PATIENT. ON RESTRAINTS ONLY RIGHT WRIST. RELEASED FOR CHECKING CIRCULATION. NO FACIAL GRIMACING NOTED. NO ACUTE DISTRESS. ALL SAFETY MEASURES IN PLACE. BED IN LOWEST POSITION AND LOCKED, BED ALARM ON, PLACE CALL LIGHT WITHIN REACH. WILL ENDORSE TO MORNING SHIFT NURSE.
[2021-09-17 07:08] LABS: CALCIUM, SERUM 9.6 mg/dL (8.5-10.1); CREATININE 6.5 mg/dL (0.6-1.3); POTASSIUM 4.4 mmol/L (3.5-5.1)
--- NOTE | 2021-09-17 07:46 | NUR ---
RN OPENING NOTE- PATIENT IN BED - OBTUNDED, UNABLE TO FOLLOW COMMANDS, ON TRACH TO MECHANICAL VENTILATOR AND TOLERATING WELL. MIDLINE ON ALEX#18G. NO BLEEDING NOTED. RT FEMORAL HD CATH INTACT ON RESTRAINTS ONLY RIGHT WRIST. RELEASED - CHECKING CIRCULATION. NO ACUTE DISTRESS. ALL SAFETY MEASURES IN PLACE. BED IN LOWEST POSITION AND LOCKED, BED ALARM ON. MONITOR / ASSIST
[2021-09-17 08:00] VITALS: BP 97/57
[2021-09-17] MEDS: PANTOPRAZOLE 40 MG/PACK PACK GT SCH (08:06)
[2021-09-17] MEDS: DOCUSATE SODIUM 100 MG CAPSULE PO SCH ×2 (09:01→21:41)
[2021-09-17] MEDS: VIT B CMPLX 3/FA/VIT C/BIOTIN 1 TAB TABLET PO SCH (09:01)
[2021-09-17] MEDS: MIDODRINE HCL (5MG) 5 MG TABLET GT SCH ×3 (09:01→17:00)
[2021-09-17] MEDS: METOCLOPRAMIDE HCL 10 MG TABLET GT SCH ×2 (09:01→17:00)
[2021-09-17] MEDS: CHLORHEXIDINE GLUCONATE 15 ML UDC MM SCH ×2 (09:01→21:41)
[2021-09-17] MEDS: PROSOURCE / PROSTAT (PYXIS) 30 ML UDC GT SCH ×3 (09:02→17:00)
[2021-09-17] MEDS: ASCORBIC ACID 500 MG TABLET GT SCH (09:02)
[2021-09-17] MEDS: FERROUS SULFATE (325 MG) 325 MG/TAB TABLET GT SCH (09:02)
[2021-09-17] MEDS: THERAHONEY GEL 1.5 OZ TUBE TP SCH ×2 (09:02→09:03)
[2021-09-17] MEDS: MULTIVITAMINS,THERAGRAN 1 UDTAB TABLET GT SCH (09:02)
[2021-09-17] MEDS: HEPARIN SODIUM, PORCINE 5000 UNITS/1 ML VIAL SQ SCH (09:03)
--- NOTE | 2021-09-17 11:00 | NUR ---
RN NOTE- WOUND CARE TO LEG COMPLETED. PT A BIT COMBATIVE TO FURTHER CARE. SACRUM WOUND CARE WILL ATTEMPT LATER
[2021-09-17 12:00] VITALS: BP 102/66
[2021-09-17] MEDS: INSULIN REGULAR, HUMAN 100 UNIT/ML 3 ML VIAL SQ PRN ×2 (12:19→17:57)
[2021-09-17] MEDS: CEFEPIME 1 GM in IV D5W 50 ML IV SCH (14:22)
[2021-09-17 16:00] VITALS: BP 133/76
--- NOTE | 2021-09-17 17:30 | NUR ---
RN NOTE- HD INITIATED
--- NOTE | 2021-09-17 18:49 | NUR ---
RN CLOSING NOTE- PATIENT IN BED - OBTUNDED, UNABLE TO FOLLOW COMMANDS, ON TRACH TO MECHANICAL VENTILATOR AND TOLERATING WELL. MIDLINE ON ALEX#18G. NO BLEEDING NOTED. RT FEMORAL HD CATH STERILE DRESSING CHANGE COMPLETED. HEMODIALYSIS STARTED INTACT ON RESTRAINTS ONLY RIGHT WRIST. RELEASED - CHECKING CIRCULATION. NO ACUTE DISTRESS. ALL SAFETY MEASURES IN PLACE. BED IN LOWEST POSITION AND LOCKED, BED ALARM ON. MONITOR / ASSIST
--- NOTE | 2021-09-17 19:45 | NUR ---
RN NOTE RECEIVED PT IN BED, AWAKE. JUST FINISHED WITH DIALYSIS. NO S/SX OF DISTRESS WERE NOTED. REMOVED 2L PER HD NURSE. HD CATH INTACT. NO BLEEDING NOTED. PT ON TELE MONITOR. SINUS TACH PTS BASELINE. PT WITH TRACH ON VENT. SATING 100%. GT PATENT AND INTACT, ON FEEDING, NO RESIDUALS NOTED. PT WITH SOFT RIGHT WRIST RESTRAINT. NOTED WITH SKIN BREAKDOWN, COVERED WITH MEPILEX. ALL SAFETY MEASURES IMPLEMENTED. WILL CONTINUE TO MONITOR.
[2021-09-17 20:00] VITALS: BP 132/78
[2021-09-18] VITALS (7 sets, daily range): BP systolic 112–134; BP diastolic 73–85
[2021-09-18] MEDS: BLOOD SUGAR DIAGNOSTIC 1 EACH STRIP IN SCH ×5 (00:10→23:53)
[2021-09-18] MEDS: INSULIN REGULAR, HUMAN 100 UNIT/ML 3 ML VIAL SQ PRN (00:11)
[2021-09-18] MEDS: SEVELAMER CARBONATE 800 MG POWD.PACK GT SCH ×3 (04:40→20:42)
[2021-09-18] MEDS: LORAZEPAM 1 MG TABLET GT PRN (04:40)
[2021-09-18] MEDS: ONDANSETRON HCL/PF 4 MG/2 ML VIAL IVP PRN (04:41)
--- NOTE | 2021-09-18 05:30 | NUR ---
RN NOTE PT VERY AGITATED, FIGHTING OFF RESTRAINTS, RUBBING OFF UPPER BODY. NOTED VOMITED X1. ATIVAN AND ZOFRAN GIVEN ORDERED. NO SIGNS OF ASPIRATION NOTED. WILL CONTINUE TO MONITOR.
--- NOTE | 2021-09-18 07:00 | NUR ---
RN NOTE PT SLEEPING AND CALM AT THIS TIME. TOLERATING VENT SETTINGS, NOT IN ANY DISTRESS. CONTINUE ON GT FEEDING. TOLERATING WELL. FSBS 109./ NO INSULIN GIVEN. PT HAD DIALYSIS LAST NIGHT, IV ATB VANCOMYCIN GIVEN. REMAIN AFEBRILE. WOUND TX DONE ORDERED. TURNED AND REPOSITIONED. CONTINUE WITH R WRIST RESTRAINTS. WILL ENDORSE TO NEXT SHIFT NURSE FOR DENNIS,.
--- NOTE | 2021-09-18 07:07 | NUR ---
WOUND CARE CONSULT: PT SEEN FOR RT ANTERIOR WRIST/ARM WOUND AND SKIN TEAR TO RT HAND WHICH WERE PRESENT ON ADMISSION BUT PT HAS BEEN VERY AGITATED AND COMBATIVE, MAKING SKIN ASSESSMENTS DIFFICULT AND SOMETIMES IMPOSSIBLE. RECOMMENDATIONS MADE FOR SKIN PROTECTION AND WOUND CARE. DISCUSSED WITH NURSING STAFF AND WITH SURGICAL TEAM CURRENTLY ON CASE. MD IN AGREEMENT WITH PLAN OF CARE.
[2021-09-18 07:29] LABS: BASOPHILS % (AUTO) 0.3 % (0.0-2.0); HEMATOCRIT 30 % (39-51); HEMOGLOBIN 9.6 g/dL (13.5-17.5); LYMPHOCYTES # (AUTO) 0.8 K/uL (0.8-4.8); LYMPHOCYTES % (AUTO) 5.9 % (20.0-44.0); MEAN CORPUSCULAR HGB CONC 32 g/dl (31.0-36.0); MEAN CORPUSCULAR VOLUME 102 fL (80-96); MONOCYTES # (AUTO) 1.2 K/uL (0.1-1.30); MONOCYTES % (AUTO) 9.6 % (2.0-12.0); NEUTROPHILS # (AUTO) 9.9 K/uL (1.8-8.9); NEUTROPHILS % (AUTO) 76.2 % (43.0-81.0); PLATELET COUNT (AUTO) 266 K/uL (150-450); RED BLOOD CELL COUNT(AUTO) 2.96 MIL/uL (4.5-6.0)
--- NOTE | 2021-09-18 07:39 | NUR ---
RN OPENING NOTE PATIENT RECEIVED IN BED, WITH SOME AGITATION, ATTEMPTING TO GRAB TRACH. PATIENT ON MECHANICAL VENTILATION SATING 95%. RIGHT UA MIDLINE IN PLACE AND RIGHT FEMORAL HD CATH. NO SIGNS OF ACUTE DISTRESS NOTED AT THIS TIME, BED LOCKED AND IN LOWEST POSITION, CALL LIGHT WITHIN REACH, 2 SIDE RAILS UP. WILL CONTINUE TO MONITOR.
[2021-09-18] MEDS: CHLORHEXIDINE GLUCONATE 15 ML UDC MM SCH ×2 (08:46→20:42)
[2021-09-18] MEDS: PANTOPRAZOLE 40 MG/PACK PACK GT SCH (08:46)
[2021-09-18] MEDS: MULTIVITAMINS,THERAGRAN 1 UDTAB TABLET GT SCH (08:46)
[2021-09-18] MEDS: METOCLOPRAMIDE HCL 10 MG TABLET GT SCH ×2 (08:46→16:24)
[2021-09-18] MEDS: VIT B CMPLX 3/FA/VIT C/BIOTIN 1 TAB TABLET PO SCH (08:46)
[2021-09-18] MEDS: FERROUS SULFATE (325 MG) 325 MG/TAB TABLET GT SCH (08:46)
[2021-09-18] MEDS: DOCUSATE SODIUM 100 MG CAPSULE PO SCH ×2 (08:46→20:42)
[2021-09-18] MEDS: PROSOURCE / PROSTAT (PYXIS) 30 ML UDC GT SCH ×3 (08:47→16:23)
[2021-09-18] MEDS: ASCORBIC ACID 500 MG TABLET GT SCH (08:47)
[2021-09-18] MEDS: MIDODRINE HCL (5MG) 5 MG TABLET GT SCH ×3 (08:47→16:24)
[2021-09-18] MEDS: THERAHONEY GEL 1.5 OZ TUBE TP SCH ×2 (08:48)
[2021-09-18 08:52] LABS: CALCIUM, SERUM 9.8 mg/dL (8.5-10.1); CREATININE 5.4 mg/dL (0.6-1.3); POTASSIUM 3.6 mmol/L (3.5-5.1)
[2021-09-18] MEDS: MUPIROCIN OINT 2% 22 GM TUBE NS SCH ×2 (09:55→20:42)
[2021-09-18] MEDS: CEFEPIME 1 GM in IV D5W 50 ML IV SCH (14:22)
[2021-09-18] MEDS: EPOETIN ALFA-EPBX 4,000 UNIT/ML VIAL SQ SCH (14:52)
[2021-09-18] MEDS: NEPRO 1,000 ML BOTTLE GT SCH (16:42)
--- NOTE | 2021-09-18 18:37 | NUR ---
RN CLOSING NOTE PATIENT REMAINS IN BED, RESTING AT THIS TIME. PATIENT ON MECHANICAL VENTILATION SATING 96%. RIGHT UA MIDLINE IN PLACE AND RIGHT FEMORAL HD CATH. SOFT RIGHT WRIST RESTRAIN ON, SKIN WARM AND INTACT. NO SIGNS OF ACUTE DISTRESS NOTED AT THIS TIME, BED LOCKED AND IN LOWEST POSITION, CALL LIGHT WITHIN REACH, 2 SIDE RAILS UP. WILL ENDORSE TO CRIME LAB TECHNICIAN NURSE.
--- NOTE | 2021-09-18 19:30 | NUR ---
RN OPENING NOTE RECEIVED PATIENT AWAKE IN BED, RESTING AT THIS TIME. PATIENT ON MECHANICAL VENTILATION SATING 96%. NO SOB OR S/S OF RESPIRATORY DISTRESS. ON EXTERNAL MILL TENDER READING ST 113 BPM. IV ACCESS ALEX MIDLINE INTACT AND PATENT AND RIGHT FEMORAL HD CATH. SOFT RIGHT WRIST RESTRAINT ON, SKIN WARM AND INTACT. SAFETY PRECAUTIONS IN PLACE. BED IN LOWEST LOCKED POSITION, HOB ELEVATED, SIDE RAILS UP X2, AND CALL LIGHT AND TABLE WITHIN REACH. WILL CONTINUE WITH PLAN OF CARE.
[2021-09-18] MEDS: ACETAMINOPHEN 650 MG/20.3 ML UDC GT PRN (22:07)
--- NOTE | 2021-09-18 22:07 | NUR ---
RN NOTE PT NOTED WITH FEVER OF 101.4. STARTED COOLING MEASURES AND ADMINISTERED ACETAMINOPHEN FOR FEVER ORDERED. WILL CONTINUE TO MONITOR.
--- NOTE | 2021-09-18 23:07 | NUR ---
RN NOTE PT HAS TEMPERATURE OF 97.9. COOLING MEASURES AND MEDICATION EFFECTIVE. WILL CONTINUE WITH PLAN OF CARE.
[2021-09-19] VITALS: BP 112/71
[2021-09-19] MEDS: LORAZEPAM 1 MG TABLET GT PRN (02:33)
--- NOTE | 2021-09-19 02:34 | NUR ---
RN NOTE PT RESTLESS AND ANXIOUS. ADMINISTERED ATIVAN 1 MG VIA GT ORDERED. WILL CONTINUE WITH PLAN OF CARE.
[2021-09-19 04:00] VITALS: BP 123/71
[2021-09-19] MEDS: SEVELAMER CARBONATE 800 MG POWD.PACK GT SCH ×3 (04:02→20:44)
[2021-09-19] MEDS: hydrOXYzine PAMOATE 25 MG CAPSULE GT PRN (04:34)
--- NOTE | 2021-09-19 04:34 | NUR ---
RN NOTE PT APPEARING TO BE SCRATCHING CHEST WITH RESTRAINED HAND CONSISTENTLY. ADMINISTERED VISTARIL 25 MG FOR ITCHING ORDERED. WILL CONTINUE WITH PLAN OF CARE.
[2021-09-19] MEDS: BLOOD SUGAR DIAGNOSTIC 1 EACH STRIP IN SCH ×3 (05:20→17:45)
--- NOTE | 2021-09-19 06:37 | NUR ---
RN CLOSING NOTE PATIENT AWAKE IN BED. PATIENT ON MECHANICAL VENTILATION SATING 99%. NO SOB OR S/S OF RESPIRATORY DISTRESS. ON EXTERNAL DELIVERY TABLE FEEDER READING ST 116 BPM. IV ACCESS AELX MIDLINE INTACT AND PATENT AND RIGHT FEMORAL HD CATH INTACT. G-TUBE INTACT AND PATENT RUNNING NEPRO @ 75 ML/HR. SOFT RIGHT WRIST RESTRAINT ON, SKIN WARM AND INTACT. ALL NEEDS MET AT THIS TIME. SAFETY PRECAUTIONS IN PLACE AT ALL TIMES. BED IN LOWEST LOCKED POSITION, HOB ELEVATED, SIDE RAILS UP X2, AND CALL LIGHT AND TABLE WITHIN REACH. WILL ENDORSE TO ONCOMING SHIFT FOR DENNIS.
--- NOTE | 2021-09-19 07:20 | NUR ---
RN OPENING NOTE RECEIVED PATIENT RESTING AT THIS TIME, EYES CLOSE. PATIENT ON MECHANICAL VENTILATION SATING 99%. BREATHING EVEN AND UNLABORED. NO SOB OR S/S OF RESPIRATORY DISTRESS. IV ACCESS ALEX MIDLINE INTACT AND PATENT AND RIGHT FEMORAL HD CATH. SOFT RIGHT WRIST RESTRAINT ON, NO SKIN INTEGRITY COMPROMISE, CIRCULATION NOT COMPROMISE. WILL REASSESS ACCORDINGLY. SAFETY PRECAUTIONS IN PLACE. BED IN LOWEST LOCKED POSITION, HOB ELEVATED, SIDE RAILS UP X2, AND CALL LIGHT AND TABLE WITHIN REACH. WILL CONTINUE TO MONITOR PATIENT ACCORDINGLY.
[2021-09-19 08:00] VITALS: BP 118/76
[2021-09-19] MEDS: METOCLOPRAMIDE HCL 10 MG TABLET GT SCH ×2 (08:52→16:26)
[2021-09-19] MEDS: ASCORBIC ACID 500 MG TABLET GT SCH (08:53)
[2021-09-19] MEDS: FERROUS SULFATE (325 MG) 325 MG/TAB TABLET GT SCH (08:53)
[2021-09-19] MEDS: MIDODRINE HCL (5MG) 5 MG TABLET GT SCH ×3 (08:53→16:26)
[2021-09-19] MEDS: MULTIVITAMINS,THERAGRAN 1 UDTAB TABLET GT SCH (08:53)
[2021-09-19] MEDS: CHLORHEXIDINE GLUCONATE 15 ML UDC MM SCH ×2 (08:53→20:45)
[2021-09-19] MEDS: DOCUSATE SODIUM 100 MG CAPSULE PO SCH ×2 (08:53→21:10)
[2021-09-19] MEDS: VIT B CMPLX 3/FA/VIT C/BIOTIN 1 TAB TABLET PO SCH (08:53)
[2021-09-19] MEDS: PANTOPRAZOLE 40 MG/PACK PACK GT SCH (08:53)
[2021-09-19] MEDS: PROSOURCE / PROSTAT (PYXIS) 30 ML UDC GT SCH ×3 (08:54→16:26)
[2021-09-19] MEDS: MUPIROCIN OINT 2% 22 GM TUBE NS SCH ×2 (08:54→21:10)
[2021-09-19] MEDS: THERAHONEY GEL 1.5 OZ TUBE TP SCH ×2 (08:55)
[2021-09-19 12:00] VITALS: BP 116/72
--- NOTE | 2021-09-19 12:01 | NUR ---
RN NOTE PATIENT'S BLOOD SUGAR IS 93, NO INSULIN COVERAGE NEEDED. NO S/S OF HYPER/HYPOGYLCEMIA NOTED AT THE TIME.
[2021-09-19] MEDS: CEFEPIME 1 GM in IV D5W 50 ML IV SCH (13:09)
[2021-09-19 13:14] LABS: CALCIUM, SERUM 9.6 mg/dL (8.5-10.1); CREATININE 6.6 mg/dL (0.6-1.3); POTASSIUM 4.2 mmol/L (3.5-5.1)
[2021-09-19 16:00] VITALS: BP 106/78
[2021-09-19] MEDS: NEPRO 1,000 ML BOTTLE GT SCH (16:26)
[2021-09-19] MEDS: ALBUMIN 25% 25 GM in PREMIX 1 EA IV PRN (16:47)
--- NOTE | 2021-09-19 17:46 | NUR ---
RN NOTE PATIENT'S BLOOD SUGAR IS 91, NO INSULIN COVERAGE NEEDED. NO S/S OF HYPER/HYPOGYLCEMIA NOTED AT THE TIME.
--- NOTE | 2021-09-19 19:49 | NUR ---
RN CLOSING NOTES PATIENT REMAINS IN STABLE CONDITION THROUGHOUT SHIFT. PATIENT ON MECHANICAL VENTILATION TOLERATING WELL. BREATHING EVEN AND UNLABORED. NO SOB OR S/S OF RESPIRATORY DISTRESS. IV ACCESS ALEX MIDLINE INTACT AND PATENT AND RIGHT FEMORAL HD CATH. ALL DUE MEDS GIVEN ORDERED. WOUND CARE RENDERED TOLERATED WELL. KEPT PATIENT CLEAN DRY AND COMFORTABLE. ALL NEEDS ATTENDED. SAFETY PRECAUTIONS IN PLACE. BED IN LOWEST LOCKED POSITION, HOB ELEVATED, SIDE RAILS UP X2, AND CALL LIGHT AND TABLE WITHIN REACH. ENDORSED TO ONCOMING NURSE FOR CONTINUITY OF CARE.
[2021-09-19 20:00] VITALS: BP 107/65
[2021-09-19] MEDS: VANCOMYCIN 500 MG in IV D5W 100 ML IV PRN (20:46)
[2021-09-20] VITALS: BP 108/70
[2021-09-20] MEDS: BLOOD SUGAR DIAGNOSTIC 1 EACH STRIP IN SCH ×4 (00:52→17:07)
[2021-09-20] MEDS: INSULIN REGULAR, HUMAN 100 UNIT/ML 3 ML VIAL SQ PRN ×2 (00:56→05:58)
[2021-09-20 04:00] VITALS: BP 117/66
[2021-09-20] MEDS: SEVELAMER CARBONATE 800 MG POWD.PACK GT SCH ×3 (05:09→21:42)
[2021-09-20 06:12] LABS: BASOPHILS # (AUTO) 0.1 K/uL (0.0-0.2); BASOPHILS % (AUTO) 0.6 % (0.0-2.0); HEMATOCRIT 29 % (39-51); HEMOGLOBIN 9.2 g/dL (13.5-17.5); LYMPHOCYTES # (AUTO) 1.2 K/uL (0.8-4.8); LYMPHOCYTES % (AUTO) 9.7 % (20.0-44.0); MEAN CORPUSCULAR HGB CONC 32 g/dl (31.0-36.0); MEAN CORPUSCULAR VOLUME 104 fL (80-96); MONOCYTES # (AUTO) 1.5 K/uL (0.1-1.30); MONOCYTES % (AUTO) 11.7 % (2.0-12.0); NEUTROPHILS # (AUTO) 8.5 K/uL (1.8-8.9); PLATELET COUNT (AUTO) 278 K/uL (150-450); RED BLOOD CELL COUNT(AUTO) 2.83 MIL/uL (4.5-6.0); WHITE BLOOD COUNT (AUTO) 12.5 K/uL (4.3-11.0)
--- NOTE | 2021-09-20 06:20 | NUR ---
RN notes Resting comfortably in bed with no distress noted, breathing even and unlabored. Vent setting well tolerated. Noted with facial grimace, tylenol 650mg/20.3ml, with help. Obtunded, Vital signs wnl. No significant change in condition. Kept clean and dry. Will endorse to next shift for continuity of care.
[2021-09-20 06:35] LABS: CALCIUM, SERUM 9.4 mg/dL (8.5-10.1); CREATININE 6.8 mg/dL (0.6-1.3); POTASSIUM 4.1 mmol/L (3.5-5.1)
[2021-09-20 08:00] VITALS: BP 128/77
[2021-09-20] MEDS: DOCUSATE SODIUM 100 MG CAPSULE PO SCH ×2 (09:24→21:42)
[2021-09-20] MEDS: FERROUS SULFATE (325 MG) 325 MG/TAB TABLET GT SCH (09:24)
[2021-09-20] MEDS: VIT B CMPLX 3/FA/VIT C/BIOTIN 1 TAB TABLET PO SCH (09:24)
[2021-09-20] MEDS: METOCLOPRAMIDE HCL 10 MG TABLET GT SCH ×2 (09:24→17:07)
[2021-09-20] MEDS: PANTOPRAZOLE 40 MG/PACK PACK GT SCH (09:24)
[2021-09-20] MEDS: ASCORBIC ACID 500 MG TABLET GT SCH (09:24)
[2021-09-20] MEDS: MULTIVITAMINS,THERAGRAN 1 UDTAB TABLET GT SCH (09:24)
[2021-09-20] MEDS: CHLORHEXIDINE GLUCONATE 15 ML UDC MM SCH ×2 (09:25→21:42)
[2021-09-20] MEDS: MUPIROCIN OINT 2% 22 GM TUBE NS SCH ×2 (09:25→21:43)
[2021-09-20] MEDS: MIDODRINE HCL (5MG) 5 MG TABLET GT SCH ×3 (09:25→17:07)
[2021-09-20] MEDS: PROSOURCE / PROSTAT (PYXIS) 30 ML UDC GT SCH ×3 (09:25→17:07)
[2021-09-20] MEDS: THERAHONEY GEL 1.5 OZ TUBE TP SCH ×2 (09:26)
[2021-09-20 12:00] VITALS: BP 131/81
[2021-09-20] MEDS: CEFEPIME 1 GM in IV D5W 50 ML IV SCH (14:33)
[2021-09-20 16:00] VITALS: BP 122/76
[2021-09-20] MEDS: NEPRO 1,000 ML BOTTLE GT SCH (17:08)
[2021-09-20 20:00] VITALS: BP 113/73
--- NOTE | 2021-09-20 20:00 | NUR ---
MIMEOGRAPHER NOTE PT IN BED OBTUNDED. ON VENT/TRACH TOLERATING THE SETTINGS WELL. NO DISTRESS OR DISCOMFORT NOTED. NO S/S OF PAIN NOTED. ON TELE ST HR 102. GTF NEPRO INFUSING AT 75 ML/HR, 0 ML RESIDUAL NOTED. ALEX MIDLINE INTACT AND PATENT. FEMORAL HD CATH INTACT. WOUND DRESSINGS I/C/D. KEPT HOB ELEVATED TO 30 DEGREES. REPOSITION HIM Q2H. KEPT HIM DRY AND CLEAN. SIDE RAILS UP X 3 AND CALL LIGHT WITHIN REACH. VSS. CONTINUE TO MONITOR HIM.
[2021-09-21] VITALS: BP 125/75
[2021-09-21 04:00] VITALS: BP 144/89
[2021-09-21] MEDS: SEVELAMER CARBONATE 800 MG POWD.PACK GT SCH ×3 (05:58→22:16)
[2021-09-21] MEDS: BLOOD SUGAR DIAGNOSTIC 1 EACH STRIP IN SCH ×5 (05:59→23:53)
[2021-09-21 06:58] LABS: BASOPHILS # (AUTO) 0.1 K/uL (0.0-0.2); BASOPHILS % (AUTO) 0.4 % (0.0-2.0); HEMATOCRIT 30 % (39-51); HEMOGLOBIN 9.5 g/dL (13.5-17.5); LYMPHOCYTES % (AUTO) 8.1 % (20.0-44.0); MEAN CORPUSCULAR HGB CONC 32 g/dl (31.0-36.0); MEAN CORPUSCULAR VOLUME 102 fL (80-96); MONOCYTES # (AUTO) 1.4 K/uL (0.1-1.30); MONOCYTES % (AUTO) 10.8 % (2.0-12.0); NEUTROPHILS # (AUTO) 8.9 K/uL (1.8-8.9); NEUTROPHILS % (AUTO) 68.7 % (43.0-81.0); PLATELET COUNT (AUTO) 308 K/uL (150-450); RED BLOOD CELL COUNT(AUTO) 2.94 MIL/uL (4.5-6.0); WHITE BLOOD COUNT (AUTO) 12.9 K/uL (4.3-11.0)
[2021-09-21 07:30] LABS: CALCIUM, SERUM 9.7 mg/dL (8.5-10.1)
[2021-09-21 07:33] LABS: CREATININE 7.8 mg/dL (0.6-1.3)
[2021-09-21 08:00] VITALS: BP 131/78
[2021-09-21] MEDS: MULTIVITAMINS,THERAGRAN 1 UDTAB TABLET GT SCH (09:58)
[2021-09-21] MEDS: CHLORHEXIDINE GLUCONATE 15 ML UDC MM SCH ×2 (09:58→22:15)
[2021-09-21] MEDS: PANTOPRAZOLE 40 MG/PACK PACK GT SCH (09:58)
[2021-09-21] MEDS: DOCUSATE SODIUM 100 MG CAPSULE PO SCH ×2 (09:59→22:17)
[2021-09-21] MEDS: METOCLOPRAMIDE HCL 10 MG TABLET GT SCH ×2 (09:59→18:08)
[2021-09-21] MEDS: VIT B CMPLX 3/FA/VIT C/BIOTIN 1 TAB TABLET PO SCH (09:59)
[2021-09-21] MEDS: ASCORBIC ACID 500 MG TABLET GT SCH (09:59)
[2021-09-21] MEDS: FERROUS SULFATE (325 MG) 325 MG/TAB TABLET GT SCH (09:59)
[2021-09-21] MEDS: MIDODRINE HCL (5MG) 5 MG TABLET GT SCH ×3 (09:59→18:07)
[2021-09-21] MEDS: MUPIROCIN OINT 2% 22 GM TUBE NS SCH ×2 (10:10→22:16)
[2021-09-21] MEDS: THERAHONEY GEL 1.5 OZ TUBE TP SCH ×2 (10:10)
[2021-09-21] MEDS: PROSOURCE / PROSTAT (PYXIS) 30 ML UDC GT SCH ×3 (10:10→18:08)
[2021-09-21 12:06] VITALS: BP 139/86
[2021-09-21] MEDS: CEFEPIME 1 GM in IV D5W 50 ML IV SCH (13:19)
[2021-09-21] MEDS: EPOETIN ALFA-EPBX 4,000 UNIT/ML VIAL SQ SCH (14:55)
[2021-09-21 16:00] VITALS: BP 138/91
--- NOTE | 2021-09-21 18:55 | NUR ---
CHANGE OF SHIFT REPORT PT RESTING COMFORTABLY IN BED. NO S/S OR C/O PAIN OR DISTRESS NOTED. SIDE RAILS UP X2, CALL LIGHT LEFT WITHIN REACH. PT KEPT CLEAN, DRY, AND COMFORTABLE. NO SIGNIFICANT CHANGES SINCE PREVIOUS SHIFT.
[2021-09-21 20:00] VITALS: BP 133/83
--- NOTE | 2021-09-21 20:00 | NUR ---
NEW MEDIA STRATEGIST NOTE RECEIVED PT IN BED OBTUNDED, ON VENT/TRACH, TOLERATING SETTINGS WELL. HD IN PROGRESS, VSS. NO DISTRESS OR DISCOMFORT NOTED. NO SIGNS OF PAIN NOTED. GT INFUSING NEPRO AT 75 ML/HR. 0 ML RESIDUAL NOTED. ALEX MIDLINE INTACT BUT NOT PATENT. WILL RECHECK THE MIDLINE. R HAND WITH A MITTEN AND R WRIST SOFT RESTRAINT ON. PT TRYING TO REMOVE TRACH. KEPT HIM DRY AND CLEAN. ALL NEEDS ATTENDED. VSS. ON TELE ST HR 112. REPOSITIONED FOR COMFORT AND SKIN MANAGEMENT. ALL THE WOUND DRESSINGS ARE INTACT, CLEAN AND DRY. SIDE RAILS UP X 3, CALL LIGHT WITHIN REACH. WILL CONTINUE TO MONITOR.
--- NOTE | 2021-09-21 21:00 | NUR ---
COMMUNITY EDUCATION COORDINATOR NOTE HD FINISHED, 2L OUTPUT ACCDG TO HD NURSE. VSS. NO DISTRESS NOTED. ALSO NOTED MIDLINE OUT. NO BLEEDING NOTED. ALEX SWOLLEN. DC'D THE MIDLINE. SECURED WITH 2X2 GAUZE. ENLISTED AIRCREW/AERIAL OBSERVER/GUNNER PILAR INFORMED. RECEIVED NEW ORDER TO REINSERT NEW MIDLINE. CHARGE NURSE AND NURSING NAVAL DESIGNER INFORMED. WILL CONTINUE TO MONITOR.
--- NOTE | 2021-09-21 21:10 | NUR ---
[place] REDEVELOPMENT SPECIALIST NOTE DUE TO NO IV ACCES UNABLE TO GIVE VANCO POST HD. WILL WAIT UNTIL IV ACCESS.
[2021-09-22] VITALS: BP 154/84
--- NOTE | 2021-09-22 01:00 | NUR ---
RUG CLEANER HELPER NOTE LUCAS, THE MIDLINE NURSE CAME AT 0100, INSERTED NEW MIDLINE AT ALEX WITH 18 GAUGE. GOOD BACKFLOW OF BLOOD NOTED. WILL CONTINUE TO MONITOR.
[2021-09-22 04:00] VITALS: BP 135/85
[2021-09-22] MEDS: SEVELAMER CARBONATE 800 MG POWD.PACK GT SCH ×3 (05:00→21:22)
[2021-09-22 05:26] LABS: BASOPHILS # (AUTO) 0.1 K/uL (0.0-0.2); BASOPHILS % (AUTO) 0.7 % (0.0-2.0); HEMATOCRIT 31 % (39-51); HEMOGLOBIN 9.9 g/dL (13.5-17.5); LYMPHOCYTES # (AUTO) 1.3 K/uL (0.8-4.8); LYMPHOCYTES % (AUTO) 10.1 % (20.0-44.0); MEAN CORPUSCULAR HGB CONC 32 g/dl (31.0-36.0); MEAN CORPUSCULAR VOLUME 102 fL (80-96); MONOCYTES # (AUTO) 1.3 K/uL (0.1-1.30); MONOCYTES % (AUTO) 10.5 % (2.0-12.0); NEUTROPHILS # (AUTO) 8.3 K/uL (1.8-8.9); NEUTROPHILS % (AUTO) 66.7 % (43.0-81.0); PLATELET COUNT (AUTO) 319 K/uL (150-450); RED BLOOD CELL COUNT(AUTO) 3.07 MIL/uL (4.5-6.0); WHITE BLOOD COUNT (AUTO) 12.5 K/uL (4.3-11.0)
--- NOTE | 2021-09-22 05:30 | NUR ---
MACHINE PRINTER HOSE NOTE SEN JOHNSON, SON OF PT, GAVE TELEPHONE CONSENT FOR ANESTHESIA AND BLOOD TRANSFUSION. PRE OP CHECKLIST COMPLETED.
[2021-09-22] MEDS: BLOOD SUGAR DIAGNOSTIC 1 EACH STRIP IN SCH ×4 (05:37→23:23)
[2021-09-22] MEDS ORDERED: FAMOTIDINE/PF INJ 20 MG/2 ML VIAL IV ONE (06:27)
--- NOTE | 2021-09-22 07:05 | NUR ---
MOWER OPERATOR NOTE OR CAME TO TAKE PT FOR HIS PROCEDURE. NO DISTRESS AND DISCOMFORT NOTED. ENDORSED TO DAY SHIFT NURSE TO FOLLOW UP.
--- NOTE | 2021-09-22 07:10 | NUR ---
RN OPENING NOTE PATIENT IN BED RESTING AWAKE, NON-VERBAL, NO S/S OF PAIN NOTED AT THIS TIME. ON VENT WITH SATURATION 100% NO DISTRESS OR SHORTNESS OF BREATH NOTED. IV ACCESS ALEX MIDLINE, INTACT, PATENT AND FLUSHING WELL. PATIENT WITH EXTERNAL DYE RANGE OPERATOR WITH CURRENT READING OF ST AND HR OF 110. FALL AND SAFETY MEASURES IN PLACE, BED ALARM ON. BED IN LOW AND LOCK POSITION, CALL LIGHT AND TABLE WITHIN EASY REACH, SIDE RAILS UP X2. WILL CONTINUE TO MONITOR.
--- NOTE | 2021-09-22 07:20 | NUR ---
RN NOTE PATIENT IS NOT IN ROOM WAS TAKEN FOR SURGERY.
--- NOTE | 2021-09-22 08:25 | NUR ---
RN NOTE PATIENT IS BACK FROM SURGERY, PATIENT IN ROOM, V/S TAKEN, STABLE. WILL CONTINUE TO MONITOR
[2021-09-22 08:29] LABS: CALCIUM, SERUM 9.4 mg/dL (8.5-10.1); CREATININE 6.5 mg/dL (0.6-1.3); POTASSIUM 4.3 mmol/L (3.5-5.1)
[2021-09-22 08:30] VITALS: BP 114/67
--- NOTE | 2021-09-22 09:30 | NUR ---
RN NOTE LAB CALLED PATIENT BUN IS 82, PREVIOUS BUN WAS 100, PATIENT HAD DIALYSIS YESTERDAY. CHARGE NURSE AWARE.
[2021-09-22] MEDS: CHLORHEXIDINE GLUCONATE 15 ML UDC MM SCH ×2 (09:34→21:22)
[2021-09-22] MEDS: PANTOPRAZOLE 40 MG/PACK PACK GT SCH (09:34)
[2021-09-22] MEDS: ASCORBIC ACID 500 MG TABLET GT SCH (09:34)
[2021-09-22] MEDS: FERROUS SULFATE (325 MG) 325 MG/TAB TABLET GT SCH (09:34)
[2021-09-22] MEDS: DOCUSATE SODIUM 100 MG CAPSULE PO SCH ×2 (09:34→21:22)
[2021-09-22] MEDS: MULTIVITAMINS,THERAGRAN 1 UDTAB TABLET GT SCH (09:34)
[2021-09-22] MEDS: METOCLOPRAMIDE HCL 10 MG TABLET GT SCH ×2 (09:35→17:47)
[2021-09-22] MEDS: MIDODRINE HCL (5MG) 5 MG TABLET GT SCH ×3 (09:35→17:47)
[2021-09-22] MEDS: VIT B CMPLX 3/FA/VIT C/BIOTIN 1 TAB TABLET PO SCH (09:35)
[2021-09-22] MEDS: PROSOURCE / PROSTAT (PYXIS) 30 ML UDC GT SCH ×3 (09:37→17:47)
[2021-09-22] MEDS: MUPIROCIN OINT 2% 22 GM TUBE NS SCH ×2 (09:37→21:22)
[2021-09-22] MEDS: THERAHONEY GEL 1.5 OZ TUBE TP SCH ×2 (09:38)
[2021-09-22] MEDS: NEPRO 1,000 ML BOTTLE GT SCH (09:48)
--- NOTE | 2021-09-22 10:05 | NUR ---
RN NOTE PATIENT G-TUBE FEEDING WAS RE-STARTED TODAY AT 10:00AM. CHARGE NURSE AWARE.
[2021-09-22 12:00] VITALS: BP 105/65
[2021-09-22] MEDS: AMPICILLIN SODIUM 2 GM in IV NS 0.9% 100 ML IV SCH (13:00)
[2021-09-22 16:00] VITALS: BP 104/72
[2021-09-22] MEDS: ALBUMIN 25% 25 GM in PREMIX 1 EA IV PRN (19:19)
--- NOTE | 2021-09-22 19:21 | NUR ---
RN CLOSING NOTE PATIENT IN BED RESTING AWAKE, NON-VERBAL, NO S/S OF PAIN NOTED AT THIS TIME. ON VENT WITH SATURATION 100% NO DISTRESS OR SHORTNESS OF BREATH NOTED. IV ACCESS ALEX MIDLINE, INTACT, PATENT AND FLUSHING WELL. PATIENT WITH EXTERNAL SQL DATABASE PROGRAMMER WITH CURRENT READING OF ST AND HR OF 104. PATIENT HAD DIALYSIS TODAY, REMOVED: 1L. FALL AND SAFETY MEASURES IN PLACE, BED ALARM ON. BED IN LOW AND LOCK POSITION, CALL LIGHT AND TABLE WITHIN EASY REACH, SIDE RAILS UP X2. WILL ENDORSE TO ACIDIZER HELPER.
--- NOTE | 2021-09-22 19:40 | NUR ---
RN NOTE PT RECEIVED IN BED, RESTING COMFORTABLY. PT IS TRACH/VENT WITH SETTINGS AT AC: 15, TV: 500, FIO2: 40%, AND PEEP OF 5. TOLERATING SETTINGS WELL WITH OXYGEN SATURATION AT 100%. PT IS OBTUNDED. ON EXTRA GANG SUPERVISOR SHOWING ST. RESTRAINT NOTED ON RIGHT HAND, ALL SAFETY MEASURES/PROTOCOLS INITIATED/IMPLEMENTED. IV ACCESS NOTED ON RIGHT UA ML. LEFT FEMORAL HD CATH NOTED WELL. ALL SAFETY MEASURES IMPLEMENTED. WILL CONTINUE TO MONITOR AND ASSESS FOR ANY CHANGES DURING SHIFT.
[2021-09-22 20:00] VITALS: BP 119/76
[2021-09-22] MEDS: VANCOMYCIN 500 MG in IV D5W 100 ML IV PRN (21:25)
[2021-09-22] MEDS: INSULIN REGULAR, HUMAN 100 UNIT/ML 3 ML VIAL SQ PRN (23:24)
[2021-09-23] VITALS: BP 109/70
[2021-09-23] MEDS: AMPICILLIN SODIUM 2 GM in IV NS 0.9% 100 ML IV SCH ×2 (01:54→13:16)
[2021-09-23 04:00] VITALS: BP 113/70
[2021-09-23] MEDS: BLOOD SUGAR DIAGNOSTIC 1 EACH STRIP IN SCH ×3 (05:21→17:58)
[2021-09-23] MEDS: SEVELAMER CARBONATE 800 MG POWD.PACK GT SCH ×3 (05:23→20:45)
[2021-09-23] MEDS: INSULIN REGULAR, HUMAN 100 UNIT/ML 3 ML VIAL SQ PRN ×2 (05:23→17:59)
--- NOTE | 2021-09-23 06:59 | NUR ---
RN NOTE NO CHANGES IN PT CONDITION DURING SHIFT. PT IS TRACH/VENT WITH SETTINGS AT AC: 15, TV: 500, FIO2: 40%, AND PEEP OF 5. TOLERATING SETTINGS WELL WITH OXYGEN SATURATION AT 100%. PT IS OBTUNDED. ON COMBINE DRIVER SHOWING ST. RESTRAINT NOTED ON RIGHT HAND, ALL SAFETY MEASURES/PROTOCOLS INITIATED/IMPLEMENTED. IV ACCESS NOTED ON RIGHT UA ML. ALL DUE MEDS GIVEN ORDERED. PT KEPT CLEAN AND COMFORTABLE. WILL ENDORSE TO MORNING SHIFT RN FOR DENNIS.
[2021-09-23 07:24] LABS: BASOPHILS # (AUTO) 0.1 K/uL (0.0-0.2); BASOPHILS % (AUTO) 1.3 % (0.0-2.0); EOSINOPHILS % (AUTO) 11.4 % (0.0-6.0); HEMATOCRIT 30 % (39-51); HEMOGLOBIN 9.4 g/dL (13.5-17.5); LYMPHOCYTES # (AUTO) 1.3 K/uL (0.8-4.8); LYMPHOCYTES % (AUTO) 11.4 % (20.0-44.0); MEAN CORPUSCULAR HGB CONC 32 g/dl (31.0-36.0); MEAN CORPUSCULAR VOLUME 102 fL (80-96); MONOCYTES # (AUTO) 1.3 K/uL (0.1-1.30); MONOCYTES % (AUTO) 11.5 % (2.0-12.0); NEUTROPHILS # (AUTO) 7.4 K/uL (1.8-8.9); NEUTROPHILS % (AUTO) 64.4 % (43.0-81.0); PLATELET COUNT (AUTO) 298 K/uL (150-450); RED BLOOD CELL COUNT(AUTO) 2.93 MIL/uL (4.5-6.0); WHITE BLOOD COUNT (AUTO) 11.6 K/uL (4.3-11.0)
[2021-09-23 07:58] LABS: CALCIUM, SERUM 9.2 mg/dL (8.5-10.1); CREATININE 6.6 mg/dL (0.6-1.3); MAGNESIUM 3.4 mg/dL (1.8-2.4); PHOSPHORUS 4.6 mg/dL (2.5-4.9); POTASSIUM 4.1 mmol/L (3.5-5.1)
[2021-09-23 08:00] VITALS: BP 124/79
--- NOTE | 2021-09-23 08:21 | NUR ---
RN NOTE PT RECEIVED IN BED, RESTING COMFORTABLY. PT IS TRACH/VENT WITH SETTINGS AT AC: 15, TV: 500, FIO2: 40%, AND PEEP OF 5. TOLERATING SETTINGS WELL WITH OXYGEN SATURATION AT 100%. PT IS OBTUNDED. ON PHOTOGRAPHY SPOTTER SHOWING ST. GT TUBE NOTED TO BE STOPPED 0500 WILL RESUME 1300. RESTRAINT NOTED ON RIGHT HAND, ALL SAFETY MEASURES/PROTOCOLS INITIATED/IMPLEMENTED. IV ACCESS NOTED ON RIGHT UA ML. LEFT FEMORAL HD CATH NOTED WELL. ALL SAFETY MEASURES IMPLEMENTED.
[2021-09-23] MEDS: THERAHONEY GEL 1.5 OZ TUBE TP SCH ×2 (09:00)
[2021-09-23] MEDS: CHLORHEXIDINE GLUCONATE 15 ML UDC MM SCH ×2 (09:04→20:45)
[2021-09-23] MEDS: ASCORBIC ACID 500 MG TABLET GT SCH (09:06)
[2021-09-23] MEDS: MIDODRINE HCL (5MG) 5 MG TABLET GT SCH ×3 (09:07→17:51)
[2021-09-23] MEDS: DOCUSATE SODIUM 100 MG CAPSULE PO SCH ×2 (09:07→20:45)
[2021-09-23] MEDS: PANTOPRAZOLE 40 MG/PACK PACK GT SCH (09:07)
[2021-09-23] MEDS: METOCLOPRAMIDE HCL 10 MG TABLET GT SCH ×2 (09:08→17:51)
[2021-09-23] MEDS: VIT B CMPLX 3/FA/VIT C/BIOTIN 1 TAB TABLET PO SCH (09:08)
[2021-09-23] MEDS: PROSOURCE / PROSTAT (PYXIS) 30 ML UDC GT SCH ×3 (09:08→17:51)
[2021-09-23] MEDS: MULTIVITAMINS,THERAGRAN 1 UDTAB TABLET GT SCH (09:08)
[2021-09-23] MEDS: FERROUS SULFATE (325 MG) 325 MG/TAB TABLET GT SCH (09:08)
[2021-09-23 12:00] VITALS: BP 121/59
[2021-09-23] MEDS: MUPIROCIN OINT 2% 22 GM TUBE NS SCH ×2 (13:17→20:46)
[2021-09-23] MEDS ORDERED: PROPOFOL 200 MG/20 ML VIAL IV ONE (13:35)
[2021-09-23] MEDS ORDERED: METOCLOPRAMIDE HCL 10 MG/2 ML VIAL IV ONE (13:35)
[2021-09-23] MEDS ORDERED: LIDOCAINE 2% 10 ML MDV IJ ONE (13:35)
[2021-09-23] MEDS ORDERED: CEFAZOLIN 1 GM VIAL IV ONE (13:35)
[2021-09-23] MEDS ORDERED: ONDANSETRON HCL/PF 4 MG/2 ML VIAL IVP ONE (13:35)
[2021-09-23 16:00] VITALS: BP 133/73
[2021-09-23] MEDS: EPOETIN ALFA-EPBX 4,000 UNIT/ML VIAL SQ SCH (16:09)
--- NOTE | 2021-09-23 19:52 | NUR ---
RN CLOSING NOTE PT IN BED, RESTING COMFORTABLY. PT IS TRACH/VENT WITH SETTINGS AT AC: 15, TV: 500, FIO2: 40%, AND PEEP OF 5. TOLERATING SETTINGS WELL WITH OXYGEN SATURATION AT 100%. PT IS OBTUNDED. ON SOLID WASTE FACILITY OPERATOR SHOWING ST. GT TUBE NOTED TO BE STOPPED 0500 WILL RESUME 1300. RESTRAINT NOTED ON RIGHT HAND, ALL SAFETY MEASURES/PROTOCOLS INITIATED/IMPLEMENTED. IV ACCESS NOTED ON RIGHT UA ML. LEFT FEMORAL HD CATH NOTED WELL. ALL SAFETY MEASURES IMPLEMENTED. WILL ENDORSE TO NIGHT NURSE FOR DENNIS
[2021-09-23 20:00] VITALS: BP 137/84
--- NOTE | 2021-09-23 20:35 | NUR ---
RN NOTE OBTAINED VERBAL CONSENT VIA TELEPHONE FROM SON SEN. FOR SERIAL DEBRIDEMENT OF BILATERAL LOWER EXTREMITIES. SECOND BY CANDY FORREST.
[2021-09-24] VITALS: BP 127/83
[2021-09-24] MEDS: BLOOD SUGAR DIAGNOSTIC 1 EACH STRIP IN SCH ×4 (00:10→17:10)
[2021-09-24] MEDS: AMPICILLIN SODIUM 2 GM in IV NS 0.9% 100 ML IV SCH ×2 (01:18→13:25)
[2021-09-24] MEDS: NEPRO 1,000 ML BOTTLE GT SCH (03:41)
[2021-09-24 04:00] VITALS: BP 131/83
[2021-09-24] MEDS: SEVELAMER CARBONATE 800 MG POWD.PACK GT SCH ×3 (05:15→21:42)
[2021-09-24 06:37] LABS: BASOPHILS # (AUTO) 0.1 K/uL (0.0-0.2); BASOPHILS % (AUTO) 0.9 % (0.0-2.0); EOSINOPHILS % (AUTO) 13.2 % (0.0-6.0); HEMATOCRIT 29 % (39-51); HEMOGLOBIN 9.2 g/dL (13.5-17.5); LYMPHOCYTES # (AUTO) 1.4 K/uL (0.8-4.8); LYMPHOCYTES % (AUTO) 11.3 % (20.0-44.0); MEAN CORPUSCULAR HGB CONC 32 g/dl (31.0-36.0); MEAN CORPUSCULAR VOLUME 102 fL (80-96); MONOCYTES # (AUTO) 1.5 K/uL (0.1-1.30); MONOCYTES % (AUTO) 12.7 % (2.0-12.0); NEUTROPHILS # (AUTO) 7.5 K/uL (1.8-8.9); NEUTROPHILS % (AUTO) 61.9 % (43.0-81.0); PLATELET COUNT (AUTO) 313 K/uL (150-450); RED BLOOD CELL COUNT(AUTO) 2.88 MIL/uL (4.5-6.0); WHITE BLOOD COUNT (AUTO) 12.1 K/uL (4.3-11.0)
[2021-09-24 07:02] LABS: CALCIUM, SERUM 9.4 mg/dL (8.5-10.1); CREATININE 7.4 mg/dL (0.6-1.3); MAGNESIUM 3.8 mg/dL (1.8-2.4); PHOSPHORUS 5.3 mg/dL (2.5-4.9); POTASSIUM 4.3 mmol/L (3.5-5.1)
--- NOTE | 2021-09-24 07:22 | NUR ---
RN CLOSING NOTE PATIENT RESTING IN BED. CONTACT ISOLATION MAINTAINED. OBTUNDED. ON MECHANICAL VENT, NO CHANGES. NO RESP DISTRESS. NO S/S PAIN NOTED. SINUS TACHYCARDIA ON THE MONITOR. RIGHT MITTEN AND SOFT WRIST APPLIED. WOUND CARE DONE. BLOOD SUGAR MONITORED WITH NO EPISODE OF HYPOGLYCEMIA. OBTAINED WOUND DEBRIDEMENT CONSENT. GTUBE RUNNING NEPRO @75, STOPPED AT 0500/ IV REMAIN INTACT.
--- NOTE | 2021-09-24 07:25 | NUR ---
RN OPENING NOTE PT RECEIVED IN BED, RESTING COMFORTABLY. PT IS TRACH/VENT WITH SETTINGS AT AC: 15, TV: 500, FIO2: 40%, AND PEEP OF 5. TOLERATING SETTINGS WELL WITH OXYGEN SATURATION AT 100%. PT IS OBTUNDED. ON AREA DIRECTOR SHOWING ST. GT TUBE NOTED TO BE STOPPED 0500 WILL RESUME 1300. RESTRAINT NOTED ON RIGHT HAD. IV ACCESS NOTED ON RIGHT UA ML. LEFT FEMORAL HD CATH NOTED WELL. ALL SAFETY MEASURES IMPLEMENTED BED LOCKED IN THE LOWEST POSITION, 2 SIDE RAILS UP, SEMI FOWLERS POSITION, CALL LIGHT WITHIN REACH.
[2021-09-24 08:00] VITALS: BP 130/88
[2021-09-24] MEDS: FERROUS SULFATE (325 MG) 325 MG/TAB TABLET GT SCH (08:34)
[2021-09-24] MEDS: ASCORBIC ACID 500 MG TABLET GT SCH (08:34)
[2021-09-24] MEDS: CHLORHEXIDINE GLUCONATE 15 ML UDC MM SCH ×2 (08:34→21:44)
[2021-09-24] MEDS: MIDODRINE HCL (5MG) 5 MG TABLET GT SCH ×3 (08:34→17:10)
[2021-09-24] MEDS: VIT B CMPLX 3/FA/VIT C/BIOTIN 1 TAB TABLET PO SCH (08:34)
[2021-09-24] MEDS: METOCLOPRAMIDE HCL 10 MG TABLET GT SCH ×2 (08:35→17:09)
[2021-09-24] MEDS: PANTOPRAZOLE 40 MG/PACK PACK GT SCH (08:35)
[2021-09-24] MEDS: DOCUSATE SODIUM 100 MG CAPSULE PO SCH ×2 (08:35→21:44)
[2021-09-24] MEDS: MULTIVITAMINS,THERAGRAN 1 UDTAB TABLET GT SCH (08:38)
[2021-09-24] MEDS: PROSOURCE / PROSTAT (PYXIS) 30 ML UDC GT SCH ×3 (08:38→17:09)
[2021-09-24] MEDS: THERAHONEY GEL 1.5 OZ TUBE TP SCH ×2 (08:40)
[2021-09-24] MEDS: MUPIROCIN OINT 2% 22 GM TUBE NS SCH ×2 (08:40→21:47)
[2021-09-24 12:00] VITALS: BP 115/78
[2021-09-24] MEDS: INSULIN REGULAR, HUMAN 100 UNIT/ML 3 ML VIAL SQ PRN ×2 (12:14→17:11)
--- NOTE | 2021-09-24 15:16 | NUR ---
LON NOTE LEFT HEEL WOUND CULTURE SENT TO LAB. Addendum: 09/24/21 at 1516 by MATEUSZ DOUGLAS RN Amended: Links added.
[2021-09-24 16:00] VITALS: BP 117/78
--- NOTE | 2021-09-24 18:44 | NUR ---
RN CLOSING NOTE PATIENT IN BED RESTING AWAKE, NON-VERBAL, NO S/S OF PAIN NOTED AT THIS TIME. ON VENT WITH SATURATION 100% NO DISTRESS OR SHORTNESS OF BREATH NOTED. IV ACCESS ALEX MIDLINE, INTACT, PATENT AND FLUSHING WELL. PATIENT WITH EXTERNAL SMOKING PIPES CLEANER. PATIENT HAD DIALYSIS TODAY, REMOVED: 1.5L. FALL AND SAFETY MEASURES IN PLACE, BED ALARM ON. BED IN LOW AND LOCK POSITION, CALL LIGHT AND TABLE WITHIN EASY REACH, SIDE RAILS UP X2. WILL ENDORSE TO COLD ROLL CATCHER.
--- NOTE | 2021-09-24 19:00 | NUR ---
RN NOTE RECEIVED PATIENT IN BED, OBTUNDED, IN NO ACUTE DISTRESS AT THIS TIME. ON TRACH TO MECHANICAL VENT WITH SETTINGS PRESCRIBED, TOLERATING WELL, SATURATION AT 100%, ST WITH PVC'S ON THE MONITOR, HR IS 106. ALEX MIDLINE PATENT AND FLUSHING WELL, L FEMORAL HD CATH IN PLACE, NO S/S OF INFECTION. NOTED GTUBE INTACT POSITIVE PLACEMENT NOTED, NO RESIDUAL, WITH TUBE FEEDING OF NEPRO AT 75 ML/HR. SOFT WRIST RESTRAINT AND MITTEN NOTED AT RIGHT HAND, SKIN AND CIRCULATION CHECKED AND ARE WITHIN DEFINED LIMITS. SAFETY MEASURES IMPLEMENTED. PATIENT BED ALARM IS ON. HEAD OF BED ELEVATED. BED IS LOCKED, IN LOWEST POSITION AND SIDE RAILS UP. CALL LIGHT WITHIN REACH OF THE PATIENT. WILL CONTINUE TO MONITOR AND REASSESS FOR ANY CHANGES.
[2021-09-24 20:00] VITALS: BP 108/71
[2021-09-25] VITALS: BP 109/73
[2021-09-25] MEDS: AMPICILLIN SODIUM 2 GM in IV NS 0.9% 100 ML IV SCH ×2 (00:13→12:33)
[2021-09-25] MEDS: BLOOD SUGAR DIAGNOSTIC 1 EACH STRIP IN SCH ×5 (00:18→23:55)
[2021-09-25 04:00] VITALS: BP 124/78
[2021-09-25] MEDS: SEVELAMER CARBONATE 800 MG POWD.PACK GT SCH ×3 (06:00→21:37)
--- NOTE | 2021-09-25 06:31 | NUR ---
RN NOTE NOTED PT DIET STILL ON NPO WHICH WAS ORDERED BY DR CARTER PRIOR TO PERMA CATH PLACEMENT, AND WAS NOT RESUMED. DIET/TUBE FEEDING RESUMED PER ORDERS: NEPRO AT 75 ML/HR. TELETYPESETTER OPERATOR MINA OCASIO
[2021-09-25 06:48] LABS: BASOPHILS # (AUTO) 0.1 K/uL (0.0-0.2); BASOPHILS % (AUTO) 0.6 % (0.0-2.0); EOSINOPHILS % (AUTO) 11.3 % (0.0-6.0); HEMATOCRIT 30 % (39-51); HEMOGLOBIN 9.3 g/dL (13.5-17.5); LYMPHOCYTES # (AUTO) 1.4 K/uL (0.8-4.8); LYMPHOCYTES % (AUTO) 10.1 % (20.0-44.0); MEAN CORPUSCULAR HGB CONC 32 g/dl (31.0-36.0); MEAN CORPUSCULAR VOLUME 102 fL (80-96); MONOCYTES # (AUTO) 1.5 K/uL (0.1-1.30); MONOCYTES % (AUTO) 10.9 % (2.0-12.0); NEUTROPHILS # (AUTO) 9.1 K/uL (1.8-8.9); NEUTROPHILS % (AUTO) 67.1 % (43.0-81.0); PLATELET COUNT (AUTO) 309 K/uL (150-450); RED BLOOD CELL COUNT(AUTO) 2.89 MIL/uL (4.5-6.0); WHITE BLOOD COUNT (AUTO) 13.6 K/uL (4.3-11.0)
[2021-09-25 06:56] LABS: CALCIUM, SERUM 9.3 mg/dL (8.5-10.1); CREATININE 6.1 mg/dL (0.6-1.3); MAGNESIUM 3.6 mg/dL (1.8-2.4); PHOSPHORUS 4.4 mg/dL (2.5-4.9)
--- NOTE | 2021-09-25 07:41 | NUR ---
WORKERS COMPENSATION CLAIMS ASSISTANT OPENING NOTE RECEIVED PATIENT IN BED, OBTUNDED, ON TRACH TO MECHANICAL VENT WITH SETTINGS PRESCRIBED, TOLERATING WELL, SATURATION AT 100%, ST WITH PVC'S ON THE MONITOR, HR IS reading 106-110. ALEX MIDLINE PATENT AND FLUSHING WELL, L FEMORAL HD CATH IN PLACE, NO S/S OF INFECTION. NOTED GTUBE INTACT POSITIVE PLACEMENT NOTED, NO RESIDUAL, TUBE FEEDING TO RESTART AT 1300 OF NEPRO AT 75 ML/HR. SOFT WRIST RESTRAINT AND MITTEN NOTED AT RIGHT HAND, SKIN AND CIRCULATION CHECKED AND ARE WITHIN DEFINED LIMITS. SAFETY MEASURES IMPLEMENTED. PATIENT BED ALARM IS ON. HEAD OF BED ELEVATED. BED IS LOCKED, IN LOWEST POSITION AND SIDE RAILS UP. CALL LIGHT WITHIN REACH OF THE PATIENT. WILL CONTINUE TO MONITOR.
[2021-09-25 08:00] VITALS: BP 119/79
[2021-09-25] MEDS: PROSOURCE / PROSTAT (PYXIS) 30 ML UDC GT SCH ×3 (08:13→17:33)
[2021-09-25] MEDS: ASCORBIC ACID 500 MG TABLET GT SCH (08:14)
[2021-09-25] MEDS: DOCUSATE SODIUM 100 MG CAPSULE PO SCH ×2 (08:14→21:37)
[2021-09-25] MEDS: CHLORHEXIDINE GLUCONATE 15 ML UDC MM SCH ×2 (08:14→21:37)
[2021-09-25] MEDS: VIT B CMPLX 3/FA/VIT C/BIOTIN 1 TAB TABLET PO SCH (08:14)
[2021-09-25] MEDS: FERROUS SULFATE (325 MG) 325 MG/TAB TABLET GT SCH (08:15)
[2021-09-25] MEDS: MULTIVITAMINS,THERAGRAN 1 UDTAB TABLET GT SCH (08:15)
[2021-09-25] MEDS: PANTOPRAZOLE 40 MG/PACK PACK GT SCH (08:15)
[2021-09-25] MEDS: MIDODRINE HCL (5MG) 5 MG TABLET GT SCH ×3 (08:15→17:33)
[2021-09-25] MEDS: METOCLOPRAMIDE HCL 10 MG TABLET GT SCH ×2 (08:16→17:33)
[2021-09-25] MEDS: THERAHONEY GEL 1.5 OZ TUBE TP SCH ×2 (08:16→08:17)
[2021-09-25 12:00] VITALS: BP 122/83
[2021-09-25] MEDS: NEPRO 1,000 ML BOTTLE GT SCH (12:33)
[2021-09-25 16:00] VITALS: BP 119/78
[2021-09-25] MEDS: EPOETIN ALFA-EPBX 4,000 UNIT/ML VIAL SQ SCH (17:29)
--- NOTE | 2021-09-25 19:05 | NUR ---
RN CLOSING NOTE PATIENT IN BED RESTING AWAKE, NON-VERBAL, NO S/S OF PAIN NOTED AT THIS TIME. ON VENT WITH SATURATION 100% NO DISTRESS OR SHORTNESS OF BREATH NOTED. IV ACCESS ALEX MIDLINE, INTACT, PATENT AND FLUSHING WELL. PATIENT WITH EXTERNAL MANAGEMENT PLANNER. FALL AND SAFETY MEASURES IN PLACE, BED ALARM ON. BED IN LOW AND LOCK POSITION, CALL LIGHT AND TABLE WITHIN EASY REACH, SIDE RAILS UP X2. WILL ENDORSE TO STEEL LAYER.
--- NOTE | 2021-09-25 19:05 | NUR ---
RN OPENING NOTES RECEIVED PATIENT ON BED, AWAKE, OBTUNDED. ON MECHANICAL VENTILATION SETTINGS TOLERATED WELL. RESPIRATORY EVEN AND UNLABORED, NO SOB NOTED. REMAIN AFEBRILE. NO S/S OF DISTRESS NOTED. NOTED WITH ALEX MID LINE INTACT PATENT, FLUSHED WITH NS. NO INFILTRATION NOTED AT SITE. LEFT FEMORAL HD CATHETER, NO BLEEDING AT SITE. G-TUBE INPLACED, INTACT. VERIFIED PLACEMENT VIA AUSCULTATION, FLUSHED WITH WATER. NO RESIDUAL NOTED UPON ASPIRATION, RUNNING WITH NEPHRO @ 75ML/HR. KEEP HEAD OF BED ELEVATED. NOTED WITH RIGHT SOFT WRIST RESTRAINT AND MITTEN. SAFETY MEASURE PROVIDED. BED IN LOWEST POSITION, LOCKED. BED ALARM ARMED. CONTINUE TO MONITOR.
[2021-09-25 20:00] VITALS: BP 133/85
[2021-09-25] MEDS: INSULIN REGULAR, HUMAN 100 UNIT/ML 3 ML VIAL SQ PRN (23:57)
--- NOTE | 2021-09-25 23:57 | NUR ---
RN NOTES BLOOD SUGAR 108 mg/dL, NO INSULIN COVERAGE PER SLIDING SCALE
[2021-09-26] VITALS: BP 130/71
[2021-09-26] MEDS: AMPICILLIN SODIUM 2 GM in IV NS 0.9% 100 ML IV SCH ×2 (01:29→13:58)
[2021-09-26 04:00] VITALS: BP 122/73
[2021-09-26] MEDS: SEVELAMER CARBONATE 800 MG POWD.PACK GT SCH ×3 (05:04→21:27)
[2021-09-26] MEDS: BLOOD SUGAR DIAGNOSTIC 1 EACH STRIP IN SCH ×4 (06:46→23:36)
[2021-09-26] MEDS: INSULIN REGULAR, HUMAN 100 UNIT/ML 3 ML VIAL SQ PRN ×2 (06:47→23:36)
--- NOTE | 2021-09-26 06:48 | NUR ---
RN NOTES BLOOD SUGAR 79 mg/dL, NO INSULIN COVERAGE PER SLIDING SCALE
--- NOTE | 2021-09-26 07:13 | NUR ---
RN NOTES NO SIGNIFICANT CHANGES THROUGH OUT THE SHIFT. RESPIRATORY EVEN AND UNLABORED, NO SOB NOTED. REMAIN AFEBRILE. NO S/S OF DISTRESS NOTED. NOTED WITH ALEX MID LINE INTACT PATENT, FLUSHED WITH NS. NO INFILTRATION NOTED AT SITE. LEFT FEMORAL HD CATHETER, NO BLEEDING AT SITE, RUNNING WITH NEPHRO @ 75ML/HR. X 16 HRS, OFF AT 0500 AND ON AT 1300. HEAD OF BED KEPT ELEVATED. WITH RIGHT SOFT WRIST RESTRAINT AND MITTEN. ALL DUE MEDS GIVEN ORDERED. SAFETY MEASURE PROVIDED. BED IN LOWEST POSITION, LOCKED. BED ALARM ARMED. ENDORSED TO NEXT SHIFT.
--- NOTE | 2021-09-26 07:30 | NUR ---
RN NOTE RECEIVED PATIENT ON BED, AWAKE, OBTUNDED. ON MECHANICAL VENTILATION .RESPIRATORY EVEN AND UNLABORED, NO SOB NOTED. AFEBRILE. NO S/S OF DISTRESS NOTED. NOTED WITH ALEX MID LINE WHICH WAS NOT FLUSHING WELL. INFORMED CHARGE NURSE TO ORDER ANOTHER MIDLINE. LEFT FEMORAL HD CATHETER INTACT., NO BLEEDING AT SITE. G-TUBE IN PLACED, INTACT. VERIFIED PLACEMENT VIA AUSCULTATION, FLUSHED WITH WATER. NO RESIDUAL NOTED. KEEP HEAD OF BED ELEVATED. NOTED WITH RIGHT SOFT WRIST RESTRAINT, SKIN CHECKS DONE. BED LOCKED IN LOWEST POSITION. CALLLIGHT AND TABLE IN REACH. WILL CONTINUE TO MONITOR.
[2021-09-26] MEDS: PANTOPRAZOLE 40 MG/PACK PACK GT SCH (07:46)
[2021-09-26 08:00] VITALS: BP 123/82
[2021-09-26] MEDS: ASCORBIC ACID 500 MG TABLET GT SCH (08:35)
[2021-09-26] MEDS: VIT B CMPLX 3/FA/VIT C/BIOTIN 1 TAB TABLET PO SCH (08:35)
[2021-09-26] MEDS: PROSOURCE / PROSTAT (PYXIS) 30 ML UDC GT SCH ×3 (08:35→16:28)
[2021-09-26] MEDS: CHLORHEXIDINE GLUCONATE 15 ML UDC MM SCH ×2 (08:35→21:27)
[2021-09-26] MEDS: FERROUS SULFATE (325 MG) 325 MG/TAB TABLET GT SCH (08:35)
[2021-09-26] MEDS: MULTIVITAMINS,THERAGRAN 1 UDTAB TABLET GT SCH (08:36)
[2021-09-26] MEDS: METOCLOPRAMIDE HCL 10 MG TABLET GT SCH ×2 (08:36→16:28)
[2021-09-26] MEDS: DOCUSATE SODIUM 100 MG CAPSULE PO SCH ×2 (08:36→21:27)
[2021-09-26] MEDS: MIDODRINE HCL (5MG) 5 MG TABLET GT SCH ×3 (08:38→16:29)
[2021-09-26] MEDS: THERAHONEY GEL 1.5 OZ TUBE TP SCH ×2 (09:26→09:27)
[2021-09-26] MEDS: ALBUMIN 25% 25 GM in PREMIX 1 EA IV PRN (11:48)
[2021-09-26 12:00] VITALS: BP 118/80
[2021-09-26] MEDS: ACETAMINOPHEN 650 MG/20.3 ML UDC GT PRN (13:39)
[2021-09-26] MEDS: NEPRO 1,000 ML BOTTLE GT SCH (14:10)
[2021-09-26 16:02] LABS: BASOPHILS # (AUTO) 0.1 K/uL (0.0-0.2); BASOPHILS % (AUTO) 0.5 % (0.0-2.0); HEMATOCRIT 31 % (39-51); HEMOGLOBIN 9.4 g/dL (13.5-17.5); LYMPHOCYTES # (AUTO) 1.4 K/uL (0.8-4.8); LYMPHOCYTES % (AUTO) 12.3 % (20.0-44.0); MEAN CORPUSCULAR HGB CONC 31 g/dl (31.0-36.0); MEAN CORPUSCULAR VOLUME 102 fL (80-96); MONOCYTES # (AUTO) 1.5 K/uL (0.1-1.30); NEUTROPHILS # (AUTO) 7.1 K/uL (1.8-8.9); NEUTROPHILS % (AUTO) 63.2 % (43.0-81.0); PLATELET COUNT (AUTO) 326 K/uL (150-450); RED BLOOD CELL COUNT(AUTO) 3.03 MIL/uL (4.5-6.0); WHITE BLOOD COUNT (AUTO) 11.3 K/uL (4.3-11.0)
[2021-09-26 16:16] LABS: CALCIUM, SERUM 9.3 mg/dL (8.5-10.1); CREATININE 4.9 mg/dL (0.6-1.3); MAGNESIUM 3.1 mg/dL (1.8-2.4); PHOSPHORUS 3.2 mg/dL (2.5-4.9); POTASSIUM 3.7 mmol/L (3.5-5.1)
[2021-09-26 16:23] VITALS: BP 111/71
[2021-09-26 17:14] LABS: EOSINOPHILS % (MANUAL) 14 % (0-4); LYMPHOCYTES % (MANUAL) 9 % (16-48); MONOCYTES % (MANUAL) 8 % (0-11.0); NEUTROPHILS % (MANUAL) 69 (42-76)
--- NOTE | 2021-09-26 17:15 | NUR ---
RN NOTES INSULIN NOT GIVEN FOR HS=114
--- NOTE | 2021-09-26 19:04 | NUR ---
RN NOTE PATIENT ON BED, AWAKE, OBTUNDED. ON MECHANICAL VENTILATION .RESPIRATORY EVEN AND UNLABORED, NO SOB NOTED. AFEBRILE. NO S/S OF DISTRESS NOTED. katty mid line intact. LEFT FEMORAL HD CATHETER INTACT., NO BLEEDING AT SITE. G-TUBE IN PLACED, INTACT. VERIFIED PLACEMENT VIA AUSCULTATION, FLUSHED WITH WATER. NO RESIDUAL NOTED. KEEP HEAD OF BED ELEVATED. NOTED WITH RIGHT SOFT WRIST RESTRAINT, SKIN CHECKS DONE. ALL DUE MEDS GIVEN ORDERED. BED LOCKED IN LOWEST POSITION. CALL LIGHT AND TABLE IN REACH. JULIANNA FOR DENNIS.
--- NOTE | 2021-09-26 19:30 | NUR ---
RN NOTES RECEIVED PT FOR CONTINUITY OF CARE. PATIENT NON VERAL IN NO S/SX OF ACUTE DISTRESS AT THIS TIME; CURRENTLY ON MECHANICAL VENT; SETTING PRESCRIBED, WITH 02 SAT >95% AT THIS TIME WITH IV ACCESS ON R UA MIDLINE#18 PATENT, INTACT AND FLUSHING WELL. WITH GTUBE FEEDING RUNNING PRESCRIBED. WILL ENSURE SAFETY MEASURES WITHIN THE SHIFT. PATIENT BED ALARM IS ON. HEAD OF BED ELEVATED. BED IS LOCKED, IN LOWEST POSITION AND SIDE RAILS UP. CALL LIGHT WITHIN REACH OF THE PATIENT. APPLICABLE ISOLATION PRECAUTIONS IN PLACE. WILL CONTINUE TO MONITOR AND REASSESS FOR ANY CHANGES AND WILL CARRY OUT ANY ONGOING AND ACTIVE MD ORDER.
[2021-09-26 20:00] VITALS: BP 129/89
[2021-09-27] VITALS: BP 133/89
[2021-09-27] MEDS: ONDANSETRON HCL/PF 4 MG/2 ML VIAL IVP PRN (00:01)
[2021-09-27] MEDS: AMPICILLIN SODIUM 2 GM in IV NS 0.9% 100 ML IV SCH ×2 (00:07→13:36)
[2021-09-27 04:00] VITALS: BP 135/90
[2021-09-27] MEDS: SEVELAMER CARBONATE 800 MG POWD.PACK GT SCH ×3 (05:15→20:16)
[2021-09-27] MEDS: BLOOD SUGAR DIAGNOSTIC 1 EACH STRIP IN SCH ×3 (05:19→17:18)
[2021-09-27] MEDS: INSULIN REGULAR, HUMAN 100 UNIT/ML 3 ML VIAL SQ PRN ×3 (05:20→17:18)
--- NOTE | 2021-09-27 06:33 | NUR ---
RN CLOSING NOTE: PATIENT REMAINS IN ROOM IN NO SIGNS OF RESPIRATORY DISTRESS, PATIENT STILL ON MECH VENT; SETTINGS PRESCRIBED;TOLERATING WELL SATURATING @ >95% SP02. SAFETY MEASURES IMPLEMENTED, BED IN LOWEST POSITION, LOCKED, SIDE RAILS UP, CALL LIGHT WITHIN REACH. ALL NEEDS AND ORDERS ADDRESSED DURING THE SHIFT. IV ACCESS MAINTAINED INTACT, SECURED AND FLUSHING WELL. ALL DUE MEDS GIVEN ORDERED & SCHEDULED ; PATIENT TOLERATED WELL PATIENT KEPT CLEAN AND COMFORTABLE WITHIN THE SHIFT. PATIENT ENDORSED TO INCOMING SHIFT RN WITH STABLE VITAL SIGN AND FOR CONTINUITY OF CARE.
[2021-09-27 07:11] LABS: BASOPHILS # (AUTO) 0.1 K/uL (0.0-0.2); BASOPHILS % (AUTO) 0.7 % (0.0-2.0); EOSINOPHILS % (AUTO) 11.1 % (0.0-6.0); HEMATOCRIT 30 % (39-51); HEMOGLOBIN 9.3 g/dL (13.5-17.5); LYMPHOCYTES # (AUTO) 1.2 K/uL (0.8-4.8); LYMPHOCYTES % (AUTO) 9.4 % (20.0-44.0); MEAN CORPUSCULAR HGB CONC 31 g/dl (31.0-36.0); MEAN CORPUSCULAR VOLUME 101 fL (80-96); MONOCYTES # (AUTO) 1.4 K/uL (0.1-1.30); MONOCYTES % (AUTO) 11.4 % (2.0-12.0); NEUTROPHILS # (AUTO) 8.2 K/uL (1.8-8.9); NEUTROPHILS % (AUTO) 67.4 % (43.0-81.0); PLATELET COUNT (AUTO) 322 K/uL (150-450); RED BLOOD CELL COUNT(AUTO) 2.98 MIL/uL (4.5-6.0); WHITE BLOOD COUNT (AUTO) 12.2 K/uL (4.3-11.0)
--- NOTE | 2021-09-27 07:17 | NUR ---
RN OPENING NOTES RECEIVED PATIENT RESTING IN BED. PATIENT NON VERAL. NO S/SX OF ACUTE DISTRESS AT THIS TIME; CURRENTLY ON MECHANICAL VENT; SETTING PRESCRIBED, WITH 02 SAT >95% AT THIS TIME WITH IV ACCESS ON R UA MIDLINE#18 PATENT. WITH GTUBE FEEDING RUNNING PRESCRIBED. WILL ENSURE SAFETY MEASURES WITHIN THE SHIFT. PATIENT BED ALARM IS ON. HEAD OF BED ELEVATED. BED IS LOCKED, IN LOWEST POSITION AND SIDE RAILS UP. CALL LIGHT WITHIN REACH OF THE PATIENT. APPLICABLE ISOLATION PRECAUTIONS IN PLACE
[2021-09-27 07:36] LABS: CALCIUM, SERUM 9.1 mg/dL (8.5-10.1); CREATININE 5.7 mg/dL (0.6-1.3); POTASSIUM 3.8 mmol/L (3.5-5.1)
--- NOTE | 2021-09-27 07:49 | NUR ---
RN NOTE PATIENT NOTED TO HAVE NEPRO RUNNING X 16HR. PAUSED [phone].
[2021-09-27 08:00] VITALS: BP 116/73
[2021-09-27] MEDS: CHLORHEXIDINE GLUCONATE 15 ML UDC MM SCH ×2 (08:06→20:16)
[2021-09-27] MEDS: ASCORBIC ACID 500 MG TABLET GT SCH (08:07)
[2021-09-27] MEDS: PANTOPRAZOLE 40 MG/PACK PACK GT SCH (08:07)
[2021-09-27] MEDS: MULTIVITAMINS,THERAGRAN 1 UDTAB TABLET GT SCH (08:07)
[2021-09-27] MEDS: DOCUSATE SODIUM 100 MG CAPSULE PO SCH ×2 (08:07→20:16)
[2021-09-27] MEDS: VIT B CMPLX 3/FA/VIT C/BIOTIN 1 TAB TABLET PO SCH (08:07)
[2021-09-27] MEDS: FERROUS SULFATE (325 MG) 325 MG/TAB TABLET GT SCH (08:07)
[2021-09-27] MEDS: METOCLOPRAMIDE HCL 10 MG TABLET GT SCH ×2 (08:08→17:07)
[2021-09-27] MEDS: PROSOURCE / PROSTAT (PYXIS) 30 ML UDC GT SCH ×3 (08:09→17:07)
[2021-09-27] MEDS: MIDODRINE HCL (5MG) 5 MG TABLET GT SCH ×3 (08:10→17:08)
[2021-09-27] MEDS: THERAHONEY GEL 1.5 OZ TUBE TP SCH ×2 (09:00→10:44)
[2021-09-27 12:00] VITALS: BP 130/90
[2021-09-27] MEDS ORDERED: CEFTRIAXONE 1GM BAG (ER ONLY) 1 GM/50 ML PIGGYBACK IV ONE (15:00)
--- NOTE | 2021-09-27 15:16 | NUR ---
RN NOTE RECEIVED CALL REGARDING PATIENTS VANCO ADMINISTRATION. VANCO TROUGH LESS THAN 15 ON 09/26/2021. OKAY TO ADMINISTER PRN DOSE. CURRENT TROUGH 13
[2021-09-27] MEDS: VANCOMYCIN 500 MG in IV D5W 100 ML IV PRN (15:19)
[2021-09-27] MEDS: NEPRO 1,000 ML BOTTLE GT SCH (15:23)
[2021-09-27 16:00] VITALS: BP 123/83
[2021-09-27] MEDS ORDERED: CEFTRIAXONE 2 G in IV D5W 100 ML IV ONE (16:00)
--- NOTE | 2021-09-27 19:41 | NUR ---
RN OPENING NOTES RECEIVED CARE OF PATIENT FROM AM NURSE WHILE PATIENT IN BED, OBTUNDED, OPENS EYES TO NAME. PATIENT ON MECHANICAL VENTILATION WITH ORDERED SETTINGS, NO SOB NOTED, NO RESPIRATORY COMPLICATIONS NOTED, O2 SAT 100%. PATIENT WITH IV ACCESS ON R UA MIDLINE#18 PATENT. WITH GTUBE FEEDING RUNNING PRESCRIBED. NO SIGNIFICANT FINDINGS UPON INITIAL NURSING ASSESSMENTS. SAFETY MEASURES IN PLACE, PATIENT BED ALARM IS ON. HEAD OF BED ELEVATED. BED IS LOCKED, IN LOWEST POSITION AND SIDE RAILS UP. CALL LIGHT WITHIN REACH OF THE PATIENT. APPLICABLE ISOLATION PRECAUTIONS IN PLACE. WILL CONTINUE TO MONITOR PATIENT.
[2021-09-27 20:00] VITALS: BP 141/84
[2021-09-28] VITALS: BP 136/73
[2021-09-28] MEDS: BLOOD SUGAR DIAGNOSTIC 1 EACH STRIP IN SCH ×4 (00:11→18:48)
[2021-09-28] MEDS: INSULIN REGULAR, HUMAN 100 UNIT/ML 3 ML VIAL SQ PRN ×2 (00:11→06:10)
[2021-09-28] MEDS: AMPICILLIN SODIUM 2 GM in IV NS 0.9% 100 ML IV SCH ×2 (00:47→12:04)
--- NOTE | 2021-09-28 01:05 | NUR ---
RN NOTES PATIENT NOTED TO BE RESTLESS, IRRITABLE, ATTEMPTING TO REMOVE SELF FROM RIGHT SOFT WRIST RESTRAINT. IN THE PROCESS, PATIENT REMOVED ALEX MIDLINE. NO BLEEDING NOTED, PATIENT SHOWS NO SIGNS OF CIRCULATORY DISTRESS. REPOSITIONED FOR COMFORT, ASSESSED SKIN INTEGRITY AND CIRCULATION AROUND RESTRAINT. WILL ADMINISTER ATIVAN PRN AND ATTEMPT TO GET A NEW IV ACCESS ON PATIENT. Addendum: 09/29/21 at 0110 by GARIMA DENISE RN WRONG ENTRY/WRONG TIME. INTENDED NOTE TIME IS 2130 ON 09/28/21
[2021-09-28 04:00] VITALS: BP 129/90
[2021-09-28] MEDS: SEVELAMER CARBONATE 800 MG POWD.PACK GT SCH ×3 (06:09→20:57)
[2021-09-28] MEDS: PANTOPRAZOLE 40 MG/PACK PACK GT SCH (07:26)
--- NOTE | 2021-09-28 07:30 | NUR ---
lay out worker OPENING NOTES: RECEIVED PATIENT IN BED, OBTUNDED, OPENS EYES TO NAME. PATIENT ON MECHANICAL VENTILATION SETTING , NO SOB NOTED, NO RESPIRATORY COMPLICATIONS NOTED, O2 SAT 100%. PATIENT WITH IV ACCESS ON R UA MIDLINE#18 PATENT. WITH GTUBE FEEDING OF NEPRO AT 75ML/HR WELL TOLERATED,0 RESIDUAL. NO SIGNIFICANT FINDINGS UPON INITIAL NURSING ASSESSMENTS. SAFETY MEASURES IN PLACE, PATIENT BED ALARM IS ON. HEAD OF BED ELEVATED. BED IS LOCKED, IN LOWEST POSITION AND SIDE RAILS UP. CALL LIGHT WITHIN REACH OF THE PATIENT. APPLICABLE ISOLATION PRECAUTIONS IN PLACE. WILL CONTINUE TO MONITOR PATIENT.
[2021-09-28] MEDS: NEPRO 1,000 ML BOTTLE GT SCH (07:48)
[2021-09-28 08:00] VITALS: BP 135/75
[2021-09-28] MEDS: DOCUSATE SODIUM 100 MG CAPSULE PO SCH (08:34)
[2021-09-28] MEDS: VIT B CMPLX 3/FA/VIT C/BIOTIN 1 TAB TABLET PO SCH (08:35)
[2021-09-28] MEDS: FERROUS SULFATE (325 MG) 325 MG/TAB TABLET GT SCH (08:36)
[2021-09-28] MEDS: MULTIVITAMINS,THERAGRAN 1 UDTAB TABLET GT SCH (08:36)
[2021-09-28] MEDS: METOCLOPRAMIDE HCL 10 MG TABLET GT SCH ×2 (08:36→16:54)
[2021-09-28] MEDS: ASCORBIC ACID 500 MG TABLET GT SCH (08:37)
[2021-09-28] MEDS: THERAHONEY GEL 1.5 OZ TUBE TP SCH ×2 (08:40→08:41)
[2021-09-28] MEDS: MIDODRINE HCL (5MG) 5 MG TABLET GT SCH ×3 (08:40→16:53)
[2021-09-28] MEDS: CHLORHEXIDINE GLUCONATE 15 ML UDC MM SCH ×2 (08:40→20:58)
[2021-09-28] MEDS: PROSOURCE / PROSTAT (PYXIS) 30 ML UDC GT SCH ×3 (08:40→16:54)
[2021-09-28 09:49] LABS: ALANINE AMINOTRANSFERASE < 6 U/L (12-78); ALBUMIN 2.5 g/dL (3.4-5.0); ALKALINE PHOSPHATASE 131 U/L (46-116); ASPARTATE AMINOTRANSFERASE 15 U/L (15-37); BILIRUBIN,TOTAL 0.4 mg/dL (0.2-1.0); CALCIUM, SERUM 9.8 mg/dL (8.5-10.1); CARBON DIOXIDE 23 mmol/L (21-32); CHLORIDE 102 mmol/L (98-107); CREATININE 6.7 mg/dL (0.6-1.3); GLUCOSE 105 mg/dL (74-106); MAGNESIUM 3.6 mg/dL (1.8-2.4); PHOSPHORUS 5.1 mg/dL (2.5-4.9); POTASSIUM 4.1 mmol/L (3.5-5.1); SODIUM SERUM 142 mmol/L (136-145); TOTAL PROTEIN, SERUM 7.8 g/dL (6.4-8.2)
[2021-09-28 10:20] LABS: UREA NITROGEN, BLOOD 92 mg/dL (7-18)
[2021-09-28 12:00] VITALS: BP 145/76
[2021-09-28 14:19] LABS: BASOPHILS # (AUTO) 0.1 K/uL (0.0-0.2); BASOPHILS % (AUTO) 0.8 % (0.0-2.0); EOSINOPHILS % (AUTO) 11.1 % (0.0-6.0); HEMATOCRIT 32 % (39-51); HEMOGLOBIN 9.8 g/dL (13.5-17.5); LYMPHOCYTES # (AUTO) 1.3 K/uL (0.8-4.8); LYMPHOCYTES % (AUTO) 9.8 % (20.0-44.0); MEAN CORPUSCULAR HGB CONC 31 g/dl (31.0-36.0); MEAN CORPUSCULAR VOLUME 102 fL (80-96); MONOCYTES # (AUTO) 1.5 K/uL (0.1-1.30); MONOCYTES % (AUTO) 10.9 % (2.0-12.0); NEUTROPHILS # (AUTO) 9.1 K/uL (1.8-8.9); NEUTROPHILS % (AUTO) 67.4 % (43.0-81.0); PLATELET COUNT (AUTO) 325 K/uL (150-450); RED BLOOD CELL COUNT(AUTO) 3.16 MIL/uL (4.5-6.0); WHITE BLOOD COUNT (AUTO) 13.6 K/uL (4.3-11.0)
--- NOTE | 2021-09-28 15:26 | NUR ---
called pharmacy to send retacrit to administer as ordered, lab result still pending will send after result is available, will follow up
[2021-09-28 16:00] VITALS: BP 151/61
--- NOTE | 2021-09-28 16:26 | NUR ---
rn notes: called pharmacy to send retacrit, lab result is available with hemoglobin 9.8, will send medicine
[2021-09-28] MEDS: EPOETIN ALFA-EPBX 4,000 UNIT/ML VIAL SQ SCH (16:50)
[2021-09-28] MEDS: MEROPENEM 500 MG in IV NS 0.9% 50 ML IV SCH (17:49)
--- NOTE | 2021-09-28 19:13 | NUR ---
carbon furnace operator CLOSING NOTES: PATIENT RESTING IN BED. PATIENT NON VERAL. NO S/SX OF ACUTE DISTRESS AT THIS TIME, ON MECHANICAL VENT; SETTING ORDERED, WITH 02 SAT99% AT THIS TIME WITH IV ACCESS ON R UA MIDLINE#18 PATENT. WITH GTUBE FEEDING RUNNING PRESCRIBED. WILL ENSURE SAFETY MEASURES WITHIN THE SHIFT. PATIENT BED ALARM IS ON. HEAD OF BED ELEVATED. BED IS LOCKED, IN LOWEST POSITION AND SIDE RAILS UP. CALL LIGHT WITHIN REACH OF THE PATIENT. APPLICABLE ISOLATION PRECAUTIONS IN PLACE
--- NOTE | 2021-09-28 19:30 | NUR ---
RN OPENING NOTES RECEIVED CARE OF PATIENT FROM AM NURSE WHILE PATIENT IN BED, OBTUNDED, OPENS EYES TO NAME. PATIENT ON MECHANICAL VENTILATION WITH ORDERED SETTINGS, NO SOB NOTED, NO RESPIRATORY COMPLICATIONS NOTED, O2 SAT 99%. PATIENT WITH IV ACCESS ON R UA MIDLINE#18 PATENT. WITH GTUBE FEEDING RUNNING PRESCRIBED. NO SIGNIFICANT FINDINGS UPON INITIAL NURSING ASSESSMENTS. SAFETY MEASURES IN PLACE, PATIENT BED ALARM IS ON. HEAD OF BED ELEVATED. BED IS LOCKED, IN LOWEST POSITION AND SIDE RAILS UP. CALL LIGHT WITHIN REACH OF THE PATIENT. APPLICABLE ISOLATION PRECAUTIONS IN PLACE. WILL CONTINUE TO MONITOR PATIENT.
[2021-09-28 20:00] VITALS: BP 114/74
[2021-09-28] MEDS: DOCUSATE SODIUM LIQ 100 MG/10 ML UDC GT SCH (20:57)
[2021-09-28] MEDS: LORAZEPAM 1 MG TABLET GT PRN (20:59)
[2021-09-29] VITALS: BP 124/70
[2021-09-29] MEDS: NEPRO 1,000 ML BOTTLE GT SCH (00:24)
[2021-09-29] MEDS: BLOOD SUGAR DIAGNOSTIC 1 EACH STRIP IN SCH ×5 (00:44→23:55)
[2021-09-29] MEDS: INSULIN REGULAR, HUMAN 100 UNIT/ML 3 ML VIAL SQ PRN ×3 (00:44→23:56)
[2021-09-29 04:00] VITALS: BP 113/73
[2021-09-29] MEDS: SEVELAMER CARBONATE 800 MG POWD.PACK GT SCH ×3 (05:43→21:12)
--- NOTE | 2021-09-29 07:06 | NUR ---
WOUND CARE CONSULT: PT SEEN FOR RT INDEX FINGER WOUND. PT NOTED TO BE RUBBING HIS THUMB AGAINST HIS INDEX FINGER. PT IS COMBATIVE. FINGERS ARE CONTRACTED. HEALED AREA NOTED TO THUMB. PER RN REPORT, PT HAD REMOVED HIS MIDLINE LAST NIGHT DUE TO HIS CONSTANT MOVEMENT/RUBBING OF RT UPPER EXTREMITY. DISCUSSED WOUND AND WOUND TREATMENT WITH SURGICAL TEAM CURRENTLY ON CASE AND WITH NURSING STAFF. IN AGREEMENT WITH PLAN OF CARE. Addendum: 09/29/21 at 0709 by ERLINDA ROBLERO WNDNU Amended: Links added.
--- NOTE | 2021-09-29 07:33 | NUR ---
IMAGING TECHNOLOGIST OPENING NOTES RECEIVED PATIENT IN BED, A/O X0 OBTUNDED, OPENS EYES. PATIENT ON MECHANICAL VENTILATION SETTING , NO SOB NOTED, NO RESPIRATORY COMPLICATIONS NOTED, O2 SAT 100%. PATIENT WITH IV ACCESS ON R UA MIDLINE#18 PATENT. SOFT RESTRAINT ON RIGHT ARM IN PLACE. GTUBE FEEDING OF NEPRO AT 75ML/HR WELL TOLERATED. NO SIGNIFICANT FINDINGS UPON INITIAL NURSING ASSESSMENTS. SAFETY MEASURES IN PLACE, PATIENT BED ALARM IS ON. HEAD OF BED ELEVATED. BED IS LOCKED, IN LOWEST POSITION AND SIDE RAILS UP. CALL LIGHT WITHIN REACH OF THE PATIENT. APPLICABLE ISOLATION PRECAUTIONS IN PLACE. WILL CONTINUE TO MONITOR PATIENT.
--- NOTE | 2021-09-29 07:34 | NUR ---
RN CLOSING NOTES ENDORSED CARE OF PATIENT TO AM NURSE IN STABLE CONDITIONS. ALL PATIENT NEEDS MET THROUGHOUT SHIFT, ALL DUE MEDS GIVEN. NO SIGNIFICANT FINDINGS UPON ALL NURSING ASSESSMENTS. WOUND CARE DONE ORDERED. SAFETY MEASURES KEPT IN PLACE ACCORDING TO HOSPITAL PROTOCOLS. ENDORSE TO AM NURSE FOR DENNIS.
[2021-09-29 07:40] LABS: CALCIUM, SERUM 9.5 mg/dL (8.5-10.1); CREATININE 4.8 mg/dL (0.6-1.3); MAGNESIUM 3.1 mg/dL (1.8-2.4); PHOSPHORUS 4.2 mg/dL (2.5-4.9); POTASSIUM 4.1 mmol/L (3.5-5.1)
[2021-09-29 07:41] LABS: BASOPHILS # (AUTO) 0.1 K/uL (0.0-0.2); BASOPHILS % (AUTO) 0.6 % (0.0-2.0); EOSINOPHILS % (AUTO) 13.8 % (0.0-6.0); HEMATOCRIT 32 % (39-51); HEMOGLOBIN 10.2 g/dL (13.5-17.5); LYMPHOCYTES # (AUTO) 1.3 K/uL (0.8-4.8); LYMPHOCYTES % (AUTO) 13.1 % (20.0-44.0); MEAN CORPUSCULAR HGB CONC 32 g/dl (31.0-36.0); MEAN CORPUSCULAR VOLUME 101 fL (80-96); MONOCYTES # (AUTO) 1.2 K/uL (0.1-1.30); MONOCYTES % (AUTO) 12.2 % (2.0-12.0); NEUTROPHILS # (AUTO) 6.2 K/uL (1.8-8.9); NEUTROPHILS % (AUTO) 60.3 % (43.0-81.0); PLATELET COUNT (AUTO) 309 K/uL (150-450); RED BLOOD CELL COUNT(AUTO) 3.18 MIL/uL (4.5-6.0); WHITE BLOOD COUNT (AUTO) 10.2 K/uL (4.3-11.0)
[2021-09-29 08:00] VITALS: BP 118/62
[2021-09-29] MEDS: CHLORHEXIDINE GLUCONATE 15 ML UDC MM SCH ×2 (08:28→21:12)
[2021-09-29] MEDS: VIT B CMPLX 3/FA/VIT C/BIOTIN 1 TAB TABLET PO SCH (08:28)
[2021-09-29] MEDS: MEROPENEM 500 MG in IV NS 0.9% 50 ML IV SCH (08:28)
[2021-09-29] MEDS: DOCUSATE SODIUM LIQ 100 MG/10 ML UDC GT SCH ×2 (08:29→21:12)
[2021-09-29] MEDS: MULTIVITAMINS,THERAGRAN 1 UDTAB TABLET GT SCH (08:29)
[2021-09-29] MEDS: ASCORBIC ACID 500 MG TABLET GT SCH (08:29)
[2021-09-29] MEDS: MIDODRINE HCL (5MG) 5 MG TABLET GT SCH ×4 (08:30→17:00)
[2021-09-29] MEDS: FERROUS SULFATE (325 MG) 325 MG/TAB TABLET GT SCH (08:30)
[2021-09-29] MEDS: PANTOPRAZOLE 40 MG/PACK PACK GT SCH (08:31)
[2021-09-29] MEDS: THERAHONEY GEL 1.5 OZ TUBE TP SCH ×2 (08:31)
[2021-09-29] MEDS: METOCLOPRAMIDE HCL 10 MG TABLET GT SCH ×2 (08:31→18:07)
[2021-09-29] MEDS: PROSOURCE / PROSTAT (PYXIS) 30 ML UDC GT SCH ×3 (08:34→18:07)
[2021-09-29 12:00] VITALS: BP 138/77
[2021-09-29] MEDS: AMPICILLIN SODIUM 2 GM in IV NS 0.9% 100 ML IV SCH (13:40)
[2021-09-29 16:00] VITALS: BP 124/78
--- NOTE | 2021-09-29 18:40 | NUR ---
EXTERNAL GRINDER CLOSING NOTES PATIENT RESTING IN BED. PATIENT NON VERBAL. NO S/SX OF ACUTE DISTRESS AT THIS TIME, ON MECHANICAL VENT; SETTING ORDERED, WITH 02 SAT 100% AT THIS TIME WITH IV ACCESS ON R UA MIDLINE#18 PATENT. WITH GTUBE FEEDING RUNNING AND IS TOLERATED WELL 0 RESIDUALS. WILL ENSURE SAFETY MEASURES WITHIN THE SHIFT. PATIENT BED ALARM IS ON. HEAD OF BED ELEVATED. BED IS LOCKED, IN LOWEST POSITION AND SIDE RAILS UP. CALL LIGHT WITHIN REACH OF THE PATIENT. WILL ENDORSE TO SPECIAL LIBRARIAN NURSE.
--- NOTE | 2021-09-29 19:25 | NUR ---
RN NOTE PT RECEIVED IN BED, RESTING COMFORTABLY. PT IS TRACH/VENT WITH SETTINGS AT AC: 15, TV: 500, FIO2: 40%, AND PEEP OF 5. TOLERATING SETTINGS WELL WITH OXYGEN SATURATION AT 100%. PT IS OBTUNDED. ON COTTON GIN YARD SUPERVISOR SHOWING ST. RESTRAINT NOTED, ALL SAFETY MEASURES/PROTOCOLS INITIATED/IMPLEMENTED. IV ACCESS NOTED ON RIGHT UA ML. LINE PATENT AND INTACT. G-TUBE RUNNING NEPRO AT 75 CC/HR. PT TOLERATING WELL. ALL SAFETY MEASURES IMPLEMENTED. WILL CONTINUE TO MONITOR AND ASSESS FOR ANY CHANGES DURING SHIFT.
[2021-09-29 20:00] VITALS: BP 147/82
--- NOTE | 2021-09-29 23:56 | NUR ---
blood sugar 96mg/dL at this time no insulin administered per sliding scale coverage.
[2021-09-30] VITALS: BP 155/85
[2021-09-30] MEDS: AMPICILLIN SODIUM 2 GM in IV NS 0.9% 100 ML IV SCH ×2 (01:58→12:54)
[2021-09-30 04:00] VITALS: BP 102/64
[2021-09-30] MEDS: SEVELAMER CARBONATE 800 MG POWD.PACK GT SCH ×3 (05:17→20:42)
[2021-09-30] MEDS: NEPRO 1,000 ML BOTTLE GT SCH (05:17)
[2021-09-30] MEDS: BLOOD SUGAR DIAGNOSTIC 1 EACH STRIP IN SCH ×3 (05:36→17:50)
[2021-09-30] MEDS: INSULIN REGULAR, HUMAN 100 UNIT/ML 3 ML VIAL SQ PRN (05:36)
[2021-09-30] MEDS: ACETAMINOPHEN 650 MG/20.3 ML UDC GT PRN ×2 (05:56→13:03)
[2021-09-30 06:28] LABS: BASOPHILS # (AUTO) 0.1 K/uL (0.0-0.2); BASOPHILS % (AUTO) 0.7 % (0.0-2.0); EOSINOPHILS % (AUTO) 12.5 % (0.0-6.0); HEMATOCRIT 32 % (39-51); HEMOGLOBIN 9.9 g/dL (13.5-17.5); LYMPHOCYTES # (AUTO) 1.3 K/uL (0.8-4.8); LYMPHOCYTES % (AUTO) 13.4 % (20.0-44.0); MEAN CORPUSCULAR HGB CONC 32 g/dl (31.0-36.0); MEAN CORPUSCULAR VOLUME 101 fL (80-96); MONOCYTES # (AUTO) 1.2 K/uL (0.1-1.30); MONOCYTES % (AUTO) 11.6 % (2.0-12.0); NEUTROPHILS # (AUTO) 6.2 K/uL (1.8-8.9); NEUTROPHILS % (AUTO) 61.8 % (43.0-81.0); PLATELET COUNT (AUTO) 299 K/uL (150-450); RED BLOOD CELL COUNT(AUTO) 3.11 MIL/uL (4.5-6.0)
--- NOTE | 2021-09-30 06:34 | NUR ---
RN NOTE NO CHANGES IN PT CONDITION DURING SHIFT. PT IS TRACH/VENT WITH SETTINGS AT AC: 15, TV: 500, FIO2: 40%, AND PEEP OF 5. TOLERATING SETTINGS WELL WITH OXYGEN SATURATION AT 100%. PT IS OBTUNDED. ON CORPORATE OPERATIONS COMPLIANCE MANAGER SHOWING ST. RESTRAINT NOTED, ALL SAFETY MEASURES/PROTOCOLS INITIATED/IMPLEMENTED THROUGHOUT SHIFT. IV ACCESS NOTED ON RIGHT UA ML. LINE PATENT AND INTACT. G-TUBE RUNNING NEPRO AT 75 CC/HR. PT TOLERATING WELL. ALL SAFETY MEASURES IMPLEMENTED. WILL ENDORSE TO MORNING SHIFT RN FOR DENNIS.
--- NOTE | 2021-09-30 07:36 | NUR ---
RN OPENING NOTE PATIENT IN BED RESTING, OBTUNDED, NO S/S OF PAIN NOTED AT THIS TIME. ON VENT SETTING AT AC: 15, TV: 500, FIO2: 40, PEEP: 5 TOLERATING SETTING WELL, SATURATION 100%. IV ACCESS ALEX MIDLINE, INTACT, PATENT AND FLUSHING WELL. PATIENT ON EXTERNAL BAKERY TEAM MEMBER WITH CURRENT READING OF ST AND HR OF 105. FALL AND SAFETY MEASURES IN PLACE, BED ALARM ON, BED IN LOW AND LOCK POSITION, CALL LIGHT AND TABLE WITHIN EASY REACH, SIDE RAILS UP X2. WILL CONTINUE TO MONITOR.
[2021-09-30 07:38] LABS: CALCIUM, SERUM 9.7 mg/dL (8.5-10.1); MAGNESIUM 3.4 mg/dL (1.8-2.4); PHOSPHORUS 4.9 mg/dL (2.5-4.9); POTASSIUM 4.3 mmol/L (3.5-5.1)
[2021-09-30 08:00] VITALS: BP 127/90
[2021-09-30] MEDS: MEROPENEM 500 MG in IV NS 0.9% 50 ML IV SCH (09:00)
[2021-09-30] MEDS: FERROUS SULFATE (325 MG) 325 MG/TAB TABLET GT SCH (09:01)
[2021-09-30] MEDS: DOCUSATE SODIUM LIQ 100 MG/10 ML UDC GT SCH ×2 (09:01→20:42)
[2021-09-30] MEDS: PANTOPRAZOLE 40 MG/PACK PACK GT SCH (09:01)
[2021-09-30] MEDS: CHLORHEXIDINE GLUCONATE 15 ML UDC MM SCH ×2 (09:01→20:43)
[2021-09-30] MEDS: MULTIVITAMINS,THERAGRAN 1 UDTAB TABLET GT SCH (09:02)
[2021-09-30] MEDS: ASCORBIC ACID 500 MG TABLET GT SCH (09:02)
[2021-09-30] MEDS: VIT B CMPLX 3/FA/VIT C/BIOTIN 1 TAB TABLET PO SCH (09:02)
[2021-09-30] MEDS: METOCLOPRAMIDE HCL 10 MG TABLET GT SCH ×2 (09:02→16:53)
[2021-09-30] MEDS: MIDODRINE HCL (5MG) 5 MG TABLET GT SCH ×3 (09:03→16:55)
[2021-09-30] MEDS: PROSOURCE / PROSTAT (PYXIS) 30 ML UDC GT SCH ×3 (09:03→16:53)
[2021-09-30] MEDS: THERAHONEY GEL 1.5 OZ TUBE TP SCH ×2 (09:04)
--- NOTE | 2021-09-30 10:02 | NUR ---
RT RECEIVED PATIENT TRACH'D (PORTEX 8 CUFFED) ON [facility] VENT WITH SETTINGS PER MD ORDER. CASH APPLICATIONS ASSOCIATE DONE. SUCTIONED SMALL AMOUNTS OF SOMMER SECRETIONS. ALARMS ON AND WORKING PROPERLY. SPARE TRACH AND AMBU BAG AT BEDSIDE. VENT PLUGGED INTO RED OUTLET. NO SOB NOTED. WILL CONTINUE TO MONITOR FOR ANY CHANGES. Addendum: 09/30/21 at 1430 by JAVID HART RT Amended: Links added.
[2021-09-30 12:00] VITALS: BP 124/78
[2021-09-30 16:00] VITALS: BP 123/78
[2021-09-30] MEDS: EPOETIN ALFA-EPBX 4,000 UNIT/ML VIAL SQ SCH (17:49)
--- NOTE | 2021-09-30 18:54 | NUR ---
RN CLOSING NOTE PATIENT IN BED RESTING, OBTUNDED, NO S/S OF PAIN NOTED AT THIS TIME. ON VENT SETTING AT AC: 15, TV: 500, FIO2: 40, PEEP: 5 TOLERATING SETTING WELL, SATURATION 100%. IV ACCESS ALEX MIDLINE, INTACT, PATENT AND FLUSHING WELL. PATIENT ON EXTERNAL WATER POLLUTION CONTROL TECHNICIAN WITH CURRENT READING OF ST AND HR OF 120. FALL AND SAFETY MEASURES IN PLACE, BED ALARM ON, BED IN LOW AND LOCK POSITION, CALL LIGHT AND TABLE WITHIN EASY REACH, SIDE RAILS UP X2. WILL ENDORSE TO CASTING ASSOCIATE.
[2021-09-30 20:00] VITALS: BP 111/76
[2021-09-30] MEDS ORDERED: VANCOMYCIN 1 GM in IV D5W 250 ML IV ONE (20:00)
--- NOTE | 2021-09-30 20:00 | NUR ---
RN NOTE RECEIVED PT IN BED, JUST DONE WITH DIALYSIS. 2L OUT. NO SIGNS OF DISTRESS NOTED. PT ON VENT. O2 SAT AT100%. GT PATENT AND INPLACE, ON NEPRO FEEDING AT 75ML/HR. NO RESIDUALS NOTED. KEPT HOB ELEVATED. WITH WRIST SOFT RESTRAINTS ON MITTENS OF RHAND. SINUS TACH ON TELE MONITOR WITH HR OF 115 PTS BASELINE. WOUND DRESSINGS INTACT. WILL CONTINUE TO MONITOR.
[2021-10-01] VITALS: BP 130/63
[2021-10-01] MEDS: AMPICILLIN SODIUM 2 GM in IV NS 0.9% 100 ML IV SCH ×2 (00:35→12:46)
[2021-10-01] MEDS: BLOOD SUGAR DIAGNOSTIC 1 EACH STRIP IN SCH ×4 (00:35→16:55)
[2021-10-01] MEDS: ONDANSETRON HCL/PF 4 MG/2 ML VIAL IVP PRN (01:25)
--- NOTE | 2021-10-01 01:25 | NUR ---
RN NOTE NOTED PT VOMITING, ZOFRAN GIVEN. KEPT HOB ELEVATED. HELD GT FEEDING. NO S/SX OF ASPIRATION NOTED. WILL CONTINUE TO MONITOR.
[2021-10-01] MEDS: NEPRO 1,000 ML BOTTLE GT SCH (03:54)
[2021-10-01 04:00] VITALS: BP 119/85
--- NOTE | 2021-10-01 04:00 | NUR ---
RN NOTE RESTARTED GT FEEDING. NO VOMITING NOTED AFTER ZOFRAN. WILL CONTINUE TO MONITOR.
[2021-10-01] MEDS: SEVELAMER CARBONATE 800 MG POWD.PACK GT SCH ×3 (05:48→21:45)
[2021-10-01 06:18] LABS: CALCIUM, SERUM 9.8 mg/dL (8.5-10.1); CREATININE 4.7 mg/dL (0.6-1.3); POTASSIUM 4.1 mmol/L (3.5-5.1)
[2021-10-01 06:24] LABS: BASOPHILS # (AUTO) 0.1 K/uL (0.0-0.2); BASOPHILS % (AUTO) 0.7 % (0.0-2.0); EOSINOPHILS % (AUTO) 8.7 % (0.0-6.0); HEMATOCRIT 32 % (39-51); LYMPHOCYTES # (AUTO) 1.2 K/uL (0.8-4.8); LYMPHOCYTES % (AUTO) 9.9 % (20.0-44.0); MEAN CORPUSCULAR HGB CONC 31 g/dl (31.0-36.0); MEAN CORPUSCULAR VOLUME 101 fL (80-96); MONOCYTES # (AUTO) 1.5 K/uL (0.1-1.30); MONOCYTES % (AUTO) 12.4 % (2.0-12.0); NEUTROPHILS # (AUTO) 8.4 K/uL (1.8-8.9); NEUTROPHILS % (AUTO) 68.3 % (43.0-81.0); PLATELET COUNT (AUTO) 310 K/uL (150-450); RED BLOOD CELL COUNT(AUTO) 3.19 MIL/uL (4.5-6.0); WHITE BLOOD COUNT (AUTO) 12.2 K/uL (4.3-11.0)
[2021-10-01 06:31] LABS: THYROID STIMULATING HORMONE 1.839 uIU/mL (0.358-3.74)
--- NOTE | 2021-10-01 07:06 | NUR ---
RN NOTE PT NOTED WITH ANOTHER VOMITING AROUND 6AM. HELD FEEDING AGAIN. PT AFEBRILE. PT FSBS 108. NO INSULIN GIVEN. PT CONTINUE ON RWRIST RESTRAINTS, PT MOVING R ARM TOO MUCH THAT ABLE TO DISCONNECT VENT TUBINGS, ON FREQUENT VISUAL CHECKS. NO RESP DISTRESS NOTED. WOUND TXS DONE ORDERED. HD CATH INTACT. WILL ENDORSE TO NEXT SHIFT NURSE FOR DENNIS.
[2021-10-01 08:00] VITALS: BP 122/89
[2021-10-01] MEDS: DOCUSATE SODIUM LIQ 100 MG/10 ML UDC GT SCH ×2 (09:12→21:45)
[2021-10-01] MEDS: METOCLOPRAMIDE HCL 10 MG TABLET GT SCH ×2 (09:12→16:54)
[2021-10-01] MEDS: MIDODRINE HCL (5MG) 5 MG TABLET GT SCH ×3 (09:13→16:55)
[2021-10-01] MEDS: CHLORHEXIDINE GLUCONATE 15 ML UDC MM SCH ×2 (09:13→21:45)
[2021-10-01] MEDS: ASCORBIC ACID 500 MG TABLET GT SCH (09:13)
[2021-10-01] MEDS: FERROUS SULFATE (325 MG) 325 MG/TAB TABLET GT SCH (09:13)
[2021-10-01] MEDS: PROSOURCE / PROSTAT (PYXIS) 30 ML UDC GT SCH ×3 (09:14→16:55)
[2021-10-01] MEDS: PANTOPRAZOLE 40 MG/PACK PACK GT SCH (09:14)
[2021-10-01] MEDS: VIT B CMPLX 3/FA/VIT C/BIOTIN 1 TAB TABLET PO SCH (09:15)
[2021-10-01] MEDS: MEROPENEM 500 MG in IV NS 0.9% 50 ML IV SCH (09:16)
[2021-10-01] MEDS: MULTIVITAMINS,THERAGRAN 1 UDTAB TABLET GT SCH (09:16)
[2021-10-01] MEDS: THERAHONEY GEL 1.5 OZ TUBE TP SCH ×2 (09:18)
[2021-10-01 12:00] VITALS: BP 124/89
[2021-10-01 16:00] VITALS: BP 118/81
[2021-10-01] MEDS: ACETAMINOPHEN 650 MG/20.3 ML UDC GT PRN (16:17)
[2021-10-01 20:00] VITALS: BP 110/68
[2021-10-02] VITALS: BP 120/71
[2021-10-02] MEDS: AMPICILLIN SODIUM 2 GM in IV NS 0.9% 100 ML IV SCH ×2 (00:17→12:37)
[2021-10-02] MEDS: INSULIN REGULAR, HUMAN 100 UNIT/ML 3 ML VIAL SQ PRN ×3 (01:03→23:33)
[2021-10-02 04:00] VITALS: BP 124/79
[2021-10-02] MEDS: SEVELAMER CARBONATE 800 MG POWD.PACK GT SCH ×3 (06:10→21:16)
[2021-10-02] MEDS: BLOOD SUGAR DIAGNOSTIC 1 EACH STRIP IN SCH ×5 (06:11→23:32)
[2021-10-02 06:23] LABS: BASOPHILS # (AUTO) 0.1 K/uL (0.0-0.2); EOSINOPHILS % (AUTO) 10.4 % (0.0-6.0); HEMATOCRIT 32 % (39-51); HEMOGLOBIN 9.9 g/dL (13.5-17.5); LYMPHOCYTES # (AUTO) 1.5 K/uL (0.8-4.8); LYMPHOCYTES % (AUTO) 13.4 % (20.0-44.0); MEAN CORPUSCULAR HGB CONC 31 g/dl (31.0-36.0); MEAN CORPUSCULAR VOLUME 101 fL (80-96); MONOCYTES # (AUTO) 1.5 K/uL (0.1-1.30); MONOCYTES % (AUTO) 13.4 % (2.0-12.0); NEUTROPHILS # (AUTO) 6.9 K/uL (1.8-8.9); NEUTROPHILS % (AUTO) 61.8 % (43.0-81.0); PLATELET COUNT (AUTO) 281 K/uL (150-450); RED BLOOD CELL COUNT(AUTO) 3.14 MIL/uL (4.5-6.0); WHITE BLOOD COUNT (AUTO) 11.2 K/uL (4.3-11.0)
--- NOTE | 2021-10-02 06:56 | NUR ---
RN notes Resting comfortably in bed with no distress noted. Breathing even and unlabored. Vent setting well tolerate. Level of consciousness, altered. Vital signs wnl. Wound care done. Suctioned moderate amount of thin yellowish secretion. Kept clean and dry. Will endorse to next shift for continuity of care.
--- NOTE | 2021-10-02 07:00 | NUR ---
RN NOTES RECEIVED PT ON BED, ON TRACH TO VENT, TOLERATING SETTINGS WELL. DOES NOT FOLLOW COMMAND, RESPONDS TO PAINFUL STIMULI, O2 SAT WNL, ON TELE, ST HR IN 110'S, G-TUBE PATENT AND INTACT WITH NEPRO @ 45ML/HR, NO RESIDUAL NOTED. DEBBIE PICC LINE IN PLACE, NO REDNESS OR SWELLING. RIGHT SUBCLAVIAN HD CATHETER NOTED, DRESSING DRY AND INTACT. BED LOCKED AND IN LOWEST POSITION. CALL LIGHT WITHIN REACH. WILL CONTINUE TO MONITOR.
[2021-10-02 07:02] LABS: CALCIUM, SERUM 9.4 mg/dL (8.5-10.1); CREATININE 6.1 mg/dL (0.6-1.3); MAGNESIUM 3.3 mg/dL (1.8-2.4); PHOSPHORUS 4.7 mg/dL (2.5-4.9); POTASSIUM 4.2 mmol/L (3.5-5.1)
[2021-10-02 08:00] VITALS: BP 120/78
[2021-10-02] MEDS: CHLORHEXIDINE GLUCONATE 15 ML UDC MM SCH ×2 (08:23→21:16)
[2021-10-02] MEDS: MEROPENEM 500 MG in IV NS 0.9% 50 ML IV SCH (08:23)
[2021-10-02] MEDS: VIT B CMPLX 3/FA/VIT C/BIOTIN 1 TAB TABLET PO SCH (08:23)
[2021-10-02] MEDS: FERROUS SULFATE (325 MG) 325 MG/TAB TABLET GT SCH (08:23)
[2021-10-02] MEDS: PANTOPRAZOLE 40 MG/PACK PACK GT SCH (08:23)
[2021-10-02] MEDS: ACETAMINOPHEN 650 MG/20.3 ML UDC GT PRN (08:23)
[2021-10-02] MEDS: DOCUSATE SODIUM LIQ 100 MG/10 ML UDC GT SCH ×2 (08:23→21:17)
[2021-10-02] MEDS: ASCORBIC ACID 500 MG TABLET GT SCH (08:23)
[2021-10-02] MEDS: MIDODRINE HCL (5MG) 5 MG TABLET GT SCH ×3 (08:24→16:31)
[2021-10-02] MEDS: MULTIVITAMINS,THERAGRAN 1 UDTAB TABLET GT SCH (08:24)
[2021-10-02] MEDS: METOCLOPRAMIDE HCL 10 MG TABLET GT SCH ×2 (08:24→16:32)
[2021-10-02] MEDS: THERAHONEY GEL 1.5 OZ TUBE TP SCH ×2 (08:25→08:26)
[2021-10-02] MEDS: PROSOURCE / PROSTAT (PYXIS) 30 ML UDC GT SCH ×3 (08:25→16:32)
[2021-10-02] MEDS: HYDROCODONE/APAP 5/325MG TABLET GT PRN (09:34)
[2021-10-02 12:00] VITALS: BP 121/68
[2021-10-02 16:00] VITALS: BP 116/79
--- NOTE | 2021-10-02 16:00 | NUR ---
RN NOTES NO VANCO IV PER PHARMACY AT THIS TIME, PHARMACY WILL FOLLOW UP .
[2021-10-02] MEDS: EPOETIN ALFA-EPBX 4,000 UNIT/ML VIAL SQ SCH (16:13)
--- NOTE | 2021-10-02 18:11 | NUR ---
RN NOTES NO SIGNFICANT CHANGES NOTED ON THIS SHIFT, TRACH CARE DONE , TOLERATING TF WELL, NO RESIDUAL NOTED, SR UP X3, CALL LIGHT WITHIN EASY REACH, BED LOCKED AND IN LOWEST POSITION, WILL ENDORSE TO PRESCHOOL LEAD TEACHER NURSE FOR CONTINUITY OF CARE .
[2021-10-02 20:00] VITALS: BP 120/78
[2021-10-03] VITALS: BP 123/82
[2021-10-03] MEDS: AMPICILLIN SODIUM 2 GM in IV NS 0.9% 100 ML IV SCH ×2 (01:33→12:12)
--- NOTE | 2021-10-03 03:46 | NUR ---
RN notes Altered level of consciousness, non-verbal. No distress noted. On vent, setting well tolerated well. No physical manifestation of pain or discomfort. Vital signs wnl. No significant change of condition. Right wrist restraint in place, remove every two hours for hygiene, comfort and repositioning. Kept clean and dry. Will endorse to next shift for continuity of care
[2021-10-03 04:00] VITALS: BP 115/76
[2021-10-03] MEDS: SEVELAMER CARBONATE 800 MG POWD.PACK GT SCH ×3 (05:20→21:43)
[2021-10-03] MEDS: BLOOD SUGAR DIAGNOSTIC 1 EACH STRIP IN SCH ×3 (06:00→17:43)
--- NOTE | 2021-10-03 07:17 | NUR ---
OXYGEN TITRATION DECREASED FIO2 FROM 40% TO 30% DUE TO 1Q00% SPO2 Addendum: 10/03/21 at 0718 by EDYTA CLEVELAND RT Amended: Links added.
[2021-10-03] MEDS: INSULIN REGULAR, HUMAN 100 UNIT/ML 3 ML VIAL SQ PRN (07:24)
--- NOTE | 2021-10-03 07:30 | NUR ---
RN OPENING NOTE RECEIVED PT ON BED, ON TRACH TO VENT, TOLERATING SETTINGS WELL. DOES NOT FOLLOW COMMAND, RESPONDS TO PAINFUL STIMULI, O2 SAT WNL, ON TELE, ST HR IN 110'S, G-TUBE PATENT AND INTACT WITH NEPRO @ 75ML/HR, NO RESIDUAL NOTED. ALEX MID LINE IN PLACE, NO REDNESS OR SWELLING. RIGHT FEMORAL HD CATHETER NOTED, DRESSING DRY AND INTACT. BED LOCKED AND IN LOWEST POSITION. CALL LIGHT WITHIN REACH. WILL CONTINUE TO MONITOR.
[2021-10-03 08:00] VITALS: BP 115/74
[2021-10-03 08:03] LABS: CALCIUM, SERUM 9.6 mg/dL (8.5-10.1); CREATININE 4.7 mg/dL (0.6-1.3); PHOSPHORUS 4.5 mg/dL (2.5-4.9); POTASSIUM 4.2 mmol/L (3.5-5.1)
[2021-10-03 08:05] LABS: BASOPHILS # (AUTO) 0.1 K/uL (0.0-0.2); BASOPHILS % (AUTO) 1.3 % (0.0-2.0); EOSINOPHILS % (AUTO) 11.1 % (0.0-6.0); HEMATOCRIT 31 % (39-51); HEMOGLOBIN 9.4 g/dL (13.5-17.5); LYMPHOCYTES # (AUTO) 1.3 K/uL (0.8-4.8); LYMPHOCYTES % (AUTO) 11.4 % (20.0-44.0); MEAN CORPUSCULAR HGB CONC 30 g/dl (31.0-36.0); MEAN CORPUSCULAR VOLUME 102 fL (80-96); MONOCYTES # (AUTO) 1.5 K/uL (0.1-1.30); NEUTROPHILS # (AUTO) 7.5 K/uL (1.8-8.9); NEUTROPHILS % (AUTO) 63.2 % (43.0-81.0); PLATELET COUNT (AUTO) 286 K/uL (150-450); RED BLOOD CELL COUNT(AUTO) 3.03 MIL/uL (4.5-6.0); WHITE BLOOD COUNT (AUTO) 11.8 K/uL (4.3-11.0)
[2021-10-03] MEDS: PANTOPRAZOLE 40 MG/PACK PACK GT SCH (08:19)
[2021-10-03] MEDS: CHLORHEXIDINE GLUCONATE 15 ML UDC MM SCH ×2 (08:20→21:43)
[2021-10-03] MEDS: VIT B CMPLX 3/FA/VIT C/BIOTIN 1 TAB TABLET PO SCH (08:20)
[2021-10-03] MEDS: DOCUSATE SODIUM LIQ 100 MG/10 ML UDC GT SCH ×2 (08:20→21:43)
[2021-10-03] MEDS: MIDODRINE HCL (5MG) 5 MG TABLET GT SCH ×3 (08:20→16:21)
[2021-10-03] MEDS: MULTIVITAMINS,THERAGRAN 1 UDTAB TABLET GT SCH (08:20)
[2021-10-03] MEDS: FERROUS SULFATE (325 MG) 325 MG/TAB TABLET GT SCH (08:20)
[2021-10-03] MEDS: ASCORBIC ACID 500 MG TABLET GT SCH (08:20)
[2021-10-03] MEDS: METOCLOPRAMIDE HCL 10 MG TABLET GT SCH ×2 (08:20→16:21)
[2021-10-03] MEDS: THERAHONEY GEL 1.5 OZ TUBE TP SCH ×2 (08:21)
[2021-10-03] MEDS: MEROPENEM 500 MG in IV NS 0.9% 50 ML IV SCH (08:27)
[2021-10-03] MEDS: PROSOURCE / PROSTAT (PYXIS) 30 ML UDC GT SCH ×3 (08:27→16:21)
[2021-10-03 12:00] VITALS: BP 122/78
[2021-10-03] MEDS: ACETAMINOPHEN 650 MG/20.3 ML UDC GT PRN (14:42)
[2021-10-03 16:00] VITALS: BP 117/74
--- NOTE | 2021-10-03 18:40 | NUR ---
RN CLOSING NOTE PT REMAINED STABLE THROUGHOUT SHIFT. PT RESTING ON BED, ON TRACH TO VENT, TOLERATING SETTINGS WELL. DOES NOT FOLLOW COMMAND, RESPONDS TO PAINFUL STIMULI, O2 SAT WNL, ON TELE, ST HR IN 110'S, G-TUBE PATENT AND INTACT WITH NEPRO @ 75ML/HR, NO RESIDUAL NOTED. ALEX MID LINE IN PLACE, NO REDNESS OR SWELLING. RIGHT FEMORAL HD CATHETER NOTED, DRESSING DRY AND INTACT. BED LOCKED AND IN LOWEST POSITION. CALL LIGHT WITHIN REACH. WILL ENDORSE TO SPORTS BROADCASTER RN.
--- NOTE | 2021-10-03 19:00 | NUR ---
RN NOTE RECEIVED PATIENT IN BED, OBTUNDED, IN NO ACUTE DISTRESS AT THIS TIME. ON TRACH TO MECHANICAL VENT WITH SETTINGS PRESCRIBED, SATURATION AT 100%, ST ON THE MONITOR, HR IS 108. NOTED ALEX MIDLINE, PATENT AND FLUSHING WELL, AND R FEMORAL HD CATH. NO S/S OF INFECTION. NOTED GTUBE INTACT POSITIVE PLACEMENT NOTED, NO RESIDUAL, WITH TUBE FEEDING OF NEPRO AT 75 ML/HR. SOFT RESTRAINT AND MITTEN IN PLACE AT R HAND/WRIST, SKIN AND CIRCULATION WAS CHECKED AND WITHIN DEFINED LIMITS. SAFETY MEASURES IMPLEMENTED. PATIENT BED ALARM IS ON. HEAD OF BED ELEVATED. BED IS LOCKED, IN LOWEST POSITION AND SIDE RAILS UP. CALL LIGHT WITHIN REACH OF THE PATIENT. WILL CONTINUE TO MONITOR AND REASSESS FOR ANY CHANGES.
[2021-10-03 22:00] VITALS: BP 129/84
[2021-10-04] VITALS: BP 117/86
[2021-10-04] MEDS: BLOOD SUGAR DIAGNOSTIC 1 EACH STRIP IN SCH ×4 (00:14→17:52)
[2021-10-04 04:00] VITALS: BP 133/87
[2021-10-04] MEDS: NEPRO 1,000 ML BOTTLE GT SCH (05:30)
[2021-10-04] MEDS: SEVELAMER CARBONATE 800 MG POWD.PACK GT SCH ×3 (05:30→20:35)
[2021-10-04 07:22] LABS: BASOPHILS # (AUTO) 0.1 K/uL (0.0-0.2); BASOPHILS % (AUTO) 0.8 % (0.0-2.0); EOSINOPHILS % (AUTO) 10.2 % (0.0-6.0); HEMATOCRIT 29 % (39-51); HEMOGLOBIN 9.2 g/dL (13.5-17.5); LYMPHOCYTES # (AUTO) 1.7 K/uL (0.8-4.8); LYMPHOCYTES % (AUTO) 14.1 % (20.0-44.0); MEAN CORPUSCULAR HGB CONC 32 g/dl (31.0-36.0); MEAN CORPUSCULAR VOLUME 100 fL (80-96); MONOCYTES # (AUTO) 1.7 K/uL (0.1-1.30); MONOCYTES % (AUTO) 13.9 % (2.0-12.0); NEUTROPHILS # (AUTO) 7.4 K/uL (1.8-8.9); PLATELET COUNT (AUTO) 277 K/uL (150-450); RED BLOOD CELL COUNT(AUTO) 2.91 MIL/uL (4.5-6.0); WHITE BLOOD COUNT (AUTO) 12.1 K/uL (4.3-11.0)
--- NOTE | 2021-10-04 07:38 | NUR ---
RN OPENING NOTES Patient seen comfortably lying in bed, breathing even and unlabored, no shortness of breath, no apparent distress noted, no grimacing. Call light left within reach, safety precautions in place, brakes locked, side rails up X 2, will monitor closely for any changes.
[2021-10-04 08:00] VITALS: BP 136/78
[2021-10-04] MEDS: CHLORHEXIDINE GLUCONATE 15 ML UDC MM SCH ×2 (08:55→20:35)
[2021-10-04 08:56] LABS: CALCIUM, SERUM 9.7 mg/dL (8.5-10.1); MAGNESIUM 3.4 mg/dL (1.8-2.4); PHOSPHORUS 4.6 mg/dL (2.5-4.9); POTASSIUM 4.1 mmol/L (3.5-5.1)
[2021-10-04] MEDS: PANTOPRAZOLE 40 MG/PACK PACK GT SCH (08:56)
[2021-10-04] MEDS: FERROUS SULFATE (325 MG) 325 MG/TAB TABLET GT SCH (08:56)
[2021-10-04] MEDS: MULTIVITAMINS,THERAGRAN 1 UDTAB TABLET GT SCH (08:56)
[2021-10-04] MEDS: ASCORBIC ACID 500 MG TABLET GT SCH (08:56)
[2021-10-04] MEDS: METOCLOPRAMIDE HCL 10 MG TABLET GT SCH ×2 (08:56→16:57)
[2021-10-04] MEDS: MIDODRINE HCL (5MG) 5 MG TABLET GT SCH ×3 (08:56→16:58)
[2021-10-04] MEDS: MEROPENEM 500 MG in IV NS 0.9% 50 ML IV SCH (08:56)
[2021-10-04] MEDS: DOCUSATE SODIUM LIQ 100 MG/10 ML UDC GT SCH ×2 (08:56→20:35)
[2021-10-04] MEDS: VIT B CMPLX 3/FA/VIT C/BIOTIN 1 TAB TABLET PO SCH (08:56)
[2021-10-04] MEDS: PROSOURCE / PROSTAT (PYXIS) 30 ML UDC GT SCH ×3 (08:57→16:58)
[2021-10-04 12:00] VITALS: BP 131/87
[2021-10-04] MEDS: THERAHONEY GEL 1.5 OZ TUBE TP SCH ×2 (12:59)
[2021-10-04] MEDS: VANCOMYCIN 500 MG in IV D5W 100 ML IV PRN (14:27)
[2021-10-04 16:00] VITALS: BP 121/81
[2021-10-04] MEDS ORDERED: SULFAMETH/TRIMETH 800/160 MG 1 UDTAB TABLET PO ONE (17:00)
--- NOTE | 2021-10-04 17:30 | NUR ---
Patient has an order for permacath placement, consentS for the procedure obtained from Josue (son) verbalized understanding of the procedure, another Rn witnessed and verified consents. Son verbalized understanding and gratitude. Consents signed by 2 RNs and are filed in patients chart.
--- NOTE | 2021-10-04 19:40 | NUR ---
RN OPENING NOTES, RECEIVED PT IN BED, OBTUNDED, RESPONSIVE TO PAINFUL STIMULI. ON TRACH TO VENT SETTINGS, TOLERATED WELL. IV ACCESS ON ALEX MIDLINE AND RT FEMORAL HD CATH INTACT AND PATENT. NO BLEEDING NOTED. NO FACIAL GRIMACING NOTED. NO ACUTE DISTRESS. G-TUBE FEEDING WITH NEPRO @ 75ML/HR. NO RESIDUAL NOTED. ALL SAFETY MEASURES IN PLACE. BED IN LOWEST POSITION AND LOCKED. SIDE RAILS UP X2, PLACE CALL LIGHT WITHIN REACH. WILL CONTINUE TO MONITOR.
--- NOTE | 2021-10-04 19:53 | NUR ---
RN CLOSING NOTES Patient lying in bed, respirations even and unlabored, no shortness of breath, no grimacing, no apparent distress noted, remained afebrile, no s/s of fluid overload. Gastric tube remained patent, intact and in place during shift, placement verified by auscultation and aspiration of gastric residuals. All due medications given via gtube per MD order, tolerating well. Patient on gastric tube feeding (Nepro at 75ml/hr), tolerating well, no nausea, no vomiting, no episode of loose stool, abdominal bowel sound present in all quadrants, no grimacing when abdomen palpated. No s/s of hypo or hyperglycemia, no tremors, no change in level of consciousness.Patient has orders for IV antibiotics, IV midline on right upper arm patent, intact, flushing well, covered with dry dressings, no swelling, no redness, no c/o pain or discomfort at site. Wound care rendered as per MD order. Patient's dialysis catheter on right femoral covered with dry dressings, no unusual odor, no drainage at this time. All needs anticipated, kept clean and dry, aspiration precautions observed at all times, kept head of bed elevated, safety precautions in place, frequent visual checks rendered, frequent turning and repositioning done, side rails up X 2, brakes locked, call light left within reach, will endorse to next shift for continuity of care.
[2021-10-04 20:00] VITALS: BP 142/92
[2021-10-04] MEDS: ACETAMINOPHEN 650 MG/20.3 ML UDC GT PRN (21:23)
--- NOTE | 2021-10-04 21:25 | NUR ---
RN NOTES: PT HAS INCREASED TEMP 102.2. TYLENOL 650 MG/20.3 GIVEN PRN ORDERED. PT TOLERATED WELL. WILL CONTINUE TO MONITOR
[2021-10-05] VITALS: BP 134/82
[2021-10-05] MEDS: BLOOD SUGAR DIAGNOSTIC 1 EACH STRIP IN SCH ×4 (00:52→18:14)
--- NOTE | 2021-10-05 01:04 | NUR ---
RN NOTES: BLOOD SUGAR 103. NO COVERAGE NEEDED. NO S/S OF HYPER/HYPOGLYCEMIA. WILL CONTINUE TO MONITOR
[2021-10-05 04:00] VITALS: BP 133/86
[2021-10-05] MEDS: SEVELAMER CARBONATE 800 MG POWD.PACK GT SCH ×3 (04:25→21:28)
[2021-10-05 06:03] LABS: BASOPHILS # (AUTO) 0.1 K/uL (0.0-0.2); BASOPHILS % (AUTO) 0.6 % (0.0-2.0); EOSINOPHILS % (AUTO) 7.4 % (0.0-6.0); HEMATOCRIT 33 % (39-51); HEMOGLOBIN 10.5 g/dL (13.5-17.5); LYMPHOCYTES # (AUTO) 1.5 K/uL (0.8-4.8); LYMPHOCYTES % (AUTO) 11.6 % (20.0-44.0); MEAN CORPUSCULAR HGB CONC 31 g/dl (31.0-36.0); MEAN CORPUSCULAR VOLUME 99 fL (80-96); MONOCYTES # (AUTO) 1.9 K/uL (0.1-1.30); MONOCYTES % (AUTO) 14.5 % (2.0-12.0); NEUTROPHILS # (AUTO) 8.5 K/uL (1.8-8.9); NEUTROPHILS % (AUTO) 65.9 % (43.0-81.0); PLATELET COUNT (AUTO) 260 K/uL (150-450); RED BLOOD CELL COUNT(AUTO) 3.38 MIL/uL (4.5-6.0); WHITE BLOOD COUNT (AUTO) 12.9 K/uL (4.3-11.0)
--- NOTE | 2021-10-05 06:35 | NUR ---
RN CLOSING NOTES, RECEIVED PT IN BED, OBTUNDED, RESPONSIVE TO PAINFUL STIMULI. ON TRACH TO VENT SETTINGS, TOLERATED WELL. O2 SAT 99% IV ACCESS ON ALEX MIDLINE AND RT FEMORAL HD CATH INTACT AND PATENT. NO BLEEDING NOTED. NO FACIAL GRIMACING NOTED. NO ACUTE DISTRESS. G-TUBE FEEDING WITH NEPRO @ 75ML/HR. NO RESIDUAL NOTED. ALL DUE MEDS GIVEN ORDERED. ALL SAFETY MEASURES IN PLACE. BED IN LOWEST POSITION AND LOCKED. SIDE RAILS UP X2, PLACE CALL LIGHT WITHIN REACH. ENDORSE TO MORNING SHIFT NURSE.
[2021-10-05 06:39] LABS: CALCIUM, SERUM 10.4 mg/dL (8.5-10.1); CREATININE 7.2 mg/dL (0.6-1.3); MAGNESIUM 3.6 mg/dL (1.8-2.4); PHOSPHORUS 4.8 mg/dL (2.5-4.9); POTASSIUM 4.4 mmol/L (3.5-5.1)
[2021-10-05] MEDS: PANTOPRAZOLE 40 MG/PACK PACK GT SCH (07:30)
--- NOTE | 2021-10-05 07:30 | NUR ---
JAIL MANAGER NOTES: RECEIVED PT ON BED,ASLEEP COMFORTABLE, ON TRACH TO VENT, TOLERATING SETTINGS WELL. DOES NOT FOLLOW COMMAND, RESPONDS TO PAINFUL STIMULI, O2 SAT WNL, ON TELE, ST. GTF ON HOLD, PATIENT IS NPO FOR PERMACATH INSERTION PROCEDURE,. BED LOCKED AND IN LOWEST POSITION. CALL LIGHT WITHIN REACH. WILL CONTINUE TO MONITOR.
[2021-10-05 08:00] VITALS: BP 123/89
--- NOTE | 2021-10-05 09:10 | NUR ---
ROVING SIZER NOTES: SEEN BY CORINNE DACOSTA WITH ORDER TO RESUME FEEDING AND MEDICATION, PROCEDURE FOR PERMACATH INSERTION CANCELLED
[2021-10-05] MEDS: THERAHONEY GEL 1.5 OZ TUBE TP SCH ×2 (09:12→09:13)
[2021-10-05] MEDS: MULTIVITAMINS,THERAGRAN 1 UDTAB TABLET GT SCH (09:21)
[2021-10-05] MEDS: CHLORHEXIDINE GLUCONATE 15 ML UDC MM SCH ×2 (09:21→21:28)
[2021-10-05] MEDS: DOCUSATE SODIUM LIQ 100 MG/10 ML UDC GT SCH ×2 (09:21→21:27)
[2021-10-05] MEDS: ASCORBIC ACID 500 MG TABLET GT SCH (09:21)
[2021-10-05] MEDS: FERROUS SULFATE (325 MG) 325 MG/TAB TABLET GT SCH (09:21)
[2021-10-05] MEDS: SULFAMETH/TRIMETH 800/160 MG 1 UDTAB TABLET PO SCH ×2 (09:22→21:00)
[2021-10-05] MEDS: MIDODRINE HCL (5MG) 5 MG TABLET GT SCH ×3 (09:22→17:40)
[2021-10-05] MEDS: VIT B CMPLX 3/FA/VIT C/BIOTIN 1 TAB TABLET PO SCH (09:22)
[2021-10-05] MEDS: METOCLOPRAMIDE HCL 10 MG TABLET GT SCH ×2 (09:23→17:40)
[2021-10-05] MEDS: PROSOURCE / PROSTAT (PYXIS) 30 ML UDC GT SCH ×3 (09:24→17:39)
--- NOTE | 2021-10-05 09:24 | NUR ---
PIANO PROFESSOR NOTES: IV MEROPENEM NOT GIVEN NO iv LINE, MIDLINE ORDERED, AWAITING MIDLINE INSERTION
[2021-10-05] MEDS: NEPRO 1,000 ML BOTTLE GT SCH (10:13)
--- NOTE | 2021-10-05 11:30 | NUR ---
VEHICLE TECHNICIAN NOTES: MIDLINE INSERTED TO RIGHT UPPER ARM, IV ATB GIVEN, RESUMED GT FEEDING,PATIENT ASLEEP COMFORTABLE
[2021-10-05 12:00] VITALS: BP 132/90
[2021-10-05] MEDS: MEROPENEM 500 MG in IV NS 0.9% 50 ML IV SCH (12:48)
[2021-10-05] MEDS: EPOETIN ALFA-EPBX 4,000 UNIT/ML VIAL SQ SCH (14:34)
[2021-10-05 16:00] VITALS: BP 122/81
--- NOTE | 2021-10-05 18:45 | NUR ---
SURVEYING TECHNICIAN NOTES: FOREST EXAMINER REPORTED PATIENT COMPLETED HD, 2 LITERS FLUID OUT,NO BLEEDING ,NO PAIN OR DISCOMFORT,ASSISTED PLANNING INTERN,CLEANED AND REPOSITIONED PATIENT
--- NOTE | 2021-10-05 19:50 | NUR ---
ROAD CONDUCTOR CLOSING NOTES: RECEIVED PT IN BED, OBTUNDED, RESPONSIVE TO PAINFUL STIMULI. ON TRACH TO VENT SETTINGS, TOLERATED WELL. ALEX MIDLINE INSERTED WELL TOLERATED.AND RT FEMORAL HD CATH INTACT AND PATENT. NO BLEEDING NOTED. NO FACIAL GRIMACING NOTED. NO ACUTE DISTRESS. G-TUBE FEEDING WITH NEPRO @ 75ML/HR. NO RESIDUAL NOTED. ALL DUE MEDS GIVEN ORDERED. ALL SAFETY MEASURES IN PLACE. BED IN LOWEST POSITION AND LOCKED. SIDE RAILS UP X2, PLACE CALL LIGHT WITHIN REACH. ENDORSE TO MORNING SHIFT NURSE
[2021-10-05 20:00] VITALS: BP 116/86
[2021-10-05] MEDS: LORAZEPAM 1 MG TABLET GT PRN (21:28)
[2021-10-06] VITALS: BP 112/56
[2021-10-06] MEDS: HYDROCODONE/APAP 5/325MG TABLET GT PRN (00:13)
[2021-10-06] MEDS: INSULIN REGULAR, HUMAN 100 UNIT/ML 3 ML VIAL SQ PRN ×3 (01:47→23:51)
[2021-10-06 04:00] VITALS: BP 117/90
[2021-10-06] MEDS: SEVELAMER CARBONATE 800 MG POWD.PACK GT SCH ×3 (05:18→20:53)
[2021-10-06] MEDS: BLOOD SUGAR DIAGNOSTIC 1 EACH STRIP IN SCH ×5 (05:23→23:51)
[2021-10-06 06:31] LABS: BASOPHILS # (AUTO) 0.1 K/uL (0.0-0.2); BASOPHILS % (AUTO) 0.9 % (0.0-2.0); EOSINOPHILS % (AUTO) 9.7 % (0.0-6.0); HEMATOCRIT 30 % (39-51); HEMOGLOBIN 9.5 g/dL (13.5-17.5); LYMPHOCYTES # (AUTO) 1.5 K/uL (0.8-4.8); LYMPHOCYTES % (AUTO) 11.4 % (20.0-44.0); MEAN CORPUSCULAR HGB CONC 32 g/dl (31.0-36.0); MEAN CORPUSCULAR VOLUME 100 fL (80-96); MONOCYTES # (AUTO) 1.9 K/uL (0.1-1.30); MONOCYTES % (AUTO) 14.3 % (2.0-12.0); NEUTROPHILS # (AUTO) 8.4 K/uL (1.8-8.9); NEUTROPHILS % (AUTO) 63.7 % (43.0-81.0); PLATELET COUNT (AUTO) 238 K/uL (150-450); RED BLOOD CELL COUNT(AUTO) 3.01 MIL/uL (4.5-6.0); WHITE BLOOD COUNT (AUTO) 13.2 K/uL (4.3-11.0)
--- NOTE | 2021-10-06 06:47 | NUR ---
NO INSULIN ADMINISTERED PER SLIDING FOR ACCUCHECK AT 0000 AND 0600, BLOOD SUGAR AT 0000 110 MG/DL AND 0600 88 MG/DL.
--- NOTE | 2021-10-06 06:49 | NUR ---
PATIENT SVCS MGR CLOSING NOTES. RECEIVED PT IN BED, OBTUNDED, ON MECHANICAL VENTILATOR TOLERATED SETTINGS WELL, SINUS TACHY IN TELE MONITOR MOSTLY DURING THE NIGHT, ALEX MIDLINE IN PLACE, PATENT AND INTACT, RT FEMORAL HD CATH INTACT, NO BLEEDING NOTED, X1 ATIVAN AND NORCO ADMINISTERED LAST NIGHT FOR AGITATION/RESTLESSNESS, AND PAIN, G-TUBE IN PLACE, INFUSING NEPRO @ 75ML/HR. NO RESIDUAL NOTED, ALL DUE MEDS GIVEN ORDERED, WOUND TX DONE, BED LOCKED AND IN LOWEST POSITION, SIDE RAILS 1/2 UP, WILL ENDORSE CONTINUITY OF CARE TO ONCOMING NURSE.
[2021-10-06 07:12] LABS: ALBUMIN 2.5 g/dL (3.4-5.0); BILIRUBIN,DIRECT 0.2 mg/dL (0.0-0.2); BILIRUBIN,TOTAL 0.5 mg/dL (0.2-1.0); CALCIUM, SERUM 9.9 mg/dL (8.5-10.1); CREATININE 5.6 mg/dL (0.6-1.3); MAGNESIUM 3.2 mg/dL (1.8-2.4); PHOSPHORUS 5.1 mg/dL (2.5-4.9); POTASSIUM 4.6 mmol/L (3.5-5.1)
[2021-10-06 08:00] VITALS: BP_SYST 117; BP_SYST 96; BP_DIAS 81; BP_DIAS 90
[2021-10-06] MEDS: DOCUSATE SODIUM LIQ 100 MG/10 ML UDC GT SCH ×2 (08:58→20:53)
[2021-10-06] MEDS: MEROPENEM 500 MG in IV NS 0.9% 50 ML IV SCH (08:58)
[2021-10-06] MEDS: VIT B CMPLX 3/FA/VIT C/BIOTIN 1 TAB TABLET PO SCH (08:58)
[2021-10-06] MEDS: CHLORHEXIDINE GLUCONATE 15 ML UDC MM SCH ×2 (08:58→20:54)
[2021-10-06] MEDS: SULFAMETH/TRIMETH 800/160 MG 1 UDTAB TABLET PO SCH ×2 (08:58→20:54)
[2021-10-06] MEDS: MIDODRINE HCL (5MG) 5 MG TABLET GT SCH ×3 (09:00→17:20)
[2021-10-06] MEDS: FERROUS SULFATE (325 MG) 325 MG/TAB TABLET GT SCH (09:01)
[2021-10-06] MEDS: MULTIVITAMINS,THERAGRAN 1 UDTAB TABLET GT SCH (09:01)
[2021-10-06] MEDS: METOCLOPRAMIDE HCL 10 MG TABLET GT SCH ×2 (09:01→17:20)
[2021-10-06] MEDS: ASCORBIC ACID 500 MG TABLET GT SCH (09:01)
[2021-10-06] MEDS: PANTOPRAZOLE 40 MG/PACK PACK GT SCH (09:02)
[2021-10-06] MEDS: PROSOURCE / PROSTAT (PYXIS) 30 ML UDC GT SCH ×3 (09:03→17:21)
[2021-10-06] MEDS: THERAHONEY GEL 1.5 OZ TUBE TP SCH ×2 (09:04)
[2021-10-06 12:00] VITALS: BP 139/79
[2021-10-06 16:00] VITALS: BP 143/93
--- NOTE | 2021-10-06 19:30 | NUR ---
RN NOTES, RECEIVED PATENT IN BED, ASLEEP AT THIS TIME, ON MECHANICAL VENTILATOR, NO SOB/ACUTE DISTRESS NOTED, SINUS TACHY IN TELE MONITOR WITH HR 115 AT THIS TIME, GT IN PLACE, GT FEEDING INFUSING WELL, NO RESIDUAL NOTED, WITH RIGHT SOFT RESTRAIN IN RIGHT HAND, BED LOCKED AND IN LOWEST POSITION, BILATERAL 1/2 S/R OF BED UP, WILL CONTINUE TO MONITOR CLOSELY.
[2021-10-06 20:00] VITALS: BP 120/91
[2021-10-06] MEDS: ACETAMINOPHEN 650 MG/20.3 ML UDC GT PRN (23:58)
[2021-10-07] VITALS: BP 112/68
--- NOTE | 2021-10-07 | NUR ---
BLOOD SUGAR 103MG/DL, NO INSULIN ADMINISTERED PER SLIDING
[2021-10-07 04:00] VITALS: BP 125/88
[2021-10-07] MEDS: SEVELAMER CARBONATE 800 MG POWD.PACK GT SCH ×3 (05:25→20:32)
[2021-10-07] MEDS: BLOOD SUGAR DIAGNOSTIC 1 EACH STRIP IN SCH ×4 (05:28→23:53)
[2021-10-07] MEDS: INSULIN REGULAR, HUMAN 100 UNIT/ML 3 ML VIAL SQ PRN ×3 (05:29→17:02)
--- NOTE | 2021-10-07 05:40 | NUR ---
BLOOD SUGAR 105MG/DL, NO INSULIN ADMINISTERED PER SLIDING.
[2021-10-07 06:21] LABS: BASOPHILS # (AUTO) 0.2 K/uL (0.0-0.2); EOSINOPHILS % (AUTO) 7.6 % (0.0-6.0); HEMATOCRIT 31 % (39-51); HEMOGLOBIN 9.8 g/dL (13.5-17.5); LYMPHOCYTES # (AUTO) 1.8 K/uL (0.8-4.8); MEAN CORPUSCULAR HGB CONC 32 g/dl (31.0-36.0); MEAN CORPUSCULAR VOLUME 99 fL (80-96); MONOCYTES # (AUTO) 2.4 K/uL (0.1-1.30); MONOCYTES % (AUTO) 14.5 % (2.0-12.0); NEUTROPHILS # (AUTO) 11.1 K/uL (1.8-8.9); NEUTROPHILS % (AUTO) 65.9 % (43.0-81.0); PLATELET COUNT (AUTO) 255 K/uL (150-450); RED BLOOD CELL COUNT(AUTO) 3.09 MIL/uL (4.5-6.0); WHITE BLOOD COUNT (AUTO) 16.8 K/uL (4.3-11.0)
[2021-10-07 06:27] LABS: CALCIUM, SERUM 10.2 mg/dL (8.5-10.1); CREATININE 6.9 mg/dL (0.6-1.3); MAGNESIUM 3.6 mg/dL (1.8-2.4); PHOSPHORUS 5.6 mg/dL (2.5-4.9); POTASSIUM 4.1 mmol/L (3.5-5.1)
--- NOTE | 2021-10-07 06:45 | NUR ---
ROCK SINGER CLOSING NOTES. PATIENT IN BED ASLEEP, AROUSES TO TACTILE STIMULI, ON MECHANICAL VENTILATOR TOLERATED SETTINGS WELL, SINUS TACHY IN TELE MONITOR MOSTLY DURING THE NIGHT, ALEX MIDLINE IN PLACE, PATENT AND INTACT, RT FEMORAL HD CATH INTACT, NO BLEEDING NOTED, FEBRILE LAST NIGHT, WOUND TX DONE ORDERED, OFFLOADING/REPOSITIONING Q2HRS AND PRN PROVIDED, BED LOCKED AND IN LOWEST POSITION, SIDE RAILS 1/2 UP, WILL ENDORSE CONTINUITY OF CARE TO ONCOMING NURSE.
--- NOTE | 2021-10-07 07:31 | NUR ---
RN OPENING NOTES. PATIENT IN BED ASLEEP, AROUSES TO TACTILE STIMULI, ON MECHANICAL VENTILATOR. NO S/S OF RESP DISTRESS AT THIS TIME. ALEX MIDLINE IN PLACE, PATENT AND INTACT, RT FEMORAL HD CATH INTACT, NO BLEEDING NOTED, ALL SAFETY MEASURES IN PLACE, BED IN LOWEST LOCKED POSITION, SR UP X3. WILL CONTINUE TO MONITOR THROUGHOUT SHIFT.
[2021-10-07] MEDS: PANTOPRAZOLE 40 MG/PACK PACK GT SCH (07:54)
[2021-10-07 08:00] VITALS: BP 121/82
[2021-10-07] MEDS: DOCUSATE SODIUM LIQ 100 MG/10 ML UDC GT SCH ×2 (08:37→20:32)
[2021-10-07] MEDS: CHLORHEXIDINE GLUCONATE 15 ML UDC MM SCH ×2 (08:37→20:32)
[2021-10-07] MEDS: METOCLOPRAMIDE HCL 10 MG TABLET GT SCH ×2 (08:38→16:28)
[2021-10-07] MEDS: FERROUS SULFATE (325 MG) 325 MG/TAB TABLET GT SCH (08:38)
[2021-10-07] MEDS: VIT B CMPLX 3/FA/VIT C/BIOTIN 1 TAB TABLET PO SCH (08:38)
[2021-10-07] MEDS: MULTIVITAMINS,THERAGRAN 1 UDTAB TABLET GT SCH (08:38)
[2021-10-07] MEDS: ASCORBIC ACID 500 MG TABLET GT SCH (08:38)
[2021-10-07] MEDS: MIDODRINE HCL (5MG) 5 MG TABLET GT SCH ×3 (08:38→16:28)
[2021-10-07] MEDS: THERAHONEY GEL 1.5 OZ TUBE TP SCH ×2 (08:39→08:40)
[2021-10-07] MEDS: PROSOURCE / PROSTAT (PYXIS) 30 ML UDC GT SCH ×3 (08:40→16:28)
[2021-10-07] MEDS: SULFAMETH/TRIMETH 800/160 MG 1 UDTAB TABLET PO SCH ×2 (08:43→20:32)
[2021-10-07] MEDS: MEROPENEM 500 MG in IV NS 0.9% 50 ML IV SCH (08:44)
[2021-10-07] MEDS: ALBUMIN 25% 25 GM in PREMIX 1 EA IV PRN (11:06)
[2021-10-07 12:00] VITALS: BP 116/84
[2021-10-07] MEDS ORDERED: VANCOMYCIN 1 GM in IV D5W 250ml IV ONE (14:30)
[2021-10-07] MEDS: EPOETIN ALFA-EPBX 4,000 UNIT/ML VIAL SQ SCH (15:44)
[2021-10-07 16:00] VITALS: BP 115/76
--- NOTE | 2021-10-07 18:36 | NUR ---
RN CLOSING NOTES. RECEIVED PT IN BED, OBTUNDED, ON MECHANICAL VENTILATOR TOLERATED SETTINGS WELL, SINUS TACHY 112-127. ALEX MIDLINE IN PLACE, PATENT AND INTACT, RT FEMORAL HD CATH INTACT, NO BLEEDING NOTED, G-TUBE IN PLACE, INFUSING NEPRO @ 75ML/HR. NO RESIDUAL NOTED, ALL DUE MEDS GIVEN ORDERED, BED LOCKED AND IN LOWEST POSITION, SIDE RAILS X3 UP, WILL ENDORSE CONTINUITY OF CARE TO ONCOMING WHARF TENDER HEAD NURSE.
[2021-10-07 20:00] VITALS: BP 129/88
[2021-10-07] MEDS: ACETAMINOPHEN 650 MG/20.3 ML UDC GT PRN (20:34)
[2021-10-08] VITALS: BP 120/79
[2021-10-08 04:00] VITALS: BP 112/78
[2021-10-08] MEDS: NEPRO 1,000 ML BOTTLE GT SCH (04:42)
[2021-10-08] MEDS: SEVELAMER CARBONATE 800 MG POWD.PACK GT SCH ×3 (04:43→22:24)
[2021-10-08] MEDS ORDERED: VANCOMYCIN 500 MG in IV D5W 100 ML IV PRN (06:00)
[2021-10-08] MEDS: BLOOD SUGAR DIAGNOSTIC 1 EACH STRIP IN SCH ×3 (06:15→17:51)
--- NOTE | 2021-10-08 06:46 | NUR ---
RN CLOSING NOTE PATIENT RESTING ION BED. CONTACT ISOLATION MAINTAINED. OBTUNDED. ON MECHANICAL VENT. TRACH CARE DONE. NO RESPIRATORY DISTRESS. NO S/S PAIN NOTED. SINUS TACHYCARDIA ON MONITOR. BM THIS SHIFT. WOUND DRESSINGS CHANGED. FEMORAL HD CATH DRESSING CHANGED. ALEX MIDLINE IS NOW NOT PATENT, UNABLE TO GET BLOOD RETURN FOR THIS AM LABS. RIGHT WRIST MITTEN AND SOFT RESTRAINT MAINTAINED. PATIENT TRIES TO REMOVE LINES AND TELE MONITOR. GTUBE NO RESIDUAL, RUNNING NEPRO@75ML. PRN TYLENOL GIVEN FOR TEMP 99.1. NOW AFEBRILE. SAFETY MEASURES IN PLACE. PENDING PERMA CATH PLACEMENT WHEN AFEBRILE.
--- NOTE | 2021-10-08 07:30 | NUR ---
RN OPENING NOTE PT OBSERVED IN BED WITH HOB 30 DEGREES. PT IS ON MECHANICAL VENT WITH ALL PRESCRIBED SETTINGS TOLERATING WELL WITH NO SIGNS OF DISTRESS OR LABORED BREATHING. PT IS A/OX1 NON VERBAL, OBTUNDED, WITH A RIGHT HAND SOFT WRIST RESTRAINT AND MITTEN. PT IS TELE MONITORED ST 110BPM. PT IS ANURIC AND NO HD SCHEDULED FOR TODAY. GTUBE IS IN PLACE WITH POSITIVE PLACEMENT INFUSING WITH NEPRO @75ML/HR. PT IV ACCESS R UA MIDLINE AND R FEMORAL HD CATH. BED IS LOCKED IN LOWEST POSITION X3 BED RAILS UP AND ALL HOSPITAL SAFETY MEASURES ARE IN PLACE. WILL CONTINUE TO MONITOR THIS SHIFT.
[2021-10-08 07:42] LABS: BASOPHILS # (AUTO) 0.1 K/uL (0.0-0.2); BASOPHILS % (AUTO) 0.8 % (0.0-2.0); EOSINOPHILS % (AUTO) 9.2 % (0.0-6.0); HEMATOCRIT 31 % (39-51); HEMOGLOBIN 10.1 g/dL (13.5-17.5); LYMPHOCYTES # (AUTO) 1.2 K/uL (0.8-4.8); LYMPHOCYTES % (AUTO) 9.3 % (20.0-44.0); MEAN CORPUSCULAR HGB CONC 32 g/dl (31.0-36.0); MEAN CORPUSCULAR VOLUME 99 fL (80-96); MONOCYTES # (AUTO) 1.9 K/uL (0.1-1.30); MONOCYTES % (AUTO) 14.9 % (2.0-12.0); NEUTROPHILS # (AUTO) 8.5 K/uL (1.8-8.9); NEUTROPHILS % (AUTO) 65.8 % (43.0-81.0); PLATELET COUNT (AUTO) 229 K/uL (150-450); RED BLOOD CELL COUNT(AUTO) 3.18 MIL/uL (4.5-6.0)
[2021-10-08 07:47] LABS: CALCIUM, SERUM 9.8 mg/dL (8.5-10.1); CREATININE 5.2 mg/dL (0.6-1.3); MAGNESIUM 3.1 mg/dL (1.8-2.4); POTASSIUM 4.3 mmol/L (3.5-5.1)
[2021-10-08 08:00] VITALS: BP 125/84
[2021-10-08] MEDS: MEROPENEM 500 MG in IV NS 0.9% 50 ML IV SCH (09:53)
[2021-10-08] MEDS: CHLORHEXIDINE GLUCONATE 15 ML UDC MM SCH ×2 (09:56→22:24)
[2021-10-08] MEDS: MIDODRINE HCL (5MG) 5 MG TABLET GT SCH ×3 (09:56→16:30)
[2021-10-08] MEDS: DOCUSATE SODIUM LIQ 100 MG/10 ML UDC GT SCH ×2 (09:56→22:24)
[2021-10-08] MEDS: FERROUS SULFATE (325 MG) 325 MG/TAB TABLET GT SCH (09:56)
[2021-10-08] MEDS: VIT B CMPLX 3/FA/VIT C/BIOTIN 1 TAB TABLET PO SCH (09:56)
[2021-10-08] MEDS: MULTIVITAMINS,THERAGRAN 1 UDTAB TABLET GT SCH (09:56)
[2021-10-08] MEDS: ASCORBIC ACID 500 MG TABLET GT SCH (09:57)
[2021-10-08] MEDS: METOCLOPRAMIDE HCL 10 MG TABLET GT SCH ×2 (09:57→16:30)
[2021-10-08] MEDS: THERAHONEY GEL 1.5 OZ TUBE TP SCH ×2 (09:59→10:00)
[2021-10-08] MEDS: PROSOURCE / PROSTAT (PYXIS) 30 ML UDC GT SCH ×3 (09:59→16:30)
[2021-10-08] MEDS: PANTOPRAZOLE 40 MG/PACK PACK GT SCH (09:59)
[2021-10-08] MEDS: SULFAMETH/TRIMETH 800/160 MG 1 UDTAB TABLET PO SCH ×2 (10:02→22:24)
[2021-10-08 12:00] VITALS: BP 130/89
--- NOTE | 2021-10-08 12:30 | NUR ---
RN NOTE PT BS 113. PER SLIDING SCALE, NO COVERAGE NEEDED AT THIS TIME.
[2021-10-08] MEDS: INSULIN REGULAR, HUMAN 100 UNIT/ML 3 ML VIAL SQ PRN ×2 (13:23→17:51)
[2021-10-08 16:00] VITALS: BP 129/74
--- NOTE | 2021-10-08 17:52 | NUR ---
RN NOTE PT BS 109. PER SLIDING SCALE, NO COVERAGE NEEDED AT THIS TIME.
--- NOTE | 2021-10-08 19:46 | NUR ---
RN CLOSING NOTE PT IS IN BED WITH HOB 30 DEGREES. PT IS ON MECHANICAL VENT WITH ALL PRESCRIBED SETTINGS TOLERATING WELL WITH NO SIGNS OF DISTRESS OR LABORED BREATHING. PT IS A/OX1 NON VERBAL, OBTUNDED, WITH A RIGHT HAND SOFT WRIST RESTRAINT AND MITTEN. PT IS TELE MONITORED ST 110BPM. PT IS ANURIC AND NO HD SCHEDULED FOR TODAY. GTUBE IS IN PLACE WITH POSITIVE PLACEMENT INFUSING WITH NEPRO @75ML/HR. PT IV ACCESS R UA MIDLINE AND R FEMORAL HD CATH. ENDORSED TO LOG HAULER NURSE TO F/U WITH DAY SHIFT NURSE ON 10/09 TO REQUEST MIDLINE INSERTION. CURRENT MIDLINE OBSTRUCTED. BED IS LOCKED IN LOWEST POSITION X3 BED RAILS UP AND ALL HOSPITAL SAFETY MEASURES ARE IN PLACE. WILL ENDORSE TO LOG HAULER NURSE FOR DENNIS.
[2021-10-08 20:00] VITALS: BP 121/77
--- NOTE | 2021-10-08 20:40 | NUR ---
RN NOTES PATIENT NOTED WITH TEMPERATURE 100.0 FAHRENHEIT, BODY COOLING MEASURE PROVIDED, ACETAMINOPHEN 650MG GIVEN PER MD'S ORDERED.
[2021-10-08] MEDS: ACETAMINOPHEN 650 MG/20.3 ML UDC GT PRN (20:42)
--- NOTE | 2021-10-08 21:10 | NUR ---
RN NOTES TEMPERATURE RECHECKED AND OBTAINED 99.0 FAHRENHEIT. CONTINUE TO DO COOLING MEASURE. CONTINUE TO MONITOR.
[2021-10-09] VITALS: BP 147/90
[2021-10-09] MEDS: BLOOD SUGAR DIAGNOSTIC 1 EACH STRIP IN SCH ×4 (00:31→17:42)
[2021-10-09] MEDS: INSULIN REGULAR, HUMAN 100 UNIT/ML 3 ML VIAL SQ PRN ×2 (00:32→06:15)
--- NOTE | 2021-10-09 00:32 | NUR ---
RN NOTES BLOOD SUGAR 98 mg/dL, NO INSULIN COVERAGE PER SLIDING SCALE.
[2021-10-09 04:00] VITALS: BP 129/91
[2021-10-09] MEDS: ACETAMINOPHEN 650 MG/20.3 ML UDC GT PRN ×2 (04:21→16:48)
--- NOTE | 2021-10-09 04:21 | NUR ---
RN NOTES NOTED WITH TEMPERATURE 99.7 FAHRENHEIT, BODY COOLING MEASURE PROVIDED. ACETAMINOPHEN 650MG GIVEN PER MD'S ORDERED.
[2021-10-09] MEDS: NEPRO 1,000 ML BOTTLE GT SCH (05:30)
--- NOTE | 2021-10-09 05:30 | NUR ---
RN NOTES TEMPERATURE RECHECKED AND OBTAINED 99.2 FAHRENHEIT. CONTINUE TO DO COOLING MEASURE. CONTINUE TO MONITOR.
[2021-10-09] MEDS: SEVELAMER CARBONATE 800 MG POWD.PACK GT SCH ×3 (05:31→20:54)
--- NOTE | 2021-10-09 06:15 | NUR ---
RN NOTES BLOOD SUGAR 84 mg/dL, NO INSULIN COVERAGE PER SLIDING SCALE.
--- NOTE | 2021-10-09 07:18 | NUR ---
RN NOTES NO SIGNIFICANT CHANGES THROUGH OUT THE SHIFT. RESPIRATORY EVEN AND UNLABORED, NO SOB NOTED. REMAIN AFEBRILE. NO S/S OF DISTRESS NOTED. RUNNING WITH NEPHRO @ 75ML/HR. HEAD OF BED KEPT ELEVATED. NOTED WITH RIGHT SOFT WRIST RESTRAINT AND MITTEN. SAFETY MEASURE PROVIDED. BED IN LOWEST POSITION, LOCKED. BED ALARM ARMED. ENDORSED TO NEXT SHIFT
--- NOTE | 2021-10-09 07:20 | NUR ---
PROFESSIONAL SERVICES SPECIALIST OPENING NOTES: PATIENT IN BED WITH HOB 30 DEGREES. PT IS ON MECHANICAL VENT WITH ALL PRESCRIBED SETTINGS TOLERATING WELL WITH NO SIGNS OF DISTRESS OR LABORED BREATHING. PT IS NON VERBAL, OBTUNDED, WITH A RIGHT HAND SOFT WRIST RESTRAINT AND MITTEN. PT IS TELE MONITORED ST 110BPM. PT IS ANURIC AND HD SCHEDULED FOR TODAY. G-TUBE IS IN PLACE WITH NEPRO @75ML/HR. PT IV ACCESS R UA MIDLINE AND R FEMORAL HD CATH. BED IS LOCKED IN LOWEST POSITION X3 BED RAILS UP AND ALL HOSPITAL SAFETY MEASURES ARE IN PLACE. WILL CONTINUE TO MONITOR THIS SHIFT.
[2021-10-09 07:56] LABS: BASOPHILS # (AUTO) 0.1 K/uL (0.0-0.2); BASOPHILS % (AUTO) 0.8 % (0.0-2.0); HEMATOCRIT 32 % (39-51); HEMOGLOBIN 10.1 g/dL (13.5-17.5); LYMPHOCYTES # (AUTO) 1.3 K/uL (0.8-4.8); LYMPHOCYTES % (AUTO) 10.3 % (20.0-44.0); MEAN CORPUSCULAR HGB CONC 32 g/dl (31.0-36.0); MEAN CORPUSCULAR VOLUME 99 fL (80-96); MONOCYTES # (AUTO) 1.7 K/uL (0.1-1.30); MONOCYTES % (AUTO) 13.3 % (2.0-12.0); NEUTROPHILS # (AUTO) 8.6 K/uL (1.8-8.9); NEUTROPHILS % (AUTO) 66.6 % (43.0-81.0); PLATELET COUNT (AUTO) 251 K/uL (150-450); RED BLOOD CELL COUNT(AUTO) 3.24 MIL/uL (4.5-6.0)
[2021-10-09 08:00] VITALS: BP 110/80
[2021-10-09] MEDS: PANTOPRAZOLE 40 MG/PACK PACK GT SCH (08:15)
[2021-10-09] MEDS: DOCUSATE SODIUM LIQ 100 MG/10 ML UDC GT SCH ×2 (08:15→20:54)
[2021-10-09] MEDS: CHLORHEXIDINE GLUCONATE 15 ML UDC MM SCH ×2 (08:15→20:55)
[2021-10-09] MEDS: FERROUS SULFATE (325 MG) 325 MG/TAB TABLET GT SCH (08:16)
[2021-10-09] MEDS: MULTIVITAMINS,THERAGRAN 1 UDTAB TABLET GT SCH (08:16)
[2021-10-09] MEDS: PROSOURCE / PROSTAT (PYXIS) 30 ML UDC GT SCH ×2 (08:16→09:46)
[2021-10-09] MEDS: MEROPENEM 500 MG in IV NS 0.9% 50 ML IV SCH (08:16)
[2021-10-09] MEDS: VIT B CMPLX 3/FA/VIT C/BIOTIN 1 TAB TABLET PO SCH (08:16)
[2021-10-09] MEDS: ASCORBIC ACID 500 MG TABLET GT SCH (08:17)
[2021-10-09] MEDS: METOCLOPRAMIDE HCL 10 MG TABLET GT SCH ×2 (08:17→16:46)
[2021-10-09] MEDS: MIDODRINE HCL (5MG) 5 MG TABLET GT SCH ×3 (08:17→16:48)
[2021-10-09] MEDS: SULFAMETH/TRIMETH 800/160 MG 1 UDTAB TABLET PO SCH (08:17)
[2021-10-09] MEDS: THERAHONEY GEL 1.5 OZ TUBE TP SCH ×2 (08:17→08:18)
[2021-10-09 08:24] LABS: CALCIUM, SERUM 10.2 mg/dL (8.5-10.1); CREATININE 6.5 mg/dL (0.6-1.3); MAGNESIUM 3.7 mg/dL (1.8-2.4); PHOSPHORUS 5.2 mg/dL (2.5-4.9); POTASSIUM 4.5 mmol/L (3.5-5.1)
[2021-10-09 12:00] VITALS: BP 102/71
[2021-10-09] MEDS: EPOETIN ALFA-EPBX 4,000 UNIT/ML VIAL SQ SCH (14:27)
--- NOTE | 2021-10-09 14:30 | NUR ---
DENTAL CREAM MAKER NOTES: PATIENT COMPLETED DIALYSIS TOLERATED WELL, DIALYSIS NURSE REPORTED 2 LITERS OUT, BP REMAIN WITHIN NORMAL WILL MONITOR
[2021-10-09 16:00] VITALS: BP 127/68
[2021-10-09] MEDS ORDERED: VANCOMYCIN 1 GM in IV D5W 250 ML IV ONE (16:00)
[2021-10-09] MEDS: LORAZEPAM 1 MG TABLET GT PRN (16:47)
--- NOTE | 2021-10-09 19:15 | NUR ---
RN OPENING NOTES RECEIVED PATIENT ON BED, OBTUNDED. ON MECHANICAL VENTILATION SETTINGS TOLERATED WELL. RESPIRATORY EVEN AND UNLABORED, NO SOB NOTED. REMAIN AFEBRILE. NO S/S OF DISTRESS NOTED. NOTED WITH ALEX MID LINE INTACT PATENT, FLUSHED WITH NS. NO INFILTRATION NOTED AT SITE. LEFT FEMORAL HD CATHETER, NO BLEEDING AT SITE. G-TUBE INPLACED, INTACT. VERIFIED PLACEMENT VIA AUSCULTATION, FLUSHED WITH WATER. NO RESIDUAL NOTED UPON ASPIRATION, RUNNING WITH NEPHRO @ 75ML/HR. KEEP HEAD OF BED ELEVATED. NOTED WITH RIGHT SOFT WRIST RESTRAINT AND MITTEN. SAFETY MEASURE PROVIDED. BED IN LOWEST POSITION, LOCKED. BED ALARM ARMED. CONTINUE TO MONITOR.
--- NOTE | 2021-10-09 19:33 | NUR ---
DINING ROOM ATTENDANT CLOSING NOTES: PT IN BED, OBTUNDED, RESPONSIVE TO PAINFUL STIMULI. ON TRACH TO VENT SETTINGS, TOLERATED WELL. ALEX MIDLINE INSERTED WELL TOLERATED.AND RT FEMORAL HD CATH INTACT AND PATENT. NO BLEEDING NOTED. NO FACIAL GRIMACING NOTED. NO ACUTE DISTRESS. G-TUBE FEEDING WITH NEPRO @ 75ML/HR. NO RESIDUAL NOTED. ALL DUE MEDS GIVEN ORDERED. ALL SAFETY MEASURES IN PLACE. BED IN LOWEST POSITION AND LOCKED. SIDE RAILS UP X2, PLACE CALL LIGHT WITHIN REACH. ENDORSE TO MORNING SHIFT NURSE
[2021-10-09 20:00] VITALS: BP 108/77
[2021-10-09] MEDS ORDERED: DAPTOMYCIN IV SCH (20:00)
[2021-10-09] MEDS ORDERED: NS 0.9% IV SCH (20:00)
[2021-10-09] MEDS: NS 0.9% IV SCH (20:55)
[2021-10-09] MEDS: DAPTOMYCIN IV SCH (20:55)
[2021-10-10] VITALS: BP 117/81
[2021-10-10] MEDS: INSULIN REGULAR, HUMAN 100 UNIT/ML 3 ML VIAL SQ PRN ×2 (00:24→06:29)
[2021-10-10] MEDS: BLOOD SUGAR DIAGNOSTIC 1 EACH STRIP IN SCH ×4 (00:24→18:00)
--- NOTE | 2021-10-10 00:25 | NUR ---
BLOOD SUGAR 86 mg/dL, NO INSULIN COVERAGE PER SLIDING SCALE.
[2021-10-10 04:00] VITALS: BP 112/78
[2021-10-10] MEDS: NEPRO 1,000 ML BOTTLE GT SCH (05:02)
[2021-10-10] MEDS: SEVELAMER CARBONATE 800 MG POWD.PACK GT SCH ×3 (05:03→21:19)
--- NOTE | 2021-10-10 06:30 | NUR ---
RN NOTES BLOOD SUGAR 91 mg/dL, NO INSULIN COVERAGE PER SLIDING SCALE.
[2021-10-10 06:35] LABS: BASOPHILS # (AUTO) 0.1 K/uL (0.0-0.2); EOSINOPHILS % (AUTO) 15.7 % (0.0-6.0); HEMATOCRIT 30 % (39-51); HEMOGLOBIN 9.3 g/dL (13.5-17.5); LYMPHOCYTES # (AUTO) 1.6 K/uL (0.8-4.8); LYMPHOCYTES % (AUTO) 12.5 % (20.0-44.0); MEAN CORPUSCULAR HGB CONC 31 g/dl (31.0-36.0); MEAN CORPUSCULAR VOLUME 98 fL (80-96); MONOCYTES # (AUTO) 1.7 K/uL (0.1-1.30); MONOCYTES % (AUTO) 12.8 % (2.0-12.0); NEUTROPHILS # (AUTO) 7.6 K/uL (1.8-8.9); PLATELET COUNT (AUTO) 261 K/uL (150-450); RED BLOOD CELL COUNT(AUTO) 3.07 MIL/uL (4.5-6.0); WHITE BLOOD COUNT (AUTO) 13.1 K/uL (4.3-11.0)
[2021-10-10 06:57] LABS: CREATININE 4.5 mg/dL (0.6-1.3); MAGNESIUM 3.1 mg/dL (1.8-2.4); PHOSPHORUS 4.1 mg/dL (2.5-4.9); POTASSIUM 4.4 mmol/L (3.5-5.1)
--- NOTE | 2021-10-10 07:18 | NUR ---
RN NOTES PATIENT REMAIN STABLE. RESPIRATORY EVEN AND UNLABORED, NO SOB NOTED. REMAIN AFEBRILE. NO S/S OF DISTRESS NOTED. RUNNING WITH NEPHRO @ 60ML/HR. HEAD OF BED KEPT ELEVATED. NOTED WITH RIGHT SOFT WRIST RESTRAINT AND MITTEN. SAFETY MEASURE PROVIDED. BED IN LOWEST POSITION, LOCKED. BED ALARM ARMED. ENDORSED TO NEXT SHIFT
[2021-10-10 08:00] VITALS: BP 119/88
[2021-10-10] MEDS: PROSOURCE / PROSTAT (PYXIS) 30 ML UDC GT SCH (09:00)
[2021-10-10] MEDS: THERAHONEY GEL 1.5 OZ TUBE TP SCH ×2 (09:36)
[2021-10-10] MEDS: DOCUSATE SODIUM LIQ 100 MG/10 ML UDC GT SCH ×2 (10:08→21:19)
[2021-10-10] MEDS: PANTOPRAZOLE 40 MG/PACK PACK GT SCH (10:09)
[2021-10-10] MEDS: METOCLOPRAMIDE HCL 10 MG TABLET GT SCH ×2 (10:09→13:21)
[2021-10-10] MEDS: ASCORBIC ACID 500 MG TABLET GT SCH (10:09)
[2021-10-10] MEDS: FERROUS SULFATE (325 MG) 325 MG/TAB TABLET GT SCH (10:09)
[2021-10-10] MEDS: MULTIVITAMINS,THERAGRAN 1 UDTAB TABLET GT SCH (10:09)
[2021-10-10] MEDS: CHLORHEXIDINE GLUCONATE 15 ML UDC MM SCH ×2 (10:15→21:19)
[2021-10-10] MEDS: MIDODRINE HCL (5MG) 5 MG TABLET GT SCH ×3 (10:15→19:24)
[2021-10-10] MEDS: VIT B CMPLX 3/FA/VIT C/BIOTIN 1 TAB TABLET PO SCH (10:15)
[2021-10-10] MEDS: MEROPENEM 500 MG in IV NS 0.9% 50 ML IV SCH (10:38)
[2021-10-10 12:00] VITALS: BP 118/84
[2021-10-10 16:00] VITALS: BP 122/80
--- NOTE | 2021-10-10 19:10 | NUR ---
RN NOTE RECEIVED PATIENT IN BED, OBTUNDED, IN NO ACUTE DISTRESS AT THIS TIME. ON TRACH TO MECHANICAL VENT WITH SETTINGS PRESCRIBED, SATURATION AT 100%, ST ON THE MONITOR, HR IS 103. NOTED ALEX MIDLINE, PATENT AND FLUSHING WELL, AND R FEMORAL HD CATH. NO S/S OF INFECTION. NOTED GTUBE INTACT POSITIVE PLACEMENT NOTED, NO RESIDUAL, WITH TUBE FEEDING OF NEPRO AT 60 ML/HR. SOFT RESTRAINT AND MITTEN IN PLACE AT R HAND/WRIST, SKIN AND CIRCULATION WAS CHECKED AND WITHIN DEFINED LIMITS. SAFETY MEASURES IMPLEMENTED. PATIENT BED ALARM IS ON. HEAD OF BED ELEVATED. BED IS LOCKED, IN LOWEST POSITION AND SIDE RAILS UP. CALL LIGHT WITHIN REACH OF THE PATIENT. WILL CONTINUE TO MONITOR AND REASSESS FOR ANY CHANGES.
[2021-10-10 20:00] VITALS: BP 129/92
[2021-10-11] VITALS: BP 127/96
[2021-10-11] MEDS: BLOOD SUGAR DIAGNOSTIC 1 EACH STRIP IN SCH ×4 (00:22→17:30)
[2021-10-11] MEDS: NEPRO 1,000 ML BOTTLE GT SCH ×2 (02:34→23:51)
[2021-10-11 04:00] VITALS: BP 122/73
[2021-10-11] MEDS: SEVELAMER CARBONATE 800 MG POWD.PACK GT SCH ×3 (06:14→20:06)
[2021-10-11 06:57] LABS: BASOPHILS # (AUTO) 0.1 K/uL (0.0-0.2); BASOPHILS % (AUTO) 0.7 % (0.0-2.0); EOSINOPHILS % (AUTO) 14.2 % (0.0-6.0); HEMATOCRIT 29 % (39-51); HEMOGLOBIN 9.3 g/dL (13.5-17.5); LYMPHOCYTES # (AUTO) 1.4 K/uL (0.8-4.8); MEAN CORPUSCULAR HGB CONC 32 g/dl (31.0-36.0); MEAN CORPUSCULAR VOLUME 99 fL (80-96); MONOCYTES # (AUTO) 1.8 K/uL (0.1-1.30); MONOCYTES % (AUTO) 13.7 % (2.0-12.0); NEUTROPHILS # (AUTO) 7.8 K/uL (1.8-8.9); NEUTROPHILS % (AUTO) 60.4 % (43.0-81.0); PLATELET COUNT (AUTO) 273 K/uL (150-450); RED BLOOD CELL COUNT(AUTO) 2.92 MIL/uL (4.5-6.0); WHITE BLOOD COUNT (AUTO) 12.9 K/uL (4.3-11.0)
[2021-10-11 07:12] LABS: CALCIUM, SERUM 9.7 mg/dL (8.5-10.1); CREATININE 5.7 mg/dL (0.6-1.3); MAGNESIUM 3.6 mg/dL (1.8-2.4); PHOSPHORUS 4.7 mg/dL (2.5-4.9); POTASSIUM 4.5 mmol/L (3.5-5.1)
--- NOTE | 2021-10-11 07:21 | NUR ---
CT SCAN TECHNICIAN OPENING NOTES: RECEIVED PATIENT ON BED, OBTUNDED. ON MECHANICAL VENTILATION SETTINGS TOLERATED WELL. RESPIRATORY EVEN AND UNLABORED, NO SOB NOTED. REMAIN AFEBRILE. NO S/S OF DISTRESS NOTED. NOTED WITH ALEX MID LINE INTACT PATENT, FLUSHED WITH NS. NO INFILTRATION NOTED AT SITE. LEFT FEMORAL HD CATHETER, NO BLEEDING AT SITE. G-TUBE INPLACE, INTACT. VERIFIED PLACEMENT VIA AUSCULTATION, FLUSHED WITH WATER. NO RESIDUAL NOTED UPON ASPIRATION, RUNNING WITH NEPHRO @ 60ML/HR. KEEP HEAD OF BED ELEVATED. NOTED WITH RIGHT SOFT WRIST RESTRAINT AND MITTEN. SAFETY MEASURE PROVIDED. BED IN LOWEST POSITION, LOCKED. BED ALARM ARMED. CONTINUE TO MONITOR.
[2021-10-11 08:00] VITALS: BP 129/82
[2021-10-11] MEDS: PANTOPRAZOLE 40 MG/PACK PACK GT SCH (08:21)
[2021-10-11] MEDS: PROSOURCE / PROSTAT (PYXIS) 30 ML UDC GT SCH (08:21)
[2021-10-11] MEDS: FERROUS SULFATE (325 MG) 325 MG/TAB TABLET GT SCH (08:21)
[2021-10-11] MEDS: DOCUSATE SODIUM LIQ 100 MG/10 ML UDC GT SCH ×2 (08:21→20:07)
[2021-10-11] MEDS: ASCORBIC ACID 500 MG TABLET GT SCH (08:22)
[2021-10-11] MEDS: METOCLOPRAMIDE HCL 10 MG TABLET GT SCH ×2 (08:22→16:16)
[2021-10-11] MEDS: VIT B CMPLX 3/FA/VIT C/BIOTIN 1 TAB TABLET PO SCH (08:23)
[2021-10-11] MEDS: CHLORHEXIDINE GLUCONATE 15 ML UDC MM SCH ×2 (08:23→20:07)
[2021-10-11] MEDS: THERAHONEY GEL 1.5 OZ TUBE TP SCH ×2 (08:23→08:24)
[2021-10-11] MEDS: MULTIVITAMINS,THERAGRAN 1 UDTAB TABLET GT SCH (08:23)
[2021-10-11] MEDS: MEROPENEM 500 MG in IV NS 0.9% 50 ML IV SCH (08:27)
[2021-10-11] MEDS: MIDODRINE HCL (5MG) 5 MG TABLET GT SCH ×3 (08:28→16:15)
--- NOTE | 2021-10-11 08:29 | NUR ---
RN NOTES: MIDODRINE NOT GIVEN FOR BP 129/82
[2021-10-11] MEDS: NS 0.9% IV SCH (09:26)
[2021-10-11] MEDS: DAPTOMYCIN IV SCH (09:26)
--- NOTE | 2021-10-11 11:02 | NUR ---
rn notes: received ABG result, relayed to DR santos with order to transfer to ICU,nurse at ICU said to send pt in 15 minutes, will follow up
[2021-10-11 12:00] VITALS: BP 126/67
[2021-10-11 16:00] VITALS: BP 128/71
[2021-10-11] MEDS: LORAZEPAM 1 MG TABLET GT PRN (16:42)
--- NOTE | 2021-10-11 19:35 | NUR ---
MACHINE TAILER OPENING NOTES RECEIVED PATIENT LAYING AWAKE IN BED. A/O X0 OBTUNDED. PATIENT WITH REGULAR AND UNLABORED BREATHING ON MECH VENT, TOLERATED SETTINGS WELL. NO SIGNS AND SYMPTOMS OF DISTRESS NOTED AT THIS TIME. NO COMPLAINS OF PAIN OR DISCOMFORT AT THIS TIME. PATIENT ON TELE MONITOR READING ST @ 112 BPM. IV ACCESS ALEX MIDLINE SL. IV ACCESS PATENT AND INTACT. SAFETY PRECAUTIONS ENFORCED WITH BED LOCKED AND AT LOWEST POSITION. SIDERAILS UP X2. CALL LIGHT WITHIN REACH AT ALL TIMES. WILL CONTINUE TO MONITOR PATIENT.
--- NOTE | 2021-10-11 19:47 | NUR ---
INDUSTRIAL GAS FITTER HELPER CLOSING NOTES: PT IN BED, OBTUNDED, RESPONSIVE TO PAINFUL STIMULI. ON TRACH TO VENT SETTINGS, TOLERATED WELL. ALEX MIDLINE INSERTED WELL TOLERATED.AND RT FEMORAL HD CATH INTACT AND PATENT. NO BLEEDING NOTED. NO FACIAL GRIMACING NOTED. NO ACUTE DISTRESS. G-TUBE FEEDING WITH NEPRO @ 75ML/HR. NO RESIDUAL NOTED. ALL DUE MEDS GIVEN ORDERED. ALL SAFETY MEASURES IN PLACE. BED IN LOWEST POSITION AND LOCKED. SIDE RAILS UP X2, PLACE CALL LIGHT WITHIN REACH. ENDORSE TO MORNING SHIFT NURSE
[2021-10-11 20:00] VITALS: BP 118/74
[2021-10-12] VITALS: BP 123/77
[2021-10-12] MEDS: BLOOD SUGAR DIAGNOSTIC 1 EACH STRIP IN SCH ×5 (00:04→23:44)
[2021-10-12 04:00] VITALS: BP 127/76
[2021-10-12] MEDS: SEVELAMER CARBONATE 800 MG POWD.PACK GT SCH ×3 (05:10→20:09)
[2021-10-12 06:25] LABS: BASOPHILS # (AUTO) 0.1 K/uL (0.0-0.2); BASOPHILS % (AUTO) 0.7 % (0.0-2.0); EOSINOPHILS % (AUTO) 12.2 % (0.0-6.0); HEMATOCRIT 30 % (39-51); HEMOGLOBIN 9.7 g/dL (13.5-17.5); LYMPHOCYTES # (AUTO) 1.5 K/uL (0.8-4.8); LYMPHOCYTES % (AUTO) 12.2 % (20.0-44.0); MEAN CORPUSCULAR HGB CONC 32 g/dl (31.0-36.0); MEAN CORPUSCULAR VOLUME 98 fL (80-96); MONOCYTES # (AUTO) 1.7 K/uL (0.1-1.30); MONOCYTES % (AUTO) 13.9 % (2.0-12.0); NEUTROPHILS # (AUTO) 7.3 K/uL (1.8-8.9); PLATELET COUNT (AUTO) 263 K/uL (150-450); RED BLOOD CELL COUNT(AUTO) 3.07 MIL/uL (4.5-6.0)
[2021-10-12 06:59] LABS: CALCIUM, SERUM 10.2 mg/dL (8.5-10.1); CREATININE 7.1 mg/dL (0.6-1.3); MAGNESIUM 3.8 mg/dL (1.8-2.4); PHOSPHORUS 5.2 mg/dL (2.5-4.9); POTASSIUM 4.5 mmol/L (3.5-5.1)
--- NOTE | 2021-10-12 07:06 | NUR ---
MEMBERSHIP COUNSELOR CLOSING NOTES PATIENT STILL LAYING AWAKE IN BED. A/O X0 OBTUNDED. PATIENT WITH REGULAR AND UNLABORED BREATHING ON MECH VENT, TOLERATED SETTINGS WELL. NO SIGNS AND SYMPTOMS OF DISTRESS NOTED AT THIS TIME. NO COMPLAINS OF PAIN OR DISCOMFORT AT THIS TIME. PATIENT ON TELE MONITOR READING ST @ 109 BPM. IV ACCESS ALEX MIDLINE SL. IV ACCESS PATENT AND INTACT. SAFETY PRECAUTIONS ENFORCED WITH BED LOCKED AND AT LOWEST POSITION. SIDERAILS UP X2. CALL LIGHT WITHIN REACH AT ALL TIMES. WILL ENDORSE CONTINUITY OF CARE TO DAY SHIFT NURSE
--- NOTE | 2021-10-12 07:32 | NUR ---
RN OPENING NOTES RECEIVED PATIENT LAYING AWAKE IN BED. A/O X0 OBTUNDED. PATIENT WITH REGULAR AND UNLABORED BREATHING ON MECH VENT, TOLERATED SETTINGS WELL. NO SIGNS AND SYMPTOMS OF DISTRESS NOTED AT THIS TIME. NO COMPLAINS OF PAIN OR DISCOMFORT AT THIS TIME. PATIENT ON TELE MONITOR. IV ACCESS ALEX MIDLINE SL. IV ACCESS PATENT AND INTACT. SAFETY PRECAUTIONS ENFORCED WITH BED LOCKED AND AT LOWEST POSITION. SIDERAILS UP X2. CALL LIGHT WITHIN REACH AT ALL TIMES.
[2021-10-12 08:00] VITALS: BP 119/79
[2021-10-12] MEDS: DOCUSATE SODIUM LIQ 100 MG/10 ML UDC GT SCH ×2 (09:21→20:09)
[2021-10-12] MEDS: MEROPENEM 500 MG in IV NS 0.9% 50 ML IV SCH (09:21)
[2021-10-12] MEDS: CHLORHEXIDINE GLUCONATE 15 ML UDC MM SCH ×2 (09:21→20:09)
[2021-10-12] MEDS: THERAHONEY GEL 1.5 OZ TUBE TP SCH ×2 (09:21)
[2021-10-12] MEDS: VIT B CMPLX 3/FA/VIT C/BIOTIN 1 TAB TABLET PO SCH (09:22)
[2021-10-12] MEDS: FERROUS SULFATE (325 MG) 325 MG/TAB TABLET GT SCH (09:22)
[2021-10-12] MEDS: MULTIVITAMINS,THERAGRAN 1 UDTAB TABLET GT SCH (09:22)
[2021-10-12] MEDS: METOCLOPRAMIDE HCL 10 MG TABLET GT SCH ×2 (09:22→18:12)
[2021-10-12] MEDS: MIDODRINE HCL (5MG) 5 MG TABLET GT SCH ×3 (09:22→18:13)
[2021-10-12] MEDS: ASCORBIC ACID 500 MG TABLET GT SCH (09:22)
[2021-10-12] MEDS: PROSOURCE / PROSTAT (PYXIS) 30 ML UDC GT SCH (09:24)
[2021-10-12] MEDS: PANTOPRAZOLE 40 MG/PACK PACK GT SCH (09:25)
[2021-10-12 12:00] VITALS: BP 125/80
[2021-10-12] MEDS: ACETAMINOPHEN 650 MG/20.3 ML UDC GT PRN ×2 (12:45→20:20)
[2021-10-12] MEDS: INSULIN REGULAR, HUMAN 100 UNIT/ML 3 ML VIAL SQ PRN ×2 (12:53→18:40)
[2021-10-12 16:00] VITALS: BP 121/79
[2021-10-12] MEDS: EPOETIN ALFA-EPBX 4,000 UNIT/ML VIAL SQ SCH (16:12)
[2021-10-12] MEDS: NEPRO 1,000 ML BOTTLE GT SCH (18:13)
--- NOTE | 2021-10-12 18:54 | NUR ---
RN NOTE ORDER FOR PATIENT FOR HAVE HD PERM CATH, CATH TO BE REMOVED BY SURGEON THAT PLACED CATH. DR ANTOINE INFORMED.
--- NOTE | 2021-10-12 18:57 | NUR ---
RN CLOSING NOTES PATIENT LAYING AWAKE IN BED. A/O X0 OBTUNDED. PATIENT WITH REGULAR AND UNLABORED BREATHING ON MECH VENT, TOLERATED SETTINGS WELL. NO SIGNS AND SYMPTOMS OF DISTRESS NOTED AT THIS TIME. NO COMPLAINS OF PAIN OR DISCOMFORT AT THIS TIME. PATIENT ON TELE MONITOR. IV ACCESS ALEX MIDLINE SL. IV ACCESS PATENT AND INTACT. SAFETY PRECAUTIONS ENFORCED WITH BED LOCKED AND AT LOWEST POSITION. SIDERAILS UP X2. CALL LIGHT WITHIN REACH AT ALL TIMES. WILL ENDORSE TO NIGHT NURSE FOR DENNIS.
--- NOTE | 2021-10-12 19:40 | NUR ---
RN OPENING NOTES, RECEIVED PT IN BED, OBTUNDED, RESPONSIVE TO PAINFUL STIMULI. ON TRACH TO VENT SETTINGS, TOLERATED WELL. IV ACCESS ON ALEX MIDLINE AND RT FEMORAL HD CATH INTACT AND PATENT. NO BLEEDING NOTED. NO FACIAL GRIMACING NOTED. NO ACUTE DISTRESS. G-TUBE FEEDING WITH NEPRO @ 60ML/HR. NO RESIDUAL NOTED. ALL SAFETY MEASURES IN PLACE. BED IN LOWEST POSITION AND LOCKED. SIDE RAILS UP X2, PLACE CALL LIGHT WITHIN REACH. WILL CONTINUE TO MONITOR.
[2021-10-12 20:00] VITALS: BP 129/74
--- NOTE | 2021-10-12 20:26 | NUR ---
RN NOTES: TYLENOL 650 MG/20.3 ML GIVEN DUE TO INCREASED TEMP 100.2. PT TOLERATED WELL. WILL CONTINUE TO MONITOR
--- NOTE | 2021-10-12 23:45 | NUR ---
RN NOTES: BLOOD SUGAR 107. NO COVERAGE NEEDED. NO S/S OF HYPER/HYPOGLYCEMIA. WILL CONTINUE TO MONITOR
[2021-10-13] VITALS: BP 113/70
[2021-10-13 04:00] VITALS: BP 125/85
[2021-10-13] MEDS: SEVELAMER CARBONATE 800 MG POWD.PACK GT SCH ×3 (05:29→20:10)
[2021-10-13] MEDS: BLOOD SUGAR DIAGNOSTIC 1 EACH STRIP IN SCH ×3 (05:37→17:33)
--- NOTE | 2021-10-13 06:43 | NUR ---
RN CLOSING NOTES, PT IN BED, OBTUNDED, RESPONSIVE TO PAINFUL STIMULI. ON TRACH TO VENT SETTINGS, TOLERATED WELL. O2 SAT 100%. IV ACCESS ON ALEX MIDLINE AND RT FEMORAL HD CATH INTACT AND PATENT. NO BLEEDING NOTED. NO FACIAL GRIMACING NOTED. NO ACUTE DISTRESS. G-TUBE FEEDING WITH NEPRO @ 60ML/HR. NO RESIDUAL NOTED. ALL DUE MEDS GIVEN ORDERED. ALL SAFETY MEASURES IN PLACE. BED IN LOWEST POSITION AND LOCKED. SIDE RAILS UP X2, PLACE CALL LIGHT WITHIN REACH. WILL ENDORSE TO MORNING SHIFT NURSE.
[2021-10-13 07:13] LABS: CALCIUM, SERUM 10.3 mg/dL (8.5-10.1); PHOSPHORUS 6.4 mg/dL (2.5-4.9)
[2021-10-13 07:18] LABS: BASOPHILS # (AUTO) 0.1 K/uL (0.0-0.2); BASOPHILS % (AUTO) 0.8 % (0.0-2.0); EOSINOPHILS % (AUTO) 12.9 % (0.0-6.0); HEMATOCRIT 32 % (39-51); HEMOGLOBIN 10.3 g/dL (13.5-17.5); LYMPHOCYTES # (AUTO) 1.6 K/uL (0.8-4.8); LYMPHOCYTES % (AUTO) 9.5 % (20.0-44.0); MEAN CORPUSCULAR HGB CONC 32 g/dl (31.0-36.0); MEAN CORPUSCULAR VOLUME 99 fL (80-96); MONOCYTES # (AUTO) 1.8 K/uL (0.1-1.30); MONOCYTES % (AUTO) 11.1 % (2.0-12.0); NEUTROPHILS # (AUTO) 10.7 K/uL (1.8-8.9); NEUTROPHILS % (AUTO) 65.7 % (43.0-81.0); PLATELET COUNT (AUTO) 255 K/uL (150-450); RED BLOOD CELL COUNT(AUTO) 3.27 MIL/uL (4.5-6.0); WHITE BLOOD COUNT (AUTO) 16.3 K/uL (4.3-11.0)
--- NOTE | 2021-10-13 07:22 | NUR ---
RN NOTES RECEIVED CALL FROM LAB FOR CRITICAL LAB RESULT MG 4.4 BUN 144 CR 8.4. RECEIVED CALL ALSO FROM HD NURSE PER DR. ANTOINE ORDER FOR PATIENT TO HAVE HD TODAY PRIOR HD CATHETER REMOVAL. PER HD NURSE TO HOLD PATIENT BP MEDS PRIOR TO HD.
[2021-10-13 07:28] LABS: CREATININE 8.4 mg/dL (0.6-1.3); MAGNESIUM 4.4 mg/dL (1.8-2.4)
--- NOTE | 2021-10-13 07:30 | NUR ---
RN OPENING NOTES RECEIVED PATIENT AWAKE IN BED. NOT IN DISTRESS, CO FACIAL GRIMACING NOTED. TRACH TO VENT AC 15 FIO2 30% VT 500 PEEP 5 SATING 99%. GT PATENT AND INTACT WITH TF RUNNING NEPRO 1.8 @ 60CCHR, ALEX MIDLINE PATENT AND INTACT. WITH BILATERAL SOFT RESTRAINT IN PLACE. RIGHT FEMORAL CATHETER INTACT, NO BLEEDING NOTED. ON CONTACT ISOLATION FOR MULTIPLE WOUNDS. BED TO LOWEST POSITION AND LOCKED. KEPT HOB ELEVATED. Addendum: 10/13/21 at 1041 by SOCRATES LEWIS RN WITH RIGHT MITTEN RESTRAINTS IN PLACE INSTEAD OF BILATERAL SOFT WRIST RESTRAINT
[2021-10-13 08:00] VITALS: BP 128/73
--- NOTE | 2021-10-13 08:30 | NUR ---
RN NOTES HD STARTED BY DIALYSIS NURSE AT BEDSIDE.
[2021-10-13] MEDS: MEROPENEM 500 MG in IV NS 0.9% 50 ML IV SCH ×2 (08:55→11:56)
[2021-10-13] MEDS: DOCUSATE SODIUM LIQ 100 MG/10 ML UDC GT SCH ×2 (09:20→20:10)
[2021-10-13] MEDS: METOCLOPRAMIDE HCL 10 MG TABLET GT SCH ×2 (09:20→16:13)
[2021-10-13] MEDS: MULTIVITAMINS,THERAGRAN 1 UDTAB TABLET GT SCH (09:20)
[2021-10-13] MEDS: FERROUS SULFATE (325 MG) 325 MG/TAB TABLET GT SCH (09:20)
[2021-10-13] MEDS: ASCORBIC ACID 500 MG TABLET GT SCH (09:20)
[2021-10-13] MEDS: VIT B CMPLX 3/FA/VIT C/BIOTIN 1 TAB TABLET PO SCH (09:20)
[2021-10-13] MEDS: MIDODRINE HCL (5MG) 5 MG TABLET GT SCH ×3 (09:21→16:13)
[2021-10-13] MEDS: PROSOURCE / PROSTAT (PYXIS) 30 ML UDC GT SCH (09:21)
[2021-10-13] MEDS: CHLORHEXIDINE GLUCONATE 15 ML UDC MM SCH ×2 (09:21→20:10)
[2021-10-13] MEDS: THERAHONEY GEL 1.5 OZ TUBE TP SCH ×2 (09:22)
[2021-10-13] MEDS: PANTOPRAZOLE 40 MG/PACK PACK GT SCH (09:23)
--- NOTE | 2021-10-13 11:35 | NUR ---
RN NOTES HD DONE WITH 2L OUTPUT. PATIENT V/S STABLE.
[2021-10-13 12:00] VITALS: BP 108/70
[2021-10-13] MEDS: DAPTOMYCIN IV SCH (12:49)
[2021-10-13] MEDS: NS 0.9% IV SCH (12:49)
--- NOTE | 2021-10-13 15:14 | NUR ---
[employer] RESEARCHER NOTE SPOKE WITH DR FLEX PASCUAL , INFECTION DISEASE DOCTOR ,UPDATED PATIENT CONDITION , STATED NO NEED TO REMOVE HD CATH AT THIS TIME MAY CONSIDERED IN FUTURE DUE TO BLOOD CX WAS POSITIVE BEFORE AND FEVER , WILL F\U
[2021-10-13 16:00] VITALS: BP 157/64
[2021-10-13] MEDS: NEPRO 1,000 ML BOTTLE GT SCH (17:33)
[2021-10-13] MEDS: INSULIN REGULAR, HUMAN 100 UNIT/ML 3 ML VIAL SQ PRN (17:33)
--- NOTE | 2021-10-13 18:28 | NUR ---
RN CLOSING NOTES PATIENT IN BED, OBTUNDED, RESPONSIVE TO TACTILE STIMULI, AFEBRILE. TRACH TO VENT SATING 99%, NOT IN DISTRESS, NO FACIAL GRIMACING NOTED. ALEX MIDLINE PATENT AND INTACT. GT PATENT AND INTACT NO RESIDUAL WITH NEPRO 1.8 @ 65CC/HR. WITH RIGHT SOFT RESTRAINT AND MITTEN IN PLACE. RIGHT FEMORAL HD CATH IN PLACE, NO BLEEDING NOTED. PER ID DOCTOR DR. MCCORD, WILL KEEP THE HD CATH FOR NOW TILL FURTHER ORDERS. PATIENT HAD HD TODAY WITH 2L OUTPUT. FOR CB, BMP, MG,PHOS LABS IN AM. BED TO LOWEST POSITION AND LOCKED. KEPT HOB ELEVATED. WILL ENDORSE TO NIGHT NURSE ON DUTY.
--- NOTE | 2021-10-13 19:10 | NUR ---
RN NOTE RECEIVED PATIENT IN BED OBTUNDED,CONTRACTED,ON VENT NON VERBAL OPEN EYES,ON G-TUBE NEPRO 1.8 60CC/HR CHECKED PLACEMENT IN PLACE NO RESIDUAL NOTED,IV SITE IS ON RIGHT UPPER ARM MIDLINE INTACT PATENT RIGHT FEMORAL CATH FOR HD,SAFETY MEASURE IMPLEMENT BED IN LOW POSITION AND LOCKED,HEAD OF THE BED ELEVATED,CONTINUE TO MONITOR.
[2021-10-13 20:00] VITALS: BP 114/84
[2021-10-14] VITALS (7 sets, daily range): BP systolic 105–132; BP diastolic 75–90
[2021-10-14] MEDS: BLOOD SUGAR DIAGNOSTIC 1 EACH STRIP IN SCH ×4 (00:16→17:07)
[2021-10-14] MEDS: SEVELAMER CARBONATE 800 MG POWD.PACK GT SCH ×3 (05:14→20:21)
[2021-10-14 06:18] LABS: BASOPHILS # (AUTO) 0.1 K/uL (0.0-0.2); EOSINOPHILS % (AUTO) 14.2 % (0.0-6.0); HEMATOCRIT 31 % (39-51); HEMOGLOBIN 9.9 g/dL (13.5-17.5); LYMPHOCYTES # (AUTO) 1.5 K/uL (0.8-4.8); LYMPHOCYTES % (AUTO) 10.9 % (20.0-44.0); MEAN CORPUSCULAR HGB CONC 32 g/dl (31.0-36.0); MEAN CORPUSCULAR VOLUME 98 fL (80-96); MONOCYTES # (AUTO) 1.6 K/uL (0.1-1.30); MONOCYTES % (AUTO) 11.7 % (2.0-12.0); NEUTROPHILS # (AUTO) 8.3 K/uL (1.8-8.9); NEUTROPHILS % (AUTO) 62.2 % (43.0-81.0); PLATELET COUNT (AUTO) 250 K/uL (150-450); RED BLOOD CELL COUNT(AUTO) 3.18 MIL/uL (4.5-6.0); WHITE BLOOD COUNT (AUTO) 13.4 K/uL (4.3-11.0)
--- NOTE | 2021-10-14 06:40 | NUR ---
RN NOTE PATIENT REMAINS ON OBTUNDED CONTRACTED ON MECHANICAL VENT,ON G-TUBE NO SOB NOT ACUTE DISTRESS NOTED,ALL DUE MEDS GIVEN MD ORDERED KEPT CLEAN AND DRY ALL THE TIME,KEPT COMFORTABLE TURNED AND REPOSITIONED EVERY 2 HOURS,KEPT HEAD OF THE BED ELEVATED ALL THE TIME,ENDORSE NEXT COMING SHIFT FOR CONTINUATION OF CARE
[2021-10-14 06:43] LABS: CALCIUM, SERUM 9.6 mg/dL (8.5-10.1); CREATININE 6.2 mg/dL (0.6-1.3); MAGNESIUM 3.6 mg/dL (1.8-2.4); PHOSPHORUS 5.3 mg/dL (2.5-4.9); POTASSIUM 4.4 mmol/L (3.5-5.1)
[2021-10-14] MEDS: MEROPENEM 500 MG in IV NS 0.9% 50 ML IV SCH (08:14)
[2021-10-14] MEDS: CHLORHEXIDINE GLUCONATE 15 ML UDC MM SCH ×2 (08:15→20:21)
[2021-10-14] MEDS: DOCUSATE SODIUM LIQ 100 MG/10 ML UDC GT SCH ×2 (08:15→20:21)
[2021-10-14] MEDS: ASCORBIC ACID 500 MG TABLET GT SCH (08:15)
[2021-10-14] MEDS: MULTIVITAMINS,THERAGRAN 1 UDTAB TABLET GT SCH (08:15)
[2021-10-14] MEDS: FERROUS SULFATE (325 MG) 325 MG/TAB TABLET GT SCH (08:15)
[2021-10-14] MEDS: VIT B CMPLX 3/FA/VIT C/BIOTIN 1 TAB TABLET PO SCH (08:15)
[2021-10-14] MEDS: PANTOPRAZOLE 40 MG/PACK PACK GT SCH (08:15)
[2021-10-14] MEDS: MIDODRINE HCL (5MG) 5 MG TABLET GT SCH ×3 (08:16→16:40)
[2021-10-14] MEDS: METOCLOPRAMIDE HCL 10 MG TABLET GT SCH ×2 (08:16→16:40)
[2021-10-14] MEDS: PROSOURCE / PROSTAT (PYXIS) 30 ML UDC GT SCH (08:17)
[2021-10-14] MEDS: THERAHONEY GEL 1.5 OZ TUBE TP SCH ×2 (08:17)
[2021-10-14] MEDS: NEPRO 1,000 ML BOTTLE GT SCH (10:59)
[2021-10-14] MEDS: INSULIN REGULAR, HUMAN 100 UNIT/ML 3 ML VIAL SQ PRN ×2 (11:38→17:07)
[2021-10-14] MEDS: ALBUMIN 25% 25 GM in PREMIX 1 EA IV PRN (12:36)
[2021-10-14] MEDS: EPOETIN ALFA-EPBX 4,000 UNIT/ML VIAL SQ SCH (14:28)
--- NOTE | 2021-10-14 19:10 | NUR ---
RN NOTES RECEIVED REPORT FROM MORNING RN PATIENT IN BED OBTUNDED. ON TRACH PORTEX #8 CONNECTED TO MV WITH PRESCRIBED SETTINGS FI02 30%, AC 15 TV 500 PEEP 5. WITH IV ACCESS AT ALEX MIDLINE PATENT AND FLUSHES WELL. WITH R FENORAL HD CATHETER INTACT NO BLEEDING NOTED. VITAL SIGNS TAKEN AND RECORDED. AFEBRILE WITH SOFT RESTRAINTS IN PLACE AT ALL TIMES. S/P HD THIS MORNING WITH 2L REMOVED. ALL SAFETY MEASURES IN PLACE AT ALL TIMES. HOB ELEVATED. BED ON LOWEST POSITION AND LOCKED. WILL CLOSELY MONITOR THE PATIENT
[2021-10-15] VITALS: BP 121/85
[2021-10-15] MEDS: BLOOD SUGAR DIAGNOSTIC 1 EACH STRIP IN SCH ×4 (00:33→18:10)
--- NOTE | 2021-10-15 00:33 | NUR ---
RN NOTES BS 107 MG/DL NO COVERAGE PATIENT REMAINS STABLE AT THIS TIME
[2021-10-15 04:00] VITALS: BP 106/75
[2021-10-15] MEDS: SEVELAMER CARBONATE 800 MG POWD.PACK GT SCH ×3 (05:40→21:28)
--- NOTE | 2021-10-15 05:51 | NUR ---
RN NOTES BS 77 MG/DL PATIENT ON CONTINUOUS FEEDING.
--- NOTE | 2021-10-15 06:51 | NUR ---
RN NOTES PATIENT REMAINS STABLE NO SIGNIFICANT CHANGES IN HEALTH CONDITION REMAINS AFEBRILE THE WHOLE SHIFT. ALL DUE MEDS GIVEN ORDERED. WOUND CARE DONE. GTF ON CONTINUOS AT 60CC/HR. ALL SAFETY MEASURES IN PLACE. HOB ELEVATED. CALL LIGHT WITHIN REACH BED ON LOWEST POSITION AND LOCKED. WILL ENDORSED TO MORNING SHIFT FOR DENNIS
[2021-10-15 07:12] LABS: BASOPHILS # (AUTO) 0.2 K/uL (0.0-0.2); BASOPHILS % (AUTO) 1.4 % (0.0-2.0); EOSINOPHILS % (AUTO) 14.2 % (0.0-6.0); HEMATOCRIT 33 % (39-51); HEMOGLOBIN 10.4 g/dL (13.5-17.5); LYMPHOCYTES # (AUTO) 1.6 K/uL (0.8-4.8); LYMPHOCYTES % (AUTO) 12.8 % (20.0-44.0); MEAN CORPUSCULAR HGB CONC 31 g/dl (31.0-36.0); MEAN CORPUSCULAR VOLUME 100 fL (80-96); MONOCYTES # (AUTO) 1.7 K/uL (0.1-1.30); MONOCYTES % (AUTO) 13.4 % (2.0-12.0); NEUTROPHILS # (AUTO) 7.3 K/uL (1.8-8.9); NEUTROPHILS % (AUTO) 58.2 % (43.0-81.0); PLATELET COUNT (AUTO) 248 K/uL (150-450); RED BLOOD CELL COUNT(AUTO) 3.31 MIL/uL (4.5-6.0); WHITE BLOOD COUNT (AUTO) 12.5 K/uL (4.3-11.0)
--- NOTE | 2021-10-15 07:15 | NUR ---
RN OPENING NOTES PATIENT ENDORSED BY OUTGOING NURSE FOR CONTINUITY OF CARE. RECEIVED PATIENT AWAKE IN BED. NOT IN DISTRESS, CO FACIAL GRIMACING NOTED. TRACH TO VENT AC 15 FIO2 30% VT 500 PEEP 5 SATING 99%. GT PATENT AND INTACT WITH TF RUNNING NEPRO 1.8 @ 60CCHR, ALEX MIDLINE PATENT AND INTACT. WITH BILATERAL SOFT RESTRAINT IN PLACE. RIGHT FEMORAL CATHETER INTACT, NO BLEEDING NOTED. ON CONTACT ISOLATION FOR MULTIPLE WOUNDS. BED TO LOWEST POSITION AND LOCKED. KEPT HOB ELEVATED.
[2021-10-15] MEDS: PANTOPRAZOLE 40 MG/PACK PACK GT SCH (07:41)
[2021-10-15 07:56] LABS: CALCIUM, SERUM 10.5 mg/dL (8.5-10.1); CREATININE 4.4 mg/dL (0.6-1.3); MAGNESIUM 3.3 mg/dL (1.8-2.4); PHOSPHORUS 4.3 mg/dL (2.5-4.9); POTASSIUM 4.3 mmol/L (3.5-5.1)
[2021-10-15 08:00] VITALS: BP 119/83
[2021-10-15] MEDS: DOCUSATE SODIUM LIQ 100 MG/10 ML UDC GT SCH ×2 (08:10→21:28)
[2021-10-15] MEDS: MULTIVITAMINS,THERAGRAN 1 UDTAB TABLET GT SCH (08:11)
[2021-10-15] MEDS: THERAHONEY GEL 1.5 OZ TUBE TP SCH ×2 (08:11→09:03)
[2021-10-15] MEDS: VIT B CMPLX 3/FA/VIT C/BIOTIN 1 TAB TABLET PO SCH (08:11)
[2021-10-15] MEDS: PROSOURCE / PROSTAT (PYXIS) 30 ML UDC GT SCH (08:11)
[2021-10-15] MEDS: ASCORBIC ACID 500 MG TABLET GT SCH (08:12)
[2021-10-15] MEDS: MIDODRINE HCL (5MG) 5 MG TABLET GT SCH ×3 (08:12→16:56)
[2021-10-15] MEDS: FERROUS SULFATE (325 MG) 325 MG/TAB TABLET GT SCH (08:12)
[2021-10-15] MEDS: METOCLOPRAMIDE HCL 10 MG TABLET GT SCH ×2 (08:12→16:56)
[2021-10-15] MEDS: CHLORHEXIDINE GLUCONATE 15 ML UDC MM SCH ×2 (08:13→21:28)
[2021-10-15] MEDS: NS 0.9% IV SCH (09:03)
[2021-10-15] MEDS: DAPTOMYCIN IV SCH (09:03)
[2021-10-15] MEDS: INSULIN REGULAR, HUMAN 100 UNIT/ML 3 ML VIAL SQ PRN ×2 (11:37→18:11)
[2021-10-15 12:00] VITALS: BP 120/75
[2021-10-15 16:00] VITALS: BP 98/75
--- NOTE | 2021-10-15 18:55 | NUR ---
RN CLOSING NOTES PATIENT LAYING AWAKE IN BED. A/O X0 OBTUNDED. PATIENT WITH REGULAR AND UNLABORED BREATHING ON MECH VENT, TOLERATED SETTINGS WELL. NO SIGNS AND SYMPTOMS OF DISTRESS NOTED AT THIS TIME. NO COMPLAINS OF PAIN OR DISCOMFORT AT THIS TIME. PATIENT ON TELE MONITOR. IV ACCESS ALEX MIDLINE SL. PATIENT HAD DIALYSIS TODAY AND 2LITTERS FLUID TAKEN OUT AND PATIENT TOLERATED WELL. IV ACCESS PATENT AND INTACT. SAFETY PRECAUTIONS ENFORCED WITH BED LOCKED AND AT LOWEST POSITION. SIDERAILS UP X2. CALL LIGHT WITHIN REACH AT ALL TIMES. WILL ENDORSE TO NIGHT NURSE FOR DENNIS.
[2021-10-15 20:00] VITALS: BP 114/84
--- NOTE | 2021-10-15 20:06 | NUR ---
ADMIN ASST OPENING NOTES: RECEIVED PATIENT SLEEP IN BED COMFORTABLY, AROUSABLE TO TACTILE STIMULI, BED IN LOW POSITION CALL LIGHT, WITHIN REACH, NO COMPLAIN OF PAIN AND DISCOMFORT AT THIS TIME, NO FACIAL GRIMACING, ON BED REST,ON RIGHT WRIST SOFT RESTRAINT, SKIN IS INTACT. PATIENT IS OBTUNDED,, NPO ON GTUBE FEEDING OF NEPRO @60ML/HR INFUSING WELL, IV LINE AT ALEX MIDLINE SL, PATIENT KEPT CLEAN AND DRY ALL NEEDSMET WILL CONTINUE TO MONITOR.
[2021-10-15] MEDS: SULFAMETH/TRIMETH 800/160 MG 1 UDTAB TABLET PEG SCH (21:28)
[2021-10-16] VITALS: BP 102/63
--- NOTE | 2021-10-16 00:05 | NUR ---
RN NOTES: BS-103 NO INSULIN GIVEN PER SLIDING SCALE,
[2021-10-16] MEDS: ACETAMINOPHEN 650 MG/20.3 ML UDC GT PRN (00:13)
[2021-10-16 04:00] VITALS: BP 110/79
[2021-10-16] MEDS: SEVELAMER CARBONATE 800 MG POWD.PACK GT SCH ×3 (05:13→20:49)
--- NOTE | 2021-10-16 05:54 | NUR ---
RN NOTES: 0600 BLOOD SUGAR-90 NO INSULIN GIVEN PER SLIDING SCALE
[2021-10-16] MEDS: BLOOD SUGAR DIAGNOSTIC 1 EACH STRIP IN SCH ×4 (06:00→17:47)
--- NOTE | 2021-10-16 06:16 | NUR ---
RN CLOSING NOTES: PATIENT SLEEP IN BED COMFORTABLY, AROUSABLE TO VERBAL STIMULI, ON VENT SATURATING WELL, ON G TUBE FEEDING AT NEPRO AT 60ML/HR INFUSING WELL, WITH RUAML SL PATENT, AND RIGHT FEMORAL HD CATHETER CLEAN AND INTACT NO BLEEDING WAS OBSERVED, PATIENT HOB AT 45 DEGREE AT ALL TIME, SKIN ISSUES CLEAN AND DRESSING CHANGE, ON TELE MONITORING ST-105 WITH PVC NO SYMPTOMS WAS OBSERVED, PATIENT KEPT CLEAN AND DRY ALL NEEDS MET ENDORSE TO INCOMING SHIFT.
[2021-10-16 06:28] LABS: BASOPHILS # (AUTO) 0.1 K/uL (0.0-0.2); BASOPHILS % (AUTO) 0.9 % (0.0-2.0); EOSINOPHILS % (AUTO) 14.5 % (0.0-6.0); HEMATOCRIT 35 % (39-51); HEMOGLOBIN 11.3 g/dL (13.5-17.5); LYMPHOCYTES # (AUTO) 1.5 K/uL (0.8-4.8); LYMPHOCYTES % (AUTO) 13.5 % (20.0-44.0); MEAN CORPUSCULAR HGB CONC 32 g/dl (31.0-36.0); MEAN CORPUSCULAR VOLUME 98 fL (80-96); MONOCYTES # (AUTO) 1.3 K/uL (0.1-1.30); MONOCYTES % (AUTO) 12.2 % (2.0-12.0); NEUTROPHILS # (AUTO) 6.5 K/uL (1.8-8.9); NEUTROPHILS % (AUTO) 58.9 % (43.0-81.0); PLATELET COUNT (AUTO) 247 K/uL (150-450)
[2021-10-16 06:41] LABS: CALCIUM, SERUM 10.3 mg/dL (8.5-10.1); CREATININE 4.3 mg/dL (0.6-1.3); MAGNESIUM 3.2 mg/dL (1.8-2.4); PHOSPHORUS 4.2 mg/dL (2.5-4.9); POTASSIUM 4.3 mmol/L (3.5-5.1)
[2021-10-16] MEDS: NEPRO 1,000 ML BOTTLE GT SCH (06:41)
--- NOTE | 2021-10-16 07:35 | NUR ---
RN OPENING NOTES RECEIVED PATIENT IN BED, OBTUNDED. ON MECHANICAL VENTILATION SETTINGS TOLERATING WELL. RESPIRATORY IS EVEN AND UNLABORED. NO SOB NOTED. NO S/S OF DISTRESS NOTED. IV ACCESS ALEX MIDLINE INTACT PATENT.R FEMORAL HD CATHETER, NO BLEEDING AT SITE. G-TUBE INPLACE, INTACT RUNNING WITH NEPHRO @ 60ML/HR. KEEP HEAD OF BED ELEVATED. NOTED WITH RIGHT SOFT WRIST RESTRAINT AND MITTEN. SAFETY MEASURES PROVIDED. BED IN LOWEST POSITION, LOCKED. BED ALARM ARMED. WILL CONTINUE TO MONITOR.
[2021-10-16 08:00] VITALS: BP 130/88
[2021-10-16] MEDS: MIDODRINE HCL (5MG) 5 MG TABLET GT SCH ×4 (09:00→16:48)
[2021-10-16] MEDS: FERROUS SULFATE (325 MG) 325 MG/TAB TABLET GT SCH (09:01)
[2021-10-16] MEDS: ASCORBIC ACID 500 MG TABLET GT SCH (09:01)
[2021-10-16] MEDS: SULFAMETH/TRIMETH 800/160 MG 1 UDTAB TABLET PEG SCH ×2 (09:01→20:49)
[2021-10-16] MEDS: METOCLOPRAMIDE HCL 10 MG TABLET GT SCH ×2 (09:01→16:45)
[2021-10-16] MEDS: MULTIVITAMINS,THERAGRAN 1 UDTAB TABLET GT SCH (09:01)
[2021-10-16] MEDS: CHLORHEXIDINE GLUCONATE 15 ML UDC MM SCH ×2 (09:01→20:50)
[2021-10-16] MEDS: VIT B CMPLX 3/FA/VIT C/BIOTIN 1 TAB TABLET PO SCH (09:01)
[2021-10-16] MEDS: DOCUSATE SODIUM LIQ 100 MG/10 ML UDC GT SCH ×2 (09:01→20:49)
[2021-10-16] MEDS: PANTOPRAZOLE 40 MG/PACK PACK GT SCH (09:01)
[2021-10-16] MEDS: PROSOURCE / PROSTAT (PYXIS) 30 ML UDC GT SCH (09:05)
[2021-10-16] MEDS: THERAHONEY GEL 1.5 OZ TUBE TP SCH ×2 (09:06→09:13)
[2021-10-16 12:00] VITALS: BP 138/84
[2021-10-16] MEDS: EPOETIN ALFA-EPBX 4,000 UNIT/ML VIAL SQ SCH (15:26)
[2021-10-16 16:00] VITALS: BP 130/84
--- NOTE | 2021-10-16 16:44 | NUR ---
RN NOTE PER PHARMACY, HOLD EPOGEN D/T LOW HGB.
--- NOTE | 2021-10-16 18:29 | NUR ---
RN CLOSING NOTES PATIENT IN BED, OBTUNDED. ON MECHANICAL VENTILATION SETTINGS TOLERATING WELL. RESPIRATORY IS EVEN AND UNLABORED. NO SOB NOTED. NO S/S OF DISTRESS NOTED. IV ACCESS ALEX MIDLINE INTACT PATENT.PT WITH R FEMORAL HD CATHETER, NO BLEEDING AT SITE. G-TUBE IN PLACE, PATENT AND INTACT WITH NEPHRO RUNNING @ 60ML/HR. BILATERAL SOFT RESTRAINTS AND R SOFT MITTEN IN PLACE. SKIN CHECK AND CIRCULATION CHECK DONE FREQUENTLY. SAFETY MEASURES MAINTAINED. WILL ENDORSE CONTINUITY OF CARE TO ONCOMING SHIFT.
--- NOTE | 2021-10-16 19:30 | NUR ---
RN OPENING NOTES RECEIVED PATIENT IN BED, OBTUNDED. ON MECHANICAL VENTILATION, PT TOLERATING SETTINGS WELL. RESPIRATORY IS EVEN AND UNLABORED AT THIS TIME. NO SOB NOTED. NO S/S OF DISTRESS NOTED. IV ACCESS IS AT ALEX MIDLINE INTACT AND PATENT. PT IS WITH RIGHT SOFT WRIST RESTRAINT AND MITTEN. R FEMORAL HD CATHETER, NO BLEEDING AT SITE NOTED. G-TUBE IN PLACE, INTACT AND PATENT, RUNNING WITH NEPRO @ 60ML/HR, TOLERATING WELL AND FLUSHES WELL. KEPT HEAD OF THE BED ELEVATED. ALL SAFETY MEASURES IN PLACE. BED IN LOWEST POSITION, LOCKED. BED ALARM ON. CALL LIGHT WITHIN REACH. WILL CONTINUE TO MONITOR.
[2021-10-16 20:00] VITALS: BP 122/82
[2021-10-17] VITALS: BP 117/75
--- NOTE | 2021-10-17 00:06 | NUR ---
RN NOTE PT BS WAS 107. NO INSULIN GIVEN PER SLIDING SCALE.
[2021-10-17] MEDS: NEPRO 1,000 ML BOTTLE GT SCH ×2 (03:21→23:51)
[2021-10-17 04:00] VITALS: BP 138/72
[2021-10-17] MEDS: SEVELAMER CARBONATE 800 MG POWD.PACK GT SCH ×3 (04:01→21:58)
[2021-10-17] MEDS: BLOOD SUGAR DIAGNOSTIC 1 EACH STRIP IN SCH ×4 (05:58→17:00)
[2021-10-17] MEDS: INSULIN REGULAR, HUMAN 100 UNIT/ML 3 ML VIAL SQ PRN ×3 (06:00→17:16)
[2021-10-17 07:24] LABS: BASOPHILS # (AUTO) 0.1 K/uL (0.0-0.2); BASOPHILS % (AUTO) 0.5 % (0.0-2.0); EOSINOPHILS % (AUTO) 9.7 % (0.0-6.0); HEMATOCRIT 32 % (39-51); HEMOGLOBIN 10.2 g/dL (13.5-17.5); LYMPHOCYTES # (AUTO) 1.3 K/uL (0.8-4.8); LYMPHOCYTES % (AUTO) 10.8 % (20.0-44.0); MEAN CORPUSCULAR HGB CONC 32 g/dl (31.0-36.0); MEAN CORPUSCULAR VOLUME 97 fL (80-96); MONOCYTES # (AUTO) 1.3 K/uL (0.1-1.30); MONOCYTES % (AUTO) 10.7 % (2.0-12.0); NEUTROPHILS # (AUTO) 8.3 K/uL (1.8-8.9); NEUTROPHILS % (AUTO) 68.3 % (43.0-81.0); PLATELET COUNT (AUTO) 242 K/uL (150-450); WHITE BLOOD COUNT (AUTO) 12.1 K/uL (4.3-11.0)
--- NOTE | 2021-10-17 07:30 | NUR ---
RN OPENING NOTE PT OBSERVED IN BED WITH HOB 30 DEGREES. PT IS ON MECHANICAL VENT WITH ALL PRESCRIBED SETTINGS TOLERATING WELL WITH NO SIGNS OF DISTRESS OR LABORED BREATHING 99%. PT IS A/OX1 AND NON VERBAL. PT HAS R SOFT WRIST RESTRAINT AND MITTEN. GTUBE IS IN PLACE INFUSING WITH NEPRO @60ML/HR >20 RESIDUAL[address] FC IS IN PLACE AND PT IS ANURIC. PT WILL BE HAVING HD TODAY. IV ACCESS R UA MIDLINE AND R FEM HD CATH. BED IS LOCKED IN LOWEST POSITION X3 BED RAILS UP AND ALL HOSPITAL SAFETY MEASURES ARE IN PLACE. WILL CONTINUE TO MONITOR THIS SHIFT.
[2021-10-17 07:40] LABS: CALCIUM, SERUM 10.2 mg/dL (8.5-10.1); CREATININE 5.8 mg/dL (0.6-1.3); MAGNESIUM 3.6 mg/dL (1.8-2.4); PHOSPHORUS 5.1 mg/dL (2.5-4.9); POTASSIUM 4.4 mmol/L (3.5-5.1)
--- NOTE | 2021-10-17 07:41 | NUR ---
RN CLOSING NOTES PATIENT IN BED, SLEEPING. A/O X 0, OBTUNDED. PT WITH REGULAR AND UNLABORED BREATHING ON MECH VENT, TOLERATING SETTINGS WELL. NO SIGNS AND SYMPTOMS OF ACUTE DISTRESS NOTED. NO COMPLAINS OF PAIN OR DISCOMFORT. ST ON TELE MONITOR WITH HR OF 120s . IV ACCESS NOTED IN ALEX MIDLINE, PATENT AND INTACT. GT IN PLACE, INTACT AND TOLERATING WELL AT 60 CC/HR. NO RESIDUAL NOTED. KEPT PT CLEAN AND DRY. TURNED AND REPOSITIONED. ALL DUE MEDS GIVEN. ALL SAFETY PRECAUTIONS ENFORCED WITH BED LOCKED AND AT LOWEST POSITION. SIDERAILS UP X2. CALL LIGHT WITHIN REACH AT ALL TIMES. WILL ENDORSE TO AM SHIFT NURSE FOR DENNIS.
[2021-10-17 08:00] VITALS: BP 132/84
[2021-10-17] MEDS: PANTOPRAZOLE 40 MG/PACK PACK GT SCH (08:49)
[2021-10-17] MEDS: MIDODRINE HCL (5MG) 5 MG TABLET GT SCH ×3 (08:50→16:17)
[2021-10-17] MEDS: DOCUSATE SODIUM LIQ 100 MG/10 ML UDC GT SCH ×2 (08:50→21:58)
[2021-10-17] MEDS: VIT B CMPLX 3/FA/VIT C/BIOTIN 1 TAB TABLET PO SCH (08:50)
[2021-10-17] MEDS: FERROUS SULFATE (325 MG) 325 MG/TAB TABLET GT SCH (08:50)
[2021-10-17] MEDS: CHLORHEXIDINE GLUCONATE 15 ML UDC MM SCH ×2 (08:50→21:58)
[2021-10-17] MEDS: MULTIVITAMINS,THERAGRAN 1 UDTAB TABLET GT SCH (08:50)
[2021-10-17] MEDS: ASCORBIC ACID 500 MG TABLET GT SCH (08:51)
[2021-10-17] MEDS: METOCLOPRAMIDE HCL 10 MG TABLET GT SCH ×2 (08:51→16:17)
[2021-10-17] MEDS: SULFAMETH/TRIMETH 800/160 MG 1 UDTAB TABLET PEG SCH ×2 (08:51→21:58)
[2021-10-17] MEDS: PROSOURCE / PROSTAT (PYXIS) 30 ML UDC GT SCH (08:55)
[2021-10-17] MEDS: THERAHONEY GEL 1.5 OZ TUBE TP SCH ×2 (08:55)
--- NOTE | 2021-10-17 11:44 | NUR ---
RN NOTE: GLUCOSE PT BS 99. PER SLIDING SCALE, NO COVERAGE NEEDED AT THIS TIME.
[2021-10-17 12:00] VITALS: BP 100/80
[2021-10-17] MEDS: ALBUMIN 25% 25 GM in PREMIX 1 EA IV PRN (12:01)
--- NOTE | 2021-10-17 12:26 | NUR ---
RN NOTE PT CURRENTLY RECEIVING HD BP 100/80. WILL HOLD BP MED AT THIS TIME.
--- NOTE | 2021-10-17 13:24 | NUR ---
RN NOTE: HD PT COMPLETED HD -2L. BP IS STABLE AT THIS TIME AND DID NOT NEED ALBUMIN.
[2021-10-17] MEDS: DAPTOMYCIN IV SCH (13:25)
[2021-10-17] MEDS: NS 0.9% IV SCH (13:25)
[2021-10-17 16:00] VITALS: BP 117/81
[2021-10-17] MEDS ORDERED: IV NS 0.9% 250 ML IV PRN (17:00)
--- NOTE | 2021-10-17 17:16 | NUR ---
RN NOTE: GLUCOSE PT BS 89. PER SLIDING SCALE, NO COVERAGE NEEDED AT THIS TIME.
--- NOTE | 2021-10-17 18:46 | NUR ---
RN CLOSING NOTE PT IS IN BED WITH HOB 30 DEGREES. PT IS ON MECHANICAL VENT WITH ALL PRESCRIBED SETTINGS TOLERATING WELL WITH NO SIGNS OF DISTRESS OR LABORED BREATHING 99%. PT IS A/OX1 AND NON VERBAL. PT HAS R SOFT WRIST RESTRAINT AND MITTEN. GTUBE IS IN PLACE INFUSING WITH NEPRO @60ML/HR >20 RESIDUAL. PT HAD HD TODAY -2L. IV ACCESS R UA MIDLINE AND R FEM HD CATH. BED IS LOCKED IN LOWEST POSITION X3 BED RAILS UP AND ALL HOSPITAL SAFETY MEASURES ARE IN PLACE. WILL ENDORSE TO URBAN SOCIOLOGIST NURSE FOR DENNIS.
--- NOTE | 2021-10-17 19:31 | NUR ---
RN OPENING NOTE PATIENT AWAKE IN BED. OBTUNDED W/ EYE OPENING. NO S/S OF DISTRESS, BREATHING BY VENT W/O DIFFICULTY. ALEX MIDLINE TKO INTACT AND PATENT. TELE MONITOR REVEALS ST 115. NEPRO 60ML/HR. SAFETY MEASURES IN PLACE: BED AT LOWEST POSITION, LOCKED, RAILS UP X3, CALL COATES WITHIN REACH. WILL CONTINUE TO MONITOR PATIENT.
[2021-10-17 20:00] VITALS: BP 125/78
[2021-10-17] MEDS: LORAZEPAM 1 MG TABLET GT PRN (23:51)
[2021-10-18] VITALS: BP 118/80
[2021-10-18] MEDS: BLOOD SUGAR DIAGNOSTIC 1 EACH STRIP IN SCH ×5 (00:11→23:47)
[2021-10-18] MEDS: INSULIN REGULAR, HUMAN 100 UNIT/ML 3 ML VIAL SQ PRN ×4 (00:16→23:48)
[2021-10-18 04:00] VITALS: BP 115/69
[2021-10-18] MEDS: SEVELAMER CARBONATE 800 MG POWD.PACK GT SCH ×3 (05:02→20:58)
--- NOTE | 2021-10-18 06:56 | NUR ---
RN CLOSING NOTE PATIENT ASLEEP IN BED. OBTUNDED W/ EYE OPENING. NO S/S OF DISTRESS; BREATHING BY VENT W/O DIFFICULTY. ALEX MIDLINE SL INTACT AND PATENT. TELE MONITOR INEFFECTIVE - WAXER TENDER MADE AWARE. NO READING FOR NOW. SAFETY MEASURES IN PLACE: BED AT LOWEST POSITION, LOCKED, RAILS UP X3, CALL COATES WITHIN REACH. WILL ENDORSE TO NEXT SHIFT FOR DENNIS.
[2021-10-18 07:13] LABS: CALCIUM, SERUM 10.2 mg/dL (8.5-10.1); MAGNESIUM 3.5 mg/dL (1.8-2.4); POTASSIUM 4.6 mmol/L (3.5-5.1)
[2021-10-18 07:23] LABS: BASOPHILS # (AUTO) 0.1 K/uL (0.0-0.2); BASOPHILS % (AUTO) 0.7 % (0.0-2.0); EOSINOPHILS % (AUTO) 9.9 % (0.0-6.0); HEMATOCRIT 35 % (39-51); HEMOGLOBIN 11.1 g/dL (13.5-17.5); LYMPHOCYTES % (AUTO) 13.1 % (20.0-44.0); MEAN CORPUSCULAR HGB CONC 32 g/dl (31.0-36.0); MEAN CORPUSCULAR VOLUME 98 fL (80-96); MONOCYTES # (AUTO) 1.6 K/uL (0.1-1.30); MONOCYTES % (AUTO) 10.6 % (2.0-12.0); NEUTROPHILS % (AUTO) 65.7 % (43.0-81.0); PLATELET COUNT (AUTO) 278 K/uL (150-450); RED BLOOD CELL COUNT(AUTO) 3.58 MIL/uL (4.5-6.0); WHITE BLOOD COUNT (AUTO) 15.3 K/uL (4.3-11.0)
--- NOTE | 2021-10-18 07:30 | NUR ---
RN OPENING NOTE PT IS IN BED WITH HOB 30 DEGREES. PT IS ON MECHANICAL VENT WITH ALL PRESCRIBED SETTINGS TOLERATING WELL WITH NO SIGNS OF DISTRESS OR LABORED BREATHING 100%. PT IS A/OX1 AND NON VERBAL. PT HAS R SOFT WRIST RESTRAINT AND MITTEN. GTUBE IS IN PLACE INFUSING WITH NEPRO @60ML/HR. PT IS ANURIC AND HAD HD YESTERDAY -2L. IV ACCESS R UA MIDLINE AND R FEM HD CATH. POSSIBLE PLACEMENT FOR HD CHEST PERM ON TUESDAY BY DR. CARTER. BED IS LOCKED IN LOWEST POSITION X3 BED RAILS UP AND ALL HOSPITAL SAFETY MEASURES ARE IN PLACE. WILL CONTINUE TO MONITOR THIS SHIFT.
[2021-10-18] MEDS: PANTOPRAZOLE 40 MG/PACK PACK GT SCH (07:57)
[2021-10-18 08:00] VITALS: BP 115/81
[2021-10-18] MEDS: VIT B CMPLX 3/FA/VIT C/BIOTIN 1 TAB TABLET PO SCH (09:32)
[2021-10-18] MEDS: FERROUS SULFATE (325 MG) 325 MG/TAB TABLET GT SCH (09:32)
[2021-10-18] MEDS: PROSOURCE / PROSTAT (PYXIS) 30 ML UDC GT SCH (09:32)
[2021-10-18] MEDS: CHLORHEXIDINE GLUCONATE 15 ML UDC MM SCH ×2 (09:32→20:58)
[2021-10-18] MEDS: DOCUSATE SODIUM LIQ 100 MG/10 ML UDC GT SCH ×2 (09:32→20:58)
[2021-10-18] MEDS: SULFAMETH/TRIMETH 800/160 MG 1 UDTAB TABLET PEG SCH ×2 (09:32→20:58)
[2021-10-18] MEDS: METOCLOPRAMIDE HCL 10 MG TABLET GT SCH ×2 (09:33→16:55)
[2021-10-18] MEDS: ASCORBIC ACID 500 MG TABLET GT SCH (09:35)
[2021-10-18] MEDS: MULTIVITAMINS,THERAGRAN 1 UDTAB TABLET GT SCH (09:35)
[2021-10-18] MEDS: THERAHONEY GEL 1.5 OZ TUBE TP SCH ×2 (09:35)
[2021-10-18] MEDS: MIDODRINE HCL (5MG) 5 MG TABLET GT SCH ×3 (09:44→16:55)
[2021-10-18 12:00] VITALS: BP 100/73
--- NOTE | 2021-10-18 12:53 | NUR ---
RN NOTE: GLUCOSE PT BS 113. PER SLIDING SCALE, NO COVERAGE NEEDED AT THIS TIME.
--- NOTE | 2021-10-18 14:00 | NUR ---
RN NOTE: PERMCATH PLACEMENT & CONSENT PT SCHEDULED FOR PERMCATH PLACEMENT TOMORROW (10/19) IN THE AFTERNOON. PT WILL BE PLACED NPO AFTER MIDNIGHT. TWO RN CONSENT OBTAINED VIA TELEPHONE FROM SEN LORENZ AND HAS BEEN PLACED IN THE CHART.
--- NOTE | 2021-10-18 15:05 | NUR ---
RN NOTE: FC CONSENT RECEIVED CALL FROM ANESTHESIOLOGIST REQUESTING TO CONTACT PT SON, SEN [phone] AND ASK FOR CONSENT TO REVERSE DNR STATUS FOR 24 HOURS POST PROCEDURE. THIS NURSE LEFT MESSAGE FOR SON ON CELL PHONE STATING REQUEST FROM ANESTHESIOLOGIST AND ALSO STATED THAT SON WOULD BE RECEIVING A PHONE CALL FROM ANESTHESIOLOGIST BETWEEN 10AM - 12PM BEFORE PROCEDURE.
[2021-10-18 15:13] LABS: CALCIUM, SERUM 10.7 mg/dL (8.5-10.1); POTASSIUM 4.8 mmol/L (3.5-5.1)
[2021-10-18 15:37] LABS: CREATININE 5.5 mg/dL (0.6-1.3)
[2021-10-18 16:00] VITALS: BP 107/74
[2021-10-18] MEDS: ACETAMINOPHEN 650 MG/20.3 ML UDC GT PRN (16:55)
--- NOTE | 2021-10-18 17:55 | NUR ---
RN NOTE: GLUCOSE PT BS 118. PER SLIDING SCALE, NO COVERAGE NEEDED AT THIS TIME.
--- NOTE | 2021-10-18 18:54 | NUR ---
RN NOTE: TELEPHONE CONTACT MADE CALL WITH SON, SEN AND HE STATED THAT HE DID NOT WANT PT TO HAVE DNR STATUS AND TO BE FC. THIS NURSE CALLED DAUGHTER, NEFTALYI WHO IS POA. DID NOT MAKE CONTACT AND LEFT MESSAGE TO CALL BACK.
--- NOTE | 2021-10-18 19:07 | NUR ---
RN CLOSING NOTE PT IS IN BED WITH HOB 30 DEGREES. PT IS ON MECHANICAL VENT WITH ALL PRESCRIBED SETTINGS TOLERATING WELL WITH NO SIGNS OF DISTRESS OR LABORED BREATHING 100%. PT IS A/OX1 AND NON VERBAL. PT HAS R SOFT WRIST RESTRAINT AND MITTEN. GTUBE IS IN PLACE INFUSING WITH NEPRO @60ML/HR. PT IS ANURIC AND NO HD TODAY. IV ACCESS R UA MIDLINE AND R FEM HD CATH. PT WILL BE NPO AFTER MIDNIGHT AND SCHEDULED FOR PERMCATH TOMORROW AFTERNOON. BED IS LOCKED IN LOWEST POSITION X3 BED RAILS UP AND ALL HOSPITAL SAFETY MEASURES ARE IN PLACE. WILL ENDORSE TO PAINTINGS RESTORER NURSE FOR DENNIS.
--- NOTE | 2021-10-18 19:55 | NUR ---
yard hostler Opening Note Pt received lying in bed obtunded with eyes open. Pt is on trach with FIO2 at 30 and PEEP at 5.0; pt tolerating vent settings well. No s/s of respiratory distress, nonlabored breathing. Pt's GTF Nepro at 60 ml/hr; Gtube dressing is patent, intact, non-soiled. On right soft wrist restraint and right mitten; strong right arm movement. ALEX midline and right femoral HD catheter are patent, intact. Side rails x3 up, bed in lowest position, call light within reach. NPO after midnight for permacath placement on 10/19. Will continue to monitor throughout the night.
[2021-10-18 20:00] VITALS: BP 121/83
[2021-10-18] MEDS: LORAZEPAM 1 MG TABLET GT PRN (20:58)
[2021-10-19] VITALS: BP 118/82
[2021-10-19 04:00] VITALS: BP 120/81
[2021-10-19] MEDS: SEVELAMER CARBONATE 800 MG POWD.PACK GT SCH ×3 (05:00→21:33)
[2021-10-19 06:02] LABS: BASOPHILS # (AUTO) 0.1 K/uL (0.0-0.2); BASOPHILS % (AUTO) 0.6 % (0.0-2.0); HEMATOCRIT 32 % (39-51); HEMOGLOBIN 10.3 g/dL (13.5-17.5); LYMPHOCYTES # (AUTO) 1.4 K/uL (0.8-4.8); LYMPHOCYTES % (AUTO) 7.9 % (20.0-44.0); MEAN CORPUSCULAR HGB CONC 32 g/dl (31.0-36.0); MEAN CORPUSCULAR VOLUME 96 fL (80-96); MONOCYTES # (AUTO) 1.8 K/uL (0.1-1.30); MONOCYTES % (AUTO) 9.9 % (2.0-12.0); NEUTROPHILS # (AUTO) 13.3 K/uL (1.8-8.9); NEUTROPHILS % (AUTO) 73.6 % (43.0-81.0); PLATELET COUNT (AUTO) 273 K/uL (150-450); RED BLOOD CELL COUNT(AUTO) 3.36 MIL/uL (4.5-6.0); WHITE BLOOD COUNT (AUTO) 18.1 K/uL (4.3-11.0)
[2021-10-19] MEDS: BLOOD SUGAR DIAGNOSTIC 1 EACH STRIP IN SCH ×3 (06:19→17:13)
[2021-10-19] MEDS: INSULIN REGULAR, HUMAN 100 UNIT/ML 3 ML VIAL SQ PRN ×3 (06:19→17:13)
--- NOTE | 2021-10-19 06:45 | NUR ---
can line examiner Closing Note Pt in bed with HOB elevated at 30 degree, 3x side rails up, bed in lowest position, bed locked. Pt remains on vent and tolerating vent settings well; no s/s of respiratory distress, non-labored breathing, O2sat 100% throughout the night. Remained sinus tachycardia. VSS. Nepro stopped at 0000 to ensure NPO status for permacath placement on 10/19. BG within normal limits. Wound dressing performed and pictures taken. Will endorse care to dayshift nurse.
[2021-10-19 07:21] LABS: CALCIUM, SERUM 10.5 mg/dL (8.5-10.1); CREATININE 6.5 mg/dL (0.6-1.3); MAGNESIUM 3.8 mg/dL (1.8-2.4); POTASSIUM 5.5 mmol/L (3.5-5.1)
[2021-10-19] MEDS: PANTOPRAZOLE 40 MG/PACK PACK GT SCH (07:30)
--- NOTE | 2021-10-19 07:31 | NUR ---
RN OPENING NOTE PT IS IN BED WITH HOB 30 DEGREES. PT IS ON MECHANICAL VENT WITH ALL PRESCRIBED SETTINGS TOLERATING WELL WITH NO SIGNS OF DISTRESS OR LABORED BREATHING 100%. PT IS A/OX1 AND NON VERBAL. PT HAS R SOFT WRIST RESTRAINT AND MITTEN RENEWAL DATE 10/19. GTUBE IS IN PLACE, PATIENT IS NPO, WILL HAVE TUNNELED CATH REPLACED TODAY, CONSENT IS IN CHART. PT IS ANURIC ON HD. IV ACCESS R UA MIDLINE AND R FEM HD CATH. SAFETY MEASURE IN PLACE. BED IS LOCKED IN LOWEST POSITION X3 BED RAILS UP AND ALL HOSPITAL SAFETY MEASURES ARE IN PLACE.
[2021-10-19 08:00] VITALS: BP 107/58
--- NOTE | 2021-10-19 08:00 | NUR ---
RN NOTE PATIENT NPO FOR PROCEDURE
[2021-10-19] MEDS: FERROUS SULFATE (325 MG) 325 MG/TAB TABLET GT SCH (08:21)
[2021-10-19] MEDS: PROSOURCE / PROSTAT (PYXIS) 30 ML UDC GT SCH (08:21)
[2021-10-19] MEDS: DOCUSATE SODIUM LIQ 100 MG/10 ML UDC GT SCH ×2 (08:21→21:33)
[2021-10-19] MEDS: MIDODRINE HCL (5MG) 5 MG TABLET GT SCH ×3 (08:21→17:00)
[2021-10-19] MEDS: SULFAMETH/TRIMETH 800/160 MG 1 UDTAB TABLET PEG SCH ×2 (08:22→21:33)
[2021-10-19] MEDS: ASCORBIC ACID 500 MG TABLET GT SCH (08:22)
[2021-10-19] MEDS: METOCLOPRAMIDE HCL 10 MG TABLET GT SCH ×2 (08:22→17:13)
[2021-10-19] MEDS: MULTIVITAMINS,THERAGRAN 1 UDTAB TABLET GT SCH (08:22)
[2021-10-19] MEDS: VIT B CMPLX 3/FA/VIT C/BIOTIN 1 TAB TABLET PO SCH (08:22)
[2021-10-19] MEDS: THERAHONEY GEL 1.5 OZ TUBE TP SCH ×2 (08:27)
[2021-10-19] MEDS: CHLORHEXIDINE GLUCONATE 15 ML UDC MM SCH ×2 (08:27→21:33)
--- NOTE | 2021-10-19 10:47 | NUR ---
RN NOTE PER PROVIDER LW, RESUME TUBE FEEDING PROCEDURE HAS BEEN CANCELED DUE TO PATIENT RUNNING A LOW GRADE FEVER, AND INCREASE IN WBC COUNT. NPO STATUS REMOVED, RESUME TUBE FEEDING ORDER PLACED.
--- NOTE | 2021-10-19 11:38 | NUR ---
RN NOTE RECEIVED CALL FROM DAUGHTER MAC MCNEIL PATIENTS POA. CONFIRMING PATIENTS DNR STATUS.
[2021-10-19 12:00] VITALS: BP 115/81
[2021-10-19] MEDS: ALBUMIN 25% 25 GM in PREMIX 1 EA IV PRN (13:56)
[2021-10-19] MEDS: EPOETIN ALFA-EPBX 4,000 UNIT/ML VIAL SQ SCH (15:39)
[2021-10-19 16:00] VITALS: BP 87/64
--- NOTE | 2021-10-19 16:06 | NUR ---
RN NOTE PATIENTS BLOOD PRESSURE NOTED TO BE 87/64, PATIENT IS CURRENTLY HAVING HD.
[2021-10-19] MEDS: NEPRO 1,000 ML BOTTLE GT SCH (17:14)
--- NOTE | 2021-10-19 18:42 | NUR ---
RN CLOSING NOTE PT IS IN BED WITH HOB 30 DEGREES. PT IS ON MECHANICAL VENT WITH ALL PRESCRIBED SETTINGS TOLERATING WELL WITH NO SIGNS OF DISTRESS OR LABORED BREATHING 100%. PT IS A/OX1 AND NON VERBAL. PT HAS R SOFT WRIST RESTRAINT AND MITTEN. GTUBE IS IN PLACE INFUSING WITH NEPRO @60ML/HR. PT IS ANURIC AND HAD HD TODAY. IV ACCESS R UA MIDLINE AND R FEM HD CATH. BED IS LOCKED IN LOWEST POSITION X3 BED RAILS UP AND ALL HOSPITAL SAFETY MEASURES ARE IN PLACE. WILL ENDORSE TO EQUIPMENT MAINTENANCE ENGINEER NURSE FOR DENNIS.
--- NOTE | 2021-10-19 19:45 | NUR ---
RN NOTE PATIENT OBTUNDED IN BED, RESPONSIVE TO STIMULI. ON TRACH TO VENT, TOLERATING PRESCRIBED SETTINGS WELL. NO S/S OF RESPIRATORY DISTRESS. ON TELE MONITOR, ST 107. G-TUBE FEEDING RESUMED TODAY, ON NEPRO @ 60ML/HR. NO RESIDUAL NOTED. IV ACCESS ON ALEX MIDLINE, PATENT AND INTACT. HD RIGHT FEMORAL CATH INTACT, DRESSING DRY AND CLEAN. BED LOCKED AND IN LOWEST POSITION. CALL LIGHT WITHIN. WILL CONTINUE TO MONITOR.
[2021-10-19 20:00] VITALS: BP 98/72
[2021-10-20] VITALS: BP 107/57
[2021-10-20] MEDS: BLOOD SUGAR DIAGNOSTIC 1 EACH STRIP IN SCH ×4 (00:13→17:16)
[2021-10-20] MEDS: INSULIN REGULAR, HUMAN 100 UNIT/ML 3 ML VIAL SQ PRN ×4 (00:14→17:16)
[2021-10-20 04:00] VITALS: BP 106/71
[2021-10-20] MEDS: SEVELAMER CARBONATE 800 MG POWD.PACK GT SCH ×3 (05:34→21:21)
[2021-10-20 06:58] LABS: CALCIUM, SERUM 10.8 mg/dL (8.5-10.1); CREATININE 4.7 mg/dL (0.6-1.3); MAGNESIUM 3.4 mg/dL (1.8-2.4); PHOSPHORUS 5.1 mg/dL (2.5-4.9); POTASSIUM 4.5 mmol/L (3.5-5.1)
[2021-10-20 06:59] LABS: BASOPHILS # (AUTO) 0.1 K/uL (0.0-0.2); BASOPHILS % (AUTO) 0.7 % (0.0-2.0); EOSINOPHILS % (AUTO) 7.8 % (0.0-6.0); HEMATOCRIT 37 % (39-51); HEMOGLOBIN 11.7 g/dL (13.5-17.5); LYMPHOCYTES # (AUTO) 1.1 K/uL (0.8-4.8); MEAN CORPUSCULAR HGB CONC 32 g/dl (31.0-36.0); MEAN CORPUSCULAR VOLUME 98 fL (80-96); MONOCYTES # (AUTO) 1.6 K/uL (0.1-1.30); MONOCYTES % (AUTO) 10.7 % (2.0-12.0); NEUTROPHILS # (AUTO) 11.3 K/uL (1.8-8.9); NEUTROPHILS % (AUTO) 73.8 % (43.0-81.0); PLATELET COUNT (AUTO) 298 K/uL (150-450); RED BLOOD CELL COUNT(AUTO) 3.76 MIL/uL (4.5-6.0); WHITE BLOOD COUNT (AUTO) 15.2 K/uL (4.3-11.0)
[2021-10-20] MEDS: PANTOPRAZOLE 40 MG/PACK PACK GT SCH (07:30)
--- NOTE | 2021-10-20 07:43 | NUR ---
RN NOTE PATIENT OBTUNDED IN BED. ON TRACH TO VENT, TOLERATING PRESCRIBED SETTINGS WELL. NO S/S OF RESPIRATORY DISTRESS. ON NEPRO @ 60ML/HR. NO RESIDUAL NOTED. HEAD OF BED REMAINS ELEVATED. NOTED WITH BLOOD TINGED EMESIS AT THIS TIME. REPORTED TO DAY SHIFT NURSE. IV ACCESS ON ALEX MIDLINE, PATENT AND INTACT. HD RIGHT FEMORAL CATH INTACT, DRESSING DRY AND CLEAN. BED LOCKED AND IN LOWEST POSITION. CALL LIGHT WITHIN. ENDORSED TO AM SHIFT.
--- NOTE | 2021-10-20 07:58 | NUR ---
RN OPENING NOTE PT IS IN BED WITH HOB 30 DEGREES. PT IS ON MECHANICAL VENT WITH ALL PRESCRIBED SETTINGS TOLERATING WELL WITH NO SIGNS OF DISTRESS OR LABORED BREATHING 100%. PT IS A/OX1 AND NON VERBAL. PT HAS R SOFT WRIST RESTRAINT AND MITTEN. GTUBE IS IN PLACE. NOTED TO HAVE ONE EPISODE OF COFFEE GROUND EMESIS. WILL INFORM PROVIDER. IV ACCESS R UA MIDLINE INTACT AND PATENT WITH NO SIGNS OF INFILTRATION. WITH R FEM HD CATH INTACT AND COVERED WITH DRY DRESSING. SAFETY MEASURE IN PLACE. BED IS LOCKED IN LOWEST POSITION X3 BED RAILS UP AND ALL HOSPITAL SAFETY MEASURES ARE IN PLACE.
[2021-10-20 08:00] VITALS: BP 124/83
--- NOTE | 2021-10-20 08:02 | NUR ---
WOUND CARE CONSULT: PT SEEN FOR RT BUTTOCK SCARRING WITH SOME OPEN SKIN OVER SCARRING. AREA IS PROTECTED WITH FOAM DRESSING. 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 DISCUSSED SKIN PROTECTION WITH NURSING STAFF AND WITH SURGICAL P.A. CURRENTLY ON CASE. IN AGREEMENT WITH PLAN OF CARE.
[2021-10-20] MEDS: SULFAMETH/TRIMETH 800/160 MG 1 UDTAB TABLET PEG SCH ×2 (09:20→21:21)
[2021-10-20] MEDS: METOCLOPRAMIDE HCL 10 MG TABLET GT SCH ×2 (09:20→17:14)
[2021-10-20] MEDS: VIT B CMPLX 3/FA/VIT C/BIOTIN 1 TAB TABLET PO SCH (09:21)
[2021-10-20] MEDS: MULTIVITAMINS,THERAGRAN 1 UDTAB TABLET GT SCH (09:21)
[2021-10-20] MEDS: FERROUS SULFATE (325 MG) 325 MG/TAB TABLET GT SCH (09:21)
[2021-10-20] MEDS: MIDODRINE HCL (5MG) 5 MG TABLET GT SCH ×3 (09:21→17:14)
[2021-10-20] MEDS: CHLORHEXIDINE GLUCONATE 15 ML UDC MM SCH ×2 (09:22→21:21)
[2021-10-20] MEDS: DOCUSATE SODIUM LIQ 100 MG/10 ML UDC GT SCH ×2 (09:22→21:21)
[2021-10-20] MEDS: PROSOURCE / PROSTAT (PYXIS) 30 ML UDC GT SCH (09:30)
[2021-10-20] MEDS: THERAHONEY GEL 1.5 OZ TUBE TP SCH ×2 (09:32)
[2021-10-20] MEDS: ASCORBIC ACID 500 MG TABLET GT SCH (09:32)
--- NOTE | 2021-10-20 10:30 | NUR ---
RN NOTE DR KEBEDE INFORMED PATIENTS BROWN EMESIS X2. ORDERED TO STOP TUBE FEEDING AND RESUME IN AM 0600. ORDERED FOLLOW THROUGH.
[2021-10-20 12:00] VITALS: BP 120/84
[2021-10-20 16:00] VITALS: BP 125/88
--- NOTE | 2021-10-20 18:18 | NUR ---
RN CLOSING NOTE PT IS IN BED WITH HOB 30 DEGREES. PT IS ON MECHANICAL VENT WITH ALL PRESCRIBED SETTINGS TOLERATING WELL WITH NO SIGNS OF DISTRESS OR LABORED BREATHING 100%. PT IS A/OX1 AND NON VERBAL. PT HAS R SOFT WRIST RESTRAINT AND MITTEN. GTUBE IS IN PLACE, INSERTION SITE COVERED WITH DRY INTACT DRESSING. IV ACCESS RIGHT UA MIDLINE INTACT AND PATENT WITH NO SIGNS OF INFILTRATION. WITH R FEM HD CATH INTACT AND COVERED WITH DRY DRESSING. BED IS LOCKED IN LOWEST POSITION X3 BED RAILS UP AND ALL HOSPITAL SAFETY MEASURES ARE IN PLACE. ALL DUE MEDICATIONS GIVEN AND PATIENT REMAINED STABLE THROUGHOUT SHIFT. WILL ENDORSE TO PLUG SAW OPERATOR RN.
--- NOTE | 2021-10-20 19:05 | NUR ---
RN OPENING NOTES RECEIVED PATIENT ON BED, AWAKE, OBTUNDED. ON MECHANICAL VENTILATION SETTINGS TOLERATED WELL. RESPIRATORY EVEN AND UNLABORED, NO SOB NOTED. REMAIN AFEBRILE. NO S/S OF DISTRESS NOTED. NOTED WITH ALEX MID LINE INTACT PATENT, FLUSHED WITH NS. NO INFILTRATION NOTED AT SITE. LEFT FEMORAL HD CATHETER, NO BLEEDING AT SITE. G-TUBE INPLACED, INTACT. VERIFIED PLACEMENT VIA AUSCULTATION. NO RESIDUAL NOTED UPON ASPIRATION, TUBE FEEDING ON HOLD UNTIL 0600 (10/21/21). NOTED WITH RIGHT SOFT WRIST RESTRAINT AND MITTEN. SAFETY MEASURE PROVIDED. BED IN LOWEST POSITION, LOCKED. BED ALARM ARMED. CONTINUE TO MONITOR.
[2021-10-20 20:00] VITALS: BP 132/92
[2021-10-20] MEDS: ACETAMINOPHEN 650 MG/20.3 ML UDC GT PRN (21:22)
--- NOTE | 2021-10-20 21:22 | NUR ---
RN NOTES NOTED WITH TEMPERATURE 99.8 FAHRENHEIT, BODY COOLING MEASURE PROVIDED. ACETAMINOPHEN 650MG GIVEN PER MD'S ORDERED.
--- NOTE | 2021-10-20 22:00 | NUR ---
RN NOTES TEMPERATURE RECHECKED AND OBTAINED 99.2 FAHRENHEIT. CONTINUE TO DO COOLING MEASURE. CONTINUE TO MONITOR.
[2021-10-21] VITALS: BP 119/47
[2021-10-21] MEDS: BLOOD SUGAR DIAGNOSTIC 1 EACH STRIP IN SCH ×4 (00:38→17:26)
[2021-10-21] MEDS: INSULIN REGULAR, HUMAN 100 UNIT/ML 3 ML VIAL SQ PRN ×2 (00:40→06:14)
--- NOTE | 2021-10-21 00:43 | NUR ---
RN NOTES BLOOD SUGAR 103 mg/dL, NO INSULIN COVERAGE PER SLIDING SCALE.
[2021-10-21 04:00] VITALS: BP 125/59
[2021-10-21] MEDS: SEVELAMER CARBONATE 800 MG POWD.PACK GT SCH ×3 (04:59→20:05)
[2021-10-21] MEDS: NEPRO 1,000 ML BOTTLE GT SCH (06:06)
--- NOTE | 2021-10-21 06:15 | NUR ---
RN NOTES BLOOD SUGAR 115 mg/dL, NO INSULIN COVERAGE PER SLIDING SCALE.
[2021-10-21 06:43] LABS: BASOPHILS # (AUTO) 0.1 K/uL (0.0-0.2); BASOPHILS % (AUTO) 0.8 % (0.0-2.0); EOSINOPHILS % (AUTO) 2.1 % (0.0-6.0); HEMATOCRIT 37 % (39-51); HEMOGLOBIN 11.7 g/dL (13.5-17.5); LYMPHOCYTES # (AUTO) 1.5 K/uL (0.8-4.8); LYMPHOCYTES % (AUTO) 8.4 % (20.0-44.0); MEAN CORPUSCULAR HGB CONC 32 g/dl (31.0-36.0); MEAN CORPUSCULAR VOLUME 97 fL (80-96); MONOCYTES % (AUTO) 11.3 % (2.0-12.0); NEUTROPHILS # (AUTO) 13.7 K/uL (1.8-8.9); NEUTROPHILS % (AUTO) 77.4 % (43.0-81.0); PLATELET COUNT (AUTO) 283 K/uL (150-450); RED BLOOD CELL COUNT(AUTO) 3.83 MIL/uL (4.5-6.0); WHITE BLOOD COUNT (AUTO) 17.7 K/uL (4.3-11.0)
--- NOTE | 2021-10-21 06:57 | NUR ---
RN NOTES NO SIGNIFICANT CHANGES THROUGH OUT THE SHIFT. RESPIRATORY EVEN AND UNLABORED, NO SOB NOTED. REMAIN AFEBRILE. NO S/S OF DISTRESS NOTED. LEFT FEMORAL HD CATHETER, NO BLEEDING AT SITE. NOTED WITH RIGHT SOFT WRIST RESTRAINT AND MITTEN. ALL DUE MEDS GIVEN ORDERED. SAFETY MEASURE PROVIDED. BED IN LOWEST POSITION, LOCKED. BED ALARM ARMED. CONTINUE TO MONITOR.
[2021-10-21 06:58] LABS: CALCIUM, SERUM 10.9 mg/dL (8.5-10.1); CREATININE 6.7 mg/dL (0.6-1.3); MAGNESIUM 3.7 mg/dL (1.8-2.4); PHOSPHORUS 6.4 mg/dL (2.5-4.9); POTASSIUM 5.6 mmol/L (3.5-5.1)
--- NOTE | 2021-10-21 07:26 | NUR ---
RN OPENING NOTE PT IS IN BED WITH HOB 30 DEGREES. PT IS ON MECHANICAL VENT WITH ALL PRESCRIBED SETTINGS. PT IS A/OX1 AND NON VERBAL, AND NOT IN DISTRESS. PT HAS RIGHT SOFT WRIST RESTRAINT AND MITTEN. GTUBE IS IN PLACE, AND COVERED WITH DRY DRESSING. IV ACCESS RIGHT UPPER ARM MIDLINE INTACT AND PATENT WITH NO SIGNS OF INFILTRATION. WITH RIGHT FEMORAL HD CATHETER INTACT AND COVERED WITH DRY DRESSING. SAFETY MEASURE IN PLACE. BED IS LOCKED IN LOWEST POSITION WITH 3 BED RAILS UP AND ALL HOSPITAL SAFETY MEASURES ARE IN PLACE. WILL CONTINUE TO MONITOR THROUGHOUT SHIFT.
--- NOTE | 2021-10-21 07:50 | NUR ---
BUN AT 103. PATIENT WILL BE ON HD AT 0800H.
[2021-10-21 08:00] VITALS: BP 118/75
[2021-10-21] MEDS: PANTOPRAZOLE 40 MG/PACK PACK GT SCH (08:04)
[2021-10-21] MEDS: THERAHONEY GEL 1.5 OZ TUBE TP SCH ×2 (09:00)
[2021-10-21] MEDS: DOCUSATE SODIUM LIQ 100 MG/10 ML UDC GT SCH ×2 (09:49→20:04)
[2021-10-21] MEDS: CHLORHEXIDINE GLUCONATE 15 ML UDC MM SCH ×2 (09:49→20:04)
[2021-10-21] MEDS: SULFAMETH/TRIMETH 800/160 MG 1 UDTAB TABLET PEG SCH ×2 (09:50→20:04)
[2021-10-21] MEDS: ASCORBIC ACID 500 MG TABLET GT SCH (09:50)
[2021-10-21] MEDS: FERROUS SULFATE (325 MG) 325 MG/TAB TABLET GT SCH (09:50)
[2021-10-21] MEDS: VIT B CMPLX 3/FA/VIT C/BIOTIN 1 TAB TABLET PO SCH (09:50)
[2021-10-21] MEDS: MIDODRINE HCL (5MG) 5 MG TABLET GT SCH ×3 (09:50→16:58)
[2021-10-21] MEDS: MULTIVITAMINS,THERAGRAN 1 UDTAB TABLET GT SCH (09:50)
[2021-10-21] MEDS: METOCLOPRAMIDE HCL 10 MG TABLET GT SCH ×2 (09:51→16:58)
[2021-10-21] MEDS: PROSOURCE / PROSTAT (PYXIS) 30 ML UDC GT SCH (09:56)
[2021-10-21 12:00] VITALS: BP 120/85
[2021-10-21] MEDS: EPOETIN ALFA-EPBX 4,000 UNIT/ML VIAL SQ SCH (15:20)
--- NOTE | 2021-10-21 15:20 | NUR ---
RN NOTE RECEIVED CALL FROM PHARMACY PATIENTS HGB ABOVE 11.0 WILL HOLD EPOETIN DUE TO PROTOCOL.
[2021-10-21 16:00] VITALS: BP 106/68
--- NOTE | 2021-10-21 18:38 | NUR ---
RN CLOSING NOTE PT IS IN BED WITH HOB 30 DEGREES. PT IS ON MECHANICAL VENT WITH ALL PRESCRIBED SETTINGS. PT IS A/OX1 AND NON VERBAL, AND NOT IN DISTRESS. PT HAS RIGHT SOFT WRIST RESTRAINT AND MITTEN. GTUBE IS IN PLACE, AND COVERED WITH DRY DRESSING. IV ACCESS RIGHT UPPER ARM MIDLINE INTACT AND PATENT WITH NO SIGNS OF INFILTRATION. WITH RIGHT FEMORAL HD CATHETER INTACT AND COVERED WITH DRY DRESSING. SAFETY MEASURE IN PLACE. BED IS LOCKED IN LOWEST POSITION WITH 3 BED RAILS UP AND ALL HOSPITAL SAFETY MEASURES ARE IN PLACE. ALL DUE MEDICATIONS GIVEN AND PATIENT REMAINED STABLE THROUGHOUT SHIFT. WILL ENDORSE TO FLOOR HELPER NURSE.
--- NOTE | 2021-10-21 19:39 | NUR ---
manager government Opening Note Pt received lying in bed with HOB elevated at 30 degrees. Pt obtunded, eyes open, non-verbal. Pt attached to ventilator with AC 15, TV 520, FiO2 30%, and PEEP 5. Pt tolerating vent settings well; no s/s of respiratory distress or discomfort, non-labored breathing, appears calm. Pt attached to external monitor, showing ST with occasional PACs. Reinforced right soft-wrist restraint and right mitten. Bed in lowest position, side rails up x3, call light within reach. Will monitor throughout the night.
[2021-10-21 20:00] VITALS: BP 98/56
[2021-10-22] VITALS: BP 117/62
[2021-10-22] MEDS: BLOOD SUGAR DIAGNOSTIC 1 EACH STRIP IN SCH ×4 (00:22→17:37)
[2021-10-22] MEDS: INSULIN REGULAR, HUMAN 100 UNIT/ML 3 ML VIAL SQ PRN ×2 (00:23→06:10)
[2021-10-22 04:00] VITALS: BP 130/82
[2021-10-22] MEDS: NEPRO 1,000 ML BOTTLE GT SCH (04:15)
[2021-10-22] MEDS: SEVELAMER CARBONATE 800 MG POWD.PACK GT SCH ×3 (05:54→21:04)
--- NOTE | 2021-10-22 07:03 | NUR ---
salesperson florist supplies CLOSING NOTE. PT LYING IN BED OBTUNDED, EYES OPEN, NON-VERBAL. PT REMAINS ON TRACH, TOLERATING VENT SETTINGS WELL, O2SAT 100%, NO S/S RESP DISTRESS OR DISCOMFORT. PT REMAINED ST THROUGHOUT THE NIGHT. ALEX MIDLINE AND RIGHT FEMORAL CATH INTACT AND PATENT. GTF DRESSING C/D/I, TOLERATING FEEDING WELL, LITTLE RESIDUAL NOTED. WOUND DRESSINGS REINFORCED. KEPT HOB ELEVATED AT 30 DEGREES, SIDE RAILS UP X3, CALL LIGHT WITHIN REACH. WILL ENDORSE TO DAYSHIFT NURSE TO CONTINUE CARE.
--- NOTE | 2021-10-22 07:35 | NUR ---
RN OPENING NOTES RECEIVED PATIENT IN BED, AWAKE, OBTUNDED. ON MECHANICAL VENTILATION SETTINGS TOLERATED WELL. RESPIRATORY EVEN AND UNLABORED, NO SOB NOTED. NO SIGNS OF ACUTE DISTRESS NOTED. NOTED WITH ALEX MID LINE INTACT PATENT, FLUSHED WITH NS. NO INFILTRATION NOTED AT SITE. LEFT FEMORAL HD CATHETER, NO BLEEDING AT SITE. G-TUBE IN PLACED, INTACT. VERIFIED PLACEMENT VIA AUSCULTATION. NO RESIDUAL NOTED UPON ASPIRATION, TUBE FEEDING RUNNING NEPHRO AT 60 ML/HR. NOTED WITH RIGHT SOFT WRIST RESTRAINT AND MITTEN. SAFETY MEASURE PROVIDED. BED IN LOWEST POSITION, LOCKED. BED ALARM ARMED. WILL CONTINUE TO MONITOR AND ASSESS PATIENT THROUGHOUT SHIFT.
[2021-10-22 07:47] LABS: CALCIUM, SERUM 10.4 mg/dL (8.5-10.1); CREATININE 5.2 mg/dL (0.6-1.3); MAGNESIUM 3.3 mg/dL (1.8-2.4); PHOSPHORUS 4.4 mg/dL (2.5-4.9); POTASSIUM 4.5 mmol/L (3.5-5.1)
[2021-10-22 07:50] LABS: BASOPHILS # (AUTO) 0.1 K/uL (0.0-0.2); BASOPHILS % (AUTO) 0.8 % (0.0-2.0); EOSINOPHILS % (AUTO) 6.6 % (0.0-6.0); HEMATOCRIT 36 % (39-51); HEMOGLOBIN 11.9 g/dL (13.5-17.5); LYMPHOCYTES # (AUTO) 1.8 K/uL (0.8-4.8); LYMPHOCYTES % (AUTO) 9.7 % (20.0-44.0); MEAN CORPUSCULAR HGB CONC 33 g/dl (31.0-36.0); MEAN CORPUSCULAR VOLUME 97 fL (80-96); MONOCYTES # (AUTO) 1.9 K/uL (0.1-1.30); MONOCYTES % (AUTO) 9.9 % (2.0-12.0); NEUTROPHILS # (AUTO) 13.8 K/uL (1.8-8.9); PLATELET COUNT (AUTO) 278 K/uL (150-450); RED BLOOD CELL COUNT(AUTO) 3.72 MIL/uL (4.5-6.0); WHITE BLOOD COUNT (AUTO) 18.9 K/uL (4.3-11.0)
[2021-10-22 08:00] VITALS: BP 118/81
[2021-10-22] MEDS: ASCORBIC ACID 500 MG TABLET GT SCH (08:58)
[2021-10-22] MEDS: PANTOPRAZOLE 40 MG/PACK PACK GT SCH (08:58)
[2021-10-22] MEDS: CHLORHEXIDINE GLUCONATE 15 ML UDC MM SCH ×2 (08:58→21:04)
[2021-10-22] MEDS: DOCUSATE SODIUM LIQ 100 MG/10 ML UDC GT SCH ×2 (08:58→21:04)
[2021-10-22] MEDS: FERROUS SULFATE (325 MG) 325 MG/TAB TABLET GT SCH (08:58)
[2021-10-22] MEDS: SULFAMETH/TRIMETH 800/160 MG 1 UDTAB TABLET PEG SCH ×2 (08:58→21:04)
[2021-10-22] MEDS: VIT B CMPLX 3/FA/VIT C/BIOTIN 1 TAB TABLET PO SCH (08:58)
[2021-10-22] MEDS: METOCLOPRAMIDE HCL 10 MG TABLET GT SCH ×2 (08:58→17:01)
[2021-10-22] MEDS: MULTIVITAMINS,THERAGRAN 1 UDTAB TABLET GT SCH (08:58)
[2021-10-22] MEDS: MIDODRINE HCL (5MG) 5 MG TABLET GT SCH ×3 (08:59→17:01)
[2021-10-22] MEDS: THERAHONEY GEL 1.5 OZ TUBE TP SCH ×2 (08:59→09:00)
[2021-10-22] MEDS: PROSOURCE / PROSTAT (PYXIS) 30 ML UDC GT SCH (08:59)
[2021-10-22 12:00] VITALS: BP 116/48
--- NOTE | 2021-10-22 12:17 | NUR ---
RN NOTE PATIENT HAS BLOOD SUGAR RESULT OF 122 MG/DL, NO INSULIN COVERAGE NEEDED. NO SIGNS OF HYPER/HYPOGLCEMIA NOTED AT THE TIME. ALL SAFETY MEASURES IN PLACE.
--- NOTE | 2021-10-22 13:13 | NUR ---
RN NOTES OBTAINED VERBAL CONSENT VIA TELEPHONE FROM SEN LORENZ FOR US GUIDED THORACENTESIS, WITNESS BY CHARGE NURSE.
[2021-10-22 16:00] VITALS: BP 117/81
--- NOTE | 2021-10-22 17:39 | NUR ---
RN NOTES BLOOD SUGAR 115 mg/dL, NO INSULIN COVERAGE PER SLIDING SCALE. NO SIGNS OF HYPER/HYPOGLYCEMIA NOTED AT THE TIME.
--- NOTE | 2021-10-22 19:10 | NUR ---
RN NOTES RECEIVED PATIENT IN BED, AWAKE, OBTUNDED. ON MECHANICAL VENTILATION WITH PRESCRIBED SETTINGS TOLERATED WELL. RESPIRATORY EVEN AND UNLABORED, NO SOB NOTED. NO SIGNS OF ACUTE DISTRESS NOTED. NOTED WITH ALEX MID LINE INTACT PATENT, FLUSHED WITH NS. NO INFILTRATION NOTED AT SITE. LEFT FEMORAL HD CATHETER INTACT NO BLEEDING AT SITE. G-TUBE IN PLACED, INTACT. VERIFIED PLACEMENT VIA AUSCULTATION. NO RESIDUAL NOTED UPON ASPIRATION, TUBE FEEDING RUNNING NEPHRO AT 60 ML/HR. NOTED WITH RIGHT SOFT WRIST RESTRAINT AND MITTEN. SAFETY MEASURE PROVIDED. BED IN LOWEST POSITION AND LOCKED. ALL SAFETY MEASURES IN PLACE AT ALL TIMES. WILL CLOSELY MONITOR THE PATIENT.
--- NOTE | 2021-10-22 19:23 | NUR ---
RN CLOSING NOTES NO SIGNIFICANT CHANGES THOUGHOUT SHIFT. PATIENT IN BED, EYES CLOSE OBTUNDED. ON MECHANICAL VENTILATION SETTINGS TOLERATED WELL. RESPIRATORY EVEN AND UNLABORED, NO SOB NOTED. NO SIGNS OF ACUTE DISTRESS NOTED. NOTED WITH ALEX MID LINE INTACT PATENT, FLUSHED WITH NS. NO INFILTRATION NOTED AT SITE. LEFT FEMORAL HD CATHETER, NO BLEEDING AT SITE. G-TUBE IN PLACED, INTACT. VERIFIED PLACEMENT VIA AUSCULTATION. NO RESIDUAL NOTED UPON ASPIRATION, TUBE FEEDING RUNNING NEPHRO AT 60 ML/HR. NOTED WITH RIGHT SOFT WRIST RESTRAINT AND MITTEN. ALL DUE MEDS GIVEN ORDERED. KEPT PATIENT CLEAN DRY AND COMFORTABLE. WOUND CARE RENDERED TOLERATED WELL. ALL NEEDS ATTENDED. SAFETY MEASURE PROVIDED. ENDORSED TO AUDIT PARTNER NURSE FOR CONTINUITY OF CARE.
[2021-10-22 20:00] VITALS: BP 120/78
[2021-10-23] VITALS: BP 134/85
[2021-10-23] MEDS: BLOOD SUGAR DIAGNOSTIC 1 EACH STRIP IN SCH ×4 (00:15→18:07)
--- NOTE | 2021-10-23 00:16 | NUR ---
RN NOTES BS 114MG/DL NO INSULIN COVERAGE.
[2021-10-23] MEDS: NEPRO 1,000 ML BOTTLE GT SCH (03:46)
[2021-10-23 04:00] VITALS: BP 115/64
[2021-10-23] MEDS: SEVELAMER CARBONATE 800 MG POWD.PACK GT SCH ×3 (05:51→20:55)
--- NOTE | 2021-10-23 05:52 | NUR ---
RN NOTES BS 115MG/DL NO COVERAGE
--- NOTE | 2021-10-23 06:15 | NUR ---
RN NOTES HEMODIALYSIS STARTED BY HD NURSE. PATIENT STABLE VITALS WNL. WILL CONTINUE TO MONITOR.
--- NOTE | 2021-10-23 06:44 | NUR ---
RN NOTES NO SIGNIFICANT CHANGES THOUGHOUT SHIFT. PATIENT IN BED, EYES CLOSE OBTUNDED. ON MECHANICAL VENTILATION SETTINGS TOLERATED WELL. RESPIRATORY EVEN AND UNLABORED, NO SOB NOTED. NO SIGNS OF ACUTE DISTRESS NOTED. NOTED WITH ALEX MID LINE INTACT PATENT, FLUSHED WITH NS. NO INFILTRATION NOTED AT SITE. LEFT FEMORAL HD CATHETER, NO BLEEDING AT SITE. G-TUBE IN PLACED, INTACT. VERIFIED PLACEMENT VIA AUSCULTATION. NO RESIDUAL NOTED UPON ASPIRATION, TUBE FEEDING RUNNING NEPHRO AT 60 ML/HR. NOTED WITH RIGHT SOFT WRIST RESTRAINT AND MITTEN. ALL DUE MEDS GIVEN ORDERED. KEPT PATIENT CLEAN DRY AND COMFORTABLE. WOUND CARE RENDERED TOLERATED WELL. ALL NEEDS ATTENDED. SAFETY MEASURE PROVIDED. ENDORSED TO MORNING SHIFT NURSE FOR CONTINUITY OF CARE.
[2021-10-23] MEDS: ALBUMIN 25% 25 GM in PREMIX 1 EA IV PRN (06:51)
--- NOTE | 2021-10-23 07:30 | NUR ---
GREASE AND TALLOW PUMPER AM NOTES RECEIVED PATIENT IN BED, AWAKE, OBTUNDED. ON MECHANICAL VENTILATION SETTINGS TOLERATED WELL. BREATHING EVEN AND UNLABORED, NO SOB NOTED. PATIENT WITH PORTEX 8 TRACH TO MECHANICAL VENT; SETTINGS ORDERED; PT TOLERATED WELL. AMBU BAG AT BED SIDE ALARMS SET PER PROTOCOL AND AUDIBLE. NO ACUTE DISTRESS, ST HR 109 NO SIGNS OF DISCOMFORT/GRIMACINGS. WITH ALEX MID LINE FLUSHES WELL, SITE CLEAR. RIGHT FEMORAL HD CATHETER, CDI DRESSING, G-TUBE IN PLACE, CHECKED FOR PLACEMENT, O RESIDUAL, ONGOING GTF OF NEPRO AT 60 ML/HR. WITH RIGHT SOFT WRIST RESTRAINT AND MITTEN. RELEASED AND CHECKED FOR CIRCULATION THEN Q 2 HOURS. SAFETY MEASURE PROVIDED. BED IN LOWEST POSITION, LOCKED. BED ALARM ARMED. WILL CONTINUE TO MONITOR AND ASSESS PATIENT THROUGHOUT SHIFT. ONGOING HEMODIALYSIS.
[2021-10-23 07:37] LABS: BASOPHILS # (AUTO) 0.1 K/uL (0.0-0.2); BASOPHILS % (AUTO) 0.4 % (0.0-2.0); EOSINOPHILS % (AUTO) 7.7 % (0.0-6.0); HEMATOCRIT 32 % (39-51); HEMOGLOBIN 10.2 g/dL (13.5-17.5); LYMPHOCYTES # (AUTO) 1.7 K/uL (0.8-4.8); LYMPHOCYTES % (AUTO) 8.8 % (20.0-44.0); MEAN CORPUSCULAR HGB CONC 32 g/dl (31.0-36.0); MEAN CORPUSCULAR VOLUME 97 fL (80-96); MONOCYTES # (AUTO) 2.2 K/uL (0.1-1.30); MONOCYTES % (AUTO) 11.4 % (2.0-12.0); NEUTROPHILS # (AUTO) 13.7 K/uL (1.8-8.9); NEUTROPHILS % (AUTO) 71.7 % (43.0-81.0); PLATELET COUNT (AUTO) 266 K/uL (150-450); RED BLOOD CELL COUNT(AUTO) 3.33 MIL/uL (4.5-6.0); WHITE BLOOD COUNT (AUTO) 19.2 K/uL (4.3-11.0)
[2021-10-23 08:00] VITALS: BP 90/68
[2021-10-23 08:16] LABS: CALCIUM, SERUM 9.9 mg/dL (8.5-10.1); CREATININE 6.5 mg/dL (0.6-1.3); MAGNESIUM 3.6 mg/dL (1.8-2.4); PHOSPHORUS 3.9 mg/dL (2.5-4.9); POTASSIUM 4.2 mmol/L (3.5-5.1)
[2021-10-23] MEDS: DOCUSATE SODIUM LIQ 100 MG/10 ML UDC GT SCH ×2 (08:21→20:54)
[2021-10-23] MEDS: FERROUS SULFATE (325 MG) 325 MG/TAB TABLET GT SCH (08:21)
[2021-10-23] MEDS: PANTOPRAZOLE 40 MG/PACK PACK GT SCH (08:21)
[2021-10-23] MEDS: ASCORBIC ACID 500 MG TABLET GT SCH (08:22)
[2021-10-23] MEDS: SULFAMETH/TRIMETH 800/160 MG 1 UDTAB TABLET PEG SCH ×2 (08:22→20:54)
[2021-10-23] MEDS: VIT B CMPLX 3/FA/VIT C/BIOTIN 1 TAB TABLET PO SCH (08:22)
[2021-10-23] MEDS: METOCLOPRAMIDE HCL 10 MG TABLET GT SCH ×2 (08:22→16:28)
[2021-10-23] MEDS: PROSOURCE / PROSTAT (PYXIS) 30 ML UDC GT SCH (08:22)
[2021-10-23] MEDS: MULTIVITAMINS,THERAGRAN 1 UDTAB TABLET GT SCH (08:22)
[2021-10-23] MEDS: CHLORHEXIDINE GLUCONATE 15 ML UDC MM SCH ×2 (08:22→20:54)
[2021-10-23] MEDS: THERAHONEY GEL 1.5 OZ TUBE TP SCH ×2 (08:23)
[2021-10-23] MEDS: MIDODRINE HCL (5MG) 5 MG TABLET GT SCH ×3 (08:24→16:27)
--- NOTE | 2021-10-23 09:30 | NUR ---
RN NOTES DUE MEDS GIVEN
--- NOTE | 2021-10-23 10:00 | NUR ---
RN NOTES PER HD NURSE ISHMAEL, HE HAD TO STOPPED DIALYSIS DUE TO LOW BP. [address] KEBEDE NOTIFIED.
--- NOTE | 2021-10-23 11:25 | NUR ---
RN NOTE S/P THORACENTESIS, RIGHT PLEURAL EFFUSION DONE. 1190 ML OUTPUT REMOVED. SPECIMEN BROUGHT TO LABORATORY.
[2021-10-23 12:00] VITALS: BP 107/75
[2021-10-23 16:00] VITALS: BP 99/71
[2021-10-23] MEDS: EPOETIN ALFA-EPBX 4,000 UNIT/ML VIAL SQ SCH (16:23)
--- NOTE | 2021-10-23 19:10 | NUR ---
AGED OR DISABLED CARE WORKER CLOSING NOTES PATIENT IN BED, AWAKE, OBTUNDED. ON MECHANICAL VENTILATION SETTINGS TOLERATED WELL. BREATHING EVEN AND UNLABORED, NO SOB NOTED. PATIENT WITH PORTEX 8 TRACH TO MECHANICAL VENT; SETTINGS ORDERED; PT TOLERATED WELL. AMBU BAG AT BED SIDE ALARMS SET PER PROTOCOL AND AUDIBLE. NO ACUTE DISTRESS, REMAINS ST HR 100s, NO SIGNS OF DISCOMFORT/GRIMACINGS. WITH ALEX MID LINE FLUSHES WELL, SITE CLEAR. RIGHT FEMORAL HD CATHETER, CDI DRESSING, G-TUBE IN PLACE, CHECKED FOR PLACEMENT, O RESIDUAL, ONGOING GTF OF NEPRO AT 60 ML/HR. WITH RIGHT SOFT WRIST RESTRAINT AND MITTEN. RELEASED AND CHECKED FOR CIRCULATION Q 2 HOURS. PRESCRIBED WOUND TREATMENT AND PM CARE DONE EARLIER, SAFETY MEASURE PROVIDED. BED IN LOWEST POSITION, LOCKED. BED ALARM ARMED. ALL NEEDS MET AT THIS TIME. CALL LIGHT WITHIN REACH. WILL ENDORSE TO NEXT SHIFT FOR DENNIS. HEMODIALYSIS THIS MORNING DONE BUT WITH 500 ML OUTPUT ONLY. MD AWARE
[2021-10-23 20:00] VITALS: BP 136/73
--- NOTE | 2021-10-23 21:05 | NUR ---
RN NOTE DUE MEDS GIVEN, PT TOLERATED WELL
--- NOTE | 2021-10-23 23:50 | NUR ---
RN NOTE BLOOD SUGAR CHECKED AT 113MG/DL, NO COVERAGE GIVEN
[2021-10-24] VITALS: BP 127/81
[2021-10-24] MEDS: BLOOD SUGAR DIAGNOSTIC 1 EACH STRIP IN SCH ×5 (00:05→23:40)
[2021-10-24] MEDS: NEPRO 1,000 ML BOTTLE GT SCH ×2 (03:29→23:09)
[2021-10-24 04:00] VITALS: BP 121/75
[2021-10-24] MEDS: SEVELAMER CARBONATE 800 MG POWD.PACK GT SCH ×3 (05:25→21:14)
--- NOTE | 2021-10-24 05:47 | NUR ---
BLOOD SUGAR 98 MG/DL, NO COVERAGE GIVEN
--- NOTE | 2021-10-24 06:53 | NUR ---
RN NOTE PATIENT LYING ON BED. OBTUNDED WITH EYES OPEN, NO SIGNIFICANT CHANGES THROUGHOUT THE SHIFT. PATIENT ON TRACH CONNECTED TO MECHANICAL VENTILATOR, TOLERATING WELL. NOT IN RESPIRATORY DISTRESS, EVEN AND UNLABORED BREATHING. NOTED WITH ALEX MIDLINE AND R GROIN FEM HD CATH, NO BLEEDING AT SITE. G TUBE IN PLACE PATENT AND INTACT. TUBE FEEDING RUNNING 60 CC/HR, INFUSING WELL, NOTED WITH R SOFT WRIST, RENEWED RESTRAINT ORDER AT 0630, ALL DUE MED GIVEN, ACCUCHECK Q6H, SAFETY MEASURES IN PLACE, BED IN LOWEST POSITION, WILL ENDORSE TO THE DAY SHIFT NURSE
[2021-10-24 07:22] LABS: BASOPHILS # (AUTO) 0.1 K/uL (0.0-0.2); BASOPHILS % (AUTO) 0.5 % (0.0-2.0); EOSINOPHILS % (AUTO) 10.7 % (0.0-6.0); HEMATOCRIT 34 % (39-51); HEMOGLOBIN 10.7 g/dL (13.5-17.5); LYMPHOCYTES # (AUTO) 1.3 K/uL (0.8-4.8); LYMPHOCYTES % (AUTO) 8.7 % (20.0-44.0); MEAN CORPUSCULAR HGB CONC 32 g/dl (31.0-36.0); MEAN CORPUSCULAR VOLUME 98 fL (80-96); MONOCYTES # (AUTO) 1.3 K/uL (0.1-1.30); MONOCYTES % (AUTO) 9.2 % (2.0-12.0); NEUTROPHILS # (AUTO) 10.3 K/uL (1.8-8.9); NEUTROPHILS % (AUTO) 70.9 % (43.0-81.0); PLATELET COUNT (AUTO) 204 K/uL (150-450); RED BLOOD CELL COUNT(AUTO) 3.47 MIL/uL (4.5-6.0); WHITE BLOOD COUNT (AUTO) 14.5 K/uL (4.3-11.0)
[2021-10-24 07:32] LABS: CALCIUM, SERUM 10.3 mg/dL (8.5-10.1); CREATININE 6.3 mg/dL (0.6-1.3); MAGNESIUM 3.4 mg/dL (1.8-2.4); PHOSPHORUS 4.3 mg/dL (2.5-4.9); POTASSIUM 4.5 mmol/L (3.5-5.1)
[2021-10-24 08:00] VITALS: BP 116/85
[2021-10-24] MEDS: PANTOPRAZOLE 40 MG/PACK PACK GT SCH (08:36)
[2021-10-24] MEDS: MIDODRINE HCL (5MG) 5 MG TABLET GT SCH ×3 (08:36→17:00)
[2021-10-24] MEDS: SULFAMETH/TRIMETH 800/160 MG 1 UDTAB TABLET PEG SCH ×2 (08:36→21:14)
[2021-10-24] MEDS: CHLORHEXIDINE GLUCONATE 15 ML UDC MM SCH ×2 (08:36→21:14)
[2021-10-24] MEDS: DOCUSATE SODIUM LIQ 100 MG/10 ML UDC GT SCH ×2 (08:36→21:13)
[2021-10-24] MEDS: VIT B CMPLX 3/FA/VIT C/BIOTIN 1 TAB TABLET PO SCH (08:37)
[2021-10-24] MEDS: ASCORBIC ACID 500 MG TABLET GT SCH (08:37)
[2021-10-24] MEDS: MULTIVITAMINS,THERAGRAN 1 UDTAB TABLET GT SCH (08:37)
[2021-10-24] MEDS: METOCLOPRAMIDE HCL 10 MG TABLET GT SCH ×2 (08:37→18:09)
[2021-10-24] MEDS: FERROUS SULFATE (325 MG) 325 MG/TAB TABLET GT SCH (08:37)
[2021-10-24] MEDS: THERAHONEY GEL 1.5 OZ TUBE TP SCH ×2 (08:37→08:39)
[2021-10-24] MEDS: PROSOURCE / PROSTAT (PYXIS) 30 ML UDC GT SCH (09:12)
[2021-10-24 12:00] VITALS: BP 103/75
[2021-10-24 16:00] VITALS: BP 144/66
[2021-10-24] MEDS: INSULIN REGULAR, HUMAN 100 UNIT/ML 3 ML VIAL SQ PRN (18:10)
--- NOTE | 2021-10-24 19:10 | NUR ---
RN NOTES RECEIVED PATIENT LYING IN BED, OBTUNDED. ON TRACH TO MECHANICAL VENTILATION SETTINGS, PORTEX 8, AC 15, TV 520, FI02 30, PEEP 5, TOLERATED WELL. NO SOB NOTED. AMBU BAG AT BED SIDE ALARMS SET PER PROTOCOL AND AUDIBLE. NO ACUTE DISTRESS, WITH ALEX MID LINE PATENT AND FLUSHES WELL, R FEMORAL HD CATHETER, G-TUBE IN PLACE, CHECKED FOR PLACEMENT, O RESIDUAL, ONGOING GTF OF NEPRO AT 60 ML/HR. WITH RIGHT SOFT WRIST RESTRAINT AND MITTEN. RELEASED AND CHECKED FOR CIRCULATION Q 2 HOURS. SAFETY MEASURE PROVIDED. BED IN LOWEST POSITION, LOCKED. BED ALARM ARMED. WILL CONTINUE TO MONITOR.
[2021-10-24 20:00] VITALS: BP 127/88
--- NOTE | 2021-10-24 23:41 | NUR ---
RN NOTES BS 117MG/DL NO COVERAGE
[2021-10-25] VITALS: BP 123/88
[2021-10-25 04:00] VITALS: BP 130/77
[2021-10-25] MEDS: SEVELAMER CARBONATE 800 MG POWD.PACK GT SCH ×3 (05:16→20:13)
[2021-10-25] MEDS: BLOOD SUGAR DIAGNOSTIC 1 EACH STRIP IN SCH ×3 (05:40→17:59)
--- NOTE | 2021-10-25 06:00 | NUR ---
RN NOTES BS 98MG/DL NO COVERAGE
[2021-10-25 06:54] LABS: BASOPHILS # (AUTO) 0.1 K/uL (0.0-0.2); BASOPHILS % (AUTO) 0.3 % (0.0-2.0); EOSINOPHILS % (AUTO) 8.3 % (0.0-6.0); HEMATOCRIT 32 % (39-51); HEMOGLOBIN 10.3 g/dL (13.5-17.5); LYMPHOCYTES % (AUTO) 10.6 % (20.0-44.0); MEAN CORPUSCULAR HGB CONC 33 g/dl (31.0-36.0); MEAN CORPUSCULAR VOLUME 96 fL (80-96); MONOCYTES # (AUTO) 1.7 K/uL (0.1-1.30); MONOCYTES % (AUTO) 9.1 % (2.0-12.0); NEUTROPHILS # (AUTO) 13.5 K/uL (1.8-8.9); NEUTROPHILS % (AUTO) 71.7 % (43.0-81.0); PLATELET COUNT (AUTO) 221 K/uL (150-450); WHITE BLOOD COUNT (AUTO) 18.9 K/uL (4.3-11.0)
[2021-10-25 06:58] LABS: CALCIUM, SERUM 10.3 mg/dL (8.5-10.1); CREATININE 7.1 mg/dL (0.6-1.3); PHOSPHORUS 3.9 mg/dL (2.5-4.9); POTASSIUM 4.8 mmol/L (3.5-5.1)
[2021-10-25 08:00] VITALS: BP 112/79
--- NOTE | 2021-10-25 08:04 | NUR ---
RN OPENING NOTE PATIENT IS IN BED, OBTUNDED WITH EYES OPEN, NON VERBAL. ON SEMI PEÑA'S POSITION. WITH TRACHEOSTOMY CONNECTED TO MECHANICAL VENTILATOR ON AC MODE. NOT IN LABORED BREATHING OR RESPIRATORY DISTRESS. SINUS TACHYCARDIA AT 102 BEATS PER MINUTE ON MEDIA CENTER SPECIALIST. WITH RIGHT UPPER ARM MIDLINE, INTACT AND PATENT AND WITH NO SIGNS OF INFILTRATION. WITH SOFT MITTEN RESTRAINT ON RIGHT HAND, CIRCULATION ON RIGHT HAND IS ADEQUATE. BED IS LOCKED IN THE LOWEST POSITION, 3 GUARD RAILS RAISED, CALL COATES WITHIN REACH, AND ALL HOSPITAL SAFETY PRECAUTIONS IN PLACE. WILL CONTINUE TO MONITOR THROUGHOUT SHIFT.
[2021-10-25] MEDS: PROSOURCE / PROSTAT (PYXIS) 30 ML UDC GT SCH (08:18)
[2021-10-25] MEDS: CHLORHEXIDINE GLUCONATE 15 ML UDC MM SCH ×2 (08:18→20:13)
[2021-10-25] MEDS: VIT B CMPLX 3/FA/VIT C/BIOTIN 1 TAB TABLET PO SCH (08:19)
[2021-10-25] MEDS: METOCLOPRAMIDE HCL 10 MG TABLET GT SCH ×2 (08:19→17:34)
[2021-10-25] MEDS: DOCUSATE SODIUM LIQ 100 MG/10 ML UDC GT SCH ×2 (08:19→20:13)
[2021-10-25] MEDS: MIDODRINE HCL (5MG) 5 MG TABLET GT SCH ×3 (08:19→17:34)
[2021-10-25] MEDS: PANTOPRAZOLE 40 MG/PACK PACK GT SCH (08:19)
[2021-10-25] MEDS: MULTIVITAMINS,THERAGRAN 1 UDTAB TABLET GT SCH (08:20)
[2021-10-25] MEDS: ASCORBIC ACID 500 MG TABLET GT SCH (08:20)
[2021-10-25] MEDS: FERROUS SULFATE (325 MG) 325 MG/TAB TABLET GT SCH (08:20)
[2021-10-25] MEDS: SULFAMETH/TRIMETH 800/160 MG 1 UDTAB TABLET PEG SCH ×2 (08:20→20:13)
[2021-10-25] MEDS: THERAHONEY GEL 1.5 OZ TUBE TP SCH ×2 (08:52→08:53)
[2021-10-25 12:00] VITALS: BP 112/79
--- NOTE | 2021-10-25 14:24 | NUR ---
roger arboleda note per dr carol nazario to remove Salvador beltran , order carried out Addendum: 10/25/21 at 1430 by WALESKA WELLINGTON RN wrong charting ,error
[2021-10-25 16:00] VITALS: BP 114/82
--- NOTE | 2021-10-25 18:30 | NUR ---
RN CLOSING NOTE PATIENT IS RESTING COMFORTABLY AND IS NOT IN ACUTE DISTRESS. PATIENT WAS MONITORED THROUGHOUT SHIFT. INTERVENTIONS WERE COMPLETED NEEDED. ALL OF THE PATIENT'S NEEDS HAVE BEEN MET. ASSISTANCE WAS PROVIDED NEEDED. ALL DUE MEDICATIONS WERE GIVEN. WILL ENDORSE TO COOK PICKLED MEAT RN.
[2021-10-25 20:00] VITALS: BP 119/82
[2021-10-25] MEDS: NEPRO 1,000 ML BOTTLE GT SCH (20:08)
[2021-10-26] VITALS: BP 125/83
[2021-10-26] MEDS: INSULIN REGULAR, HUMAN 100 UNIT/ML 3 ML VIAL SQ PRN ×4 (00:49→18:05)
[2021-10-26] MEDS: BLOOD SUGAR DIAGNOSTIC 1 EACH STRIP IN SCH ×4 (00:50→17:42)
[2021-10-26 04:00] VITALS: BP 116/80
[2021-10-26] MEDS: SEVELAMER CARBONATE 800 MG POWD.PACK GT SCH ×3 (05:39→21:25)
[2021-10-26 06:16] LABS: ALBUMIN 3.2 g/dL (3.4-5.0); BILIRUBIN,TOTAL 0.4 mg/dL (0.2-1.0); CALCIUM, SERUM 10.3 mg/dL (8.5-10.1); PHOSPHORUS 4.6 mg/dL (2.5-4.9); TOTAL PROTEIN, SERUM 8.2 g/dL (6.4-8.2)
[2021-10-26 06:47] LABS: BASOPHILS # (AUTO) 0.1 K/uL (0.0-0.2); BASOPHILS % (AUTO) 0.6 % (0.0-2.0); EOSINOPHILS % (AUTO) 10.7 % (0.0-6.0); HEMATOCRIT 32 % (39-51); HEMOGLOBIN 10.4 g/dL (13.5-17.5); LYMPHOCYTES # (AUTO) 1.4 K/uL (0.8-4.8); LYMPHOCYTES % (AUTO) 9.5 % (20.0-44.0); MEAN CORPUSCULAR HGB CONC 33 g/dl (31.0-36.0); MEAN CORPUSCULAR VOLUME 96 fL (80-96); MONOCYTES # (AUTO) 1.4 K/uL (0.1-1.30); NEUTROPHILS # (AUTO) 10.5 K/uL (1.8-8.9); NEUTROPHILS % (AUTO) 70.2 % (43.0-81.0); PLATELET COUNT (AUTO) 208 K/uL (150-450); RED BLOOD CELL COUNT(AUTO) 3.32 MIL/uL (4.5-6.0)
--- NOTE | 2021-10-26 07:29 | NUR ---
RN NOTE ENDORSED CARE OF PATIENT TO AM NURSE IN STABLE CONDITIONS. ALL PATIENT NEEDS MET THROUGHOUT SHIFT. ALL DUE MEDS GIVEN. NO SIGNIFICANT FINDINGS UPON ALL NURSING ASSESSMENTS. ALL SAFETY MEASURES IMPLEMENTED PER HOSPITAL PROTOCOLS. ENDORSED TO AM NURSE FOR DENNIS.
--- NOTE | 2021-10-26 07:32 | NUR ---
RN OPENING NOTE PT RECEIVED IN BED SLEEPING. PT IS ON MECHANICAL VENT WITH ALL PRESCRIBED SETTINGS SAT 97% TOLERATING WELL WITH NO SIGNS OF LABORED BREATHING OR DISTRESS. PT IS OBTUNDED AND NON VERBAL; TELE MONITORED ST. PT HAS LEFT SOFT WRIST RESTRAINT AND L SOFT MITTEN. PT HAS GT POSITIVE PLACEMENT INFUSING WITH NEPRO @60ML/HR. IV ACCESS R UA MIDLINE AND R GROIN FEM HD CATH AND IS SCHEDULED FOR HD THIS AFTERNOON. BED IS LOCKED IN LOWEST POSITION X3 BED RAILS UP AND ALL HOSPITAL SAFETY PROTOCOLS ARE IN PLACE. WILL CONTINUE TO MONITOR THIS SHIFT.
[2021-10-26 08:00] VITALS: BP 126/89
[2021-10-26] MEDS: PANTOPRAZOLE 40 MG/PACK PACK GT SCH (08:32)
[2021-10-26] MEDS: CHLORHEXIDINE GLUCONATE 15 ML UDC MM SCH ×2 (08:33→21:25)
[2021-10-26] MEDS: SULFAMETH/TRIMETH 800/160 MG 1 UDTAB TABLET PEG SCH ×2 (08:33→21:25)
[2021-10-26] MEDS: DOCUSATE SODIUM LIQ 100 MG/10 ML UDC GT SCH ×2 (08:33→21:25)
[2021-10-26] MEDS: MIDODRINE HCL (5MG) 5 MG TABLET GT SCH ×3 (08:33→17:42)
[2021-10-26] MEDS: VIT B CMPLX 3/FA/VIT C/BIOTIN 1 TAB TABLET PO SCH (08:34)
[2021-10-26] MEDS: METOCLOPRAMIDE HCL 10 MG TABLET GT SCH ×2 (08:34→17:42)
[2021-10-26] MEDS: FERROUS SULFATE (325 MG) 325 MG/TAB TABLET GT SCH (08:34)
[2021-10-26] MEDS: ASCORBIC ACID 500 MG TABLET GT SCH (08:34)
[2021-10-26] MEDS: MULTIVITAMINS,THERAGRAN 1 UDTAB TABLET GT SCH (08:34)
[2021-10-26] MEDS: THERAHONEY GEL 1.5 OZ TUBE TP SCH ×2 (08:35→08:39)
[2021-10-26] MEDS: PROSOURCE / PROSTAT (PYXIS) 30 ML UDC GT SCH (08:40)
[2021-10-26] MEDS: ALBUMIN 25% 25 GM in PREMIX 1 EA IV PRN (09:13)
[2021-10-26 09:14] LABS: CREATININE 8.5 mg/dL (0.6-1.3)
[2021-10-26 09:17] LABS: MAGNESIUM 4.2 mg/dL (1.8-2.4)
[2021-10-26 12:00] VITALS: BP 126/89
--- NOTE | 2021-10-26 12:25 | NUR ---
RN NOTE: BLOOD SUGAR PT BS 95. PER SLIDING SCALE, NO COVERAGE NEEDED AT THIS TIME.
[2021-10-26] MEDS: NEPRO 1,000 ML BOTTLE GT SCH (14:08)
[2021-10-26] MEDS: EPOETIN ALFA-EPBX 4,000 UNIT/ML VIAL SQ SCH (15:22)
[2021-10-26 16:04] VITALS: BP 105/67
--- NOTE | 2021-10-26 18:00 | NUR ---
RN NOTE: BLOOD SUGAR PT BS 84. PER SLIDING SCALE, NO COVERAGE NEEDED AT THIS TIME.
--- NOTE | 2021-10-26 18:41 | NUR ---
RN CLOSING NOTE PT IS IN BED SLEEPING. PT IS ON MECHANICAL VENT WITH ALL PRESCRIBED SETTINGS SAT 96% TOLERATING WELL WITH NO SIGNS OF LABORED BREATHING OR DISTRESS. PT IS OBTUNDED AND NON VERBAL; TELE MONITORED ST. PT HAS LEFT SOFT WRIST RESTRAINT AND L SOFT MITTEN. PT HAS GT POSITIVE PLACEMENT INFUSING WITH NEPRO @60ML/HR. IV ACCESS R UA MIDLINE AND R GROIN FEM HD CATH AND HAD HD TODAY -1.5L NO COMPLICATIONS. BED IS LOCKED IN LOWEST POSITION X3 BED RAILS UP AND ALL HOSPITAL SAFETY PROTOCOLS ARE IN PLACE. WILL ENDORSE TO TUNNEL ELASTIC OPERATOR LOCKSTITCH NURSE FOR DENNIS.
--- NOTE | 2021-10-26 19:35 | NUR ---
RN OPENING NOTE RECEIVED PATIENT RESTING IN BED. OBTUNDED AT BASELINE. NO S/SX OF PAIN NOTED AT THIS TIME. CONTINUES ON MECHANICAL VENT WITH PATIENT TOLERATING SETTINGS WELL. IV ACCESS TO RIGHT UPPER ARM MIDLINE #18G INTACT, PATENT AND SALINE LOCKED. HD ACCESS TO RIGHT GROIN FEMORAL LINE. CONTINUES ON TF NEPRO @ 60CC/HR. NO RESIDUAL NOTED AT THIS TIME. CONTINUES ON TELE MONITOR WITH CURRENT READING ST HR 103. CALL LIGHT WITHIN REACH. FREQUENT SAFETY CHECKS MADE. ASPIRATION, FALL AND SAFETY PRECAUTIONS MAINTAINED. WILL CONTINUE TO MONITOR.
[2021-10-26 20:00] VITALS: BP 125/80
[2021-10-27] VITALS: BP 104/71
[2021-10-27] MEDS: BLOOD SUGAR DIAGNOSTIC 1 EACH STRIP IN SCH ×5 (00:03→23:10)
[2021-10-27 04:00] VITALS: BP 113/76
[2021-10-27] MEDS: NEPRO 1,000 ML BOTTLE GT SCH (05:45)
[2021-10-27] MEDS: SEVELAMER CARBONATE 800 MG POWD.PACK GT SCH ×3 (05:45→20:22)
[2021-10-27 06:04] LABS: BASOPHILS # (AUTO) 0.1 K/uL (0.0-0.2); BASOPHILS % (AUTO) 0.4 % (0.0-2.0); EOSINOPHILS % (AUTO) 14.1 % (0.0-6.0); HEMATOCRIT 32 % (39-51); HEMOGLOBIN 10.1 g/dL (13.5-17.5); LYMPHOCYTES # (AUTO) 1.2 K/uL (0.8-4.8); MEAN CORPUSCULAR HGB CONC 32 g/dl (31.0-36.0); MEAN CORPUSCULAR VOLUME 96 fL (80-96); MONOCYTES # (AUTO) 1.2 K/uL (0.1-1.30); MONOCYTES % (AUTO) 10.3 % (2.0-12.0); NEUTROPHILS # (AUTO) 7.8 K/uL (1.8-8.9); NEUTROPHILS % (AUTO) 65.2 % (43.0-81.0); PLATELET COUNT (AUTO) 205 K/uL (150-450); RED BLOOD CELL COUNT(AUTO) 3.28 MIL/uL (4.5-6.0); WHITE BLOOD COUNT (AUTO) 11.9 K/uL (4.3-11.0)
[2021-10-27 06:16] LABS: CALCIUM, SERUM 10.1 mg/dL (8.5-10.1); CREATININE 6.7 mg/dL (0.6-1.3); MAGNESIUM 3.6 mg/dL (1.8-2.4); PHOSPHORUS 4.5 mg/dL (2.5-4.9); POTASSIUM 4.2 mmol/L (3.5-5.1)
--- NOTE | 2021-10-27 06:25 | NUR ---
RN NOTE RECEIVED CALL FROM LAB WITH CRITICAL LAB VALUE BUN 107. TRENDING DOWN FROM PRIOR LAB RESULTS. CONTINUES ON HEMODIALYSIS. COMMERCIAL SINGER MD RENE JAMES AWARE. WILL ENDORSE TO AM RN.
--- NOTE | 2021-10-27 06:30 | NUR ---
RN CLOSING NOTE PATIENT CURRENTLY RESTING IN BED. OBTUNDED AT BASELINE. NO S/SX OF PAIN NOTED AT THIS TIME. CONTINUES ON MECHANICAL VENT WITH PATIENT TOLERATING SETTINGS WELL. IV ACCESS TO RIGHT UPPER ARM MIDLINE #18G INTACT, PATENT AND SALINE LOCKED. HD ACCESS TO RIGHT GROIN FEMORAL LINE. CONTINUES ON TF NEPRO @ 60CC/HR. NO RESIDUAL NOTED AT THIS TIME. CONTINUES ON TELE MONITOR WITH CURRENT READING ST. CALL LIGHT WITHIN REACH. FREQUENT SAFETY CHECKS MADE. ASPIRATION, FALL AND SAFETY PRECAUTIONS MAINTAINED. WILL ENDORSE PLAN OF CARE TO ONCOMING SHIFT.
[2021-10-27] MEDS: PANTOPRAZOLE 40 MG/PACK PACK GT SCH (07:54)
[2021-10-27 08:00] VITALS: BP 102/75
[2021-10-27] MEDS: CHLORHEXIDINE GLUCONATE 15 ML UDC MM SCH ×2 (08:06→20:21)
[2021-10-27] MEDS: THERAHONEY GEL 1.5 OZ TUBE TP SCH ×2 (08:07)
[2021-10-27] MEDS: PROSOURCE / PROSTAT (PYXIS) 30 ML UDC GT SCH (08:08)
[2021-10-27] MEDS: DOCUSATE SODIUM LIQ 100 MG/10 ML UDC GT SCH ×2 (08:18→20:21)
[2021-10-27] MEDS: VIT B CMPLX 3/FA/VIT C/BIOTIN 1 TAB TABLET PO SCH (08:18)
[2021-10-27] MEDS: ASCORBIC ACID 500 MG TABLET GT SCH (08:19)
[2021-10-27] MEDS: FERROUS SULFATE (325 MG) 325 MG/TAB TABLET GT SCH (08:19)
[2021-10-27] MEDS: METOCLOPRAMIDE HCL 10 MG TABLET GT SCH ×2 (08:19→17:03)
[2021-10-27] MEDS: MULTIVITAMINS,THERAGRAN 1 UDTAB TABLET GT SCH (08:19)
[2021-10-27] MEDS: SULFAMETH/TRIMETH 800/160 MG 1 UDTAB TABLET PEG SCH ×2 (08:19→20:21)
[2021-10-27] MEDS: MIDODRINE HCL (5MG) 5 MG TABLET GT SCH ×3 (08:20→17:03)
--- NOTE | 2021-10-27 09:30 | NUR ---
RN OPENING NOTE RECEIVED PATIENT RESTING IN BED. OBTUNDED AT BASELINE. NO S/SX OF PAIN NOTED AT THIS TIME. CONTINUES ON MECHANICAL VENT WITH PATIENT TOLERATING SETTINGS WELL. IV ACCESS TO RIGHT UPPER ARM MIDLINE #18G INTACT, PATENT AND SALINE LOCKED. HD ACCESS TO RIGHT GROIN FEMORAL LINE. CONTINUES ON TF NEPRO @ 60CC/HR. NO RESIDUAL NOTED AT THIS TIME. CONTINUES ON TELE MONITOR WITH CURRENT READING ST HR 100'S. CALL LIGHT WITHIN REACH. FREQUENT SAFETY CHECKS MADE. ASPIRATION, FALL AND SAFETY PRECAUTIONS MAINTAINED. WILL CONTINUE TO MONITOR.
[2021-10-27] MEDS: INSULIN REGULAR, HUMAN 100 UNIT/ML 3 ML VIAL SQ PRN ×3 (11:11→23:14)
[2021-10-27 12:00] VITALS: BP 111/72
[2021-10-27 16:00] VITALS: BP 117/78
--- NOTE | 2021-10-27 19:26 | NUR ---
RN CLOSING NOTE PT IS RESTING IN BED ASLEEP. OBTUNDED AT BASELINE. NO S/SX OF PAIN NOTED AT THIS TIME. CONTINUES ON MECHANICAL VENT WITH PATIENT TOLERATING SETTINGS WELL. IV ACCESS TO RIGHT UPPER ARM MIDLINE #18G INTACT, PATENT AND SALINE LOCKED. HD ACCESS TO RIGHT GROIN FEMORAL LINE. CONTINUES ON TF NEPRO @ 60CC/HR. CONTINUES ON TELE MONITOR WITH CURRENT READING ST HR 100'S. CALL LIGHT WITHIN REACH. FREQUENT SAFETY CHECKS MADE. ASPIRATION, FALL AND SAFETY PRECAUTIONS MAINTAINED. PT ENDORSED TO GLASS WASHER NURSE FOR DENNIS.
--- NOTE | 2021-10-27 19:30 | NUR ---
RN OPENING NOTE PT RECEIVED IN BED, OBTUNDED, NON-VERBAL. ON MECHANICAL VENT WITH ALL PRESCRIBED SETTINGS SATING AT 100% TOLERATING WELL WITH NO SIGNS OF LABORED BREATHING OR DISTRESS. ON TELE MONITOR WITH ST. PT HAS RIGHT SOFT WRIST RESTRAINT AND R SOFT MITTEN. ON GT FEEDING INFUSING NEPRO @60ML/HR, TOLERATING WELL, FLUSHES WELL. NO RESIDUALS NOTED. IV ACCESS IS AT ALEX MIDLINE AND R GROIN FEM HD CATH. ALL SAFETY MEASURES IN PLACE. BED IS LOCKED IN LOWEST POSITION X3 BED RAILS UP. WILL CONTINUE TO MONITOR THIS SHIFT.
[2021-10-27 20:00] VITALS: BP 119/74
[2021-10-28] VITALS: BP 129/73
[2021-10-28 04:00] VITALS: BP 116/72
[2021-10-28] MEDS: LORAZEPAM 1 MG TABLET GT PRN (05:03)
[2021-10-28] MEDS: SEVELAMER CARBONATE 800 MG POWD.PACK GT SCH ×3 (05:03→20:06)
[2021-10-28] MEDS: BLOOD SUGAR DIAGNOSTIC 1 EACH STRIP IN SCH ×4 (05:28→23:24)
--- NOTE | 2021-10-28 07:15 | NUR ---
RN CLOSING NOTE NO SIGNIFICANT CHANGES THROUGHOUT THE SHIFT. PT IS OBTUNDED, NON-VERBAL. ON MECHANICAL VENT WITH ALL PRESCRIBED SETTINGS SATING AT 100% TOLERATING WELL WITH NO SIGNS OF LABORED BREATHING OR DISTRESS. ON TELE MONITOR WITH ST HR OF 100S. PT HAS RIGHT SOFT WRIST RESTRAINT AND R SOFT MITTEN. ON GT FEEDING INFUSING NEPRO @60ML/HR, TOLERATING WELL, FLUSHES WELL. NO RESIDUALS NOTED. IV ACCESS IS AT ALEX MIDLINE AND R GROIN FEM HD CATH. ALL DUE MEDS GIVEN. ALL NEEDS ATTENDED TO. ALL SAFETY MEASURES IMPLEMENTED. BED IS LOCKED IN LOWEST POSITION X3 BED RAILS UP. WILL ENDORSE TO AM SHIFT NURSE FOR DENNIS.
[2021-10-28 07:20] LABS: BASOPHILS # (AUTO) 0.1 K/uL (0.0-0.2); BASOPHILS % (AUTO) 0.5 % (0.0-2.0); EOSINOPHILS % (AUTO) 12.2 % (0.0-6.0); HEMATOCRIT 34 % (39-51); HEMOGLOBIN 10.7 g/dL (13.5-17.5); LYMPHOCYTES # (AUTO) 1.2 K/uL (0.8-4.8); LYMPHOCYTES % (AUTO) 9.1 % (20.0-44.0); MEAN CORPUSCULAR HGB CONC 32 g/dl (31.0-36.0); MEAN CORPUSCULAR VOLUME 98 fL (80-96); MONOCYTES # (AUTO) 1.3 K/uL (0.1-1.30); NEUTROPHILS % (AUTO) 68.2 % (43.0-81.0); PLATELET COUNT (AUTO) 206 K/uL (150-450); RED BLOOD CELL COUNT(AUTO) 3.43 MIL/uL (4.5-6.0); WHITE BLOOD COUNT (AUTO) 13.2 K/uL (4.3-11.0)
--- NOTE | 2021-10-28 07:30 | NUR ---
RN OPENING NOTE PT IS OBTUNDED, NON-VERBAL. ON MECHANICAL VENT WITH ALL PRESCRIBED SETTINGS SATING AT 100% TOLERATING WELL WITH NO SIGNS OF LABORED BREATHING OR DISTRESS. ON TELE MONITOR WITH ST HR OF 100S. PT HAS RIGHT SOFT WRIST RESTRAINT AND R SOFT MITTEN. ON GT FEEDING INFUSING NEPRO @60ML/HR, TOLERATING WELL, FLUSHES WELL. NO RESIDUALS NOTED. IV ACCESS IS AT ALEX MIDLINE AND R GROIN FEM HD CATH. ALL SAFETY MEASURES IMPLEMENTED. BED IS LOCKED IN LOWEST POSITION X3 BED RAILS UP. WILL CONTINUE TO MONITOR.
[2021-10-28 07:50] LABS: CALCIUM, SERUM 10.4 mg/dL (8.5-10.1); PHOSPHORUS 4.5 mg/dL (2.5-4.9); POTASSIUM 4.9 mmol/L (3.5-5.1)
[2021-10-28 08:00] VITALS: BP 105/78
[2021-10-28 08:07] LABS: CREATININE 7.8 mg/dL (0.6-1.3); MAGNESIUM 4.1 mg/dL (1.8-2.4)
[2021-10-28] MEDS: ASCORBIC ACID 500 MG TABLET GT SCH (08:54)
[2021-10-28] MEDS: MIDODRINE HCL (5MG) 5 MG TABLET GT SCH ×3 (08:55→17:06)
[2021-10-28] MEDS: MULTIVITAMINS,THERAGRAN 1 UDTAB TABLET GT SCH (08:55)
[2021-10-28] MEDS: CHLORHEXIDINE GLUCONATE 15 ML UDC MM SCH ×2 (08:55→20:06)
[2021-10-28] MEDS: DOCUSATE SODIUM LIQ 100 MG/10 ML UDC GT SCH ×2 (08:55→20:06)
[2021-10-28] MEDS: FERROUS SULFATE (325 MG) 325 MG/TAB TABLET GT SCH (08:55)
[2021-10-28] MEDS: VIT B CMPLX 3/FA/VIT C/BIOTIN 1 TAB TABLET PO SCH (08:55)
[2021-10-28] MEDS: METOCLOPRAMIDE HCL 10 MG TABLET GT SCH ×2 (08:55→17:06)
[2021-10-28] MEDS: SULFAMETH/TRIMETH 800/160 MG 1 UDTAB TABLET PEG SCH ×2 (08:55→20:06)
[2021-10-28] MEDS: PANTOPRAZOLE 40 MG/PACK PACK GT SCH (08:55)
[2021-10-28] MEDS: THERAHONEY GEL 1.5 OZ TUBE TP SCH ×2 (08:56)
[2021-10-28] MEDS: PROSOURCE / PROSTAT (PYXIS) 30 ML UDC GT SCH (08:56)
[2021-10-28 12:00] VITALS: BP 118/84
[2021-10-28] MEDS: EPOETIN ALFA-EPBX 4,000 UNIT/ML VIAL SQ SCH (14:46)
[2021-10-28 16:00] VITALS: BP 110/68
--- NOTE | 2021-10-28 19:33 | NUR ---
RN OPENING NOTE RECEIVED PT IN BED, OBTUNDED, NON-VERBAL. ON MECHANICAL VENT WITH ALL PRESCRIBED SETTINGS O2 SATURATION AT 100%, WITH NO SOB OR S/S OF RESPIRATORY DISTRESS NOTED. ON EXTERNAL PUBLISHING SYSTEMS ANALYST READING ST 102 BPM. WITH RIGHT SOFT WRIST RESTRAINT AND R SOFT MITTEN, CIRCULATION CHECKED AND TOLERATING WELL. GTUBE INTACT AND PATENT RUNNING NEPRO @ 60ML/HR, TOLERATING WELL. IV ACCESS ALEX MIDLINE AND R GROIN FEM HD CATH. SAFETY PRECAUTIONS IN PLACE. BED IN LOWEST LOCKED POSITION, HOB ELEVATED, SIDE RAILS UP X3, AND BED ALARM ON. ALL NEEDS MET AT THIS TIME.
[2021-10-28 20:00] VITALS: BP 131/71
[2021-10-29] VITALS: BP 99/71
[2021-10-29 04:00] VITALS: BP 107/60
[2021-10-29] MEDS: SEVELAMER CARBONATE 800 MG POWD.PACK GT SCH ×3 (04:10→21:35)
[2021-10-29] MEDS: BLOOD SUGAR DIAGNOSTIC 1 EACH STRIP IN SCH ×3 (06:01→17:43)
--- NOTE | 2021-10-29 06:34 | NUR ---
RN CLOSING NOTE PT IN BED, OBTUNDED, NON-VERBAL. ON MECHANICAL VENT WITH ALL PRESCRIBED SETTINGS O2 SATURATION AT 100%, WITH NO SOB OR S/S OF RESPIRATORY DISTRESS NOTED. ON EXTERNAL TEST HOLE DRILLER READING ST 107 BPM. WITH RIGHT SOFT WRIST RESTRAINT AND R SOFT MITTEN, CIRCULATION CHECKED AND TOLERATING WELL. GTUBE INTACT AND PATENT, FEEDING ON HOLD SINCE MIDNIGHT FOR PROCEDURE TODAY. IV ACCESS ALEX MIDLINE AND R GROIN FEM HD CATH. ALL WOUND CARE DONE. ALL DUE MEDS GIVEN ORDERED. SAFETY PRECAUTIONS IN PLACE AT ALL TIMES. BED IN LOWEST LOCKED POSITION, HOB ELEVATED, SIDE RAILS UP X3, AND BED ALARM ON. ALL NEEDS MET AT THIS TIME AND WILL ENDORSE TO ONCOMING NURSE FOR DENNIS.
[2021-10-29 07:21] LABS: BASOPHILS # (AUTO) 0.1 K/uL (0.0-0.2); BASOPHILS % (AUTO) 0.7 % (0.0-2.0); EOSINOPHILS % (AUTO) 11.8 % (0.0-6.0); HEMATOCRIT 29 % (39-51); HEMOGLOBIN 9.6 g/dL (13.5-17.5); LYMPHOCYTES # (AUTO) 1.1 K/uL (0.8-4.8); LYMPHOCYTES % (AUTO) 10.6 % (20.0-44.0); MEAN CORPUSCULAR HGB CONC 33 g/dl (31.0-36.0); MEAN CORPUSCULAR VOLUME 97 fL (80-96); MONOCYTES # (AUTO) 1.5 K/uL (0.1-1.30); MONOCYTES % (AUTO) 14.2 % (2.0-12.0); NEUTROPHILS # (AUTO) 6.4 K/uL (1.8-8.9); NEUTROPHILS % (AUTO) 62.7 % (43.0-81.0); PLATELET COUNT (AUTO) 204 K/uL (150-450); RED BLOOD CELL COUNT(AUTO) 2.99 MIL/uL (4.5-6.0); WHITE BLOOD COUNT (AUTO) 10.3 K/uL (4.3-11.0)
[2021-10-29 07:24] LABS: CREATININE 5.6 mg/dL (0.6-1.3); MAGNESIUM 3.2 mg/dL (1.8-2.4); POTASSIUM 4.7 mmol/L (3.5-5.1)
[2021-10-29] MEDS: PANTOPRAZOLE 40 MG/PACK PACK GT SCH (07:30)
--- NOTE | 2021-10-29 07:30 | NUR ---
RN OPENING NOTE PT IN BED, OBTUNDED, NON-VERBAL. ON MECHANICAL VENT WITH ALL PRESCRIBED SETTINGS O2 SATURATION AT 100%, WITH NO SOB OR S/S OF RESPIRATORY DISTRESS NOTED. ON EXTERNAL VACUUM CLEANER ASSEMBLER READING ST 103 BPM. WITH RIGHT SOFT WRIST RESTRAINT AND R SOFT MITTEN, CIRCULATION CHECKED AND TOLERATING WELL. GTUBE INTACT AND PATENT, FEEDING ON HOLD SINCE MIDNIGHT FOR PROCEDURE TODAY. IV ACCESS ALEX MIDLINE AND R GROIN FEM HD CATH. SAFETY PRECAUTIONS IN PLACE AT ALL TIMES. BED IN LOWEST LOCKED POSITION, HOB ELEVATED, SIDE RAILS UP X3, AND BED ALARM ON. WILL CONTINUE TO MONITOR.
[2021-10-29 08:00] VITALS: BP 100/72
[2021-10-29] MEDS: METOCLOPRAMIDE HCL 10 MG TABLET GT SCH ×2 (09:00→17:16)
[2021-10-29] MEDS: MULTIVITAMINS,THERAGRAN 1 UDTAB TABLET GT SCH (09:00)
[2021-10-29] MEDS: MIDODRINE HCL (5MG) 5 MG TABLET GT SCH ×3 (09:00→17:16)
[2021-10-29] MEDS: SULFAMETH/TRIMETH 800/160 MG 1 UDTAB TABLET PEG SCH ×2 (09:00→21:35)
[2021-10-29] MEDS: VIT B CMPLX 3/FA/VIT C/BIOTIN 1 TAB TABLET PO SCH (09:00)
[2021-10-29] MEDS: ASCORBIC ACID 500 MG TABLET GT SCH (09:00)
[2021-10-29] MEDS: FERROUS SULFATE (325 MG) 325 MG/TAB TABLET GT SCH (09:00)
[2021-10-29] MEDS: PROSOURCE / PROSTAT (PYXIS) 30 ML UDC GT SCH (09:00)
[2021-10-29] MEDS: DOCUSATE SODIUM LIQ 100 MG/10 ML UDC GT SCH ×2 (09:00→21:35)
[2021-10-29] MEDS: CHLORHEXIDINE GLUCONATE 15 ML UDC MM SCH ×2 (09:27→21:35)
[2021-10-29] MEDS: THERAHONEY GEL 1.5 OZ TUBE TP SCH ×2 (09:27)
--- NOTE | 2021-10-29 09:34 | NUR ---
RN NOTE ALL AM MEDS HELD DUE TO PT BEING NPO FOR SCHEDULED PERMACATH PLACEMENT THIS AM. WILL CONTINUE TO MONITOR AND UPDATE PRN.
[2021-10-29] MEDS ORDERED: HEPARIN SODIUM, PORCINE 1,000 UNIT/ML VIAL ONE (10:10)
[2021-10-29] MEDS ORDERED: LIDOCAINE 1% INJ 50 ML MDV IJ ONE (10:10)
--- NOTE | 2021-10-29 10:27 | NUR ---
RN NOTE TRANSFERRED CARE TO SURGERY RN. PT STABLE UPON TRANSFER OF CARE. PT TO BE TRANSFERRED TO SURGERY FOR PERMACATH PLACEMENT. WILL CONTINUE UPDATE PRN.
[2021-10-29] MEDS ORDERED: IOHEXOL 240MG/ML 50 ML IV ONE (11:00)
[2021-10-29 12:00] VITALS: BP 97/74
--- NOTE | 2021-10-29 12:00 | NUR ---
RN NOTE PT RETURNED FROM SURGERY WITH R CHEST WALL PERMACATH. PT V/S STABLE AND PT REMAINED STABLE THROUGHOUT SURGERY PER RENDERER. WILL CONTINUE TO MONITOR.
[2021-10-29] MEDS: NEPRO 1,000 ML BOTTLE GT SCH (12:47)
[2021-10-29 16:00] VITALS: BP 106/63
--- NOTE | 2021-10-29 18:55 | NUR ---
RN CLOSING NOTE PT REMAINED STABLE THROUGHOUT SHIFT. PT IN BED, OBTUNDED, NON-VERBAL. ON MECHANICAL VENT WITH ALL PRESCRIBED SETTINGS O2 SATURATION AT 100%, WITH NO SOB OR S/S OF RESPIRATORY DISTRESS NOTED. ON EXTERNAL INFORMATION SECURITY ENGINEER READING ST 101 BPM. WITH RIGHT SOFT WRIST RESTRAINT AND R SOFT MITTEN, CIRCULATION CHECKED AND TOLERATING WELL. GTUBE INTACT AND PATENT RUNNING NEPRO@60ML/HR. IV ACCESS ALEX MIDLINE AND R GROIN FEM HD CATH NEWLY PLACED. SAFETY PRECAUTIONS IN PLACE AT ALL TIMES. BED IN LOWEST LOCKED POSITION, HOB ELEVATED, SIDE RAILS UP X3, AND BED ALARM ON. WILL ENDORSE TO SKEIN YARD DRIER RN.
--- NOTE | 2021-10-29 19:10 | NUR ---
RN NOTES RECEIVED PATIENT LYING IN BED, OBTUNDED. ON TRACH TO MECHANICAL VENTILATION SETTINGS, PORTEX 8, AC 15, TV 500, FI02 30, PEEP 5, TOLERATED WELL. NO SOB NOTED. AMBU BAG AT BED SIDE ALARMS SET PER PROTOCOL AND AUDIBLE. NO ACUTE DISTRESS, WITH ALEX MID LINE PATENT AND FLUSHES WELL, R FEMORAL HD CATHETER, G-TUBE IN PLACE, CHECKED FOR PLACEMENT, O RESIDUAL, ONGOING GTF OF NEPRO AT 60 ML/HR. WITH RIGHT SOFT WRIST RESTRAINT . RELEASED AND CHECKED FOR CIRCULATION Q 2 HOURS. SAFETY MEASURE PROVIDED. BED IN LOWEST POSITION, LOCKED. BED ALARM ON. ALL SAFETY MEASURES IN PLACE AT ALL TIMES.
[2021-10-29 20:00] VITALS: BP 112/72
[2021-10-30] VITALS: BP 107/70
--- NOTE | 2021-10-30 00:15 | NUR ---
RN NOTES BS 856 MG/DL NO COVERAGE PATIENT ON GT FEEDING
[2021-10-30 04:00] VITALS: BP 113/80
[2021-10-30] MEDS: ONDANSETRON HCL/PF 4 MG/2 ML VIAL IVP PRN ×3 (04:27→20:56)
[2021-10-30] MEDS: SEVELAMER CARBONATE 800 MG POWD.PACK GT SCH ×3 (05:32→20:56)
[2021-10-30] MEDS: BLOOD SUGAR DIAGNOSTIC 1 EACH STRIP IN SCH ×5 (06:12→23:57)
--- NOTE | 2021-10-30 06:52 | NUR ---
RN NOTES PATIENT LYING ON BED. OBTUNDED WITH EYES OPEN, NO SIGNIFICANT CHANGES THROUGHOUT THE SHIFT. PATIENT ON TRACH CONNECTED TO MECHANICAL VENTILATOR, TOLERATING WELL. NOT IN RESPIRATORY DISTRESS, EVEN AND UNLABORED BREATHING. NOTED WITH ALEX MIDLINE AND R GROIN FEM HD CATH, NO BLEEDING AT SITE. G TUBE IN PLACE PATENT AND INTACT. TUBE FEEDING RUNNING 60 CC/HR, INFUSING WELL, NOTED WITH R SOFT WRIST, RENEWED RESTRAINT ORDER AT 0630, ALL DUE MED GIVEN, ACCU CHECK Q6H, SAFETY MEASURES IN PLACE, BED IN LOWEST POSITION, WILL ENDORSE TO THE DAY SHIFT NURSE
[2021-10-30 07:19] LABS: MAGNESIUM 3.6 mg/dL (1.8-2.4); POTASSIUM 4.9 mmol/L (3.5-5.1)
--- NOTE | 2021-10-30 07:30 | NUR ---
[employer] LIBRARY DIRECTOR OPENING NOTES: RECEIVED PT IN BED OBTUNDED,OPEN EYES, CONNECTED TO VENT ORDERED, RESPIRATION IS UNLABORED, CONNECTED TO GTF OF NEPRO @60 ML/HR WELL TOLERATED,WITH RIGHT UPPER ARM MIDLINE AND RIGHT FEMORAL HD CATH,NO BLEEDING NOTED., PT VOMITED X 1,HOLD FEEDING, SUCTION DONE, KEPT HEAD OF BED ELEVATED, NO s/s OF PAIN OR DISCOMFORT,BED KEPT IN LOW AND LOCKED POSITON, WILL MONITOR PT
[2021-10-30 07:41] LABS: PHOSPHORUS 5.5 mg/dL (2.5-4.9)
[2021-10-30 07:48] LABS: CALCIUM, SERUM 9.7 mg/dL (8.5-10.1)
[2021-10-30] MEDS: PANTOPRAZOLE 40 MG/PACK PACK GT SCH (07:59)
[2021-10-30 08:00] VITALS: BP 110/60
[2021-10-30] MEDS: DOCUSATE SODIUM LIQ 100 MG/10 ML UDC GT SCH ×2 (08:00→20:55)
[2021-10-30] MEDS: CHLORHEXIDINE GLUCONATE 15 ML UDC MM SCH ×2 (08:00→20:55)
[2021-10-30] MEDS: ASCORBIC ACID 500 MG TABLET GT SCH (08:00)
[2021-10-30] MEDS: PROSOURCE / PROSTAT (PYXIS) 30 ML UDC GT SCH (08:00)
[2021-10-30] MEDS: METOCLOPRAMIDE HCL 10 MG TABLET GT SCH ×2 (08:01→16:51)
[2021-10-30] MEDS: MIDODRINE HCL (5MG) 5 MG TABLET GT SCH ×3 (08:01→16:51)
[2021-10-30] MEDS: VIT B CMPLX 3/FA/VIT C/BIOTIN 1 TAB TABLET PO SCH (08:05)
[2021-10-30] MEDS: SULFAMETH/TRIMETH 800/160 MG 1 UDTAB TABLET PEG SCH ×2 (08:05→20:55)
[2021-10-30] MEDS: MULTIVITAMINS,THERAGRAN 1 UDTAB TABLET GT SCH (08:05)
[2021-10-30] MEDS: FERROUS SULFATE (325 MG) 325 MG/TAB TABLET GT SCH (08:06)
[2021-10-30] MEDS: LORAZEPAM 1 MG TABLET GT PRN (08:29)
[2021-10-30 09:17] LABS: BASOPHILS % (AUTO) 0.2 % (0.0-2.0); EOSINOPHILS % (AUTO) 10.1 % (0.0-6.0); HEMATOCRIT 32 % (39-51); HEMOGLOBIN 10.3 g/dL (13.5-17.5); LYMPHOCYTES # (AUTO) 0.8 K/uL (0.8-4.8); LYMPHOCYTES % (AUTO) 6.2 % (20.0-44.0); MEAN CORPUSCULAR HGB CONC 32 g/dl (31.0-36.0); MEAN CORPUSCULAR VOLUME 97 fL (80-96); MONOCYTES # (AUTO) 1.7 K/uL (0.1-1.30); MONOCYTES % (AUTO) 13.3 % (2.0-12.0); NEUTROPHILS # (AUTO) 8.8 K/uL (1.8-8.9); NEUTROPHILS % (AUTO) 70.2 % (43.0-81.0); PLATELET COUNT (AUTO) 205 K/uL (150-450); RED BLOOD CELL COUNT(AUTO) 3.32 MIL/uL (4.5-6.0); WHITE BLOOD COUNT (AUTO) 12.5 K/uL (4.3-11.0)
[2021-10-30] MEDS: SILVER SULFADIAZINE CREAM 25 GM TUBE TP SCH (09:53)
[2021-10-30] MEDS: THERAHONEY GEL 1.5 OZ TUBE TP SCH ×2 (09:54→09:55)
[2021-10-30 12:00] VITALS: BP 142/80
[2021-10-30] MEDS: HYDROCODONE/APAP 5/325MG TABLET GT PRN (12:56)
[2021-10-30] MEDS: hydrOXYzine PAMOATE 25 MG CAPSULE GT PRN (13:02)
[2021-10-30] MEDS: LORAZEPAM INJ 2 MG/ML VIAL IV PRN ×2 (13:22→20:56)
--- NOTE | 2021-10-30 13:30 | NUR ---
rn notes: pt is combative continue to remove trach tube while wrist restraint on, abke to turn his body and moved, norco and atarax was given earlier with no help, charge nurse called the dictor with order to give ativan IV every 6 hours as needed, ativan given as ordered
--- NOTE | 2021-10-30 14:00 | NUR ---
rn note: noted right arm mid line hard to flush called the doctor with order to insert new midline, new midline inserted to left upper arm
[2021-10-30 16:00] VITALS: BP 106/79
[2021-10-30] MEDS: EPOETIN ALFA-EPBX 4,000 UNIT/ML VIAL SQ SCH (16:51)
--- NOTE | 2021-10-30 18:00 | NUR ---
rn notes: pt completed dialysis with 2 liters fluid out,BP 112/64
[2021-10-30] MEDS: NEPRO 1,000 ML BOTTLE GT PRN (18:16)
--- NOTE | 2021-10-30 19:10 | NUR ---
RN NOTES PT IN BED, OBTUNDED, NON-VERBAL. ON MECHANICAL VENT WITH ALL PRESCRIBED SETTINGS O2 SATURATION AT 100%, WITH NO SOB OR S/S OF RESPIRATORY DISTRESS NOTED. ON EXTERNAL NATIONAL DEDICATED TRUCK DRIVER READING ST 105 BPM. WITH RIGHT SOFT WRIST RESTRAINT AND R SOFT MITTEN, CIRCULATION CHECKED AND TOLERATING WELL. GTUBE INTACT AND PATENT RUNNING NEPRO @ 50ML/HR, TOLERATING WELL. IV ACCESS DEBBIE MIDLINE AND R GROIN FEM HD CATH. SAFETY PRECAUTIONS IN PLACE. BED IN LOWEST LOCKED POSITION, HOB ELEVATED, SIDE RAILS UP X3, AND BED ALARM ON. ALL NEEDS MET AT THIS TIME.
--- NOTE | 2021-10-30 19:24 | NUR ---
RN notes: PT IN BED, OBTUNDED, NON-VERBAL. ON MECHANICAL VENT WITH ALL PRESCRIBED SETTINGS O2 SATURATION AT 100%, WITH NO SOB OR S/S OF RESPIRATORY DISTRESS NOTED. ON EXTERNAL MOLD MAKER PLASTIC MOLDS READING ST 105 BPM. WITH RIGHT SOFT WRIST RESTRAINT AND R SOFT MITTEN, CIRCULATION CHECKED AND TOLERATING WELL. GTUBE INTACT AND PATENT RUNNING NEPRO @ 50ML/HR, TOLERATING WELL. IV ACCESS DEBBIE MIDLINE AND R GROIN FEM HD CATH. SAFETY PRECAUTIONS IN PLACE. BED IN LOWEST LOCKED POSITION, HOB ELEVATED, SIDE RAILS UP X3, AND BED ALARM ON. ALL NEEDS MET AT THIS TIME.
[2021-10-30 20:00] VITALS: BP 130/89
--- NOTE | 2021-10-30 20:56 | NUR ---
RN NOTES PATIENT IS RESTLESS KEEP REMOVING HIS TRACH EVEN WITH RESTRAINTS. WITH EPISODES OF EMESIS. FEEDING TURNED OFF. PRN ZOFRAN AND ATIVAN GIVEN..
--- NOTE | 2021-10-30 22:45 | NUR ---
RN NOTES PATIENT DISCHARGE TO HOME VIA PRIVATE CAR DAUGHTER WILL DRIVE HER HOME. WHEEL PATIENT TO THE FRONT. ALL BELONGINGS AND WALKER GIVEN. PATIENT REMAINS STABLE. VITAL SIGNS TAKEN AND RECORDED BP 130/65 IA 88 TEMP 98 O2 SAT 99%. HEALTH TEACHING INSTRUCTED TO PATIENT AND FAMILY MEMBER. Addendum: 10/30/21 at 2305 by FARHEEN CHI RN ADDENDUM WRONG ENTRY NOT FOR THIS PATIENT. ITS FOR 109 INSTEAD OF 111.
--- NOTE | 2021-10-30 23:58 | NUR ---
RN NOTES BS 94 MG/DL NO COVERAGE
[2021-10-31] VITALS: BP 123/94
[2021-10-31 04:00] VITALS: BP 120/66
[2021-10-31] MEDS: ONDANSETRON HCL/PF 4 MG/2 ML VIAL IVP PRN (05:07)
[2021-10-31] MEDS: SEVELAMER CARBONATE 800 MG POWD.PACK GT SCH ×3 (05:07→21:24)
[2021-10-31] MEDS: BLOOD SUGAR DIAGNOSTIC 1 EACH STRIP IN SCH ×3 (05:53→17:59)
--- NOTE | 2021-10-31 05:54 | NUR ---
RN NOTES BS 109 MG/DL NO COVERAGE GIVEN
--- NOTE | 2021-10-31 06:59 | NUR ---
RN NOTES PATIENT LYING ON BED. OBTUNDED WITH EYES OPEN, NO SIGNIFICANT CHANGES THROUGHOUT THE SHIFT. PATIENT ON TRACH CONNECTED TO MECHANICAL VENTILATOR, TOLERATING WELL. NOT IN RESPIRATORY DISTRESS, EVEN AND UNLABORED BREATHING. NOTED WITH DEBBIE MIDLINE AND R GROIN FEM HD CATH, NO BLEEDING AT SITE. G TUBE IN PLACE PATENT AND INTACT. TUBE FEEDING HELD DUE TO EMESIS, WITH 2X EMESIS. DOC TANK AWARE NOTED WITH R SOFT WRIST, RENEWED RESTRAINT ORDER AT 0630, ALL DUE MED GIVEN, ACCU CHECK Q6H, SAFETY MEASURES IN PLACE, BED IN LOWEST POSITION, WILL ENDORSE TO THE DAY SHIFT NURSE
--- NOTE | 2021-10-31 07:16 | NUR ---
RN OPENING NOTES RECEIVED PT IN BED OBTUNDED, OPEN EYES, CONNECTED TO VENT ORDERED, RESPIRATION IS UNLABORED, CONNECTED TO GTF OF NEPRO. CURRENTLY HOLDING DUE TO VOMITING. WILL START AT LOW RATE AND ASSESS THROUGHOUT THE DAY. IV ACCESS AT RIGHT UPPER ARM MIDLINE AND RIGHT FEMORAL HD CATH,NO BLEEDING NOTED. HEAD OF BED ELEVATED, NO S/S OF PAIN OR DISCOMFORT, BED KEPT IN LOW AND LOCKED POSITION, WILL MONITOR PT THROUGHOUT SHIFT.
[2021-10-31 08:00] VITALS: BP 160/92
[2021-10-31] MEDS: PROSOURCE / PROSTAT (PYXIS) 30 ML UDC GT SCH (08:20)
[2021-10-31] MEDS: CHLORHEXIDINE GLUCONATE 15 ML UDC MM SCH ×2 (08:20→21:24)
[2021-10-31] MEDS: THERAHONEY GEL 1.5 OZ TUBE TP SCH ×2 (08:21)
[2021-10-31] MEDS: SILVER SULFADIAZINE CREAM 25 GM TUBE TP SCH (08:21)
[2021-10-31] MEDS: DOCUSATE SODIUM LIQ 100 MG/10 ML UDC GT SCH ×2 (08:22→21:24)
[2021-10-31] MEDS: PANTOPRAZOLE 40 MG/PACK PACK GT SCH (08:22)
[2021-10-31] MEDS: SULFAMETH/TRIMETH 800/160 MG 1 UDTAB TABLET PEG SCH ×2 (08:22→21:24)
[2021-10-31] MEDS: FERROUS SULFATE (325 MG) 325 MG/TAB TABLET GT SCH (08:22)
[2021-10-31] MEDS: ASCORBIC ACID 500 MG TABLET GT SCH (08:22)
[2021-10-31] MEDS: MULTIVITAMINS,THERAGRAN 1 UDTAB TABLET GT SCH (08:22)
[2021-10-31] MEDS: METOCLOPRAMIDE HCL 10 MG TABLET GT SCH ×2 (08:22→16:39)
[2021-10-31] MEDS: VIT B CMPLX 3/FA/VIT C/BIOTIN 1 TAB TABLET PO SCH (08:22)
[2021-10-31] MEDS: MIDODRINE HCL (5MG) 5 MG TABLET GT SCH ×3 (08:30→16:39)
[2021-10-31] MEDS: INSULIN REGULAR, HUMAN 100 UNIT/ML 3 ML VIAL SQ PRN ×2 (11:17→18:13)
[2021-10-31 12:00] VITALS: BP 129/82
[2021-10-31 16:00] VITALS: BP 120/82
--- NOTE | 2021-10-31 19:00 | NUR ---
RN NOTE RECEIVED PATIENT IN BED, OBTUNDED, IN NO ACUTE DISTRESS AT THIS TIME. ON TRACH TO MECHANICAL VENT WITH SETTINGS PRESCRIBED, SATURATION AT 99%, ST ON THE MONITOR, HR IS 110. NOTED DEBBIE MIDLINE, PATENT AND FLUSHING WELL, AND R FEMORAL HD CATH. NO S/S OF INFECTION. NOTED GTUBE INTACT POSITIVE PLACEMENT NOTED, NO RESIDUAL, WITH TUBE FEEDING OF NEPRO AT 50 ML/HR. SOFT RESTRAINT IN PLACE AT R HAND/WRIST, SKIN AND CIRCULATION WAS CHECKED AND WITHIN NORMAL LIMITS. SAFETY MEASURES IMPLEMENTED. PATIENT BED ALARM IS ON. HEAD OF BED ELEVATED. BED IS LOCKED, IN LOWEST POSITION AND SIDE RAILS UP. CALL LIGHT WITHIN REACH OF THE PATIENT. WILL CONTINUE TO MONITOR AND REASSESS FOR ANY CHANGES.
--- NOTE | 2021-10-31 19:13 | NUR ---
RN CLOSING NOTES PT IN BED OBTUNDED, OPEN EYES, CONNECTED TO VENT ORDERED, RESPIRATION IS UNLABORED, CONNECTED TO GTF OF NEPRO. CURRENTLY RUNNING 30CC/HR. NO EMESIS NOTED. IV ACCESS AT RIGHT UPPER ARM MIDLINE AND RIGHT FEMORAL HD CATH,NO BLEEDING NOTED. HEAD OF BED ELEVATED, NO S/S OF PAIN OR DISCOMFORT, BED KEPT IN LOW AND LOCKED POSITION, WILL ENDORSE TO CLINICAL APPEALS RN NURSE FOR DENNIS.
[2021-10-31 20:00] VITALS: BP 105/76
[2021-11-01] VITALS: BP 119/83
[2021-11-01] MEDS: BLOOD SUGAR DIAGNOSTIC 1 EACH STRIP IN SCH ×4 (00:30→17:43)
[2021-11-01 04:00] VITALS: BP 115/84
[2021-11-01] MEDS: SEVELAMER CARBONATE 800 MG POWD.PACK GT SCH ×3 (05:14→20:52)
[2021-11-01 06:55] LABS: BASOPHILS # (AUTO) 0.2 K/uL (0.0-0.2); BASOPHILS % (AUTO) 1.2 % (0.0-2.0); HEMATOCRIT 33 % (39-51); HEMOGLOBIN 10.3 g/dL (13.5-17.5); LYMPHOCYTES # (AUTO) 1.6 K/uL (0.8-4.8); LYMPHOCYTES % (AUTO) 8.6 % (20.0-44.0); MEAN CORPUSCULAR HGB CONC 32 g/dl (31.0-36.0); MEAN CORPUSCULAR VOLUME 100 fL (80-96); MONOCYTES # (AUTO) 2.5 K/uL (0.1-1.30); MONOCYTES % (AUTO) 13.1 % (2.0-12.0); NEUTROPHILS # (AUTO) 13.6 K/uL (1.8-8.9); NEUTROPHILS % (AUTO) 71.1 % (43.0-81.0); PLATELET COUNT (AUTO) 266 K/uL (150-450); RED BLOOD CELL COUNT(AUTO) 3.25 MIL/uL (4.5-6.0); WHITE BLOOD COUNT (AUTO) 19.2 K/uL (4.3-11.0)
[2021-11-01 07:24] LABS: CALCIUM, SERUM 10.5 mg/dL (8.5-10.1); CREATININE 6.9 mg/dL (0.6-1.3); MAGNESIUM 3.6 mg/dL (1.8-2.4); PHOSPHORUS 5.6 mg/dL (2.5-4.9); POTASSIUM 4.8 mmol/L (3.5-5.1)
--- NOTE | 2021-11-01 07:30 | NUR ---
RN NOTES PT FOUND SEMI FOWLERS DISPLAYING NO S/S OF DISTRESS, FLACC = 0 AND BILATERAL RISE AND FALL OF THE CHEST OBSERVED. TRACHEOSTOMY DRESSING IS CLEAN AND DRY. R FEMORAL HD CATH DRESSING IS CLEAN AND DRY. L UA ML IS PATIENT AND INTACT. VSS, RN WILL MONITOR AND TREAT THROUGHOUT SHIFT. SAFETY MEASURES IN PLACE, BED LOCKED AND IN LOWEST POSITION, SIDE RAILS UPX2, CALL LIGHT WITHIN REACH, BED ALARM ARMED.
--- NOTE | 2021-11-01 07:41 | NUR ---
covid antigen swab collected and sent to lab
--- NOTE | 2021-11-01 07:50 | NUR ---
MD COMMUNICATION RN RECEIVED CRITICAL LAB RESULT, BUN IS 91. RN ACKNOWLEDGED AND INFORMED DR ANTOINE. DID NOT GIVE ORDERS AT THIS TIME BUT INSTEAD REQUESTED PT TO BE DIALYZED EARLY TUESDAY MORNING. RN ACKNOWLEDGED AND WILL SPEAK TO DIALYSIS TEAM ABOUT SCHEDULING.
[2021-11-01 08:00] VITALS: BP 121/78
[2021-11-01] MEDS: MULTIVITAMINS,THERAGRAN 1 UDTAB TABLET GT SCH (08:26)
[2021-11-01] MEDS: VIT B CMPLX 3/FA/VIT C/BIOTIN 1 TAB TABLET PO SCH (08:26)
[2021-11-01] MEDS: PROSOURCE / PROSTAT (PYXIS) 30 ML UDC GT SCH (08:26)
[2021-11-01] MEDS: METOCLOPRAMIDE HCL 10 MG TABLET GT SCH ×2 (08:26→17:43)
[2021-11-01] MEDS: FERROUS SULFATE (325 MG) 325 MG/TAB TABLET GT SCH (08:27)
[2021-11-01] MEDS: DOCUSATE SODIUM LIQ 100 MG/10 ML UDC GT SCH ×2 (08:27→20:52)
[2021-11-01] MEDS: SULFAMETH/TRIMETH 800/160 MG 1 UDTAB TABLET PEG SCH ×2 (08:27→20:52)
[2021-11-01] MEDS: PANTOPRAZOLE 40 MG/PACK PACK GT SCH (08:27)
[2021-11-01] MEDS: CHLORHEXIDINE GLUCONATE 15 ML UDC MM SCH ×2 (08:27→20:52)
[2021-11-01] MEDS: ASCORBIC ACID 500 MG TABLET GT SCH (08:27)
[2021-11-01] MEDS: MIDODRINE HCL (5MG) 5 MG TABLET GT SCH ×3 (08:27→17:43)
[2021-11-01] MEDS: SILVER SULFADIAZINE CREAM 25 GM TUBE TP SCH (08:28)
[2021-11-01] MEDS: THERAHONEY GEL 1.5 OZ TUBE TP SCH ×2 (08:28)
--- NOTE | 2021-11-01 09:52 | NUR ---
aníbal rapid negative and spoke with HD nurse will be here at 10 am
--- NOTE | 2021-11-01 10:00 | NUR ---
HD nurse is here for treatment with tolerating well
[2021-11-01 12:00] VITALS: BP 102/73
[2021-11-01] MEDS: INSULIN REGULAR, HUMAN 100 UNIT/ML 3 ML VIAL SQ PRN (12:55)
[2021-11-01] MEDS ORDERED: Prosource GT (14:06)
[2021-11-01] MEDS ORDERED: SILV50CR32 TP (14:06)
[2021-11-01] MEDS ORDERED: COLL30OI TP (14:06)
[2021-11-01] MEDS ORDERED: SULF1TAB48 GT (14:13)
[2021-11-01] MEDS: LORAZEPAM INJ 2 MG/ML VIAL IV PRN (15:17)
[2021-11-01 16:00] VITALS: BP 124/70
[2021-11-01] MEDS: NEPRO 1,000 ML BOTTLE GT PRN (16:43)
--- NOTE | 2021-11-01 19:06 | NUR ---
RN NOTES PT FOUND SEMI FOWLERS DISPLAYING NO S/S OF DISTRESS, FLACC = 0 AND BILATERAL RISE AND FALL OF THE CHEST OBSERVED. TRACHEOSTOMY DRESSING IS CLEAN AND DRY. R FEMORAL HD CATH DRESSING IS CLEAN AND DRY. L UA ML IS PATIENT AND INTACT. BILATERAL SOFT WRISTS APPLIED, PULSES PALPATED AND CAP REFILL < 3 SECONDS BILATERALLY. SBAR AND REPORT GIVEN TO MANAGER COUNTRY RN, ALL QUESTIONS ANSWERED. SAFETY MEASURES IN PLACE, BED LOCKED AND IN LOWEST POSITION, SIDE RAILS UPX2, CALL LIGHT WITHIN REACH, BED ALARM ARMED. PT ENDORSED IN STABLE CONDITION FOR DENNIS.
--- NOTE | 2021-11-01 19:30 | NUR ---
RN NOTE PT RECEIVED IN BED. PT IS TRACH/VENT WITH CURRENT SETTINGS AT AC: 15, TV: 500, FIO2: 30%, AND PEEP OF 5. TOLERATING CURRENT SETTINGS WELL WITH O2 SATURATION AT 100%. PT IS OBTUNDED. ON MONITOR SHOWING ST. SOFT WRIST BILATERAL RESTRAINTS NOTED WITH RIGHT MITTEN. ALL SAFETY PROTOCOLS IMPLEMENTED/INITIATED. G-TUBE INTACT RUNNING NEPRO AT 50 CC/HR. NO RESIDUAL NOTED. IV ACCESS NOTED ON LEFT UPPER ARM ML, PATENT AND INTACT WITH NO INFILTRATION. RIGHT FEMORAL HD CATH NOTED WELL. ALL SAFETY MEASURES IMPLEMENTED. WILL CONTINUE TO MONITOR AND ASSESS FOR ANY CHANGES DURING SHIFT.
[2021-11-01 20:00] VITALS: BP 136/74
--- NOTE | 2021-11-01 22:59 | NUR ---
RN NOTE PT PICKED UP BY [facility] ACCOMPANIED BY RT VIRGEN. PT STABLE. VSS. REPORT GIVEN TO LON MCKINLEY AT FACILITY.
== END 2021-11-01 23:00 | DRG 711 ==
LOC: ER 12:39 → TELE1 15:22
PROVIDERS: ADMIT Nurse Practitioner Acute Care; ATTEND Nurse Practitioner Acute Care
PROC: 5A1955Z Respiratory Ventilation, Greater than 96 Consecutive Hours (ICD-10-PCS; principal; 2021-09-15)
PROC: 05HD33Z Insertion of Infusion Device into Right Cephalic Vein, Percutaneous Approach (ICD-10-PCS; 2021-09-16)
PROC: 5A1D70Z Performance of Urinary Filtration, Intermittent, Less than 6 Hours Per Day (ICD-10-PCS; 2021-09-17)
PROC: 0KBN0ZZ Excision of Right Hip Muscle, Open Approach (ICD-10-PCS; 2021-09-18)
PROC: 0W993ZZ Drainage of Right Pleural Cavity, Percutaneous Approach (ICD-10-PCS; 2021-09-18)
PROC: 0KBP0ZZ Excision of Left Hip Muscle, Open Approach (ICD-10-PCS; 2021-09-18)
PROC: 0KBP0ZZ Excision of Left Hip Muscle, Open Approach (ICD-10-PCS; 2021-09-18)
PROC: 06PY03Z Removal of Infusion Device from Lower Vein, Open Approach (ICD-10-PCS; 2021-09-22)
PROC: 05H933Z Insertion of Infusion Device into Right Brachial Vein, Percutaneous Approach (ICD-10-PCS; 2021-09-22)
PROC: 0JPW0XZ Removal of Tunneled Vascular Access Device from Lower Extremity Subcutaneous Tissue and Fascia, Open Approach (ICD-10-PCS; 2021-09-22)
PROC: 06HM33Z Insertion of Infusion Device into Right Femoral Vein, Percutaneous Approach (ICD-10-PCS; 2021-09-22)
PROC: B51BYZA Fluoroscopy of Right Lower Extremity Veins using Other Contrast, Guidance (ICD-10-PCS; 2021-09-22)
PROC: 05H933Z Insertion of Infusion Device into Right Brachial Vein, Percutaneous Approach (ICD-10-PCS; 2021-09-22)
PROC: 0KBP0ZZ Excision of Left Hip Muscle, Open Approach (ICD-10-PCS; 2021-09-25)
PROC: 0JBR0ZZ Excision of Left Foot Subcutaneous Tissue and Fascia, Open Approach (ICD-10-PCS; 2021-09-25)
PROC: 0JBQ0ZZ Excision of Right Foot Subcutaneous Tissue and Fascia, Open Approach (ICD-10-PCS; 2021-09-25)
PROC: 05H933Z Insertion of Infusion Device into Right Brachial Vein, Percutaneous Approach (ICD-10-PCS; 2021-09-26)
PROC: 05H933Z Insertion of Infusion Device into Right Brachial Vein, Percutaneous Approach (ICD-10-PCS; 2021-09-29)
PROC: 05HD33Z Insertion of Infusion Device into Right Cephalic Vein, Percutaneous Approach (ICD-10-PCS; 2021-10-05)
PROC: 0KBP0ZZ Excision of Left Hip Muscle, Open Approach (ICD-10-PCS; 2021-10-06)
PROC: 0JBR0ZZ Excision of Left Foot Subcutaneous Tissue and Fascia, Open Approach (ICD-10-PCS; 2021-10-07)
PROC: 0JBR0ZZ Excision of Left Foot Subcutaneous Tissue and Fascia, Open Approach (ICD-10-PCS; 2021-10-21)
PROC: 0KBP0ZZ Excision of Left Hip Muscle, Open Approach (ICD-10-PCS; 2021-10-22)
PROC: 0KBP0ZZ Excision of Left Hip Muscle, Open Approach (ICD-10-PCS; 2021-10-27)
PROC: 0JHN3XZ Insertion of Tunneled Vascular Access Device into Right Lower Leg Subcutaneous Tissue and Fascia, Percutaneous Approach (ICD-10-PCS; 2021-10-29)
PROC: 06HM33Z Insertion of Infusion Device into Right Femoral Vein, Percutaneous Approach (ICD-10-PCS; 2021-10-29)
PROC: B51BYZA Fluoroscopy of Right Lower Extremity Veins using Other Contrast, Guidance (ICD-10-PCS; 2021-10-29)
PROC: B51BYZZ Fluoroscopy of Right Lower Extremity Veins using Other Contrast (ICD-10-PCS; 2021-10-29)
PROC: 0JBR0ZZ Excision of Left Foot Subcutaneous Tissue and Fascia, Open Approach (ICD-10-PCS; 2021-10-29)
PROC: 05HB33Z Insertion of Infusion Device into Right Basilic Vein, Percutaneous Approach (ICD-10-PCS; 2021-10-30)
DX: T80.211A Bloodstream infection due to central venous catheter, initial encounter (principal); R65.21 Severe sepsis with septic shock; A41.50 Gram-negative sepsis, unspecified; J69.0 Pneumonitis due to inhalation of food and vomit; G93.40 Encephalopathy, unspecified; J96.10 Chronic respiratory failure, unspecified whether with hypoxia or hypercapnia; E44.0 Moderate protein-calorie malnutrition; L89.324 Pressure ulcer of left buttock, stage 4; L89.154 Pressure ulcer of sacral region, stage 4; Y83.8 Other surgical procedures as the cause of abnormal reaction of the patient, or of later complication, without mention of misadventure at the time of the procedure; Y92.129 Unspecified place in nursing home as the place of occurrence of the external cause; D68.59 Other primary thrombophilia; I12.0 Hypertensive chronic kidney disease with stage 5 chronic kidney disease or end stage renal disease; N18.6 End stage renal disease; Z99.11 Dependence on respirator [ventilator] status; Z99.2 Dependence on renal dialysis; E11.40 Type 2 diabetes mellitus with diabetic neuropathy, unspecified; Z20.822 Contact with and (suspected) exposure to COVID-19; Z93.0 Tracheostomy status; Y84.8 Other medical procedures as the cause of abnormal reaction of the patient, or of later complication, without mention of misadventure at the time of the procedure; Z93.1 Gastrostomy status; R13.10 Dysphagia, unspecified; I69.354 Hemiplegia and hemiparesis following cerebral infarction affecting left non-dominant side; K21.9 Gastro-esophageal reflux disease without esophagitis; E11.22 Type 2 diabetes mellitus with diabetic chronic kidney disease; Z79.4 Long term (current) use of insulin; Z79.51 Long term (current) use of inhaled steroids; Z79.899 Other long term (current) drug therapy; Z74.01 Bed confinement status; D53.9 Nutritional anemia, unspecified; E11.622 Type 2 diabetes mellitus with other skin ulcer; E11.621 Type 2 diabetes mellitus with foot ulcer; E11.69 Type 2 diabetes mellitus with other specified complication; E88.09 Other disorders of plasma-protein metabolism, not elsewhere classified; I95.3 Hypotension of hemodialysis; J44.0 Chronic obstructive pulmonary disease with (acute) lower respiratory infection; J90 Pleural effusion, not elsewhere classified; J98.11 Atelectasis; M86.172 Other acute osteomyelitis, left ankle and foot; M24.562 Contracture, left knee; M24.561 Contracture, right knee; L97.329 Non-pressure chronic ulcer of left ankle with unspecified severity; L97.519 Non-pressure chronic ulcer of other part of right foot with unspecified severity; S51.011A Laceration without foreign body of right elbow, initial encounter; X58.XXXA Exposure to other specified factors, initial encounter; Y92.9 Unspecified place or not applicable; S51.811A Laceration without foreign body of right forearm, initial encounter; Y95 Nosocomial condition; Z66 Do not resuscitate; Z95.828 Presence of other vascular implants and grafts; Z86.14 Personal history of Methicillin resistant Staphylococcus aureus infection; Z16.24 Resistance to multiple antibiotics; Z78.9 Other specified health status; L89.629 Pressure ulcer of left heel, unspecified stage; B95.2 Enterococcus as the cause of diseases classified elsewhere; B96.4 Proteus (mirabilis) (morganii) as the cause of diseases classified elsewhere; Z16.21 Resistance to vancomycin; B95.62 Methicillin resistant Staphylococcus aureus infection as the cause of diseases classified elsewhere; B95.7 Other staphylococcus as the cause of diseases classified elsewhere
CPT/HCPCS: 31720; 36410; 36415; 71045-TC; 73650-TC; 74018; 80048-TC; 80053-TC; 80076-TC; 80202-TC; 82550-TC; 82962-TC; 83605-TC; 83735-TC; 84100-TC; 84443-TC; 84484-TC; 85025-TC; 85610-TC; 85652-TC; 85730-TC; 86140-TC; 86706; 87040-TC; 87070-TC; 87075-TC; 87081-TC; 87102-TC; 87186-TC; 87340; 89051-TC; 90935-TC; 93307-TC; 94003-TC; 94640-TC; 94760-TC; 94762-TC; 94799-TC; 99082-TC; A4216; A4217; A4623; A6253; A6403; A6407; A7526; C1750; C1757; C1769; C1894; C9803; G0378; J0290; J0690; J0692; J0696; J0878; J0885; J1644; J1815; J2060; J2185; J2405; J2704; J2765; J3370; J3490; J7030; J7050; J7060; J8597; P9047; Q0177; Q9966

== ENCOUNTER 2022-01-04 13:47 | Inpatient (IN) | payer MEDICAID ==
[~2022-01-04] VITALS: Ht 182.9 cm; Wt 72.1 kg
[2022-01-04] MEDS: PROSOURCE / PROSTAT (PYXIS) 30 ML UDC GT SCH (00:25)
[~2022-01-04 13:47] MED LIST changes: -ACET-2605 GT; +COLL30OI TP; +LORA-259 GT; +Prosource GT; +SILV50CR32 TP; +SULF1TAB48 GT; -TYL2T GT; -ZINC1CAP3 GT
--- NOTE | 2022-01-04 14:00 | NUR ---
BIBPA FROM CARE FACILITY DUE TO ABNORMAL CXR (R PLEURAL EFFUSION AND INFILTRATE). PT W/ TRACH AND ON MECH. VENT. TO ER BED 8.
[2022-01-04] MEDS ORDERED: NAPH1POW3 GT (14:25)
[2022-01-04] MEDS ORDERED: CEFE1VIA3 IV (14:25)
[2022-01-04] MEDS ORDERED: ASCO-495 GT (14:25)
[2022-01-04] MEDS ORDERED: VALP250S4 GT (14:25)
[2022-01-04] MEDS ORDERED: VIT-6 GT (14:25)
[2022-01-04] MEDS ORDERED: CYAN-51 GT (14:25)
[2022-01-04] MEDS ORDERED: COLL30OI TP (14:25)
[2022-01-04] MEDS ORDERED: HEPA50007 SQ (14:25)
[2022-01-04] MEDS ORDERED: METO25TA20 GT (14:25)
[2022-01-04] MEDS ORDERED: NUT.237L85 GT (14:25)
[2022-01-04] MEDS ORDERED: FAMO20TA8 GT (14:25)
[2022-01-04] MEDS ORDERED: EPOE1VIA12 SQ (14:25)
[2022-01-04] MEDS ORDERED: TRAM50TA2 GT (14:25)
--- NOTE | 2022-01-04 14:43 | NUR ---
RT RECD PT for abnormal xray and labs TRACH INTACT SECURED PATENT, PORTEX 8 WITH FOLLOWING SETTING AC 15 500 +5 40% placed on vent plugged in red outlet, sx thin white secretions bag mask at [facility] will cont to monitor Addendum: 01/04/22 at 1445 by SIENA GARRETT RT Amended: Links added.
[2022-01-04 14:56] LABS: BASOPHILS # (AUTO) 0.1 K/uL (0.0-0.2); BASOPHILS % (AUTO) 0.8 % (0.0-2.0); EOSINOPHILS % (AUTO) 13.9 % (0.0-6.0); HEMATOCRIT 29 % (39-51); HEMOGLOBIN 8.8 g/dL (13.5-17.5); LYMPHOCYTES # (AUTO) 1.2 K/uL (0.8-4.8); LYMPHOCYTES % (AUTO) 10.4 % (20.0-44.0); MEAN CORPUSCULAR HGB CONC 31 g/dl (31.0-36.0); MEAN CORPUSCULAR VOLUME 100 fL (80-96); MONOCYTES % (AUTO) 17.9 % (2.0-12.0); NEUTROPHILS # (AUTO) 6.3 K/uL (1.8-8.9); PLATELET COUNT (AUTO) 405 K/uL (150-450); RED BLOOD CELL COUNT(AUTO) 2.85 MIL/uL (4.5-6.0); WHITE BLOOD COUNT (AUTO) 11.1 K/uL (4.3-11.0)
[2022-01-04 15:11] LABS: CALCIUM, SERUM 9.2 mg/dL (8.5-10.1); CARBON DIOXIDE 27 mmol/L (21-32); CHLORIDE 102 mmol/L (98-107); CREATININE 4.6 mg/dL (0.6-1.3); GLUCOSE 81 mg/dL (74-106); POTASSIUM 4.2 mmol/L (3.5-5.1); SODIUM SERUM 142 mmol/L (136-145); UREA NITROGEN, BLOOD 71 mg/dL (7-18)
[2022-01-04 15:17] LABS: ALANINE AMINOTRANSFERASE 26 U/L (12-78); ALKALINE PHOSPHATASE 139 U/L (46-116); ASPARTATE AMINOTRANSFERASE 26 U/L (15-37); BILIRUBIN,DIRECT 0.2 mg/dL (0.0-0.2); BILIRUBIN,TOTAL 0.4 mg/dL (0.2-1.0); TOTAL PROTEIN, SERUM 7.2 g/dL (6.4-8.2)
[2022-01-04] MEDS: VANCOMYCIN 1 GM in IV D5W 250 ML IV ONE ×2 (15:27→15:29)
--- NOTE | 2022-01-04 15:37 | NUR ---
SISTER JUAN MCNEIL [phone]
[2022-01-04] MEDS ORDERED: LORAZEPAM INJ 2 MG/ML VIAL IV PRN (16:30)
[2022-01-04] MEDS ORDERED: ACETAMINOPHEN 325 MG TABLET MC PRN (16:30)
[2022-01-04] MEDS ORDERED: ALBUTEROL FS 2.5 MG/3 ML VIAL.NEB NEB PRN (16:30)
[2022-01-04] MEDS ORDERED: MIDODRINE HCL (5MG) 5 MG TABLET PO PRN (16:30)
[2022-01-04] MEDS ORDERED: HOME MED MISCELLANEOUS XX SCH (16:30)
[2022-01-04] MEDS ORDERED: ZINC OXIDE 56.7 GM TUBE TP PRN (16:30)
[2022-01-04] MEDS ORDERED: Z GUARD REMEDY 4 OZ OINT TP PRN (16:30)
[2022-01-04 17:18] LABS: EOSINOPHILS % (MANUAL) 11 % (0-4); LYMPHOCYTES % (MANUAL) 15 % (16-48); MONOCYTES % (MANUAL) 13 % (0-11.0); NEUTROPHILS % (MANUAL) 61 (42-76)
--- NOTE | 2022-01-04 19:21 | NUR ---
COVID SWAB OBTAINED AND SENT TO LAB.
[2022-01-04] MEDS ORDERED: hydrOXYzine PAMOATE 25 MG CAPSULE PO PRN (19:30)
--- NOTE | 2022-01-04 19:30 | NUR ---
RECEIVED REPORT FROM LIVAN KAY. PATIENT IS AAOX1. WITH TRACHE ATTACHED TO VENT SETTINGS OF AC FiO2 40%, TV 500, RATE 15, PEEP 5. PATIENT HAS 3 PERIPHERAL LINES. WITH GTUBE FOR FEEDING AND MEDS.VITALS CHECKED AND BEING MONITORED.
[2022-01-04] MEDS ORDERED: MORPHINE SULFATE INJ 2 MG/ML DISP.SYRIN IV PRN (21:00)
--- NOTE | 2022-01-04 23:02 | NUR ---
REPORT GIVEN TO MANI
--- NOTE | 2022-01-04 23:30 | NUR ---
MOVED PATIENT TO [facility] RM 113-T
--- NOTE | 2022-01-04 23:54 | NUR ---
STERILE PROCESSING TECH NOTES PT A/O XO OBTUNDED VENT PATIENT VENT SETTINGS FOLLOWS AC 15, TV 500,, FIO2 40, PEEP 5. ON TELE MONITOR READING SR 90S. PT IS BEDBOUND AND SEVERELY CONTRACTED. PT NOTED WITH IV ACCESS ON THE L WRIST 20G, DEBBIE 20G AND RIGHT HAND 20G ALL PATENT FLUSHING WELL. PT NOTED WITH G TUBE WITH NO RESIDUAL NOTED AT THIS TIME PATENT FLUSHING WELL. PT NOTED WITH MULTIPLE WOUNDS BILATERAL BUTTOCKS L FOOT WOUND TREATMENT PROVIDED PICTURES TAKEN PLACED IN CHART.WOUND CONSULT ORDERED. PT CONNECTED TO TUBE FEEDING NEPRO @70ML/HR X16 HRS. ALL NEEDS ATTENDED TO AT THIS TIME. SIDERAILS UP FOR SAFETY X4 HEAD OF THE BED ELEVATED FOR ASPIRATION PRECAUTIONS. ALL DUE MEDS ADMINISTERED. WILL CONTINUE TO MONITOR.
[2022-01-05] VITALS: BP 134/79
[2022-01-05] MEDS: CHLORHEXIDINE GLUCONATE 15 ML UDC MM SCH ×3 (00:08→22:22)
[2022-01-05] MEDS ORDERED: MEROPENEM 500 MG VIAL IV ONE (00:10)
[2022-01-05] MEDS: VALPROIC ACID 250 MG/5 ML UDC GT SCH ×4 (00:13→22:22)
[2022-01-05] MEDS: MEROPENEM 500 MG in IV NS 0.9% 50 ML IV SCH ×3 (00:13→22:17)
[2022-01-05] MEDS: HEPARIN SODIUM, PORCINE 5000 UNITS/1 ML VIAL SQ SCH ×2 (00:24→08:56)
[2022-01-05] MEDS ORDERED: EPOETIN ALFA (10,000 UNIT) 10,000 UNIT/ML VIAL ONE (01:04)
[2022-01-05] MEDS: EPOETIN ALFA (10,000 UNIT) 10,000 UNIT/ML VIAL SQ SCH (01:39)
--- NOTE | 2022-01-05 04:14 | NUR ---
SUPERVISOR COIL WINDING NOTES SPOKE TO [facility] PHARMACIST AYDE REGARDING PTS SCHEDULED DEPEKENE BEING GIVEN EARLIER THAN THE Q8HRS PER AYDE ITS OKAY TO GIVE IT AT THIS TIME.
[2022-01-05 05:08] VITALS: BP 113/73
[2022-01-05] MEDS ORDERED: VANCOMYCIN 500 MG in IV D5W 100 ML IV PRN (06:00)
[2022-01-05] MEDS: NEPRO 1,000 ML BOTTLE GT PRN (06:20)
--- NOTE | 2022-01-05 06:24 | NUR ---
BRIM SHAPER CLOSING NOTES PT A/O XO OBTUNDED VENT PATIENT VENT SETTINGS FOLLOWS AC 15, TV 500,, FIO2 40, PEEP 5. ON TELE MONITOR READING SR 90S. PT IS BEDBOUND AND SEVERELY CONTRACTED. PT NOTED WITH IV ACCESS ON THE L WRIST 20G, DEBBIE 20G AND RIGHT HAND 20G ALL PATENT FLUSHING WELL. PT NOTED WITH G TUBE WITH NO RESIDUAL NOTED AT THIS TIME PATENT FLUSHING WELL. PT CONNECTED TO TUBE FEEDING NEPRO @70ML/HR X16 HRS. ALL NEEDS ATTENDED TO AT THIS TIME. SIDERAILS UP FOR SAFETY X4 HEAD OF THE BED ELEVATED FOR ASPIRATION PRECAUTIONS. ALL DUE MEDS ADMINISTERED. WILL ENDORSE CARE TO DAY SHIFT NURSE.
[2022-01-05 06:42] LABS: BASOPHILS # (AUTO) 0.1 K/uL (0.0-0.2); BASOPHILS % (AUTO) 0.6 % (0.0-2.0); EOSINOPHILS % (AUTO) 13.8 % (0.0-6.0); HEMATOCRIT 28 % (39-51); HEMOGLOBIN 8.6 g/dL (13.5-17.5); LYMPHOCYTES # (AUTO) 0.8 K/uL (0.8-4.8); LYMPHOCYTES % (AUTO) 9.8 % (20.0-44.0); MEAN CORPUSCULAR HGB CONC 31 g/dl (31.0-36.0); MEAN CORPUSCULAR VOLUME 99 fL (80-96); MONOCYTES # (AUTO) 1.5 K/uL (0.1-1.30); MONOCYTES % (AUTO) 17.7 % (2.0-12.0); NEUTROPHILS % (AUTO) 58.1 % (43.0-81.0); PLATELET COUNT (AUTO) 419 K/uL (150-450); WHITE BLOOD COUNT (AUTO) 8.6 K/uL (4.3-11.0)
[2022-01-05 07:07] LABS: CALCIUM, SERUM 9.6 mg/dL (8.5-10.1); CREATININE 5.2 mg/dL (0.6-1.3); MAGNESIUM 3.2 mg/dL (1.8-2.4); PHOSPHORUS 4.7 mg/dL (2.5-4.9); POTASSIUM 4.1 mmol/L (3.5-5.1)
--- NOTE | 2022-01-05 07:36 | NUR ---
HUNTING SALES LEADER OPENING NOTES PT A/O XO OBTUNDED VENT PATIENT VENT SETTINGS FOLLOWS AC 15, TV 500,, FIO2 40, PEEP 5. ON TELE MONITOR READING SR 90S. PT IS BEDBOUND AND SEVERELY CONTRACTED. PT NOTED WITH IV ACCESS ON THE L WRIST 20G, DEBBIE 20G AND ALEX 20G ALL PATENT FLUSHING WELL. PT NOTED WITH G TUBE WITH NO RESIDUAL NOTED AT THIS TIME PATENT FLUSHING WELL. PT NOTED WITH MULTIPLE WOUNDS BILATERAL BUTTOCKS L FOOT WOUND TREATMENT PROVIDED PICTURES TAKEN PLACED IN CHART.WOUND CONSULT ORDERED. PT CONNECTED TO TUBE FEEDING NEPRO @70ML/HR X16 HRS. ALL NEEDS ATTENDED TO AT THIS TIME. SIDERAILS UP FOR SAFETY X4 HEAD OF THE BED ELEVATED FOR ASPIRATION PRECAUTIONS. ALL DUE MEDS ADMINISTERED. WILL CONTINUE PLAN OF CARE.
[2022-01-05] MEDS: ASCORBIC ACID 500 MG TABLET NG SCH (08:53)
[2022-01-05] MEDS: VITAMIN B COMP W-C 1 TAB TABLET GT SCH (08:53)
[2022-01-05] MEDS: CYANOCOBALAMIN 500 MCG TABLET PO SCH (08:53)
[2022-01-05] MEDS: METOPROLOL TARTRATE 25 MG TABLET GT SCH (08:54)
[2022-01-05] MEDS: FAMOTIDINE (20 MG) 20 MG TABLET GT SCH (08:54)
[2022-01-05] MEDS: VIT B CMPLX 3/FA/VIT C/BIOTIN 1 TAB TABLET GT SCH (08:54)
[2022-01-05] MEDS: TRAMADOL HCL 50 MG TABLET GT SCH (08:55)
[2022-01-05] MEDS: THERAHONEY GEL 1.5 OZ TUBE TP SCH ×3 (08:57→22:23)
[2022-01-05] MEDS: PROSOURCE / PROSTAT (PYXIS) 30 ML UDC GT SCH ×2 (08:57→17:24)
[2022-01-05] MEDS: NEUTRA PHOS 1 POWD.PACKET GT SCH (09:02)
[2022-01-05 14:22] LABS: EOSINOPHILS % (MANUAL) 14 % (0-4); LYMPHOCYTES % (MANUAL) 10 % (16-48); MONOCYTES % (MANUAL) 14 % (0-11.0); NEUTROPHILS % (MANUAL) 62 (42-76)
--- NOTE | 2022-01-05 15:00 | NUR ---
ALEX MIDLINE G#18 INSERTED BY MIDLINE NURSE. PT TOLERATED PROCEDURE WELL.
--- NOTE | 2022-01-05 18:30 | NUR ---
HD NURSE AT BEDSIDE TO PERFORM HEMODIALYSIS. ORDERED ALBUMIN X2.
--- NOTE | 2022-01-05 18:48 | NUR ---
SCREWMAKER AUTOMATIC CLOSING NOTES PT A/O XO OBTUNDED VENT PATIENT VENT SETTINGS FOLLOWS AC 15, TV 500,, FIO2 40, PEEP 5. ON TELE MONITOR READING SR 90S. PT IS BEDBOUND AND SEVERELY CONTRACTED. PT NOTED WITH IV ACCESS ON THE L WRIST 20G, DEBBIE 20G AND RIGHT HAND 20G, ALEX MIDLINE G#18. ALL PATENT FLUSHING WELL. G TUBE PATENT AND FLUSHING WELL. SAFETY MEASURES IN PLACE. SIDERAILS UP FOR SAFETY X3 HEAD OF THE BED ELEVATED FOR ASPIRATION PRECAUTIONS. ALL DUE MEDS ADMINISTERED. WILL ENDORSE CARE TO HOME TEACHING GRADES 7 AND 8 TEACHER NURSE.
--- NOTE | 2022-01-05 19:40 | NUR ---
BLOWING ENGINEER OPENING NOTE PATIENT IN BED WITH EYES CLOSED, A/O X 0, OBTUNDED, NON-VERBAL. PATIENT ON VENT WITH SETTINGS AC 15, TV 500, FIO2 40 PEEP 5, NO S/S OF DISTRESS OR SOB NOTED, BREATHING EVEN AND UNLABORED, SPO2 WNL. PATIENT ON EXTERNAL MR TEACHER READING SINUS TACHY, HR: 103. IV ACCESS ON RIGHT WRIST #20G, AELX MIDLINE #18G AND DEBBIE #20G INTACT AND SALINE LOCKED. PATIENT CURRENTLY UNDERGOING DIALYSIS. GT IN PLACE AND FLUSHING WELL, NO RESIDUAL NOTED, TO BE TURNED ON @ MIDNIGHT. SAFETY MEASURES IN PLACE: SIDE RAILS UP X 3, BED LOCKED IN LOWEST POSITION, HOB ELEVATED. WILL CONTINUE TO MONITOR PATIENT
[2022-01-05 20:00] VITALS: BP 98/60
[2022-01-05] MEDS ORDERED: ALBUMIN 25% 25 GM in PREMIX 1 EA IV SCH (20:00)
[2022-01-05] MEDS: DAKINS QUARTER STRENGTH (0.125%) 480 ML BOTTLE TOP SCH (21:30)
[2022-01-06] VITALS: BP 112/72
[2022-01-06 04:00] VITALS: BP 113/77
[2022-01-06] MEDS: VALPROIC ACID 250 MG/5 ML UDC GT SCH ×3 (05:30→20:04)
[2022-01-06 06:37] LABS: BASOPHILS # (AUTO) 0.1 K/uL (0.0-0.2); BASOPHILS % (AUTO) 0.7 % (0.0-2.0); EOSINOPHILS % (AUTO) 11.1 % (0.0-6.0); HEMATOCRIT 26 % (39-51); HEMOGLOBIN 8.2 g/dL (13.5-17.5); LYMPHOCYTES % (AUTO) 11.6 % (20.0-44.0); MEAN CORPUSCULAR HGB CONC 31 g/dl (31.0-36.0); MEAN CORPUSCULAR VOLUME 99 fL (80-96); MONOCYTES # (AUTO) 1.9 K/uL (0.1-1.30); MONOCYTES % (AUTO) 21.5 % (2.0-12.0); NEUTROPHILS % (AUTO) 55.1 % (43.0-81.0); PLATELET COUNT (AUTO) 415 K/uL (150-450); RED BLOOD CELL COUNT(AUTO) 2.68 MIL/uL (4.5-6.0)
[2022-01-06 07:14] LABS: ALBUMIN 2.3 g/dL (3.4-5.0); BILIRUBIN,TOTAL 0.4 mg/dL (0.2-1.0); CALCIUM, SERUM 9.1 mg/dL (8.5-10.1); CREATININE 5.1 mg/dL (0.6-1.3); PHOSPHORUS 4.5 mg/dL (2.5-4.9); TOTAL PROTEIN, SERUM 7.4 g/dL (6.4-8.2)
--- NOTE | 2022-01-06 07:20 | NUR ---
MANAGER ETL CLOSING NOTE PATIENT IN BED WITH EYES CLOSED, A/O X 0, OBTUNDED, NON-VERBAL. PATIENT ON VENT WITH SETTINGS AC 15, TV 500, FIO2 40 PEEP 5, NO S/S OF DISTRESS OR SOB NOTED, BREATHING EVEN AND UNLABORED, SPO2 WNL. PATIENT ON EXTERNAL SEWING DEMONSTRATOR READING SINUS TACHY, HR: 103. IV ACCESS ON RIGHT WRIST #20G, ALEX MIDLINE #18G AND DEBBIE #20G INTACT AND SALINE LOCKED. MEDICATIONS GIVEN ORDERED, PT NEEDS MET THROUGHOUT SHIFT, PATIENT TURNED Q2H, PATIENT SUCTIONED THROUGHOUT SHIFT. SAFETY MEASURES IN PLACE: SIDE RAILS UP X 3, BED LOCKED IN LOWEST POSITION, HOB ELEVATED. WILL ENDORSE TO DAY SHIFT NURSE FOR CONTINUITY OF CARE
--- NOTE | 2022-01-06 07:30 | NUR ---
RELIEF MASTER OPENING NOTE PATIENT IN BED WITH EYES CLOSED, A/O X 0, OBTUNDED, NON-VERBAL. PATIENT ON VENT WITH SETTINGS AC 15, TV 500, FIO2 40 PEEP 5, NO S/S OF DISTRESS OR SOB NOTED, BREATHING EVEN AND UNLABORED, SPO2 WNL. PATIENT ON EXTERNAL REHABILITATION MEDICINE PHYSICIAN READING SINUS TACHY, HR: 103. IV ACCESS ON RIGHT WRIST #20G, LAEX MIDLINE #18G AND DEBBIE #20G INTACT AND SALINE LOCKED. GT IN PLACE AND FLUSHING WELL, NO RESIDUAL NOTED. SAFETY MEASURES IN PLACE: SIDE RAILS UP X 3, BED LOCKED IN LOWEST POSITION, HOB ELEVATED. WILL CONTINUE PLAN OF CARE.
[2022-01-06] MEDS: CHLORHEXIDINE GLUCONATE 15 ML UDC MM SCH ×2 (08:42→20:04)
[2022-01-06] MEDS: NEUTRA PHOS 1 POWD.PACKET GT SCH (08:43)
[2022-01-06] MEDS: ASCORBIC ACID 500 MG TABLET NG SCH (08:43)
[2022-01-06] MEDS: FAMOTIDINE (20 MG) 20 MG TABLET GT SCH (08:43)
[2022-01-06] MEDS: TRAMADOL HCL 50 MG TABLET GT SCH (08:43)
[2022-01-06] MEDS: CYANOCOBALAMIN 500 MCG TABLET PO SCH (08:43)
[2022-01-06] MEDS: VIT B CMPLX 3/FA/VIT C/BIOTIN 1 TAB TABLET GT SCH (08:43)
[2022-01-06] MEDS: VITAMIN B COMP W-C 1 TAB TABLET GT SCH (08:44)
[2022-01-06] MEDS: METOPROLOL TARTRATE 25 MG TABLET GT SCH (08:51)
[2022-01-06] MEDS: PROSOURCE / PROSTAT (PYXIS) 30 ML UDC GT SCH ×2 (08:52→16:39)
[2022-01-06] MEDS: DAKINS QUARTER STRENGTH (0.125%) 480 ML BOTTLE TOP SCH (08:53)
[2022-01-06] MEDS: THERAHONEY GEL 1.5 OZ TUBE TP SCH (08:54)
[2022-01-06] MEDS: MEROPENEM 500 MG in IV NS 0.9% 50 ML IV SCH ×2 (09:54→20:04)
--- NOTE | 2022-01-06 10:17 | NUR ---
THORACENTESIS WAS CANCELLED BY . Addendum: 01/06/22 at 1024 by ERIC BRENNER RN Amended: Links added.
[2022-01-06 11:47] LABS: EOSINOPHILS % (MANUAL) 16 % (0-4); LYMPHOCYTES % (MANUAL) 8 % (16-48); MONOCYTES % (MANUAL) 14 % (0-11.0); NEUTROPHILS % (MANUAL) 62 (42-76)
[2022-01-06] MEDS ORDERED: VANCOMYCIN 500 MG in IV D5W 100ml IV ONE (15:30)
[2022-01-06] MEDS: EPOETIN ALFA (10,000 UNIT) 10,000 UNIT/ML VIAL SQ SCH (16:39)
--- NOTE | 2022-01-06 18:50 | NUR ---
GRINDING ROOM SUPERVISOR CLOSING NOTE PATIENT IN BED WITH EYES OPENED A/O X 0, OBTUNDED, NON-VERBAL. PATIENT ON VENT WITH SETTINGS AC 15, TV 500, FIO2 40 PEEP 5, NO S/S OF DISTRESS OR SOB NOTED, BREATHING EVEN AND UNLABORED, SPO2 WNL. PATIENT ON EXTERNAL ALMOND GRINDER READING SINUS TACHY, HR: 101. IV ACCESS ON RIGHT WRIST #20G, ALEX MIDLINE #18G AND DEBBIE #20G INTACT AND SALINE LOCKED. MEDICATIONS GIVEN ORDERED, PT NEEDS MET THROUGHOUT SHIFT, PATIENT TURNED Q2H, PATIENT SUCTIONED THROUGHOUT SHIFT. SAFETY MEASURES IN PLACE: SIDE RAILS UP X 3, BED LOCKED IN LOWEST POSITION, HOB ELEVATED. WILL ENDORSE TO NEXT SHIFT NURSE FOR CONTINUITY OF CARE
--- NOTE | 2022-01-06 19:32 | NUR ---
RN OPENING NOTES RECEIVED PT IN BED, WITH EYES CLOSED. AOx1,OBTUNDED AND NONVERBAL. ON VENT AND TOLERATING WELL. NO SOB NOTED. NO S/SX OF RESPIRATORY DISTRESS NOTED. TELE MONITOR DETECTS SINUS RHYTHM. IV ACCESS IN ALEX MIDLINE, R WRIST #20G AND DEBBIE #20G. IV IS INTACT, PATENT, AND FLUSHING WELL. G-TUBE IN PLACE RUNNING NEPRO @ 70 ML/HR. SAFETY PRECAUTIONS IN PLACE: BED IN LOWEST, LOCKED POSITION, SIDERAILS UPx2, AND BRAKES ON. TABLE AND CALL LIGHT WITHIN REACH. WILL CONTINUE TO MONITOR.
[2022-01-06 20:00] VITALS: BP 111/67
[2022-01-06] MEDS: NEPRO 1,000 ML BOTTLE GT PRN ×2 (23:53)
[2022-01-07] VITALS: BP 106/72
[2022-01-07 04:00] VITALS: BP 107/62
[2022-01-07] MEDS: VALPROIC ACID 250 MG/5 ML UDC GT SCH ×3 (04:50→21:32)
[2022-01-07 06:28] LABS: BASOPHILS # (AUTO) 0.1 K/uL (0.0-0.2); BASOPHILS % (AUTO) 0.6 % (0.0-2.0); EOSINOPHILS % (AUTO) 9.1 % (0.0-6.0); HEMATOCRIT 29 % (39-51); HEMOGLOBIN 9.1 g/dL (13.5-17.5); LYMPHOCYTES # (AUTO) 1.4 K/uL (0.8-4.8); LYMPHOCYTES % (AUTO) 12.9 % (20.0-44.0); MEAN CORPUSCULAR HGB CONC 31 g/dl (31.0-36.0); MEAN CORPUSCULAR VOLUME 98 fL (80-96); MONOCYTES # (AUTO) 2.2 K/uL (0.1-1.30); MONOCYTES % (AUTO) 20.1 % (2.0-12.0); NEUTROPHILS # (AUTO) 6.3 K/uL (1.8-8.9); NEUTROPHILS % (AUTO) 57.3 % (43.0-81.0); PLATELET COUNT (AUTO) 382 K/uL (150-450); RED BLOOD CELL COUNT(AUTO) 2.96 MIL/uL (4.5-6.0); WHITE BLOOD COUNT (AUTO) 10.9 K/uL (4.3-11.0)
--- NOTE | 2022-01-07 06:51 | NUR ---
RN CLOSING NOTES PT IN BED, WITH EYES CLOSED. AOx1,OBTUNDED AND NONVERBAL. ON VENT AND TOLERATING WELL. NO SOB NOTED. NO S/SX OF RESPIRATORY DISTRESS NOTED. TELE MONITOR DETECTS SINUS RHYTHM. IV ACCESS IN ALEX MIDLINE AND R WRIST #20G. IV IS INTACT, PATENT, AND FLUSHING WELL. G-TUBE IN PLACE RUNNING NEPRO @ 70 ML/HR. ALL ORDERS CARRIED OUT. ALL NEEDS MET. PT KEPT CLEAN AND DRY. WOUND DRESSINGS DONE. SAFETY PRECAUTIONS IN PLACE: BED IN LOWEST, LOCKED POSITION, SIDERAILS UPx2, AND BRAKES ON. TABLE AND CALL LIGHT WITHIN REACH. WILL ENDORSE TO ONCOMING SHIFT FOR DENNIS.
[2022-01-07 07:15] LABS: ALBUMIN 2.1 g/dL (3.4-5.0); BILIRUBIN,TOTAL 0.3 mg/dL (0.2-1.0); CALCIUM, SERUM 9.4 mg/dL (8.5-10.1); CREATININE 5.9 mg/dL (0.6-1.3); MAGNESIUM 3.3 mg/dL (1.8-2.4); POTASSIUM 4.3 mmol/L (3.5-5.1); TOTAL PROTEIN, SERUM 7.1 g/dL (6.4-8.2)
[2022-01-07 08:00] VITALS: BP 106/62
--- NOTE | 2022-01-07 08:00 | NUR ---
RN OPENING NOTE PATIENT RECEIVED IN BED, OBTUNDED, ABLE TO RESPONDS PHYSICAL STIMULI. IN NO ACUTE DISTRESS NOTED. RESPIRATORY EVEN AND UNLABORED WITH VENTILATOR. SKIN IS WARM TO TOUCH, KEEP CLEAN/DRY. G TUBE RUNNING AT 70 ML, AND OSTOMY SITE IS INTACT. KEPT ELEVATED HOB FOR ENSURE AIRWAY AND ASPIRATION PRECAUTION, ALSO LOWEST POSITION OF THE BED, S/R UP X 3, BED ALARM IS ON AT ALL THE TIMES. ALL SAFETY PRECAUTION APPLIED. CALL LIGHT WITHIN REACH, WILL CONTINUE TO MONITOR.
[2022-01-07] MEDS: CHLORHEXIDINE GLUCONATE 15 ML UDC MM SCH ×2 (08:33→21:32)
[2022-01-07] MEDS: VIT B CMPLX 3/FA/VIT C/BIOTIN 1 TAB TABLET GT SCH (08:34)
[2022-01-07] MEDS: ASCORBIC ACID 500 MG TABLET NG SCH (08:34)
[2022-01-07] MEDS: CYANOCOBALAMIN 500 MCG TABLET PO SCH (08:35)
[2022-01-07] MEDS: FAMOTIDINE (20 MG) 20 MG TABLET GT SCH (08:35)
[2022-01-07] MEDS: TRAMADOL HCL 50 MG TABLET GT SCH (08:35)
[2022-01-07] MEDS: THERAHONEY GEL 1.5 OZ TUBE TP SCH ×2 (08:36→08:37)
[2022-01-07] MEDS: DAKINS QUARTER STRENGTH (0.125%) 480 ML BOTTLE TOP SCH (08:36)
[2022-01-07] MEDS: NEUTRA PHOS 1 POWD.PACKET GT SCH (08:40)
[2022-01-07] MEDS: METOPROLOL TARTRATE 25 MG TABLET GT SCH (08:41)
[2022-01-07] MEDS: MEROPENEM 500 MG in IV NS 0.9% 50 ML IV SCH ×2 (08:41→21:31)
[2022-01-07] MEDS: VITAMIN B COMP W-C 1 TAB TABLET GT SCH (08:41)
[2022-01-07 12:00] VITALS: BP 106/65
[2022-01-07] MEDS: PROSOURCE / PROSTAT (PYXIS) 30 ML UDC GT SCH ×2 (12:10→16:14)
--- NOTE | 2022-01-07 12:36 | NUR ---
PATIENT RECEIVED DEBRIDEMENT ON LEFT HEEL ORDER, OBTAINED SIGN OF CONSENT BY INES/MAC MCNEIL, PHONE NUMBER: [phone].
[2022-01-07 12:58] LABS: BAND % (MANUAL) 2 % (0.0-5.0); EOSINOPHILS % (MANUAL) 11 % (0-4); LYMPHOCYTES % (MANUAL) 16 % (16-48); MONOCYTES % (MANUAL) 19 % (0-11.0); NEUTROPHILS % (MANUAL) 52 (42-76)
[2022-01-07] MEDS: ALBUMIN 25% 25 GM in PREMIX 1 EA IV PRN (14:54)
[2022-01-07 16:00] VITALS: BP 113/73
--- NOTE | 2022-01-07 17:27 | NUR ---
RN CLOSING NOTE PATIENT IN BED RESTING. IN NO ACUTE DISTRESS NOTED. RESPIRATORY EVEN AND UNLABORED WITH VENTILATOR. SKIN IS WARM TO TOUCH, KEEP CLEAN/DRY. PATIENT GOING DEBRIDEMENT ON LEFT HEEL AND CONSENT SIGN IS READY FOR TOMORROW. KEPT ELEVATED HOB FOR ENSURE AIRWAY AND ASPIRATION PRECAUTION. BED IN LOWEST POSITION AND LOCK. BED ALARM IS ON AT ALL THE TIMES. SAFETY MEASURED IN PLACED. CALL LIGHT WITHIN REACH, WILL ENDORSED TO NEXT SHIFT.
[2022-01-07 20:00] VITALS: BP 111/73
--- NOTE | 2022-01-07 20:14 | NUR ---
INSTALLATION & MAINTENANCE EXECUTIVE OPENING NOTES: RECEIVED PATIENT SLEEP MIN BED COMFORTABLY, AROUSABLE TO VERBAL STIMULI, BED IN LOW POSITION CALL LIGHTS WITHIN REACH, ON MECHANICAL VENT SATURATING WELL, PATIENT IS A/OX4 ON HEMODIALYSIS TTHS 0 OUTPUT TODAY, AT RIGHT GROIN ON G TUBE D=FEEDING OF NEPRO @70ML/HR X16H ON AT 12MN- OFF AT 1600, WITH IV LINE AT RIGHT WRIST 320 AND ALEX ML- SL, ON TELE MONITOR- SR-99, PATIENT KEPT CLEAN AND DRY ALL NEEDS MET WILL CONTINUE TO MONITOR.
[2022-01-08] VITALS (7 sets, daily range): BP systolic 95–126; BP diastolic 59–94
[2022-01-08] MEDS: NEPRO 1,000 ML BOTTLE GT PRN (00:10)
[2022-01-08] MEDS: VALPROIC ACID 250 MG/5 ML UDC GT SCH ×3 (05:08→22:45)
--- NOTE | 2022-01-08 06:53 | NUR ---
SYSTEMS CHECKOUT MECHANIC CLOSING NOTES: PATIENT SLEEP IN BED COMFORTABLY AROUSABLE TO VERBAL STIMULI, BED IN LOW POSITION CALL LIGHTS WITHIN REACH, ON MECHANICAL VENT SATURATING WELL, NPO ON G TUBE FEEDING OF NEPRO 1.8 @70ML/HR INFUSING WELL, PATIENT ON TELE MONITOR SR-97, ON HEMODIALYSIS, WITH RIGHT GROIN DIALYSIS PORT, PATIENT KEPT CLEAN AND DRY ALL NEEDS MET ENDORSE TO INCOMING SHIFT.
--- NOTE | 2022-01-08 07:46 | NUR ---
RN OPENING NOTE PATIENT IS OBTUNDED IN BED. PATIENT IS ALERT AND ORIENTED X1. PATIENT IS NONVERBAL. PATIENT IS ON MECHANICAL VENTILATOR WITH ORDERED SETTINGS.PATIENT IS ON TELE MONITOR.PATIENT IS NPO DIET.ALL SAFETY MEASURES IN PLACE. BED LOCKED IN LOWEST POSITION. CALL LIGHT WITHIN REACH. SIDE RAILS X2.PATIENT IS ON TELE MONITOR. PATIENT HAS RIGHT GROIN DIALYSIS PORT. WILL CONTINUE TO ASSESS THROUGHOUT SHIFT.
[2022-01-08 08:12] LABS: BILIRUBIN,TOTAL 0.5 mg/dL (0.2-1.0); CALCIUM, SERUM 9.1 mg/dL (8.5-10.1); CREATININE 6.8 mg/dL (0.6-1.3); MAGNESIUM 3.5 mg/dL (1.8-2.4); PHOSPHORUS 7.1 mg/dL (2.5-4.9); TOTAL PROTEIN, SERUM 7.2 g/dL (6.4-8.2)
[2022-01-08] MEDS: NEUTRA PHOS 1 POWD.PACKET GT SCH (08:17)
[2022-01-08] MEDS: CHLORHEXIDINE GLUCONATE 15 ML UDC MM SCH ×2 (08:17→22:45)
[2022-01-08] MEDS: ASCORBIC ACID 500 MG TABLET NG SCH (08:18)
[2022-01-08] MEDS: VIT B CMPLX 3/FA/VIT C/BIOTIN 1 TAB TABLET GT SCH (08:18)
[2022-01-08] MEDS: CYANOCOBALAMIN 500 MCG TABLET PO SCH (08:19)
[2022-01-08] MEDS: TRAMADOL HCL 50 MG TABLET GT SCH (08:19)
[2022-01-08] MEDS: FAMOTIDINE (20 MG) 20 MG TABLET GT SCH (08:19)
[2022-01-08] MEDS: METOPROLOL TARTRATE 25 MG TABLET GT SCH (08:20)
[2022-01-08] MEDS: PROSOURCE / PROSTAT (PYXIS) 30 ML UDC GT SCH ×2 (08:23→16:39)
[2022-01-08] MEDS: MEROPENEM 500 MG in IV NS 0.9% 50 ML IV SCH ×2 (08:27→22:45)
[2022-01-08] MEDS: THERAHONEY GEL 1.5 OZ TUBE TP SCH ×4 (08:27→09:24)
[2022-01-08] MEDS: VITAMIN B COMP W-C 1 TAB TABLET GT SCH (08:27)
[2022-01-08 08:46] LABS: POTASSIUM 3.5 mmol/L (3.5-5.1)
[2022-01-08] MEDS: DAKINS QUARTER STRENGTH (0.125%) 480 ML BOTTLE TOP SCH (09:11)
--- NOTE | 2022-01-08 09:27 | NUR ---
learning designer note katie duplicate order. barcode scanned. will notify pharmacy
--- NOTE | 2022-01-08 09:34 | NUR ---
supervisor television chassis repair note called pharmacy. pharmacy will discontinue 2 duplicate orders of katie
--- NOTE | 2022-01-08 09:49 | NUR ---
telescope operator note rt at bedside trach and oral suction done, all needs attended
[2022-01-08 11:48] LABS: BASOPHILS % (AUTO) 0.2 % (0.0-2.0); EOSINOPHILS % (AUTO) 9.1 % (0.0-6.0); HEMATOCRIT 29 % (39-51); HEMOGLOBIN 8.3 g/dL (13.5-17.5); LYMPHOCYTES # (AUTO) 0.5 K/uL (0.8-4.8); LYMPHOCYTES % (AUTO) 3.8 % (20.0-44.0); MEAN CORPUSCULAR HGB CONC 29 g/dl (31.0-36.0); MEAN CORPUSCULAR VOLUME 102 fL (80-96); MONOCYTES # (AUTO) 1.4 K/uL (0.1-1.30); MONOCYTES % (AUTO) 9.9 % (2.0-12.0); NEUTROPHILS # (AUTO) 10.6 K/uL (1.8-8.9); PLATELET COUNT (AUTO) 344 K/uL (150-450); RED BLOOD CELL COUNT(AUTO) 2.82 MIL/uL (4.5-6.0); WHITE BLOOD COUNT (AUTO) 13.8 K/uL (4.3-11.0)
--- NOTE | 2022-01-08 12:24 | NUR ---
telegrapher agent note rt side thoracentesis done, removed 1650 ml specimen sent to laboratory
--- NOTE | 2022-01-08 13:29 | NUR ---
receptionist telephone operator note chest x ray done as ordered
--- NOTE | 2022-01-08 14:35 | NUR ---
supervisor telephone answering service note dr wagner farmer and grazier notified that patient coud not handle hd yesterday bp was low ,ordered midodrine 10 mg gtube q8 hour Addendum: 01/08/22 at 1554 by MARK NAVA RN farmer and grazier notified that bun is 101. followup with order of midodrine
--- NOTE | 2022-01-08 15:38 | NUR ---
PROJECT FINANCE ANALYST NOTE called pharmacy to change the time of midodrine to start at 1700 due to current low BP 95/79. pharmacy said okay to start at 1700
[2022-01-08] MEDS: EPOETIN ALFA (10,000 UNIT) 10,000 UNIT/ML VIAL SQ SCH (16:39)
[2022-01-08] MEDS: MIDODRINE HCL (5MG) 5 MG TABLET GT SCH (16:45)
--- NOTE | 2022-01-08 18:40 | NUR ---
SUPERVISOR HARDBOARD NOTE PATIENT IN BED ,WITH TRACH TO VENT SETTING ORDERED , WITH G TUBE FEEDING BUT ON HOLD AT THIS TIME, FEEDING FOR 16 HOURS, BED IN LOWEST AND LOCKED POSITION ,KEEP HOB ELEVATED NO RESIDUAL NOTED AT THIS TIME, RT UPPER ARM ID LINE IN PLACE AN FLUSHED WELL , TYLENOL FOR T 99.2 GIVEN , COOLING MEASURE PROVIDED .WILL CONT TO MONITOR CLOSELY
--- NOTE | 2022-01-08 18:57 | NUR ---
DRY MOLDER NOTE administered tylenol for fever 99.2 and cooling measures implemented
--- NOTE | 2022-01-08 19:40 | NUR ---
TELE/RN NOTE RECEIVED PATIENT RESTING IN BED. OBTUNDED AT BASELINE. NO S/SX OF PAIN NOTED AT THIS TIME. CONTINUES ON MECHANICAL VENT WITH PATIENT TOLERATING SETTINGS WELL. IV ACCESS TO RIGHT UPPER ARM MIDLINE #18G INTACT, PATENT AND SALINE LOCKED. CONTINUES ON IV ABX. LEFT FEMORAL HD LINE IN PLACE. GTUBE IN PLACE WITH NEPRO TUBE FEED @ 70ML/HR X 16HRS. NO RESIDUAL NOTED AT THIS TIME. DRESSINGS TO FOOT WOUNDS C/D/I. ASPIRATION, FALL AND SAFETY PRECAUTIONS MAINTAINED. ALL NEEDS ATTENDED TO AT THIS TIME.
--- NOTE | 2022-01-08 19:50 | NUR ---
PATIENT RECEIVED ON VENT: AC 15, 500, 40%, +5. TRACH SECURE AND PATENT. SUCTION PRN, PROJECTOR OPERATOR DONE. VENT PLUGGED INTO RED OUTLET, ALARMS ON AND AUDIBLE. NO RESPIRATORY DISTRESS NOTED AT THIS TIME. WILL CONTINUE TO MONITOR T/O SHIFT.
[2022-01-08] MEDS ORDERED: MIDODRINE HCL (5MG) 5 MG TABLET PO SCH (21:00)
[2022-01-09] MEDS: NEPRO 1,000 ML BOTTLE GT PRN (00:22)
[2022-01-09] MEDS: MIDODRINE HCL (5MG) 5 MG TABLET GT SCH ×3 (00:23→16:43)
[2022-01-09] MEDS: VALPROIC ACID 250 MG/5 ML UDC GT SCH ×3 (06:06→21:15)
--- NOTE | 2022-01-09 06:30 | NUR ---
TELE/RN CLOSING NOTE PATIENT CURRENTLY RESTING IN BED. OBTUNDED AT BASELINE. NO S/SX OF PAIN NOTED AT THIS TIME. CONTINUES ON MECHANICAL VENT WITH PATIENT TOLERATING SETTINGS WELL. IV ACCESS TO RIGHT UPPER ARM MIDLINE #18G INTACT, PATENT AND SALINE LOCKED. CONTINUES ON IV ABX. LEFT FEMORAL HD LINE IN PLACE. GTUBE IN PLACE WITH NEPRO TUBE FEED RUNNING @ 70ML/HR X 16HRS. NO RESIDUAL NOTED AT THIS TIME. ASPIRATION, FALL AND SAFETY PRECAUTIONS MAINTAINED. ALL NEEDS ATTENDED TO AT THIS TIME. WILL ENDORSE PLAN OF CARE TO ONCOMING SHIFT RN.
[2022-01-09 07:16] LABS: BASOPHILS # (AUTO) 0.1 K/uL (0.0-0.2); EOSINOPHILS % (AUTO) 10.8 % (0.0-6.0); HEMATOCRIT 27 % (39-51); HEMOGLOBIN 8.4 g/dL (13.5-17.5); LYMPHOCYTES % (AUTO) 7.6 % (20.0-44.0); MEAN CORPUSCULAR HGB CONC 31 g/dl (31.0-36.0); MEAN CORPUSCULAR VOLUME 98 fL (80-96); MONOCYTES # (AUTO) 2.3 K/uL (0.1-1.30); MONOCYTES % (AUTO) 18.5 % (2.0-12.0); NEUTROPHILS # (AUTO) 7.8 K/uL (1.8-8.9); NEUTROPHILS % (AUTO) 62.1 % (43.0-81.0); PLATELET COUNT (AUTO) 361 K/uL (150-450); RED BLOOD CELL COUNT(AUTO) 2.73 MIL/uL (4.5-6.0); WHITE BLOOD COUNT (AUTO) 12.6 K/uL (4.3-11.0)
--- NOTE | 2022-01-09 07:30 | NUR ---
RN OPENING NOTE PATIENT IS AWAKE IN BED, OBTUNDED AND NON VERBAL. WITH TRACHEOSTOMY TO MECHANICAL VENTILATOR WITH THE FOLLOWING SETTINGS: AC MODE, RR 15, TV 500, FIO2 40% AND PEEP 5. SINUS RHYTHM ON PERFUME COMPOUNDER. BREATHING UNLABORED AND NOT IN ANY FORM OF DISTRESS. WITH G-TUBE INTACT AND INFUSING WITH NEPRO AT 70 ML/HR. WITH LEFT FEMORAL HD CATHETER INTACT AND COVERED WITH DRY DRESSING. RIGHT UPPER ARM MIDLINE SALINE LOCK INTACT AND PATENT, NO SIGNS OF INFILTRATION OR PHLEBITIS NOTED. BED IS LOCKED IN LOWEST POSITION, 3 SIDE RAILS UP, CALL LIGHT WITHIN REACH. WILL CONTINUE TO MONITOR THROUGHOUT SHIFT.
--- NOTE | 2022-01-09 07:43 | NUR ---
RT PT RECVD ON AC 15 VT500, 40% FIO2, PEEP+5 WITH PORTEX 8 TRACH PATENT AND SECURED. SUCTION PRN, NO SOB OR RESPIRATORY DISTRESS NOTED AT THIS TIME. VENT PLUGGED INTO RED OUTLET WITH ALARMS ON AND AUDIBLE, SPARE TRACH AND AMBU AT BEDSIDE.
[2022-01-09 08:00] VITALS: BP 107/70
[2022-01-09 08:00] LABS: ALBUMIN 1.9 g/dL (3.4-5.0); BILIRUBIN,TOTAL 0.4 mg/dL (0.2-1.0); MAGNESIUM 3.6 mg/dL (1.8-2.4); TOTAL PROTEIN, SERUM 6.9 g/dL (6.4-8.2)
[2022-01-09 08:33] LABS: CREATININE 7.5 mg/dL (0.6-1.3)
[2022-01-09 08:34] LABS: PHOSPHORUS 8.2 mg/dL (2.5-4.9)
[2022-01-09] MEDS: NEUTRA PHOS 1 POWD.PACKET GT SCH (09:25)
[2022-01-09] MEDS: MEROPENEM 500 MG in IV NS 0.9% 50 ML IV SCH ×2 (09:25→20:13)
[2022-01-09] MEDS: ASCORBIC ACID 500 MG TABLET NG SCH (09:26)
[2022-01-09] MEDS: METOPROLOL TARTRATE 25 MG TABLET GT SCH (09:27)
[2022-01-09] MEDS: VIT B CMPLX 3/FA/VIT C/BIOTIN 1 TAB TABLET GT SCH (09:27)
[2022-01-09] MEDS: FAMOTIDINE (20 MG) 20 MG TABLET GT SCH (09:28)
[2022-01-09] MEDS: TRAMADOL HCL 50 MG TABLET GT SCH (09:28)
[2022-01-09] MEDS: CHLORHEXIDINE GLUCONATE 15 ML UDC MM SCH ×2 (09:28→21:15)
[2022-01-09] MEDS: CYANOCOBALAMIN 500 MCG TABLET PO SCH (09:29)
[2022-01-09] MEDS: VITAMIN B COMP W-C 1 TAB TABLET GT SCH (09:33)
[2022-01-09] MEDS: PROSOURCE / PROSTAT (PYXIS) 30 ML UDC GT SCH ×2 (09:33→16:43)
[2022-01-09] MEDS: DAKINS QUARTER STRENGTH (0.125%) 480 ML BOTTLE TOP SCH (09:34)
[2022-01-09 11:37] LABS: EOSINOPHILS % (MANUAL) 11 % (0-4); LYMPHOCYTES % (MANUAL) 15 % (16-48); MONOCYTES % (MANUAL) 8 % (0-11.0); NEUTROPHILS % (MANUAL) 66 (42-76)
[2022-01-09 12:00] VITALS: BP 101/64
[2022-01-09] MEDS ORDERED: ALTEPLASE CATHFLO 2 MG/VIAL XX ONE (13:00)
--- NOTE | 2022-01-09 13:32 | NUR ---
HD catheter to Rt femoral not working, unable to aspirate blood to both arterial and venous port, Dr Elkins made aware with order to cath brynn ports and dwell overnight and try HD in am.
--- NOTE | 2022-01-09 13:50 | NUR ---
HD catheter activase done
[2022-01-09 16:00] VITALS: BP 101/55
--- NOTE | 2022-01-09 18:51 | NUR ---
RN CLOSING NOTE PATIENT IS RESTING COMFORTABLY IN BED AND REMAINED STABLE THROUGHOUT SHIFT. WITH TRACHEOSTOMY CONNECTED TO MECHANICAL VENTILATOR FOLLOWING PRESCRIBED SETTINGS. BREATHING UNLABORED AND NOT IN ANY FORM OF DISTRESS. G-TUBE INTACT AND PATENT. IV MIDLINE LOCK ON RIGHT UPPER ARM INTACT AND PATENT. LEFT FEMORAL HD CATHETER INTACT AND COVERED WITH DRY DRESSING. TURNED EVERY TWO HOURS. ORAL AND TRACHEAL SECRETIONS WERE SUCTIONED NEEDED. BED IS LOCKED IN LOWEST POSITION, 3 SIDE RAILS UP, CALL LIGHT WITHIN REACH. WILL ENDORSE TO ATTORNEY GENERAL NURSE.
--- NOTE | 2022-01-09 19:25 | NUR ---
RN NOTE PT IN BED, NONVERBAL, OBTUNDED. RESPIRATIONS EVEN/UNLABORED, VIA TRACH/VENT AND TOLERATING SETTINGS WELL. ON TELE MONITOR, READING SR, HR 95. IV SITE: ALEX ML INTACT/PATENT/FLUSHES WELL. GT IN PLACE, INTACT/PATENT, NO RESIDUAL NOTED. L-FEM HD CATH IN PLACE, WITH DRESSING C/D/I. PT IN NO ACUTE DISTRESS. SAFETY MEASURES IN PLACE. WILL CONT TO MONITOR.
[2022-01-09 20:00] VITALS: BP 113/68
[2022-01-10] VITALS: BP 115/81
[2022-01-10] MEDS: NEPRO 1,000 ML BOTTLE GT PRN (00:04)
[2022-01-10] MEDS: MIDODRINE HCL (5MG) 5 MG TABLET GT SCH ×3 (01:09→17:23)
[2022-01-10 04:00] VITALS: BP 108/70
[2022-01-10] MEDS: VALPROIC ACID 250 MG/5 ML UDC GT SCH ×3 (05:00→21:20)
--- NOTE | 2022-01-10 07:00 | NUR ---
RN NOTE NO CHANGE OF CONDITION DURING THE SHIFT. TOLERATING VENT SETTINGS WELL. SUCTIONED NEEDED WITH SMALL AMOUNT OF SECRETIONS. NO RESPIRATORY DISTRESS NOTED. GTF NEPRO @70ML/HR TOLERATING WELL. NO N/V NOTED. TELE MONITOR, READING SR 90'S. PT IN NO ACUTE DISTRESS. SAFETY MEASURES MAINTAINED.
[2022-01-10 07:24] LABS: BASOPHILS # (AUTO) 0.2 K/uL (0.0-0.2); BASOPHILS % (AUTO) 1.9 % (0.0-2.0); EOSINOPHILS % (AUTO) 11.3 % (0.0-6.0); HEMATOCRIT 27 % (39-51); HEMOGLOBIN 8.5 g/dL (13.5-17.5); LYMPHOCYTES # (AUTO) 1.3 K/uL (0.8-4.8); LYMPHOCYTES % (AUTO) 10.2 % (20.0-44.0); MEAN CORPUSCULAR HGB CONC 31 g/dl (31.0-36.0); MEAN CORPUSCULAR VOLUME 96 fL (80-96); MONOCYTES # (AUTO) 2.4 K/uL (0.1-1.30); MONOCYTES % (AUTO) 18.8 % (2.0-12.0); NEUTROPHILS # (AUTO) 7.4 K/uL (1.8-8.9); NEUTROPHILS % (AUTO) 57.8 % (43.0-81.0); PLATELET COUNT (AUTO) 390 K/uL (150-450); RED BLOOD CELL COUNT(AUTO) 2.84 MIL/uL (4.5-6.0); WHITE BLOOD COUNT (AUTO) 12.8 K/uL (4.3-11.0)
[2022-01-10 08:00] VITALS: BP 116/53
[2022-01-10 08:03] LABS: ALBUMIN 1.9 g/dL (3.4-5.0); BILIRUBIN,TOTAL 0.5 mg/dL (0.2-1.0); CALCIUM, SERUM 8.9 mg/dL (8.5-10.1); MAGNESIUM 3.7 mg/dL (1.8-2.4); POTASSIUM 4.9 mmol/L (3.5-5.1); TOTAL PROTEIN, SERUM 6.9 g/dL (6.4-8.2)
[2022-01-10] MEDS: METOPROLOL TARTRATE 25 MG TABLET GT SCH (08:15)
--- NOTE | 2022-01-10 08:15 | NUR ---
RN NOTE PATIENT TO RECEIVE HD THIS AM. BP MEDS HELD.
[2022-01-10 08:32] LABS: CREATININE 8.4 mg/dL (0.6-1.3); PHOSPHORUS 8.7 mg/dL (2.5-4.9)
[2022-01-10] MEDS: CHLORHEXIDINE GLUCONATE 15 ML UDC MM SCH ×2 (08:55→21:20)
[2022-01-10] MEDS: NEUTRA PHOS 1 POWD.PACKET GT SCH (08:55)
[2022-01-10] MEDS: VIT B CMPLX 3/FA/VIT C/BIOTIN 1 TAB TABLET GT SCH (08:55)
[2022-01-10] MEDS: PROSOURCE / PROSTAT (PYXIS) 30 ML UDC GT SCH ×2 (08:55→17:23)
[2022-01-10] MEDS: VITAMIN B COMP W-C 1 TAB TABLET GT SCH (08:55)
[2022-01-10] MEDS: CYANOCOBALAMIN 500 MCG TABLET PO SCH (08:56)
[2022-01-10] MEDS: TRAMADOL HCL 50 MG TABLET GT SCH (08:56)
[2022-01-10] MEDS: FAMOTIDINE (20 MG) 20 MG TABLET GT SCH (08:57)
[2022-01-10] MEDS: ASCORBIC ACID 500 MG TABLET NG SCH (08:57)
[2022-01-10] MEDS: THERAHONEY GEL 1.5 OZ TUBE TP SCH (08:58)
[2022-01-10] MEDS: DAKINS QUARTER STRENGTH (0.125%) 480 ML BOTTLE TOP SCH (08:58)
--- NOTE | 2022-01-10 09:16 | NUR ---
RN NOTE ONGOING HD. IV ABX HELD UNTIL AFTER.
[2022-01-10 12:00] VITALS: BP 106/68
[2022-01-10] MEDS: MEROPENEM 500 MG in IV NS 0.9% 50 ML IV SCH ×2 (12:00→21:20)
[2022-01-10 16:00] VITALS: BP 101/64
[2022-01-10 20:00] VITALS: BP 105/72
--- NOTE | 2022-01-10 22:18 | NUR ---
HEAD KILN OPERATOR OPENING NOTE PT RECEIVED IN BED, OBTUNDED, NON-VERBAL, OPENS EYES. NOTED TO HAVE PORTEX #8, AC 15, TV 500, FIO2 40%, PEEP 5; CURRENT O2SAT OF 94% WITH NO S/S OF RESP DISTRESS, NO SOB OR COUGH, NON-LABORED AND EQUAL BREATHING. ATTACHED TO EXTERNAL MONITOR, SR WITH CURRENT HR OF 94. IV ACCESS ON ALEX MIDLINE INTACT AND PATENT, FLUSHES EASILY WITH NO RESISTANCE, CURRENTLY HAS NS TKO RUNNING AT 10 ML/HR. GT DRESSING C/D/I. NOTED THAT GT FEEDING NEPRO WILL BE TURNED BACK ON AT 0000; PT HAS 30 ML RESIDUAL. RIGHT FEMORAL PERMCATH INTACT AND PATENT. BED IN LOWEST POSITION, CALL LIGHT WITHIN REACH, SIDE RAILS UP X3. WILL CONTINUE TO MONITOR THROUGHOUT THE NIGHT.
[2022-01-11] VITALS: BP 103/69
[2022-01-11] MEDS: NEPRO 1,000 ML BOTTLE GT PRN (00:47)
[2022-01-11] MEDS: MIDODRINE HCL (5MG) 5 MG TABLET GT SCH ×3 (01:06→16:33)
[2022-01-11 04:00] VITALS: BP 107/77
[2022-01-11] MEDS: VALPROIC ACID 250 MG/5 ML UDC GT SCH ×3 (05:35→21:43)
[2022-01-11 07:19] LABS: BASOPHILS # (AUTO) 0.1 K/uL (0.0-0.2); BASOPHILS % (AUTO) 0.6 % (0.0-2.0); EOSINOPHILS % (AUTO) 11.3 % (0.0-6.0); HEMATOCRIT 31 % (39-51); HEMOGLOBIN 9.6 g/dL (13.5-17.5); LYMPHOCYTES # (AUTO) 1.3 K/uL (0.8-4.8); LYMPHOCYTES % (AUTO) 9.7 % (20.0-44.0); MEAN CORPUSCULAR HGB CONC 31 g/dl (31.0-36.0); MEAN CORPUSCULAR VOLUME 96 fL (80-96); MONOCYTES # (AUTO) 2.5 K/uL (0.1-1.30); NEUTROPHILS # (AUTO) 7.9 K/uL (1.8-8.9); NEUTROPHILS % (AUTO) 59.4 % (43.0-81.0); PLATELET COUNT (AUTO) 362 K/uL (150-450); RED BLOOD CELL COUNT(AUTO) 3.24 MIL/uL (4.5-6.0); WHITE BLOOD COUNT (AUTO) 13.3 K/uL (4.3-11.0)
[2022-01-11 07:39] LABS: ALBUMIN 2.1 g/dL (3.4-5.0); BILIRUBIN,TOTAL 0.6 mg/dL (0.2-1.0); CREATININE 6.8 mg/dL (0.6-1.3); MAGNESIUM 3.3 mg/dL (1.8-2.4); PHOSPHORUS 7.5 mg/dL (2.5-4.9); POTASSIUM 4.6 mmol/L (3.5-5.1); TOTAL PROTEIN, SERUM 7.6 g/dL (6.4-8.2)
--- NOTE | 2022-01-11 07:39 | NUR ---
RN OPENING NOTE PATIENT RECEIVED IN BED, OBTUNDED, NON-VERBAL, OPENS EYES. NOTED TO HAVE PORTEX #8, AC 15, TV 500, FIO2 40%, PEEP 5; NO S/S OF RESP DISTRESS, NO SOB OR COUGH, NON-LABORED AND EQUAL BREATHING. ATTACHED TO EXTERNAL MONITOR, SR. IV ACCESS ON ALEX MIDLINE INTACT AND PATENT, FLUSHES EASILY WITH NO RESISTANCE. GT DRESSING C/D/I. NOTED THAT GT FEEDING NEPRO. RIGHT FEMORAL PERMCATH INTACT AND PATENT. BED IN LOWEST POSITION, CALL LIGHT WITHIN REACH, SIDE RAILS UP X3. WILL CONTINUE PLAN OF CARE AND ANTICIPATE NEEDS.
--- NOTE | 2022-01-11 07:42 | NUR ---
SAMPLE PASTER CLOSING NOTE PT REMAINS IN BED, OBTUNDED, NON-VERBAL, OPENS EYES. PT REMAINS ON SAME VENT SETTINGS WITH NO CHANGES; O2SAT RANGED FROM 97%-100%; NO S/S OF RESP DISTRESS, NON-LABORED AND EQUAL BREATHING, NO COUGH OR SOB. ATTACHED TO EXTERNAL MONITOR, SR THROUGHOUT THE WHOLE NIGHT WITH HR RANGING FROM 80-94. ALEX MIDLINE INTACT AND PATENT, FLUSHES EASILY WITH NO RESISTANCE. GT DRESSING C/D/I. NEPRO TURNED ON AT 0000. RIGHT FEMORAL PERMCATH INTACT AND PATENT. ALL DUE MEDS ADMINISTERED DURING THE NIGHT. PERFORMED WOUND CARE. BED IN LOWEST POSITION, CALL LIGHT WITHIN REACH, SIDE RAILS UP X3. WILL ENDORSE TO DAYSHIFT NURSE TO CONTINUE CARE.
[2022-01-11 08:00] VITALS: BP 114/66
[2022-01-11] MEDS: CHLORHEXIDINE GLUCONATE 15 ML UDC MM SCH ×2 (09:22→21:43)
[2022-01-11] MEDS: NEUTRA PHOS 1 POWD.PACKET GT SCH (09:22)
[2022-01-11] MEDS: VIT B CMPLX 3/FA/VIT C/BIOTIN 1 TAB TABLET GT SCH (09:23)
[2022-01-11] MEDS: TRAMADOL HCL 50 MG TABLET GT SCH (09:23)
[2022-01-11] MEDS: FAMOTIDINE (20 MG) 20 MG TABLET GT SCH (09:23)
[2022-01-11] MEDS: ASCORBIC ACID 500 MG TABLET NG SCH (09:23)
[2022-01-11] MEDS: VITAMIN B COMP W-C 1 TAB TABLET GT SCH (09:23)
[2022-01-11] MEDS: CYANOCOBALAMIN 500 MCG TABLET PO SCH (09:24)
[2022-01-11] MEDS: METOPROLOL TARTRATE 25 MG TABLET GT SCH (09:27)
[2022-01-11] MEDS: THERAHONEY GEL 1.5 OZ TUBE TP SCH (09:28)
[2022-01-11] MEDS: DAKINS QUARTER STRENGTH (0.125%) 480 ML BOTTLE TOP SCH (09:28)
[2022-01-11] MEDS: PROSOURCE / PROSTAT (PYXIS) 30 ML UDC GT SCH ×2 (09:30→16:33)
[2022-01-11] MEDS: MEROPENEM 500 MG in IV NS 0.9% 50 ML IV SCH ×2 (09:30→21:42)
[2022-01-11 10:30] LABS: EOSINOPHILS % (MANUAL) 10 % (0-4); LYMPHOCYTES % (MANUAL) 9 % (16-48); MONOCYTES % (MANUAL) 20 % (0-11.0); NEUTROPHILS % (MANUAL) 61 (42-76)
[2022-01-11 12:00] VITALS: BP 110/71
[2022-01-11] MEDS ORDERED: LIDOCAINE 1%-EPI 1:100,000 20 ML VIAL TP ONE (12:30)
[2022-01-11] MEDS ORDERED: SILVER NITRATE APPLICATOR 1 EA BOX TP SCH (12:30)
[2022-01-11] MEDS: ALBUMIN 25% 25 GM in PREMIX 1 EA IV PRN (14:59)
[2022-01-11 16:00] VITALS: BP 151/59
[2022-01-11] MEDS: EPOETIN ALFA (10,000 UNIT) 10,000 UNIT/ML VIAL SQ SCH (16:32)
--- NOTE | 2022-01-11 17:38 | NUR ---
RT NOTE Patient received on mechanical vent with ordered settings, alarms on and audible. Sx moderate thick pale yellow secretions via trach. Trach tube in place, patent, and secured with trach tie. Tolerate hhn tx well. Ambu bag and back up trach by the bedside. Vent plugged in to red outlet. Stable at this time with no distress.
--- NOTE | 2022-01-11 18:32 | NUR ---
RN CLOSING NOTE PATIENT IN BED, OBTUNDED, NON-VERBAL, OPENS EYES. NOTED TO HAVE PORTEX #8, AC 15, TV 500, FIO2 40%, PEEP 5; NO S/S OF RESP DISTRESS, NO SOB OR COUGH, NON-LABORED AND EQUAL BREATHING. ATTACHED TO EXTERNAL MONITOR, SR. IV ACCESS ON ALEX MIDLINE INTACT AND PATENT, FLUSHES EASILY WITH NO RESISTANCE. GT DRESSING C/D/I. NOTED THAT GT FEEDING NEPRO, OFF SINCE 1600 PER SCHEDULE. RIGHT FEMORAL PERMCATH INTACT AND PATENT. BED IN LOWEST POSITION, CALL LIGHT WITHIN REACH, SIDE RAILS UP X3. WILL ENDORSE TO NIGHTSHIFT RN FOR CONTINUATION OF CARE.
[2022-01-11 20:00] VITALS: BP 117/73
[2022-01-12] VITALS: BP 106/59
[2022-01-12] MEDS: MIDODRINE HCL (5MG) 5 MG TABLET GT SCH ×3 (01:32→17:23)
[2022-01-12 04:00] VITALS: BP 109/72
[2022-01-12] MEDS: VALPROIC ACID 250 MG/5 ML UDC GT SCH ×3 (05:13→20:41)
[2022-01-12] MEDS: NEPRO 1,000 ML BOTTLE GT PRN (05:59)
--- NOTE | 2022-01-12 06:49 | NUR ---
RN CLOSING NOTES, PATIENT IN BED, OBTUNDED, NON-VERBAL, OPENS EYES. ON TRACH TO VENT SETTING AND PT TOLERATED WELL. PORTEX #8, AC 15, TV 500, FIO2 40%, PEEP 5. O2 SAT 100%. IV ACCESS ON ALEX MIDLINE INTACT AND PATENT, RT FEMORAL PERMA CATH INTACT AND PATENT. COVERED WITH DRY DRESSING. GTUBE FEEDING WELL TOLERATED WELL. 70CC/HR X16 HUORS. NO FACIAL GRIMACING NOTED. NO ACUTE DISTRESS. ALL DUE MEDS GIVEN ORDERED. ALL SAFETY MEASURES IN PLACE. BED IN LOWEST POSITION AND LOCKED. SIDE RAILS UP X3, PLACE CALL LIGHT WITHIN REACH, WILL ENDORSE TO MORNING SHIFT NURSE.
[2022-01-12 07:38] LABS: BASOPHILS # (AUTO) 0.1 K/uL (0.0-0.2); BASOPHILS % (AUTO) 0.7 % (0.0-2.0); EOSINOPHILS % (AUTO) 15.2 % (0.0-6.0); HEMATOCRIT 29 % (39-51); HEMOGLOBIN 8.9 g/dL (13.5-17.5); LYMPHOCYTES # (AUTO) 1.4 K/uL (0.8-4.8); LYMPHOCYTES % (AUTO) 12.8 % (20.0-44.0); MEAN CORPUSCULAR HGB CONC 31 g/dl (31.0-36.0); MEAN CORPUSCULAR VOLUME 96 fL (80-96); MONOCYTES # (AUTO) 1.6 K/uL (0.1-1.30); MONOCYTES % (AUTO) 14.3 % (2.0-12.0); NEUTROPHILS # (AUTO) 6.4 K/uL (1.8-8.9); PLATELET COUNT (AUTO) 310 K/uL (150-450); RED BLOOD CELL COUNT(AUTO) 3.04 MIL/uL (4.5-6.0); WHITE BLOOD COUNT (AUTO) 11.3 K/uL (4.3-11.0)
[2022-01-12 07:59] LABS: ALBUMIN 2.3 g/dL (3.4-5.0); BILIRUBIN,TOTAL 0.5 mg/dL (0.2-1.0); CREATININE 6.2 mg/dL (0.6-1.3); MAGNESIUM 3.1 mg/dL (1.8-2.4); PHOSPHORUS 7.2 mg/dL (2.5-4.9); POTASSIUM 4.6 mmol/L (3.5-5.1); TOTAL PROTEIN, SERUM 7.4 g/dL (6.4-8.2)
[2022-01-12 08:00] VITALS: BP 113/72
[2022-01-12] MEDS: MEROPENEM 500 MG in IV NS 0.9% 50 ML IV SCH ×2 (08:24→20:41)
[2022-01-12] MEDS: CHLORHEXIDINE GLUCONATE 15 ML UDC MM SCH ×2 (08:44→20:41)
[2022-01-12] MEDS: TRAMADOL HCL 50 MG TABLET GT SCH (08:44)
[2022-01-12] MEDS: ASCORBIC ACID 500 MG TABLET NG SCH (08:45)
[2022-01-12] MEDS: CYANOCOBALAMIN 500 MCG TABLET PO SCH (08:45)
[2022-01-12] MEDS: NEUTRA PHOS 1 POWD.PACKET GT SCH (08:46)
[2022-01-12] MEDS: VIT B CMPLX 3/FA/VIT C/BIOTIN 1 TAB TABLET GT SCH (08:46)
[2022-01-12] MEDS: VITAMIN B COMP W-C 1 TAB TABLET GT SCH (08:46)
[2022-01-12] MEDS: FAMOTIDINE (20 MG) 20 MG TABLET GT SCH (08:46)
[2022-01-12] MEDS: METOPROLOL TARTRATE 25 MG TABLET GT SCH (08:46)
[2022-01-12] MEDS: PROSOURCE / PROSTAT (PYXIS) 30 ML UDC GT SCH ×2 (09:01→17:23)
[2022-01-12] MEDS: THERAHONEY GEL 1.5 OZ TUBE TP SCH (09:07)
[2022-01-12] MEDS: DAKINS QUARTER STRENGTH (0.125%) 480 ML BOTTLE TOP SCH (09:09)
[2022-01-12 12:00] VITALS: BP 131/66
[2022-01-12 16:00] VITALS: BP 122/81
--- NOTE | 2022-01-12 17:58 | NUR ---
RT NOTE Patient received on mechanical vent with ordered settings, alarms on and audible.Suctioned moderate, thick, pale yellow secretions via trach. Ambu bag and back up trach by the bedside. Trach tube in place, patent, and secured with trach tie. Vent plugged in to the red outlet. No distress and patient stable at this time.
--- NOTE | 2022-01-12 19:30 | NUR ---
[facility] STAFF MEMBER OPENING NOTE RECEIVED PATIENT IN BED, OBTUNDED. PATIENT IS ON TRACH TO VENT SETTINGS, TOLERATING WELL WITH NO RESP DISTRESS NOTED AT THIS TIME. TRACH P#8, AC:18, TV 400, FIO2 40, PEEP, 5 O2 SATING AT 100%. ALEX MIDLINE NOTED, INTACT AND PATENT, RIGHT FEMORAL PERMA-CATH. GTF RUNNING NEPRO AT 70 CC/HR. PT IS FOR DISCHARGE. AWAITING AMBULANCE FOR TRANSFER TO [facility]. MEANWHILE, ALL SAFETY MEASURES STILL IN PLACE. BED IN LOWEST POSITION AND WHEELS LOCKED. SIDE RAILS UP X3, CALL LIGHT WITHIN REACH. WILL CONTINUE TO MONITOR THE PT.
--- NOTE | 2022-01-12 19:49 | NUR ---
RN NOTE PT FOR D/C TO [facility]. AWAITING FOR P/U AMBULANCE. WILL ENDORSE TO NEXT SHIFT. PT STABLE THIS SHIFT. PT S/P WOUND DEBRIDEMENT ON R HIP. NO ACTIVE BLEEDING NOTED.
[2022-01-12 20:00] VITALS: BP 114/78
--- NOTE | 2022-01-12 21:05 | NUR ---
RN NOTE Called the ambulance company responsible for picking up pt, all discharge papers ready. They said the trip was denied due to level of service problem. line was cut in the middle of conversation. will call again.
--- NOTE | 2022-01-12 21:30 | NUR ---
RN NOTE CALLED THE AMBULANCE COMPANY AGAIN. TALKED TO ADELA. CHARGE NURSE PEDRO TOOK OVER THE CONVERSATION. [employer] SPECIALIST TIME IS STILL PENDING PER ADELA. SAID HE WILL CALL BACK WHEN HE'S READY.
--- NOTE | 2022-01-12 22:30 | NUR ---
RN NOTE INFORMED DR. SUN THAT PT HAS NOT BEEN DISCHARGED YET AND STILL AWAITING FOLLOW UP FROM AMBULANCE COMPANY. WILL CONTINUE CARE FOR THE PT.
--- NOTE | 2022-01-12 23:30 | NUR ---
RN NOTE DUE MEDS GIVEN. KEPT PT CLEAN AND DRY. STILL WIAITNG FROM CALLBACK FROM THE AMBULANCE COMPANY. GRETCHEN SUN MADE AWARE.
[2022-01-13] VITALS: BP 115/51
[2022-01-13] MEDS: MIDODRINE HCL (5MG) 5 MG TABLET GT SCH ×2 (01:25→09:00)
[2022-01-13] MEDS: NEPRO 1,000 ML BOTTLE GT PRN (03:29)
[2022-01-13 04:00] VITALS: BP 110/83
--- NOTE | 2022-01-13 04:01 | NUR ---
RN NOTE AM/PM CARE DONE. NEEDS ATTENDED TO.
[2022-01-13] MEDS: VALPROIC ACID 250 MG/5 ML UDC GT SCH (04:09)
--- NOTE | 2022-01-13 07:36 | NUR ---
GUNITE NOZZLE OPERATOR CLOSING NOTE NO SIGNIFICANT CHANGES THROUGHOUT THE SHIFT. ALL VS WNL. DUE MEDS GIVEN. WOUND CARE DONE. ALL SAFETY MEASURES MAINTAINED: CALL LIGHT WITHIN REACH. SR UP X 3. WILL ENDORSE TO AM SHIFT NURSE FOR DENNIS.
[2022-01-13 08:00] VITALS: BP 108/72
--- NOTE | 2022-01-13 08:07 | NUR ---
RN NOTE PT TO START HD. NOT IN DISTRESS. TRACH IN PLACE WITH VENT SETTINGS TOLERATED WELL. WILL CONT TO MONITOR.
[2022-01-13] MEDS: METOPROLOL TARTRATE 25 MG TABLET GT SCH (09:00)
[2022-01-13] MEDS: NEUTRA PHOS 1 POWD.PACKET GT SCH (10:49)
[2022-01-13] MEDS: TRAMADOL HCL 50 MG TABLET GT SCH (10:49)
[2022-01-13] MEDS: FAMOTIDINE (20 MG) 20 MG TABLET GT SCH (10:49)
[2022-01-13] MEDS: CYANOCOBALAMIN 500 MCG TABLET PO SCH (10:50)
[2022-01-13] MEDS: CHLORHEXIDINE GLUCONATE 15 ML UDC MM SCH (10:50)
[2022-01-13] MEDS: ASCORBIC ACID 500 MG TABLET NG SCH (10:50)
[2022-01-13] MEDS: PROSOURCE / PROSTAT (PYXIS) 30 ML UDC GT SCH (10:55)
[2022-01-13] MEDS: ALBUMIN 25% 25 GM in PREMIX 1 EA IV PRN (10:55)
[2022-01-13] MEDS: VIT B CMPLX 3/FA/VIT C/BIOTIN 1 TAB TABLET GT SCH (10:55)
[2022-01-13] MEDS: VITAMIN B COMP W-C 1 TAB TABLET GT SCH (10:55)
[2022-01-13] MEDS: THERAHONEY GEL 1.5 OZ TUBE TP SCH (11:03)
[2022-01-13] MEDS: DAKINS QUARTER STRENGTH (0.125%) 480 ML BOTTLE TOP SCH (11:03)
--- NOTE | 2022-01-13 11:57 | NUR ---
RN NOTE PT D/C TO [facility] APRIL [facility]. P/U BY AMBULANCE PERSONNEL AND RT. PT IN STABLE CONDITION. NOT IN DISTRESS. DEBBIE PAZ D/C. GAVE REPORT TO LON TOLEDO.
[2022-01-13 12:00] VITALS: BP 101/70
== END 2022-01-13 14:46 | DRG 951 ==
LOC: ER 13:52 → TELE1 20:44
PROVIDERS: ADMIT Nurse Practitioner Acute Care; ATTEND Student in an Organized Health Care Education/Training Program
PROC: 5A1955Z Respiratory Ventilation, Greater than 96 Consecutive Hours (ICD-10-PCS; principal; 2022-01-04)
PROC: 5A1D70Z Performance of Urinary Filtration, Intermittent, Less than 6 Hours Per Day (ICD-10-PCS; 2022-01-04)
PROC: 05H533Z Insertion of Infusion Device into Right Subclavian Vein, Percutaneous Approach (ICD-10-PCS; 2022-01-05)
PROC: B546ZZA Ultrasonography of Right Subclavian Vein, Guidance (ICD-10-PCS; 2022-01-05)
PROC: 0KBN0ZZ Excision of Right Hip Muscle, Open Approach (ICD-10-PCS; 2022-01-06)
PROC: 0KBP0ZZ Excision of Left Hip Muscle, Open Approach (ICD-10-PCS; 2022-01-06)
PROC: 0W993ZZ Drainage of Right Pleural Cavity, Percutaneous Approach (ICD-10-PCS; 2022-01-08)
PROC: 0JBR0ZZ Excision of Left Foot Subcutaneous Tissue and Fascia, Open Approach (ICD-10-PCS; 2022-01-08)
PROC: 0KBP0ZZ Excision of Left Hip Muscle, Open Approach (ICD-10-PCS; 2022-01-12)
PROC: 0KBN0ZZ Excision of Right Hip Muscle, Open Approach (ICD-10-PCS; 2022-01-12)
DX: J15.6 Pneumonia due to other Gram-negative bacteria (principal); G93.40 Encephalopathy, unspecified; G93.49 Other encephalopathy; E43 Unspecified severe protein-calorie malnutrition; L89.314 Pressure ulcer of right buttock, stage 4; J90 Pleural effusion, not elsewhere classified; J44.0 Chronic obstructive pulmonary disease with (acute) lower respiratory infection; L89.324 Pressure ulcer of left buttock, stage 4; D68.59 Other primary thrombophilia; E11.22 Type 2 diabetes mellitus with diabetic chronic kidney disease; E11.69 Type 2 diabetes mellitus with other specified complication; J96.10 Chronic respiratory failure, unspecified whether with hypoxia or hypercapnia; N18.6 End stage renal disease; Z93.0 Tracheostomy status; Z99.11 Dependence on respirator [ventilator] status; D63.8 Anemia in other chronic diseases classified elsewhere; E11.40 Type 2 diabetes mellitus with diabetic neuropathy, unspecified; E44.0 Moderate protein-calorie malnutrition; E83.39 Other disorders of phosphorus metabolism; E88.09 Other disorders of plasma-protein metabolism, not elsewhere classified; L89.629 Pressure ulcer of left heel, unspecified stage; M24.561 Contracture, right knee; M24.562 Contracture, left knee; Z79.4 Long term (current) use of insulin; Z93.1 Gastrostomy status; I12.0 Hypertensive chronic kidney disease with stage 5 chronic kidney disease or end stage renal disease; E11.621 Type 2 diabetes mellitus with foot ulcer; I69.354 Hemiplegia and hemiparesis following cerebral infarction affecting left non-dominant side; R13.10 Dysphagia, unspecified; Z74.01 Bed confinement status; Z99.2 Dependence on renal dialysis; Z20.822 Contact with and (suspected) exposure to COVID-19; Z74.09 Other reduced mobility; Z68.21 Body mass index [BMI] 21.0-21.9, adult; L97.428 Non-pressure chronic ulcer of left heel and midfoot with other specified severity; E11.622 Type 2 diabetes mellitus with other skin ulcer; L97.329 Non-pressure chronic ulcer of left ankle with unspecified severity
CPT/HCPCS: 31720; 36415; 71045-TC; 76770-TC; 80048-TC; 80053-TC; 80076-TC; 80202-TC; 83605-TC; 83735-TC; 84100-TC; 84484-TC; 85025-TC; 85730-TC; 86480; 86706; 87040-TC; 87070-TC; 87075-TC; 87081-TC; 87102-TC; 87340; 87899; 89051-TC; 90935-TC; 94002-TC; 94003-TC; 94760-TC; 94762-TC; 94799-TC; A4216; A6253; A6403; A7526; C9803; G0378; J0885; J1644; J2185; J2997; J3370; J3490; J7030; J7050; J7060; P9047